=== PATIENT | female | born 1940 | race Caucasian/White ===

== ENCOUNTER 2019-01-02 13:27 | Emergency (ER) | payer MEDICARE, OTHER, SELFPAY ==
[2019-01-02 13:29] VITALS: BP 146/77; PULSE 86; RESP 16; TEMP 36.3; O2SAT 96; BMI 21.5
--- NOTE | 2019-01-02 13:48 | CT_ITS ---
STUDY: CT ABDOMEN AND PELVIS WITHOUT CONTRAST REASON FOR EXAM: Female, 78 years old. Abdominal pain. Bloody diarrhea. Patient has a history of colon cancer and ulcerative colitis. RADIATION DOSAGE (If Supplied By Facility): CTDIvol = ( 6.07 ) mGy, DLP = ( 311.92 ) mGycm TECHNIQUE: Transaxial images were obtained from the dome of the diaphragm to the symphysis pubis without oral contrast, and without intravenous contrast. Sagittal and coronal images were reconstructed. Individualized dose optimization techniques were used for this CT. COMPARISON: None. FINDINGS: Mild degree of increased linear markings at the lung bases suggestive of underlying atelectasis and/or possible linear scarring. The visualized portions of the heart are within normal limits. Normal liver. The patient is status post cholecystectomy. There are multiple benign calcified granulomata of the spleen. Normal pancreas. Normal bilateral adrenal glands. Normal right kidney. There is a 5.8 mm calculus in the lower pole calyx of the left kidney. Normal visualized stomach. Normal small intestine. There is diffuse circumferential wall thickening of the transverse colon extending from the region of the hepatic flexure to the splenic flexure suggestive of colitis. The patient is status post right hemicolectomy. The appendix is visualized and appears normal. Normal abdominal aorta. Normal inferior vena cava. Normal retroperitoneum. Normal urinary bladder. Normal abdominal wall. There are diffuse degenerative changes of the visualized lumbar spine. CT/Abdomen/Pelvis without Cont IMPRESSION: Status post cholecystectomy and right hemicolectomy. Findings suggestive of colitis involving the transverse colon. 5.8 mm nonobstructive calculus in the lower pole calyx of the left kidney. Electronically Signed: Ja Bailey, at 14:40 EDT , Service support ,
--- NOTE | 2019-01-02 13:56 | ED.DCSUM_ITS ---
- ER Visit Summary Date of Service: 01/02/19 Chief Complaint: Abdominal pain History of Present Illness: The patient is a 78 F who presents with abdominal pain that began yesterday. Patient states she noted some blood in her stools today. Patient describes her pain is cramping. Patient states her pain is diffuse. Patient admits to nausea but denies any vomiting. Patient states nothing makes her pain better or worse. Patient states she has noted some maroon stools. Patient denies any urinary complaints. Patient states she does have a history of ulcerative colitis. Physical Examination: Vital signs are stable. Patient is afebrile. Patient is in no acute distress. Oral mucosa is pink and moist. Neck is supple. Trachea is midline. Heart was regular rate and rhythm. Lungs are clear and equal bilateral. Abdomen is soft. Bowel sounds are normal. There is diffuse tenderness. There is no rebound or guarding noted. Cranial nerves II through XII are intact. There are no focal motor or sensory deficits noted. Test Results: CBC and conference of metabolic profile were within normal limits. Urinalysis showed leukocyte esterase of [address] but was [address] normal[address] scan of the abdomen and pelvis shows colitis of the transverse colon the hepatic flexure to the splenic flexure. Emergency Department Course and Treatment: Patient was given IV fluids and Zofran. Patient was given a prescription for prednisone. Patient states she does not need any antiemetics at this time. Patient was instructed to follow-up with primary care physician in 5-7 days. Patient was instructed on signs and symptoms which should prompt return to the emergency department. Patient and family understood and were agreeable with the plan. All questions were answered. Disposition: Discharge home Impression: Colitis, history of ulcerative colitis This note was generated with [employer] dictation software. It may contain incorrect words, spelling, and punctuation that were not noted in review of the chart prior to signing ED Disposition - Plan for ED Patient: Disposition: Home or Assisted Living Diagnosis: Colitis Instructions: ED Colitis Ulcerative Prescriptions: Prednisone [Deltasone] 60 mg PO DAILY #15 tab Referrals: [facility] Doctor,Out of [NON-STAFF] - 5-7 Days
[2019-01-02 14:02] LABS: Bacteria 0 SEEN /hpf (None Seen); Mucous, Urine 0 SEEN /hpf (<or=2+)
[2019-01-02 14:05] LABS: Absolute Lymphocyte Count 1.96 X10^3/ul (0.83-4.51); Basophil# 0.07 X10^3/uL; Basophil% 0.8 % (0-1); Eosinophil# 0.07 X10^3/uL; Eosinophils% 0.8 % (0-5); Hematocrit 47.3 % (37-47); Hemoglobin 14.9 g/dl (12.0-15.0); Lymphocyte # 1.96 X10^3/ul (4.0); Lymphocyte % 22.2 % (19-41); Mean Corp Hgb Conc 31.5 g/gl (32-36); Mean Corpuscular Hgb 29.3 pg (27.0-32.0); Mean Corpuscular Volume 93.1 fL (81-99); Mean Platelet Vol. 11.6 fl (6.2-12.0); Monocyte# 0.74 X10^3/uL; Monocyte% 8.4 % (0-10); Neutrophil # 5.96 X10^3/uL (2.7-7.7); Neutrophil % 67.5 % (47-70); Platelet Count 203 K/mm3 (150-450); RBC Distribution Width CV 13.9 % (11.6-14.6); RBC Distribution Width SD 46.2 fl (35.1-43.9); Red Blood Count 5.08 M/mm3 (4.2-5.4); White Blood Count 8.8 K/mm3 (4.4-11.0)
[2019-01-02 14:08] LABS: POSITIVE COUNT NO; POSITIVE DIFFERENTIAL NO; POSITIVE MORPHOLOGY NO
[2019-01-02 14:17] LABS: Color, Urine Yellow (Yellow); Glucose, Dipstick Normal (Normal); Ketone-Dipstick Negative (Negative); Leukocyte Esterase-Dipstick 100 /ul (Negative); Nitrite-Dipstick Negative (Negative); Occult Blood-Urine 10 /ul (Negative); Protein-Dipstick Negative (Negative); Urine Bilirubin Dipstick Negative (Negative); Urine Clarity Clear (Clear); Urine Urobilinogen Normal (Normal); Urine pH 6.5 (5.0 - 8.0)
[2019-01-02 14:19] LABS: Squamous Epithelial Cells - UA 0-5 SEEN /hpf (5-10)
[2019-01-02 14:20] LABS: ALB/GLOB Ratio 0.9 RATIO (0.9-2.4); AST(SGOT) 18 U/L (15-37); Alanine Aminotransfer ALT/SGPT 17 U/L (13-56); Albumin, Serum 3.6 g/dL (3.2-5.0); Alkaline Phosphatase 110 U/L (45-117); Anion Gap 3 (5-15); BUN 10 mg/dL (7-18); Calcium,Total 8.5 mg/dL (8.5-10.1); Chloride 107 mmol/L (98-107); Creatinine, Serum 0.91 mg/dL (0.55-1.02); EST Glomerular Filtration Rate 64 mL/min (>60); Est Glom Filt Rate - Afr Amer 77 mL/min (>60); Estimated Creatinine Clearance 44.71 ml/min; Globulin 3.8 g/dL (2.2-4.2); Glucose 87 mg/dL (74-106); Lipase 161 U/L (73-393); Potassium 3.9 mmol/L (3.5-5.1); Protein, Total 7.4 g/dL (6.4-8.2); Red Blood Cells-Urine 0-5 SEEN /hpf (0-5); Sodium Level 141 mmol/L (136-145); White Blood Cells 0-5 SEEN /hpf (0-5)
[2019-01-02 14:21] LABS: Prothrombin Time (Protime)PT. 12.6 SECONDS (11.7-14.9)
[2019-01-02 14:22] LABS: Partial Thromboplast Time 25.6 Seconds (24.1-36.2)
[2019-01-02 15:17] VITALS: PULSE 62; RESP 14; O2SAT 96
== END 2019-01-02 15:18 | disposition home or self-care (01) ==
PROVIDERS: Emergency Provider Emergency Medicine
DX: K51.90 Ulcerative colitis, unspecified, without complications (principal)
CPT/HCPCS: 74176; 80053; 81001; 83690; 85025; 85610; 85730; 99283; J7030

== ENCOUNTER 2019-01-09 17:22 | Emergency (ER) | payer MEDICARE, OTHER, SELFPAY ==
[2019-01-09 17:24] VITALS: BP 146/85; PULSE 92; RESP 16; TEMP 36.7; O2SAT 94; BMI 21.4
--- NOTE | 2019-01-09 17:57 | ED.DCSUM_ITS ---
- ER Visit Summary Date of Service: 01/09/19 Chief Complaint: Rectal bleeding History of Present Illness: The patient is a 78 F history of ulcerative colitis and prior GI bleeds. Also prior colon CA with prior appendectomy, cholecystectomy and hemicolectomy. Patient was in the ER 1-2 weeks ago was diagnosed with colitis and discharged to home. She is on no blood thinners. Is having left lower quadrant pain which she has had and had a CAT scan for a week or so ago. And is now having rectal bleeding with small clots. No hematemesis. No melena. Prior history of bleeding with her ulcerative colitis. She denies being on any type of blood thinner. Physical Examination: Older female no acute distress. Vital signs are stable and afebrile. HEENT exam unremarkable. Lungs clear to auscultation bilaterally. Heart regular rhythm rate in 90s. No murmur. Chest nontender. A bdomen soft. Nondistended. Normal bowel sounds. No peritoneal signs. She does have mild left lower quadrant tenderness. No hernias or masses. No signs of obstruction. Patient is moving all 4 extremities. No edema. Neurologically she is awake and alert with no focal motor deficits. Test Results: CBC shows a white count of 18 it is elevated but she just recently came off oral steroids for her colitis. Hemoglobin of 14 which is her baseline. Potassium 3.2 normal creatinine and gap. PT/INR normal with INR 1. I did review her prior CAT scan results from 01/02/2019. Emergency Department Course and Treatment: Patient with reported colitis with a history of ulcerative colitis. Also now with lower GI bleed. Repeat exam at 1940 patient is doing well. I went over her test results with her. Family and her comfortable being discharged home continue her current therapy. They understand if the bleeding gets worse or she develops black stool she needs to return. Treatment Plan: Follow-up as an outpatient your primary care physician. Continue current medications. Disposition: Discharge Impression: Lower GI bleed History of ulcerative colitis This note was generated with [employer] dictation software. It may contain incorrect words, spelling, and punctuation that were not noted in review of the chart prior to signing ED Disposition - Plan for ED Patient: Referrals: Care Physician,No Primary [Primary Care Provider] -
[2019-01-09 18:15] LABS: Absolute Lymphocyte Count 2.52 X10^3/ul (0.83-4.51); Absolute Neutrophil Count 14.3 X10^3/uL (2.0-7.7); Basophil# 0.05 X10^3/uL; Basophil% 0.3 % (0-1); Eosinophil# 0.15 X10^3/uL; Eosinophils% 0.8 % (0-5); Hematocrit 45.3 % (37-47); Hemoglobin 14.8 g/dl (12.0-15.0); Lymphocyte # 2.52 X10^3/ul (4.0); Lymphocyte % 13.5 % (19-41); Mean Corp Hgb Conc 32.7 g/gl (32-36); Mean Corpuscular Hgb 29.6 pg (27.0-32.0); Mean Corpuscular Volume 90.6 fL (81-99); Mean Platelet Vol. 11.5 fl (6.2-12.0); Monocyte# 1.63 X10^3/uL; Monocyte% 8.7 % (0-10); Neutrophil # 14.26 X10^3/uL (2.7-7.7); Neutrophil % 76.1 % (47-70); Platelet Count 232 K/mm3 (150-450); RBC Distribution Width CV 13.9 % (11.6-14.6); RBC Distribution Width SD 45.6 fl (35.1-43.9); White Blood Count 18.7 K/mm3 (4.4-11.0)
[2019-01-09 18:17] LABS: Differential Indicated SCAN CRITERIA MET; POSITIVE COUNT NO; POSITIVE DIFFERENTIAL YES; POSITIVE MORPHOLOGY NO
[2019-01-09 18:22] LABS: Prothrombin Time (Protime)PT. 12.8 SECONDS (11.7-14.9)
[2019-01-09 18:30] LABS: Anion Gap 7 (5-15); BUN 13 mg/dL (7-18); BUN/Creat Ratio 13.9 RATIO (10-20); Calcium,Total 8.4 mg/dL (8.5-10.1); Chloride 106 mmol/L (98-107); Creatinine, Serum 0.93 mg/dL (0.55-1.02); EST Glomerular Filtration Rate 62 mL/min (>60); Est Glom Filt Rate - Afr Amer 75 mL/min (>60); Estimated Creatinine Clearance 43.75 ml/min; Glucose 104 mg/dL (74-106); Potassium 3.2 mmol/L (3.5-5.1); Sodium Level 143 mmol/L (136-145)
[2019-01-09 18:45] LABS: Differential Comment SCANNED
[2019-01-09 19:38] VITALS: BP 139/72; PULSE 80; RESP 14; O2SAT 94
--- NOTE | 2019-01-09 19:47 | ED.DEP ---
ED Disposition - Plan for ED Patient: Disposition: Home or Assisted Living Instructions: ED Hematochezia Stable Referrals: Care Physician,No Primary [Primary Care Provider] - 3-5 Days if not improving Salvatore Hugo MD [STAFF PHYSICIAN] - As Needed Additional Instructions: Follow-up your primary care physician. Return to the emergency department if much heavier bleeding or black stool.
== END 2019-01-09 19:52 | disposition home or self-care (01) ==
PROVIDERS: Emergency Provider Emergency Medicine
DX: K92.2 Gastrointestinal hemorrhage, unspecified (principal); K51.90 Ulcerative colitis, unspecified, without complications; Z79.899 Other long term (current) drug therapy; Z85.038 Personal history of other malignant neoplasm of large intestine; Z87.442 Personal history of urinary calculi; Z90.49 Acquired absence of other specified parts of digestive tract
CPT/HCPCS: 80048; 85025; 85610; 86850; 86900; 99283; A4216

== ENCOUNTER 2019-01-15 15:31 | Emergency (ER) | payer MEDICARE, OTHER, SELFPAY ==
[2019-01-15 15:34] VITALS: BP 111/61; PULSE 77; PULSE 80; RESP 14; RESP 17; TEMP 37.1; O2SAT 96; O2SAT 97; BMI 22.2
--- NOTE | 2019-01-15 15:47 | CT_ITS ---
STUDY: CT ABDOMEN AND PELVIS WITH CONTRAST REASON FOR EXAM: Female, 78 years old. Nausea and vomiting RADIATION DOSAGE (If Supplied By Facility): CTDIvol = ( 12.21 ) mGy, DLP = ( 509.35 ) mGycm TECHNIQUE: Transaxial images were obtained from the dome of the diaphragm to the symphysis pubis without oral contrast. 100 IV/Oral Isovue 300 was administered. Sagittal and coronal images were reconstructed. Individualized dose optimization techniques were used for this CT. COMPARISON: 01/02/2019 FINDINGS: There are chronic interstitial fibrotic changes of the lung bases. The visualized portions of the heart are within normal limits. Normal liver. There are surgical clips in the gallbladder fossa consistent with a prior cholecystectomy. There are multiple benign calcified granulomata of the spleen. Normal pancreas. Normal bilateral adrenal glands. Normal right kidney. Normal left kidney. Stable nonobstructing stone in the lower pole the left kidney. Normal visualized stomach. Normal small intestine. There are multiple colonic diverticula consistent with diverticulosis. There is non-visualization of the appendix. There is diffuse atherosclerotic calcification of the abdominal aorta, without a demonstrated aneurysm. Normal inferior vena cava. Normal retroperitoneum. Normal urinary bladder. Uterus is still present, the endometrium cannot be accurately evaluated with CT. There are dilated vessels around the periphery of the uterus suggesting pelvic congestion. No suspicious cystic mass or free fluid. Normal abdominal wall. There are diffuse degenerative changes of the visualized lumbar spine, and pelvis CT/Abdomen/Pelvis WITH Contrast IMPRESSION: No suspicious solid organ abnormality, previous cholecystectomy. Stable left nephrolithiasis Chronic diverticulosis Uterus is still present, endometrium cannot be accurately evaluated with CT. Dilated pelvic vessels noted around the periphery of the uterus. Degenerative bony changes Electronically Signed: Mando López MD at 18:13 EDT , Service support ,
[2019-01-15] MEDS: 0.9% Normal Saline 1,000 ML 125 ML IV (16:14)
[2019-01-15] MEDS: Morphine 4 MG/ML Syringe IV (16:14)
[2019-01-15] MEDS: Ondansetron 4 MG/2 ML Vial IV (16:14)
[2019-01-15 16:23] LABS: Bacteria 0 SEEN /hpf (None Seen); Mucous, Urine 0 SEEN /hpf (<or=2+); Red Blood Cells-Urine 0 SEEN /hpf (0-5); Squamous Epithelial Cells - UA 0 SEEN /hpf (5-10); White Blood Cells 0 SEEN /hpf (0-5)
[2019-01-15 16:26] LABS: Absolute Neutrophil Count 14.4 X10^3/uL (2.0-7.7); Basophil# 0.07 X10^3/uL; Basophil% 0.4 % (0-1); Eosinophil# 0.18 X10^3/uL; Hematocrit 40.8 % (37-47); Hemoglobin 13.2 g/dl (12.0-15.0); Lymphocyte % 11.2 % (19-41); Mean Corp Hgb Conc 32.4 g/gl (32-36); Mean Corpuscular Hgb 29.1 pg (27.0-32.0); Mean Corpuscular Volume 89.9 fL (81-99); Mean Platelet Vol. 10.9 fl (6.2-12.0); Monocyte# 1.12 X10^3/uL; Monocyte% 6.3 % (0-10); Neutrophil # 14.43 X10^3/uL (2.7-7.7); Neutrophil % 80.8 % (47-70); POSITIVE COUNT NO; POSITIVE DIFFERENTIAL NO; POSITIVE MORPHOLOGY NO; Platelet Count 241 K/mm3 (150-450); RBC Distribution Width CV 13.9 % (11.6-14.6); RBC Distribution Width SD 44.8 fl (35.1-43.9); Red Blood Count 4.54 M/mm3 (4.2-5.4); White Blood Count 17.9 K/mm3 (4.4-11.0)
[2019-01-15 16:27] LABS: Anion Gap 4 (5-15); BUN 7 mg/dL (7-18); BUN/Creat Ratio 9.2 RATIO (10-20); Calcium,Total 8.3 mg/dL (8.5-10.1); Chloride 106 mmol/L (98-107); Creatinine, Serum 0.76 mg/dL (0.55-1.02); EST Glomerular Filtration Rate 78 mL/min (>60); Est Glom Filt Rate - Afr Amer 95 mL/min (>60); Estimated Creatinine Clearance 40.68 ml/min; Glucose 92 mg/dL (74-106); Lipase 116 U/L (73-393); Potassium 3.7 mmol/L (3.5-5.1); Sodium Level 140 mmol/L (136-145)
[2019-01-15 17:15] LABS: Color, Urine Yellow (Yellow); Glucose, Dipstick Normal (Normal); Ketone-Dipstick 5 mg/dl (Negative); Leukocyte Esterase-Dipstick Negative /ul (Negative); Nitrite-Dipstick Negative (Negative); Occult Blood-Urine 50 /ul (Negative); Protein-Dipstick Negative (Negative); Specific Gravity, Urine 1.005 (1.002-1.030); Urine Bilirubin Dipstick Negative (Negative); Urine Clarity Clear (Clear); Urine Urobilinogen Normal (Normal)
[2019-01-15 17:52] VITALS: BP 151/76; PULSE 77; RESP 18; O2SAT 96
[2019-01-15 18:24] VITALS: BP 127/52; PULSE 77; RESP 18; O2SAT 96
--- NOTE | 2019-01-15 19:37 | ED.VISSUMM ---
- ER Visit Summary Date of Service: 01/15/19 Chief Complaint: [Abdominal pain] History of Present Illness: The patient is a 78 F [presents to the emergency department complaint of abdominal pain that started 2 weeks ago. Patient rates her pain as a 9 out of 10 and describes it as sharp stabbing into the left side of her abdomen. Patient states the pain is been relatively continuous. Patient also complains of blood in her stool that is been bright red and having about 6-7 episodes of loose to watery bloody stool. Patient has history of ulcerative colitis and she thinks she is having a flareup. This is her third visit to the emergency department in the last 2 weeks for the same complaint. Patient denies any fever. She denies any vomiting. On her initial visit she had a CT scan of the abdomen pelvis that showed colitis of the left side of the colon. Patient was started on steroids for a week which she finished about a week ago. Patient does not feel like the steroids helped her. Patient sees a trawl net maker in the [facility] by the name of Dr. Beard and she has not followed up with him. Patient denies urinary symptoms.] Physical Examination: [HEENT-PERRLA, EOMI. Cranial nerves II through XII grossly intact. TMs clear. Mucous membranes moist. No adenopathy. Cardiovascular-regular rate and rhythm without murmur or ectopy Lungs-clear to auscultation, chest wall stable without crepitus or subcu emphysema Abdomen-normoactive bowel sounds, soft. Patient has tenderness to palpation over the left lower quadrant with guarding. There is no rebound, rigidity, or perineal signs. Extremities-intact ?4, normal range of motion, normal pulses, atraumatic] Test Results: [CBC with differential obtained showed an elevated white count of 17.9, hemoglobin 13, hematocrit 41, platelets 241. Chemistries unremarkable. Urinalysis was unremarkable. Lactate was 1.0. CT scan of the abdomen and pelvis with IV and p.o. contrast showed diverticulosis and congestion of pelvic vessels otherwise there is no evidence of abscess or perforation or evidence of colitis on the study.] Emergency Department Course and Treatment: [Patient initially was medicated with morphine and Zofran she had good pain relief with that. I did discuss case with surgeon on-call Dr. Matthews who evaluated patient and recommended she follow-up with her trawl net maker. I discussed admitting her for pain control here versus transfer to another facility where she could have GI evaluation given that this is her third visit to the emergency department. Patient would prefer to be transferred to her trawl net maker in [facility]. [facility] was contacted and I discussed case with who was the hospitalist on-call and accepted transfer patient to their facility.] Treatment Plan: [Transfer] Disposition: [Transfer] Impression: [Abdominal pain Lower GI bleed Ulcerative colitis] This note was generated with [employer] dictation software. It may contain incorrect words, spelling, and punctuation that were not noted in review of the chart prior to signing ED Disposition - Plan for ED Patient: Referrals: Care Physician,No Primary [Primary Care Provider] -
--- NOTE | 2019-01-15 19:42 | ED.DCSUM_ITS ---
- ER Visit Summary Date of Service: 01/15/19 Chief Complaint: [Abdominal pain] History of Present Illness: The patient is a 78 F [presents to the emergency department complaint of abdominal pain that started 2 weeks ago. Patient rates her pain as a 9 out of 10 and describes it as sharp stabbing into the left side of her abdomen. Patient states the pain is been relatively continuous. Patient also complains of blood in her stool that is been bright red and having about 6-7 episodes of loose to watery bloody stool. Patient has history of ulcerative colitis and she thinks she is having a flareup. This is her third visit to the emergency department in the last 2 weeks for the same complaint. Patient denies any fever. She denies any vomiting. On her initial visit she had a CT scan of the abdomen pelvis that showed colitis of the left side of the colon. Patient was started on steroids for a week which she finished about a week ago. Patient does not feel like the steroids helped her. Patient sees a podiatric physician in the [facility] by the name of Dr. Beard and she has not followed up with him. Patient denies urinary symptoms.] Physical Examination: [HEENT-PERRLA, EOMI. Cranial nerves II through XII grossly intact. TMs clear. Mucous membranes moist. No adenopathy. Cardiovascular-regular rate and rhythm without murmur or ectopy Lungs-clear to auscultation, chest wall stable without crepitus or subcu emphysema Abdomen-normoactive bowel sounds, soft. Patient has tenderness to palpation over the left lower quadrant with guarding. There is no rebound, rigidity, or perineal signs. Extremities-intact ?4, normal range of motion, normal pulses, atraumatic] Test Results: [CBC with differential obtained showed an elevated white count of 17.9, hemoglobin 13, hematocrit 41, platelets 241. Chemistries unremarkable. Urinalysis was unremarkable. Lactate was 1.0. CT scan of the abdomen and pelvis with IV and p.o. contrast showed diverticulosis and congestion of pelvic vessels otherwise there is no evidence of abscess or perforation or evidence of colitis on the study.] Emergency Department Course and Treatment: [Patient initially was medicated with morphine and Zofran she had good pain relief with that. I did discuss case with surgeon on-call Dr. Matthews who evaluated patient and recommended she follow-up with her podiatric physician. I discussed admitting her for pain control here versus transfer to another facility where she could have GI evaluation given that this is her third visit to the emergency department. Patient would prefer to be transferred to her podiatric physician in [facility]. [facility] was contacted and I discussed case with who was the hospitalist on-call and accepted transfer patient to their facility.] Treatment Plan: [Transfer] Disposition: [Transfer] Impression: [Abdominal pain Lower GI bleed Ulcerative colitis] This note was generated with [employer] dictation software. It may contain incorrect words, spelling, and punctuation that were not noted in review of the chart prior to signing ED Disposition - Plan for ED Patient: Referrals: Care Physician,No Primary [Primary Care Provider] -
[2019-01-15 20:22] VITALS: BP 128/61; PULSE 76; RESP 16; O2SAT 97
[2019-01-15 22:05] VITALS: BP 129/72; PULSE 84; RESP 14; O2SAT 96
== END 2019-01-15 22:07 | disposition short-term general hospital (02) ==
PROVIDERS: Emergency Provider Emergency Medicine
DX: K51.90 Ulcerative colitis, unspecified, without complications (principal); K57.90 Diverticulosis of intestine, part unspecified, without perforation or abscess without bleeding
CPT/HCPCS: 74177; 80048; 81001; 83605; 83690; 85025; 86850; 86900; 96361; 96374; 96375; 99285; Q9967; A4216; J2405

== ENCOUNTER 2021-06-12 09:11 | Emergency (ER) | payer MEDICARE, OTHER, SELFPAY ==
[2021-06-12 09:13] VITALS: BP 119/64; PULSE 73; RESP 14; TEMP 36.9; O2SAT 98; BMI 19.1
--- NOTE | 2021-06-12 09:39 | CT_ITS ---
STUDY: CT ABDOMEN AND PELVIS WITH CONTRAST REASON FOR EXAM: Female, 81 years old. abdominal pain, blood in stool RADIATION DOSAGE (If Supplied By Facility): CTDIvol = ( 6.75 ) mGy, DLP = ( 321.5 ) mGycm TECHNIQUE: Transaxial images were obtained from the dome of the diaphragm to the symphysis pubis without oral contrast. IV 100mL Isovue-370 was administered. Sagittal and coronal images were reconstructed. Individualized dose optimization techniques were used for this CT. COMPARISON: 01/15/2019 FINDINGS: Some bibasilar linear scarring. The visualized portions of the heart are within normal limits. Normal liver. Normal gallbladder and extrahepatic biliary system. Normal spleen. Normal pancreas. Normal bilateral adrenal glands. Normal right kidney. Normal left kidney. Normal visualized stomach. Normal small intestine. Suture line at the rectosigmoid junction. There is non-visualization of the appendix. Normal abdominal aorta. Normal inferior vena cava. Normal retroperitoneum. Normal urinary bladder. Normal abdominal wall. Normal osseous structures. CT/Abdomen/Pelvis W IV Cont ONLY IMPRESSION: Normal enhanced CT of the abdomen and pelvis. Electronically Signed: Tone David MD at 12:09 EDT Tel , Service support ,
--- NOTE | 2021-06-12 09:42 | EDS_ITS ---
HPI HPI - GI History of Present Illness Chief Complaint: GI Bleed Detail of Chief Complaint: Abdominal pain and rectal bleeding that started 2 days ago Informant: patient Narrative Narrative: Patient presents to the emergency department complaint of abdominal pain, diarrhea, and blood in her stools. Patient states that her symptoms started 2 days ago. Patient is here visiting her son. She has history of irritable bowel syndrome and history of diverticulitis. Patient states her last colonoscopy was about 2 years ago and she had some polyps. Patient states that this morning she passed some larger clots and had bright red blood in her watery stool. Patient states she oftentimes has watery stools and oftentimes will have blood in her stool. She denies any fevers. Patient has had her Covid vaccine. She denies any cough. She denies body aches. She denies recent antibiotic usage. Patient denies recent travel. [facility] Medical History (Updated 06/12/21 @ 13:[address] Mirella Gomez DO) IBS (irritable bowel syndrome) Home Medications mesalamine 2.4 g PO DAILY 01/02/19 [History Last Taken Unknown] dicyclomine 20 mg PO BID PRN #10 tab 06/12/21 [Rx Last Taken Unknown] Allergy/AdvReac Type Severity Reaction Status Date / Time amoxicillin [From Augmentin] AdvReac Vomiting Verified 06/12/21 09:17 clavulanic acid AdvReac Vomiting Verified 06/12/21 09:17 [From Augmentin] fexofenadine [From Rose] AdvReac Other Verified 06/12/21 09:17 hydrocodone AdvReac Other Verified 06/12/21 09:17 Sulfa (Sulfonamide AdvReac Rash Verified 06/12/21 09:17 Antibiotics) Social History Smoking Status: Never smoker ROS ROS ED Constitutional Constitutional ED: Reports systems reviewed and no addt'l complaints, except as documented; Denies body ache(s), change in weight or chills Eyes Eyes: Denies acute decrease in peripheral vision, change in vision, double vision or loss of vision ENT ENT ED: Reports none; Denies ear pain, lip swelling, loss taste/smell, neck pain, otalgia or sore throat Cardiovascular Cardiovascular: Reports none; Denies abdominal pain, chest pain with activity, leg edema, lightheadedness, palpitations, rapid heart rate or syncope Respiratory/Chest Respiratory/Chest: Reports none; Denies change in mental status, dry cough, dyspnea, hemoptysis, shortness of breath at rest or shortness of breath with exertion Gastrointestinal Gastrointestinal: Reports none, diarrhea, nausea and other Details: Bright red blood in stool with clots ; Denies abdominal pain, change in stool character, hematemesis, hematochezia, melena, rectal bleeding or vomiting Genitourinary Genitourinary ED: Reports none; Denies abdominal discomfort, anuria, dysuria, genital pain or polyuria Musculoskeletal Musculoskeletal: Reports none; Denies arthralgias, back pain, difficulty walking, extremity pain, muscle weakness or myalgias Integumentary Reports none; Denies abscess or rash Neurologic Neurologic: Reports none; Denies abnormal gait, confusion, focal weakness, frequent falls, headache(s), loss of vision, numbness, paresthesias, radicular pain, vertigo or weakness Psychiatric Psychiatric: Reports systems reviewed and no addt'l complaints, except as documented and none; Denies behavioral changes, confusion, difficulty concentrating, hallucinations, suicidal ideation, tactile hallucinations or visual hallucinations Endocrine Endocrinology: Denies none, cold intolerance, excessive sweating, fatigue or heat intolerance Hematologic/Lymphatic Hematologic/Lymphatic: Reports none; Denies anemia, easy bleeding or easy bruising Allergic/Immunologic Allergic/Immunologic ED: Denies as per HPI, none, lip swelling, mouth swelling, throat swelling, tongue swelling or hives EXAM Physical Exam Const Vital Signs: 06/12/21 09:13 06/12/21 10:25 06/12/21 11:48 Temperature 98.4 F 97.3 F L Temperature Source Temporal Temporal Pulse Rate 73 64 Respiratory Rate 14 12 Blood Pressure 119/64 132/56 H Blood Pressure Mean 82 81 Pulse Ox 98 95 100 Oxygen Delivery Method Room Air Nasal Cannula Nasal Cannula Oxygen Flow Rate (L/min) 2 2 06/12/21 13:06 06/12/21 13:18 Temperature Temperature Source Pulse Rate 68 Respiratory Rate 22 H Blood Pressure 108/54 L Blood Pressure Mean 72 Pulse Ox 100 98 Oxygen Delivery Method Nasal Cannula Room Air Oxygen Flow Rate (L/min) 2 Positive well nourished and well developed General Appearance ED: well developed and NAD HEENT Reports TM's clear and moist mucous membranes normocephalic and atraumatic; Negative for trauma or tenderness Tympanic Membrane ED: Yes TM's clear Eyes PERRL and EOMs intact bilaterally General Eye ED: Negative for pale conjunctiva or scleral icterus Neck no lymphadenopathy, supple and no JVD General: Negative for tenderness Chest Wall inspection of chest normal and palpation of chest normal Chest: Negative for tenderness Resp normal respiratory effort and clear to auscultation bilaterally Effort and Inspection: Negative for respiratory distress or pain with movement Auscultation: Negative for rhonchi, wheezes or diminished lung sounds Cardio regular rate, regular rhythm, S1 normal heart sound, S2 normal heart sound and no murmurs Peripheral Pulses: pulses 2+ throughout GI normal to inspection, nondistended, normoactive bowel sounds, soft to palpation, non-distended and no masses GI Narrative: Patient has diffuse tenderness palpation but seems to localize more to the left lower quadrant. She got some mild guarding. There is no rebound, rigidity, or peritoneal signs. Back/Spine no CVA tenderness and no thoracic nor lumbar tenderness Extremity normal to inspection General Extremety ED: Negative for edema General Extremity: Negative for edema Neuro oriented x3, CN's II-XII intact bilaterally, no sensory deficits noted and gait normal Sensorium / Orientation: awake, alert, oriented to person, oriented to place and oriented to time Motor Exam: strength 5/5 throughout and strength abnormal Psych mental status grossly normal Skin no rashes or lesions noted and no wounds MDM MDM MDM Narrative Medical decision making narrative: Patient's work-up relatively unremarkable in the department. Etiology of her diarrhea is unclear although may be related to IBS. On digital rectal exam here the stool was brown and there was no gross blood present. There were no hemorrhoids. CT scan of her abdomen pelvis was unremarkable. At this point I feel he can be safely discharged to home with instructions to follow-up with her marketing operations specialist or family doctor within next 3 to 5 days. Patient to return if persistent heavy bleeding or passing clots. Worsening pain or fever or condition should worsen in any way. Lab Data Attestation: I reviewed the patient's lab results. Labs: Laboratory Results - last 24 hr 06/12/21 06/12/21 06/12/21 10:03 10:03 10:03 WBC 13.9 H RBC 4.68 Hgb 13.5 Hct 41.2 MCV 88.0 MCH 28.8 MCHC 32.8 RDW Std Deviation 42.6 RDW Coeff of Rhonda 13.2 Plt Count 277 MPV 10.5 Immature Gran % (Auto) 0.600 Neut % (Auto) 77.5 H Lymph % (Auto) 14.0 L [place] % (Auto) 6.7 Eos % (Auto) 0.6 Baso % (Auto) 0.6 Absolute Neuts (auto) 10.7 H Absolute Lymphs (auto) 1.94 Nucleated RBC % 0 Sodium 137 Potassium 3.7 Chloride 105 Carbon Dioxide 27.0 Anion Gap 5 BUN 8 Creatinine 0.82 Estim Creat Clear Calc 43.80 Est GFR (MDRD) Af Amer 86 Est GFR (MDRD) Non-Af 71 BUN/Creatinine Ratio 9.7 L Glucose 87 Lactic Acid Calcium 8.5 Urine Color Urine Clarity Urine pH Ur Specific [place] Urine Protein Urine Glucose (UA) Urine Ketones Urine Occult Blood Urine Nitrite Urine Bilirubin Urine Urobilinogen Ur Leukocyte Esterase Urine RBC Urine WBC Ur Squamous Epith Cells Urine Bacteria Urine Mucus Blood Type O POSITIVE Antibody Screen NEGATIVE 06/12/21 06/12/21 10:03 11:40 WBC RBC Hgb Hct MCV MCH MCHC RDW Std Deviation RDW Coeff of Rhonda Plt Count MPV Immature Gran % (Auto) Neut % (Auto) Lymph % (Auto) [place] % (Auto) Eos % (Auto) Baso % (Auto) Absolute Neuts (auto) Absolute Lymphs (auto) Nucleated RBC % Sodium Potassium Chloride Carbon Dioxide Anion Gap BUN Creatinine Estim Creat Clear Calc Est GFR (MDRD) Af Amer Est GFR (MDRD) Non-Af BUN/Creatinine Ratio Glucose Lactic Acid 1.1 Calcium Urine Color Yellow Urine Clarity Sl. Cloudy Urine pH 7.0 Ur Specific [place] 1.010 Urine Protein 30 H Urine Glucose (UA) Normal Urine Ketones 150 A* Urine Occult Blood 250 H Urine Nitrite Negative Urine Bilirubin Negative Urine Urobilinogen Normal Ur Leukocyte Esterase 25 H Urine RBC 25-50 SEEN Urine WBC 0-5 SEEN Ur Squamous Epith Cells 0-5 SEEN Urine Bacteria RARE Urine Mucus 0 SEEN Blood Type Antibody Screen Radiography Diagnostic Testing: Radiology Impression Abdomen/Pelvis CT 06/12/21 09:39 IMPRESSION: Normal enhanced CT of the abdomen and pelvis. Electronically Signed: Tone David MD at 12:09 EDT Tel , Service support , Discharge Plan Triage Chief Complaint: GI Bleed Other Complaint: Nausea/Vomiting/Diarrhea ED Provider: Mirella Gomez Dx/Rx/DC Orders Clinical Impression: Diarrhea, GI bleed Instructions: ED Diarrhea, Unknown Cause, ED Lower GI Bleeding (Stable) Prescriptions: New dicyclomine 20 mg tablet 20 mg PO BID PRN (Reason: Cramping) Qty: 10 RF: 0 No Action mesalamine 1.2 GM tablet 2.4 g PO DAILY RF: 0 Primary Care Provider: Care Physician,No Primary Referrals: Care Physician,No Primary [Primary Care Provider] - Activity Restrictions/Additional Instructions: Follow-up with your primary care physician or marketing operations specialist within the next 3 to 5 days. Disposition Disposition: Home, Self Care
[2021-06-12] MEDS: 0.9% Normal Saline 1,000 ML 125 ML IV (10:19)
[2021-06-12 10:25] VITALS: O2SAT 75; O2SAT 95
[2021-06-12 10:25] LABS: Absolute Lymphocyte Count 1.94 X10^3/uL (0.83-4.51); Absolute Neutrophil Count 10.7 X10^3/uL (2.0-7.7); Basophil# 0.08 X10^3/uL; Basophil% 0.6 % (0-1); Eosinophil# 0.09 X10^3/uL; Eosinophils% 0.6 % (0-5); Hematocrit 41.2 % (37-47); Hemoglobin 13.5 g/dL (12.0-15.0); Lymphocyte # 1.94 X10^3/ul (0.83-4.51); Mean Corp Hgb Conc 32.8 g/dL (32-36); Mean Corpuscular Hgb 28.8 pg (27.0-32.0); Mean Platelet Vol. 10.5 fl (6.2-12.0); Monocyte# 0.93 X10^3/uL; Monocyte% 6.7 % (0-10); NRBC Flagged by Analyzer 0 % (0-5); Neutrophil # 10.72 X10^3/uL (2.7-7.7); Neutrophil % 77.5 % (47-70); Platelet Count 277 K/mm3 (150-450); RBC Distribution Width CV 13.2 % (11.6-14.6); RBC Distribution Width SD 42.6 fl (35.1-43.9); Red Blood Count 4.68 M/mm3 (4.2-5.4); White Blood Count 13.9 K/mm3 (4.4-11.0)
[2021-06-12 10:41] LABS: Anion Gap 5 (5-15); BUN 8 mg/dL (7-18); BUN/Creat Ratio 9.7 RATIO (10-20); Calcium,Total 8.5 mg/dL (8.5-10.1); Chloride 105 mmol/L (98-107); Creatinine, Serum 0.82 mg/dL (0.55-1.02); EST Glomerular Filtration Rate 71 mL/min (>60); Est Glom Filt Rate - Afr Amer 86 mL/min (>60); Glucose 87 mg/dL (74-106); Potassium 3.7 mmol/L (3.5-5.1); Sodium Level 137 mmol/L (136-145)
[2021-06-12 10:48] LABS: Lactic Acid 1.1 mmol/L (0.4-1.9)
[2021-06-12 11:48] VITALS: BP 132/56; PULSE 64; RESP 12; TEMP 36.3; O2SAT 100
[2021-06-12 11:50] LABS: Mucous, Urine 0 SEEN /hpf (<or=2+)
[2021-06-12 11:51] LABS: Color, Urine Yellow (Yellow); Glucose, Dipstick Normal (Normal); Leukocyte Esterase-Dipstick 25 /ul (Negative); Nitrite-Dipstick Negative (Negative); Occult Blood-Urine 250 /ul (Negative); Protein-Dipstick 30 mg/dl (Negative); Urine Bilirubin Dipstick Negative (Negative); Urine Clarity Sl. Cloudy (Clear); Urine Urobilinogen Normal (Normal)
[2021-06-12 11:56] LABS: Ketone-Dipstick 150 mg/dl (Negative)
[2021-06-12 12:03] LABS: Bacteria RARE /hpf (None Seen); Red Blood Cells-Urine 25-50 SEEN /hpf (0-5); Squamous Epithelial Cells - UA 0-5 SEEN /hpf (5-10); White Blood Cells 0-5 SEEN /hpf (0-5)
[2021-06-12 13:06] VITALS: BP 108/54; PULSE 68; RESP 22; O2SAT 100
[2021-06-12 13:18] VITALS: O2SAT 98
[2021-06-12 14:13] VITALS: BP 111/60; PULSE 87; RESP 12; O2SAT 97
== END 2021-06-12 14:13 | disposition home or self-care (01) ==
PROVIDERS: Emergency Provider Emergency Medicine
DX: K92.2 Gastrointestinal hemorrhage, unspecified (principal); R19.7 Diarrhea, unspecified; K58.9 Irritable bowel syndrome, unspecified; Z87.19 Personal history of other diseases of the digestive system
CPT/HCPCS: 74177; 80048; 81001; 83605; 85025; 86850; 86900; 86901; 96360; 96361; 99285; J7030; Q9967; A4216

== ENCOUNTER 2021-08-10 14:11 | Observation (INO) | payer MEDICARE, OTHER, SELFPAY ==
[2021-08-10] VITALS (8 sets, daily range): BP systolic 110–125; BP diastolic 47–90; PULSE 67–104; RESP 14–20; TEMP 36.2–36.9; O2SAT 95–99; BMI 20.5
--- NOTE | 2021-08-10 15:26 | RAD_ITS ---
STUDY: X-RAY CHEST REASON FOR EXAM: Female, 81 years old. syncope/mediastinal eval TECHNIQUE: Single AP portable view of the chest. COMPARISON: None. FINDINGS: The lungs are clear and expanded. There is no demonstrated pleural abnormality. Normal size heart. Normal mediastinum and stephanie. Normal visualized pulmonary arteries. Normal visualized aortic arch and descending thoracic aorta. Normal visualized thoracic spine. Normal visualized ribs, clavicles, and shoulders. There is no demonstrated abnormality of the visualized soft tissue structures of the upper abdomen. RAD/Chest 1 View (Portable) IMPRESSION: Normal x-ray examination of the chest. Electronically Signed: Freda Dotson MD at 16:28 EDT Tel , Service support ,
--- NOTE | 2021-08-10 15:26 | CT_ITS ---
EXAM: CT ABDOMEN AND PELVIS WITHOUT INTRAVENOUS CONTRAST CLINICAL INDICATION: LUQ pain, syncope TECHNIQUE: Helically acquired images were obtained of the abdomen and pelvis without intravenous contrast. This CT exam was performed using one or more of the following dose reduction techniques: automated exposure control, adjustment of the mA and/or kV according to patient size, and/or use of iterative reconstruction technique. This report was created using [employer] report generation technology. COMPARISON: 06/12/2021. FINDINGS: LOWER THORAX: Unremarkable. Lung bases are clear. No cardiomegaly. No significant pericardial effusion. ABDOMEN: LIVER: Unremarkable. Homogeneous. GALLBLADDER AND BILE DUCTS: Unremarkable. No calcified gallstones. No gallbladder distention or wall edema. No intra- or extrahepatic biliary ductal dilation. PANCREAS: Unremarkable. No focal cystic mass. SPLEEN: Multiple splenic granulomata. The spleen is otherwise unremarkable. ADRENALS: Unremarkable. No nodules. KIDNEYS AND URETERS: Unremarkable. Normal renal size and position. No hydronephrosis. STOMACH AND BOWEL: Unremarkable. No stomach or bowel distention. No focal inflammatory change. Prior rectal anastomosis. PELVIS: APPENDIX: No evidence of acute appendicitis. BLADDER: Unremarkable. REPRODUCTIVE: Unremarkable as visualized. No mass. ABDOMEN and PELVIS: INTRAPERITONEAL SPACE: Unremarkable. No ascites or other fluid collection. No free air. BONES/JOINTS: Unremarkable. No suspicious lytic or blastic abnormality. SOFT TISSUES: Unremarkable. No discrete abdominal or pelvic wall hernia. VASCULATURE: Unremarkable. Abdominal aorta is normal in caliber. LYMPH NODES: Shotty mesenteric adenopathy. CT/Abdomen/Pelvis without Cont IMPRESSION: 1. No acute findings. 2. Old granulomatous disease. 3. Shotty adenopathy. Electronically Signed: Freda Dotson MD at 16:50 EDT Tel , Service support ,
--- NOTE | 2021-08-10 15:27 | EKG12_ITS ---
Test Reason : SYNCOPE Blood Pressure : / mmHG Vent. Rate : 064 BPM Atrial Rate : 064 BPM P-R Int : 142 ms QRS Dur : 062 ms QT Int : 428 ms P-R-T Axes : 048 055 106 degrees QTc Int : 441 ms Normal sinus rhythm Low voltage QRS (Limb Leads) Septal infarct , age undetermined Abnormal ECG Confirmed by LUCIANA MCCONNELL, KELLEN ([id number]), makeup editor GAYATRI OROZCO ([id number]) on 08/12/2021 8:27:01 AM Referred By: SHANNON Confirmed By:KELLEN CHOWDHURY MD
--- NOTE | 2021-08-10 15:30 | EX.ED.DYSGE1 ---
HPI History of Present Illness Chief Complaint: Syncope Informant: patient Onset/Context/Timing Onset: Hours (2) Context: Gradual Onset Timing: Intermittent (once) and Lasts (brief) Quality: lightheaded --> syncope Current Severity: Gone Maximum Severity: Severe Worsened by: nothing in particular Relieved by: time Associated Symptoms Associated Symptoms: malaise now and LUQ abd pain Narrative Narrative: Patient was in her home, she states she was not sure exactly what she was doing at the time, maybe folding laundry, nothing very exertional, she started feeling lightheaded, she went to sit down on the couch as it continuously progressed and she passed out, woke up lying on the couch. No fall or injury. She now feels malaised and has left upper quadrant abdominal pain which she gets not infrequently due to irritable bowel syndrome for which she is on medication. She has no other medical problems. Family states she has had vagal reactions in the past, unknown if they have had obvious triggers or not. Patient denies have any abdominal pain or GI symptoms prior to passing out. [facility] Medical History History of colon cancer IBS (irritable bowel syndrome) Home Medications mesalamine 2.4 g PO DAILY 01/02/19 [History Last Taken 08/09/21] Allergy/AdvReac Type Severity Reaction Status Date / Time amoxicillin [From Augmentin] AdvReac Vomiting Verified 08/10/21 15:14 clavulanic acid AdvReac Vomiting Verified 08/10/21 15:14 [From Augmentin] fexofenadine [From Rose] AdvReac Other Verified 08/10/21 15:14 hydrocodone AdvReac Other Verified 08/10/21 15:14 Sulfa (Sulfonamide AdvReac Rash Verified 08/10/21 15:14 Antibiotics) Surgical History (Updated 08/10/21 @ 15:16 by Maritza Charles) H/O colectomy Social History Smoking Status: Never smoker ROS ROS ED Constitutional Constitutional ED: Reports as per HPI and malaise; Denies chills or fever(s) Eyes Eyes: Denies change in vision or diplopia ENT ENT ED: Denies rhinorrhea or sore throat Cardiovascular Cardiovascular: Denies chest pain or palpitations Respiratory/Chest Respiratory/Chest: Denies cough or dyspnea Gastrointestinal Gastrointestinal: Reports abdominal pain; Denies diarrhea, nausea or vomiting Genitourinary Genitourinary ED: Denies dysuria or hematuria Musculoskeletal Musculoskeletal: Denies back pain or neck pain Integumentary Denies abscess or rash Neurologic Neurologic: Denies headache(s), paresthesias or weakness Psychiatric Psychiatric: Denies anxiety or suicidal thoughts EXAM Physical Exam Const Vital Signs: 08/10/21 14:13 08/10/21 15:15 08/10/21 17:06 Temperature 97.1 F L Temperature Source Temporal Pulse Rate 68 71 Respiratory Rate 18 14 Respiratory Effort Normal Respiratory Pattern Normal Blood Pressure 120/47 L 125/58 H Blood Pressure Mean 71 80 Pulse Ox 99 95 Oxygen Delivery Method Room Air Room Air Positive well nourished and well developed General Appearance ED: well developed and NAD HEENT Reports moist mucous membranes normocephalic and atraumatic Eyes PERRL and EOMs intact bilaterally Neck full ROM and supple Resp normal respiratory effort and clear to auscultation bilaterally Cardio regular rate, regular rhythm and no murmurs GI non-distended GI Narrative: Tenderness epigastrium and into left upper quadrant, and left mid abdomen. No other areas of tenderness. No pulsatile mass palpable. Good pulses in the feet. No guarding or rebound. Auscultation: normoactive bowel sounds Palpation: soft Back/Spine no CVA tenderness General Back: other FROM Extremity normal to inspection General Extremety ED: Negative for edema, pulses abnormal or tenderness General Extremity: Negative for edema or pulses abnormal Neuro oriented x3, CN's II-XII intact bilaterally and no sensory deficits noted Sensorium / Orientation: awake and alert Motor Exam: strength 5/5 throughout Skin no rashes or lesions noted and no wounds MDM MDM MDM Narrative Medical decision making narrative: Work-up shows a leukocytosis with no objective signs of infection, and her D-dimer is significantly elevated, which was performed to screen for pulmonary embolus as cause for her unexplained syncope. CT of the abdomen/pelvis was obtained given her abdominal pain, there is no evidence of AAA or any other acute abnormality, and CT angiography the chest is negative for pulmonary embolus. Given her lack of thoracic symptoms, I think this is likely accurate. Her EKG and troponin are normal/nonacute, and she had no telemetry events. Plan will be for admission to observation. Lab Data Attestation: I reviewed the patient's lab results. Labs: Laboratory Results - last 24 hr 08/10/21 08/10/21 08/10/21 15:00 15:38 15:38 WBC 18.1 H RBC 4.43 Hgb 12.4 Hct 40.0 MCV 90.3 MCH 28.0 MCHC 31.0 L RDW Std Deviation 44.8 H RDW Coeff of Rhonda 13.5 Plt Count 324 MPV 9.9 Immature Gran % (Auto) 0.400 Neut % (Auto) 82.5 H Lymph % (Auto) 10.0 L [place] % (Auto) 6.0 Eos % (Auto) 0.5 Baso % (Auto) 0.6 Absolute Neuts (auto) 14.9 H Absolute Lymphs (auto) 1.81 Nucleated RBC % 0 D-Dimer Quant (PE/DVT) 2.77 H* Sodium Potassium Chloride Carbon Dioxide Anion Gap BUN Creatinine Estim Creat Clear Calc Est GFR (MDRD) Af Amer Est GFR (MDRD) Non-Af BUN/Creatinine Ratio Glucose Calcium Total Bilirubin AST ALT Alkaline Phosphatase Troponin I High Sens Total Protein Albumin Globulin Albumin/Globulin Ratio Urine Color Yellow Urine Clarity Clear Urine pH 7.0 Ur Specific [place] 1.010 Urine Protein 30 H Urine Glucose (UA) Normal Urine Ketones Negative Urine Occult Blood 25 H Urine Nitrite Negative Urine Bilirubin Negative Urine Urobilinogen Normal Ur Leukocyte Esterase 100 H Urine RBC 0 SEEN Urine WBC 0-5 SEEN Ur Squamous Epith Cells 0 SEEN Urine Bacteria 0 SEEN Urine Mucus 0 SEEN 08/10/21 15:38 WBC RBC Hgb Hct MCV MCH MCHC RDW Std Deviation RDW Coeff of Rhonda Plt Count MPV Immature Gran % (Auto) Neut % (Auto) Lymph % (Auto) [place] % (Auto) Eos % (Auto) Baso % (Auto) Absolute Neuts (auto) Absolute Lymphs (auto) Nucleated RBC % D-Dimer Quant (PE/DVT) Sodium 141 Potassium 4.1 Chloride 110 H Carbon Dioxide 27.0 Anion Gap 4 L BUN 7 Creatinine 0.77 Estim Creat Clear Calc 38.56 Est GFR (MDRD) Af Amer 93 Est GFR (MDRD) Non-Af 77 BUN/Creatinine Ratio 9.1 L Glucose 95 Calcium 8.0 L Total Bilirubin 0.40 AST 12 L ALT 9 L Alkaline Phosphatase 103 Troponin I High Sens 7 Total Protein 6.5 Albumin 2.5 L Globulin 4.0 Albumin/Globulin Ratio 0.6 L Urine Color Urine Clarity Urine pH Ur Specific [place] Urine Protein Urine Glucose (UA) Urine Ketones Urine Occult Blood Urine Nitrite Urine Bilirubin Urine Urobilinogen Ur Leukocyte Esterase Urine RBC Urine WBC Ur Squamous Epith Cells Urine Bacteria Urine Mucus Radiography Diagnostic Testing: Clinical Impression(s) from Imaging Studies Abdomen/Pelvis CT 08/10/21 15:26 IMPRESSION: 1. No acute findings. 2. Old granulomatous disease. 3. Shotty adenopathy. Electronically Signed: Freda Dotson MD at 16:50 EDT Tel , Service support , Chest X-Ray 08/10/21 15:26 IMPRESSION: Normal x-ray examination of the chest. Electronically Signed: Freda Dotson MD at 16:28 EDT Tel , Service support , Chest CTA 08/10/21 16:13 IMPRESSION: Mild fibroatelectatic changes, otherwise negative CTA of the chest. Electronically Signed: Freda Dotson MD at 17:06 EDT Tel , Service support , Rhythm Strip Rhythm Strip: Sinus Rhythm Rate: 76 Ectopy: None EKG Initial EKG: Attestation: I personally reviewed and interpreted this EKG as follows: Interpretation: Sinus Rhythm and No Acute Injury Pattern Comments: Anterior septal Q waves with some flattened T waves and without acute ischemic abnormalities. Low voltage relatively. No electrical alternans. Normal axis. Normal intervals. Prior: No Prior Discharge Plan Triage Chief Complaint: Syncope ED Provider: Reynold Win Dx/Rx/DC Orders Clinical Impression: Syncope, Leukocytosis Prescriptions: No Action mesalamine 1.2 GM tablet 2.4 g PO DAILY RF: 0 Primary Care Provider: Care Physician,No Primary Referrals: Care Physician,No Primary [Primary Care Provider] - Disposition Disposition: Acute Care Hospital
[2021-08-10 15:56] LABS: Absolute Lymphocyte Count 1.81 X10^3/uL (0.83-4.51); Absolute Neutrophil Count 14.9 X10^3/uL (2.0-7.7); Basophil% 0.6 % (0-1); Eosinophil# 0.09 X10^3/uL; Eosinophils% 0.5 % (0-5); Hemoglobin 12.4 g/dL (12.0-15.0); Lymphocyte # 1.81 X10^3/ul (0.83-4.51); Mean Corpuscular Volume 90.3 fL (81-99); Mean Platelet Vol. 9.9 fl (6.2-12.0); Monocyte# 1.09 X10^3/uL; NRBC Flagged by Analyzer 0 % (0-5); Neutrophil # 14.89 X10^3/uL (2.7-7.7); Neutrophil % 82.5 % (47-70); Platelet Count 324 K/mm3 (150-450); RBC Distribution Width CV 13.5 % (11.6-14.6); RBC Distribution Width SD 44.8 fl (35.1-43.9); Red Blood Count 4.43 M/mm3 (4.2-5.4); White Blood Count 18.1 K/mm3 (4.4-11.0)
[2021-08-10 16:09] LABS: ALB/GLOB Ratio 0.6 RATIO (0.9-2.4); AST(SGOT) 12 U/L (15-37); Alanine Aminotransfer ALT/SGPT 9 U/L (13-56); Albumin, Serum 2.5 g/dL (3.2-5.0); Alkaline Phosphatase 103 U/L (45-117); Anion Gap 4 (5-15); BUN 7 mg/dL (7-18); BUN/Creat Ratio 9.1 RATIO (10-20); Chloride 110 mmol/L (98-107); Creatinine, Serum 0.77 mg/dL (0.55-1.02); EST Glomerular Filtration Rate 77 mL/min (>60); Est Glom Filt Rate - Afr Amer 93 mL/min (>60); Estimated Creatinine Clearance 38.56 ml/min; Glucose 95 mg/dL (74-106); Potassium 4.1 mmol/L (3.5-5.1); Protein, Total 6.5 g/dL (6.4-8.2); Sodium Level 141 mmol/L (136-145); Troponin-I HS 7 pg/mL (3.0-54.0)
[2021-08-10 16:11] LABS: D-Dimer Quantitative (DVT/PE) 2.77 FEU/ug/m (0.27-0.49)
--- NOTE | 2021-08-10 16:13 | CT_ITS ---
EXAM: CT ANGIOGRAPHY CHEST WITHOUT AND WITH INTRAVENOUS CONTRAST CLINICAL INDICATION: syncope, abnormal d-dimer TECHNIQUE: Helically acquired angiography images were obtained of the chest without and with intravenous contrast. This CT exam was performed using one or more of the following dose reduction techniques: automated exposure control, adjustment of the mA and/or kV according to patient size, and/or use of iterative reconstruction technique. This report was created using [employer] report generation technology. MIP reconstructed images were created and reviewed. CONTRAST: IV 75mL [id number] COMPARISON: None. FINDINGS: PULMONARY ARTERIES: Unremarkable. Normal in caliber. No evidence of pulmonary embolism. AORTA: Unremarkable. Normal in caliber. No evidence of dissection. GREAT VESSELS OF AORTIC ARCH: Unremarkable. Normal in caliber. No evidence of dissection. LUNGS AND PLEURAL SPACES: Mild fibroatelectatic changes in the lung bases. No mass. No pleural effusion or thickening. No pneumothorax. HEART: Unremarkable. Heart size is normal. No pericardial effusion. No signs of right heart strain, ratio of right ventricle to left ventricle measures less than 1. MEDIASTINUM: Unremarkable. No mediastinal or hilar adenopathy. Esophagus is unremarkable. No hiatal hernia. THYROID: Unremarkable. No thyroid lesions. BONES/JOINTS: Unremarkable. No suspicious lytic or blastic abnormality. CT/CTA Chest W/WO Contrast IMPRESSION: Mild fibroatelectatic changes, otherwise negative CTA of the chest. Electronically Signed: Freda Dotson MD at 17:06 EDT Tel , Service support ,
[2021-08-10 16:27] LABS: Bacteria 0 SEEN /hpf (None Seen); Mucous, Urine 0 SEEN /hpf (<or=2+); Red Blood Cells-Urine 0 SEEN /hpf (0-5); Squamous Epithelial Cells - UA 0 SEEN /hpf (5-10)
[2021-08-10 16:33] LABS: Color, Urine Yellow (Yellow); Glucose, Dipstick Normal (Normal); Ketone-Dipstick Negative (Negative); Leukocyte Esterase-Dipstick 100 /ul (Negative); Nitrite-Dipstick Negative (Negative); Occult Blood-Urine 25 /ul (Negative); Protein-Dipstick 30 mg/dl (Negative); Urine Bilirubin Dipstick Negative (Negative); Urine Clarity Clear (Clear); Urine Urobilinogen Normal (Normal)
[2021-08-10] MEDS: Ondansetron 4 MG/2 ML Vial IV (16:39)
[2021-08-10 16:42] LABS: White Blood Cells 0-5 SEEN /hpf (0-5)
--- NOTE | 2021-08-10 17:47 | HP.PCM.HOS_ITS ---
HPI - General General Date of Admission: 08/10/21 Date of Service: 08/10/21 Chief Complaint: Syncopal event. HPI Narrative The patient is an 81 y/o F w/ PMHx: Hx Colonc CA, IBS on mesalamine who presents to the [facility] ED on 08/10/21 with history of syncopal event with associated lightheadedness, working in her house with sudden onset of her symptoms prompting her to attempt to sit down however it continued and she woke up lying on the couch with unclear timeline of loss of consciousness however reported a brief with onset of fatigue, malaise as well as left upper quadrant discomfort which does occasionally occur and associated with her IBS prompting eventual ED evaluation. Patient states she is had onset of abdominal discomfort primarily similar region left upper quadrant intermittently with abdominal cramping, distention, occasional diarrhea with blood mixed with stool with nausea with occasional emesis lasting sometimes 24 hours to days ever since she had her partial colectomy years prior with reportedly normal colonoscopies over the last several years. 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 She has never had any formal allergy testing but does report difficulties with certain foods. Work-up in the ED included T 97.1, heart rate 60, BP 120/47, respiratory rate 18, 95 to 99% on room air, CBC with WBC 18.1, hemoglobin 12.4, platelet 324 with left shift, D-dimer 2.77, CMP with chloride 110, AST/ALT 12/9, otherwise unremarkable hepatic profile, troponin 7, chest x-ray with no acute cardiopulmonary findings, CTPA with mild fibro-atelectatic changes otherwise negative CTA of the chest, CT abdomen pelvis with no acute findings with evidence of granulomatous disease and adenopathy, s hotty mesenteric, UA unremarkable. [facility] Medical History (Updated 08/10/21 @ 20:[address] Monique Lora MD) History of colon cancer IBS (irritable bowel syndrome) Home Medications mesalamine 2.4 g PO DAILY 01/02/19 [History Last Taken 08/09/21] Allergy/AdvReac Type Severity Reaction Status Date / Time amoxicillin [From Augmentin] AdvReac Vomiting Verified 08/10/21 15:14 clavulanic acid AdvReac Vomiting Verified 08/10/21 15:14 [From Augmentin] fexofenadine [From Rose] AdvReac Other Verified 08/10/21 15:14 hydrocodone AdvReac Other Verified 08/10/21 15:14 Sulfa (Sulfonamide AdvReac Rash Verified 08/10/21 15:14 Antibiotics) Family History (Updated 08/10/21 @ 20:[address] Monique Lora MD) Mother Heart disease other (Father killed when she was a baby in MVA, no medication history.) Surgical History (Updated 08/10/21 @ 20:[address] Monique Lora MD) S/P cholecystectomy S/P partial colectomy Social History (Updated 08/10/21 @ 20:[address] Monique Lora MD) household members: family housing: house Smoking Status: Never smoker alcohol intake: never substance use type: does not use ROS ROS Narrative Admission Review of Systems: CONSTITUTIONAL: No weight loss, fever, chills, + weakness or fatigue. HEENT: Eyes: No visual loss, blurred vision, double vision or yellow sclerae. Ears, Nose, Throat: No hearing loss, sneezing, congestion, runny nose or sore throat. SKIN: No rash or itching, lesions, wounds. CARDIOVASCULAR: + Syncopal event. No chest pain, chest pressure or chest discomfort, palpitations, edema, orthopnea, syncopal events. RESPIRATORY: No shortness of breath, cough or sputum, wheezing, hemoptysis. GASTROINTESTINAL: + anorexia, intermittent diarrhea mixed with BRB, abdominal bloating and cramping, no melena. GENITOURINARY: No dysuria, frequency, urgency or retention. NEUROLOGICAL: No headache, dizziness, syncope, paralysis, ataxia, numbness or tingling in the extremities, focal weakness, change in bowel or bladder control, seizure. MUSCULOSKELETAL: + muscle, back pain, joint pain or stiffness. HEMATOLOGIC: No anemia, bleeding or bruising. LYMPHATICS: No enlarged nodes. No history of splenectomy. PSYCHIATRIC: No history of depression or anxiety. ENDOCRINOLOGIC: No reports of sweating, cold or heat intolerance. No polyuria or polydipsia. ALLERGIES: No history of asthma, hives, eczema or rhinitis. Vital Signs Vital Signs Vital Signs: 08/10/21 14:13 08/10/21 15:15 08/10/21 17:06 Temperature 97.1 F L Temperature Source Temporal Pulse Rate 68 71 Respiratory Rate 18 14 Respiratory Effort Normal Respiratory Pattern Normal Blood Pressure 120/47 L 125/58 H Blood Pressure Mean 71 80 Pulse Ox 99 95 Oxygen Delivery Method Room Air Room Air Weight Weight: 120 lb Body Mass Index (BMI) 20.5 Physical Exam Narrative Physical Examination: General: Awake, alert, oriented x 3 and cooperative, seated upright in the ED bed in no apparent distress, notes pain currently improved, total of 10 currently. Skin: Normal color, normal turgor, no icterus, no cyanosis. HEENT: AT/NC, EOMI, PERRLA, mildly dry MM, no carotid bruits or JVD noted. Lungs: Mildly diminished, greater bases, appropriate effort, no rales, ronchi or wheezing. Heart: Regular rate and rhythm; no gallop, rub audible. Abdomen: Soft, notable left upper quadrant discomfort with palpation, distention moderate, hyperactive bowel sounds, no obvious HSM. Extremities: No cyanosis, clubbing, or edema. Neurological: Patient awake, alert, oriented as noted, cognitive function intact; pupils equally reactive to light and accommodation, cranial nerves II- XII grossly normal, moving all 4 extremities, no focal deficits, strength moderately global decrease secondary to acute presentation. Psychiatric: Affect appears fatigued, mildly uncomfortable with exam, no acute evidence of depressive or anxiety feelings. Results Lab / Micro Data Result Diagrams: 08/10/21 15:38 08/10/21 15:38 Labs: Laboratory Results - last 24 hr 08/10/21 15:00: Urine Color Yellow, Urine Clarity Clear, Urine pH 7.0, Ur Specific [place] 1.010, Urine Protein 30 H, Urine Glucose (UA) Normal, Urine Ketones Negative, Urine Occult Blood 25 H, Urine Nitrite Negative, Urine Bilirubin Negative, Urine Urobilinogen Normal, Ur Leukocyte Esterase 100 H, Urine RBC 0 SEEN, Urine WBC 0-5 SEEN, Ur Squamous Epith Cells 0 SEEN, Urine Bacteria 0 SEEN, Urine Mucus 0 SEEN 08/10/21 15:38: WBC 18.1 H, RBC 4.43, Hgb 12.4, Hct 40.0, MCV 90.3, MCH 28.0, MCHC 31.0 L, RDW Std Deviation 44.8 H, RDW Coeff of Rhonda 13.5, Plt Count 324, MPV 9.9, Immature Gran % (Auto) 0.400, Neut % (Auto) 82.5 H, Lymph % (Auto) 10.0 L, [place] % (Auto) 6.0, Eos % (Auto) 0.5, Baso % (Auto) 0.6, Absolute Neuts (auto) 14.9 H, Absolute Lymphs (auto) 1.81, Nucleated RBC % 0 08/10/21 15:38: D-Dimer Quant (PE/DVT) 2.77 H* 08/10/21 15:38: Sodium 141, Potassium 4.1, Chloride 110 H, Carbon Dioxide 27.0, Anion Gap 4 L, BUN 7, Creatinine 0.77, Estim Creat Clear Calc 38.56, Est GFR (MDRD) Af Amer 93, Est GFR (MDRD) Non-Af 77, BUN/Creatinine Ratio 9.1 L, Glucose 95, Calcium 8.0 L, Total Bilirubin 0.40, AST 12 L, ALT 9 L, Alkaline Phosphatase 103, Troponin I High Sens 7, Total Protein 6.5, Albumin 2.5 L, Globulin 4.0, Albumin/Globulin Ratio 0.6 L Rhythm Strip Rhythm Strip: Sinus Rhythm Rate: 76 Ectopy: None Radiology Impression Abdomen/Pelvis CT 08/10/21 15:26 IMPRESSION: 1. No acute findings. 2. Old granulomatous disease. 3. Shotty adenopathy. Electronically Signed: Freda Dotson MD at 16:50 EDT Tel , Service support , Chest X-Ray 08/10/21 15:26 IMPRESSION: Normal x-ray examination of the chest. Electronically Signed: Freda Dotson MD at 16:28 EDT Tel , Service support , Chest CTA 08/10/21 16:13 IMPRESSION: Mild fibroatelectatic changes, otherwise negative CTA of the chest. Electronically Signed: Freda Dotson MD at 17:06 EDT Tel , Service support , Assessment & Plan Assessment/Plan (1) Syncope: QUALIFIERS: Syncope type: unspecified Qualified Code(s): R55 - Syncope and collapse PLAN: The patient is an 81 y/o F w/ PMHx: Hx Colonc CA, IBS on mesalamine who presents to the [facility] ED on 08/10/21 with history of syncopal event with associated lightheadedness, working in her house with sudden onset of her symptoms prompting her to attempt to sit down however it continued and she woke up lying on the couch with unclear timeline of loss of consciousness however reported a brief with onset of fatigue, malaise as well as left upper quadrant discomfort which does occasionally occur with prior remote diagnosis IBS prompting eventual ED evaluation. 1. Syncopal Event: Unclear etiology, possibly associated with #2, specifically pain, work-up in the ED EKG in ED w/ sinus rhythm without evidence of acute ischemia with anterior q waves, CXR w/ no acute cardiopulmonary findings, initial trop normal. Will admit to PCU to be cautious given history, place on a monitored bed to assure no acute myocardial infarction with serial cardiac enzymes and EKGs, maintain on fall precautions, obtain admission orthostatic vital signs with repeat in a.m. if notable, alter hydration as needed pending these results, obtain echo, PT/OT consultation to ascertain stability and discharge needs. 2. Abdominal discomfort, left upper quadrant, acute on chronic with history of prior colon cancer and questionable IBS: We will hold mesalamine regimen as from discussions patient is not appropriately on this medication and has been long- term, will request Refugio rivera, involve gastroenterology as this has been a serial ongoing event with episodes lasting 24 hours to days, left upper quadrant with diarrhea with blood mixed in the stool with abdominal cramping and distention. Unclear etiology for leukocytosis with left shift, CT abdomen pelvis not marked appearing. Will obtain stool culture, c-diff if diarrhea recurrent. 3. Leukocytosis: Unclear etiology, significant WC elevation 18.1 with notable left shift, chest x-ray, CT abdomen pelvis as well as CTPA with no obvious findings, UA unremarkable, #1, #2 in #3. Procalcitonin, CRP, ESR requested. Will obtain stool culture, c-diff if diarrhea recurrent. 4. DVT prophylaxis: SCDs, Lovenox cautiously given history of BRB with diarrhea. 5. CODE status: Patient HAN is her granddaughter as well as her sons and living will is currently in place. Discussed CODE status at length including difference between FULL code, DNR-CCA and DNR-CC status. Following discussions about the differences in these status, requested Full Code status. Advanced Care Planning Face to Face Time: 16 minutes. Charges/Coding Visit Charges OBSV E&M: 33406 Initial observation care L3 Procedures Hospitalists Procedures: 26733 Advncd Care Plan 30 Min
--- NOTE | 2021-08-10 18:40 | PCS.PANDOC ---
PANDEMIC DOCUMENTATION INITIATED: Date: 05/25/2021 Time: 190
[2021-08-10 19:42] LABS: Magnesium 2.2 mg/dL (1.6-2.6); Phosphorus 2.8 mg/dL (2.5-4.9)
--- NOTE | 2021-08-10 19:55 | ECHOD_ITS ---
Reason For Study: syncope/near syncope Procedure This was a 2D Doppler, Color Flow transthoracic echocardiogram. The exam was of adequate technical quality. Exam performed in department. Left Ventricle Normal LV size. Left ventricular systolic function is normal. The estimated ejection fraction is 70 %. Diastolic function is indeterminate. No regional wall motion abnormalities noted. Right Ventricle Normal RV size. Normal systolic function. Atria Normal left atrium. Normal right atrium. No doppler evidence for ASD. Mitral Valve There is no mitral annular calcification. Normal mitral valve. Trivial mitral valve insufficiency. Tricuspid Valve Normal tricuspid valve. Trivial tricuspid valve insufficiency. Right ventricular systolic pressure estimated to be 22 mmHg. Aortic Valve The aortic valve is not well visualized. Pulmonic Valve The pulmonic valve is not well visualized. Great Vessels Normal sized aortic root. Pericardium/Pleural No pericardial effusion. MMode/2D Measurements & Calculations LVIDd: 3.6 cm IVSd: 1.1 cm Ao root diam: 3.1 cm LVIDs: 2.0 cm LVPWd: 1.1 cm RVDd: 2.8 cm FS: 46.1 % LAV(MOD-bp): 57.3 ml LA A4 area: 18.4 cm2 LA dimension(2D): 2.7 cm LAV(MOD-bp) Indexed: 36.4 ml/m2 LAV(MOD-sp2): 53.5 ml LAV(MOD-sp4): 54.2 ml RA A4 area: 13.6 cm2 Time Measurements MV dec time: 0.29 sec Doppler Measurements & Calculations MV E max reji: 82.8 cm/sec Lat Peak E' Reji: 6.3 cm/sec Med Peak E' Reji: 6.8 cm/sec MV A max reji: 99.3 cm/sec E/E' lat: 13.1 E/E' med: 12.2 MV E/A: 0.83 Ao V2 max: 118.9 cm/sec LV V1 max: 98.4 cm/sec PA V2 max: 93.5 cm/sec Ao max P.7 mmHg LV V1 max P.9 mmHg TR max reji: 217.4 cm/sec TR max P.9 mmHg ECHO/Echo Complete Interpretation Summary Left ventricular systolic function is normal. The estimated ejection fraction is 70 %. Trivial mitral valve insufficiency. Trivial tricuspid valve insufficiency. Right ventricular systolic pressure estimated to be 22 mmHg. Diastolic function is indeterminate. Ordering Physician: Monique Lora Referring Physician: LEONCIO PCP Performed By: Liliya Dexter RDCS, RVT
[2021-08-10 20:25] LABS: Procalcitonin 0.06 ng/mL (0.00-0.09)
[2021-08-10 20:30] LABS: Erythrocyte Sedimentation Rate 34 mm/hr (0-30)
[2021-08-10] MEDS: 0.9% Normal Saline 1,000 ML 100 ML IV (20:49)
[2021-08-10] MEDS: Pantoprazole Sodium 20 MG Tablet PO (21:39)
[2021-08-10 23:11] LABS: Troponin-I HS 6 pg/mL (3.0-54.0)
[2021-08-10 23:11] LABS: Troponin-I HS 7 pg/mL (3.0-54.0)
[2021-08-11] VITALS (11 sets, daily range): BP systolic 98–139; BP diastolic 50–69; PULSE 61–76; RESP 14–16; TEMP 35.3–36.7; O2SAT 95–100
[2021-08-11 02:43] LABS: Absolute Lymphocyte Count 2.14 X10^3/uL (0.83-4.51); Absolute Neutrophil Count 8.4 X10^3/uL (2.0-7.7); Basophil# 0.08 X10^3/uL; Basophil% 0.7 % (0-1); Eosinophil# 0.17 X10^3/uL; Eosinophils% 1.4 % (0-5); Hematocrit 36.8 % (37-47); Hemoglobin 11.5 g/dL (12.0-15.0); Lymphocyte # 2.14 X10^3/ul (0.83-4.51); Lymphocyte % 18.1 % (19-41); Mean Corp Hgb Conc 31.3 g/dL (32-36); Mean Corpuscular Hgb 28.1 pg (27.0-32.0); Mean Platelet Vol. 10.4 fl (6.2-12.0); Monocyte# 0.98 X10^3/uL; Monocyte% 8.3 % (0-10); NRBC Flagged by Analyzer 0 % (0-5); Neutrophil # 8.39 X10^3/uL (2.7-7.7); Neutrophil % 71.2 % (47-70); Platelet Count 305 K/mm3 (150-450); RBC Distribution Width CV 13.7 % (11.6-14.6); RBC Distribution Width SD 45.1 fl (35.1-43.9); Red Blood Count 4.09 M/mm3 (4.2-5.4); White Blood Count 11.8 K/mm3 (4.4-11.0)
[2021-08-11 03:04] LABS: ALB/GLOB Ratio 0.6 RATIO (0.9-2.4); AST(SGOT) 10 U/L (15-37); Alanine Aminotransfer ALT/SGPT 8 U/L (13-56); Albumin, Serum 2.1 g/dL (3.2-5.0); Alkaline Phosphatase 88 U/L (45-117); Anion Gap 3 (5-15); BUN 5 mg/dL (7-18); BUN/Creat Ratio 7.3 RATIO (10-20); Calcium,Total 7.7 mg/dL (8.5-10.1); Chloride 111 mmol/L (98-107); Creatinine, Serum 0.68 mg/dL (0.55-1.02); EST Glomerular Filtration Rate 88 mL/min (>60); Est Glom Filt Rate - Afr Amer 107 mL/min (>60); Estimated Creatinine Clearance 38.56 ml/min; Globulin 3.5 g/dL (2.2-4.2); Glucose 92 mg/dL (74-106); Potassium 3.4 mmol/L (3.5-5.1); Protein, Total 5.6 g/dL (6.4-8.2); Sodium Level 141 mmol/L (136-145); Troponin-I HS 7 pg/mL (3.0-54.0)
--- NOTE | 2021-08-11 05:55 | EKG12_ITS ---
Test Reason : AM EKG Blood Pressure : / mmHG Vent. Rate : 063 BPM Atrial Rate : 063 BPM P-R Int : 140 ms QRS Dur : 068 ms QT Int : 426 ms P-R-T Axes : 060 060 097 degrees QTc Int : 435 ms Normal sinus rhythm Low voltage QRS Septal infarct , age undetermined Abnormal ECG Confirmed by LUCIANA MCCONNELL, KELLEN ([id number]), bologna maker GAYATRI OROZCO ([id number]) on 08/12/2021 8:52:27 AM Referred By: GUY Confirmed By:KELLEN CHOWDHURY MD
[2021-08-11] MEDS: 0.9% Normal Saline 1,000 ML 100 ML IV ×2 (06:47→19:49)
[2021-08-11] MEDS: Mesalamine 1.2 GM Tablet 2.4 GM PO (09:38)
[2021-08-11] MEDS: Pantoprazole Sodium 20 MG Tablet PO ×2 (09:38→19:56)
[2021-08-11] MEDS: Enoxaparin 30 MG/0.3 ML Syringe SC (09:38)
--- NOTE | 2021-08-11 12:03 | PCM.DC ---
Discharge Instructions Diet Discharge Diet: No restrictions Activity Discharge Activity: Return to Normal Activity Weight Bearing Status: Weight bearing as tolerated Dressing / Incision Call your doctor if you observe: Fever of 101 or Higher, Numbness or Tingling, Shortness of breath, Dizziness, Chest pain, Increased palpitations (irregular heartbeat) and Calf discomfort Follow Up Care Please Follow Up With: Primary care provider When: Within the next two weeks. Test Results: Test results from this visit will be discussed in further detail at your follow-up appointment, if applicable. Discharge Plan Admission Admit Date/Time: 08/10/21 18:40 Attending Provider: Chip Fulton Primary Care Provider: Care Physician,Leanne Primary Discharge Orders/Prescriptions Prescriptions: No Action mesalamine 1.2 GM tablet 2.4 g PO DAILY RF: 0 Referrals / Follow Up: Care Physician,No Primary [Primary Care Provider] - Disposition Disposition (needs filled in before D/C Order can be placed): Home, Self Care
--- NOTE | 2021-08-11 15:10 | DS.PCM_ITS ---
Providers Date of Admission: 08/10/21 Primary Care Physician: Leanne Primary Care Phys Consultations 08/11/21 11:07 Consult: Gastroenterology Routine Consulting Provider: Manolo Gastroenter[facility] Reason for Consult: LUQ pain + Bloody diarrhea EMERGENT Consult: No MD Notified: Yes Date Notified: 08/11/21 Time Notified: 11:07 Method of Notification: Provider Initiated Comments:: Dr. Lora consulted Dr. Draper on admission. Reason For Visit: SYNCOPE ACUTE ON CHRONIC ABD PAIN Diagnosis Discharge Diagnosis (1) Syncope: Status: Acute Code(s): R55 - Syncope and collapse Qualifiers: Syncope type: unspecified Qualified Code(s): R55 - Syncope and collapse Medications at Discharge Home Medications mesalamine 2.4 g PO DAILY 01/02/19 Hospital Course Summary of Care Provided Minutes Spent on Discharge: 35 Hospital Course: Disposition: Patient to be discharged home with outpatient GI follow up. 1) syncope Unclear etiology, possibly related to patient's abdominal discomfort. Echocardiogram on 08/11 demonstrated normal LV systolic function, an EF of 70%, and RVSP of 22 mmHg and indeterminate diastolic dysfunction. EKG and chest x-ray obtained on admission without any acute findings. CT of the chest did not demonstrate any evidence of PE. Recommend follow-up with primary care provider within the next 2 weeks. 2) left upper quadrant abdominal pain Patient with prior history of colon cancer and irritable bowel syndrome. Patien t on mesalamine for IBS, gastroenterology consulted and patient is to follow up as an outpatient. CT of the abdomen pelvis did not demonstrate any acute findings and only showed chronic granulomatous disease. C. difficile and enteric stool panel negative. 3) leukocytosis Unclear etiology, down from admission currently 11,000. Imaging without any acute infectious findings.C. difficile and enteric stool panel negative. Patient seen by Jordan Garcia PA-C, under the supervision of Dr. Fulton. Physical Exam Const alert, oriented x3 and no apparent distress HEENT normocephalic, head/scalp atraumatic, hearing grossly normal bilaterally and moist oral mucous membranes Eyes PERRL, EOMs intact bilaterally and conjunctivae normal Neck no lymphadenopathy and supple Resp normal respiratory effort, no retractions, no use of accessory muscles and clear to auscultation bilaterally Cardio regular rate, regular rhythm, no murmurs and no JVD GI normal to inspection, nondistended, normoactive bowel sounds Palpation: tender LUQ and guarding LUQ Extremity normal to inspection, full ROM and no clubbing, cyanosis or edema Skin no rashes or lesions noted, no wounds and skin turgor normal Neuro CN's II-XII intact bilaterally Psych affect normal Weight / BMI Weight Weight: 109 lb 9.116 oz Body Mass Index (BMI) 20.5 ABG / Lab / Microbiology Data Result Diagrams: 08/11/21 02:15 08/12/21 07:35 Laboratory: Laboratory Results - last 24 hr 08/10/21 15:00: Urine Color Yellow, Urine Clarity Clear, Urine pH 7.0, Ur Specific [place] 1.010, Urine Protein 30 H, Urine Glucose (UA) Normal, Urine Ketones Negative, Urine Occult Blood 25 H, Urine Nitrite Negative, Urine Bilirubin Negative, Urine Urobilinogen Normal, Ur Leukocyte Esterase 100 H, Urine RBC 0 SEEN, Urine WBC 0-5 SEEN, Ur Squamous Epith Cells 0 SEEN, Urine B acteria 0 SEEN, Urine Mucus 0 SEEN 08/10/21 15:38: WBC 18.1 H, RBC 4.43, Hgb 12.4, Hct 40.0, MCV 90.3, MCH 28.0, MCHC 31.0 L, RDW Std Deviation 44.8 H, RDW Coeff of Rhonda 13.5, Plt Count 324, MPV 9.9, Immature Gran % (Auto) 0.400, Neut % (Auto) 82.5 H, Lymph % (Auto) 10.0 L, [place] % (Auto) 6.0, Eos % (Auto) 0.5, Baso % (Auto) 0.6, Absolute Neuts (auto) 14.9 H, Absolute Lymphs (auto) 1.81, Nucleated RBC % 0 08/10/21 15:38: D-Dimer Quant (PE/DVT) 2.77 H* 08/10/21 15:38: Sodium 141, Potassium 4.1, Chloride 110 H, Carbon Dioxide 27.0, Anion Gap 4 L, BUN 7, Creatinine 0.77, Estim Creat Clear Calc 38.56, Est GFR (MDRD) Af Amer 93, Est GFR (MDRD) Non-Af 77, BUN/Creatinine Ratio 9.1 L, Glucose 95, Calcium 8.0 L, Total Bilirubin 0.40, AST 12 L, ALT 9 L, Alkaline Phosphatase 103, Troponin I High Sens 7, Total Protein 6.5, Albumin 2.5 L, Globulin 4.0, Albumin/Globulin Ratio 0.6 L 08/10/21 15:38: Phosphorus 2.8, Magnesium 2.2 08/10/21 15:38: ESR 34 H 08/10/21 15:38: C-React Prot Ext Range 12.10 H 08/10/21 19:30: Troponin I High Sens 6 08/10/21 19:43: Procalcitonin 0.06 08/10/21 22:47: Troponin I High Sens 7 08/11/21 02:15: WBC 11.8 H, RBC 4.09 L, Hgb 11.5 L, Hct 36.8 L, MCV 90.0, MCH 28.1, MCHC 31.3 L, RDW Std Deviation 45.1 H, RDW Coeff of Rhonda 13.7, Plt Count 305, MPV 10.4, Immature Gran % (Auto) 0.300, Neut % (Auto) 71.2 H, Lymph % (Auto) 18.1 L, [place] % (Auto) 8.3, Eos % (Auto) 1.4, Baso % (Auto) 0.7, Absolute Neuts (auto) 8.4 H, Absolute Lymphs (auto) 2.14, Nucleated RBC % 0 08/11/21 02:15: Sodium 141, Potassium 3.4 L, Chloride 111 H, Carbon Dioxide 27.0, Anion Gap 3 L, BUN 5 L, Creatinine 0.68, Estim Creat Clear Calc 38.56, Est GFR (MDRD) Af Amer 107, Est GFR (MDRD) Non-Af 88, BUN/Creatinine Ratio 7.3 L, Glucose 92, Calcium 7.7 L, Total Bilirubin 0.30, AST 10 L, ALT 8 L, Alkaline Phosphatase 88, Troponin I High Sens 7, Total Protein 5.6 L, Albumin 2.1 L, Globulin 3.5, Albumin/Globulin Ratio 0.6 L Microbiology: Microbiology 08/11/21 01:20 Stool Enteric Bacteriology - Final 08/11/21 01:20 Stool C. difficile DNA Amplification - Final Radiography Diagnostic Testing: Radiology Impression Abdomen/Pelvis CT 08/10/21 15:26 IMPRESSION: 1. No acute findings. 2. Old granulomatous disease. 3. Shotty adenopathy. Electronically Signed: Freda Dotson MD at 16:50 EDT Tel , Service support , Chest X-Ray 08/10/21 15:26 IMPRESSION: Normal x-ray examination of the chest. Electronically Signed: Freda Dotson MD at 16:28 EDT Tel , Service support , Chest CTA 08/10/21 16:13 IMPRESSION: Mild fibroatelectatic changes, otherwise negative CTA of the chest. Electronically Signed: Freda Dotson MD at 17:06 EDT Tel , Service support , Echocardiogram 08/10/21 19:55 Interpretation Summary Left ventricular systolic function is normal. The estimated ejection fraction is 70 %. Trivial mitral valve insufficiency. Trivial tricuspid valve insufficiency. Right ventricular systolic pressure estimated to be 22 mmHg. Diastolic function is indeterminate. Ordering Physician: Monique Lora Referring Physician: LEANNE PCP Performed By: Liliya Dexter, CRISTI, RVT D/C Instructions Discharge Diet: No restrictions Weight Bearing Status: Weight bearing as tolerated Call your doctor if you observe: Fever of 101 or Higher, Numbness or Tingling, Shortness of breath, Dizziness, Chest pain, Increased palpitations (irregular heartbeat) and Calf discomfort Please Follow Up With: Primary care provider When: Within the next two weeks. Meaningful Use Info Meaningful Use Diagnoses (Choose all that apply): None applicable Discharge Plan Admission Admit Date/Time: 08/10/21 18:40 Attending Provider: Chip Fulton Primary Care Provider: Care Physician,No Primary Discharge Orders/Prescriptions Prescriptions: No Action mesalamine 1.2 GM tablet 2.4 g PO DAILY RF: 0 Referrals / Follow Up: Care Physician,No Primary [Primary Care Provider] - Disposition Disposition (needs filled in before D/C Order can be placed): Home, Self Care
--- NOTE | 2021-08-11 15:37 | CHAPLAIN ---
Type of Pastoral Visit _x__ Initial Visit ___ Follow-up Visit ___ On-call Visit ___ General Patient Visit ___ Spiritual Assessment ___ Family Conference ___ Bereavement ___ Rapid Response ___ Code Blue ___ Other (describe below) Pastoral Care Referral From _x__ Patient _x__ Family ___ Nurse ___ Physician ___ Insole Channeler ___ Manager Government ___ Other (describe below) Sacrament/Intervention _x__ Active listening ___ Anointing ___ Evangelical ___ Bereavement ___ Communion ___ Berna exploration ___ ___ Life review _x__ Prayer ___ Reconciliation ___ Sacrament of Sick _x__ Supportive presence ___ Wedding ___ Other (describe below) Pastoral Comments upon entering room the patient states with some emotion I am not too happy at the moment and proceeds to say that she doesn't know what is going on and they are going to discharge me and I don't know anything; sat with patient and listened to her concerns; pt hasn't eaten, hasn't been able to talk to family, and hasn't seen the doctor that was supposed to be consulted; went to unit desk and inquired of charge nurse who stated that DR is still expected to come but after his office hours and that patient is not ready for discharge; returned to room to update patient on her status; offered to say a prayer with patient and she welcomed the same; pt was thankful for the assistance
--- NOTE | 2021-08-11 15:47 | CASEMGMT ---
Pt states plan is for home at discharge and declines need for further therapy stating that her son lives with her. Pt is still awaiting c/s by Dr. Draper. Diana OCASIO CM
--- NOTE | 2021-08-11 19:27 | CON.PCM.GI_ITS ---
HPI Consult Data Date of Consult: 08/11/21 HPI Narrative HPI Narrative: JOANN MERRITT, is a 81 F who presents The patient is presented to the ED with abdominal pain back in 2019. Patient states she noted some blood in her stools. Patient describes her pain is cram ping. Patient states her pain is diffuse. Patient admits to nausea but denies any vomiting. Patient states nothing makes her pain better or worse. Patient states she has noted some maroon stools. Patient denies any urinary complaints. Patient states she does have a history of ulcerative colitis. She was given the steroids and and eventually steroids were stopped and mesalamine was started. She has been on mesalamine for multiple years. She did get a colonoscopy back in 2019. However I do not have the records from that colonoscopy. She also has a history of a large cancerous polyp that was removed from the right side of the colon. I do not know if she got a total right hemicolectomy with ileal septectomy or if it just was total right colectomy with primary anastomosis. She did not have a temporary ileostomy or colostomy. She did not receive chemotherapy or radiation. As per her granddaughter she has had multiple episodes of diverticulitis and has been treated antibiotic therapy. Currently at this time she is very weak, but not lethargic. [facility] Medical History (Updated 08/10/21 @ 20:[address] Monique Lora MD) History of colon cancer IBS (irritable bowel syndrome) Home Medications mesalamine 2.4 g PO DAILY 01/02/19 [History Last Taken 08/09/21] Allergy/AdvReac Type Severity Reaction Status Date / Time amoxicillin [From Augmentin] AdvReac Vomiting Verified 08/10/21 15:14 clavulanic acid AdvReac Vomiting Verified 08/10/21 15:14 [From Augmentin] fexofenadine [From Rose] AdvReac Other Verified 08/10/21 15:14 hydrocodone AdvReac Other Verified 08/10/21 15:14 Sulfa (Sulfonamide AdvReac Rash Verified 08/10/21 15:14 Antibiotics) Family History (Updated 08/10/21 @ 20:[address] Monique Lora MD) Mother Heart disease Family History other Surgical History (Updated 08/10/21 @ 20:[address] Monique Lora MD) S/P cholecystectomy S/P partial colectomy Social History (Updated 08/10/21 @ 20:[address] Monique Lora MD) household members: family housing: house Smoking Status: Never smoker alcohol intake: never substance use type: does not use ROS Review of Systems ROS Unobtainable: other Constitutional Constitutional: Denies fatigue, fever(s), poor appetite, weight gain or weight loss ENT HEENT: Denies mouth lesions Cardiovascular Cardiovascular: Denies abdominal bloating, abdominal edema or abdominal pain Respiratory/Chest Respiratory/Chest: Denies change in mental status, change in phlegm color, chest congestion or chest tightness Gastrointestinal Gastrointestinal: Denies belching, bloating, change in bowel habits, change in stool character, chewing difficulty, coffee ground emesis, constipation, cramping, diarrhea, dyspepsia, dysphagia, early satiety, excessive flatus, fecal incontinence, heartburn, hematemesis, hematochezia, hemorrhoids, loose stools, melena, nausea, odynophagia, rectal bleeding, tenesmus, vomiting or weight changes Genitourinary Genitourinary: Denies abdominal discomfort, burning urination or itching Musculoskeletal Musculoskeletal: Reports as per HPI; Denies muscle weakness or myalgias Integumentary Integumentary: Denies jaundice Neurologic Neurologic: Denies lack of coordination or weakness Psychiatric Psychiatric: Denies confusion, depression, memory loss, mood swings, paranoia or suicidal ideation Endocrine Endocrinology: Denies systems reviewed and no addt'l complaints, except as documented Hematologic/Lymphatic Hematologic/Lymphatic: Denies anemia, easy bleeding, easy bruising or lymphaden opathy Allergic/Immunologic Allergic/Immunologic: Denies systems reviewed and no addt'l complaints, except as documented Physical Exam Const alert General Appearance: cooperative Orientation / Consciousness: oriented to person HEENT hearing grossly normal bilaterally Head and Scalp: normal to inspection Face and Sinus: face symmetric Nose: external nose normal Mouth: oral and palatal mucosa normal Eyes conjunctivae normal General Eye: normal appearance of both eyes Neck full ROM General: normal visual inspection Lymph Lymphatic: no lymphadenopathy noted Chest inspection of chest normal and palpation of chest normal Chest: symmetrical chest wall rise Resp normal respiratory effort Effort and Inspection: able to speak in complete sentences Cardio regular rate GI non-distended Percussion: normal to percussion Rectal Exam: deferred Neuro Speech: speech normal Gait (Neuro): normal gait Lab / Micro Data Result Diagrams: 08/11/21 02:15 08/11/21 02:15 Labs: Laboratory Results - last 24 hr 08/10/21 15:38: Phosphorus 2.8, Magnesium 2.2 08/10/21 15:38: ESR 34 H 08/10/21 15:38: C-React Prot Ext Range 12.10 H 08/10/21 19:30: Troponin I High Sens 6 08/10/21 19:43: Procalcitonin 0.06 08/10/21 22:47: Troponin I High Sens 7 08/11/21 02:15: WBC 11.8 H, RBC 4.09 L, Hgb 11.5 L, Hct 36.8 L, MCV 90.0, MCH 28.1, MCHC 31.3 L, RDW Std Deviation 45.1 H, RDW Coeff of Rhonda 13.7, Plt Count 305, MPV 10.4, Immature Gran % (Auto) 0.300, Neut % (Auto) 71.2 H, Lymph % (Auto) 18.1 L, [place] % (Auto) 8.3, Eos % (Auto) 1.4, Baso % (Auto) 0.7, Absolute Neuts (auto) 8.4 H, Absolute Lymphs (auto) 2.14, Nucleated RBC % 0 08/11/21 02:15: Sodium 141, Potassium 3.4 L, Chloride 111 H, Carbon Dioxide 27.0, Anion Gap 3 L, BUN 5 L, Creatinine 0.68, Estim Creat Clear Calc 38.56, Est GFR (MDRD) Af Amer 107, Est GFR (MDRD) Non-Af 88, BUN/Creatinine Ratio 7.3 L, Glucose 92, Calcium 7.7 L, Total Bilirubin 0.30, AST 10 L, ALT 8 L, Alkaline Phosphatase 88, Troponin I High Sens 7, Total Protein 5.6 L, Albumin 2.1 L, Globulin 3.5, Albumin/Globulin Ratio 0.6 L Micro: Microbiology 08/11/21 01:20 Stool Enteric Bacteriology - Final 08/11/21 01:20 Stool C. difficile DNA Amplification - Final Rhythm Strip Rhythm Strip: Sinus Rhythm Rate: 76 Ectopy: None Radiology Impression Echocardiogram 08/10/21 19:55 Interpretation Summary Left ventricular systolic function is normal. The estimated ejection fraction is 70 %. Trivial mitral valve insufficiency. Trivial tricuspid valve insufficiency. Right ventricular systolic pressure estimated to be 22 mmHg. Diastolic function is indeterminate. Ordering Physician: Monique Lora Referring Physician: LEONCIO PCP Performed By: Liliya Dexter, CRISTI, RVT Assessment & Plan Assessment/Plan (1) Diarrhea: PLAN: Should have endoscopic evaluation to define her anatomy and also to get biopsies to see if she has any eosinophilic disease, inflammatory bowel disease, ischemic disease. She also needs work-up for bacterial overgrowth, microscopic colitis or lymphocytic colitis. I will order an ESR, CRP, LDH, SANJAY comprehensive, stool studies for Giardia, ova parasites, fecal Walt protectant. She will also require an upper endoscopy for biopsies of the small bowel. I will also order tissue transglutaminase for celiac disease. Thank you very much for allowing me to visit a negative patient. Charges/Coding Visit Charges Inpatient E&M: 27068 Init Hosp L2
--- NOTE | 2021-08-11 19:47 | PCM.PN.HOSP ---
Documented by User: Jordan OQUENDO 08/11/21 19:50 Subjective Subjective Patient is a 89-year-old female currently resting in bed, alert and orient x3. Patient reports that her abdominal pain is more or less the same from admission, but denies development of any new symptoms overnight. Does not appear in acute distress. Objective Data Objective Data Vital Signs: Vital Signs Temp Pulse Resp BP Pulse Ox 98.0 F 62 16 139/60 H 99 08/11/21 15:35 08/11/21 15:35 08/11/21 15:35 08/11/21 15:35 08/11/21 15:35 Oxygen Delivery Method Room Air Weight: 109 lb 9.116 oz Body Mass Index (BMI) 20.5 Intake & Output: Intake and Output for Last 24 Hours 08/09/21 08/10/21 08/11/21 23:59 23:59 23:59 Intake Total 500 / 500 2476.67 / 2476.67 Balance 500 / 500 2476.67 / 2476.67 Lab / Micro Data Result Diagrams: 08/11/21 02:15 08/12/21 07:35 Labs: Laboratory Results - last 24 hr 08/10/21 15:38: ESR 34 H 08/10/21 15:38: C-React Prot Ext Range 12.10 H 08/10/21 19:30: Troponin I High Sens 6 08/10/21 19:43: Procalcitonin 0.06 08/10/21 22:47: Troponin I High Sens 7 08/11/21 02:15: WBC 11.8 H, RBC 4.09 L, Hgb 11.5 L, Hct 36.8 L, MCV 90.0, MCH 28.1, MCHC 31.3 L, RDW Std Deviation 45.1 H, RDW Coeff of Rhonda 13.7, Plt Count 305, MPV 10.4, Immature Gran % (Auto) 0.300, Neut % (Auto) 71.2 H, Lymph % (Auto) 18.1 L, [place] % (Auto) 8.3, Eos % (Auto) 1.4, Baso % (Auto) 0.7, Absolute Neuts (auto) 8.4 H, Absolute Lymphs (auto) 2.14, Nucleated RBC % 0 08/11/21 02:15: Sodium 141, Potassium 3.4 L, Chloride 111 H, Carbon Dioxide 27.0, Anion Gap 3 L, BUN 5 L, Creatinine 0.68, Estim Creat Clear Calc 38.56, Est GFR (MDRD) Af Amer 107, Est GFR (MDRD) Non-Af 88, BUN/Creatinine Ratio 7.3 L, Glucose 92, Calcium 7.7 L, Total Bilirubin 0.30, AST 10 L, ALT 8 L, Alkaline Phosphatase 88, Troponin I High Sens 7, Total Protein 5.6 L, Albumin 2.1 L, Globulin 3.5, Albumin/Globulin Ratio 0.6 L Micro: Microbiology 08/11/21 01:20 Stool Enteric Bacteriology - Final 08/11/21 01:20 Stool C. difficile DNA Amplification - Final Radiography Diagnostic Testing: Radiology Impression Echocardiogram 08/10/21 19:55 Interpretation Summary Left ventricular systolic function is normal. The estimated ejection fraction is 70 %. Trivial mitral valve insufficiency. Trivial tricuspid valve insufficiency. Right ventricular systolic pressure estimated to be 22 mmHg. Diastolic function is indeterminate. Ordering Physician: Monique Lora Referring Physician: LEONCIO PCP Performed By: Liliya Dexter, CRISTI, RVT Rhythm Strip Rhythm Strip: Sinus Rhythm Rate: 76 Ectopy: None Physical Exam Const alert, oriented x3 and no apparent distress HEENT head/scalp atraumatic and moist oral mucous membranes Head and Scalp: normocephalic Eyes PERRL, EOMs intact bilaterally and conjunctivae normal Neck no lymphadenopathy, supple and no JVD Resp normal respiratory effort, no retractions, no use of accessory muscles and clear to auscultation bilaterally Cardio regular rate, regular rhythm, no murmurs and no JVD GI normal to inspection, nondistended, normoactive bowel sounds and soft to palpation Palpation: tender and guarding Extremity normal to inspection, full ROM and no clubbing, cyanosis or edema Skin no rashes or lesions noted, no wounds, skin turgor normal and no jaundice Neuro CN's II-XII intact bilaterally Psych affect normal Assessment & Plan Assessment/Plan (1) Syncope: QUALIFIERS: Syncope type: unspecified Qualified Code(s): R55 - Syncope and collapse (2) Diarrhea: (3) Leukocytosis: PLAN: Day 1 Discharge planning: Patient to discharge home when medically ready. 1) syncope Unclear etiology, possibly related to patient's abdominal discomfort. Echocardiogram on 08/11 demonstrated normal LV systolic function, an EF of 70%, and RVSP of 22 mmHg and indeterminate diastolic dysfunction. EKG and chest x-ray obtained on admission without any acute findings. CT of the chest did not demonstrate any evidence of PE. Recommend follow-up with primary care provider within the next 2 weeks. 2) left upper quadrant abdominal pain Patient with prior history of colon cancer and irritable bowel syndrome. Patient on mesalamine for IBS, gastroenterology consulted. Work-up to be initiated by by GI inpatient. CT of the abdomen pelvis did not demonstrate any acute findings and only showed chronic granulomatous disease. C. difficile and enteric stool panel negative. Stool lactoferrin ordered. 3) leukocytosis Unclear etiology, down from admission currently 11,000. Imaging without any acute infectious findings.C. difficile and enteric stool panel negative. DVT prophylaxis - Lovenox Patient seen by Jordan Garcia PA-C, under the supervision of Dr. Fulton. Documented by User: Dr. Chip Fulton MD 08/12/21 17:52 Subjective Subjective Patient has history of chronic diarrhea. Medical records from [facility] reviewed. 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 At 1 point she was also on biologic for ulcerative colitis but later on discontinued. Objective Data Lab / Micro Data Result Diagrams: 08/11/21 02:15 08/12/21 07:35 Physical Exam Narrative General: Alert, Oriented x3, Cooperative, frail looking. HEENT: Atraumatic, PERRLA, EOMI, Normocephalic Oral: No Gingival or Mucosal Lesions/ Ulcerations Neck: Supple, No JVD, Negative Carotid Bruits Lungs: Air entry diminished in bilateral lung bases. No crepitation/rhonchi Cardiovascular: Regular rate, Regular Rhythm, Normal S1, Normal S2, No murmurs Abdomen: Bowel Sounds Present, Soft, mild tenderness in lower quadrant. Nondistended. : No renal angle tenderness. No suprapubic tenderness. Extremities: No edema, Capillary Refill Less than 3 Seconds Skin: No rashes, No breakdown Musculoskeletal: No Tenderness to Palpation of Joints or Extremities Neurological: Cranial nerves II-XII grossly intact, DTR 2+/4 and Symmetrical, Neuro grossly intact Psych/Mental Status: Normal Affect, Appropriate. Assessment & Plan Assessment/Plan (1) Syncope: QUALIFIERS: Syncope type: unspecified Qualified Code(s): R55 - Syncope and collapse (2) Diarrhea: PLAN: This patient was seen in conjunction with JERE Nguyen. I have independently interviewed and examined the patient and reviewed pertinent history, examination findings, laboratory and plan of management. I have reviewed the note and agree with the documented findings with the few additional points. In brief, patient is admitted for syncope most likely due to diarrhea and dehydration. Patient has chronic diarrhea most probably secondary to ulcerative colitis as shown by Medical records from [facility]. 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 Patient was seen by GI and recommended outpatient upper endoscopy. She also needs work-up for bacterial overgrowth, microscopic colitis or lymphocytic colitis. He ordered ESR, CRP LDH SANJAY comprehensive panel and stool studies for Giardia ova parasite and tissue transplantation. On review of patient medical reimbursement manager record,she was also on biologic for ulcerative colitis but later on discontinued. I have discussed my assessment with JERE Nguyen and orders have been reviewed. Charges/Coding Visit Charges Inpatient E&M: 15490 Subs Hosp L2
[2021-08-11] MEDS: 0.9% Saline Lock 10 ML Syringe IV (19:56)
[2021-08-11 20:56] LABS: Erythrocyte Sedimentation Rate 24 mm/hr (0-30)
[2021-08-11 21:05] LABS: LDH 112 U/L (84-246)
[2021-08-12 03:00] VITALS: PULSE 67
[2021-08-12 03:25] VITALS: BP 118/67; PULSE 62; RESP 12; TEMP 36.7; O2SAT 98
[2021-08-12] MEDS: 0.9% Normal Saline 1,000 ML 100 ML IV (04:46)
[2021-08-12 06:59] VITALS: PULSE 91
[2021-08-12 07:53] VITALS: O2SAT 98
[2021-08-12 08:21] LABS: Anion Gap 5 (5-15); BUN 4 mg/dL (7-18); BUN/Creat Ratio 5.9 RATIO (10-20); Chloride 108 mmol/L (98-107); Creatinine, Serum 0.68 mg/dL (0.55-1.02); EST Glomerular Filtration Rate 89 mL/min (>60); Est Glom Filt Rate - Afr Amer 107 mL/min (>60); Glucose 75 mg/dL (74-106); Potassium 3.4 mmol/L (3.5-5.1); Sodium Level 138 mmol/L (136-145)
[2021-08-12 09:25] VITALS: BP 132/61; PULSE 62; RESP 16; TEMP 36.6; O2SAT 99
[2021-08-12 09:29] LABS: Phosphorus 3.1 mg/dL (2.5-4.9)
[2021-08-12] MEDS: Enoxaparin 30 MG/0.3 ML Syringe SC (09:45)
[2021-08-12] MEDS: Potassium Chloride Oral Tablet 20 MEQ 40 MEQ PO (09:46)
[2021-08-12] MEDS: Pantoprazole Sodium 20 MG Tablet PO (09:46)
[2021-08-12] MEDS: Mesalamine 1.2 GM Tablet 2.4 GM PO (09:46)
--- NOTE | 2021-08-12 10:21 | CASEMGMT ---
RNCM CRAWFORD Note: This marketing writer went to patient bedside, introduced self and role. CRAWFORD form explained and reviewed with patient for current treatment on this hospital stay. Informed her insurance plan determines coverage for outpatient stay and continual review is conducted to determine any changes in condition that may warrant inpatient stay. Patient acknowledges and states understanding. Denies any issues, concerns or questions with CRAWFORD form. Form signed by patient. Patient provided a copy and original placed in patient hard chart. Jessica Lee RNCM
--- NOTE | 2021-08-12 11:02 | DCINST_ITS ---
Discharge Instructions Diet Discharge Diet: No restrictions Activity Weight Bearing Status: Weight bearing as tolerated Dressing / Incision Call your doctor if you observe: Fever of 101 or Higher, Numbness or Tingling, Shortness of breath, Dizziness, Chest pain, Increased palpitations (irregular heartbeat) and Calf discomfort Follow Up Care Please Follow Up With: Primary care provider Test Results: Test results from this visit will be discussed in further detail at your follow-up appointment, if applicable. Discharge Plan Admission Admit Date/Time: 08/10/21 18:40 Primary Reason for Your Visit: Abdominal discomfort Attending Provider: Chip Fulton Primary Care Provider: Care Physician,No Primary Discharge Orders/Prescriptions Prescriptions: New Ortikos 9 mg capsule, extended release 9 mg PO DAILY Qty: 30 RF: 0 Continued mesalamine 1.2 GM tablet 2.4 g PO DAILY RF: 0 Referrals / Follow Up: Jared Draper DO [STAFF PHYSICIAN] - Within 2 Weeks (Schedule appt with Dr. Draper for labs and EGD/Colonscopy follow up. ) Varinder Phoenix [employer], [employer] [Nurse Practitioner] - Within 2 Weeks (Establish primary care. ) Disposition Disposition (needs filled in before D/C Order can be placed): Home, Self Care
--- NOTE | 2021-08-12 11:11 | CASEMGMT ---
This RN CM to room to discuss d/c plan and pt states no concerns with going home at discharge. Pt declines OP/HHC at this time and states son lives with her. Pt voices no further questions/concerns/needs. [place] RN CM
[2021-08-12] MEDS: Ondansetron 4 MG/2 ML Vial IV (12:54)
[2021-08-12] MEDS: 0.9% Saline Lock 10 ML Syringe IV (12:54)
[2021-08-12 13:35] VITALS: BP 131/59; PULSE 61; RESP 16; TEMP 36.7; O2SAT 99
--- NOTE | 2021-08-12 13:58 | PCM.DC.SUM ---
Documented by User: Jordan OQUENDO 08/12/21 14:05 Providers Date of Admission: 08/10/21 Primary Care Physician: Leanne Primary Care Phys Consultations 08/11/21 11:07 Consult: Gastroenterology Routine Consulting Provider: Manolo Gastroenterology Reason for Consult: LUQ pain + Bloody diarrhea EMERGENT Consult: No MD Notified: Yes Date Notified: 08/11/21 Time Notified: 11:07 Method of Notification: Provider Initiated Comments:: Dr. Lora consulted Dr. Draper on admission. Reason For Visit: SYNCOPE ACUTE ON CHRONIC ABD PAIN Diagnosis Discharge Diagnosis (1) Syncope: Status: Acute Code(s): R55 - Syncope and collapse Qualifiers: Syncope type: unspecified Qualified Code(s): R55 - Syncope and collapse Medications at Discharge Home Medications mesalamine 2.4 g PO DAILY 01/02/19 budesonide [Ortikos] 9 mg PO DAILY #30 cap 08/12/21 Hospital Course Summary of Care Provided Minutes Spent on Discharge: 35 Hospital Course: Disposition: Patient to discharge home. 1) syncope Unclear etiology, possibly related to patient's abdominal discomfort. Echocardiogram on 08/11 demonstrated normal LV systolic function, an EF of 70%, and RVSP of 22 mmHg and indeterminate diastolic dysfunction. EKG and chest x-ray obtained on admission without any acute findings. CT of the chest did not demonstrate any evidence of PE. Recommend follow-up with primary care provider within the next 2 weeks. 2) ischemic colitis Patient did meet with Dr. Draper and current plan is for patient to obtain an endoscopy as an outpatient, work-up for bacterial overgrowth and colitis completed while in hospital and patient is to follow-up with Dr. Draper. Tissue turns glutaminase was also obtained to assess for celiac disease. C. difficile and enteric stool panel negative. CT of the abdomen and pelvis did not demonstrate any acute findings. Patient is to follow-up with Dr. Draper within the next 2 weeks, budesonide 9 mg once daily given on discharge. 3) leukocytosis Unclear etiology, down from admission currently 11,000. Imaging without any acute infectious findings.C. difficile and enteric stool panel negative. Patient seen by Jordan Garcia PA-C, under the supervision of Dr. Fulton. Physical Exam Narrative Patient is an 81-year-old comfortably resting in bed, alert and orient x3. Patient reports that her abdominal pain is stable and has not gotten any worse for admission. Denies development of any new symptoms overnight. Does not appear in acute distress. Const alert, oriented x3 and no apparent distress HEENT normocephalic, head/scalp atraumatic and hearing grossly normal bilaterally Eyes PERRL, EOMs intact bilaterally and conjunctivae normal Neck no lymphadenopathy, supple and no JVD Resp normal respiratory effort, no retractions, no use of accessory muscles and clear to auscultation bilaterally Cardio regular rate, regular rhythm, no murmurs and no JVD GI normal to inspection, nondistended, normoactive bowel sounds and soft to palpation Palpation: tender LUQ Extremity normal to inspection, full ROM and no clubbing, cyanosis or edema Skin no rashes or lesions noted, no wounds and skin turgor normal Neuro CN's II-XII intact bilaterally Psych affect normal Weight / BMI Weight Weight: 111 lb 1.808 oz Body Mass Index (BMI) 20.5 ABG / Lab / Microbiology Data Result Diagrams: 08/11/21 02:15 08/12/21 07:35 Laboratory: Laboratory Results - last 24 hr 08/11/21 02:15: ESR 24 08/11/21 02:15: Lactate Dehydrogenase 112, C-React Prot Ext Range 14.10 H 08/11/21 19:43: Miscellaneous Test Cancelled 08/12/21 07:35: Sodium 138, Potassium 3.4 L, Chloride 108 H, Carbon Dioxide 25.0, Anion Gap 5, BUN 4 L, Creatinine 0.68, Estim Creat Clear Calc 35.70, Est GFR (MDRD) Af Amer 107, Est GFR (MDRD) Non-Af 89, BUN/Creatinine Ratio 5.9 L, Glucose 75, Calcium 8.0 L 08/12/21 07:35: Phosphorus 3.1, Magnesium 2.0 Microbiology: Microbiology 08/11/21 21:54 Stool Stool Lactoferrin - Final 08/11/21 01:20 Stool Enteric Bacteriology - Final 08/11/21 01:20 Stool C. difficile DNA Amplification - Final D/C Instructions Discharge Diet: No restrictions Weight Bearing Status: Weight bearing as tolerated Call your doctor if you observe: Fever of 101 or Higher, Numbness or Tingling, Shortness of breath, Dizziness, Chest pain, Increased palpitations (irregular heartbeat) and Calf discomfort Please Follow Up With: Primary care provider Meaningful Use Info Meaningful Use Diagnoses (Choose all that apply): None applicable Discharge Plan Admission Admit Date/Time: 08/10/21 18:40 Primary Reason for Your Visit: Abdominal discomfort Attending Provider: Chip Fulton Primary Care Provider: Care Physician,Leanne Primary Discharge Orders/Prescriptions Prescriptions: New Ortikos 9 mg capsule, extended release 9 mg PO DAILY Qty: 30 RF: 0 Continued mesalamine 1.2 GM tablet 2.4 g PO DAILY RF: 0 Referrals / Follow Up: Jared Draper DO [STAFF PHYSICIAN] - Within 2 Weeks (Schedule appt with Dr. Draper for labs and EGD/Colonscopy follow up. ) Varinder Phoenix NP, STUDENT ACCOUNTS MANAGER-C [Nurse Practitioner] - Within 2 Weeks (Establish primary care. ) Disposition Disposition (needs filled in before D/C Order can be placed): Home, Self Care Documented by User: Dr. Chip Fulton MD 08/12/21 17:55 Providers Date of Admission: 08/10/21 Reason For Visit: SYNCOPE ACUTE ON CHRONIC ABD PAIN Medications at Discharge Home Medications mesalamine 2.4 g PO DAILY 01/02/19 budesonide [Ortikos] 9 mg PO DAILY #30 cap 08/12/21 Hospital Course Summary of Care Provided Hospital Course: This patient was seen in conjunction with JERE Nguyen. I have independently interviewed and examined the patient and reviewed pertinent history, examination findings, laboratory and plan of management. I have reviewed the note and agree with the documented findings with the few additional points. In brief, patient is admitted for syncope most likely due to diarrhea and dehydration. Patient has chronic diarrhea most probably secondary to ulcerative colitis as shown by Medical records from [facility]. 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 Patient was seen by GI and recommended outpatient upper endoscopy. She also needs work-up for bacterial overgrowth, microscopic colitis or lymphocytic colitis. ESR normal. LDH 112. CRP elevated at 14.1. Procalcitonin normal. Other labs and stool for Giardia antigen, H. pylori are pending. SANJAY panel are pending. He also ordered tissue transglutaminase to rule out celiac disease. On review of patient [facility]ug[facility]son medical record,she was also on biologic for ulcerative colitis but later on discontinued. Other comorbidities as mentioned above Discharge medication reconciliation done. Discharge follow-up instructions completed. Discharge process discussed with the patient and all questions were answered to patient's satisfaction. Total time spent, exact 35 minutes on discharge meds reconciliation, examination, coordination of care with nurses and ancillary staff, review of imaging and blood test and discussion with the patient on follow-up instructions I have discussed my assessment with JERE Nguyen and orders have been reviewed. Physical Exam Narrative General: Alert, Oriented x3, Cooperative, frail looking. BMI 19.1 kg/m? HEENT: Atraumatic, PERRLA, EOMI, Normocephalic Oral: No Gingival or Mucosal Lesions/ Ulcerations Neck: Supple, No JVD, Negative Carotid Bruits Lungs: Air entry diminished in bilateral lung bases. No crepitation/rhonchi Cardiovascular: Regular rate, Regular Rhythm, Normal S1, Normal S2, No murmurs Abdomen: Bowel Sounds Present, Soft, nontender, nondistended. : No renal angle tenderness. No suprapubic tenderness. Extremities: No edema, Capillary Refill Less than 3 Seconds Skin: No rashes, No breakdown Musculoskeletal: No Tenderness to Palpation of Joints or Extremities Neurological: Cranial nerves II-XII grossly intact, DTR 2+/4 and Symmetrical, Neuro grossly intact Psych/Mental Status: Normal Affect, Appropriate. ABG / Lab / Microbiology Data Result Diagrams: 08/11/21 02:15 08/12/21 07:35 Discharge Plan Admission Admit Date/Time: 08/10/21 18:40 Primary Reason for Your Visit: Abdominal discomfort Attending Provider: Chip Fulton Primary Care Provider: Care Physician,Leanne Primary Discharge Orders/Prescriptions Prescriptions: New Ortikos 9 mg capsule, extended release 9 mg PO DAILY Qty: 30 RF: 0 Continued mesalamine 1.2 GM tablet 2.4 g PO DAILY RF: 0 Referrals / Follow Up: Jared Draper DO [STAFF PHYSICIAN] - Within 2 Weeks (Schedule appt with Dr. Draper for labs and EGD/Colonscopy follow up. ) Varinder Phoenix STUDENT ACCOUNTS MANAGER, STUDENT ACCOUNTS MANAGER-C [Nurse Practitioner] - Within 2 Weeks (Establish primary care. ) Disposition Disposition (needs filled in before D/C Order can be placed): Home, Self Care Charges/Coding Visit Charges Inpatient E&M: 44718 Disch Hosp
[2021-08-13 12:08] LABS: Anti-Centromere B Ab <0.2 AI (0.0-0.9); Anti-Chromatin 0.5 AI (0.0-0.9); Anti-Jo <0.2 AI (0.0-0.9); Anti-Scleroderma-70 AB <0.2 AI (0.0-0.9); RNP Ab 0.2 AI (0.0-0.9); SJOGREN'S Anti-SS-A test < 0.2 AI (0.0-0.9); SJOGREN'S Anti-SS-B test < 0.2 AI (0.0-0.9); Smith Ab <0.2 AI (0.0-0.9)
[2021-08-13 15:22] LABS: Anti-dsDNA Ab <1 IU/mL (0-9)
[2021-08-19 10:09] LABS: H. PYLORI STOOL AG Negative (Negative)
[2021-08-19 13:53] LABS: Giardia Lamblia, Stool EIA Negative (Negative)
== END 2021-08-12 11:09 | disposition home or self-care (01) ==
LOC: ED 17:57 → PCU 18:06
PROVIDERS: Internal Medicine Gastroenterology; Admitting Provider Family Medicine; Emergency Provider Emergency Medicine; Visit Provider Internal Medicine
DX: R55 Syncope and collapse (principal); Z23 Encounter for immunization; D72.829 Elevated white blood cell count, unspecified; K51.911 Ulcerative colitis, unspecified with rectal bleeding; K55.9 Vascular disorder of intestine, unspecified; Z85.038 Personal history of other malignant neoplasm of large intestine; Z79.899 Other long term (current) drug therapy; R79.82 Elevated C-reactive protein (CRP); R19.7 Diarrhea, unspecified
CPT/HCPCS: 36415; 71045; 71275; 74176; 80048; 80053; 81001; 83615; 83630; 83735; 84100; 84145; 84484; 85025; 85379; 85652; 86140; 86225; 86235; 87177; 87209; 87329; 87493; 87506; 93005; 93306; 96361; 96372; 96374; 96376; 97162; 97166; 97535; 99218; 99251; 99285; G0008; J7030; Q9967; 90686; A4216; G0378; G0463; J2405

== ENCOUNTER → 2021-08-19 11:12 | Outpatient (CLI) | payer MEDICARE, OTHER, SELFPAY ==
[2021-08-19 12:19] LABS: Absolute Lymphocyte Count 2.72 X10^3/uL (0.83-4.51); Absolute Neutrophil Count 7.7 X10^3/uL (2.0-7.7); Basophil# 0.08 X10^3/uL; Basophil% 0.7 % (0-1); Eosinophil# 0.06 X10^3/uL; Eosinophils% 0.5 % (0-5); Hematocrit 42.6 % (37-47); Hemoglobin 13.3 g/dL (12.0-15.0); Lymphocyte # 2.72 X10^3/ul (0.83-4.51); Lymphocyte % 24.1 % (19-41); Mean Corp Hgb Conc 31.2 g/dL (32-36); Mean Corpuscular Hgb 28.2 pg (27.0-32.0); Mean Corpuscular Volume 90.3 fL (81-99); Mean Platelet Vol. 10.7 fl (6.2-12.0); Monocyte# 0.69 X10^3/uL; Monocyte% 6.1 % (0-10); NRBC Flagged by Analyzer 0 % (0-5); Neutrophil # 7.65 X10^3/uL (2.7-7.7); Neutrophil % 67.8 % (47-70); Platelet Count 351 K/mm3 (150-450); RBC Distribution Width CV 13.9 % (11.6-14.6); RBC Distribution Width SD 45.9 fl (35.1-43.9); Red Blood Count 4.72 M/mm3 (4.2-5.4); White Blood Count 11.3 K/mm3 (4.4-11.0)
[2021-08-19 12:55] LABS: ALB/GLOB Ratio 0.6 RATIO (0.9-2.4); AST(SGOT) 9 U/L (15-37); Alanine Aminotransfer ALT/SGPT 13 U/L (13-56); Albumin, Serum 2.8 g/dL (3.2-5.0); Alkaline Phosphatase 100 U/L (45-117); Anion Gap 3 (5-15); BUN 9 mg/dL (7-18); BUN/Creat Ratio 12.1 RATIO (10-20); Chloride 104 mmol/L (98-107); Creatinine, Serum 0.74 mg/dL (0.55-1.02); EST Glomerular Filtration Rate 80 mL/min (>60); Est Glom Filt Rate - Afr Amer 97 mL/min (>60); Globulin 4.6 g/dL (2.2-4.2); Glucose 91 mg/dL (74-106); Potassium 4.4 mmol/L (3.5-5.1); Protein, Total 7.4 g/dL (6.4-8.2); Sodium Level 139 mmol/L (136-145)
== END ==
PROVIDERS: PCP Nurse Practitioner Family; Referring Provider Nurse Practitioner Family; Visit Provider Nurse Practitioner Family
DX: D72.829 Elevated white blood cell count, unspecified (principal); R19.7 Diarrhea, unspecified
CPT/HCPCS: 36415; 80053; 85025

== ENCOUNTER → 2021-08-25 12:03 | Outpatient (CLI) | payer MEDICARE, OTHER, SELFPAY ==
[2021-08-25 12:36] LABS: Platelet Count 312 K/mm3 (150-450); RET-HE 34.1 pg (30-35)
[2021-08-25 13:15] LABS: Ferritin 30 ng/mL (8-252); Iron 51 ug/dL (50-170); Iron Binding Capacity,Total 360 ug/dL (250-450); LDH 160 U/L (84-246); PERCENT IRON SATURATION 14.2 % (15.0-55.0)
== END ==
PROVIDERS: PCP Nurse Practitioner Family; Visit Provider Internal Medicine Gastroenterology
DX: K92.2 Gastrointestinal hemorrhage, unspecified (principal); R19.7 Diarrhea, unspecified
CPT/HCPCS: 36415; 82728; 83540; 83550; 83615; 85045

== ENCOUNTER 2021-11-23 10:58 | Inpatient (IN) | payer MEDICARE, OTHER, SELFPAY ==
[2021-11-23] VITALS (11 sets, daily range): BP systolic 110–149; BP diastolic 51–74; PULSE 68–98; RESP 15–20; TEMP 36.3–36.8; O2SAT 95–99; BMI 19.1; BMI 18.0
--- NOTE | 2021-11-23 11:42 | EKG12_ITS ---
Test Reason : SYNCOPE Blood Pressure : / mmHG Vent. Rate : 074 BPM Atrial Rate : 074 BPM P-R Int : 126 ms QRS Dur : 060 ms QT Int : 392 ms P-R-T Axes : 083 068 083 degrees QTc Int : 435 ms Sinus rhythm with Premature atrial complexes Low voltage QRS (Limb Leads) Septal SD, age undetermined, cannot be excluded Confirmed by LUCIANA MCCONNELL, KELLEN ([id number]), order editor GAYATRI OROZCO ([id number]) on 11/25/2021 11:32:50 AM Referred By: SUELLEN/USMAN Confirmed By:KELLEN CHOWDHURY MD
--- NOTE | 2021-11-23 11:43 | EX.ED.DYSGE1 ---
HPI History of Present Illness Chief Complaint: Syncope Detail of Chief Complaint: Chronic lower GI bleed Informant: patient Onset/Context/Timing Onset: Days Context: Gradual Onset Timing: Continuous Current Severity: Mild Maximum Severity: Mild Narrative Narrative: 81-year-old female history of colon CA,, irritable bowel and partial colectomy. She is a history of GI bleeds before in the past. She is currently on no medications and no blood thinners. States that she has had rectal bleeding the last 3 to 4 days. Today was sitting on her couch felt lightheaded. Texted a neighbor and when the neighbor came to her house she was passed out on the floor. She denies any injuries. She denies any head pain or neck pain. States her last hospitalization was in June. She denies any nausea or vomiting or fever. Prior similar symptoms: Yes Recent Illness/Hospitalization: No PFSH PFSH Medical History Arthritis Cataract Frequent headaches History of colon cancer IBS (irritable bowel syndrome) Seasonal allergies Syncope Syncope and collapse Home Medications NK 11/23/21 [History Last Taken Unknown] Allergy/AdvReac Type Severity Reaction Status Date / Time amoxicillin [From Augmentin] AdvReac Vomiting Verified 11/23/21 11:04 clavulanic acid AdvReac Vomiting Verified 11/23/21 11:04 [From Augmentin] fexofenadine [From Rose] AdvReac Other Verified 11/23/21 11:04 hydrocodone AdvReac Other Verified 11/23/21 11:04 Sulfa (Sulfonamide AdvReac Rash Verified 11/23/21 11:04 Antibiotics) Family History Mother No problems noted. Grandmother Arthritis Grandfather Arthritis Other Heart disease Surgical History H/O breast biopsy S/P cholecystectomy S/P partial colectomy Surgical history of tubal ligation Social History household members: family housing: house Smoking Status: Never smoker alcohol intake: never substance use type: does not use what type of physical activity do you participate in: walking frequency: daily ROS ROS ED ROS Narrative Denies recent illness. Review of Systems ROS Unobtainable: Denies due to encephalopathy Constitutional Constitutional ED: Denies fever(s) Eyes Eyes: Denies change in vision ENT ENT ED: Denies ear pain Cardiovascular Cardiovascular: Denies chest pain Respiratory/Chest Respiratory/Chest: Denies dyspnea Gastrointestinal Gastrointestinal: Reports melena; Denies abdominal pain, constipation, diarrhea, nausea or vomiting Genitourinary Genitourinary ED: Denies dysuria Musculoskeletal Musculoskeletal: Denies myalgias Integumentary Denies rash Neurologic Neurologic: Denies headache(s) Psychiatric Psychiatric: Denies depression Endocrine Endocrinology: Denies polyuria Allergic/Immunologic Allergic/Immunologic ED: Denies urticaria EXAM Physical Exam Narrative Exam Narrative: 81-year-old female no acute distress vital signs stable afebrile. Pulse ox 99% on room air no hypoxia. H EENT exam unremarkable. Neck nontender. Lungs clear to auscultation bilaterally. Heart regular rhythm no murmur. Abdomen soft nondistended normal bowel sounds no peritoneal signs. Moving all 4 extremities. Calves nontender no edema. Neurologically she is awake and alert with no focal motor deficits. Const Vital Signs: 11/23/21 10:59 11/23/21 14:20 Temperature 97.3 F L Temperature Source Temporal Pulse Rate 68 80 Respiratory Rate 16 16 Blood Pressure 133/64 H 138/62 H Blood Pressure Mean 87 87 Pulse Ox 99 99 Oxygen Delivery Method Room Air Room Air Positive well nourished and well developed; Negative for obese, cachectic, contractures or unkempt General Appearance ED: well developed and NAD; Negative for unkempt, cachectic, contractures, cyanotic or diaphoretic Nutritional Appearance: Negative for cachectic or obese HEENT Reports moist mucous membranes Negative for trauma or tenderness Eyes PERRL and EOMs intact bilaterally General Eye ED: Negative for scleral icterus Neck no lymphadenopathy, supple and no JVD General: Negative for tenderness Chest Wall inspection of chest normal and palpation of chest normal Resp normal respiratory effort and clear to auscultation bilaterally Effort and Inspection: Negative for pain with movement Auscultation: Negative for rales, rhonchi, wheezes or diminished lung sounds Cardio regular rate, regular rhythm, S1 normal heart sound, S2 normal heart sound and no murmurs GI normal to inspection, nondistended, normoactive bowel sounds, non-tender, non-distended and no masses Auscultation: normoactive bowel sounds Palpation: soft; Negative for tender, guarding or rebound tenderness present Back/Spine no CVA tenderness General Back: Negative for CVA tenderness Cervical Spine: Negative for cervical spine tenderness Thoracic Spine / Upper Back: Negative for thoracic spinal tenderness or paraspinal muscle tenderness Lumbar Spine / Lower Back: Negative for lumbar spinal tenderness Extremity normal to inspection General Extremety ED: Negative for edema or tenderness General Extremity: Negative for edema Neuro oriented x3 Sensorium / Orientation: alert; Negative for lethargic or stuporous Motor Exam: strength 5/5 throughout Psych mental status grossly normal Appearance: Negative for unkempt Attitude: No agitated Mood & Affect: Negative for depressed or tearful Skin no rashes or lesions noted and no wounds General Skin Exam: Negative for jaundice MDM MDM MDM Narrative Medical decision making narrative: Elderly female with history of chronic GI bleed with a syncopal episode today at home. Exam benign. Vital signs are stable she is afebrile. Screening labs will be obtained along with EKG. Orthostatic vital signs. She will be typed and screened. Repeat exam patient is doing well. I went over her lab results with her and her I believe granddaughter who is a physician machine operator assistant here in the hospital. Due to her elevated white count and chest x-ray and urinalysis. Urinalysis will be done by straight cath he has a good sample. Exam otherwise is benign. She has had bowel movements here basely small amount of bright red blood tinged stool. There is no melena. Repeat exam patient is doing well at 3:44 PM. Patient's granddaughter works here as a physician machine operator assistant to the hospitalist. Patient not feeling well, she is 81 years old, she had a syncopal event at home and has a 20,000 white count without a source. I will send blood cultures. I will speak to the hospitalist about admission. I do not think she needs IV antibiotics at this time. Lab Data Attestation: I reviewed the patient's lab results. Lab results narrative: CBC shows a white count of 20,600. H&H of 13.3 and 41. Platelets of 440. Electrolytes show potassium of 3.4 gap is 6 normal BUN and creatinine. Normal glucose of 95. Chest x-ray unremarkable. Urinalysis negative except for blood. No signs of infection. No nitrates. No white cells. Positive ketones. Labs: Laboratory Results - last 24 hr 11/23/21 11/23/21 11/23/21 12:01 12:01 12:01 WBC 20.6 H RBC 4.77 Hgb 13.3 Hct 41.9 MCV 87.8 MCH 27.9 MCHC 31.7 L RDW Std Deviation 43.2 RDW Coeff of Rhonda 13.3 Plt Count 440 MPV 8.9 Immature Gran % (Auto) 0.700 Neut % (Auto) 79.0 H Lymph % (Auto) 12.3 L Alpine % (Auto) 6.8 Eos % (Auto) 0.8 Baso % (Auto) 0.4 Absolute Neuts (auto) 16.3 H Absolute Lymphs (auto) 2.53 Nucleated RBC % 0 Sodium 137 Potassium 3.4 L Chloride 104 Carbon Dioxide 27.0 Anion Gap 6 BUN 8 Creatinine 0.84 Estim Creat Clear Calc 42.67 Est GFR (MDRD) Af Amer 84 Est GFR (MDRD) Non-Af 69 BUN/Creatinine Ratio 9.5 L Glucose 95 Calcium 8.5 Urine Color Urine Clarity Urine pH Ur Specific Melcroft Urine Protein Urine Glucose (UA) Urine Ketones Urine Occult Blood Urine Nitrite Urine Bilirubin Urine Urobilinogen Ur Leukocyte Esterase Urine RBC Urine WBC Ur Squamous Epith Cells Urine Bacteria Urine Mucus Blood Type O POSITIVE Antibody Screen NEGATIVE 11/23/21 15:15 WBC RBC Hgb Hct MCV MCH MCHC RDW Std Deviation RDW Coeff of Rhonda Plt Count MPV Immature Gran % (Auto) Neut % (Auto) Lymph % (Auto) Alpine % (Auto) Eos % (Auto) Baso % (Auto) Absolute Neuts (auto) Absolute Lymphs (auto) Nucleated RBC % Sodium Potassium Chloride Carbon Dioxide Anion Gap BUN Creatinine Estim Creat Clear Calc Est GFR (MDRD) Af Amer Est GFR (MDRD) Non-Af BUN/Creatinine Ratio Glucose Calcium Urine Color Yellow Urine Clarity Clear Urine pH 6.0 Ur Specific Melcroft 1.020 Urine Protein Negative Urine Glucose (UA) Normal Urine Ketones 150 A* Urine Occult Blood 150 H Urine Nitrite Negative Urine Bilirubin Negative Urine Urobilinogen Normal Ur Leukocyte Esterase Negative Urine RBC 0-5 SEEN Urine WBC 0 SEEN Ur Squamous Epith Cells 0 SEEN Urine Bacteria 0 SEEN Urine Mucus 0 SEEN Blood Type Antibody Screen Radiography Chest X-Ray - ED: 1 View, Read by ED Physician, Read by Radiologist, Heart, Lungs, Mediastinum, Bony Structures, No Acute Disease and Chronic Changes Diagnostic Testing: Clinical Impression(s) from Imaging Studies Chest X-Ray 11/23/21 14:05 IMPRESSION: Hyperinflation. The lungs are clear. Electronically Signed: Ja Bailey MD at 14:18 EST , Chest x-ray, portable, single view interpreted myself and radiologist shows no acute abnormality. No infiltrate. Normal cardiac silhouette. Rhythm Strip Rhythm Strip: Sinus Rhythm Rate: 74 Ectopy: PAC(s) EKG Initial EKG: Attestation: I personally reviewed and interpreted this EKG as follows: Interpretation: Sinus Rhythm and No Acute Injury Pattern Comments: Normal sinus rhythm at a rate of 74 with PACs. No acute signs of ID nor ischemia. Prior EKG tracings: not available for review Discharge Plan Triage Chief Complaint: Syncope Other Complaint: GI Bleed ED Provider: Dio Webb Dx/Rx/DC Orders Clinical Impression: Syncope, Leukocytosis, Chronic gastrointestinal bleeding Prescriptions: No Action NK RF: 0 Primary Care Provider: Varinder Phoenix NP Referrals: Varinder Phoenix NP, FENCE SETTER-C [Primary Care Provider] - Disposition Disposition: Acute Care [facility]
[2021-11-23 12:15] LABS: Absolute Lymphocyte Count 2.53 X10^3/uL (0.83-4.51); Absolute Neutrophil Count 16.3 X10^3/uL (2.0-7.7); Basophil# 0.08 X10^3/uL; Basophil% 0.4 % (0-1); Eosinophil# 0.16 X10^3/uL; Eosinophils% 0.8 % (0-5); Hematocrit 41.9 % (37-47); Hemoglobin 13.3 g/dL (12.0-15.0); Lymphocyte # 2.53 X10^3/ul (0.83-4.51); Lymphocyte % 12.3 % (19-41); Mean Corp Hgb Conc 31.7 g/dL (32-36); Mean Corpuscular Hgb 27.9 pg (27.0-32.0); Mean Corpuscular Volume 87.8 fL (81-99); Mean Platelet Vol. 8.9 fl (6.2-12.0); Monocyte# 1.39 X10^3/uL; Monocyte% 6.8 % (0-10); NRBC Flagged by Analyzer 0 % (0-5); Neutrophil # 16.28 X10^3/uL (2.7-7.7); Platelet Count 440 K/mm3 (150-450); RBC Distribution Width CV 13.3 % (11.6-14.6); RBC Distribution Width SD 43.2 fl (35.1-43.9); Red Blood Count 4.77 M/mm3 (4.2-5.4); White Blood Count 20.6 K/mm3 (4.4-11.0)
[2021-11-23 12:34] LABS: Anion Gap 6 (5-15); BUN 8 mg/dL (7-18); BUN/Creat Ratio 9.5 RATIO (10-20); Calcium,Total 8.5 mg/dL (8.5-10.1); Chloride 104 mmol/L (98-107); Creatinine, Serum 0.84 mg/dL (0.55-1.02); EST Glomerular Filtration Rate 69 mL/min (>60); Est Glom Filt Rate - Afr Amer 84 mL/min (>60); Estimated Creatinine Clearance 42.67 ml/min; Glucose 95 mg/dL (74-106); Potassium 3.4 mmol/L (3.5-5.1); Sodium Level 137 mmol/L (136-145)
--- NOTE | 2021-11-23 14:05 | RAD_ITS ---
STUDY: X-RAY CHEST REASON FOR EXAM: Female, 81 years old. Leukocytosis TECHNIQUE: Single AP portable view of the chest. COMPARISON: Comparison is made with prior study dated 08/10/2021. FINDINGS: EKG electrodes are seen. Hyperinflation. Calcified granulomas. There is no demonstrated pleural abnormality. Normal size heart. Calcified right hilar lymph nodes. Normal visualized pulmonary arteries. Normal visualized aortic arch and descending thoracic aorta. Normal visualized thoracic spine. Normal visualized ribs, clavicles, and shoulders. There is no demonstrated abnormality of the visualized soft tissue structures of the upper abdomen. RAD/Chest 1 View (Portable) IMPRESSION: Hyperinflation. The lungs are clear. Electronically Signed: Ja Bailey MD at 14:18 EST ,
[2021-11-23 15:23] LABS: Bacteria 0 SEEN /hpf (None Seen); Mucous, Urine 0 SEEN /hpf (<or=2+); Squamous Epithelial Cells - UA 0 SEEN /hpf (5-10); White Blood Cells 0 SEEN /hpf (0-5)
[2021-11-23 15:26] LABS: Color, Urine Yellow (Yellow); Glucose, Dipstick Normal (Normal); Leukocyte Esterase-Dipstick Negative /ul (Negative); Nitrite-Dipstick Negative (Negative); Occult Blood-Urine 150 /ul (Negative); Protein-Dipstick Negative (Negative); Urine Bilirubin Dipstick Negative (Negative); Urine Clarity Clear (Clear); Urine Urobilinogen Normal (Normal)
[2021-11-23 15:27] LABS: Ketone-Dipstick 150 mg/dl (Negative)
[2021-11-23 15:34] LABS: Red Blood Cells-Urine 0-5 SEEN /hpf (0-5)
--- NOTE | 2021-11-23 17:03 | PCM.HP.STD ---
HPI - General General Date of Admission: 11/23/21 Date of Service: 11/23/21 Chief Complaint: HPI Narrative JOANN MERRITT, is a 81 F with history of colon cancer, partial colectomy came to ER for generalized weakness and syncope. Patient has history of rectal bleed in the past but was in remission and recently started having rectal bleed for last 3 to 4 days. She further said sometimes it is brown, sometimes right/dark black, sometimes mixed with the stool or separate red in the toilet bowl. Stool consistency has been liquid for last 4 days. She also has history of left-sided abdominal discomfort about 2-3/10 intensity has been going on for last 4 days with intermittent crampings with GERD severe 9?10 intensity which becomes generalized. Abdominal cramping happens after when she eats and then she gets bowel movement. She also history of irritable bowel syndrome. She has been seeing Dr. Draper who had scheduled her for outpatient EGD/colonoscopy but not been done yet. She denies nausea vomiting or fever. Today in the morning, she has not been feeling well and felt dizzy and lightheaded and then slid down on the floor and passed out, unwitnessed. Neighbors came to her house after the patient asked them. She denies any major injury. Most probably she passed out for about a minute. Denies any headache neck pain or leg pain. She is ambulatory and does not uses any walking support assistance. She also feels she has lost weight but objectively her weight remains same 111 pound since August 2021. She had partial colectomy many years ago and had cholecystectomy. In ED, vitals reviewed. Blood pressure, heart rate and respiratory rate normal. Twelve-lead EKG individually reviewed shows sinus rhythm at 75 bpm. 8 EKG also sinus rhythm with PACs at 74 bpm. QTc 435 ms. Chest x-ray image reviewed does not show acute cardiopulmonary abnormality. About 3 years ago she had colonoscopy done in [facility] where biopsy showed crypt abscess/cryptitis but Dr. Draper thinks she does not have ulcerative colitis. [facility] Medical History Arthritis Cataract Frequent headaches History of colon cancer IBS (irritable bowel syndrome) Seasonal allergies Syncope Syncope and collapse Home Medications acetaminophen 500 mg PO BID PRN 11/23/21 [History Last Taken 11/22/21] Allergy/AdvReac Type Severity Reaction Status Date / Time amoxicillin [From Augmentin] AdvReac Vomiting Verified 11/23/21 11:04 clavulanic acid AdvReac Vomiting Verified 11/23/21 11:04 [From Augmentin] fexofenadine [From Rose] AdvReac Other Verified 11/23/21 11:04 hydrocodone AdvReac Other Verified 11/23/21 11:04 Sulfa (Sulfonamide AdvReac Rash Verified 11/23/21 11:04 Antibiotics) Family History Mother No problems noted. Grandmother Arthritis Grandfather Arthritis Other Heart disease Surgical History H/O breast biopsy S/P cholecystectomy S/P partial colectomy Surgical history of tubal ligation Social History household members: family housing: house Smoking Status: Never smoker alcohol intake: never substance use type: does not use what type of physical activity do you participate in: walking frequency: daily ROS ROS Narrative Constitutional: Reports fatigue and weakness. Denies thirsty HEENT: Reports systems reviewed and no addt'l complaints, except as documented Respiratory/Chest: Denies chest pain, shortness of breath at rest or with exertion Gastrointestinal: As mentioned in HPI Genitourinary: Denies burning urination or new urinary tract symptoms Musculoskeletal: Denies joint pain and limited range of motion. Does not use walking assistive device. Neurologic: Denies seizure-like activity. No focal weakness. skin: No ulcer. No rash Endocrinology: Reports systems reviewed and no addt'l complaints, except as documented Hematologic/Lymphatic: Reports systems reviewed and no addt'l complaints, except as documented Rest 14 ROS are negative except as mentioned in HPI Vital Signs Vital Signs Vital Signs: 11/23/21 10:59 11/23/21 14:20 11/23/21 16:19 Temperature 97.3 F L Temperature Source Temporal Pulse Rate 68 80 76 Respiratory Rate 16 16 15 Blood Pressure 133/64 H 138/62 H Blood Pressure Mean 87 87 Pulse Ox 99 99 98 Oxygen Delivery Method Room Air Room Air Room Air Weight Weight: 111 lb 8.862 oz Body Mass Index (BMI) 19.1 Physical Exam Narrative General: Alert, Oriented x3, Cooperative HEENT: Atraumatic, PERRLA, EOMI, Normocephalic Oral: Oral mucosa dry. No Gingival or Mucosal Lesions/ Ulcerations Neck: Supple, No JVD, Negative Carotid Bruits Lungs: Air entry diminished in bilateral lung bases. No crepitation/rhonchi Cardiovascular: Sinus rhythm, Normal S1, Normal S2, systolic murmur over LLSB. Abdomen: Mild tenderness over left lower quadrant. No palpable mass. Bowel Sounds Present, Soft, Non-Distended. Lower abdominal surgical scar. : No renal angle tenderness. No suprapubic tenderness. Extremities: No edema, Capillary Refill Less than 3 Seconds Skin: No rashes, No breakdown Musculoskeletal: No Tenderness to Palpation of Joints or Extremities Neurological: Cranial nerves II-XII grossly intact, DTR 2+/4 and Symmetrical, Neuro grossly intact Psych/Mental Status: Normal Affect, Appropriate. Results Lab / Micro Data Result Diagrams: 11/23/21 12:01 11/23/21 12:01 Labs: Laboratory Results - last 24 hr 11/23/21 12:01: WBC 20.6 H, RBC 4.77, Hgb 13.3, Hct 41.9, MCV 87.8, MCH 27.9, MCHC 31.7 L, RDW Std Deviation 43.2, RDW Coeff of Rhonda 13.3, Plt Count 440, MPV 8.9, Immature Gran % (Auto) 0.700, Neut % (Auto) 79.0 H, Lymph % (Auto) 12.3 L, [place] % (Auto) 6.8, Eos % (Auto) 0.8, Baso % (Auto) 0.4, Absolute Neuts (auto) 16.3 H, Absolute Lymphs (auto) 2.53, Nucleated RBC % 0 11/23/21 12:01: Sodium 137, Potassium 3.4 L, Chloride 104, Carbon Dioxide 27.0, Anion Gap 6, BUN 8, Creatinine 0.84, Estim Creat Clear Calc 42.67, Est GFR (MDRD) Af Amer 84, Est GFR (MDRD) Non-Af 69, BUN/Creatinine Ratio 9.5 L, Glucose 95, Calcium 8.5 11/23/21 12:01: Blood Type O POSITIVE, Antibody Screen NEGATIVE 11/23/21 15:15: Urine Color Yellow, Urine Clarity Clear, Urine pH 6.0, Ur Specific [place] 1.020, Urine Protein Negative, Urine Glucose (UA) Normal, Urine Ketones 150 A*, Urine Occult Blood 150 H, Urine Nitrite Negative, Urine Bilirubin Negative, Urine Urobilinogen Normal, Ur Leukocyte Esterase Negative, Urine RBC 0-5 SEEN, Urine WBC 0 SEEN, Ur Squamous Epith Cells 0 SEEN, Urine Bacteria 0 SEEN, Urine Mucus 0 SEEN Rhythm Strip Rhythm Strip: Sinus Rhythm Rate: 74 Ectopy: PAC(s) Radiology Impression Chest X-Ray 11/23/21 14:05 IMPRESSION: Hyperinflation. The lungs are clear. Electronically Signed: Ja Bailey MD at 14:18 EST , Assessment & Plan Assessment/Plan (1) Syncope: (2) Leukocytosis: PLAN: 1. Syncope, exact etiology unclear but possible due to GI bleed: Patient is being admitted in PCU. Orthostatic blood pressure. Patient does not have any prior cardiac or pulmonary disease. Never smoker. H&H 13.3/42%. Platelet count 440,000. Consult GI Dr. Draper for possible EGD/colonoscopy. Protonix 40 mg IV daily. Chest x-ray and EKG reviewed and within acceptable limit. 2D echo is ordered because she had syncope #2020. 2. Subacute on chronic lower GI bleed with history of colon cancer, IBS: We will check H&H in the night. CBC tomorrow a.m. During previous hospitalization in August 2021 for syncope most likely due to diarrhea and dehydration, she was negative for C. difficile and enteric bacteriology panel. 3. Leukocytosis:Patient also has leukocytosis, 20.6 thousand, ANC high, ANC normal. Exact etiology unclear. Patient does not have any focus of infection. Denies cough, pneumonialike symptoms or burning micturition/UTI. During previous hospitalization she also had leukocytosis about 18,000 in August 2021 when she had similar 19,000 in January 2019. 4. VTE prophylaxis: Pharmacological prophylaxis contraindicated. Bilateral SCDs. Living will/advanced directive/end of life care: Patient does have living will or advanced directive. Her granddaughter, Ms. Raman, [employer] is POA for health. After discussion of benefits/risks procedures involved with full code, DNR CC arrest and DNR CC, the patient opted for full code. Patient does want artificial life support including intubation, tube feed, ventilator and/chest compression, central venous catheter, vasopressor and DC shock if needed Total time spent in [id number] encounter in discussion of advanced directive 16 minutes. Charges/Coding Visit Charges OBSV E&M: 39341 Initial observation care L3 Procedures Hospitalists Procedures: 71037 Advncd Care Plan 30 Min
[2021-11-23] MEDS: Potassium Chloride Oral Tablet 20 MEQ 40 MEQ PO (17:36)
--- NOTE | 2021-11-23 17:59 | ECHOD_ITS ---
Reason For Study: SYNCOPE Procedure This was a 2D Doppler, Color Flow transthoracic echocardiogram. Technically difficult- pt is ill (nauseous) and is in upright/supine position for echo. The study was technically difficult. Exam performed portable in patient room. Left Ventricle Normal LV size. Left ventricular systolic function is hyperdynamic. The estimated ejection fraction is 75 %. Diastolic function is indeterminate. No regional wall motion abnormalities noted. Right Ventricle Normal RV size. Normal systolic function. Atria Normal left atrium. Normal right atrium. No doppler evidence for ASD. Mitral Valve There is no mitral annular calcification. Normal mitral valve. Trivial mitral valve insufficiency. Tricuspid Valve Normal tricuspid valve. Mild tricuspid valve insufficiency. Right ventricular systolic pressure estimated to be 32 mmHg. Aortic Valve Trisinus/trileaflet aortic valve. Normal aortic valve. Pulmonic Valve The pulmonic valve is not well visualized. Great Vessels Normal sized aortic root. Pericardium/Pleural No pericardial effusion. MMode/2D Measurements & Calculations LVIDd: 3.7 cm IVSd: 0.91 cm Ao root diam: 2.9 cm LVIDs: 2.2 cm LVPWd: 0.83 cm FS: 39.2 % LAV(MOD-bp): 26.1 ml LA A4 area: 13.2 cm2 LA dimension(2D): 2.3 cm LAV(MOD-bp) Indexed: 17.2 ml/m2 LAV(MOD-sp2): 22.7 ml LAV(MOD-sp4): 26.1 ml RA A4 area: 10.5 cm2 Doppler Measurements & Calculations MV E max reji: 92.3 cm/sec Lat Peak E' Reji: 6.9 cm/sec Med Peak E' Reji: 6.4 cm/sec MV A max reji: 118.7 cm/sec E/E' lat: 13.4 E/E' med: 14.4 MV E/A: 0.78 Ao V2 max: 133.9 cm/sec LV V1 max: 112.4 cm/sec PA V2 max: 115.4 cm/sec Ao max P.2 mmHg LV V1 max P.1 mmHg TR max reji: 269.5 cm/sec TR max P.0 mmHg ECHO/Echo Complete Interpretation Summary The study was technically difficult. Left ventricular systolic function is hyperdynamic. The estimated ejection fraction is 75 %. Trivial mitral valve insufficiency. Mild tricuspid valve insufficiency. Right ventricular systolic pressure estimated to be 32 mmHg. Diastolic function is indeterminate. Comment: Late peaking spectral Doppler pattern in the mid LV approaching 2 m/s (peak gradient of 16 mmHg) appearing compatible with a hyperdynamic state. Ordering Physician: Chip Fulton Referring Physician: MARISEL WOODS Performed By: Lady Del Cid, RDCS, RVT
[2021-11-23] MEDS: Lactated Ringers 1,000 ML 75 ML IV (18:22)
[2021-11-23] MEDS: 0.9% Saline Lock 10 ML Syringe IV (18:22)
[2021-11-23] MEDS: Acetaminophen 325 MG Tablet 650 MG PO ×2 (18:26→21:55)
--- NOTE | 2021-11-23 19:05 | CT_ITS ---
INDICATION: ulcerative colitis EXAMINATION: CT ABDOMEN AND PELVIS WITH CONTRAST - CT Abdomen And Pelvis W/ Contrast Injection TECHNIQUE: Helically acquired images were obtained of the abdomen and pelvis following IV contrast. A radiation dose optimization technique was used for this scan. IV Contrast dosage and agent: 100 mL of [id number]. Oral contrast: None. COMPARISON: CT chest 08/10/2021 FINDINGS: LOWER CHEST: Thin linear opacities right left lung bases consistent with scarring or atelectasis. No cardiomegaly or pericardial effusion. LIVER: Homogeneous. No focal mass. GALLBLADDER AND BILIARY TREE: Somewhat collapsed gallbladder. No stones. No gallbladder distension or wall edema. No intra- or extrahepatic biliary ductal dilation. PANCREAS: No focal cystic or solid mass. SPLEEN: Multiple small punctate calcifications from prior granulomatous infection ADRENAL GLANDS: No nodules. KIDNEYS, URETERS and BLADDER: Normal renal size and position. No mass. No hydronephrosis. Bladder is unremarkable. PERITONEUM: No ascites or free air. No other fluid collection. Surgical clips seen in the midline upper pelvis at the level of L5-S1. BOWEL: Moderate diffuse mural hyperenhancement seen throughout the majority of the colon. Portions of the distal descending colon most notably involved. The cecum ascending and transverse colon all show mild wall thickening and mural stratification. There is prominent pericolonic vasculature and mild prominence of the venous drainage of the colon. No stricture. The descending colon has a somewhat featureless appearance. No appreciable polypoid lesions. A few small diverticuli are seen in the sigmoid colon. There appears to be some anastomotic sutures in the sigmoid colon. LYMPH NODES: No enlarged mesenteric or retroperitoneal lymph nodes. VESSELS: Aorta is non-dilated. REPRODUCTIVE ORGANS: Within normal limits for age. ABDOMINAL WALL: No discrete abdominal or pelvic wall hernia. BONES: No lytic or blastic abnormality. No sacroiliitis. Moderate degenerative endplate changes lumbar spine, most notably at L4-5. CT/Abdomen/Pelvis W IV Cont ONLY IMPRESSION: Multiple findings consistent with ulcerative colitis. There is mucosal hyperenhancement with mural stratification, especially in the ascending and transverse colon, which has been associated with increased frequency of needing additional medical or surgical therapy. Electronically Signed: Arthur Hernandez DO at 20:36 EST ,
[2021-11-23 19:28] LABS: Troponin-I HS 7 pg/mL (3.0-54.0)
[2021-11-23 19:33] LABS: Erythrocyte Sedimentation Rate 51 mm/hr (0-30)
--- NOTE | 2021-11-23 19:48 | CON.PCM.GI_ITS ---
HPI Consult Data Date of Consult: 11/23/21 HPI Narrative HPI Narrative: JOANN MERRITT, is a 81 F with a past medical history of also colitis on mesalamine-based medicines. She presented with blood in her stools and diarrhea. Patient describes her pain is cramping. Patient states her pain is diffuse. Patient admits to nausea but denies any vomiting. Patient states nothing makes her pain better or worse. Patient states she has noted some maroon stools. Patient denies any urinary complaints. Patient states she does have a history of ulcerative colitis. She was given the steroids and and eventually steroids were stopped and mesalamine was started. She has been on mesalamine for multiple years. I do not know if she got a total right hemicolectomy with ileal septectomy or if it just was total right colectomy with primary anastomosis. She did not have a temporary ileostomy or colostomy. She did not receive chemotherapy or radiation. As per her granddaughter she has had multiple episodes of diverticulitis and has been treated antibiotic therapy. Currently at this time she is very weak, but not lethargic. [facility] Medical History Arthritis Cataract Frequent headaches History of colon cancer IBS (irritable bowel syndrome) Seasonal allergies Syncope Syncope and collapse Home Medications acetaminophen 500 mg PO BID PRN 11/23/21 [History Last Taken 11/22/21] Allergy/AdvReac Type Severity Reaction Status Date / Time Sulfa (Sulfonamide Allergy Rash Verified 11/23/21 18:06 Antibiotics) amoxicillin [From Augmentin] AdvReac Vomiting Verified 11/23/21 11:04 clavulanic acid AdvReac Vomiting Verified 11/23/21 11:04 [From Augmentin] fexofenadine [From Rose] AdvReac Other Verified 11/23/21 11:04 hydrocodone AdvReac out of it Verified 11/23/21 18:06 Family History Mother No problems noted. Grandmother Arthritis Grandfather Arthritis Other Heart disease Surgical History H/O breast biopsy S/P cholecystectomy S/P partial colectomy Surgical history of tubal ligation Social History household members: family housing: house Smoking Status: Never smoker alcohol intake: never substance use type: does not use what type of physical activity do you participate in: walking frequency: daily ROS Gastrointestinal Gastrointestinal: Reports diarrhea and hematochezia Physical Exam Const alert General Appearance: cooperative Orientation / Consciousness: oriented to person HEENT hearing grossly normal bilaterally Head and Scalp: normal to inspection Face and Sinus: face symmetric Nose: external nose normal Mouth: oral and palatal mucosa normal Eyes conjunctivae normal General Eye: normal appearance of both eyes Neck full ROM General: normal visual inspection Lymph Lymphatic: no lymphadenopathy noted Chest inspection of chest normal and palpation of chest normal Chest: symmetrical chest wall rise Resp normal respiratory effort Effort and Inspection: able to speak in complete sentences Cardio regular rate GI non-distended Percussion: normal to percussion Rectal Exam: deferred Neuro Speech: speech normal Gait (Neuro): normal gait Lab / Micro Data Result Diagrams: 11/23/21 12:01 11/23/21 12:01 Labs: Laboratory Results - last 24 hr 11/23/21 12:01: WBC 20.6 H, RBC 4.77, Hgb 13.3, Hct 41.9, MCV 87.8, MCH 27.9, MCHC 31.7 L, RDW Std Deviation 43.2, RDW Coeff of Rhonda 13.3, Plt Count 440, MPV 8.9, Immature Gran % (Auto) 0.700, Neut % (Auto) 79.0 H, Lymph % (Auto) 12.3 L, [place] % (Auto) 6.8, Eos % (Auto) 0.8, Baso % (Auto) 0.4, Absolute Neuts (auto) 16.3 H, Absolute Lymphs (auto) 2.53, Nucleated RBC % 0 11/23/21 12:01: Sodium 137, Potassium 3.4 L, Chloride 104, Carbon Dioxide 27.0, Anion Gap 6, BUN 8, Creatinine 0.84, Estim Creat Clear Calc 42.67, Est GFR (MDRD) Af Amer 84, Est GFR (MDRD) Non-Af 69, BUN/Creatinine Ratio 9.5 L, Glucose 95, Calcium 8.5 11/23/21 12:01: Blood Type O POSITIVE, Antibody Screen NEGATIVE 11/23/21 12:01: Magnesium Cancelled 11/23/21 12:01: ESR 51 H 11/23/21 15:15: Urine Color Yellow, Urine Clarity Clear, Urine pH 6.0, Ur Specific [place] 1.020, Urine Protein Negative, Urine Glucose (UA) Normal, Urine Ketones 150 A*, Urine Occult Blood 150 H, Urine Nitrite Negative, Urine Bilirubin Negative, Urine Urobilinogen Normal, Ur Leukocyte Esterase Negative, Urine RBC 0-5 SEEN, Urine WBC 0 SEEN, Ur Squamous Epith Cells 0 SEEN, Urine Bacteria 0 SEEN, Urine Mucus 0 SEEN 11/23/21 18:38: Troponin I High Sens 7 Rhythm Strip Rhythm Strip: Sinus Rhythm Rate: 74 Ectopy: PAC(s) Radiology Impression Chest X-Ray 11/23/21 14:05 IMPRESSION: Hyperinflation. The lungs are clear. Electronically Signed: Ja Bailey MD at 14:18 EST , Assessment & Plan Assessment/Plan (1) GI bleed: PLAN: The differential diagnosis for allergic bleeding her would be exacerbation of also colitis, ischemic colitis, infectious colitis with conc omitant flare of IBD. She will get a CT scan abdomen pelvis to evaluate her colon to see if she has any signs of pancolitis. She is status post right hemicolectomy. CT scan will also help to see if there are any signs of peritonitis prior to her needing a colonoscopy. (2) Diarrhea: PLAN: I will check stool studies on her to make sure that there is no sign infection prior to her going on steroid therapy. (3) Leukocytosis: PLAN: The differential diagnosis would be infectious colitis, inflammatory bowel disease. She does have a chronically elevated white blood cell count. This white blood cell count appears to be similar to her previous elevation in white blood cell count that did not reveal any infection. Check ESR, CRP, LDH, lactate. Charges/Coding Visit Charges Inpatient E&M: 96570 Init Hosp L3
[2021-11-23 21:25] LABS: Lactic Acid 0.8 mmol/L (0.4-1.9)
[2021-11-23 21:29] LABS: Troponin-I HS 7 pg/mL (3.0-54.0)
[2021-11-24] VITALS (10 sets, daily range): BP systolic 115–126; BP diastolic 49–62; PULSE 67–87; RESP 16–18; TEMP 36.3–36.9; O2SAT 95–100
[2021-11-24 00:43] LABS: Troponin-I HS 6 pg/mL (3.0-54.0)
[2021-11-24] MEDS: Acetaminophen 325 MG Tablet 650 MG PO (04:17)
[2021-11-24 06:20] LABS: Absolute Lymphocyte Count 1.59 X10^3/uL (0.83-4.51); Absolute Neutrophil Count 11.8 X10^3/uL (2.0-7.7); Basophil# 0.08 X10^3/uL; Basophil% 0.5 % (0-1); Eosinophil# 0.22 X10^3/uL; Eosinophils% 1.5 % (0-5); Hemoglobin 11.7 g/dL (12.0-15.0); Lymphocyte # 1.59 X10^3/ul (0.83-4.51); Lymphocyte % 10.7 % (19-41); Mean Corp Hgb Conc 32.5 g/dL (32-36); Mean Corpuscular Hgb 28.3 pg (27.0-32.0); Mean Platelet Vol. 8.8 fl (6.2-12.0); Monocyte# 1.07 X10^3/uL; Monocyte% 7.2 % (0-10); NRBC Flagged by Analyzer 0 % (0-5); Neutrophil # 11.83 X10^3/uL (2.7-7.7); Neutrophil % 79.4 % (47-70); Platelet Count 370 K/mm3 (150-450); RBC Distribution Width CV 13.4 % (11.6-14.6); RBC Distribution Width SD 42.6 fl (35.1-43.9); Red Blood Count 4.14 M/mm3 (4.2-5.4); White Blood Count 14.9 K/mm3 (4.4-11.0)
[2021-11-24 07:17] LABS: Anion Gap 6 (5-15); BUN 6 mg/dL (7-18); BUN/Creat Ratio 10.7 RATIO (10-20); Calcium,Total 7.9 mg/dL (8.5-10.1); Chloride 106 mmol/L (98-107); Creatinine, Serum 0.56 mg/dL (0.55-1.02); EST Glomerular Filtration Rate 111 mL/min (>60); Est Glom Filt Rate - Afr Amer 134 mL/min (>60); Estimated Creatinine Clearance 33.72 ml/min; Glucose 83 mg/dL (74-106); Potassium 3.8 mmol/L (3.5-5.1); Sodium Level 136 mmol/L (136-145); Thyroid Stim Hormone (TSH) 0.93 uIU/mL (0.358-3.74)
[2021-11-24] MEDS: MethylPREDNISolone 125 MG/2 ML Vial 80 MG IV ×3 (10:12→22:34)
[2021-11-24] MEDS: 0.9% Saline Lock 10 ML Syringe IV ×3 (10:13→22:34)
--- NOTE | 2021-11-24 10:40 | CASEMGMT ---
RN JANINE Face to Face with patient for initial transition planning/care coordination assessment. RN CM introduced self and role at [facility]. Patient lying in bed, alert and oriented. Patient willing to participate in assessment and is able to answer all questions appropriately. Care providers, pharmacy, and demographics verified. Patient wishes to discharge home, denies need for home health at this time. Patient states she has no further needs or concerns at this time. CM to follow for discharge planning needs that may arise. PCP: Varinder Phoenix NP Specialists: Friend, GI Preferred Pharmacy: [facility]; [facility] retail at discharge. Insurance: [facility], [facility] Prescription Benefit: yes Living Will/HPOA: yes, granddaughter Ariana BAEZA LNOK: son, granddaughter Living Arrangements: Patient lives with son in a 2 story home with bed and bath on first floor. 2 steps and grab bars to enter the home. Patient states she is independent at home. Transportation: son, granddaughter DME/HHC: Patient states she has raised toilet and cane at home. Patient denies previous HHC or SNF. Disposition Plan: Patient to discharge home with family support and follow-up plans in place. Maryuri DUONG, RN, CM
[2021-11-24 11:31] LABS: Magnesium 2.4 mg/dL (1.6-2.6)
--- NOTE | 2021-11-24 14:27 | CHAPLAIN ---
Type of Pastoral Visit _x__ Initial Visit ___ Follow-up Visit ___ On-call Visit ___ General Patient Visit ___ Spiritual Assessment ___ Family Conference ___ Bereavement ___ Rapid Response ___ Code Blue ___ Other (describe below) Pastoral Care Referral From _x__ Patient _x__ Family ___ Nurse ___ Physician ___ Film Processor ___ Plant Operations Manager ___ Other (describe below) Sacrament/Intervention _x__ Active listening ___ Anointing ___ Yarsani ___ Bereavement ___ Communion ___ Berna exploration ___ ___ Life review _x__ Prayer ___ Reconciliation ___ Sacrament of Sick _x__ Supportive presence ___ Wedding ___ Other (describe below) Pastoral Comments patient resting in bed but alert and 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
--- NOTE | 2021-11-24 16:12 | PN.HOSP_ITS ---
Subjective Subjective Patient states she is extremely fatigued from having so much loose stool. She states its been about the same. Her hemoglobin remained stable at this time. She is unclear how long she has had ulcerative colitis. She is evidently been putting off her repeat colonoscopy. I did discuss with her the findings of the CAT scan including significant ulcerative colitis flare and the fact that we are starting her on IV steroids. She voiced understanding. I also discussed her case with her granddaughter. Objective Data Objective Data Vital Signs: Vital Signs Temp Pulse Resp BP Pulse Ox 98.4 F 76 16 115/49 L 100 11/24/21 10:10 11/24/21 15:00 11/24/21 10:10 11/24/21 10:10 11/24/21 10:10 Oxygen Delivery Method Room Air Weight: 47.6 kg Body Mass Index (BMI) 18.0 Intake & Output: Intake and Output for Last 24 Hours 11/22/21 11/23/21 11/24/21 23:59 23:59 23:59 Intake Total 1223.75 / 1223.75 Balance 1223.75 / 1223.75 Medical Nutrition Assessment Dietitian: Malnutrition Criteria Met Start: 11/24/21 13:28 Freq: Status: Active Protocol: Document 11/24/21 13:28 (Rec: 11/24/21 13:28 [id number]) Nutrition Malnutrition Evidence of Malnutrition Exists Yes Malnutrition (moderate): Chronic Evidenced By Suboptimal Energy Intake ( Moderate),Weight Loss (Severe) ,Physical Changes (Moderate) Clinical Problem Chronic Disease or Condition Related Malnutrition Etiology acute on chronic moderate malnutrition r/t chronic inadequate energy intake exacerbated by recent GI dysfunction Signs/Symptoms as evidenced by reported unintentional wt loss of 6.2#/ 5.5% <1 month per pt; NFPA suggesting mild muscle wasting /fat loss in upper extremities , temporal, and orbital region ; BMI 18.0; estimated PO intake meeting <75% of estimated energy needs >3 months; reported limited PO intake x3 days [employer]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 Continue to offer ensure w/ medpass for additional calories/protein if consumed. Daily wts. Lab / Micro Data Result Diagrams: 11/24/21 06:00 11/24/21 06:00 Labs: Laboratory Results - last 24 hr 11/23/21 12:01: Magnesium Cancelled 11/23/21 12:01: Magnesium Cancelled 11/23/21 12:01: ESR 51 H 11/23/21 12:01: Magnesium 2.4 11/23/21 18:38: Troponin I High Sens 7 11/23/21 20:58: Troponin I High Sens 7, C-React Prot Ext Range 82.60 H 11/23/21 20:58: Lactic Acid 0.8 11/23/21 23:59: Troponin I High Sens 6 11/24/21 06:00: WBC 14.9 H, RBC 4.14 L, Hgb 11.7 L, Hct 36.0 L, MCV 87.0, MCH 28.3, MCHC 32.5, RDW Std Deviation 42.6, RDW Coeff of Rhonda 13.4, Plt Count 370, MPV 8.8, Immature Gran % (Auto) 0.700, Neut % (Auto) 79.4 H, Lymph % (Auto) 10.7 L, [place] % (Auto) 7.2, Eos % (Auto) 1.5, Baso % (Auto) 0.5, Absolute Neuts (auto) 11.8 H, Absolute Lymphs (auto) 1.59, Nucleated RBC % 0 11/24/21 06:00: Sodium 136, Potassium 3.8, Chloride 106, Carbon Dioxide 24.0, Anion Gap 6, BUN 6 L, Creatinine 0.56, Estim Creat Clear Calc 33.72, Est GFR (MDRD) Af Amer 134, Est GFR (MDRD) Non-Af 111, BUN/Creatinine Ratio 10.7, Glucose 83, Calcium 7.9 L, TSH 0.93 Micro: Microbiology 11/23/21 20:45 Stool C. difficile DNA Amplification - Final 11/23/21 20:45 Stool Enteric Bacteriology - Final 11/23/21 20:45 Interface Orders Stool Lactoferrin - Final Radiography Diagnostic Testing: Radiology Impression Abdomen/Pelvis CT 11/23/21 19:05 IMPRESSION: Multiple findings consistent with ulcerative colitis. There is mucosal hyperenhancement with mural stratification, especially in the ascending and transverse colon, which has been associated with increased frequency of needing additional medical or surgical therapy. Electronically Signed: Arthur Hernandez DO at 20:36 EST , Rhythm Strip Rhythm Strip: Sinus Rhythm Rate: 74 Ectopy: PAC(s) Physical Exam Const alert, oriented x3 and no apparent distress Constitutional Narrative: Very pleasant elderly white female sitting up in bed, appears nontoxic but fatigued, no acute distress Exam Limitations: no limitations Nutritional Appearance: thin HEENT head/scalp atraumatic and moist oral mucous membranes HEENT Narrative: Dentition is poor, Mallampati is 1-2, no thrush Head and Scalp: normocephalic Resp normal respiratory effort, no retractions, no use of accessory muscles and clear to auscultation bilaterally Auscultation: Negative for crackles, rales, rhonchi or wheezes Cardio regular rate, regular rhythm, S1 normal heart sound, S2 normal heart sound, no murmurs, no rub, no gallops, no clicks and no JVD GI soft to palpation and non-distended Auscultation: hyperactive bowel sounds Palpation: tender Extremity no clubbing, cyanosis or edema Peripheral Pulses: Yes pulses 2+ throughout Neuro oriented x3, moves all extremities and no focal motor deficits Sensorium / Orientation: awake and alert Speech: speech normal Psych affect normal Assessment & Plan Assessment/Plan (1) Exacerbation of ulcerative colitis: (2) Diarrhea: (3) GI bleed: (4) Syncope: PLAN: Acute exacerbation of ulcerative colitis -C. difficile and enteric panel are negative -Stool lactoferrin is positive -Ova parasites are pending -Blood cultures are pending -CT of her abdomen pelvis showed multiple findings consistent with ulcerative colitis including mucosal enhancement with mural stratification most specifically in the ascending and transverse colon -Discussed the CT findings with gastroenterology and IV steroids were initiated -Solu-Medrol 80 mg every 8 hours -She is status post right hemicolectomy for colon cancer -She will eventually need a colonoscopy but I suspect gastroenterology will wait until her acute flare has resolved -Patient is on mesalamine-based treatments at baseline Diarrhea -Suspect related to above -Continue IV fluids as ordered -Should improve with steroids Syncope -Likely related to volume depletion -Echo pending -Continue to monitor on telemetry -No current telemetry events at this time GI bleeding -Suspect related to UC flare -Hemoglobin has remained stable with no need for transfusion -Should improve with steroid treatment Leukocytosis -Suspect reactive -CT does not show any signs of infection at this time including abscesses as a result from her UC -Continue to monitor although I suspect her white count will increase given her steroid use At risk for malnutrition -We will start supplements when okay for p.o. diet to be initiated -Patient's BMI is low at 18 at this time DVT prophylaxis -Bilateral SCDs -If hemoglobin remains stable could consider chemoprophylaxis tomorrow CODE STATUS -Full code as verified on admission Charges/Coding Visit Charges Inpatient E&M: 45714 Subs Hosp L2
[2021-11-24] MEDS: Ensure Clear 120 ML Liquid PO (17:36)
--- NOTE | 2021-11-24 19:46 | PN_ITS ---
Subjective Subjective She is doing a little bit better today. She has had 2 more formed stools today without any blood. She is having less nausea, less cramping. Objective Data Objective Data Vital Signs: Vital Signs Temp Pulse Resp BP Pulse Ox 97.3 F L 74 16 115/60 96 11/24/21 16:16 11/24/21 16:16 11/24/21 16:16 11/24/21 16:16 11/24/21 16:16 Oxygen Delivery Method Room Air Weight: 104 lb 15.04 oz Body Mass Index (BMI) 18.0 Intake & Output: Intake and Output for Last 24 Hours 11/22/21 11/23/21 11/24/21 23:59 23:59 23:59 Intake Total 1643.75 / 1643.75 Balance 1643.75 / 1643.75 Medical Nutrition Assessment Dietitian: Malnutrition Criteria Met Start: 11/24/21 13:28 Freq: Status: Active Protocol: Document 11/24/21 13:28 (Rec: 11/24/21 13:28 [id number]) Nutrition Malnutrition Evidence of Malnutrition Exists Yes Malnutrition (moderate): Chronic Evidenced By Suboptimal Energy Intake ( Moderate),Weight Loss (Severe) ,Physical Changes (Moderate) Clinical Problem Chronic Disease or Condition Related Malnutrition Etiology acute on chronic moderate malnutrition r/t chronic inadequate energy intake exacerbated by recent GI dysfunction Signs/Symptoms as evidenced by reported unintentional wt loss of 6.2#/ 5.5% <1 month per pt; NFPA suggesting mild muscle wasting /fat loss in upper extremities , temporal, and orbital region ; BMI 18.0; estimated PO intake meeting <75% of estimated energy needs >3 months; reported limited PO intake x3 days 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 Continue to offer ensure w/ medpass for additional calories/protein if consumed. Daily wts. Lab / Micro Data Result Diagrams: 11/24/21 06:00 11/24/21 06:00 Labs: Laboratory Results - last 24 hr 11/23/21 12:01: Magnesium Cancelled 11/23/21 12:01: Magnesium 2.4 11/23/21 20:58: Troponin I High Sens 7, C-React Prot Ext Range 82.60 H 11/23/21 20:58: Lactic Acid 0.8 11/23/21 23:59: Troponin I High Sens 6 11/24/21 06:00: WBC 14.9 H, RBC 4.14 L, Hgb 11.7 L, Hct 36.0 L, MCV 87.0, MCH 28.3, MCHC 32.5, RDW Std Deviation 42.6, RDW Coeff of Rhonda 13.4, Plt Count 370, MPV 8.8, Immature Gran % (Auto) 0.700, Neut % (Auto) 79.4 H, Lymph % (Auto) 10.7 L, [place] % (Auto) 7.2, Eos % (Auto) 1.5, Baso % (Auto) 0.5, Absolute Neuts (auto) 11.8 H, Absolute Lymphs (auto) 1.59, Nucleated RBC % 0 11/24/21 06:00: Sodium 136, Potassium 3.8, Chloride 106, Carbon Dioxide 24.0, Anion Gap 6, BUN 6 L, Creatinine 0.56, Estim Creat Clear Calc 33.72, Est GFR (MDRD) Af Amer 134, Est GFR (MDRD) Non-Af 111, BUN/Creatinine Ratio 10.7, Glucose 83, Calcium 7.9 L, TSH 0.93 Micro: Microbiology 11/23/21 20:45 Stool C. difficile DNA Amplification - Final 11/23/21 20:45 Stool Enteric Bacteriology - Final 11/23/21 20:45 Interface Orders Stool Lactoferrin - Final Radiography Diagnostic Testing: Radiology Impression Echocardiogram 11/23/21 17:59 Interpretation Summary The study was technically difficult. Left ventricular systolic function is hyperdynamic. The estimated ejection fraction is 75 %. Trivial mitral valve insufficiency. Mild tricuspid valve insufficiency. Right ventricular systolic pressure estimated to be 32 mmHg. Diastolic function is indeterminate. Comment: Late peaking spectral Doppler pattern in the mid LV approaching 2 m/s (peak gradient of 16 mmHg) appearing compatible with a hyperdynamic state. Ordering Physician: Chip Fulton Referring Physician: MARISEL WOODS Performed By: Lady Del Cid, CRISTI, RVT Abdomen/Pelvis CT 11/23/21 19:05 IMPRESSION: Multiple findings consistent with ulcerative colitis. There is mucosal hyperenhancement with mural stratification, especially in the ascending and transverse colon, which has been associated with increased frequency of needing additional medical or surgical therapy. Electronically Signed: Arthur Hernandez DO at 20:36 EST , Rhythm Strip Rhythm Strip: Sinus Rhythm Rate: 74 Ectopy: PAC(s) Physical Exam Const alert General Appearance: cooperative Orientation / Consciousness: oriented to person HEENT hearing grossly normal bilaterally Head and Scalp: normal to inspection Face and Sinus: face symmetric Nose: external nose normal Mouth: oral and palatal mucosa normal Eyes conjunctivae normal General Eye: normal appearance of both eyes Neck full ROM General: normal visual inspection Lymph Lymphatic: no lymphadenopathy noted Chest inspection of chest normal and palpation of chest normal Chest: symmetrical chest wall rise Resp normal respiratory effort Effort and Inspection: able to speak in complete sentences Cardio regular rate GI non-distended Percussion: normal to percussion Rectal Exam: deferred Neuro Speech: speech normal Gait (Neuro): normal gait Assessment & Plan Assessment/Plan (1) Exacerbation of ulcerative colitis: PLAN: Continue steroids. Repeat ESR, CRP and lactate. Recommend to check a PPD, hepatitis profile in anticipation for anti-TNF therapy. She would likely need a colonoscopy prior to her leaving the hospital. Charges/Coding Visit Charges Inpatient E&M: 09445 Subs Hosp L2
[2021-11-25] VITALS (13 sets, daily range): BP systolic 109–126; BP diastolic 56–69; PULSE 56–90; RESP 16; TEMP 36.3–36.6; O2SAT 93–100
[2021-11-25] MEDS: 0.9% Saline Lock 10 ML Syringe IV ×3 (04:37→22:26)
[2021-11-25] MEDS: Ondansetron 4 MG/2 ML Vial IV ×2 (04:37→13:36)
[2021-11-25] MEDS: MethylPREDNISolone 125 MG/2 ML Vial 80 MG IV ×3 (06:03→22:26)
[2021-11-25 06:23] LABS: Absolute Lymphocyte Count 1.17 X10^3/uL (0.83-4.51); Absolute Neutrophil Count 11.6 X10^3/uL (2.0-7.7); Basophil# 0.03 X10^3/uL; Basophil% 0.2 % (0-1); Hematocrit 37.4 % (37-47); Hemoglobin 12.3 g/dL (12.0-15.0); Lymphocyte # 1.17 X10^3/ul (0.83-4.51); Lymphocyte % 8.9 % (19-41); Mean Corp Hgb Conc 32.9 g/dL (32-36); Mean Corpuscular Hgb 28.1 pg (27.0-32.0); Mean Corpuscular Volume 85.6 fL (81-99); Mean Platelet Vol. 9.2 fl (6.2-12.0); Monocyte# 0.17 X10^3/uL; Monocyte% 1.3 % (0-10); NRBC Flagged by Analyzer 0 % (0-5); Neutrophil # 11.63 X10^3/uL (2.7-7.7); Neutrophil % 88.5 % (47-70); Platelet Count 415 K/mm3 (150-450); RBC Distribution Width CV 13.2 % (11.6-14.6); RBC Distribution Width SD 41.5 fl (35.1-43.9); Red Blood Count 4.37 M/mm3 (4.2-5.4); White Blood Count 13.1 K/mm3 (4.4-11.0)
[2021-11-25 06:47] LABS: Anion Gap 7 (5-15); BUN 8 mg/dL (7-18); BUN/Creat Ratio 13.1 RATIO (10-20); Calcium,Total 8.3 mg/dL (8.5-10.1); Chloride 107 mmol/L (98-107); Creatinine, Serum 0.61 mg/dL (0.55-1.02); EST Glomerular Filtration Rate 100 mL/min (>60); Est Glom Filt Rate - Afr Amer 121 mL/min (>60); Estimated Creatinine Clearance 35.52 ml/min; Glucose 140 mg/dL (74-106); Potassium 4.2 mmol/L (3.5-5.1); Sodium Level 140 mmol/L (136-145)
[2021-11-25] MEDS: Ensure Clear 120 ML Liquid PO ×4 (09:56→20:05)
--- NOTE | 2021-11-25 13:37 | PCM.PN.HOSP ---
Subjective Subjective Patient states that she feels like her bowel movements may have slowed down some since initiation of her steroids. Still having some diffuse abdominal tenderness with the most specific point being the left lower quadrant. No new complaints. Objective Data Objective Data Vital Signs: Vital Signs Temp Pulse Resp BP Pulse Ox 97.8 F 90 16 112/56 L 93 11/25/21 11:43 11/25/21 11:43 11/25/21 11:43 11/25/21 11:43 11/25/21 11:43 Oxygen Delivery Method Room Air Weight: 50.15 kg Body Mass Index (BMI) 18.0 Intake & Output: Intake and Output for Last 24 Hours 11/23/21 11/24/21 11/25/21 23:59 23:59 23:59 Intake Total 1643.75 / 1643.75 240 / 240 Balance 1643.75 / 1643.75 240 / 240 Medical Nutrition Assessment Dietitian: Malnutrition Criteria Met Start: 11/24/21 13:28 Freq: Status: Active Protocol: Document 11/24/21 13:28 (Rec: 11/24/21 13:28 [id number]) Nutrition Malnutrition Evidence of Malnutrition Exists Yes Malnutrition (moderate): Chronic Evidenced By Suboptimal Energy Intake ( Moderate),Weight Loss (Severe) ,Physical Changes (Moderate) Clinical Problem Chronic Disease or Condition Related Malnutrition Etiology acute on chronic moderate malnutrition r/t chronic inadequate energy intake exacerbated by recent GI dysfunction Signs/Symptoms as evidenced by reported unintentional wt loss of 6.2#/ 5.5% <1 month per pt; NFPA suggesting mild muscle wasting /fat loss in upper extremities , temporal, and orbital region ; BMI 18.0; estimated PO intake meeting <75% of estimated energy needs >3 months; 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 Continue to offer ensure w/ medpass for additional calories/protein if consumed. Daily wts. Lab / Micro Data Result Diagrams: 11/25/21 05:30 11/25/21 05:30 Labs: Laboratory Results - last 24 hr 11/25/21 05:30: WBC 13.1 H, RBC 4.37, Hgb 12.3, Hct 37.4, MCV 85.6, MCH 28.1, MCHC 32.9, RDW Std Deviation 41.5, RDW Coeff of Rhonda 13.2, Plt Count 415, MPV 9.2, Immature Gran % (Auto) 1.100 H, Neut % (Auto) 88.5 H, Lymph % (Auto) 8.9 L, [place] % (Auto) 1.3, Eos % (Auto) 0.0, Baso % (Auto) 0.2, Absolute Neuts (auto) 11.6 H, Absolute Lymphs (auto) 1.17, Nucleated RBC % 0 11/25/21 05:30: Sodium 140, Potassium 4.2, Chloride 107, Carbon Dioxide 26.0, Anion Gap 7, BUN 8, Creatinine 0.61, Estim Creat Clear Calc 35.52, Est GFR (MDRD) Af Amer 121, Est GFR (MDRD) Non-Af 100, BUN/Creatinine Ratio 13.1, Glucose 140 H, Calcium 8.3 L Micro: Microbiology 11/23/21 20:45 Stool C. difficile DNA Amplification - Final 11/23/21 20:45 Stool Enteric Bacteriology - Final 11/23/21 20:45 Interface Orders Stool Lactoferrin - Final Radiography Diagnostic Testing: Radiology Impression Echocardiogram 11/23/21 17:59 Interpretation Summary The study was technically difficult. Left ventricular systolic function is hyperdynamic. The estimated ejection fraction is 75 %. Trivial mitral valve insufficiency. Mild tricuspid valve insufficiency. Right ventricular systolic pressure estimated to be 32 mmHg. Diastolic function is indeterminate. Comment: Late peaking spectral Doppler pattern in the mid LV approaching 2 m/s (peak gradient of 16 mmHg) appearing compatible with a hyperdynamic state. Ordering Physician: Chip Fulton Referring Physician: MARISEL WOODS Performed By: Lady Del Cid, MAGALYCS, RVT Rhythm Strip Rhythm Strip: Sinus Rhythm Rate: 74 Ectopy: PAC(s) Physical Exam Const alert, oriented x3 and no apparent distress Constitutional Narrative: Very pleasant elderly white female sitting up in bed, appears nontoxic, no acute distress, appears less fatigued than yesterday Exam Limitations: no limitations Nutritional Appearance: thin HEENT head/scalp atraumatic and moist oral mucous membranes Head and Scalp: normocephalic Resp normal respiratory effort, no retractions, no use of accessory muscles and clear to auscultation bilaterally Auscultation: Negative for crackles, rales, rhonchi or wheezes Cardio regular rate, regular rhythm, S1 normal heart sound, S2 normal heart sound, no murmurs, no rub, no gallops, no clicks and no JVD GI soft to palpation and non-distended Auscultation: hyperactive bowel sounds Palpation: tender Extremity no clubbing, cyanosis or edema Neuro oriented x3, moves all extremities and no focal motor deficits Sensorium / Orientation: awake and alert Speech: speech normal Psych affect normal Charges/Coding Visit Charges Inpatient E&M: 44767 Subs Hosp L2
--- NOTE | 2021-11-25 13:49 | PCM.PN.HOSP ---
Subjective Subjective Patient states she is feeling better. Her bouts of diarrhea have lessened. She continues to have abdominal pain more on the left than the right. No other complaints. Objective Data Objective Data Vital Signs: Vital Signs Temp Pulse Resp BP Pulse Ox 97.8 F 90 16 112/56 L 93 11/25/21 11:43 11/25/21 11:43 11/25/21 11:43 11/25/21 11:43 11/25/21 11:43 Oxygen Delivery Method Room Air Weight: 50.15 kg Body Mass Index (BMI) 18.0 Intake & Output: Intake and Output for Last 24 Hours 11/23/21 11/24/21 11/25/21 23:59 23:59 23:59 Intake Total 1643.75 / 1643.75 240 / 240 Balance 1643.75 / 1643.75 240 / 240 Medical Nutrition Assessment Dietitian: Malnutrition Criteria Met Start: 11/24/21 13:28 Freq: Status: Active Protocol: Document 11/24/21 13:28 (Rec: 11/24/21 13:28 [id number]) Nutrition Malnutrition Evidence of Malnutrition Exists Yes Malnutrition (moderate): Chronic Evidenced By Suboptimal Energy Intake ( Moderate),Weight Loss (Severe) ,Physical Changes (Moderate) Clinical Problem Chronic Disease or Condition Related Malnutrition Etiology acute on chronic moderate malnutrition r/t chronic inadequate energy intake exacerbated by recent GI dysfunction Signs/Symptoms as evidenced by reported unintentional wt loss of 6.2#/ 5.5% <1 month per pt; NFPA suggesting mild muscle wasting /fat loss in upper extremities , temporal, and orbital region ; BMI 18.0; estimated PO intake meeting <75% of estimated energy needs >3 months; reported limited PO intake x3 days 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 Continue to offer ensure w/ medpass for additional calories/protein if consumed. Daily wts. Lab / Micro Data Result Diagrams: 11/25/21 05:30 11/25/21 05:30 Labs: Laboratory Results - last 24 hr 11/25/21 05:30: WBC 13.1 H, RBC 4.37, Hgb 12.3, Hct 37.4, MCV 85.6, MCH 28.1, MCHC 32.9, RDW Std Deviation 41.5, RDW Coeff of Rhonda 13.2, Plt Count 415, MPV 9.2, Immature Gran % (Auto) 1.100 H, Neut % (Auto) 88.5 H, Lymph % (Auto) 8.9 L, [place] % (Auto) 1.3, Eos % (Auto) 0.0, Baso % (Auto) 0.2, Absolute Neuts (auto) 11.6 H, Absolute Lymphs (auto) 1.17, Nucleated RBC % 0 11/25/21 05:30: Sodium 140, Potassium 4.2, Chloride 107, Carbon Dioxide 26.0, Anion Gap 7, BUN 8, Creatinine 0.61, Estim Creat Clear Calc 35.52, Est GFR (MDRD) Af Amer 121, Est GFR (MDRD) Non-Af 100, BUN/Creatinine Ratio 13.1, Glucose 140 H, Calcium 8.3 L Micro: Microbiology 11/23/21 20:45 Stool C. difficile DNA Amplification - Final 11/23/21 20:45 Stool Enteric Bacteriology - Final 11/23/21 20:45 Interface Orders Stool Lactoferrin - Final Radiography Diagnostic Testing: Radiology Impression Echocardiogram 11/23/21 17:59 Interpretation Summary The study was technically difficult. Left ventricular systolic function is hyperdynamic. The estimated ejection fraction is 75 %. Trivial mitral valve insufficiency. Mild tricuspid valve insufficiency. Right ventricular systolic pressure estimated to be 32 mmHg. Diastolic function is indeterminate. Comment: Late peaking spectral Doppler pattern in the mid LV approaching 2 m/s (peak gradient of 16 mmHg) appearing compatible with a hyperdynamic state. Ordering Physician: Chip Fulton Referring Physician: MARISEL WOODS Performed By: Lady Del Cid, RDCS, RVT Rhythm Strip Rhythm Strip: Sinus Rhythm Rate: 74 Ectopy: PAC(s) Physical Exam Const alert, oriented x3, no apparent distress and average body habitus Constitutional Narrative: Elderly white female sitting up in bed, appears comfortable nontoxic, watching television Exam Limitations: no limitations Nutritional Appearance: thin HEENT head/scalp atraumatic and moist oral mucous membranes Head and Scalp: normocephalic Resp normal respiratory effort, no retractions, no use of accessory muscles and clear to auscultation bilaterally Auscultation: Negative for crackles, rales, rhonchi or wheezes Cardio regular rate, regular rhythm, S1 normal heart sound, S2 normal heart sound, no rub, no gallops, no clicks and no JVD; Negative for no murmurs Cardio Narrative: 2 out of 6 systolic murmur GI normal to inspection, nondistended, normoactive bowel sounds, soft to palpation and non-distended GI Narrative: Diffusely tender with most specific point tenderness at left lower quadrant Palpation: tender Extremity no clubbing, cyanosis or edema Peripheral Pulses: Yes pulses 2+ throughout Neuro oriented x3, moves all extremities and no focal motor deficits Sensorium / Orientation: awake and alert Speech: speech normal Charges/Coding Visit Charges Inpatient E&M: 22739 Subs Hosp L2 Assessment & Plan Assessment & Plan (1) Exacerbation of ulcerative colitis: (2) Diarrhea: (3) GI bleed: Plan: Acute exacerbation of ulcerative colitis -C. difficile and enteric panel are negative -Stool lactoferrin is positive -Ova parasites are pending -Blood cultures are pending -CT of her abdomen pelvis showed multiple findings consistent with ulcerative colitis including mucosal enhancement with mural stratification most specifically in the ascending and transverse colon -Continue IV steroids -Solu-Medrol 80 mg every 8 hours -She is status post right hemicolectomy for colon cancer -Work-up in progress by gastroenterology for the initiation of anti-TNF agents -We will need colonoscopy prior to discharge Diarrhea -Suspect related to inflammatory bowel disease -Improving -Continue IV fluids as ordered -Should improve with steroids -Stool studies are negative so far Syncope -Likely related to volume depletion -Echo shows an EF of 75% with a right ventricular systolic pressure of 32 mmHg -Continue to monitor on telemetry -No current telemetry events at this time GI bleeding -Suspect related to UC flare -Hemoglobin is normalized -Should improve with steroid treatment Leukocytosis -Suspect reactive -Slowly improving -CT does not show any signs of infection at this time including abscesses as a result from her UC -Continue to monitor although I suspect her white count will increase given her steroid use At risk for malnutrition -Start Ensure clear -Patient's BMI is low at 18 at this time DVT prophylaxis -Bilateral SCDs -Start Lovenox CODE STATUS -Full code as verified on admission
--- NOTE | 2021-11-25 19:36 | PCM.PROGNOTE ---
Subjective Subjective Patient is having less diarrhea. She still misses some cramping on the left greater than the right. She is not having any urgency or bleeding per rectum. Objective Data Objective Data Vital Signs: Vital Signs Temp Pulse Resp BP Pulse Ox 97.9 F 66 16 126/69 H 98 11/25/21 17:15 11/25/21 19:06 11/25/21 17:15 11/25/21 17:15 11/25/21 17:15 Oxygen Delivery Method Room Air Weight: 110 lb 9 oz Body Mass Index (BMI) 18.0 Intake & Output: Intake and Output for Last 24 Hours 11/23/21 11/24/21 11/25/21 23:59 23:59 23:59 Intake Total 1643.75 / 1643.75 240 / 240 Balance 1643.75 / 1643.75 240 / 240 Medical Nutrition Assessment Dietitian: Malnutrition Criteria Met Start: 11/24/21 13:28 Freq: Status: Active Protocol: Document 11/24/21 13:28 (Rec: 11/24/21 13:28 [id number]) Nutrition Malnutrition Evidence of Malnutrition Exists Yes Malnutrition (moderate): Chronic Evidenced By Suboptimal Energy Intake ( Moderate),Weight Loss (Severe) ,Physical Changes (Moderate) Clinical Problem Chronic Disease or Condition Related Malnutrition Etiology acute on chronic moderate malnutrition r/t chronic inadequate energy intake exacerbated by recent GI dysfunction Signs/Symptoms as evidenced by reported unintentional wt loss of 6.2#/ 5.5% <1 month per pt; NFPA suggesting mild muscle wasting /fat loss in upper extremities , temporal, and orbital region ; BMI 18.0; estimated PO intake meeting <75% of estimated energy needs >3 months; reported 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 Continue to offer ensure w/ medpass for additional calories/protein if consumed. Daily wts. Lab / Micro Data Result Diagrams: 11/25/21 05:30 11/25/21 05:30 Labs: Laboratory Results - last 24 hr 11/25/21 05:30: WBC 13.1 H, RBC 4.37, Hgb 12.3, Hct 37.4, MCV 85.6, MCH 28.1, MCHC 32.9, RDW Std Deviation 41.5, RDW Coeff of Rhonda 13.2, Plt Count 415, MPV 9.2, Immature Gran % (Auto) 1.100 H, Neut % (Auto) 88.5 H, Lymph % (Auto) 8.9 L, [place] % (Auto) 1.3, Eos % (Auto) 0.0, Baso % (Auto) 0.2, Absolute Neuts (auto) 11.6 H, Absolute Lymphs (auto) 1.17, Nucleated RBC % 0 11/25/21 05:30: Sodium 140, Potassium 4.2, Chloride 107, Carbon Dioxide 26.0, Anion Gap 7, BUN 8, Creatinine 0.61, Estim Creat Clear Calc 35.52, Est GFR (MDRD) Af Amer 121, Est GFR (MDRD) Non-Af 100, BUN/Creatinine Ratio 13.1, Glucose 140 H, Calcium 8.3 L Micro: Microbiology 11/23/21 20:45 Stool C. difficile DNA Amplification - Final 11/23/21 20:45 Stool Enteric Bacteriology - Final 11/23/21 20:45 Interface Orders Stool Lactoferrin - Final Rhythm Strip Rhythm Strip: Sinus Rhythm Rate: 74 Ectopy: PAC(s) Physical Exam Const alert General Appearance: cooperative Orientation / Consciousness: oriented to person HEENT hearing grossly normal bilaterally Head and Scalp: normal to inspection Face and Sinus: face symmetric Nose: external nose normal Mouth: oral and palatal mucosa normal Eyes conjunctivae normal General Eye: normal appearance of both eyes Neck full ROM General: normal visual inspection Lymph Lymphatic: no lymphadenopathy noted Chest inspection of chest normal and palpation of chest normal Chest: symmetrical chest wall rise Resp normal respiratory effort Effort and Inspection: able to speak in complete sentences Cardio regular rate GI non-distended Percussion: normal to percussion Rectal Exam: deferred Neuro Speech: speech normal Gait (Neuro): normal gait Assessment & Plan Assessment/Plan (1) Exacerbation of ulcerative colitis: PLAN: Continue IV fluids and steroid therapy. Patient will need a colonoscopy prior to leaving the hospital. Anticipate colonoscopy for Tuesday. Repeat ESR CRP and continue antibiotics. Charges/Coding Visit Charges Inpatient E&M: 65267 Subs Hosp L2
[2021-11-25] MEDS: 0.9% Normal Saline 1,000 ML 75 ML IV (23:02)
[2021-11-26] VITALS (8 sets, daily range): BP systolic 106–134; BP diastolic 55–66; PULSE 53–90; RESP 16; TEMP 36.4–36.8; O2SAT 95–98
[2021-11-26] MEDS: Ondansetron 4 MG/2 ML Vial IV ×2 (01:22→16:03)
[2021-11-26] MEDS: 0.9% Saline Lock 10 ML Syringe IV (01:22)
[2021-11-26 05:30] LABS: Absolute Lymphocyte Count 1.07 X10^3/uL (0.83-4.51); Basophil# 0.02 X10^3/uL; Basophil% 0.1 % (0-1); Hematocrit 33.6 % (37-47); Hemoglobin 11.3 g/dL (12.0-15.0); Lymphocyte # 1.07 X10^3/ul (0.83-4.51); Lymphocyte % 5.7 % (19-41); Mean Corp Hgb Conc 33.6 g/dL (32-36); Mean Corpuscular Hgb 28.8 pg (27.0-32.0); Mean Corpuscular Volume 85.5 fL (81-99); Mean Platelet Vol. 9.2 fl (6.2-12.0); Monocyte% 2.1 % (0-10); NRBC Flagged by Analyzer 0 % (0-5); Neutrophil # 16.98 X10^3/uL (2.7-7.7); Neutrophil % 91.1 % (47-70); Platelet Count 388 K/mm3 (150-450); RBC Distribution Width CV 13.3 % (11.6-14.6); RBC Distribution Width SD 41.9 fl (35.1-43.9); Red Blood Count 3.93 M/mm3 (4.2-5.4); White Blood Count 18.7 K/mm3 (4.4-11.0)
[2021-11-26 06:00] LABS: Anion Gap 3 (5-15); BUN 10 mg/dL (7-18); BUN/Creat Ratio 16.2 RATIO (10-20); Calcium,Total 7.8 mg/dL (8.5-10.1); Chloride 109 mmol/L (98-107); Creatinine, Serum 0.62 mg/dL (0.55-1.02); EST Glomerular Filtration Rate 99 mL/min (>60); Est Glom Filt Rate - Afr Amer 119 mL/min (>60); Estimated Creatinine Clearance 35.52 ml/min; Glucose 140 mg/dL (74-106); Potassium 4.2 mmol/L (3.5-5.1); Sodium Level 139 mmol/L (136-145)
[2021-11-26] MEDS: MethylPREDNISolone 125 MG/2 ML Vial 80 MG IV ×3 (06:00→22:29)
[2021-11-26] MEDS: Dicyclomine 10 MG Capsule PO ×3 (06:00→16:09)
[2021-11-26] MEDS: Ensure Clear 120 ML Liquid PO ×2 (07:59→13:43)
[2021-11-26] MEDS: Enoxaparin 30 MG/0.3 ML Syringe SC (10:10)
[2021-11-26 11:25] LABS: Erythrocyte Sedimentation Rate 35 mm/hr (0-30)
[2021-11-26 11:31] LABS: LDH 169 U/L (84-246)
[2021-11-26 12:09] LABS: Lactic Acid 1.3 mmol/L (0.4-1.9)
[2021-11-26 12:11] LABS: Procalcitonin 0.14 ng/mL (0.00-0.09)
[2021-11-26] MEDS: 0.9% Normal Saline 1,000 ML 75 ML IV ×2 (12:37→23:46)
--- NOTE | 2021-11-26 13:56 | NURSING ---
STUDENT CHARTING BY Avelino RODRIGUEZ REVIEWED BY THIS RN.
--- NOTE | 2021-11-26 15:29 | PN.HOSP_ITS ---
Subjective Subjective Still with Pain but stools better. Pain is cramping in nature and about the same. Only 1-2 bowel movements last 24 hours. Objective Data Objective Data Vital Signs: Vital Signs Temp Pulse Resp BP Pulse Ox 97.9 F 70 16 113/59 L 98 11/26/21 13:15 11/26/21 14:42 11/26/21 13:15 11/26/21 13:15 11/26/21 13:15 Oxygen Delivery Method Room Air Weight: 50.3 kg Body Mass Index (BMI) 18.0 Intake & Output: Intake and Output for Last 24 Hours 11/24/21 11/25/21 11/26/21 23:59 23:59 23:59 Intake Total 1643.75 / 1643.75 240 / 240 1480 / 1480 Balance 1643.75 / 1643.75 240 / 240 1480 / 1480 Medical Nutrition Assessment Dietitian: Malnutrition Criteria Met Start: 11/24/21 13:28 Freq: Status: Active Protocol: Document 11/24/21 13:28 (Rec: 11/24/21 13:28 [id number]) Nutrition Malnutrition Evidence of Malnutrition Exists Yes Malnutrition (moderate): Chronic Evidenced By Suboptimal Energy Intake ( Moderate),Weight Loss (Severe) ,Physical Changes (Moderate) Clinical Problem Chronic Disease or Condition Related Malnutrition Etiology acute on chronic moderate malnutrition r/t chronic inadequate energy intake exacerbated by recent GI dysfunction Signs/Symptoms as evidenced by reported unintentional wt loss of 6.2#/ 5.5% <1 month per pt; NFPA suggesting mild muscle wasting /fat loss in upper extremities , temporal, and orbital region ; BMI 18.0; estimated PO intake meeting <75% of estimated energy needs >3 months; 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 Continue to offer ensure w/ medpass for additional calories/protein if consumed. Daily wts. Lab / Micro Data Result Diagrams: 11/26/21 05:16 11/26/21 05:16 Labs: Laboratory Results - last 24 hr 11/26/21 05:16: WBC 18.7 H, RBC 3.93 L, Hgb 11.3 L, Hct 33.6 L, MCV 85.5, MCH 28.8, MCHC 33.6, RDW Std Deviation 41.9, RDW Coeff of Rhonda 13.3, Plt Count 388, MPV 9.2, Immature Gran % (Auto) 1.000 H, Neut % (Auto) 91.1 H, Lymph % (Auto) 5.7 L, [place] % (Auto) 2.1, Eos % (Auto) 0.0, Baso % (Auto) 0.1, Absolute Neuts (auto) 17.0 H, Absolute Lymphs (auto) 1.07, Nucleated RBC % 0 11/26/21 05:16: Sodium 139, Potassium 4.2, Chloride 109 H, Carbon Dioxide 27.0, Anion Gap 3 L, BUN 10, Creatinine 0.62, Estim Creat Clear Calc 35.52, Est GFR (MDRD) Af Amer 119, Est GFR (MDRD) Non-Af 99, BUN/Creatinine Ratio 16.2, Glucose 140 H, Calcium 7.8 L 11/26/21 05:16: ESR 35 H 11/26/21 05:16: Lactate Dehydrogenase 169, C-React Prot Ext Range 38.60 H 11/26/21 11:30: Procalcitonin 0.14 H 11/26/21 11:30: Lactic Acid 1.3 Micro: Microbiology 11/23/21 18:39 Blood Culture (Wb) - Left Wrist Blood Culture - Preliminary No growth in 48 hours. 11/23/21 18:32 Blood Culture (Wb) - Anticubital Left Blood Culture - Preliminary No growth in 48 hours. 11/23/21 20:45 Stool C. difficile DNA Amplification - Final 11/23/21 20:45 Stool Enteric Bacteriology - Final 11/23/21 20:45 Interface Orders Stool Lactoferrin - Final Rhythm Strip Rhythm Strip: Sinus Rhythm Rate: 74 Ectopy: PAC(s) Physical Exam Const alert, oriented x3, no apparent distress and average body habitus Constitutional Narrative: Elderly white female sitting up in bed, appears comfortable nontoxic, watching television Exam Limitations: no limitations Nutritional Appearance: thin HEENT head/scalp atraumatic and moist oral mucous membranes Head and Scalp: normocephalic Resp normal respiratory effort, no retractions, no use of accessory muscles and clear to auscultation bilaterally Auscultation: Negative for crackles, rales, rhonchi or wheezes Cardio regular rate, regular rhythm, S1 normal heart sound, S2 normal heart sound, no rub, no gallops, no clicks and no JVD; Negative for no murmurs Cardio Narrative: 2 out of 6 systolic murmur GI normal to inspection, nondistended, normoactive bowel sounds, soft to palpation and non-distended GI Narrative: Diffusely tender with most specific point tenderness at left lower quadrant Palpation: tender Extremity no clubbing, cyanosis or edema Neuro oriented x3, moves all extremities and no focal motor deficits Sensorium / Orientation: awake and alert Speech: speech normal Assessment & Plan Assessment/Plan (1) Exacerbation of ulcerative colitis: (2) Diarrhea: (3) GI bleed: PLAN: Acute exacerbation of ulcerative colitis -C. difficile and enteric panel are negative -Stool lactoferrin is positive -Ova parasites are pending -Blood cultures negative -CT of her abdomen pelvis showed multiple findings consistent with ulcerative colitis including mucosal enhancement with mural stratification most specifically in the ascending and transverse colon -Discussed the CT findings with gastroenterology and IV steroids were initiated -Solu-Medrol 80 mg every 8 hours -Start Abx per GI notes today--> Cipro/Flagyl -She is status post right hemicolectomy for colon cancer -Colonoscopy tomorrow Diarrhea -Suspect related to above -Improving -Continue IV fluids as ordered -Should improve with steroids Syncope -Likely related to volume depletion -Echo unremarkable -Continue to monitor on telemetry -No current telemetry events at this time GI bleeding -Suspect related to UC flare -Hemoglobin has remained stable with no need for transfusion -Should improve with steroid treatment Leukocytosis -Suspect reactive and from steroids -CT does not show any signs of infection at this time including abscesses as a result from her UC -Continue to monitor although I suspect her white count will increase given her steroid use At risk for malnutrition -Ensure Clear ordered -Patient's BMI is low at 18 at this time DVT prophylaxis -Bilateral SCDs -Lovenox CODE STATUS -Full code as verified on admission Charges/Coding Visit Charges Inpatient E&M: 33064 Subs Hosp L2
[2021-11-26] MEDS: Electrolyte Solution/Peg's 4000 ML PO (16:03)
--- NOTE | 2021-11-26 17:51 | PN_ITS ---
Subjective Subjective He is having more formed stools. She has not seen any blood in her stool. Her abdominal cramping is getting slightly better. Objective Data Objective Data Vital Signs: Vital Signs Temp Pulse Resp BP Pulse Ox 97.9 F 70 16 113/59 L 98 11/26/21 13:15 11/26/21 14:42 11/26/21 13:15 11/26/21 13:15 11/26/21 13:15 Oxygen Delivery Method Room Air Weight: 110 lb 14.28 oz Body Mass Index (BMI) 18.0 Intake & Output: Intake and Output for Last 24 Hours 11/24/21 11/25/21 11/26/21 23:59 23:59 23:59 Intake Total 1643.75 / 1643.75 240 / 240 1480 / 1480 Balance 1643.75 / 1643.75 240 / 240 1480 / 1480 Medical Nutrition Assessment Dietitian: Malnutrition Criteria Met Start: 11/24/21 13:28 Freq: Status: Active Protocol: Document 11/24/21 13:28 (Rec: 11/24/21 13:28 [id number]) Nutrition Malnutrition Evidence of Malnutrition Exists Yes Malnutrition (moderate): Chronic Evidenced By Suboptimal Energy Intake ( Moderate),Weight Loss (Severe) ,Physical Changes (Moderate) Clinical Problem Chronic Disease or Condition Related Malnutrition Etiology acute on chronic moderate malnutrition r/t chronic inadequate energy intake exacerbated by recent GI dysfunction Signs/Symptoms as evidenced by reported unintentional wt loss of 6.2#/ 5.5% <1 month per pt; NFPA suggesting mild muscle wasting /fat loss in upper extremities , temporal, and orbital region ; BMI 18.0; estimated PO intake meeting <75% of estimated energy needs >3 months; 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 Continue to offer ensure w/ medpass for additional calories/protein if consumed. Daily wts. Lab / Micro Data Result Diagrams: 11/26/21 05:16 11/26/21 05:16 Labs: Laboratory Results - last 24 hr 11/26/21 05:16: WBC 18.7 H, RBC 3.93 L, Hgb 11.3 L, Hct 33.6 L, MCV 85.5, MCH 28.8, MCHC 33.6, RDW Std Deviation 41.9, RDW Coeff of Rhonda 13.3, Plt Count 388, MPV 9.2, Immature Gran % (Auto) 1.000 H, Neut % (Auto) 91.1 H, Lymph % (Auto) 5.7 L, [place] % (Auto) 2.1, Eos % (Auto) 0.0, Baso % (Auto) 0.1, Absolute Neuts (auto) 17.0 H, Absolute Lymphs (auto) 1.07, Nucleated RBC % 0 11/26/21 05:16: Sodium 139, Potassium 4.2, Chloride 109 H, Carbon Dioxide 27.0, Anion Gap 3 L, BUN 10, Creatinine 0.62, Estim Creat Clear Calc 35.52, Est GFR (MDRD) Af Amer 119, Est GFR (MDRD) Non-Af 99, BUN/Creatinine Ratio 16.2, Glucose 140 H, Calcium 7.8 L 11/26/21 05:16: ESR 35 H 11/26/21 05:16: Lactate Dehydrogenase 169, C-React Prot Ext Range 38.60 H 11/26/21 11:30: Procalcitonin 0.14 H 11/26/21 11:30: Lactic Acid 1.3 Micro: Microbiology 11/23/21 18:39 Blood Culture (Wb) - Left Wrist Blood Culture - Preliminary No growth in 48 hours. 11/23/21 18:32 Blood Culture (Wb) - Anticubital Left Blood Culture - Preliminary No growth in 48 hours. 11/23/21 20:45 Stool C. difficile DNA Amplification - Final 11/23/21 20:45 Stool Enteric Bacteriology - Final 11/23/21 20:45 Interface Orders Stool Lactoferrin - Final Rhythm Strip Rhythm Strip: Sinus Rhythm Rate: 74 Ectopy: PAC(s) Physical Exam Const alert General Appearance: cooperative Orientation / Consciousness: oriented to person HEENT hearing grossly normal bilaterally Head and Scalp: normal to inspection Face and Sinus: face symmetric Nose: external nose normal Mouth: oral and palatal mucosa normal Eyes conjunctivae normal General Eye: normal appearance of both eyes Neck full ROM General: normal visual inspection Lymph Lymphatic: no lymphadenopathy noted Chest inspection of chest normal and palpation of chest normal Chest: symmetrical chest wall rise Resp normal respiratory effort Effort and Inspection: able to speak in complete sentences Cardio regular rate GI non-distended Percussion: normal to percussion Rectal Exam: deferred Neuro Speech: speech normal Gait (Neuro): normal gait Assessment & Plan Assessment/Plan (1) Exacerbation of ulcerative colitis: PLAN: She has not had any signs of bleeding and her diarrhea stools have improved. However her white blood cell count went up. She will need colonoscopy to evaluate the colon for infectious as well as inflammatory bowel disease. Charges/Coding Visit Charges Inpatient E&M: 51188 Subs Hosp L2
[2021-11-26] MEDS: Bisacodyl 5 MG Tablet 20 MG PO (18:41)
[2021-11-26] MEDS: Ciprofloxacin 400 MG/200 ML BAG 200 MG IV (22:28)
[2021-11-26] MEDS: metroNIDAZOLE 500 MG/100 ML BAG 100 MG IV (23:44)
[2021-11-27] VITALS (16 sets, daily range): BP systolic 101–119; BP diastolic 49–67; PULSE 47–102; RESP 14–16; TEMP 36.2–36.7; O2SAT 95–100; BMI 19.0
[2021-11-27] MEDS: MethylPREDNISolone 125 MG/2 ML Vial 80 MG IV ×3 (05:44→21:09)
[2021-11-27] MEDS: metroNIDAZOLE 500 MG/100 ML BAG 100 MG IV ×2 (05:44→14:00)
[2021-11-27 05:46] LABS: Absolute Lymphocyte Count 0.89 X10^3/uL (0.83-4.51); Absolute Neutrophil Count 11.3 X10^3/uL (2.0-7.7); Basophil# 0.02 X10^3/uL; Basophil% 0.2 % (0-1); Hematocrit 31.4 % (37-47); Hemoglobin 10.3 g/dL (12.0-15.0); Lymphocyte # 0.89 X10^3/ul (0.83-4.51); Mean Corp Hgb Conc 32.8 g/dL (32-36); Mean Corpuscular Hgb 28.1 pg (27.0-32.0); Mean Corpuscular Volume 85.6 fL (81-99); Mean Platelet Vol. 9.2 fl (6.2-12.0); Monocyte# 0.36 X10^3/uL; Monocyte% 2.8 % (0-10); NRBC Flagged by Analyzer 0 % (0-5); Neutrophil # 11.34 X10^3/uL (2.7-7.7); Platelet Count 339 K/mm3 (150-450); RBC Distribution Width CV 13.4 % (11.6-14.6); RBC Distribution Width SD 42.4 fl (35.1-43.9); Red Blood Count 3.67 M/mm3 (4.2-5.4); White Blood Count 12.7 K/mm3 (4.4-11.0)
[2021-11-27 06:08] LABS: Anion Gap 4 (5-15); BUN 11 mg/dL (7-18); BUN/Creat Ratio 18.7 RATIO (10-20); Calcium,Total 7.8 mg/dL (8.5-10.1); Chloride 111 mmol/L (98-107); Creatinine, Serum 0.59 mg/dL (0.55-1.02); EST Glomerular Filtration Rate 105 mL/min (>60); Est Glom Filt Rate - Afr Amer 127 mL/min (>60); Estimated Creatinine Clearance 35.63 ml/min; Glucose 119 mg/dL (74-106); Potassium 3.3 mmol/L (3.5-5.1); Sodium Level 142 mmol/L (136-145)
[2021-11-27] MEDS: 0.9% Normal Saline 1,000 ML 15 ML IV (07:07)
[2021-11-27] MEDS: Potassium Chloride 10mEq/100mL 10 MEQ/100 ML IV.SOLN. 100 MEQ IV BOLUS ×4 (08:12→14:00)
[2021-11-27] MEDS: Dicyclomine 10 MG Capsule PO ×2 (08:16→16:41)
[2021-11-27] MEDS: Ciprofloxacin 400 MG/200 ML BAG 200 MG IV (09:26)
[2021-11-27] MEDS: Lactated Ringers 1,000 ML 15 ML IV (11:10)
--- NOTE | 2021-11-27 11:45 | COLBX_PTH ---
PATIENT: JOANN MERRITT LOC: [facility] U#:[id number] AGE/SX: 81/F ROOM: [facility] RE11/24/[address]: Dr. Cynthia Coon DO : 1940 BED: 1 DIS: 11/29/2021 SPEC #: [id number] RECD: 11/27/21 13:00 STATUS: CINTHYA LITTLE #: [id number] NICOLETTE: 11/27/21 11:[address]: Jared Draper DEPT: SURGICAL PATHOLOGY RECD BY: Sherly Paredes ENTERED: 11/27/21 13:52 SP TYPE: COLON BX NOHEMY DR: DO Dr. Chip Colmenares MD Mark Yoder, CABLE COVERER-C Tissues: A - Ileum, NOS B - COLON BIOPSY Procedures: Surgery Specimen Level IV HEADER OPERATION: Colonoscopy (MAC) PRE-OP DIAGNOSIS: Exacerbation of ulcerative colitis TISSUE SUBMITTED: A ? Terminal ileum biopsy, B ? Random colonic biopsy MICROSCOPIC DIAGNOSIS A. Terminal ileum, biopsy: Fragments of small intestinal mucosa, no pathologic diagnosis. B. Colon, random biopsy: Diffuse chronic active colitis. See microscopic description and comment. COMMENT B. These findings are consistent with inflammatory bowel disease (ulcerative colitis). Correlation with clinical, endoscopic findings and appropriate follow up are necessary. MICROSCOPIC DESCRIPTION Slides are reviewed. B. The specimen shows fragments of colonic mucosa with focal ulceration, acute and chronic inflammatory cell infiltrates in the lamina propria, cryptitis, crypt abscesses and glandular distortion. Granulomas are not seen. No evidence of dysplasia. GROSS DESCRIPTION A - Received in fixative is one container labeled with the patient's name and designated terminal ileum biopsy. The specimen consists of two irregular fragments of light vo soft tissue that in aggregate measure 0.8 x 0.4 x 0.1 cm. The specimen is totally submitted in one cassette. B - Received in fixative is one container labeled with the patient's name and designated random colonic biopsy. The specimen consists of multiple irregular fragments of light vo soft tissue that in aggregate measure 1.3 x 0.5 x 0.1 cm. The specimen is totally submitted in one cassette. / ALINA:jaleel 11/27/2021 TC:2 CPT: 13441 x2
--- NOTE | 2021-11-27 11:58 | PCM.PN.HOSP ---
Subjective Subjective Patient states she had a miserable night as she was going to the bathroom quite often secondary to her bowel prep. She still has having some left lower quadrant pain however she states she feels this may be chronic for her. Objective Data Objective Data Vital Signs: Vital Signs Temp Pulse Resp BP Pulse Ox 98.1 F 102 H 16 110/54 L 100 11/27/21 08:15 11/27/21 08:15 11/27/21 08:15 11/27/21 08:15 11/27/21 08:15 Oxygen Delivery Method Room Air Weight: 50.3 kg Body Mass Index (BMI) 19.0 Intake & Output: Intake and Output for Last 24 Hours 11/25/21 11/26/21 11/27/21 23:59 23:59 23:59 Intake Total 240 / 240 3516.25 / 6516.25 4342.75 / 4342.75 Output Total 2 / 2 Balance 240 / 240 3514.25 / 6514.25 4342.75 / 4342.75 Medical Nutrition Assessment Dietitian: Malnutrition Criteria Met Start: 11/24/21 13:28 Freq: Status: Active Protocol: Document 11/24/21 13:28 AG (Rec: 11/24/21 13:28 [id number]) Nutrition Malnutrition Evidence of Malnutrition Exists Yes Malnutrition (moderate): Chronic Evidenced By Suboptimal Energy Intake ( Moderate),Weight Loss (Severe) ,Physical Changes (Moderate) Clinical Problem Chronic Disease or Condition Related Malnutrition Etiology acute on chronic moderate malnutrition r/t chronic inadequate energy intake exacerbated by recent GI dysfunction Signs/Symptoms as evidenced by reported unintentional wt loss of 6.2#/ 5.5% <1 month per pt; NFPA suggesting mild muscle wasting /fat loss in upper extremities , temporal, and orbital region ; BMI 18.0; estimated PO intake meeting <75% of estimated energy needs >3 months; 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 Continue to offer ensure w/ medpass for additional calories/protein if consumed. Daily wts. Lab / Micro Data Result Diagrams: 11/27/21 05:26 11/27/21 05:26 Labs: Laboratory Results - last 24 hr 11/26/21 11:30: Procalcitonin 0.14 H 11/26/21 11:30: Lactic Acid 1.3 02/18/22 05:26: WBC 12.7 H, RBC 3.67 L, Hgb 10.3 L, Hct 31.4 L, MCV 85.6, MCH 28.1, MCHC 32.8, RDW Std Deviation 42.4, RDW Coeff of Rhonda 13.4, Plt Count 339, MPV 9.2, Immature Gran % (Auto) 1.000 H, Neut % (Auto) 89.0 H, Lymph % (Auto) 7.0 L, [place] % (Auto) 2.8, Eos % (Auto) 0.0, Baso % (Auto) 0.2, Absolute Neuts (auto) 11.3 H, Absolute Lymphs (auto) 0.89, Nucleated RBC % 0 11/27/21 05:26: Sodium 142, Potassium 3.3 L, Chloride 111 H, Carbon Dioxide 27.0, Anion Gap 4 L, BUN 11, Creatinine 0.59, Estim Creat Clear Calc 35.63, Est GFR (MDRD) Af Amer 127, Est GFR (MDRD) Non-Af 105, BUN/Creatinine Ratio 18.7, Glucose 119 H, Calcium 7.8 L Micro: Microbiology 11/26/21 09:55 Nasal Secretion SARS-CoV-2 Antigen (Rapid) - Final 11/23/21 18:39 Blood Culture (Wb) - Left Wrist Blood Culture - Preliminary No growth in 48 hours. 11/23/21 18:32 Blood Culture (Wb) - Anticubital Left Blood Culture - Preliminary No growth in 48 hours. 11/23/21 20:45 Stool C. difficile DNA Amplification - Final 11/23/21 20:45 Stool Enteric Bacteriology - Final 11/23/21 20:45 Interface Orders Stool Lactoferrin - Final Rhythm Strip Rhythm Strip: Sinus Rhythm Rate: 74 Ectopy: PAC(s) Physical Exam Const alert, oriented x3, no apparent distress and average body habitus Constitutional Narrative: Elderly white female sitting up in bed, appears comfortable nontoxic, watching television, granddaughter at bedside Exam Limitations: no limitations Nutritional Appearance: thin HEENT head/scalp atraumatic and moist oral mucous membranes Head and Scalp: normocephalic Resp normal respiratory effort, no retractions, no use of accessory muscles and clear to auscultation bilaterally Auscultation: Negative for crackles, rales, rhonchi or wheezes Cardio regular rate, regular rhythm, S1 normal heart sound, S2 normal heart sound, no rub, no gallops, no clicks and no JVD; Negative for no murmurs Cardio Narrative: 2 out of 6 systolic murmur GI normal to inspection, nondistended, normoactive bowel sounds, soft to palpation and non-distended GI Narrative: Diffusely tender with most specific point tenderness at left lower quadrant Palpation: tender Extremity no clubbing, cyanosis or edema Peripheral Pulses: Yes pulses 2+ throughout Neuro oriented x3, moves all extremities and no focal motor deficits Sensorium / Orientation: awake and alert Speech: speech normal Assessment & Plan Assessment/Plan (1) Exacerbation of ulcerative colitis: (2) Diarrhea: (3) GI bleed: PLAN: Acute exacerbation of ulcerative colitis -C. difficile and enteric panel are negative -Stool lactoferrin is positive -Ova parasites are pending -Blood cultures negative -CT of her abdomen pelvis showed multiple findings consistent with ulcerative colitis including mucosal enhancement with mural stratification most specifically in the ascending and transverse colon -Solu-Medrol 80 mg every 8 hours -Continue Cipro/Flagyl -She is status post right hemicolectomy for colon cancer -Colonoscopy t today Diarrhea -Suspect related to above -Improving -Continue IV fluids as ordered--> will discontinue once able to start p.o. diet after colonoscopy -Should improve with steroids Syncope -Likely related to volume depletion -Echo unremarkable -Continue to monitor on telemetry -No current telemetry events at this time GI bleeding -Suspect related to UC flare -Hemoglobin has remained stable with no need for transfusion -Should improve with steroid treatment Leukocytosis -Suspect reactive and from steroids -Now trending down -CT does not show any signs of infection at this time including abscesses as a result from her UC -Continue to monitor although I suspect her white count will increase given her steroid use At risk for malnutrition -Ensure Clear ordered--> will advance to regular Ensure when she is able to take a p.o. diet -Patient's BMI is low at 18 at this time DVT prophylaxis -Bilateral SCDs -Lovenox CODE STATUS -Full code as verified on admission Charges/Coding Visit Charges Inpatient E&M: 31691 Subs Hosp L2
--- NOTE | 2021-11-27 12:15 | OP.COLON_ITS ---
Patient Name: Shira Veras Procedure Date: 11/27/2021 11:31 AM Date of : 1940 Age: 81 Procedure: Colonoscopy Indications: Clinically significant diarrhea of unexplained origin Providers: Jared Draper DO Medicines: See the Anesthesia note for documentation of the administered medications Patient Profile: This is an 81 year old female. Refer to note in patient chart for documentation of history and physical. Last Colonoscopy: 5 years ago. Complications: No immediate complications. Procedure: Pre-Anesthesia Assessment: - Prior to the procedure, a History and Physical was performed, and patient medications and allergies were reviewed. The patient is competent. The risks and benefits of the procedure and the sedation options and risks were discussed with the patient. All questions were answered and informed consent was obtained. Patient identification and proposed procedure were verified by the physician in the pre-procedure area. Mental Status Examination: alert and oriented. Airway Examination: normal oropharyngeal airway and neck mobility. Respiratory Examination: clear to auscultation. Prophylactic Antibiotics: The patient does not require prophylactic antibiotics. Prior Anticoagulants: The patient has taken no previous anticoagulant or antiplatelet agents. ASA Grade Assessment: II - A patient with mild systemic disease. After reviewing the risks and benefits, the patient was deemed in satisfactory condition to undergo the procedure. The anesthesia plan was to use moderate sedation / analgesia (conscious sedation). Immediately prior to administration of medications, the patient was re-assessed for adequacy to receive sedatives. The heart rate, respiratory rate, oxygen saturations, blood pressure, adequacy of pulmonary ventilation, and response to care were monitored throughout the procedure. The physical status of the patient was re-assessed after the procedure. After I obtained informed consent, the scope was passed under direct vision. Throughout the procedure, the patient's blood pressure, pulse, and oxygen saturations were monitored continuously. The Colonoscope was introduced through the anus and advanced to the terminal ileum. The terminal ileum, ileocecal valve, appendiceal orifice, and rectum were photographed. Moderate Sedation: Moderate (conscious) sedation was administered by the endoscopy nurse and supervised by the endoscopist. The patient's oxygen saturation, heart rate, blood pressure and response to care were monitored. Total physician intraservice time was 15 minutes. Moderate (conscious) sedation was administered by the endoscopy nurse and supervised by the endoscopist. The patient's oxygen saturation, heart rate, blood pressure and response to care were monitored. Total physician intraservice time was 15 minutes. Scope In: 11:43:27 AM Scope Withdrawal Time 0 hours 11 minutes 27 seconds Scope Out: 12:04:20 PM Total Procedure Duration Time 0 hours 20 minutes 53 seconds Findings: The perianal and digital rectal examinations were normal. Inflammation was found in a continuous and circumferential pattern from the anus to the terminal ileum. This was graded as Hunter Score 3 (severe, with spontaneous bleeding, ulcerations). Biopsies were taken with a cold forceps for histology. Verification of patient identification for the specimen was done. Estimated blood loss was minimal. An area of the distal ileum and terminal ileum was congested. Biopsies were taken with a cold forceps for histology. Verification of patient identification for the specimen was done. Estimated blood loss was minimal. 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 Biopsied. - Congested mucosa in the distal ileum and in the terminal ileum. Biopsied. Recommendation: - Return patient to [facility] for ongoing care. - Advance diet as tolerated. - Vancocin (vancomycin) 125 mg PO QID for 4 weeks. - No recommendation at this time regarding repeat colonoscopy due to age. - Continue present medications. Procedure Code(s): --- Professional --- 11679, Colonoscopy, flexible; with biopsy, single or multiple 20554, 59, Moderate sedation services provided by the same physician or other qualified health nurse wound care performing the diagnostic or therapeutic service that the sedation supports, requiring the presence of an independent trained observer to assist in the monitoring of the patient's level of consciousness and physiological status; initial 15 minutes of intraservice time, patient age 5 years or older 28505, 59, Moderate sedation services provided by the same physician or other qualified health nurse wound care performing the diagnostic or therapeutic service that the sedation supports, requiring the presence of an independent trained observer to assist in the monitoring of the patient's level of consciousness and physiological status; initial 15 minutes of intraservice time, patient age 5 years or older CPT copyright 2017 [employer]. All rights reserved. The codes documented in this report are preliminary and upon development associate review may be revised to meet current compliance requirements. Jared Draper DO 11/27/2021 12:14:36 PM This report has been signed electronically. Number of Addenda: 1 Note Initiated On: 11/27/2021 11:31 AM Addendum Number: 1 Addendum Date: 06/28/2022 6:42:39 AM MAC was used for sedation during this procedure. Jared Draper DO 06/28/2022 6:42:43 AM This report has been signed electronically.
--- NOTE | 2021-11-27 12:16 | OP.CCLET_ITS ---
06/28/2022 Varinder Phoenix NP [address] [place] [address] Re : Colonoscopy procedure for Shira Veras Dear Mr. Phoenix This procedure was performed on Saturday, November 27, 2021. My impressions and recommendations are as follows: Impressions : - Severe (Hunter Score 3) pancolitis ulcerative colitis. Biopsied. - Congested mucosa in the distal ileum and in the terminal ileum. Biopsied. Recommendations : - Return patient to hospital [facility] for ongoing care. - Advance diet as tolerated. - Vancocin (vancomycin) 125 mg PO QID for 4 weeks. - No recommendation at this time regarding repeat colonoscopy due to age. - Continue present medications. My findings are described in the full procedure note, which is enclosed. If I can be of further assistance, please feel free to contact me at . Sincerely, Jared Draper, 11/27/2021 12:14:36 PM This report has been signed electronically.
[2021-11-27] MEDS: Ensure Clear 120 ML Liquid PO ×3 (14:01→21:08)
[2021-11-27] MEDS: 0.9% Saline Lock 10 ML Syringe IV (14:06)
[2021-11-27] MEDS: 0.9% Normal Saline 1,000 ML 75 ML IV (17:57)
[2021-11-27] MEDS: Vancomycin 125 MG/5 ML Susp PO.SYRINGE PO ×2 (18:55→23:03)
[2021-11-28] VITALS (9 sets, daily range): BP systolic 113–153; BP diastolic 58–67; PULSE 41–60; RESP 16–18; TEMP 36.3–36.8; O2SAT 96–100
[2021-11-28] MEDS: Dicyclomine 10 MG Capsule PO ×3 (06:40→16:36)
[2021-11-28] MEDS: 0.9% Normal Saline 1,000 ML 75 ML IV ×2 (06:40→17:02)
[2021-11-28] MEDS: Vancomycin 125 MG/5 ML Susp PO.SYRINGE PO ×4 (06:40→23:28)
[2021-11-28] MEDS: MethylPREDNISolone 125 MG/2 ML Vial 80 MG IV ×3 (06:40→22:28)
[2021-11-28 06:41] LABS: Absolute Lymphocyte Count 0.78 X10^3/uL (0.83-4.51); Absolute Neutrophil Count 6.9 X10^3/uL (2.0-7.7); Basophil# 0.02 X10^3/uL; Basophil% 0.2 % (0-1); Hematocrit 32.7 % (37-47); Hemoglobin 10.6 g/dL (12.0-15.0); Lymphocyte # 0.78 X10^3/ul (0.83-4.51); Lymphocyte % 9.7 % (19-41); Mean Corp Hgb Conc 32.4 g/dL (32-36); Mean Corpuscular Hgb 28.6 pg (27.0-32.0); Mean Corpuscular Volume 88.1 fL (81-99); Mean Platelet Vol. 9.7 fl (6.2-12.0); Monocyte# 0.23 X10^3/uL; Monocyte% 2.8 % (0-10); NRBC Flagged by Analyzer 0 % (0-5); Neutrophil # 6.93 X10^3/uL (2.7-7.7); Neutrophil % 85.8 % (47-70); Platelet Count 320 K/mm3 (150-450); RBC Distribution Width CV 13.9 % (11.6-14.6); RBC Distribution Width SD 44.3 fl (35.1-43.9); Red Blood Count 3.71 M/mm3 (4.2-5.4); White Blood Count 8.1 K/mm3 (4.4-11.0)
[2021-11-28 07:10] LABS: Anion Gap 3 (5-15); BUN 11 mg/dL (7-18); BUN/Creat Ratio 14.2 RATIO (10-20); Calcium,Total 7.6 mg/dL (8.5-10.1); Chloride 110 mmol/L (98-107); Creatinine, Serum 0.78 mg/dL (0.55-1.02); EST Glomerular Filtration Rate 76 mL/min (>60); Est Glom Filt Rate - Afr Amer 92 mL/min (>60); Estimated Creatinine Clearance 38.75 ml/min; Glucose 124 mg/dL (74-106); Potassium 4.3 mmol/L (3.5-5.1); Sodium Level 140 mmol/L (136-145)
[2021-11-28 07:53] LABS: Magnesium 2.2 mg/dL (1.6-2.6)
[2021-11-28] MEDS: azaTHIOprine 50 MG Tablet 100 MG PO (08:38)
[2021-11-28] MEDS: Enoxaparin 30 MG/0.3 ML Syringe SC (08:41)
--- NOTE | 2021-11-28 15:05 | PCM.PN.HOSP ---
Subjective Subjective 1 loose bowel movement this morning. Patient tolerated oatmeal and toast without any difficulty this morning. Had a short run of wide-complex tachycardia and had asymptomatic bradycardia at night however pulse is now 60 no further cardiac arrhythmias. Patient remains on telemetry. Objective Data Objective Data Vital Signs: Vital Signs Temp Pulse Resp BP Pulse Ox 98.2 F 60 16 132/58 H 97 11/28/21 14:45 11/28/21 14:45 11/28/21 14:45 11/28/21 14:45 11/28/21 14:45 Oxygen Delivery Method Room Air Weight: 57.7 kg Body Mass Index (BMI) 19.0 Intake & Output: Intake and Output for Last 24 Hours 11/26/21 11/27/21 11/28/21 23:59 23:59 23:59 Intake Total 3516.25 / 6516.25 6975.25 / 6975.25 1021.25 / 1021.25 Output Total 2 / 2 Balance 3514.25 / 6514.25 6975.25 / 6975.25 1021.25 / 1021.25 Medical Nutrition Assessment Dietitian: Malnutrition Criteria Met Start: 11/24/21 13:28 Freq: Status: Active Protocol: Document 11/27/21 13:14 JAROD (Rec: 11/27/21 13:14 JAROD [id number]) Nutrition Malnutrition Evidence of Malnutrition Exists Yes Malnutrition (moderate): Chronic Evidenced By Suboptimal Energy Intake ( Moderate),Weight Loss (Severe) ,Physical Changes (Moderate) Clinical Problem Chronic Disease or Condition Related Malnutrition Etiology acute on chronic moderate malnutrition r/t chronic inadequate energy intake exacerbated by recent GI dysfunction Signs/Symptoms as evidenced by reported unintentional wt loss of 18.1% wt loss of UBW; NFPA suggesting mild muscle wasting /fat loss in upper extremities , temporal, and orbital region ; BMI 19.0; estimated PO intake meeting <75% of estimated energy needs >3 months; reported limited PO intake x6 days [employer]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 Continue to offer ensure w/ medpass for additional calories/protein if consumed. Daily wts. Lab / Micro Data Result Diagrams: 11/28/21 05:50 11/28/21 05:50 Labs: Laboratory Results - last 24 hr 11/28/21 05:50: WBC 8.1, RBC 3.71 L, Hgb 10.6 L, Hct 32.7 L, MCV 88.1, MCH 28.6, MCHC 32.4, RDW Std Deviation 44.3 H, RDW Coeff of Rhonda 13.9, Plt Count 320, MPV 9.7, Immature Gran % (Auto) 1.500 H, Neut % (Auto) 85.8 H, Lymph % (Auto) 9.7 L, [place] % (Auto) 2.8, Eos % (Auto) 0.0, Baso % (Auto) 0.2, Absolute Neuts (auto) 6.9, Absolute Lymphs (auto) 0.78 L, Nucleated RBC % 0 11/28/21 05:50: Sodium 140, Potassium 4.3, Chloride 110 H, Carbon Dioxide 27.0, Anion Gap 3 L, BUN 11, Creatinine 0.78, Estim Creat Clear Calc 38.75, Est GFR (MDRD) Af Amer 92, Est GFR (MDRD) Non-Af 76, BUN/Creatinine Ratio 14.2, Glucose 124 H, Calcium 7.6 L 11/28/21 05:50: Magnesium 2.2 Micro: Microbiology 11/27/21 11:53 Stool Enteric Bacteriology - Final 11/27/21 11:54 Stool C. difficile DNA Amplification - Final 11/26/21 09:55 Nasal Secretion SARS-CoV-2 Antigen (Rapid) - Final 11/23/21 18:39 Blood Culture (Wb) - Left Wrist Blood Culture - Preliminary No growth in 48 hours. 11/23/21 18:32 Blood Culture (Wb) - Anticubital Left Blood Culture - Preliminary No growth in 48 hours. 11/23/21 20:45 Stool C. difficile DNA Amplification - Final 11/23/21 20:45 Stool Enteric Bacteriology - Final 11/23/21 20:45 Interface Orders Stool Lactoferrin - Final Rhythm Strip Rhythm Strip: Sinus Rhythm Rate: 74 Ectopy: PAC(s) Physical Exam Const alert, oriented x3, no apparent distress and average body habitus Constitutional Narrative: Elderly white female sitting up in bed, appears comfortable nontoxic, watching television Exam Limitations: no limitations Nutritional Appearance: thin HEENT head/scalp atraumatic and moist oral mucous membranes HEENT Narrative: Mallampati is 2, dentition is poor, no thrush Head and Scalp: normocephalic Resp normal respiratory effort, no retractions, no use of accessory muscles and clear to auscultation bilaterally Auscultation: Negative for crackles, rales, rhonchi or wheezes Cardio regular rate, regular rhythm, S1 normal heart sound, S2 normal heart sound, no rub, no gallops, no clicks and no JVD; Negative for no murmurs Cardio Narrative: 2 out of 6 systolic murmur GI normal to inspection, nondistended, normoactive bowel sounds, soft to palpation and non-distended GI Narrative: Diffusely tender with most specific point tenderness at left lower quadrant Palpation: tender Extremity no clubbing, cyanosis or edema Peripheral Pulses: Yes pulses 2+ throughout Neuro oriented x3, moves all extremities and no focal motor deficits Sensorium / Orientation: awake and alert Speech: speech normal Psych affect normal Assessment & Plan Assessment/Plan (1) Exacerbation of ulcerative colitis: (2) Diarrhea: (3) GI bleed: PLAN: Acute exacerbation of ulcerative colitis -C. difficile and enteric panel are negative -Stool lactoferrin is positive -Ova parasites are pending -Blood cultures negative -CT of her abdomen pelvis showed multiple findings consistent with ulcerative colitis including mucosal enhancement with mural stratification most specifically in the ascending and transverse colon -Continue Solu-Medrol 80 mg every 8 hours--> with plan to discharge on prednisone 40 mg daily -Cipro and Flagyl were discontinued -She is status post right hemicolectomy for colon cancer -Colonoscopy done 11/27/2021 and showed severe pancolitis that appeared consistent with ulcerative colitis and congested mucosa at the distal ileum into the terminal ileum-biopsies obtained -I talk to Dr. Draper--> would like to do 4 weeks of vancomycin as patient does have a history of C. difficile and he states the colon appeared very consistent with C. difficile despite her having a negative C. difficile PCR/toxin -Imuran was initiated Wide-complex tachycardia -Patient had short run -Mag and potassium level have been evaluated and are within normal limits with mag at 2.2 and potassium at 4.3 -Patient had an echocardiogram that was unremarkable -We will continue to monitor on telemetry Diarrhea -Suspect related to above -Improving -IV fluids have been discontinued -Should improve with steroids Syncope -Likely related to volume depletion -Echo unremarkable -Continue to monitor on telemetry -No current telemetry events at this time GI bleeding -Suspect related to UC flare -Hemoglobin has remained stable with no need for transfusion -Should improve with steroid treatment Leukocytosis -Resolved At risk for malnutrition -Continue Ensure -Patient's BMI is low at 18 at this time DVT prophylaxis -Bilateral SCDs -Lovenox CODE STATUS -Full code as verified on admission Charges/Coding Visit Charges Inpatient E&M: 28826 Subs Hosp L2
--- NOTE | 2021-11-28 21:32 | PCM.PROGNOTE ---
Subjective Subjective He had 2 diarrheal stools today with fecal incontinence. She is very upset that she thought that she was turning the corner but her diarrhea came back. She did not have any bloody stools. Objective Data Objective Data Vital Signs: Vital Signs Temp Pulse Resp BP Pulse Ox 98.2 F 47 L 16 123/65 H 97 11/28/21 16:32 11/28/21 18:59 11/28/21 16:32 11/28/21 16:32 11/28/21 16:32 Oxygen Delivery Method Room Air Weight: 127 lb 3.307 oz Body Mass Index (BMI) 19.0 Intake & Output: Intake and Output for Last 24 Hours 11/26/21 11/27/21 11/28/21 23:59 23:59 23:59 Intake Total 3516.25 / 6516.25 6975.25 / 6975.25 2158.75 / 2158.75 Output Total 2 / 2 Balance 3514.25 / 6514.25 6975.25 / 6975.25 2158.75 / 2158.75 Medical Nutrition Assessment Dietitian: Malnutrition Criteria Met Start: 11/24/21 13:28 Freq: Status: Active Protocol: Document 11/27/21 13:14 JAROD (Rec: 11/27/21 13:14 JAROD [id number]) Nutrition Malnutrition Evidence of Malnutrition Exists Yes Malnutrition (moderate): Chronic Evidenced By Suboptimal Energy Intake ( Moderate),Weight Loss (Severe) ,Physical Changes (Moderate) Clinical Problem Chronic Disease or Condition Related Malnutrition Etiology acute on chronic moderate malnutrition r/t chronic inadequate energy intake exacerbated by recent GI dysfunction Signs/Symptoms as evidenced by reported unintentional wt loss of 18.1% wt loss of UBW; NFPA suggesting mild muscle wasting /fat loss in upper extremities , temporal, and orbital region ; BMI 19.0; estimated PO intake meeting <75% of estimated energy needs >3 months; 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 Continue to offer ensure w/ medpass for additional calories/protein if consumed. Daily wts. Lab / Micro Data Result Diagrams: 11/28/21 05:50 11/28/21 05:50 Labs: Laboratory Results - last 24 hr 11/28/21 05:50: WBC 8.1, RBC 3.71 L, Hgb 10.6 L, Hct 32.7 L, MCV 88.1, MCH 28.6, MCHC 32.4, RDW Std Deviation 44.3 H, RDW Coeff of Rhonda 13.9, Plt Count 320, MPV 9.7, Immature Gran % (Auto) 1.500 H, Neut % (Auto) 85.8 H, Lymph % (Auto) 9.7 L, [place] % (Auto) 2.8, Eos % (Auto) 0.0, Baso % (Auto) 0.2, Absolute Neuts (auto) 6.9, Absolute Lymphs (auto) 0.78 L, Nucleated RBC % 0 11/28/21 05:50: Sodium 140, Potassium 4.3, Chloride 110 H, Carbon Dioxide 27.0, Anion Gap 3 L, BUN 11, Creatinine 0.78, Estim Creat Clear Calc 38.75, Est GFR (MDRD) Af Amer 92, Est GFR (MDRD) Non-Af 76, BUN/Creatinine Ratio 14.2, Glucose 124 H, Calcium 7.6 L 11/28/21 05:50: Magnesium 2.2 Micro: Microbiology 11/27/21 11:53 Stool Enteric Bacteriology - Final 11/27/21 11:54 Stool C. difficile DNA Amplification - Final 11/26/21 09:55 Nasal Secretion SARS-CoV-2 Antigen (Rapid) - Final 11/23/21 18:39 Blood Culture (Wb) - Left Wrist Blood Culture - Preliminary No growth in 48 hours. 11/23/21 18:32 Blood Culture (Wb) - Anticubital Left Blood Culture - Preliminary No growth in 48 hours. 11/23/21 20:45 Stool C. difficile DNA Amplification - Final 11/23/21 20:45 Stool Enteric Bacteriology - Final 11/23/21 20:45 Interface Orders Stool Lactoferrin - Final Rhythm Strip Rhythm Strip: Sinus Rhythm Rate: 74 Ectopy: PAC(s) Physical Exam Const alert General Appearance: cooperative Orientation / Consciousness: oriented to person HEENT hearing grossly normal bilaterally Head and Scalp: normal to inspection Face and Sinus: face symmetric Nose: external nose normal Mouth: oral and palatal mucosa normal Eyes conjunctivae normal General Eye: normal appearance of both eyes Neck full ROM General: normal visual inspection Lymph Lymphatic: no lymphadenopathy noted Chest inspection of chest normal and palpation of chest normal Chest: symmetrical chest wall rise Resp normal respiratory effort Effort and Inspection: able to speak in complete sentences Cardio regular rate GI non-distended Percussion: normal to percussion Rectal Exam: deferred Neuro Speech: speech normal Gait (Neuro): normal gait Assessment & Plan Assessment/Plan (1) Exacerbation of ulcerative colitis: PLAN: I had a long talk with her and explained that her lack of drug coverage affects the medicines that we can give her. Right now she is on steroids what can be given to her as an outpatient and we started her on Imuran instead of Remicade, Stelara or Humira which would be indicated at this time. She is also on prophylaxis for C. difficile due to her age and severe pancolitis. I will start her on colestipol and Lomotil and hopefully this will help her diarrhea. If she is stable and she can be DC'd home. Hopefully these medicines are too expensive for her as an outpatient with good Rx until we can get her drug coverage. Charges/Coding Visit Charges Inpatient E&M: 67044 Subs Hosp L2
[2021-11-28] MEDS: Diphenoxylate/Atrop 1 Tablet PO (22:27)
[2021-11-28] MEDS: MELATONIN 3 MG TABLET PO (23:29)
[2021-11-29] VITALS (7 sets, daily range): BP systolic 109–128; BP diastolic 58–72; PULSE 39–134; RESP 12–16; TEMP 36.6–36.8; O2SAT 95–97
[2021-11-29] MEDS: 0.9% Normal Saline 1,000 ML 75 ML IV (05:45)
[2021-11-29] MEDS: MethylPREDNISolone 125 MG/2 ML Vial 80 MG IV (06:34)
[2021-11-29] MEDS: Diphenoxylate/Atrop 1 Tablet PO (06:35)
[2021-11-29] MEDS: Dicyclomine 10 MG Capsule PO ×2 (06:35→11:17)
[2021-11-29] MEDS: Vancomycin 125 MG/5 ML Susp PO.SYRINGE PO ×2 (06:36→11:17)
[2021-11-29] MEDS: Enoxaparin 30 MG/0.3 ML Syringe SC (08:51)
[2021-11-29] MEDS: azaTHIOprine 50 MG Tablet 100 MG PO (08:51)
[2021-11-29] MEDS: Ensure Clear 120 ML Liquid PO (08:51)
--- NOTE | 2021-11-29 11:50 | DS.PCM_ITS ---
Providers Date of Admission: 11/24/21 Primary Care Physician: IDALMIS Hollis Consultations 11/23/21 17:59 Consult: Gastroenterology Routine Consulting Provider: Manolo Hamilton Reason for Consult: lower GI Bleed EMERGENT Consult: No MD Notified: Yes Date Notified: 11/23/21 Time Notified: 17:02 Method of Notification: Text Reason For Visit: SYNCOPE, GI BLEED Diagnosis Discharge Diagnosis (1) Exacerbation of ulcerative colitis: Status: Acute Code(s): K51.90 - Ulcerative colitis, unspecified, without complications (2) Severe malnutrition: Status: Acute Code(s): E43 - Unspecified severe protein-calorie malnutrition Medications at Discharge Home Medications azathioprine 100 mg PO DAILY #30 tab 11/28/21 prednisone 40 mg PO DAILY #60 tab 11/28/21 colestipol [Colestid] 2 g PO DAILY #30 tab 11/29/21 Hospital Course Operations None Procedures Colonoscopy Summary of Care Provided Minutes Spent on Discharge: 41 Hospital Course: Mrs. Veras is an 81-year-old white female who presented to the emergency department at [facility] with generalized weakness and syncope. The patient had a known history of colon cancer status post a hemicolectomy and has had issues with persistent diarrhea. She has had to cancel to colonoscopies. Upon presentation she reported persistent diarrhea and denied any jonel hematochezia but did indicate her stools were dark at times. She reported on admission that her stool had been consistently liquid for 4 days prior to presentation. She also complained of persistent left-sided lower abdominal cramping that has been a chronic issue for her at home as well. She came to the emergency department on the day of admission because she was feeling unwell and dizzy with lightheadedness. She evidently then slid down to the floor and passed out. This was unwitnessed. Neighbors came to the house after the patient called and asked them to do so. It is unclear for the length of the event and patient denies any other associated symptoms. She was admitted to the PCU for continued telemetry monitoring and gastroenterology was consulted for her bowels. An echocardiogram was performed and showed an EF of 75% with trivial mitral valve insufficiency, mild cuspid valve insufficiency, and right ventricular systolic pressure of 32 mmHg consistent with mild pulmonary hypertension. A CT of her abdomen and pelvis done on admission showed multiple findings consistent with ulcerative colitis including mucosal hyperenhancement with mural stratification especially noted in the ascending and transverse colon. Stool studies were obtained to rule out infectious etiologies and these were negative. She was then placed on steroids 80 mg D at the direction of gastroenterology as it was felt that this was most likely related to ulcerative colitis. She underwent a colonoscopy on 11/27/2021 at which time she was noted to have severe pancolitis and congested mucosa at the distal ileum and terminal ileum. Biopsies were taken during the scope and she was then returned to the medical coughlin. Given the appearance of her colon despite a negative initial C. difficile gastroenterology wanted vancomycin oral reinitiated until samples from the colonoscopy could be resulted and the patient was started on Imuran as well as medications to decrease her frequency of diarrhea including colestipol and Imotil. Unfortunately the patient does not have prescription coverage and therefore TNF inhibitors are too costly for her at this time. With the initiati on of the Imuran and her steroids the frequency of her stools did decrease significantly however she was still having loose stools most noted to occur after eating. She was frustrated by this but understood the limitations with regards to medication therapy and her insurance coverage. During her h ospitalization she was also noted to have bradycardia at night while sleeping however she was asymptomatic with this. She had few episodes of SVT that were asymptomatic. With her syncopal episode and admission there is question whether or not these are problematic and occurring with the presyncopal and syncopal episodes. Her TSH was normal. With a normal echo and no other significant findings we felt that she was stable to be discharged home however we did recommend an event monitor be pursued and this will be scheduled early next week. She was recommended to follow-up with her PCP within the next week and with Dr. Draper from gastroenterology within the next 2 weeks. Discharge diagnoses: Acute exacerbation of ulcerative colitis Chronic diarrhea SVT Syncope GI bleed Leukocytosis Severe malnutrition Physical Exam Const alert, oriented x3, no apparent distress, average body habitus and no limita tions Constitutional Narrative: Thin elderly white female sitting up in bed watching television, appears nontoxic and in no distress at this time however appears fr ustrated. General Appearance: cooperative, comfortable, well kempt and well developed Orientation / Consciousness: awake Exam Limitations: no limitations Nutritional Appearance: thin HEENT normocephalic, head/scalp atraumatic, hearing grossly normal bilaterally and m oist oral mucous membranes HEENT Narrative: Mallampati is 2, no thrush, dentition is fair Eyes PERRL, EOMs intact bilaterally and conjunctivae normal Eyes Narrative: No scleral icterus Neck no lymphadenopathy, supple and no JVD Neck Narrative: Trachea midline, no thyroid enlargement Resp normal respiratory effort, no retractions, no use of accessory muscles and clear to auscultation bilaterally Auscultation: Negative for crackles, rales, rhonchi or wheezes Cardio regular rate, regular rhythm, S1 normal heart sound, S2 normal heart sound, no rub, no gallops, no clicks and no JVD; Negative for no murmurs GI normal to inspection, nondistended, normoactive bowel sounds, soft to palpation and non-distended Palpation: tender Extremity no clubbing, cyanosis or edema Extremity Narrative: 2+ pedal pulses Skin no rashes or lesions noted, no wounds, skin turgor normal and no jaundice Neuro oriented x3, CN's II-XII intact bilaterally, moves all extremities, no focal motor deficits and no sensory deficits noted Neuro Narrative: Mild generalized weakness but no focal deficits Sensorium / Orientation: awake and alert Speech: speech normal Psych Psych Narrative: Appears frustrated and affect is flat Medical Records Data Medical Nutrition Assessment Dietitian: Malnutrition Criteria Met Start: 11/24/21 13:28 Freq: Status: Active Protocol: Document 11/27/21 13:14 [facility] (Rec: 11/27/21 13:14 [facility] [id number]) Nutrition Malnutrition Evidence of Malnutrition Exists Yes Malnutrition (moderate): Chronic Evidenced By Suboptimal Energy Intake ( Moderate),Weight Loss (Severe) ,Physical Changes (Moderate) Clinical Problem Chronic Disease or Condition Related Malnutrition Etiology acute on chronic moderate malnutrition r/t chronic inadequate energy intake exacerbated by recent GI dysfunction Signs/Symptoms as evidenced by reported unintentional wt loss of 18.1% wt loss of UBW; NFPA suggesting mild muscle wasting /fat loss in upper extremities , temporal, and orbital region ; BMI 19.0; estimated PO intake meeting <75% of estimated energy needs >3 months; reported limited PO 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 Continue to offer ensure w/ medpass for additional calories/protein if consumed. Daily wts. Weight / BMI Weight Weight: 56.6 kg Body Mass Index (BMI) 19.0 ABG / Lab / Microbiology Data Result Diagrams: 11/28/21 05:50 11/28/21 05:50 Microbiology: Microbiology 11/23/21 18:39 Blood Culture (Wb) - Left Wrist Blood Culture - Final No growth in 5 days. 11/23/21 18:32 Blood Culture (Wb) - Anticubital Left Blood Culture - Final No growth in 5 days. 11/27/21 11:53 Stool Enteric Bacteriology - Final 11/27/21 11:54 Stool C. difficile DNA Amplification - Final 11/26/21 09:55 Nasal Secretion SARS-CoV-2 Antigen (Rapid) - Final 11/23/21 20:45 Stool C. difficile DNA Amplification - Final 11/23/21 20:45 Stool Enteric Bacteriology - Final 11/23/21 20:45 Interface Orders Stool Lactoferrin - Final D/C Instructions Discharge Diet: No restrictions Discharge Activity: Return to Normal Activity Meaningful Use Info Meaningful Use Diagnoses (Choose all that apply): None applicable Discharge Plan Admission Admit Date/Time: 11/24/21 10:26 Primary Reason for Your Visit: Diarrhea and syncope Attending Provider: Cynthia Coon Primary Care Provider: Varinder Phoenix NP Discharge Orders/Prescriptions Prescriptions: New azathioprine 50 mg Tablet 100 mg PO DAILY Qty: 30 RF: 0 prednisone 20 mg tablet 40 mg PO DAILY Qty: 60 RF: 0 colestipol [Colestid] 1 gram Tablet 2 g PO DAILY Qty: 30 RF: 0 Discontinued acetaminophen 500 mg Tablet 500 mg PO BID PRN (Reason: ARTHRITIS) RF: 0 Other Ambulatory Orders: 30-Day Event Recorder (Routine) Location: None Selected Ordered By: Dr. Cynthia Coon Referrals / Follow Up: Jared Draper DO [STAFF PHYSICIAN] - Within 2 Weeks Varinder Phoenix NP, [facility] [Primary Care Provider] - In 1 Week Disposition Disposition (needs filled in before D/C Order can be placed): Home, Self Care Charges/Coding Visit Charges Inpatient E&M: [id number] Disch Hosp
[2021-11-29 12:00] LABS: Erythrocyte Sedimentation Rate 10 mm/hr (0-30)
[2021-11-29 12:09] LABS: ALB/GLOB Ratio 0.6 RATIO (0.9-2.4); AST(SGOT) 10 U/L (15-37); Alanine Aminotransfer ALT/SGPT 13 U/L (13-56); Alkaline Phosphatase 62 U/L (45-117); Anion Gap 6 (5-15); BUN 12 mg/dL (7-18); BUN/Creat Ratio 14.3 RATIO (10-20); Calcium,Total 7.5 mg/dL (8.5-10.1); Chloride 112 mmol/L (98-107); Creatinine, Serum 0.84 mg/dL (0.55-1.02); EST Glomerular Filtration Rate 69 mL/min (>60); Est Glom Filt Rate - Afr Amer 84 mL/min (>60); Estimated Creatinine Clearance 46.13 ml/min; Globulin 3.2 g/dL (2.2-4.2); Glucose 157 mg/dL (74-106); Potassium 3.5 mmol/L (3.5-5.1); Protein, Total 5.2 g/dL (6.4-8.2); Sodium Level 142 mmol/L (136-145)
[2021-11-29 12:10] LABS: Amylase 83 U/L (25-115); CRP 7.01 mg/L (0.0-3.0); Lipase 118 U/L (73-393)
== END 2021-11-29 14:54 | disposition home or self-care (01) | DRG 385 ==
LOC: ED 15:50 → PCU 17:17
PROVIDERS: Internal Medicine; Internal Medicine Gastroenterology; Admitting Provider Internal Medicine; Emergency Provider Emergency Medicine; PCP Nurse Practitioner Family; Visit Provider Internal Medicine
PROC: 0DJD8ZZ Inspection of Lower Intestinal Tract, Via Natural or Artificial Opening Endoscopic (ICD-10-PCS; CPT 45378; principal; 2021-11-27 11:40)
DX: K51.00 Ulcerative (chronic) pancolitis without complications (principal); E43 Unspecified severe protein-calorie malnutrition; I47.2 Ventricular tachycardia; Z68.1 Body mass index [BMI] 19.9 or less, adult; F17.210 Nicotine dependence, cigarettes, uncomplicated; R55 Syncope and collapse; Z66 Do not resuscitate; Z90.49 Acquired absence of other specified parts of digestive tract; I49.1 Atrial premature depolarization; Z85.038 Personal history of other malignant neoplasm of large intestine; Z79.899 Other long term (current) drug therapy
CPT/HCPCS: 36415; 71045; 74177; 80048; 80053; 81001; 82150; 83605; 83615; 83630; 83690; 83735; 84145; 84443; 84484; 85025; 85652; 86140; 86850; 86900; 86901; 87040; 87177; 87209; 87426; 87493; 87506; 88305; 93005; 93306; 97110; 97162; 97166; 97530; 97535; 97802; 99251; 99285; J7030; J7040; J7120; P9612; Q9967; A4216; G0463; J0744; J2405

== ENCOUNTER 2022-02-03 18:34 | Inpatient (IN) | payer MEDICARE, OTHER, SELFPAY ==
[2022-02-03 18:35] VITALS: BP 137/70; PULSE 96; RESP 16; TEMP 36.5; O2SAT 96; BMI 20.5
--- NOTE | 2022-02-03 19:17 | CT_ITS ---
INDICATION: abd pain EXAMINATION: CT ABDOMEN AND PELVIS WITH CONTRAST - CT Abdomen And Pelvis W/ Contrast Injection TECHNIQUE: Helically acquired images were obtained of the abdomen and pelvis following IV contrast. A radiation dose optimization technique was used for this scan. IV Contrast dosage and agent: 100 cc Isovue-300 Oral contrast: None. COMPARISON: 11/23/2021 FINDINGS: LOWER CHEST: Bibasilar dependent and/or fibrotic changes. No cardiomegaly or pericardial effusion. LIVER: Homogeneous. No focal mass. GALLBLADDER AND BILIARY TREE: No calcified gallstones. Gallbladder contracted. No intra- or extrahepatic biliary ductal dilation. PANCREAS: No focal cystic or solid mass. SPLEEN: Normal size without focal cystic or solid mass. ADRENAL GLANDS: No nodules. KIDNEYS AND URETERS: Normal renal size and position. No hydronephrosis. PERITONEUM: No ascites or free air. BOWEL: No evidence of acute appendicitis. No stomach or bowel distension. Diffuse bowel wall thickening and enhancement with mild pericolonic fat stranding, findings extend from the ascending colon through the transverse, descending and rectosigmoid colon similar to prior study. LYMPH NODES: No enlarged mesenteric or retroperitoneal lymph nodes. VESSELS: Aorta is non-dilated. URINARY BLADDER: Unremarkable. REPRODUCTIVE ORGANS: No pelvic masses. ABDOMINAL WALL: No discrete abdominal or pelvic wall hernia. BONES: No lytic or blastic abnormality. CT/Abdomen/Pelvis W IV Cont ONLY IMPRESSION: Findings consistent with diffuse colitis. Appearance is similar to the prior study. Electronically Signed: Enrique Faustin MD at 21:32 EDT ,
--- NOTE | 2022-02-03 19:19 | EDS_ITS ---
HPI History of Present Illness Chief Complaint: Abn Labs Informant: patient and family Onset/Context/Timing Onset: Today and Days Current Severity: Mild Maximum Severity: Mild Narrative Narrative: 81-year-old female history of ulcerative colitis. Sees cheese specialist Dr. Draper. She is also history of GI bleed colon cancer partial colectomy. She has had an appendectomy, hysterectomy and cholecystectomy. Saw her GI doctor today in the office. They did labs her white count came back at 25,000 and I sent her to ER to be evaluated. States she has had subjective fever and chills. No dysuria. Mild diarrhea. Mild cough. Nonproductive. No shortness of breath. Prior similar symptoms: Yes Recent Illness/Hospitalization: No PFSH PFSH Medical History Arthritis Cataract Chronic gastrointestinal bleeding Diarrhea Frequent headaches History of colon cancer IBS (irritable bowel syndrome) Non-smoker Seasonal allergies Syncope Syncope Syncope and collapse Home Medications azathioprine 100 mg PO DAILY #30 tab 11/28/21 [Rx Last Taken Unknown] prednisone 40 mg PO DAILY #60 tab 11/28/21 [Rx Last Taken Unknown] colestipol [Colestid] 2 g PO DAILY #30 tab 11/29/21 [Rx Last Taken Unknown] colestipol 1 gram tablet 1 g PO BID #60 tab 02/03/22 [Rx Last Taken Unknown] dicyclomine 20 mg tablet 20 mg PO TID PRN #30 tab 02/03/22 [Rx Last Taken Unknown] prednisone 50 mg tablet 50 mg PO DAILY #30 tab 02/03/22 [Rx Last Taken Unknown] Allergy/AdvReac Type Severity Reaction Status Date / Time Sulfa (Sulfonamide Allergy Rash Verified 02/03/22 18:35 Antibiotics) amoxicillin [From Augmentin] AdvReac Vomiting Verified 02/03/22 18:35 clavulanic acid AdvReac Vomiting Verified 02/03/22 18:35 [From Augmentin] fexofenadine [From Rose] AdvReac Other Verified 02/03/22 18:35 hydrocodone AdvReac out of it Verified 02/03/22 18:35 Family History Mother No problems noted. Grandmother Arthritis Grandfather Arthritis Other Heart disease Surgical History H/O breast biopsy S/P cholecystectomy S/P partial colectomy Surgical history of tubal ligation Social History household members: family housing: house Smoking Status: Never smoker alcohol intake: never substance use type: does not use what type of physical activity do you participate in: walking frequency: daily ROS ROS ED ROS Narrative Abdominal discomfort. Fever and chills subjectively. Diarrhea. Review of Systems ROS Unobtainable: Denies due to encephalopathy Constitutional Constitutional ED: Reports chills, fever(s) and subjective; Denies sweats Eyes Eyes: Denies change in vision ENT ENT ED: Denies ear pain, rhinorrhea or sore throat Cardiovascular Cardiovascular: Denies chest pain or palpitations Respiratory/Chest Respiratory/Chest: Reports cough; Denies dyspnea or sputum Gastrointestinal Gastrointestinal: Reports abdominal pain, diarrhea and nausea; Denies vomiting Genitourinary Genitourinary ED: Denies dysuria or hematuria Musculoskeletal Musculoskeletal: Denies myalgias Integumentary Denies rash Neurologic Neurologic: Denies headache(s) Psychiatric Psychiatric: Denies depression Endocrine Endocrinology: Denies polyuria Allergic/Immunologic Allergic/Immunologic ED: Denies urticaria EXAM Physical Exam Narrative Exam Narrative: 81-year-old female no acute distress vital signs stable afebrile. Does not look septic or toxic. H EENT exam unremarkable. Neck nontender. Lungs clear to auscultation. Heart regular rhythm no murmur. Rate about 90. Abdomen soft nondistended normal bowel sounds no peritoneal signs. Moving all 4 extremities. Nontender no edema. Back nontender. Neurologically she is awake alert. Const Vital Signs: 02/03/22 18:35 02/03/22 20:11 02/03/22 21:15 Temperature 97.7 F L 100.3 F H 100.3 F H Temperature Source Temporal Oral Oral Pulse Rate 96 80 98 Respiratory Rate 16 15 29 H Respiratory Effort Normal Respiratory Pattern Normal Blood Pressure 137/70 H 143/61 H 146/66 H Blood Pressure Mean 92 88 92 Pulse Ox 96 95 99 Oxygen Delivery Method Room Air Room Air Room Air Positive well nourished and well developed; Negative for obese, cachectic, contractures or unkempt General Appearance ED: well developed and NAD; Negative for unkempt, cachectic, contractures, cyanotic, diaphoretic or pallor Nutritional Appearance: Negative for cachectic or obese HEENT Reports moist mucous membranes HEENT Narrative: Per patient request I did look in her left ear and she has a cerumen impaction. States she is recently decreased hearing. Negative for trauma or tenderness Eyes PERRL and EOMs intact bilaterally Neck no lymphadenopathy, supple and no JVD General: Negative for tenderness Chest Wall inspection of chest normal and palpation of chest normal Resp normal respiratory effort and clear to auscultation bilaterally Effort and Inspection: Negative for pain with movement Auscultation: Negative for rales, rhonchi or wheezes Cardio regular rate, S1 normal heart sound, S2 normal heart sound and no murmurs GI normal to inspection, nondistended, normoactive bowel sounds, non-tender, non- distended and no masses Auscultation: normoactive bowel sounds Palpation: soft; Negative for tender, guarding or rebound tenderness present Back/Spine no CVA tenderness General Back: Negative for CVA tenderness Cervical Spine: Negative for cervical spine tenderness Thoracic Spine / Upper Back: Negative for thoracic spinal tenderness Extremity normal to inspection General Extremety ED: Negative for edema or tenderness General Extremity: Negative for edema Neuro oriented x3 Sensorium / Orientation: alert; Negative for lethargic or stuporous Motor Exam: strength 5/5 throughout Psych mental status grossly normal Appearance: Negative for unkempt Mood & Affect: Negative for depressed or tearful Skin no rashes or lesions noted and no wounds General Skin Exam: Negative for jaundice or pallor MDM MDM MDM Narrative Medical decision making narrative: 81-year-old with ulcerative colitis. Recently has not been on steroids but was given a dose today. Blood work from the GI doctor's office shows elevated white count. She has had subjective fever and chills. She will be worked up from an infectious etiology. Repeat exam patient is doing well at 10:05 PM. Exam no significant change. I gave her water and she was able to drink easily. Due to her leukocytosis, her ulcerative colitis flare and age she will be admitted. I spoke to the family in the room, her daughter is a nurse practitioner in the hospital and the hospitalist. We will start her on IV Cipro, Flagyl and Solu-Medrol. Lab Data Attestation: I reviewed the patient's lab results. Lab results narrative: CBC shows elevated white count of 21.6 it was 25 earlier today. H&H of 13 and 39. Platelets 347. 81% neutrophils. No bands. Electrolytes show a gap of 8 normal BUN and creatinine. Glucose of 101. Lactic acid is normal 1.1. Urinalysis unremarkable. No white cells or red cells on the microscopic. No nitrates or bacteria. Labs: Laboratory Results - last 24 hr 02/03/22 02/03/22 02/03/22 19:50 19:50 19:50 WBC 21.6 H RBC 4.56 Hgb 13.0 Hct 39.8 MCV 87.3 MCH 28.5 MCHC 32.7 RDW Std Deviation 46.5 H RDW Coeff of Rhonda 14.4 Plt Count 347 MPV 9.9 Immature Gran % (Auto) 0.800 Neut % (Auto) 81.3 H Lymph % (Auto) 9.6 L [place] % (Auto) 6.7 Eos % (Auto) 1.1 Baso % (Auto) 0.5 Absolute Neuts (auto) 17.6 H Absolute Lymphs (auto) 2.07 Nucleated RBC % 0 Sodium 138 Potassium 3.5 Chloride 103 Carbon Dioxide 27.0 Anion Gap 8 BUN 8 Creatinine 0.74 Estim Creat Clear Calc 38.56 Est GFR (MDRD) Af Amer 97 Est GFR (MDRD) Non-Af 80 BUN/Creatinine Ratio 10.8 Glucose 101 Lactic Acid 1.1 Calcium 8.4 L Urine Color Urine Clarity Urine pH Ur Specific [place] Urine Protein Urine Glucose (UA) Urine Ketones Urine Occult Blood Urine Nitrite Urine Bilirubin Urine Urobilinogen Ur Leukocyte Esterase Urine RBC Urine WBC Ur Squamous Epith Cells Urine Bacteria Urine Mucus 02/03/22 21:20 WBC RBC Hgb Hct MCV MCH MCHC RDW Std Deviation RDW Coeff of Rhonda Plt Count MPV Immature Gran % (Auto) Neut % (Auto) Lymph % (Auto) [place] % (Auto) Eos % (Auto) Baso % (Auto) Absolute Neuts (auto) Absolute Lymphs (auto) Nucleated RBC % Sodium Potassium Chloride Carbon Dioxide Anion Gap BUN Creatinine Estim Creat Clear Calc Est GFR (MDRD) Af Amer Est GFR (MDRD) Non-Af BUN/Creatinine Ratio Glucose Lactic Acid Calcium Urine Color Yellow Urine Clarity Clear Urine pH 6.5 Ur Specific [place] 1.010 Urine Protein 15 H Urine Glucose (UA) Normal Urine Ketones 50 H Urine Occult Blood 150 H Urine Nitrite Negative Urine Bilirubin Negative Urine Urobilinogen Normal Ur Leukocyte Esterase 500 H Urine RBC 0-5 SEEN Urine WBC 0-5 SEEN Ur Squamous Epith Cells 0 SEEN Urine Bacteria 0 SEEN Urine Mucus 0 SEEN Radiography Chest X-Ray - ED: 1 View, Read by ED Physician, Heart, Lungs, Mediastinum, Bony Structures, No Acute Disease and Chronic Changes Diagnostic Testing: Clinical Impression(s) from Imaging Studies Abdomen/Pelvis CT 02/03/22 19:17 IMPRESSION: Findings consistent with diffuse colitis. Appearance is similar to the prior study. Electronically Signed: Enrique Faustin MD at 21:32 EDT , Chest X-Ray 02/03/22 19:32 IMPRESSION: No acute cardiopulmonary process. Electronically Signed: Ganesh Lockwood MD at 19:53 EDT , Chest x-ray, portable, single view interpreted by myself and radiologist shows no acute abnormality. Normal cardiac silhouette. No infiltrate. Discharge Plan Dx/Rx/DC Orders Clinical Impression: Ulcerative colitis, Leukocytosis Disposition Disposition: Acute Care [facility]
--- NOTE | 2022-02-03 19:32 | RAD_ITS ---
STUDY: X-RAY CHEST REASON FOR EXAM: Female, 81 years old. cough TECHNIQUE: 1 view COMPARISON: 11/23/2021 FINDINGS: Cardiomediastinal silhouette is unremarkable. Costophrenic angles are sharp. Lungs are clear. The trachea is midline. There is no pneumothorax. The bones are grossly intact. RAD/Chest 1 View (Portable) IMPRESSION: No acute cardiopulmonary process. Electronically Signed: Ganesh Lockwood MD at 19:53 EDT ,
[2022-02-03] MEDS: Ondansetron 4 MG/2 ML Vial IV (20:05)
[2022-02-03] MEDS: 0.9% Normal Saline 1,000 ML 1000 ML IV (20:05)
[2022-02-03 20:11] VITALS: BP 143/61; PULSE 80; RESP 15; TEMP 37.9; O2SAT 95
[2022-02-03 20:57] LABS: Absolute Lymphocyte Count 2.07 X10^3/uL (0.83-4.51); Absolute Neutrophil Count 17.6 X10^3/uL (2.0-7.7); Basophil% 0.5 % (0-1); Eosinophil# 0.24 X10^3/uL; Eosinophils% 1.1 % (0-5); Hematocrit 39.8 % (37-47); Lymphocyte # 2.07 X10^3/ul (0.83-4.51); Lymphocyte % 9.6 % (19-41); Mean Corp Hgb Conc 32.7 g/dL (32-36); Mean Corpuscular Hgb 28.5 pg (27.0-32.0); Mean Corpuscular Volume 87.3 fL (81-99); Mean Platelet Vol. 9.9 fl (6.2-12.0); Monocyte# 1.45 X10^3/uL; Monocyte% 6.7 % (0-10); NRBC Flagged by Analyzer 0 % (0-5); Neutrophil # 17.56 X10^3/uL (2.7-7.7); Neutrophil % 81.3 % (47-70); Platelet Count 347 K/mm3 (150-450); RBC Distribution Width CV 14.4 % (11.6-14.6); RBC Distribution Width SD 46.5 fl (35.1-43.9); Red Blood Count 4.56 M/mm3 (4.2-5.4); White Blood Count 21.6 K/mm3 (4.4-11.0)
[2022-02-03 21:12] LABS: Anion Gap 8 (5-15); BUN 8 mg/dL (7-18); BUN/Creat Ratio 10.8 RATIO (10-20); Calcium,Total 8.4 mg/dL (8.5-10.1); Chloride 103 mmol/L (98-107); Creatinine, Serum 0.74 mg/dL (0.55-1.02); EST Glomerular Filtration Rate 80 mL/min (>60); Est Glom Filt Rate - Afr Amer 97 mL/min (>60); Estimated Creatinine Clearance 38.56 ml/min; Glucose 101 mg/dL (74-106); Potassium 3.5 mmol/L (3.5-5.1); Sodium Level 138 mmol/L (136-145)
[2022-02-03 21:15] VITALS: BP 146/66; PULSE 98; RESP 29; TEMP 37.9; O2SAT 99
[2022-02-03 21:18] LABS: Lactic Acid 1.1 mmol/L (0.4-1.9)
[2022-02-03 21:29] LABS: Bacteria 0 SEEN /hpf (None Seen); Mucous, Urine 0 SEEN /hpf (<or=2+); Squamous Epithelial Cells - UA 0 SEEN /hpf (5-10)
[2022-02-03 21:30] LABS: Color, Urine Yellow (Yellow); Glucose, Dipstick Normal (Normal); Ketone-Dipstick 50 mg/dl (Negative); Leukocyte Esterase-Dipstick 500 /ul (Negative); Nitrite-Dipstick Negative (Negative); Occult Blood-Urine 150 /ul (Negative); Protein-Dipstick 15 mg/dl (Negative); Urine Bilirubin Dipstick Negative (Negative); Urine Clarity Clear (Clear); Urine Urobilinogen Normal (Normal); Urine pH 6.5 (5.0 - 8.0)
[2022-02-03 21:41] LABS: Red Blood Cells-Urine 0-5 SEEN /hpf (0-5); White Blood Cells 0-5 SEEN /hpf (0-5)
[2022-02-03 22:14] VITALS: BP 139/60; PULSE 84; RESP 17; TEMP 37.7; O2SAT 96
--- NOTE | 2022-02-03 22:18 | PCM.HP.STD ---
HPI - General General Date of Admission: 02/03/22 HPI Narrative JOANN MERRITT, is a 81 F with a significant history of ulcerative colitis; colon cancer status post colectomy; cholecystectomy; appendectomy and hysterectomy who presents to the emergency department with 1 week history of persistent but intermittent diarrhea. Associated for symptom is crampy abdominal pain; tenesmus;; and subjective fever. Further she has nausea without vomiting She went to see her crepe sole wire brusher and because of abnormal labs she was instructed come to emergency department. Her abnormal labs with elevated CRP and leukocytosis. [facility]LY [facility] Medical History Arthritis Cataract Chronic gastrointestinal bleeding Diarrhea Frequent headaches History of colon cancer IBS (irritable bowel syndrome) Non-smoker Seasonal allergies Syncope Syncope Syncope and collapse Home Medications azathioprine 100 mg PO DAILY #30 tab 11/28/21 [Rx Last Taken Unknown] prednisone 40 mg PO DAILY #60 tab 11/28/21 [Rx Last Taken Unknown] colestipol [Colestid] 2 g PO DAILY #30 tab 11/29/21 [Rx Last Taken Unknown] colestipol 1 gram tablet 1 g PO BID #60 tab 02/03/22 [Rx Last Taken Unknown] dicyclomine 20 mg tablet 20 mg PO TID PRN #30 tab 02/03/22 [Rx Last Taken Unknown] prednisone 50 mg tablet 50 mg PO DAILY #30 tab 02/03/22 [Rx Last Taken Unknown] Allergy/AdvReac Type Severity Reaction Status Date / Time Sulfa (Sulfonamide Allergy Rash Verified 02/03/22 18:35 Antibiotics) amoxicillin [From Augmentin] AdvReac Vomiting Verified 02/03/22 18:35 clavulanic acid AdvReac Vomiting Verified 02/03/22 18:35 [From Augmentin] fexofenadine [From Rose] AdvReac Other Verified 02/03/22 18:35 hydrocodone AdvReac out of it Verified 02/03/22 18:35 Family History Mother No problems noted. Grandmother Arthritis Grandfather Arthritis Other Heart disease Surgical History H/O breast biopsy S/P cholecystectomy S/P partial colectomy Surgical history of tubal ligation Social History household members: family housing: house Smoking Status: Never smoker alcohol intake: never substance use type: does not use what type of physical activity do you participate in: walking frequency: daily ROS ROS Narrative Constitutional: Reports objective fever and anorexia. Denies chills and change in weight Eyes: Denies blurry vision, change in eye color, change in vision, discharge from eye(s), double vision, erythema, eye pain, loss of vision or other HEENT: Denies abnormal hearing, dysphagia, ear pain, epistaxis, headache(s), hearing loss, nasal congestion, nasal discharge, post nasal drip, sinus pressure, sore throat or other Cardiovascular: Denies chest pain or palpitations. Denies dyspnea on exertion, orthopnea and paroxysmal nocturnal dyspnea Respiratory/Chest: Denies cough, excessive phlegm production, shortness of breath with exertion and wheezing Gastrointestinal: Has abdominal pain. Has diarrhea and nausea. Denies coffee ground emesis, constipation, dyspepsia, hematemesis, hematochezia, melena, vomiting or other Genitourinary: Denies burning urination, difficulty urinating, dysuria, hematuria, nocturia, urinary frequency, urinary hesitancy, urinary incontinence, urinary urgency or other Musculoskeletal: Denies arthralgias, back pain, joint pain, joint stiffness, joint swelling, myalgias, neck pain or other Neurologic: Denies abnormal gait, abnormal speech, confusion, disequilibrium, dizziness, focal weakness, numbness, paresthesias, seizure-like activity, seizures, syncope, tingling, tremor(s) or other Psychiatric: Denies anxiety, depression, homicidal ideation, suicidal ideation or other Endocrinology: Denies change in body appearance, cold intolerance, excessive sweating, heat intolerance, polydipsia, polyuria or other Hematologic/Lymphatic: Denies anemia, easy bleeding, easy bruising, lymphadenopathy or other Integumentary: Denies rashes Allergic/Immunologic: Denies rhinitis, hives, eczema, or other Vital Signs Vital Signs Vital Signs: 02/03/22 18:35 02/03/22 20:11 02/03/22 21:15 Temperature 97.7 F L 100.3 F H 100.3 F H Temperature Source Temporal Oral Oral Pulse Rate 96 80 98 Respiratory Rate 16 15 29 H Respiratory Effort Normal Respiratory Pattern Normal Blood Pressure 137/70 H 143/61 H 146/66 H Blood Pressure Mean 92 88 92 Pulse Ox 96 95 99 Oxygen Delivery Method Room Air Room Air Room Air 02/03/22 22:14 Temperature 99.8 F H Temperature Source Oral Pulse Rate 84 Respiratory Rate 17 Respiratory Effort Respiratory Pattern Blood Pressure 139/60 H Blood Pressure Mean 86 Pulse Ox 96 Oxygen Delivery Method Room Air Weight Weight: 54.431 kg Body Mass Index (BMI) 20.5 Physical Exam Narrative Physical exam: General: Well-nourished, well-developed. Head: Normocephalic, atraumatic, no tenderness Eyes: Vision is grossly intact. EOMI ENT, no trauma, dry mucous membranes, no rhinorrhea Neck: Nontender, full range of motion, no spinal tenderness, deformities, step-off CVS: Regular rate and rhythm. S1-S2 present. No murmur, gallop or rub. Respiratory : clear to auscultation bilaterally, chest wall nontender, no wheezing Abdomen: Soft, nontender, nondistended, hyperactive bowel sounds, no masses : Deferred Back: Nontender, no CVA tenderness, no midline spinal tenderness, deformities, step-offs Extremities: Nontender full range of motion, no trauma Skin: Normal color, no trauma, abrasions Neuro: Alert, oriented, cranial nerves II through XII grossly intact. Psychiatry: Normal mood. Normal affect. Not depressed. Not anxious. Results Lab / Micro Data Result Diagrams: 02/03/22 19:50 02/03/22 19:50 Labs: Laboratory Results - last 24 hr 02/03/22 19:50: WBC 21.6 H, RBC 4.56, Hgb 13.0, Hct 39.8, MCV 87.3, MCH 28.5, MCHC 32.7, RDW Std Deviation 46.5 H, RDW Coeff of Rhonda 14.4, Plt Count 347, MPV 9.9, Immature Gran % (Auto) 0.800, Neut % (Auto) 81.3 H, Lymph % (Auto) 9.6 L, [place] % (Auto) 6.7, Eos % (Auto) 1.1, Baso % (Auto) 0.5, Absolute Neuts (auto) 17.6 H, Absolute Lymphs (auto) 2.07, Nucleated RBC % 0 02/03/22 19:50: Sodium 138, Potassium 3.5, Chloride 103, Carbon Dioxide 27.0, Anion Gap 8, BUN 8, Creatinine 0.74, Estim Creat Clear Calc 38.56, Est GFR (MDRD) Af Amer 97, Est GFR (MDRD) Non-Af 80, BUN/Creatinine Ratio 10.8, Glucose 101, Calcium 8.4 L 02/03/22 19:50: Lactic Acid 1.1 02/03/22 21:20: Urine Color Yellow, Urine Clarity Clear, Urine pH 6.5, Ur Specific [place] 1.010, Urine Protein 15 H, Urine Glucose (UA) Normal, Urine Ketones 50 H, Urine Occult Blood 150 H, Urine Nitrite Negative, Urine Bilirubin Negative, Urine Urobilinogen Normal, Ur Leukocyte Esterase 500 H, Urine RBC 0-5 SEEN, Urine WBC 0-5 SEEN, Ur Squamous Epith Cells 0 SEEN, Urine Bacteria 0 SEEN, Urine Mucus 0 SEEN Radiology Impression Abdomen/Pelvis CT 02/03/22 19:17 IMPRESSION: Findings consistent with diffuse colitis. Appearance is similar to the prior study. Electronically Signed: Enrique Faustin MD at 21:32 EDT , Chest X-Ray 02/03/22 19:32 IMPRESSION: No acute cardiopulmonary process. 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 At the time of evaluation heart rate was less than 90. Review of labs show the patient had leukocytosis with white count of 21.6 on presentation and 25.3 at [facility]Is office at the same day of presentation. Also patient with bandemia of 1.2% at [facility]Is office. Denies being on steroids at home. Has CRP on a similar presentation was 159. Review of record showed a CRP on 11/29/2021 was 7.01. Patient does not have 2 or more SIRS criteria. qSOFA is 0 Sepsis ruled out. Abdomen and pelvis CT was visualized and independently interpreted and I agree with radiologist impression/interpretation above. Discussed with ED doctor and patient will be started on metronidazole IV, ciprofloxacin IV and Solu-Medrol IV at the emergency department and continued inpatient. Will check fecal calprotectin; enteropathogenic panel and C. difficile. Gentle IV hydration and electrolyte replacement with sodium chloride and 20 mEq of potassium IV at a rate of 75 mL/h. Shared decision with patient to start on regular diet. IV Zofran as needed for nausea/vomiting. Trend CBC and CMP. GI consult. Abnormal urinalysis Patient with no urinary symptoms. Urinalysis positive for leukocyte Esterase; urine occult blood; urine ketones and mild urine protein. Urine WBC is normal. No urine bacteria. Patient on antibiotics for a flare of ulcerative colitis. Recommend longitudinal follow-up. DVT prophylaxis Subcutaneous Lovenox ordered. Charges/Coding Visit Charges Inpatient E&M: 22873 Init Hosp L3
[2022-02-03] MEDS: Ciprofloxacin 400 MG/200 ML BAG 200 MG IV (22:26)
[2022-02-03] MEDS: MethylPREDNISolone 125 MG/2 ML Vial IV (22:27)
[2022-02-03 23:19] VITALS: BMI 18.3
[2022-02-03 23:39] VITALS: BP 113/51; PULSE 77; RESP 18; TEMP 37.7; O2SAT 95
[2022-02-03] MEDS: KCL 20MEQ in 0.9% NS 20 MEQ/1,000 ML IV.SOLN. 75 MEQ IV (23:57)
[2022-02-03] MEDS: 0.9% Saline Lock 10 ML Syringe IV (23:58)
[2022-02-04] MEDS: metroNIDAZOLE 500 MG/100 ML BAG 100 MG IV ×4 (00:25→21:56)
[2022-02-04 05:58] VITALS: BP 87/47; PULSE 51; RESP 18; TEMP 36.3; O2SAT 99
[2022-02-04 06:11] LABS: Absolute Lymphocyte Count 1.11 X10^3/uL (0.83-4.51); Basophil# 0.06 X10^3/uL; Basophil% 0.3 % (0-1); Eosinophil# 0.01 X10^3/uL; Hematocrit 39.2 % (37-47); Hemoglobin 12.3 g/dL (12.0-15.0); Lymphocyte # 1.11 X10^3/ul (0.83-4.51); Lymphocyte % 5.4 % (19-41); Mean Corp Hgb Conc 31.4 g/dL (32-36); Mean Corpuscular Hgb 28.6 pg (27.0-32.0); Mean Corpuscular Volume 91.2 fL (81-99); Mean Platelet Vol. 10.3 fl (6.2-12.0); Monocyte# 0.17 X10^3/uL; Monocyte% 0.8 % (0-10); NRBC Flagged by Analyzer 0 % (0-5); Neutrophil # 18.96 X10^3/uL (2.7-7.7); Neutrophil % 92.5 % (47-70); Platelet Count 314 K/mm3 (150-450); RBC Distribution Width CV 14.5 % (11.6-14.6); RBC Distribution Width SD 48.7 fl (35.1-43.9); White Blood Count 20.5 K/mm3 (4.4-11.0)
[2022-02-04 06:53] LABS: ALB/GLOB Ratio 0.6 RATIO (0.9-2.4); AST(SGOT) 10 U/L (15-37); Alanine Aminotransfer ALT/SGPT 9 U/L (13-56); Albumin, Serum 2.3 g/dL (3.2-5.0); Alkaline Phosphatase 94 U/L (45-117); Anion Gap 4 (5-15); BUN 7 mg/dL (7-18); BUN/Creat Ratio 8.9 RATIO (10-20); Calcium,Total 7.9 mg/dL (8.5-10.1); Chloride 108 mmol/L (98-107); Creatinine, Serum 0.78 mg/dL (0.55-1.02); EST Glomerular Filtration Rate 75 mL/min (>60); Est Glom Filt Rate - Afr Amer 91 mL/min (>60); Estimated Creatinine Clearance 34.64 ml/min; Globulin 3.9 g/dL (2.2-4.2); Glucose 137 mg/dL (74-106); Protein, Total 6.2 g/dL (6.4-8.2); Sodium Level 138 mmol/L (136-145)
--- NOTE | 2022-02-04 07:02 | PN.HOSP_ITS ---
Subjective Subjective Feeling slightly better. Still having diarrhea. Similar but more severe in the past. Objective Data Objective Data Vital Signs: Vital Signs Temp Pulse Resp BP Pulse Ox 36.3 C L 51 L 18 87/47 L 99 02/04/22 05:58 02/04/22 05:58 02/04/22 05:58 02/04/22 05:58 02/04/22 05:58 Oxygen Delivery Method Room Air Weight: 48.9 kg Body Mass Index (BMI) 18.3 Intake & Output: Intake and Output for Last 24 Hours 02/02/22 02/03/22 02/04/22 23:59 23:59 23:59 Intake Total 1200 / 1200 200 / 200 Balance 1200 / 1200 200 / 200 Lab / Micro Data Result Diagrams: 02/04/22 05:30 02/04/22 05:30 Labs: Laboratory Results - last 24 hr 02/03/22 19:50: WBC 21.6 H, RBC 4.56, Hgb 13.0, Hct 39.8, MCV 87.3, MCH 28.5, MCHC 32.7, RDW Std Deviation 46.5 H, RDW Coeff of Rhonda 14.4, Plt Count 347, MPV 9.9, Immature Gran % (Auto) 0.800, Neut % (Auto) 81.3 H, Lymph % (Auto) 9.6 L, [place] % (Auto) 6.7, Eos % (Auto) 1.1, Baso % (Auto) 0.5, Absolute Neuts (auto) 17.6 H, Absolute Lymphs (auto) 2.07, Nucleated RBC % 0 02/03/22 19:50: Sodium 138, Potassium 3.5, Chloride 103, Carbon Dioxide 27.0, Anion Gap 8, BUN 8, Creatinine 0.74, Estim Creat Clear Calc 38.56, Est GFR (MDRD) Af Amer 97, Est GFR (MDRD) Non-Af 80, BUN/Creatinine Ratio 10.8, Glucose 101, Calcium 8.4 L 02/03/22 19:50: Lactic Acid 1.1 02/03/22 21:20: Urine Color Yellow, Urine Clarity Clear, Urine pH 6.5, Ur Specific [place] 1.010, Urine Protein 15 H, Urine Glucose (UA) Normal, Urine Ketones 50 H, Urine Occult Blood 150 H, Urine Nitrite Negative, Urine Bilirubin Negative, Urine Urobilinogen Normal, Ur Leukocyte Esterase 500 H, Urine RBC 0-5 SEEN, Urine WBC 0-5 SEEN, Ur Squamous Epith Cells 0 SEEN, Urine Bacteria 0 SEEN, Urine Mucus 0 SEEN 02/04/22 05:30: WBC 20.5 H, RBC 4.30, Hgb 12.3, Hct 39.2, MCV 91.2, MCH 28.6, MCHC 31.4 L, RDW Std Deviation 48.7 H, RDW Coeff of Rhonda 14.5, Plt Count 314, MPV 10.3, Immature Gran % (Auto) 1.000 H, Neut % (Auto) 92.5 H, Lymph % (Auto) 5.4 L , [place] % (Auto) 0.8, Eos % (Auto) 0.0, Baso % (Auto) 0.3, Absolute Neuts (auto) 19.0 H, Absolute Lymphs (auto) 1.11, Nucleated RBC % 0 02/04/22 05:30: Sodium 138, Potassium 4.0, Chloride 108 H, Carbon Dioxide 26.0, Anion Gap 4 L, BUN 7, Creatinine 0.78, Estim Creat Clear Calc 34.64, Est GFR (MDRD) Af Amer 91, Est GFR (MDRD) Non-Af 75, BUN/Creatinine Ratio 8.9 L, Glucose 137 H, Calcium 7.9 L, Total Bilirubin 0.40, AST 10 L, ALT 9 L, Alkaline Phosphatase 94, Total Protein 6.2 L, Albumin 2.3 L, Globulin 3.9, Albumin/Globulin Ratio 0.6 L Radiography Diagnostic Testing: Radiology Impression Abdomen/Pelvis CT 02/03/22 19:17 IMPRESSION: Findings consistent with diffuse colitis. Appearance is similar to the prior study. Electronically Signed: Enrique Faustin MD at 21:32 EDT , Chest X-Ray 02/03/22 19:32 IMPRESSION: No acute cardiopulmonary process. Electronically Signed: Ganesh Lockwood MD at 19:53 EDT , Physical Exam HEENT head/scalp atraumatic Head and Scalp: normocephalic Resp normal respiratory effort, no retractions, no use of accessory muscles and clear to auscultation bilaterally Cardio regular rate, regular rhythm, S1 normal heart sound and S2 normal heart sound GI non-distended GI Narrative: diffusely tender. Psych affect normal Assessment & Plan Assessment/Plan (1) Ulcerative colitis: QUALIFIERS: Digestive disease complication type: without complication Ulcerative colitis location: ulcerative pancolitis Qualified Code(s): K51.00 - Ulcerative (chronic) pancolitis without complications PLAN: 1. Acute colitis * ongoing, but subjectively slightly better * etiology UC flare v infectious v ischemic * started on cipro, metronidazole and IV methylprednisolone * GI on consult * infectious work up pending: C. diff, enteric pathogen * Consider GS consult depending on course 2. abnormal Urinalysis * 0-5 WBCs and no bacteria. * no evidence of UTI * no additional work up/treatment unless pt becomes symptomatic 3. VTE prophylaxis: LMWH 4. Malnutrition: * dietary consult Charges/Coding Visit Charges Inpatient E&M: 73542 Subs Hosp L2
[2022-02-04 08:00] VITALS: BP 104/45; PULSE 62; RESP 16; TEMP 36.3; O2SAT 98
[2022-02-04] MEDS: Ciprofloxacin 400 MG/200 ML BAG 200 MG IV ×2 (09:29→21:56)
[2022-02-04 09:43] VITALS: O2SAT 97
[2022-02-04] MEDS: Enoxaparin 40 MG/0.4 ML Syringe SC (09:52)
--- NOTE | 2022-02-04 10:19 | CASEMGMT ---
Social Work Note Per multiple spindle router operator questions, pt has completed HCPOA and LW and provided copies to [facility]. SW reviewed chart, no documents found. SW in to speak with pt. SW introduced self and role at [facility]. Pt confirms that she has completed HCPOA and LW and her granddaughter Ariana Jessica has all of the information. SW informed pt that documents are not on file at [facility], asked if she could ask her family to bring in copies. Pt states she will let her family know. Maryuri Robin GAME MODERATOR, CEMENT FINISHER
--- NOTE | 2022-02-04 10:35 | CASEMGMT ---
AMARJIT MEHTA Face to Face with patient for initial transition planning/care coordination assessment. RN CM introduced self and role at [facility]. Patient lying in bed, alert and oriented. Patient willing to participate in assessment and is able to answer all questions appropriately. Care providers, pharmacy, and demographics verified. Patient wishes to discharge home, denies need for home health at this time. Patient states she has no further needs or concerns at this time. CM to follow for discharge planning needs that may arise. PCP: Lizett CLASSIFICATION ANALYST Specialists: Friend, KEESHA Preferred Pharmacy: [facility] Insurance: [facility], [facility] Prescription Benefit: none Living Will/HPOA: yes, granddaughter Ariana Jessica HPOA LNOK: son, granddaughter Living Arrangements: Patient lives with son in a 2 story home with bed and bath on first floor. 3 steps to enter the home. Patient states she is independent at home. Transportation: son or granddaughter DME/HHC: Patient has shower chair, raised toilet, cane, rollator. Patient has been to the [facility] previously. No prior [facility] Disposition Plan: Patient to discharge home with family support and follow-up plans in place. Maryuri DUONG, RN, CM
[2022-02-04 11:05] VITALS: BP 100/53; PULSE 62; TEMP 36.8
[2022-02-04] MEDS: Ondansetron 4 MG/2 ML Vial IV (11:14)
[2022-02-04] MEDS: 0.9% Saline Lock 10 ML Syringe IV ×2 (11:14→15:37)
--- NOTE | 2022-02-04 11:20 | NURSING ---
Met with pt and introduced myself. This nurse has reviewed all of [facility] Ham's charting thus far on this pt.
--- NOTE | 2022-02-04 14:59 | CHAPLAIN ---
Type of Pastoral Visit _x__ Initial Visit ___ Follow-up Visit ___ On-call Visit ___ General Patient Visit ___ Spiritual Assessment ___ Family Conference ___ Bereavement ___ Rapid Response ___ Code Blue ___ Other (describe below) Pastoral Care Referral From _x__ Patient ___ Family ___ Nurse ___ Physician ___ General Office Assistant ___ Automobile Sales Consultant ___ Other (describe below) Sacrament/Intervention _x__ Active listening ___ Anointing ___ Hindu ___ Bereavement ___ Communion _x__ Berna exploration ___ _x__ Life review _x__ Prayer ___ Reconciliation ___ Sacrament of Sick _x__ Supportive presence ___ Wedding ___ Other (describe below) Pastoral Comments have met and talked with this patient in several previous admissions; pt presents with low affect and words filled with sadness; pt speaks of not being able to do for myself anymore and whatever is going to happen will be fine with me and it's in the man upstairs hands and can't be changed so I just have a let it happen and like they always say, 'He will never give you more than you can handle, but sometimes I wonder; these things heard and responded to with further questions, acknowledgement of feelings, ways to find some meaning and hope through the situation; pt also brings up some past emotional issues that affect her thinking and outlook on life; offer of support and spiritual meaning given; prayer is welcomed
[2022-02-04] MEDS: Ensure Clear 120 ML Liquid PO ×3 (15:36→21:57)
[2022-02-04] MEDS: KCL 20MEQ in 0.9% NS 20 MEQ/1,000 ML IV.SOLN. 75 MEQ IV (17:51)
[2022-02-04 18:23] VITALS: BP 113/54; PULSE 72; RESP 16; TEMP 36.8; O2SAT 97
--- NOTE | 2022-02-04 19:29 | CON.PCM_ITS ---
Assessment & Plan Assessment/Plan (1) Ulcerative colitis: QUALIFIERS: Ulcerative colitis location: ulcerative pancolitis Digestive disease complication type: without complication Qualified Code(s): K51.00 - Ulcerative (chronic) pancolitis without complications PLAN: She is okay to stay on the Imuran and IV steroids. She can have the antibiotics stopped at this time. You do get microperforations with inflammation of the bowels with inflammatory bowel disease. However you should not get this with ulcerative colitis. Recommend recheck ESR, CRP. I will start her on Lomotil 2 tabs p.o. twice daily. Her blood cultures pending. She should also have stool testing for C. difficile and enteric pathogens. HPI Consult Data Date of Consult: 02/04/22 HPI Narrative HPI Narrative: JOANN MERRITT, is a 81 F who presents to the ED after being seen in office yesterday with worsening diarrhea and abdominal pain. She had outpatient labs that had shown increased white blood cell count and severely elevated CRP. She has a history of ulcerative colitis. She is on Imuran as an outpatient but is not take anything else. We had difficulty getting her an anti-TNF medication due to the fact that she did not have any health insurance. We are in the process of possibly getting Stelara for her but she developed worsening diarrhea, cramping, abdominal pain and fatigue. She was admitted to the hospital for ulcerative colitis flare along with severe dehydration, leukocytosis and abdominal pain. She still continues to have a lot of diarrhea. She has had about 6 episodes today. [facility] Medical History Arthritis Cataract Chronic gastrointestinal bleeding Diarrhea Frequent headaches History of colon cancer IBS (irritable bowel syndrome) Non-smoker Seasonal allergies Syncope Syncope Syncope and collapse Home Medications azathioprine 100 mg PO DAILY 02/03/22 [History Last Taken Unknown] colestipol 1 g PO BID 02/03/22 [History Last Taken Unknown] colestipol [Colestid] 2 g PO DAILY 02/03/22 [History Last Taken Unknown] dicyclomine 20 mg tablet 20 mg PO TID PRN #30 tab 02/03/22 [Rx Last Taken Unknown] Allergy/AdvReac Type Severity Reaction Status Date / Time Sulfa (Sulfonamide Allergy Rash Verified 02/03/22 18:35 Antibiotics) amoxicillin [From Augmentin] AdvReac Vomiting Verified 02/03/22 18:35 clavulanic acid AdvReac Vomiting Verified 02/03/22 18:35 [From Augmentin] fexofenadine [From Rose] AdvReac Other Verified 02/03/22 18:35 hydrocodone AdvReac out of it Verified 02/03/22 18:35 Family History Mother No problems noted. Grandmother Arthritis Grandfather Arthritis Other Heart disease Surgical History (Updated 02/03/22 @ 23:37 by Neela Washington) H/O breast biopsy History of appendectomy History of cholecystectomy S/P cholecystectomy S/P partial colectomy Surgical history of tubal ligation Social History household members: family housing: house Smoking Status: Never smoker alcohol intake: never substance use type: does not use what type of physical activity do you participate in: walking frequency: daily Physical Exam Const alert General Appearance: cooperative Orientation / Consciousness: oriented to person HEENT hearing grossly normal bilaterally Head and Scalp: normal to inspection Face and Sinus: face symmetric Nose: external nose normal Mouth: oral and palatal mucosa normal Eyes conjunctivae normal General Eye: normal appearance of both eyes Neck full ROM General: normal visual inspection Lymph Lymphatic: no lymphadenopathy noted Chest inspection of chest normal and palpation of chest normal Chest: symmetrical chest wall rise Resp normal respiratory effort Effort and Inspection: able to speak in complete sentences Cardio regular rate GI non-distended Percussion: normal to percussion Rectal Exam: deferred Neuro Speech: speech normal Gait (Neuro): normal gait Medical Records Data Medical Nutrition Assessment Dietitian: Malnutrition Criteria Met Start: 02/04/22 12:10 Freq: Status: Active Protocol: Document 02/04/22 12:10 AG (Rec: 02/04/22 12:10 [id number]) Nutrition Malnutrition Evidence of Malnutrition Exists Yes Malnutrition (moderate): Acute Illness/Injury Evidenced By Suboptimal Energy Intake ( Moderate),Weight Loss (Severe) ,Physical Changes (Mild) Clinical Problem Acute Disease or Injury Related Malnutrition Etiology moderate, acute malnutrition related to inadequate energy intake with GI dysfunction Signs/Symptoms as evidenced by estimated PO intake meeting <50% of estimated energy needs >5 days ; mild muscle wasting and fat loss in orbital, temporal area ; visible clavicles, acromion process, scapula per physical exam; unintentional wt loss of ~17#/13.6% x 2 months; BMI 18 .4 Status Active Problem Recommendation Dietitian Recommendations/Changes Continue regular diet- will add fiber restriction given GI symptoms. Will offer 120mL ensure clear 4x/day w/ medpass for additional calories/ protein if consumed. Lab / Micro Data Result Diagrams: 02/04/22 05:30 02/04/22 05:30 Labs: Laboratory Results - last 24 hr 02/03/22 19:50: WBC 21.6 H, RBC 4.56, Hgb 13.0, Hct 39.8, MCV 87.3, MCH 28.5, MCHC 32.7, RDW Std Deviation 46.5 H, RDW Coeff of Rhonda 14.4, Plt Count 347, MPV 9.9, Immature Gran % (Auto) 0.800, Neut % (Auto) 81.3 H, Lymph % (Auto) 9.6 L, [place] % (Auto) 6.7, Eos % (Auto) 1.1, Baso % (Auto) 0.5, Absolute Neuts (auto) 17.6 H, Absolute Lymphs (auto) 2.07, Nucleated RBC % 0 02/03/22 19:50: Sodium 138, Potassium 3.5, Chloride 103, Carbon Dioxide 27.0, Anion Gap 8, BUN 8, Creatinine 0.74, Estim Creat Clear Calc 38.56, Est GFR (MDRD) Af Amer 97, Est GFR (MDRD) Non-Af 80, BUN/Creatinine Ratio 10.8, Glucose 101, Calcium 8.4 L 02/03/22 19:50: Lactic Acid 1.1 02/03/22 21:20: Urine Color Yellow, Urine Clarity Clear, Urine pH 6.5, Ur Spec ific [place] 1.010, Urine Protein 15 H, Urine Glucose (UA) Normal, Urine Ketones 50 H, Urine Occult Blood 150 H, Urine Nitrite Negative, Urine Bilirubin Negative, Urine Urobilinogen Normal, Ur Leukocyte Esterase 500 H, Urine RBC 0-5 SEEN, Urine WBC 0-5 SEEN, Ur Squamous Epith Cells 0 SEEN, Urine Bacteria 0 SEEN, Urine Mucus 0 SEEN 02/04/22 05:30: WBC 20.5 H, RBC 4.30, Hgb 12.3, Hct 39.2, MCV 91.2, MCH 28.6, MCHC 31.4 L, RDW Std Deviation 48.7 H, RDW Coeff of Rhonda 14.5, Plt Count 314, MPV 10.3, Immature Gran % (Auto) 1.000 H, Neut % (Auto) 92.5 H, Lymph % (Auto) 5.4 L , [place] % (Auto) 0.8, Eos % (Auto) 0.0, Baso % (Auto) 0.3, Absolute Neuts (auto) 19.0 H, Absolute Lymphs (auto) 1.11, Nucleated RBC % 0 02/04/22 05:30: Sodium 138, Potassium 4.0, Chloride 108 H, Carbon Dioxide 26.0, Anion Gap 4 L, BUN 7, Creatinine 0.78, Estim Creat Clear Calc 34.64, Est GFR (MDRD) Af Amer 91, Est GFR (MDRD) Non-Af 75, BUN/Creatinine Ratio 8.9 L, Glucose 137 H, Calcium 7.9 L, Total Bilirubin 0.40, AST 10 L, ALT 9 L, Alkaline Phosphatase 94, Total Protein 6.2 L, Albumin 2.3 L, Globulin 3.9, Albumin/Globulin Ratio 0.6 L Radiology Impression Abdomen/Pelvis CT 02/03/22 19:17 IMPRESSION: Findings consistent with diffuse colitis. Appearance is similar to the prior study. Electronically Signed: Enrique Faustin MD at 21:32 EDT , Chest X-Ray 02/03/22 19:32 IMPRESSION: No acute cardiopulmonary process. Electronically Signed: Ganesh Lockwood MD at 19:53 EDT , Charges/Coding Visit Charges Inpatient E&M: 39224 Init Hosp L2
[2022-02-04 20:26] VITALS: BP 106/65; PULSE 70; RESP 16; TEMP 36.6; O2SAT 97
[2022-02-05 02:26] VITALS: BP 108/51; PULSE 58; RESP 16; TEMP 36.6; O2SAT 97
[2022-02-05] MEDS: Ondansetron 4 MG/2 ML Vial IV (05:58)
[2022-02-05] MEDS: KCL 20MEQ in 0.9% NS 20 MEQ/1,000 ML IV.SOLN. 75 MEQ IV ×2 (05:58→20:51)
[2022-02-05] MEDS: metroNIDAZOLE 500 MG/100 ML BAG 100 MG IV ×3 (05:59→20:57)
[2022-02-05 06:16] LABS: Absolute Lymphocyte Count 1.34 X10^3/uL (0.83-4.51); Absolute Neutrophil Count 24.4 X10^3/uL (2.0-7.7); Basophil# 0.06 X10^3/uL; Basophil% 0.2 % (0-1); Hematocrit 33.6 % (37-47); Hemoglobin 10.7 g/dL (12.0-15.0); Lymphocyte # 1.34 X10^3/ul (0.83-4.51); Mean Corp Hgb Conc 31.8 g/dL (32-36); Mean Corpuscular Hgb 28.4 pg (27.0-32.0); Mean Corpuscular Volume 89.1 fL (81-99); Mean Platelet Vol. 10.9 fl (6.2-12.0); Monocyte# 0.64 X10^3/uL; Monocyte% 2.4 % (0-10); NRBC Flagged by Analyzer 0 % (0-5); Neutrophil # 24.35 X10^3/uL (2.7-7.7); Neutrophil % 91.2 % (47-70); POSITIVE DIFFERENTIAL YES; Platelet Count 290 K/mm3 (150-450); RBC Distribution Width CV 14.6 % (11.6-14.6); RBC Distribution Width SD 47.1 fl (35.1-43.9); Red Blood Count 3.77 M/mm3 (4.2-5.4); White Blood Count 26.7 K/mm3 (4.4-11.0)
[2022-02-05 06:18] LABS: Differential Indicated SCAN CRITERIA MET
[2022-02-05 06:38] LABS: Differential Comment SCANNED
[2022-02-05 06:56] LABS: Anion Gap 5 (5-15); BUN 7 mg/dL (7-18); BUN/Creat Ratio 10.6 RATIO (10-20); Calcium,Total 8.4 mg/dL (8.5-10.1); Chloride 115 mmol/L (98-107); Creatinine, Serum 0.66 mg/dL (0.55-1.02); EST Glomerular Filtration Rate 91 mL/min (>60); Est Glom Filt Rate - Afr Amer 110 mL/min (>60); Estimated Creatinine Clearance 34.64 ml/min; Glucose 144 mg/dL (74-106); Potassium 4.4 mmol/L (3.5-5.1); Sodium Level 142 mmol/L (136-145)
--- NOTE | 2022-02-05 06:58 | PN.HOSP_ITS ---
Subjective Subjective Not feeling much better. Still with abdominal cramping. Objective Data Objective Data Vital Signs: Vital Signs Temp Pulse Resp BP Pulse Ox 36.6 C 58 L 16 108/51 L 97 02/05/22 02:26 02/05/22 02:26 02/05/22 02:26 02/05/22 02:26 02/05/22 02:26 Oxygen Delivery Method Room Air Weight: 48.9 kg Body Mass Index (BMI) 18.3 Intake & Output: Intake and Output for Last 24 Hours 02/03/22 02/04/22 02/05/22 23:59 23:59 23:59 Intake Total 1200 / 1200 2400 / 2400 1658.75 / 1658.75 Output Total 100 / 100 Balance 1200 / 1200 2300 / 2300 1658.75 / 1658.75 Medical Nutrition Assessment Dietitian: Malnutrition Criteria Met Start: 02/04/22 12:10 Freq: Status: Active Protocol: Document 02/04/22 12:10 AG (Rec: 02/04/22 12:10 [id number]) Nutrition Malnutrition Evidence of Malnutrition Exists Yes Malnutrition (moderate): Acute Illness/Injury Evidenced By Suboptimal Energy Intake ( Moderate),Weight Loss (Severe) ,Physical Changes (Mild) Clinical Problem Acute Disease or Injury Related Malnutrition Etiology moderate, acute malnutrition related to inadequate energy intake with GI dysfunction Signs/Symptoms as evidenced by estimated PO intake meeting <50% of estimated energy needs >5 days ; mild muscle wasting and fat loss in orbital, temporal area ; visible clavicles, acromion process, scapula per physical exam; unintentional wt loss of ~17#/13.6% x 2 months; BMI 18 .4 Status Active Problem Recommendation Dietitian Recommendations/Changes Continue regular diet- will add fiber restriction given GI symptoms. Will offer 120mL ensure clear 4x/day w/ medpass for additional calories/ protein if consumed. Lab / Micro Data Result Diagrams: 02/05/22 05:30 02/05/22 05:30 Labs: Laboratory Results - last 24 hr 02/05/22 05:30: WBC 26.7 H, RBC 3.77 L, Hgb 10.7 L, Hct 33.6 L, MCV 89.1, MCH 28.4, MCHC 31.8 L, RDW Std Deviation 47.1 H, RDW Coeff of Rhonda 14.6, Plt Count 290, MPV 10.9, Immature Gran % (Auto) 1.200 H, Neut % (Auto) 91.2 H, Lymph % (Auto) 5.0 L, [place] % (Auto) 2.4, Eos % (Auto) 0.0, Baso % (Auto) 0.2, Absolute Neuts (auto) 24.4 H, Absolute Lymphs (auto) 1.34, Nucleated RBC % 0, Differential Comment SCANNED 02/05/22 05:30: Sodium 142, Potassium 4.4, Chloride 115 H, Carbon Dioxide 22.0, Anion Gap 5, BUN 7, Creatinine 0.66, Estim Creat Clear Calc 34.64, Est GFR (MDRD) Af Amer 110, Est GFR (MDRD) Non-Af 91, BUN/Creatinine Ratio 10.6, Glucose 144 H, Calcium 8.4 L Physical Exam Narrative Physical exam: General: Well-nourished, well-developed. Head: Normocephalic, atraumatic, no tenderness Eyes: Vision is grossly intact. EOMI ENT, no trauma, dry mucous membranes, no rhinorrhea Neck: Nontender, full range of motion, no spinal tenderness, deformities, step- off CVS: Regular rate and rhythm. S1-S2 present. No murmur, gallop or rub. Respiratory : clear to auscultation bilaterally, chest wall nontender, no wheezing Abdomen: Soft, nontender, nondistended, hyperactive bowel sounds, no masses : Deferred Back: Nontender, no CVA tenderness, no midline spinal tenderness, deformities, step-offs Extremities: Nontender full range of motion, no trauma Skin: Normal color, no trauma, abrasions Neuro: Alert, oriented, cranial nerves II through XII grossly intact. Psychiatry: Normal mood. Normal affect. Not depressed. Not anxious. HEENT head/scalp atraumatic Resp normal respiratory effort, no retractions, no use of accessory muscles and clear to auscultation bilaterally Cardio regular rate, regular rhythm, S1 normal heart sound and S2 normal heart sound GI non-distended GI Narrative: diffusely tender. 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 difficile colitis: PLAN: 1. Acute C. difficile colitis * Started on vancomycin by Dr. Draper. Continue with IV metronidazole for now. * Dr. Draper is going to order a KUB to rule out any toxic megacolon * This likely explains patient's pronounced leukocytosis 2. acute ulcerative colitis flare * ruled out * Given that patient has positive C. difficile PCR Dr. Draper has discontinued the methylprednisolone. He is okay with continuing the 3. +Blood culture * unclear if true infection. Unfortunately, only 1 BCx was performed * Repeat BCx and start IV vancomycin 4. abnormal Urinalysis * 0-5 WBCs and no bacteria. * no evidence of UTI * no additional work up/treatment unless pt becomes symptomatic 5. VTE prophylaxis: LMWH 6. Malnutrition: * dietary consult Charges/Coding Visit Charges Inpatient E&M: 62406 Subs Hosp L2
[2022-02-05 07:00] VITALS: O2SAT 96
[2022-02-05 07:53] VITALS: BP 102/59; PULSE 61; RESP 16; TEMP 36.8; O2SAT 95
[2022-02-05] MEDS: Enoxaparin 40 MG/0.4 ML Syringe SC (09:53)
[2022-02-05] MEDS: Ensure Clear 120 ML Liquid PO ×4 (09:53→20:51)
[2022-02-05] MEDS: azaTHIOprine 50 MG Tablet 100 MG PO (09:53)
--- NOTE | 2022-02-05 12:46 | RAD_ITS ---
STUDY: X-RAY - ABDOMEN/PELVIS REASON FOR EXAM: Female, 81 years old. cdiff TECHNIQUE: Single AP view of the abdomen / pelvis. COMPARISON: None. FINDINGS: Mild increased markings at the left lung base. Mildly distended colon. Small bowel pattern is unremarkable. The visualized liver, spleen and kidneys are grossly normal in size and morphology. Normal soft tissue structures. There are diffuse degenerative changes of the visualized lumbar spine. RAD/Abdomen Single View (Portable) IMPRESSION: Mildly distended colon. Electronically Signed: Ja Bailey MD at 14:11 EDT ,
[2022-02-05 14:00] VITALS: BP 119/61; PULSE 70; RESP 18; TEMP 36.4; O2SAT 99
--- NOTE | 2022-02-05 14:46 | PCM.RX.CS ---
Consult Pharmacy has been consulted to manage selected antiobiotic: Vancomycin Type of Consult: New start Labs: Sodium 142 mmol/L (136-145) 02/05/22 05:30 Potassium 4.4 mmol/L (3.5-5.1) 02/05/22 05:30 Chloride 115 mmol/L (98-107) H 02/05/22 05:30 Carbon Dioxide 22.0 mmol/L (21.0-32.0) 02/05/22 05:30 Anion Gap 5 (5-15) 02/05/22 05:30 BUN 7 mg/dL (7-18) 02/05/22 05:30 Creatinine 0.66 mg/dL (0.55-1.02) 02/05/22 05:30 Est GFR (MDRD) Af Amer 110 mL/min (>60) 02/05/22 05:30 Est GFR (MDRD) Non-Af 91 mL/min (>60) 02/05/22 05:30 BUN/Creatinine Ratio 10.6 RATIO (10-20) 02/05/22 05:30 Glucose 144 mg/dL (74-106) H 02/05/22 05:30 Microbiology: Microbiology 02/03/22 19:50 Blood Culture (Wb) - No Site/Description Given Bacteria Detection (PCR) - Final 02/03/22 19:50 Blood Culture (Wb) - No Site/Description Given Blood Culture - Preliminary 02/04/22 20:26 Stool C. difficile GDH Antigen & Toxins - Final 02/04/22 20:26 Stool C. difficile DNA Amplification - Final 02/04/22 20:26 Stool Enteric Bacteriology - Final Weight used for dosin.9 kg Estimated Creatinine Clearance: 43ML/MIN Goal Trough: 15-20 mcg/mL Pharmacy Plan for Drug Dosing: Give initial loading dose of 1250mg IV x1, then continue with 1000mg IV q24h per [facility] dosing protocol. Will check a vanc trough level before the 3rd dose. Pharmacy Service will continue to monitor and adjust dosing as required. Follow-Up Labs: Trough Vancomycin Labs to be done on [date and time ordered]: 02/07/22 13:30
[2022-02-05 17:02] LABS: Absolute Neutrophil Count 24.8 X10^3/uL (2.0-7.7); Basophil# 0.08 X10^3/uL; Basophil% 0.3 % (0-1); Hemoglobin 11.4 g/dL (12.0-15.0); Mean Corp Hgb Conc 30.8 g/dL (32-36); Mean Corpuscular Hgb 28.6 pg (27.0-32.0); Mean Platelet Vol. 10.6 fl (6.2-12.0); Monocyte# 1.41 X10^3/uL; NRBC Flagged by Analyzer 0 % (0-5); Neutrophil # 24.79 X10^3/uL (2.7-7.7); Neutrophil % 87.8 % (47-70); POSITIVE DIFFERENTIAL YES; Platelet Count 343 K/mm3 (150-450); RBC Distribution Width CV 14.6 % (11.6-14.6); RBC Distribution Width SD 50.5 fl (35.1-43.9); Red Blood Count 3.98 M/mm3 (4.2-5.4); White Blood Count 28.2 K/mm3 (4.4-11.0)
[2022-02-05 17:04] LABS: AST(SGOT) 6 U/L (15-37); Alanine Aminotransfer ALT/SGPT < 6 U/L (13-56); Albumin, Serum 2.2 g/dL (3.2-5.0); Alkaline Phosphatase 89 U/L (45-117); Bilirubin, Direct 0.08 mg/dL (0.00-0.30); Globulin 3.6 g/dL (2.2-4.2); LDH 183 U/L (84-246); Protein, Total 5.8 g/dL (6.4-8.2)
[2022-02-05] MEDS: Vancomycin HCl 250 MG Capsule 500 MG PO (17:20)
[2022-02-05 17:29] LABS: Lactic Acid 1.8 mmol/L (0.4-1.9)
--- NOTE | 2022-02-05 18:24 | PCM.PROGNOTE ---
Subjective Subjective Severe C. difficile colitis. Her blood cultures are positive for gram-positive cocci. She is still in a lot of pain and still having a lot of diarrhea. She is tolerating liquid diet Objective Data Objective Data Vital Signs: Vital Signs Temp Pulse Resp BP Pulse Ox 97.6 F L 70 18 119/61 99 02/05/22 14:00 02/05/22 14:00 02/05/22 14:00 02/05/22 14:00 02/05/22 14:00 Oxygen Delivery Method Room Air Weight: 107 lb 12.897 oz Body Mass Index (BMI) 18.3 Intake & Output: Intake and Output for Last 24 Hours 02/03/22 02/04/22 02/05/22 23:59 23:59 23:59 Intake Total 1200 / 1200 2400 / 2400 2133.75 / 2133.75 Output Total 100 / 100 Balance 1200 / 1200 2300 / 2300 2133.75 / 2133.75 Medical Nutrition Assessment Dietitian: Malnutrition Criteria Met Start: 02/04/22 12:10 Freq: Status: Active Protocol: Document 02/04/22 12:10 AG (Rec: 02/04/22 12:10 [id number]) Nutrition Malnutrition Evidence of Malnutrition Exists Yes Malnutrition (moderate): Acute Illness/Injury Evidenced By Suboptimal Energy Intake ( Moderate),Weight Loss (Severe) ,Physical Changes (Mild) Clinical Problem Acute Disease or Injury Related Malnutrition Etiology moderate, acute malnutrition related to inadequate energy intake with GI dysfunction Signs/Symptoms as evidenced by estimated PO intake meeting <50% of estimated energy needs >5 days ; mild muscle wasting and fat loss in orbital, temporal area ; visible clavicles, acromion process, scapula per physical exam; unintentional wt loss of ~17#/13.6% x 2 months; BMI 18 .4 Status Active Problem Recommendation Dietitian Recommendations/Changes Continue regular diet- will add fiber restriction given GI symptoms. Will offer 120mL ensure clear 4x/day w/ medpass for additional calories/ protein if consumed. Lab / Micro Data Result Diagrams: 02/05/22 05:30 02/05/22 05:30 Labs: Laboratory Results - last 24 hr 02/05/22 05:30: WBC 26.7 H, RBC 3.77 L, Hgb 10.7 L, Hct 33.6 L, MCV 89.1, MCH 28.4, MCHC 31.8 L, RDW Std Deviation 47.1 H, RDW Coeff of Rhonda 14.6, Plt Count 290, MPV 10.9, Immature Gran % (Auto) 1.200 H, Neut % (Auto) 91.2 H, Lymph % (Auto) 5.0 L, [place] % (Auto) 2.4, Eos % (Auto) 0.0, Baso % (Auto) 0.2, Absolute Neuts (auto) 24.4 H, Absolute Lymphs (auto) 1.34, Nucleated RBC % 0, Differential Comment SCANNED 02/05/22 05:30: Sodium 142, Potassium 4.4, Chloride 115 H, Carbon Dioxide 22.0, Anion Gap 5, BUN 7, Creatinine 0.66, Estim Creat Clear Calc 34.64, Est GFR (MDRD) Af Amer 110, Est GFR (MDRD) Non-Af 91, BUN/Creatinine Ratio 10.6, Glucose 144 H, Calcium 8.4 L 02/05/22 05:30: Total Bilirubin 0.20, Direct Bilirubin 0.08, AST 6 L, ALT < 6 L, Alkaline Phosphatase 89, Lactate Dehydrogenase 183, C-React Prot Ext Range 102.00 H, Total Protein 5.8 L, Albumin 2.2 L, Globulin 3.6 02/05/22 16:43: Lactic Acid 1.8 Micro: Microbiology 02/03/22 19:50 Blood Culture (Wb) - No Site/Description Given Bacteria Detection (PCR) - Final 02/03/22 19:50 Blood Culture (Wb) - No Site/Description Given Blood Culture - Preliminary 02/04/22 20:26 Stool C. difficile GDH Antigen & Toxins - Final 02/04/22 20:26 Stool C. difficile DNA Amplification - Final 02/04/22 20:26 Stool Enteric Bacteriology - Final Radiography Diagnostic Testing: Radiology Impression KUB X-Ray 02/05/22 12:46 IMPRESSION: Mildly distended colon. Electronically Signed: Ja Bailey MD at 14:11 EDT , Physical Exam Const alert General Appearance: cooperative Orientation / Consciousness: oriented to person HEENT hearing grossly normal bilaterally Head and Scalp: normal to inspection Face and Sinus: face symmetric Nose: external nose normal Mouth: oral and palatal mucosa normal Eyes conjunctivae normal General Eye: normal appearance of both eyes Neck full ROM General: normal visual inspection Lymph Lymphatic: no lymphadenopathy noted Chest inspection of chest normal and palpation of chest normal Chest: symmetrical chest wall rise Resp normal respiratory effort Effort and Inspection: able to speak in complete sentences Cardio regular rate GI non-distended Percussion: normal to percussion Rectal Exam: deferred Neuro Speech: speech normal Gait (Neuro): normal gait Assessment & Plan Assessment/Plan (1) C. difficile colitis: PLAN: Severe pancolitis secondary to C. difficile colitis in the setting of immunosuppression with Imuran and severe ulcerative colitis. She is having increasing white blood cell count what I suspect is from C. difficile. She is antigen positive but not toxin positive for C. difficile. Due to the fact that she has severe pancolitis I will start her on vancomycin 500 mg p.o. 4 times daily and continue Flagyl 500 mg IV every 8 hours. I had a long talk with her granddaughter explaining how sick she is due to her age underlying disease and current infection. Her KUB did show some mild colonic dilatation. If it continues to dilate then she will need a NG tube. 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 I am not sure that this is working very well since her CT scan looks the same as it did 2 months ago when she was initially started on Imuran. Charges/Coding Visit Charges Inpatient E&M: 65690 Subs Hosp L2
[2022-02-05 19:07] LABS: Differential Indicated SCAN CRITERIA MET
[2022-02-05 19:17] LABS: Differential Comment SCANNED
[2022-02-05 20:54] VITALS: BP 113/56; PULSE 55; RESP 16; TEMP 36.6; O2SAT 97
[2022-02-05 21:20] VITALS: PULSE 55
[2022-02-06] MEDS: Vancomycin HCl 250 MG Capsule 500 MG PO ×4 (00:24→17:53)
[2022-02-06 02:54] VITALS: BP 110/54; PULSE 51; RESP 16; TEMP 36.6; O2SAT 99
[2022-02-06 03:00] VITALS: PULSE 54
[2022-02-06] MEDS: metroNIDAZOLE 500 MG/100 ML BAG 100 MG IV ×3 (05:26→22:14)
[2022-02-06 06:11] LABS: Absolute Lymphocyte Count 2.29 X10^3/uL (0.83-4.51); Absolute Neutrophil Count 15.7 X10^3/uL (2.0-7.7); Basophil# 0.04 X10^3/uL; Basophil% 0.2 % (0-1); Eosinophil# 0.01 X10^3/uL; Eosinophils% 0.1 % (0-5); Hematocrit 35.1 % (37-47); Hemoglobin 10.8 g/dL (12.0-15.0); Lymphocyte # 2.29 X10^3/ul (0.83-4.51); Lymphocyte % 11.7 % (19-41); Mean Corp Hgb Conc 30.8 g/dL (32-36); Mean Corpuscular Hgb 28.3 pg (27.0-32.0); Mean Corpuscular Volume 92.1 fL (81-99); Mean Platelet Vol. 10.5 fl (6.2-12.0); Monocyte# 1.29 X10^3/uL; Monocyte% 6.6 % (0-10); NRBC Flagged by Analyzer 0 % (0-5); Neutrophil # 15.69 X10^3/uL (2.7-7.7); Neutrophil % 79.7 % (47-70); Platelet Count 311 K/mm3 (150-450); RBC Distribution Width CV 14.8 % (11.6-14.6); RBC Distribution Width SD 50.3 fl (35.1-43.9); Red Blood Count 3.81 M/mm3 (4.2-5.4); White Blood Count 19.7 K/mm3 (4.4-11.0)
[2022-02-06 06:49] LABS: Anion Gap 5 (5-15); BUN 11 mg/dL (7-18); BUN/Creat Ratio 13.6 RATIO (10-20); Calcium,Total 8.2 mg/dL (8.5-10.1); Chloride 116 mmol/L (98-107); Creatinine, Serum 0.81 mg/dL (0.55-1.02); EST Glomerular Filtration Rate 73 mL/min (>60); Est Glom Filt Rate - Afr Amer 88 mL/min (>60); Estimated Creatinine Clearance 42.76 ml/min; Glucose 90 mg/dL (74-106); Potassium 4.4 mmol/L (3.5-5.1); Sodium Level 144 mmol/L (136-145)
--- NOTE | 2022-02-06 07:32 | PN.HOSP_ITS ---
Subjective Subjective Still weak, but slightly better. Still with loose stools and frequency. Objective Data Objective Data Vital Signs: Vital Signs Temp Pulse Resp BP Pulse Ox 36.6 C 54 L 16 110/54 L 99 02/06/22 02:54 02/06/22 03:00 02/06/22 02:54 02/06/22 02:54 02/06/22 02:54 Oxygen Delivery Method Room Air Weight: 48.9 kg Body Mass Index (BMI) 18.3 Intake & Output: Intake and Output for Last 24 Hours 02/04/22 02/05/22 02/06/22 23:59 23:59 23:59 Intake Total 2400 / 2400 3433.75 / 3433.75 500 / 500 Output Total 100 / 100 Balance 2300 / 2300 3433.75 / 3433.75 500 / 500 Medical Nutrition Assessment Dietitian: Malnutrition Criteria Met Start: 02/04/22 12:10 Freq: Status: Active Protocol: Document 02/04/22 12:10 AG (Rec: 02/04/22 12:10 [id number]) Nutrition Malnutrition Evidence of Malnutrition Exists Yes Malnutrition (moderate): Acute Illness/Injury Evidenced By Suboptimal Energy Intake ( Moderate),Weight Loss (Severe) ,Physical Changes (Mild) Clinical Problem Acute Disease or Injury Related Malnutrition Etiology moderate, acute malnutrition related to inadequate energy intake with GI dysfunction Signs/Symptoms as evidenced by estimated PO intake meeting <50% of estimated energy needs >5 days ; mild muscle wasting and fat loss in orbital, temporal area ; visible clavicles, acromion process, scapula per physical exam; unintentional wt loss of ~17#/13.6% x 2 months; BMI 18 .4 Status Active Problem Recommendation Dietitian Recommendations/Changes Continue regular diet- will add fiber restriction given GI symptoms. Will offer 120mL ensure clear 4x/day w/ medpass for additional calories/ protein if consumed. Lab / Micro Data Result Diagrams: 02/06/22 05:40 02/06/22 05:40 Labs: Laboratory Results - last 24 hr 02/05/22 05:30: Total Bilirubin 0.20, Direct Bilirubin 0.08, AST 6 L, ALT < 6 L, Alkaline Phosphatase 89, Lactate Dehydrogenase 183, C-React Prot Ext Range 102.00 H, Total Protein 5.8 L, Albumin 2.2 L, Globulin 3.6 02/05/22 16:43: WBC 28.2 H, RBC 3.98 L, Hgb 11.4 L, Hct 37.0, MCV 93.0, MCH 28.6, MCHC 30.8 L, RDW Std Deviation 50.5 H, RDW Coeff of Rhonda 14.6, Plt Count 343, MPV 10.6, Immature Gran % (Auto) 1.900 H, Neut % (Auto) 87.8 H, Lymph % (Auto) 5.0 L, [place] % (Auto) 5.0, Eos % (Auto) 0.0, Baso % (Auto) 0.3, Absolute Neuts (auto) 24.8 H, Absolute Lymphs (auto) 1.40, Nucleated RBC % 0, Differential Comment SCANNED 02/05/22 16:43: Lactic Acid 1.8 02/06/22 05:40: WBC 19.7 H, RBC 3.81 L, Hgb 10.8 L, Hct 35.1 L, MCV 92.1, MCH 28.3, MCHC 30.8 L, RDW Std Deviation 50.3 H, RDW Coeff of Rhonda 14.8 H, Plt Count 311, MPV 10.5, Immature Gran % (Auto) 1.700 H, Neut % (Auto) 79.7 H, Lymph % (Auto) 11.7 L, [place] % (Auto) 6.6, Eos % (Auto) 0.1, Baso % (Auto) 0.2, Absolute Neuts (auto) 15.7 H, Absolute Lymphs (auto) 2.29, Nucleated RBC % 0 02/06/22 05:40: Sodium 144, Potassium 4.4, Chloride 116 H, Carbon Dioxide 23.0, Anion Gap 5, BUN 11, Creatinine 0.81, Estim Creat Clear Calc 42.76, Est GFR (MDRD) Af Amer 88, Est GFR (MDRD) Non-Af 73, BUN/Creatinine Ratio 13.6, Glucose 90, Calcium 8.2 L Micro: Microbiology 02/03/22 19:50 Blood Culture (Wb) - No Site/Description Given Bacteria Detection (PCR) - Final 02/03/22 19:50 Blood Culture (Wb) - No Site/Description Given Blood Culture - Preliminary Presumptive Micrococcus spp. 02/04/22 20:26 Stool C. difficile GDH Antigen & Toxins - Final 02/04/22 20:26 Stool C. difficile DNA Amplification - Final 02/04/22 20:26 Stool Enteric Bacteriology - Final Radiography Diagnostic Testing: Radiology Impression KUB X-Ray 02/05/22 12:46 IMPRESSION: Mildly distended colon. Electronically Signed: Ja Bailey MD at 14:11 EDT , Physical Exam Const alert and no apparent distress Resp normal respiratory effort, no retractions, no use of accessory muscles and clear to auscultation bilaterally Cardio regular rate, regular rhythm, S1 normal heart sound and S2 normal heart sound GI normal to inspection, nondistended, normoactive bowel sounds, soft to palpation and non-distended Palpation: tender Extremity normal to inspection and full ROM Assessment & Plan Assessment/Plan (1) Ulcerative colitis: QUALIFIERS: Digestive disease complication type: without complication Ulcerative colitis location: ulcerative pancolitis Qualified Code(s): K51.00 - Ulcerative (chronic) pancolitis without complications (2) C. difficile colitis: PLAN: 1. Acute C. difficile colitis * Started on vancomycin by Dr. Draper. Continue with IV metronidazole for now. * KUB showed mildly distended colon. * This likely explains patient's pronounced leukocytosis 2. acute ulcerative colitis flare * ruled out * Given that patient has positive C. difficile PCR Dr. Draper has discontinued the methylprednisolone. He is okay with continuing the azathioprine 3. +Blood culture * unclear if true infection. Unfortunately, only 1 BCx was performed, thus far showing presumptive micrococcus * Repeat BCx and start IV vancomycin 4. abnormal Urinalysis * 0-5 WBCs and no bacteria. * no evidence of UTI * no additional work up/treatment unless pt becomes symptomatic 5. VTE prophylaxis: LMWH 6. Malnutrition: * dietary consult * supplements DW Dr. Draper Charges/Coding Visit Charges Inpatient E&M: 26610 Subs Hosp L2
[2022-02-06] MEDS: azaTHIOprine 50 MG Tablet 100 MG PO (08:40)
[2022-02-06] MEDS: Enoxaparin 40 MG/0.4 ML Syringe SC (08:40)
[2022-02-06 08:47] VITALS: BP 113/52; PULSE 54; RESP 16; TEMP 36.3; O2SAT 98
[2022-02-06 09:00] VITALS: PULSE 54
[2022-02-06] MEDS: KCL 20MEQ in 0.9% NS 20 MEQ/1,000 ML IV.SOLN. 75 MEQ IV (12:36)
[2022-02-06] MEDS: Ensure Clear 120 ML Liquid PO ×2 (14:36→22:14)
[2022-02-06] MEDS: Vancomycin IV 1,000 MG/200 ML BAG 200 MG IV (15:21)
[2022-02-06 15:26] VITALS: BP 119/63; PULSE 66; RESP 16; TEMP 36.7; O2SAT 98
--- NOTE | 2022-02-06 15:54 | PCM.PROGNOTE ---
Subjective Subjective Patient is looking a lot better today. She had 3 episodes of loose stools yesterday with some urgency today. Her weight is seems to be stable. She does not have much of an appetite Objective Data Objective Data Vital Signs: Vital Signs Temp Pulse Resp BP Pulse Ox 98.0 F 66 16 119/63 98 02/06/22 15:26 02/06/22 15:26 02/06/22 15:26 02/06/22 15:26 02/06/22 15:26 Oxygen Delivery Method Room Air Weight: 107 lb 12.897 oz Body Mass Index (BMI) 18.3 Intake & Output: Intake and Output for Last 24 Hours 02/04/22 02/05/22 02/06/22 23:59 23:59 23:59 Intake Total 2400 / 2400 3433.75 / 3433.75 1800 / 1800 Output Total 100 / 100 Balance 2300 / 2300 3433.75 / 3433.75 1800 / 1800 Medical Nutrition Assessment Dietitian: Malnutrition Criteria Met Start: 02/04/22 12:10 Freq: Status: Active Protocol: Document 02/04/22 12:10 AG (Rec: 02/04/22 12:10 [id number]) Nutrition Malnutrition Evidence of Malnutrition Exists Yes Malnutrition (moderate): Acute Illness/Injury Evidenced By Suboptimal Energy Intake ( Moderate),Weight Loss (Severe) ,Physical Changes (Mild) Clinical Problem Acute Disease or Injury Related Malnutrition Etiology moderate, acute malnutrition related to inadequate energy intake with GI dysfunction Signs/Symptoms as evidenced by estimated PO intake meeting <50% of estimated energy needs >5 days ; mild muscle wasting and fat loss in orbital, temporal area ; visible clavicles, acromion process, scapula per physical exam; unintentional wt loss of ~17#/13.6% x 2 months; BMI 18 .4 Status Active Problem Recommendation Dietitian Recommendations/Changes Continue regular diet- will add fiber restriction given GI symptoms. Will offer 120mL ensure clear 4x/day w/ medpass for additional calories/ protein if consumed. Lab / Micro Data Result Diagrams: 02/06/22 05:40 02/06/22 05:40 Labs: Laboratory Results - last 24 hr 02/05/22 05:30: Total Bilirubin 0.20, Direct Bilirubin 0.08, AST 6 L, ALT < 6 L, Alkaline Phosphatase 89, Lactate Dehydrogenase 183, C-React Prot Ext Range 102.00 H, Total Protein 5.8 L, Albumin 2.2 L, Globulin 3.6 02/05/22 16:43: WBC 28.2 H, RBC 3.98 L, Hgb 11.4 L, Hct 37.0, MCV 93.0, MCH 28.6, MCHC 30.8 L, RDW Std Deviation 50.5 H, RDW Coeff of Rhonda 14.6, Plt Count 343, MPV 10.6, Immature Gran % (Auto) 1.900 H, Neut % (Auto) 87.8 H, Lymph % (Auto) 5.0 L, [place] % (Auto) 5.0, Eos % (Auto) 0.0, Baso % (Auto) 0.3, Absolute Neuts (auto) 24.8 H, Absolute Lymphs (auto) 1.40, Nucleated RBC % 0, Differential Comment SCANNED 02/05/22 16:43: Lactic Acid 1.8 02/06/22 05:40: WBC 19.7 H, RBC 3.81 L, Hgb 10.8 L, Hct 35.1 L, MCV 92.1, MCH 28.3, MCHC 30.8 L, RDW Std Deviation 50.3 H, RDW Coeff of Rhonda 14.8 H, Plt Count 311, MPV 10.5, Immature Gran % (Auto) 1.700 H, Neut % (Auto) 79.7 H, Lymph % (Auto) 11.7 L, [place] % (Auto) 6.6, Eos % (Auto) 0.1, Baso % (Auto) 0.2, Absolute Neuts (auto) 15.7 H, Absolute Lymphs (auto) 2.29, Nucleated RBC % 0 02/06/22 05:40: Sodium 144, Potassium 4.4, Chloride 116 H, Carbon Dioxide 23.0, Anion Gap 5, BUN 11, Creatinine 0.81, Estim Creat Clear Calc 42.76, Est GFR (MDRD) Af Amer 88, Est GFR (MDRD) Non-Af 73, BUN/Creatinine Ratio 13.6, Glucose 90, Calcium 8.2 L Micro: Microbiology 02/03/22 19:50 Blood Culture (Wb) - No Site/Description Given Bacteria Detection (PCR) - Final 02/03/22 19:50 Blood Culture (Wb) - No Site/Description Given Blood Culture - Preliminary Presumptive Micrococcus spp. 02/04/22 20:26 Stool C. difficile GDH Antigen & Toxins - Final 02/04/22 20:26 Stool C. difficile DNA Amplification - Final 02/04/22 20:26 Stool Enteric Bacteriology - Final Physical Exam Const alert General Appearance: cooperative Orientation / Consciousness: oriented to person HEENT hearing grossly normal bilaterally Head and Scalp: normal to inspection Face and Sinus: face symmetric Nose: external nose normal Mouth: oral and palatal mucosa normal Eyes conjunctivae normal General Eye: normal appearance of both eyes Neck full ROM General: normal visual inspection Lymph Lymphatic: no lymphadenopathy noted Chest inspection of chest normal and palpation of chest normal Chest: symmetrical chest wall rise Resp normal respiratory effort Effort and Inspection: able to speak in complete sentences Cardio regular rate GI non-distended Percussion: normal to percussion Rectal Exam: deferred Neuro Speech: speech normal Gait (Neuro): normal gait Assessment & Plan Assessment/Plan (1) C. difficile colitis: PLAN: Severe C. difficile pancolitis. She is on vancomycin 500 mg p.o. every 6 hours plus metronidazole 500 mg every 8 hours. White blood cell count is decreasing along with inflammatory markers. KUB did show dilation of the colon. I will add dicyclomine and Questran for the cramping and diarrhea she is experiencing. (2) Ulcerative colitis: QUALIFIERS: Ulcerative colitis location: ulcerative pancolitis Digestive disease complication type: without complication Qualified Code(s): K51.00 - Ulcerative (chronic) pancolitis without complications PLAN: Patient is a 5 3. She did get some steroids initially but is not on steroids at this time. I had a long talk with the patient regarding the plan that she was okay with the plan and is satisfied that she is getting the help she needs. Charges/Coding Visit Charges Inpatient E&M: 90214 Subs Hosp L2
[2022-02-06] MEDS: Dicyclomine 10 MG Capsule PO (17:53)
[2022-02-06 22:15] VITALS: BP 108/43; PULSE 64; RESP 18; TEMP 36.7; O2SAT 97
[2022-02-07] VITALS (7 sets, daily range): BP systolic 116–133; BP diastolic 53–59; PULSE 59–65; RESP 16–20; TEMP 36.6–36.9; O2SAT 93–98
[2022-02-07] MEDS: Vancomycin HCl 250 MG Capsule 500 MG PO ×4 (00:23→18:35)
[2022-02-07] MEDS: metroNIDAZOLE 500 MG/100 ML BAG 100 MG IV ×3 (05:35→21:52)
[2022-02-07] MEDS: Dicyclomine 10 MG Capsule PO ×3 (05:48→17:08)
[2022-02-07 06:59] LABS: Absolute Lymphocyte Count 1.86 X10^3/uL (0.83-4.51); Absolute Neutrophil Count 10.3 X10^3/uL (2.0-7.7); Basophil# 0.05 X10^3/uL; Basophil% 0.4 % (0-1); Eosinophil# 0.08 X10^3/uL; Eosinophils% 0.6 % (0-5); Hematocrit 34.5 % (37-47); Hemoglobin 10.8 g/dL (12.0-15.0); Lymphocyte # 1.86 X10^3/ul (0.83-4.51); Lymphocyte % 13.9 % (19-41); Mean Corp Hgb Conc 31.3 g/dL (32-36); Mean Corpuscular Hgb 28.9 pg (27.0-32.0); Mean Corpuscular Volume 92.2 fL (81-99); Mean Platelet Vol. 10.7 fl (6.2-12.0); Monocyte# 0.87 X10^3/uL; Monocyte% 6.5 % (0-10); NRBC Flagged by Analyzer 0 % (0-5); Neutrophil # 10.28 X10^3/uL (2.7-7.7); Neutrophil % 77.1 % (47-70); Platelet Count 295 K/mm3 (150-450); RBC Distribution Width CV 14.9 % (11.6-14.6); RBC Distribution Width SD 50.2 fl (35.1-43.9); Red Blood Count 3.74 M/mm3 (4.2-5.4); White Blood Count 13.3 K/mm3 (4.4-11.0)
[2022-02-07] MEDS: KCL 20MEQ in 0.9% NS 20 MEQ/1,000 ML IV.SOLN. 75 MEQ IV ×2 (07:12→21:51)
[2022-02-07] MEDS: Cholestyramine/Sucrose 4 GM/PACKET PO (07:15)
[2022-02-07 07:22] LABS: Anion Gap 3 (5-15); BUN 6 mg/dL (7-18); BUN/Creat Ratio 7.8 RATIO (10-20); Calcium,Total 7.7 mg/dL (8.5-10.1); Chloride 116 mmol/L (98-107); Creatinine, Serum 0.77 mg/dL (0.55-1.02); EST Glomerular Filtration Rate 77 mL/min (>60); Est Glom Filt Rate - Afr Amer 93 mL/min (>60); Estimated Creatinine Clearance 34.64 ml/min; Glucose 80 mg/dL (74-106); Sodium Level 143 mmol/L (136-145)
--- NOTE | 2022-02-07 08:55 | PN.HOSP_ITS ---
Subjective Subjective Still with diarrhea and abdominal pain. Not happy about the lack of appetite, but is eating. Objective Data Objective Data Vital Signs: Vital Signs Temp Pulse Resp BP Pulse Ox 36.6 C 65 16 116/59 L 97 02/07/22 04:30 02/07/22 04:30 02/07/22 04:30 02/07/22 04:30 02/07/22 04:30 Oxygen Delivery Method Room Air Weight: 48.9 kg Body Mass Index (BMI) 18.3 Intake & Output: Intake and Output for Last 24 Hours 02/05/22 02/06/22 02/07/22 23:59 23:59 23:59 Intake Total 3433.75 / 3433.75 2560 / 2560 1000 / 1000 Balance 3433.75 / 3433.75 2560 / 2560 1000 / 1000 Medical Nutrition Assessment Dietitian: Malnutrition Criteria Met Start: 02/04/22 12:10 Freq: Status: Active Protocol: Document 02/04/22 12:10 AG (Rec: 02/04/22 12:10 [id number]) Nutrition Malnutrition Evidence of Malnutrition Exists Yes Malnutrition (moderate): Acute Illness/Injury Evidenced By Suboptimal Energy Intake ( Moderate),Weight Loss (Severe) ,Physical Changes (Mild) Clinical Problem Acute Disease or Injury Related Malnutrition Etiology moderate, acute malnutrition related to inadequate energy intake with GI dysfunction Signs/Symptoms as evidenced by estimated PO intake meeting <50% of estimated energy needs >5 days ; mild muscle wasting and fat loss in orbital, temporal area ; visible clavicles, acromion process, scapula per physical exam; unintentional wt loss of ~17#/13.6% x 2 months; BMI 18 .4 Status Active Problem Recommendation Dietitian Recommendations/Changes Continue regular diet- will add fiber restriction given GI symptoms. Will offer 120mL ensure clear 4x/day w/ medpass for additional calories/ protein if consumed. Lab / Micro Data Result Diagrams: 02/07/22 05:40 02/07/22 05:40 Labs: Laboratory Results - last 24 hr 02/07/22 05:40: WBC 13.3 H, RBC 3.74 L, Hgb 10.8 L, Hct 34.5 L, MCV 92.2, MCH 28.9, MCHC 31.3 L, RDW Std Deviation 50.2 H, RDW Coeff of Rhonda 14.9 H, Plt Count 295, MPV 10.7, Immature Gran % (Auto) 1.500 H, Neut % (Auto) 77.1 H, Lymph % (Auto) 13.9 L, [place] % (Auto) 6.5, Eos % (Auto) 0.6, Baso % (Auto) 0.4, Absolute Neuts (auto) 10.3 H, Absolute Lymphs (auto) 1.86, Nucleated RBC % 0 02/07/22 05:40: Sodium 143, Potassium 4.0, Chloride 116 H, Carbon Dioxide 24.0, Anion Gap 3 L, BUN 6 L, Creatinine 0.77, Estim Creat Clear Calc 34.64, Est GFR (MDRD) Af Amer 93, Est GFR (MDRD) Non-Af 77, BUN/Creatinine Ratio 7.8 L, Glucose 80, Calcium 7.7 L Micro: Microbiology 02/05/22 13:30 Blood Culture (Wb) - Right Hand Blood Culture - Preliminary No growth in 48 hours. 02/05/22 13:25 Blood Culture (Wb) - Anticubital Right Blood Culture - Preliminary No growth in 48 hours. 02/03/22 19:50 Blood Culture (Wb) - No Site/Description Given Bacteria Detection (PCR) - Final 02/03/22 19:50 Blood Culture (Wb) - No Site/Description Given Blood Culture - Preliminary Presumptive Micrococcus spp. 02/04/22 20:26 Stool C. difficile GDH Antigen & Toxins - Final 02/04/22 20:26 Stool C. difficile DNA Amplification - Final 02/04/22 20:26 Stool Enteric Bacteriology - Final Physical Exam Const alert and no apparent distress Resp normal respiratory effort, no retractions, no use of accessory muscles and clear to auscultation bilaterally Cardio regular rate, regular rhythm, S1 normal heart sound and S2 normal heart sound GI normal to inspection, nondistended, normoactive bowel sounds, soft to palpation and non-distended GI Narrative: minimal LUQ tenderness. Extremity normal to inspection Neuro Sensorium / Orientation: awake and alert Assessment & Plan Assessment/Plan (1) Ulcerative colitis: QUALIFIERS: Digestive disease complication type: without complication Ulcerative colitis location: ulcerative pancolitis Qualified C ode(s): K51.00 - Ulcerative (chronic) pancolitis without complications (2) C. difficile colitis: PLAN: 1. Acute C. difficile colitis * Continue PO vanc and IV metronidazole for now. Upon discharge, continue with PO vancomycin. * Upon discharge would treat with vancomycin 125mg Q6h through 02/13/2022 * KUB showed mildly distended colon. No clinical evidence of toxic megacolon. * This likely explains patient's pronounced leukocytosis, which responding appropriately 2. acute ulcerative colitis flare * ruled out * Given that patient has positive C. difficile PCR Dr. Draper has discontinued the methylprednisolone. He is okay with continuing the azathioprine. 3. +Blood culture * bacteremia ruled out. * Bcx on 02/03 was contaminant, but could not determine based on that alone as only one blood culture was performed. * Repeat BCx on the were negative at 48h, so will discontinue IV vancomycin. 4. abnormal Urinalysis * 0-5 WBCs and no bacteria. * no evidence of UTI * no additional work up/treatment unless pt becomes symptomatic 5. VTE prophylaxis: LMWH 6. Malnutrition: * dietary consult * supplements Disposition: pending. Pt will need authorization for oral vancomycin as she does not have medication coverage. Plan for home with or without [facility]. Charges/Coding Visit Charges Inpatient E&M: 73431 Subs Hosp L2
[2022-02-07] MEDS: azaTHIOprine 50 MG Tablet 100 MG PO (11:31)
[2022-02-07] MEDS: Enoxaparin 40 MG/0.4 ML Syringe SC (11:31)
[2022-02-07 14:14] LABS: Vancomycin, Trough Level 9.9 ug/mL (5.0-15.0)
[2022-02-07] MEDS: Ensure Clear 120 ML Liquid PO ×2 (14:54→21:51)
[2022-02-08] MEDS: Vancomycin HCl 250 MG Capsule 500 MG PO ×5 (00:26→23:20)
[2022-02-08 02:20] VITALS: BP 127/57; PULSE 65; RESP 14; TEMP 36.8; O2SAT 97
[2022-02-08] MEDS: Ondansetron 4 MG/2 ML Vial IV ×2 (05:49→18:31)
[2022-02-08] MEDS: metroNIDAZOLE 500 MG/100 ML BAG 100 MG IV ×3 (05:50→21:03)
[2022-02-08 06:23] LABS: Absolute Lymphocyte Count 2.12 X10^3/uL (0.83-4.51); Absolute Neutrophil Count 15.2 X10^3/uL (2.0-7.7); Basophil# 0.06 X10^3/uL; Basophil% 0.3 % (0-1); Eosinophils% 1.6 % (0-5); Hematocrit 33.9 % (37-47); Hemoglobin 10.6 g/dL (12.0-15.0); Lymphocyte # 2.12 X10^3/ul (0.83-4.51); Lymphocyte % 11.2 % (19-41); Mean Corp Hgb Conc 31.3 g/dL (32-36); Mean Corpuscular Hgb 28.3 pg (27.0-32.0); Mean Corpuscular Volume 90.6 fL (81-99); Monocyte# 0.93 X10^3/uL; Monocyte% 4.9 % (0-10); NRBC Flagged by Analyzer 0 % (0-5); Neutrophil # 15.21 X10^3/uL (2.7-7.7); Neutrophil % 80.4 % (47-70); Platelet Count 299 K/mm3 (150-450); RBC Distribution Width CV 14.6 % (11.6-14.6); RBC Distribution Width SD 49.1 fl (35.1-43.9); Red Blood Count 3.74 M/mm3 (4.2-5.4); White Blood Count 18.9 K/mm3 (4.4-11.0)
[2022-02-08] MEDS: Dicyclomine 10 MG Capsule PO ×3 (06:40→17:02)
[2022-02-08 06:55] LABS: Anion Gap 7 (5-15); BUN 3 mg/dL (7-18); BUN/Creat Ratio 4.6 RATIO (10-20); Calcium,Total 7.3 mg/dL (8.5-10.1); Chloride 112 mmol/L (98-107); Creatinine, Serum 0.65 mg/dL (0.55-1.02); EST Glomerular Filtration Rate 93 mL/min (>60); Est Glom Filt Rate - Afr Amer 112 mL/min (>60); Estimated Creatinine Clearance 34.64 ml/min; Glucose 82 mg/dL (74-106); Potassium 3.6 mmol/L (3.5-5.1); Sodium Level 142 mmol/L (136-145)
--- NOTE | 2022-02-08 09:22 | PCM.PN.HOSP ---
Subjective Subjective Patient is an 81-year-old lady with significant past medical history including colon cancer status post colectomy, history of ulcerative colitis who presented with a week history of persistent diarrhea with crampy abdominal pain. Patient was admitted to regular nursing floor for subsequent management. Patient stool assay came back positive for C. difficile. CT of the abdomen obtained on admission findings consistent with diffuse colitis. Objective Data Objective Data Vital Signs: Vital Signs Temp Pulse Resp BP Pulse Ox 98.3 F 65 14 127/57 H 97 02/08/22 02:20 02/08/22 02:20 02/08/22 02:20 02/08/22 02:20 02/08/22 02:20 Oxygen Delivery Method Room Air Weight: 48.9 kg Body Mass Index (BMI) 18.3 Intake & Output: Intake and Output for Last 24 Hours 02/06/22 02/07/22 02/08/22 23:59 23:59 23:59 Intake Total 2560 / 2560 3102.5 / 3102.5 Balance 2560 / 2560 3102.5 / 3102.5 Medical Nutrition Assessment Dietitian: Malnutrition Criteria Met Start: 02/04/22 12:10 Freq: Status: Active Protocol: Document 02/04/22 12:10 AG (Rec: 02/04/22 12:10 [id number]) Nutrition Malnutrition Evidence of Malnutrition Exists Yes Malnutrition (moderate): Acute Illness/Injury Evidenced By Suboptimal Energy Intake ( Moderate),Weight Loss (Severe) ,Physical Changes (Mild) Clinical Problem Acute Disease or Injury Related Malnutrition Etiology moderate, acute malnutrition related to inadequate energy intake with GI dysfunction Signs/Symptoms as evidenced by estimated PO intake meeting <50% of estimated energy needs >5 days ; mild muscle wasting and fat loss in orbital, temporal area ; visible clavicles, acromion process, scapula per physical exam; unintentional wt loss of ~17#/13.6% x 2 months; BMI 18 .4 Status Active Problem Recommendation Dietitian Recommendations/Changes Continue regular diet- will add fiber restriction given GI symptoms. Will offer 120mL ensure clear 4x/day w/ medpass for additional calories/ protein if consumed. Lab / Micro Data Result Diagrams: 02/08/22 05:09 02/08/22 05:09 Labs: Laboratory Results - last 24 hr 02/07/22 13:30: Vancomycin Trough 9.9 02/08/22 05:09: WBC 18.9 H, RBC 3.74 L, Hgb 10.6 L, Hct 33.9 L, MCV 90.6, MCH 28.3, MCHC 31.3 L, RDW Std Deviation 49.1 H, RDW Coeff of Rhonda 14.6, Plt Count 299, MPV 11.0, Immature Gran % (Auto) 1.600 H, Neut % (Auto) 80.4 H, Lymph % (Auto) 11.2 L, [place] % (Auto) 4.9, Eos % (Auto) 1.6, Baso % (Auto) 0.3, Absolute Neuts (auto) 15.2 H, Absolute Lymphs (auto) 2.12, Nucleated RBC % 0 02/08/22 05:09: Sodium 142, Potassium 3.6, Chloride 112 H, Carbon Dioxide 23.0, Anion Gap 7, BUN 3 L, Creatinine 0.65, Estim Creat Clear Calc 34.64, Est GFR (MDRD) Af Amer 112, Est GFR (MDRD) Non-Af 93, BUN/Creatinine Ratio 4.6 L, Glucose 82, Calcium 7.3 L Micro: Microbiology 02/05/22 13:30 Blood Culture (Wb) - Right Hand Blood Culture - Preliminary No growth in 48 hours. 02/05/22 13:25 Blood Culture (Wb) - Anticubital Right Blood Culture - Preliminary No growth in 48 hours. 02/03/22 19:50 Blood Culture (Wb) - No Site/Description Given Bacteria Detection (PCR) - Final 02/03/22 19:50 Blood Culture (Wb) - No Site/Description Given Blood Culture - Preliminary Presumptive Micrococcus spp. 02/04/22 20:26 Stool C. difficile GDH Antigen & Toxins - Final 02/04/22 20:26 Stool C. difficile DNA Amplification - Final 02/04/22 20:26 Stool Enteric Bacteriology - Final Physical Exam Narrative GENERAL: cooperative HEENT: Atraumatic; EYES; Anicteric, Normal Conjunctiva NECK; supple, normal thyroid, RESPIRATORY: Diminished to auscultation CARDIOVASCULAR: Regular S1 S2, GI: soft, normoactive bowel sounds, : No Renal angle tenderness; EXTREMITIES: No edema, no clubbing, MUSCULOSKELETAL: no muscle wasting NEURO: Awake; no lateralizing signs. SKIN: No Rash PSYCH; Flat affect Assessment & Plan Assessment/Plan (1) Ulcerative colitis: QUALIFIERS: Ulcerative colitis location: ulcerative pancolitis Digestive disease complication type: without complication Qualified Code(s): K51.00 - Ulcerative (chronic) pancolitis without complications (2) C. difficile colitis: PLAN: Patient is an 81-year-old lady with significant past medical history including colon cancer status post colectomy, history of ulcerative colitis who presented with a week history of persistent diarrhea with crampy abdominal pain. Patient was admitted to regular nursing floor for subsequent management. Patient stool assay came back positive for C. difficile. CT of the abdomen obtained on admission findings consistent with diffuse colitis. 1. Acute C. difficile colitis ? Patient is being managed with p.o. vancomycin and IV metronidazole given the extensive nature of her colitis. Patient still has persistent leukocytosis and has diarrhea. Plan is to continue with current therapy 2. History of ulcerative colitis ? Acute flareup was ruled out on admission 3. History of colon cancer ? Status post colectomy patient currently in remission 4. Moderate protein calorie malnutrition ? Evidenced by severe weight loss suboptimal energy intake and this is as a result of acute illness. Patient has been seen by dietitian and Ensure clear 4 times a day with meals recommended 5. Transient bacteremia with presumptive micrococcus species ? Thought to be contaminant 6. DVT prophylaxis ? Enoxaparin Charges/Coding Visit Charges Inpatient E&M: 03835 Subs Hosp L2
--- NOTE | 2022-02-08 09:42 | CASEMGMT ---
TC to [facility] pharmacy to check cost of vanc as pt was previously prescribed. Cost is approx $300 per Lc. RN CM in to pt room. Pt sitting up in bed. Discussed with patient options for therapy and if she felt it would be beneficial to her. Pt states she is not the professional. Discussed that we will see how she feels after she works with therapy today to make a decision. Pt states she does not feel ready to dc home but cannot give specific reasons why. Discussed HHC for further support in the home. Pt will think about this. 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 Discussed cost of vanc with patient. She states this is affordable to her. Updated hospitalist.
[2022-02-08 09:50] VITALS: BP 122/68; PULSE 60; RESP 16; TEMP 36.4; O2SAT 97
[2022-02-08] MEDS: Ensure Clear 120 ML Liquid PO ×3 (10:27→21:04)
[2022-02-08] MEDS: azaTHIOprine 50 MG Tablet 100 MG PO (10:27)
[2022-02-08] MEDS: Enoxaparin 40 MG/0.4 ML Syringe SC (10:27)
[2022-02-08] MEDS: KCL 20MEQ in 0.9% NS 20 MEQ/1,000 ML IV.SOLN. 75 MEQ IV (14:12)
[2022-02-08 14:17] VITALS: BP 127/62; PULSE 60; RESP 16; TEMP 36.9; O2SAT 99
[2022-02-08] MEDS: 0.9% Saline Lock 10 ML Syringe IV (18:31)
[2022-02-08 21:02] VITALS: BP 127/65; PULSE 79; RESP 16; TEMP 37.2; O2SAT 97
[2022-02-09 02:43] VITALS: BP 141/65; PULSE 68; RESP 18; TEMP 36.6; O2SAT 98
[2022-02-09] MEDS: Vancomycin HCl 250 MG Capsule 500 MG PO ×4 (05:11→23:41)
[2022-02-09] MEDS: Dicyclomine 10 MG Capsule PO ×3 (05:11→18:36)
[2022-02-09] MEDS: KCL 20MEQ in 0.9% NS 20 MEQ/1,000 ML IV.SOLN. 75 MEQ IV ×2 (05:13→20:41)
[2022-02-09] MEDS: Cholestyramine/Sucrose 4 GM/PACKET PO (05:13)
[2022-02-09] MEDS: metroNIDAZOLE 500 MG/100 ML BAG 100 MG IV ×3 (05:13→20:45)
[2022-02-09 06:26] LABS: Absolute Lymphocyte Count 1.99 X10^3/uL (0.83-4.51); Absolute Neutrophil Count 16.2 X10^3/uL (2.0-7.7); Basophil# 0.09 X10^3/uL; Basophil% 0.4 % (0-1); Eosinophil# 0.45 X10^3/uL; Eosinophils% 2.2 % (0-5); Hematocrit 34.1 % (37-47); Hemoglobin 10.7 g/dL (12.0-15.0); Lymphocyte # 1.99 X10^3/ul (0.83-4.51); Lymphocyte % 9.9 % (19-41); Mean Corp Hgb Conc 31.4 g/dL (32-36); Mean Corpuscular Hgb 28.5 pg (27.0-32.0); Mean Corpuscular Volume 90.9 fL (81-99); Mean Platelet Vol. 10.3 fl (6.2-12.0); Monocyte# 1.05 X10^3/uL; Monocyte% 5.2 % (0-10); NRBC Flagged by Analyzer 0 % (0-5); Neutrophil # 16.21 X10^3/uL (2.7-7.7); Neutrophil % 80.9 % (47-70); Platelet Count 310 K/mm3 (150-450); RBC Distribution Width CV 14.8 % (11.6-14.6); RBC Distribution Width SD 49.1 fl (35.1-43.9); Red Blood Count 3.75 M/mm3 (4.2-5.4); White Blood Count 20.1 K/mm3 (4.4-11.0)
[2022-02-09 06:54] LABS: Anion Gap 5 (5-15); BUN 2 mg/dL (7-18); BUN/Creat Ratio 3.2 RATIO (10-20); Calcium,Total 7.4 mg/dL (8.5-10.1); Chloride 109 mmol/L (98-107); Creatinine, Serum 0.63 mg/dL (0.55-1.02); EST Glomerular Filtration Rate 96 mL/min (>60); Est Glom Filt Rate - Afr Amer 116 mL/min (>60); Estimated Creatinine Clearance 34.64 ml/min; Glucose 94 mg/dL (74-106); Potassium 3.4 mmol/L (3.5-5.1); Sodium Level 140 mmol/L (136-145)
--- NOTE | 2022-02-09 07:17 | PN.HOSP_ITS ---
Subjective Subjective Patient seen still complains of watery diarrhea. WBC count still remains elevated Objective Data Objective Data Vital Signs: Vital Signs Temp Pulse Resp BP Pulse Ox 97.9 F 68 18 141/65 H 98 02/09/22 02:43 02/09/22 02:43 02/09/22 02:43 02/09/22 02:43 02/09/22 02:43 Oxygen Delivery Method Room Air Weight: 48.9 kg Body Mass Index (BMI) 18.3 Intake & Output: Intake and Output for Last 24 Hours 02/07/22 02/08/22 02/09/22 23:59 23:59 23:59 Intake Total 3102.5 / 3102.5 2512.5 / 2512.5 592.5 / 592.5 Balance 3102.5 / 3102.5 2512.5 / 2512.5 592.5 / 592.5 Medical Nutrition Assessment Dietitian: Malnutrition Criteria Met Start: 02/04/22 12:10 Freq: Status: Active Protocol: Document 02/08/22 14:41 JAROD (Rec: 02/08/22 14:41 JAROD [id number]) Nutrition Malnutrition Evidence of Malnutrition Exists Yes Malnutrition (moderate): Acute Illness/Injury Evidenced By Suboptimal Energy Intake ( Moderate),Weight Loss (Severe) ,Physical Changes (Mild) Clinical Problem Acute Disease or Injury Related Malnutrition Etiology moderate, acute malnutrition related to inadequate energy intake with GI dysfunction Signs/Symptoms as evidenced by estimated PO intake meeting <50% of estimated energy needs >5 days ; mild muscle wasting and fat loss in orbital, temporal area ; visible clavicles, acromion process, scapula per physical exam; unintentional wt loss of ~17#/13.6% x 2 months; BMI 18 .4 Status Active Problem Recommendation Dietitian Recommendations/Changes Continue regular diet- with fiber restriction given GI symptoms. Continue to offer 120mL ensure clear 4x/day w/ medpass for additional calories/protein if consumed. Lab / Micro Data Result Diagrams: 02/09/22 05:40 02/09/22 05:40 Labs: Laboratory Results - last 24 hr 02/09/22 05:40: WBC 20.1 H, RBC 3.75 L, Hgb 10.7 L, Hct 34.1 L, MCV 90.9, MCH 28.5, MCHC 31.4 L, RDW Std Deviation 49.1 H, RDW Coeff of Rhonda 14.8 H, Plt Count 310, MPV 10.3, Immature Gran % (Auto) 1.400 H, Neut % (Auto) 80.9 H, Lymph % (Auto) 9.9 L, [place] % (Auto) 5.2, Eos % (Auto) 2.2, Baso % (Auto) 0.4, Absolute Neuts (auto) 16.2 H, Absolute Lymphs (auto) 1.99, Nucleated RBC % 0 02/09/22 05:40: Sodium 140, Potassium 3.4 L, Chloride 109 H, Carbon Dioxide 26.0, Anion Gap 5, BUN 2 L, Creatinine 0.63, Estim Creat Clear Calc 34.64, Est GFR (MDRD) Af Amer 116, Est GFR (MDRD) Non-Af 96, BUN/Creatinine Ratio 3.2 L, Glucose 94, Calcium 7.4 L Micro: Microbiology 02/05/22 13:30 Blood Culture (Wb) - Right Hand Blood Culture - Preliminary No growth in 48 hours. 02/05/22 13:25 Blood Culture (Wb) - Anticubital Right Blood Culture - Preliminary No growth in 48 hours. 02/03/22 19:50 Blood Culture (Wb) - No Site/Description Given Bacteria Detection (PCR) - Final 02/03/22 19:50 Blood Culture (Wb) - No Site/Description Given Blood Culture - Preliminary Presumptive Micrococcus spp. 02/04/22 20:26 Stool C. difficile GDH Antigen & Toxins - Final 02/04/22 20:26 Stool C. difficile DNA Amplification - Final 02/04/22 20:26 Stool Enteric Bacteriology - Final Physical Exam Narrative GENERAL: cooperative HEENT: Atraumatic; EYES; Anicteric, Normal Conjunctiva NECK; supple, normal thyroid, RESPIRATORY: Diminished to auscultation CARDIOVASCULAR: Regular S1 S2, GI: soft, normoactive bowel sounds, : No Renal angle tenderness; EXTREMITIES: No edema, no clubbing, MUSCULOSKELETAL: no muscle wasting NEURO: Awake; no lateralizing signs. SKIN: No Rash PSYCH; Flat affect Assessment & Plan Assessment/Plan (1) Ulcerative colitis: QUALIFIERS: Digestive disease complication type: without complication Ulcerative colitis location: ulcerative pancolitis Qualified Code(s): K51.00 - Ulcerative (chronic) pancolitis without complications (2) C. difficile colitis: PLAN: Patient is an 81-year-old lady with significant past medical history including colon cancer status post colectomy, history of ulcerative colitis who presented with a week history of persistent diarrhea with crampy abdominal pain. Patient was admitted to regular nursing floor for subsequent management. Patient stool assay came back positive for C. difficile. CT of the abdomen obtained on admission findings consistent with diffuse colitis. 1. Acute C. difficile colitis ? Patient is being managed with p.o. vancomycin and IV metronidazole given the extensive nature of her colitis. Patient still has persistent leukocytosis and has diarrhea. Plan is to continue with current therapy 02/09/2022 Patient seen still complains of watery diarrhea. WBC count still remains elevated 2. History of ulcerative colitis ? Acute flareup was ruled out on admission 3. History of colon cancer ? Status post colectomy patient currently in remission 4. Moderate protein calorie malnutrition ? Evidenced by severe weight loss suboptimal energy intake and this is as a result of acute illness. Patient has been seen by dietitian and Ensure clear 4 times a day with meals recommended 5. Transient bacteremia with presumptive micrococcus species ? Thought to be contaminant 6. DVT prophylaxis ? Enoxaparin 7. Hypokalemia ? Corrected per protocol Charges/Coding Visit Charges Inpatient E&M: 98441 Subs Hosp L2
[2022-02-09 09:36] VITALS: BP 128/53; PULSE 62; RESP 16; TEMP 36.6; O2SAT 97
[2022-02-09] MEDS: azaTHIOprine 50 MG Tablet 100 MG PO (09:41)
[2022-02-09] MEDS: Enoxaparin 40 MG/0.4 ML Syringe SC (09:41)
[2022-02-09] MEDS: Ensure Clear 120 ML Liquid PO ×2 (09:41→13:53)
[2022-02-09] MEDS: Potassium Chloride Oral Tablet 20 MEQ PO (11:25)
--- NOTE | 2022-02-09 11:49 | CASEMGMT ---
AMARJIT CM in to pt room, pt sitting up in bed eating lunch with family at bedside. Pt states she has reviewed the list provided and she chooses [facility] for HHC. TC to [facility], spoke with Becky, pt accepted. Pt updated.
[2022-02-09 17:06] VITALS: BP 126/60; PULSE 65; RESP 16; TEMP 36.4; O2SAT 99
[2022-02-09] MEDS: Ondansetron 4 MG/2 ML Vial IV (17:12)
[2022-02-09] MEDS: 0.9% Saline Lock 10 ML Syringe IV (17:12)
[2022-02-09 20:39] VITALS: BP 125/56; PULSE 61; RESP 16; TEMP 37.1; O2SAT 98
[2022-02-10 02:00] VITALS: BP 128/70; PULSE 68; RESP 16; TEMP 37.2; O2SAT 99
[2022-02-10 05:45] LABS: Absolute Lymphocyte Count 1.77 X10^3/uL (0.83-4.51); Basophil# 0.06 X10^3/uL; Basophil% 0.4 % (0-1); Eosinophils% 3.2 % (0-5); Hematocrit 33.1 % (37-47); Hemoglobin 10.2 g/dL (12.0-15.0); Lymphocyte # 1.77 X10^3/ul (0.83-4.51); Lymphocyte % 11.4 % (19-41); Mean Corp Hgb Conc 30.8 g/dL (32-36); Mean Corpuscular Hgb 28.2 pg (27.0-32.0); Mean Corpuscular Volume 91.4 fL (81-99); Mean Platelet Vol. 10.1 fl (6.2-12.0); Monocyte# 0.93 X10^3/uL; NRBC Flagged by Analyzer 0 % (0-5); Neutrophil # 12.03 X10^3/uL (2.7-7.7); Neutrophil % 77.8 % (47-70); Platelet Count 300 K/mm3 (150-450); RBC Distribution Width SD 49.9 fl (35.1-43.9); Red Blood Count 3.62 M/mm3 (4.2-5.4); White Blood Count 15.5 K/mm3 (4.4-11.0)
[2022-02-10] MEDS: Ondansetron 4 MG/2 ML Vial IV (06:08)
[2022-02-10] MEDS: 0.9% Saline Lock 10 ML Syringe IV (06:08)
[2022-02-10] MEDS: Vancomycin HCl 250 MG Capsule 500 MG PO ×4 (06:09→23:19)
[2022-02-10] MEDS: metroNIDAZOLE 500 MG/100 ML BAG 100 MG IV ×3 (06:09→21:03)
[2022-02-10] MEDS: Dicyclomine 10 MG Capsule PO ×3 (06:10→15:52)
[2022-02-10 06:21] LABS: Anion Gap 3 (5-15); BUN 3 mg/dL (7-18); BUN/Creat Ratio 4.9 RATIO (10-20); Calcium,Total 7.6 mg/dL (8.5-10.1); Chloride 110 mmol/L (98-107); Creatinine, Serum 0.61 mg/dL (0.55-1.02); EST Glomerular Filtration Rate 100 mL/min (>60); Est Glom Filt Rate - Afr Amer 121 mL/min (>60); Estimated Creatinine Clearance 34.64 ml/min; Glucose 89 mg/dL (74-106); Magnesium 1.7 mg/dL (1.6-2.6); Potassium 3.8 mmol/L (3.5-5.1); Sodium Level 141 mmol/L (136-145)
--- NOTE | 2022-02-10 07:22 | PN.HOSP_ITS ---
Subjective Subjective Seen still continues to experience loose bowel movement. She had apparently refused cholestyramine ordered to help with profuse diarrhea. Did encourage patient to take the cholestyramine. WBC count still remains elevated Objective Data Objective Data Vital Signs: Vital Signs Temp Pulse Resp BP Pulse Ox 98.9 F 68 16 128/70 H 99 02/10/22 02:00 02/10/22 02:00 02/10/22 02:00 02/10/22 02:00 02/10/22 02:00 Oxygen Delivery Method Room Air Weight: 48.9 kg Body Mass Index (BMI) 18.3 Intake & Output: Intake and Output for Last 24 Hours 02/08/22 02/09/22 02/10/22 23:59 23:59 23:59 Intake Total 2512.5 / 2512.5 2890.0 / 2890.0 635 / 635 Balance 2512.5 / 2512.5 2890.0 / 2890.0 635 / 635 Medical Nutrition Assessment Dietitian: Malnutrition Criteria Met Start: 02/04/22 12:10 Freq: Status: Active Protocol: Document 02/08/22 14:41 JAROD (Rec: 02/08/22 14:41 SLA [id number]) Nutrition Malnutrition Evidence of Malnutrition Exists Yes Malnutrition (moderate): Acute Illness/Injury Evidenced By Suboptimal Energy Intake ( Moderate),Weight Loss (Severe) ,Physical Changes (Mild) Clinical Problem Acute Disease or Injury Related Malnutrition Etiology moderate, acute malnutrition related to inadequate energy intake with GI dysfunction Signs/Symptoms as evidenced by estimated PO intake meeting <50% of estimated energy needs >5 days ; mild muscle wasting and fat loss in orbital, temporal area ; visible clavicles, acromion process, scapula per physical exam; unintentional wt loss of ~17#/13.6% x 2 months; BMI 18 .4 Status Active Problem Recommendation Dietitian Recommendations/Changes Continue regular diet- with fiber restriction given GI symptoms. Continue to offer 120mL ensure clear 4x/day w/ medpass for additional calories/protein if consumed. Lab / Micro Data Result Diagrams: 02/10/22 05:25 02/10/22 05:25 Labs: Laboratory Results - last 24 hr 02/10/22 05:25: WBC 15.5 H, RBC 3.62 L, Hgb 10.2 L, Hct 33.1 L, MCV 91.4, MCH 28.2, MCHC 30.8 L, RDW Std Deviation 49.9 H, RDW Coeff of Rhonda 15.0 H, Plt Count 300, MPV 10.1, Immature Gran % (Auto) 1.200 H, Neut % (Auto) 77.8 H, Lymph % (Auto) 11.4 L, [place] % (Auto) 6.0, Eos % (Auto) 3.2, Baso % (Auto) 0.4, Absolute Neuts (auto) 12.0 H, Absolute Lymphs (auto) 1.77, Nucleated RBC % 0 02/10/22 05:25: Sodium 141, Potassium 3.8, Chloride 110 H, Carbon Dioxide 28.0, Anion Gap 3 L, BUN 3 L, Creatinine 0.61, Estim Creat Clear Calc 34.64, Est GFR (MDRD) Af Amer 121, Est GFR (MDRD) Non-Af 100, BUN/Creatinine Ratio 4.9 L, Glucose 89, Calcium 7.6 L, Magnesium 1.7 Micro: Microbiology 02/03/22 19:50 Blood Culture (Wb) - No Site/Description Given Bacteria Detection (PCR) - Final 02/03/22 19:50 Blood Culture (Wb) - No Site/Description Given Blood Culture - Final Presumptive Micrococcus spp. 02/05/22 13:30 Blood Culture (Wb) - Right Hand Blood Culture - Preliminary No growth in 48 hours. 02/05/22 13:25 Blood Culture (Wb) - Anticubital Right Blood Culture - Preliminary No growth in 48 hours. 02/04/22 20:26 Stool C. difficile GDH Antigen & Toxins - Final 02/04/22 20:26 Stool C. difficile DNA Amplification - Final 02/04/22 20:26 Stool Enteric Bacteriology - Final Physical Exam Narrative GENERAL: cooperative HEENT: Atraumatic; EYES; Anicteric, Normal Conjunctiva NECK; supple, normal thyroid, RESPIRATORY: Diminished to auscultation CARDIOVASCULAR: Regular S1 S2, GI: soft, normoactive bowel sounds, : No Renal angle tenderness; EXTREMITIES: No edema, no clubbing, MUSCULOSKELETAL: no muscle wasting NEURO: Awake; no lateralizing signs. SKIN: No Rash PSYCH; Flat affect Assessment & Plan Assessment/Plan (1) Ulcerative colitis: QUALIFIERS: Digestive disease complication type: without complication Ulcerative colitis location: ulcerative pancolitis Qualified Code(s): K51.00 - Ulcerative (chronic) pancolitis without complications (2) C. difficile colitis: PLAN: Patient is an 81-year-old lady with significant past medical history including colon cancer status post colectomy, history of ulcerative colitis who presented with a week history of persistent diarrhea with crampy abdominal pain. Patient was admitted to regular nursing floor for subsequent management. Patient stool assay came back positive for C. difficile. CT of the abdomen obtained on admission findings consistent with diffuse colitis. 1. Acute C. difficile colitis ? Patient is being managed with p.o. vancomycin and IV metronidazole given the extensive nature of her colitis. Patient still has persistent leukocytosis and has diarrhea. Plan is to continue with current therapy 02/09/2022 Patient seen still complains of watery diarrhea. WBC count still remains elevated 02/10/2022een still continues to experience loose bowel movement. She had apparently refused cholestyramine ordered to help with profuse diarrhea. Did encourage patient to take the cholestyramine. WBC count still remains elevated 2. History of ulcerative colitis ? Acute flareup was ruled out on admission 3. History of colon cancer ? Status post colectomy patient currently in remission 4. Moderate protein calorie malnutrition ? Evidenced by severe weight loss suboptimal energy intake and this is as a result of acute illness. Patient has been seen by dietitian and Ensure clear 4 times a day with meals recommended 5. Transient bacteremia with presumptive micrococcus species ? Thought to be contaminant 6. DVT prophylaxis ? Enoxaparin 7. Hypokalemia ? Corrected per protocol Charges/Coding Visit Charges Inpatient E&M: 80486 Subs Hosp L2
[2022-02-10 07:47] VITALS: O2SAT 94
[2022-02-10 07:51] VITALS: BP 124/60; PULSE 64; RESP 18; TEMP 37; O2SAT 96
[2022-02-10] MEDS: Ensure Clear 120 ML Liquid PO ×3 (10:35→21:03)
[2022-02-10] MEDS: KCL 20MEQ in 0.9% NS 20 MEQ/1,000 ML IV.SOLN. 75 MEQ IV (10:36)
[2022-02-10] MEDS: Enoxaparin 40 MG/0.4 ML Syringe SC (10:36)
[2022-02-10] MEDS: azaTHIOprine 50 MG Tablet 100 MG PO (10:36)
[2022-02-10 14:29] VITALS: BP 128/55; PULSE 61; RESP 18; TEMP 36.6; O2SAT 99
[2022-02-10 17:03] LABS: Calprotectin, Stool 2837 ug/g (0-120)
[2022-02-10 21:02] VITALS: BP 128/59; PULSE 64; RESP 18; TEMP 36.8; O2SAT 98
[2022-02-11] MEDS: KCL 20MEQ in 0.9% NS 20 MEQ/1,000 ML IV.SOLN. 75 MEQ IV ×2 (02:47→16:25)
[2022-02-11 02:48] VITALS: BP 132/63; PULSE 65; RESP 18; TEMP 36.7; O2SAT 98
[2022-02-11 06:17] LABS: Absolute Neutrophil Count 9.1 X10^3/uL (2.0-7.7); Basophil# 0.06 X10^3/uL; Basophil% 0.5 % (0-1); Eosinophil# 0.47 X10^3/uL; Eosinophils% 3.7 % (0-5); Hematocrit 32.9 % (37-47); Hemoglobin 10.3 g/dL (12.0-15.0); Lymphocyte % 15.1 % (19-41); Mean Corp Hgb Conc 31.3 g/dL (32-36); Mean Corpuscular Hgb 28.3 pg (27.0-32.0); Mean Corpuscular Volume 90.4 fL (81-99); Mean Platelet Vol. 10.2 fl (6.2-12.0); Monocyte# 0.92 X10^3/uL; Monocyte% 7.3 % (0-10); NRBC Flagged by Analyzer 0 % (0-5); Neutrophil # 9.11 X10^3/uL (2.7-7.7); Neutrophil % 72.5 % (47-70); Platelet Count 310 K/mm3 (150-450); RBC Distribution Width CV 15.2 % (11.6-14.6); Red Blood Count 3.64 M/mm3 (4.2-5.4); White Blood Count 12.6 K/mm3 (4.4-11.0)
[2022-02-11] MEDS: metroNIDAZOLE 500 MG/100 ML BAG 100 MG IV ×3 (06:21→21:32)
[2022-02-11] MEDS: Vancomycin HCl 250 MG Capsule 500 MG PO ×3 (06:21→17:41)
[2022-02-11] MEDS: Dicyclomine 10 MG Capsule PO ×3 (06:21→16:29)
[2022-02-11 06:40] LABS: Anion Gap 4 (5-15); BUN 3 mg/dL (7-18); BUN/Creat Ratio 4.8 RATIO (10-20); Chloride 112 mmol/L (98-107); Creatinine, Serum 0.63 mg/dL (0.55-1.02); EST Glomerular Filtration Rate 96 mL/min (>60); Est Glom Filt Rate - Afr Amer 117 mL/min (>60); Estimated Creatinine Clearance 34.64 ml/min; Glucose 93 mg/dL (74-106); Potassium 3.9 mmol/L (3.5-5.1); Sodium Level 142 mmol/L (136-145)
--- NOTE | 2022-02-11 07:43 | PCM.PN.HOSP ---
Subjective Subjective Patient seen continues to experience a lot of diarrhea. Patient complains of feeling weak. WBC count is however trending down. Objective Data Objective Data Vital Signs: Vital Signs Temp Pulse Resp BP Pulse Ox 98.1 F 65 18 132/63 H 98 02/11/22 02:48 02/11/22 02:48 02/11/22 02:48 02/11/22 02:48 02/11/22 02:48 Oxygen Delivery Method Room Air Weight: 48.9 kg Body Mass Index (BMI) 18.3 Intake & Output: Intake and Output for Last 24 Hours 02/09/22 02/10/22 02/11/22 23:59 23:59 23:59 Intake Total 2890.0 / 2890.0 3073.75 / 3373.75 600 / 600 Balance 2890.0 / 2890.0 3073.75 / 3373.75 600 / 600 Medical Nutrition Assessment Dietitian: Malnutrition Criteria Met Start: 02/04/22 12:10 Freq: Status: Active Protocol: Document 02/08/22 14:41 JAROD (Rec: 02/08/22 14:41 JAROD [id number]) Nutrition Malnutrition Evidence of Malnutrition Exists Yes Malnutrition (moderate): Acute Illness/Injury Evidenced By Suboptimal Energy Intake ( Moderate),Weight Loss (Severe) ,Physical Changes (Mild) Clinical Problem Acute Disease or Injury Related Malnutrition Etiology moderate, acute malnutrition related to inadequate energy intake with GI dysfunction Signs/Symptoms as evidenced by estimated PO intake meeting <50% of estimated energy needs >5 days ; mild muscle wasting and fat loss in orbital, temporal area ; visible clavicles, acromion process, scapula per physical exam; unintentional wt loss of ~17#/13.6% x 2 months; BMI 18 .4 Status Active Problem Recommendation Dietitian Recommendations/Changes Continue regular diet- with fiber restriction given GI symptoms. Continue to offer 120mL ensure clear 4x/day w/ medpass for additional calories/protein if consumed. Lab / Micro Data Result Diagrams: 02/11/22 05:25 02/11/22 05:25 Labs: Laboratory Results - last 24 hr 02/04/22 20:26: Stool Calprotectin 2837 H 02/11/22 05:25: WBC 12.6 H, RBC 3.64 L, Hgb 10.3 L, Hct 32.9 L, MCV 90.4, MCH 28.3, MCHC 31.3 L, RDW Std Deviation 50.0 H, RDW Coeff of Rhonda 15.2 H, Plt Count 310, MPV 10.2, Immature Gran % (Auto) 0.900, Neut % (Auto) 72.5 H, Lymph % (Auto) 15.1 L, [place] % (Auto) 7.3, Eos % (Auto) 3.7, Baso % (Auto) 0.5, Absolute Neuts (auto) 9.1 H, Absolute Lymphs (auto) 1.90, Nucleated RBC % 0 02/11/22 05:25: Sodium 142, Potassium 3.9, Chloride 112 H, Carbon Dioxide 26.0, Anion Gap 4 L, BUN 3 L, Creatinine 0.63, Estim Creat Clear Calc 34.64, Est GFR (MDRD) Af Amer 117, Est GFR (MDRD) Non-Af 96, BUN/Creatinine Ratio 4.8 L, Glucose 93, Calcium 8.0 L Micro: Microbiology 02/05/22 13:25 Blood Culture (Wb) - Anticubital Right Blood Culture - Final No growth in 5 days. 02/05/22 13:30 Blood Culture (Wb) - Right Hand Blood Culture - Final No growth in 5 days. 02/03/22 19:50 Blood Culture (Wb) - No Site/Description Given Bacteria Detection (PCR) - Final 02/03/22 19:50 Blood Culture (Wb) - No Site/Description Given Blood Culture - Final Presumptive Micrococcus spp. 02/04/22 20:26 Stool C. difficile GDH Antigen & Toxins - Final 02/04/22 20:26 Stool C. difficile DNA Amplification - Final 02/04/22 20:26 Stool Enteric Bacteriology - Final Physical Exam Narrative GENERAL: cooperative HEENT: Atraumatic; EYES; Anicteric, Normal Conjunctiva NECK; supple, normal thyroid, RESPIRATORY: Diminished to auscultation CARDIOVASCULAR: Regular S1 S2, GI: soft, normoactive bowel sounds, : No Renal angle tenderness; EXTREMITIES: No edema, no clubbing, MUSCULOSKELETAL: no muscle wasting NEURO: Awake; no lateralizing signs. SKIN: No Rash PSYCH; Flat affect Assessment & Plan Assessment/Plan (1) Ulcerative colitis: QUALIFIERS: Digestive disease complication type: without complication Ulcerative colitis location: ulcerative pancolitis Qualified Code(s): K51.00 - Ulcerative (chronic) pancolitis without complications (2) C. difficile colitis: PLAN: Patient is an 81-year-old lady with significant past medical history including colon cancer status post colectomy, history of ulcerative colitis who presented with a week history of persistent diarrhea with crampy abdominal pain. Patient was admitted to regular nursing floor for subsequent management. Patient stool assay came back positive for C. difficile. CT of the abdomen obtained on admission findings consistent with diffuse colitis. 1. Acute C. difficile colitis ? Patient is being managed with p.o. vancomycin and IV metronidazole given the extensive nature of her colitis. Patient still has persistent leukocytosis and has diarrhea. Plan is to continue with current therapy 02/09/2022 Patient seen still complains of watery diarrhea. WBC count still remains elevated 02/10/2022een still continues to experience loose bowel movement. She had apparently refused cholestyramine ordered to help with profuse diarrhea. Did encourage patient to take the cholestyramine. WBC count still remains elevated -02/11/2022; Patient seen continues to experience a lot of diarrhea. Patient complains of feeling weak. WBC count is however trending do 2. History of ulcerative colitis ? Acute flareup was ruled out on admission 3. History of colon cancer ? Status post colectomy patient currently in remission 4. Moderate protein calorie malnutrition ? Evidenced by severe weight loss suboptimal energy intake and this is as a result of acute illness. Patient has been seen by dietitian and Ensure clear 4 times a day with meals recommended 5. Transient bacteremia with presumptive micrococcus species ? Thought to be contaminant 6. DVT prophylaxis ? Enoxaparin 7. Hypokalemia ? Corrected per protocol Charges/Coding Visit Charges Inpatient E&M: 13174 Subs Hosp L2
[2022-02-11 09:22] VITALS: BP 123/64; PULSE 60; RESP 18; TEMP 36.9; O2SAT 97
[2022-02-11] MEDS: Potassium Chloride Oral Tablet 20 MEQ PO (09:26)
[2022-02-11] MEDS: Ensure Clear 120 ML Liquid PO ×4 (09:26→21:33)
[2022-02-11] MEDS: Enoxaparin 40 MG/0.4 ML Syringe SC (09:26)
[2022-02-11] MEDS: azaTHIOprine 50 MG Tablet 100 MG PO (09:26)
[2022-02-11 09:27] LABS: CMV Acute Antibody IgM < 30.0 AU/mL (0.0-29.9)
[2022-02-11 14:15] VITALS: BP 132/58; PULSE 60; RESP 18; TEMP 36.7; O2SAT 99
--- NOTE | 2022-02-11 17:52 | PCM.PROGNOTE ---
Subjective Subjective She is doing a lot better. She says she has a normal bowel movement then she has a soft or liquid bowel movement. She says that she can live with this if this is how was going to be. Objective Data Objective Data Vital Signs: Vital Signs Temp Pulse Resp BP Pulse Ox 98.1 F 60 18 132/58 H 99 02/11/22 14:15 02/11/22 14:15 02/11/22 14:15 02/11/22 14:15 02/11/22 14:15 Oxygen Delivery Method Room Air Weight: 107 lb 12.897 oz Body Mass Index (BMI) 18.3 Intake & Output: Intake and Output for Last 24 Hours 02/09/22 02/10/22 02/11/22 23:59 23:59 23:59 Intake Total 2890.0 / 2890.0 3073.75 / 3373.75 1820 / 1820 Balance 2890.0 / 2890.0 3073.75 / 3373.75 1820 / 1820 Medical Nutrition Assessment Dietitian: Malnutrition Criteria Met Start: 02/04/22 12:10 Freq: Status: Active Protocol: Document 02/08/22 14:41 JAROD (Rec: 02/08/22 14:41 [facility] [id number]) Nutrition Malnutrition Evidence of Malnutrition Exists Yes Malnutrition (moderate): Acute Illness/Injury Evidenced By Suboptimal Energy Intake ( Moderate),Weight Loss (Severe) ,Physical Changes (Mild) Clinical Problem Acute Disease or Injury Related Malnutrition Etiology moderate, acute malnutrition related to inadequate energy intake with GI dysfunction Signs/Symptoms as evidenced by estimated PO intake meeting <50% of estimated energy needs >5 days ; mild muscle wasting and fat loss in orbital, temporal area ; visible clavicles, acromion process, scapula per physical exam; unintentional wt loss of ~17#/13.6% x 2 months; BMI 18 .4 Status Active Problem Recommendation Dietitian Recommendations/Changes Continue regular diet- with fiber restriction given GI symptoms. Continue to offer 120mL ensure clear 4x/day w/ medpass for additional calories/protein if consumed. Lab / Micro Data Result Diagrams: 02/11/22 05:25 02/11/22 05:25 Labs: Laboratory Results - last 24 hr 02/07/22 13:30: CMV IgM Ab < 30.0 02/11/22 05:25: WBC 12.6 H, RBC 3.64 L, Hgb 10.3 L, Hct 32.9 L, MCV 90.4, MCH 28.3, MCHC 31.3 L, RDW Std Deviation 50.0 H, RDW Coeff of Rhonda 15.2 H, Plt Count 310, MPV 10.2, Immature Gran % (Auto) 0.900, Neut % (Auto) 72.5 H, Lymph % (Auto) 15.1 L, [place] % (Auto) 7.3, Eos % (Auto) 3.7, Baso % (Auto) 0.5, Absolute Neuts (auto) 9.1 H, Absolute Lymphs (auto) 1.90, Nucleated RBC % 0 02/11/22 05:25: Sodium 142, Potassium 3.9, Chloride 112 H, Carbon Dioxide 26.0, Anion Gap 4 L, BUN 3 L, Creatinine 0.63, Estim Creat Clear Calc 34.64, Est GFR (MDRD) Af Amer 117, Est GFR (MDRD) Non-Af 96, BUN/Creatinine Ratio 4.8 L, Glucose 93, Calcium 8.0 L Micro: Microbiology 02/05/22 13:25 Blood Culture (Wb) - Anticubital Right Blood Culture - Final No growth in 5 days. 02/05/22 13:30 Blood Culture (Wb) - Right Hand Blood Culture - Final No growth in 5 days. 02/03/22 19:50 Blood Culture (Wb) - No Site/Description Given Bacteria Detection (PCR) - Final 02/03/22 19:50 Blood Culture (Wb) - No Site/Description Given Blood Culture - Final Presumptive Micrococcus spp. 02/04/22 20:26 Stool C. difficile GDH Antigen & Toxins - Final 02/04/22 20:26 Stool C. difficile DNA Amplification - Final 02/04/22 20:26 Stool Enteric Bacteriology - Final Physical Exam Const alert General Appearance: cooperative Orientation / Consciousness: oriented to person HEENT hearing grossly normal bilaterally Head and Scalp: normal to inspection Face and Sinus: face symmetric Nose: external nose normal Mouth: oral and palatal mucosa normal Eyes conjunctivae normal General Eye: normal appearance of both eyes Neck full ROM General: normal visual inspection Lymph Lymphatic: no lymphadenopathy noted Chest inspection of chest normal and palpation of chest normal Chest: symmetrical chest wall rise Resp normal respiratory effort Effort and Inspection: able to speak in complete sentences Cardio regular rate GI non-distended Percussion: normal to percussion Rectal Exam: deferred Neuro Speech: speech normal Gait (Neuro): normal gait Assessment & Plan Assessment/Plan (1) C. difficile colitis: PLAN: C. difficile colitis. She is doing very well and a white blood cell count is decreasing. I would recommend that she go home on on vancomycin to complete a 14-day course. (2) Ulcerative colitis: QUALIFIERS: Ulcerative colitis location: ulcerative pancolitis Digestive disease complication type: without complication Qualified Code(s): K51.00 - Ulcerative (chronic) pancolitis without complications PLAN: Manfred was approved for her. I stopped her azathioprine. She can get the [place] as an outpatient. Recommend to send her home on prednisone 40 mg a day.
[2022-02-11 20:15] VITALS: BP 126/55; PULSE 69; RESP 16; TEMP 37; O2SAT 98
[2022-02-12] MEDS: Vancomycin HCl 250 MG Capsule 500 MG PO ×4 (00:13→17:23)
[2022-02-12 02:15] VITALS: BP 108/57; PULSE 69; RESP 16; TEMP 36.8; O2SAT 98
[2022-02-12] MEDS: Ondansetron 4 MG/2 ML Vial IV (04:28)
[2022-02-12 06:04] LABS: Absolute Neutrophil Count 10.8 X10^3/uL (2.0-7.7); Basophil# 0.06 X10^3/uL; Basophil% 0.4 % (0-1); Eosinophil# 0.43 X10^3/uL; Hematocrit 34.8 % (37-47); Hemoglobin 11.1 g/dL (12.0-15.0); Lymphocyte % 15.1 % (19-41); Mean Corp Hgb Conc 31.9 g/dL (32-36); Mean Corpuscular Hgb 28.8 pg (27.0-32.0); Mean Corpuscular Volume 90.4 fL (81-99); Mean Platelet Vol. 10.2 fl (6.2-12.0); Monocyte# 0.95 X10^3/uL; Monocyte% 6.5 % (0-10); NRBC Flagged by Analyzer 0 % (0-5); Neutrophil # 10.81 X10^3/uL (2.7-7.7); Neutrophil % 74.2 % (47-70); Platelet Count 359 K/mm3 (150-450); RBC Distribution Width CV 15.5 % (11.6-14.6); Red Blood Count 3.85 M/mm3 (4.2-5.4); White Blood Count 14.6 K/mm3 (4.4-11.0)
[2022-02-12 06:33] LABS: Anion Gap 5 (5-15); BUN 2 mg/dL (7-18); Calcium,Total 7.9 mg/dL (8.5-10.1); Chloride 110 mmol/L (98-107); Creatinine, Serum 0.66 mg/dL (0.55-1.02); EST Glomerular Filtration Rate 92 mL/min (>60); Est Glom Filt Rate - Afr Amer 111 mL/min (>60); Estimated Creatinine Clearance 34.64 ml/min; Glucose 94 mg/dL (74-106); Potassium 3.8 mmol/L (3.5-5.1); Sodium Level 142 mmol/L (136-145)
[2022-02-12] MEDS: metroNIDAZOLE 500 MG/100 ML BAG 100 MG IV ×3 (06:35→21:19)
[2022-02-12] MEDS: Dicyclomine 10 MG Capsule PO ×3 (06:36→17:24)
--- NOTE | 2022-02-12 07:26 | PCM.PN.HOSP ---
Subjective Subjective Patient seen continues to experience significant diarrhea Objective Data Objective Data Vital Signs: Vital Signs Temp Pulse Resp BP Pulse Ox 98.3 F 69 16 108/57 L 98 02/12/22 02:15 02/12/22 02:15 02/12/22 02:15 02/12/22 02:15 02/12/22 02:15 Oxygen Delivery Method Room Air Weight: 48.9 kg Body Mass Index (BMI) 18.3 Intake & Output: Intake and Output for Last 24 Hours 02/10/22 02/11/22 02/12/22 23:59 23:59 23:59 Intake Total 3073.75 / 3373.75 1919 Balance 3073.75 / 3373.75 1919 Medical Nutrition Assessment Dietitian: Malnutrition Criteria Met Start: 02/04/22 12:10 Freq: Status: Active Protocol: Document 02/08/22 14:41 SLA (Rec: 02/08/22 14:41 SLA [id number]) Nutrition Malnutrition Evidence of Malnutrition Exists Yes Malnutrition (moderate): Acute Illness/Injury Evidenced By Suboptimal Energy Intake ( Moderate),Weight Loss (Severe) ,Physical Changes (Mild) Clinical Problem Acute Disease or Injury Related Malnutrition Etiology moderate, acute malnutrition related to inadequate energy intake with GI dysfunction Signs/Symptoms as evidenced by estimated PO intake meeting <50% of estimated energy needs >5 days ; mild muscle wasting and fat loss in orbital, temporal area ; visible clavicles, acromion process, scapula per physical exam; unintentional wt loss of ~17#/13.6% x 2 months; BMI 18 .4 Status Active Problem Recommendation Dietitian Recommendations/Changes Continue regular diet- with fiber restriction given GI symptoms. Continue to offer 120mL ensure clear 4x/day w/ medpass for additional calories/protein if consumed. Lab / Micro Data Result Diagrams: 02/12/22 05:40 02/12/22 05:40 Labs: Laboratory Results - last 24 hr 02/07/22 13:30: CMV IgM Ab < 30.0 02/12/22 05:40: WBC 14.6 H, RBC 3.85 L, Hgb 11.1 L, Hct 34.8 L, MCV 90.4, MCH 28.8, MCHC 31.9 L, RDW Std Deviation 50.0 H, RDW Coeff of Rhonda 15.5 H, Plt Count 359, MPV 10.2, Immature Gran % (Auto) 0.800, Neut % (Auto) 74.2 H, Lymph % (Auto) 15.1 L, [place] % (Auto) 6.5, Eos % (Auto) 3.0, Baso % (Auto) 0.4, Absolute Neuts (auto) 10.8 H, Absolute Lymphs (auto) 2.20, Nucleated RBC % 0 02/12/22 05:40: Sodium 142, Potassium 3.8, Chloride 110 H, Carbon Dioxide 27.0, Anion Gap 5, BUN 2 L, Creatinine 0.66, Estim Creat Clear Calc 34.64, Est GFR (MDRD) Af Amer 111, Est GFR (MDRD) Non-Af 92, BUN/Creatinine Ratio 3.0 L, Glucose 94, Calcium 7.9 L Micro: Microbiology 02/05/22 13:25 Blood Culture (Wb) - Anticubital Right Blood Culture - Final No growth in 5 days. 02/05/22 13:30 Blood Culture (Wb) - Right Hand Blood Culture - Final No growth in 5 days. 02/03/22 19:50 Blood Culture (Wb) - No Site/Description Given Bacteria Detection (PCR) - Final 02/03/22 19:50 Blood Culture (Wb) - No Site/Description Given Blood Culture - Final Presumptive Micrococcus spp. 02/04/22 20:26 Stool C. difficile GDH Antigen & Toxins - Final 02/04/22 20:26 Stool C. difficile DNA Amplification - Final 02/04/22 20:26 Stool Enteric Bacteriology - Final Physical Exam Narrative GENERAL: cooperative HEENT: Atraumatic; EYES; Anicteric, Normal Conjunctiva NECK; supple, normal thyroid, RESPIRATORY: Diminished to auscultation CARDIOVASCULAR: Regular S1 S2, GI: soft, normoactive bowel sounds, : No Renal angle tenderness; EXTREMITIES: No edema, no clubbing, MUSCULOSKELETAL: no muscle wasting NEURO: Awake; no lateralizing signs. SKIN: No Rash PSYCH; Flat affect Assessment & Plan Assessment/Plan (1) Ulcerative colitis: QUALIFIERS: Digestive disease complication type: without complication Ulcerative colitis location: ulcerative pancolitis Qualified Code(s): K51.00 - Ulcerative (chronic) pancolitis without complications (2) C. difficile colitis: PLAN: Patient is an 81-year-old lady with significant past medical history including colon cancer status post colectomy, history of ulcerative colitis who presented with a week history of persistent diarrhea with crampy abdominal pain. Patient was admitted to regular nursing floor for subsequent management. Patient stool assay came back positive for C. difficile. CT of the abdomen obtained on admission findings consistent with diffuse colitis. 1. Acute C. difficile colitis ? Patient is being managed with p.o. vancomycin and IV metronidazole given the extensive nature of her colitis. Patient still has persistent leukocytosis and has diarrhea. Plan is to continue with current therapy 02/09/2022 Patient seen still complains of watery diarrhea. WBC count still remains elevated 02/10/2022een still continues to experience loose bowel movement. She had apparently refused cholestyramine ordered to help with profuse diarrhea. Did encourage patient to take the cholestyramine. WBC count still remains elevated -02/11/2022; Patient seen continues to experience a lot of diarrhea. Patient complains of feeling weak. WBC count is however trending do 02/12/2022atient seen continues to experience significant diarrhea. Patient remains on vancomycin in addition to fiber and cholestyramine 2. History of ulcerative colitis ? Acute flareup was ruled out on admission 3. History of colon cancer ? Status post colectomy patient currently in remission 4. Moderate protein calorie malnutrition ? Evidenced by severe weight loss suboptimal energy intake and this is as a result of acute illness. Patient has been seen by dietitian and Ensure clear 4 times a day with meals recommended 5. Transient bacteremia with presumptive micrococcus species ? Thought to be contaminant 6. DVT prophylaxis ? Enoxaparin 7. Hypokalemia ? Corrected per protocol Charges/Coding Visit Charges Inpatient E&M: 32438 Subs Hosp L2
--- NOTE | 2022-02-12 07:30 | PCM.PROGNOTE ---
Subjective Subjective Patient states she cannot get warm. She was feeling a lot better yesterday and today she says that she is not feeling very well. She complains of fatigue and weakness. Her appetite is poor. She denies any abdominal pain and is having semiformed stools. She does complain of some nausea. She denies any chest pain or shortness of breath. She says she feels like she can pass out at times. She denies any dysuria. Objective Data Objective Data Vital Signs: Vital Signs Temp Pulse Resp BP Pulse Ox 98.3 F 69 16 108/57 L 98 02/12/22 02:15 02/12/22 02:15 02/12/22 02:15 02/12/22 02:15 02/12/22 02:15 Oxygen Delivery Method Room Air Weight: 107 lb 12.897 oz Body Mass Index (BMI) 18.3 Intake & Output: Intake and Output for Last 24 Hours 02/10/22 02/11/22 02/12/22 23:59 23:59 23:59 Intake Total 3073.75 / 3373.75 1919 Balance 3073.75 / 3373.75 1919 Medical Nutrition Assessment Dietitian: Malnutrition Criteria Met Start: 02/04/22 12:10 Freq: Status: Active Protocol: Document 02/08/22 14:41 JAROD (Rec: 02/08/22 14:41 JAROD [id number]) Nutrition Malnutrition Evidence of Malnutrition Exists Yes Malnutrition (moderate): Acute Illness/Injury Evidenced By Suboptimal Energy Intake ( Moderate),Weight Loss (Severe) ,Physical Changes (Mild) Clinical Problem Acute Disease or Injury Related Malnutrition Etiology moderate, acute malnutrition related to inadequate energy intake with GI dysfunction Signs/Symptoms as evidenced by estimated PO intake meeting <50% of estimated energy needs >5 days ; mild muscle wasting and fat loss in orbital, temporal area ; visible clavicles, acromion process, scapula per physical exam; unintentional wt loss of ~17#/13.6% x 2 months; BMI 18 .4 Status Active Problem Recommendation Dietitian Recommendations/Changes Continue regular diet- with fiber restriction given GI symptoms. Continue to offer 120mL ensure clear 4x/day w/ medpass for additional calories/protein if consumed. Lab / Micro Data Result Diagrams: 02/12/22 05:40 02/12/22 05:40 Labs: Laboratory Results - last 24 hr 02/07/22 13:30: CMV IgM Ab < 30.0 02/12/22 05:40: WBC 14.6 H, RBC 3.85 L, Hgb 11.1 L, Hct 34.8 L, MCV 90.4, MCH 28.8, MCHC 31.9 L, RDW Std Deviation 50.0 H, RDW Coeff of Rhonda 15.5 H, Plt Count 359, MPV 10.2, Immature Gran % (Auto) 0.800, Neut % (Auto) 74.2 H, Lymph % (Auto) 15.1 L, [place] % (Auto) 6.5, Eos % (Auto) 3.0, Baso % (Auto) 0.4, Absolute Neuts (auto) 10.8 H, Absolute Lymphs (auto) 2.20, Nucleated RBC % 0 02/12/22 05:40: Sodium 142, Potassium 3.8, Chloride 110 H, Carbon Dioxide 27.0, Anion Gap 5, BUN 2 L, Creatinine 0.66, Estim Creat Clear Calc 34.64, Est GFR (MDRD) Af Amer 111, Est GFR (MDRD) Non-Af 92, BUN/Creatinine Ratio 3.0 L, Glucose 94, Calcium 7.9 L Micro: Microbiology 02/05/22 13:25 Blood Culture (Wb) - Anticubital Right Blood Culture - Final No growth in 5 days. 02/05/22 13:30 Blood Culture (Wb) - Right Hand Blood Culture - Final No growth in 5 days. 02/03/22 19:50 Blood Culture (Wb) - No Site/Description Given Bacteria Detection (PCR) - Final 02/03/22 19:50 Blood Culture (Wb) - No Site/Description Given Blood Culture - Final Presumptive Micrococcus spp. 02/04/22 20:26 Stool C. difficile GDH Antigen & Toxins - Final 02/04/22 20:26 Stool C. difficile DNA Amplification - Final 02/04/22 20:26 Stool Enteric Bacteriology - Final Physical Exam Const alert General Appearance: cooperative Orientation / Consciousness: oriented to person HEENT hearing grossly normal bilaterally Head and Scalp: normal to inspection Face and Sinus: face symmetric Nose: external nose normal Mouth: oral and palatal mucosa normal Eyes conjunctivae normal General Eye: normal appearance of both eyes Neck full ROM General: normal visual inspection Lymph Lymphatic: no lymphadenopathy noted Chest inspection of chest normal and palpation of chest normal Chest: symmetrical chest wall rise Resp normal respiratory effort Effort and Inspection: able to speak in complete sentences Cardio regular rate GI non-distended Percussion: normal to percussion Rectal Exam: deferred Neuro Speech: speech normal Gait (Neuro): normal gait Assessment & Plan Assessment/Plan (1) C. difficile colitis: PLAN: At this time she has not shown any signs of active C. difficile colitis. She is not having multiple stools. She denies any tenesmus or lower GI bleeding. She is having semiformed stools. Fiber has been administered along with cholestyramine. Continue current medication regimen with vancomycin and I will stop metronidazole. Her temperature at the bedside was 98.3. (2) Ulcerative colitis: QUALIFIERS: Ulcerative colitis location: ulcerative pancolitis Digestive disease complication type: without complication Qualified Code(s): K51.00 - Ulcerative (chronic) pancolitis without complications PLAN: I will check a random cortisol, ESR, CRP, LDH. I may give her steroids since she has not been on them since admission as it could be a reason why she is experiencing problems with hot and cold at this time due to mild adrenal insufficiency. I will also check a urinalysis. Charges/Coding Visit Charges Inpatient E&M: 79841 Subs Hosp L2
[2022-02-12] MEDS: KCL 20MEQ in 0.9% NS 20 MEQ/1,000 ML IV.SOLN. 75 MEQ IV (07:50)
[2022-02-12 07:59] VITALS: BP 124/53; PULSE 62; RESP 18; TEMP 37; O2SAT 98
[2022-02-12 08:15] LABS: CPK Total, Creatine Kinase 19 U/L (26-192); LDH 170 U/L (84-246)
[2022-02-12 08:23] LABS: Erythrocyte Sedimentation Rate 56 mm/hr (0-30)
--- NOTE | 2022-02-12 09:00 | RAD_ITS ---
STUDY: X-RAY CHEST REASON FOR EXAM: Female, 81 years old. Subjective fevers TECHNIQUE: Single AP portable view of the chest. COMPARISON: Comparison is made with prior examination dated 02/03/2022. FINDINGS: There now is evidence of increased markings at the left lung base suggestive of small left lobe infiltrate with blunting of the left costophrenic angle. Normal size heart. Normal mediastinum and stephanie. Normal visualized pulmonary arteries. There is atherosclerotic calcification of the aortic arch with tortuosity. There are diffuse degenerative changes of the visualized thoracic spine. Normal visualized ribs, clavicles, and shoulders. There is no demonstrated abnormality of the visualized soft tissue structures of the upper abdomen. RAD/Chest 1 View (Portable) IMPRESSION: Increased markings are seen at the left lung base suggestive of left basilar infiltrate with blunting of left costophrenic angle. Electronically Signed: Ja Bailey MD at 12:54 EDT ,
[2022-02-12] MEDS: Ensure Clear 120 ML Liquid PO ×4 (09:05→21:19)
[2022-02-12] MEDS: Enoxaparin 40 MG/0.4 ML Syringe SC (09:06)
--- NOTE | 2022-02-12 10:28 | CASEMGMT ---
Addendum entered by Binta Lopez 02/12/22 14:23: [facility] follow the [facility] until after pt appt on 02/17/22. Original Note: Updated HHC that pt may be here through . Will plan for SOC on Tuesday and add SN. HHC able to accommodate this.
[2022-02-12 11:55] LABS: Bacteria 0 SEEN /hpf (None Seen); Mucous, Urine 0 SEEN /hpf (<or=2+); Red Blood Cells-Urine 0 SEEN /hpf (0-5); Squamous Epithelial Cells - UA 0 SEEN /hpf (5-10); White Blood Cells 0 SEEN /hpf (0-5)
[2022-02-12 12:31] LABS: Color, Urine Straw (Yellow); Glucose, Dipstick Normal (Normal); Ketone-Dipstick Negative (Negative); Leukocyte Esterase-Dipstick Negative /ul (Negative); Nitrite-Dipstick Negative (Negative); Occult Blood-Urine Negative /ul (Negative); Protein-Dipstick Negative (Negative); Urine Bilirubin Dipstick Negative (Negative); Urine Clarity Clear (Clear); Urine Urobilinogen Normal (Normal)
[2022-02-12 13:54] VITALS: O2SAT 98
[2022-02-12 14:55] VITALS: BP 122/49; PULSE 90; RESP 18; TEMP 37.1; O2SAT 97
[2022-02-12] MEDS: 0.9% Saline Lock 10 ML Syringe IV (18:34)
[2022-02-12] MEDS: MethylPREDNISolone 125 MG/2 ML Vial 60 MG IV (18:34)
[2022-02-12 21:10] VITALS: BP 118/50; PULSE 76; RESP 16; TEMP 37.1; O2SAT 95
[2022-02-13] MEDS: Vancomycin HCl 250 MG Capsule 500 MG PO ×2 (00:15→06:36)
[2022-02-13] MEDS: KCL 20MEQ in 0.9% NS 20 MEQ/1,000 ML IV.SOLN. 75 MEQ IV (00:54)
[2022-02-13 02:30] VITALS: BP 128/68; PULSE 57; RESP 14; TEMP 36.6; O2SAT 97
[2022-02-13] MEDS: MethylPREDNISolone 125 MG/2 ML Vial 60 MG IV (06:29)
[2022-02-13] MEDS: metroNIDAZOLE 500 MG/100 ML BAG 100 MG IV (06:35)
[2022-02-13] MEDS: 0.9% Saline Lock 10 ML Syringe IV ×2 (06:35→11:28)
[2022-02-13] MEDS: Dicyclomine 10 MG Capsule PO ×2 (06:36→11:27)
[2022-02-13 07:08] VITALS: O2SAT 95
--- NOTE | 2022-02-13 09:10 | PCM.DC.SUM ---
Providers Date of Admission: 02/03/22 Primary Care Physician: IDALMIS Hollis Consultations 02/03/22 23:24 Consult: Gastroenterology Routine Consulting Provider: Jared Draper Reason for Consult: Flare of ulcerative colitis EMERGENT Consult: No MD Notified: Yes Date Notified: 02/04/22 Time Notified: 06:37 Method of Notification: Text Reason For Visit: ACUTE EXACERBATION OF ULCERATIVE Diagnosis Discharge Diagnosis (1) Ulcerative colitis: Status: Acute Code(s): K51.90 - Ulcerative colitis, unspecified, without complications Qualifiers: Digestive disease complication type: without complication Ulcerative colitis location: ulcerative pancolitis Qualified Code(s): K51.00 - Ulcerative (chronic) pancolitis without complications (2) C. difficile colitis: Status: Acute Code(s): A04.72 - Enterocolitis due to Clostridium difficile, not specified as recurrent Medications at Discharge Home Medications dicyclomine 20 mg tablet 20 mg PO TID PRN #30 tab 02/03/22 calcium polycarbophil [Fiber (calcium polycarbophil)] 1,250 mg PO TID 14 Days #84 tab 02/13/22 cholestyramine (with sugar) 4 g PO DAILY@0700 14 Days #14 ea 02/13/22 dicyclomine 10 mg PO TIDAC 10 Days #30 cap 02/13/22 diphenoxylate-atropine 2 tab PO BID PRN #20 tab 02/13/22 potassium chloride [Klor-Con M20] 20 meq PO BIDCM 30 Days #60 tab 02/13/22 vancomycin 125 mg PO UD 20 Days #60 cap 02/13/22 Hospital Course Summary of Care Provided Minutes Spent on Discharge: 35 Hospital Course: Patient is an 81-year-old lady with significant past medical history including colon cancer status post colectomy, history of ulcerative colitis who presented with a week history of persistent diarrhea with crampy abdominal pain. Patient was admitted to regular nursing floor for subsequent management. Patient stool assay came back positive for C. difficile. CT of the abdomen obtained on admission findings consistent with diffuse colitis. 1. Acute C. difficile colitis ? Patient is being managed with p.o. vancomycin and IV metronidazole given the extensive nature of her colitis. Patient still has persistent leukocytosis and has diarrhea. Plan is to continue with current therapy 02/09/2022 Patient seen still complains of watery diarrhea. WBC count still remains elevated 02/10/2022een still continues to experience loose bowel movement. She had apparently refused cholestyramine ordered to help with profuse diarrhea. Did encourage patient to take the cholestyramine. WBC count still remains elevated -02/11/2022; Patient seen continues to experience a lot of diarrhea. Patient complains of feeling weak. WBC count is however trending do 02/12/2022atient seen continues to experience significant diarrhea. Patient remains on vancomycin in addition to fiber and cholestyramine 2. History of ulcerative colitis ? Acute flareup was ruled out on admission -Was on azathioprine as outpatient this is being discontinued with plans for patient to start Stelara to be initiated by GI as outpatient 3. History of colon cancer ? Status post colectomy patient currently in remission 4. Moderate protein calorie malnutrition ? Evidenced by severe weight loss suboptimal energy intake and this is as a result of acute illness. Patient has been seen by dietitian and Ensure clear 4 times a day with meals recommended 5. Transient bacteremia with presumptive micrococcus species ? Thought to be contaminant 6. DVT prophylaxis ? Enoxaparin 7. Hypokalemia ? Corrected per protocol Physical Exam Narrative GENERAL: cooperative HEENT: Atraumatic; EYES; Anicteric, Normal Conjunctiva NECK; supple, normal thyroid, RESPIRATORY: Diminished to auscultation CARDIOVASCULAR: Regular S1 S2, GI: soft, normoactive bowel sounds, : No Renal angle tenderness; EXTREMITIES: No edema, no clubbing, MUSCULOSKELETAL: no muscle wasting NEURO: Awake; no lateralizing signs. SKIN: No Rash PSYCH; Flat affect Medical Records Data Medical Nutrition Assessment Dietitian: Malnutrition Criteria Met Start: 02/04/22 12:10 Freq: Status: Active Protocol: Document 02/08/22 14:41 [facility] (Rec: 02/08/22 14:41 [facility] [id number]) Nutrition Malnutrition Evidence of Malnutrition Exists Yes Malnutrition (moderate): Acute Illness/Injury Evidenced By Suboptimal Energy Intake ( Moderate),Weight Loss (Severe) ,Physical Changes (Mild) Clinical Problem Acute Disease or Injury Related Malnutrition Etiology moderate, acute malnutrition related to inadequate energy intake with GI dysfunction Signs/Symptoms as evidenced by estimated PO intake meeting <50% of estimated energy needs >5 days ; mild muscle wasting and fat loss in orbital, temporal area ; visible clavicles, acromion process, scapula per physical exam; unintentional wt loss of ~17#/13.6% x 2 months; BMI 18 .4 Status Active Problem Recommendation Dietitian Recommendations/Changes Continue regular diet- with fiber restriction given GI symptoms. Continue to offer 120mL ensure clear 4x/day w/ medpass for additional calories/protein if consumed. Weight / BMI Weight Weight: 48.9 kg Body Mass Index (BMI) 18.3 ABG / Lab / Microbiology Data Result Diagrams: 02/12/22 05:40 02/12/22 05:40 Laboratory: Laboratory Results - last 24 hr 02/12/22 08:42: Cortisol 16.60 02/12/22 11:45: Urine Color Straw, Urine Clarity Clear, Urine pH 7.0, Ur Specific [place] 1.010, Urine Protein Negative, Urine Glucose (UA) Normal, Urine Ketones Negative, Urine Occult Blood Negative, Urine Nitrite Negative, Urine Bilirubin Negative, Urine Urobilinogen Normal, Ur Leukocyte Esterase Negative, Urine RBC 0 SEEN, Urine WBC 0 SEEN, Ur Squamous Epith Cells 0 SEEN, Urine Bacteria 0 SEEN, Urine Mucus 0 SEEN Microbiology: Microbiology 02/12/22 07:40 Nasal Secretion SARS-CoV-2 Antigen (Rapid) - Final 02/05/22 13:25 Blood Culture (Wb) - Anticubital Right Blood Culture - Final No growth in 5 days. 02/05/22 13:30 Blood Culture (Wb) - Right Hand Blood Culture - Final No growth in 5 days. 02/03/22 19:50 Blood Culture (Wb) - No Site/Description Given Bacteria Detection (PCR) - Final 02/03/22 19:50 Blood Culture (Wb) - No Site/Description Given Blood Culture - Final Presumptive Micrococcus spp. 02/04/22 20:26 Stool C. difficile GDH Antigen & Toxins - Final 02/04/22 20:26 Stool C. difficile DNA Amplification - Final 02/04/22 20:26 Stool Enteric Bacteriology - Final Radiography Diagnostic Testing: Radiology Impression Chest X-Ray 02/12/22 09:00 IMPRESSION: Increased markings are seen at the left lung base suggestive of left basilar infiltrate with blunting of left costophrenic angle. Electronically Signed: Ja Bailey MD at 12:54 EDT , D/C Instructions Discharge Diet: No restrictions Discharge Activity: Return to Normal Activity Call your doctor if you observe: Fever of 101 or Higher, Shortness of breath, Fainting spells and Chest pain Meaningful Use Info Meaningful Use Diagnoses (Choose all that apply): None applicable Discharge Plan Admission Admit Date/Time: 02/03/22 22:08 Attending Provider: Clifton Evans Primary Care Provider: Varinder Phoenix NP Consulting Providers: Jared Draper Discharge Orders/Prescriptions Prescriptions: New potassium chloride [Klor-Con M20] 20 mEq Tablet,Er Particles/Crystals 20 meq PO BIDCM 30 Days Qty: 60 RF: 0 calcium polycarbophil [Fiber (calcium polycarbophil)] 625 mg Tablet 1,250 mg PO TID 14 Days Qty: 84 RF: 0 cholestyramine (with sugar) 4 gram Powder In Packet 4 g PO DAILY@0700 14 Days Qty: 14 RF: 0 vancomycin 125 mg capsule 125 mg PO UD 20 Days Qty: 60 RF: 0 diphenoxylate-atropine 2.5-0.025 mg Tablet 2 tab PO BID PRN Qty: 20 RF: 0 dicyclomine 10 mg Capsule 10 mg PO TIDAC 10 Days Qty: 30 RF: 0 Continued dicyclomine 20 mg tablet 20 mg PO TID PRN (Reason: cramps) Qty: 30 RF: 1 Discontinued azathioprine 50 mg tablet 100 mg PO DAILY RF: 0 colestipol 1 gram tablet 1 g PO BID RF: 0 colestipol [Colestid] 1 gram tablet 2 g PO DAILY RF: 0 Referrals / Follow Up: Jared Draper DO [STAFF PHYSICIAN] - Within 1 Week Varinder Phoenix NP, JULI[facility] [Primary Care Provider] - Within 1 Week Disposition Disposition (needs filled in before D/C Order can be placed): Home Health Service
--- NOTE | 2022-02-13 09:16 | PN_ITS ---
Subjective Subjective Patient states that she feels about the same. She says that she wants to see her granddaughter. She still experiencing hot and cold issues. Objective Data Objective Data Vital Signs: Vital Signs Temp Pulse Resp BP Pulse Ox 97.9 F 57 L 14 128/68 H 95 02/13/22 02:30 02/13/22 02:30 02/13/22 02:30 02/13/22 02:30 02/13/22 07:08 Oxygen Delivery Method Room Air Weight: 107 lb 12.897 oz Body Mass Index (BMI) 18.3 Intake & Output: Intake and Output for Last 24 Hours 02/11/22 02/12/22 02/13/22 23:59 23:59 23:59 Intake Total 1919 Balance 1919 Medical Nutrition Assessment Dietitian: Malnutrition Criteria Met Start: 02/04/22 12:10 Freq: Status: Active Protocol: Document 02/08/22 14:41 [facility] (Rec: 02/08/22 14:41 [facility] [id number]) Nutrition Malnutrition Evidence of Malnutrition Exists Yes Malnutrition (moderate): Acute Illness/Injury Evidenced By Suboptimal Energy Intake ( Moderate),Weight Loss (Severe) ,Physical Changes (Mild) Clinical Problem Acute Disease or Injury Related Malnutrition Etiology moderate, acute malnutrition related to inadequate energy intake with GI dysfunction Signs/Symptoms as evidenced by estimated PO intake meeting <50% of estimated energy needs >5 days ; mild muscle wasting and fat loss in orbital, temporal area ; visible clavicles, acromion process, scapula per physical exam; unintentional wt loss of ~17#/13.6% x 2 months; BMI 18 .4 Status Active Problem Recommendation Dietitian Recommendations/Changes Continue regular diet- with fiber restriction given GI symptoms. Continue to offer 120mL ensure clear 4x/day w/ medpass for additional calories/protein if consumed. Lab / Micro Data Result Diagrams: 02/12/22 05:40 02/12/22 05:40 Labs: Laboratory Results - last 24 hr 02/12/22 08:42: Cortisol 16.60 02/12/22 11:45: Urine Color Straw, Urine Clarity Clear, Urine pH 7.0, Ur Specific [place] 1.010, Urine Protein Negative, Urine Glucose (UA) Normal, Urine Ketones Negative, Urine Occult Blood Negative, Urine Nitrite Negative, Urine Bilirubin Negative, Urine Urobilinogen Normal, Ur Leukocyte Esterase Negative, Urine RBC 0 SEEN, Urine WBC 0 SEEN, Ur Squamous Epith Cells 0 SEEN, Urine Bacteria 0 SEEN, Urine Mucus 0 SEEN Micro: Microbiology 02/12/22 07:40 Nasal Secretion SARS-CoV-2 Antigen (Rapid) - Final 02/05/22 13:25 Blood Culture (Wb) - Anticubital Right Blood Culture - Final No growth in 5 days. 02/05/22 13:30 Blood Culture (Wb) - Right Hand Blood Culture - Final No growth in 5 days. 02/03/22 19:50 Blood Culture (Wb) - No Site/Description Given Bacteria Detection (PCR) - Final 02/03/22 19:50 Blood Culture (Wb) - No Site/Description Given Blood Culture - Final Presumptive Micrococcus spp. 02/04/22 20:26 Stool C. difficile GDH Antigen & Toxins - Final 02/04/22 20:26 Stool C. difficile DNA Amplification - Final 02/04/22 20:26 Stool Enteric Bacteriology - Final Radiography Diagnostic Testing: Radiology Impression Chest X-Ray 02/12/22 09:00 IMPRESSION: Increased markings are seen at the left lung base suggestive of left basilar infiltrate with blunting of left costophrenic angle. Electronically Signed: Ja Bailey MD at 12:54 EDT , Physical Exam Const alert General Appearance: cooperative Orientation / Consciousness: oriented to person HEENT hearing grossly normal bilaterally Head and Scalp: normal to inspection Face and Sinus: face symmetric Nose: external nose normal Mouth: oral and palatal mucosa normal Eyes conjunctivae normal General Eye: normal appearance of both eyes Neck full ROM General: normal visual inspection Lymph Lymphatic: no lymphadenopathy noted Chest inspection of chest normal and palpation of chest normal Chest: symmetrical chest wall rise Resp normal respiratory effort Effort and Inspection: able to speak in complete sentences Cardio regular rate GI non-distended Percussion: normal to percussion Rectal Exam: deferred Neuro Speech: speech normal Gait (Neuro): normal gait Assessment & Plan Assessment/Plan (1) C. difficile colitis: PLAN: She is still on vancomycin therapy. Her white blood cell count is going up and down. I checked her inflammatory markers and they were elevated. Her CRP and ESR are elevated possibly secondary to see this colitis versus ulcerative colitis. She is having diarrhea which is more consistent with C. difficile colitis rather than lower GI bleeding which would be more consistent with ulcerative colitis. Her immature white blood cells are decreasing which is a good sign. 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 difficile colitis. Recommend to continue vancomycin therapy. (2) Ulcerative colitis: QUALIFIERS: Ulcerative colitis location: ulcerative pancolitis Digestive disease complication type: without complication Qualified Code(s): K51.00 - Ulcerative (chronic) pancolitis without complications PLAN: I stopped her azathioprine and started on steroids yesterday because she was experiencing hot and cold symptoms without fevers. I checked her cortisol and it was within normal limits so she is not having any signs of adrenal insufficiency. There are studies that show that she can give steroids in the setting of C. difficile for patients that have inflammatory bowel disease and cannot undergo significant immunosuppression such as anti-TNF medicines. I will have to discuss with the patient and the family regarding the safety of giving it an anti-TNF medicine such as Stelara in the hospital. I would like approval by infectious disease prior to giving her immunosuppression because it is likely that the azathioprine is not completely washed out of her system. Charges/Coding Visit Charges Inpatient E&M: 08812 Subs Hosp L3
[2022-02-13 09:18] VITALS: BP 126/57; PULSE 66; RESP 16; TEMP 36.9; O2SAT 97
[2022-02-13] MEDS: Enoxaparin 40 MG/0.4 ML Syringe SC (09:24)
[2022-02-13] MEDS: Ensure Clear 120 ML Liquid PO (09:24)
--- NOTE | 2022-02-13 10:15 | PCM.PN.HOSP ---
Subjective Subjective Patient seen. Finally admitted to not having any loose bowel movement the day prior. Patient was started on systemic steroids by GI Dr. Draper with plans to start patient on Stelara in the hospital pending approval from infectious disease Objective Data Objective Data Vital Signs: Vital Signs Temp Pulse Resp BP Pulse Ox 98.4 F 66 16 126/57 H 97 02/13/22 09:18 02/13/22 09:18 02/13/22 09:18 02/13/22 09:18 02/13/22 09:18 Oxygen Delivery Method Room Air Weight: 48.9 kg Body Mass Index (BMI) 18.3 Intake & Output: Intake and Output for Last 24 Hours 02/11/22 02/12/22 02/13/22 23:59 23:59 23:59 Intake Total 1919 Balance 1919 Medical Nutrition Assessment Dietitian: Malnutrition Criteria Met Start: 02/04/22 12:10 Freq: Status: Active Protocol: Document 02/08/22 14:41 [facility] (Rec: 02/08/22 14:41 [facility] [id number]) Nutrition Malnutrition Evidence of Malnutrition Exists Yes Malnutrition (moderate): Acute Illness/Injury Evidenced By Suboptimal Energy Intake ( Moderate),Weight Loss (Severe) ,Physical Changes (Mild) Clinical Problem Acute Disease or Injury Related Malnutrition Etiology moderate, acute malnutrition related to inadequate energy intake with GI dysfunction Signs/Symptoms as evidenced by estimated PO intake meeting <50% of estimated energy needs >5 days ; mild muscle wasting and fat loss in orbital, temporal area ; visible clavicles, acromion process, scapula per physical exam; unintentional wt loss of ~17#/13.6% x 2 months; BMI 18 .4 Status Active Problem Recommendation Dietitian Recommendations/Changes Continue regular diet- with fiber restriction given GI symptoms. Continue to offer 120mL ensure clear 4x/day w/ medpass for additional calories/protein if consumed. Lab / Micro Data Result Diagrams: 02/12/22 05:40 02/12/22 05:40 Labs: Laboratory Results - last 24 hr 02/12/22 11:45: Urine Color Straw, Urine Clarity Clear, Urine pH 7.0, Ur Specific [place] 1.010, Urine Protein Negative, Urine Glucose (UA) Normal, Urine Ketones Negative, Urine Occult Blood Negative, Urine Nitrite Negative, Urine Bilirubin Negative, Urine Urobilinogen Normal, Ur Leukocyte Esterase Negative, Urine RBC 0 SEEN, Urine WBC 0 SEEN, Ur Squamous Epith Cells 0 SEEN, Urine Bacteria 0 SEEN, Urine Mucus 0 SEEN Micro: Microbiology 02/12/22 07:40 Nasal Secretion SARS-CoV-2 Antigen (Rapid) - Final 02/05/22 13:25 Blood Culture (Wb) - Anticubital Right Blood Culture - Final No growth in 5 days. 02/05/22 13:30 Blood Culture (Wb) - Right Hand Blood Culture - Final No growth in 5 days. 02/03/22 19:50 Blood Culture (Wb) - No Site/Description Given Bacteria Detection (PCR) - Final 02/03/22 19:50 Blood Culture (Wb) - No Site/Description Given Blood Culture - Final Presumptive Micrococcus spp. 02/04/22 20:26 Stool C. difficile GDH Antigen & Toxins - Final 02/04/22 20:26 Stool C. difficile DNA Amplification - Final 02/04/22 20:26 Stool Enteric Bacteriology - Final Radiography Diagnostic Testing: Radiology Impression Chest X-Ray 02/12/22 09:00 IMPRESSION: Increased markings are seen at the left lung base suggestive of left basilar infiltrate with blunting of left costophrenic angle. Electronically Signed: Ja Bailey MD at 12:54 EDT , Physical Exam Narrative GENERAL: cooperative HEENT: Atraumatic; EYES; Anicteric, Normal Conjunctiva NECK; supple, normal thyroid, RESPIRATORY: Diminished to auscultation CARDIOVASCULAR: Regular S1 S2, GI: soft, normoactive bowel sounds, : No Renal angle tenderness; EXTREMITIES: No edema, no clubbing, MUSCULOSKELETAL: no muscle wasting NEURO: Awake; no lateralizing signs. SKIN: No Rash PSYCH; Flat affect Assessment & Plan Assessment/Plan (1) Ulcerative colitis: QUALIFIERS: Ulcerative colitis location: ulcerative pancolitis Digestive disease complication type: without complication Qualified Code(s): K51.00 - Ulcerative (chronic) pancolitis without complications (2) C. difficile colitis: PLAN: Patient is an 81-year-old lady with significant past medical history including colon cancer status post colectomy, history of ulcerative colitis who presented with a week history of persistent diarrhea with crampy abdominal pain. Patient was admitted to regular nursing floor for subsequent management. Patient stool assay came back positive for C. difficile. CT of the abdomen obtained on admission findings consistent with diffuse colitis. 1. Acute C. difficile colitis ? Patient is being managed with p.o. vancomycin and IV metronidazole given the extensive nature of her colitis. Patient still has persistent leukocytosis and has diarrhea. Plan is to continue with current therapy 02/09/2022 Patient seen still complains of watery diarrhea. WBC count still remains elevated 02/10/2022een still continues to experience loose bowel movement. She had apparently refused cholestyramine ordered to help with profuse diarrhea. Did encourage patient to take the cholestyramine. WBC count still remains elevated -02/11/2022; Patient seen continues to experience a lot of diarrhea. Patient complains of feeling weak. WBC count is however trending do 02/12/2022atient seen continues to experience significant diarrhea. Patient remains on vancomycin in addition to fiber and cholestyramine -02/13/2022; patient was started on systemic steroids by GI DrGigi Draper with plans to start patient on Stelara in the hospital pending approval from infectious disease 2. History of ulcerative colitis ? Acute flareup was ruled out on admission 3. History of colon cancer ? Status post colectomy patient currently in remission 4. Moderate protein calorie malnutrition ? Evidenced by severe weight loss suboptimal energy intake and this is as a result of acute illness. Patient has been seen by dietitian and Ensure clear 4 times a day with meals recommended 5. Transient bacteremia with presumptive micrococcus species ? Thought to be contaminant 6. DVT prophylaxis ? Enoxaparin 7. Hypokalemia ? Corrected per protocol
--- NOTE | 2022-02-13 10:55 | PCM.DC.SUM ---
Providers Date of Admission: 02/03/22 Primary Care Physician: IDALMIS Hollis Consultations 02/03/22 23:24 Consult: Gastroenterology Routine Consulting Provider: Jared Draper Reason for Consult: Flare of ulcerative colitis EMERGENT Consult: No MD Notified: Yes Date Notified: 02/04/22 Time Notified: 06:37 Method of Notification: Text Reason For Visit: ACUTE EXACERBATION OF ULCERATIVE Diagnosis Discharge Diagnosis (1) Ulcerative colitis: Status: Acute Code(s): K51.90 - Ulcerative colitis, unspecified, without complications Qualifiers: Ulcerative colitis location: ulcerative pancolitis Digestive disease complication type: without complication Qualified Code(s): K51.00 - Ulcerative (chronic) pancolitis without complications (2) C. difficile colitis: Status: Acute Code(s): A04.72 - Enterocolitis due to Clostridium difficile, not specified as recurrent Medications at Discharge Home Medications dicyclomine 20 mg tablet 20 mg PO TID PRN #30 tab 02/03/22 calcium polycarbophil [Fiber (calcium polycarbophil)] 1,250 mg PO TID 14 Days #84 tab 02/13/22 cholestyramine (with sugar) 4 g PO DAILY@0700 14 Days #14 ea 02/13/22 dicyclomine 10 mg PO TIDAC 10 Days #30 cap 02/13/22 diphenoxylate-atropine 2 tab PO BID PRN #20 tab 02/13/22 potassium chloride [Klor-Con M20] 20 meq PO BIDCM 30 Days #60 tab 02/13/22 prednisone 40 mg PO DAILY #14 tab 02/13/22 vancomycin 125 mg PO UD 20 Days #60 cap 02/13/22 Hospital Course Operations None Procedures None Summary of Care Provided Minutes Spent on Discharge: 40 Hospital Course: Patient is an 81-year-old lady with significant past medical history including colon cancer status post colectomy, history of ulcerative colitis who presented with a week history of persistent diarrhea with crampy abdominal pain. Patient was admitted to regular nursing floor for subsequent management. Patient stool assay came back positive for C. difficile. CT of the abdomen obtained on admission findings consistent with diffuse colitis. 1. Acute C. difficile colitis ? Patient is being managed with p.o. vancomycin and IV metronidazole given the extensive nature of her colitis. Patient still has persistent leukocytosis and has diarrhea. Plan is to continue with current therapy 02/09/2022 Patient seen still complains of watery diarrhea. WBC count still remains elevated 02/10/2022een still continues to experience loose bowel movement. She had apparently refused cholestyramine ordered to help with profuse diarrhea. Did encourage patient to take the cholestyramine. WBC count still remains elevated -02/11/2022; Patient seen continues to experience a lot of diarrhea. Patient complains of feeling weak. WBC count is however trending do 02/12/2022atient seen continues to experience significant diarrhea. Patient remains on vancomycin in addition to fiber and cholestyramine -02/13/2022; patient was started on systemic steroids by GI DrGigi Draper 2. History of ulcerative colitis ? Acute flareup was ruled out on admission -Patient was not azathioprine discontinued started on steroid prescription written for prednisone on discharge. Plan is for patient to be considered for Stelara as outpatient 3. History of colon cancer ? Status post colectomy patient currently in remission 4. Moderate protein calorie malnutrition ? Evidenced by severe weight loss suboptimal energy intake and this is as a result of acute illness. Patient has been seen by dietitian and Ensure clear 4 times a day with meals recommended 5. Transient bacteremia with presumptive micrococcus species ? Thought to be contaminant 6. DVT prophylaxis ? Enoxaparin 7. Hypokalemia ? Corrected per protocol Physical Exam Narrative GENERAL: cooperative HEENT: Atraumatic; EYES; Anicteric, Normal Conjunctiva NECK; supple, normal thyroid, RESPIRATORY: Diminished to auscultation CARDIOVASCULAR: Regular S1 S2, GI: soft, normoactive bowel sounds, : No Renal angle tenderness; EXTREMITIES: No edema, no clubbing, MUSCULOSKELETAL: no muscle wasting NEURO: Awake; no lateralizing signs. SKIN: No Rash PSYCH; Flat affect Medical Records Data Medical Nutrition Assessment Dietitian: Malnutrition Criteria Met Start: 02/04/22 12:10 Freq: Status: Active Protocol: Document 02/08/22 14:41 JAROD (Rec: 02/08/22 14:41 JAROD [id number]) Nutrition Malnutrition Evidence of Malnutrition Exists Yes Malnutrition (moderate): Acute Illness/Injury Evidenced By Suboptimal Energy Intake ( Moderate),Weight Loss (Severe) ,Physical Changes (Mild) Clinical Problem Acute Disease or Injury Related Malnutrition Etiology moderate, acute malnutrition related to inadequate energy intake with GI dysfunction Signs/Symptoms as evidenced by estimated PO intake meeting <50% of estimated energy needs >5 days ; mild muscle wasting and fat loss in orbital, temporal area ; visible clavicles, acromion process, scapula per physical exam; unintentional wt loss of ~17#/13.6% x 2 months; BMI 18 .4 Status Active Problem Recommendation Dietitian Recommendations/Changes Continue regular diet- with fiber restriction given GI symptoms. Continue to offer 120mL ensure clear 4x/day w/ medpass for additional calories/protein if consumed. Weight / BMI Weight Weight: 48.9 kg Body Mass Index (BMI) 18.3 ABG / Lab / Microbiology Data Result Diagrams: 02/12/22 05:40 02/12/22 05:40 Laboratory: Laboratory Results - last 24 hr 02/12/22 11:45: Urine Color Straw, Urine Clarity Clear, Urine pH 7.0, Ur Specific Murray 1.010, Urine Protein Negative, Urine Glucose (UA) Normal, Urine Ketones Negative, Urine Occult Blood Negative, Urine Nitrite Negative, Urine Bilirubin Negative, Urine Urobilinogen Normal, Ur Leukocyte Esterase Negative, Urine RBC 0 SEEN, Urine WBC 0 SEEN, Ur Squamous Epith Cells 0 SEEN, Urine Bacteria 0 SEEN, Urine Mucus 0 SEEN Microbiology: Microbiology 02/12/22 07:40 Nasal Secretion SARS-CoV-2 Antigen (Rapid) - Final 02/05/22 13:25 Blood Culture (Wb) - Anticubital Right Blood Culture - Final No growth in 5 days. 02/05/22 13:30 Blood Culture (Wb) - Right Hand Blood Culture - Final No growth in 5 days. 02/03/22 19:50 Blood Culture (Wb) - No Site/Description Given Bacteria Detection (PCR) - Final 02/03/22 19:50 Blood Culture (Wb) - No Site/Description Given Blood Culture - Final Presumptive Micrococcus spp. 02/04/22 20:26 Stool C. difficile GDH Antigen & Toxins - Final 02/04/22 20:26 Stool C. difficile DNA Amplification - Final 02/04/22 20:26 Stool Enteric Bacteriology - Final Radiography Diagnostic Testing: Radiology Impression Chest X-Ray 02/12/22 09:00 IMPRESSION: Increased markings are seen at the left lung base suggestive of left basilar infiltrate with blunting of left costophrenic angle. Electronically Signed: Ja Bailey MD at 12:54 EDT , D/C Instructions Discharge Diet: No restrictions Discharge Activity: Return to Normal Activity Call your doctor if you observe: Fever of 101 or Higher, Shortness of breath, Fainting spells and Chest pain Meaningful Use Info Meaningful Use Diagnoses (Choose all that apply): None applicable Discharge Plan Admission Admit Date/Time: 02/03/22 22:08 Attending Provider: Clifton Evans Primary Care Provider: Varinder Phoenix NP Consulting Providers: Jared Draper Discharge Orders/Prescriptions Prescriptions: New potassium chloride [Klor-Con M20] 20 mEq Tablet,Er Particles/Crystals 20 meq PO BIDCM 30 Days Qty: 60 RF: 0 calcium polycarbophil [Fiber (calcium polycarbophil)] 625 mg Tablet 1,250 mg PO TID 14 Days Qty: 84 RF: 0 cholestyramine (with sugar) 4 gram Powder In Packet 4 g PO DAILY@0700 14 Days Qty: 14 RF: 0 vancomycin 125 mg capsule 125 mg PO UD 20 Days Qty: 60 RF: 0 diphenoxylate-atropine 2.5-0.025 mg Tablet 2 tab PO BID PRN Qty: 20 RF: 0 dicyclomine 10 mg Capsule 10 mg PO TIDAC 10 Days Qty: 30 RF: 0 prednisone 20 mg tablet 40 mg PO DAILY Qty: 14 RF: 0 Continued dicyclomine 20 mg tablet 20 mg PO TID PRN (Reason: cramps) Qty: 30 RF: 1 Discontinued azathioprine 50 mg tablet 100 mg PO DAILY RF: 0 colestipol 1 gram tablet 1 g PO BID RF: 0 colestipol [Colestid] 1 gram tablet 2 g PO DAILY RF: 0 Referrals / Follow Up: Jared Draper DO [STAFF PHYSICIAN] - Within 1 Week Varinder Phoenix NP, JULIEN-C [Primary Care Provider] - Within 1 Week Disposition Disposition (needs filled in before D/C Order can be placed): Home Health Service Charges/Coding Visit Charges Inpatient E&M: 41741 Disch Hosp
[2022-02-13 11:48] VITALS: BP 131/60; PULSE 70; RESP 16; TEMP 36.7; O2SAT 97
--- NOTE | 2022-02-15 10:46 | CASEMGMT ---
Received notification from Esme at [facility] that the [employer] has agreed to follow pt for HHC at al. Pt has appt on 02/17/22 at 1pm and she will need keep this appt for him to cont to follow.
== END 2022-02-13 11:48 | disposition home health service (06) | DRG 372 ==
LOC: ED 22:09 → MS3 22:42
PROVIDERS: Internal Medicine Gastroenterology; Admitting Provider Hospitalist; Emergency Provider Emergency Medicine; PCP Nurse Practitioner Family; Visit Provider Internal Medicine
DX: A04.72 Enterocolitis due to Clostridium difficile, not specified as recurrent (principal); K51.00 Ulcerative (chronic) pancolitis without complications; E44.0 Moderate protein-calorie malnutrition; Z68.1 Body mass index [BMI] 19.9 or less, adult; E87.6 Hypokalemia; H61.22 Impacted cerumen, left ear; E86.0 Dehydration; Z85.038 Personal history of other malignant neoplasm of large intestine; Z90.49 Acquired absence of other specified parts of digestive tract; Z87.19 Personal history of other diseases of the digestive system; R82.90 Unspecified abnormal findings in urine
CPT/HCPCS: 36415; 71045; 74018; 74177; 80048; 80053; 80076; 80202; 81001; 82533; 82550; 83540; 83605; 83615; 83690; 83735; 83993; 85025; 85652; 86140; 86645; 87040; 87149; 87426; 87493; 87506; 97110; 97116; 97161; 97165; 97530; 97535; 97802; 99284; J7030; J7050; Q9967; A4216; J0744; J2405

== ENCOUNTER → 2022-02-03 | Outpatient (CLI) | payer MEDICARE, OTHER, SELFPAY ==
[2022-02-03 12:34] LABS: Erythrocyte Sedimentation Rate 17 mm/hr (0-30)
[2022-02-03 12:37] LABS: Absolute Neutrophil Count 20.4 X10^3/uL (2.0-7.7); Basophil# 0.14 X10^3/uL; Basophil% 0.6 % (0-1); Eosinophil# 0.22 X10^3/uL; Eosinophils% 0.9 % (0-5); Hematocrit 41.6 % (37-47); Hemoglobin 13.1 g/dL (12.0-15.0); Lymphocyte % 10.7 % (19-41); Mean Corp Hgb Conc 31.5 g/dL (32-36); Mean Corpuscular Hgb 28.4 pg (27.0-32.0); Mean Platelet Vol. 10.6 fl (6.2-12.0); Monocyte# 1.54 X10^3/uL; Monocyte% 6.1 % (0-10); NRBC Flagged by Analyzer 0 % (0-5); Neutrophil # 20.35 X10^3/uL (2.7-7.7); Neutrophil % 80.5 % (47-70); POSITIVE DIFFERENTIAL YES; Platelet Count 391 K/mm3 (150-450); RBC Distribution Width CV 14.6 % (11.6-14.6); RBC Distribution Width SD 48.4 fl (35.1-43.9); Red Blood Count 4.62 M/mm3 (4.2-5.4); White Blood Count 25.3 K/mm3 (4.4-11.0)
[2022-02-03 12:38] LABS: Differential Indicated SCAN CRITERIA MET
[2022-02-03 12:59] LABS: ALB/GLOB Ratio 0.6 RATIO (0.9-2.4); AST(SGOT) 11 U/L (15-37); Alanine Aminotransfer ALT/SGPT 11 U/L (13-56); Albumin, Serum 2.9 g/dL (3.2-5.0); Alkaline Phosphatase 130 U/L (45-117); Anion Gap 7 (5-15); BUN 9 mg/dL (7-18); Calcium,Total 8.8 mg/dL (8.5-10.1); Chloride 101 mmol/L (98-107); Creatinine, Serum 0.82 mg/dL (0.55-1.02); EST Glomerular Filtration Rate 71 mL/min (>60); Est Glom Filt Rate - Afr Amer 86 mL/min (>60); Globulin 4.5 g/dL (2.2-4.2); Glucose 96 mg/dL (74-106); Iron 18 ug/dL (50-170); Lipase 97 U/L (73-393); Potassium 3.4 mmol/L (3.5-5.1); Protein, Total 7.4 g/dL (6.4-8.2); Sodium Level 137 mmol/L (136-145)
[2022-02-10 12:44] LABS: Pathologist Review Reviewed
== END | disposition home or self-care (01) ==
LOC: LAB 11:31
PROVIDERS: PCP Nurse Practitioner Family; Visit Provider Internal Medicine Gastroenterology
DX: R55 Syncope and collapse (principal); K51.90 Ulcerative colitis, unspecified, without complications; K92.2 Gastrointestinal hemorrhage, unspecified
CPT/HCPCS: 36415; 80053; 83540; 83690; 85025; 85652; 86140

== ENCOUNTER → 2022-02-17 | Outpatient (CLI) | payer MEDICARE, OTHER, SELFPAY ==
[2022-02-17 15:16] LABS: Absolute Lymphocyte Count 0.68 X10^3/uL (0.83-4.51); Absolute Neutrophil Count 14.9 X10^3/uL (2.0-7.7); Basophil# 0.02 X10^3/uL; Basophil% 0.1 % (0-1); Hematocrit 41.2 % (37-47); Hemoglobin 12.9 g/dL (12.0-15.0); Lymphocyte # 0.68 X10^3/ul (0.83-4.51); Lymphocyte % 4.3 % (19-41); Mean Corp Hgb Conc 31.3 g/dL (32-36); Mean Corpuscular Hgb 28.8 pg (27.0-32.0); Mean Platelet Vol. 10.7 fl (6.2-12.0); Monocyte# 0.08 X10^3/uL; Monocyte% 0.5 % (0-10); NRBC Flagged by Analyzer 0 % (0-5); Neutrophil # 14.94 X10^3/uL (2.7-7.7); Platelet Count 506 K/mm3 (150-450); RBC Distribution Width CV 16.6 % (11.6-14.6); RBC Distribution Width SD 54.7 fl (35.1-43.9); Red Blood Count 4.48 M/mm3 (4.2-5.4); White Blood Count 15.9 K/mm3 (4.4-11.0)
[2022-02-17 15:46] LABS: ALB/GLOB Ratio 0.8 RATIO (0.9-2.4); AST(SGOT) 18 U/L (15-37); Alanine Aminotransfer ALT/SGPT 16 U/L (13-56); Alkaline Phosphatase 68 U/L (45-117); Anion Gap 5 (5-15); BUN 14 mg/dL (7-18); BUN/Creat Ratio 18.4 RATIO (10-20); Calcium,Total 9.2 mg/dL (8.5-10.1); Chloride 102 mmol/L (98-107); Creatinine, Serum 0.76 mg/dL (0.55-1.02); EST Glomerular Filtration Rate 77 mL/min (>60); Est Glom Filt Rate - Afr Amer 94 mL/min (>60); Glucose 117 mg/dL (74-106); Magnesium 2.4 mg/dL (1.6-2.6); Potassium 5.2 mmol/L (3.5-5.1); Sodium Level 137 mmol/L (136-145)
== END | disposition home or self-care (01) ==
LOC: BIMLAB 13:41
PROVIDERS: PCP Nurse Practitioner Family; Referring Provider Nurse Practitioner Family; Visit Provider Nurse Practitioner Family
DX: R55 Syncope and collapse (principal); E43 Unspecified severe protein-calorie malnutrition; A04.72 Enterocolitis due to Clostridium difficile, not specified as recurrent; E87.6 Hypokalemia
CPT/HCPCS: 36415; 80053; 83735; 84443; 85025

== ENCOUNTER 2022-03-14 23:25 | Inpatient (IN) | payer MEDICARE, OTHER, SELFPAY ==
[2022-03-14 23:26] VITALS: BP 120/54; PULSE 99; RESP 20; TEMP 37.5; O2SAT 93; BMI 19.8
--- NOTE | 2022-03-14 23:44 | ED.VIS.GI ---
HPI HPI - GI History of Present Illness Chief Complaint: Abd Pain Informant: patient and family Abdominal Pain/Flank Pain Onset: Days Context: Gradual Onset Timing: Continuous Quality: Aching Location: LLQ Worsened by: Nothing Relieved by: Nothing Nausea/Vomiting/Emesis GI Symptom: Positive for Nausea; Negative for Vomiting Diarrhea/Melena/Hematochezia GI Symptom: Positive for Diarrhea; Negative for Melena and Hematochezia Stool Quality: Positive for Watery Associated Symptoms Associated Symptoms: Negative for Dysuria, Frequency and Hematuria Narrative Narrative: Patient presents with abdominal pain that has been getting worse over the last couple days. Patient is in the process of weaning off antibiotics for her ulcerative colitis. Patient states this feels similar to prior flareup of her ulcerative colitis. Patient states nothing makes her pain better and nothing makes it worse. Patient states her pain is mainly in the left lower quadrant. Patient admits to nausea but denies any vomiting. Patient admits to diarrhea but denies any melena or hematochezia. Patient denies any urinary complaints. [facility] Medical History (Updated 03/15/22 @ 01:[address] Monique Lora MD) Arthritis C. difficile colitis Cataract History of colon cancer Polycythemia Seasonal allergies Severe malnutrition Ulcerative colitis Home Medications vancomycin 125 mg PO QODAY 03/14/22 [History Last Taken Unknown] Allergy/AdvReac Type Severity Reaction Status Date / Time Sulfa (Sulfonamide Allergy Rash Verified 02/17/22 13:04 Antibiotics) amoxicillin [From Augmentin] AdvReac Vomiting Verified 02/17/22 13:04 clavulanic acid AdvReac Vomiting Verified 02/17/22 13:04 [From Augmentin] fexofenadine [From Rose] AdvReac Other Verified 02/17/22 13:04 hydrocodone AdvReac out of it Verified 02/17/22 13:04 Family History Mother No problems noted. Grandmother Arthritis Grandfather Arthritis Other Heart disease Surgical History H/O breast biopsy History of appendectomy History of cholecystectomy S/P cholecystectomy S/P partial colectomy Surgical history of tubal ligation Social History household members: family housing: house Smoking Status: Never smoker alcohol intake: never substance use type: does not use what type of physical activity do you participate in: walking frequency: daily ROS ROS ED Constitutional Constitutional ED: Denies chills or fever(s) Eyes Eyes: Denies blurry vision or change in vision ENT ENT ED: Reports rhinorrhea; Denies sore throat Cardiovascular Cardiovascular: Denies chest pain or palpitations Respiratory/Chest Respiratory/Chest: Denies cough or dyspnea Gastrointestinal Gastrointestinal: Reports abdominal pain, diarrhea and nausea; Denies vomiting Genitourinary Genitourinary ED: Denies dysuria or hematuria Musculoskeletal Musculoskeletal: Denies back pain or neck pain Integumentary Denies abscess or rash Neurologic Neurologic: Reports headache(s); Denies weakness Allergic/Immunologic Allergic/Immunologic ED: Denies mouth swelling or urticaria EXAM Physical Exam Const Vital Signs: 03/14/22 23:26 Temperature 99.5 F H Temperature Source Oral Pulse Rate 99 Respiratory Rate 20 H Blood Pressure 120/54 L Blood Pressure Mean 76 Pulse Ox 93 Oxygen Delivery Method Room Air Positive well nourished and well developed General Appearance ED: well developed HEENT Reports moist mucous membranes Neck supple and no JVD Resp normal respiratory effort and clear to auscultation bilaterally Cardio regular rate, regular rhythm and no murmurs GI normal to inspection, nondistended, normoactive bowel sounds and non-distended Palpation: soft and tender LLQ, RLQ and LUQ; Negative for guarding or rebound tenderness present Extremity normal to inspection General Extremety ED: Negative for edema or tenderness General Extremity: Negative for edema Neuro oriented x3, CN's II-XII intact bilaterally and no sensory deficits noted Sensorium / Orientation: alert Motor Exam: strength 5/5 throughout Psych mental status grossly normal Skin no rashes or lesions noted MDM MDM MDM Narrative Medical decision making narrative: Patient was given IV fluids, morphine, and Zofran. CBC shows a leukocytosis of 33.5. There are 2.5% immature granulocytes and 86.4% neutrophils. Comprehensive metabolic profile shows a potassium of 3.1. The remainder was essentially within normal limits. Urinalysis does not show any evidence of urinary tract infection. Patient was given a dose of oral potassium. Patient is feeling better on reevaluation. Because of the leukocytosis, CT scan of the abdomen pelvis was obtained. Blood cultures were obtained. Case was discussed with the hospitalist. She will be admit the patient to her service. Patient and family understood and were agreeable with the plan. All questions were answered. Lab Data Attestation: I reviewed the patient's lab results. Labs: Laboratory Results - last 24 hr 03/14/22 03/14/22 03/14/22 23:20 23:50 23:50 WBC 33.5 H* RBC 4.70 Hgb 13.2 Hct 40.6 MCV 86.4 MCH 28.1 MCHC 32.5 RDW Std Deviation 46.6 H RDW Coeff of Rhonda 14.6 Plt Count 375 MPV 10.6 Immature Gran % (Auto) 2.500 H Neut % (Auto) 86.4 H Lymph % (Auto) 4.9 L Fountain % (Auto) 5.7 Eos % (Auto) 0.1 Baso % (Auto) 0.4 Absolute Neuts (auto) 29.0 H Absolute Lymphs (auto) 1.64 Nucleated RBC % 0 Diff Path Review May foll ESR Sodium 136 Potassium 3.1 L Chloride 99 Carbon Dioxide 30.0 Anion Gap 7 BUN 10 Creatinine 0.85 Estim Creat Clear Calc 40.83 Est GFR (MDRD) Af Amer 83 Est GFR (MDRD) Non-Af 68 BUN/Creatinine Ratio 11.8 Glucose 117 H Calcium 8.4 L Phosphorus 2.2 L Magnesium 2.0 Total Bilirubin 0.40 AST 11 L ALT 8 L Alkaline Phosphatase 120 H C-React Prot Ext Range 294.00 H Total Protein 6.9 Albumin 2.4 L Globulin 4.5 H Albumin/Globulin Ratio 0.5 L Lipase 125 Urine Color Urine Clarity Urine pH Ur Specific Stickney Urine Protein Urine Glucose (UA) Urine Ketones Urine Occult Blood Urine Nitrite Urine Bilirubin Urine Urobilinogen Ur Leukocyte Esterase Urine RBC Urine WBC Ur Squamous Epith Cells Urine Bacteria Urine Mucus 03/14/22 03/15/22 23:50 00:02 WBC RBC Hgb Hct MCV MCH MCHC RDW Std Deviation RDW Coeff of Rhonda Plt Count MPV Immature Gran % (Auto) Neut % (Auto) Lymph % (Auto) Fountain % (Auto) Eos % (Auto) Baso % (Auto) Absolute Neuts (auto) Absolute Lymphs (auto) Nucleated RBC % Diff Path Review ESR 38 H Sodium Potassium Chloride Carbon Dioxide Anion Gap BUN Creatinine Estim Creat Clear Calc Est GFR (MDRD) Af Amer Est GFR (MDRD) Non-Af BUN/Creatinine Ratio Glucose Calcium Phosphorus Magnesium Total Bilirubin AST ALT Alkaline Phosphatase C-React Prot Ext Range Total Protein Albumin Globulin Albumin/Globulin Ratio Lipase Urine Color Yellow Urine Clarity Clear Urine pH 6.0 Ur Specific Stickney 1.020 Urine Protein 100 H Urine Glucose (UA) Normal Urine Ketones 150 A* Urine Occult Blood 250 H Urine Nitrite Negative Urine Bilirubin 1 H Urine Urobilinogen Normal Ur Leukocyte Esterase 100 H Urine RBC 0-5 SEEN Urine WBC 0-5 SEEN Ur Squamous Epith Cells 0-5 SEEN Urine Bacteria 1+ Urine Mucus 1+ Discharge Plan Dx/Rx/DC Orders Clinical Impression: Abdominal pain, acute, left lower quadrant, Ulcerative colitis Disposition Disposition: Acute Care Hospital [facility] Discharge Date/Time: 03/15/22 01:45
[2022-03-15 00:11] LABS: Color, Urine Yellow (Yellow); Glucose, Dipstick Normal (Normal); Leukocyte Esterase-Dipstick 100 /ul (Negative); Nitrite-Dipstick Negative (Negative); Occult Blood-Urine 250 /ul (Negative); Protein-Dipstick 100 mg/dl (Negative); Urine Clarity Clear (Clear); Urine Urobilinogen Normal (Normal)
[2022-03-15 00:14] LABS: ALB/GLOB Ratio 0.5 RATIO (0.9-2.4); AST(SGOT) 11 U/L (15-37); Alanine Aminotransfer ALT/SGPT 8 U/L (13-56); Albumin, Serum 2.4 g/dL (3.2-5.0); Alkaline Phosphatase 120 U/L (45-117); Anion Gap 7 (5-15); BUN 10 mg/dL (7-18); BUN/Creat Ratio 11.8 RATIO (10-20); Calcium,Total 8.4 mg/dL (8.5-10.1); Chloride 99 mmol/L (98-107); Creatinine, Serum 0.85 mg/dL (0.55-1.02); EST Glomerular Filtration Rate 68 mL/min (>60); Est Glom Filt Rate - Afr Amer 83 mL/min (>60); Estimated Creatinine Clearance 40.83 ml/min; Globulin 4.5 g/dL (2.2-4.2); Glucose 117 mg/dL (74-106); Lipase 125 U/L (73-393); Potassium 3.1 mmol/L (3.5-5.1); Protein, Total 6.9 g/dL (6.4-8.2); Sodium Level 136 mmol/L (136-145)
[2022-03-15 00:16] LABS: Absolute Lymphocyte Count 1.64 X10^3/uL (0.83-4.51); Basophil# 0.12 X10^3/uL; Basophil% 0.4 % (0-1); Eosinophil# 0.03 X10^3/uL; Eosinophils% 0.1 % (0-5); Hematocrit 40.6 % (37-47); Hemoglobin 13.2 g/dL (12.0-15.0); Lymphocyte # 1.64 X10^3/ul (0.83-4.51); Lymphocyte % 4.9 % (19-41); Mean Corp Hgb Conc 32.5 g/dL (32-36); Mean Corpuscular Hgb 28.1 pg (27.0-32.0); Mean Corpuscular Volume 86.4 fL (81-99); Mean Platelet Vol. 10.6 fl (6.2-12.0); Monocyte# 1.91 X10^3/uL; Monocyte% 5.7 % (0-10); NRBC Flagged by Analyzer 0 % (0-5); Neutrophil # 28.98 X10^3/uL (2.7-7.7); Neutrophil % 86.4 % (47-70); POSITIVE COUNT YES; POSITIVE DIFFERENTIAL YES; Platelet Count 375 K/mm3 (150-450); RBC Distribution Width CV 14.6 % (11.6-14.6); RBC Distribution Width SD 46.6 fl (35.1-43.9); White Blood Count 33.5 K/mm3 (4.4-11.0)
[2022-03-15] MEDS: 0.9% Normal Saline 1,000 ML 1000 ML IV (00:18)
[2022-03-15] MEDS: Morphine 2 MG/ML Syringe IV (00:19)
[2022-03-15] MEDS: Ondansetron 4 MG/2 ML Vial IV (00:19)
[2022-03-15 00:27] LABS: Differential Indicated SCAN CRITERIA MET
[2022-03-15 00:34] LABS: Ketone-Dipstick 150 mg/dl (Negative); Urine Bilirubin Dipstick 1 mg/dL (Negative)
[2022-03-15 00:44] LABS: Bacteria 1+ /hpf (None Seen); Mucous, Urine 1+ /hpf (<or=2+); Red Blood Cells-Urine 0-5 SEEN /hpf (0-5); Squamous Epithelial Cells - UA 0-5 SEEN /hpf (5-10); White Blood Cells 0-5 SEEN /hpf (0-5)
[2022-03-15] MEDS: Potassium Chloride Oral Tablet 20 MEQ 40 MEQ PO (00:46)
--- NOTE | 2022-03-15 00:50 | CT_ITS ---
STUDY: CT ABDOMEN AND PELVIS WITH CONTRAST REASON FOR EXAM: Female, 81 years old. Abdominal pain RADIATION DOSAGE (If Supplied By Facility): CTDIvol = ( 11.12 ) mGy, DLP = ( 283.17 ) mGycm TECHNIQUE: Transaxial images were obtained from the dome of the diaphragm to the symphysis pubis without oral contrast. Oral and amp; IV Gastrografin and amp; 75mL Isovue-370 was administered. Sagittal and coronal images were reconstructed. Individualized dose optimization techniques were used for this CT. COMPARISON: 02/03/2022 FINDINGS: The visualized lung bases are unremarkable. The visualized portions of the heart are within normal limits. Normal liver. There are surgical clips in the gallbladder fossa consistent with a prior cholecystectomy. Normal spleen. Normal pancreas. Normal bilateral adrenal glands. Normal right kidney. Normal left kidney. There is a small hiatal hernia. Normal small intestine. Diffuse and circumferential wall thickening and edema of the entire colon compatible with acute colitis. Appendix is not clearly visualized. Postsurgical change of the rectosigmoid colon. Normal abdominal aorta. Normal inferior vena cava. Normal retroperitoneum. Normal urinary bladder. There is atrophy of the uterus. Normal abdominal wall. Normal osseous structures. CT/Abdomen/Pelvis WITH Contrast IMPRESSION: Diffuse circumferential wall thickening and edema of the entire colon compatible with colitis. No significant change from prior. Patient has a known history of ulcerative colitis. No evidence of bowel obstruction. Postsurgical change of the distal rectosigmoid colon. No evidence of free air or abscess. Electronically Signed: Ryan Maria DO at 4:07 EDT ,
--- NOTE | 2022-03-15 01:10 | HP.PCM.HOS_ITS ---
HPI - General General Date of Admission: 03/15/22 Date of Service: 03/15/22 Chief Complaint: Worsening diarrhea, abdominal pain. 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, on dicyclomine, clestipol, recent admission 02/03/22-02/13/22 discharged following UC flare and c-difficile enterocolitis discharged on prednisone 40 mg QD x 14 days and tapering course vancomcyin (4x/day x 1 wk->2x/day x 1 wk- >1x/day x 1 wk->QOD x 4 weeks planned, currently on presentation on week 2 of this regimen) with recurrent LLQ abdominal cramping pain and severe progressively worsening watery diarrhea starting 3 days prior to current presentation noted to smell extremely foul with low grade temperature noted upon ED presentation with poor oral intake, nausea without family reported emesis prompting re-evaluation in the ED. patient prior to ED presentation was completely incontinent of feces secondary to previous nature of the diarrhea. She currently rates her pain 4-5/10 however more severe with palpation in the ED and is noted to be worst in BL UQ moreso than her noted LLQ. She denies any leonarda viating or aggravating factors/interventions. Unable to start Stelara until c- diff infection resolved. Had planned GI follow-up on 03/16/[address] Draper. Work-up in the ED included T99.5, heart rate 99, BP 120/54, respiratory rate 20, 93% on room air, CMP with potassium 3.1, BUN/creat 10/0.5, glucose 117, calcium 8.4, total bilirubin 0.40, AST/ALT 11/8, alk phos 120, lipase 125, T with WBC 33.5 with most recent prior 02/17/2022 WBC 15.9 with history of being on steroid taper however this was only administered for 14 days, hemoglobin 13.2, platelets 375 with significant left shift. In the ED patient administered potassium 40 mill equivalent p.o. x1, Zofran, morphine and normal saline bolus. [facility] Medical History (Updated 03/15/22 @ 01:[address] Monique Lora MD) Arthritis C. difficile colitis Cataract History of colon cancer Polycythemia Seasonal allergies Severe malnutrition Ulcerative colitis Home Medications vancomycin 125 mg PO QODAY 03/14/22 [History Last Taken Unknown] Allergy/AdvReac Type Severity Reaction Status Date / Time Sulfa (Sulfonamide Allergy Rash Verified 02/17/22 13:04 Antibiotics) amoxicillin [From Augmentin] AdvReac Vomiting Verified 02/17/22 13:04 clavulanic acid AdvReac Vomiting Verified 02/17/22 13:04 [From Augmentin] fexofenadine [From Rose] AdvReac Other Verified 02/17/22 13:04 hydrocodone AdvReac out of it Verified 02/17/22 13:04 Family History Mother No problems noted. Grandmother Arthritis Grandfather Arthritis Other Heart disease Surgical History H/O breast biopsy History of appendectomy History of cholecystectomy S/P cholecystectomy S/P partial colectomy Surgical history of tubal ligation Social History household members: family housing: house Smoking Status: Never smoker alcohol intake: never substance use type: does not use what type of physical activity do you participate in: walking frequency: daily ROS ROS Narrative Admission Review of Systems: CONSTITUTIONAL: No weight loss, + low grade T in the ED, complaining of chills, weakness or fatigue. HEENT: Eyes: No visual loss, blurred vision, double vision or yellow sclerae. Ears, Nose, Throat: No hearing loss, sneezing, congestion, runny nose or sore throat. SKIN: No rash or itching, lesions, wounds. CARDIOVASCULAR: No chest pain, chest pressure or chest discomfort, palpitations, edema, orthopnea, syncopal events. RESPIRATORY: No shortness of breath, cough or sputum, wheezing, hemoptysis. GASTROINTESTINAL: + anorexia with nausea without vomiting, diarrhea, abdominal pain, No melena, BRBPR. GENITOURINARY: No dysuria, frequency, urgency or retention. NEUROLOGICAL: + Confusion. No headache, dizziness, syncope, paralysis, ataxia, numbness or tingling in the extremities, focal weakness, change in bowel or bladder control, seizure. MUSCULOSKELETAL: + muscle, back pain, joint pain or stiffness. HEMATOLOGIC: No anemia, bleeding or bruising. LYMPHATICS: No enlarged nodes. No history of splenectomy. PSYCHIATRIC: + Suspect depression onset. ENDOCRINOLOGIC: No reports of sweating, cold or heat intolerance. No polyuria or polydipsia. ALLERGIES: No history of asthma, hives, eczema or rhinitis. Vital Signs Vital Signs Vital Signs: 03/14/22 23:26 Temperature 99.5 F H Temperature Source Oral Pulse Rate 99 Respiratory Rate 20 H Blood Pressure 120/54 L Blood Pressure Mean 76 Pulse Ox 93 Oxygen Delivery Method Room Air Weight Weight: 108 lb 0.424 oz Body Mass Index (BMI) 19.8 Physical Exam Narrative Physical Examination: General: Awake, alert, oriented to self, place and recent events but per discussion with granddaughter patient has been confused, remains calm and is cooperative as well as stoic, seated upright in the ED bed, fatigued, ill- appearing, appears significantly uncomfortable. Skin: Normal color, normal turgor, no icterus, no cyanosis except occasional staged ecchymoses. HEENT: AT/NC, EOMI, PERRLA, dry MM, no carotid bruits or JVD noted. Lungs: Diminished, greater bases, moderate effort, mildly increased respiratory rate, no rales, ronchi or wheezing. Heart: Mildly tachycardic with regular rhythm; no gallop, rub audible. Abdomen: Soft, thin cachectic habitus, significant abdominal pain, worse in the bilateral upper quadrants with voluntary guarding, moderately distended, mildly hyperactive bowel sounds in the right upper quadrant and mildly hypoactive bowel sounds in the other fay, difficult assess HSM secondary to pain with palpation. Extremities: No cyanosis, clubbing, or edema. Evidence of muscle wasting. Neurological: Patient awake, alert, oriented as noted, cognitive function appears intact but daughter states that patient has been witnessed to be having intermittent hallucinations, talking individuals were not there which happened similarly when patient has had elevated WBC prior with infection; pupils equally reactive to light and accommodation, cranial nerves II-XII grossly normal, moving all 4 extremities, no focal deficits, strength severely global decreased secondary to acute presentation Psychiatric: Affect appears fatigued, ill-appearing, appears in significant pain no acute evidence of depressive or anxiety feelings. Results Lab / Micro Data Result Diagrams: 03/14/22 23:50 03/14/22 23:50 Labs: Laboratory Results - last 24 hr 03/14/22 23:50: WBC 33.5 H*, RBC 4.70, Hgb 13.2, Hct 40.6, MCV 86.4, MCH 28.1, MCHC 32.5, RDW Std Deviation 46.6 H, RDW Coeff of Rhonda 14.6, Plt Count 375, MPV 10.6, Immature Gran % (Auto) 2.500 H, Neut % (Auto) 86.4 H, Lymph % (Auto) 4.9 L , [place] % (Auto) 5.7, Eos % (Auto) 0.1, Baso % (Auto) 0.4, Absolute Neuts (auto) 29.0 H, Absolute Lymphs (auto) 1.64, Nucleated RBC % 0, Diff Path Review February03/14/22 23:50: Sodium 136, Potassium 3.1 L, Chloride 99, Carbon Dioxide 30.0, Anion Gap 7, BUN 10, Creatinine 0.85, Estim Creat Clear Calc 40.83, Est GFR (MDRD) Af Amer 83, Est GFR (MDRD) Non-Af 68, BUN/Creatinine Ratio 11.8, Glucose 117 H, Calcium 8.4 L, Total Bilirubin 0.40, AST 11 L, ALT 8 L, Alkaline Phosphatase 120 H, Total Protein 6.9, Albumin 2.4 L, Globulin 4.5 H, Albumin/Globulin Ratio 0.5 L, Lipase 125 03/15/22 00:02: Urine Color Yellow, Urine Clarity Clear, Urine pH 6.0, Ur Specific [place] 1.020, Urine Protein 100 H, Urine Glucose (UA) Normal, Urine Ketones 150 A*, Urine Occult Blood 250 H, Urine Nitrite Negative, Urine Bilirubin 1 H, Urine Urobilinogen Normal, Ur Leukocyte Esterase 100 H, Urine RBC 0-5 SEEN, Urine WBC 0-5 SEEN, Ur Squamous Epith Cells 0-5 SEEN, Urine Bacteria 1+, Urine Mucus 1+ Assessment & Plan Assessment/Plan (1) Acute abdominal pain: PLAN: The patient is an 81 y/o F w/ PMHx: 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, on dicyclomine, clestipol, recent admission 02/03/22-02/13/22 discharged following UC flare and c-difficile enterocolitis discharged on prednisone 40 mg QD x 14 days and tapering course vancomcyin (4x/day x 1 wk- >2x/day x 1 wk->1x/day x 1 wk->QOD x 4 weeks planned, currently on presentation on week 2 of this regimen) with recurrent LLQ abdominal cramping pain and severe progressively worsening watery diarrhea starting 3 days prior to current presentation noted to smell extremely foul with low grade temperature noted upon ED presentation with poor oral intake, nausea without family reported emesis prompting re-evaluation in the ED. #1. Acute Encephalopathy secondary to Acute Suspected Recurrent on Recent Acute C. difficile enterocolitis and acute concurrent ulcerative colitis flare with Acute Abdominal pain with rising leukocytosis, worsening diarrhea and low grade T following de-escalation of vancomycin dosing: CT A/P w/ as been ordered and is pending upon admission. Will admit to medical surgical floor, maintain on aggressive hydration, monitor I&Os, maintain NPO status w/ bowel rest until nausea and pain have been improved and also CT pending as noted, until CT scan resulted will transition to oral vancomcyin 500 mg q 6 hour dosing coupled with IV Flagyl 500 mg q 8 hours, will request stool lactoferrin/calprotectin, enteric pathogen's, O+P to be cautious although less likely, will have anti-emetics/pain regimen PRN, will obtain CRP and ESR, lactic acid, blood Cx x 2 being obtained in the ED now, will consult infectious disease as well as gastroenterology consultation, hold on steroid addition pending their evaluation, per review of most recent gastroenterology evaluation they had noted that there are some studies were patient's may be administered steroids in the setting of C. difficile for those with concurrent IBD who cannot undergo immunosuppression such as anti-TNF medications. Last presentation GI noted preference to have infectious disease involved for clearance for administration of immunosuppression as they have been concerned at that time about azathioprine still in her system. Continue dicyclomine and colestipol regimen. Need to discuss with GI but could patient potentially be a candidate for Bezlotoxumab in fusion if appropriate if recurrence c-diff. #2. Hypokalemia: Admission K+ 3.1, magnesium level has also been requested with supplementation if necessary, supplementation given, repeat level in AM. #3. Severe Protein Calorie Malnutrition: Evidenced by reduction in patient BMI, inability to tolerate any oral intake with persistent nausea and GI losses, nutrition consulted. #4. History of colon cancer: Status post right prior hemicolectomy, considered in remission, most recent colonoscopy was on 11/27/2021 with severe pancolitis ulcerative colitis which was biopsied with congested mucosa in the distal ileum and the terminal ileum which was also biopsied. #5. Suspect onset depression: Patient has been through a significant decline in her health with frequent bouts of abdominal pain that of been intractable as well as several admissions. Do think the patient would benefit from close c ontinued observation as suspect some onset of depression present. #6. DVT prophylaxis: SCDs, Lovenox chemoprophylaxis in AM if CT scan findings do not preclude usage. #7. CODE status: Patient HCPOA is her granddaughter is present and her 2 sons and living will is currently in place. Discussed CODE status at length including difference between FULL code, DNR-CCA and DNR-CC status. Following discussions about the differences in these status, requested transition to DNR-CCA, on intubation status. Alfred discussions with family and patient were undertaken and if in fact patient continues to have serial bouts of UC flares or enterocolitis she notes consideration for potential transition to DNRCC. Charges/Coding Visit Charges Inpatient E&M: 32272 Init Hosp L3
[2022-03-15 01:41] LABS: Erythrocyte Sedimentation Rate 38 mm/hr (0-30)
[2022-03-15 01:42] VITALS: BP 130/70; PULSE 86; RESP 18; TEMP 36.9; O2SAT 93
[2022-03-15 01:54] VITALS: BMI 19.1
[2022-03-15 02:01] LABS: Phosphorus 2.2 mg/dL (2.5-4.9)
[2022-03-15 02:06] VITALS: BP 115/48; PULSE 86; RESP 18; TEMP 37.6; O2SAT 97
[2022-03-15 03:04] LABS: Lactic Acid 0.7 mmol/L (0.4-1.9)
[2022-03-15] MEDS: 0.9% Saline Lock 10 ML Syringe IV ×2 (03:11→03:47)
[2022-03-15] MEDS: Vancomycin HCl 250 MG Capsule 500 MG PO ×2 (03:12→06:36)
[2022-03-15] MEDS: metroNIDAZOLE 500 MG/100 ML BAG 100 MG IV ×3 (03:12→20:57)
--- NOTE | 2022-03-15 03:20 | NURSING ---
spoke with Jordan from pharmacy regarding pts vanc and Flagyl schedule, both were just given 0312 and flagyl is q8 and vanc q6 due again at 0600. Jordan states to not give flagyl at 0600 and resume 1400 schedule, ok to give vanc at 0600.
[2022-03-15] MEDS: 0.9% Normal Saline 1,000 ML 125 ML IV ×3 (04:35→20:57)
[2022-03-15 06:30] LABS: Absolute Neutrophil Count 29.6 X10^3/uL (2.0-7.7); Basophil# 0.13 X10^3/uL; Basophil% 0.4 % (0-1); Eosinophil# 0.08 X10^3/uL; Eosinophils% 0.2 % (0-5); Hematocrit 37.1 % (37-47); Hemoglobin 11.6 g/dL (12.0-15.0); Lymphocyte % 5.8 % (19-41); Mean Corp Hgb Conc 31.3 g/dL (32-36); Mean Corpuscular Hgb 28.1 pg (27.0-32.0); Mean Corpuscular Volume 89.8 fL (81-99); Mean Platelet Vol. 10.1 fl (6.2-12.0); Monocyte# 2.13 X10^3/uL; Monocyte% 6.2 % (0-10); NRBC Flagged by Analyzer 0 % (0-5); Neutrophil # 29.62 X10^3/uL (2.7-7.7); Neutrophil % 85.5 % (47-70); POSITIVE COUNT YES; POSITIVE DIFFERENTIAL YES; Platelet Count 323 K/mm3 (150-450); RBC Distribution Width CV 14.6 % (11.6-14.6); RBC Distribution Width SD 47.8 fl (35.1-43.9); Red Blood Count 4.13 M/mm3 (4.2-5.4); White Blood Count 34.6 K/mm3 (4.4-11.0)
[2022-03-15 07:00] LABS: ALB/GLOB Ratio 0.5 RATIO (0.9-2.4); AST(SGOT) 8 U/L (15-37); Alanine Aminotransfer ALT/SGPT 8 U/L (13-56); Albumin, Serum 1.9 g/dL (3.2-5.0); Alkaline Phosphatase 132 U/L (45-117); Anion Gap 9 (5-15); BUN 8 mg/dL (7-18); BUN/Creat Ratio 13.5 RATIO (10-20); Calcium,Total 7.7 mg/dL (8.5-10.1); Chloride 102 mmol/L (98-107); Creatinine, Serum 0.59 mg/dL (0.55-1.02); EST Glomerular Filtration Rate 104 mL/min (>60); Est Glom Filt Rate - Afr Amer 125 mL/min (>60); Globulin 3.8 g/dL (2.2-4.2); Glucose 96 mg/dL (74-106); Potassium 3.4 mmol/L (3.5-5.1); Protein, Total 5.7 g/dL (6.4-8.2); Sodium Level 135 mmol/L (136-145)
[2022-03-15 07:12] LABS: Differential Indicated SCAN CRITERIA MET
[2022-03-15 09:41] VITALS: BP 120/46; PULSE 88; RESP 18; TEMP 37.2; O2SAT 98
[2022-03-15] MEDS: Enoxaparin 30 MG/0.3 ML Syringe SC (09:47)
[2022-03-15] MEDS: Vancomycin 125 MG/5 ML Susp PO.SYRINGE 500 MG PO ×2 (11:41→17:14)
--- NOTE | 2022-03-15 12:51 | CHAPLAIN ---
Type of Pastoral Visit _x__ Initial Visit ___ Follow-up Visit ___ On-call Visit ___ General Patient Visit ___ Spiritual Assessment ___ Family Conference ___ Bereavement ___ Rapid Response ___ Code Blue ___ Other (describe below) Pastoral Care Referral From _x__ Patient ___ Family ___ Nurse ___ Physician ___ Drywall Hanger ___ Clinical Field Specialist ___ Other (describe below) Sacrament/Intervention _x__ Active listening ___ Anointing ___ Church ___ Bereavement ___ Communion ___ Berna exploration ___ ___ Life review _x__ Prayer ___ Reconciliation ___ Sacrament of Sick _x__ Supportive presence ___ Wedding ___ Other (describe below) Pastoral Comments patient has been seen numerous times in past admissions; pt once again presents with very low affect and appearance of despair; pt sighs often, states I just don't know about fci through nearly every sentence, does not look up during conversation, and repeats how she doesn't understand how she could be like this; pt says I guess it will be whatever it will be; pt is reminded of support, berna, and importance of rest; pt accepts prayer and presence
[2022-03-15 12:55] VITALS: O2SAT 96
--- NOTE | 2022-03-15 12:55 | PN.HOSP_ITS ---
Subjective Subjective Patient states her diarrhea started 2 to 3 days ago and has been worsening. She was recently treated for C. difficile and states that its been very watery and very smelly. She denies any worsening abdominal pain than her baseline. She has just been off for treatment dose vancomycin and placed on suppression dose vancomycin. Objective Data Objective Data Vital Signs: Vital Signs Temp Pulse Resp BP Pulse Ox 98.9 F 88 18 120/46 L 98 03/15/22 09:41 03/15/22 09:41 03/15/22 09:41 03/15/22 09:41 03/15/22 09:41 Oxygen Delivery Method Room Air Weight: 47.3 kg Body Mass Index (BMI) 19.1 Intake & Output: Intake and Output for Last 24 Hours 03/13/22 03/14/22 03/15/22 23:59 23:59 23:59 Intake Total 2250.75 / 2250.75 Output Total 100 / 100 Balance 2150.75 / 2150.75 Medical Nutrition Assessment Dietitian: Malnutrition Criteria Met Start: 03/15/22 11:21 Freq: Status: Active Protocol: Document 03/15/22 11:22 JAROD (Rec: 03/15/22 11:22 [facility] [id number]) Nutrition Malnutrition Evidence of Malnutrition Exists Yes Malnutrition (severe): Chronic Evidenced By Suboptimal Energy Intake ( Moderate),Weight Loss (Severe) ,Physical Changes (Moderate) Clinical Problem Chronic Disease or Condition Related Malnutrition Etiology related to altered GI function and issues with ulcerative colitis making it difficult to consume adequate nutrition to meet est nutritional needs Signs/Symptoms as evidenced by decreased po intake, wt loss of 13.2% x 7 months and fat/muscle loss of BUE, face (temporal, orbital, buccal) and clavicle, acromion process Status Active Problem Recommendation Dietitian Recommendations/Changes As medically able, rec MILLIE to Transitional w/ goal of Regular Low Fiber Rec 120 ml ensure enlive 4x/ day w/ medpass when po diet resumes. Lab / Micro Data Result Diagrams: 03/15/22 06:00 03/15/22 06:00 Labs: Laboratory Results - last 24 hr 03/14/22 23:20: Phosphorus 2.2 L, Magnesium 2.0, C-React Prot Ext Range 294.00 H 03/14/22 23:50: WBC 33.5 H*, RBC 4.70, Hgb 13.2, Hct 40.6, MCV 86.4, MCH 28.1, MCHC 32.5, RDW Std Deviation 46.6 H, RDW Coeff of Rhonda 14.6, Plt Count 375, MPV 10.6, Immature Gran % (Auto) 2.500 H, Neut % (Auto) 86.4 H, Lymph % (Auto) 4.9 L , [place] % (Auto) 5.7, Eos % (Auto) 0.1, Baso % (Auto) 0.4, Absolute Neuts (auto) 29.0 H, Absolute Lymphs (auto) 1.64, Nucleated RBC % 0, Diff Path Review February03/14/22 23:50: Sodium 136, Potassium 3.1 L, Chloride 99, Carbon Dioxide 30.0, Anion Gap 7, BUN 10, Creatinine 0.85, Estim Creat Clear Calc 40.83, Est GFR (MDRD) Af Amer 83, Est GFR (MDRD) Non-Af 68, BUN/Creatinine Ratio 11.8, Glucose 117 H, Calcium 8.4 L, Total Bilirubin 0.40, AST 11 L, ALT 8 L, Alkaline Phosphatase 120 H, Total Protein 6.9, Albumin 2.4 L, Globulin 4.5 H, Albumin/Globulin Ratio 0.5 L, Lipase 125 03/14/22 23:50: ESR 38 H 03/15/22 00:02: Urine Color Yellow, Urine Clarity Clear, Urine pH 6.0, Ur Specific [place] 1.020, Urine Protein 100 H, Urine Glucose (UA) Normal, Urine Ketones 150 A*, Urine Occult Blood 250 H, Urine Nitrite Negative, Urine Bilirubin 1 H, Urine Urobilinogen Normal, Ur Leukocyte Esterase 100 H, Urine RBC 0-5 SEEN, Urine WBC 0-5 SEEN, Ur Squamous Epith Cells 0-5 SEEN, Urine Bacteria 1+, Urine Mucus 1+ 03/15/22 02:25: Lactic Acid 0.7 03/15/22 06:00: WBC 34.6 H*, RBC 4.13 L, Hgb 11.6 L, Hct 37.1, MCV 89.8, MCH 2 8.1, MCHC 31.3 L, RDW Std Deviation 47.8 H, RDW Coeff of Rhonda 14.6, Plt Count 323, MPV 10.1, Immature Gran % (Auto) 1.900 H, Neut % (Auto) 85.5 H, Lymph % (Auto) 5.8 L, [place] % (Auto) 6.2, Eos % (Auto) 0.2, Baso % (Auto) 0.4, Absolute Neuts (auto) 29.6 H, Absolute Lymphs (auto) 2.00, Nucleated RBC % 0, Diff Path Review February03/15/22 06:00: Sodium 135 L, Potassium 3.4 L, Chloride 102, Carbon Dioxide 24.0, Anion Gap 9, BUN 8, Creatinine 0.59, Estim Creat Clear Calc 33.50, Est GFR (MDRD) Af Amer 125, Est GFR (MDRD) Non-Af 104, BUN/Creatinine Ratio 13.5, Glucose 96, Calcium 7.7 L, Total Bilirubin 0.40, AST 8 L, ALT 8 L, Alkaline Phosphatase 132 H, Total Protein 5.7 L, Albumin 1.9 L, Globulin 3.8, Albumin/Globulin Ratio 0.5 L Radiography Diagnostic Testing: Radiology Impression Abdomen/Pelvis CT 03/15/22 00:50 IMPRESSION: Diffuse circumferential wall thickening and edema of the entire colon compatible with colitis. No significant change from prior. Patient has a known history of ulcerative colitis. No evidence of bowel obstruction. Postsurgical change of the distal rectosigmoid colon. No evidence of free air or abscess. Electronically Signed: Ryan Maria DO at 4:07 EDT Reading Location ID and State: [facility] / [place] Tel , Service support , Physical Exam Const alert, oriented x3 and no apparent distress Constitutional Narrative: Thin elderly white female lying in bed, appears tired but nontoxic, very pleasant and appropriately interactive Exam Limitations: no limitations Nutritional Appearance: thin HEENT head/scalp atraumatic and moist oral mucous membranes Head and Scalp: normocephalic Resp normal respiratory effort, no retractions, no use of accessory muscles and clear to auscultation bilaterally Auscultation: Negative for crackles, rales, rhonchi or wheezes Cardio regular rate, regular rhythm, S1 normal heart sound, S2 normal heart sound, no murmurs, no rub, no gallops, no clicks and no JVD GI normal to inspection, nondistended, normoactive bowel sounds, soft to palpation and non-distended; Negative for hepatosplenomegaly GI Narrative: Diffuse nonspecific tenderness Palpation: tender Extremity no clubbing, cyanosis or edema Peripheral Pulses: Yes pulses 2+ throughout Neuro oriented x3, CN's II-XII intact bilaterally, moves all extremities and no focal motor deficits Neuro Narrative: Generalized weakness Sensorium / Orientation: awake and alert Speech: speech normal Psych affect normal Assessment & Plan Assessment/Plan (1) Acute abdominal pain: (2) Ulcerative colitis: (3) Leukocytosis: (4) Chronic anemia: (5) Hypokalemia: (6) Hypophosphatemia: (7) Severe malnutrition: PLAN: Acute abdominal pain and diarrhea -Patient with recent C. difficile infection -CT of the abdomen pelvis shows no marked change from previous CTs -C. difficile studies pending however this could be just an exacerbation of her ulcerative colitis -Continue vancomycin orally and add IV Flagyl -To remain n.p.o. for now -Care and pain medication -GI consultation-discussed case this morning with Dr. Draper Leukocytosis -May be reactive secondary to inflammation however infectious work-up in progress -Antibiotics as above -Repeat CBC in a.m. Hypokalemia Patient was given both potassium and K-Phos boluses -Repeat potassium in a.m. -Recheck a.m. magnesium level Hypophosphatemia -K-Phos replacement -Repeat Phos level in a.m Chronic normocytic anemia -Counts are stable -Repeat CBC in a.m Severe malnutrition -We will start oral supplementation once p.o is allowed -Dietitian consultation -Would recommend initiation of multivitamin at discharge History of ulcerative colitis -Patient without insurance coverage for medications -Has been on azathioprine previously but this has since been discontinued -Continue dicyclomine and colestipol regimen -? initiation of inpatient Stelara -Dr. Draper from gastroenterology has been consulted History of colon cancer -Status post right hemicolectomy -Considered in remission -Patient with recent colonoscopy 11/27/2021 which showed severe pancolitis/UC -No current issues DVT prophylaxis -SCDs -Start Lovenox CODE STATUS -DNR CCA no intubation
--- NOTE | 2022-03-15 13:38 | PCM.CONS.GEN ---
Assessment & Plan Assessment/Plan (1) C. difficile colitis: PLAN: Diarrhea returned a few days after completing long po vanc taper. On flagyl and po vanc again. CT shows diffuse colitis. Will follow, thank you HPI Consult Data Date of Consult: 03/15/22 HPI Narrative HPI Narrative: JOANN MERRITT, is a 81 F who presented with profuse diarrhea. Has h/o ulcerative colitis. Admitted here in January/February for cdiff colitis, discharged on long po vanc taper. Taper completed a few days ago. She is not sure if she had cdiff prior to that episode. Now admitted, started on po vanc/iv flagyl. Feeling very tired. No fever, abd generally sore, no blood in stool. Full ROS performed and neg except as noted above. [facility] Medical History (Updated 03/15/22 @ 13:[address] Tulio Champagne MD) Arthritis C. difficile colitis Cataract History of colon cancer Seasonal allergies Severe malnutrition Ulcerative colitis Home Medications vancomycin 125 mg PO QODAY 03/14/22 [History Last Taken Unknown] Allergy/AdvReac Type Severity Reaction Status Date / Time Sulfa (Sulfonamide Allergy Rash Verified 02/17/22 13:04 Antibiotics) amoxicillin [From Augmentin] AdvReac Vomiting Verified 02/17/22 13:04 clavulanic acid AdvReac Vomiting Verified 02/17/22 13:04 [From Augmentin] fexofenadine [From Rose] AdvReac Other Verified 02/17/22 13:04 hydrocodone AdvReac out of it Verified 02/17/22 13:04 Family History Mother No problems noted. Grandmother Arthritis Grandfather Arthritis Other Heart disease Surgical History H/O breast biopsy History of appendectomy History of cholecystectomy S/P cholecystectomy S/P partial colectomy Surgical history of tubal ligation Social History household members: family housing: house Smoking Status: Never smoker alcohol intake: never substance use type: does not use what type of physical activity do you participate in: walking frequency: daily Physical Exam Const alert and no apparent distress General Appearance: cooperative Exam Limitations: no limitations HEENT normocephalic and head/scalp atraumatic Eyes PERRL and EOMs intact bilaterally Neck supple and No nodes Resp normal air movement and clear to auscultation bilaterally Cardio regular rate and regular rhythm GI soft to palpation Palpation: tender Extremity no clubbing, cyanosis or edema Skin no rashes or lesions noted Neuro CN's II-XII intact bilaterally Medical Records Data Medical Nutrition Assessment Dietitian: Malnutrition Criteria Met Start: 03/15/22 11:21 Freq: Status: Active Protocol: Document 03/15/22 11:22 [facility] (Rec: 03/15/22 11:22 [facility] [id number]) Nutrition Malnutrition Evidence of Malnutrition Exists Yes Malnutrition (severe): Chronic Evidenced By Suboptimal Energy Intake ( Moderate),Weight Loss (Severe) ,Physical Changes (Moderate) Clinical Problem Chronic Disease or Condition Related Malnutrition Etiology related to altered GI function and issues with ulcerative colitis making it difficult to consume adequate nutrition to meet est nutritional needs Signs/Symptoms as evidenced by decreased po intake, wt loss of 13.2% x 7 months and fat/muscle loss of BUE, face (temporal, orbital, buccal) and clavicle, acromion process Status Active Problem Recommendation Dietitian Recommendations/Changes As medically able, rec MILLIE to Transitional w/ goal of Regular Low Fiber Rec 120 ml ensure enlive 4x/ day w/ medpass when po diet resumes. Lab / Micro Data Result Diagrams: 03/15/22 06:00 03/15/22 06:00 Labs: Laboratory Results - last 24 hr 03/14/22 23:20: Phosphorus 2.2 L, Magnesium 2.0, C-React Prot Ext Range 294.00 H 03/14/22 23:50: WBC 33.5 H*, RBC 4.70, Hgb 13.2, Hct 40.6, MCV 86.4, MCH 28.1, MCHC 32.5, RDW Std Deviation 46.6 H, RDW Coeff of Rhonda 14.6, Plt Count 375, MPV 10.6, Immature Gran % (Auto) 2.500 H, Neut % (Auto) 86.4 H, Lymph % (Auto) 4.9 L, [place] % (Auto) 5.7, Eos % (Auto) 0.1, Baso % (Auto) 0.4, Absolute Neuts (auto) 29.0 H, Absolute Lymphs (auto) 1.64, Nucleated RBC % 0, Diff Path Review February [facility] 03/14/22 23:50: Sodium 136, Potassium 3.1 L, Chloride 99, Carbon Dioxide 30.0, Anion Gap 7, BUN 10, Creatinine 0.85, Estim Creat Clear Calc 40.83, Est GFR (MDRD) Af Amer 83, Est GFR (MDRD) Non-Af 68, BUN/Creatinine Ratio 11.8, Glucose 117 H, Calcium 8.4 L, Total Bilirubin 0.40, AST 11 L, ALT 8 L, Alkaline Phosphatase 120 H, Total Protein 6.9, Albumin 2.4 L, Globulin 4.5 H, Albumin/Globulin Ratio 0.5 L, Lipase 125 03/14/22 23:50: ESR 38 H 03/15/22 00:02: Urine Color Yellow, Urine Clarity Clear, Urine pH 6.0, Ur Specific [place] 1.020, Urine Protein 100 H, Urine Glucose (UA) Normal, Urine Ketones 150 A*, Urine Occult Blood 250 H, Urine Nitrite Negative, Urine Bilirubin 1 H, Urine Urobilinogen Normal, Ur Leukocyte Esterase 100 H, Urine RBC 0-5 SEEN, Urine WBC 0-5 SEEN, Ur Squamous Epith Cells 0-5 SEEN, Urine Bacteria 1+, Urine Mucus 1+ 03/15/22 02:25: Lactic Acid 0.7 03/15/22 06:00: WBC 34.6 H*, RBC 4.13 L, Hgb 11.6 L, Hct 37.1, MCV 89.8, MCH 28.1, MCHC 31.3 L, RDW Std Deviation 47.8 H, RDW Coeff of Rhonda 14.6, Plt Count 323, MPV 10.1, Immature Gran % (Auto) 1.900 H, Neut % (Auto) 85.5 H, Lymph % (Auto) 5.8 L, [place] % (Auto) 6.2, Eos % (Auto) 0.2, Baso % (Auto) 0.4, Absolute Neuts (auto) 29.6 H, Absolute Lymphs (auto) 2.00, Nucleated RBC % 0, Diff Path Review February [facility] 03/15/22 06:00: Sodium 135 L, Potassium 3.4 L, Chloride 102, Carbon Dioxide 24.0, Anion Gap 9, BUN 8, Creatinine 0.59, Estim Creat Clear Calc 33.50, Est GFR (MDRD) Af Amer 125, Est GFR (MDRD) Non-Af 104, BUN/Creatinine Ratio 13.5, Glucose 96, Calcium 7.7 L, Total Bilirubin 0.40, AST 8 L, ALT 8 L, Alkaline Phosphatase 132 H, Total Protein 5.7 L, Albumin 1.9 L, Globulin 3.8, Albumin/Globulin Ratio 0.5 L Radiology Impression Abdomen/Pelvis CT 03/15/22 00:50 IMPRESSION: Diffuse circumferential wall thickening and edema of the entire colon compatible with colitis. No significant change from prior. Patient has a known history of ulcerative colitis. No evidence of bowel obstruction. Postsurgical change of the distal rectosigmoid colon. No evidence of free air or abscess. Electronically Signed: Ryan Maria DO at 4:07 EDT ,
[2022-03-15 17:11] VITALS: BP 101/47; PULSE 75; RESP 16; TEMP 37.4; O2SAT 99
[2022-03-15 22:00] VITALS: BP 110/48; PULSE 79; RESP 16; TEMP 36.8; O2SAT 97
--- NOTE | 2022-03-15 23:00 | CON.PCM_ITS ---
Assessment & Plan Assessment/Plan (1) C. difficile colitis: PLAN: She is on vancomycin therapy. Her subsequent C. difficile PCR quantitative is negative. With her significant leukocytosis it is very difficult to keep her on vancomycin therapy. I recommend to continue vancomycin as she will need to be started on steroid therapy. (2) Severe malnutrition: PLAN: This is likely secondary to chronic ulcerative colitis. Her albumin is 1.7. I think she would benefit from short-term TPN therapy and Remicade therapy in the future if okay with infectious disease. (3) Leukocytosis: PLAN: Leukocytosis possibly secondary to leukemoid reaction. However in the setting of recent C. difficile infection. Hypoalbuminemia, and severe ul cerative colitis it is difficult to determine. (4) Ulcerative colitis: PLAN: I will start methylprednisolone therapy to transition her to Remicade. HPI Consult Data Date of Consult: 03/16/22 HPI Narrative HPI Narrative: JOANN MERRITT, is a 81 F who presents with worsening profuse diarrhea. 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 She came recently when she developed some worsening abdominal pain followed by diarrhea. She came into the ED for evaluation and was discovered to be afebrile. Biochemical analysis had shown severe elevation in her white blood cell count with left shift. She was started back on vancomycin. She has been off of steroids and Vanco for the last 2 weeks. She has been feeling fine up until about 2 days ago when she started having some crampy abdominal pain and looser stools. Joann initially presented to [facility] ED 08.10.21 for an episode of weakness and syncope. I was consulted 08.11.21 for management of diarrhea. She has a history of ulcerative colitis with a historical use of steroids and maintained on mesalamine at presentation. She was discharged 08.12.21 after conservative therapy with Steroids. Presented to [facility] ED 11.23.21 with feelings of lightheadedness and syncope. I consulted same day for management of GIB, diarrhea, leukocytosis. Colonoscopy performed 11.27.21 and subsequently diagnosed with exacerbation of previously diagnosed UC. She was treated with vancomycin, colestipol and Imuran. She was discharged 11.29.21. CT abd/pel 11.23.21 finding a somewhat collapsed gallbladder; multiple splenic punctate calcifications from prior granulomatous infection; moderate diffuse mural hyperenhancement throughout majority of colon with descending colon most notably involved; cecum, ascending and transverse colon showed mild wall thickening and mural stratification. Colonoscopy 11.27.21 severe pancolitis UC (Hunter Score 3); congested mucosa in distal ileum and terminal ileum. Biopsy results consistent with UC without dysplasia. Treated with vancomycin, Imuran, colestipol. Stool studies for enteric pathogens and C.Difficile taken during that hospital admission. C. difficile positive and started on treatment. 12.08.21: Ulcerative colitis ? hopeful to start Stelara in the future as an outpatient. 01.27.22 She reported that she is feeling like her stomach is cramping intermittently followed by episodes of urgent watery and bloody diarrhea in small amounts. This is happening of varying during each day of the week. Does not have issues with this during the night. Denies identification of triggers. Has attempted eliminating things for a couple of days with no change. Denies anxiety or depressive symptoms, thought she is distraught regarding her current symptoms. She continues to take azathioprine 100mg and colestipol 2g QD with no effect. She has not been taking prednisone. 01.28.22 admitted to the hospital and was identified as having C. difficile colitis. She was given a 6-week taper of vancomycin 125 mg 4 times a day [address] way down to 125 mg once a day. 03.15.22 she presented back to the ED with abdominal pain that has been getting worse over the last couple days. Patient is in the process of weaning off antibiotics for her ulcerative colitis. Patient states this feels similar to prior flareup of her ulcerative colitis. Patient states nothing makes her pain better and nothing makes it worse. Patient states her pain is mainly in the left lower quadrant. Patient admits to nausea but denies any vomiting. Patient admits to diarrhea but denies any melena or hematochezia. Patient denies any urinary complaints. CT scan of abdomen pelvis - diffuse circumferential wall thickening and edema of the entire colon compatible with colitis. No significant change from prior. Patient has a known history of ulcerative colitis. No evidence of bowel obstruction. Postsurgical change of the distal rectosigmoid colon. No evidence of free air or abscess. [facility] Medical History (Updated 03/15/22 @ 13:[address] Tulio Champagne MD) Arthritis C. difficile colitis Cataract History of colon cancer Seasonal allergies Severe malnutrition Ulcerative colitis Home Medications vancomycin 125 mg PO QODAY 03/14/22 [History Last Taken Unknown] Allergy/AdvReac Type Severity Reaction Status Date / Time Sulfa (Sulfonamide Allergy Rash Verified 02/17/22 13:04 Antibiotics) amoxicillin [From Augmentin] AdvReac Vomiting Verified 02/17/22 13:04 clavulanic acid AdvReac Vomiting Verified 02/17/22 13:04 [From Augmentin] fexofenadine [From Rose] AdvReac Other Verified 02/17/22 13:04 hydrocodone AdvReac out of it Verified 02/17/22 13:04 Family History Mother No problems noted. Grandmother Arthritis Grandfather Arthritis Other Heart disease Surgical History H/O breast biopsy History of appendectomy History of cholecystectomy S/P cholecystectomy S/P partial colectomy Surgical history of tubal ligation Social History household members: family housing: house Smoking Status: Never smoker alcohol intake: never substance use type: does not use what type of physical activity do you participate in: walking frequency: daily ROS Review of Systems ROS Unobtainable: other Constitutional Constitutional: Denies fatigue, fever(s), poor appetite, weight gain or weight loss ENT HEENT: Denies mouth lesions Cardiovascular Cardiovascular: Denies abdominal bloating, abdominal edema or abdominal pain Respiratory/Chest Respiratory/Chest: Denies change in mental status, change in phlegm color, chest congestion or chest tightness Gastrointestinal Gastrointestinal: Denies belching, bloating, change in bowel habits, change in stool character, chewing difficulty, coffee ground emesis, constipation, cramping, diarrhea, dyspepsia, dysphagia, early satiety, excessive flatus, fecal incontinence, heartburn, hematemesis, hematochezia, hemorrhoids, loose stools, melena, nausea, odynophagia, rectal bleeding, tenesmus, vomiting or weight changes Genitourinary Genitourinary: Denies abdominal discomfort, burning urination or itching Musculoskeletal Musculoskeletal: Reports as per HPI; Denies muscle weakness or myalgias Integumentary Integumentary: Denies jaundice Neurologic Neurologic: Denies lack of coordination or weakness Psychiatric Psychiatric: Denies confusion, depression, memory loss, mood swings, paranoia or suicidal ideation Endocrine Endocrinology: Denies systems reviewed and no addt'l complaints, except as documented Hematologic/Lymphatic Hematologic/Lymphatic: Denies anemia, easy bleeding, easy bruising or lymphadenopathy Allergic/Immunologic Allergic/Immunologic: Denies systems reviewed and no addt'l complaints, except as documented Physical Exam Const alert General Appearance: cooperative Orientation / Consciousness: oriented to person HEENT hearing grossly normal bilaterally Head and Scalp: normal to inspection Face and Sinus: face symmetric Nose: external nose normal Mouth: oral and palatal mucosa normal Eyes conjunctivae normal General Eye: normal appearance of both eyes Neck full ROM General: normal visual inspection Lymph Lymphatic: no lymphadenopathy noted Chest inspection of chest normal and palpation of chest normal Chest: symmetrical chest wall rise Resp normal respiratory effort Effort and Inspection: able to speak in complete sentences Cardio regular rate GI non-distended Percussion: normal to percussion Rectal Exam: deferred Neuro Speech: speech normal Gait (Neuro): normal gait Medical Records Data Medical Nutrition Assessment Dietitian: Malnutrition Criteria Met Start: 03/15/22 11:21 Freq: Status: Active Protocol: Document 03/15/22 11:22 JAROD (Rec: 03/15/22 11:22 [facility] [id number]) Nutrition Malnutrition Evidence of Malnutrition Exists Yes Malnutrition (severe): Chronic Evidenced By Suboptimal Energy Intake ( Moderate),Weight Loss (Severe) ,Physical Changes (Moderate) Clinical Problem Chronic Disease or Condition Related Malnutrition Etiology related to altered GI function and issues with ulcerative colitis making it difficult to consume adequate nutrition to meet est nutritional needs Signs/Symptoms as evidenced by decreased po intake, wt loss of 13.2% x 7 months and fat/muscle loss of BUE, face (temporal, orbital, buccal) and clavicle, acromion process Status Active Problem Recommendation Dietitian Recommendations/Changes As medically able, rec MILLIE to Transitional w/ goal of Regular Low Fiber Rec 120 ml ensure enlive 4x/ day w/ medpass when po diet resumes. Lab / Micro Data Result Diagrams: 03/16/22 06:15 03/16/22 06:15 Labs: Laboratory Results - last 24 hr 03/16/22 06:15: WBC 34.1 H*, RBC 3.68 L, Hgb 10.4 L, Hct 32.7 L, MCV 88.9, MCH 28.3, MCHC 31.8 L, RDW Std Deviation 47.8 H, RDW Coeff of Rhonda 14.8 H, Plt Count 340, MPV 9.9, Immature Gran % (Auto) 2.100 H, Neut % (Auto) 86.9 H, Lymph % (Auto) 5.2 L, [place] % (Auto) 5.0, Eos % (Auto) 0.4, Baso % (Auto) 0.4, Absolute Neuts (auto) 29.7 H, Absolute Lymphs (auto) 1.78, Nucleated RBC % 0, Differential Comment SCANNED, Diff Path Review February03/16/22 06:15: Sodium 141, Potassium 2.9 L, Chloride 109 H, Carbon Dioxide 18.0 L, Anion Gap 14, BUN 7, Creatinine 0.54 L, Estim Creat Clear Calc 35.49, Est GFR (MDRD) Af Amer 138, Est GFR (MDRD) Non-Af 114, BUN/Creatinine Ratio 12.8, Glucose 62 L, Calcium 7.7 L, Total Bilirubin 0.30, AST 7 L, ALT < 6 L, Alkaline Phosphatase 92, Total Protein 5.3 L, Albumin 1.7 L, Globulin 3.6, Albumin/Globulin Ratio 0.5 L Micro: Microbiology 03/15/22 14:27 Stool C. difficile DNA Amplification - Final 03/15/22 14:27 Stool Stool Lactoferrin - Final 03/15/22 14:27 Stool Enteric Bacteriology - Final Charges/Coding Visit Charges Inpatient E&M: 28663 Init Hosp L3
[2022-03-16 00:30] VITALS: O2SAT 97
[2022-03-16] MEDS: Vancomycin 125 MG/5 ML Susp PO.SYRINGE 500 MG PO ×2 (00:34→05:54)
[2022-03-16 04:00] VITALS: BP 117/47; PULSE 78; RESP 16; TEMP 36.3; O2SAT 97
[2022-03-16] MEDS: metroNIDAZOLE 500 MG/100 ML BAG 100 MG IV (05:52)
[2022-03-16 06:32] LABS: Absolute Lymphocyte Count 1.78 X10^3/uL (0.83-4.51); Absolute Neutrophil Count 29.7 X10^3/uL (2.0-7.7); Basophil# 0.12 X10^3/uL; Basophil% 0.4 % (0-1); Eosinophil# 0.13 X10^3/uL; Eosinophils% 0.4 % (0-5); Hematocrit 32.7 % (37-47); Hemoglobin 10.4 g/dL (12.0-15.0); Lymphocyte # 1.78 X10^3/ul (0.83-4.51); Lymphocyte % 5.2 % (19-41); Mean Corp Hgb Conc 31.8 g/dL (32-36); Mean Corpuscular Hgb 28.3 pg (27.0-32.0); Mean Corpuscular Volume 88.9 fL (81-99); Mean Platelet Vol. 9.9 fl (6.2-12.0); NRBC Flagged by Analyzer 0 % (0-5); Neutrophil # 29.66 X10^3/uL (2.7-7.7); Neutrophil % 86.9 % (47-70); POSITIVE COUNT YES; POSITIVE DIFFERENTIAL YES; Platelet Count 340 K/mm3 (150-450); RBC Distribution Width CV 14.8 % (11.6-14.6); RBC Distribution Width SD 47.8 fl (35.1-43.9); Red Blood Count 3.68 M/mm3 (4.2-5.4)
[2022-03-16 06:47] LABS: Differential Indicated SCAN CRITERIA MET; White Blood Count 34.1 K/mm3 (4.4-11.0)
[2022-03-16 07:01] LABS: Differential Comment SCANNED
[2022-03-16 07:11] LABS: ALB/GLOB Ratio 0.5 RATIO (0.9-2.4); AST(SGOT) 7 U/L (15-37); Alanine Aminotransfer ALT/SGPT < 6 U/L (13-56); Albumin, Serum 1.7 g/dL (3.2-5.0); Alkaline Phosphatase 92 U/L (45-117); Anion Gap 14 (5-15); BUN 7 mg/dL (7-18); BUN/Creat Ratio 12.8 RATIO (10-20); Calcium,Total 7.7 mg/dL (8.5-10.1); Chloride 109 mmol/L (98-107); Creatinine, Serum 0.54 mg/dL (0.55-1.02); EST Glomerular Filtration Rate 114 mL/min (>60); Est Glom Filt Rate - Afr Amer 138 mL/min (>60); Estimated Creatinine Clearance 35.49 ml/min; Globulin 3.6 g/dL (2.2-4.2); Glucose 62 mg/dL (74-106); Potassium 2.9 mmol/L (3.5-5.1); Protein, Total 5.3 g/dL (6.4-8.2); Sodium Level 141 mmol/L (136-145)
[2022-03-16 07:30] VITALS: O2SAT 95
[2022-03-16] MEDS: Potassium Chloride 10mEq/100mL 10 MEQ/100 ML IV.SOLN. 80 MEQ IV BOLUS ×4 (08:29→12:57)
[2022-03-16] MEDS: Dextrose 5%-Lactated Ringers 1,000 ML 75 ML IV (08:30)
[2022-03-16 08:35] VITALS: BP 115/52; PULSE 79; RESP 17; TEMP 37; O2SAT 96
[2022-03-16] MEDS: Enoxaparin 40 MG/0.4 ML Syringe SC (09:47)
--- NOTE | 2022-03-16 10:11 | PCM.PN.ID ---
Physical Exam Narrative Still with diarrhea, abd soreness. No fever. Const alert and no apparent distress General Appearance: cooperative Resp normal air movement and clear to auscultation bilaterally Cardio regular rate and regular rhythm GI soft to palpation, non-tender and non-distended Skin no rashes or lesions noted ID ID: Route of nutrition/ use of supplements: [] Nutritional Intake: [] IV Site: [] Ellsworth Catheter: [] Assessment & Plan Assessment/Plan (1) C. difficile colitis: PLAN: Diarrhea returned a few days after completing long po vanc taper. CT shows diffuse colitis. H/o ulcerative colitis. GI has seen, on iv steroids. Will stop flagyl, cont po vanc at 125mg 4x/day. Will follow
[2022-03-16] MEDS: 0.9% Saline Lock 10 ML Syringe IV ×2 (11:32→18:36)
[2022-03-16] MEDS: Vancomycin 125 MG/5 ML Susp PO.SYRINGE PO ×2 (11:32→18:44)
--- NOTE | 2022-03-16 13:00 | CASEMGMT ---
Social Work Note JUAN updated that pt's granddaughter Chris would like to speak to this worker about TCU. JUAN placed a call to Allyson with TCU, TCU would have a bed available and they do take TPN. Allyson states she would just need to review TPN. JUAN in to speak with pt and pt's granddaughter Chris. Chris asking if pt would qualify and if pt could go to TCU. SW informed Chris that TCU does have a bed available and they do take TPN. JUAN spoke with how it may be a problem with pt's infusion. Chris states pt would be discharged before the next date of her infusion. Chris was provided a list of SNF providers including quality and resource use data and consistent with the patient?s preferred geographic region, medical needs, and insurance network. Chris and pt agreeable to TCU. Plan: TCU [facility] RESERVE OFFICER, [employer]
[2022-03-16 13:09] LABS: Pathologist Review Reviewed
[2022-03-16 13:10] LABS: Pathologist Review Reviewed
[2022-03-16 13:13] LABS: Pathologist Review Reviewed
[2022-03-16 13:18] LABS: Anion Gap 12 (5-15); BUN 6 mg/dL (7-18); BUN/Creat Ratio 11.3 RATIO (10-20); Calcium,Total 7.8 mg/dL (8.5-10.1); Chloride 109 mmol/L (98-107); Creatinine, Serum 0.53 mg/dL (0.55-1.02); EST Glomerular Filtration Rate 117 mL/min (>60); Est Glom Filt Rate - Afr Amer 142 mL/min (>60); Estimated Creatinine Clearance 35.49 ml/min; Glucose 88 mg/dL (74-106); Potassium 3.5 mmol/L (3.5-5.1); Sodium Level 139 mmol/L (136-145)
--- NOTE | 2022-03-16 14:04 | PN.HOSP_ITS ---
Subjective Subjective Stooling is better. Steroids started overnight. Patient still with diffuse abdominal pain which appears to be chronic for her. She states she really feels poorly but close to her baseline. P.o. intake has not been allowed yet. C. difficile was negative. Objective Data Objective Data Vital Signs: Vital Signs Temp Pulse Resp BP Pulse Ox 98.6 F 79 17 115/52 L 96 03/16/22 08:35 03/16/22 08:35 03/16/22 08:35 03/16/22 08:35 03/16/22 08:35 Oxygen Delivery Method Room Air Weight: 52.889 kg Body Mass Index (BMI) 19.1 Intake & Output: Intake and Output for Last 24 Hours 03/14/22 03/15/22 03/16/22 23:59 23:59 23:59 Intake Total 3450.75 / 3450.75 1650 / 1650 Output Total 500 / 500 0 / 0 Balance 2950.75 / 2950.75 1650 / 1650 Medical Nutrition Assessment Dietitian: Malnutrition Criteria Met Start: 03/15/22 11:21 Freq: Status: Active Protocol: Document 03/16/22 12:06 (Rec: 03/16/22 12:06 [id number]) Nutrition Malnutrition Evidence of Malnutrition Exists Yes Malnutrition (severe): Chronic Evidenced By Suboptimal Energy Intake ( Severe),Weight Loss (Severe), Physical Changes (Moderate) Clinical Problem Chronic Disease or Condition Related Malnutrition Etiology severe, chronic malnutrition r /t inadequate energy intake d/ t GI dysfunction Signs/Symptoms as evidenced by unintentional wt loss of 7.131kg/13% x 7 months; estimated PO intake meeting <75% of estimated energy needs >3 months; moderate muscle wasting/fat loss per physical exam Status Active Problem Recommendation Dietitian Recommendations/Changes 1) For Day #1 TPN: 1L 8%AA/14% dextrose Clinimix E w/ electrolytes, MVI, trace minerals, folic acid at 42mL/ hour to provide 798 calories, 80 g protein. No insulin or famotidine per provider order. 2) Close monitoring of wts, labs. 3) NPO- will d/c Ensure Enlive at this time. Lab / Micro Data Result Diagrams: 03/16/22 06:15 03/16/22 12:55 Labs: Laboratory Results - last 24 hr 03/14/22 23:50: Diff Path Review Reviewed 03/15/22 06:00: Diff Path Review Reviewed 03/16/22 06:15: WBC 34.1 H*, RBC 3.68 L, Hgb 10.4 L, Hct 32.7 L, MCV 88.9, MCH 28.3, MCHC 31.8 L, RDW Std Deviation 47.8 H, RDW Coeff of Rhonda 14.8 H, Plt Count 340, MPV 9.9, Immature Gran % (Auto) 2.100 H, Neut % (Auto) 86.9 H, Lymph % (Auto) 5.2 L, [place] % (Auto) 5.0, Eos % (Auto) 0.4, Baso % (Auto) 0.4, Absolute Neuts (auto) 29.7 H, Absolute Lymphs (auto) 1.78, Nucleated RBC % 0, Diffe rential Comment SCANNED, Diff Path Review Reviewed 03/16/22 06:15: Sodium 141, Potassium 2.9 L, Chloride 109 H, Carbon Dioxide 18.0 L, Anion Gap 14, BUN 7, Creatinine 0.54 L, Estim Creat Clear Calc 35.49, Est GFR (MDRD) Af Amer 138, Est GFR (MDRD) Non-Af 114, BUN/Creatinine Ratio 12.8, Glucose 62 L, Calcium 7.7 L, Total Bilirubin 0.30, AST 7 L, ALT < 6 L, Alkaline Phosphatase 92, Total Protein 5.3 L, Albumin 1.7 L, Globulin 3.6, Al bumin/Globulin Ratio 0.5 L 03/16/22 12:55: Sodium 139, Potassium 3.5, Chloride 109 H, Carbon Dioxide 18.0 L , Anion Gap 12, BUN 6 L, Creatinine 0.53 L, Estim Creat Clear Calc 35.49, Est GFR (MDRD) Af Amer 142, Est GFR (MDRD) Non-Af 117, BUN/Creatinine Ratio 11.3, Glucose 88, Calcium 7.8 L Micro: Microbiology 03/15/22 14:27 Stool C. difficile DNA Amplification - Final 03/15/22 14:27 Stool Stool Lactoferrin - Final 03/15/22 14:27 Stool Enteric Bacteriology - Final Physical Exam Const alert, oriented x3 and no apparent distress Constitutional Narrative: Thin, elderly white female lying in bed, appears tired but nontoxic, very pleasant and appropriately interactive Exam Limitations: no limitations Nutritional Appearance: thin HEENT head/scalp atraumatic and moist oral mucous membranes Head and Scalp: normocephalic Resp normal respiratory effort, no retractions, no use of accessory muscles and clear to auscultation bilaterally Auscultation: Negative for crackles, rales, rhonchi or wheezes Cardio regular rate, regular rhythm, S1 normal heart sound, S2 normal heart sound, no murmurs, no rub, no gallops, no clicks and no JVD GI normal to inspection, nondistended, normoactive bowel sounds, soft to palpation and non-distended; Negative for hepatosplenomegaly GI Narrative: Diffuse nonspecific tenderness Palpation: tender Extremity no clubbing, cyanosis or edema Peripheral Pulses: Yes pulses 2+ throughout Neuro oriented x3, moves all extremities and no focal motor deficits Neuro Narrative: Generalized weakness Sensorium / Orientation: awake and alert Speech: speech normal Assessment & Plan Assessment/Plan (1) Acute abdominal pain: (2) Ulcerative colitis: (3) Leukocytosis: (4) Chronic anemia: (5) Hypokalemia: (6) Hypophosphatemia: (7) Severe malnutrition: PLAN: Acute abdominal pain and diarrhea -Patient with recent C. difficile infection -C. difficile PCR is negative -CT of the abdomen pelvis shows no marked change from previous CTs -C. difficile studies pending however this could be just an exacerbation of her ulcerative colitis -Continue p.o. vancomycin and Flagyl was discontinued by infectious disease -Continue n.p.o. status -Anticipate this is most likely related to an acute Crohn's flare Leukocytosis -May be reactive secondary to inflammation however infectious [facility] -Slight trend down -Blood cultures remain pending -Antibiotics as above -Check CL[place]ON smear -Repeat CBC in a.m. -Consider hematology input if remains elevated -Appreciate ID input Hypokalemia -Repeat potassium bolus -Recheck in a.m. Hypophosphatemia -K-Phos replacement -Repeat Phos level in a.m Hypoglycemia -Blood sugar was 62 this morning -We will change IV fluids to D5 LR with a decrease rate to 75 cc/h -Blood sugars will be assessed every 6 hours initially with TPN -We will discontinue blood sugar protocol if blood sugars are stable for 48 hours on TPN Chronic normocytic anemia -Counts are down some but patient has received significant IV fluids -Repeat CBC in a.m Severe malnutrition -PICC placement -TPN to initiate today--> would continue TPN for at least 7 days to boost nutritional status even if p.o. intake is able to be initiated -Dietitian following -Add supplements once p.o. intake has been improved Debility -With severe malnourishment and overall medical status patient's strength has declined -Continue PT/OT -Recommendation for placement at discharge -Patient will be discharged to TCU when she is medically stable History of ulcerative colitis -Patient without insurance coverage for medications -Gregoria with Dr. Draper and Remicade will be able to be initiated here and then outpatient follow-up at the infusion center -Has been on azathioprine previously but this has since been discontinued -Continue dicyclomine and colestipol regimen -IV steroids were started last evening and patient will need 48 hours of IV steroids prior to Remicade initiation -Dr. Draper is following History of colon cancer -Status post right hemicolectomy -Considered in remission -Patient with recent colonoscopy 11/27/2021 which showed severe pancolitis/UC -No current issues DVT prophylaxis -SCDs -Continue CODE STATUS -DNR CCA no intubation Charges/Coding Visit Charges Inpatient E&M: 86891 Subs Hosp L2
[2022-03-16 14:34] VITALS: BP 117/61; PULSE 67; RESP 17; TEMP 37; O2SAT 95
--- NOTE | 2022-03-16 14:36 | CASEMGMT ---
AMARJIT MEHTA chart: Patient was admitted 02/03/22-02/13/22 for acute exacerbation of ulcerative colitis and c-diff. See RN CM assessment from 02/04/22. Patient was discharged to home with [facility] and PO Vancomycin. Patient followed up with PCP on 02/17/22. Patient is scheduled to see Dr. Draper GI on 03/17/22 and 04/21/22. Patient returned 03/15/22 for abdominal pain, recent c-diff, enterocolitis, and UC flare. Stool came back negative for C-diff. Patient to receive IV steroids and TPN. Updated by that patient wishes to discharge to TCU when medically ready. Dr. Draper consulted. CM to continue to follow this patient and plan for a safe discharge.
--- NOTE | 2022-03-16 16:31 | PN_ITS ---
Subjective Subjective She seems a little depressed today. She has not been eating much except for ice chips. Her nausea is better. She is only had a couple episodes of crampy abdominal pain. She has had 2 bowel movements today. Objective Data Objective Data Vital Signs: Vital Signs Temp Pulse Resp BP Pulse Ox 98.6 F 67 17 117/61 95 03/16/22 14:34 03/16/22 14:34 03/16/22 14:34 03/16/22 14:34 03/16/22 14:34 Oxygen Delivery Method Room Air Weight: 116 lb 9.6 oz Body Mass Index (BMI) 19.1 Intake & Output: Intake and Output for Last 24 Hours 03/14/22 03/15/22 03/16/22 23:59 23:59 23:59 Intake Total 3450.75 / 3450.75 1750 / 1750 Output Total 500 / 500 0 / 0 Balance 2950.75 / 2950.75 1750 / 1750 Medical Nutrition Assessment Dietitian: Malnutrition Criteria Met Start: 03/15/22 11:21 Freq: Status: Active Protocol: Document 03/16/22 12:06 (Rec: 03/16/22 12:06 [id number]) Nutrition Malnutrition Evidence of Malnutrition Exists Yes Malnutrition (severe): Chronic Evidenced By Suboptimal Energy Intake ( Severe),Weight Loss (Severe), Physical Changes (Moderate) Clinical Problem Chronic Disease or Condition Related Malnutrition Etiology severe, chronic malnutrition r /t inadequate energy intake d/ t GI dysfunction Signs/Symptoms as evidenced by unintentional wt loss of 7.131kg/13% x 7 months; estimated PO intake meeting <75% of estimated energy needs >3 months; moderate muscle wasting/fat loss per physical exam Status Active Problem Recommendation Dietitian Recommendations/Changes 1) For Day #1 TPN: 1L 8%AA/14% dextrose Clinimix E w/ electrolytes, MVI, trace minerals, folic acid at 42mL/ hour to provide 798 calories, 80 g protein. No insulin or famotidine per provider order. 2) Close monitoring of wts, labs. 3) NPO- will d/c Ensure Enlive at this time. Lab / Micro Data Result Diagrams: 03/16/22 06:15 03/16/22 12:55 Labs: Laboratory Results - last 24 hr 03/14/22 23:50: Diff Path Review Reviewed 03/15/22 06:00: Diff Path Review Reviewed 03/16/22 06:15: WBC 34.1 H*, RBC 3.68 L, Hgb 10.4 L, Hct 32.7 L, MCV 88.9, MCH 28.3, MCHC 31.8 L, RDW Std Deviation 47.8 H, RDW Coeff of Rhonda 14.8 H, Plt Count 340, MPV 9.9, Immature Gran % (Auto) 2.100 H, Neut % (Auto) 86.9 H, Lymph % (Auto) 5.2 L, [place] % (Auto) 5.0, Eos % (Auto) 0.4, Baso % (Auto) 0.4, Absolute Neuts (auto) 29.7 H, Absolute Lymphs (auto) 1.78, Nucleated RBC % 0, Differential Comment SCANNED, Diff Path Review Reviewed 03/16/22 06:15: Sodium 141, Potassium 2.9 L, Chloride 109 H, Carbon Dioxide 18.0 L, Anion Gap 14, BUN 7, Creatinine 0.54 L, Estim Creat Clear Calc 35.49, Est GFR (MDRD) Af Amer 138, Est GFR (MDRD) Non-Af 114, BUN/Creatinine Ratio 12.8, Glucose 62 L, Calcium 7.7 L, Total Bilirubin 0.30, AST 7 L, ALT < 6 L, Alkaline Phosphatase 92, Total Protein 5.3 L, Albumin 1.7 L, Globulin 3.6, Albumin/Globulin Ratio 0.5 L 03/16/22 12:55: Sodium 139, Potassium 3.5, Chloride 109 H, Carbon Dioxide 18.0 L , Anion Gap 12, BUN 6 L, Creatinine 0.53 L, Estim Creat Clear Calc 35.49, Est GFR (MDRD) Af Amer 142, Est GFR (MDRD) Non-Af 117, BUN/Creatinine Ratio 11.3, Glucose 88, Calcium 7.8 L Micro: Microbiology 03/15/22 14:27 Stool C. difficile DNA Amplification - Final 03/15/22 14:27 Stool Stool Lactoferrin - Final 03/15/22 14:27 Stool Enteric Bacteriology - Final Physical Exam Const alert General Appearance: cooperative Orientation / Consciousness: oriented to person HEENT hearing grossly normal bilaterally Head and Scalp: normal to inspection Face and Sinus: face symmetric Nose: external nose normal Mouth: oral and palatal mucosa normal Eyes conjunctivae normal General Eye: normal appearance of both eyes Neck full ROM General: normal visual inspection Lymph Lymphatic: no lymphadenopathy noted Chest inspection of chest normal and palpation of chest normal Chest: symmetrical chest wall rise Resp normal respiratory effort Effort and Inspection: able to speak in complete sentences Cardio regular rate GI non-distended Percussion: normal to percussion Rectal Exam: deferred Neuro Speech: speech normal Gait (Neuro): normal gait Assessment & Plan Assessment/Plan (1) C. difficile colitis: PLAN: Her latest C. difficile PCR RNA quant was negative. I think she is to continue vancomycin while she is getting steroid therapy due to severe malnutrition as prophylaxis for recurrent C. difficile colitis. (2) Severe malnutrition: PLAN: I agree with TPN for the short-term so she can increase in her nutrition. Her prognosis depends on improving her nutrition as well as inflammatory spine secondary to also colitis throughout her entire colon. (3) Ulcerative colitis: PLAN: Continue methylprednisolone therapy 40 mg IV every 6 hours. The plan is to transition to Remicade therapy. Charges/Coding Visit Charges Inpatient E&M: 15085 Subs Hosp L3
[2022-03-16] MEDS: TPN - Clinimix E 8%-14% Soln 2,000 ML with Multivitamins 10 ML, Trace Elements 1 ML, Fo... 42 ML IV (18:36)
[2022-03-16 20:15] VITALS: BP 109/57; PULSE 72; RESP 16; TEMP 36.9; O2SAT 95
[2022-03-17] MEDS: 0.9% Saline Lock 10 ML Syringe IV ×6 (00:41→23:29)
[2022-03-17] MEDS: Vancomycin 125 MG/5 ML Susp PO.SYRINGE PO ×5 (00:41→23:17)
[2022-03-17 01:51] LABS: Bedside Glucose 347 mg/dL (74-106)
[2022-03-17 02:15] VITALS: BP 116/63; PULSE 56; RESP 16; TEMP 36.4; O2SAT 96
[2022-03-17] MEDS: Insulin Lispro 100 UNIT/ML INSULN.PEN SC ×4 (05:47→23:18)
[2022-03-17 06:40] LABS: Bedside Glucose 350 mg/dL (74-106)
[2022-03-17 06:43] LABS: Absolute Lymphocyte Count 0.96 X10^3/uL (0.83-4.51); Absolute Neutrophil Count 16.7 X10^3/uL (2.0-7.7); Basophil# 0.05 X10^3/uL; Basophil% 0.3 % (0-1); Hematocrit 34.6 % (37-47); Hemoglobin 10.7 g/dL (12.0-15.0); Lymphocyte # 0.96 X10^3/ul (0.83-4.51); Lymphocyte % 5.2 % (19-41); Mean Corp Hgb Conc 30.9 g/dL (32-36); Mean Corpuscular Hgb 27.6 pg (27.0-32.0); Mean Corpuscular Volume 89.4 fL (81-99); Mean Platelet Vol. 10.2 fl (6.2-12.0); Monocyte% 1.6 % (0-10); NRBC Flagged by Analyzer 0 % (0-5); Neutrophil # 16.74 X10^3/uL (2.7-7.7); Platelet Count 346 K/mm3 (150-450); RBC Distribution Width CV 14.7 % (11.6-14.6); RBC Distribution Width SD 48.2 fl (35.1-43.9); Red Blood Count 3.87 M/mm3 (4.2-5.4); White Blood Count 18.4 K/mm3 (4.4-11.0)
[2022-03-17 07:11] LABS: ALB/GLOB Ratio 0.4 RATIO (0.9-2.4); AST(SGOT) 4 U/L (15-37); Alanine Aminotransfer ALT/SGPT < 6 U/L (13-56); Albumin, Serum 1.6 g/dL (3.2-5.0); Alkaline Phosphatase 94 U/L (45-117); Anion Gap 7 (5-15); BUN 12 mg/dL (7-18); BUN/Creat Ratio 16.4 RATIO (10-20); Calcium,Total 7.9 mg/dL (8.5-10.1); Chloride 110 mmol/L (98-107); Creatinine, Serum 0.73 mg/dL (0.55-1.02); EST Glomerular Filtration Rate 81 mL/min (>60); Est Glom Filt Rate - Afr Amer 98 mL/min (>60); Estimated Creatinine Clearance 35.49 ml/min; Globulin 3.7 g/dL (2.2-4.2); Glucose 350 mg/dL (74-106); Magnesium 2.3 mg/dL (1.6-2.6); Phosphorus 1.2 mg/dL (2.5-4.9); Potassium 3.7 mmol/L (3.5-5.1); Protein, Total 5.3 g/dL (6.4-8.2); Sodium Level 138 mmol/L (136-145); Triglycerides 50 mg/dL
[2022-03-17 08:15] VITALS: BP 119/68; PULSE 55; RESP 18; TEMP 36.4; O2SAT 95
[2022-03-17 09:02] VITALS: O2SAT 95
[2022-03-17] MEDS: Enoxaparin 40 MG/0.4 ML Syringe SC (09:27)
[2022-03-17] MEDS: Insulin Glargine-YFGN 100 UNIT/ML Pen 10 UNIT SC (11:53)
--- NOTE | 2022-03-17 11:57 | PN_ITS ---
Subjective Subjective She is doing a little better today. She still is having abdominal pain. She did have 1 small her stool overnight. She denies any bleeding per rectum Objective Data Objective Data Vital Signs: Vital Signs Temp Pulse Resp BP Pulse Ox 97.6 F L 55 L 18 119/68 95 03/17/22 08:15 03/17/22 08:15 03/17/22 08:15 03/17/22 08:15 03/17/22 09:02 Oxygen Delivery Method Room Air Weight: 116 lb 6.465 oz Body Mass Index (BMI) 19.1 Intake & Output: Intake and Output for Last 24 Hours 03/15/22 03/16/22 03/17/22 23:59 23:59 23:59 Intake Total 3450.75 / 3450.75 2440 / 2440 1000 / 1000 Output Total 500 / 500 0 / 0 Balance 2950.75 / 2950.75 2440 / 2440 1000 / 1000 Medical Nutrition Assessment Dietitian: Malnutrition Criteria Met Start: 03/15/22 11:21 Freq: Status: Active Protocol: Document 03/16/22 12:06 (Rec: 03/16/22 12:06 [id number]) Nutrition Malnutrition Evidence of Malnutrition Exists Yes Malnutrition (severe): Chronic Evidenced By Suboptimal Energy Intake ( Severe),Weight Loss (Severe), Physical Changes (Moderate) Clinical Problem Chronic Disease or Condition Related Malnutrition Etiology severe, chronic malnutrition r /t inadequate energy intake d/ t GI dysfunction Signs/Symptoms as evidenced by unintentional wt loss of 7.131kg/13% x 7 months; estimated PO intake meeting <75% of estimated energy needs >3 months; moderate muscle wasting/fat loss per physical exam Status Active Problem Recommendation Dietitian Recommendations/Changes 1) For Day #1 TPN: 1L 8%AA/14% dextrose Clinimix E w/ electrolytes, MVI, trace minerals, folic acid at 42mL/ hour to provide 798 calories, 80 g protein. No insulin or famotidine per provider order. 2) Close monitoring of wts, labs. 3) NPO- will d/c Ensure Enlive at this time. Lab / Micro Data Result Diagrams: 03/17/22 06:20 03/17/22 06:20 Labs: Laboratory Results - last 24 hr 03/14/22 23:50: Diff Path Review Reviewed 03/15/22 06:00: Diff Path Review Reviewed 03/16/22 06:15: Diff Path Review Reviewed 03/16/22 12:55: Sodium 139, Potassium 3.5, Chloride 109 H, Carbon Dioxide 18.0 L , Anion Gap 12, BUN 6 L, Creatinine 0.53 L, Estim Creat Clear Calc 35.49, Est GFR (MDRD) Af Amer 142, Est GFR (MDRD) Non-Af 117, BUN/Creatinine Ratio 11.3, Glucose 88, Calcium 7.8 L 03/17/22 01:44: POC Glucose 347 H 03/17/22 05:39: POC Glucose 350 H 03/17/22 06:20: WBC 18.4 H, RBC 3.87 L, Hgb 10.7 L, Hct 34.6 L, MCV 89.4, MCH 27.6, MCHC 30.9 L, RDW Std Deviation 48.2 H, RDW Coeff of Rhonda 14.7 H, Plt Count 346, MPV 10.2, Immature Gran % (Auto) 1.900 H, Neut % (Auto) 91.0 H, Lymph % (Auto) 5.2 L, [place] % (Auto) 1.6, Eos % (Auto) 0.0, Baso % (Auto) 0.3, Absolute Neuts (auto) 16.7 H, Absolute Lymphs (auto) 0.96, Nucleated RBC % 0 03/17/22 06:20: Sodium 138, Potassium 3.7, Chloride 110 H, Carbon Dioxide 21.0, Anion Gap 7, BUN 12, Creatinine 0.73, Estim Creat Clear Calc 35.49, Est GFR (MDRD) Af Amer 98, Est GFR (MDRD) Non-Af 81, BUN/Creatinine Ratio 16.4, Glucose 350 H, Calcium 7.9 L, Phosphorus 1.2 L, Magnesium 2.3, Total Bilirubin 0.10 L, AST 4 L, ALT < 6 L, Alkaline Phosphatase 94, Total Protein 5.3 L, Albumin 1.6 L, Globulin 3.7, Albumin/Globulin Ratio 0.4 L, Triglycerides 50 Micro: Microbiology 03/15/22 01:00 Blood Culture (Wb) - Anticubital Left Blood Culture - Preliminary No growth in 48 hours. 03/15/22 01:05 Blood Culture (Wb) - Anticubital Right Blood Culture - Preliminary No growth in 48 hours. 03/15/22 14:27 Stool C. difficile DNA Amplification - Final 03/15/22 14:27 Stool Stool Lactoferrin - Final 03/15/22 14:27 Stool Enteric Bacteriology - Final Physical Exam Const alert General Appearance: cooperative Orientation / Consciousness: oriented to person HEENT hearing grossly normal bilaterally Head and Scalp: normal to inspection Face and Sinus: face symmetric Nose: external nose normal Mouth: oral and palatal mucosa normal Eyes conjunctivae normal General Eye: normal appearance of both eyes Neck full ROM General: normal visual inspection Lymph Lymphatic: no lymphadenopathy noted Chest inspection of chest normal and palpation of chest normal Chest: symmetrical chest wall rise Resp normal respiratory effort Effort and Inspection: able to speak in complete sentences Cardio regular rate GI non-distended Percussion: normal to percussion Rectal Exam: deferred Neuro Speech: speech normal Gait (Neuro): normal gait Assessment & Plan Assessment/Plan (1) C. difficile colitis: PLAN: History of C. difficile colitis x2 with diarrhea on presentation that was C. difficile negative. I still will continue antibiotic therapy while she is on steroid therapy. (2) Severe malnutrition: PLAN: Severe protein calorie malnutrition. Still recommended TPN and findings of possible. She did try some Ensure yesterday but was able to keep down most. (3) Ulcerative colitis: PLAN: . Severe paul ulcerative colitis as seen by imaging and not improving. She is on steroid therapy which we will continue and transition to anti-TNF medicine.
--- NOTE | 2022-03-17 13:23 | CASEMGMT ---
Social Work Telephone call to TCU, [facility]. [facility] confirms to be holding bed for patient. This social sciences research scientist updated [facility] that per Dr. Coon (hospitalist) patient will not be medically cleared until end of the week, maybe Tuesday. [facility] to continue to hold bed for patient and will confirm TPN needs. [facility] denies concerns with being able to manage TPN. PLAN: TCU, when medically ready. Socia Work to continue to follow. Iggy Rocha MSW, BIS[facility]
--- NOTE | 2022-03-17 13:56 | PN.HOSP_ITS ---
Subjective Subjective Patient states she is feeling better overall. At the time of my evaluation is not having any abdominal pain. Able to take a little bit of p.o. intake. Objective Data Objective Data Vital Signs: Vital Signs Temp Pulse Resp BP Pulse Ox 97.6 F L 55 L 18 119/68 95 03/17/22 08:15 03/17/22 08:15 03/17/22 08:15 03/17/22 08:15 03/17/22 09:02 Oxygen Delivery Method Room Air Weight: 52.8 kg Body Mass Index (BMI) 19.1 Intake & Output: Intake and Output for Last 24 Hours 03/15/22 03/16/22 03/17/22 23:59 23:59 23:59 Intake Total 3450.75 / 3450.75 2440 / 2440 1000 / 1000 Output Total 500 / 500 0 / 0 Balance 2950.75 / 2950.75 2440 / 2440 1000 / 1000 Medical Nutrition Assessment Dietitian: Malnutrition Criteria Met Start: 03/15/22 11:21 Freq: Status: Active Protocol: Document 03/17/22 12:31 (Rec: 03/17/22 12:31 [id number]) Nutrition Malnutrition Evidence of Malnutrition Exists Yes Malnutrition (severe): Chronic Evidenced By Suboptimal Energy Intake ( Severe),Weight Loss (Severe), Physical Changes (Moderate) Clinical Problem Chronic Disease or Condition Related Malnutrition Etiology severe, chronic malnutrition r /t inadequate energy intake d/ t GI dysfunction Signs/Symptoms as evidenced by unintentional wt loss of 7.131kg/13% x 7 months; estimated PO intake meeting <75% of estimated energy needs >3 months; moderate muscle wasting/fat loss per physical exam Status Active Problem Recommendation Dietitian Recommendations/Changes 1) For Day #2 TPN recommend 1L 8%AA/14% dextrose Clinimix E w/ electrolytes, MVI, trace minerals, folic acid at 42mL/ hour to provide 798 calories, 80 g protein. 2) Close monitoring of wts, labs. 3) Regular diet as tolerated- will not add fiber restriction at this time as pt is consuming very little PO; ensure enlive 120mL 4x/day w/ medpass and ensure smoothie/ milkshake w/ meals. Lab / Micro Data Result Diagrams: 03/17/22 06:20 03/17/22 06:20 Labs: Laboratory Results - last 24 hr 03/17/22 01:44: POC Glucose 347 H 03/17/22 05:39: POC Glucose 350 H 03/17/22 06:20: WBC 18.4 H, RBC 3.87 L, Hgb 10.7 L, Hct 34.6 L, MCV 89.4, MCH 27.6, MCHC 30.9 L, RDW Std Deviation 48.2 H, RDW Coeff of Rhonda 14.7 H, Plt Count 346, MPV 10.2, Immature Gran % (Auto) 1.900 H, Neut % (Auto) 91.0 H, Lymph % (Auto) 5.2 L, [place] % (Auto) 1.6, Eos % (Auto) 0.0, Baso % (Auto) 0.3, Absolute Neuts (auto) 16.7 H, Absolute Lymphs (auto) 0.96, Nucleated RBC % 0 03/17/22 06:20: Sodium 138, Potassium 3.7, Chloride 110 H, Carbon Dioxide 21.0, Anion Gap 7, BUN 12, Creatinine 0.73, Estim Creat Clear Calc 35.49, Est GFR (MDRD) Af Amer 98, Est GFR (MDRD) Non-Af 81, BUN/Creatinine Ratio 16.4, Glucose 350 H, Calcium 7.9 L, Phosphorus 1.2 L, Magnesium 2.3, Total Bilirubin 0.10 L, AST 4 L, ALT < 6 L, Alkaline Phosphatase 94, Total Protein 5.3 L, Albumin 1.6 L, Globulin 3.7, Albumin/Globulin Ratio 0.4 L, Triglycerides 50 Micro: Microbiology 03/15/22 01:00 Blood Culture (Wb) - Anticubital Left Blood Culture - Preliminary No growth in 48 hours. 03/15/22 01:05 Blood Culture (Wb) - Anticubital Right Blood Culture - Preliminary No growth in 48 hours. 03/15/22 14:27 Stool C. difficile DNA Amplification - Final 03/15/22 14:27 Stool Stool Lactoferrin - Final 03/15/22 14:27 Stool Enteric Bacteriology - Final Physical Exam Const alert, oriented x3 and no apparent distress Constitutional Narrative: Thin, elderly white female lying in bed, appears tired but nontoxic, very pleasant and appropriately interactive, nursing is at the bedside, patient was watching television Exam Limitations: no limitations Nutritional Appearance: thin HEENT head/scalp atraumatic and moist oral mucous membranes Head and Scalp: normocephalic Resp normal respiratory effort, no retractions, no use of accessory muscles and clear to auscultation bilaterally Auscultation: Negative for crackles, rales, rhonchi or wheezes Cardio regular rate, regular rhythm, S1 normal heart sound, S2 normal heart sound, no murmurs, no rub, no gallops, no clicks and no JVD GI normal to inspection, nondistended, normoactive bowel sounds, soft to palpation and non-distended; Negative for hepatosplenomegaly GI Narrative: Diffuse nonspecific tenderness Palpation: tender Extremity no clubbing, cyanosis or edema Peripheral Pulses: Yes pulses 2+ throughout Neuro oriented x3, moves all extremities and no focal motor deficits Neuro Narrative: Generalized weakness Sensorium / Orientation: awake and alert Speech: speech normal Assessment & Plan Assessment/Plan (1) Acute abdominal pain: (2) Ulcerative colitis: (3) Leukocytosis: (4) Chronic anemia: (5) Hypokalemia: (6) Hypophosphatemia: (7) Severe malnutrition: PLAN: Acute abdominal pain and diarrhea -Patient with recent C. difficile infection -C. difficile PCR is negative -CT of the abdomen pelvis shows no marked change from previous CTs -C. difficile studies pending however this could be just an exacerbation of her ulcerative colitis -Continue p.o. vancomycin -Okay for p.o. diet with supplements per GI -Anticipate this is most likely related to an acute Crohn's flare Leukocytosis -Jorgito smear was unhelpful and showed neutrophilic leukocytosis -Trending down since initiation of steroids -Suspect this is reactive related to acute inflammation secondary to her severe paul ulcerative colitis Hypokalemia -Resolved -Continue to monitor especially with TPN Hypophosphatemia -Repeat phosphorus bolus given again today -May have some mild refeeding -Repeat Phos in a.m. Hyperglycemia -Likely related to the initiation of TPN in conjunction with steroid use -Sliding scale added every 6 hours -Change blood sugar checks to every 6 -Start Lantus 10 units Chronic normocytic anemia -Counts are down some but patient has received significant IV fluids -Repeat CBC in a.m Severe malnutrition -Right upper extremity PICC in place -Continue TPN--> would continue TPN for at least 7 days to boost nutritional status even if p.o. intake is able to be initiated -Dietitian following -Patient on p.o. diet with supplements however absorption of this time is questionable given severe colonic inflammation Debility -With severe malnourishment and overall medical status patient's strength has declined -Continue PT/OT -Recommendation for placement at discharge -Patient will be discharged to TCU when she is medically stable History of ulcerative colitis -Patient without insurance coverage for medications -Discussed with Dr. Draper and Remicade will be able to be initiated here and then outpatient follow-up at the infusion center -Has been on azathioprine previously but this has since been discontinued -Continue dicyclomine and colestipol regimen -Patient will have had IV steroids x48 hours this evening and anticipate initiation of Remicade tomorrow -Dr. Draper is following History of colon cancer -Status post right hemicolectomy -Considered in remission -Patient with recent colonoscopy 11/27/2021 which showed severe pancolitis/UC -No current issues DVT prophylaxis -SCDs -Continue CODE STATUS -DNR CCA no intubation Charges/Coding Visit Charges Inpatient E&M: 00746 Subs Hosp L2
[2022-03-17 14:30] VITALS: BP 121/61; PULSE 56; RESP 18; TEMP 36.6; O2SAT 95
[2022-03-17 14:46] LABS: Bedside Glucose 238 mg/dL (74-106)
--- NOTE | 2022-03-17 15:49 | PCM.PN.ID ---
Physical Exam Narrative Feeling better, no diarrhea today Const alert General Appearance: cooperative Resp normal air movement and clear to auscultation bilaterally Cardio regular rate and regular rhythm GI soft to palpation, non-tender and non-distended Skin no rashes or lesions noted ID ID: Route of nutrition/ use of supplements: [] Nutritional Intake: [] IV Site: [] [place] Catheter: [] Assessment & Plan Assessment/Plan (1) C. difficile colitis: PLAN: Diarrhea returned a few days after completing long po vanc taper. CT shows diffuse colitis. H/o ulcerative colitis. GI has seen, on iv steroids. Cont po vanc at 125mg 4x/day. Will follow
[2022-03-17 17:51] LABS: Bedside Glucose 305 mg/dL (74-106)
[2022-03-17] MEDS: TPN - Clinimix E 8%-14% Soln 2,000 ML with Multivitamins 10 ML, Trace Elements 1 ML, Fo... 42 ML IV (17:52)
[2022-03-17 20:20] VITALS: BP 136/67; PULSE 59; RESP 14; TEMP 36.3; O2SAT 98
[2022-03-17 23:51] LABS: Bedside Glucose 279 mg/dL (74-106)
[2022-03-18 02:30] VITALS: BP 105/61; PULSE 49; RESP 14; TEMP 36.1; O2SAT 99
[2022-03-18 05:44] LABS: Absolute Lymphocyte Count 1.25 X10^3/uL (0.83-4.51); Absolute Neutrophil Count 27.8 X10^3/uL (2.0-7.7); Basophil# 0.08 X10^3/uL; Basophil% 0.3 % (0-1); Hematocrit 33.9 % (37-47); Hemoglobin 10.7 g/dL (12.0-15.0); Lymphocyte # 1.25 X10^3/ul (0.83-4.51); Lymphocyte % 4.1 % (19-41); Mean Corp Hgb Conc 31.6 g/dL (32-36); Mean Corpuscular Hgb 27.8 pg (27.0-32.0); Mean Corpuscular Volume 88.1 fL (81-99); Monocyte# 0.55 X10^3/uL; Monocyte% 1.8 % (0-10); NRBC Flagged by Analyzer 0 % (0-5); Neutrophil # 27.75 X10^3/uL (2.7-7.7); Neutrophil % 90.4 % (47-70); POSITIVE COUNT YES; POSITIVE DIFFERENTIAL YES; Platelet Count 336 K/mm3 (150-450); RBC Distribution Width CV 14.6 % (11.6-14.6); RBC Distribution Width SD 46.8 fl (35.1-43.9); Red Blood Count 3.85 M/mm3 (4.2-5.4)
[2022-03-18 05:57] LABS: Differential Indicated SCAN CRITERIA MET; White Blood Count 30.7 K/mm3 (4.4-11.0)
[2022-03-18 06:26] LABS: Differential Comment SCANNED
[2022-03-18] MEDS: Vancomycin 125 MG/5 ML Susp PO.SYRINGE PO ×2 (06:26→12:59)
[2022-03-18] MEDS: 0.9% Saline Lock 10 ML Syringe IV ×5 (06:26→16:21)
[2022-03-18] MEDS: Insulin Lispro 100 UNIT/ML INSULN.PEN SC ×2 (06:26→12:58)
[2022-03-18 06:36] LABS: ALB/GLOB Ratio 0.4 RATIO (0.9-2.4); AST(SGOT) 5 U/L (15-37); Alanine Aminotransfer ALT/SGPT < 6 U/L (13-56); Albumin, Serum 1.6 g/dL (3.2-5.0); Alkaline Phosphatase 91 U/L (45-117); Anion Gap 3 (5-15); BUN 21 mg/dL (7-18); BUN/Creat Ratio 32.8 RATIO (10-20); Calcium,Total 8.1 mg/dL (8.5-10.1); Chloride 114 mmol/L (98-107); Creatinine, Serum 0.64 mg/dL (0.55-1.02); EST Glomerular Filtration Rate 95 mL/min (>60); Est Glom Filt Rate - Afr Amer 115 mL/min (>60); Estimated Creatinine Clearance 35.49 ml/min; Globulin 3.6 g/dL (2.2-4.2); Glucose 202 mg/dL (74-106); Magnesium 2.1 mg/dL (1.6-2.6); Phosphorus 2.1 mg/dL (2.5-4.9); Potassium 4.6 mmol/L (3.5-5.1); Protein, Total 5.2 g/dL (6.4-8.2); Sodium Level 141 mmol/L (136-145)
[2022-03-18 07:05] LABS: Bedside Glucose 196 mg/dL (74-106)
[2022-03-18 08:45] VITALS: BP 123/56; PULSE 66; RESP 18; TEMP 36.7; O2SAT 95
[2022-03-18] MEDS: Enoxaparin 40 MG/0.4 ML Syringe SC (09:45)
[2022-03-18] MEDS: Insulin Glargine-YFGN 100 UNIT/ML Pen 20 UNIT SC (09:51)
--- NOTE | 2022-03-18 11:46 | CASEMGMT ---
Social Work Per Dr. Coon, patient is medically cleared for today. This social media coordinator updated patient and patient granddaughter, Ariana. Telephone call to Allyson DUNCAN. Allyson updated that patient is cleared for discharge today. PLAN: skilled. Iggy DUNCAN, FRANKLIN-S
--- NOTE | 2022-03-18 12:26 | PCM.TXEXTCAR ---
Diet 03/16/22 16:34 Diet: Regular - General Type of Dietary Supplement:: Ensure Enlive Is pt able to select menu?: Yes Diet Comments: 4oz frozen ariela ES w/ lunch&dinner; 4oz frozen apple ES clear w/break Routine Orders/Code Status Routine Lab Work: CBC (03/22/2022), BMP (Daily while on TPN) and - (Magnesium and phosphorus levels daily while on TPN) Code Status: DNRCC-A (No intubation) Therapies Physical Therapy: Eval and Treat Occupational Therapy: Eval and Treat Problem/Diagnosis (1) C. difficile colitis: Status: Acute Allergies/Procedures Done in Hospital Allergies Sulfa (Sulfonamide Antibiotics) Allergy (Verified 02/17/22 13:04) Rash amoxicillin [From Augmentin] Adverse Reaction (Verified 02/17/22 13:04) Vomiting clavulanic acid [From Augmentin] Adverse Reaction (Verified 02/17/22 13:04) Vomiting fexofenadine [From Rose] Adverse Reaction (Verified 02/17/22 13:04) Other hydrocodone Adverse Reaction (Verified 02/17/22 13:04) out of it Procedures: PICC line placement Type of Care/Length of Stay Estimated LOS: Convalescent Care Less Than 30 days Type of Care Needed: Skilled Rehab Potential: Good Prognosis: Good Additional Orders/Day of Discharge Additional Orders: Dr. Draper from gastroenterology will need consulted Day of Discharge: 03/18/22 Dietary and Speech Recommendations Dietitian Recommendations/Changes: 1) TPN day #3 ordered: 1L 8%AA/14% dextrose Clinimix E w/ electrolytes, MVI, trace minerals, folic acid at 42mL/hour to provide 798 calories, 80 g protein. 2) Close monitoring of weights and labs. 3) Regular diet as tolerated with 120ml frozen chocolate ensure enlive BID with lunch/dinner and 120 ml frozen apple ensure clear with breakfast; will add fiber restriction as intake improves at meals. 4) Will continue 120 ml ensure enlive 4 times per day w/ medpass as ordered. 5) Will adjust ONS and diet as needed given intake at meals. Discharge Plan Admission Admit Date/Time: 03/15/22 01:15 Attending Provider: Cynthia Coon Primary Care Provider: Varinder Phoenix NP Consulting Providers: Tulio Champagne ; Monique Lora Discharge Orders/Prescriptions Prescriptions: No Action vancomycin 125 mg capsule 125 mg PO QODAY RF: 0 Referrals / Follow Up: Varinder Phoenix NP, [employer]EC[employer]IVE-C [Primary Care Provider] -
--- NOTE | 2022-03-18 12:27 | DS.PCM_ITS ---
Providers Date of Admission: 03/15/22 Date of Discharge: 03/18/22 Primary Care Physician: IDALMIS Hollis Consultations 03/15/22 01:54 Consult: Gastroenterology Routine Consulting Provider: Man[facility] Reason for Consult: Severe abdominal pain, recurrent diarrhea EMERGENT Consult: No Notified: Yes Date Notified: 03/15/22 Time Notified: 06:30 Method of Notification: Text 03/15/22 07:00 Consult: Infectious Disease Routine Consulting Provider: Tulio Champagne Reason for Consult: Recent d/c C-diff colitis, UC flare, return following decrease vanc EMERGENT Consult: No Notified: Yes Date Notified: 03/15/22 Time Notified: 08:00 Method of Notification: Text Reason For Visit: ACUTE ABDOMINAL PAIN, RECENT C-DIFF ENTEROCOLITIS Diagnosis Discharge Diagnosis (1) Severe malnutrition: Status: Acute Code(s): E43 - Unspecified severe protein-calorie malnutrition (2) Hypophosphatemia: Status: Acute Code(s): E83.39 - Other disorders of phosphorus metabolism (3) Leukocytosis: Status: Acute Code(s): D72.829 - Elevated white blood cell count, unspecified (4) Ulcerative colitis: Status: Acute Code(s): K51.90 - Ulcerative colitis, unspecified, without complications (5) Acute abdominal pain: Status: Acute Code(s): R10.9 - Unspecified abdominal pain Medications at Discharge Home Medications enoxaparin 40 mg SUBCUT DAILY #0 ml 03/18/22 food supplemt, lactose-reduced [Ensure Enlive] 120 ml PO 4X/DAY #0 ml 03/18/22 insulin glargine-yfgn 10 unit SUBCUT DAILY #0 ml 03/18/22 insulin lispro [Humalog KwikPen Insulin] See Protocol SUBCUT Q6 #0 ml 03/18/22 methylprednisolone sod suc(PF) [Solu-Medrol (PF)] 60 mg IV BID #0 ea 03/18/22 vancomycin [Firvanq] 125 mg PO Q6 #0 ml 03/18/22 Hospital Course Operations None Procedures PICC line placement and - (CT of the abdomen pelvis) Summary of Care Provided Minutes Spent on Discharge: 38 Hospital Course: Mrs. Veras is an 81-year-old white female who presented to the emergency department [facility] on 03/15/2022 with worsening diarrhea and abdominal pain. The patient has a known history of severe ulcerative colitis and has been unable to get on biologic therapy as of recently because of lack of medication coverage and her Medicare plan. She also had a recent admission from 02/03/2022 through 02/13/2022 and was diagnosed with C. difficile colitis at that time and discharged on prednisone 40 mg daily as well as a tapering dose of vancomycin with 4 weeks planned. Her first vancomycin taper was initiated approximately 3 to 4 days prior to presentation. She unfortunately was suffering from a recurrent lower bilateral abdominal pain as well as severe progressively worsening watery diarrhea that started approximately 3 days before presentation. She reported a low-grade temperature and poor oral intake with nausea. There was some confusion reported by family on admission. She rated her pain at 4 out of 5 in the emergency department but noted it was worse at times.Work-up in the ED included T99.5, heart rate 99, BP 120/54, respiratory rate 20, 93% on room air, CMP with potassium 3.1, BUN/creat 10/0.5, glucose 117, calcium 8.4, total bilirubin 0.40, AST/ALT 11/8, alk phos 120, lipase 125, T with WBC 33.5 with most recent prior 02/17/2022 WBC 15.9 with history of being on steroid taper however this was only administered for 14 days, hemoglobin 13.2, platelets 375 with significant left shift. In the ED patient administered p otassium 40 mill equivalent p.o. x1, Zofran, morphine and normal saline bolus. She was admitted to the medical floor and started on vancomycin oral and Flagyl as there were concerns that she potentially could be developing recurrent C. difficile colitis. Fortunately, her C. difficile PCR was negative. She was evaluated by gastroenterology and infectious disease. Infectious disease discontinued the Flagyl but wants her to maintain her vancomycin given her immunocompromise state with her steroids and recent C. difficile infection. She had not yet completed her taper prior to presentation. Gastroenterology started her on Solu-Medrol 40 mg every 6 hours and her diarrhea did improve. Her white count initially improved down to 18 but approximately 2 days after the steroids were initiated at high doses it trended back up to greater than 30,000. CT was done on admission and showed chronic stable disease but no new signs of pathology or abscess. Her p.o. intake was extremely poor and had been poor prior to admission with very depleted nutritional status and she was therefore started on TPN after PICC line was placed in her right upper extremity on 03/16/2022. She has been on TPN since that point time. She showed initial signs of slight refeeding with hypophosphatemia but this is trending up. Initial plan was to start her first dose of Remicade while she was in the hospital as she will be able to get this set as an outpatient infusion and have it be covered under Medicare part a and B but unfortunately inpatient Remicade is cost prohibitive and she will have to start this as an outpatient. She was seen by physical and Occupational Therapy and deemed appropriate for continued therapy at a skilled facility. She [facility] at [facility] care unit given the fact she need ongoing rehab and continue TPN. She will remain on Solu-Medrol 60 mg every 12 as well as the oral vancomycin and gastroenterology will need consulted over at the transitional care unit to help drive her therapy for her ulcerative colitis and help arrange outpatient Remicade infusion after discharge. The plan was discussed with both her and her granddaughter who is very involved in her care. She will need to follow-up with Dr. Draper as an outpatient as directed by him after discharge from the transitional care unit and I recommend follow-up with her primary care physician within the next month. With regards to her leukocytosis we do suspect this is reactive related to her chronic UC and a peripheral smear was obtained and revealed neutrophilic leukocytosis with a normocytic anemia given her ongoing steroid use and inflammatory process further work-up was deferred at this time however if it remains persistent after improved control of her UC and decrease steroid use she may need an evaluation by hematology oncology and this was discussed with her granddaughter as well. She was discharged to the TCU in stable condition on 03/18/2022. Discharge diagnoses: Acute on chronic abdominal pain Diarrhea-improved Leukocytosis Hypokalemia-resolved Hypophosphatemia Hyperglycemia in a nondiabetic Chronic normocytic anemia Severe malnutrition Debility History of ulcerative colitis History of colon cancer status post right hemicolectomy Physical Exam Const alert, oriented x3 and no apparent distress Constitutional Narrative: Thin, elderly white female lying in bed, appears tired but nontoxic, very pleasant and appropriately interactive, nursing is at the bedside, patient was watching television and eating breakfast General Appearance: cooperative and comfortable Exam Limitations: no limitations Nutritional Appearance: thin HEENT normocephalic, head/scalp atraumatic, hearing grossly normal bilaterally and moist oral mucous membranes HEENT Narrative: Mallampati 2, no thrush Eyes PERRL, EOMs intact bilaterally and conjunctivae normal Eyes Narrative: No scleral icterus Neck no lymphadenopathy, supple and no JVD Neck Narrative: Trachea midline, no thyroid enlargement Resp normal respiratory effort, no retractions, no use of accessory muscles and clear to auscultation bilaterally Auscultation: Negative for crackles, rales, rhonchi or wheezes Cardio regular rate, regular rhythm, S1 normal heart sound, S2 normal heart sound, no murmurs, no rub, no gallops, no clicks and no JVD GI normal to inspection, nondistended, normoactive bowel sounds, soft to palpation and non-distended; Negative for hepatosplenomegaly GI Narrative: Diffuse tenderness greater in the lower abdominal quadrants Palpation: tender Extremity no clubbing, cyanosis or edema Extremity Narrative: PICC right upper extremity-clean and dry with intact dressing Skin no rashes or lesions noted, no wounds, skin turgor normal and no jaundice Neuro oriented x3, moves all extremities and no focal motor deficits Neuro Narrative: Generalized weakness Sensorium / Orientation: awake and alert Speech: speech normal Psych affect normal Medical Records Data Medical Nutrition Assessment Dietitian: Malnutrition Criteria Met Start: 03/15/22 11:21 Freq: Status: Active Protocol: Document 03/18/22 10:08 RMA (Rec: 03/18/22 10:09 RMA [id number]) Nutrition Malnutrition Evidence of Malnutrition Exists Yes Malnutrition (severe): Chronic Evidenced By Suboptimal Energy Intake ( Severe),Weight Loss (Severe), Physical Changes (Moderate) Clinical Problem Chronic Disease or Condition Related Malnutrition Etiology severe, chronic malnutrition r /t inadequate energy intake d/ t GI dysfunction Signs/Symptoms as evidenced by unintentional wt loss of 7.131kg/13% x 7 months; estimated PO intake meeting <75% of estimated energy needs >3 months; moderate muscle wasting/fat loss per physical exam Status Active Problem Recommendation Dietitian Recommendations/Changes 1) TPN day #3 ordered: 1L 8%AA /14% dextrose Clinimix E w/ electrolytes, MVI, trace minerals, folic acid at 42mL/ hour to provide 798 calories, 80 g protein. 2) Close monitoring of weights and labs. 3) Regular diet as tolerated with 120ml frozen chocolate ensure enlive BID with lunch/ dinner and 120 ml frozen apple ensure clear with breakfast; will add fiber restriction as intake improves at meals. 4) Will continue 120 ml ensure enlive 4 times per day w/ medpass as ordered. 5) Will adjust ONS and diet as needed given intake at meals. Weight / BMI Weight Weight: 53.9 kg Body Mass Index (BMI) 19.1 ABG / Lab / Microbiology Data Result Diagrams: 03/18/22 05:29 03/18/22 05:29 Laboratory: Laboratory Results - last 24 hr 03/17/22 11:49: POC Glucose 238 H 03/17/22 17:43: POC Glucose 305 H 03/17/22 23:14: POC Glucose 279 H 03/18/22 05:29: WBC 30.7 H*, RBC 3.85 L, Hgb 10.7 L, Hct 33.9 L, MCV 88.1, MCH 27.8, MCHC 31.6 L, RDW Std Deviation 46.8 H, RDW Coeff of Rhonda 14.6, Plt Count 336, MPV 10.0, Immature Gran % (Auto) 3.400 H, Neut % (Auto) 90.4 H, Lymph % (Auto) 4.1 L, [place] % (Auto) 1.8, Eos % (Auto) 0.0, Baso % (Auto) 0.3, Absolute Neuts (auto) 27.8 H, Absolute Lymphs (auto) 1.25, Nucleated RBC % 0, Differential Comment SCANNED, Diff Path Review February foll 03/18/22 05:29: Sodium 141, Potassium 4.6, Chloride 114 H, Carbon Dioxide 24.0, Anion Gap 3 L, BUN 21 H, Creatinine 0.64, Estim Creat Clear Calc 35.49, Est GFR (MDRD) Af Amer 115, Est GFR (MDRD) Non-Af 95, BUN/Creatinine Ratio 32.8 H, Glucose 202 H, Calcium 8.1 L, Phosphorus 2.1 L, Magnesium 2.1, Total Bilirubin 0.20, AST 5 L, ALT < 6 L, Alkaline Phosphatase 91, Total Protein 5.2 L, Albumin 1.6 L, Globulin 3.6, Albumin/Globulin Ratio 0.4 L 03/18/22 06:24: POC Glucose 196 H Microbiology: Microbiology 03/15/22 01:00 Blood Culture (Wb) - Anticubital Left Blood Culture - Preliminary No growth in 48 hours. 03/15/22 01:05 Blood Culture (Wb) - Anticubital Right Blood Culture - Preliminary No growth in 48 hours. 03/15/22 14:27 Stool C. difficile DNA Amplification - Final 03/15/22 14:27 Stool Stool Lactoferrin - Final 03/15/22 14:27 Stool Enteric Bacteriology - Final Meaningful Use Info Meaningful Use Diagnoses (Choose all that apply): None applicable Discharge Plan Admission Admit Date/Time: 03/15/22 01:15 Primary Reason for Your Visit: Abdominal pain/diarrhea Attending Provider: Cynthia Coon Primary Care Provider: Varinder Phoenix NP Consulting Providers: Tulio Champagne ; Monique Lora Discharge Orders/Prescriptions Prescriptions: New enoxaparin 40 mg/0.4 mL Syringe 40 mg subcut DAILY Qty: 0 RF: 0 insulin lispro [Humalog KwikPen Insulin] 100 unit/mL Insulin Pen See Protocol unit subcut Q6 Qty: 0 RF: 0 Ensure Enlive 0.08 gram-1.5 kcal/mL Liquid 120 ml PO 4X/DAY Qty: 0 RF: 0 insulin glargine-yfgn 100 unit/mL (3 mL) Insulin Pen 10 unit subcut DAILY Qty: 0 RF: 0 Solu-Medrol (PF) 40 mg/mL Recon Soln 60 mg IV BID Qty: 0 RF: 0 Firvanq 25 mg/mL Recon Soln 125 mg PO Q6 Qty: 0 RF: 0 Discontinued vancomycin 125 mg capsule 125 mg PO QODAY RF: 0 Referrals / Follow Up: Jared Draper DO [STAFF PHYSICIAN] - See Referral Note (As directed by Dr. Draper) Varinder Phoenix NP, [employer]ENDANT-[employer] [Primary Care Provider] - Within 1 Month Disposition Disposition (needs filled in before D/C Order can be placed): [facility] Facility Charges/Coding Visit Charges Inpatient E&M: 41038 SNF Disch >30 Min
[2022-03-18 12:36] LABS: Pathologist Review Reviewed
[2022-03-18 12:55] LABS: Bedside Glucose 198 mg/dL (74-106)
[2022-03-18 15:00] VITALS: BP 144/67; PULSE 54; RESP 18; TEMP 36.5; O2SAT 95
--- NOTE | 2022-03-18 17:40 | PCM.PROGNOTE ---
Subjective Subjective She has been eating a lot more with her granddaughter at the bedside. Abdominal pain is also improved. She is not having any diarrhea. Objective Data Objective Data Vital Signs: Vital Signs Temp Pulse Resp BP Pulse Ox 97.7 F L 54 L 18 144/67 H 95 03/18/22 15:00 03/18/22 15:00 03/18/22 15:00 03/18/22 15:00 03/18/22 15:00 Oxygen Delivery Method Room Air Weight: 118 lb 13.266 oz Body Mass Index (BMI) 19.1 Intake & Output: Intake and Output for Last 24 Hours 03/16/22 03/17/22 03/18/22 23:59 23:59 23:59 Intake Total 2440 / 2440 2715.1333 / 2815.1333 723.5 / 723.5 Output Total 0 / 0 Balance 2440 / 2440 2715.1333 / 2815.1333 723.5 / 723.5 Lab / Micro Data Result Diagrams: 03/18/22 05:29 03/18/22 05:29 Labs: Laboratory Results - last 24 hr 03/17/22 17:43: POC Glucose 305 H 03/17/22 23:14: POC Glucose 279 H 03/18/22 05:29: WBC 30.7 H*, RBC 3.85 L, Hgb 10.7 L, Hct 33.9 L, MCV 88.1, MCH 27.8, MCHC 31.6 L, RDW Std Deviation 46.8 H, RDW Coeff of Rhonda 14.6, Plt Count 336, MPV 10.0, Immature Gran % (Auto) 3.400 H, Neut % (Auto) 90.4 H, Lymph % (Auto) 4.1 L, Nuckolls % (Auto) 1.8, Eos % (Auto) 0.0, Baso % (Auto) 0.3, Absolute Neuts (auto) 27.8 H, Absolute Lymphs (auto) 1.25, Nucleated RBC % 0, Differential Comment SCANNED, Diff Path Review Reviewed 03/18/22 05:29: Sodium 141, Potassium 4.6, Chloride 114 H, Carbon Dioxide 24.0, Anion Gap 3 L, BUN 21 H, Creatinine 0.64, Estim Creat Clear Calc 35.49, Est GFR (MDRD) Af Amer 115, Est GFR (MDRD) Non-Af 95, BUN/Creatinine Ratio 32.8 H, Glucose 202 H, Calcium 8.1 L, Phosphorus 2.1 L, Magnesium 2.1, Total Bilirubin 0.20, AST 5 L, ALT < 6 L, Alkaline Phosphatase 91, Total Protein 5.2 L, Albumin 1.6 L, Globulin 3.6, Albumin/Globulin Ratio 0.4 L 03/18/22 06:24: POC Glucose 196 H 03/18/22 12:44: POC Glucose 198 H Micro: Microbiology 03/18/22 12:38 Nasal Secretion SARS-CoV-2 Antigen (Rapid) - Final 03/15/22 01:00 Blood Culture (Wb) - Anticubital Left Blood Culture - Preliminary No growth in 48 hours. 03/15/22 01:05 Blood Culture (Wb) - Anticubital Right Blood Culture - Preliminary No growth in 48 hours. 03/15/22 14:27 Stool C. difficile DNA Amplification - Final 03/15/22 14:27 Stool Stool Lactoferrin - Final 03/15/22 14:27 Stool Enteric Bacteriology - Final Physical Exam Const alert General Appearance: cooperative Orientation / Consciousness: oriented to person HEENT hearing grossly normal bilaterally Head and Scalp: normal to inspection Face and Sinus: face symmetric Nose: external nose normal Mouth: oral and palatal mucosa normal Eyes conjunctivae normal General Eye: normal appearance of both eyes Neck full ROM General: normal visual inspection Lymph Lymphatic: no lymphadenopathy noted Chest inspection of chest normal and palpation of chest normal Chest: symmetrical chest wall rise Resp normal respiratory effort Effort and Inspection: able to speak in complete sentences Cardio regular rate GI non-distended Percussion: normal to percussion Rectal Exam: deferred Neuro Speech: speech normal Gait (Neuro): normal gait Assessment & Plan Assessment/Plan (1) C. difficile colitis: PLAN: Patient will remain on vancomycin therapy as long as possible while she is on steroid therapy as she gets transition to Stelara (2) Severe malnutrition: PLAN: . maintain nutritional support.via tpn (3) Ulcerative colitis: PLAN: Continue steroids and we will initiate Stelara as an outpatient Charges/Coding Visit Charges Inpatient E&M: 09542 Subs Hosp L2
[2022-03-22 18:07] LABS: Calprotectin, Stool 271 ug/g (0-120)
== END 2022-03-18 16:46 | disposition skilled nursing facility (03) | DRG 385 ==
LOC: ED 03-15 00:57 → MS3 03-15 01:56
PROVIDERS: Admitting Provider Family Medicine; Emergency Provider Emergency Medicine; PCP Nurse Practitioner Family; Visit Provider Internal Medicine
DX: K51.90 Ulcerative colitis, unspecified, without complications (principal); E43 Unspecified severe protein-calorie malnutrition; Z68.1 Body mass index [BMI] 19.9 or less, adult; E83.39 Other disorders of phosphorus metabolism; E87.6 Hypokalemia; D64.9 Anemia, unspecified; Z85.038 Personal history of other malignant neoplasm of large intestine; Z87.19 Personal history of other diseases of the digestive system; Z90.49 Acquired absence of other specified parts of digestive tract; F32.A Depression, unspecified; R53.81 Other malaise; G89.29 Other chronic pain; R73.9 Hyperglycemia, unspecified; Z66 Do not resuscitate
CPT/HCPCS: 36415; 36569; 74177; 80048; 80053; 81001; 82962; 83605; 83630; 83690; 83735; 83993; 84100; 84478; 85025; 85652; 86140; 87040; 87177; 87209; 87426; 87493; 87506; 97110; 97162; 97166; 97530; 97535; 97802; 97803; 99251; 99285; J7030; J7040; J7050; Q9967; A4216; G0463; J2405

== ENCOUNTER 2022-03-18 16:54 | Inpatient (IN) | payer MEDICARE, OTHER, SELFPAY ==
[2022-03-18 18:03] VITALS: BMI 24.7
[2022-03-18 18:07] VITALS: BP 140/73; PULSE 55; RESP 16; TEMP 36.2; O2SAT 94
[2022-03-18] MEDS: TPN - Clinimix E 8%-14% Soln 2,000 ML with Multivitamins 10 ML, Trace Elements 1 ML, Fo... 42 ML IV (19:19)
[2022-03-18] MEDS: Vancomycin 125 MG/5 ML Susp PO.SYRINGE PO (19:24)
[2022-03-18] MEDS: Insulin Lispro 100 UNIT/ML INSULN.PEN SC (19:36)
[2022-03-18 19:45] LABS: Bedside Glucose 162 mg/dL (74-106)
[2022-03-18 20:00] VITALS: PULSE 52; RESP 16; O2SAT 96
--- NOTE | 2022-03-18 21:49 | HP.PCM_ITS ---
HPI - General General Date of Admission: 03/18/22 HPI Narrative 03/14/2022 JOANN MERRITT, is a 81 Female who presents to [facility] Emergency Department with abdominal pain. Worse x 2 days, weaning off Vancomycin for recurrent c. diff colitis. Feels like UC flare, pain left lower quadrant, nausea, diarrhea. Morphine, Zofran IV fluids given. WBC 33.5, K 3.1, Urinalysis negative, Blood cultures sent. 03/15/2022 CT abdomen/pelvis showed colitis. 03/15/2022 Admit to Hospital. Vancomycin/Flagyl for UC/C. diff colitis. Replace potassium. Consult Dr. Draper. 03/15/2022 Dr. Champagne agreed with Vancomycin/Flagyl for C. diff colitis. 03/16/2022 NPO, C. Diff negative. Dr. Champagne recommended stopping Flagyl. PICC placement, TPN for nutrition. PT/OT for debility. 03/17/2022 Feeling better, no abdominal pain. Continue oral Vancomycin for recurrent C. Diff. PO diet okay for UC flare. Replace phosphorous. Continue TPN. 03/18/2022 Steroids for UC flare, then Stelara as outpatient. 03/18/2022 Admit to TCU with debility, here for rehabilitation, strengthening, TPN, prior to discharge home with family. [facility] Medical History (Updated 03/18/22 @ 21:[address] Elier Ruelas MD) Arthritis C. difficile colitis Cataract History of colon cancer History of colon cancer Seasonal allergies Severe malnutrition Ulcerative colitis Home Medications enoxaparin 40 mg SUBCUT DAILY 03/18/22 [History Last Taken Unknown] food supplemt, lactose-reduced [Ensure Enlive] 120 ml PO 4X/DAY 03/18/22 [History Last Taken Unknown] insulin glargine-yfgn 10 unit SUBCUT DAILY 03/18/22 [History Last Taken Unknown] insulin lispro [Humalog KwikPen Insulin] See Protocol SUBCUT Q6 03/18/22 [History Last Taken Unknown] methylprednisolone sod suc(PF) [Solu-Medrol (PF)] 60 mg IV BID 03/18/22 [History Last Taken Unknown] vancomycin [Firvanq] 125 mg PO Q6 #0 ml 03/18/22 [Rx Last Taken Unknown] Allergy/AdvReac Type Severity Reaction Status Date / Time Sulfa (Sulfonamide Allergy Rash Verified 02/17/22 13:04 Antibiotics) amoxicillin [From Augmentin] AdvReac Vomiting Verified 02/17/22 13:04 clavulanic acid AdvReac Vomiting Verified 02/17/22 13:04 [From Augmentin] fexofenadine [From Rose] AdvReac Other Verified 02/17/22 13:04 hydrocodone AdvReac out of it Verified 02/17/22 13:04 Family History Mother No problems noted. Grandmother Arthritis Grandfather Arthritis Other Heart disease Surgical History H/O breast biopsy History of appendectomy History of cholecystectomy S/P cholecystectomy S/P partial colectomy Surgical history of tubal ligation Social History household members: family housing: house Smoking Status: Never smoker alcohol intake: never substance use type: does not use what type of physical activity do you participate in: walking frequency: daily ROS Constitutional Constitutional: Denies chills, fever(s) or weight gain ENT HEENT: Denies headache(s), nasal congestion or nasal discharge Cardiovascular Cardiovascular: Denies chest pain or palpitations Respiratory/Chest Respiratory/Chest: Denies cough, excessive phlegm production or shortness of breath with exertion Gastrointestinal Gastrointestinal: Denies abdominal pain, nausea or vomiting Genitourinary Genitourinary: Denies dysuria Musculoskeletal Musculoskeletal: Denies joint pain or joint swelling Integumentary Integumentary: Denies rash or wounds Neurologic Neurologic: Denies focal weakness, numbness or tingling Psychiatric Psychiatric: Denies anxiety, auditory hallucinations, depression, homicidal ideation or suicidal ideation Vital Signs Vital Signs Vital Signs: 03/18/22 18:07 Temperature 97.1 F L Temperature Source Temporal Pulse Rate 55 L Respiratory Rate 16 Blood Pressure 140/73 H Blood Pressure Mean 95 Blood Pressure Source Monitor Blood Pressure Position Sitting Blood Pressure Location Left Arm Pulse Ox 94 Oxygen Delivery Method Room Air Weight Weight: 63.503 kg Body Mass Index (BMI) 24.7 Physical Exam Const alert General Appearance: cooperative HEENT normocephalic Eyes PERRL and EOMs intact bilaterally Neck supple, no JVD and no carotid bruits Resp normal respiratory effort, normal air movement and clear to auscultation bilate rally Cardio regular rate and regular rhythm GI normal to inspection, nondistended, normoactive bowel sounds, non-tender and non-distended Extremity normal capillary refill Extremity Narrative: Right upper extremity PICC line. General Extremity: Negative for edema Skin no rashes or lesions noted General Skin Exam: no breakdown Psych affect normal Appearance: appropriate Results Lab / Micro Data Result Diagrams: 03/19/22 06:55 03/19/22 06:55 Labs: Laboratory Results - last 24 hr 03/18/22 19:35: POC Glucose 162 H Assessment & Plan Assessment/Plan (1) Debility: (2) Acute abdominal pain: (3) Ulcerative colitis: (4) C. difficile colitis: (5) Severe malnutrition: (6) Hypokalemia: (7) Hypophosphatemia: (8) Chronic anemia: (9) Leukocytosis: (10) Encephalopathy: (11) Osteoarthritis: (12) Cataract: PLAN: 81 year old female with below past medical history hospitalized for abdominal pain secondary to ulcerative colitis, complicated by recurrent clostridium difficile, encephalopathy, electrolyte abnormalities, malnutrition, admitted to TCU with debility, here for rehabilitation, strengthening, TPN, prior to discharge home with family. * Debility - PT/OT. * Pain - Tylenol 1000mg q6h prn pain (1-10). * Bowel - Monitor, high risk of diarrhea. * Adult immunization - Administer pneumonia vaccine, covid19 vaccine, flu vaccine as appropriate. * DVT prophylaxis - Lovenox 40mg sc daily. * Nutrition - Ensure Enlive 120ml 4x/day, TPN. * Steroid induced hyperglycemia - Glargine 10 units daily, monitor blood sugar. * Ulcerative colitis - Solu-medrol 60mg iv bid, consult Dr. Draper. * Recurrent clostridium difficile - Vancomycin 125mg q6h.
[2022-03-19 00:06] LABS: Bedside Glucose 164 mg/dL (74-106)
[2022-03-19] MEDS: Vancomycin 125 MG/5 ML Susp PO.SYRINGE PO ×4 (00:28→17:48)
[2022-03-19 06:25] LABS: Bedside Glucose 138 mg/dL (74-106)
[2022-03-19] MEDS: Insulin Glargine-YFGN 100 UNIT/ML Pen 10 UNIT SC (06:53)
[2022-03-19 07:01] LABS: Hematocrit 33.5 % (37-47); Hemoglobin 10.6 g/dL (12.0-15.0); Mean Corp Hgb Conc 31.6 g/dL (32-36); Mean Corpuscular Hgb 27.8 pg (27.0-32.0); Mean Corpuscular Volume 87.9 fL (81-99); Mean Platelet Vol. 10.1 fl (6.2-12.0); POSITIVE COUNT YES; POSITIVE DIFFERENTIAL YES; POSITIVE MORPHOLOGY YES; Platelet Count 291 K/mm3 (150-450); RBC Distribution Width CV 14.8 % (11.6-14.6); RBC Distribution Width SD 47.6 fl (35.1-43.9); Red Blood Count 3.81 M/mm3 (4.2-5.4); White Blood Count 25.2 K/mm3 (4.4-11.0)
[2022-03-19] MEDS: Enoxaparin 40 MG/0.4 ML Syringe SC (07:02)
[2022-03-19 07:12] LABS: Differential Indicated MANUAL DIFF
[2022-03-19 07:18] LABS: Lymphocyte 5 % (19-41); Metamyelocyte 3 % (0-1); Neutrophil-Band 10 % (0-5); Neutrophil-Segmented 82 % (47-70); Total Cells Counted 100 (MANUAL DIFF)
[2022-03-19 07:20] LABS: Absolute Neutrophil Count 23.9 X10^3/uL (2.0-7.7); Neutrophil # 23.89 X10^3/uL (2.7-7.7)
[2022-03-19 07:21] LABS: Absolute Lymphocyte Count 1.26 X10^3/uL (0.83-4.51); Lymphocyte # 1.26 X10^3/ul (0.83-4.51); Platelet Estimate ADEQUATE (ADEQ); Red Cell Morphology NORM C+C NORMAL (NORM C&C)
[2022-03-19 07:32] LABS: Anion Gap 5 (5-15); BUN 27 mg/dL (7-18); BUN/Creat Ratio 44.1 RATIO (10-20); Calcium,Total 7.8 mg/dL (8.5-10.1); Chloride 113 mmol/L (98-107); Creatinine, Serum 0.61 mg/dL (0.55-1.02); EST Glomerular Filtration Rate 100 mL/min (>60); Est Glom Filt Rate - Afr Amer 121 mL/min (>60); Estimated Creatinine Clearance 37.12 ml/min; Glucose 141 mg/dL (74-106); Potassium 4.5 mmol/L (3.5-5.1); Sodium Level 140 mmol/L (136-145)
[2022-03-19] MEDS: Tuberculin,Purif.prot.deriv. 50 TU/ML Vial 0.1 ML ID (09:18)
[2022-03-19 11:25] LABS: Bedside Glucose 122 mg/dL (74-106)
[2022-03-19 12:40] LABS: Pathologist Review Reviewed
--- NOTE | 2022-03-19 15:01 | PHA.CONS_ITS ---
TCU RX Drug Regimen Review Subjective: 81 YOF admitted to TCU on 03/18 for TPN nutrition, strengthening, and rehabilitation prior to discharge back home with family. Objective: Allergies Sulfa (Sulfonamide Antibiotics) Allergy (Verified 02/17/22 13:04) Rash amoxicillin [From Augmentin] Adverse Reaction (Verified 02/17/22 13:04) Vomiting clavulanic acid [From Augmentin] Adverse Reaction (Verified 02/17/22 13:04) Vomiting fexofenadine [From Rose] Adverse Reaction (Verified 02/17/22 13:04) Other hydrocodone Adverse Reaction (Verified 02/17/22 13:04) out of it Current Medications Generic Name Dose Route Start Last Admin Trade Name Freq PRN Reason Stop Dose Admin Acetaminophen 1,000 mg 03/18/22 22:01 Acetaminophen 500 Mg Tablet PO Q6H PRN PRN Pain Score 1-10 Enoxaparin Sodium 40 mg 03/19/22 06:00 03/19/22 07:02 Enoxaparin 40 Mg/0.4 Ml Syringe SC 40 mg DAILY ROBERTO Administration Heparin Sodium (Beef Lung) 50 units 03/18/22 18:45 Heparin Pf Lock 10 Units/Ml 50 Units/5 Ml Syringe IV UD PRN PICC Line Heparin Flush Multivitamins 10 ml/ Trace 2,011.2 mls @ 42 mls/hr 03/18/22 18:00 03/18/22 19:19 Elements 1 ml/ Folic Acid 1 mg IV 03/19/22 15:59 42 mls/hr / Total Parenteral Nutrition .Q24H ROBERTO Administration Multivitamins 10 ml/ Trace 2,011.2 mls @ 42 mls/hr 03/19/22 16:00 Elements 1 ml/ Folic Acid 1 mg IV 03/20/22 15:47 / Total Parenteral Nutrition .Q24H ROBERTO Insulin Glargine 10 unit 03/19/22 06:00 03/19/22 06:53 Insulin Glargine-Yfgn 100 Unit/Ml Pen SC 10 unit DAILY ROBERTO Administration Methylprednisolone 60 mg 03/18/22 18:00 03/19/22 07:01 Methylprednisolone 40 Mg/Ml Vial IV 60 mg BID ROBERTO Administration Sodium Chloride 10 - 40 ml 03/18/22 18:45 0.9% Saline Lock 10 Ml Syringe IV UD PRN Open End PICC Flush Sodium Chloride 10 - 40 ml 03/18/22 18:45 0.9 % Nacl (Sterile) Posiflush 10 Ml IV UD PRN Port access or dressing change Tuberculin PPD 0.1 ml 03/26/22 10:00 Tuberculin,Purif.Prot.Deriv. 50 Tu/Ml Vial ID 03/26/22 10:01 X1 ONE Vancomycin HCl 125 mg 03/18/22 18:00 03/19/22 11:21 Vancomycin 125 Mg/5 Ml Susp Po.Syringe PO 125 mg Q6 ROBERTO Administration Problem List (Last Updated 03/18/22 @ 21:[address] Elier Ruelas MD) Cataract (Acute) Osteoarthritis (Acute) Encephalopathy (Acute) Debility (Acute) C. difficile colitis (Acute) Severe malnutrition (Acute) Hypophosphatemia (Acute) Hypokalemia (Acute) Chronic anemia (Chronic) Leukocytosis (Acute) Acute abdominal pain (Acute) Ulcerative colitis (Acute) Vital Signs Temp Pulse Resp BP Pulse Ox 97.1 F L 52 L 16 140/73 H 96 03/18/22 18:07 03/18/22 20:00 03/18/22 20:00 03/18/22 18:07 03/18/22 20:00 Oxygen Delivery Method Room Air Weight: 63.503 kg Body Mass Index (BMI) 24.7 Sodium 140 mmol/L (136-145) 03/19/22 06:55 Potassium 4.5 mmol/L (3.5-5.1) 03/19/22 06:55 Chloride 113 mmol/L (98-107) H 03/19/22 06:55 Carbon Dioxide 22.0 mmol/L (21.0-32.0) 03/19/22 06:55 Anion Gap 5 (5-15) 03/19/22 06:55 BUN 27 mg/dL (7-18) H 03/19/22 06:55 Creatinine 0.61 mg/dL (0.55-1.02) 03/19/22 06:55 Est GFR (MDRD) Af Amer 121 mL/min (>60) 03/19/22 06:55 Est GFR (MDRD) Non-Af 100 mL/min (>60) 03/19/22 06:55 BUN/Creatinine Ratio 44.1 RATIO (10-20) H 03/19/22 06:55 Glucose 141 mg/dL (74-106) H 03/19/22 06:55 Assessment/Plan: 1. Nutrition: TPN Clinimix-E 8/14% 1L IV Daily. Patient being followed closely by clinical dieticians for TPN recommendations, weaning. Of note; patient currently has a PO diet ordered and per nursing/chain repairer/ H&P patient's oral diet is improving. Please continue to monitor for continual improvement in PO intake, electrolytes, I/O, and for weaning of TPN. 2. Ulcerative Colitis: Solu-Medrol 60mg IV BID. Please continue to monitor BG (last 141 on 03/19), S/S insomnia, delirium, N/V, improvement in UC symptoms. Per H/P, GI consulted and is following patient. Per inpatient hospital stay GI consult, pt will be started on Stelara as an outpatient once discharged. 3. Recurrent C.diff Colitis:Vancomycin 125mg PO Q6h. Please continue to monitor patient for improvement in colitis symptoms, pain, diarrhea. No stop date is on order at this time, consider adding a stop date for the appropriate duration of therapy. 4. Steroid Induced Hyperglycemia: Insulin Glargine 10 unit SC Daily. Please continue to monitor BG levels (last 140mg/dL on 03/19/22), S/S hypoglycemia. Please closely monitor once solu-medrol is stopped, as insulin may need to be stopped as well, thank you. 5. DVT Prophylaxis: Lovenox 40mg SC Daily. Please continue to monitor for S/S bleeding/bruising, CrCl (last 37 mL/min on 03/19). 6. Pain: Tylenol 1000mg PO Q6h PRN Pain 1-10. Please continue to monitor for increased/decreased S/S pain, PRN medication usage. - The patient has utilized 0 doses of Tylenol at this time. 7. Bowel: The patient is not currently on a bowel regimen, but is at high risk of diarrhea d/t recurrent C.diff colitis. Please continue to monitor bowel movements to assess if patient will need medications ordered, thank you. Assessment/Plan for indications treated with psychotropic medications: -The patient is not currently on any psychotropic medications at this time. Medical chart and medication regimen reviewed. The following medication irregu larities or issues were identified: 1. Vancomycin 125mg PO Q6h: No stop date entered on order at this time. Please consider adding a stop date for the appropriate duration of therapy as cl inically indicated, thank you. 2. Solu-Medrol: This is a Beer[employer] Criteria medication and can cause an increased risk of delirium in elderly patients. Patient appears to be tolerating medication at this time, and the benefit of use currently outweighs the risk. Continue to monitor for any acute changes in mental status while patient is on therapy, thank you. Date of Note:: 03/19/22
[2022-03-19 15:52] VITALS: BP 141/63; PULSE 52; RESP 18; TEMP 36.3; O2SAT 98
[2022-03-19] MEDS: TPN - Clinimix E 8%-14% Soln 2,000 ML with Multivitamins 10 ML, Trace Elements 1 ML, Fo... 42 ML IV (16:06)
--- NOTE | 2022-03-19 16:11 | NURSING ---
Dr. Ruelas updated on Blood Clot Right Subclavian per Dr. Suraj Pulido to use PICC line. Pt started on Eliquis.
--- NOTE | 2022-03-19 17:29 | CON.PCM_ITS ---
Assessment & Plan Assessment/Plan (1) C. difficile colitis: PLAN: Patient will remain on vancomycin therapy for the next month. She is immunosuppressed and severely malnourished. Also she will need to stay on vancomycin because she is on steroids and will be transition to Stelara therapy for severe ulcerative colitis. (2) Severe malnutrition: PLAN: Malnutrition with an albumin of 1.7, prealbumin of 2, thrombocytopenia, hyper ferritin anemia. All of her nutrition are down secondary to severe diarrhea associated ulcerative colitis and C. difficile. Recommend TPN. (3) Ulcerative colitis: PLAN: She will remain methylprednisolone 60 mg every 12 hours. I will recheck her ESR and CRP (4) Leukocytosis: PLAN: I believe that she is experiencing reactive leukocytosis as blood cultures have been negative, stool cultures are negative for any infection. Continue to monitor her white blood count. HPI Consult Data Date of Consult: 03/19/22 HPI Narrative HPI Narrative: JOANN MERRITT, is a 81 F who presents as a transfer from the hospital with a recent diagnosis of ulcerative colitis flare and recent history of recurrent C. difficile colitis. She is also complicated by severe protein calorie malnutrition due to diarrhea, recurrent infection and uncontrolled ulcerative colitis. 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 She came recently when she developed some worsening abdominal pain followed by diarrhea. She came into the ED for evaluation and was discovered to be afebrile. Biochemical analysis had shown severe elevation in her white blood cell count with left shift. She was started back on vancomycin. She has been off of steroids and Vanco for the last 2 weeks. She has been feeling fine up until about 2 days ago when she started having some crampy abdominal pain and looser stools. Joann initially presented to [facility] ED 08.10.21 for an episode of weakness and sy ncope. I was consulted 08.11.21 for management of diarrhea. She has a history of ulcerative colitis with a historical use of steroids and maintained on mesalamine at presentation. She was discharged 08.12.21 after conservative therapy with Steroids. Presented to [facility] ED 11.23.21 with feelings of lightheadedness and syncope. I consulted same day for management of GIB, diarrhea, leukocytosis. Colonoscopy performed 11.27.21 and subsequently diagnosed with exacerbation of previously diagnosed UC. She was treated with vancomycin, colestipol and Imuran. She was discharged 11.29.21. CT abd/pel 11.23.21 finding a somewhat collapsed gallbladder; multiple splenic punctate calcifications from prior granulomatous infection; moderate diffuse mural hyperenhancement throughout majority of colon with descending colon most notably involved; cecum, ascending and transverse colon showed mild wall thickening and mural stratification. Colonoscopy 11.27.21 severe pancolitis UC (Hunter Score 3); congested mucosa in distal ileum and terminal ileum. Biopsy results consistent with UC without dysplasia. Treated with vancomycin, Imuran, colestipol. Stool studies for enteric pathogens and C.Difficile taken during that hospital admission. C. difficile positive and started on treatment. 12.08.21: Ulcerative colitis ? hopeful to start Stelara in the future as an outpatient. 01.27.22 She reported that she is feeling like her stomach is cramping intermittently followed by episodes of urgent watery and bloody diarrhea in small amounts. This is happening of varying during each day of the week. Does not have issues with this during the night. Denies identification of triggers. Has attempted eliminating things for a couple of days with no change. Denies anxiety or depressive symptoms, thought she is distraught regarding her current symptoms. She continues to take azathioprine 100mg and colestipol 2g QD with no effect. She has not been taking prednisone. 01.28.22 admitted to the hospital and was identified as having C. difficile colitis. She was given a 6-week taper of vancomycin 125 mg 4 times a day [address] way down to 125 mg once a day. 03.15.22 she presented back to the ED with abdominal pain that has been getting worse over the last couple days. Patient is in the process of weaning off antibiotics for her ulcerative colitis. Patient states this feels similar to prior flareup of her ulcerative colitis. Patient states nothing makes her pain better and nothing makes it worse. Patient states her pain is mainly in the left lower quadrant. Patient admits to nausea but denies any vomiting. Patient admits to diarrhea but denies any melena or hematochezia. Patient denies any urinary complaints. CT scan of abdomen pelvis - diffuse circumferential wall thickening and edema of the entire colon compatible with colitis. No significant change from prior. Patient has a known history of ulcerative colitis. No evidence of bowel obstruction. Postsurgical change of the distal rectosigmoid colon. No evidence of free air or abscess. [facility] Medical History (Updated 03/18/22 @ 21:[address] Elier Ruelas MD) Arthritis C. difficile colitis Cataract History of colon cancer History of colon cancer Seasonal allergies Severe malnutrition Ulcerative colitis Home Medications enoxaparin 40 mg SUBCUT DAILY 03/18/22 [History Last Taken Unknown] food supplemt, lactose-reduced [Ensure Enlive] 120 ml PO 4X/DAY 03/18/22 [History Last Taken Unknown] insulin glargine-yfgn 10 unit SUBCUT DAILY 03/18/22 [History Last Taken Unknown] insulin lispro [Humalog KwikPen Insulin] See Protocol SUBCUT Q6 03/18/22 [H istory Last Taken Unknown] methylprednisolone sod suc(PF) [Solu-Medrol (PF)] 60 mg IV BID 03/18/22 [History Last Taken Unknown] vancomycin [Firvanq] 125 mg PO Q6 #0 ml 03/18/22 [Rx Last Taken Unknown] ustekinumab 90 mg/mL subcutaneous syringe 90 mg SUBCUT Q8W 360 Days #1 ml 03/19/22 [Rx Last Taken Unknown] Allergy/AdvReac Type Severity Reaction Status Date / Time Sulfa (Sulfonamide Allergy Rash Verified 02/17/22 13:04 Antibiotics) amoxicillin [From Augmentin] AdvReac Vomiting Verified 02/17/22 13:04 clavulanic acid AdvReac Vomiting Verified 02/17/22 13:04 [From Augmentin] fexofenadine [From Rose] AdvReac Other Verified 02/17/22 13:04 hydrocodone AdvReac out of it Verified 02/17/22 13:04 Family History Mother No problems noted. Grandmother Arthritis Grandfather Arthritis Other Heart disease Surgical History H/O breast biopsy History of appendectomy History of cholecystectomy S/P cholecystectomy S/P partial colectomy Surgical history of tubal ligation Social History household members: family housing: house Smoking Status: Never smoker alcohol intake: never substance use type: does not use what type of physical activity do you participate in: walking frequency: daily ROS Review of Systems ROS Unobtainable: other Constitutional Constitutional: Denies fatigue, fever(s), poor appetite, weight gain or weight loss ENT HEENT: Denies mouth lesions Cardiovascular Cardiovascular: Denies abdominal bloating, abdominal edema or abdominal pain Respiratory/Chest Respiratory/Chest: Denies change in mental status, change in phlegm color, chest congestion or chest tightness Gastrointestinal Gastrointestinal: Denies belching, bloating, change in bowel habits, change in stool character, chewing difficulty, coffee ground emesis, constipation, cramping, diarrhea, dyspepsia, dysphagia, early satiety, excessive flatus, fecal incontinence, heartburn, hematemesis, hematochezia, hemorrhoids, loose stools, melena, nausea, odynophagia, rectal bleeding, tenesmus, vomiting or weight changes Genitourinary Genitourinary: Denies abdominal discomfort, burning urination or itching Musculoskeletal Musculoskeletal: Reports as per HPI; Denies muscle weakness or myalgias Integumentary Integumentary: Denies jaundice Neurologic Neurologic: Denies lack of coordination or weakness Psychiatric Psychiatric: Denies confusion, depression, memory loss, mood swings, paranoia or suicidal ideation Endocrine Endocrinology: Denies systems reviewed and no addt'l complaints, except as documented Hematologic/Lymphatic Hematologic/Lymphatic: Denies anemia, easy bleeding, easy bruising or lymphadenopathy Allergic/Immunologic Allergic/Immunologic: Denies systems reviewed and no addt'l complaints, except as documented Physical Exam Const alert General Appearance: cooperative Orientation / Consciousness: oriented to person HEENT hearing grossly normal bilaterally Head and Scalp: normal to inspection Face and Sinus: face symmetric Nose: external nose normal Mouth: oral and palatal mucosa normal Eyes conjunctivae normal General Eye: normal appearance of both eyes Neck full ROM General: normal visual inspection Lymph Lymphatic: no lymphadenopathy noted Chest inspection of chest normal and palpation of chest normal Chest: symmetrical chest wall rise Resp normal respiratory effort Effort and Inspection: able to speak in complete sentences Cardio regular rate GI non-distended Percussion: normal to percussion Rectal Exam: deferred Neuro Speech: speech normal Gait (Neuro): normal gait Medical Records Data Medical Nutrition Assessment Dietitian: Malnutrition Criteria Met Start: 03/19/22 13:11 Freq: Status: Active Protocol: Document 03/19/22 13:17 JAROD (Rec: 03/19/22 13:17 [facility] [id number]) Nutrition Malnutrition Evidence of Malnutrition Exists Yes Malnutrition (severe): Chronic Evidenced By Suboptimal Energy Intake ( Moderate),Weight Loss ( Moderate),Physical Changes ( Moderate) Clinical Problem Chronic Disease or Condition Related Malnutrition Etiology severe, chronic malnutrition r /t inadequate energy intake d/ t GI dysfunction Signs/Symptoms as evidenced by 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 2) Close monitoring of weights and labs. Question accuracy of TCU adm vs. acute care hospital bed wt. 3) Regular diet as tolerated with 120ml frozen chocolate ensure enlive BID with lunch/ dinner and 120 ml frozen apple ensure clear with breakfast; will add fiber restriction as intake improves at meals. 4) Will discontinue 120 ml ensure enlive 4 times per day w/ medpass as ordered - give only at meals - encourage res to eat snacks between meals. 5) Will adjust ONS and diet as needed given intake at meals. Lab / Micro Data Result Diagrams: 03/19/22 06:55 03/19/22 06:55 Labs: Laboratory Results - last 24 hr 03/18/22 19:35: POC Glucose 162 H 03/18/22 23:59: POC Glucose 164 H 03/19/22 06:22: POC Glucose 138 H 03/19/22 06:55: Sodium 140, Potassium 4.5, Chloride 113 H, Carbon Dioxide 22.0, Anion Gap 5, BUN 27 H, Creatinine 0.61, Estim Creat Clear Calc 37.12, Est GFR (MDRD) Af Amer 121, Est GFR (MDRD) Non-Af 100, BUN/Creatinine Ratio 44.1 H, Glucose 141 H, Calcium 7.8 L 03/19/22 06:55: WBC 25.2 H, RBC 3.81 L, Hgb 10.6 L, Hct 33.5 L, MCV 87.9, MCH 27.8, MCHC 31.6 L, RDW Std Deviation 47.6 H, RDW Coeff of Rhonda 14.8 H, Plt Count 291, MPV 10.1, Neut % (Auto) Not Reportable, Absolute Neuts (auto) 23.9 H, Abs olute Lymphs (auto) 1.26, Total Counted 100, Neutrophils % (Manual) 82 H, Band Neutrophils % 10 H, Lymphocytes % (Manual) 5 L, Metamyelocytes % 3 H, Diff Path Review Reviewed, Platelet Estimate ADEQUATE, RBC Morphology NORM C+C 03/19/22 11:21: POC Glucose 122 H Charges/Coding Visit Charges Inpatient E&M: 16334 Init Hosp L3
[2022-03-19] MEDS: APIXABAN 5 MG TABLET 10 MG PO (17:47)
[2022-03-19 18:22] LABS: Erythrocyte Sedimentation Rate 32 mm/hr (0-30)
[2022-03-19] MEDS: 0.9% Saline Lock 10 ML Syringe IV (18:48)
[2022-03-19 20:28] VITALS: PULSE 49; RESP 16; O2SAT 96
[2022-03-20] MEDS: Vancomycin 125 MG/5 ML Susp PO.SYRINGE PO ×4 (00:19→16:51)
[2022-03-20] MEDS: APIXABAN 5 MG TABLET 10 MG PO ×2 (07:03→16:50)
[2022-03-20] MEDS: Insulin Glargine-YFGN 100 UNIT/ML Pen 10 UNIT SC (07:05)
[2022-03-20 08:27] VITALS: PULSE 48
[2022-03-20 10:22] LABS: Magnesium 2.3 mg/dL (1.6-2.6); Phosphorus 2.8 mg/dL (2.5-4.9)
[2022-03-20 15:19] VITALS: BP 126/59; PULSE 54; RESP 16; TEMP 36.4; O2SAT 95
--- NOTE | 2022-03-20 16:46 | NURSING ---
DR BRICEÑO NOTIFIED PT HR=48 THIS AM, RECHECK THIS AFTERNOON= 54. PT REPORTS FEELING DRAINED TODAY AFTER BEING UP SEVERAL TIMES LAST PM D/T NIGHT SWEATS. NNO, CONTINUE TO MONITOR.
[2022-03-20] MEDS: TPN - Clinimix E 8%-14% Soln 2,000 ML with Multivitamins 10 ML, Trace Elements 1 ML, Fo... 42 ML IV (16:50)
[2022-03-21] MEDS: Vancomycin 125 MG/5 ML Susp PO.SYRINGE PO ×5 (00:26→23:41)
[2022-03-21 00:51] LABS: Bedside Glucose 153 mg/dL (74-106)
[2022-03-21] MEDS: APIXABAN 5 MG TABLET 10 MG PO ×2 (05:46→17:02)
[2022-03-21 06:31] LABS: Bedside Glucose 125 mg/dL (74-106)
[2022-03-21 06:54] LABS: Anion Gap 4 (5-15); BUN 31 mg/dL (7-18); BUN/Creat Ratio 43.4 RATIO (10-20); Calcium,Total 7.7 mg/dL (8.5-10.1); Chloride 110 mmol/L (98-107); Creatinine, Serum 0.72 mg/dL (0.55-1.02); EST Glomerular Filtration Rate 83 mL/min (>60); Est Glom Filt Rate - Afr Amer 101 mL/min (>60); Estimated Creatinine Clearance 37.12 ml/min; Glucose 138 mg/dL (74-106); Magnesium 2.3 mg/dL (1.6-2.6); Phosphorus 3.2 mg/dL (2.5-4.9); Potassium 4.5 mmol/L (3.5-5.1); Sodium Level 139 mmol/L (136-145)
[2022-03-21] MEDS: Insulin Glargine-YFGN 100 UNIT/ML Pen 10 UNIT SC (08:09)
[2022-03-21 15:03] VITALS: BP 140/62; PULSE 54; RESP 18; TEMP 36.4; O2SAT 96
[2022-03-21] MEDS: TPN - Clinimix E 8%-14% Soln 2,000 ML with Multivitamins 10 ML, Trace Elements 1 ML, Fo... 42 ML IV (16:58)
[2022-03-21 23:51] LABS: Bedside Glucose 166 mg/dL (74-106)
[2022-03-22] MEDS: APIXABAN 5 MG TABLET 10 MG PO ×2 (05:25→17:52)
[2022-03-22] MEDS: Vancomycin 125 MG/5 ML Susp PO.SYRINGE PO ×3 (05:25→17:52)
[2022-03-22 06:26] LABS: Anion Gap 6 (5-15); BUN 34 mg/dL (7-18); BUN/Creat Ratio 49.2 RATIO (10-20); Calcium,Total 7.5 mg/dL (8.5-10.1); Chloride 110 mmol/L (98-107); Creatinine, Serum 0.69 mg/dL (0.55-1.02); EST Glomerular Filtration Rate 87 mL/min (>60); Est Glom Filt Rate - Afr Amer 105 mL/min (>60); Estimated Creatinine Clearance 37.12 ml/min; Glucose 137 mg/dL (74-106); Magnesium 2.4 mg/dL (1.6-2.6); Potassium 4.4 mmol/L (3.5-5.1); Sodium Level 139 mmol/L (136-145)
[2022-03-22 06:30] LABS: Bedside Glucose 142 mg/dL (74-106)
[2022-03-22] MEDS: Insulin Glargine-YFGN 100 UNIT/ML Pen 10 UNIT SC (07:47)
[2022-03-22 11:45] LABS: Bedside Glucose 128 mg/dL (74-106)
[2022-03-22 13:43] VITALS: BP 127/62; PULSE 63; RESP 16; TEMP 36.2; O2SAT 98
[2022-03-22] MEDS: 0.9% Saline Lock 10 ML Syringe IV ×2 (15:48→18:13)
[2022-03-22] MEDS: TPN - Clinimix E 8%-14% Soln 2,000 ML with Multivitamins 10 ML, Trace Elements 1 ML, Fo... 42 ML IV (15:48)
--- NOTE | 2022-03-22 16:26 | CASEMGMT ---
Social Work See attached assessment for complete details. Met with patient in room. Introduced self and social service director role. Patient agreeable to speak with this social service director. MOLST form completed. Patient wishes to be a Full Code. Medical team aware. Patient plans to discharge to home with son and [id number] at time of discharge. Iggy Rocha MSW, FRANKLIN-S
[2022-03-22 18:25] LABS: Bedside Glucose 176 mg/dL (74-106)
[2022-03-23] MEDS: Vancomycin 125 MG/5 ML Susp PO.SYRINGE PO ×5 (00:17→23:54)
[2022-03-23] MEDS: Menthol/Lanolin/Calamine/Znox 113 GM Tube 1 APPLIC TOPICAL ×3 (00:17→17:41)
[2022-03-23 01:41] LABS: Bedside Glucose 131 mg/dL (74-106)
[2022-03-23] MEDS: APIXABAN 5 MG TABLET 10 MG PO ×2 (05:27→17:37)
[2022-03-23] MEDS: 0.9% Saline Lock 10 ML Syringe IV ×3 (05:29→17:38)
[2022-03-23 06:01] LABS: Anion Gap 3 (5-15); BUN 35 mg/dL (7-18); BUN/Creat Ratio 49.2 RATIO (10-20); Calcium,Total 7.6 mg/dL (8.5-10.1); Chloride 109 mmol/L (98-107); Creatinine, Serum 0.71 mg/dL (0.55-1.02); EST Glomerular Filtration Rate 84 mL/min (>60); Est Glom Filt Rate - Afr Amer 101 mL/min (>60); Estimated Creatinine Clearance 37.12 ml/min; Glucose 132 mg/dL (74-106); Magnesium 2.6 mg/dL (1.6-2.6); Phosphorus 2.9 mg/dL (2.5-4.9); Potassium 4.5 mmol/L (3.5-5.1); Sodium Level 139 mmol/L (136-145)
[2022-03-23 06:46] LABS: Bedside Glucose 119 mg/dL (74-106)
[2022-03-23] MEDS: Insulin Glargine-YFGN 100 UNIT/ML Pen 10 UNIT SC (06:48)
--- NOTE | 2022-03-23 12:36 | NS ---
Calorie count ordered for 03/23, 03/24, and 03/25. Please record percentage of each food and supplements consumed on Res menus and leave menus in room for dietitian to collect. Please note any snacks consumed. Call dietitian w/ questions at [phone]. Vicente Hurt MS, RDN, LD
[2022-03-23 13:26] LABS: Bedside Glucose 166 mg/dL (74-106)
[2022-03-23 14:52] VITALS: BP 137/68; PULSE 64; RESP 15; TEMP 36.4; O2SAT 95
--- NOTE | 2022-03-23 16:02 | CHAPLAIN ---
Type of Pastoral Visit _x__ Initial Visit ___ Follow-up Visit ___ On-call Visit ___ General Patient Visit ___ Spiritual Assessment ___ Family Conference ___ Bereavement ___ Rapid Response ___ Code Blue ___ Other (describe below) Pastoral Care Referral From _x__ Patient ___ Family ___ Nurse ___ Physician ___ General Science Teacher ___ Log Turner ___ Other (describe below) Sacrament/Intervention _x__ Active listening ___ Anointing ___ Restorationism ___ Bereavement ___ Communion ___ Berna exploration ___ ___ Life review _x__ Prayer ___ Reconciliation ___ Sacrament of Sick _x__ Supportive presence ___ Wedding ___ Other (describe below) Pastoral Comments patient has been seen in previous admissions and most recently when in [facility]; pt is sitting in chair and more engaged in conversation than in the past; 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
[2022-03-24 01:20] LABS: Bedside Glucose 102 mg/dL (74-106)
[2022-03-24] MEDS: Menthol/Lanolin/Calamine/Znox 113 GM Tube 1 APPLIC TOPICAL ×2 (06:04→17:52)
[2022-03-24] MEDS: APIXABAN 5 MG TABLET 10 MG PO ×2 (06:05→17:52)
[2022-03-24] MEDS: Vancomycin 125 MG/5 ML Susp PO.SYRINGE PO ×3 (06:15→17:52)
[2022-03-24 06:25] LABS: Bedside Glucose 87 mg/dL (74-106)
[2022-03-24 06:25] LABS: Anion Gap 6 (5-15); BUN 30 mg/dL (7-18); BUN/Creat Ratio 42.7 RATIO (10-20); Calcium,Total 7.5 mg/dL (8.5-10.1); Chloride 109 mmol/L (98-107); EST Glomerular Filtration Rate 85 mL/min (>60); Est Glom Filt Rate - Afr Amer 103 mL/min (>60); Estimated Creatinine Clearance 37.12 ml/min; Glucose 96 mg/dL (74-106); Magnesium 2.3 mg/dL (1.6-2.6); Phosphorus 3.4 mg/dL (2.5-4.9); Potassium 4.7 mmol/L (3.5-5.1); Sodium Level 140 mmol/L (136-145)
[2022-03-24] MEDS: Insulin Glargine-YFGN 100 UNIT/ML Pen 10 UNIT SC (09:02)
--- NOTE | 2022-03-24 10:39 | NURSING ---
pt c/o itching and redness noted to right inner FA. Will notify Dr. Ruelas
--- NOTE | 2022-03-24 11:02 | NURSING ---
Discussed code status with pt, explained the differences. pt A&Ox3 and stated she has discussed this with her grand-daughter Chris and said they are in agreement. pt stated she wants to be an DNRCCA with No intubation.
--- NOTE | 2022-03-24 13:25 | CASEMGMT ---
Social Work IDT met with patient and gddtr via conference call for care plan meeting. Discussed patient's progress in PT/OT/ST/SN. Explained Medicare benefit. Encouraged to contact secondary insurance to ensure copay coverage. The goal is for pt to return home with son and DIL with almost 24/7 care assistance. Pt was independent prior not using an AD, and has 2 steps to enter. SW to continue to follow for discharge planning. Fadumo Adamson, SUPERVISOR BLAST FURNACE LOSS PREVENTION RESEARCH ENGINEER
[2022-03-24 15:43] VITALS: BP 130/69; PULSE 71; RESP 18; TEMP 36.4; O2SAT 98
[2022-03-25] MEDS: Vancomycin 125 MG/5 ML Susp PO.SYRINGE PO ×4 (00:13→17:13)
[2022-03-25] MEDS: Menthol/Lanolin/Calamine/Znox 113 GM Tube 1 APPLIC TOPICAL ×2 (05:12→17:10)
[2022-03-25] MEDS: APIXABAN 5 MG TABLET 10 MG PO ×2 (05:12→17:08)
[2022-03-25 06:20] LABS: Bedside Glucose 93 mg/dL (74-106)
[2022-03-25 06:37] LABS: Anion Gap 7 (5-15); BUN 24 mg/dL (7-18); Calcium,Total 7.6 mg/dL (8.5-10.1); Chloride 107 mmol/L (98-107); EST Glomerular Filtration Rate 102 mL/min (>60); Est Glom Filt Rate - Afr Amer 123 mL/min (>60); Estimated Creatinine Clearance 37.12 ml/min; Glucose 97 mg/dL (74-106); Magnesium 2.4 mg/dL (1.6-2.6); Phosphorus 3.3 mg/dL (2.5-4.9); Potassium 4.5 mmol/L (3.5-5.1); Sodium Level 140 mmol/L (136-145)
[2022-03-25] MEDS: Insulin Glargine-YFGN 100 UNIT/ML Pen 10 UNIT SC (07:25)
[2022-03-25] MEDS: 0.9% Saline Lock 10 ML Syringe IV ×2 (11:31→17:08)
--- NOTE | 2022-03-25 11:39 | CASEMGMT ---
Social Work BIMS and PHQ-9 completed for MDS assessment. Fadumo Adamson, SEMICONDUCTOR LAB TECHNICIAN CALCIMINER
[2022-03-25 14:04] VITALS: BP 124/68; PULSE 70; RESP 18; TEMP 36.2; O2SAT 98
--- NOTE | 2022-03-25 14:55 | NURSING ---
notified Chris, pts granddaughter (next to kin), of positive staff member of [employer].
[2022-03-26] MEDS: Vancomycin 125 MG/5 ML Susp PO.SYRINGE PO ×4 (00:05→17:47)
[2022-03-26] MEDS: Menthol/Lanolin/Calamine/Znox 113 GM Tube 1 APPLIC TOPICAL ×2 (05:55→17:48)
[2022-03-26] MEDS: APIXABAN 5 MG TABLET 10 MG PO ×2 (06:04→17:47)
[2022-03-26] MEDS: Insulin Glargine-YFGN 100 UNIT/ML Pen 10 UNIT SC (06:04)
[2022-03-26 06:10] LABS: Hematocrit 35.6 % (37-47); Hemoglobin 11.5 g/dL (12.0-15.0); Mean Corp Hgb Conc 32.3 g/dL (32-36); Mean Corpuscular Hgb 27.8 pg (27.0-32.0); Mean Platelet Vol. 11.2 fl (6.2-12.0); POSITIVE COUNT YES; POSITIVE MORPHOLOGY YES; Platelet Count 236 K/mm3 (150-450); RBC Distribution Width SD 48.7 fl (35.1-43.9); Red Blood Count 4.14 M/mm3 (4.2-5.4); White Blood Count 20.1 K/mm3 (4.4-11.0)
[2022-03-26 06:16] LABS: Bedside Glucose 100 mg/dL (74-106)
[2022-03-26 06:20] LABS: Differential Indicated MANUAL DIFF
[2022-03-26 06:39] LABS: Anion Gap 6 (5-15); BUN 26 mg/dL (7-18); BUN/Creat Ratio 37.2 RATIO (10-20); Calcium,Total 7.6 mg/dL (8.5-10.1); Chloride 107 mmol/L (98-107); EST Glomerular Filtration Rate 86 mL/min (>60); Est Glom Filt Rate - Afr Amer 104 mL/min (>60); Estimated Creatinine Clearance 37.12 ml/min; Glucose 99 mg/dL (74-106); Magnesium 2.4 mg/dL (1.6-2.6); Phosphorus 3.8 mg/dL (2.5-4.9); Potassium 4.5 mmol/L (3.5-5.1); Sodium Level 140 mmol/L (136-145)
[2022-03-26 06:41] LABS: Platelet Estimate ADEQUATE (ADEQ)
[2022-03-26 06:42] LABS: Anisocytosis 1+
[2022-03-26 06:44] LABS: Absolute Lymphocyte Count 1.41 X10^3/uL (0.83-4.51); Absolute Neutrophil Count 17.5 X10^3/uL (2.0-7.7)
[2022-03-26 06:47] LABS: Lymphocyte 7 % (19-41); Monocyte 2 % (0-10); Myelocyte 4 % (0-0); Neutrophil-Segmented 87 % (47-70); Total Cells Counted 100 (MANUAL DIFF)
[2022-03-26] MEDS: Tuberculin,Purif.prot.deriv. 50 TU/ML Vial 0.1 ML ID (10:02)
[2022-03-26] MEDS: 0.9% Saline Lock 10 ML Syringe IV (10:37)
[2022-03-26 10:38] VITALS: PULSE 75; RESP 18; O2SAT 95
[2022-03-26 13:54] LABS: Pathologist Review Reviewed
[2022-03-26 15:20] VITALS: BP 133/61; PULSE 75; RESP 18; TEMP 36.8; O2SAT 95
[2022-03-27] MEDS: Vancomycin 125 MG/5 ML Susp PO.SYRINGE PO ×4 (00:51→17:11)
[2022-03-27] MEDS: Menthol/Lanolin/Calamine/Znox 113 GM Tube 1 APPLIC TOPICAL ×2 (06:18→17:11)
[2022-03-27] MEDS: APIXABAN 5 MG TABLET PO ×2 (06:18→17:12)
[2022-03-27] MEDS: Insulin Glargine-YFGN 100 UNIT/ML Pen 10 UNIT SC (06:19)
[2022-03-27] MEDS: Acetaminophen 500 MG Tablet 1000 MG PO (06:22)
[2022-03-27] MEDS: 0.9% Saline Lock 10 ML Syringe IV ×2 (06:25→17:11)
[2022-03-27 06:56] LABS: Bedside Glucose 120 mg/dL (74-106)
[2022-03-27 08:05] LABS: Anion Gap 8 (5-15); BUN 24 mg/dL (7-18); BUN/Creat Ratio 36.3 RATIO (10-20); Calcium,Total 7.6 mg/dL (8.5-10.1); Chloride 105 mmol/L (98-107); Creatinine, Serum 0.66 mg/dL (0.55-1.02); EST Glomerular Filtration Rate 91 mL/min (>60); Est Glom Filt Rate - Afr Amer 110 mL/min (>60); Estimated Creatinine Clearance 37.12 ml/min; Glucose 112 mg/dL (74-106); Magnesium 2.2 mg/dL (1.6-2.6); Phosphorus 3.1 mg/dL (2.5-4.9); Potassium 4.4 mmol/L (3.5-5.1); Sodium Level 138 mmol/L (136-145)
[2022-03-27 14:37] VITALS: BP 128/59; PULSE 71; RESP 18; TEMP 36.9; O2SAT 97
[2022-03-28] MEDS: Vancomycin 125 MG/5 ML Susp PO.SYRINGE PO ×5 (00:34→23:53)
--- NOTE | 2022-03-28 04:15 | NURSING ---
Weight not obtained this am. Readings have been stable. Off TPN. Plan to ask for order to change frequency and will report to oncoming nurse.
[2022-03-28] MEDS: APIXABAN 5 MG TABLET PO ×2 (05:03→17:40)
[2022-03-28] MEDS: Menthol/Lanolin/Calamine/Znox 113 GM Tube 1 APPLIC TOPICAL ×2 (05:21→17:41)
[2022-03-28 06:25] LABS: Bedside Glucose 109 mg/dL (74-106)
[2022-03-28 07:39] LABS: Anion Gap 8 (5-15); BUN 21 mg/dL (7-18); Calcium,Total 7.5 mg/dL (8.5-10.1); Chloride 105 mmol/L (98-107); Creatinine, Serum 0.66 mg/dL (0.55-1.02); EST Glomerular Filtration Rate 92 mL/min (>60); Est Glom Filt Rate - Afr Amer 111 mL/min (>60); Glucose 107 mg/dL (74-106); Magnesium 2.5 mg/dL (1.6-2.6); Potassium 4.5 mmol/L (3.5-5.1); Sodium Level 139 mmol/L (136-145)
[2022-03-28] MEDS: Insulin Glargine-YFGN 100 UNIT/ML Pen 10 UNIT SC (09:06)
[2022-03-28 15:27] VITALS: BP 145/68; PULSE 80; RESP 16; TEMP 36.5; O2SAT 95
[2022-03-28 16:35] LABS: Bedside Glucose 151 mg/dL (74-106)
[2022-03-28] MEDS: 0.9% Saline Lock 10 ML Syringe IV (17:47)
[2022-03-29] MEDS: Menthol/Lanolin/Calamine/Znox 113 GM Tube 1 APPLIC TOPICAL ×2 (05:30→18:48)
[2022-03-29] MEDS: APIXABAN 5 MG TABLET PO ×2 (05:37→18:48)
[2022-03-29] MEDS: Vancomycin 125 MG/5 ML Susp PO.SYRINGE PO ×3 (05:38→18:47)
[2022-03-29 06:18] LABS: Anion Gap 7 (5-15); BUN 21 mg/dL (7-18); Calcium,Total 7.7 mg/dL (8.5-10.1); Chloride 105 mmol/L (98-107); Creatinine, Serum 0.66 mg/dL (0.55-1.02); EST Glomerular Filtration Rate 92 mL/min (>60); Est Glom Filt Rate - Afr Amer 111 mL/min (>60); Glucose 111 mg/dL (74-106); Magnesium 2.5 mg/dL (1.6-2.6); Phosphorus 2.8 mg/dL (2.5-4.9); Potassium 4.4 mmol/L (3.5-5.1); Sodium Level 140 mmol/L (136-145)
[2022-03-29 06:21] LABS: Bedside Glucose 141 mg/dL (74-106)
[2022-03-29] MEDS: Insulin Glargine-YFGN 100 UNIT/ML Pen 10 UNIT SC (07:31)
[2022-03-29 08:58] VITALS: PULSE 60; RESP 16; O2SAT 95
[2022-03-29 15:40] VITALS: BP 151/65; PULSE 60; RESP 16; TEMP 36.4; O2SAT 95
--- NOTE | 2022-03-29 16:40 | NURSING ---
This nurse called Dr. Draper's office to see how long patient will continue on solu-medrol. This nurse was told solu-medrol will continue until patient is started on Stelara. This nurse was told patient could be switched to prednisone. Patient is complaining of night sweats and feeling bad at times and would be ok with the prednisone if her doctor switched her over to it.
[2022-03-30] MEDS: Vancomycin 125 MG/5 ML Susp PO.SYRINGE PO ×4 (03:40→17:50)
[2022-03-30] MEDS: 0.9% Saline Lock 10 ML Syringe IV ×3 (06:34→18:04)
[2022-03-30] MEDS: Insulin Glargine-YFGN 100 UNIT/ML Pen 10 UNIT SC (06:34)
[2022-03-30] MEDS: APIXABAN 5 MG TABLET PO ×2 (06:35→17:50)
[2022-03-30] MEDS: Menthol/Lanolin/Calamine/Znox 113 GM Tube 1 APPLIC TOPICAL ×2 (06:36→17:50)
[2022-03-30 06:45] LABS: Bedside Glucose 117 mg/dL (74-106)
[2022-03-30 13:32] VITALS: BP 151/61; PULSE 76; RESP 16; TEMP 36.3; O2SAT 97
--- NOTE | 2022-03-30 14:54 | CASEMGMT ---
Social Work Spoke with pt's gddtr to follow up on DC plans. Gddtr reports pt would like additional time for strengthening prior to DC. Explained current therapy levels and understanding pt may improve with the recommendation medication once she discharges. Gddtr expressed understanding and wants pt to feel comfortable to DC. SW offered to discuss setting DC date for next week if pt/gddtr does not elective earlier. Gddtr agreeable. SW to continue to follow. Fadumo Adamson, AIRPORT CLERK GOLD NIB GRINDER
[2022-03-30] MEDS: Alteplase 2 MG/2 ML Vial IV (21:13)
--- NOTE | 2022-03-30 21:22 | NURSING ---
Addendum entered by Dipak López 03/31/22 03:34: Correction: 5mL blood aspirated, then flushed with NS 10mL. Addendum entered by Dipak López 03/31/22 03:28: Purple lumen checked for blood return at 22:00. Cathflo effective. Blood return noted, 2mL pulled, lumen flushed with NS 10mL, curos cap applied. Will continue to monitor. Original Note: Cathflo administered in purple lumen at this time. Will check for blood return in approximately 30 minutes.
[2022-03-30 22:00] VITALS: PULSE 69; RESP 16; O2SAT 94
[2022-03-31] MEDS: Vancomycin 125 MG/5 ML Susp PO.SYRINGE PO ×4 (00:25→17:18)
[2022-03-31 06:25] LABS: Bedside Glucose 115 mg/dL (74-106)
[2022-03-31] MEDS: APIXABAN 5 MG TABLET PO ×2 (06:51→17:18)
[2022-03-31] MEDS: Insulin Glargine-YFGN 100 UNIT/ML Pen 10 UNIT SC (06:52)
[2022-03-31] MEDS: Menthol/Lanolin/Calamine/Znox 113 GM Tube 1 APPLIC TOPICAL ×2 (07:08→17:20)
[2022-03-31] MEDS: 0.9% Saline Lock 10 ML Syringe IV (11:44)
--- NOTE | 2022-03-31 12:50 | NURSING ---
Nutritional Chemist Note: Interview and Section F of MDS complete.
--- NOTE | 2022-03-31 15:34 | NURSING ---
notifed Arian Jessica, patients granddaughter, of positive staff member for covid.
--- NOTE | 2022-03-31 15:40 | MDS.RN ---
Information for the mds was obtained from review of the clinical record, interview of resident, staff, and direct observation of resident's care.
[2022-03-31 15:41] VITALS: BP 137/63; PULSE 88; RESP 16; TEMP 36; O2SAT 97
[2022-04-01] MEDS: Vancomycin 125 MG/5 ML Susp PO.SYRINGE PO ×4 (00:10→18:04)
[2022-04-01] MEDS: APIXABAN 5 MG TABLET PO ×2 (06:07→18:03)
[2022-04-01] MEDS: Insulin Glargine-YFGN 100 UNIT/ML Pen 10 UNIT SC (06:08)
[2022-04-01] MEDS: Menthol/Lanolin/Calamine/Znox 113 GM Tube 1 APPLIC TOPICAL ×2 (06:10→16:45)
[2022-04-01 06:21] LABS: Bedside Glucose 96 mg/dL (74-106)
[2022-04-01] MEDS: predniSONE 20 MG Tablet 60 MG PO (08:28)
--- NOTE | 2022-04-01 12:42 | CHAPLAIN ---
Type of Pastoral Visit ___ Initial Visit _x__ Follow-up Visit ___ On-call Visit ___ General Patient Visit ___ Spiritual Assessment ___ Family Conference ___ Bereavement ___ Rapid Response ___ Code Blue ___ Other (describe below) Pastoral Care Referral From _x__ Patient ___ Family ___ Nurse ___ Physician ___ Custodial Laborer ___ Perfume Maker ___ Other (describe below) Sacrament/Intervention _x__ Active listening ___ Anointing ___ Taoism ___ Bereavement ___ Communion ___ Berna exploration ___ ___ Life review ___ Prayer ___ Reconciliation ___ Sacrament of Sick ___ Supportive presence ___ Wedding ___ Other (describe below) Pastoral Comments patient welcomes visit; pt again sighs and repeats I don't know during conversation; pt adds well just one day at a time and it's what it is; pt says she doesn't need anything; pt says she is expecting to go home next week and I guess we'll see;
[2022-04-01 15:10] VITALS: BP 133/59; PULSE 81; RESP 15; TEMP 36; O2SAT 96
--- NOTE | 2022-04-01 15:56 | CASEMGMT ---
Social Work Met with pt to discuss setting DC date, reiterating pt is adlib and may feel better once medication is given after DC. Pt requested to speak with gddtr about DC date. Contacted gddtr - she is agreeable to DC 04/07. [facility] and [facility]. Referral made to [facility] PT/OT/ST/SN and [employer]. Family to transport. Plan: DC home 04/07, [facility] PT/OT/ST/SN, [facility] Fadumo Adamson, WAGON PERSON WIND POWER PROJECT MANAGER
--- NOTE | 2022-04-01 20:18 | PCM.DC.SUM ---
Providers Date of Admission: 03/18/22 Primary Care Physician: IDALMIS Hollis Consultations 03/18/22 17:22 Consult: Gastroenterology Routine Consulting Provider: Jared Draper Reason for Consult: Currently on TPN EMERGENT Consult: No MD Notified: Yes Date Notified: 03/18/22 Time Notified: 17:22 Method of Notification: Answering Service Reason For Visit: ACUTE ABDOMINAL PAIN, U.C.FLARE UP, RECENT C DIFF Diagnosis Discharge Diagnosis (1) C. difficile colitis: Code(s): A04.72 - Enterocolitis due to Clostridium difficile, not specified as recurrent (2) Severe malnutrition: Status: Acute Code(s): E43 - Unspecified severe protein-calorie malnutrition (3) Ulcerative colitis: Code(s): K51.90 - Ulcerative colitis, unspecified, without complications (4) Leukocytosis: Status: Acute Code(s): D72.829 - Elevated white blood cell count, unspecified Plan 81 year old female with below past medical history hospitalized for abdominal pain secondary to ulcerative colitis, complicated by recurrent clostridium difficile, encephalopathy, electrolyte abnormalities, malnutrition, admitted to TCU with debility, here for rehabilitation, strengthening, TPN, prior to discharge home with family. Debility - PT/OT. Pain - Tylenol 1000mg q6h prn pain (1-10). Bowel - Monitor, high risk of diarrhea. Adult immunization - Administer pneumonia vaccine, covid19 vaccine, flu vaccine as appropriate. DVT prophylaxis - Lovenox 40mg sc daily. Nutrition - Ensure Enlive 120ml 4x/day, TPN. Steroid induced hyperglycemia - Glargine 10 units daily, monitor blood sugar. Ulcerative colitis - Solu-medrol 60mg iv bid, consult Dr. Draper. Recurrent clostridium difficile - Vancomycin 125mg q6h. Medications at Discharge Home Medications apixaban 5 mg tablet (Eliquis) 5 mg PO BID 30 days #60 tabs 04/01/22 insulin glargine-yfgn 100 unit/mL (3 mL) subcutaneous pen 10 unit (0.1 mL) subcut DAILY Blood sugar 30 days #3 mL 04/01/22 prednisone 20 mg tablet 60 mg PO BREAKFAST 30 days #90 tabs 04/01/22 vancomycin 25 mg/mL oral solution (Firvanq) 125 mg (5 mL) PO Q6 30 days #600 mL 04/01/22 Hospital Course Operations None Procedures None Summary of Care Provided Minutes Spent on Discharge: 35 Hospital Course: ?81 year old female with below past medical history hospitalized for abdominal pain secondary to ulcerative colitis, complicated by recurrent clostridium difficile, encephalopathy, electrolyte abnormalities, malnutrition, admitted to TCU with debility, here for rehabilitation, strengthening, TPN, prior to discharge home with family. 03/19/2022 Doppler positive acute DVT right upper extremity, recommended Eliquis 5mg bid thru 06/19/2022. Discharge home with family 04/07/2022, [facility] PT/OT/ST/SN, Front wheeled walker. Physical Exam Const alert General Appearance: cooperative HEENT normocephalic Eyes PERRL and EOMs intact bilaterally Neck supple, no JVD and no carotid bruits Resp normal respiratory effort, normal air movement and clear to auscultation bilaterally Cardio regular rate and regular rhythm GI normal to inspection, nondistended, normoactive bowel sounds, non-tender and non-distended Extremity normal capillary refill General Extremity: Negative for edema Skin no rashes or lesions noted General Skin Exam: no breakdown Psych affect normal Appearance: appropriate Medical Records Data Medical Nutrition Assessment Dietitian: Malnutrition Criteria Met Start: 03/19/22 13:11 Freq: Status: Active Protocol: Document 03/31/22 16:57 JAROD (Rec: 03/31/22 16:57 [facility] [id number]) Nutrition Malnutrition Evidence of Malnutrition Exists Yes Malnutrition (severe): Chronic Evidenced By Suboptimal Energy Intake ( Moderate),Weight Loss ( Moderate),Physical Changes ( Moderate) Clinical Problem Chronic Disease or Condition Related Malnutrition Etiology severe, chronic malnutrition r /t inadequate energy intake d/ t GI dysfunction Signs/Symptoms as evidenced by hx of recent unintentional wt loss of 7. 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 2) Oral Nutrition Supplements (frozen): 4oz chocolate Ensure Enlive w/ breakfast; 4oz apple Ensure Clear AM snack; 4oz strawberry Ensure Enlive w / lunch; 4oz apple Ensure Clear PM snack; 4oz strawberry Ensure Enlive w/ dinner; 4oz mixed cline Ensure Clear HS snack. 3) Continue daily wts. Weight / BMI Weight Weight: 55.934 kg Body Mass Index (BMI) 24.7 ABG / Lab / Microbiology Data Result Diagrams: 03/26/22 05:45 03/29/22 05:32 Laboratory: Laboratory Results - last 24 hr 04/01/22 06:06: POC Glucose 96 Microbiology: Microbiology 03/29/22 10:50 Nasal Secretion SARS-CoV-2 Antigen (Rapid) - Final 03/25/22 20:42 Nasal Secretion SARS-CoV-2 Antigen (Rapid) - Final D/C Instructions Discharge Diet: No restrictions Discharge Activity: Return to Normal Activity, May Shower and Use Walker Weight Bearing Status: Weight bearing as tolerated Call your doctor if you observe: Fever of 101 or Higher, Inability to urinate, Inability to have a bowel movement, Shortness of breath, Dizziness, Fainting spells, Swelling in the ankles, Chest pain and Uncontrolled pain Additional Instructions: Discharge home with family 04/07/2022, [facility] PT/OT/ST/SN, Front wheeled walker. Please Follow Up With: Jared Draper DO When: 2 weeks. Meaningful Use Info Meaningful Use Diagnoses (Choose all that apply): None applicable Discharge Plan Admission Admit Date/Time: 03/18/22 16:54 Primary Reason for Your Visit: Debility. Attending Provider: Elier Ruelas Chi Primary Care Provider: Varinder Phoenix NP Consulting Providers: Jared Draper Instructions Additional Instructions / Restrictions: Discharge home with family 04/07/2022, [facility] PT/OT/ST/SN, Front wheeled walker. Discharge Orders/Prescriptions Prescriptions: New prednisone 20 mg Tablet 60 mg PO BREAKFAST 30 Days Qty: 90 0RF Eliquis 5 mg Tablet 5 mg PO BID 30 Days Qty: 60 0RF Firvanq 25 mg/mL Recon Soln 125 mg PO Q6 30 Days Qty: 600 0RF Continued insulin glargine-yfgn 100 unit/mL (3 mL) insulin pen 10 unit subcut DAILY 30 Days Qty: 3 0RF Discontinued Firvanq 25 mg/mL Recon Soln 125 mg PO Q6 Qty: 0 0RF enoxaparin 40 mg/0.4 mL syringe 40 mg subcut DAILY insulin lispro [Humalog KwikPen Insulin] 100 unit/mL insulin pen See Protocol subcut Q6 Protocol: 4. Sliding Scale Insulin High-Med Dosing Condition: 150-199 mg/dl = 2 units Condition: 200-259 mg/dl = 4 units Condition: 260-324 mg/dl = 6 units Condition: 325-374 mg/dl = 8 units Condition: 375-409 mg/dl = 10 units Condition: 410-449 mg/dl = 11 units Condition: Greater than 449 call physician Protocol Text: - Use for Total Daily Dose of Insulin 56-80 units - Patient who are insulin resistant or septic HIGH MEDIUM DOSING ALGORITHM Solu-Medrol (PF) 40 mg/mL recon soln 60 mg IV BID Ensure Enlive 0.08 gram-1.5 kcal/mL liquid 120 ml PO 4X/DAY Stelara 90 mg/mL syringe 90 mg subcut Q8W 360 Days Qty: 1 6RF Rx Instructions: Inject one syringe SQ every 8 weeks starting 8 weeks after induction infusion. Referrals / Follow Up: Varinder Phoenix GANG DRILL OPERATOR, GANG DRILL OPERATOR-C [Primary Care Provider] - Disposition Disposition (needs filled in before D/C Order can be placed): Home Health Service
[2022-04-01 22:44] VITALS: PULSE 83; O2SAT 97
[2022-04-02] MEDS: Vancomycin 125 MG/5 ML Susp PO.SYRINGE PO ×5 (05:30→23:05)
[2022-04-02] MEDS: APIXABAN 5 MG TABLET PO ×2 (05:30→17:09)
[2022-04-02] MEDS: Menthol/Lanolin/Calamine/Znox 113 GM Tube 1 APPLIC TOPICAL ×2 (05:30→17:10)
[2022-04-02 05:51] LABS: Absolute Lymphocyte Count 1.05 X10^3/uL (0.83-4.51); Absolute Neutrophil Count 15.5 X10^3/uL (2.0-7.7); Basophil# 0.02 X10^3/uL; Basophil% 0.1 % (0-1); Eosinophil# 0.03 X10^3/uL; Eosinophils% 0.2 % (0-5); Hemoglobin 11.2 g/dL (12.0-15.0); Lymphocyte # 1.05 X10^3/ul (0.83-4.51); Lymphocyte % 5.8 % (19-41); Mean Corpuscular Hgb 27.9 pg (27.0-32.0); Mean Corpuscular Volume 87.1 fL (81-99); Mean Platelet Vol. 10.9 fl (6.2-12.0); Monocyte# 1.14 X10^3/uL; Monocyte% 6.3 % (0-10); NRBC Flagged by Analyzer 0 % (0-5); Neutrophil # 15.54 X10^3/uL (2.7-7.7); Neutrophil % 86.3 % (47-70); Platelet Count 203 K/mm3 (150-450); RBC Distribution Width CV 17.4 % (11.6-14.6); RBC Distribution Width SD 54.2 fl (35.1-43.9); Red Blood Count 4.02 M/mm3 (4.2-5.4)
[2022-04-02 06:20] LABS: Bedside Glucose 90 mg/dL (74-106)
[2022-04-02 06:21] LABS: Anion Gap 6 (5-15); BUN 20 mg/dL (7-18); BUN/Creat Ratio 30.9 RATIO (10-20); Calcium,Total 7.6 mg/dL (8.5-10.1); Chloride 105 mmol/L (98-107); Creatinine, Serum 0.65 mg/dL (0.55-1.02); EST Glomerular Filtration Rate 94 mL/min (>60); Est Glom Filt Rate - Afr Amer 113 mL/min (>60); Glucose 92 mg/dL (74-106); Potassium 4.2 mmol/L (3.5-5.1); Sodium Level 141 mmol/L (136-145)
[2022-04-02] MEDS: predniSONE 20 MG Tablet 60 MG PO (08:01)
[2022-04-02] MEDS: 0.9% Saline Lock 10 ML Syringe IV (08:55)
[2022-04-02 13:45] VITALS: BP 134/65; PULSE 91; RESP 20; TEMP 36.5; O2SAT 96
[2022-04-03] MEDS: APIXABAN 5 MG TABLET PO ×2 (05:34→19:04)
[2022-04-03] MEDS: Vancomycin 125 MG/5 ML Susp PO.SYRINGE PO ×3 (05:34→19:03)
[2022-04-03] MEDS: Menthol/Lanolin/Calamine/Znox 113 GM Tube 1 APPLIC TOPICAL ×2 (05:35→19:04)
[2022-04-03 06:16] LABS: Bedside Glucose 87 mg/dL (74-106)
[2022-04-03] MEDS: predniSONE 20 MG Tablet 60 MG PO (08:02)
[2022-04-03 14:23] VITALS: BP 114/68; PULSE 68; RESP 16; TEMP 36.8; O2SAT 97
[2022-04-04] MEDS: Vancomycin 125 MG/5 ML Susp PO.SYRINGE PO ×5 (00:03→23:23)
[2022-04-04 06:16] LABS: Bedside Glucose 99 mg/dL (74-106)
[2022-04-04] MEDS: APIXABAN 5 MG TABLET PO ×2 (06:50→16:40)
[2022-04-04] MEDS: Insulin Glargine-YFGN 100 UNIT/ML Pen 10 UNIT SC (06:51)
[2022-04-04] MEDS: Menthol/Lanolin/Calamine/Znox 113 GM Tube 1 APPLIC TOPICAL ×2 (06:52→16:39)
[2022-04-04] MEDS: predniSONE 20 MG Tablet 60 MG PO (08:53)
[2022-04-04 12:35] VITALS: PULSE 83; RESP 16; O2SAT 97
[2022-04-04 16:00] VITALS: BP 148/66; PULSE 83; RESP 16; TEMP 36.6; O2SAT 97
[2022-04-05 06:21] LABS: Bedside Glucose 82 mg/dL (74-106)
[2022-04-05] MEDS: Vancomycin 125 MG/5 ML Susp PO.SYRINGE PO ×3 (06:54→17:15)
[2022-04-05] MEDS: APIXABAN 5 MG TABLET PO ×2 (06:55→17:15)
--- NOTE | 2022-04-05 08:29 | NURSING ---
Spoke w/ Dr. Ruelas this am re: low blood sugars. FBS 82 today. Fasting sugars have been less than 100 daily since pt was transitioned to oral Prednisone from IV Solumedrol. Pt does not take insulin at home. Verbal order received to dmitriy Nair.
[2022-04-05] MEDS: predniSONE 20 MG Tablet 60 MG PO (08:39)
[2022-04-05 15:52] VITALS: BP 143/71; PULSE 94; RESP 20; TEMP 36.2; O2SAT 96
[2022-04-05] MEDS: Menthol/Lanolin/Calamine/Znox 113 GM Tube 1 APPLIC TOPICAL (17:15)
[2022-04-05 20:48] VITALS: PULSE 94; RESP 16; O2SAT 97
[2022-04-06] MEDS: Vancomycin 125 MG/5 ML Susp PO.SYRINGE PO ×4 (00:40→17:11)
[2022-04-06 06:30] LABS: Bedside Glucose 74 mg/dL (74-106)
[2022-04-06] MEDS: APIXABAN 5 MG TABLET PO ×2 (06:39→17:11)
[2022-04-06] MEDS: predniSONE 20 MG Tablet 60 MG PO (09:32)
--- NOTE | 2022-04-06 10:09 | CASEMGMT ---
Social Work BIMS and PHQ-9 completed for MDS assessment. Fadumo Adamson, CROP ADJUSTER EMERGENCY DEPARTMENT RN
[2022-04-06 13:39] VITALS: BP 121/60; PULSE 89; RESP 15; TEMP 36.7; O2SAT 96
[2022-04-06 19:45] VITALS: PULSE 94; RESP 15; O2SAT 94
[2022-04-07] MEDS: Vancomycin 125 MG/5 ML Susp PO.SYRINGE PO ×3 (01:46→11:15)
[2022-04-07] MEDS: APIXABAN 5 MG TABLET PO (06:39)
[2022-04-07 06:45] LABS: Bedside Glucose 81 mg/dL (74-106)
[2022-04-07] MEDS: predniSONE 20 MG Tablet 60 MG PO (09:02)
[2022-04-07 09:04] VITALS: BP 158/71; PULSE 98; RESP 16; TEMP 36.3; O2SAT 98
[2022-04-07 09:26] VITALS: RESP 16
== END 2022-04-07 11:45 | disposition home health service (06) | DRG 371 ==
PROVIDERS: Internal Medicine Gastroenterology; Admitting Provider Family Medicine Geriatric Medicine; PCP Nurse Practitioner Family; Visit Provider Family Medicine Geriatric Medicine
DX: A04.71 Enterocolitis due to Clostridium difficile, recurrent (principal); E43 Unspecified severe protein-calorie malnutrition; I82.621 Acute embolism and thrombosis of deep veins of right upper extremity; K51.90 Ulcerative colitis, unspecified, without complications; Z68.1 Body mass index [BMI] 19.9 or less, adult; Z79.4 Long term (current) use of insulin; D64.9 Anemia, unspecified; M19.90 Unspecified osteoarthritis, unspecified site; Z79.01 Long term (current) use of anticoagulants; T38.0X5A Adverse effect of glucocorticoids and synthetic analogues, initial encounter; H26.9 Unspecified cataract; Z79.899 Other long term (current) drug therapy; R73.9 Hyperglycemia, unspecified; Z23 Encounter for immunization
CPT/HCPCS: 0013A; 36415; 80048; 82962; 83735; 84100; 85025; 85652; 86140; 87426; 87811; 91301; 92507; 92522; 97110; 97116; 97162; 97166; 97530; 97535; 97802; 97803; J2997; A4216

== ENCOUNTER → 2022-03-19 | Outpatient (CLI) | payer MEDICARE, OTHER, SELFPAY ==
--- NOTE | 2022-03-19 15:33 | VDUE_ITS ---
Reason For Study: Swelling Right Proximal Left Proximal Right jugular vein is spontaneous, widely Left subclavian vein is spontaneous, widely patent, phasic, with no intraluminal patent, phasic, with no intraluminal echogenicity noted. echogenicity noted. Rt Subclavian V and Rt Axillary V are dilated and non compressible consistent with acute DVT Rt BasilicV is dilated and non compressible consistent with acute SVT PICC line noted. Right Lower Arm Right radial vein is compressible. Right ulnar vein is compressible. Right Arm Right brachial vein is compressible. Right cephalic vein is compressible. Patient Safety Prelim given to Patients RN. VL/Venous Duplex US, Unilateral Interpretation Summary Acute deep vein thrombosis is noted in the right subclavian vein and axillary v ein. The remainder of the right upper extremity deep venous system appears patent. Acute superficial thrombophlebitis is noted in the right basilic vein. The right cephalic vein appears patent and com pressible. A PICC catheter is visualized in the right subclavian vein and axillary vein. Ordering Physician: Elier Ruelas Referring Physician: Varinder Phoenix Performed By: Yani Farah, CRISTI, RVT ?
== END | disposition home or self-care (01) ==
LOC: CVS 15:30
PROVIDERS: PCP Nurse Practitioner Family; Referring Provider Family Medicine Geriatric Medicine; Visit Provider Family Medicine Geriatric Medicine
DX: M79.89 Other specified soft tissue disorders (principal)
CPT/HCPCS: 93971

== ENCOUNTER → 2022-03-25 | Outpatient (CLI) | payer MEDICARE, OTHER, SELFPAY ==
--- NOTE | 2022-03-25 09:10 | VDUE_ITS ---
Reason For Study: Swelling Right Proximal Left Proximal Right jugular vein is spontaneous, widely Left subclavian vein is spontaneous, widely patent, phasic, with no intraluminal patent, phasic, with no intraluminal echogenicity noted. echogenicity noted. Subclavian and Axillary veins are partially noncompressible with minimal flow noted. Basilic vein is noncompressible consistent with acute SVT. Compared to 03/19/2022. PICC line noted. Right Lower Arm Right radial vein is compressible. Right ulnar vein is compressible. Right Arm Right axillary vein is spontaneous, patent, phasic, competent, compressible and demonstrates augmentation. Right brachial vein is compressible. Right cephalic vein is compressible. VL/Venous Duplex US, Unilateral Interpretation Summary Acute deep vein thrombosis is noted in the right subclavian vein and axillary v ein. The remainder of the right upper extremity deep venous system appears patent. Acute superficial thrombophlebitis is noted in the right basilic vein. The right cephalic vein appears patent and com pressible. A PICC catheter is visualized in the right subclavian vein and axillary vein. Slight i mprovement is noted in the acute deep vein thrombosis since a prior study on 03/19/2022. Ordering Physician: Elier Ruelas Referring Physician: Varinder Phoenix Performed By: Maryuri Spencer RVT ?
== END | disposition home or self-care (01) ==
LOC: CVS 09:09
PROVIDERS: PCP Nurse Practitioner Family; Referring Provider Family Medicine Geriatric Medicine; Visit Provider Family Medicine Geriatric Medicine
DX: I82.B11 Acute embolism and thrombosis of right subclavian vein (principal); R60.9 Edema, unspecified
CPT/HCPCS: 93971

== ENCOUNTER → 2022-04-16 | Outpatient (CLI) | payer MEDICARE, OTHER, SELFPAY ==
[2022-04-16 12:53] VITALS: BP 147/67; PULSE 107; RESP 16; TEMP 36.4; O2SAT 96; BMI 21.9
[2022-04-16] MEDS: 0.9% NaCl IVPB Med Flush (250 mL) 15 ML IV (13:30)
[2022-04-16] MEDS: 0.9% NaCl Peripheral Flush Adult/Peds IV (13:32)
[2022-04-16 14:38] VITALS: BP 129/66; PULSE 90; RESP 14; TEMP 35.8; O2SAT 97
== END | disposition home or self-care (01) ==
LOC: MEDOUTP 12:44
PROVIDERS: PCP Nurse Practitioner Family; Referring Provider Nurse Practitioner Adult Health; Visit Provider Nurse Practitioner Adult Health
DX: K51.90 Ulcerative colitis, unspecified, without complications (principal)
CPT/HCPCS: 96365; J7050; A4216; J3358

== ENCOUNTER → 2022-04-21 | Outpatient (CLI) | payer MEDICARE, OTHER, SELFPAY ==
[2022-04-21 13:24] LABS: Erythrocyte Sedimentation Rate 16 mm/hr (0-30)
[2022-04-21 13:25] LABS: Absolute Lymphocyte Count 2.88 X10^3/uL (0.83-4.51); Absolute Neutrophil Count 5.6 X10^3/uL (2.0-7.7); Basophil# 0.05 X10^3/uL; Basophil% 0.5 % (0-1); Eosinophil# 0.04 X10^3/uL; Eosinophils% 0.4 % (0-5); Hematocrit 39.7 % (37-47); Hemoglobin 12.4 g/dL (12.0-15.0); Lymphocyte # 2.88 X10^3/ul (0.83-4.51); Lymphocyte % 28.9 % (19-41); Mean Corp Hgb Conc 31.2 g/dL (32-36); Mean Corpuscular Hgb 28.5 pg (27.0-32.0); Mean Corpuscular Volume 91.3 fL (81-99); Mean Platelet Vol. 10.1 fl (6.2-12.0); Monocyte# 0.93 X10^3/uL; Monocyte% 9.3 % (0-10); NRBC Flagged by Analyzer 0 % (0-5); Neutrophil # 5.61 X10^3/uL (2.7-7.7); Neutrophil % 56.2 % (47-70); Platelet Count 648 K/mm3 (150-450); RBC Distribution Width CV 17.9 % (11.6-14.6); RBC Distribution Width SD 59.7 fl (35.1-43.9); Red Blood Count 4.35 M/mm3 (4.2-5.4)
[2022-04-21 13:37] LABS: ALB/GLOB Ratio 0.9 RATIO (0.9-2.4); AST(SGOT) 44 U/L (15-37); Alanine Aminotransfer ALT/SGPT 73 U/L (13-56); Albumin, Serum 3.1 g/dL (3.2-5.0); Alkaline Phosphatase 77 U/L (45-117); Anion Gap 4 (5-15); BUN 18 mg/dL (7-18); BUN/Creat Ratio 22.6 RATIO (10-20); CRP 4.45 mg/L (0.0-3.0); Chloride 108 mmol/L (98-107); EST Glomerular Filtration Rate 74 mL/min (>60); Est Glom Filt Rate - Afr Amer 89 mL/min (>60); Globulin 3.6 g/dL (2.2-4.2); Glucose 78 mg/dL (74-106); Potassium 3.9 mmol/L (3.5-5.1); Protein, Total 6.7 g/dL (6.4-8.2); Sodium Level 143 mmol/L (136-145)
== END | disposition home or self-care (01) ==
LOC: LAB 11:09
PROVIDERS: PCP Nurse Practitioner Family; Visit Provider Internal Medicine Gastroenterology
DX: R53.81 Other malaise (principal); K51.90 Ulcerative colitis, unspecified, without complications
CPT/HCPCS: 36415; 80053; 85025; 85652; 86140

== ENCOUNTER → 2022-10-15 | Outpatient (CLI) | payer MEDICARE, OTHER, SELFPAY ==
[2022-10-15 14:27] LABS: Erythrocyte Sedimentation Rate 13 mm/hr (0-30)
[2022-10-15 14:51] LABS: CRP < 2.90 mg/L (0.0-3.0)
== END | disposition home or self-care (01) ==
PROVIDERS: PCP Nurse Practitioner Family; Referring Provider Internal Medicine Gastroenterology; Visit Provider Internal Medicine Gastroenterology
DX: K51.90 Ulcerative colitis, unspecified, without complications (principal)
CPT/HCPCS: 36415; 85652; 86140

== ENCOUNTER 2022-11-20 08:47 | Emergency (ER) | payer MEDICARE, OTHER, SELFPAY ==
[2022-11-20 08:48] VITALS: BP 145/74; PULSE 62; RESP 18; TEMP 36.7; O2SAT 98; BMI 21.1
[2022-11-20] MEDS: HYDROmorphone 1 MG/ML Syringe 0.5 MG IV (10:15)
[2022-11-20] MEDS: Ondansetron 4 MG/2 ML Vial IV (10:15)
--- NOTE | 2022-11-20 10:25 | RAD_ITS ---
EXAM: XR Spine Lumbar 2 or 3 Views INDICATION: Female, 82 years old. Posttraumatic low back pain TECHNIQUE: AP and lateral views COMPARISON: None FINDINGS: Mild straightening of the normal lumbar lordosis. No focal listhesis. Mild levoscoliosis centered at L3. No vertebral body fracture. Moderate degenerative change of the intervertebral disc spaces from L1 through L5. [id number] degenerative changes of facet joints from L3 through S1. Transverse and spinous processes are intact. No paraspinal soft tissue densities. Mild degenerative change at bilateral sacroiliac joints. RAD/Lumbar Spine 2 or 3 Views IMPRESSION: 1. No acute abnormality of the lumbar spine. 2. Mild to moderate multilevel degenerative disc and facet disease throughout the lumbar spine. Electronically Signed: Aric Bustamante MD at 11:00 EST ,
[2022-11-20 10:28] LABS: Absolute Lymphocyte Count 2.03 X10^3/uL (0.83-4.51); Basophil% 1.1 % (0-1); Eosinophil# 0.05 X10^3/uL; Eosinophils% 0.6 % (0-5); Hemoglobin 14.8 g/dL (12.0-15.0); Lymphocyte # 2.03 X10^3/ul (0.83-4.51); Lymphocyte % 22.9 % (19-41); Mean Corp Hgb Conc 32.2 g/dL (32-36); Mean Corpuscular Hgb 28.2 pg (27.0-32.0); Mean Corpuscular Volume 87.8 fL (81-99); Mean Platelet Vol. 12.1 fl (6.2-12.0); Monocyte# 0.66 X10^3/uL; Monocyte% 7.4 % (0-10); NRBC Flagged by Analyzer 0 % (0-5); Neutrophil # 6.02 X10^3/uL (2.7-7.7); Neutrophil % 67.8 % (47-70); Platelet Count 190 K/mm3 (150-450); RBC Distribution Width CV 14.5 % (11.6-14.6); RBC Distribution Width SD 46.6 fl (35.1-43.9); Red Blood Count 5.24 M/mm3 (4.2-5.4); White Blood Count 8.9 K/mm3 (4.4-11.0)
[2022-11-20 10:39] LABS: Erythrocyte Sedimentation Rate 25 mm/hr (0-30)
[2022-11-20 10:58] LABS: ALB/GLOB Ratio 1.1 RATIO (0.9-2.4); AST(SGOT) 13 U/L (15-37); Alanine Aminotransfer ALT/SGPT 16 U/L (13-56); Albumin, Serum 3.6 g/dL (3.2-5.0); Alkaline Phosphatase 90 U/L (45-117); Anion Gap 7 (5-15); BUN 13 mg/dL (7-18); BUN/Creat Ratio 15.9 RATIO (10-20); Chloride 107 mmol/L (98-107); Creatinine, Serum 0.82 mg/dL (0.55-1.02); EST Glomerular Filtration Rate 71 mL/min (>60); Est Glom Filt Rate - Afr Amer 86 mL/min (>60); Estimated Creatinine Clearance 46.46 ml/min; Globulin 3.2 g/dL (2.2-4.2); Glucose 98 mg/dL (74-106); Potassium 4.3 mmol/L (3.5-5.1); Protein, Total 6.8 g/dL (6.4-8.2); Sodium Level 141 mmol/L (136-145)
[2022-11-20 12:34] VITALS: BP 123/57; PULSE 50; RESP 16; O2SAT 94
--- NOTE | 2022-11-20 13:22 | ED.VIS.BACK ---
HPI History of Present Illness Chief Complaint: Lower Extremity Injury Detail of Chief Complaint: Low back pain and right lower extremity pain Informant: patient and spouse/S.O. Onset/Context/Timing Onset: Weeks Context: Gradual Onset Injury: - (No history of trauma) Timing: Continuous and Waxes and wanes Quality: Dull and Aching Location: Lumbar and Right Leg Current Severity: Mild Maximum Severity: Moderate Worsened by: improves with Movement, Ambulation, Bending and Lifting Relieved by: Remaining Still Associated Symptoms Associated Symptoms: Radiation to Right Leg (The pain involves the entire right lower extremity and not along a dermatomal pattern.) and - (Denies saddle anesthesia or paresthesia. Denies foot drop. Denies buckling of her knees going up steps.); Negative for Numbness, Tingling, Radiation to Left Leg, Fever, Abdominal Pain, Dysuria, Unable to Ambulate, Unable to Transfer, Urinary Retention, Urinary Incontinence, Constipation or Fecal Incontinence Narrative Narrative: Patient is an 82-year-old woman who presents with back pain predominant in the right side right lower extremity pain. She has no bowel bladder dysfunction. She has no saddle paresthesias or anesthesia. She denies foot drop. Denies buckling when he is going up and down steps. She denies symptoms of claudication. She denies fever, chills night sweats. Denies weight gain or weight loss. She is on prednisone. She also is insulin-dependent diabetic. She is on Bactroban. She denies bruising easily. She denies trauma. She denies history of herniated disc. Denies history of back surgery. Prior similar symptoms: No Recent Illness/Hospitalization: No [facility] Medical History Arthritis C. difficile colitis Cataract Chronic anemia History of colon cancer History of colon cancer Seasonal allergies Severe malnutrition Ulcerative colitis Ulcerative colitis Home Medications apixaban 5 mg tablet (Eliquis) 5 mg PO BID 30 days #60 tabs 04/01/22 [Rx Last Taken Unknown] insulin glargine-yfgn 100 unit/mL (3 mL) subcutaneous pen 10 unit (0.1 mL) subcut DAILY Blood sugar 30 days #3 mL 04/01/22 [Rx Last Taken Unknown] prednisone 20 mg tablet 60 mg PO BREAKFAST 30 days #90 tabs 04/01/22 [Rx Last Taken Unknown] ustekinumab 90 mg/mL subcutaneous syringe (Stelara) 90 mg subcut Q8W #1 mL 04/29/22 [Rx Last Taken Unknown] hydrocodone-acetaminophen 5-325mg 5mg-325mg 1 tab PO Q6H PRN PRN Pain 5 days #20 TABLETS 11/20/22 [Rx Last Taken Unknown] Allergy/AdvReac Type Severity Reaction Status Date / Time Sulfa (Sulfonamide Allergy Rash Verified 11/20/22 08:48 Antibiotics) amoxicillin [From Augmentin] AdvReac Vomiting Verified 11/20/22 08:48 clavulanic acid AdvReac Vomiting Verified 11/20/22 08:48 [From Augmentin] fexofenadine [From Rose] AdvReac Other Verified 11/20/22 08:48 hydrocodone AdvReac out of it Verified 11/20/22 08:48 Family History Mother No problems noted. Grandmother Arthritis Grandfather Arthritis Other Heart disease Surgical History H/O breast biopsy History of appendectomy History of cholecystectomy S/P cholecystectomy S/P partial colectomy Surgical history of tubal ligation Social History household members: family housing: house Smoking Status: Never smoker alcohol intake: never substance use type: does not use what type of physical activity do you participate in: walking frequency: daily ROS ROS ED Constitutional Constitutional ED: Denies chills, fever(s), subjective, sweats or weight loss Eyes Eyes: Denies blurry vision or change in vision ENT ENT ED: Denies rhinorrhea or sore throat Cardiovascular Cardiovascular: Denies chest pain or palpitations Respiratory/Chest Respiratory/Chest: Denies dyspnea or dyspnea on exertion Gastrointestinal Gastrointestinal: Denies abdominal pain, constipation, melena, nausea or vomiting Genitourinary Genitourinary ED: Denies dysuria, hematuria or urinary frequency Musculoskeletal Musculoskeletal: Reports back pain and other Details: Further detail HPI narrative ; Denies arthralgias, myalgias or neck pain Integumentary Denies Abrasions or rash Neurologic Neurologic: Denies paresthesias or weakness Psychiatric Psychiatric: Denies anxiety or depression Endocrine Endocrinology: Denies cold intolerance or heat intolerance Hematologic/Lymphatic Hematologic/Lymphatic: Denies easy bleeding or easy bruising EXAM Physical Exam Const Vital Signs: 11/20/22 08:48 11/20/22 12:34 Temperature 98.1 F Temperature Source Oral Pulse Rate 62 50 L Respiratory Rate 18 16 Blood Pressure 145/74 H 123/57 H Blood Pressure Mean 97 79 Pulse Ox 98 94 Oxygen Delivery Method Room Air Room Air Positive well nourished and well developed; Negative for obese, cachectic, contractures or unkempt General Appearance ED: well developed and NAD; Negative for unkempt, cachectic, contractures or pallor Nutritional Appearance: Negative for cachectic or obese HEENT Reports moist mucous membranes HEENT Narrative: Atraumatic normocephalic. Ears normal. Nares patent. Uvula midline. No abnormality posterior pharynx. Eyes PERRL and EOMs intact bilaterally General Eye ED: Negative for pale conjunctiva or scleral icterus Neck no lymphadenopathy, supple and no JVD Resp normal respiratory effort and clear to auscultation bilaterally Cardio regular rhythm, S1 normal heart sound, S2 normal heart sound and no murmurs Rhythm: abnormal rhythm irregularly irregular GI normal to inspection, nondistended, normoactive bowel sounds, soft to palpation, non-tender, non-distended and no masses GI Narrative: No palpable pulsatile mass. No early. Back/Spine normal to inspection; Negative for no thoracic nor lumbar tenderness Back/Spine Narrative: There is pain ovation over the spinous processes lumbar vertebrae and sacrum. There is no pain the patient over the right or left iliac wing or pubic symphysis. There is no pain ovation over the right or left ischial tuberosity. Negative bowstring sign. EHL is intact bilaterally. 5/5 strength with plantar and dorsiflexion of her foot. 5/5 strength hip flexors. DP pulses palpable bilateral. There is normal sensation in the buttocks area. General Back: Negative for CVA tenderness Cervical Spine: Negative for cervical spine tenderness Thoracic Spine / Upper Back: Negative for paraspinal muscle tenderness Lumbar Spine / Lower Back: ROM limited and straight leg raise negative bilaterally Extremity normal to inspection and no clubbing, cyanosis or edema General Extremety ED: Negative for edema General Extremity: Negative for edema Neuro oriented x3 and no sensory deficits noted Sensorium / Orientation: alert Motor Exam: strength 5/5 throughout Deep Tendon Reflexes: Rt Patellar (L4): 2+, Lt Patellar (L4): 2+, Rt Ankle (S1): 2+ and Lt Ankle (S1): 2+ Deep Tendon Reflexes Back: Rt Patellar (L4): 2+, Lt Patellar (L4): 2+, Rt Ankle (S1): 2+ and Lt Ankle (S1): 2+ Plantar Reflex: Downgoing: bilateral (Negative clonus) Psych Appearance: Negative for unkempt Skin no rashes or lesions noted and no wounds General Skin Exam: Negative for jaundice or pallor MDM MDM MDM Narrative Medical decision making narrative: Patient is 82 years of age there is no history of trauma and pain has been present for some time x-ray was obtained to assess for any bony abnormality that would suggest discitis, osteomyelitis, blastic or lytic lesions. Also to evaluate the CBC was obtained to assess white count, H&H and platelet count. Competence metabolic panel was obtained to assess calcium, alkaline phosphatase. Sed rate was obtained as well. If greater than 100 need to evaluate for infectious or cancer. Lab Data Attestation: I reviewed the patient's lab results. Lab results narrative: CBC is normal. Comprehensive metabolic panel is normal. ESR is low. Labs: Laboratory Results - last 24 hr 11/20/22 11/20/22 10:15 10:15 WBC 8.9 RBC 5.24 Hgb 14.8 Hct 46.0 MCV 87.8 MCH 28.2 MCHC 32.2 RDW Std Deviation 46.6 H RDW Coeff of Rhonda 14.5 Plt Count 190 MPV 12.1 H Immature Gran % (Auto) 0.200 Neut % (Auto) 67.8 Lymph % (Auto) 22.9 Karnes % (Auto) 7.4 Eos % (Auto) 0.6 Baso % (Auto) 1.1 H Absolute Neuts (auto) 6.0 Absolute Lymphs (auto) 2.03 Nucleated RBC % 0 ESR 25 Sodium 141 Potassium 4.3 Chloride 107 Carbon Dioxide 27.0 Anion Gap 7 BUN 13 Creatinine 0.82 Estim Creat Clear Calc 46.46 Est GFR (MDRD) Af Amer 86 Est GFR (MDRD) Non-Af 71 BUN/Creatinine Ratio 15.9 Glucose 98 Calcium 9.0 Total Bilirubin 0.60 AST 13 L ALT 16 Alkaline Phosphatase 90 Total Protein 6.8 Albumin 3.6 Globulin 3.2 Albumin/Globulin Ratio 1.1 Radiography X-Ray: LS SPine (2 view x-ray reveals degenerative changes L1-S1. There is mild atherosclerotic disease of the aorta. The aorta is not dilated. There is no evidence of subluxation or dislocation. There is no spondylolisthesis or spondylosis. This was independently read and interpreted by me.) and Read by ED Physician Diagnostic Testing: Clinical Impression(s) from Imaging Studies Lumbar Spine X-Ray 11/20/22 10:25 IMPRESSION: 1. No acute abnormality of the lumbar spine. 2. Mild to moderate multilevel degenerative disc and facet disease throughout the lumbar spine. Electronically Signed: Aric Bustamante MD at 11:00 EST , Treatment and Re-Evaluation Narrative: Patient was reassessed at 1330. Her pain is improved. She feels a little woozy from the medicine she received. Discharge Plan Triage Chief Complaint: Lower Extremity Injury ED Provider: Iglesia Batista Dx/Rx/DC Orders Clinical Impression: DDD (degenerative disc disease), lumbar, History of ulcerative colitis Instructions: ED Degenerative Disk Disease Prescriptions: New hydrocodone-acetaminophen [hydrocodone-acetaminophen] 5-325 mg tablet 1 tab PO Q6H PRN PRN (Reason: Pain) 5 Days Qty: 20 0RF No Action prednisone 20 mg Tablet 60 mg PO BREAKFAST 30 Days Qty: 90 0RF Eliquis 5 mg Tablet 5 mg PO BID 30 Days Qty: 60 0RF insulin glargine-yfgn 100 unit/mL (3 mL) insulin pen 10 unit subcut DAILY 30 Days Qty: 3 0RF Stelara 90 mg/mL syringe 90 mg subcut Q8W Qty: 1 6RF Primary Care Provider: Varinder Phoenix NP Referrals: Varinder Phoenix NP, CARD READER-C [Primary Care Provider] - 3-5 Days Activity Restrictions/Additional Instructions: Since the tablet is scored you may break it in half. Disposition Disposition: Home, Self Care
[2022-11-20 13:48] VITALS: BP 160/54; PULSE 50; RESP 18; O2SAT 99
== END 2022-11-20 14:02 | disposition home or self-care (01) ==
PROVIDERS: Emergency Provider Emergency Medicine; PCP Nurse Practitioner Family; Visit Provider Emergency Medicine
DX: M51.36 Other intervertebral disc degeneration, lumbar region (principal); K51.90 Ulcerative colitis, unspecified, without complications; E11.9 Type 2 diabetes mellitus without complications; Z79.4 Long term (current) use of insulin; M19.90 Unspecified osteoarthritis, unspecified site; Z79.899 Other long term (current) drug therapy; Z79.01 Long term (current) use of anticoagulants
CPT/HCPCS: 72100; 80053; 85025; 85652; 96374; 96375; 99285; A4216; J2405

== ENCOUNTER → 2022-12-02 | Outpatient (CLI) | payer MEDICARE, OTHER, SELFPAY ==
--- NOTE | 2022-12-02 13:56 | RAD_ITS ---
STUDY: X-RAY - RIGHT TIBIA AND FIBULA REASON FOR EXAM: Female, 82 years old. Right knee pain. TECHNIQUE: 2 view(s) of the tibia and fibula were obtained. COMPARISON: None. FINDINGS: Osteopenia. Mild tricompartmental arthrosis. Normal visualized tibia. Normal visualized fibula. Normal soft tissues. RAD/Tibia & Fibula 2 Views IMPRESSION: Osteopenia with tricompartmental arthrosis of the knee. No other abnormality. Electronically Signed: Cm Galeana, at 15:26 EST ,
--- NOTE | 2022-12-02 14:02 | RAD_ITS ---
STUDY: X-RAY - RIGHT KNEE REASON FOR EXAM: Female, 82 years old. Anterior distal knee pain for one week. TECHNIQUE: 3 view(s) of the knee. COMPARISON: Right tibia-fibula, December 02, 2022 FINDINGS: Normal visualized distal femur. Normal visualized proximal tibia and fibula. Normal proximal tibiofibular articulation. There is no acute fracture, dislocation or destructive osseous pathology. There is mild degenerative arthrosis of the medial femorotibial compartment. There is mild degenerative arthrosis of the lateral femorotibial compartment. There is mild degenerative arthrosis of the patellofemoral articulation. There is no demonstrated joint effusion. The soft tissue structures are unremarkable. RAD/Knee 3 Views IMPRESSION: Mild arthrosis of the knee without acute abnormality. Findings are similar to that seen on the tibia-fibula study. Electronically Signed: Librado Nolen DO at 16:49 EST ,
== END | disposition home or self-care (01) ==
LOC: RAD 13:56
PROVIDERS: PCP Nurse Practitioner Family; Referring Provider Nurse Practitioner Family; Visit Provider Nurse Practitioner Family
DX: M25.561 Pain in right knee (principal); M79.604 Pain in right leg
CPT/HCPCS: 73562; 73590

== ENCOUNTER 2023-09-09 11:02 | Observation (INO) | payer MEDICARE, OTHER, SELFPAY ==
[2023-09-09] VITALS (10 sets, daily range): BP systolic 105–151; BP diastolic 52–67; PULSE 59–98; RESP 13–18; TEMP 36.3–37.4; O2SAT 95–100; BMI 20.7; BMI 20.6
--- NOTE | 2023-09-09 11:14 | EKG12_ITS ---
Test Reason : SYNCOPE Blood Pressure : / mmHG Vent. Rate : 064 BPM Atrial Rate : 064 BPM P-R Int : 130 ms QRS Dur : 068 ms QT Int : 408 ms P-R-T Axes : 069 071 085 degrees QTc Int : 420 ms Normal sinus rhythm Normal ECG Confirmed by ALLEN MCCONNELL, EVITA ([id number]), state editor ZAHIRA OBREGON ([id number]) on 09/12/2023 10:14:41 AM Referred By: Confirmed By:EVITA VILLA MD
--- NOTE | 2023-09-09 11:14 | RAD_ITS ---
STUDY: X-RAY CHEST REASON FOR EXAM: Female, 83 years old. Chest pain TECHNIQUE: Single AP portable view of the chest. COMPARISON: Comparison is made with prior study of February 12, 2022. FINDINGS: EKG electrodes are seen. Hyperinflation. The lungs are clear. There is no demonstrated pleural abnormality. Normal size heart. Normal mediastinum and stephanie. Normal visualized pulmonary arteries. Normal visualized aortic arch and descending thoracic aorta. There are degenerative changes of the visualized thoracic spine. Normal visualized ribs, clavicles, and shoulders. There is no demonstrated abnormality of the visualized soft tissue structures of the upper abdomen. RAD/Chest 1 View (Portable) IMPRESSION: Hyperinflation. The lungs are clear. Electronically Signed: Ja Bailey MD at 12:01 EST ,
--- NOTE | 2023-09-09 11:15 | EX.ED.DYSGE1 ---
HPI History of Present Illness Chief Complaint: Syncope Informant: patient Onset/Context/Timing Onset: Today Context: Sudden Onset Current Severity: Mild Maximum Severity: Moderate Narrative Narrative: 83-year-old female states she does not have any significant past medical history. No cardiac history. She felt fine today. She has had no recent illness. She got up from going the bathroom was walking back to her bedroom and had a syncopal event. She does not remember any symptoms prior to the event. This has happened before without diagnosis. Her son was in the home he heard her scream and go down and found her unconscious. She started coming to. Squad brought the patient in. Prior similar symptoms: Yes Recent Illness/Hospitalization: No PFSH PFSH Medical History Arthritis C. difficile colitis Cataract Chronic anemia History of colon cancer History of colon cancer Osteoarthritis Right anterior knee pain Seasonal allergies Severe malnutrition Ulcerative colitis Ulcerative colitis Home Medications meloxicam 7.5 mg tablet 7.5 mg PO DAILY PRN pain #30 tabs 12/02/22 [Rx Last Taken Unknown] ustekinumab 90 mg/mL subcutaneous syringe (Stelara) 90 mg subcut Q8W 12 months #1 mL 06/08/23 [Rx Last Taken Unknown] Allergy/AdvReac Type Severity Reaction Status Date / Time Sulfa (Sulfonamide Allergy Rash Verified 09/09/23 11:04 Antibiotics) amoxicillin [From Augmentin] AdvReac Vomiting Verified 09/09/23 11:04 clavulanic acid AdvReac Vomiting Verified 09/09/23 11:04 [From Augmentin] fexofenadine [From Rose] AdvReac Other Verified 09/09/23 11:04 hydrocodone AdvReac out of it Verified 09/09/23 11:04 Family History Mother No problems noted. Grandmother Arthritis Grandfather Arthritis Other Heart disease Surgical History H/O breast biopsy History of appendectomy History of cholecystectomy S/P cholecystectomy S/P partial colectomy Surgical history of tubal ligation Social History household members: family housing: house Smoking Status: Never smoker alcohol intake: never substance use type: does not use what type of physical activity do you participate in: walking frequency: daily ROS ROS ED ROS Narrative Patient denies recent illness. Review of Systems ROS Unobtainable: Denies due to encephalopathy Constitutional Constitutional ED: Denies chills or fever(s) Eyes Eyes: Denies blurry vision ENT ENT ED: Denies ear pain Cardiovascular Cardiovascular: Denies chest pain or palpitations Respiratory/Chest Respiratory/Chest: Denies cough or dyspnea Gastrointestinal Gastrointestinal: Denies abdominal pain Genitourinary Genitourinary ED: Denies dysuria or hematuria Musculoskeletal Musculoskeletal: Denies arthralgias or back pain Integumentary Denies abscess or Abrasions Neurologic Neurologic: Denies headache(s) Psychiatric Psychiatric: Denies anxiety or depression Endocrine Endocrinology: Denies cold intolerance Hematologic/Lymphatic Hematologic/Lymphatic: Reports none Allergic/Immunologic Allergic/Immunologic ED: Denies mouth swelling, tongue swelling or urticaria EXAM Physical Exam Narrative Exam Narrative: 83-year-old female no acute distress. Lying in bed. C-collar in place. Placed by squad. Vital signs are stable and afebrile. Her pulse ox is 99% on room air no hypoxia. H EENT exam pupils round reactive light. No signs of trauma to her face or scalp. Nontender. No hematoma. C-spine and neck completely nontender. She has no cervical spine tenderness. No tracheal tenderness she is moving her head from [id number] and flexion extension are intact. I took the c-collar off. Back and spine are nontender. No signs of trauma to her back. Lungs are clear. Heart regular rhythm and rate about 70 no murmur. Chest wall and ribs nontender. Abdomen soft nontender. Pelvic girdle intact. Moving all 4 extremities. Tender. No deformity. Normal range of motion. She has a very mild abrasion to her right elbow. Does not need to be repaired. No bony deformity. Full flexion extension. She has normal drapery operator strength. Normal dorsi plantarflexion. Neurologically she is awake and alert. She remembers before and after the event. She knows she is in the hospital. She is acting appropriately. She has no focal motor deficits. Const Vital Signs: 09/09/23 11:04 09/09/23 11:11 09/09/23 12:40 Temperature 97.4 F L 98.3 F Temperature Source Temporal Oral Pulse Rate 73 59 L Respiratory Rate 14 18 Respiratory Effort Normal Non-Labored Respiratory Pattern Normal Blood Pressure 105/64 105/67 Blood Pressure Mean 77 79 Pulse Ox 99 100 Oxygen Delivery Method Room Air Room Air 09/09/23 13:18 09/09/23 13:19 Temperature 97.3 F L Temperature Source Temporal Pulse Rate 72 72 Respiratory Rate 13 13 Respiratory Effort Respiratory Pattern Blood Pressure 138/52 H 138/52 H Blood Pressure Mean 80 80 Pulse Ox 96 96 Oxygen Delivery Method Room Air Room Air Positive well nourished and well developed; Negative for obese, cachectic, contractures or unkempt General Appearance ED: well developed and NAD; Negative for unkempt, cachectic, contractures, cyanotic, diaphoretic or pallor Nutritional Appearance: Negative for cachectic or obese HEENT Negative for trauma or tenderness Eyes PERRL and EOMs intact bilaterally General Eye ED: Negative for pale conjunctiva or scleral icterus Neck no lymphadenopathy, supple and no JVD General: Negative for tenderness Lymph Lymphatic: Negative for other Chest Wall inspection of chest normal and palpation of chest normal Chest: Negative for other Resp normal respiratory effort and clear to auscultation bilaterally Effort and Inspection: Negative for retractions Auscultation: Negative for rales, rhonchi or wheezes Cardio regular rate, regular rhythm, S1 normal heart sound, S2 normal heart sound and no murmurs Rate: Negative for bradycardia or tachycardic GI normal to inspection, nondistended, normoactive bowel sounds, non-tender, non-distended and no masses Inspection: Negative for abdominal distention Auscultation: normoactive bowel sounds Palpation: soft; Negative for tender or guarding Bladder / Kidney Exam: No other Back/Spine no CVA tenderness General Back: Negative for CVA tenderness Cervical Spine: Negative for cervical spine tenderness Thoracic Spine / Upper Back: Negative for thoracic spinal tenderness Lumbar Spine / Lower Back: Negative for lumbar spinal tenderness Extremity normal to inspection General Extremety ED: Negative for edema, tenderness or other findings General Extremity: Negative for edema or other findings Neuro oriented x3 and CN's II-XII intact bilaterally Sensorium / Orientation: alert; Negative for orientation impaired, lethargic or stuporous Motor Exam: strength 5/5 throughout Psych mental status grossly normal Appearance: Negative for unkempt Attitude: No agitated Mood & Affect: Negative for depressed, anxious or tearful Skin no rashes or lesions noted, no wounds and skin turgor normal General Skin Exam: elasticity normal; Negative for jaundice or pallor Lesions: No lesion noted Rashes: No rashes noted Trauma: Negative for abrasion Wounds: Negative for wounds noted MDM MDM MDM Narrative Medical decision making narrative: 83-year-old female with syncopal event. Exam is benign. Vital signs are stable. She undergo a cardiac workup. Repeat exam at 1:45 PM unchanged. Spoke to the patient and her son at bedside. I think she is too weak to go home. They would like her admitted. I will speak to the hospitalist. History & Record Review Discussion w/independent historian: Patient Additional record(s) reviewed:: Prior inpatient record, Prior outpatient record, Prior ED visit, Prior labs and No prior records Lab Data Attestation: I reviewed the patient's lab results. Lab results narrative: CBC unremarkable. White count of 9. H&H 15 and 48. Platelets 153. Chemistries show a gap of 6 normal BUN of 15 creatinine of 1. Glucose 102. Troponin 9. Rapid flu negative. Rapid COVID-positive. Labs: Laboratory Results - last 24 hr 09/09/23 11:30 WBC 9.7 RBC 5.24 Hgb 15.1 H Hct 48.6 H MCV 92.7 MCH 28.8 MCHC 31.1 L RDW Std Deviation 45.9 H RDW Coeff of Rhonda 13.4 Plt Count 153 MPV 12.6 H Immature Gran % (Auto) 0.400 Neut % (Auto) 73.5 H Lymph % (Auto) 16.3 L [place] % (Auto) 9.0 Eos % (Auto) 0.0 Baso % (Auto) 0.8 Absolute Neuts (auto) 7.1 Absolute Lymphs (auto) 1.59 Nucleated RBC % 0 Sodium 140 Potassium 4.3 Chloride 107 Carbon Dioxide 27.0 Anion Gap 6 BUN 15 Creatinine 1.04 H Estim Creat Clear Calc 36.01 Est GFR (MDRD) Af Amer 65 Est GFR (MDRD) Non-Af 54 L BUN/Creatinine Ratio 14.4 Glucose 102 Calcium 8.6 Troponin I High Sens 9 Radiography Chest X-Ray - ED: 1 View, Read by ED Physician, Read by Radiologist, Heart, Lungs, Mediastinum, Bony Structures, No Acute Disease and Chronic Changes Diagnostic Testing: Clinical Impression(s) from Imaging Studies Chest X-Ray 09/09/23 11:14 IMPRESSION: Hyperinflation. The lungs are clear. Electronically Signed: Ja Bailey MD at 12:01 EST , Elbow X-Ray 09/09/23 12:15 IMPRESSION: Normal x-ray examination of the elbow. Electronically Signed: Ja Bailey MD at 12:27 EST , Right elbow x-ray, 3 views, interpreted by myself and radiologist shows no acute abnormality. No fracture or dislocation. Chest x-ray portable single view interpreted by myself and the radiologist shows no acute abnormality. Rhythm Strip Rhythm Strip: Sinus Rhythm Rate: 64 Ectopy: None EKG Initial EKG: Attestation: I personally reviewed and interpreted this EKG as follows: Interpretation: Sinus Rhythm and No Acute Injury Pattern Comments: Normal sinus rhythm rate 64 no acute signs of HI or ischemia. Prior EKG tracings: available for review Prior: Unchanged Discharge Plan Triage Chief Complaint: Syncope ED Provider: Dio Webb Dx/Rx/DC Orders Clinical Impression: COVID, Transient hypotension, Syncope Prescriptions: No Action meloxicam 7.5 mg tablet 7.5 mg PO DAILY PRN (Reason: pain) Qty: 30 2RF Stelara 90 mg/mL syringe 90 mg subcut Q8W 360 Days Qty: 1 6RF Rx Instructions: Inject one syringe SQ every 8 weeks starting 8 weeks after induction infusion. Primary Care Provider: Varinder Phoenix NP Referrals: Varinder Phoenix NP, [facility] [Primary Care Provider] -
[2023-09-09] MEDS: 0.9% Normal Saline (1000mL) 1,000 ML 999 ML IV (11:38)
[2023-09-09 11:50] LABS: Absolute Lymphocyte Count 1.59 X10^3/uL (0.83-4.51); Absolute Neutrophil Count 7.1 X10^3/uL (2.0-7.7); Basophil# 0.08 X10^3/uL; Basophil% 0.8 % (0-1); Hematocrit 48.6 % (37-47); Hemoglobin 15.1 g/dL (12.0-15.0); Lymphocyte # 1.59 X10^3/ul (0.83-4.51); Lymphocyte % 16.3 % (19-41); Mean Corp Hgb Conc 31.1 g/dL (32-36); Mean Corpuscular Hgb 28.8 pg (27.0-32.0); Mean Corpuscular Volume 92.7 fL (81-99); Mean Platelet Vol. 12.6 fl (6.2-12.0); Monocyte# 0.88 X10^3/uL; NRBC Flagged by Analyzer 0 % (0-5); Neutrophil # 7.14 X10^3/uL (2.7-7.7); Neutrophil % 73.5 % (47-70); Platelet Count 153 K/mm3 (150-450); RBC Distribution Width CV 13.4 % (11.6-14.6); RBC Distribution Width SD 45.9 fl (35.1-43.9); Red Blood Count 5.24 M/mm3 (4.2-5.4); White Blood Count 9.7 K/mm3 (4.4-11.0)
[2023-09-09 12:09] LABS: Anion Gap 6 (5-15); BUN 15 mg/dL (7-18); BUN/Creat Ratio 14.4 RATIO (10-20); Calcium,Total 8.6 mg/dL (8.5-10.1); Chloride 107 mmol/L (98-107); Creatinine, Serum 1.04 mg/dL (0.55-1.02); EST Glomerular Filtration Rate 54 mL/min (>60); Est Glom Filt Rate - Afr Amer 65 mL/min (>60); Estimated Creatinine Clearance 36.01 ml/min; Glucose 102 mg/dL (74-106); Potassium 4.3 mmol/L (3.5-5.1); Sodium Level 140 mmol/L (136-145); Troponin-I HS 9 pg/mL (3.0-54.0)
--- NOTE | 2023-09-09 12:15 | RAD_ITS ---
STUDY: X-RAY - RIGHT ELBOW REASON FOR EXAM: Female, 83 years old. Elbow pain and abrasion following a fall. TECHNIQUE: 3 view(s) of the elbow. COMPARISON: None. FINDINGS: Normal visualized humerus, radius and ulna. Normal radiocapitellar and ulnotrochlear articulations. The soft tissue structures are unremarkable. RAD/Elbow min 3 Views IMPRESSION: Normal x-ray examination of the elbow. Electronically Signed: Ja Bailey MD at 12:27 EST ,
--- NOTE | 2023-09-09 13:46 | HP.PCM.HOS_ITS ---
HPI - General General Date of Service: 09/09/23 Chief Complaint: Syncopal episode HPI Narrative JOANN MERRITT, is a 83 F who presented to [facility] ED on 09/09/2023 via EMS after an episode of syncope at home. Patient seen at bedside in the ED, son present. Patient was laying comfortably in bed, conversing normally, no acute distress. Patient was wrapped up in several blankets and did report feeling cold at this time. She denies any recent fevers or chills. Denies any chest pain, shortness of breath, cough or sputum production. Does state that she has recently been around several people who were diagnosed with COVID. Patient lives at home with her son. States that she was upstairs and had just used the bathroom, when she got up to walk back to her bedroom and felt significant lightheadedness and dizziness. Patient does not remember falling down. Son states that he heard her scream and found her lying on the floor unresponsive. He states she came to fairly quickly, but he instructed her to remain on the floor until EMS arrived in case of injuries. Patient reports mild right elbow pain with a small scrape from hitting the dresser in the room, otherwise denies any significant pain or discomfort. Patient states she has had presyncopal symptoms fairly frequently in the past. She discussed them with her PCP back at her appointment in February 2023; on review, appears orthostatic vitals were negative but they were most concerned for orthostatic hypotension and encouraged her to take measures to prevent presyncopal symptoms such as getting up slowly, wearing compression stockings, etc. States she has had presyncopal symptoms a few times in the last few weeks, no episodes of syncope like this. Patient has some degree of debility due to her bilateral knee osteoarthritis, but otherwise does most things around the house for herself. She and her son wanted to stay the night in the hospital and work with therapy tomorrow to ensure that she is strong enough to go home. No other acute concerns at this time. [facility] Medical History Arthritis C. difficile colitis Cataract Chronic anemia History of colon cancer History of colon cancer Osteoarthritis Right anterior knee pain Seasonal allergies Severe malnutrition Ulcerative colitis Ulcerative colitis Home Medications meloxicam 7.5 mg tablet 7.5 mg PO DAILY PRN pain #30 tabs 12/02/22 [Rx Last Taken Unknown] ustekinumab 90 mg/mL subcutaneous syringe (Stelara) 90 mg subcut Q8W 12 months #1 mL 06/08/23 [Rx Last Taken Unknown] Allergy/AdvReac Type Severity Reaction Status Date / Time Sulfa (Sulfonamide Allergy Rash Verified 09/09/23 11:04 Antibiotics) amoxicillin [From Augmentin] AdvReac Vomiting Verified 09/09/23 11:04 clavulanic acid AdvReac Vomiting Verified 09/09/23 11:04 [From Augmentin] fexofenadine [From Rose] AdvReac Other Verified 09/09/23 11:04 hydrocodone AdvReac out of it Verified 09/09/23 11:04 Family History Mother No problems noted. Grandmother Arthritis Grandfather Arthritis Other Heart disease Surgical History H/O breast biopsy History of appendectomy History of cholecystectomy S/P cholecystectomy S/P partial colectomy Surgical history of tubal ligation Social History household members: family housing: house Smoking Status: Never smoker alcohol intake: never substance use type: does not use what type of physical activity do you participate in: walking frequency: daily ROS Constitutional Constitutional: Denies change in weight, chills, fatigue, fever(s) or weakness Eyes Eyes: Denies change in vision Cardiovascular Cardiovascular: Reports lightheadedness and syncope; Denies chest pain, dyspnea on exertion, edema, orthopnea or rapid heart rate Respiratory/Chest Respiratory/Chest: Denies cough, productive cough, shortness of breath at rest or wheezing Gastrointestinal Gastrointestinal: Denies abdominal pain, constipation, diarrhea, hematemesis, nausea or vomiting Genitourinary Genitourinary: Denies dysuria Musculoskeletal Musculoskeletal: Reports joint pain; Denies arthralgias or back pain Neurologic Neurologic: Denies confusion, dizziness, focal weakness, headache(s), numbness or paresthesias Vital Signs Vital Signs Vital Signs: 09/09/23 11:04 09/09/23 11:11 09/09/23 12:40 Temperature 97.4 F L 98.3 F Temperature Source Temporal Oral Pulse Rate 73 59 L Respiratory Rate 14 18 Respiratory Effort Normal Non-Labored Respiratory Pattern Normal Blood Pressure 105/64 105/67 Blood Pressure Mean 77 79 Pulse Ox 99 100 Oxygen Delivery Method Room Air Room Air 09/09/23 13:18 09/09/23 13:19 Temperature 97.3 F L Temperature Source Temporal Pulse Rate 72 72 Respiratory Rate 13 13 Respiratory Effort Respiratory Pattern Blood Pressure 138/52 H 138/52 H Blood Pressure Mean 80 80 Pulse Ox 96 96 Oxygen Delivery Method Room Air Room Air Weight Weight: 54.8 kg Body Mass Index (BMI) 20.7 Physical Exam Const alert, oriented x3 and no apparent distress Constitutional Narrative: Elderly female, somewhat thin and frail appearing, laying comfortably in bed, conversing normally, no acute distress. General Appearance: cooperative and comfortable HEENT normocephalic, head/scalp atraumatic, hearing grossly normal bilaterally, nasal mucous membranes and turbinates normal and moist oral mucous membranes Eyes PERRL, EOMs intact bilaterally and conjunctivae normal Neck full ROM, no lymphadenopathy and supple Lymph Lymphatic: no lymphadenopathy noted Chest inspection of chest normal Resp normal respiratory effort, normal air movement, no use of accessory muscles and clear to auscultation bilaterally Resp Narrative: Satting in mid to high 90s on room air, no increased work of breathing noted. Cardio regular rate, regular rhythm, no murmurs and peripheral pulses 2+ throughout GI normal to inspection, nondistended, normoactive bowel sounds, soft to palpation, non-tender and non-distended Back/Spine normal ROM Extremity normal to inspection, full ROM and no pedal edema Skin no rashes or lesions noted Neuro moves all extremities and no focal motor deficits Speech: speech normal Psych mental status grossly normal Results Lab / Micro Data 09/09/23 11:30 09/09/23 11:30 Labs: Laboratory Results - last 24 hr 09/09/23 11:30: WBC 9.7, RBC 5.24, Hgb 15.1 H, Hct 48.6 H, MCV 92.7, MCH 28.8, MCHC 31.1 L, RDW Std Deviation 45.9 H, RDW Coeff of Rhonda 13.4, Plt Count 153, MPV 12.6 H, Immature Gran % (Auto) 0.400, Neut % (Auto) 73.5 H, Lymph % (Auto) 16.3 L, [place] % (Auto) 9.0, Eos % (Auto) 0.0, Baso % (Auto) 0.8, Absolute Neuts (auto) 7.1, Absolute Lymphs (auto) 1.59, Nucleated RBC % 0, Sodium 140, Potassium 4.3, Chloride 107, Carbon Dioxide 27.0, Anion Gap 6, BUN 15, Creatinine 1.04 H, Estim Creat Clear Calc 36.01, Est GFR (MDRD) Af Amer 65, Est GFR (MDRD) Non-Af 54 L, BUN/Creatinine Ratio 14.4, Glucose 102, Calcium 8.6, Troponin I High Sens 9 Micro: Microbiology 09/09/23 11:47 Nasal Secretion SARS-CoV-2 & FLU Antigen (Rapid) - Final SARS-CoV-2 (COVID 19) Rhythm Strip Rhythm Strip: Sinus Rhythm Rate: 64 Ectopy: None Imagaing Radiology Impression Chest X-Ray 09/09/23 11:14 IMPRESSION: Hyperinflation. The lungs are clear. Electronically Signed: Ja Bailey MD at 12:01 EST , Elbow X-Ray 09/09/23 12:15 IMPRESSION: Normal x-ray examination of the elbow. Electronically Signed: Ja Bailey MD at 12:27 EST , Assessment & Plan Assessment/Plan (1) Syncope: (2) COVID: (3) Debility: PLAN: Plan Patient is an 83-year-old female who presented [facility] ED on 09/09/2023 via EMS after an episode of syncope at home. 1. Syncopal episode Had syncopal event after getting up from using the bathroom and walking back to her bedroom. Unclear etiology at this point. On chart review, patient reported fairly frequent presyncopal symptoms at her PCP appointment in 02/2023. Seemed to be present with position changes. Orthostatic vitals were negative in the office. Patient does note somewhat frequent presyncopal symptoms, no episodes of syncope with falling like this. No notable cardiac history; last echo in 11/2021 showed normal to hyperdynamic EF, no other significant changes. Not on any antihypertensive medications. Has incidental COVID infection as noted bel ow, no other infectious symptoms present, does not appear infectious. Could potentially be some degree of autonomic dysfunction. ? Admit under observation status to PCU. Will repeat echo at this time. Orthostatic vitals pending. Patient notably did receive 1 L of IV fluids in the ED, blood pressure has remained stable. PT/OT consulted as below. 2. COVID-19 infection COVID-positive in the ED on 09/09. Patient reports several known COVID contacts recently. Patient is asymptomatic. Satting in mid to high 90s on room air, no increased work of breathing noted. Has received vaccinations and boosters, most recent booster about 1 year ago. ? Will initiate isolation precautions. Given the patient is asymptomatic and on room air, no need for steroids or other COVID-specific treatments. Symptomatic treatment as needed. 3. Debility Patient lives at home with her son. Has bilateral knee osteoarthritis leading to some degree of difficulty, but otherwise does most things around the house for self. However, she and her son wanted her to have therapy evaluations done here to ensure she would be safe going home. ? PT/OT/case management consulted. Chronic medical conditions: ? Ulcerative colitis: Patient reports fairly firm bowel movements recently, no blood in bowel movements. Has been well-controlled since starting Stelara injections. Continue Stelara after discharge. ? Knee osteoarthritis: Continue Mobic daily as needed. DVT prophylaxis: Lovenox CODE STATUS: DNR CCA, DNI Expected disposition: Home with home health care, 1 to 2 days Total clinical time spent by myself addressing the patient's medical issues, reviewing all the data, and collaborating with patient's care team: 55 minutes. Charges/Coding Visit Charges Inpatient E&M: 67406 Init Hosp L2
--- NOTE | 2023-09-09 16:35 | ECHOD_ITS ---
Reason For Study: Syncope Procedure This was a limited 2D transthoracic echocardiogram. The exam was abbreviated due to the COVID 19 protocol. Left Ventricle Normal LV size. Left ventricular systolic function is normal. The estimated ejection fraction is 75 %. No regional wall motion abnormalities noted. Right Ventricle Normal RV size. Normal systolic function. Great Vessels Normal aortic root. The pulmonary artery is normal size. Normal inferior vena cava. Pericardium/Pleural No pericardial effusion. MMode/2D Measurements & Calculations LVIDd: 3.8 cm IVSd: 1.0 cm LVAd ap4: 13.6 cm2 LVIDs: 2.4 cm LVPWd: 1.1 cm LVLd ap4: 6.4 cm FS: 37.7 % EDV(MOD-sp4): 24.0 ml EDV(sp4-el): 24.7 ml LVAs ap4: 5.8 cm2 LVLs ap4: 5.1 cm ESV(MOD-sp4): 5.9 ml ESV(sp4-el): 5.7 ml EF(MOD-sp4): 75.4 % EF(sp4-el): 77.1 % SV(MOD-sp4): 18.1 ml SV(sp4-el): 19.1 ml ECHO/Echo Complete Interpretation Summary Normal LV size. Left ventricular systolic function is normal. The estimated ejection fraction is 75 %. Ordering Physician: Uzair Davila Referring Physician: Varinder Phoenix Performed By: Yani Farah, CRISTI, RVT
[2023-09-10] VITALS (9 sets, daily range): BP systolic 115–140; BP diastolic 61–69; PULSE 63–79; RESP 14–16; TEMP 36.8–37; O2SAT 94–97
[2023-09-10 06:30] LABS: Hematocrit 43.8 % (37-47); Hemoglobin 13.6 g/dL (12.0-15.0); Mean Corp Hgb Conc 31.1 g/dL (32-36); Mean Corpuscular Hgb 29.1 pg (27.0-32.0); Mean Corpuscular Volume 93.6 fL (81-99); Mean Platelet Vol. 12.4 fl (6.2-12.0); Platelet Count 128 K/mm3 (150-450); RBC Distribution Width CV 13.6 % (11.6-14.6); RBC Distribution Width SD 46.5 fl (35.1-43.9); Red Blood Count 4.68 M/mm3 (4.2-5.4); White Blood Count 7.2 K/mm3 (4.4-11.0)
[2023-09-10 08:34] LABS: Anion Gap 5 (5-15); BUN 12 mg/dL (7-18); Calcium,Total 7.8 mg/dL (8.5-10.1); Chloride 110 mmol/L (98-107); Creatinine, Serum 0.75 mg/dL (0.55-1.02); EST Glomerular Filtration Rate 78 mL/min (>60); Est Glom Filt Rate - Afr Amer 95 mL/min (>60); Estimated Creatinine Clearance 38.54 ml/min; Glucose 89 mg/dL (74-106); Potassium 3.6 mmol/L (3.5-5.1); Sodium Level 138 mmol/L (136-145)
[2023-09-10] MEDS: Enoxaparin 40 MG/0.4 ML Syringe SC (11:28)
--- NOTE | 2023-09-10 11:50 | CASEMGMT ---
Addendum entered by Anisha Ferreira 09/10/23 14:22: 11:50 AM: Addendum: Pt did tell this RN JANINE she feels she will be safe to discharge home, stating she will not be home alone and will help, but then she told AMARJIT MEHTA that she is feeling crappy today and states does not feel well enough to discharge home today. Original Note: RN JANINE assessment: AMARJIT MEHTA spoke with patient for initial transition planning/care coordination assessment. AMRAJIT MEHTA introduced self and role at [facility]. Patient willing to participate in assessment and is able to answer all questions appropriately. Care providers, pharmacy, and demographics verified. Patient wishes to discharge home and would like [facility]. She declines wanting list of other [facility] agencies at this time, stating she has had [facility] in the past and really liked them and would like them again. Patient made aware a referral can be made to [facility] today, but it cannot be officially set up on the weekend. She was made aware CM or composing room supervisor will f/u with her on Tuesday re: referral. She voices understanding. Patient states she has no further needs or concerns at this time. CM to follow for discharge planning needs that may arise. PCP: Varinder Phoenix, NEONAT[employer] SURGEON is listed but pt states he is no longer at the same practice. Pt states she will be seeing someone else in the office at [facility], though, she is just not sure who. Specialists: KEESHA Draper Pharmacy: [facility] Insurance: [facility], [facility] Prescription Benefit: none HPOA: yes, granddaughter Ariana Jessica ARYAN LNOK: granddaughter/HCPOA, Ariana. SonPhil Living Arrangements: Patient lives with son and DIL in a 2 story home with bed and bath on first floor. 2-4 steps and grab bars to enter the home. Patient states she is independent at home. Transportation: son, granddaughter DME: has a RTS, cane, and walker available @ home. No home O2 and pt states, And I don't need it either. SNF/HHC: Pt has been to [facility] in the past and has had [facility] in the past. As stated above, pt would like [facility]. Order placed for HHC: SN and PT/OT. Call placed to [facility] and left re: referral. Plan: Patient to discharge home with family support and follow-up plans in place. CM or composing room supervisor to f/u with pt on Tuesday re: [facility] referral. Donnie THOMASN RN CM
--- NOTE | 2023-09-10 15:02 | CASEMGMT ---
AMARJIT MEHTA NOTE: AMARJIT MEHTA to room. CRAWFORD form explained re: Observation status for treatment of syncope, COVID, debility.? Explained hospitalization will be paid per?her insurance policy for Outpatient billing?and condition will continue to be evaluated for Inpt necessity. Also let pt know that [facility] sends paper in the billing packet with their phone number if questions arise. Pt verbalizes understanding and does not have further questions. ?Form signed, original given to pt, and copy placed in pt's chart. Donnie DUONG RN CM
--- NOTE | 2023-09-10 15:46 | PCM.PN.HOSP ---
Reason for Visit Reason for Visit: Diagnoses Other malaise (09/09/23) Syncope and collapse (09/09/23) COVID-19 (09/09/23) Subjective Subjective Patient feeling generally achy and just unwell, has no other physical complaints or concerns Objective Data Objective Data Vital Signs: Vital Signs Temp Pulse Resp BP Pulse Ox O2 Del Method 98.3 F 74 16 115/68 95 Room Air 09/10/23 14:40 09/10/23 14:40 09/10/23 14:40 09/10/23 14:40 09/10/23 14:40 09/10/23 14:40 Oxygen Delivery Method Room Air Weight: 56.291 kg Body Mass Index (BMI) 20.6 Intake & Output: Intake and Output for Last 24 Hours 09/08/23 09/09/23 09/10/23 23:59 23:59 23:59 Intake Total 1120 / 1250 280 / 280 Balance 1120 / 1250 280 / 280 Lab / Micro Data 09/10/23 06:04 09/10/23 06:04 Labs: Laboratory Results - last 24 hr 09/10/23 06:04: WBC 7.2, RBC 4.68, Hgb 13.6, Hct 43.8, MCV 93.6, MCH 29.1, MCHC 31.1 L, RDW Std Deviation 46.5 H, RDW Coeff of Rhonda 13.6, Plt Count 128 L, MPV 12.4 H, Sodium 138, Potassium 3.6, Chloride 110 H, Carbon Dioxide 23.0, Anion Gap 5, BUN 12, Creatinine 0.75, Estim Creat Clear Calc 38.54, Est GFR (MDRD) Af Amer 95, Est GFR (MDRD) Non-Af 78, BUN/Creatinine Ratio 16.0, Glucose 89, Calcium 7.8 L Micro: Microbiology 09/09/23 11:47 Nasal Secretion SARS-CoV-2 & FLU Antigen (Rapid) - Final SARS-CoV-2 (COVID 19) Radiography Diagnostic Testing: Radiology Impression Echocardiogram 09/09/23 16:35 Interpretation Summary Normal LV size. Left ventricular systolic function is normal. The estimated ejection fraction is 75 %. Ordering Physician: Uzair Davila Referring Physician: Varinder Phoenix Performed By: Yani Farah, CRISTI, RVT Rhythm Strip Rhythm Strip: Sinus Rhythm Rate: 64 Ectopy: None Physical Exam Narrative General: Alert, oriented, no apparent distress HEENT: Atraumatic, normocephalic Eyes: Anicteric, normal conjunctiva, extraocular movements grossly intact Neck: Supple Respiratory: Clear to auscultation bilaterally, normal respiratory effort Cardiovascular: Regular rate GI: Soft, nontender, nondistended Extremities: No edema Musculoskeletal: Moving all extremities Neuro: No overt focal neurological deficits Skin: No rashes appreciated Psych: Cooperative Assessment & Plan Assessment/Plan (1) Syncope: (2) COVID: (3) Debility: PLAN: Plan Patient is an 83-year-old female who presented [facility] ED on 09/09/2023 via EMS after an episode of syncope at home. 1. Syncopal episode Had syncopal event after getting up from using the bathroom and walking back to her bedroom. Unclear etiology at this point. On chart review, patient reported fairly frequent presyncopal symptoms at her PCP appointment in 02/2023. Seemed to be present with position changes. Orthostatic vitals were negative in the office. Patient does note somewhat frequent presyncopal symptoms, no episodes of syncope with falling like this. No notable cardiac history; last echo in 11/2021 showed normal to hyperdynamic EF, no other significant changes. Not on any antihypertensive medications. Has incidental COVID infection as noted below, no other infectious symptoms present, does not appear infectious. Could potentially be some degree of autonomic dysfunction. ? Admit under observation status to PCU. Will repeat echo at this time. Orthostatic vitals pending. Patient notably did receive 1 L of IV fluids in the ED, blood pressure has remained stable. PT/OT consulted as below. -09/10: Suspect this was dehydration, patient today just feeling achy and unwell, echo unremarkable, continue supportive care, worked with physical therapy and still feels weak, patient wants to go home however. If still weak and unable to go home tomorrow we will need to pursue placement, if improves further with supportive care can consider home 2. COVID-19 infection COVID-positive in the ED on 09/09. Patient reports several known COVID contacts recently. Patient is asymptomatic. Satting in mid to high 90s on room air, no increased work of breathing noted. Has received vaccinations and boosters, most recent booster about 1 year ago. ? Will initiate isolation precautions. Given the patient is asymptomatic and on room air, no need for steroids or other COVID-specific treatments. Symptomatic treatment as needed. -09/10: Continue isolation, patient with no respiratory complaints or hypoxia 3. Debility Patient lives at home with her son. Has bilateral knee osteoarthritis leading to some degree of difficulty, but otherwise does most things around the house for self. However, she and her son wanted her to have therapy evaluations done here to ensure she would be safe going home. ? PT/OT/case management consulted. -09/10: Continue supportive care and working with PT/OT, suspect this is largely due to her viral illness Chronic medical conditions: ? Ulcerative colitis: Patient reports fairly firm bowel movements recently, no blood in bowel movements. Has been well-controlled since starting Stelara injections. Continue Stelara after discharge. ? Knee osteoarthritis: Continue Mobic daily as needed. DVT prophylaxis: Lovenox CODE STATUS: DNR CCA, DNI Expected disposition: Home with home health care, 1 to 2 days Total clinical time spent by myself addressing the patient's medical issues, reviewing all the data, and collaborating with patient's care team: 35 minutes. Charges/Coding Visit Charges Inpatient E&M: 42008 Subs Hosp L2
[2023-09-11 04:00] VITALS: BP 125/69; PULSE 72; RESP 15; TEMP 36.6; O2SAT 96
[2023-09-11 04:30] VITALS: BP 125/69; PULSE 72; RESP 15; TEMP 36.6; O2SAT 96
[2023-09-11 07:18] VITALS: O2SAT 96
[2023-09-11 07:19] LABS: Absolute Lymphocyte Count 1.49 X10^3/uL (0.83-4.51); Absolute Neutrophil Count 2.7 X10^3/uL (2.0-7.7); Basophil# 0.03 X10^3/uL; Basophil% 0.6 % (0-1); Eosinophil# 0.02 X10^3/uL; Eosinophils% 0.4 % (0-5); Hematocrit 45.6 % (37-47); Hemoglobin 14.3 g/dL (12.0-15.0); Lymphocyte # 1.49 X10^3/ul (0.83-4.51); Lymphocyte % 30.5 % (19-41); Mean Corp Hgb Conc 31.4 g/dL (32-36); Mean Corpuscular Volume 92.5 fL (81-99); Mean Platelet Vol. 12.3 fl (6.2-12.0); Monocyte# 0.68 X10^3/uL; Monocyte% 13.9 % (0-10); NRBC Flagged by Analyzer 0 % (0-5); Neutrophil # 2.65 X10^3/uL (2.7-7.7); Neutrophil % 54.4 % (47-70); Platelet Count 138 K/mm3 (150-450); RBC Distribution Width CV 13.3 % (11.6-14.6); RBC Distribution Width SD 45.6 fl (35.1-43.9); Red Blood Count 4.93 M/mm3 (4.2-5.4); White Blood Count 4.9 K/mm3 (4.4-11.0)
[2023-09-11 08:07] LABS: Anion Gap 5 (5-15); BUN 13 mg/dL (7-18); BUN/Creat Ratio 16.4 RATIO (10-20); Calcium,Total 8.2 mg/dL (8.5-10.1); Chloride 110 mmol/L (98-107); Creatinine, Serum 0.79 mg/dL (0.55-1.02); EST Glomerular Filtration Rate 74 mL/min (>60); Est Glom Filt Rate - Afr Amer 89 mL/min (>60); Estimated Creatinine Clearance 38.54 ml/min; Glucose 93 mg/dL (74-106); Magnesium 2.3 mg/dL (1.6-2.6); Potassium 3.6 mmol/L (3.5-5.1); Sodium Level 140 mmol/L (136-145)
[2023-09-11 10:34] VITALS: BP 124/68; PULSE 56; RESP 16; TEMP 36.8; O2SAT 95
[2023-09-11] MEDS: 0.9% Saline Lock 10 ML Syringe IV (10:35)
[2023-09-11] MEDS: Enoxaparin 40 MG/0.4 ML Syringe SC (10:36)
--- NOTE | 2023-09-11 13:24 | PCM.DC ---
Discharge Instructions Diet Discharge Diet: No restrictions Activity Discharge Activity: Use Walker Follow Up Care Test Results: Test results from this visit will be discussed in further detail at your follow-up appointment, if applicable. Discharge Plan Admission Admit Date/Time: 09/09/23 13:56 Primary Reason for Your Visit: Passing out episode Attending Provider: Sandy Paige Primary Care Provider: Varinder Phoenix NP Consulting Providers: Uzair Davila Instructions Patient Instructions: ED Fall Prevention Additional Instructions / Restrictions: It is reasonable to resume your Stelara at least 2 weeks after your positive COVID test and when you are no longer symptomatic. Discharge Orders/Prescriptions Prescriptions: Continued meloxicam 7.5 mg tablet 7.5 mg PO DAILY PRN (Reason: pain) Qty: 30 2RF Held Stelara 90 mg/mL syringe 90 mg subcut Q8W 360 Days Qty: 1 6RF Hold Instructions: Resume on 09/23/23. It is reasonable to resume your Stelara at least 2 weeks after your positive COVID test and when you are no longer symptomatic. Rx Instructions: Inject one syringe SQ every 8 weeks starting 8 weeks after induction infusion. Referrals / Follow Up: Varinder Phoenix NP, [employer] [Primary Care Provider] - Within 1 Week Disposition Disposition (needs filled in before D/C Order can be placed): Home, Self Care
--- NOTE | 2023-09-11 13:30 | DS.PCM_ITS ---
Providers Date of Admission: 09/09/23 Date of Discharge: 09/11/23 Primary Care Physician: IDALMIS Hollis Reason For Visit: SYNCOPE, COVID INFECTION, DEBILITY Diagnosis Discharge Diagnosis (1) Syncope: Status: Acute Code(s): R55 - Syncope and collapse (2) COVID: Status: Acute Code(s): U07.1 - COVID-19 (3) Debility: Status: Acute Code(s): R53.81 - Other malaise Plan #Syncopal episode #COVID-19 infection #Debility #Ulcerative colitis #Knee osteoarthritis Medications at Discharge Home Medications meloxicam 7.5 mg tablet 7.5 mg PO DAILY PRN pain #30 tabs 12/02/22 ustekinumab 90 mg/mL subcutaneous syringe (Stelara) 90 mg subcut Q8W 12 months #1 mL 06/08/23 Hospital Course Summary of Care Provided Minutes Spent on Discharge: 32 Hospital Course: 83-year-old female history of UC and knee osteoarthritis presented to [facility] 09/09/23 with episode of syncope at home. Patient had used the bathroom and got up to walk and felt lightheaded and dizzy and then son found her on the floor. She woke up quickly and only complained of right elbow pain. She has had presyncopal episodes multiple times in the past and discussed them with her PCP back in February 2023. She was on orthostatic precautions even though her orthostats at the time were technically negative. In the ED she was found to have COVID and was just generally weak and debilitated and was admitted for further work-up and management. Patient had no events on telemetry suggestive of cardiac etiology of syncopal episode and echo without any significant valvular pathology and EF 75%. Patient did not require any treatment for COVID and was not hypoxic and was vitally stable and labs fairly unremarkable. She felt generally unwell but wanted to return home and did not think she needed a skilled facility. Discussed supportive measures with patient and that there is nothing presently we can do in the hospital to expedite her recovery, discussed risks and benefits with the patient, patient's son who she lives with, and patient's granddaughter her medical power of commercial litigation attorney and all were in agreement for patient to go home with family and to use walker with supportive care at home. Discharge instructions as follows:It is reasonable to resume your Stelara at least 2 weeks after your positive COVID test and when you are no longer symptomatic. Physical Exam Narrative General: Alert, oriented, no apparent distress HEENT: Atraumatic, normocephalic Eyes: Anicteric, normal conjunctiva, extraocular movements grossly intact Neck: Supple Respiratory: Clear to auscultation bilaterally, normal respiratory effort Cardiovascular: Regular rate GI: Soft, nontender, nondistended Extremities: No edema Musculoskeletal: Moving all extremities Neuro: No overt focal neurological deficits Skin: No rashes appreciated Psych: Cooperative Weight / BMI Weight Weight: 56.291 kg Body Mass Index (BMI) 20.6 ABG / Lab / Microbiology Data 09/11/23 06:58 09/11/23 06:58 Laboratory: Laboratory Results - last 24 hr 09/11/23 06:58: WBC 4.9, RBC 4.93, Hgb 14.3, Hct 45.6, MCV 92.5, MCH 29.0, MCHC 31.4 L, RDW Std Deviation 45.6 H, RDW Coeff of Rhonda 13.3, Plt Count 138 L, MPV 12.3 H, Immature Gran % (Auto) 0.200, Neut % (Auto) 54.4, Lymph % (Auto) 30.5, Rankin % (Auto) 13.9 H, Eos % (Auto) 0.4, Baso % (Auto) 0.6, Absolute Neuts (auto) 2.7, Absolute Lymphs (auto) 1.49, Nucleated RBC % 0, Sodium 140, Potassium 3.6, Chloride 110 H, Carbon Dioxide 25.0, Anion Gap 5, BUN 13, Creatinine 0.79, Estim Creat Clear Calc 38.54, Est GFR (MDRD) Af Amer 89, Est GFR (MDRD) Non-Af 74, BUN/Creatinine Ratio 16.4, Glucose 93, Calcium 8.2 L, Magnesium 2.3 Microbiology: Microbiology 09/09/23 11:47 Nasal Secretion SARS-CoV-2 & FLU Antigen (Rapid) - Final SARS-CoV-2 (COVID 19) Radiography Diagnostic Testing: Radiology Impression Echocardiogram 09/09/23 16:35 Interpretation Summary Normal LV size. Left ventricular systolic function is normal. The estimated ejection fraction is 75 %. Ordering Physician: Uzair Davila Referring Physician: Varinder Phoenix Performed By: Yani Farah, CRISTI, RVT D/C Instructions Discharge Diet: No restrictions Meaningful Use Info Meaningful Use Diagnoses (Choose all that apply): None applicable Discharge Plan Admission Admit Date/Time: 09/09/23 13:56 Primary Reason for Your Visit: Passing out episode Attending Provider: Sandy Paige Primary Care Provider: Varinder Phoenix [employer]TER Consulting Providers: Uzair Davila Instructions Patient Instructions: ED Fall Prevention Additional Instructions / Restrictions: It is reasonable to resume your Stelara at least 2 weeks after your positive COVID test and when you are no longer symptomatic. Discharge Orders/Prescriptions Prescriptions: Continued meloxicam 7.5 mg tablet 7.5 mg PO DAILY PRN (Reason: pain) Qty: 30 2RF Held Stelara 90 mg/mL syringe 90 mg subcut Q8W 360 Days Qty: 1 6RF Hold Instructions: Resume on 09/23/23. It is reasonable to resume your Stelara at least 2 weeks after your positive COVID test and when you are no longer symptomatic. Rx Instructions: Inject one syringe SQ every 8 weeks starting 8 weeks after induction infusion. Referrals / Follow Up: Varinder Phoenix NP, [facility] [Primary Care Provider] - Within 1 Week Disposition Disposition (needs filled in before D/C Order can be placed): Home, Self Care Charges/Coding Visit Charges Inpatient E&M: 23667 Disch Hosp >30min
--- NOTE | 2023-09-15 10:26 | CASEMGMT ---
Discharge Planning [facility] not able to accept patient d/t patients new PCP, Dr. Tomlinson, unable to follow patient prior to her appt towards the end of November. Call placed to patient and suggestion made that she should see if she's able to get in any sooner and offered my number to call me with new date. Patient stated that she will not call for a sooner appt and will make do. RN CM updated. Aida Velazquez, Discharge Planning Asst.
== END 2023-09-11 13:30 | disposition home or self-care (01) ==
LOC: ED 13:57 → PCU 16:04
PROVIDERS: Admitting Provider Hospitalist; Emergency Provider Emergency Medicine; PCP Nurse Practitioner Family; Visit Provider Internal Medicine
DX: R55 Syncope and collapse (principal); I42.1 Obstructive hypertrophic cardiomyopathy; E11.9 Type 2 diabetes mellitus without complications; U07.1 COVID-19; R03.1 Nonspecific low blood-pressure reading; M25.521 Pain in right elbow; R53.81 Other malaise; J45.909 Unspecified asthma, uncomplicated; Z79.899 Other long term (current) drug therapy; K21.9 Gastro-esophageal reflux disease without esophagitis; R94.31 Abnormal electrocardiogram [ECG] [EKG]; E87.1 Hypo-osmolality and hyponatremia
CPT/HCPCS: 36415; 71045; 73080; 80048; 83735; 84484; 85025; 85027; 87428; 93005; 93306; 94668; 96360; 96372; 97116; 97162; 97165; 97530; 97802; 99221; 99252; 99285; A4216; G0378; G0463

== ENCOUNTER → 2024-05-24 | Outpatient (CLI) | payer MEDICARE, OTHER, SELFPAY ==
[2024-05-24 16:45] LABS: Absolute Lymphocyte Count 2.34 X10^3/uL (0.83-4.51); Absolute Neutrophil Count 5.7 X10^3/uL (2.0-7.7); Basophil# 0.13 X10^3/uL; Basophil% 1.4 % (0-1); Eosinophil# 0.13 X10^3/uL; Eosinophils% 1.4 % (0-5); Hematocrit 50.2 % (37-47); Hemoglobin 15.8 g/dL (12.0-15.0); Lymphocyte # 2.34 X10^3/ul (0.83-4.51); Lymphocyte % 25.7 % (19-41); Mean Corp Hgb Conc 31.5 g/dL (32-36); Mean Corpuscular Hgb 29.6 pg (27.0-32.0); Mean Platelet Vol. 12.5 fl (6.2-12.0); Monocyte# 0.79 X10^3/uL; Monocyte% 8.7 % (0-10); NRBC Flagged by Analyzer 0 % (0-5); Neutrophil % 62.5 % (47-70); POSITIVE MORPHOLOGY YES; Platelet Count 195 K/mm3 (150-450); RBC Distribution Width CV 13.2 % (11.6-14.6); RBC Distribution Width SD 45.4 fl (35.1-43.9); Red Blood Count 5.34 M/mm3 (4.2-5.4); White Blood Count 9.1 K/mm3 (4.4-11.0)
[2024-05-24 16:46] LABS: Differential Indicated SCAN CRITERIA MET
[2024-05-24 16:47] LABS: Erythrocyte Sedimentation Rate 10 mm/hr (0-30)
[2024-05-24 17:29] LABS: Differential Comment SCANNED; Platelet Estimate ADEQUATE (ADEQ); Platelet Morphology LARGE; Red Cell Morphology NORM C+C NORMAL (NORM C&C)
[2024-05-24 17:37] LABS: ALB/GLOB Ratio 1.1 RATIO (0.9-2.4); AST(SGOT) 17 U/L (15-37); Alanine Aminotransfer ALT/SGPT 17 U/L (13-56); Albumin, Serum 3.8 g/dL (3.2-5.0); Alkaline Phosphatase 99 U/L (45-117); Anion Gap 4 (5-15); BUN 18 mg/dL (7-18); BUN/Creat Ratio 18.1 RATIO (10-20); CRP < 2.90 mg/L (0.0-3.0); Calcium,Total 9.4 mg/dL (8.5-10.1); Chloride 107 mmol/L (98-107); EST Glomerular Filtration Rate 57 mL/min (>60); Est Glom Filt Rate - Afr Amer 69 mL/min (>60); Globulin 3.6 g/dL (2.2-4.2); Glucose 109 mg/dL (74-106); Potassium 4.2 mmol/L (3.5-5.1); Protein, Total 7.4 g/dL (6.4-8.2); Sodium Level 141 mmol/L (136-145)
== END | disposition home or self-care (01) ==
PROVIDERS: PCP Nurse Practitioner Family; Referring Provider Internal Medicine Gastroenterology; Visit Provider Internal Medicine Gastroenterology
DX: K51.00 Ulcerative (chronic) pancolitis without complications (principal); K51.90 Ulcerative colitis, unspecified, without complications
CPT/HCPCS: 80053; 85025; 85652; 86140

== ENCOUNTER 2024-09-29 10:14 | Emergency (ER) | payer MEDICARE, OTHER, SELFPAY ==
[2024-09-29 10:15] VITALS: BP 147/68; PULSE 55; RESP 16; TEMP 36.8; O2SAT 100; BMI 20.4
--- NOTE | 2024-09-29 10:21 | EKG12_ITS ---
Test Reason : GENERAL Blood Pressure : */* mmHG Vent. Rate : 58 BPM Atrial Rate : 58 BPM P-R Int : 116 ms QRS Dur : 58 ms QT Int : 442 ms P-R-T Axes : 13 56 112 degrees QTcB Int : 433 ms Sinus bradycardia Low voltage QRS Septal infarct , age undetermined ST & T wave abnormality, consider lateral ischemia Abnormal ECG Confirmed by ALLEN MCCONNELL, EVITA ([id number]), editor index GAYATRI OROZCO ([id number]) on 10/01/2024 7:03:07 AM Referred By: Confirmed By: EVITA VILLA MD
--- NOTE | 2024-09-29 10:21 | EX.ED.DYSGE1 ---
HPI History of Present Illness Chief Complaint: Weakness Narrative Narrative: 84-year-old female past medical history of ulcerative colitis, intermittent diarrhea, presents via EMS with generalized weakness that she has had since this morning. She states that she felt well yesterday, and was able to do the dishes. However, she felt generalized weakness this morning, and she states that her son looked at her and said that she was pale and wanted her to be evaluated in the emergency department. She denies any recent fevers or chills, no cough, no shortness of breath or chest pain associated with this. No problems with urination. Over the last few days she has had 2 or 3 episodes of watery diarrhea. No exacerbating or alleviating factors. [facility] Medical History Osteoarthritis Right anterior knee pain History of colon cancer Chronic anemia Ulcerative colitis C. difficile colitis Ulcerative colitis Severe malnutrition Cataract Arthritis Seasonal allergies History of colon cancer Home Medications ?Medication ?Instructions ?Recorded ?Last Taken ?Type meloxicam 7.5 mg tablet 7.5 mg PO DAILY PRN pain #30 tabs 12/02/22 Unknown Rx ustekinumab 90 mg/mL subcutaneous 90 mg subcut Q8W 12 months #1 mL 06/26/24 Unknown Rx syringe (Stelara) Allergy/AdvReac Type Severity Reaction Status Date / Time Sulfa (Sulfonamide Allergy Rash Verified 11/17/23 14:47 Antibiotics) amoxicillin (From Augmentin) AdvReac Vomiting Verified 11/17/23 14:47 clavulanic acid (From AdvReac Vomiting Verified 11/17/23 14:47 Augmentin) fexofenadine (From Rose) AdvReac Other Verified 11/17/23 14:47 hydrocodone AdvReac out of it Verified 11/17/23 14:47 Family History Mother No problems noted. Grandmother Arthritis Grandfather Arthritis Other Heart disease Surgical History History of appendectomy History of cholecystectomy H/O breast biopsy Surgical history of tubal ligation S/P partial colectomy S/P cholecystectomy Social History household members: family housing: house Smoking Status: Never smoker alcohol intake: never substance use type: does not use what type of physical activity do you participate in: walking frequency: daily ROS ROS ED ROS Narrative Constitutional: No fever, no chills. Generalized weakness. HEENT: No sore throat. No neck pain. No loss of vision. No rhinorrhea. Cardiovascular: No chest pain. No palpitations. No pedal edema. Respiratory: No cough, no shortness of breath. Abdominal: No abdominal pain. No nausea. No vomiting. Positive diarrhea. Genitourinary: No dysuria. No hematuria. Musculoskeletal: No myalgias. No arthralgias. Neurologic: No headaches. No dizziness. No lightheadedness. Skin: No rash. No change in color. Psychiatric: No depression. No anxiety. EXAM Physical Exam Narrative Exam Narrative: Afebrile. Vital signs noted. Nontoxic-appearing. Awake, alert, oriented, and cooperative. Cardiovascular examination reveals a mild bradycardia in the 50s. Lungs are clear to auscultation bilaterally, no respiratory distress. Abdomen is soft and nontender without rebound or guarding. Positive bowel sounds. No pedal edema. Neurological examination is nonfocal and nonlateralizing. Const Vital Signs: 09/29/24 10:15 09/29/24 10:15 Temperature 98.3 F Temperature Source Oral Pulse Rate 55 L Respiratory Rate 16 Respiratory Effort Normal Respiratory Pattern Normal Blood Pressure 147/68 H Blood Pressure Mean 94 Pulse Ox 100 Oxygen Delivery Method Room Air MDM MDM MDM Narrative Medical decision making narrative: I reviewed her prior records. She has history of lightheadedness and was recently diagnosed with COVID 20 days ago. She does have history of ulcerative colitis. Differential diagnosis includes but not limited to dehydration from her diarrhea from ulcerative colitis versus other electrolyte abnormality. I have low suspicion for anemia based on her physical examination. She is not having chest pain or shortness of breath associated with this. She may have a generalized malaise and fatigue. Pulse ox 100% on room air so I doubt pneumonia/COVID-pneumonia. CBC, EKG, CMP, UA, and chest x-ray will be obtained as a generalized workup. EKG obtained interpreted by myself independently as normal sinus rhythm/sinus bradycardia at 58 bpm without ectopy or acute ST changes. No STEMI. I reviewed her laboratory work and she has normal white count of 8.9, hemoglobin slightly hemoconcentrated at 15.9 with hematocrit 49.5, platelet count 258. Sodium normal at 140 with potassium normal 3.9. Glucose 96. BUN of 9 and creatinine normal 1.0, no dehydration. Urinalysis is negative for infection with 0-5 WBCs. I do not feel antibiotics are indicated. Chest x-ray interpreted by myself independently shows no evidence of pneumonia or pneumothorax. I reviewed the radiology report which confirms my independent interpretation. Repeat examination shows her lying comfortably in bed. She has a sensation of feeling cold. I had a lengthy discussion with the patient and her son with whom she lives. I discussed with them the possibility of assigning her to observation for PT OT eval and retirement facility placement, but patient declines. Her son even called his brother, and together they decided that it would be best for her to be discharged and follow-up with her primary care provider. They did not want to pursue retirement facility placement at this time. I feel she can be discharged safely home with follow-up. Return instructions were reviewed. Disposition is discharged home in stable condition. History & Record Review Discussion w/independent historian: Patient and Family Additional record(s) reviewed:: Prior ED visit Lab Data Attestation: I reviewed the patient's lab results. Labs: Laboratory Results - last 24 hr 09/29/24 10:34 WBC 8.9 RBC 5.43 H Hgb 15.9 H Hct 49.5 H MCV 91.2 MCH 29.3 MCHC 32.1 RDW Std Deviation 45.1 H RDW Coeff of Rhonda 13.4 Plt Count 258 MPV 11.2 Immature Gran % (Auto) 0.400 Neut % (Auto) 64.9 Lymph % (Auto) 19.9 Benzie % (Auto) 9.1 Eos % (Auto) 4.4 Baso % (Auto) 1.3 H Absolute Neuts (auto) 5.8 Absolute Lymphs (auto) 1.77 Nucleated RBC % 0 Sodium 140 Potassium 3.9 Chloride 106 Carbon Dioxide 29.0 Anion Gap 5 BUN 9 Creatinine 1.01 Estim Creat Clear Calc 37.11 Est GFR (MDRD) Af Amer 67 Est GFR (MDRD) Non-Af 56 L BUN/Creatinine Ratio 8.9 L Glucose 96 Calcium 9.2 Total Bilirubin 0.50 AST 12 L ALT 15 Alkaline Phosphatase 114 Total Protein 7.8 Albumin 3.5 Globulin 4.3 H Albumin/Globulin Ratio 0.8 L Urine Color Yellow Urine Clarity Clear Urine pH 6.5 Ur Specific [place] 1.015 Urine Protein Negative Urine Glucose (UA) Normal Urine Ketones Negative Urine Occult Blood 25 H Urine Nitrite Negative Urine Bilirubin Negative Urine Urobilinogen Normal Ur Leukocyte Esterase Negative Urine RBC 0-5 SEEN Urine WBC 0-5 SEEN Ur Squamous Epith Cells 0-5 SEEN Urine Bacteria 1+ Urine Mucus 0 SEEN Radiography Diagnostic Testing: Clinical Impression(s) from Imaging Studies Chest X-Ray 09/29/24 10:43 IMPRESSION: No acute cardiopulmonary abnormality. No interval change. Electronically Signed: Anibal Mccoy MD at 11:41 EST , Discharge Plan Triage Chief Complaint: Weakness ED Provider: Gabriel Martin Dx/Rx/DC Orders Clinical Impression: Generalized weakness, Cold feeling Instructions: ED Weakness (Uncertain Cause) Prescriptions: No Action meloxicam 7.5 mg tablet 7.5 mg PO DAILY PRN (Reason: pain) Qty: 30 2RF Stelara 90 mg/mL syringe 90 mg subcut Q8W 360 Days Qty: 1 6RF Rx Instructions: Inject one syringe SQ every 8 weeks starting 8 weeks after induction infusion. Primary Care Provider: Varinder Phoenix Referrals: Varinder Phoenix, [employer] [Primary Care Provider] - 3-5 Days Activity Restrictions/Additional Instructions: Follow-up with your primary care provider. Return with new or worsening symptoms. Print Language: Wolof Disposition Disposition: Home, Self Care
[2024-09-29 10:41] LABS: Mucous, Urine 0 SEEN /hpf (<or=2+)
--- NOTE | 2024-09-29 10:43 | RAD_ITS ---
EXAM: XR CHEST, 1 VIEW CLINICAL INDICATION: Coronary artery disease TECHNIQUE: Frontal view of the chest. COMPARISON: XR Chest dated 09/09/2023 FINDINGS: LUNGS AND PLEURAL SPACES: Minor linear densities within the lower lungs consistent with atelectasis/scarring. Lungs are otherwise clear. No pleural effusion or pneumothorax. HEART: Normal heart size. MEDIASTINUM: No mediastinal or hilar mass. BONES/JOINTS: No acute abnormality. RAD/Chest 1 View (Portable) IMPRESSION: No acute cardiopulmonary abnormality. No interval change. Electronically Signed: Anibal Mccoy MD at 11:41 EST ,
[2024-09-29 10:47] LABS: Absolute Lymphocyte Count 1.77 X10^3/uL (0.83-4.51); Absolute Neutrophil Count 5.8 X10^3/uL (2.0-7.7); Basophil# 0.12 X10^3/uL; Basophil% 1.3 % (0-1); Eosinophil# 0.39 X10^3/uL; Eosinophils% 4.4 % (0-5); Hematocrit 49.5 % (37-47); Hemoglobin 15.9 g/dL (12.0-15.0); Lymphocyte # 1.77 X10^3/ul (0.83-4.51); Lymphocyte % 19.9 % (19-41); Mean Corp Hgb Conc 32.1 g/dL (32-36); Mean Corpuscular Hgb 29.3 pg (27.0-32.0); Mean Corpuscular Volume 91.2 fL (81-99); Mean Platelet Vol. 11.2 fl (6.2-12.0); Monocyte# 0.81 X10^3/uL; Monocyte% 9.1 % (0-10); NRBC Flagged by Analyzer 0 % (0-5); Neutrophil # 5.78 X10^3/uL (2.7-7.7); Neutrophil % 64.9 % (47-70); Platelet Count 258 K/mm3 (150-450); RBC Distribution Width CV 13.4 % (11.6-14.6); RBC Distribution Width SD 45.1 fl (35.1-43.9); Red Blood Count 5.43 M/mm3 (4.2-5.4); White Blood Count 8.9 K/mm3 (4.4-11.0)
[2024-09-29 10:51] LABS: Color, Urine Yellow (Yellow); Glucose, Dipstick Normal (Normal); Ketone-Dipstick Negative (Negative); Leukocyte Esterase-Dipstick Negative /ul (Negative); Nitrite-Dipstick Negative (Negative); Occult Blood-Urine 25 /ul (Negative); Protein-Dipstick Negative (Negative); Specific Gravity, Urine 1.015 (1.002-1.030); Urine Bilirubin Dipstick Negative (Negative); Urine Clarity Clear (Clear); Urine Urobilinogen Normal (Normal); Urine pH 6.5 (5.0 - 8.0)
[2024-09-29 10:57] LABS: Bacteria 1+ /hpf (None Seen); Red Blood Cells-Urine 0-5 SEEN /hpf (0-5); Squamous Epithelial Cells - UA 0-5 SEEN /hpf (5-10)
[2024-09-29 10:58] LABS: White Blood Cells 0-5 SEEN /hpf (0-5)
[2024-09-29 11:00] LABS: ALB/GLOB Ratio 0.8 RATIO (0.9-2.4); AST(SGOT) 12 U/L (15-37); Alanine Aminotransfer ALT/SGPT 15 U/L (13-56); Albumin, Serum 3.5 g/dL (3.2-5.0); Alkaline Phosphatase 114 U/L (45-117); Anion Gap 5 (5-15); BUN 9 mg/dL (7-18); BUN/Creat Ratio 8.9 RATIO (10-20); Calcium,Total 9.2 mg/dL (8.5-10.1); Chloride 106 mmol/L (98-107); Creatinine, Serum 1.01 mg/dL (0.55-1.02); EST Glomerular Filtration Rate 56 mL/min (>60); Est Glom Filt Rate - Afr Amer 67 mL/min (>60); Estimated Creatinine Clearance 37.11 ml/min; Globulin 4.3 g/dL (2.2-4.2); Glucose 96 mg/dL (74-106); Potassium 3.9 mmol/L (3.5-5.1); Protein, Total 7.8 g/dL (6.4-8.2); Sodium Level 140 mmol/L (136-145)
[2024-09-29 12:15] VITALS: BP 144/63; PULSE 63; RESP 18; O2SAT 96
[2024-09-29 12:50] VITALS: BP 142/64; PULSE 78; RESP 16; TEMP 37; O2SAT 99
== END 2024-09-29 12:50 | disposition home or self-care (01) ==
PROVIDERS: Emergency Provider Emergency Medicine; PCP Nurse Practitioner Family; Visit Provider Emergency Medicine
DX: R53.1 Weakness (principal); Z85.038 Personal history of other malignant neoplasm of large intestine; Z90.49 Acquired absence of other specified parts of digestive tract; Z98.51 Tubal ligation status
CPT/HCPCS: 71045; 80053; 81001; 85025; 93005; 99285; A4216

== ENCOUNTER 2025-02-17 10:39 | Observation (INO) | payer MEDICARE, OTHER, SELFPAY ==
[2025-02-17] VITALS (11 sets, daily range): BP systolic 121–165; BP diastolic 57–78; PULSE 57–73; RESP 14–18; TEMP 36.4–36.8; O2SAT 95–99; BMI 19.3; BMI 18.8
--- NOTE | 2025-02-17 10:45 | EKG12_ITS ---
Test Reason : WEAKNESS Blood Pressure : */* mmHG Vent. Rate : 55 BPM Atrial Rate : 55 BPM P-R Int : 126 ms QRS Dur : 72 ms QT Int : 460 ms P-R-T Axes : 66 73 94 degrees QTcB Int : 440 ms Sinus bradycardia Otherwise normal ECG Confirmed by Arthur Armendariz ([id number]), news copy editor GAYATRI OROZCO ([id number]) on 02/18/2025 9:18:07 AM Referred By: Sandy Paige Confirmed By: Arthur Armendariz
--- NOTE | 2025-02-17 10:45 | CT_ITS ---
PROCEDURE: BRAIN/HEAD WITHOUT CONTRAST 02/17/2025 REASON FOR EXAM: ALTERED MENTAL STATUS TECHNIQUE: Contiguous axial scans of 3.75 mm slice thicknesses with sagittal and coronal reconstruction images. One or more dose reduction techniques were utilized (e.g., automated exposure control, adjustment of mA and/or kv according to patient size, use of iterative reconstruction technique). RADIATION DOSE SUMMARY: DLP: 779.24 mGycm COMPARISON: NO RELEVANT PRIOR. FINDINGS: Cerebrum: No intraparenchymal hemorrhage. No abnormal areas of encephalomalacia. No mass effect or midline shift. Keane-white matter differentiation is normal. Ventricles and cisterns: Appropriate size for patient's age. Extra-axial fluid: Unremarkable. Posterior fossa: Unremarkable cerebellum. No abnormalities involving the brainstem. Paranasal sinuses: Normal. Vasculature: Unremarkable. Mastoid air cells: unremarkable. Calvarium: Unremarkable. Soft tissues: Unremarkable. . CT/Brain/Head without Contrast IMPRESSION: NO ACUTE FINDINGS. Reading Location: [facility]
--- NOTE | 2025-02-17 10:46 | RAD_ITS ---
PROCEDURE: CHEST PA AND LATERAL 02/17/2025 REASON FOR EXAM: WEAKNESS TECHNIQUE: Frontal and lateral views of the chest. COMPARISON: 09/29/24 FINDINGS: No focal consolidations. No pleural effusion or pneumothorax. Cardiac silhouette is unremarkable. No acute fractures RAD/Chest PA and Lateral IMPRESSION: No focal consolidations Reading Location: [facility]
--- NOTE | 2025-02-17 10:47 | EX.ED.DYSGE1 ---
HPI History of Present Illness Chief Complaint: Weakness Informant: patient and EMS Narrative Narrative: 84-year-old female brought by EMS as for an altered mental status. Patient states she feels fine. She states earlier she had gotten up from bed, she remembers sitting on the couch and at 1 point feeling heavy all over and a little foggy, her son states that she was not responding to him, and called 911. She does not remember that, but states she feels fine right now. No history of seizures. She is not a diabetic. Lives with her son. Denies any recent illness or falls or injury. She denies any lateralizing neurologic symptoms of any kind. She denies any changes in her vision right now or any pain or symptoms. [facility] Medical History Osteoarthritis Right anterior knee pain History of colon cancer Chronic anemia Ulcerative colitis C. difficile colitis Ulcerative colitis Severe malnutrition Cataract Arthritis Seasonal allergies History of colon cancer Home Medications ?Medication ?Instructions ?Recorded ?Last Taken ?Type ustekinumab 90 mg/mL subcutaneous 90 mg subcut Q8W 12 months #1 mL 06/26/24 02/04/25 Rx syringe (Stelara) acetaminophen 500 mg capsule 1,000 mg PO Q6H PRN fever or pain 02/17/25 02/15/25 History Allergy/AdvReac Type Severity Reaction Status Date / Time Sulfa (Sulfonamide Allergy Rash Verified 02/17/25 10:40 Antibiotics) amoxicillin (From Augmentin) AdvReac Vomiting Verified 02/17/25 10:40 clavulanic acid (From AdvReac Vomiting Verified 02/17/25 10:40 Augmentin) fexofenadine (From Rose) AdvReac Other Verified 02/17/25 10:40 hydrocodone AdvReac out of it Verified 02/17/25 10:40 Family History Mother No problems noted. Grandmother Arthritis Grandfather Arthritis Other Heart disease Surgical History History of appendectomy History of cholecystectomy H/O breast biopsy Surgical history of tubal ligation S/P partial colectomy S/P cholecystectomy Social History household members: family housing: house Smoking Status: Never smoker alcohol intake: never substance use type: does not use what type of physical activity do you participate in: walking frequency: daily ROS ROS ED Constitutional Constitutional ED: Reports as per HPI and weakness; Denies chills or fever(s) Eyes Eyes: Denies change in vision or diplopia ENT ENT ED: Denies rhinorrhea or sore throat Cardiovascular Cardiovascular: Denies chest pain or palpitations Respiratory/Chest Respiratory/Chest: Denies cough or dyspnea Gastrointestinal Gastrointestinal: Denies abdominal pain, diarrhea, nausea or vomiting Genitourinary Genitourinary ED: Denies dysuria or hematuria Musculoskeletal Musculoskeletal: Denies back pain or neck pain Integumentary Denies abscess or rash Neurologic Neurologic: Denies headache(s), paresthesias or weakness Psychiatric Psychiatric: Denies anxiety or suicidal thoughts EXAM Physical Exam Const Vital Signs: 02/17/25 10:40 02/17/25 11:16 02/17/25 12:33 Temperature 97.6 F L Temperature Source Oral Pulse Rate 60 57 L Respiratory Rate 18 16 Respiratory Effort Normal Respiratory Pattern Normal Blood Pressure 165/58 H 163/65 H Blood Pressure Mean 93 97 Pulse Ox 99 95 Oxygen Delivery Method Room Air Room Air 02/17/25 12:33 02/17/25 13:03 02/17/25 13:29 Temperature Temperature Source Pulse Rate 57 L 65 68 Respiratory Rate 16 18 18 Respiratory Effort Respiratory Pattern Blood Pressure 163/65 H 161/72 H 141/57 H Blood Pressure Mean 97 101 85 Pulse Ox 95 97 98 Oxygen Delivery Method Room Air Room Air Room Air Positive well nourished and well developed General Appearance ED: well developed and NAD HEENT Reports moist mucous membranes normocephalic and atraumatic Eyes PERRL and EOMs intact bilaterally Neck full ROM, no lymphadenopathy and supple Resp normal respiratory effort and clear to auscultation bilaterally Cardio regular rate, regular rhythm and no murmurs Rate: Negative for tachycardic GI non-tender and non-distended Auscultation: normoactive bowel sounds Palpation: soft Back/Spine no CVA tenderness General Back: other FROM Extremity normal to inspection General Extremety ED: Negative for edema, pulses abnormal or tenderness General Extremity: Negative for edema or pulses abnormal Neuro oriented x3, CN's II-XII intact bilaterally and no sensory deficits noted Neuro Narrative: Normal speech in response to questions and object identification. NIHSS 0. Sensorium / Orientation: awake and alert Motor Exam: strength 5/5 throughout Psych mental status grossly normal Skin no rashes or lesions noted and no wounds MDM MDM MDM Narrative Medical decision making narrative: Patient with nonspecific symptoms, feels fine now, therefore workup for primary STONEHAND, infectious, metabolic, cardiopulmonary etiologies was entertained. Workup is essentially normal including 2 view chest x-ray on my interpretation and CT of the head on my interpretation. I went back to check on the patient we been watching her vital signs and she has been a little hypertensive but not enough to cause the symptoms. Sons are there, and I discussed with them. They state that when the patient got up this morning she went from her bathroom to the living room and look like she was wobbly and off balance, holding onto things on her way out. He asked if she was okay and needed to go see the hospital and she said no. She sat down and put her head in her hands, and at one point look like she was falling over and the son thought she was passing out. He was yelling at her and she was not responding as well as he expected so he called 911. By the time EMS arrived she was feeling better. She has a hard time describing what was happening. Son states this has happened before and is usually occurs in the morning right after getting out of bed but it was not to the severity. Given this information my concerns that the patient was having episodes of vertigo when she gets out of bed. Triggering with position changes is consistent with BPPV. However given her age, I went to do [id number] and [id number] which EMS did just prior to dropping her off and was normal. She did okay but was very slow and told me that she was weak on the left side and had a hard time lifting her left leg. So I repeated NIH, she drifts and hits the bed with her left lower extremity, she states she feels heavy in the left arm as well but she does not drift or have weakness there, she does not have hemineglect or facial droop. Therefore her repeat NIHSS is 2, she states she started feeling this way after I first examined her but before having her noncontrast CT performed but did not tell anybody. Given this I recommend calling the stroke team and further evaluating and admitting her to the hospital, family understanding of this. Therefore we immediately called for stroke neurology telemedicine consultation and while waiting for this she was emergently taken over to CT for CT angiography of the head and neck. Getting these images did not delay neurology consultation, which came on short time afterwards. While reexamining the patient with the neurologist, she still felt heavy on her left arm and leg but she had no drift of either 1 and no facial droop, aphasia, or hemineglect for an NIHSS of 0. Given this, her deficits currently are improved and nondisabling and the stroke neurologist I are both in agreement that TNK is not indicated. Discussed all this with family throughout, they are in agreement with all this decision making. I reviewed the CTA, I see no LVO on my interpretation, radiology eventually in agreement and she is stable for admission for further observation and care here at this hospital. Lab Data Attestation: I reviewed the patient's lab results. Labs: Laboratory Results - last 24 hr 02/17/25 02/17/25 02/17/25 10:55 11:00 13:06 WBC 9.1 RBC 5.43 H Hgb 15.9 H Hct 48.6 H MCV 89.5 MCH 29.3 MCHC 32.7 RDW Std Deviation 44.0 H RDW Coeff of Rhonda 13.5 Plt Count 165 MPV 11.9 Immature Gran % (Auto) 0.300 Neut % (Auto) 64.2 Lymph % (Auto) 28.2 [place] % (Auto) 5.3 Eos % (Auto) 0.7 Baso % (Auto) 1.3 H Absolute Neuts (auto) 5.8 Absolute Lymphs (auto) 2.56 Nucleated RBC % 0 Reactive Lymphocytes 3+ Sodium 141 Potassium 4.3 Chloride 106 Carbon Dioxide 24.6 Anion Gap 11 BUN 13 Creatinine 0.94 Estim Creat Clear Calc 37.65 L Est GFR (MDRD) Non-Af 60 BUN/Creatinine Ratio 14.3 Glucose 91 Calcium 9.0 Total Bilirubin 0.61 AST 19 ALT 9 Alkaline Phosphatase 92 Troponin T High Sens < 6 Troponin T Hi Sens 2 Hr < 6 Total Protein 6.7 Albumin 4.0 Globulin 2.8 Albumin/Globulin Ratio 1.4 Urine Color Yellow Urine Clarity Clear Urine pH 8.0 Ur Specific [place] 1.010 Urine Protein Negative Urine Glucose (UA) Normal Urine Ketones Negative Urine Occult Blood 10 H Urine Nitrite Negative Urine Bilirubin Negative Urine Urobilinogen Normal Ur Leukocyte Esterase Negative Urine RBC 0 SEEN Urine WBC 0 SEEN Ur Squamous Epith Cells 0-5 SEEN Urine Bacteria 0 SEEN Urine Mucus 0 SEEN Radiography Diagnostic Testing: Clinical Impression(s) from Imaging Studies Brain CT 02/17/25 10:45 IMPRESSION: NO ACUTE FINDINGS. [facility] Chest X-Ray 02/17/25 10:46 IMPRESSION: No focal consolidations Reading Location: [facility] Head/Neck CTA 02/17/25 12:32 IMPRESSION: No large vessel occlusion or high grade stenosis within the intracranial or neck arterial vasculature. Reading Location: [facility] Rhythm Strip Rhythm Strip: Sinus Rhythm Rate: 60 Ectopy: None EKG Initial EKG: Attestation: I personally reviewed and interpreted this EKG as follows: Interpretation: Sinus Rhythm and No Acute Injury Pattern Comments: Nml axis & intervals; nml EKG Prior EKG tracings: available for review Prior: Unchanged Management Discussion w/another healthcare provider: Hospitalist and Tax Record Clerk (stroke neuro [facility]) Critical Care Time Critical Care Time: Yes Critical care time (excluding procedures): 30-74 minutes (35 min), Including time spent:, Discussing w/Patient &/or Family/Line And Frame Poler, Discussing w/Consultants, Arranging Admission or Transfer and Performing Direct Patient Care at Bedside Discharge Plan Dx/Rx/DC Orders Clinical Impression: Acute left hemiparesis, Dysequilibrium Disposition Disposition: Acute Care [facility]
[2025-02-17 10:57] LABS: Bacteria 0 SEEN /hpf (None Seen); Mucous, Urine 0 SEEN /hpf (<or=2+); Red Blood Cells-Urine 0 SEEN /hpf (0-5); White Blood Cells 0 SEEN /hpf (0-5)
[2025-02-17 11:01] LABS: Color, Urine Yellow (Yellow); Glucose, Dipstick Normal (Normal); Ketone-Dipstick Negative (Negative); Leukocyte Esterase-Dipstick Negative /ul (Negative); Nitrite-Dipstick Negative (Negative); Occult Blood-Urine 10 /ul (Negative); Protein-Dipstick Negative (Negative); Urine Bilirubin Dipstick Negative (Negative); Urine Clarity Clear (Clear); Urine Urobilinogen Normal (Normal)
[2025-02-17 11:08] LABS: Absolute Lymphocyte Count 2.56 X10^3/uL (0.83-4.51); Absolute Neutrophil Count 5.8 X10^3/uL (2.0-7.7); Basophil# 0.12 X10^3/uL; Basophil% 1.3 % (0-1); Eosinophil# 0.06 X10^3/uL; Eosinophils% 0.7 % (0-5); Hematocrit 48.6 % (37-47); Hemoglobin 15.9 g/dL (12.0-15.0); Lymphocyte # 2.56 X10^3/ul (0.83-4.51); Lymphocyte % 28.2 % (19-41); Mean Corp Hgb Conc 32.7 g/dL (32-36); Mean Corpuscular Hgb 29.3 pg (27.0-32.0); Mean Corpuscular Volume 89.5 fL (81-99); Mean Platelet Vol. 11.9 fl (6.2-12.0); Monocyte# 0.48 X10^3/uL; Monocyte% 5.3 % (0-10); NRBC Flagged by Analyzer 0 % (0-5); Neutrophil # 5.82 X10^3/uL (2.7-7.7); Neutrophil % 64.2 % (47-70); POSITIVE MORPHOLOGY YES; Platelet Count 165 K/mm3 (150-450); RBC Distribution Width CV 13.5 % (11.6-14.6); Red Blood Count 5.43 M/mm3 (4.2-5.4); White Blood Count 9.1 K/mm3 (4.4-11.0)
[2025-02-17 11:09] LABS: Squamous Epithelial Cells - UA 0-5 SEEN /hpf (5-10)
[2025-02-17 11:26] LABS: ALB/GLOB Ratio 1.4 RATIO (0.9-2.4); AST(SGOT) 19 U/L (<=31); Alanine Aminotransfer ALT/SGPT 9 U/L (<=34); Alkaline Phosphatase 92 U/L (35-104); Anion Gap 11 (5-15); BUN 13 mg/dL (4-19); BUN/Creat Ratio 14.3 RATIO (10-20); Carbon Dioxide 24.6 mmol/L (21.0-32.0); Chloride 106 mmol/L (98-108); Creatinine, Serum 0.94 mg/dL (0.70-1.20); EST Glomerular Filtration Rate 60 (>60); Estimated Creatinine Clearance 37.65 ml/min (50-250); Globulin 2.8 g/dL (2.2-4.2); Glucose 91 mg/dL (70-99); Potassium 4.3 mmol/L (3.3-5.1); Protein, Total 6.7 g/dL (5.9-8.4); Sodium Level 141 mmol/L (133-145); Total Bilirubin 0.61 mg/dL (0.00-1.30)
--- NOTE | 2025-02-17 11:26 | ED.RN ---
[facility] calls back in regarding pt. they states she had made some comments about wanting to be . denied any si comments when asked at time of traige. to this nurse. informed pt. primary nurse
[2025-02-17 11:39] LABS: Troponin T High Sensitivity < 6 ng/L (<=14)
[2025-02-17 11:42] LABS: Differential Indicated SCAN CRITERIA MET
[2025-02-17 11:43] LABS: Reactive Lymphocyte 3+
--- NOTE | 2025-02-17 12:32 | CT_ITS ---
PROCEDURE: STROKE CTA HEAD AND NECK W/CON 02/17/2025 REASON FOR EXAM: LEFT HEMIPARESIS TECHNIQUE: CTA imaging of the head and neck from the aortic arch to the skull vertex with out contrast and with intravenous contrast. Multiplanar and multisequence images were obtained. CONTRAST: 100ml of isovue 370 One or more dose reduction techniques were used (e.g., Automated exposure control, adjustment of the mA and/or kV according to patient size, use of iterative reconstruction technique). RADIATION DOSE SUMMARY: DLP: 598 mGycm COMPARISON: none FINDINGS: The aortic arch demonstrates a type I configuration. The ostia of the great vessels are patent. There is conventional branching. The right CCA is patent. There is minimal stenosis of the right carotid bifurcation due to plaque. The cervical right ICA is patent. The right MCA and right KIMBERLY appear patent. There is no large vessel occlusion. The left CCA is patent. There is no significant stenoses at the left carotid bifurcation by NASCET criteria. The cervical left ICA is patent. The left MCA and left KIMBERLY appear patent. There is no large vessel occlusion. The right vertebral artery arises from the right subclavian artery. The left vertebral artery arises from the left subclavian artery. Both vertebral arteries are patent. Both vertebral arteries join to form the patent basilar artery. Both posterior cerebral arteries arise from the tip of the basilar. Both proximal CASING GRADER segments are patent. There is no large vessel occlusion. There is no enhancing intracranial mass. Shotty cervical lymph nodes are identified. The thyroid gland is heterogeneous with 6mm nodule within the right thyroid gland; smaller scattered hypodensities are noted bilaterally. The lung apices demonstrate no pneumothorax. No destructive osseous abnormalities identified. Right lens surgery. CT/STROKE CTA Head AND Neck W/Con IMPRESSION: No large vessel occlusion or high grade stenosis within the intracranial or nec k arterial vasculature. Reading Location: [facility]
[2025-02-17 13:35] LABS: Troponin T High Sens 2 HR < 6 ng/L (<=14)
--- NOTE | 2025-02-17 14:37 | HP.PCM.HOS_ITS ---
HPI - General General Date of Admission: 02/17/25 Date of Service: 02/17/25 Chief Complaint: Wobbly, left lower extremity heaviness HPI Narrative JOANN MERRITT, is an 84y/o F w/ hx of who presented to [facility] ED 02/17/25 d/t weakness and AMS. Pt woke up earlier and got out of bed, she remembers sitting on the couch and at some point felt heavy all over and a little foggy. Son reported she was not responding so he called 911. Patient reports feeling completely fine now. Son reported that when patient got up this morning she went from her bathroom to the living room and looked like she was wobbly and off balance and was holding onto things, he asked if she needed to go to the hospital and she said no but when she sat down she put her head in her hands and looked like she was falling over. Son was yelling at her and she was not responding so he called 911. By the time EMS arrived she felt better. Reportedly this has happened before and usually occurs in the morning right after she gets out of bed but this is the worst that it has happened. Between patient getting to the ED and evaluation she developed left lower extremity weakness and felt her left arm was heavy, her repeat NIH was 2 so there was a stroke on the ED. TNK was not indicated, workup thus far unremarkable with negative CTA and negative CT brain. Vitals in the ED with temp 97.6, heart rate of 60 and blood pressure 165/58, pulse ox 99% on room air. Teleneurology recommended admission for stroke rule out. Hospitalist contacted for admission. Patient evaluated at bedside with sons present, patient irritable and seems to get irritated with questioning. Summarized the history as above and she and family bedside report that that is accurate. Patient notes that she did develop the left lower extremity and arm heaviness since she has been here, when asked if it is improved she said she has been moving so she does not know, possibly seems that the weakness has been improving, still feels some left lower extremity heaviness but not as much overt weakness. Does report headaches, and/or she has a headache right now though just because she has not had her coffee or food and that headaches are not uncommon for her during the summer. ROS otherwise negative at this time [facility] Medical History Osteoarthritis Right anterior knee pain History of colon cancer Chronic anemia Ulcerative colitis C. difficile colitis Ulcerative colitis Severe malnutrition Cataract Arthritis Seasonal allergies History of colon cancer Home Medications ?Medication ?Instructions ?Recorded ?Last Taken ?Type ustekinumab 90 mg/mL subcutaneous 90 mg subcut Q8W 12 months #1 mL 06/26/24 02/04/25 Rx syringe (Stelara) acetaminophen 500 mg capsule 1,000 mg PO Q6H PRN fever or pain 02/17/25 02/15/25 History Allergy/AdvReac Type Severity Reaction Status Date / Time Sulfa (Sulfonamide Allergy Rash Verified 02/17/25 10:40 Antibiotics) amoxicillin (From Augmentin) AdvReac Vomiting Verified 02/17/25 10:40 clavulanic acid (From AdvReac Vomiting Verified 02/17/25 10:40 Augmentin) fexofenadine (From Rose) AdvReac Other Verified 02/17/25 10:40 hydrocodone AdvReac out of it Verified 02/17/25 10:40 Family History Mother No problems noted. Grandmother Arthritis Grandfather Arthritis Other Heart disease Surgical History History of appendectomy History of cholecystectomy H/O breast biopsy Surgical history of tubal ligation S/P partial colectomy S/P cholecystectomy Social History household members: family housing: house Smoking Status: Never smoker alcohol intake: never substance use type: does not use what type of physical activity do you participate in: walking frequency: daily ROS ROS Narrative General: Denies fever/chills HENT: Does get intermittent headaches, has headache right now, denies stuffy nose, denies sore throat EYES: Denies changes in vision Resp: Denies cough, denies shortness of breath Cardiac: Denies chest pain GI: Denies abdominal pain, denies changes in bowel, denies nausea/vomiting : Denies changes in urination Extremity: Denies swelling MSK: Some left lower extremity left upper extremity heaviness Neuro: Denies any numbness/tingling Heme: Denies any bleeding or bruising Skin: Denies rashes Psychiatric: Patient irritated Vital Signs Vital Signs Vital Signs: 02/17/25 10:40 02/17/25 11:16 02/17/25 12:33 Temperature 97.6 F L Temperature Source Oral Pulse Rate 60 57 L Respiratory Rate 18 16 Respiratory Effort Normal Respiratory Pattern Normal Blood Pressure 165/58 H 163/65 H Blood Pressure Mean 93 97 Pulse Ox 99 95 Oxygen Delivery Method Room Air Room Air 02/17/25 12:33 02/17/25 13:03 02/17/25 13:29 Temperature Temperature Source Pulse Rate 57 L 65 68 Respiratory Rate 16 18 18 Respiratory Effort Respiratory Pattern Blood Pressure 163/65 H 161/72 H 141/57 H Blood Pressure Mean 97 101 85 Pulse Ox 95 97 98 Oxygen Delivery Method Room Air Room Air Room Air Weight Weight: 52.6 kg Body Mass Index (BMI) 19.3 Physical Exam Narrative General: Alert, oriented, no apparent distress HEENT: Atraumatic, normocephalic Eyes: Anicteric, normal conjunctiva, extraocular movements intact, pupils equal Neck: Supple Respiratory: Clear to auscultation bilaterally, normal respiratory effort Cardiovascular: Regular rate and rhythm GI: Soft, nontender, nondistended Extremities: No edema Musculoskeletal: Strength 5 - out of 5 in right upper extremity, 5 - out of 5 left upper extremity, 5 - out of 5 right lower extremity, 5 - out of 5 left lower extremity Neuro: No overt focal neurological deficits, cranial nerves II through XII intact, [id number] without significant difficulty bilaterally, denies any sensory complaints Skin: No rashes appreciated Psych: Cooperative Results Lab / Micro Data 02/17/25 11:00 02/17/25 11:00 Labs: Laboratory Results - last 24 hr 02/17/25 10:55: Urine Color Yellow, Urine Clarity Clear, Urine pH 8.0, Ur Specific Maxie 1.010, Urine Protein Negative, Urine Glucose (UA) Normal, Urine Ketones Negative, Urine Occult Blood 10 H, Urine Nitrite Negative, Urine Bilirubin Negative, Urine Urobilinogen Normal, Ur Leukocyte Esterase Negative, Urine RBC 0 SEEN, Urine WBC 0 SEEN, Ur Squamous Epith Cells 0-5 SEEN, Urine Bacteria 0 SEEN, Urine Mucus 0 SEEN 02/17/25 11:00: WBC 9.1, RBC 5.43 H, Hgb 15.9 H, Hct 48.6 H, MCV 89.5, MCH 29.3, MCHC 32.7, RDW Std Deviation 44.0 H, RDW Coeff of Rhonda 13.5, Plt Count 165, MPV 11.9, Immature Gran % (Auto) 0.300, Neut % (Auto) 64.2, Lymph % (Auto) 28.2, [place] % (Auto) 5.3, Eos % (Auto) 0.7, Baso % (Auto) 1.3 H, Absolute Neuts (auto) 5.8, Absolute Lymphs (auto) 2.56, Nucleated RBC % 0, Reactive Lymphocytes 3+, Sodium 141, Potassium 4.3, Chloride 106, Carbon Dioxide 24.6, Anion Gap 11, BUN 13, Creatinine 0.94, Estim Creat Clear Calc 37.65 L, Est GFR (MDRD) Non-Af 60, BUN/Creatinine Ratio 14.3, Glucose 91, Calcium 9.0, Total Bilirubin 0.61, AST 19, ALT 9, Alkaline Phosphatase 92, Troponin T High Sens < 6, Total Protein 6.7, Albumin 4.0, Globulin 2.8, Albumin/Globulin Ratio 1.4 02/17/25 13:06: Troponin T Hi Sens 2 Hr < 6 Rhythm Strip Rhythm Strip: Sinus Rhythm Rate: 60 Ectopy: None Imaging Radiology Impression Brain CT 02/17/25 10:45 IMPRESSION: NO ACUTE FINDINGS. [facility] Chest X-Ray 02/17/25 10:46 IMPRESSION: No focal consolidations Reading Location: [facility] Head/Neck CTA 02/17/25 12:32 IMPRESSION: No large vessel occlusion or high grade stenosis within the intracranial or neck arterial vasculature. Reading Location: [facility] Assessment & Plan Assessment/Plan (1) Neurologic abnormality: (2) Thyroid nodule: PLAN: Plan # Left leg and left upper extremity heaviness -Admit to tele -CT head w/ no acute process -CTA head and neck with no LVO -MRI ordered -NIH q4hr -asa, statin -Echo ordered -PT/OT/Speech eval -Teleneuro consult ordered -Hold BP medications to allow for permissive hypertension for 24 hours unless SBP greater than 220 or DBP greater than 120 or until stroke is ruled out # Thyroid nodule - 6 mm nodule within the right thyroid gland - Will check TSH, free T4, free T3 - May need outpatient thyroid ultrasound # History of UC -On Stelara on an outpatient basis #DVT ppx: SCDs Sandy Paige MD Charges/Coding Visit Charges Inpatient E&M: 07572 Init Hosp L2
--- NOTE | 2025-02-17 14:40 | CASEMGMT ---
Care Management Face to Face with patient for initial transition planning/care coordination assessment in the ED.? This fiction writer introduced self and role at [facility]. Patient alert and oriented. Patient willing to participate in assessment and is able to answer all questions appropriately.? Care providers, pharmacy, and demographics verified. Patient?s sons Phil and Christian were present and assisted with assessment when needed as patient stated she was having some trouble remembering certain things. Admitting Diagnosis: Acute Left Hemiparesis Other diagnosis history: Including but not limited to: Osteoarthritis, History of Colon Cancer, Chronic Anemia, Ulcerative Colitis, C. Difficile Colitis, Severe Malnutrition, Cataract, Arthritis and Seasonal Allergies. PCP: Dr. Varinder Phoenix. Patient stated she does not receive routine/preventative care and only goes to the doctor when sick. Electric Locomotive Firer/Fireman provided verbal education about the benefits or preventative and routine care. Specialists: Gastro: Dr. Draper Preferred Pharmacy: [facility] in [place]. Insurance: Medicare Part A and B. Prescription Benefit: No and patient stated it is not needed as she only has a shot she has to take and denied any other prescription medications. Living Will/HPOA: Yes. Patient?s granddaughter Ariana Jessica [phone]. tray service worker verified that this in in patient?s electronic health records. LNOK: Patient is .? Patient has two sons, Phil and Christian. Living Arrangements: Patient currently lives with her son Phil and his in a two-story home.? Patient?s bedroom and bathroom are on the first floor. There are 2 steps leading in/out of the home (no railing) that patient stated she is able to easily navigate without difficulty. Patient denied any environmental barriers. Transportation: Patient?s son Phil provides most transportation and patient?s son Christian also assists when needed. Patient denied and transportation barriers. DME: Shower chair, HHS, standard cane and a standard walker. HHC: Denied any history of. SNF/Rehab: Patient has previously been at [facility], 2018; no one could remember why. Community Resources: None at this time and none needed. Behavioral Health History: Patient denied any history of mental health. Patient goals: Patient wishes to discharge home, and denies need for home health care at this time. Patient denies any further needs or concerns at this time. Disposition Plan: admission to acute; RN CM/SW to follow for discharge planning needs that may arise. Lizbeth Demarco, ELECTRONIC ENGRAVER, MANUFACTURING JOB [employer]ITLES
--- NOTE | 2025-02-17 14:46 | ECHOD_ITS ---
Reason For Study Reason For Study: Tia/Stroke Procedure This was a 2D Doppler, Color Flow transthoracic echocardiogram. Exam performed portable in patient room. Left Ventricle Normal left ventricle. Left ventricular systolic function is normal. The left ventricular ejection fraction is 70 %. Stage 1 diastolic dysfunction. No regional wall motion abnormalities noted. Right Ventricle Normal RV size. Normal systolic function. Tricuspid Valve Normal tricuspid valve. Mild (1+) tricuspid valve insufficiency. Pulmonary artery systolic pressure is 28 mmHg. Aortic Valve Trisinus/trileaflet aortic valve. Pulmonic Valve Normal pulmonic valve. Great Vessels Normal aortic root. The pulmonary artery is normal size. Pericardium/Pleural No pericardial effusion. MMode/2D Measurements & Calculations LVIDd: 3.3 cm IVSd: 1.1 cm Ao root diam: 3.2 cm LVIDs: 1.5 cm LVPWd: 0.95 cm RVDd: 2.5 cm FS: 55.5 % LAV(MOD-bp): 17.7 ml SV(MOD-sp4): 17.3 ml LVAd ap4: 13.8 cm2 LAV(MOD-bp) Indexed: 11.3 ml/m2 LVLd ap4: 6.4 cm SI(MOD-sp4): 11.0 ml/m2 LAV(MOD-sp2): 12.2 ml EDV(MOD-sp4): 25.1 ml LAV(MOD-sp4): 17.2 ml EDV(sp4-el): 25.5 ml LVAs ap4: 6.6 cm2 LVLs ap4: 5.0 cm ESV(MOD-sp4): 7.7 ml ESV(sp4-el): 7.3 ml EF(MOD-sp4): 69.1 % EF(sp4-el): 71.3 % SV(sp4-el): 18.2 ml LA dimension(2D): 2.5 cm LA A4 area: 9.9 cm2 RA A4 area: 8.4 cm2 Time Measurements MV dec time: 0.42 sec Doppler Measurements & Calculations MV E max reji: 55.0 cm/sec Lat Peak E' Reji: 6.8 cm/sec Med Peak E' Reji: 6.5 cm/sec MV A max reji: 86.4 cm/sec E/E' lat: 8.1 E/E' med: 8.5 MV E/A: 0.64 Ao V2 max: 110.4 cm/sec LV V1 max: 81.5 cm/sec MV dec slope: 131.2 cm/sec2 Ao max P.9 mmHg LV V1 max P.7 mmHg Ao V2 mean: 81.8 cm/sec Ao mean P.8 mmHg Ao V2 VTI: 24.1 cm TR max reji: 246.8 cm/sec TR max P.4 mmHg ECHO/Echo Complete Interpretation Summary Normal left ventricle. Left ventricular systolic function is normal. The left ventricular ejection fraction is 70 %. Stage 1 diastolic dysfunction. Ordering Physician: Sandy Paige Referring Physician: Varinder Phoenix Performed By: Yani Farah, CRISTI, RVT
[2025-02-17] MEDS: Aspirin 81 MG TAB.CHEW PO (15:55)
[2025-02-17 16:20] LABS: Troponin T High Sens 4 HR < 6 ng/L (<=14)
[2025-02-17] MEDS: Atorvastatin Calcium 40 MG Tablet PO (21:30)
[2025-02-18] VITALS (11 sets, daily range): BP systolic 116–148; BP diastolic 63–74; PULSE 59–73; RESP 12–18; TEMP 36.1–36.8; O2SAT 96–98; BMI 18.8
[2025-02-18] MEDS: Ondansetron 4 MG/2 ML Vial IV (04:58)
[2025-02-18] MEDS: 0.9% Saline Lock 10 ML Syringe IV (04:59)
[2025-02-18 05:53] LABS: Absolute Neutrophil Count 4.6 X10^3/uL (2.0-7.7); Basophil# 0.14 X10^3/uL; Basophil% 1.6 % (0-1); Eosinophil# 0.15 X10^3/uL; Eosinophils% 1.7 % (0-5); Hematocrit 45.4 % (37-47); Hemoglobin 14.9 g/dL (12.0-15.0); Lymphocyte % 35.7 % (19-41); Mean Corp Hgb Conc 32.8 g/dL (32-36); Mean Corpuscular Hgb 29.4 pg (27.0-32.0); Mean Corpuscular Volume 89.5 fL (81-99); Mean Platelet Vol. 12.2 fl (6.2-12.0); Monocyte# 0.67 X10^3/uL; Monocyte% 7.7 % (0-10); NRBC Flagged by Analyzer 0 % (0-5); Neutrophil # 4.62 X10^3/uL (2.7-7.7); Neutrophil % 53.2 % (47-70); Platelet Count 173 K/mm3 (150-450); RBC Distribution Width CV 13.5 % (11.6-14.6); RBC Distribution Width SD 44.3 fl (35.1-43.9); Red Blood Count 5.07 M/mm3 (4.2-5.4); White Blood Count 8.7 K/mm3 (4.4-11.0)
[2025-02-18 06:24] LABS: Anion Gap 11 (5-15); BUN 12 mg/dL (4-19); BUN/Creat Ratio 14.1 RATIO (10-20); Calcium,Total 8.9 mg/dL (7.6-11.0); Carbon Dioxide 23.3 mmol/L (21.0-32.0); Chloride 106 mmol/L (98-108); Creatinine, Serum 0.87 mg/dL (0.70-1.20); EST Glomerular Filtration Rate 66 (>60); Estimated Creatinine Clearance 38.64 ml/min (50-250); Free T3 3.3 pg/mL (2.18-3.98); Glucose 93 mg/dL (70-99); Sodium Level 140 mmol/L (133-145)
[2025-02-18 06:49] LABS: Cholesterol 182 mg/dL (<=200); High Density Lipoprotein 62 mg/dL; Low Density Lipoprotein Calc. 108 mg/dL; Triglycerides 61 mg/dL; Very Low Density Lipoprotein 12 mg/dL (5-40); cholesterol:hdl ratio screen 2.94
--- NOTE | 2025-02-18 08:00 | MRI_ITS ---
PROCEDURE: BRAIN WITHOUT CONTRAST 02/18/2025 REASON FOR EXAM: TIA/CVA R/O, LEFT LOWER EXTREMITY HEAVINESS/WEAKNE TECHNIQUE: Noncontrast brain MRI. Multiplanar and multisequence images were obtained. FINDINGS: BRAIN/PARENCHYMA: No evidence of acute infarction or acute intracranial hemorrhage. There are subcortical and periventricular white matter FLAIR hyperintensities, likely related to chronic microvascular ischemic disease. EXTRA-AXIAL SPACES: No abnormal extra-axial fluid collections. Patent basal cisterns and foramen magnum. MIDLINE SHIFT: None. VENTRICLES: No hydrocephalus. SCALP SOFT TISSUES & CALVARIUM: No significant abnormality. VISUALIZED SINUSES & MASTOIDS: No air-fluid levels in the paranasal sinuses. The mastoid air cells are clear. ARTERIAL FLOW VOIDS: Preserved major arterial flow voids indicating gross patency. MRI/Brain without Contrast IMPRESSION: No acute intracranial abnormality; no acute infarct, intracranial hemorrhage or extra-axial collection. Chronic microvascular ischemia and involutional changes. Reading Location: [facility]
[2025-02-18] MEDS: Aspirin 81 MG TAB.CHEW PO (08:42)
--- NOTE | 2025-02-18 11:10 | PN.HOSP_ITS ---
Reason for Visit Reason for Visit: Diagnoses Nontoxic single thyroid nodule (02/17/25) Other symptoms and signs involving the nervous system (02/17/25) Objective Data Objective Data Vital Signs: Vital Signs Temp Pulse Resp BP Pulse Ox O2 Del Method 97.8 F 60 14 131/74 H 96 Room Air 02/18/25 07:32 02/18/25 07:32 02/18/25 07:32 02/18/25 07:32 02/18/25 08:20 02/18/25 08:20 Oxygen Delivery Method Room Air Weight: 110 lb 2.005 oz Body Mass Index (BMI) 18.8 Intake & Output: Intake and Output for Last 24 Hours 02/16/25 02/17/25 02/18/25 23:59 23:59 23:59 Intake Total 480 / 480 Balance 480 / 480 Lab / Micro Data 02/18/25 05:27 02/18/25 05:27 Labs: Laboratory Results - last 24 hr 02/17/25 11:00: WBC 9.1, RBC 5.43 H, Hgb 15.9 H, Hct 48.6 H, MCV 89.5, MCH 29.3, MCHC 32.7, RDW Std Deviation 44.0 H, RDW Coeff of Rhonda 13.5, Plt Count 165, MPV 11.9, Immature Gran % (Auto) 0.300, Neut % (Auto) 64.2, Lymph % (Auto) 28.2, [place] % (Auto) 5.3, Eos % (Auto) 0.7, Baso % (Auto) 1.3 H, Absolute Neuts (auto) 5.8, Absolute Lymphs (auto) 2.56, Nucleated RBC % 0, Reactive Lymphocytes 3+, Sodium 141, Potassium 4.3, Chloride 106, Carbon Dioxide 24.6, Anion Gap 11, BUN 13, Creatinine 0.94, Estim Creat Clear Calc 37.65 L, Est GFR (MDRD) Non-Af 60, BUN/Creatinine Ratio 14.3, Glucose 91, Calcium 9.0, Total Bilirubin 0.61, AST 19, ALT 9, Alkaline Phosphatase 92, Troponin T High Sens < 6, Total Protein 6.7, Albumin 4.0, Globulin 2.8, Albumin/Globulin Ratio 1.4 02/17/25 13:06: Troponin T Hi Sens 2 Hr < 6 02/17/25 15:40: Troponin T Hi Sens 4Hr < 6 02/18/25 05:27: WBC 8.7, RBC 5.07, Hgb 14.9, Hct 45.4, MCV 89.5, MCH 29.4, MCHC 32.8, RDW Std Deviation 44.3 H, RDW Coeff of Rhonda 13.5, Plt Count 173, MPV 12.2 H , Immature Gran % (Auto) 0.100, Neut % (Auto) 53.2, Lymph % (Auto) 35.7, [place] % (Auto) 7.7, Eos % (Auto) 1.7, Baso % (Auto) 1.6 H, Absolute Neuts (auto) 4.6, Absolute Lymphs (auto) 3.10, Nucleated RBC % 0, Sodium 140, Potassium 4.0, Chloride 106, Carbon Dioxide 23.3, Anion Gap 11, BUN 12, Creatinine 0.87, Estim Creat Clear Calc 38.64 L, Est GFR (MDRD) Non-Af 66, BUN/Creatinine Ratio 14.1, Glucose 93, Calcium 8.9, Triglycerides 61, Cholesterol 182, LDL Cholesterol, Calc 108, VLDL Cholesterol 12, HDL Cholesterol 62, Cholesterol/HDL Ratio 2.94, TSH 1.640, Free T4 1.10, Free T3 pg/dL 3.3 Radiography Diagnostic Testing: Radiology Impression Brain CT 02/17/25 10:45 IMPRESSION: NO ACUTE FINDINGS. [facility] Chest X-Ray 02/17/25 10:46 IMPRESSION: No focal consolidations Reading Location: [facility] Head/Neck CTA 02/17/25 12:32 IMPRESSION: No large vessel occlusion or high grade stenosis within the intracranial or neck arterial vasculature. Reading Location: [facility] Rhythm Strip Rhythm Strip: Sinus Rhythm Rate: 60 Ectopy: None Physical Exam Narrative Seen and examined. Patient complained that her son noticed that she was looking strange, person herself felt heavy generalized and a little foggy. Her son reported that she was not responding therefore he called 911. Denies acute onset of confusion, disorientation, change in behavior or language dysarthria. She felt left-sided weakness. Physical exam General: Alert, Oriented x3, Cooperative HEENT: Atraumatic, PERRLA, EOMI, Normocephalic. Oral: No Gingival or Mucosal Lesions/ Ulcerations Neck: Supple, No JVD, Negative Carotid Bruits Chest wall/Lungs: Air entry diminished in bilateral lung bases. No crepitation/rhonchi Cardiovascular: Regular rate and rhythm, Normal S1,S2, soft systolic murmur Abdomen: Bowel Sounds Present, Soft, Non Tender, Non-Distended : No dysuria. No renal angle tenderness. No suprapubic tenderness. Extremities: No edema, Capillary Refill Less than 3 Seconds Skin: No rashes, No breakdown Musculoskeletal: LLE mildly weak at knee and hip joints, 4+/5. Rest all 3 extremities 5/5 at major joints. No Tenderness to Palpation of Joints or Extremities Neurological: Cranial nerves II-XII grossly intact, DTR 2+/4. NIH stroke scale 0. GCS 15 for Psych/Mental Status: Normal Affect, Appropriate. Assessment & Plan Assessment/Plan (1) Neurologic abnormality: (2) Thyroid nodule: PLAN: Plan 84-year-old female was admitted with mild confusion/decreased responsiveness along with left-sided weakness/numbness # Left leg and left upper extremity heaviness/numbness: Patient is being admitted in PCU. On exam, mild left lower extremity weakness. NIH stroke scale 0. PT, OT, speech therapy/swallow evaluation and management, nursing NIH stroke scale, BP and glucose monitoring and control as per stroke protocol. Lipid profile, TSH: Normal limit. A1c pending. MRI brain and 2D echo with bubble contrast study ordered -CT head w/ no acute process -CTA head and neck with no LVO -Teleneuro consult ordered -Hold BP medications to allow for permissive hypertension for 24 hours unless SBP greater than 220 or DBP greater than 120 or until stroke is ruled out # Thyroid nodule - 6 mm nodule within the right thyroid gland - TSH free T4 and free T3 all normal. - May need outpatient thyroid ultrasound # History of UC -On Stelara on an outpatient basis #DVT ppx: SCDs NIHSS NIHSS Nursing Documentation NIHSS Nursing Documentation: NIHSS: Ischemic Stroke/TIA Start: 02/17/25 15:10 Text: For PCU Patients: NIH and Neuro Check every 4 Status: Active hours, PRN and with change in RN caregiver. Freq: [id number] Protocol: Activity Type Activity Date Activity User E-sign Co-sign Detail Recorded Client Recorded Date Recorded By Document 02/18/25 07:23 DS [id number] 02/18/25 07:25 DS 02/18/25 07:23 NIH Stroke Scale [NIHSS] A score of 0 is normal or asymptomatic . Total possible score is 42. Inpatient: RN or Physician to activate a stroke alert for onset of new stroke symptoms or with NIHSS increase >/= 3 points. Following change in neurological status, NIHSS will be performed per physician order or more frequently PRN. -1a. Level of Consciousness 0 - Alert; keenly responsive -1b. LOC Questions 0 - Answers BOTH questions correctly -1c. LOC Commands 0 - Performs BOTH tasks correctly -2. Best Gaze 0 - Normal -3. Visual 0 - No visual loss -4. Facial Palsy 0 - Normal symmetrical movements -5a. Left Arm 0 - No drift; arm holds 90 ( or 45) degrees for full 10 seconds -5b. Right Arm 0 - No drift; arm holds 90 ( or 45) degrees for full 10 seconds -6a. Left Leg 0 - No drift; leg holds 30- degree position for full 5 seconds -6b. Right Leg 0 - No drift; leg holds 30- degree position for full 5 seconds -7. Limb Ataxia 0 - Absent -8. Sensory 0 - Normal; no sensory loss -9. Best Language 0 - No aphasia; normal -10. Dysarthria 0 - Normal -11. Extinction and Inattention 0 - No abnormality -Total 0 Query Text:A score of 0 is normal or asymptomatic. Total possible score is 42 . ED: Notify Physician for NIHSS increase by > / = 3 points. Inpatient: RN or Physician to activate a stroke alert for NIHSS increase of > / = 3 points. Coma Scale [Assess] -Eye Opening Spontaneous -Motor Obeys Commands -Verbal Oriented [Total] -Coma Scale Total 15
[2025-02-18 13:59] LABS: Hemoglobin A1c 5.5 % (<=5.6)
--- NOTE | 2025-02-18 14:10 | NEURO.CONS ---
Assessment and Plan: Neuro Assessment/Plan JOANN MERRITT is a 84 F with a past medical history of UC, being evaluated by Teleneurology for transient confusion and L leg weakness, largely resolved. Imaging is benign, the clinical history is suggestive of TIA at this time Diagnosis: TIA Plan: - Anti-platelet medication: Plavix 300mg now, then [id number] + Plavix 75mg daily for 21 days, then Aspirin 81 mg daily only thereafter - Occupational/ Physical therapy consults - SBP goal normotensive< 140/80 - DVT prophylaxis with SCDs and heparin SQ - Vascular risk factor modification. The following are the recommended guidelines: LDL Goal < 70 agree with lipitor 40mg as LDL 108, A1C 5.5 Smoking Cessation Diabetes Management half-way blood pressure control should achieve <130/80 mmHg. BP management should aim to achieve skilled nursing contorl in a reasonable amount of time, taking into consideration the individual patient's requirements and characteristics. Weight Management: Goal for BMI is 18.5 -24.9 kg/m2 Alcohol: No more than 2 drinks/day for men or 1 drink/day for non- women - Promote lifestyle modification: weight control, physical activity, moderation of alcohol intake, moderate sodium intake. Followup with PCP in 1-2 weeks, and in Neurology clinic in 6-12 weeks I personally attended this patient and spent a total time of 45minutes evaluating this patient including clinical assessment, review of chart, medical history imaging, and determining appropriate treatment and workup. HPI Consult Data Date of Consult: 02/18/25 HPI Narrative HPI Narrative: JOANN MERRITT, is an 84y/o F w/ hx of UC who presented to [facility] ED 02/17/25 d/t weakness and AMS. Pt woke up earlier and got out of bed, she remembers sitting on the couch and at some point felt heavy all over and a little foggy. Son reported she was not responding so he called 911. Patient reports feeling completely fine now. Son reported that when patient got up this morning she went from her bathroom to the living room and looked like she was wobbly and off balance and was holding onto things, he asked if she needed to go to the hospital and she said no but when she sat down she put her head in her hands and looked like she was falling over. Son was yelling at her and she was not responding so he called 911. By the time EMS arrived she felt better. Reportedly this has happened before and usually occurs in the morning right after she gets out of bed but this is the worst that it has happened. Between patient getting to the ED and evaluation she developed left lower extremity weakness and felt her left arm was heavy, her repeat NIH was 2 so there was a stroke on the ED. TNK was not indicated, workup thus far unremarkable with negative CTA and negative CT brain. Vitals in the ED with temp 97.6, heart rate of 60 and blood pressure 165/58, pulse ox 99% on room air. Teleneurology recommended admission for stroke rule out. Hospitalist contacted for admission. Patient evaluated at bedside with sons present, patient irritable and seems to get irritated with questioning. Summarized the history as above and she and family bedside report that that is accurate. Patient notes that she did develop the left lower extremity and arm heaviness since she has been here, when asked if it is improved she said she has been moving so she does not know, possibly seems that the weakness has been improving, still feels some left lower extremity heaviness but not as much overt weakness. Does report headaches, and/or she has a headache right now though just because she has not had her coffee or food and that headaches are not uncommon for her during the summer. ROS otherwise negative at this time Neurologic History Pt felt heavy all over and foggy. This has happened in the past - she will get lightheaded if she gets up really quickly. Pt was trying to get up from the couch when this occurred. Pt denies losing consciousness. Patient also had L leg weakness. There was also numbness of the L leg.Pt feelsl veronica her head is swollen but no pain. Currently the L leg is slowly getting back to normal. Son saw the event, she was leaned down with head in her hand. After she came to and got a litle better, son did not notice facial droop or slurred speech. No other symptoms, nothing else like this ever happened. -? General: Laying comfortably in bed; in no acute distress. -? HENT: Normal oropharynx and mucosa. Normal external appearance of ears and nose. Exophthalmos. -? Neck: Supple, no pain or tenderness -? CV:? No peripheral edema. -? Pulmonary:? Normal respiratory effort. -? Ext: No cyanosis, edema, or deformity -? Skin: No rash. Normal palpation of skin.? -? Musculoskeletal: full range of motion; no joint tenderness. Normal digits and nails by inspection. No clubbing. -? NEURO: -? Mental Status: The patient was alert and oriented to time, place, and person. Normal recent/remote memory, concentration, and general fund of knowledge. -? Language: speech is clear.? Naming, repetition, fluency, and comprehension intact. -? Cranial Nerves: PERRL 3mm/brisk. EOMI, visual fay full, no facial asymmetry, facial sensation intact, hearing intact, tongue midline, no evidence of atrophy or fibrillations. -? Motor: normal bulk, tone, and strength throughout. No pronator drift or satelliting. Upper and lower extremities equal bilaterally. -? Detailed strength exam as performed by the nurse/KIRILL and witnessed by the physician: R L SA 5 5 EE EF WE WF Mobility Specialist 5 5 HF 5 4 KE KF 5 5 DF 5 5 PF -? Tone: is normal and bulk is normal -? Sensation- Intact to light touch bilaterally -? Coordination: No dysmetria on [id number], finger follow finger or [id number]. -? Gait- deferred [facility] Medical History Osteoarthritis Right anterior knee pain History of colon cancer Chronic anemia Ulcerative colitis C. difficile colitis Ulcerative colitis Severe malnutrition Cataract Arthritis Seasonal allergies History of colon cancer Home Medications ?Medication ?Instructions ?Recorded ?Last Taken ?Type ustekinumab 90 mg/mL subcutaneous 90 mg subcut Q8W 12 months #1 mL 06/26/24 02/04/25 Rx syringe (Stelara) acetaminophen 500 mg capsule 1,000 mg PO Q6H PRN fever or pain 02/17/25 02/15/25 History Allergy/AdvReac Type Severity Reaction Status Date / Time Sulfa (Sulfonamide Allergy Rash Verified 02/17/25 10:40 Antibiotics) amoxicillin (From Augmentin) AdvReac Vomiting Verified 02/17/25 10:40 clavulanic acid (From AdvReac Vomiting Verified 02/17/25 10:40 Augmentin) fexofenadine (From Rose) AdvReac Other Verified 02/17/25 10:40 hydrocodone AdvReac out of it Verified 02/17/25 10:40 Family History Mother No problems noted. Grandmother Arthritis Grandfather Arthritis Other Heart disease Surgical History History of appendectomy History of cholecystectomy H/O breast biopsy Surgical history of tubal ligation S/P partial colectomy S/P cholecystectomy Social History household members: family housing: house Smoking Status: Never smoker alcohol intake: never substance use type: does not use what type of physical activity do you participate in: walking frequency: daily Vital Signs Vital Signs Vital Signs: 02/17/25 14:30 02/17/25 14:56 02/17/25 15:22 Temperature 98.0 F 97.6 F L Temperature Source Oral Pulse Rate 63 63 73 Respiratory Rate 16 16 16 Respiratory Effort Respiratory Depth Respiratory Pattern Blood Pressure 138/59 H 149/64 H 133/78 H Blood Pressure Mean 85 92 96 Blood Pressure Source Monitor Blood Pressure Position Sitting Blood Pressure Location Right Arm Pulse Ox 97 97 98 Oxygen Delivery Method Room Air Room Air 02/17/25 18:30 02/17/25 21:41 02/17/25 21:41 Temperature 97.8 F 98.3 F Temperature Source Oral Oral Pulse Rate 69 63 Respiratory Rate 16 14 Respiratory Effort Normal Non-Labored Respiratory Depth Normal Respiratory Pattern Normal Blood Pressure 142/71 H 121/72 H Blood Pressure Mean 94 88 Blood Pressure Source Monitor Monitor Blood Pressure Position Semi-Fowlers Semi-Fowlers Blood Pressure Location Right Arm Left Arm Pulse Ox 98 98 Oxygen Delivery Method Room Air Room Air 02/17/25 21:55 02/18/25 02:00 02/18/25 03:00 Temperature 98.3 F 97.2 F L Temperature Source Oral Temporal Pulse Rate 63 59 L Respiratory Rate 14 13 Respiratory Effort Normal Non-Labored Respiratory Depth Normal Respiratory Pattern Normal Blood Pressure 121/72 H 116/69 Blood Pressure Mean 88 84 Blood Pressure Source Monitor Monitor Blood Pressure Position Semi-Fowlers Semi-Fowlers Blood Pressure Location Left Arm Right Arm Pulse Ox 98 96 Oxygen Delivery Method Room Air Room Air Room Air 02/18/25 05:04 02/18/25 06:00 02/18/25 07:32 Temperature 97 F L 97.8 F Temperature Source Temporal Oral Pulse Rate 64 60 Respiratory Rate 12 14 Respiratory Effort Respiratory Depth Respiratory Pattern Blood Pressure 129/63 H 131/74 H Blood Pressure Mean 85 93 Blood Pressure Source Monitor Monitor Blood Pressure Position Semi-Fowlers Semi-Fowlers Blood Pressure Location Right Arm Right Arm Pulse Ox 96 96 97 Oxygen Delivery Method Room Air Room Air Room Air 02/18/25 07:35 02/18/25 08:20 02/18/25 11:30 Temperature 98 F Temperature Source Oral Pulse Rate 70 Respiratory Rate 16 Respiratory Effort Normal Non-Labored Respiratory Depth Normal Respiratory Pattern Normal Blood Pressure 123/69 H Blood Pressure Mean 87 Blood Pressure Source Monitor Blood Pressure Position Semi-Fowlers Blood Pressure Location Right Arm Pulse Ox 96 97 Oxygen Delivery Method Room Air Room Air Room Air 02/18/25 12:20 Temperature Temperature Source Pulse Rate Respiratory Rate Respiratory Effort Respiratory Depth Respiratory Pattern Blood Pressure Blood Pressure Mean Blood Pressure Source Blood Pressure Position Blood Pressure Location Pulse Ox 97 Oxygen Delivery Method Weight Weight: 49.952 kg Body Mass Index (BMI) 18.8 EEG Results Procedure Details EEG Procedure Details: JOANN MERRITT is a 84 year old F with a past medical history of , who presents for evaluation of Electroencephalogram on DATE at TIME Lab / Micro Data 02/18/25 05:27 02/18/25 05:27 Labs: Laboratory Results - last 24 hr 02/17/25 15:40: Troponin T Hi Sens 4Hr < 6 02/18/25 05:27: WBC 8.7, RBC 5.07, Hgb 14.9, Hct 45.4, MCV 89.5, MCH 29.4, MCHC 32.8, RDW Std Deviation 44.3 H, RDW Coeff of Rhonda 13.5, Plt Count 173, MPV 12.2 H, Immature Gran % (Auto) 0.100, Neut % (Auto) 53.2, Lymph % (Auto) 35.7, [place] % (Auto) 7.7, Eos % (Auto) 1.7, Baso % (Auto) 1.6 H, Absolute Neuts (auto) 4.6, Absolute Lymphs (auto) 3.10, Nucleated RBC % 0, Sodium 140, Potassium 4.0, Chloride 106, Carbon Dioxide 23.3, Anion Gap 11, BUN 12, Creatinine 0.87, Estim Creat Clear Calc 38.64 L, Est GFR (MDRD) Non-Af 66, BUN/Creatinine Ratio 14.1, Glucose 93, Hemoglobin A1c 5.5, Calcium 8.9, Triglycerides 61, Cholesterol 182, LDL Cholesterol, Calc 108, VLDL Cholesterol 12, HDL Cholesterol 62, Cholesterol/HDL Ratio 2.94, TSH 1.640, Free T4 1.10, Free T3 pg/dL 3.3 Rhythm Strip Rhythm Strip: Sinus Rhythm Rate: 60 Ectopy: None Imaging Radiology Impression Head/Neck CTA 02/17/25 12:32 IMPRESSION: No large vessel occlusion or high grade stenosis within the intracranial or neck arterial vasculature. Reading Location: [facility] Active Medications Active Medications Active Medications: Current Medications Generic Name Dose Route Start Last Admin Trade Name Freq PRN Reason Stop Dose Admin Acetaminophen 650 mg 02/17/25 15:10 Acetaminophen 325 Mg Tablet PO Q6H PRN PRN Pain 1-10 Or Fever >100.7 Albuterol Sulfate 2.5 mg 02/17/25 15:10 Albuterol 2.5 Mg/3 Ml Vial.Neb. INHALATION Q2H PRN PRN SOB &/OR WHEEZING Aspirin 81 mg 02/18/25 08:00 02/18/25 08:42 Aspirin 81 Mg Tab.Chew PO 81 mg BREAKFAST ROBERTO Administration Atorvastatin Calcium 40 mg 02/17/25 22:00 02/17/25 21:30 Atorvastatin Calcium 40 Mg Tablet PO 40 mg QHS ROBERTO Administration Hydralazine HCl 5 mg 02/17/25 15:10 Hydralazine 20 Mg/Ml Vial IV 02/18/25 15:10 Q30M PRN maintain BP parameters with HR <60 Sodium Chloride 250 mls @ 15 mls/hr 02/17/25 15:28 IV .[id number] PRN Saline Flush Sodium Chloride 250 mls @ 15 mls/hr 02/17/25 15:28 IV .[id number] PRN Additional IVPB Infusion Labetalol HCl 10 - 20 mg 02/17/25 15:10 Labetalol 20mg/4ml Syringe IV 02/18/25 15:10 Q10M PRN PRN maintain BP parameters with HR >/=60 Melatonin 3 mg 02/17/25 15:10 Melatonin 3 Mg Tablet PO QHS PRN PRN INSOMNIA Ondansetron HCl 4 mg 02/17/25 15:10 02/18/25 04:58 Ondansetron 4 Mg/2 Ml Vial IV 4 mg Q8H PRN PRN Administration NAUSEA/VOMITING Senna/Docusate Sodium 2 tablet 02/17/25 15:10 Senna/Docusate Sodium 1 Tablet PO BID PRN PRN Constipation Sodium Chloride 10 - 40 ml 02/17/25 15:28 02/18/25 04:59 0.9% Saline Lock 10 Ml Syringe IV 10 ml UD PRN Administration SALINE FLUSH NIHSS NIHSS Nursing Documentation NIHSS Nursing Documentation: NIHSS: Ischemic Stroke/TIA Start: 02/17/25 15:10 Text: For PCU Patients: NIH and Neuro Check every 4 Status: Active hours, PRN and with change in RN caregiver. Freq: [id number] Protocol: Activity Type Activity Date Activity User E-sign Co-sign Detail Recorded Client Recorded Date Recorded By Document 02/18/25 11:30 DS [id number] 02/18/25 12:03 DS 02/18/25 11:30 NIH Stroke Scale [NIHSS] A score of 0 is normal or asymptomatic . Total possible score is 42. Inpatient: RN or Physician to activate a stroke alert for onset of new stroke symptoms or with NIHSS increase >/= 3 points. Following change in neurological status, NIHSS will be performed per physician order or more frequently PRN. -1a. Level of Consciousness 0 - Alert; keenly responsive -1b. LOC Questions 0 - Answers BOTH questions correctly -1c. LOC Commands 0 - Performs BOTH tasks correctly -2. Best Gaze 0 - Normal -3. Visual 0 - No visual loss -4. Facial Palsy 0 - Normal symmetrical movements -5a. Left Arm 0 - No drift; arm holds 90 ( or 45) degrees for full 10 seconds -5b. Right Arm 0 - No drift; arm holds 90 ( or 45) degrees for full 10 seconds -6a. Left Leg 0 - No drift; leg holds 30- degree position for full 5 seconds -6b. Right Leg 0 - No drift; leg holds 30- degree position for full 5 seconds -7. Limb Ataxia 0 - Absent -8. Sensory 0 - Normal; no sensory loss -9. Best Language 0 - No aphasia; normal -10. Dysarthria 0 - Normal -11. Extinction and Inattention 0 - No abnormality -Total 0 Query Text:A score of 0 is normal or asymptomatic. Total possible score is 42 . ED: Notify Physician for NIHSS increase by > / = 3 points. Inpatient: RN or Physician to activate a stroke alert for NIHSS increase of > / = 3 points. Coma Scale [Assess] -Eye Opening Spontaneous -Motor Obeys Commands -Verbal Oriented [Total] -Coma Scale Total 15 NIHSS 1a. Level of Consciousness: 0 - Alert; keenly responsive 1b. LOC Questions: 0 - Answers BOTH questions correctly 1c. LOC Commands: 0 - Performs BOTH tasks correctly 2. Best Gaze: 0 - Normal 3. Visual: 0 - No visual loss 4. Facial Palsy: 0 - Normal symmetrical movements 5a. Left Arm: 0 - No drift; arm holds 90 (or 45) degrees for full 10 seconds 5b. Right Arm: 0 - No drift; arm holds 90 (or 45) degrees for full 10 seconds 6a. Left Le - No drift; leg holds 30-degree position for full 5 seconds 6b. Right Le - No drift; leg holds 30-degree position for full 5 seconds 7. Limb Ataxia: 0 - Absent 8. Sensory: 0 - Normal; no sensory loss 9. Best Language: 0 - No aphasia; normal 10. Dysarthria: 0 - Normal 11. Extinction and Inattention: 0 - No abnormality Total: 0
--- NOTE | 2025-02-18 16:22 | CASEMGMT ---
AMARJIT CM in to discuss CRAWFORD form with patient. RN CM explained CRAWFORD form, patient voiced understanding. Pt signed form and filed in chart. Pt provided with a copy of signed CRAWFORD form. Patient had no further questions or concerns at this time.
--- NOTE | 2025-02-18 16:24 | CHAPLAIN ---
Type of Pastoral Visit _x__ Initial Visit ___ Follow-up Visit ___ On-call Visit ___ General Patient Visit ___ Spiritual Assessment ___ Family Conference ___ Bereavement ___ Rapid Response ___ Code Blue ___ Other (describe below) Pastoral Care Referral From _x__ Patient ___ Family ___ Nurse ___ Physician ___ Square Shear Operator ___ Motorcycle Sales Associate ___ Other (describe below) Sacrament/Intervention _x__ Active listening ___ Anointing ___ Scientologist ___ Bereavement ___ Communion ___ Berna exploration ___ _x__ Life review _x__ Prayer ___ Reconciliation ___ Sacrament of Sick _x__ Supportive presence ___ Wedding ___ Other (describe below) Pastoral Comments patient has been seen before and other family members have been seen by this safety manager too; son of pt is in the room; pt talks about her 'feeling funny and hard to explain symptoms'; pt is here for tests but isn't convinced that anything will be found out; pt is not optimistic about her life but says I will just go on anyway; pt accepts presence and prayer
[2025-02-18] MEDS: Clopidogrel Bisulfate 300 MG Tablet PO (16:33)
[2025-02-19 00:04] VITALS: BP 126/69; PULSE 77; RESP 16; TEMP 36.4; O2SAT 95
[2025-02-19 03:00] VITALS: PULSE 64
[2025-02-19 04:07] VITALS: BP 125/65; PULSE 54; RESP 16; TEMP 36; O2SAT 99
[2025-02-19] MEDS: Aspirin 81 MG TAB.CHEW PO (08:07)
--- NOTE | 2025-02-19 08:53 | DCINST_ITS ---
Discharge Instructions Diet Discharge Diet: 2000 mg Sodium Diet DC O2, CPAP, BIPAP needs Home O2 Discharge instructions: No Dressing / Incision Discharge Activity: Return to Normal Activity Weight Bearing Status: Weight bearing as tolerated Dressing / Incision Call your doctor if you observe: Fever of 101 or Higher, Coldness, Increased Pain, Numbness or Tingling, Change in Color, Inability to urinate, Inability to have a bowel movement, Shortness of breath, Dizziness, Fainting spells, Swelling in the ankles, Chest pain, Prolonged hiccupping, Increased palpitations (irregular heartbeat) and Calf discomfort Follow Up Care When: IN 2 WEEKS Test Results: Test results from this visit will be discussed in further detail at your follow- up appointment, if applicable. Discharge Plan Admission Admit Date/Time: 02/17/25 14:37 Primary Reason for Your Visit: Possible TIA Attending Provider: Chip Fulton Primary Care Provider: Varinder Phoenix Consulting Providers: Sandy Paige Discharge Orders/Prescriptions Prescriptions: New atorvastatin 40 mg Tablet 40 mg PO QHS 30 Days Qty: 30 2RF clopidogrel 75 mg Tablet 75 mg PO DAILY 21 Days Qty: 21 0RF aspirin 81 mg Tablet,Chewable 81 mg PO BREAKFAST 30 Days Qty: 30 3RF Continued acetaminophen 500 mg capsule 1,000 mg PO Q6H PRN (Reason: fever or pain) Stelara 90 mg/mL syringe 90 mg subcut Q8W 360 Days Qty: 1 6RF Rx Instructions: Inject one syringe SQ every 8 weeks starting 8 weeks after induction infusion. Other Ambulatory Orders: 30 Day Event Recorder Preventi (Urgent) Timeframe: 1 Day Facility: [facility] - Location: Cardiovascular Services Ordered By: Dr. Chip Fulton Referrals / Follow Up: Dinh Dubose MD [Non-Staff -Ordering Privileges] - Within 1 Month (For clinical suspicion of TIA) Varinder Phoenix, [facility] [Primary Care Provider] - Disposition Disposition (needs filled in before D/C Order can be placed): Home, Self Care
[2025-02-19 08:54] VITALS: O2SAT 95
[2025-02-19] MEDS: Clopidogrel Bisulfate 75 MG Tablet PO (10:28)
[2025-02-19 10:29] VITALS: BP 129/65; PULSE 62; RESP 18; TEMP 36.6; O2SAT 96
[2025-02-19 11:13] VITALS: BMI 18.8
--- NOTE | 2025-02-19 12:10 | DS.PCM_ITS ---
Providers Date of Admission: 02/17/25 Date of Discharge: 02/19/25 Primary Care Physician: IDALMIS Hollis Consultations 02/17/25 15:10 Consult: Tele-Neurology Routine Consulting Provider: [facility] Reason for Consult: Acute Ischemic Stroke/TIA EMERGENT Consult: No MD Notified: Yes Date Notified: 02/17/25 Time Notified: 16:34 Method of Notification: Answering Service Nursing Unit Staff Notify [facility] of Tele-Neurology Consult: Yes Reason For Visit: CVA/TIA R/O Diagnosis Discharge Diagnosis (1) Neurologic abnormality: Status: Acute Code(s): R29.818 - Other symptoms and signs involving the nervous system (2) Thyroid nodule: Status: Acute Code(s): E04.1 - Nontoxic single thyroid nodule Plan 84-year-old female was admitted with mild confusion/decreased responsiveness along with left-sided weakness/numbness. Patient complained that her son noticed that she was looking strange, person herself felt heavy generalized and a little foggy. Her son reported that she was not responding therefore he called 911. Denies acute onset of confusion, disorientation, change in behavior or language dysarthria. She felt left-sided weakness. # Left leg and left upper extremity heaviness/numbness, most likely TIA, resolved.: Patient is being admitted in PCU. On exam, mild left lower extremity weakness. NIH stroke scale 0. PT, OT, speech therapy/swallow evaluation and management, nursing NIH stroke scale, BP and glucose monitoring and control as per stroke protocol. Lipid profile, TSH: Normal limit. A1c pending. MRI brain and 2D echo with bubble contrast study ordered -CT head w/ no acute process -CTA head and neck with no LVO -Teleneuro consult ordered -Hold BP medications to allow for permissive hypertension for 24 hours unless SBP greater than 220 or DBP greater than 120 or until stroke is ruled out 02/19: Patient is doing well. Left lower leg weakness resolved. Patient was evaluated by neurologist, Dr. Cullen and she thinks patient had TIA. Was given aspirin 81 and Plavix 70 mg and then continue aspirin 81 mg lifelong and Plavix 75 mg daily for 3 weeks. 30-day event monitor. On high intensity statin. Patient is being discharged. Blood pressure and heart rate in normal range. A1c 5.5%. # Thyroid nodule - 6 mm nodule within the right thyroid gland - TSH free T4 and free T3 all normal. - May need outpatient thyroid ultrasound # History of UC -On Stelara on an outpatient basis #DVT ppx: SCDs Discharge medication reconciliation done. Discharge follow-up instructions completed. Discharge process discussed with the patient and all questions were answered to patient's satisfaction. Follow with PCP in 1 to 2 weeks Total time spent, exact 35 minutes on discharge meds reconciliation, examination, coordination of care with nurses and ancillary staff, review of imaging and blood test and discussion with the patient on follow-up instructions. Medications at Discharge Home Medications ustekinumab 90 mg/mL subcutaneous syringe (Stelara) 90 mg subcut Q8W 12 months #1 mL 06/26/24 acetaminophen 500 mg capsule 1,000 mg PO Q6H PRN fever or pain 02/17/25 aspirin 81 mg chewable tablet 81 mg PO BREAKFAST 30 days #30 tabs 02/19/25 atorvastatin 40 mg tablet 40 mg PO QHS 30 days #30 tabs 02/19/25 clopidogrel 75 mg tablet 75 mg PO DAILY 21 days #21 tabs 02/19/25 Physical Exam Narrative Seen and examined. Patient is doing well. No acute complaint. Wants to go home. Physical exam General: Alert, Oriented x3, Cooperative HEENT: Atraumatic, PERRLA, EOMI, Normocephalic. Oral: No Gingival or Mucosal Lesions/ Ulcerations Neck: Supple, No JVD, Negative Carotid Bruits Chest wall/Lungs: Air entry diminished in bilateral lung bases. No crepitation/rhonchi Cardiovascular: Regular rate and rhythm, Normal S1,S2, soft systolic murmur Abdomen: Bowel Sounds Present, Soft, Non Tender, Non-Distended : No dysuria. No renal angle tenderness. No suprapubic tenderness. Extremities: No edema, Capillary Refill Less than 3 Seconds Skin: No rashes, No breakdown Musculoskeletal: LLE mildly weak at knee and hip joints, 4+/5. Rest all 3 extremities 5/5 at major joints. No Tenderness to Palpation of Joints or Extremities Neurological: Cranial nerves II-XII grossly intact, DTR 2+/4. NIH stroke scale 0. GCS 15 for Psych/Mental Status: Normal Affect, Appropriate. Weight / BMI Weight Weight: 110 lb 2.005 oz Body Mass Index (BMI) 18.8 ABG / Lab / Microbiology Data 02/18/25 05:27 02/18/25 05:27 Laboratory: Laboratory Results - last 24 hr 02/18/25 05:27: Hemoglobin A1c 5.5 Radiography Diagnostic Testing: Radiology Impression Echocardiogram 02/17/25 14:46 Interpretation Summary Normal left ventricle. Left ventricular systolic function is normal. The left ventricular ejection fraction is 70 %. Stage 1 diastolic dysfunction. Ordering Physician: Sandy Paige Referring Physician: Varinder Phoenix Performed By: Yani Farah, CRISTI, RVT Brain MRI 02/18/25 08:00 IMPRESSION: No acute intracranial abnormality; no acute infarct, intracranial hemorrhage or extra-axial collection. Chronic microvascular ischemia and involutional changes. Reading Location: [facility] Instructions Discharge Diet: 2000 mg Sodium Diet Weight Bearing Status: Weight bearing as tolerated Call your doctor if you observe: Fever of 101 or Higher, Coldness, Increased Pain, Numbness or Tingling, Change in Color, Inability to urinate, Inability to have a bowel movement, Shortness of breath, Dizziness, Fainting spells, Swelling in the ankles, Chest pain, Prolonged hiccupping, Increased palpitations (irregular heartbeat) and Calf discomfort DC O2, CPAP, BIPAP Needs Home O2 Discharge instructions: No When: IN 2 WEEKS Meaningful Use Info Meaningful Use Meaningful Use Diagnoses (Choose all that apply): None applicable Ischemic Stroke Statin Dosing Therapy Reference: STATIN DOSE THERAPY REFERENCE: * Patients > 75 years receive moderate or high dose statin therapy. * Patients 75 years or YOUNGER should receive HIGH intensity statin dose unless contraindicated. You will be required to document reason for non-treatment if statin daily dose does not meet guidelines. HIGH DOSE STATIN THERAPY DAILY Atorvastatin > than or = to 40 mg Rosuvastatin > than or = to 20 mg Amlodipine + Atorvastatin > than or = to 2.5/40 mg Ezetimibe + Simvastatin 10/80 mg Simvastatin 80mg Discharge Plan Admission Admit Date/Time: 02/17/25 14:37 Primary Reason for Your Visit: Possible TIA Attending Provider: Chip Fulton Primary Care Provider: Varinder Phoenix Consulting Providers: Sandy Paige Discharge Orders/Prescriptions Prescriptions: New atorvastatin 40 mg Tablet 40 mg PO QHS 30 Days Qty: 30 2RF clopidogrel 75 mg Tablet 75 mg PO DAILY 21 Days Qty: 21 0RF aspirin 81 mg Tablet,Chewable 81 mg PO BREAKFAST 30 Days Qty: 30 3RF Continued acetaminophen 500 mg capsule 1,000 mg PO Q6H PRN (Reason: fever or pain) Stelara 90 mg/mL syringe 90 mg subcut Q8W 360 Days Qty: 1 6RF Rx Instructions: Inject one syringe SQ every 8 weeks starting 8 weeks after induction infusion. Other Ambulatory Orders: 30 Day Event Recorder Preventi (Urgent) Timeframe: 1 Day Facility: [facility] - Location: Cardiovascular Services Ordered By: Dr. Chip Fulton Referrals / Follow Up: Dinh Dubose MD [Non-Staff -Ordering Privileges] - Within 1 Month (For clinical suspicion of TIA) Varinder Phoenix, S[employer] PRO[employer] ENGINEER-C [Primary Care Provider] - Disposition Disposition (needs filled in before D/C Order can be placed): Home, Self Care Charges/Coding Visit Charges Inpatient E&M: 90368 Disch Hosp >30min
--- NOTE | 2025-02-19 12:49 | CASEMGMT ---
Patient has order for discharge. RN CM in to discuss needs at discharge, son at discharge. Patient denies needs or help at discharge. Patient and son had no further questions or concerns.
--- NOTE | 2025-02-19 15:40 | PHA.DC_ITS ---
Pharmacy MD Med Reconciliation Pharmacy Service has performed discharge medication reconciliation for this patient. Medication education papers prepared, patient discharged before I was able to certified genetic counselor. Medications reviewed. The patient's discharge medication list was reviewed for discrepancies and discrepancies were resolved. Medications at Discharge Home Medications ustekinumab 90 mg/mL subcutaneous syringe (Stelara) 90 mg subcut Q8W 12 months #1 mL 06/26/24 acetaminophen 500 mg capsule 1,000 mg PO Q6H PRN fever or pain 02/17/25 aspirin 81 mg chewable tablet 81 mg PO BREAKFAST 30 days #30 tabs 02/19/25 atorvastatin 40 mg tablet 40 mg PO QHS 30 days #30 tabs 02/19/25 clopidogrel 75 mg tablet 75 mg PO DAILY 21 days #21 tabs 02/19/25
== END 2025-02-19 12:07 | disposition home or self-care (01) ==
LOC: ED 14:21 → PCU 15:18
PROVIDERS: Admitting Provider Internal Medicine; Emergency Provider Emergency Medicine; PCP Nurse Practitioner Family; Referring Provider Internal Medicine; Visit Provider Internal Medicine
DX: R29.898 Other symptoms and signs involving the musculoskeletal system (principal); K51.90 Ulcerative colitis, unspecified, without complications; R29.818 Other symptoms and signs involving the nervous system; E04.1 Nontoxic single thyroid nodule; R41.82 Altered mental status, unspecified; R42 Dizziness and giddiness; Z79.899 Other long term (current) drug therapy
CPT/HCPCS: 36415; 70450; 70496; 70498; 70551; 71046; 80048; 80053; 80061; 81001; 83036; 84439; 84443; 84481; 84484; 85025; 93005; 93306; 94762; 96374; 97162; 97166; 97535; 97802; 99221; 99285; Q9967; A4216; G0378; J2405

== ENCOUNTER → 2025-08-07 | Outpatient (CLI) | payer MEDICARE, OTHER, SELFPAY ==
[2025-08-07 16:38] LABS: AST(SGOT) 22 U/L (<=31); Alanine Aminotransfer ALT/SGPT 10 U/L (<=34); Albumin, Serum 4.4 g/dL (3.4-4.8); Alkaline Phosphatase 83 U/L (35-104); Anion Gap 11 (5-15); BUN 13 mg/dL (4-19); BUN/Creat Ratio 14.0 RATIO (10-20); CRP < 3.00 mg/L (0.0-3.0); Calcium,Total 9.6 mg/dL (7.6-11.0); Carbon Dioxide 26.7 mmol/L (21.0-32.0); Chloride 106 mmol/L (98-108); Globulin 2.9 g/dL (2.2-4.2); Glucose 100 mg/dL (70-99); Potassium 4.4 mmol/L (3.3-5.1)
[2025-08-07 16:57] LABS: Hematocrit 50.4 % (37-47); Hemoglobin 16.1 g/dL (12.0-15.0); Immature Granulocytes Count 0.030 X10^3/uL (0.0-0.0); Mean Corp Hgb Conc 31.9 g/dL (32-36); Mean Corpuscular Volume 92.8 fL (81-99); Mean Platelet Vol. 12.7 fl (6.2-12.0); NRBC Flagged by Analyzer 0 % (0-5); Platelet Count 191 K/mm3 (150-450); RBC Distribution Width CV 13.2 % (11.6-14.6); RBC Distribution Width SD 44.3 fl (35.1-43.9); Red Blood Count 5.43 M/mm3 (4.2-5.4); White Blood Count 8.5 K/mm3 (4.4-11.0)
== END | disposition home or self-care (01) ==
PROVIDERS: PCP Nurse Practitioner Family; Referring Provider Internal Medicine Gastroenterology; Visit Provider Internal Medicine Gastroenterology
DX: K51.00 Ulcerative (chronic) pancolitis without complications (principal); D64.9 Anemia, unspecified
CPT/HCPCS: 80053; 85025; 85652; 86140

== ENCOUNTER 2025-08-09 09:41 | Inpatient (IN) | payer MEDICARE, OTHER, SELFPAY ==
[2025-08-09] VITALS (16 sets, daily range): BP systolic 105–149; BP diastolic 49–117; PULSE 50–90; RESP 12–18; TEMP 36.4–37.1; O2SAT 95–100; BMI 20.5
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
[2025-08-09 10:37] LABS: Hematocrit 47.6 % (37-47); Hemoglobin 15.5 g/dL (12.0-15.0); Immature Granulocytes Count 0.030 X10^3/uL (0.0-0.0); Mean Corp Hgb Conc 32.6 g/dL (32-36); Mean Corpuscular Volume 92.4 fL (81-99); Mean Platelet Vol. 12.5 fl (6.2-12.0); NRBC Flagged by Analyzer 0 % (0-5); Platelet Count 176 K/mm3 (150-450); RBC Distribution Width CV 13.1 % (11.6-14.6); RBC Distribution Width SD 44.6 fl (35.1-43.9); Red Blood Count 5.15 M/mm3 (4.2-5.4); White Blood Count 7.6 K/mm3 (4.4-11.0)
[2025-08-09] MEDS: 0.9% Normal Saline (1000mL) 1,000 ML 1000 ML IV (10:39)
[2025-08-09 10:46] LABS: Mucous, Urine 0 SEEN /hpf (<or=2+); Red Blood Cells-Urine 0 SEEN /hpf (0-5); Squamous Epithelial Cells - UA 0 SEEN /hpf (5-10)
[2025-08-09 10:50] LABS: Color, Urine Yellow (Yellow); Glucose, Dipstick Normal (Normal); Ketone-Dipstick Negative (Negative); Leukocyte Esterase-Dipstick Negative /ul (Negative); Nitrite-Dipstick Negative (Negative); Occult Blood-Urine 10 /ul (Negative); Protein-Dipstick 15 mg/dl (Negative); Specific Gravity, Urine 1.010 (1.002-1.030); Urine Bilirubin Dipstick Negative (Negative)
[2025-08-09 10:53] LABS: Prothrombin Time (Protime)PT. 13.1 SECONDS (11.7-14.9)
[2025-08-09 10:55] LABS: BUN 13 mg/dL (4-19); BUN/Creat Ratio 13.9 RATIO (10-20); Estimated Creatinine Clearance 39.52 ml/min (50-250); Glucose 92 mg/dL (70-99); Troponin T High Sensitivity < 6 ng/L (<=14)
[2025-08-09 10:56] LABS: AST(SGOT) 17 U/L (<=31); Alanine Aminotransfer ALT/SGPT 9 U/L (<=34); Albumin, Serum 4.1 g/dL (3.4-4.8); Alkaline Phosphatase 73 U/L (35-104); Anion Gap 10 (5-15); Calcium,Total 8.3 mg/dL (7.6-11.0); Carbon Dioxide 25.6 mmol/L (21.0-32.0); Chloride 107 mmol/L (98-108); Globulin 2.4 g/dL (2.2-4.2); Lipase 79 U/L (13-75); Potassium 4.4 mmol/L (3.3-5.1); Pro- Brain NATRIURETIC PEPTIDE 178 pg/mL (<=1800)
--- NOTE | 2025-08-09 11:05 | CT_ITS ---
PROCEDURE: CT/Brain/Head without Contrast
--- NOTE | 2025-08-09 11:10 | RAD_ITS ---
PROCEDURE: RAD/Chest 1 View (Portable)
[2025-08-09] MEDS: hydrOXYzine PAM 25 MG Capsule PO (12:27)
--- NOTE | 2025-08-09 13:43 | MRI_ITS ---
PROCEDURE: MRI/Brain without Contrast
--- NOTE | 2025-08-09 13:43 | PCM.HP.STD ---
HPI - General General Date of Service: 08/09/25 Chief Complaint: hallucinations. HPI Narrative JOANN MERRITT, is a 85 F who presents with hallucinations this is a 81 female with a past medical history presents from home with hallucinations. The hallucinations are the patient, who is 85 years old, seeing her father in the room. Symptoms persisted for a while so that led to the family the bring patient to the emergency room. And patient underwent a workup with a head CT, urinalysis, chest x-ray, COVID/influenza/RSV which were all negative. The plan was for the patient to go home but then she started hallucinating again seeing her father. The family was concerned and the hospital service was contacted. Patient has had hallucinations in the past but they have been rather nonspecific as another individual, not necessarily her father, being present in her room. Usually symptoms were very limited and many times associated with a urinary tract infection. Patient right now complains of a headache her vision being blurry. She does have chronic left lower extremity weakness that was felt to be due to a TIA. Also while patient was in the room she started having rigors where she was shaking the whole bed. Patient was since wrapped in blankets and is finally feeling warm. [ ] [facility] Medical History Osteoarthritis Right anterior knee pain History of colon cancer Chronic anemia Ulcerative colitis C. difficile colitis Ulcerative colitis Severe malnutrition Cataract Arthritis Seasonal allergies History of colon cancer Home Medications ?Medication ?Instructions ?Recorded ?Last Taken ?Type ustekinumab 90 mg/mL subcutaneous 90 mg subcut Q8W 12 months #1 mL 06/26/24 02/04/25 Rx syringe (Stelara) acetaminophen 500 mg capsule 1,000 mg PO Q6H PRN fever or pain 02/17/25 02/15/25 History aspirin 81 mg chewable tablet 81 mg PO BREAKFAST 30 days #30 tabs 02/19/25 Unknown Rx hydroxyzine pamoate 25 mg capsule 50 mg (2 x 25 mg) PO TID PRN PRN 08/09/25 Unknown Rx Anxiety #8 CAPSULES Allergy/AdvReac Type Severity Reaction Status Date / Time Sulfa (Sulfonamide Allergy Rash Verified 02/17/25 10:40 Antibiotics) amoxicillin (From Augmentin) AdvReac Vomiting Verified 02/17/25 10:40 clavulanic acid (From AdvReac Vomiting Verified 02/17/25 10:40 Augmentin) fexofenadine (From Rose) AdvReac Other Verified 02/17/25 10:40 hydrocodone AdvReac out of it Verified 02/17/25 10:40 Family History Mother No problems noted. Grandmother Arthritis Grandfather Arthritis Other Heart disease Surgical History History of appendectomy History of cholecystectomy H/O breast biopsy Surgical history of tubal ligation S/P partial colectomy S/P cholecystectomy Social History household members: family housing: house Smoking Status: Never smoker alcohol intake: never substance use type: does not use what type of physical activity do you participate in: walking frequency: daily ROS ROS Narrative All review of systems were negative except as mentioned above in the history of present illness and the other review of systems. Vital Signs Vital Signs Vital Signs: 08/09/25 09:42 08/09/25 09:46 08/09/25 10:42 Temperature 37.1 C 37.1 C Temperature Source Oral Oral Pulse Rate 51 L 50 L 90 Respiratory Rate 18 18 18 Blood Pressure 146/55 H 146/65 H 132/117 H Blood Pressure Mean 85 92 122 Pulse Ox 100 100 100 Oxygen Delivery Method Room Air Room Air Room Air 08/09/25 10:46 08/09/25 11:00 08/09/25 11:00 Temperature 37.0 C 36.6 C Temperature Source Oral Oral Pulse Rate 58 L 60 Respiratory Rate 18 18 Blood Pressure 132/117 H 142/58 H 142/58 H Blood Pressure Mean 122 86 86 Pulse Ox 100 100 Oxygen Delivery Method Room Air Room Air 08/09/25 11:55 08/09/25 11:56 08/09/25 13:00 Temperature 36.6 C Temperature Source Oral Pulse Rate 58 L 58 L 58 L Respiratory Rate 18 16 14 Blood Pressure 149/57 H 149/57 H 119/103 H Blood Pressure Mean 87 87 108 Pulse Ox 98 98 100 Oxygen Delivery Method Room Air Room Air 08/09/25 13:00 Temperature 36.6 C Temperature Source Oral Pulse Rate 58 L Respiratory Rate 12 Blood Pressure 119/103 H Blood Pressure Mean 108 Pulse Ox 100 Oxygen Delivery Method Room Air Weight Weight: 54.4 kg Body Mass Index (BMI) 20.5 Physical Exam Narrative - Physical Exam General: Alert, Oriented x3, Cooperative, bundled in blankets. HEENT: Atraumatic, PERRLA, EOMI, Normocephalic. Poor dentition. Oral: Moist Mucosa, No Gingival or Mucosal Lesions/ Ulcerations Neck: Supple, No JVD Lungs: Clear to auscultation, Normal air movement Cardiovascular: Regular rate, Normal S1, Normal S2, No murmurs Abdomen: Bowel Sounds Present, Soft, Non Tender, Non-Distended, No Hepato-splenomegaly Extremities: No clubbing, No cyanosis, No edema, Capillary Refill Less than 3 Seconds Skin: No rashes, No breakdown Musculoskeletal: No Tenderness to Palpation of Joints or Extremities Neurological: Cranial nerves II through XII grossly intact, muscle strength 5-5 in upper extremities bilaterally 5-5 in the right lower extremity and 4 out of 5 in the left lower extremity. Sensations grossly intact. Psych/Mental Status: Normal Affect, Appropriate Results Lab / Micro Data Attestation: I reviewed the patient's lab results. Lab results narrative: Chest x-ray personally reviewed and showed no acute infiltrate. Head CT personally reviewed, no bleeding. No prominent atrophy. 08/09/25 09:43 08/09/25 09:43 Labs: Laboratory Results - last 24 hr 08/09/25 09:43: WBC 7.6, RBC 5.15, Hgb 15.5 H, Hct 47.6 H, MCV 92.4, MCH 30.1, MCHC 32.6, RDW Std Deviation 44.6 H, RDW Coeff of Rhonda 13.1, Plt Count 176, MPV 12.5 H, Immature Gran % (Auto) 0.400, Neut % (Auto) 60.7, Lymph % (Auto) 28.9, Mower % (Auto) 7.1, Eos % (Auto) 1.2, Baso % (Auto) 1.7 H, Absolute Neuts (auto) 4.6, Absolute Lymphs (auto) 2.19, Nucleated RBC % 0, PT 13.1, INR 1.0, Sodium 143, Potassium 4.4, Chloride 107, Carbon Dioxide 25.6, Anion Gap 10, BUN 13, Creatinine 0.91, Estim Creat Clear Calc 39.52 L, Est GFR (MDRD) Non-Af 62, BUN/Creatinine Ratio 13.9, Glucose 92, Lactic Acid 2.7 H*, Calcium 8.3, Total Bilirubin 0.44, AST 17, ALT 9, Alkaline Phosphatase 73, Troponin T High Sens < 6, NT pro BNP II 178, Total Protein 6.5, Albumin 4.1, Globulin 2.4, Albumin/Globulin Ratio 1.7, Lipase 79 H 08/09/25 10:40: Urine Color Yellow, Urine Clarity Clear, Urine pH 7.0, Ur Specific [place] 1.010, Urine Protein 15 H, Urine Glucose (UA) Normal, Urine Ketones Negative, Urine Occult Blood 10 H, Urine Nitrite Negative, Urine Bilirubin Negative, Urine Urobilinogen Normal, Ur Leukocyte Esterase Negative, Urine RBC 0 SEEN, Urine WBC 0 SEEN, Ur Squamous Epith Cells 0 SEEN, Urine Bacteria 0 SEEN, Urine Mucus 0 SEEN 08/09/25 10:49: POC Glucose 79 Micro: Microbiology 08/09/25 10:37 Mucosa - Nose SARS-CoV-2, Influenza & RSV (PCR) - Final Imaging Radiology Impression Brain CT 08/09/25 11:05 IMPRESSION: CHRONIC CHANGES. NO ACUTE FINDINGS. Reading Location: [id number] Chest X-Ray 08/09/25 11:10 IMPRESSION: Hyperinflation. The lungs are clear. Reading Location: [id number] Assessment & Plan Assessment/Plan (1) Hallucination, visual: PLAN: Etiology unclear. And concerned about more of an infectious process but nothing thus far presenting itself. Concerned with infection because patient has presented with hallucinations with prior infections but also she was having rigors and her lactic acid was elevated. Will check a respiratory panel. In addition, we will check an MRI and make sure is not a stroke coinciding with this. Additionally an echocardiogram. (2) Lactic acidosis: PLAN: Unclear significance. Monitor for now. Clinically not septic at this time. PLAN: Plan VTE prophylaxis: Low risk given observation status. CODE STATUS: Addressed with the patient and family. Patient is to be full code. Case discussed with the patient's family at bedside. Charges/Coding Visit Charges Inpatient E&M: 13167 Init Hosp L2
[2025-08-09 14:30] LABS: Reflex Lactate? Y
--- NOTE | 2025-08-09 15:06 | CASEMGMT ---
Care Management Face to Face with patient for initial transition planning/care coordination assessment in the ED.? 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 Patient alert and oriented. Patient willing to participate in assessment and is able to answer all questions appropriately.? Care providers, pharmacy, and demographics verified. Admitting Diagnosis: ?Alt LOC Other diagnosis history: ?Arthritis, anemia, osteoarthritis PCP: ?[facility] Specialists: Friend Preferred Pharmacy: [facility] Insurance: ?Medicare Prescription Benefit: ?yes Living Will/HPOA: ?both completed and on file LNOK: ?Son Living Arrangements: ?Patient lives with son on first floor.? Is independent with ADLs.? Family supports IADLs.? Transportation: ?Son and DIL DME: cane, walker, blood pressure cuff, shower bench HHC: None SNF/Rehab: [facility] Resources: None Behavioral Health History: ?None Patient goals: Patient wishes to discharge home, denies need for home health care at this time. Patient denies any further needs or concerns at this time. Disposition Plan: admission to acute; RN CM/SW to follow for discharge planning needs that may arise. Lurdes Galvez, HORSE BUYER, END TRIMMER
--- NOTE | 2025-08-09 15:46 | ECHOL_ITS ---
Reason For Study ECHO/Echo, Limited Study
[2025-08-10] VITALS (7 sets, daily range): BP systolic 103–132; BP diastolic 58–71; PULSE 51–59; RESP 16; TEMP 36.4–36.9; O2SAT 95–98
[2025-08-10 07:53] LABS: Cholesterol 167 mg/dL (<=200); Low Density Lipoprotein Calc. 95 mg/dL; Triglycerides 97 mg/dL; Very Low Density Lipoprotein 19 mg/dL (5-40); cholesterol:hdl ratio screen 3.10
--- NOTE | 2025-08-10 10:51 | PCM.PN.HOSP ---
Subjective Subjective Currently no active hallucinations, MRI was unremarkable. Will obtain an EEG. Doing well otherwise Objective Data Objective Data Vital Signs: Vital Signs Temp Pulse Resp BP Pulse Ox O2 Del Method 97.8 F 59 L 16 126/64 H 98 Room Air 08/10/25 09:11 08/10/25 09:11 08/10/25 09:11 08/10/25 09:11 08/10/25 09:11 08/10/25 09:11 Oxygen Delivery Method Room Air Weight: 116 lb 9.6 oz Body Mass Index (BMI) 20.0 Intake & Output: Intake and Output for Last 24 Hours 08/09/25 08/10/25 08/11/25 03:59 03:59 02:59 Intake Total 1240 / 1240 Balance 1240 / 1240 Lab / Micro Data 08/09/25 09:43 08/09/25 09:43 Labs: Laboratory Results - last 24 hr 08/09/25 09:43: PT 13.1, INR 1.0, Sodium 143, Potassium 4.4, Chloride 107, Carbon Dioxide 25.6, Anion Gap 10, BUN 13, Creatinine 0.91, Estim Creat Clear Calc 39.52 L, Est GFR (MDRD) Non-Af 62, BUN/Creatinine Ratio 13.9, Glucose 92, Lactic Acid 2.7 H*, Calcium 8.3, Total Bilirubin 0.44, AST 17, ALT 9, Alkaline Phosphatase 73, Troponin T High Sens < 6, NT pro BNP II 178, Total Protein 6.5, Albumin 4.1, Globulin 2.4, Albumin/Globulin Ratio 1.7, Lipase 79 H 08/09/25 10:40: Urine Color Yellow, Urine Clarity Clear, Urine pH 7.0, Ur Specific [place] 1.010, Urine Protein 15 H, Urine Glucose (UA) Normal, Urine Ketones Negative, Urine Occult Blood 10 H, Urine Nitrite Negative, Urine Bilirubin Negative, Urine Urobilinogen Normal, Ur Leukocyte Esterase Negative, Urine RBC 0 SEEN, Urine WBC 0 SEEN, Ur Squamous Epith Cells 0 SEEN, Urine Bacteria 0 SEEN, Urine Mucus 0 SEEN 08/09/25 10:49: POC Glucose 79 08/09/25 14:30: Lactic Acid 1.1 08/10/25 05:24: POC Glucose 79 08/10/25 06:11: Triglycerides 97, Cholesterol 167, LDL Cholesterol, Calc 95, VLDL Cholesterol 19, HDL Cholesterol 54, Cholesterol/HDL Ratio 3.10 Micro: Microbiology 08/09/25 17:48 Mucosa - Nasopharyngeal Respiratory Panel (PCR) - Final 08/09/25 10:37 Mucosa - Nose SARS-CoV-2, Influenza & RSV (PCR) - Final Radiography Diagnostic Testing: Radiology Impression Brain CT 08/09/25 11:05 IMPRESSION: CHRONIC CHANGES. NO ACUTE FINDINGS. Reading Location: [id number] Chest X-Ray 08/09/25 11:10 IMPRESSION: Hyperinflation. The lungs are clear. Reading Location: [id number] Brain MRI 08/09/25 13:43 IMPRESSION: 1. No evidence of acute ischemia. Mild changes of chronic microvascular ischemia and volume loss. Reading Location: [facility] Physical Exam Narrative General: Alert, Oriented x3, Cooperative, No apparent distress HEENT: Atraumatic, PERRLA, EOMI, Normocephalic Oral: Moist Mucosa Neck: Supple, No JVD Lungs: Diminished, Normal air movement, No rhonchi, No wheeze, No rales Cardiovascular: Regular rate, Regular Rhythm, Normal S1, Normal S2, No murmurs Abdomen: Soft, Non Tender, Non-Distended, No Hepato-splenomegaly Extremities: No edema, Capillary Refill Less than 3 Seconds Skin: No rashes, No breakdown Musculoskeletal: No Tenderness to Palpation of Joints or Extremities Neurological: No focal neurological deficits, moves all extremities Psych/Mental Status: Normal Affect, Appropriate Assessment & Plan Assessment/Plan (1) Hallucination, visual: (2) Lactic acidosis: PLAN: Plan 1. Hallucinations ? Unclear as to the etiology, she denies any drug use or new prescriptions ? MRI was unremarkable for stroke or any obvious neurological lesions ? Will obtain an EEG, focal seizures can cause hallucinations though this is unlikely ? No obvious signs of infection at this time we will continue to monitor ? Echo is pending 2. Ulcerative colitis ? She is fairly well-controlled on her biologic medication ? Can resume on discharge 3. Anxiety ? Stable ? Continue with her home medications DVT: Ambulation Charges/Coding Visit Charges Inpatient E&M: 27327 Subs Hosp L2 NIHSS NIHSS Nursing Documentation NIHSS Nursing Documentation: NIHSS: Ischemic Stroke/TIA Start: 08/09/25 15:46 Text: For PCU Patients: NIH and Neuro Check every 4 Status: Complete hours, PRN and with change in RN caregiver. Freq: [id number] Protocol: Activity Type Activity Date Activity User E-sign Co-sign Detail Recorded Client Recorded Date Recorded By Document 08/10/25 05:51 [facility] [id number] 08/10/25 05:56 [facility] 08/10/25 05:51 NIH Stroke Scale [NIHSS] A score of 0 is normal or asymptomatic . Total possible score is 42. Inpatient: RN or Physician to activate a stroke alert for onset of new stroke symptoms or with NIHSS increase >/= 3 points. Following change in neurological status, NIHSS will be performed per physician order or more frequently PRN. -1a. Level of Consciousness 0 - Alert; keenly responsive -1b. LOC Questions 0 - Answers BOTH questions correctly -1c. LOC Commands 0 - Performs BOTH tasks correctly -2. Best Gaze 0 - Normal -3. Visual 0 - No visual loss -4. Facial Palsy 0 - Normal symmetrical movements -5a. Left Arm 0 - No drift; arm holds 90 ( or 45) degrees for full 10 seconds -5b. Right Arm 0 - No drift; arm holds 90 ( or 45) degrees for full 10 seconds -6a. Left Leg 0 - No drift; leg holds 30- degree position for full 5 seconds -6b. Right Leg 0 - No drift; leg holds 30- degree position for full 5 seconds -7. Limb Ataxia 0 - Absent -8. Sensory 0 - Normal; no sensory loss -9. Best Language 0 - No aphasia; normal -10. Dysarthria 0 - Normal -11. Extinction and Inattention 0 - No abnormality -Total 0 Query Text:A score of 0 is normal or asymptomatic. Total possible score is 42 . ED: Notify Physician for NIHSS increase by > / = 3 points. Inpatient: RN or Physician to activate a stroke alert for NIHSS increase of > / = 3 points.
--- NOTE | 2025-08-10 15:09 | CASEMGMT ---
AMARJIT MEHTA NOTE: AMARJIT MEHTA to room. Pt sitting up in recliner chair. 2 sons @ bedside. Introduced self and role. Pt agreeable to sons being present during conversation w/AMARJIT MEHTA. [facility] form explained re: Observation status for treatment of hallucinations.? Explained hospitalization will be paid per?her insurance policy for Outpatient billing?and condition will continue to be evaluated for Inpt necessity. Also let pt know that [facility] sends paper in the billing packet with their phone number if questions arise. Discussed Pharmacy section of [employer] form and self administered medication guideline.? Pt verbalizes understanding and does not have further questions. ?Form signed, copy made and given to pt. PT/OT evals reviewed. Pt ambulated 5-6 ft w/SBA and had some lightheadedness. Additional therapy recommended. AMARJIT MEHTA discussed therapy and discharge planning. Pt wishes to discharge home w/son and denies wanting any OP therapy. She states she felt steady on her feet prior to lightheadedness and does not anticipate any issues w/ambulation once that resolves. She is indep w/ADL's @ baseline and is not homebound & aware of [facility]'s criteria of homebound for HHC. She states does not feel she will need or want that either. Made aware if she changes her mind once returning home to discuss this w/her PCP. She voices understanding. Pt voices no concerns w/discharging home once lightheadedness resolves. One of her sons will take her home. Sons deny having any questions or concerns as well. Plan: Home Donnie DUONG RN, CM ?
[2025-08-11 02:50] VITALS: BP 128/64; PULSE 56; RESP 16; TEMP 36.6; O2SAT 98
[2025-08-11 04:33] LABS: Hematocrit 42.1 % (37-47); Hemoglobin 13.8 g/dL (12.0-15.0); Immature Granulocytes Count 0.020 X10^3/uL (0.0-0.0); Mean Corp Hgb Conc 32.8 g/dL (32-36); Mean Corpuscular Volume 91.3 fL (81-99); Mean Platelet Vol. 12.4 fl (6.2-12.0); NRBC Flagged by Analyzer 0 % (0-5); Platelet Count 156 K/mm3 (150-450); RBC Distribution Width CV 13.2 % (11.6-14.6); RBC Distribution Width SD 43.9 fl (35.1-43.9); Red Blood Count 4.61 M/mm3 (4.2-5.4); White Blood Count 7.6 K/mm3 (4.4-11.0)
[2025-08-11 04:55] LABS: AST(SGOT) 15 U/L (<=31); Alanine Aminotransfer ALT/SGPT 6 U/L (<=34); Albumin, Serum 3.5 g/dL (3.4-4.8); Alkaline Phosphatase 65 U/L (35-104); Anion Gap 9 (5-15); BUN 16 mg/dL (4-19); BUN/Creat Ratio 18.8 RATIO (10-20); Calcium,Total 8.5 mg/dL (7.6-11.0); Carbon Dioxide 24.8 mmol/L (21.0-32.0); Chloride 108 mmol/L (98-108); Estimated Creatinine Clearance 41.14 ml/min (50-250); Globulin 2.2 g/dL (2.2-4.2); Glucose 99 mg/dL (70-99); Potassium 4.1 mmol/L (3.3-5.1)
--- NOTE | 2025-08-11 07:03 | CON.PCM.NE_ITS ---
Assessment and Plan: Neuro
--- NOTE | 2025-08-11 07:03 | NEURO.CONS ---
Assessment and Plan: Neuro Assessment/Plan JOANN MERRITT is a 85 F with a past medical history of UC, TIA, being evaluated by Teleneurology for transient hallucination and headache. Imaging largely benign but the L temporal lobe slightly more bright - unclear significance. Exam with functional overlay and pain in the R aspect of the neck consistent with cervicogenic pain. Recommend treating headache but unlikely that complex migraine would cause this well formed of a hallucination (usually it is scotomas or shapes, lights, colors etc). Given her immunocompromised state from UC treatment, would obtain LP to further evaluate. Plan - migraine cocktail: toradol 30mg IV, compazine 10 PO, benadryl 25mg PO - lidocaine patch to back of the neck - consider LP to eval for infections/inflammatory etiology and obtain the following labs: cell count, protein glucose, meningitis/encephalitis panel, culture, HSV, VZV, cytology I personally attended this patient and spent a total time of 45minutes evaluating this patient including clinical assessment, review of chart, medical history imaging, and determining appropriate treatment and workup. HPI Consult Data Date of Consult: 08/12/25 HPI Narrative HPI Narrative: JOANN MERRITT, is a 85 F who presents with hallucinations this is a 81 female with a past medical history presents from home with hallucinations. The hallucinations are the patient, who is 85 years old, seeing her father in the room. Symptoms persisted for a while so that led to the family the bring patient to the emergency room. And patient underwent a workup with a head CT, urinalysis, chest x-ray, COVID/influenza/RSV which were all negative. The plan was for the patient to go home but then she started hallucinating again seeing her father. The family was concerned and the hospital service was contacted. Patient has had hallucinations in the past but they have been rather nonspecific as another individual, not necessarily her father, being present in her room. Usually symptoms were very limited and many times associated with a urinary tract infection. Patient right now complains of a headache her vision being blurry. She does have chronic left lower extremity weakness that was felt to be due to a TIA. Also while patient was in the room she started having rigors where she was shaking the whole bed. Patient was since wrapped in blankets and is finally feeling warm. [ ] Neurologic history Endorses a MATTHEWS currently that started a couple hrs ago, normally does not have them. She also feels really warm. The headaches she is having at home have been more frequently - they have been more frequent, denies that it feel different. Along the top and forehead of her head, throbbing, sensitive to the light. No nausea. No vertigo but has lightheadedness Been on Stellara for a while (over a year), no diarrhea recently. Came to the hospital because of bad headaches and seeing things that were not there. She is aware of seeing her father on the side of her bed. No hallucinations since coming to the hospital. Never knew her father (he when she was 2 weeks old) so just imagined that it was his dad. Denies any fevers at home, no rashes Lives with daughter and son. STates she is under a lot of stress, and moved in with family a year ago. During the exam, she suddenly states the L leg is weak and has not been prior to this. Exam -? General: Laying comfortably in bed; in no acute distress. -? HENT: Normal oropharynx and mucosa. Normal external appearance of ears and nose. Exophthalmos. -? Neck: Supple, no pain or tenderness -? CV:? No peripheral edema. -? Pulmonary:? Normal respiratory effort. -? Ext: No cyanosis, edema, or deformity -? Skin: No rash. Normal palpation of skin.? -? Musculoskeletal: full range of motion; no joint tenderness. Normal digits and nails by inspection. No clubbing. -? NEURO: -? Mental Status: The patient was alert and oriented toplace, and person, poorly to time (did not know month or day). Normal recent/remote memory, concentration, and general fund of knowledge. -? Language: speech is clear.? Naming, repetition, fluency, and comprehension intact. -? Cranial Nerves: PERRL 3 mm/brisk. EOMI, visual fay full, no facial asymmetry, facial sensation intact, hearing intact, tongue midline Tender to palpation on the R cervical region -? Motor: normal bulk, tone, and strength throughout. No pronator drift or satelliting. UE antigravity b/l, LE will fall to the bed but on raising the L leg for her, the nurse notes she is pushing down on her hand R L SA 4 4 EE EF WE WF Patient Care Provider 5 5 HF KE KF DF PF -? Tone: is normal and bulk is normal -? Sensation- Intact to light touch bilaterally -? Coordination: No dysmetria on [id number], deferred on HTS as patient cannot seem to use. -? Gait- deferred [facility] Medical History Osteoarthritis Right anterior knee pain History of colon cancer Chronic anemia Ulcerative colitis C. difficile colitis Ulcerative colitis Severe malnutrition Cataract Arthritis Seasonal allergies History of colon cancer Home Medications ?Medication ?Instructions ?Recorded ?Last Taken ?Type ustekinumab 90 mg/mL subcutaneous 90 mg subcut Q8W 12 months #1 mL 06/26/24 02/04/25 Rx syringe (Stelara) acetaminophen 500 mg capsule 1,000 mg PO Q6H PRN fever or pain 02/17/25 02/15/25 History aspirin 81 mg chewable tablet 81 mg PO BREAKFAST 30 days #30 tabs 02/19/25 Unknown Rx hydroxyzine pamoate 25 mg capsule 50 mg (2 x 25 mg) PO TID PRN PRN 08/09/25 Unknown Rx Anxiety #8 CAPSULES Allergy/AdvReac Type Severity Reaction Status Date / Time Sulfa (Sulfonamide Allergy Rash Verified 02/17/25 10:40 Antibiotics) amoxicillin (From Augmentin) AdvReac Vomiting Verified 02/17/25 10:40 clavulanic acid (From AdvReac Vomiting Verified 02/17/25 10:40 Augmentin) fexofenadine (From Rose) AdvReac Other Verified 02/17/25 10:40 hydrocodone AdvReac out of it Verified 02/17/25 10:40 Family History Mother No problems noted. Grandmother Arthritis Grandfather Arthritis Other Heart disease Surgical History History of appendectomy History of cholecystectomy H/O breast biopsy Surgical history of tubal ligation S/P partial colectomy S/P cholecystectomy Social History household members: family housing: house Smoking Status: Never smoker alcohol intake: never substance use type: does not use what type of physical activity do you participate in: walking frequency: daily Vital Signs Vital Signs Vital Signs: 08/10/25 09:11 08/10/25 14:41 08/10/25 20:45 Temperature 97.8 F 97.7 F L Temperature Source Oral Oral Pulse Rate 59 L 57 L Respiratory Rate 16 16 Respiratory Effort Non-Labored Respiratory Depth Normal Respiratory Pattern Normal Blood Pressure 126/64 H 126/60 H Blood Pressure Mean 84 82 Blood Pressure Source Monitor Monitor Blood Pressure Position Semi-Fowlers Sitting Blood Pressure Location Right Arm Right Arm Pulse Ox 98 98 Oxygen Delivery Method Room Air Room Air Room Air 08/10/25 20:50 08/11/25 02:50 08/11/25 02:50 Temperature 97.9 F 97.9 F Temperature Source Oral Oral Pulse Rate 56 L 56 L Respiratory Rate 16 16 Respiratory Effort Non-Labored Respiratory Depth Normal Respiratory Pattern Normal Blood Pressure 132/64 H 128/64 H Blood Pressure Mean 86 85 Blood Pressure Source Monitor Monitor Blood Pressure Position Semi-Fowlers Semi-Fowlers Blood Pressure Location Right Arm Right Arm Pulse Ox 97 98 Oxygen Delivery Method Room Air Room Air Room Air Weight Weight: 52.889 kg Body Mass Index (BMI) 20.0 EEG Results Procedure Details EEG Procedure Details: JOANN MERRITT is a 85 year old F with a past medical history of , who presents for evaluation of Electroencephalogram on DATE at TIME Lab / Micro Data 08/11/25 03:12 08/11/25 03:12 Labs: Laboratory Results - last 24 hr 08/11/25 03:12: WBC 7.6, RBC 4.61, Hgb 13.8, Hct 42.1, MCV 91.3, MCH 29.9, MCHC 32.8, RDW Std Deviation 43.9, RDW Coeff of Rhonda 13.2, Plt Count 156, MPV 12.4 H, Immature Gran % (Auto) 0.300, Neut % (Auto) 56.1, Lymph % (Auto) 31.1, [place] % (Auto) 8.1, Eos % (Auto) 3.0, Baso % (Auto) 1.4 H, Absolute Neuts (auto) 4.3, Absolute Lymphs (auto) 2.37, Nucleated RBC % 0, Sodium 142, Potassium 4.1, Chloride 108, Carbon Dioxide 24.8, Anion Gap 9, BUN 16, Creatinine 0.85, Estim Creat Clear Calc 41.14 L, Est GFR (MDRD) Non-Af 68, BUN/Creatinine Ratio 18.8, Glucose 99, Calcium 8.5, Total Bilirubin 0.51, AST 15, ALT 6, Alkaline Phosphatase 65, Total Protein 5.7 L, Albumin 3.5, Globulin 2.2, Albumin/Globulin Ratio 1.6 Micro: Microbiology 08/09/25 10:40 Urine, Clean Catch Urine Culture - Preliminary Mixed Gram Positive Organisms Imaging Radiology Impression Echocardiogram 08/09/25 15:46 Interpretation Summary The left ventricular ejection fraction is 65 %. Normal LV size. Pulmonary artery systolic pressure is 30 mmHg. Limited views were obtained. Ordering Physician: Toi Shen Referring Physician: Varinder Guadarrama Performed By: Yani Farah, CRISTI, RVT Active Medications Active Medications Active Medications: Current Medications Generic Name Dose Route Start Last Admin Trade Name Freq PRN Reason Stop Dose Admin Acetaminophen 1,000 mg 08/09/25 15:46 Acetaminophen 500 Mg Tablet PO Q6H PRN fever or pain Aspirin 81 mg 08/10/25 08:00 08/10/25 09:17 Aspirin 81 Mg Tab.Chew PO 81 mg BREAKFAST ROBERTO Administration Ibuprofen 600 mg 08/09/25 15:46 Ibuprofen 600 Mg Tablet PO Q6H PRN PRN Pain Score 1-10 Sodium Chloride 10 - 40 ml 08/09/25 15:49 0.9% Saline Lock 10 Ml Syringe IV UD PRN SALINE FLUSH NIHSS NIHSS Nursing Documentation NIHSS Nursing Documentation: NIHSS: Ischemic Stroke/TIA Start: 08/09/25 15:46 Text: For PCU Patients: NIH and Neuro Check every 4 Status: Complete hours, PRN and with change in RN caregiver. Freq: [id number] Protocol: Activity Type Activity Date Activity User E-sign Co-sign Detail Recorded Client Recorded Date Recorded By Document 08/10/25 05:51 [facility] [id number] 08/10/25 05:56 [facility] 08/10/25 05:51 NIH Stroke Scale [NIHSS] A score of 0 is normal or asymptomatic . Total possible score is 42. Inpatient: RN or Physician to activate a stroke alert for onset of new stroke symptoms or with NIHSS increase >/= 3 points. Following change in neurological status, NIHSS will be performed per physician order or more frequently PRN. -1a. Level of Consciousness 0 - Alert; keenly responsive -1b. LOC Questions 0 - Answers BOTH questions correctly -1c. LOC Commands 0 - Performs BOTH tasks correctly -2. Best Gaze 0 - Normal -3. Visual 0 - No visual loss -4. Facial Palsy 0 - Normal symmetrical movements -5a. Left Arm 0 - No drift; arm holds 90 ( or 45) degrees for full 10 seconds -5b. Right Arm 0 - No drift; arm holds 90 ( or 45) degrees for full 10 seconds -6a. Left Leg 0 - No drift; leg holds 30- degree position for full 5 seconds -6b. Right Leg 0 - No drift; leg holds 30- degree position for full 5 seconds -7. Limb Ataxia 0 - Absent -8. Sensory 0 - Normal; no sensory loss -9. Best Language 0 - No aphasia; normal -10. Dysarthria 0 - Normal -11. Extinction and Inattention 0 - No abnormality -Total 0 Query Text:A score of 0 is normal or asymptomatic. Total possible score is 42 . ED: Notify Physician for NIHSS increase by > / = 3 points. Inpatient: RN or Physician to activate a stroke alert for NIHSS increase of > / = 3 points.
[2025-08-11 08:50] VITALS: BP 144/63; PULSE 61; RESP 16; TEMP 37.6; O2SAT 96
[2025-08-11 14:50] VITALS: BP 133/71; PULSE 56; RESP 16; TEMP 36.9; O2SAT 96
--- NOTE | 2025-08-11 15:15 | PCM.PN.HOSP ---
Subjective Subjective Doing well, no issues overnight. She is little bit flat today because she feels like she is a burden, I reassured her that she is not Objective Data Objective Data Vital Signs: Vital Signs Temp Pulse Resp BP Pulse Ox O2 Del Method 99.6 F H 61 16 144/63 H 96 Room Air 08/11/25 08:50 08/11/25 08:50 08/11/25 08:50 08/11/25 08:50 08/11/25 08:50 08/11/25 09:03 Oxygen Delivery Method Room Air Weight: 116 lb 9.6 oz Body Mass Index (BMI) 20.0 Intake & Output: Intake and Output for Last 24 Hours 08/10/25 08/11/25 08/12/25 03:59 02:59 03:59 Intake Total 1240 / 1240 Balance 1240 / 1240 Lab / Micro Data 08/11/25 03:12 08/11/25 03:12 Labs: Laboratory Results - last 24 hr 08/11/25 03:12: WBC 7.6, RBC 4.61, Hgb 13.8, Hct 42.1, MCV 91.3, MCH 29.9, MCHC 32.8, RDW Std Deviation 43.9, RDW Coeff of Rhonda 13.2, Plt Count 156, MPV 12.4 H, Immature Gran % (Auto) 0.300, Neut % (Auto) 56.1, Lymph % (Auto) 31.1, [place] % (Auto) 8.1, Eos % (Auto) 3.0, Baso % (Auto) 1.4 H, Absolute Neuts (auto) 4.3, Absolute Lymphs (auto) 2.37, Nucleated RBC % 0, Sodium 142, Potassium 4.1, Chloride 108, Carbon Dioxide 24.8, Anion Gap 9, BUN 16, Creatinine 0.85, Estim Creat Clear Calc 41.14 L, Est GFR (MDRD) Non-Af 68, BUN/Creatinine Ratio 18.8, Glucose 99, Calcium 8.5, Total Bilirubin 0.51, AST 15, ALT 6, Alkaline Phosphatase 65, Total Protein 5.7 L, Albumin 3.5, Globulin 2.2, Albumin/Globulin Ratio 1.6 Micro: Microbiology 08/09/25 10:40 Urine, Clean Catch Urine Culture - Final Mixed Gram Positive Organisms 08/09/25 17:48 Mucosa - Nasopharyngeal Respiratory Panel (PCR) - Final 08/09/25 10:37 Mucosa - Nose SARS-CoV-2, Influenza & RSV (PCR) - Final Physical Exam Narrative General: Alert, Oriented x3, Cooperative, No apparent distress HEENT: Atraumatic, PERRLA, EOMI, Normocephalic Oral: Moist Mucosa Neck: Supple, No JVD Lungs: Diminished, Normal air movement, No rhonchi, No wheeze, No rales Cardiovascular: Regular rate, Regular Rhythm, Normal S1, Normal S2, No murmurs Abdomen: Soft, Non Tender, Non-Distended, No Hepato-splenomegaly Extremities: No edema, Capillary Refill Less than 3 Seconds Skin: No rashes, No breakdown Musculoskeletal: No Tenderness to Palpation of Joints or Extremities Neurological: No focal neurological deficits, moves all extremities Psych/Mental Status: Flat Assessment & Plan Assessment/Plan (1) Hallucination, visual: (2) Lactic acidosis: PLAN: Plan 1. Hallucinations ? Unclear as to the etiology, she denies any drug use or new prescriptions ? MRI was unremarkable for stroke or any obvious neurological lesions ?Awaiting read of her EEG, neurology is recommending a possible LP ? No obvious signs of infection at this time we will continue to monitor ? Echo was normal with an EF of 65% and a PASP of 30 mmHg 2. Ulcerative colitis ? She is fairly well-controlled on her biologic medication ? Can resume on discharge 3. Anxiety ? Stable ? Continue with her home medications DVT: SCDs Charges/Coding Visit Charges Inpatient E&M: 39557 Subs Hosp L2 NIHSS NIHSS Nursing Documentation NIHSS Nursing Documentation: NIHSS: Ischemic Stroke/TIA Start: 08/09/25 15:46 Text: For PCU Patients: NIH and Neuro Check every 4 Status: Complete hours, PRN and with change in RN caregiver. Freq: [id number] Protocol: Activity Type Activity Date Activity User E-sign Co-sign Detail Recorded Client Recorded Date Recorded By Document 08/10/25 05:51 [facility] [id number] 08/10/25 05:56 [facility] 08/10/25 05:51 NIH Stroke Scale [NIHSS] A score of 0 is normal or asymptomatic . Total possible score is 42. Inpatient: RN or Physician to activate a stroke alert for onset of new stroke symptoms or with NIHSS increase >/= 3 points. Following change in neurological status, NIHSS will be performed per physician order or more frequently PRN. -1a. Level of Consciousness 0 - Alert; keenly responsive -1b. LOC Questions 0 - Answers BOTH questions correctly -1c. LOC Commands 0 - Performs BOTH tasks correctly -2. Best Gaze 0 - Normal -3. Visual 0 - No visual loss -4. Facial Palsy 0 - Normal symmetrical movements -5a. Left Arm 0 - No drift; arm holds 90 ( or 45) degrees for full 10 seconds -5b. Right Arm 0 - No drift; arm holds 90 ( or 45) degrees for full 10 seconds -6a. Left Leg 0 - No drift; leg holds 30- degree position for full 5 seconds -6b. Right Leg 0 - No drift; leg holds 30- degree position for full 5 seconds -7. Limb Ataxia 0 - Absent -8. Sensory 0 - Normal; no sensory loss -9. Best Language 0 - No aphasia; normal -10. Dysarthria 0 - Normal -11. Extinction and Inattention 0 - No abnormality -Total 0 Query Text:A score of 0 is normal or asymptomatic. Total possible score is 42 . ED: Notify Physician for NIHSS increase by > / = 3 points. Inpatient: RN or Physician to activate a stroke alert for NIHSS increase of > / = 3 points.
[2025-08-11 20:50] VITALS: BP 137/68; PULSE 67; RESP 16; TEMP 36.8; O2SAT 96
--- NOTE | 2025-08-12 | CYSPIN_PTH ---
PATIENT: JOANN MERRITT LOC: [facility]#:[id number] AGE/SX: 85/F ROOM: [facility] RE08/10/[address]: Dr. Malcolm Altamirano MD : 1940 BED: 1 DIS: 08/12/2025 SPEC #: [id number] RECD: 08/12/25 13:00 STATUS: CINTHYA REHosea #: [id number] NICOLETTE: 08/12/25 00:[address]: Malcolm Altamirano DEPT: CYTOLOGY RECD BY: Ancelmo Ross ENTERED: 08/12/25 14:17 SP TYPE: CYSPIN FL OTHR DR: MD Dr. Amanda Phipps, MD Ariana Kevin, MD Dr. Toi Shen, DO Edouard Coronel, MS Dr. Juan Ramon Kay, MD Colette Jacob, MD MG CANDELARIA, MD Bozena Chau, MD Dr. Mavis Giles, MD Jose Sharma, MD Zully Riddle, MD Varinder Phoenix, CONCRETE GRINDER OPERATOR-C Tissues: A - Cerebrospinal Fluid Procedures: Pap Stain (control) Special Stain Group II Cytospin Fluid HEADER OPERATION: Not noted PRE-OP DIAGNOSIS: Acidosis, visual hallucinations TISSUE SUBMITTED: A- Cerebrospinal fluid for cytology DIAGNOSIS CYTOLOGY A. Cerebrospinal fluid (cytospin): - No malignant cells identified. CYTOLOGY STUDY Slides are reviewed. CYTOLOGY GROSS A. Received is 3 ml of clear fluid labeled with the patient's name and and designated per the requisition as Cerebrospinal fluid. Submitted for cytology. 08/12/2025 CPT: 12499
[2025-08-12 03:05] VITALS: BP 125/71; PULSE 58; RESP 16; TEMP 36.5; O2SAT 95
[2025-08-12 09:05] VITALS: BP 125/64; PULSE 61; RESP 18; TEMP 36.2; O2SAT 96
--- NOTE | 2025-08-12 09:57 | CASEMGMT ---
Social Work Per imaging pt negative for stroke, therefore PHQ9 not completed. FRANKLIN Navarrete
--- NOTE | 2025-08-12 12:15 | RAD_ITS ---
PROCEDURE: RAD/Dx Lumbar Puncture w/IMG Guide
[2025-08-12 13:11] LABS: Cytology, Body Fluid / CSF SEE PATHOLOGY REPORT
--- NOTE | 2025-08-12 13:38 | DCINST_ITS ---
Discharge Instructions
--- NOTE | 2025-08-12 13:38 | PCM.DC ---
Discharge Instructions DC O2, CPAP, BIPAP needs Home O2 Discharge instructions: No Dressing / Incision Discharge Activity: Return to Normal Activity Dressing / Incision Call your doctor if you observe: Fever of 101 or Higher, Shortness of breath, Dizziness, Fainting spells, Swelling in the ankles, Chest pain and Increased palpitations (irregular heartbeat) Follow Up Care Test Results: Test results from this visit will be discussed in further detail at your follow-up appointment, if applicable. Discharge Plan Admission Admit Date/Time: 08/10/25 21:55 Attending Provider: Malcolm Altamirano Primary Care Provider: Varinder Phoenix Consulting Providers: Toi Shen; Deandra Blancas; Amanda Cullen; Ariana Kevin; Edouard Coronel; Juan Ramon Kay; Colette Jacob; MG CANDELARIA; Bozena Chau; Mavis Giles; Jose Sharma; Zully Riddle Instructions Patient Instructions: Delirium and Dementia, ED Confusion, ED Dehydration (Adult) Additional Instructions / Restrictions: Continue to increase fluids at home, Gatorade, Powerade, water. Continue taking home medications. Call Dr. Phoenix office today for a follow-up appointment on Tuesday or Tuesday. Their office has not seen you since October. I have spoken to Gabbie RIOS who agrees with discharge, will speak to Dr. Phoenix, and agrees with follow-up early next week. Discharge Orders/Prescriptions Prescriptions: New hydroxyzine pamoate 25 mg capsule 50 mg PO TID PRN PRN (Reason: Anxiety) Qty: 8 0RF Continued acetaminophen 500 mg capsule 1,000 mg PO Q6H PRN (Reason: fever or pain) aspirin 81 mg Tablet,Chewable 81 mg PO BREAKFAST 30 Days Qty: 30 3RF Stelara 90 mg/mL syringe 90 mg subcut Q8W 360 Days Qty: 1 6RF Rx Instructions: Inject one syringe SQ every 8 weeks starting 8 weeks after induction infusion. Referrals / Follow Up: Varinder Phoenix, STITCHER OPERATOR-C [Primary Care Provider, Family Practice] - Within 1 Week Disposition Disposition (needs filled in before D/C Order can be placed): Home, Self Care
[2025-08-12 14:00] VITALS: BP 125/64; PULSE 61; RESP 18; TEMP 36.2; O2SAT 96
[2025-08-12 14:06] LABS: Glucose Spinal Fluid 56 mg/dL (40-75); Protein Spinal Fluid 76.4 mg/dL (15.0-45.0)
[2025-08-12 14:13] LABS: Appearance CSF (character) CLEAR (Clear); CSF Color COLORLESS (Colorless); Tested Tube # 4
--- NOTE | 2025-08-12 14:16 | CASEMGMT ---
Patient has order for discharge. RN CM in to discuss needs at discharge. Patient denies needs or help at discharge. Patient had no further questions or concerns.
[2025-08-12 14:20] LABS: RBC Count, Spinal Fluid 0 /mm-3 (None seen); White Count, CSF 3 /mm-3 (0 - 5)
--- NOTE | 2025-08-12 14:24 | CHAPLAIN ---
Type of Pastoral Visit _x__ Initial Visit ___ Follow-up Visit ___ On-call Visit ___ General Patient Visit ___ Spiritual Assessment ___ Family Conference ___ Bereavement ___ Rapid Response ___ Code Blue ___ Other (describe below) Pastoral Care Referral From _x__ Patient ___ Family ___ Nurse ___ Physician ___ Foot Caster ___ Recenterer ___ Other (describe below) Sacrament/Intervention ___ Active listening ___ Anointing ___ Orthodox ___ Bereavement ___ Communion ___ Berna exploration ___ ___ Life review _x__ Prayer ___ Reconciliation ___ Sacrament of Sick _x__ Supportive presence ___ Wedding ___ Other (describe below) Pastoral Comments patient has been seen in previous admissions; pt again presents self with a low affect and pessimistic words; pt only opens her eyes and speaks softly; pt says she just had a procedure and is 'groggy' but I guess a little prayer couldn't hurt when asked about needs, concerns, and methods to help;
[2025-08-12 14:31] LABS: Body Fluid QC Type(s) BF1Q
--- NOTE | 2025-08-12 14:43 | PHA.DC_ITS ---
Pharmacy DC Med Rec Counseling
--- NOTE | 2025-08-12 14:43 | PHA.DC.MC.R ---
Pharmacy [facility] Counseling Pharmacy Service has performed discharge medication reconciliation and counseling for this patient. 1. HYDROXYZINE 50MG PO TID PRN ANXIETY The patient's discharge medication list was reviewed for discrepancies and discrepancies were resolved. The patient was counseled on the following discharge medications and changes in medications for homegoing were reviewed. The Reason for Use, instructions for use, and potential side effects were reviewed for all new medications. The patient's questions regarding all of their medications were answered. The patient was able to verbally demonstrate an understanding of their discharge medications. Medications at Discharge Home Medications ustekinumab 90 mg/mL subcutaneous syringe ([employer]) 90 mg subcut Q8W 12 months #1 mL 06/26/24 acetaminophen 500 mg capsule 1,000 mg PO Q6H PRN fever or pain 02/17/25 aspirin 81 mg chewable tablet 81 mg PO BREAKFAST 30 days #30 tabs 02/19/25 hydroxyzine pamoate 25 mg capsule 50 mg (2 x 25 mg) PO TID PRN PRN Anxiety #8 CAPSULES 08/09/25
--- NOTE | 2025-08-12 15:56 | PCM.DC.SUM ---
Providers Date of Admission: 08/10/25 Primary Care Physician: CYNDI HollisC Reason For Visit: HALLUCINATIONS. Diagnosis Discharge Diagnosis (1) Hallucination, visual: Status: Acute Code(s): R44.1 - Visual hallucinations (2) Lactic acidosis: Status: Acute Code(s): E87.20 - Acidosis, unspecified Medications at Discharge Home Medications ustekinumab 90 mg/mL subcutaneous syringe (Stelara) 90 mg subcut Q8W 12 months #1 mL 06/26/24 acetaminophen 500 mg capsule 1,000 mg PO Q6H PRN fever or pain 02/17/25 aspirin 81 mg chewable tablet 81 mg PO BREAKFAST 30 days #30 tabs 02/19/25 hydroxyzine pamoate 25 mg capsule 50 mg (2 x 25 mg) PO TID PRN PRN Anxiety #8 CAPSULES 08/09/25 Hospital Course Operations None Procedures 2-D Echocardiogram and Electroencephalogram Summary of Care Provided Minutes Spent on Discharge: 36 Hospital Course: Per HPI: JOANN MERRITT, is a 85 F who presents with hallucinations this is a 81 female with a past medical history presents from home with hallucinations. The hallucinations are the patient, who is 85 years old, seeing her father in the room. Symptoms persisted for a while so that led to the family the bring patient to the emergency room. And patient underwent a workup with a head CT, urinalysis, chest x-ray, COVID/influenza/RSV which were all negative. The plan was for the patient to go home but then she started hallucinating again seeing her father. The family was concerned and the hospital service was contacted. Patient has had hallucinations in the past but they have been rather nonspecific as another individual, not necessarily her father, being present in her room. Usually symptoms were very limited and many times associated with a urinary tract infection. Patient right now complains of a headache her vision being blurry. She does have chronic left lower extremity weakness that was felt to be due to a TIA. Also while patient was in the room she started having rigors where she was shaking the whole bed. Patient was since wrapped in blankets and is finally feeling warm. Hospital Course: 1. Hallucination/confusion?85-year-old female with presented to the hospital at the encouragement of her children secondary to hallucinations specifically seeing her father. She states that the hallucinations are significant in detail as she states that she sees him as clearly as she sees me at the foot of her bed. She does not appear to be overly distressed by this she denies any history of mental illness she denies any auditory hallucinations. Initially there was concern for infection however workup has been negative. MRI of her brain was unremarkable for any stroke or or masslike lesions. An EEG was obtained which was unremarkable. And she had an echocardiogram which was normal with an EF of 65% and a PASP of 30 mmHg. I discussed with her the results today, and discussed with her the recommendations by neurology to proceed with a lumbar puncture. We will send this off for studies but she does not want to stay in the hospital any longer than she absolutely has to and is requesting to be discharged today. She denies any hallucinations over the last 24 hours though she did have a little bit of a headache yesterday but nothing new today. I discussed with her the possibility for discharge and she expressed understanding of the risks and benefits of going home and would like to go home today. I discussed with her that her PCP should be able to evaluate the results of the LP in a few days time. She does not have any fevers or neck pain currently to indicate a meningitis or encephalitis on clinical exam. I did discuss the case with her granddaughter who is a local nurse practitioner about the findings of the elevated lymphocytes and protein in her CSF sample and she will be able to follow-up in the [facility] for results and we discussed indications to return to the hospital, not limited to worsening hallucinations, headaches, fevers, neck stiffness. 2. Ulcerative colitis, anxiety her chronic medical conditions which complicate her care. Her home medications were continued where appropriate Physical Exam Narrative General: Alert, Oriented x3, Cooperative, No apparent distress HEENT: Atraumatic, PERRLA, EOMI, Normocephalic Oral: Moist Mucosa Neck: Supple, No JVD, no pain with neck manipulation Lungs: Diminished, Normal air movement, No rhonchi, No wheeze, No rales Cardiovascular: Regular rate, Regular Rhythm, Normal S1, Normal S2, No murmurs Abdomen: Soft, Non Tender, Non-Distended, No Hepato-splenomegaly Extremities: No edema, Capillary Refill Less than 3 Seconds Skin: No rashes, No breakdown Musculoskeletal: No Tenderness to Palpation of Joints or Extremities Neurological: No focal neurological deficits, moves all extremities Psych/Mental Status: Flat Weight / BMI Weight Weight: 116 lb 9.6 oz Body Mass Index (BMI) 20.0 ABG / Lab / Microbiology Data 08/11/25 03:12 08/11/25 03:12 Laboratory: Laboratory Results - last 24 hr 08/12/25 12:36: CSF Appearance CLEAR, CSF Color COLORLESS, CSF WBC 3, CSF RBC 0, CSF Cell Count Tube # 4, CSF Total Cell Counted TNP, CSF Lymphocytes 100 H, CSF Comment Reviewed, CSF Glucose 56, CSF Total Protein 76.4 H Microbiology: Microbiology 08/12/25 12:36 Csf, Spinal Fluid Gram Stain - Final 08/09/25 10:40 Urine, Clean Catch Urine Culture - Final Mixed Gram Positive Organisms 08/09/25 17:48 Mucosa - Nasopharyngeal Respiratory Panel (PCR) - Final 08/09/25 10:37 Mucosa - Nose SARS-CoV-2, Influenza & RSV (PCR) - Final Radiography Diagnostic Testing: Radiology Impression Lumbar Puncture Fluoroscopy 08/12/25 12:15 IMPRESSION: Successful fluoroscopically guided lumbar puncture. Laboratory results pending. Reading Location: [place] [address] D/C Instructions Call your doctor if you observe: Fever of 101 or Higher, Shortness of breath, Dizziness, Fainting spells, Swelling in the ankles, Chest pain and Increased palpitations (irregular heartbeat) DC O2, CPAP, BIPAP Needs Home O2 Discharge instructions: No Meaningful Use Info Meaningful Use Meaningful Use Diagnoses (Choose all that apply): None applicable Discharge Plan Admission Admit Date/Time: 08/10/25 21:55 Attending Provider: Malcolm Altamirano Primary Care Provider: Varinder Phoenix [facility] Consulting Providers: Toi Shen; Deandra Blancas; Amanda Cullen; Ariana Kevin; Edouard Coronel; Juan Ramon Kay; Colette Jacob; MG CANDELARIA; Bozena Chau; Mavis Giles; Jose Sharma; Zully Riddle Instructions Patient Instructions: Delirium and Dementia, ED Confusion, ED Dehydration (Adult) Additional Instructions / Restrictions: Continue to increase fluids at home, Gatorade, Powerade, water. Continue taking home medications. Call Dr. Phoenix office today for a follow-up appointment on Tuesday or Tuesday. Their office has not seen you since October. I have spoken to Gabbie RIOS who agrees with discharge, will speak to Dr. Phoenix, and agrees with follow-up early next week. Discharge Orders/Prescriptions Prescriptions: New hydroxyzine pamoate 25 mg capsule 50 mg PO TID PRN PRN (Reason: Anxiety) Qty: 8 0RF Continued acetaminophen 500 mg capsule 1,000 mg PO Q6H PRN (Reason: fever or pain) aspirin 81 mg Tablet,Chewable 81 mg PO BREAKFAST 30 Days Qty: 30 3RF Stelara 90 mg/mL syringe 90 mg subcut Q8W 360 Days Qty: 1 6RF Rx Instructions: Inject one syringe SQ every 8 weeks starting 8 weeks after induction infusion. Referrals / Follow Up: Dinh Dubose MD [Non-Staff -Ordering Privileges, Neurology] - Within 1 Month Varinder Phoenix [facility] [Primary Care Provider, Family Practice] - 08/19/25 10:15 am Referral Note: Appointment is with JULIEN Cruz Disposition Disposition (needs filled in before D/C Order can be placed): Home, Self Care Charges/Coding Visit Charges Inpatient E&M: 48470 Disch Hosp >30min
== END 2025-08-12 16:48 | disposition home or self-care (01) | DRG 125 ==
LOC: ED 13:26 → PCU 13:52
PROVIDERS: Emergency Provider Emergency Medicine; PCP Nurse Practitioner Family; Visit Provider Family Medicine
DX: R44.1 Visual hallucinations (principal); D84.89 Other immunodeficiencies; E87.21 Acute metabolic acidosis; K51.00 Ulcerative (chronic) pancolitis without complications; D64.9 Anemia, unspecified; F41.9 Anxiety disorder, unspecified; M54.2 Cervicalgia; R41.0 Disorientation, unspecified; Z79.82 Long term (current) use of aspirin; Z79.899 Other long term (current) drug therapy
CPT/HCPCS: 36415; 62328; 70450; 70551; 71045; 80053; 80061; 81001; 82945; 82962; 83605; 83690; 83880; 84157; 84484; 85025; 85610; 85652; 86140; 87070; 87086; 87088; 87205; 87529; 87631; 87633; 88108; 88313; 89050; 89051; 93005; 93308; 94762; 95819; 97116; 97162; 97165; 97530; 97535; 97802; 99285; J2405

== ENCOUNTER → 2025-08-19 | Outpatient (CLI) | payer MEDICARE, OTHER, SELFPAY ==
[2025-08-19 17:19] LABS: Hematocrit 47.1 % (37-47); Hemoglobin 15.3 g/dL (12.0-15.0); Immature Granulocytes Count 0.020 X10^3/uL (0.0-0.0); Mean Corp Hgb Conc 32.5 g/dL (32-36); Mean Corpuscular Volume 92.0 fL (81-99); Mean Platelet Vol. 12.8 fl (6.2-12.0); NRBC Flagged by Analyzer 0 % (0-5); Platelet Count 194 K/mm3 (150-450); RBC Distribution Width CV 13.1 % (11.6-14.6); RBC Distribution Width SD 44.0 fl (35.1-43.9); Red Blood Count 5.12 M/mm3 (4.2-5.4); White Blood Count 8.7 K/mm3 (4.4-11.0)
[2025-08-19 18:00] LABS: AST(SGOT) 19 U/L (<=31); Alanine Aminotransfer ALT/SGPT 8 U/L (<=34); Albumin, Serum 4.1 g/dL (3.4-4.8); Alkaline Phosphatase 75 U/L (35-104); Anion Gap 13 (5-15); BUN 17 mg/dL (4-19); BUN/Creat Ratio 20.4 RATIO (10-20); Calcium,Total 9.4 mg/dL (7.6-11.0); Carbon Dioxide 22.8 mmol/L (21.0-32.0); Chloride 106 mmol/L (98-108); Globulin 2.3 g/dL (2.2-4.2); Glucose 98 mg/dL (70-99); Potassium 3.9 mmol/L (3.3-5.1); Vitamin B12 282 pg/mL (180-914); Vitamin D,25 Hydroxy 11.5 ng/mL (30-100)
== END | disposition home or self-care (01) ==
LOC: VSLAB 14:37
PROVIDERS: PCP Nurse Practitioner Family
DX: R54 Age-related physical debility (principal); R44.1 Visual hallucinations
CPT/HCPCS: 36415; 80053; 82306; 82607; 84443; 85025

== ENCOUNTER 2025-08-21 09:50 | Inpatient (IN) | payer MEDICARE, OTHER, SELFPAY ==
[2025-08-21] VITALS (7 sets, daily range): BP systolic 135–157; BP diastolic 60–83; PULSE 51–64; RESP 10–18; TEMP 36.5–36.6; O2SAT 97–100; BMI 19.8
--- NOTE | 2025-08-21 10:33 | CT_ITS ---
PROCEDURE: BRAIN/HEAD WITHOUT CONTRAST 08/21/2025 REASON FOR EXAM: AMS TECHNIQUE: Procedure Code: CTBR Modality: CT Procedure: BRAIN/HEAD WITHOUT CONTRAST Coronal and Sagittal reconstruction series were provided. One or more dose reduction techniques were used (e.g., Automated exposure control, adjustment of the mA and/or kV according to patient size, use of iterative reconstruction technique. RADIATION DOSE SUMMARY: CTDlvol: 44.99 mGy DLP: 779.24 mGycm COMPARISON: August 09, 2025. FINDINGS: Brain: Within normal limits for age CSF Spaces: Mild generalized cerebral atrophy Sinuses/Mastoids: Clear at visualized levels Bones: Unremarkable CT/Brain/Head without Contrast IMPRESSION: CHRONIC CHANGES. NO ACUTE FINDINGS. Reading Location: [place] [address]
--- NOTE | 2025-08-21 10:34 | EX.ED.DYSGE1 ---
HPI History of Present Illness Chief Complaint: Weakness Narrative Narrative: Patient is a 85-year-old female with past medical history of anemia, ulcerative colitis who presents to the emergency department with a chief complaint of altered mental status and weakness. According to the family at bedside he notes that the patient had a similar episode of this last week was brought here had a full workup and was ultimately sent home. He states that she woke up this morning again and was confused and appeared to be weak. Patient has no other complaints. PFSH PFS Medical History Non-smoker Osteoarthritis Right anterior knee pain History of colon cancer Chronic anemia Ulcerative colitis C. difficile colitis Ulcerative colitis Severe malnutrition Cataract Arthritis Seasonal allergies History of colon cancer Home Medications Medication Instructions Recorded Last Taken Type ustekinumab 90 mg/mL subcutaneous 90 mg subcut Q8W 12 months #1 mL 06/26/24 02/04/25 Rx syringe (Stelara) aspirin 81 mg chewable tablet 81 mg PO BREAKFAST 30 days #30 tabs 02/19/25 Unknown Rx Allergy/AdvReac Type Severity Reaction Status Date / Time Sulfa (Sulfonamide Allergy Rash Verified 08/21/25 09:58 Antibiotics) amoxicillin (From Augmentin) AdvReac Vomiting Verified 08/21/25 09:58 clavulanic acid (From AdvReac Vomiting Verified 08/21/25 09:58 Augmentin) fexofenadine (From Rose) AdvReac Other Verified 08/21/25 09:58 hydrocodone AdvReac "out of it" Verified 08/21/25 09:58 Family History Mother No problems noted. Grandmother Arthritis Grandfather Arthritis Other Heart disease Surgical History History of appendectomy History of cholecystectomy H/O breast biopsy Surgical history of tubal ligation S/P partial colectomy S/P cholecystectomy Social History household members: family housing: house Smoking Status: Never smoker alcohol intake: never substance use type: does not use what type of physical activity do you participate in: walking frequency: daily ROS ROS ED ROS Narrative Constitutional: Denies any fevers, chills, headaches Eyes: Denies double vision blurry vision Cardiovascular: Denies chest pain Respiratory: Denies coughing wheezing shortness of breath Abdomen: Denies abdominal pain nausea vomit diarrhea : Denies urinary symptoms Neurological: Denies any numbness, weakness, tingling Musculoskeletal: Denies back pain Skin: Denies any rashes or lesions EXAM Physical Exam Narrative Exam Narrative: General: Patient is lying in bed rest comfortably do not appear to be in acute distress Head: Atraumatic, normocephalic Eyes: PERRL bilaterally, EOMI bilaterally, no conjunctival injection noted Neck: Soft, supple, trachea midline Cardiovascular: Patient bradycardic with a regular rhythm Respiratory: Clear to auscultation bilaterally Abdomen: No tenderness to palpation, soft, nondistended Extremities: +5/5 strength noted in the bilateral lower extremity Neurological: Patient following commands knew that she was at [facility] year is 25 NIH is 0 GCS 15 Skin: Warm, dry, tact no rashes or lesions noted Const Vital Signs: 08/21/25 09:54 08/21/25 12:00 08/21/25 13:03 Temperature 97.8 F 97.7 F L Temperature Source Oral Pulse Rate 55 L 51 L 56 L Respiratory Rate 18 10 L 13 Blood Pressure 135/60 H 157/83 H 152/61 H Blood Pressure Mean 85 107 91 Pulse Ox 100 98 Oxygen Delivery Method Room Air 08/21/25 14:00 Temperature Temperature Source Pulse Rate 55 L Respiratory Rate 18 Blood Pressure Blood Pressure Mean Pulse Ox 97 Oxygen Delivery Method MDM MDM MDM Narrative Medical decision making narrative: Patient is 85-year-old female who presents to the emergency department with concern for altered mental status and weakness. On the differential diagnose includes but not limited to intracranial mass, electrolyte abnormality, UTI. Once workup is obtained and reviewed she will be reevaluated. Patient CBC reviewed and showed a white blood count is normal at 7, he was 14.5, platelet count was 9173. Patient sodium was noted 143, potassium 4.9, creatinine 0.89. Patient's AST and ALT were normal at 18 and 7 respectively her TSH normal at 0.89, T4 and T3 normal at 1.10 and 2.9 respectively urinalysis reviewed showed no evidence of infection. Patient CT head and brain without contrast reviewed showed chronic changes no acute findings. On reevaluation the patient nurse staff notified me that she is extremely weak and son at bedside is also stating that therefore will discuss case with hospitalist for admission for likely PT OT evaluation placement. Discussed the case with hospitalist who is recommending also consult to social work which was placed. Social work evaluated the patient and does not feel that this is a psychiatric issue. Patient was a two-person assist and almost fell with 2 people helping her. I reach back out to the hospitalist Dr. Fulton who will except patient for admission for PT OT evaluation and placement. Patient was given a dose of vitamin D as family members were concerned about this Lab Data Labs: Laboratory Results - last 24 hr 08/21/25 08/21/25 10:20 10:58 WBC 7.0 RBC 4.85 Hgb 14.5 Hct 44.9 MCV 92.6 MCH 29.9 MCHC 32.3 RDW Std Deviation 44.8 H RDW Coeff of Rhonda 13.1 Plt Count 173 MPV 12.7 H Immature Gran % (Auto) 0.300 Neut % (Auto) 63.7 Lymph % (Auto) 26.6 [place] % (Auto) 7.0 Eos % (Auto) 0.7 Baso % (Auto) 1.7 H Absolute Neuts (auto) 4.4 Absolute Lymphs (auto) 1.86 Nucleated RBC % 0 Sodium 143 Potassium 4.9 Chloride 109 H Carbon Dioxide 26.1 Anion Gap 8 BUN 15 Creatinine 0.89 Estim Creat Clear Calc 39.22 L Est GFR (MDRD) Non-Af 64 BUN/Creatinine Ratio 16.6 Glucose 97 Calcium 9.0 Total Bilirubin 0.50 AST 18 ALT 7 Alkaline Phosphatase 66 Total Protein 6.3 Albumin 3.9 Globulin 2.4 Albumin/Globulin Ratio 1.6 TSH 0.892 Free T4 1.10 Free T3 pg/dL 2.9 Urine Color Yellow Urine Clarity Clear Urine pH 7.0 Ur Specific [place] 1.010 Urine Protein Negative Urine Glucose (UA) Normal Urine Ketones Negative Urine Occult Blood 10 H Urine Nitrite Negative Urine Bilirubin Negative Urine Urobilinogen Normal Ur Leukocyte Esterase Negative Urine RBC 0 SEEN Urine WBC 0-5 SEEN Ur Squamous Epith Cells 0-5 SEEN Urine Bacteria 0 SEEN Urine Mucus 0 SEEN Radiography Diagnostic Testing: Clinical Impression(s) from Imaging Studies Brain CT 08/21/25 10:33 IMPRESSION: CHRONIC CHANGES. NO ACUTE FINDINGS. Reading Location: [facility] Discharge Plan Dx/Rx/DC Orders Clinical Impression: Generalized weakness, Altered mental status Disposition Disposition: [facility] D/C Safety Score for UGIB Assessment [place] Bleeding Score (GBS): Stratifies upper GI bleeding patients who are "low-risk" and candidates for outpatient management. Hemoglobin, BUN, Recent Vital Signs: Hgb 14.5 g/dL (12.0-15.0) 08/21/25 10:20 BUN 15 mg/dL (4-19) 08/21/25 10:20 Pulse Rate 55 Blood Pressure 152/61 Total Risk Score: 2 Score Interpretation: Score of 0: A GBS of 0 is a “Low Risk” GI bleed, and is highly sensitive (99.6% in a 2006 retrospective study) for predicting which patients did not require any “medical intervention”: blood transfusion, endoscopy, or surgery. This was confirmed in a [address] [facility] study where patients with a score of 0 were actually discharged and had no GI bleeding mortality at 6 month followup Score above 0: A GBS greater than zero suggests a “High Risk” GI bleed that is likely to require “medical intervention”: transfusion, endoscopy, or surgery. A higher GBS also correlated with a higher likelihood of needing intervention Scores >/= 6 are associated with >50% risk of needing intervention D/C Safety Score for LGIB Assessment Assessment Tool: Readmission and adverse event risk in patients with acute lower GI bleeding. Age, in years: >/= 70 Hemoglobin and Recent Vital Signs: Hgb 14.5 g/dL (12.0-15.0) 08/21/25 10:20 Pulse Rate 55 08/21/25 14:00 Blood Pressure 152/61 08/21/25 13:03 Probability of safe discharge: 99% Total Risk Score: 2 Score Interpretation: Probability Percentage of safe discharge (absence of rebleeding, blood transfusion, therapeutic intervention, 28 day readmission, or ) Score of 8 or below: Consider discharge, with appropriate precautions. Score of 9 or above: Discharge NOT recommended. Consider admission with further workup and resuscitation as necessary.
[2025-08-21] MEDS: 0.9% Normal Saline (1000mL) 1,000 ML 999 ML IV (10:51)
[2025-08-21 10:55] LABS: Hematocrit 44.9 % (37-47); Hemoglobin 14.5 g/dL (12.0-15.0); Immature Granulocytes Count 0.020 X10^3/uL (0.0-0.0); Mean Corp Hgb Conc 32.3 g/dL (32-36); Mean Corpuscular Volume 92.6 fL (81-99); Mean Platelet Vol. 12.7 fl (6.2-12.0); NRBC Flagged by Analyzer 0 % (0-5); Platelet Count 173 K/mm3 (150-450); RBC Distribution Width CV 13.1 % (11.6-14.6); RBC Distribution Width SD 44.8 fl (35.1-43.9); Red Blood Count 4.85 M/mm3 (4.2-5.4); White Blood Count 7.0 K/mm3 (4.4-11.0)
[2025-08-21 11:02] LABS: Mucous, Urine 0 SEEN /hpf (<or=2+); Red Blood Cells-Urine 0 SEEN /hpf (0-5)
[2025-08-21 11:03] LABS: Color, Urine Yellow (Yellow); Glucose, Dipstick Normal (Normal); Ketone-Dipstick Negative (Negative); Leukocyte Esterase-Dipstick Negative /ul (Negative); Nitrite-Dipstick Negative (Negative); Occult Blood-Urine 10 /ul (Negative); Protein-Dipstick Negative (Negative); Specific Gravity, Urine 1.010 (1.002-1.030); Urine Bilirubin Dipstick Negative (Negative)
[2025-08-21 11:09] LABS: Squamous Epithelial Cells - UA 0-5 SEEN /hpf (5-10)
[2025-08-21 11:27] LABS: Free T3 2.9 pg/mL (2.18-3.98)
[2025-08-21 11:28] LABS: AST(SGOT) 18 U/L (<=31); Alanine Aminotransfer ALT/SGPT 7 U/L (<=34); Albumin, Serum 3.9 g/dL (3.4-4.8); Alkaline Phosphatase 66 U/L (35-104); Anion Gap 8 (5-15); BUN 15 mg/dL (4-19); BUN/Creat Ratio 16.6 RATIO (10-20); Calcium,Total 9.0 mg/dL (7.6-11.0); Carbon Dioxide 26.1 mmol/L (21.0-32.0); Chloride 109 mmol/L (98-108); Estimated Creatinine Clearance 39.22 ml/min (50-250); Globulin 2.4 g/dL (2.2-4.2); Glucose 97 mg/dL (70-99); Potassium 4.9 mmol/L (3.3-5.1)
--- NOTE | 2025-08-21 12:49 | PCM.HOSP.N ---
Hospitalist Note I was called that patient is generalized weak and hallucination. On further history taking from the patient's alert son near the bedside. She is hallucinating, does not have motivation to move or walk. Does not follow command all instructions. I feel like this was similar pattern during last admission as mentioned in discharge summary on 08/12. She has dreams of the father in the room therefore I feel like she has a psychotic symptoms or psychosis which may be part of dementia. She denies any acute symptoms of UTI including LUTS/burning micturition, URI, fever or abdominal pain. Her ulcerative colitis is in remission with Stelara. Discussed with ER physician and advised social services aide and may need psych placement.
[2025-08-21] MEDS: Ergocalciferol 1.25 MG (50, 000 UNIT) Capsule PO (13:24)
--- NOTE | 2025-08-21 13:34 | ED.RN ---
This RN attempted to ambulate pt. Pt states at baseline she ambulates independently, with lately need for use of a cane, most recently unable to ambulate even with use of cane. Pt was able to take 1 step and was unsteady, near fall with x1 assist. Pt assisted back to bed, notified.
--- NOTE | 2025-08-21 13:48 | CM.ED ---
Social Work SW met with patient and patients son, both consenting to visit. Patient states that she had been feeling well after she was discharged from [facility] last week, felt per her normal last night when she went to bed, however when she woke up this morning she did not feel well. Patient states that it is difficult to describe the feeling, but she feels "outside" of herself and weak. Patient states that she did see her father sitting on her bed. When asked how often that happens, patient states it has happened throughout her adult life, that sometimes she can go years and not see him. Patient reports that she does not remember her father as he passed when she was [age], so she is visualizing him from pictures. Patient denies any other concerns, stating her appetite and sleep have been normal, denies any suicidal or homicidal ideations, denies any changes in mood or demeanor, denies any increased anxiety or stressors. Son present in room and agrees with patients statements. Patient was able to correctly identify the day, month and president, did state it was 2023. Patient voices frustration over episodes of weakness, stating she knows she is getting older but wants to maintain her independence. Emotional support provided. Lurdes Galvez, PHARMACY SALES ASSISTANT, POACHER WRINGER OPERATOR
--- NOTE | 2025-08-21 15:54 | PCM.HP.STD ---
HPI - General General Date of Admission: 08/21/25 Date of Service: 08/21/25 Chief Complaint: Could not walk/ambulate. HPI Narrative JOANN MERRITT, is a 85 F came to ED with weakness and hallucination. Initially as per the patient she said she was generalized weakness but later on she said it is mainly her legs. She could not stand up or her legs could not hold her up. She is not able to walk. This happened in the morning after she woke up. Her both legs are equally weak with no lateralization sign of paresthesia, bladder involvement, bowel involvement, back pain or headache. No fever. She did not have any history of chronic back pain. Prior to that patient was admitted about a week ago for hallucination and seeing her father in the room. She also had a headache at that time with blurry vision. MRI brain showed no evidence of acute ischemia. Patient was read by neonatal social worker and found that she does not have acute psychosis although she has intermittent hallucination and sometimes confused. Patient is further admitted. FORMERLY [facility], [facility] Medical History Non-smoker Osteoarthritis Right anterior knee pain History of colon cancer Chronic anemia Ulcerative colitis C. difficile colitis Ulcerative colitis Severe malnutrition Cataract Arthritis Seasonal allergies History of colon cancer Home Medications Medication Instructions Recorded Last Taken Type ustekinumab 90 mg/mL subcutaneous 90 mg subcut Q8W 12 months #1 mL 06/26/24 02/04/25 Rx syringe (Stelara) aspirin 81 mg chewable tablet 81 mg PO BREAKFAST 30 days #30 tabs 02/19/25 Unknown Rx Allergy/AdvReac Type Severity Reaction Status Date / Time Sulfa (Sulfonamide Allergy Rash Verified 08/21/25 09:58 Antibiotics) amoxicillin (From Augmentin) AdvReac Vomiting Verified 08/21/25 09:58 clavulanic acid (From AdvReac Vomiting Verified 08/21/25 09:58 Augmentin) fexofenadine (From Rose) AdvReac Other Verified 08/21/25 09:58 hydrocodone AdvReac "out of it" Verified 08/21/25 09:58 Family History Mother No problems noted. Grandmother Arthritis Grandfather Arthritis Other Heart disease Surgical History History of appendectomy History of cholecystectomy H/O breast biopsy Surgical history of tubal ligation S/P partial colectomy S/P cholecystectomy Social History household members: family housing: house Smoking Status: Never smoker alcohol intake: never substance use type: does not use what type of physical activity do you participate in: walking frequency: daily ROS ROS Narrative Constitutional: Reports acute onset of fatigue and weakness. No fever. No flulike symptoms. HEENT: Reports systems reviewed and no addt'l complaints, except as documented Respiratory/Chest: No acute shortness of breath or respiratory distress or wheezing. CVS: No chest pain/pressure or tightness Gastrointestinal: Denies coffee ground emesis, hematemesis or vomiting. No abdominal pain. Genitourinary: Denies burning urination or new urinary tract symptoms Musculoskeletal: Denies acute joint pain or limited range of motion. No acute injury Spine: No back pain. No history of sciatica pain Neurologic: Denies seizure-like symptoms. skin: No ulcer. No rash Endocrinology: Reports systems reviewed and no addt'l complaints, except as documented Hematologic/Lymphatic: Reports systems reviewed and no addt'l complaints, except as documented Rest 14 ROS are negative except as mentioned in HPI Vital Signs Vital Signs Vital Signs: 08/21/25 09:54 08/21/25 12:00 08/21/25 13:03 Temperature 97.8 F 97.7 F L Temperature Source Oral Pulse Rate 55 L 51 L 56 L Respiratory Rate 18 10 L 13 Blood Pressure 135/60 H 157/83 H 152/61 H Blood Pressure Mean 85 107 91 Pulse Ox 100 98 Oxygen Delivery Method Room Air 08/21/25 14:00 Temperature Temperature Source Pulse Rate 55 L Respiratory Rate 18 Blood Pressure Blood Pressure Mean Pulse Ox 97 Oxygen Delivery Method Weight Weight: 116 lb 6.465 oz Body Mass Index (BMI) 20.0 Physical Exam Narrative General: Alert, Oriented x3, Cooperative. BMI 20.0 kg/m² HEENT: Atraumatic, PERRLA, EOMI, Normocephalic. Oral: No Gingival or Mucosal Lesions/ Ulcerations Neck: Supple, No JVD, Negative Carotid Bruits Chest wall/Lungs: Air entry diminished in bilateral lung bases. No crepitation/rhonchi Cardiovascular: Regular rate and rhythm, Normal S1,S2, systolic murmur. Abdomen: Bowel Sounds Present, Soft, Non Tender, Non-Distended : No dysuria. No renal angle tenderness. No suprapubic tenderness. Extremities: No edema, Capillary Refill Less than 3 Seconds Skin: No rashes, No breakdown Musculoskeletal: Muscle strength 4/5 at bilateral knees and hip joints. Bilateral legs drifting, but does not touch bed. No Tenderness to Palpation of Joints or Extremities Neurological: Cranial nerves II-XII grossly intact, DTR 2/4. No acute focal neurological deficit involving bladder, bowel, speech or dysphagia. No facial droop. Psych/Mental Status: Intermittent hallucination, sometimes confusion. Results Lab / Micro Data 08/21/25 10:20 08/21/25 10:20 Labs: Laboratory Results - last 24 hr 08/21/25 10:20: WBC 7.0, RBC 4.85, Hgb 14.5, Hct 44.9, MCV 92.6, MCH 29.9, MCHC 32.3, RDW Std Deviation 44.8 H, RDW Coeff of Rhonda 13.1, Plt Count 173, MPV 12.7 H, Immature Gran % (Auto) 0.300, Neut % (Auto) 63.7, Lymph % (Auto) 26.6, Mora % (Auto) 7.0, Eos % (Auto) 0.7, Baso % (Auto) 1.7 H, Absolute Neuts (auto) 4.4, Absolute Lymphs (auto) 1.86, Nucleated RBC % 0, Sodium 143, Potassium 4.9, Chloride 109 H, Carbon Dioxide 26.1, Anion Gap 8, BUN 15, Creatinine 0.89, Estim Creat Clear Calc 39.22 L, Est GFR (MDRD) Non-Af 64, BUN/Creatinine Ratio 16.6, Glucose 97, Calcium 9.0, Total Bilirubin 0.50, AST 18, ALT 7, Alkaline Phosphatase 66, Total Protein 6.3, Albumin 3.9, Globulin 2.4, Albumin/Globulin Ratio 1.6, TSH 0.892, Free T4 1.10, Free T3 pg/dL 2.9 08/21/25 10:58: Urine Color Yellow, Urine Clarity Clear, Urine pH 7.0, Ur Specific [place] 1.010, Urine Protein Negative, Urine Glucose (UA) Normal, Urine Ketones Negative, Urine Occult Blood 10 H, Urine Nitrite Negative, Urine Bilirubin Negative, Urine Urobilinogen Normal, Ur Leukocyte Esterase Negative, Urine RBC 0 SEEN, Urine WBC 0-5 SEEN, Ur Squamous Epith Cells 0-5 SEEN, Urine Bacteria 0 SEEN, Urine Mucus 0 SEEN Imaging Radiology Impression Brain CT 08/21/25 10:33 IMPRESSION: CHRONIC CHANGES. NO ACUTE FINDINGS. Reading Location: [facility] Assessment & Plan Assessment/Plan (1) Debility: (2) Osteoarthritis: (3) Generalized weakness: (4) Altered mental status: PLAN: Plan This 85-year-old female is being admitted for evaluation of inability to stand up or walk since morning of the day of admission. 1. Acute debility/impaired ADL due to bilateral lower leg musculoskeletal weakness/paraparesis, probably due to inflammatory or autoimmune with history of bilateral knees and hips degenerative arthritis: Exact etiology unclear but seems more musculoskeletal. She denies history of acute or chronic back pain and does not have a history of spinal disc herniation. On exam, does not seem focal lateralization sign like a stroke and she had MRI on 08/09 which ruled out acute intracranial abnormality or stroke. Patient is being admitted on [facility] floor. Discussed with orthopedic surgeon Dr. Carter. MRI brain and thoracic spine ordered for tomorrow a.m. CT head does not show acute intracranial abnormality. PT OT and CM consultation for SNF placement. 2. 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 During previous admission first week of August she also had hallucinations, sometimes blurry vision and workup for stroke was negative. She does not have fever, focal symptoms of URI, UTI, abdominal pain/acute GI symptoms or suspicion for infection. 3. Chronic ulcerative colitis in remission: She is on his Stelara as an outpatient. Does not have acute diarrhea or GI bleed or abdominal pain. 4. Chronic anemia: Currently H&H is 14.5/45%. CBC normal limit. She has history of colon cancer. 5. DVT prophylaxis moderate risk for enoxaparin 40 mg subcu daily. Living will/advanced directive/end of life care: Patient does have living will or advanced directive. Her both son including 1 son in ED is power of avionic technician for health. After discussion of benefits/risks procedures involved with full code, DNR CC arrest and DNR CC, the patient opted for DNR CC with no intubation Patient doesn't want artificial life support including intubation, tube feed, ventilator and/chest compression, central venous catheter, vasopressor and DC shock if needed Total time spent in [id number] encounter in discussion of advanced directive 17 minutes. Laboratory Results 08/21/25 10:20: WBC 7.0, RBC 4.85, Hgb 14.5, Hct 44.9, MCV 92.6, MCH 29.9, MCHC 32.3, RDW Std Deviation 44.8 H, RDW Coeff of Rhonda 13.1, Plt Count 173, MPV 12.7 H, Immature Gran % (Auto) 0.300, Neut % (Auto) 63.7, Lymph % (Auto) 26.6, Mora % (Auto) 7.0, Eos % (Auto) 0.7, Baso % (Auto) 1.7 H, Absolute Neuts (auto) 4.4, Absolute Lymphs (auto) 1.86, Nucleated RBC % 0, Sodium 143, Potassium 4.9, Chloride 109 H, Carbon Dioxide 26.1, Anion Gap 8, BUN 15, Creatinine 0.89, Estim Creat Clear Calc 39.22 L, Est GFR (MDRD) Non-Af 64, BUN/Creatinine Ratio 16.6, Glucose 97, Calcium 9.0, Total Bilirubin 0.50, AST 18, ALT 7, Alkaline Phosphatase 66, Total Protein 6.3, Albumin 3.9, Globulin 2.4, Albumin/Globulin Ratio 1.6, TSH 0.892, Free T4 1.10, Free T3 pg/dL 2.9 08/21/25 10:58: Urine Color Yellow, Urine Clarity Clear, Urine pH 7.0, Ur Specific [place] 1.010, Urine Protein Negative, Urine Glucose (UA) Normal, Urine Ketones Negative, Urine Occult Blood 10 H, Urine Nitrite Negative, Urine Bilirubin Negative, Urine Urobilinogen Normal, Ur Leukocyte Esterase Negative, Urine RBC 0 SEEN, Urine WBC 0-5 SEEN, Ur Squamous Epith Cells 0-5 SEEN, Urine Bacteria 0 SEEN, Urine Mucus 0 SEEN Charges/Coding Visit Charges Inpatient E&M: 46568 Init Hosp L3 Procedures Hospitalists Procedures: 24631 Advncd Care Plan 30 Min D/C Safety Score for UGIB Assessment Beau-Blatchford Bleeding Score (GBS): Stratifies upper GI bleeding patients who are "low-risk" and candidates for outpatient management. Hemoglobin, BUN, Recent Vital Signs: Hgb 14.5 g/dL (12.0-15.0) 08/21/25 10:20 BUN 15 mg/dL (4-19) 08/21/25 10:20 Pulse Rate 55 Blood Pressure 152/61 Score Interpretation: Score of 0: A GBS of 0 is a “Low Risk” GI bleed, and is highly sensitive (99.6% in a 2007 retrospective study) for predicting which patients did not require any “medical intervention”: blood transfusion, endoscopy, or surgery. This was confirmed in a 2009 [facility] study where patients with a score of 0 were actually discharged and had no GI bleeding mortality at 6 month followup Score above 0: A GBS greater than zero suggests a “High Risk” GI bleed that is likely to require “medical intervention”: transfusion, endoscopy, or surgery. A higher GBS also correlated with a higher likelihood of needing intervention Scores >/= 6 are associated with >50% risk of needing intervention D/C Safety Score for LGIB Assessment Assessment Tool: Readmission and adverse event risk in patients with acute lower GI bleeding. Hemoglobin and Recent Vital Signs: Hgb 14.5 g/dL (12.0-15.0) 08/21/25 10:20 Pulse Rate 55 08/21/25 14:00 Blood Pressure 152/61 08/21/25 13:03 Score Interpretation: Probability Percentage of safe discharge (absence of rebleeding, blood transfusion, therapeutic intervention, 28 day readmission, or ) Score of 8 or below: Consider discharge, with appropriate precautions. Score of 9 or above: Discharge NOT recommended. Consider admission with further workup and resuscitation as necessary.
[2025-08-21 17:14] LABS: Magnesium 2.4 mg/dL (1.5-2.2)
[2025-08-21 17:36] LABS: CPK Total, Creatine Kinase 43 U/L (24-195)
--- OUTSIDE RECORDS SUMMARY | 2025-08-21 19:28 | XMS RPT_ITS | CCD ---
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 Dio Webb Emergency Provider Dr. Chip Fulton Admit Provider 1([facility])[phone] Chip Fulton Attending Provider Dr. Chip Fulton Other Provider 1([facility])[phone] Jared Draper Attending Provider 1([facility])[phone] Dr. Cynthia Coon Referring Provider 1([facility])[phone] Salvatore Blevins Attending Provider Dr. Cynthia Coon Attending Provider Dr. Cynthia Coon Other Provider Dr. Jared Draper Referring Provider 1([facility])[phone] Lizett VICTORIA, MANUFACTURING ACCOUNTANT-C Varinder Referring Provider [phone] Hugh VICTORIA, MANUFACTURING ACCOUNTANT-C Ivis Cintron Attending Provider [phone] Dr. Blair Han Admit Provider Dr. Blair Han Attending Provider Dr. Blair Han Other Provider Dr. Jared Draper Other Provider Dr. Toi Shen Attending Provider Dr. Toi Shen Other Provider Dr. Clifton Evans Attending Provider Unavailable Dr. Clifton Evans Other Provider Unavailable Dr. Clifton Evans Referring Provider Unavailable Lizett VICTORIA, MANUFACTURING ACCOUNTANT-C Varinder Attending Provider Dr. Toi Evans Emergency Provider Dr. Monique Lora Admit Provider Dr. Monique Lora Attending Provider Dr. Monique Lora Other Provider Dr. Tulio Champagne Other Provider Dr. Elier Ruelas Chi Admit Provider Dr. Elier Ruelas Chi Other Provider [place] MANUFACTURING ACCOUNTANT, MANUFACTURING ACCOUNTANT-C Varinder Primary Care Provider Dr. Salvatore Blevins Attending Provider Dr. Jared Draper Attending Provider Dr. Dio Webb Emergency Provider Dr. Cynthia Coon Referring Provider Dr. Cynthia Coon Other Provider Dr. Cynthia Coon Attending Provider [place] MANUFACTURING ACCOUNTANT, MANUFACTURING ACCOUNTANT-C Varinder Primary Care Provider [place] MANUFACTURING ACCOUNTANT, MANUFACTURING ACCOUNTANT-C Varinder Referring Provider [place] MANUFACTURING ACCOUNTANT, MANUFACTURING ACCOUNTANT-C Varinder Primary Care Provider [place] MANUFACTURING ACCOUNTANT, MANUFACTURING ACCOUNTANT-C Varinder Referring Provider Dr. Jared Draper Attending Provider [place] MANUFACTURING ACCOUNTANT, MANUFACTURING ACCOUNTANT-C Varinder Primary Care Provider [place] MANUFACTURING ACCOUNTANT, MANUFACTURING ACCOUNTANT-C Varinder Referring Provider Dr. Jared Draper Attending Provider [place] MANUFACTURING ACCOUNTANT, MANUFACTURING ACCOUNTANT-C Varinder Attending Provider [place] MANUFACTURING ACCOUNTANT, MANUFACTURING ACCOUNTANT-C Varinder Primary Care Provider Dr. Dio Webb Emergency Provider Dr. Uzair Davila Attending Provider Dr. Aba Arce Attending Provider Dr. Uzair Davila Admit Provider Dr. Uzair Davila Other Provider Dr. Sandy Paige Attending Provider Dr. Sandy Paige Other Provider Zo VICTORIA, Tayla Vincent Primary Care Provider [place] MANUFACTURING ACCOUNTANT-C, Varinder Primary Care Provider [place] MANUFACTURING ACCOUNTANT-C, Varinder Referring Provider Dr. Jared Draper DO Attending Provider Audelia MCCONNELL, Dr. Flaherty Emergency Provider Royal MCCONNELL, Dr. Delgado Admit Provider Royal MCCONNELL, Dr. Delgado Attending Provider Royal MCCONNELL, Dr. Delgado Referring Provider Royal MCCONNELL, Dr. Delgado Other Provider Audelia MCCONNELL, Dr. Flaherty Emergency Provider Royal MCCONNELL, Dr. Delgado Admit Provider Royal MCCONNELL, Dr. Delgado Referring Provider Donaldo MCCONNELL, Dr. Saunders Attending Provider Yazmin MCCONNELL, Dr. Troncoso Attending Provider Ramos Chambers MD Other Provider Unavailable Yonny MCCONNELL, Dr. Liriano Other Provider [phone] Tereso MCCONNELL, Iraida Other Provider Unavailable Dr. Noris Valencia DO Other Provider [phone] Amanda Cullen MD Other Provider [phone] Dr. Jamar Calvillo MD Other Provider [phone] Sylvester MCCONNELL, Dr. Fowler Other Provider Stephen MCCONNELL, Dr. Del Valle Other Provider [phone] Dr. Scott Nunez MD Other Provider Rahul MCCONNELL, Dr. Delatorre Other Provider Bozena Chau MD Other Provider Jackie MCCONNELL, Dr. James Other Provider Chan MCCONNELL, Dr. Gamble Other Provider Delia MCCONNELL, Dr. Fritz Other Provider Hannah MCCONNELL, Dr. Tammi Al Other Provider Roel MCCONNELL, Dr. Rasmussen Other Provider Tan MCCONNELL, Dr. Leal Other Provider Amber MCCONNELL, Dr. Angel Other Provider Shaggy MCCONNELL, Dr. Jennings Other Provider Unavailable Al MCCONNELL, Varsha Other Provider Unavailable Donaldo MCCONNELL, Dr. Saunders Other Provider SAHARA AMARAL Attending Unavailable TAYLA RENDON Primary Care Unavailable [place] [facility], Varinder Primary Care Unavailable Beam VSC, Zebulun Attending Unavailable Beam VSC, Zebulun Referring Unavailable [place] [facility], Varinder Primary Care Unavailable Donaldo, Chip Referring Unavailable Donaldo, Chip Attending Unavailable [place] [facility], Varinder Primary Care Unavailable [place] [facility], Varinder Referring Unavailable Jared Draper Attending Unavailable [place] [facility], Varinder Primary Care Unavailable Paige, Sandy Admitting Unavailable Paige, Sandy Referring Unavailable Paige, Sandy Consulting Unavailable Donaldo, Chip Attending Unavailable Donaldo, Chip Consulting Unavailable [place] [facility], Varinedr Primary Care Unavailable Paige, Sandy Referring Unavailable Paige, Sandy Attending Unavailable Paige, Sandy Consulting Unavailable Paige, Sandy Admitting Unavailable [place] [facility], Varinder Primary Care Unavailable Ac, Toi Attending Unavailable [place] [facility], Varinder Primary Care Unavailable Malcolm Altamirano Attending Unavailable Jopperi, Toi Consulting Unavailable Jopperi, Toi Admitting Unavailable Adeli, Amir Consulting Unavailable Subhash, Amanda Consulting Unavailable Juan Carlos Kevin Consulting Unavailable Edouard Coronel Consulting Unavailable Juan Ramon Kay Consulting Unavailable Colette Jacob Consulting Unavailable MG DELGADO Consulting Unavailable Bozena Chau Consulting Unavailable Mavis Giles Consulting Unavailable Jose Sharma Consulting Unavailable Zully Riddle Consulting Unavailable Malcolm Altamirano Consulting Unavailable [place] [facility], Varinder Primary Care Unavailable Jopperi, Toi Consulting Unavailable Jopperi, Tio Admitting Unavailable Malcolm Altamirano Attending Unavailable Adeli, Amir Consulting Unavailable Zha, Amanda Consulting Unavailable Herberth Juan Carlos Consulting Unavailable Anisha Coronele Consulting Unavailable Rahul Juan Ramon Consulting Unavailable Colette Jacob Consulting Unavailable SAL DELGADOBRON Consulting Unavailable Beliana, Bozena Consulting Unavailable Chan, Mavis Consulting Unavailable Jose Sharma Consulting Unavailable Zully Riddle Consulting Unavailable Malcolm Altamirano Consulting Unavailable Ramos Chambers Consulting Unavailable Adeli, Amir Consulting Unavailable Hindujohn paul Iraida Consulting Unavailable Erik Noris Consulting Unavailable Zha, Amanda Consulting Unavailable Jamar Calvillo Consulting Unavailable Janeth Phan Consulting Unavailable Eligio Mitchell Consulting Unavailable Scott Nunez Consulting Unavailable Rahul Juan Ramon Consulting Unavailable Beliana, Bozena Consulting Unavailable Jacob Mejia Consulting Unavailable Chan Mavis Consulting Unavailable Lam Lin Consulting Unavailable Tammi Young Consulting UnavailGrady Lyons Consulting Unavailable Elvis Maddox Consulting Unavailable Stanley Clark Consulting Unavailable Michaela Coon Consulting Unavailable Varsha Melendez Consulting Unavailable [place] [facility], Varinder Primary Care Unavailable Aba Arce Attending Unavailable Aba Arce Attending Unavailable [facility] [place] Primary Care Unavailable [place] [facility], [place] Primary Care Unavailable Arthur Armendariz Attending Unavailable Chip Fulton Referring Unavailable [place] [facility], Varinder Referring Unavailable [place] [facility], [place] Primary Care Unavailable Friend, Jared Attending Unavailable [place] [facility], Varinder Primary Care Unavailable Friend, Jared Attending Unavailable Friend, Jared Referring Unavailable [place] [facility], Varinder Primary Care Unavailable Gabriel Martin Attending Unavailable [place] [facility], Varinder Primary Care Unavailable Malcolm Altamirano Attending Unavailable Perripperi, Toi Consulting Unavailable Jopperi, Toi Admitting Unavailable Adeli, Amir Consulting Unavailable Zha, Amanda Consulting Unavailable Herberth Juan Carlos Consulting Unavailable Berna Edouard Consulting Unavailable Kay, Juan Ramon Consulting Unavailable John Paul Jacobysingh Consulting Unavailable SANDY, HOLLIDAY Consulting Unavailable Beigel, Bozena Consulting Unavailable Chan, Mavis Consulting Unavailable Jose Sharma Consulting Unavailable Zully Riddle Consulting Unavailable Lizett Varinder Oliveira Primary Care Unavailable Sandy Paige Referring Unavailable Sandy Paige Consulting Unavailable Chip Fulton Attending Unavailable Sandy Paige Admitting Unavailable Allergies Allergy Classification Reported Allergen(s) Allergy Type Date of Onset Reaction(s) Facility (14 sources) Amoxicillin Drug Allergy 2 Vomiting [facility] (14 sources) Clavulanate Drug Allergy 2 Vomiting [facility] (14 sources) fexofenadine Drug Allergy 2 Other [facility] (14 sources) HYDROcodone Drug Allergy 2 "out of it" [facility] (20 sources) Sulfonamides (Antibiotic); Translations: [SULFA (SULFONAMIDE ANTIBIOTICS)] Allergy to substance 5 Rash [facility] (1 source) Amoxicillin Drug Allergy 5 [facility] (1 source) Clavulanate Drug Allergy 5 [facility] (1 source) fexofenadine Drug Allergy 5 [facility] (1 source) HYDROcodone Drug Allergy 5 [facility] Repository Medications Current Medications Medication Drug Class(es) Dates Sig (Normalized) Sig (Original) acetaminophen 500 mg oral capsule (16 sources) Start: 02-17-2025 take 2 capsules by mouth every six hours as needed for pain Acetaminophen 500 mg capsule Active 1000 mg PO EVERY 6 HOURS as needed for fever or pain February 17, 2025 12:00am Start: 11-23-2021 End: 11-29-2021 take 1 tablet by mouth twice daily as needed for arthritis Acetaminophen 500 mg Tablet Discontinued 500 mg PO TWICE A DAY as needed for ARTHRITIS November 23, 2021 1:00am November 29, 2021 12:50pm apixaban 5 mg oral tablet (3 sources) Factor Xa Inhibitor Start: 04-01-2022 take 1 tablet by mouth twice daily Apixaban (Eliquis) 5 mg Tablet Active 5 MG PO TWICE A DAY 60 30 March 31, 2022 11:00pm aspirin 81 mg chewable tablet (3 sources) Platelet Aggregation Inhibitor, Nonsteroidal Anti-inflammatory Drug Start: 02-19-2025 take 1 tablet by mouth once daily at breakfast aspirin 81 mg chewable tablet Take 81 mg by mouth daily with breakfast. 02/19/2025 Active atorvastatin 40 mg oral tablet (3 sources) HMG-CoA Reductase Inhibitor Start: 02-19-2025 take 1 tablet by mouth once daily at bedtime atorvastatin (LIPITOR) 40 mg tablet Take 40 mg by mouth daily at bedtime. 02/19/2025 Active atropine sulfate 0.025 mg / diphenoxylate hydrochloride 2.5 mg oral tablet (1 source) Anticholinergic, Cholinergic Muscarinic Antagonist, Antidiarrheal Start: 02-13-2022 take 2 tablets by mouth twice daily as needed Diphenoxylate-Atro pine Active 2 TABLET PO TWICE DAILY NEEDED February 13, 2022 9:20am calcium polycarbophil 625 mg oral tablet (1 source) Start: 02-13-2022 Calcium Polycarbophil (Fiber (Calcium Polycarbophil)) 625 mg Tablet Active 1250 MG PO THREE TIMES A DAY 84 February 13, 2022 9:10am cholestyramine resin 4000 mg powder for oral suspension (1 source) Bile Acid Sequestrant Start: 02-13-2022 take 4 g by mouth once daily Cholestyramine (With Sugar) Active 4 GM PO DAILY@0700 14 February 13, 2022 9:10am dicyclomine hydrochloride 10 mg oral capsule (4 sources) Anticholinergic Start: 02-13-2022 take 10 mg by mouth three times daily before mealtime Dicyclomine Active 10 MG PO THREE TIMES DAILY BEFORE MEALS 30 February 13, 2022 9:20am Start: 02-03-2022 take 20 mg by mouth three times daily Dicyclomine Active 20 MG PO THREE TIMES A DAY February 03, 2022 11:18am Insulin Glargine-Yfgn (20 sources) Start: 04-01-2022 Insulin Glargi ne-Yfgn Active 10 UNIT SC DAILY 3 April 01, 2022 7:26pm Start: 04-01-2022 Insulin Glargi ne-Yfgn Active 10 UNIT SC DAILY 01 06April 01, 2022 8:26pm Start: 03-18-2022 End: 04-01-2022 Insulin Glargine-Yfgn 100 un it/mL (3 mL) insulin pen Discontinued 10 U SC DAILY March 18, 2022 5:05pm April 01, 2022 8:26pm Start: 03-18-2022 End: 04-01-2022 Insulin Glargine-Yfgn Discon tinued 10 UNIT SC DAILY March 18, 2022 4:05pm April 01, 2022 7:26pm Start: 03-18-2022 End: 04-01-2022 Insulin Glargine-Yfgn Discon tinued 10 UNIT SC DAILY March 18, 2022 5:05pm April 01, 2022 8:26pm Start: 03-18-2022 Insulin Glargi ne-Yfgn Active 10 UNIT SC DAILY March 18, 2022 5:05pm Start: 03-18-2022 End: 03-18-2022 Insulin Glargine-Yfgn Discon tinued 10 UNIT SC DAILY 0 March 18, 2022 12:29pm March 18, 2022 5:05pm Start: 03-18-2022 Insulin Glargi ne-Yfgn Active 10 UNIT SC DAILY 0 March 18, 2022 12:29pm Start: 03-18-2022 End: 03-18-2022 Insulin Glargine-Yfgn 100 un it/mL (3 mL) Insulin Pen Discontinued 10 U SC DAILY 0 March 18, 2022 12:00am March 18, 2022 5:05pm Start: 03-18-2022 End: 03-18-2022 Insulin Glargine-Yfgn Discon tinued 10 UNIT SC DAILY 0 March 17, 2022 11:00pm March 18, 2022 4:05pm Start: 03-18-2022 End: 03-18-2022 Insulin Glargine-Yfgn Discon tinued 10 UNIT SC DAILY 0 March 18, 2022 12:00am March 18, 2022 5:05pm 24 hr metoprolol succinate 25 mg extended release oral tablet (4 sources) beta-Adrenergic Fede Start: 02-23-2005 TOPROL XL 25 MG ORAL TB24 0 02/23/2005 Active nitrofurantoin, macrocrystals 25 mg / nitrofurantoin, monohydrate 75 mg oral capsule (2 sources) Nitrofuran Antibacterial Start: 02-19-2024 End: 02-24-2024 take 1 capsule by mouth twice daily nitrofurantoin monohydrate and macrocrystal (MACROBID) 100 mg capsule Indications: Urgency of urination Take 1 capsule by mouth two times a day for 5 days. 10 capsule 0 02/19/2024 02/24/2024 Active microencapsulated potassium chloride 20 meq extended release oral tablet (1 source) Start: 02-13-2022 Potassium Chloride (Klor-Con M20) 20 mEq Tablet,Er Particles/Crystals Active 20 MEQ PO TWICE DAILY WITH MEALS 60 February 13, 2022 9:10am predniSONE 20 mg oral tablet (4 sources) Start: 04-01-2022 take 60 mg by mouth at breakfast Prednisone Active 60 MG PO WITH BREAKFAST 90 March 31, 2022 11:00pm Start: 02-13-2022 take 40 mg by mouth once daily Prednisone Active 40 MG PO DAILY February 13, 2022 10:55am 1 ml ustekinumab 90 mg/ml prefilled syringe (16 sources) Interleukin-12 Antagonist, Interleukin-23 Antagonist Start: 06-08-2023 End: 06-26-2024 Ustekinumab (Stelara) 90 mg/mL syringe Active 90 mg SC every 8 weeks 1 360 June 26, 2024 7:32am Inject one syringe SQ every 8 weeks starting 8 weeks after induction infusion. Start: 04-29-2022 Ustekinumab (S telara) 90 mg/mL syringe Active 90 MG SC every 8 weeks 1 April 28, 2022 11:00pm Start: 03-19-2022 End: 04-01-2022 Ustekinumab (Stelara) 90 mg/ mL syringe Discontinued 90 mg SC every 8 weeks 1 360 March 19, 2022 12:00am April 01, 2022 8:24pm Inject one syringe SQ every 8 weeks starting 8 weeks after induction infusion. Completed/Discontinued Medications Medication Drug Class(es) Dates Sig (Normalized) Sig (Original) acetaminophen 325 mg / HYDROcodone bitartrate 5 mg oral tablet (5 sources) Opioid Agonist Start: 11-20-2022 End: 03-01-2023 Hydrocodone-Acetami nophen 5-325 mg tablet Discontinued 1 {tbl} PO EVERY 6 HOURS NEEDED as needed for Pain 26 02November 20, 2022 March 01, 2023 12:52pm Start: 11-20-2022 End: 03-01-2023 take 1 tablet by mouth every six hours as needed Hydrocodone-Acetaminophen Discontinued 1 TABLET PO EVERY 6 HOURS NEEDED 26 02November 20, 2022 March 01, 2023 11:52am azaTHIOprine 50 mg oral tablet (20 sources) Purine Antimetabolite Start: 11-28-2021 End: 02-13-2022 take 1 tablet by mouth once daily Azathioprine 50 mg tablet Discontinued 100 mg PO DAILY February 03, 2022 11:17pm February 13, 2022 9:21am Start: 11-28-2021 End: 02-13-2022 take 100 mg by mouth once daily Azathioprine Discontinued 100 MG PO DAILY February 03, 2022 10:17pm February 13, 2022 8:21am clopidogrel 75 mg oral tablet (2 sources) [id number] Platelet Inhibitor Start: 02-19-2025 End: 03-12-2025 take 1 tablet by mouth once daily clopidogrel (PLAVIX) 75 mg tablet Take 75 mg by mouth once daily. 02/19/2025 03/12/2025 Discontinued (Apartment Maintenance Supervisor Duplicate Med) colestipol hydrochloride 1000 mg oral tablet (20 sources) Bile Acid Sequestrant Start: 02-03-2022 End: 02-13-2022 Colestipol 1 gram tablet Discontinued 1 g PO TWICE A DAY February 03, 2022 11:17pm February 13, 2022 9:22am Start: 11-29-2021 End: 02-13-2022 Colestipol (Colestid) 1 gram tablet Discontinued 2 g PO DAILY February 03, 2022 11:17pm February 13, 2022 9:22am 0.4 ml enoxaparin sodium 100 mg/ml prefilled syringe (19 sources) Low Molecular Weight Heparin Start: 03-18-2022 End: 04-01-2022 Enoxaparin 40 mg/0.4 mL syringe Discontinued 40 mg SC DAILY March 18, 2022 5:05pm April 01, 2022 8:24pm Food Supplemt, Lactose-Reduced (Ensure Enlive) 0.08 gram-1.5 kcal/mL Liquid (10 sources) Start: 03-18-2022 End: 03-18-2022 take 1 mL by mouth four times daily Food Supplemt, Lactose-Reduced (Ensure Enlive) 0.08 gram-1.5 kcal/mL Liquid Discontinued 120 ML PO 4 TIMES DAILY 0 March 18, 2022 12:28pm March 18, 2022 5:05pm Start: 03-18-2022 take 1 mL by mouth f our times daily Food Supplemt, Lactose-Reduced (Ensure Enlive) 0.08 gram-1.5 kcal/mL Liquid Active 120 ML PO 4 TIMES DAILY 0 March 18, 2022 12:28pm Start: 03-18-2022 End: 03-18-2022 take 1 mL by mouth four times daily Food Supplemt, Lactose-Reduced (Ensure Enlive) 0.08 gram-1.5 kcal/mL Liquid Discontinued 120 mL PO 4 TIMES DAILY 0 March 18, 2022 12:00am March 18, 2022 5:05pm Start: 03-18-2022 End: 03-18-2022 take 1 mL by mouth four times daily Food Supplemt, Lactose-Reduced (Ensure Enlive) 0.08 gram-1.5 kcal/mL Liquid Discontinued 120 ML PO 4 TIMES DAILY 0 March 17, 2022 11:00pm March 18, 2022 4:05pm Start: 03-18-2022 End: 03-18-2022 take 1 mL by mouth four times daily Food Supplemt, Lactose-Reduced (Ensure Enlive) 0.08 gram-1.5 kcal/mL Liquid Discontinued 120 ML PO 4 TIMES DAILY 0 March 18, 2022 12:00am March 18, 2022 5:05pm Food Supplemt, Lactose-Reduced (Ensure Enlive) 0.08 gram-1.5 kcal/mL liquid (9 sources) Start: 03-18-2022 End: 04-01-2022 take 1 mL by mouth four times daily Food Supplemt, Lactose-Reduced (Ensure Enlive) 0.08 gram-1.5 kcal/mL liquid Discontinued 120 mL PO 4 TIMES DAILY March 18, 2022 5:05pm April 01, 2022 8:24pm Start: 03-18-2022 End: 04-01-2022 take 1 mL by mouth four times daily Food Supplemt, Lactose-Reduced (Ensure Enlive) 0.08 gram-1.5 kcal/mL liquid Discontinued 120 ML PO 4 TIMES DAILY March 18, 2022 4:05pm April 01, 2022 7:24pm Start: 03-18-2022 End: 04-01-2022 take 1 mL by mouth four times daily Food Supplemt, Lactose-Reduced (Ensure Enlive) 0.08 gram-1.5 kcal/mL liquid Discontinued 120 ML PO 4 TIMES DAILY March 18, 2022 5:05pm April 01, 2022 8:24pm Start: 03-18-2022 take 1 mL by mouth f our times daily Food Supplemt, Lactose-Reduced (Ensure Enlive) 0.08 gram-1.5 kcal/mL liquid Active 120 ML PO 4 TIMES DAILY March 18, 2022 5:05pm 3 ml insulin lispro 100 unt/ml pen injector (19 sources) Insulin Analog Start: 03-18-2022 End: 04-01-2022 Insulin Lispro (Humalog Kwikpen Insulin) 100 unit/mL insulin pen Discontinued 0 U SC EVERY 6 HOURS March 18, 2022 5:05pm April 01, 2022 8:24pm Please contact the information source for Protocol details. Start: 03-18-2022 End: 04-01-2022 Insulin Lispro (Humalog Kwik pen Insulin) 100 unit/mL insulin pen Discontinued 0 unit SC EVERY 6 HOURS March 18, 2022 4:05pm April 01, 2022 7:24pm meloxicam 7.5 mg oral tablet (5 sources) Nonsteroidal Anti-inflammatory Drug Start: 12-02-2022 End: 02-17-2025 take 1 tablet by mouth once daily as needed for pain Meloxicam 7.5 mg tablet Discontinued 7.5 mg PO DAILY as needed for pain December 02, 2022 1:00am February 17, 2025 11:25am mesalamine 1200 mg delayed release oral tablet (14 sources) Aminosalicylate Start: 01-02-2019 End: 08-19-2021 take 2 tablets by mouth once daily Mesalamine 1.2 GM tablet Discontinued 2.4 g PO DAILY January 02, 2019 12:00am August 19, 2021 11:43am Start: 01-02-2019 End: 08-19-2021 take 2.4 g by mouth once daily Mesalamine Discontinued 2.4 GM PO DAILY January 01, 2019 11:00pm August 19, 2021 10:43am methylPREDNISolone 40 mg injection (19 sources) Corticosteroid Start: 03-18-2022 End: 04-01-2022 Methylprednisolone Sod Suc(Pf) (Solu-Medrol (Pf)) 40 mg/mL recon soln Discontinued 60 mg IV TWICE A DAY March 18, 2022 5:05pm April 01, 2022 8:24pm vancomycin 125 mg oral capsule (20 sources) Glycopeptide Antibacterial Start: 04-06-2022 End: 07-21-2022 take 1 capsule by mouth every six hours Vancomycin 125 mg capsule Discontinued 125 mg PO EVERY 6 HOURS 120 April 07, 2022 12:00am July 21, 2022 9:09am Start: 03-18-2022 End: 04-06-2022 Vancomycin (Firvanq) 25 mg/m L Recon Soln Discontinued 125 mg PO EVERY 6 HOURS 600 April 01, 2022 12:00am April 06, 2022 5:18pm Start: 02-13-2022 End: 03-18-2022 take 1 capsule by mouth four times daily, then take 1 capsule by mouth twice daily, then take 1 capsule by mouth once daily, then take 1 capsule by mouth once daily Vancomycin 125 mg capsule Discontinued 125 mg PO EVERY OTHER DAY March 14, 2022 11:30pm March 18, 2022 12:28pm 125 mg p.o. 4 times daily for 4 days, 125 mg p.o. twice daily for 7 days, 125 mg daily for 7 days, 125 mg q. OD for 5 weeks Problems Active Problems Problem Classification Problem Date Documented Da te Episodic/Chronic Abdominal pain (20 sources) Acute abdominal pain; Translations: [Unspecified abdominal pain] Episodic Blindness and vision defects (2 sources) Visual hallucinations; Translations: [Visual hallucinations] Onset: 5 Episodic Cataract (12 sources) Cataract; Translations: [Unspecified cataract] Chronic Conditions associated with dizziness or vertigo (10 sources) Lightheadedness; Translations: [Dizziness and giddiness] Onset: 5 03-01-2023 Episodic Deficiency and other anemia (2 sources) Chronic anemia; Translations: [Anemia, unspecified] Episodic Deficiency and other anemia (3 sources) Anemia, unspecified; Translations: [Anemia, unspecified] Episodic Diseases of white blood cells (20 sources) Leukocytosis; Translations: [Elevated white blood cell count, unspecified] Chronic Fluid and electrolyte disorders (17 sources) Hypokalemia; Translations: [Hypokalemia] Episodic Gastrointestinal hemorrhage (20 sources) Gastrointestinal hemorrhage; Translations: [Gastrointestinal hemorrhage, unspecified] Episodic Genitourinary symptoms and ill-defined conditions (1 source) Urgent desire to urinate; Translations: [Urgency of urination] 02-19-2024 Episodic Intestinal infection (14 sources) Clostridium difficile colitis; Translations: [Enterocolitis due to Clostridium difficile, not specified as recurrent] Episodic Noninfectious gastroenteritis (14 sources) Colitis; Translations: [Noninfective gastroenteritis and colitis, unspecified] 01-03-2019 Episodic Nutritional deficiencies (20 sources) Nutritional marasmus; Translations: [Unspecified severe protein-calorie malnutrition] Chronic Osteoarthritis (18 sources) Osteoarthritis; Translations: [Unspecified osteoarthritis, unspecified site] Chronic Other circulatory disease (4 sources) Transient hypotension; Translations: [Hypotension, unspecified] 09-09-2023 Episodic Other circulatory disease (2 sources) Hypotension, unspecified; Translations: [Nonspecific low blood pressure reading] 09-09-2023 Episodic Other connective tissue disease (4 sources) Neurological deficit; Translations: [Other symptoms and signs involving the nervous system] 02-17-2025 Episodic Other gastrointestinal disorders (5 sources) H/O: ulcerative colitis; Translations: [Personal history of other diseases of the digestive system] 11-28-2022 Episodic Other hematologic conditions (14 sources) Erythrocytosis; 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] 03-15-2022 Episodic Other nervous system disorders (9 sources) Disorder of brain; Translations: [Encephalopathy, unspecified] 04-02-2022 Chronic Other nervous system disorders (3 sources) Encephalopathy, unspecified; Translations: [Encephalopathy, unspecified] Chronic Other non-traumatic joint disorders (5 sources) Anterior knee pain; Translations: [Pain in right knee] 12-02-2022 Episodic Other non-traumatic joint disorders (1 source) Pain in right knee; Translations: [Pain in joint, lower leg] 12-02-2022 Episodic Other nutritional; endocrine; and metabolic disorders (10 sources) Hypophosphatemia; 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-2022 Chronic Other nutritional; endocrine; and metabolic disorders (7 sources) Other disorders of phosphorus metabolism; 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 Paralysis (4 sources) Left hemiparesis; Translations: [Hemiplegia, unspecified affecting left nondominant side] 02-17-2025 Chronic Regional enteritis and ulcerative colitis (20 sources) Exacerbation of ulcerative colitis; Translations: [Ulcerative colitis, unspecified, without complications] Onset: 5 Chronic Residual codes; unclassified (2 sources) Sensation of being cold; Translations: [Other general symptoms and signs] 10-07-2024 Episodic Spondylosis; intervertebral disc disorders; other back problems (5 sources) Degeneration of lumbar intervertebral disc; Translations: [Other intervertebral disc degeneration, lumbar region] 11-28-2022 Chronic Syncope (20 sources) Syncope and collapse; Translations: [Syncope and collapse] 03-15-2022 Episodic Thyroid disorders (5 sources) Thyroid nodule; Translations: [Nontoxic single thyroid nodule] Onset: 5 02-17-2025 Chronic Transient cerebral ischemia (2 sources) Transient cerebral ischemia; Translations: [Transient cerebral ischemic attack, unspecified] Onset: 5 03-26-2025 Chronic Unclassified (1 source) For clinical suspicion of TIA Unclassified (1 source) Acidosis, unspecified; Translations: [Acidosis, unspecified] Onset: 5 Viral infection (6 sources) Disease caused by 2019-nCoV; Translations: [COVID-19] 09-09-2023 Episodic Past or Other Problems Problem Classification Problem Date Documented Date Episodic/Chronic Malaise and fatigue (17 sources) Asthenia; Translations: [Other malaise] Onset: 10-31-2024 Episodic Other connective tissue disease (1 source) Other symptoms and signs involving the musculoskeletal system; Translations: [Other symptoms and signs involving the musculoskeletal system] Onset: 03-06-2025 Episodic Other connective tissue disease (1 source) Other symptoms and signs involving the nervous system; Translations: [Other symptoms and signs involving the nervous system] Onset: 02-19-2025 Episodic Other ear and sense organ disorders (4 sources) Cholesteatoma of middle ear and mastoid; Translations: [Cholesteatoma of middle ear and mastoid] Onset: 02-23-2005 02-23-2005 Episodic Results Test Name Value Interpretation Reference Range Facility CBC W/Diff, Automatedon -1 0-2025 Absolute Lymph 2.00 X10 3/uL Normal 0.83-4.51 [facility] Comment on above: Performed By: #### L 503.0106, L501.9520, L100.0100, L500.4050, L506.1001 ####[facility] [address] [place], [address] Absolute Neut 5.9 X10 3/uL Normal 2.0-7.7 [facility] Comment on above: Performed By: #### L 503.0106, L501.9520, L100.0100, L500.4050, L506.1001 ####[facility] [address] [place], [address] Basophils/100 WBC (Bld) 1.4 % High 0-1 [facility] Comment on above: Performed By: #### L 503.0106, L501.9520, L100.0100, L500.4050, L506.1001 ####[facility] [address] [place], [address] Eosinophils/100 WBC (Bld) 0.7 % Normal 0-5 [facility] Comment on above: Performed By: #### L 503.0106, L501.9520, L100.0100, L500.4050, L506.1001 ####[facility] [address] [place], [address] Erythrocyte distribution width (RBC) [Ratio] 13.1 % Normal 11.6-14.6 [facility] Comment on above: Performed By: #### L 503.0106, L501.9520, L100.0100, L500.4050, L506.1001 ####[facility] [address] [place], [address] Hematocrit (Bld) [Volume fraction] 47.1 % High 37-47 [facility] Comment on above: Performed By: #### L 503.0106, L501.9520, L100.0100, L500.4050, L506.1001 ####[facility] [address] [place], [address] Hemoglobin (Bld) [Mass/Vol] 15.3 g/dL High 12.0-15.0 [facility] Comment on above: Performed By: #### L 503.0106, L501.9520, L100.0100, L500.4050, L506.1001 ####[facility] [address] [place], [address] IG% 0.200 Normal 0.0-0.9 [facility] Comment on above: Result Comment: IG% - Immature Granulocytes (promyelocytes, myelocytes and metamyelocytes) > 1% indicates that a LEFT SHIFT is Present. Performed By: #### L 503.0106, L501.9520, L100.0100, L500.4050, L506.1001 ####[facility] [address] [place], [address] Lymphocytes/100 WBC (Bld) 23.0 % Normal 19-41 [facility] Comment on above: Performed By: #### L 503.0106, L501.9520, L100.0100, L500.4050, L506.1001 ####[facility] [address] [place], [address] MCH (RBC) [Entitic mass] 29.9 pg Normal 27.0-32.0 [facility] Comment on above: Performed By: #### L 503.0106, L501.9520, L100.0100, L500.4050, L506.1001 ####[facility] [address] [place], [address] MCHC (RBC) [Mass/Vol] 32.5 g/dL Normal 32-36 [facility] Comment on above: Performed By: #### L 503.0106, L501.9520, L100.0100, L500.4050, L506.1001 ####[facility] [address] [place], [address] MCV (RBC) [Entitic vol] 92.0 fL Normal 81-99 [facility] Comment on above: Performed By: #### L 503.0106, L501.9520, L100.0100, L500.4050, L506.1001 ####[facility] [address] [place], [address] Monocytes/100 WBC (Bld) 7.0 % Normal 0-10 [facility] Comment on above: Performed By: #### L 503.0106, L501.9520, L100.0100, L500.4050, L506.1001 ####[facility] [address] [place], [address] Neutrophils/100 WBC (Bld) 67.7 % Normal 47-70 [facility] Comment on above: Performed By: #### L 503.0106, L501.9520, L100.0100, L500.4050, L506.1001 ####[facility] [address] [place], [address] Nucleated RBC (Bld) [#/Vol] 0 10*3/uL Normal 0-5 [facility] Comment on above: Performed By: #### L 503.0106, L501.9520, L100.0100, L500.4050, L506.1001 ####[facility] [address] [place], [address] Platelet mean volume (Bld) [Entitic vol] 12.8 fL High 6.2-12.0 [facility] Comment on above: Performed By: #### L 503.0106, L501.9520, L100.0100, L500.4050, L506.1001 ####[facility] [address] [place], [address] Platelets (Bld) [#/Vol] 194 10*3/uL Normal 150-450 [facility] Comment on above: Performed By: #### L 503.0106, L501.9520, L100.0100, L500.4050, L506.1001 ####[facility] [address] [place], [address] RBC (Bld) [#/Vol] 5.12 10*6/uL Normal 4.2-5.4 [facility] Comment on above: Performed By: #### L 503.0106, L501.9520, L100.0100, L500.4050, L506.1001 ####[facility] [address] [place], [address] RDW SD 44.0 fl High 35.1-43.9 [facility] Comment on above: Performed By: #### L 503.0106, L501.9520, L100.0100, L500.4050, L506.1001 ####[facility] [address] [place], [address] WBC (Bld) [#/Vol] 8.7 10*3/uL Normal 4.4-11.0 [facility] Comment on above: Performed By: #### L 503.0106, L501.9520, L100.0100, L500.4050, L506.1001 ####[facility] [address] [place], [address] Comprehensive Metabolic Prof [facility] 08-19-2025 Albumin [Mass/Vol] 4.1 g/dL Normal 3.4-4.8 [facility] Comment on above: Performed By: #### L 503.0106, L501.9520, L100.0100, L500.4050, L506.1001 ####[facility] [address] [place], [address] Albumin/Globulin [Mass ratio] 1.8 {ratio} Normal 0.9-2.4 [facility] Comment on above: Performed By: #### L 503.0106, L501.9520, L100.0100, L500.4050, L506.1001 ####[facility] [address] [place], [address] ALK PHOS 75 U/L Normal 35-104 [facility] Comment on above: Performed By: #### L 503.0106, L501.9520, L100.0100, L500.4050, L506.1001 ####[facility] [address] [place], [address] ALT [Catalytic activity/Vol] 8 U/L Normal <=34 [facility] Comment on above: Performed By: #### L 503.0106, L501.9520, L100.0100, L500.4050, L506.1001 ####[facility] [address] [place], [address] AST [Catalytic activity/Vol] 19 U/L Normal <=31 [facility] Comment on above: Performed By: #### L 503.0106, L501.9520, L100.0100, L500.4050, L506.1001 ####[facility] [address] [place], [address] Bilirubin [Mass/Vol] 0.41 mg/dL Normal 0.00-1.30 [facility] Comment on above: Performed By: #### L 503.0106, L501.9520, L100.0100, L500.4050, L506.1001 ####[facility] [address] [place], [address] BUN/CRE 20.4 RATIO High 10-20 [facility] Comment on above: Performed By: #### L 503.0106, L501.9520, L100.0100, L500.4050, L506.1001 ####[facility] [address] [place], [address] Calcium [Mass/Vol] 9.4 mg/dL Normal 7.6-11.0 [facility] Comment on above: Performed By: #### L 503.0106, L501.9520, L100.0100, L500.4050, L506.1001 ####[facility] [address] [place], [address] Chloride [Moles/Vol] 106 mmol/L Normal 98-108 [facility] Comment on above: Performed By: #### L 503.0106, L501.9520, L100.0100, L500.4050, L506.1001 ####[facility] [address] [place], [address] CO2 [Moles/Vol] 22.8 mmol/L Normal 21.0-32.0 [facility] Comment on above: Performed By: #### L 503.0106, L501.9520, L100.0100, L500.4050, L506.1001 ####[facility] [address] [place], [address] Creatinine [Mass/Vol] 0.85 mg/dL Normal 0.70-1.20 [facility] Comment on above: Performed By: #### L 503.0106, L501.9520, L100.0100, L500.4050, L506.1001 ####[facility] [address] [place], [address] GAP 13 Normal 5-15 [facility] Comment on above: Performed By: #### L 503.0106, L501.9520, L100.0100, L500.4050, L506.1001 ####[facility] [address] [place], [address] GFR/1.73 sq M.predicted among non-blacks MDRD (S/P/Bld) [Vol rate/Area] 67 mL/min/{1.73_m2} Normal >60 [facility] Comment on above: Result Comment: mL/m in/1.73m2 CKD-EPI Creatinine Equation (2020) Performed By: #### L 503.0106, L501.9520, L100.0100, L500.4050, L506.1001 ####[facility] [address] [place], [address] Globulin (S) [Mass/Vol] 2.3 g/dL Normal 2.2-4.2 [facility] Comment on above: Performed By: #### L 503.0106, L501.9520, L100.0100, L500.4050, L506.1001 ####[facility] [address] [place], [address] Glucose [Mass/Vol] 98 mg/dL Normal 70-99 [facility] Comment on above: Performed By: #### L 503.0106, L501.9520, L100.0100, L500.4050, L506.1001 ####[facility] [address] [place], [address] Potassium [Moles/Vol] 3.9 mmol/L Normal 3.3-5.1 [facility] Comment on above: Performed By: #### L 503.0106, L501.9520, L100.0100, L500.4050, L506.1001 ####[facility] [address] [place], [address] Sodium [Moles/Vol] 142 mmol/L Normal 133-145 [facility] Comment on above: Performed By: #### L 503.0106, L501.9520, L100.0100, L500.4050, L506.1001 ####[facility] [address] [place], [address] T PROT 6.4 g/dL Normal 5.9-8.4 [facility] Comment on above: Performed By: #### L 503.0106, L501.9520, L100.0100, L500.4050, L506.1001 ####[facility] [address] [place], [address] Urea nitrogen [Mass/Vol] 17 mg/dL Normal 4-19 [facility] Comment on above: Performed By: #### L 503.0106, L501.9520, L100.0100, L500.4050, L506.1001 ####[facility] [address] [place], [address] Thyroid Stim Hormone (TSH)on 08-19-2025 TSH 0.957 uIU/mL Normal 0.300-4.200 [facility] Comment on above: Performed By: #### L 400.0001 #### [facility] [address] [place], [address] Vitamin B12on 08-19-2025 Cobalamin (Vitamin B12) [Mass/Vol] 282 pg/mL Normal 180-914 [facility] Comment on above: Performed By: #### L 400.0001 #### [facility] [address] [place], [address] Vitamin D,25 Hydroxyon 08-19 Vitamin D 25-OH 11.5 ng/mL Low 30-100 [facility] Comment on above: Result Comment: Ambika min D Status Deficiency: <20 ng/mL (50nmol/L) Insufficiency: 20-30 ng/mL (50-75 nmol/L) Sufficiency: 30-100 ng/mL (75-250 nmol/L) Toxicity: >100 ng/mL (>250 nmol/L) Performed By: #### L 400.0001 #### [facility] [address] [place], [address] HSV 1/2 by PCRon 08-15-2025 HSV 1 PCR Negative Normal Negative [facility] Comment on above: Performed By: #### L 400.0001 #### [facility] [address] [place], [address] HSV 2 PCR Negative Normal Negative [facility] Comment on above: Result Comment: Perf ormed at: [address] [id number] Beverage Steward: Davina Leonardo MD, Phone: [phone] Performed By: #### L 400.0001 #### [facility] [address] [place], [address] L3410.9992on 08-15-2025 [facility] Misc. COMMENT Normal . [facility] Comment on above: Order Comment: CLEAN CATCH Result Comment: Test Ordered: [id number] Meningitis/Encephalitis by YANETH Escherichia coli K1 Note: BN Not Detected Reference Range: Not Detected Haemophilus influenzae Note: BN Not Detected Reference Range: Not Detected Listeria monocytogenes Note: BN Not Detected Reference Range: Not Detected N meningitidis (encapsulated) Note: BN Not Detected Reference Range: Not Detected Streptococcus agalactiae Note: BN Not Detected Reference Range: Not Detected Streptococcus pneumoniae Note: BN Not Detected Reference Range: Not Detected Cytomegalovirus Note: BN Not Detected Reference Range: Not Detected Enterovirus Note: BN Not Detected Reference Range: Not Detected Herpes simplex virus 1 Note: BN Not Detected Reference Range: Not Detected Herpes simplex virus 2 Note: BN Not Detected Reference Range: Not Detected Human herpesvirus 6 Note: BN Not Detected Reference Range: Not Detected Human parechovirus Note: BN Not Detected Reference Range: Not Detected Varicella zoster virus Note: BN Not Detected Reference Range: Not Detected Cryptococcus neoformans/gattii Note: BN Not Detected Reference Range: Not Detected Performed at: [address] [id number] Beverage Steward: Davina Leonardo MD, Phone: [phone] Performed at: [address] [id number] Beverage Steward: Surya Washington PhD, Phone: [phone] Performed By: #### L 400.0001 #### [facility] [address] [place], [place], [address] Cerebral Spinal Fluid Cultur xiao 08-14-2025 [facility] No growth in 72 hours. Normal [facility] Comment on above: Performed By: #### L 400.0001 #### [facility] [address] [place], [address] L3410.9992on 08-14-2025 [facility] Misc. COMMENT Normal . [facility] Comment on above: Order Comment: [id number] Jurgen 2 mutation EDTA RT WB Result Comment: Test Ordered: [id number] JAK2 V617F, Quantitative Test(s) [id number]-Talxaoshviu: was developed and its performance characteristics determined by [employer]. It has not been cleared or approved by the Food and Drug Administration. JAK2 V617F Mutation Quant Rslt Comment Reference Range: . NEGATIVE The JAK2 V617F mutation is not detected in the provided specimen of this individual. This result does not rule out the presence of the JAK2 mutation at a level below the sensitivity of detection of this assay, or the presence of other mutations within JAK2 not detected by this assay. Background: Comment Reference Range: . The Quantitative Real-Time PCR assay detects V617F mutation (c.1849 G>T) observed in approximately 95% polycythemia vera (PV), 55% essential thrombocythemia (ET) and 55% primary myelofibrosis (PMF). It is also infrequently present (3-5%) in myelodysplastic syndrome, chronic myelomonocytic leukemia, and other atypical chronic myeloid disorders. The results should be interpreted in the context of all clinical and laboratory findings. No therapeutic action should be taken based solely on these results. This assay detects only the JAK2 V617F point mutation. Other mutations that may occur in the JAK2 gene will not be detected. Methodology: Comment PENN Reference Range: . Total genomic DNA was extracted and subjected to TaqMan real-time PCR amplification/detection. Two amplification products per sample were monitored by real-time PCR using primers/probes specific to JAK2 wild type (WT) and JAK2 mutant V617F. The [employer] Absolute Quantitation software will compare the patient specimen values to the standard curves and generate percent values for wild type and mutant type. The numerical values of Sample Mutant Quantity/(Sample Mutant Quantity+ Sample Wild Type Quantity)X100 is reported as a percentage. In vitro studies have indicated that this assay has an analytical sensitivity of 1%. References: Comment PENN Reference Range: . Jimenez EJ, Joshua LM, Mika PJ, et al. Acquired mutation of the tyrosine kinase JAK2 in human myeloproliferative disorders. Lancet. 2005 Dec 26; 365(5316):1397-8648. Scott Oliveira, Iglesia V, Sal Mukherjee SONIA. A unique clonal JAK2 mutation leading to constitutive signaling causes polycythaemia vera. Nature. 2005 Feb 04; 759(6625):6290-9723. Fredy R, Donta F, Marilee , et al. A gain-of- function mutation of JAK2 in myeloproliferative disorders. N Engl J Med. 2005 Feb 04; 35217):1541-3094. Director Review: Comment PENN Reference Range: . Technical Component performed at [facility] Professional Component performed by: Al Roy, PhD, [facility] Director, Molecular Oncology [facility] [id number], [address] [address] Performed at: [facility] [address] [place], [place] [id number] Beverage Steward: Yaya Melendez [facility], Phone: [phone] Performed at: [facility] [address] [id number] Beverage Steward: Surya Washington PhD, Phone: [phone] Performed By: #### L 3410.9992, L500.4050, L501.6710, L101.9900, L100.0100 #### [facility] [address] [place], [address] Spinal Fluid Cell Count+Diff on 08-13-2025 MONO,CSF 6 Low 15 - 45 [facility] Comment on above: Performed By: #### L 400.0001 #### [facility] [address] [facility] [place], [address] Cytology, Body Fluid / CSFon 08-12-2025 CYTOLOGY,BF/CSF SEE PATHOLOGY REPORT Normal [facility] Comment on above: Result Comment: Spec cecilia submitted to Anatomical Pathology Department for testing. Performed By: #### L 501.080 #### [facility] [address] [place], [address] Discharge Instructionon Discharge Instruction [facility] Medical Records Department [address] [place] [address] Instructions for Home/Discharge Instructions 08/12/25 1338 MR#: [id number] Acct: [id number] Name: SHIRA MERRITT Rep #: [id number] : 1940 85 From: Malcolm Altamirano MD PCP: CYNDI HollisC Status:ADM IN Discharge Instructions DC O2, CPAP, BIPAP needs Home O2 Discharge instructions: No Dressing / Incision Discharge Activity: Return to Normal Activity Dressing / Incision Call your doctor if you observe: Fever of 101 or Higher, Shortness of breath, Dizziness, Fainting spells, Swelling in the ankles, Chest pain and Increased palpitations (irregular heartbeat) Follow Up Care Test Results: Test results from this visit will be discussed in further detail at your follow-up appointment, if applicable. Discharge Plan Admission Admit Date/Time: 08/10/25 21:55 Attending Provider: Malcolm Altamirano Primary Care Provider: Varinder Phoenix [facility] Consulting Providers: Toi Shen; Deandra Blancas; Amanda Cullen; Juan Carlos Kevin; Edouard Coronel; Juan Ramon Kay; Colette Jacob; MG DELGADO; Bozena Chau; Mavis Giles; Jose Sharma; Zully Riddle Instructions Patient Instructions: Delirium and Dementia, ED Confusion, ED Dehydration (Adult) Additional Instructions / Restrictions: Continue to increase fluids at home, Gatorade, Powerade, water. Continue taking home medications. Call Dr. Phoenix office today for a follow-up appointment on Tuesday or Tuesday. Their office has not seen you since October. I have spoken to Gabbie RIOS who agrees with discharge, will speak to Dr. Phoenix, and agrees with follow-up early next week. Discharge Orders/Prescriptions Prescriptions: New hydroxyzine pamoate 25 mg capsule 50 mg PO TID PRN PRN (Reason: Anxiety) Qty: 8 0RF Continued acetaminophen 500 mg capsule 1,000 mg PO Q6H PRN (Reason: fever or pain) aspirin 81 mg Tablet,Chewable 81 mg PO BREAKFAST 30 Days Qty: 30 3RF Stelara 90 mg/mL syringe 90 mg subcut Q8W 360 Days Qty: 1 6RF Rx Instructions: Inject one syringe SQ every 8 weeks starting 8 weeks after induction infusion. Referrals / Follow Up: Varinder Phoenix, MANUFACTURING ACCOUNTANT-C [Primary Care Provider, Family Practice] - Within 1 Week Disposition Disposition (needs filled in before D/C Order can be placed): Home, Self Care 08/12/25 1340 Malcolm Altamirano MD CC: Mavis Giles; MANUFACTURING ACCOUNTANT-C Varinder Phoenix; Amanda Cullen MD; Juan Carlos Kevin MD; Dr. Vicente Delgado MD; Dr. Deandra Blancas MD; Dr. Toi Shen DO; Dr. Juan Ramon Kay MD; Colette Jacob MD; Edouard Coronel MD; Bozena Chau DO; Jose Sharma MD; Zully Riddle DO Signed Normal [facility] Dx Lumbar Puncture w/IMG [place] 08-12-2025 Dx Lumbar Puncture w/IMG Guide [facility] Imaging Services [address] [place] [id number] Dx Lumbar Puncture w/IMG Guide MR#: [id number] Acct: [id number] Name: SHIRA MERRITT Rep #: [id number] : 1940 F 85 From: Clifton Obrien PCP: IDALMIS Hollis Status: ADM IN Study: Dx Lumbar Puncture w/IMG Guide Date of Exam: 10/12/24 Exam# [id number] Ordering Dr: Malcolm Altamirano MD PROCEDURE: DX LUMBAR PUNCTURE W/IMG GUIDE N/A REASON FOR EXAM: POSSIBLE ENCEPHALITIS TECHNIQUE: Procedure Code: [id number] Modality: DX Procedure: DX LUMBAR PUNCTURE W/IMG GUIDE COMPARISON: Abdomen and pelvis CT of 03/15/2022. FINDINGS: Procedure: Following informed consent, and using standard sterile technique, a fluoroscopically guided lumbar puncture was performed. 2% lidocaine local anesthesia was followed by placement of a 20 gauge spinal needle into the spinal canal at the L3 level. A total of approximately 15 mL of clear fluid was successfully removed, and sent to the laboratory for evaluation. No complication was encountered, in the patient left the department in good condition without significant complaint. RAD/Dx Lumbar Puncture w/IMG Guide IMPRESSION: Successful fluoroscopically guided lumbar puncture. Laboratory results pending. Reading Location: [place] [address] CC: IDALMIS [place]; Dr. Malcolm Altamirano MD Box Toe Cutter: Signed Normal [facility] Glucose Spinal Fluidon 08-12 GLU SPINAL FLD 56 mg/dL Normal 40-75 [facility] Comment on above: Performed By: #### L 400.0001 #### [facility] [address] [place], [address] Gram Stainon 08-12-2025 GS Centrifuged Specimen ? Culture performed on centrifuged specimen Gram Stain No organisms seen Normal [facility] Comment on above: Performed By: #### L 400.0001 #### [facility] [address] [place], [address] Pap Stain (control)on 2024 Pap Stain (control) - -------- Patient Age/Sex Location Account Attending Physician -------- RENÉSHIRA 85/F PCU [id number] Dr. Malcolm Altamirano MD -------- Specimen: [id number] Received: 08/12/25 Status: CINTHYA Rush Num: [id number] Spec Type: KENRICK Harrington Dr: Dr. Malcolm Altamirano MD HEADER OPERATION: Not noted PRE-OP DIAGNOSIS: Acidosis, visual hallucinations TISSUE SUBMITTED: A- Cerebrospinal fluid for cytology -------- DIAGNOSIS CYTOLOGY A. Cerebrospinal fluid (cytospin): - No malignant cells identified. CYTOLOGY STUDY Slides are reviewed. CYTOLOGY GROSS A. Received is 3 ml of clear fluid labeled with the patient's name and and designated per the requisition as "Cerebrospinal fluid." Submitted for cytology and cell block preparation. 08/12/2025 CPT: 42320 Signed (signature on file) Dr. Nely Dunn MD 08/14/25 1103 -------- Normal [facility] Comment on above: Performed By: #### P PAPS ####[facility] [address] [place], [address] Protein Spinal Fluidon 08-12 PROTEIN CSF 76.4 mg/dL High 15.0-45.0 [facility] Comment on above: Performed By: #### L 400.0001 #### [facility] [address] [place], [address] CBC W/Diff, Automatedon Absolute Lymph 2.37 X10 3/uL Normal 0.83-4.51 [facility] Comment on above: Performed By: #### L 501.080 #### [facility] [address] [place], [address] Absolute Neut 4.3 X10 3/uL Normal 2.0-7.7 [facility] Comment on above: Performed By: #### L 501.080 #### [facility] [address] [place], [address] Basophils/100 WBC (Bld) 1.4 % High 0-1 [facility] Comment on above: Performed By: #### L 501.080 #### [facility] [address] [place], [address] Eosinophils/100 WBC (Bld) 3.0 % Normal 0-5 [facility] Comment on above: Performed By: #### L 501.080 #### [facility] [address] [place], [address] Erythrocyte distribution width (RBC) [Ratio] 13.2 % Normal 11.6-14.6 [facility] Comment on above: Performed By: #### L 501.080 #### [facility] [address] [place], [address] Hematocrit (Bld) [Volume fraction] 42.1 % Normal 37-47 [facility] Comment on above: Performed By: #### L 501.080 #### [facility] [address] [place], [address] Hemoglobin (Bld) [Mass/Vol] 13.8 g/dL Normal 12.0-15.0 [facility] Comment on above: Performed By: #### L 501.080 #### [facility] [address] [place], [address] IG% 0.300 Normal 0.0-0.9 [facility] Comment on above: Result Comment: IG% - Immature Granulocytes (promyelocytes, myelocytes and metamyelocytes) > 1% indicates that a LEFT SHIFT is Present. Performed By: #### L 501.080 #### [facility] [address] [place], [address] Lymphocytes/100 WBC (Bld) 31.1 % Normal 19-41 [facility] Comment on above: Performed By: #### L 501.080 #### [facility] [address] [place], [address] MCH (RBC) [Entitic mass] 29.9 pg Normal 27.0-32.0 [facility] Comment on above: Performed By: #### L 501.080 #### [facility] [address] [place], [address] MCHC (RBC) [Mass/Vol] 32.8 g/dL Normal 32-36 [facility] Comment on above: Performed By: #### L 501.080 #### [facility] [address] [place], [address] MCV (RBC) [Entitic vol] 91.3 fL Normal 81-99 [facility] Comment on above: Performed By: #### L 501.080 #### [facility] [address] [place], [address] Monocytes/100 WBC (Bld) 8.1 % Normal 0-10 [facility] Comment on above: Performed By: #### L 501.080 #### [facility] [address] [place], [address] Neutrophils/100 WBC (Bld) 56.1 % Normal 47-70 [facility] Comment on above: Performed By: #### L 501.080 #### [facility] [address] [place], [address] Nucleated RBC (Bld) [#/Vol] 0 10*3/uL Normal 0-5 [facility] Comment on above: Performed By: #### L 501.080 #### [facility] [address] [place], [address] Platelet mean volume (Bld) [Entitic vol] 12.4 fL High 6.2-12.0 [facility] Comment on above: Performed By: #### L 501.080 #### [facility] [address] [place], [address] Platelets (Bld) [#/Vol] 156 10*3/uL Normal 150-450 [facility] Comment on above: Performed By: #### L 501.080 #### [facility] [address] [place], [address] RBC (Bld) [#/Vol] 4.61 10*6/uL Normal 4.2-5.4 [facility] Comment on above: Performed By: #### L 501.080 #### [facility] [address] [place], [address] RDW SD 43.9 fl Normal 35.1-43.9 [facility] Comment on above: Performed By: #### L 501.080 #### [facility] [address] [place], [address] WBC (Bld) [#/Vol] 7.6 10*3/uL Normal 4.4-11.0 [facility] Comment on above: Performed By: #### L 501.080 #### [facility] [address] [place], [address] Comprehensive Metabolic Prof ilon 08-11-2025 Albumin [Mass/Vol] 3.5 g/dL Normal 3.4-4.8 [facility] Comment on above: Performed By: #### L 501.080 #### [facility] [address] [place], [address] Albumin/Globulin [Mass ratio] 1.6 {ratio} Normal 0.9-2.4 [facility] Comment on above: Performed By: #### L 501.080 #### [facility] [address] [place], [address] ALK PHOS 65 U/L Normal 35-104 [facility] Comment on above: Performed By: #### L 501.080 #### [facility] [address] [place], [address] ALT [Catalytic activity/Vol] 6 U/L Normal <=34 [facility] Comment on above: Performed By: #### L 501.080 #### [facility] [address] [place], [address] AST [Catalytic activity/Vol] 15 U/L Normal <=31 [facility] Comment on above: Performed By: #### L 501.080 #### [facility] [address] [place], [address] Bilirubin [Mass/Vol] 0.51 mg/dL Normal 0.00-1.30 [facility] Comment on above: Performed By: #### L 501.080 #### [facility] [address] [place], [address] BUN/CRE 18.8 RATIO Normal 10-20 [facility] Comment on above: Performed By: #### L 501.080 #### [facility] [address] [place], [address] Calcium [Mass/Vol] 8.5 mg/dL Normal 7.6-11.0 [facility] Comment on above: Performed By: #### L 501.080 #### [facility] [address] [place], [address] Chloride [Moles/Vol] 108 mmol/L Normal 98-108 [facility] Comment on above: Performed By: #### L 501.080 #### [facility] [address] [place], [address] CO2 [Moles/Vol] 24.8 mmol/L Normal 21.0-32.0 [facility] Comment on above: Performed By: #### L 501.080 #### [facility] [address] [place], [address] Creatinine [Mass/Vol] 0.85 mg/dL Normal 0.70-1.20 [facility] Comment on above: Performed By: #### L 501.080 #### [facility] [address] [place], [address] ECRCL 41.14 ml/min Low 50-250 [facility] Comment on above: Performed By: #### L 501.080 #### [facility] [address] [place], [address] GAP 9 Normal 5-15 [facility] Comment on above: Performed By: #### L 501.080 #### [facility] [address] [place], [address] GFR/1.73 sq M.predicted among non-blacks MDRD (S/P/Bld) [Vol rate/Area] 68 mL/min/{1.73_m2} Normal >60 [facility] Comment on above: Result Comment: mL/m in/1.73m2 CKD-EPI Creatinine Equation (2020) Performed By: #### L 501.080 #### [facility] [address] [place], [address] Globulin (S) [Mass/Vol] 2.2 g/dL Normal 2.2-4.2 [facility] Comment on above: Performed By: #### L 501.080 #### [facility] [address] [place], [address] Glucose [Mass/Vol] 99 mg/dL Normal 70-99 [facility] Comment on above: Performed By: #### L 501.080 #### [facility] [address] [place], [address] Potassium [Moles/Vol] 4.1 mmol/L Normal 3.3-5.1 [facility] Comment on above: Performed By: #### L 501.080 #### [facility] [address] [place], [address] Sodium [Moles/Vol] 142 mmol/L Normal 133-145 [facility] Comment on above: Performed By: #### L 501.080 #### [facility] [address] [place], [address] T PROT 5.7 g/dL Low 5.9-8.4 [facility] Comment on above: Performed By: #### L 501.080 #### [facility] [address] [place], [address] Urea nitrogen [Mass/Vol] 16 mg/dL Normal 4-19 [facility] Comment on above: Performed By: #### L 501.080 #### [facility] [address] 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 Imaging largely benign but the L temporal lobe slightly more bright - unclear significance. Exam with functional overlay and pain in the R aspect of the neck consistent with cervicogenic pain. Recommend treating headache but unlikely that complex migraine would cause this well formed of a hallucination (usually it is scotomas or shapes, lights, colors etc). Given her immunocompromised state from UC treatment, would obtain LP to further evaluate. Plan - migraine cocktail: toradol 30mg IV, compazine 10 PO, benadryl 25mg PO - lidocaine patch to back of the neck - consider LP to eval for infections/inflammato ry etiology and obtain the following labs: cell count, protein glucose, meningitis/encephalit is panel, culture, HSV, VZV, cytology I personally attended this patient and spent a total time of 45minutes evaluating this patient including clinical assessment, review of chart, medical history imaging, and determining appropriate treatment and workup. HPI Consult Data Date of Consult: 08/12/25 HPI Narrative HPI Narrative: SHIRA MERRITT, is a 85 F who presents with hallucinations this is a 81 female with a past medical history presents from home with hallucinations. The hallucinations are the patient, who is 85 years old, seeing her father in the room. Symptoms persisted for a while so that led to the family the bring patient to the emergency room. And patient underwent a workup with a head CT, urinalysis, chest x-ray, COVID/influenza/RSV which were all negative. The plan was for the patient to go home but then she started hallucinating again seeing her father. The family was concerned and the hospital service was contacted. Patient has had hallucinations in the past but they have been rather nonspecific as another individual, not necessarily her father, being present in her room. Usually symptoms were very limited and many times associated with a urinary tract infection. Patient right now complains of a headache her vision being blurry. She does have chronic left lower extremity weakness that was felt to be due to a TIA. Also while patient was in the room she started having rigors where she was shaking the whole bed. Patient was since wrapped in blankets and is finally feeling warm. [ ] Neurologic history Endorses a MATTHEWS currently that started a couple hrs ago, normally does not have them. She also feels really warm. The headaches she is having at home have been more frequently - they have been more frequent, denies that it feel different. Along the top and forehead of her head, throbbing, sensitive to the light. No nausea. No vertigo but has lightheadedness Been on Stellara for a while (over a year), no diarrhea recently. Came to the hospital because of bad headaches and seeing things that were not there. She is aware of seeing her father on the side of her bed. No hallucinations since coming to the hospital. Never knew her father (he when she was 2 weeks old) so just imagined that it was his dad. Denies any fevers at home, no rashes Lives with daughter and son. STates she is under a lot of stress, and moved in with family a year ago. During the exam, she suddenly states the L leg is weak and has not been prior to this. Exam -? General: Laying comfortably in bed; in no acute distress. -? HENT: Normal oropharynx and mucosa. Normal external appearance of ears and nose. Exophthalmos. -? Neck: Supple, no pain or tenderness -? CV:??? No peripheral edema. -? Pulmonary:??? Normal respiratory effort. -? Ext: No cyanosis, edema, or deformity -? Skin: No rash. Normal palpation of skin.??? -? Musculoskeletal: full range of motion; no joint tenderness. Normal digits and nails by inspection. No clubbing. -? NEURO: -? Mental Status: The patient was alert and oriented toplace, and person, poorly to time (did not know month or day). Normal recent/remote memory, concentration, and general fund of knowledge. -? Language: speech is clear.??? Naming, repetition, fluency, and comprehension intact. -? Cranial Nerves: PERRL 3 mm/brisk. EOMI, visual fay (more content not included)... Normal [facility] Urine Cultureon 08-11-2025 URC Below infection level. Mixed Gram Positive Organisms [place] Count 1000-10,000 MIXC Mixed contaminants. Submit a new specimen if indicated. Normal [facility] Comment on above: Performed By: #### L 501.080 #### [facility] [address], [address] Bedside Glucoseon 08-10-2025 FINGERSTICK GLU 79 mg/dL Normal 74-106 [facility] Comment on above: Result Comment: WILMAN MULLER OF PATIENT CARE PER NURSING PROTOCOL Performed By: #### L 501.080 #### [facility] [address] [place], [address] Lipid Profileon 08-10-2025 CHOL:HDL 3.10 Normal [facility] Comment on above: Order Comment: Comme nts: NPO at [place] prior to lipid panel Performed By: #### L 500.4100 ####[facility] [address] [place], [address] Cholesterol [Mass/Vol] 167 mg/dL Normal <=200 [facility] Comment on above: Order Comment: Comme nts: NPO at [place] prior to lipid panel Result Comment: Chol esterol level, Desirable <200 mg/dL Borderline high cholesterol 200-239 mg/dL High cholesterol >=240 mg/dL Recommendations of the NCEP Adult Treatment Panel for the following risk-cutoff thresholds for the [place] population. Performed By: #### L 500.4100 ####[facility] [address] [place], [address] Cholesterol in HDL [Mass/Vol] 54 mg/dL Normal [facility] Comment on above: Order Comment: Comme nts: NPO at [place] prior to lipid panel Result Comment: Cat onal Cholesterol Education Program (NCEP) guidelines: <40 mg/dL: Low HDL-cholesterol (major risk factor for CHD) >= 60 mg/dL: High HDL-cholesterol (negative risk factor for CHD) HDL-cholesterol is affected by a number of factors, e.g. smoking, exercise, hormones, sex and age. Performed By: #### L 500.4100 ####[facility] [address] [place], [address] Cholesterol in LDL [Mass/Vol] 95 mg/dL Normal [facility] Comment on above: Order Comment: Comme nts: NPO at [place] prior to lipid panel Result Comment: Bord kvukja=806-699 mg/dL Higher Zpqi=600 mg/dL or greater Li Equation 2020 for LDL-C Performed By: #### L 500.4100 ####[facility] [address] [place], [address] Cholesterol in VLDL [Mass/Vol] 19 mg/dL Normal 5-40 [facility] Comment on above: Order Comment: Comme nts: NPO at [place] prior to lipid panel Performed By: #### L 500.4100 ####[facility] [address] [place], [address] Triglyceride [Mass/Vol] 97 mg/dL Normal [facility] Comment on above: Order Comment: Comme nts: NPO at [place] prior to lipid panel Result Comment: The drugs N-Acetylcysteine and Metamizole may falsely depress this assay. Normal range: <150 mg/dL Borderline High: 150-199 mg/dL High: 200-499 mg/dL Very High: >500 mg/dL Performed By: #### L 500.4100 ####[facility] [address] [place], [address] 12 Lead EKGon 08-09-2025 12 Lead EKG [facility] Cardiovascular Services [address] [place] [address] 12 Lead EKG 08/09/25 1046 MR#: [id number] Acct: [id number] Name: SHIRA MERRITT Rep #: [id number] : 1940 85 From: Arthur Armendariz MD Attending Dr: Dr. Malcolm Altamirano MD Status : ADM IN Ordering Dr: Kiet Menendez DO Date: 08/09/25 Location: [facility] Sex: F C Admitted: 08/10/25 Test Reason : Blood Pressure : */* mmHG Vent. Rate : 50 BPM Atrial Rate : 50 BPM P-R Int : 110 ms QRS Dur : 72 ms QT Int : 460 ms P-R-T Axes : 93 57 93 degrees QTcB Int : 419 ms Sinus bradycardia with short MA Otherwise normal ECG Confirmed by Arthur Armendariz ([id number]), script editor TAYLA OROZCO ([id number]) on 08/12/2025 1:03:12 PM Referred By: Confirmed By: Arthur Armendariz 08/12/25 1303 Date Arthur Armendariz MD CC: MANUFACTURING ACCOUNTANT-C Varinder [place]; Dr. Kiet Menendez DO; Dr. Malcolm Altamiarno MD Signed Normal [facility] Bedside Glucoseon 08-09-2025 FINGERSTICK GLU 79 mg/dL Normal 74-106 [facility] Comment on above: Result Comment: WILMAN GEMENT OF PATIENT CARE PER NURSING PROTOCOL Performed By: #### L 501.080 #### [facility] [address] [place], [place], [address] Brain without Contraston Brain without Contrast [facility] Imaging Services [address] [place], [place] [address] Brain without Contrast MR#: [id number] Acct: [id number] Name: SHIRA MERRITT Rep #: [id number] : 1940 F 85 From: Graeme Valente MD PCP: IDALMIS Hollis Status: ADM COREY Study: Brain without Contrast Date of Exam: 08/09/25 Exam# [id number] Ordering Dr: Toi Shne DO PROCEDURE: BRAIN WITHOUT CONTRAST N/A REASON FOR EXAM: HALLUCINATIONS TECHNIQUE: Procedure Code: MRIBR Modality: MR Procedure: BRAIN WITHOUT CONTRAST Multiplanar and multisequence images were obtained. COMPARISON: Head CT of the same day FINDINGS: Brain: No evidence of hemorrhage. No evidence of acute ischemia. No extra-axial collection, midline shift or mass effect. Mild T2 prolongation in the periventricular white matter. Ventricles: Djmc-og-tzojcdbi volume loss. No hydrocephalus. Major Intracranial Vessels: Flow voids are grossly unremarkable. Most recent CT angiogram February 17, 2025. Sinuses: Clear Mastoids: Clear Right lens implant is present. MRI/Brain without Contrast IMPRESSION: 1. No evidence of acute ischemia. Mild changes of chronic microvascular ischemia and volume loss. Reading Location: [facility] CC: IDALMIS [place]; Dr. Toi Shen DO Box Toe Cutter: Signed Normal [facility] Brain/Head without Contrasto n 08-09-2025 Brain/Head without Contrast [facility] Imaging Services [address] [place], [place] [address] Brain/Head without Contrast MR#: [id number] Acct: [id number] Name: SHIRA MERRITT Rep #: [id number] : 1940 F 85 From: Ja moeller MD PCP: IDALMIS Hollis Status: REG ER Study: Brain/Head without Contrast Date of Exam: 07/12 11/03 Exam# [id number] Ordering Dr: Kiet Menendez DO PROCEDURE: BRAIN/HEAD WITHOUT CONTRAST 08/09/2025 REASON FOR EXAM: CHANGE IN MENTAL STATUS TECHNIQUE: Procedure Code: CTBR Modality: CT Procedure: BRAIN/HEAD WITHOUT CONTRAST Coronal and Sagittal reconstruction series were provided. One or more dose reduction techniques were used (e.g., Automated exposure control, adjustment of the mA and/or kV according to patient size, use of iterative reconstruction technique. RADIATION DOSE SUMMARY: CTDlvol: 44.99 mGy DLP: 745.49 mGycm COMPARISON: Prior study dated February 17, 2025. FINDINGS: Brain: Within normal limits for age CSF Spaces: Mild generalized cerebral atrophy Sinuses/Mastoids: Clear at visualized levels Bones: No bony abnormality. CT/Brain/Head without Contrast IMPRESSION: CHRONIC CHANGES. NO ACUTE FINDINGS. Reading Location: [place] CC: IDALMIS [place]; Dr. Kiet Menendez DO Box Toe Cutter: Signed Normal [facility] CBC W/Diff, Automatedon 07-12 Absolute Lymph 2.19 X10 3/uL Normal 0.83-4.51 [facility] Comment on above: Performed By: #### L 501.080 #### [facility] [address] [place], [address] Absolute Neut 4.6 X10 3/uL Normal 2.0-7.7 [facility] Comment on above: Performed By: #### L 501.080 #### [facility] [address] [place], [address] Basophils/100 WBC (Bld) 1.7 % High 0-1 [facility] Comment on above: Performed By: #### L 501.080 #### [facility] [address] [place], [address] Eosinophils/100 WBC (Bld) 1.2 % Normal 0-5 [facility] Comment on above: Performed By: #### L 501.080 #### [facility] [address] [place], [address] Erythrocyte distribution width (RBC) [Ratio] 13.1 % Normal 11.6-14.6 [facility] Comment on above: Performed By: #### L 501.080 #### [facility] [address] [place], [address] Hematocrit (Bld) [Volume fraction] 47.6 % High 37-47 [facility] Comment on above: Performed By: #### L 501.080 #### [facility] [address] [place], [address] Hemoglobin (Bld) [Mass/Vol] 15.5 g/dL High 12.0-15.0 [facility] Comment on above: Performed By: #### L 501.080 #### [facility] [address] [place], [address] IG% 0.400 Normal 0.0-0.9 [facility] Comment on above: Result Comment: IG% - Immature Granulocytes (promyelocytes, myelocytes and metamyelocytes) > 1% indicates that a LEFT SHIFT is Present. Performed By: #### L 501.080 #### [facility] [address] [place], [address] Lymphocytes/100 WBC (Bld) 28.9 % Normal 19-41 [facility] Comment on above: Performed By: #### L 501.080 #### [facility] [address] [place], [address] MCH (RBC) [Entitic mass] 30.1 pg Normal 27.0-32.0 [facility] Comment on above: Performed By: #### L 501.080 #### [facility] [address] [place], [address] MCHC (RBC) [Mass/Vol] 32.6 g/dL Normal 32-36 [facility] Comment on above: Performed By: #### L 501.080 #### [facility] [address] [place], [address] MCV (RBC) [Entitic vol] 92.4 fL Normal 81-99 [facility] Comment on above: Performed By: #### L 501.080 #### [facility] [address] [place], [address] Monocytes/100 WBC (Bld) 7.1 % Normal 0-10 [facility] Comment on above: Performed By: #### L 501.080 #### [facility] [address] [place], [address] Neutrophils/100 WBC (Bld) 60.7 % Normal 47-70 [facility] Comment on above: Performed By: #### L 501.080 #### [facility] [address] [place], [address] Nucleated RBC (Bld) [#/Vol] 0 10*3/uL Normal 0-5 [facility] Comment on above: Performed By: #### L 501.080 #### [facility] [address] [place], [address] Platelet mean volume (Bld) [Entitic vol] 12.5 fL High 6.2-12.0 [facility] Comment on above: Performed By: #### L 501.080 #### [facility] [address] [place], [address] Platelets (Bld) [#/Vol] 176 10*3/uL Normal 150-450 [facility] Comment on above: Performed By: #### L 501.080 #### [facility] [address] [place], [address] RBC (Bld) [#/Vol] 5.15 10*6/uL Normal 4.2-5.4 [facility] Comment on above: Performed By: #### L 501.080 #### [facility] [address] [place], [address] RDW SD 44.6 fl High 35.1-43.9 [facility] Comment on above: Performed By: #### L 501.080 #### [facility] [address] [place], [address] WBC (Bld) [#/Vol] 7.6 10*3/uL Normal 4.4-11.0 [facility] Comment on above: Performed By: #### L 501.080 #### [facility] [address] [place], [address] Chest 1 View (Portable)on Chest 1 View (Portable) [facility] Imaging Services [address] [place] [address] Chest 1 View (Portable) MR#: [id number] Acct: [id number] Name: SHIRA MERRITT Rep #: [id number] : 1940 F 85 From: Ja moeller MD PCP: Varinder Phoenix, MANUFACTURING ACCOUNTANT-C Status: REG ER Study: Chest 1 View (Portable) Date of Exam: 08/09/25 Exam# [id number] Ordering Dr: Kiet Menendez DO PROCEDURE: CHEST 1 VIEW (PORTABLE) 08/09/2025 REASON FOR EXAM: CHANGE IN MENTAL STATUS TECHNIQUE: Frontal view of the chest. COMPARISON: Prior study dated February 17, 2025. FINDINGS: Hardware: None Heart: The heart size is normal. Lungs: Hyperinflation. The lungs are clear. Bones: The bones are unremarkable. RAD/Chest 1 View (Portable) IMPRESSION: Hyperinflation. The lungs are clear. Reading Location: [id number] CC: IDALMIS Phoenix; Dr. Kiet Menendez DO Box Toe Cutter: Signed Normal [facility] Comprehensive Metabolic Prof ilon 08-09-2025 Albumin [Mass/Vol] 4.1 g/dL Normal 3.4-4.8 [facility] Comment on above: Performed By: #### L 3410.9992, L500.4050, L501.6710, L101.9900, L100.0100 #### [facility] [address] [place], [address] Albumin/Globulin [Mass ratio] 1.7 {ratio} Normal 0.9-2.4 [facility] Comment on above: Performed By: #### L 3410.9992, L500.4050, L501.6710, L101.9900, L100.0100 #### [facility] [address] [place], [address] ALK PHOS 73 U/L Normal 35-104 [facility] Comment on above: Performed By: #### L 3410.9992, L500.4050, L501.6710, L101.9900, L100.0100 #### [facility] [address] [place], [address] ALT [Catalytic activity/Vol] 9 U/L Normal <=34 [facility] Comment on above: Performed By: #### L 3410.9992, L500.4050, L501.6710, L101.9900, L100.0100 #### [facility] [address] [place], [address] AST [Catalytic activity/Vol] 17 U/L Normal <=31 [facility] Comment on above: Performed By: #### L 3410.9992, L500.4050, L501.6710, L101.9900, L100.0100 #### [facility] [address] [place], [address] Bilirubin [Mass/Vol] 0.44 mg/dL Normal 0.00-1.30 [facility] Comment on above: Performed By: #### L 3410.9992, L500.4050, L501.6710, L101.9900, L100.0100 #### [facility] [address] [place], [address] Calcium [Mass/Vol] 8.3 mg/dL Normal 7.6-11.0 [facility] Comment on above: Performed By: #### L 3410.9992, L500.4050, L501.6710, L101.9900, L100.0100 #### [facility] [address] [place], [address] Chloride [Moles/Vol] 107 mmol/L Normal 98-108 [facility] Comment on above: Performed By: #### L 3410.9992, L500.4050, L501.6710, L101.9900, L100.0100 #### [facility] [address] [place], [address] CO2 [Moles/Vol] 25.6 mmol/L Normal 21.0-32.0 [facility] Comment on above: Performed By: #### L 3410.9992, L500.4050, L501.6710, L101.9900, L100.0100 #### [facility] [address] [place], [address] GAP 10 Normal 5-15 [facility] Comment on above: Performed By: #### L 3410.9992, L500.4050, L501.6710, L101.9900, L100.0100 #### [facility] [address] [place], [address] Globulin (S) [Mass/Vol] 2.4 g/dL Normal 2.2-4.2 [facility] Comment on above: Performed By: #### L 3410.9992, L500.4050, L501.6710, L101.9900, L100.0100 #### [facility] [address] [place], [address] Potassium [Moles/Vol] 4.4 mmol/L Normal 3.3-5.1 [facility] Comment on above: Performed By: #### L 3410.9992, L500.4050, L501.6710, L101.9900, L100.0100 #### [facility] [address] [place], [address] Sodium [Moles/Vol] 143 mmol/L Normal 133-145 [facility] Comment on above: Performed By: #### L 3410.9992, L500.4050, L501.6710, L101.9900, L100.0100 #### [facility] [address] [place], [address] BUN/CRE 13.9 RATIO Normal 10-20 [facility] Comment on above: Performed By: #### L 3410.9992, L500.4050, L501.6710, L101.9900, L100.0100 #### [facility] [address] [place], [address] Creatinine [Mass/Vol] 0.91 mg/dL Normal 0.70-1.20 [facility] Comment on above: Performed By: #### L 3410.9992, L500.4050, L501.6710, L101.9900, L100.0100 #### [facility] [address] [place], [address] ECRCL 39.52 ml/min Low 50-250 [facility] Comment on above: Performed By: #### L 3410.9992, L500.4050, L501.6710, L101.9900, L100.0100 #### [facility] [address] [place], [address] GFR/1.73 sq M.predicted among non-blacks MDRD (S/P/Bld) [Vol rate/Area] 62 mL/min/{1.73_m2} Normal >60 [facility] Comment on above: Result Comment: mL/m in/1.73m2 CKD-EPI Creatinine Equation (2020) Performed By: #### L 3410.9992, L500.4050, L501.6710, L101.9900, L100.0100 #### [facility] [address] [place], [address] Glucose [Mass/Vol] 92 mg/dL Normal 70-99 [facility] Comment on above: Performed By: #### L 3410.9992, L500.4050, L501.6710, L101.9900, L100.0100 #### [facility] [address] [place], [address] T PROT 6.5 g/dL Normal 5.9-8.4 [facility] Comment on above: Performed By: #### L 3410.9992, L500.4050, L501.6710, L101.9900, L100.0100 #### [facility] [address] [place], [address] Urea nitrogen [Mass/Vol] 13 mg/dL Normal 4- [facility] Comment on above: Performed By: #### L 3410.9992, L500.4050, L501.6710, L101.9900, L100.0100 #### [facility] [address] [place], [address] Echo, Limited Studyon 2024 Echo, Limited Study [facility] [address] [place] [address] Echo, Limited Study 08/10/25 0957 MR#: [id number] Acct: [id number] Name: SHIRA MERRITT Rep #: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 the past year?: No [facility] Medical History Osteoarthritis Right anterior knee pain History of colon cancer Chronic anemia Ulcerative colitis C. difficile colitis Ulcerative colitis Severe malnutrition Cataract Arthritis Seasonal allergies History of colon cancer Surgical History History of appendectomy History of cholecystectomy H/O breast biopsy Surgical history of tubal ligation S/P partial colectomy S/P cholecystectomy Family History Mother No problems noted. Grandmother Arthritis Grandfather Arthritis Other Heart disease Social History household members: family housing: house Smoking Status: Never smoker alcohol intake: never substance use type: does not use what type of physical activity do you participate in: walking frequency: daily HPI HPI Details: SHIRA MERRITT, is a 85 F who presents to the office today for follow up. *[facility] hospitalization 08.10.21-08.12.21. [facility] ED for weakness and syncope. GI consulted 08.11.21 for management of diarrhea with a history of ulcerative colitis and colon cancer diagnosed in 2011. UC maintained with mesalamine at presentation. Colon cancer s/p right hemicolectomy. [facility] hospitalization 11.23.21-11.29.21 [facility] ED with lightheadedness and syncope. GI consulted same day for management of GIB, diarrhea, leukocytosis. Colonoscopy performed 11.27.21 and subsequently diagnosed with exacerbation of previously diagnosed UC. Treated with vancomycin, colestipol and Imuran.??? CT abd/pel 11.23.21 a somewhat collapsed gallbladder; multiple splenic punctate calcifications from prior granulomatous infection; moderate diffuse mural hyperenhancement throughout majority of colon with descending colon most notably involved; cecum, ascending and transverse colon showed mild wall thickening and mural stratification. Colonoscopy 11.27.21 severe pancolitis UC (Hunter Score 3); congested mucosa in distal ileum and terminal ileum. Biopsy results consistent with UC without dysplasia. Treated with vancomycin, Imuran, colestipol. Stool EP and C.Difficile taken during colonoscopy and WNL. OV 3.10.31 Continue prednisone 40mg, azathioprine 100mg and colestipol 2g. Recommend Stelara start. OV 02.03.22 Prednisone stopped. Continues with azathioprine and colestipol. Abdominal cramping and urgent watery/blood diarrhea have been a difficulty. Restart prednisone. [facility] hospitalization 02.03.22-02.13.22 [facility] ED following GI clinic presentation where WBC noted to be 25,000 with fever and chills and was admitted. GI consulted 02.04.22 and treated UC (steroids with Stelara start as outpatient) and new diagnosis of C.Difficile (vancomycin and IV metronidazole with later use of steroids). ? CT abd/pel 02.03.22 diffuse bowel wall thickening and enhancement with pericolonic fat stranding from ascending colon through RS colon. [facility] hospitalization 03.14.22-04.01.22 [facility] ED presentation 03.14.22 with worsening abdominal pain. Biochemical workup and imaging obtained and she was admitted for care of abdominal pain and acute encephalopathy secondary to recurrent C.difficile enterocolitis and recurrent UC flare and leukocytosis. ? CT abd/pel 03.15.22 small hiatal hernia; diffuse circumferential wall thickening and edema of entire colon, acute colitis; post-surgical changes of RS. OV 7. doing well following discharge. OV 10 intermittent days of loose stools. Doing well with Stelara. OV 1 doing well with use of Stelara. Intermittent loose stools. OV 8.15.24 pt reports that she is feeling well overall and denies GI symptoms of concern at this time. Pt reports regular BM; denies blood in stool. OV 2.25 pt reports that she is feeling well overall and denies GI symptoms of (more content not included)... Normal [facility] CNPNon 04-18-2025 CNPN Telephone (NEURMM) RENÉSHIRA ([id number]) 1940 F Date Time Provider Department 04/18/25 SAHARA AMARAL During your visit today, we recorded the following information about you: Marisel Galaviz MA 04/18/2025 9:16 AM Signed Received discharge summary from [facility] . Placed on Sahara Amaral desk for review Sahara Amaral APRN.[facility] 04/24/2025 3:40 PM Addendum Records reviewed. ED summaries from 2018 and 2021 not relevant. ED note from 02/17/25 with presentation to ED for AMS, feeling heavy and foggy and not responding to her son. Concern that patient was having vertigo episodes as sx could occur in AM when getting OOB. NIHSS completed in the ED with score of 2 due to heaviness in LLE with drift. No drift to LUE. Stroke team called. CT/A were completed in the ED. She was evaluated by neurology and NIHSS was 0. TNK not indicated. CTA head/neck without large vessel occlusion or high grade stenosis. CXR without focal consolidations. EKG SR. MRI brain 02/18/2025 demonstrating no acute intracranial abnormality, no acute infarct, hemorrhage, or extra-axial collection. Chronic microvascular ischemia and involutional changes. Echocardiogram 02/17/2025 demonstrating 70%. No thrombus noted. Per [facility] teleneurology: Patient was admitted for mild confusion/decreased responsiveness along with left-sided weakness and numbness she also reported feeling generalized heaviness and brain fog. Son reported that she was not responding. 02/19: Patient is doing well. Left lower leg weakness resolved. Patient was evaluated by neurologist Dr. Cullen and she thinks patient had TIA. Was given ASA 81 mg and Plavix 75 mg and then continue ASA 81 lifelong and Plavix 75 mg daily for 3 weeks. 30-day event monitor was ordered. Patient is on high intensity statin. A1c 5.5. Ashlie Mota RN 04/24/2025 3:43 PM Signed Call to patient. Informed her of message from provider. She verbalized understanding. Allergies As of Date: 04/18/2025 Noted Allergy Reaction SULFA (SULFONAMIDE ANTIBIOTICS) 02/23/2005 Date Reviewed: 03/26/2025 Reviewed by: Sahara Amaral APRN.[employer] REPRESENTATIVE - Fully Assessed Reason for Visit: Patient Update [1234] Prescriptions as of 04/24/2025 - aspirin 81 mg chewable tablet Take 81 mg by mouth daily with breakfast. - atorvastatin (LIPITOR) 40 mg tablet Take 40 mg by mouth daily at bedtime. - clopidogrel (PLAVIX) 75 mg tablet (Discontinued) Take 75 mg by mouth once daily. 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] 02/23/2005 Encounter Status:Closed by MARISEL GALAVIZ on 04/18/25 Normal [facility] CNOVon 03-26-2025 CNOV Office Visit (NEURMM ) SHIRA MERRITT ([id number]) 1940 F Date Time Provider Department 03/26/25 1:30 PM SAHARA AMARAL NEURSHAHRAM During your visit today, we recorded the following information about you: Pulse Respiration Blood pressure 67/minute 16/minute 163/83 Sahara Amaral APRN.CNP 03/26/2025 3:51 PM Signed [facility] New Patient Evaluation CHIEF COMPLAINT: TIA Shira Merritt is a 84 year old accompanied by her son Camron. Consult was requested by self for an opinion regarding above CC. My final impression and recommendations will be communicated back to the requesting physician by way of the shared medical record or fax. March 25, 2025 HPI: Ms. Merirtt presents today secondary to issues of TIA. [place] like she was on a roller coaster. Had a minor headache. The longer it goes the worse it gets. Has had a couple times in the past. Has come and gone. 4-5 years ago was first episode. Can go months without episode. Then suddenly returns without trigger. Can be reading or watching TV. Doesn't happen with a position change or movement. Usually all present in the same manner. Starts with a mild headache. If she takes an ASA sometimes sx improve. But if not she will then become weak in the knees and then feels like she is on a roller coaster. Feels she could maybe pass out. Usually subside within 24 hours. Never longer. MATTHEWS goes away at the same time. Doesn't always have a headache with sx. Has been at least once per year. States she always attributed this to when the trees start budding; thought allergies. Sometimes headaches with "allergy alerts." Takes ASA for these. No spinning. No double vision. No speech changes. No unilateral weakness. No loss of sensation. MATTHEWS never becomes more severe. Most recent episode was Mothers day weekend. Happened suddenly. Went to the ED. Was admitted. States arms and legs felt heavy at that time; bilateral. After episode was over she felt like something was holding her down. States she had an XR and CT scan. Unsure exactly what testing she had. Was admitted for two days. States she doesnot know if she had an MRI. Maybe had one the next day. States she doesn't think it showed anything to be worried about. She has been taking ASA 81mg for many years. Does not take cholesterol medication. No BP medication. Plavix is listed in chart but she does not take it. When looking at her medication list she has a prescription for atorvastatin. States she just got this from the hospital recently. Does not take BP medication. States it is high today d/t walking and being in the hospital. No migraine hx. Unsure about family migraine hx. Unsure about paternal neuro hx. Per ENT on 02/23/2005: She has had headaches throughout most of her life, as well as some migraine type features, including eye changes and migraine type pain and pressure. 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 We feel as though this has probably been there for some time now and does not appear to be destructive in nature. It certainly does not explain her visual changes and/or general head pressure and pain. We feel this is likely a headache type variant, which we should initially attempt to treat before making a definitive decision about resection of a lyle apex lesion. RECOMMENDATIONS: 1. Referral to Headache Clinic, either here or closer to home for trial of medications to treat her headaches. 2. Again, no sinusitis was noted, therefore would not recommend she be treated with antibiotics for this problem. 3. Followup of her lyle apex lesion after her headache workup. No ear pain, ear hx, hearing loss, tinnitus. Last eye appt was 2 years ago. Alcohol: Denies Tobacco: Denies Drug: Denies No past medical history on file. No past surgical history on file. Current Outpatient Medications on File Prior to Visit Medication Sig TOPROL XL 25 MG ORAL TB24 (Patient not taking: Reported on 02/19/2024) No current facility-administered medications on file prior to visit. Social History Tobacco Use Smoking status: Never Smokeless tobacco: Never ALLERGIES Allergen Reactions Sulfa (Sulfonamide * Review of Systems: Constitutional: denies fever, weight loss, loss of appetite ENT: denies loss of hearing, + vertigo Vision: denies blurring vison, double vision/diplopia Dermatologic: denies rash Cardiopulmonary: denies chest pain, palpitations Respiratory: denies shortness of breath GI: denies recent diarrhea, constipation : denies incontinence Musculoskeletal: denies weakness Back/spine: denies low back or cervical pains (occasionally) Neuro: denies tremors, loss of feeling, dizziness, seizure, blackout, paresthesia, facial paresthesia, facial weakness, difficulty in speech, slurring of words, dysarthria, dysphagia, memory (more content not included)... Normal [facility] Discharge Instructionon 02-07 Discharge Instruction [facility] Medical Records Department [address] [place] [address] Instructions for Home/Discharge Instructions 02/19/25 0853 MR#: [id number] Acct: [id number] Name: SHIRA MERRITT Rep #: [id number] : 1940 84 From: Chip Fulton MD PCP: IDALMIS Hollis Status:ADM COREY Discharge Instructions Diet Discharge Diet: 2000 mg Sodium Diet DC O2, CPAP, BIPAP needs Home O2 Discharge instructions: No Dressing / Incision Discharge Activity: Return to Normal Activity Weight Bearing Status: Weight bearing as tolerated Dressing / Incision Call your doctor if you observe: Fever of 101 or Higher, Coldness, Increased Pain, Numbness or Tingling, Change in Color, Inability to urinate, Inability to have a bowel movement, Shortness of b reath, Dizziness, Fainting spells, Swelling in the ankles, Chest pain, Prolonged hiccupping, Increased palpitations (irregular heartbeat) and Calf discomfort Follow Up Care When: IN 2 WEEKS Test Results: Test results from this visit will be discussed in further detail at your follow-up appointment, if applicable. Discharge Plan Admission Admit Date/Time: 02/17/25 14:37 Primary Reason for Your Visit: Possible TIA Attending Provider: Chip Fulton Primary Care Provider: Varinder Phoenix Consulting Providers: Sandy Paige Discharge Orders/Prescriptions Prescriptions: New atorvastatin 40 mg Tablet 40 mg PO QHS 30 Days Qty: 30 2RF clopidogrel 75 mg Tablet 75 mg PO DAILY 21 Days Qty: 21 0RF aspirin 81 mg Tablet,Chewable 81 mg PO BREAKFAST 30 Days Qty: 30 3RF Continued acetaminophen 500 mg capsule 1,000 mg PO Q6H PRN (Reason: fever or pain) Stelara 90 mg/mL syringe 90 mg subcut Q8W 360 Days Qty: 1 6RF Rx Instructions: Inject one syringe SQ every 8 weeks starting 8 weeks after induction infusion. Other Ambulatory Orders: 30 Day Event Recorder Preventi (Urgent) Timeframe: 1 Day Facility: [facility] - Location: Cardiovascular Services Ordered By: Dr. Chip Fulton Referrals / Follow Up: Dinh Dubose MD [Non-Staff -Ordering Privileges] - Within 1 Month (For clinical suspicion of TIA) Varinder Phoenix, IDALMIS [Primary Care Provider] - Disposition Disposition (needs filled in before D/C Order can be placed): Home, Self Care 02/19/25 1210 Chip Fulton MD CC: IDALMIS Phoenix; Dr. Sandy Paige MD Signed Normal [facility] Absolute lymphocyte countOrd ered By: Sandy Paige on 02-18-2025 Lymphocytes Auto (Unsp spec) [#/Vol] 3.10 10*3/uL 0.83-4.51 [facility] Absolute neutrophil countOrd ered By: Sandy Paige on 02-18-2025 Neutrophils (Bld) [#/Vol] 4.6 10*3/uL 2.0-7.7 [facility] Anion gap in Serum or Plasma Ordered By: Sandy Paige on 02-18-2025 Anion gap [Moles/Vol] 11 mmol/L 02-21 [facility] Automated lymphocyte count a s percentage of total leukocytesOrdered By: Sandy Paige on 02-18-2025 Lymphocytes/100 WBC Auto (Unsp spec) 35.7 % [facility] BUN/creatinine ratioOrdered By: Sandy Paige on 02-18-2025 Urea nitrogen/Creatinine [Mass ratio] 14.1 mg/mg 07-29 [facility] Basic Metabolic Profile (BMP )on 02-18-2025 BUN/CRE 14.1 RATIO Normal 07-29 [facility] Comment on above: Order Comment: Comme nts: NPO at [place] prior to lipid panelBEFORE PATIENT LEFT ED WAS DUR 14;46 ED STATED THAT IT WOULDBE DRAWN PRIOR LAB DUE AT 15:40 Performed By: #### L 3410.9992, L500.4050, L501.6710, L101.9900, L100.0100 #### [facility] [address] [place], [address] Calcium [Mass/Vol] 8.9 mg/dL Normal 7.6-11.0 [facility] Comment on above: Order Comment: Comme nts: NPO at [place] prior to lipid panelBEFORE PATIENT LEFT ED WAS DUR 14;46 ED STATED THAT IT WOULDBE DRAWN PRIOR LAB DUE AT 15:40 Performed By: #### L 3410.9992, L500.4050, L501.6710, L101.9900, L100.0100 #### [facility] [address] [place], [address] Chloride [Moles/Vol] 106 mmol/L Normal 98-108 [facility] Comment on above: Order Comment: Comme nts: NPO at [place] prior to lipid panelBEFORE PATIENT LEFT ED WAS DUR 14;46 ED STATED THAT IT WOULDBE DRAWN PRIOR LAB DUE AT 15:40 Performed By: #### L 3410.9992, L500.4050, L501.6710, L101.9900, L100.0100 #### [facility] [address] [place], [address] CO2 [Moles/Vol] 23.3 mmol/L Normal 21.0-32.0 [facility] Comment on above: Order Comment: Comme nts: NPO at [place] prior to lipid panelBEFORE PATIENT LEFT ED WAS DUR 14;46 ED STATED THAT IT WOULDBE DRAWN PRIOR LAB DUE AT 15:40 Performed By: #### L 3410.9992, L500.4050, L501.6710, L101.9900, L100.0100 #### [facility] [address] [place], [place], [address] Creatinine [Mass/Vol] 0.87 mg/dL Normal 0.70-1.20 [facility] Comment on above: Order Comment: Comme nts: NPO at [place] prior to lipid panelBEFORE PATIENT LEFT ED WAS DUR 14;46 ED STATED THAT IT WOULDBE DRAWN PRIOR LAB DUE AT 15:40 Performed By: #### L 3410.9992, L500.4050, L501.6710, L101.9900, L100.0100 #### [facility] [address] [place], [address] ECRCL 38.64 ml/min Low 50-250 [facility] Comment on above: Order Comment: Comme nts: NPO at [place] prior to lipid panelBEFORE PATIENT LEFT ED WAS DUR 14;46 ED STATED THAT IT WOULDBE DRAWN PRIOR LAB DUE AT 15:40 Performed By: #### L 3410.9992, L500.4050, L501.6710, L101.9900, L100.0100 #### [facility] [address] [place], [address] GAP 11 Normal 5-15 [facility] Comment on above: Order Comment: Comme nts: NPO at [place] prior to lipid panelBEFORE PATIENT LEFT ED WAS DUR 14;46 ED STATED THAT IT WOULDBE DRAWN PRIOR LAB DUE AT 15:40 Performed By: #### L 3410.9992, L500.4050, L501.6710, L101.9900, L100.0100 #### [facility] [address] [place], [address] GFR/1.73 sq M.predicted among non-blacks MDRD (S/P/Bld) [Vol rate/Area] 66 mL/min/{1.73_m2} Normal >60 [facility] Comment on above: Order Comment: Comme nts: NPO at [place] prior to lipid panelBEFORE PATIENT LEFT ED WAS DUR 14;46 ED STATED THAT IT WOULDBE DRAWN PRIOR LAB DUE AT 15:40 Result Comment: mL/m in/1.73m2 CKD-EPI Creatinine Equation (2020) Performed By: #### L 3410.9992, L500.4050, L501.6710, L101.9900, L100.0100 #### [facility] [address] [place], [address] Glucose [Mass/Vol] 93 mg/dL Normal 70-99 [facility] Comment on above: Order Comment: Comme nts: NPO at [place] prior to lipid panelBEFORE PATIENT LEFT ED WAS DUR 14;46 ED STATED THAT IT WOULDBE DRAWN PRIOR LAB DUE AT 15:40 Performed By: #### L 3410.9992, L500.4050, L501.6710, L101.9900, L100.0100 #### [facility] [address] [place], [address] Potassium [Moles/Vol] 4.0 mmol/L Normal 3.3-5.1 [facility] Comment on above: Order Comment: Comme nts: NPO at [place] prior to lipid panelBEFORE PATIENT LEFT ED WAS DUR 14;46 ED STATED THAT IT WOULDBE DRAWN PRIOR LAB DUE AT 15:40 Performed By: #### L 3410.9992, L500.4050, L501.6710, L101.9900, L100.0100 #### [facility] [address] [place], [address] Sodium [Moles/Vol] 140 mmol/L Normal 133-145 [facility] Comment on above: Order Comment: Comme nts: NPO at [place] prior to lipid panelBEFORE PATIENT LEFT ED WAS DUR 14;46 ED STATED THAT IT WOULDBE DRAWN PRIOR LAB DUE AT 15:40 Performed By: #### L 3410.9992, L500.4050, L501.6710, L101.9900, L100.0100 #### [facility] [address] [place], [address] Urea nitrogen [Mass/Vol] 12 mg/dL Normal 4-19 [facility] Comment on above: Order Comment: Comme nts: NPO at [place] prior to lipid panelBEFORE PATIENT LEFT ED WAS DUR 14;46 ED STATED THAT IT WOULDBE DRAWN PRIOR LAB DUE AT 15:40 Performed By: #### L 3410.9992, L500.4050, L501.6710, L101.9900, L100.0100 #### [facility] [address] [place], [address] Basophil percentageOrdered B y: Sandy Paige on 02-18-2025 Basophils/100 WBC (Bld) 1.6 % High 0-1 [facility] Brain without Contraston Brain without Contrast [facility] Imaging Services [address] [place] [address] Brain without Contrast MR#: [id number] Acct: [id number] Name: SHIRA MERRITT Rep #: [id number] : 1940 F 84 From: Thien tan MD PCP: IDALMIS Hollis Status: ADM COREY Study: Brain without Contrast Date of Exam: 02/18/25 Exam# [id number] Ordering Dr: Sandy Paige MD PROCEDURE: BRAIN WITHOUT CONTRAST 02/18/2025 REASON FOR EXAM: TIA/CVA R/O, LEFT LOWER EXTREMITY HEAVINESS/WEAKNE TECHNIQUE: Noncontrast brain MRI. Multiplanar and multisequence images were obtained. FINDINGS: BRAIN/PARENCHYMA: No evidence of acute infarction or acute intracranial hemorrhage. There are subcortical and periventricular white matter FLAIR hyperintensities, likely related to chronic microvascular ischemic disease. EXTRA-AXIAL SPACES: No abnormal extra-axial fluid collections. Patent basal cisterns and foramen magnum. MIDLINE SHIFT: None. VENTRICLES: No hydrocephalus. SCALP SOFT TISSUES CALVARIUM: No significant abnormality. VISUALIZED SINUSES MASTOIDS: No air-fluid levels in the paranasal sinuses. The mastoid air cells are clear. ARTERIAL FLOW VOIDS: Preserved major arterial flow voids indicating gross patency. MRI/Brain without Contrast IMPRESSION: No acute intracranial abnormality; no acute infarct, intracranial hemorrhage or extra-axial collection. Chronic microvascular ischemia and involutional changes. Reading Location: [facility] CC: MANUFACTURING ACCOUNTANT-C Varinder Phoenix; Dr. Sandy Paige MD Box Toe Cutter: Signed Normal [facility] CBC W/Diff, Automatedon 02-07 Absolute Lymph 3.10 X10 3/uL Normal 0.83-4.51 [facility] Comment on above: Performed By: #### L 3410.9992, L500.4050, L501.6710, L101.9900, L100.0100 #### [facility] [address] [place], [address] Absolute Neut 4.6 X10 3/uL Normal 2.0-7.7 [facility] Comment on above: Performed By: #### L 3410.9992, L500.4050, L501.6710, L101.9900, L100.0100 #### [facility] [address] [place], [address] Basophils/100 WBC (Bld) 1.6 % High 0-1 [facility] Comment on above: Performed By: #### L 3410.9992, L500.4050, L501.6710, L101.9900, L100.0100 #### [facility] [address] [place], [address] Eosinophils/100 WBC (Bld) 1.7 % Normal 0-5 [facility] Comment on above: Performed By: #### L 3410.9992, L500.4050, L501.6710, L101.9900, L100.0100 #### [facility] [address] [place], [address] Erythrocyte distribution width (RBC) [Ratio] 13.5 % Normal 11.6-14.6 [facility] Comment on above: Performed By: #### L 3410.9992, L500.4050, L501.6710, L101.9900, L100.0100 #### [facility] [address] [place], [address] Hematocrit (Bld) [Volume fraction] 45.4 % Normal 37-47 [facility] Comment on above: Performed By: #### L 3410.9992, L500.4050, L501.6710, L101.9900, L100.0100 #### [facility] [address] [place], [address] Hemoglobin (Bld) [Mass/Vol] 14.9 g/dL Normal 12.0-15.0 [facility] Comment on above: Performed By: #### L 3410.9992, L500.4050, L501.6710, L101.9900, L100.0100 #### [facility] [address] [place], [address] IG% 0.100 Normal 0.0-0.9 [facility] Comment on above: Result Comment: IG% - Immature Granulocytes (promyelocytes, myelocytes and metamyelocytes) > 1% indicates that a LEFT SHIFT is Present. Performed By: #### L 3410.9992, L500.4050, L501.6710, L101.9900, L100.0100 #### [facility] [address] [place], [address] Lymphocytes/100 WBC (Bld) 35.7 % Normal 19-41 [facility] Comment on above: Performed By: #### L 3410.9992, L500.4050, L501.6710, L101.9900, L100.0100 #### [facility] [address] [place], [address] MCH (RBC) [Entitic mass] 29.4 pg Normal 27.0-32.0 [facility] Comment on above: Performed By: #### L 3410.9992, L500.4050, L501.6710, L101.9900, L100.0100 #### [facility] [address] [place], [address] MCHC (RBC) [Mass/Vol] 32.8 g/dL Normal 32-36 [facility] Comment on above: Performed By: #### L 3410.9992, L500.4050, L501.6710, L101.9900, L100.0100 #### [facility] [address] [place], [address] MCV (RBC) [Entitic vol] 89.5 fL Normal 81-99 [facility] Comment on above: Performed By: #### L 3410.9992, L500.4050, L501.6710, L101.9900, L100.0100 #### [facility] [address] [place], [address] Monocytes/100 WBC (Bld) 7.7 % Normal 0-10 [facility] Comment on above: Performed By: #### L 3410.9992, L500.4050, L501.6710, L101.9900, L100.0100 #### [facility] [address] [place], [address] Neutrophils/100 WBC (Bld) 53.2 % Normal 47-70 [facility] Comment on above: Performed By: #### L 3410.9992, L500.4050, L501.6710, L101.9900, L100.0100 #### [facility] [address] [place], [address] Nucleated RBC (Bld) [#/Vol] 0 10*3/uL Normal 0-5 [facility] Comment on above: Performed By: #### L 3410.9992, L500.4050, L501.6710, L101.9900, L100.0100 #### [facility] [address] [place], [address] Platelet mean volume (Bld) [Entitic vol] 12.2 fL High 6.2-12.0 [facility] Comment on above: Performed By: #### L 3410.9992, L500.4050, L501.6710, L101.9900, L100.0100 #### [facility] [address] [place], [address] Platelets (Bld) [#/Vol] 173 10*3/uL Normal 150-450 [facility] Comment on above: Performed By: #### L 3410.9992, L500.4050, L501.6710, L101.9900, L100.0100 #### [facility] [address] [place], [address] RBC (Bld) [#/Vol] 5.07 10*6/uL Normal 4.2-5.4 [facility] Comment on above: Performed By: #### L 3410.9992, L500.4050, L501.6710, L101.9900, L100.0100 #### [facility] [address] [place], [address] RDW SD 44.3 fl High 35.1-43.9 [facility] Comment on above: Performed By: #### L 3410.9992, L500.4050, L501.6710, L101.9900, L100.0100 #### [facility] [address] [place], [address] WBC (Bld) [#/Vol] 8.7 10*3/uL Normal 4.4-11.0 [facility] Comment on above: Performed By: #### L 3410.9992, L500.4050, L501.6710, L101.9900, L100.0100 #### [facility] [address] [place], [address] Calculated very low density lipoprotein (VLDL) cholesterol measurementOrdered By: Sandy Paige on 02-18-2025 Calculated very low density lipoprotein (VLDL) cholesterol measurement 12 mg/dL 5-40 [facility] Carbon dioxide, total [Moles /volume] in Central venous bloodOrdered By: Sandy Paige on 02-18-2025 CO2 [Moles/Vol] 23.3 mmol/L 21.0-32.0 [facility] Chloride assayOrdered By: Angel Paige on 02-18-2025 Chloride [Moles/Vol] 106 mmol/L 98-108 [facility] Echocardiogram study reportO rdered By: Aba Arce on 02-18-2025 Study report [facility] Services [address] [place] [address] Echo Complete 02/18/25 1044 MR#: [id number] Acct: [id number] Name: SHIRA MERRITT Rep #:[id number] : 1940 84 From: Aba Obrien Attending Dr: Dr. Chip Fulton MD Status: ADM COREY Ordering Dr: Sandy Paige MD Date: Location: [facility] Sex: F C Admitted: 02/17/25 Reason For Study Reason For Study: Tia/Stroke Procedure This was a 2D Doppler, Color Flow transthoracic echocardiogram. Exam performed portable in patient room. Left Ventricle Normal left ventricle. Left ventricular systolic function is normal. The left ventricular ejection fraction is 70 %. Stage 1 diastolic dysfunction. No regional wall motion abnormalities noted. Right Ventricle Normal RV size. Normal systolic function. Tricuspid Valve Normal tricuspid valve. Mild (1+) tricuspid valve insufficiency. Pulmonary artery systolic pressure is 28 mmHg. Aortic Valve Trisinus/trileaflet aortic valve. Pulmonic Valve Normal pulmonic valve. Great Vessels Normal aortic root. The pulmonary artery is normal size. Pericardium/Pleural No pericardial effusion. MMode/2D Measurements & Calculations LVIDd: 3.3 cm IVSd: 1.1 cm Ao root diam: 3.2 cm LVIDs: 1.5 cm LVPWd: 0.95 cm RVDd: 2.5 cm FS: 55.5 % LAV(MOD-bp): 17.7 ml SV(MOD-sp4): 17.3 ml LVAd ap4: 13.8 cm2 LAV(MOD-bp) Indexed: 11.3 ml/m2 LVLd ap4: 6.4 cm SI(MOD-sp4): 11.0 ml/m2 LAV(MOD-sp2): 12.2 ml EDV(MOD-sp4): 25.1 ml LAV(MOD-sp4): 17.2 ml EDV(sp4-el): 25.5 ml LVAs ap4: 6.6 cm2 LVLs ap4: 5.0 cm ESV(MOD-sp4): 7.7 ml ESV(sp4-el): 7.3 ml EF(MOD-sp4): 69.1 % EF(sp4-el): 71.3 % SV(sp4-el): 18.2 ml LA dimension(2D): 2.5 cm LA A4 area: 9.9 cm2 RA A4 area: 8.4 cm2 Time Measurements MV dec time: 0.42 sec Doppler Measurements & Calculations MV E max pérez: 55.0 cm/sec Lat Peak E' Pérez: 6.8 cm/sec Med Peak E' Pérez: 6.5 cm/sec MV A max pérez: 86.4 cm/sec E/E' lat: 8.1 E/E' med: 8.5 MV E/A: 0.64 Ao V2 max: 110.4 cm/sec LV V1 max: 81.5 cm/sec MV dec slope: 131.2 cm/sec2 Ao max P.9 mmHg LV V1 max P.7 mmHg Ao V2 mean: 81.8 cm/sec Ao mean P.8 mmHg Ao V2 VTI: 24.1 cm TR max pérez: 246.8 cm/sec TR max P.4 mmHg ECHO/Echo Complete Interpretation Summary Normal left ventricle. Left ventricular systolic function is normal. The left ventricular ejection fraction is 70 %. Stage 1 diastolic dysfunction. Ordering Physician: Sandy Paige Referring Physician: Varinder Phoenix Performed By: Yani Farah RDCS, RVT 02/18/251750 Date _ Aba Arce MD CC: MANUFACTURING ACCOUNTANT-C Varinder Phoenix; Dr. Sandy Paige MD; Dr. Chip Fulton MD ~ Date Dictated: 02/18/25 1044 Date Transcribed: 02/18/251750 Box Toe Cutter: Signed [facility] Work Phone: Electrocardiogram reportOrde red By: Arthur Armendariz on 02-18-2025 EKG study [facility] Cardiovascular Services [address] [place] [address] 12 Lead EKG 02/17/25 1130 MR#: [id number] Acct: [id number] Name: RENÉSHIRA Rep #:[id number] : 1940 84 From: Arthur chavez MD Attending Dr: Dr. Chip Fulton MD Status: ADM COREY Ordering Dr: Reynold Win MD Date: 02/17/25 Location: [facility] Sex: F C Admitted: 02/17/25 Test Reason : WEAKNESS Blood Pressure : */* mmHG Vent. Rate : 55 BPM Atrial Rate : 55 BPM P-R Int : 126 ms QRS Dur : 72 ms QT Int : 460 ms P-R-T Axes : 66 73 94 degrees QTcB Int : 440 ms Sinus bradycardia Otherwise normal ECG Confirmed by Arthur Armendariz ([id number]), script editor TAYLA OROZCO ([id number]) on 59:18:07 AM Referred By: Sandy Paige Confirmed By: Arthur Armendariz 02/18/25 0918 Date _ Arthur Armendariz MD CC: MANUFACTURING ACCOUNTANT-Roxanne Phoenix; Dr. Reynold Win MD; Dr. Sandy Paige MD; Dr. Shira MD ~ Signed [facility] Other Phone: Eosinophil percentageOrdered By: Sandy Paige on 02-18-2025 Eosinophils/100 WBC (Bld) 1.7 % 0-5 [facility] Erythrocyte distribution wid th ratioOrdered By: Sandy Paige on 02-18-2025 Erythrocyte distribution width (RBC) [Ratio] 13.5 % 11.6-14.6 [facility] Erythrocyte distribution wid th standard deviationOrdered By: Sandy Paige on 02-18-2025 Erythrocyte distribution width (RBC) [Ratio] 44.3 fl High 35.1-43.9 [facility] Free T3on 02-18-2025 Free T3 [Mass/Vol] 3.3 pg/mL Normal 2.18-3.98 [facility] Comment on above: Order Comment: Comme nts: NPO at [place] prior to lipid panelBEFORE PATIENT LEFT ED WAS DUR 14;46 ED STATED THAT IT WOULDBE DRAWN PRIOR LAB DUE AT 15:40 Performed By: #### L 3410.9992, L500.4050, L501.6710, L101.9900, L100.0100 #### [facility] [address] [place], [place], [id number] Free [id number] By: Sandy nguyen on 02-18-2025 Free T3 [Mass/Vol] 3.3 pg/mL 2.18-3.98 [facility] Glomerular filtration rate ( GFR) estimation/1.73 sq m using serum, plasma, or whole bOrdered By: Sandy Paige on 02-18-2025 GFR/1.73 sq M.predicted among non-blacks MDRD (S/P/Bld) [Vol rate/Area] 66 mL/min/{1.73_m2} >60 [facility] Comment on above: mL/min/1.73m2 CKD-EP I Creatinine Equation (2020) Hematocrit Auto (Bld) [Volum e fraction]Ordered By: Sandy Paige on 02-18-2025 Hematocrit (Bld) [Volume fraction] 45.4 % 37-47 [facility] Hemoglobin A1con 02-18-2025 HbA1c (Bld) [Mass fraction] 5.5 % Normal <=5.6 [facility] Comment on above: Result Comment: Norm al < 5.7 % Prediabetic 5.7 - 6.4 % Diabetic >or= 6.5 % Please note range changes. Performed By: #### L 3410.9992, L500.4050, L501.6710, L101.9900, L100.0100 #### [facility] [address] [place], [place], [address] Hemoglobin A1c percentageOrd ered By: Sandy Paige on 02-18-2025 HbA1c (Bld) [Mass fraction] 5.5 % <5.7 [facility] Comment on above: Normal < 5.7 % Predi abetic 5.7 - 6.4 % Diabetic >or= 6.5 % Please note range changes. Hemoglobin measurementOrdere d By: Sandy Paige on 02-18-2025 Hemoglobin (Bld) [Mass/Vol] 14.9 g/dL 12.0-15.0 [facility] Immature granulocytes/100 WB C Auto (Bld)Ordered By: Sandy Paige on 02-18-2025 Immature granulocytes/100 WBC (Bld) 0.100 % 0.0-0.9 [facility] Comment on above: IG% - Immature Granu locytes (promyelocytes, myelocytes and metamyelocytes) > 1% indicates that a LEFT SHIFT is Present. LDL calc ser/plasOrdered By: Sandy Paige on 02-18-2025 Cholesterol in LDL [Mass/Vol] 108 mg/dL [facility] Comment on above: Qvzqmzccyk=265-207 m g/dL & Higher Kycl=451 mg/dL or greater Lipid Profileon 02-18-2025 CHOL:HDL 2.94 Normal [facility] Comment on above: Order Comment: Comme nts: NPO at [place] prior to lipid panelBEFORE PATIENT LEFT ED WAS DUR 14;46 ED STATED THAT IT WOULDBE DRAWN PRIOR LAB DUE AT 15:40 Performed By: #### L 3410.9992, L500.4050, L501.6710, L101.9900, L100.0100 #### [facility] [address] [place], [address] Cholesterol [Mass/Vol] 182 mg/dL Normal <=200 [facility] Comment on above: Order Comment: Comme nts: NPO at [place] prior to lipid panelBEFORE PATIENT LEFT ED WAS DUR 14;46 ED STATED THAT IT WOULDBE DRAWN PRIOR LAB DUE AT 15:40 Result Comment: Chol esterol level, Desirable <200 mg/dL Borderline high cholesterol 200-239 mg/dL High cholesterol >=240 mg/dL Recommendations of the NCEP Adult Treatment Panel for the following risk-cutoff thresholds for the [place] population. Performed By: #### L 3410.9992, L500.4050, L501.6710, L101.9900, L100.0100 #### [facility] [address] [place], [address] Cholesterol in HDL [Mass/Vol] 62 mg/dL Normal [facility] Comment on above: Order Comment: Comme nts: NPO at [place] prior to lipid panelBEFORE PATIENT LEFT ED WAS DUR 14;46 ED STATED THAT IT WOULDBE DRAWN PRIOR LAB DUE AT 15:40 Result Comment: Cat onal Cholesterol Education Program (NCEP) guidelines: <40 mg/dL: Low HDL-cholesterol (major risk factor for CHD) >= 60 mg/dL: High HDL-cholesterol (negative risk factor for CHD) HDL-cholesterol is affected by a number of factors, e.g. smoking, exercise, hormones, sex and age. Performed By: #### L 3410.9992, L500.4050, L501.6710, L101.9900, L100.0100 #### [facility] [address] [place], [address] Cholesterol in LDL [Mass/Vol] 108 mg/dL Normal [facility] Comment on above: Order Comment: Comme nts: NPO at [place] prior to lipid panelBEFORE PATIENT LEFT ED WAS DUR 14;46 ED STATED THAT IT WOULDBE DRAWN PRIOR LAB DUE AT 15:40 Result Comment: Bord nqtncl=975-843 mg/dL Higher Yuwx=337 mg/dL or greater Performed By: #### L 3410.9992, L500.4050, L501.6710, L101.9900, L100.0100 #### [facility] [address] [place], [address] Cholesterol in VLDL [Mass/Vol] 12 mg/dL Normal 5-40 [facility] Comment on above: Order Comment: Comme nts: NPO at [place] prior to lipid panelBEFORE PATIENT LEFT ED WAS DUR 14;46 ED STATED THAT IT WOULDBE DRAWN PRIOR LAB DUE AT 15:40 Performed By: #### L 3410.9992, L500.4050, L501.6710, L101.9900, L100.0100 #### [facility] [address] [place], [address] Triglyceride [Mass/Vol] 61 mg/dL Normal [facility] Comment on above: Order Comment: Comme nts: NPO at [place] prior to lipid panelBEFORE PATIENT LEFT ED WAS DUR 14;46 ED STATED THAT IT WOULDBE DRAWN PRIOR LAB DUE AT 15:40 Result Comment: The drugs N-Acetylcysteine and Metamizole may falsely depress this assay. Normal range: <150 mg/dL Borderline High: 150-199 mg/dL High: 200-499 mg/dL Very High: >500 mg/dL Performed By: #### L 3410.9992, L500.4050, L501.6710, L101.9900, L100.0100 #### [facility] [facility] [address] [place], [address] MCV (mean corpuscular volume ) determinationOrdered By: Sandy Paige on 02-18-2025 MCV (RBC) [Entitic vol] 89.5 fL 81-99 [facility] MR/CON.PCM.NEon 02-18-2025 MR/CON.PCM.NE [facility] Medical Records Department [address] [place] [address] Consultation - Neurology 02/18/25 1410 MR#: [id number] Acct: [id number] Name: SHIRA MERRITT Rep #: [id number] : 1940 84 From: Amanda Cullen MD PCP: IDALMIS Hollis Status:ADM COREY Location: [place] [address] Assessment and Plan: Neuro Assessment/Plan SHIRA MERRITT is a 84 F with a past medical history of UC, being evaluated by Teleneurology for transient confusion and L leg weakness, largely resolved. Imaging is benign, the clinical history is suggestive of TIA at this time Diagnosis: TIA Plan: - Anti-platelet medication: Plavix 300mg now, then [id number] + Plavix 75mg daily for 21 days, then Aspirin 81 mg daily only thereafter - Occupational/ Physical therapy consults - SBP goal normotensive< 140/80 - DVT prophylaxis with SCDs and heparin SQ - Vascular risk factor modification. The following are the recommended guidelines: LDL Goal < 70 agree with lipitor 40mg as LDL 108, A1C 5.5 Smoking Cessation Diabetes Management half-way blood pressure control should achieve <130/80 mmHg. BP management should aim to achieve residential contorl in a reasonable amount of time, taking into consideration the individual patient's requirements and characteristics. Weight Management: Goal for BMI is 18.5 -24.9 kg/m2 Alcohol: No more than 2 drinks/day for men or 1 drink/day for non- women - Promote lifestyle modification: weight control, physical activity, moderation of alcohol intake, moderate sodium intake. Followup with PCP in 1-2 weeks, and in Neurology clinic in 6-12 weeks I personally attended this patient and spent a total time of 45minutes evaluating this patient including clinical assessment, review of chart, medical history imaging, and determining appropriate treatment and workup. HPI Consult Data Date of Consult: 02/18/25 HPI Narrative HPI Narrative: SHIRA MERRITT, is an 84y/o F w/ hx of who presented to [facility] ED 02/17/25 d/t weakness and AMS. Pt woke up earlier and got out of bed, she remembers sitting on the couch and at some point felt heavy all over and a little foggy. Son reported she was not responding so he called 911. Patient reports feeling completely fine now. Son reported that when patient got up this morning she went from her bathroom to the living room and looked like she was wobbly and off balance and was holding onto things, he asked if she needed to go to the hospital and she said no but when she sat down she put her head in her hands and looked like she was falling over. Son was yelling at her and she was not responding so he called 911. By the time EMS arrived she felt better. Reportedly this has happened before and usually occurs in the morning right after she gets out of bed but this is the worst that it has happened. Between patient getting to the ED and evaluation she developed left lower extremity weakness and felt her left arm was heavy, her repeat NIH was 2 so there was a stroke on the ED. TNK was not indicated, workup thus far unremarkable with negative CTA and negative CT brain. Vitals in the ED with temp 97.6, heart rate of 60 and blood pressure 165/58, pulse ox 99% on room air. Teleneurology recommended admission for stroke rule out. Hospitalist contacted for admission. Patient evaluated at bedside with sons present, patient irritable and seems to get irritated with questioning. Summarized the history as above and she and family bedside report that that is accurate. Patient notes that she did develop the left lower extremity and arm heaviness since she has been here, when asked if it is improved she said she has been moving so she does not know, possibly seems that the weakness has been improving, still feels some left lower extremity heaviness but not as much overt weakness. Does report headaches, and/or she has a headache right now though just because she has not had her coffee or food and that headaches are not uncommon for her during the summer. ROS otherwise negative at this time Neurologic History Pt felt heavy all over and foggy. This has happened in the past - she will get lightheaded if she gets up really quickly. Pt was trying to get up from the couch when this occurred. Pt denies losing consciousness. Patient also had L leg weakness. There was also numbness of the L leg.Pt feelsl veronica her head is swollen but no pain. Currently the L leg is slowly getting back to normal. Son saw the event, she was leaned down with head in her hand. After she came to and got a litle better, son did not notice facial droop or slurred speech. No other symptoms, nothing else like this ever happened. -? General: Laying comfortably in bed; in no acute distress. -? HENT: Normal oropharynx and mucosa. Normal external appearance of ears and nose. Exophthal (more content not included)... Normal [facility] Magnetic resonance imaging r eportOrdered By: Thien Ashton on 02-18-2025 Study report [facility] Imaging Services [address] [place] [address] Brain without Contrast MR#: [id number] Acct: [id number] Name: SHIRA MERRITT Rep #: [id number] : 1940 F 84 From: Ashley Ashton MD PCP: IDALMIS Hollis Status: ADM COREY Study:Brain without Contrast Date of Exam: 02/18/25 Exam# [id number] Ordering Dr: Hattie Paige MD PROCEDURE: BRAIN WITHOUT CONTRAST 02/18/2025 REASON FOR EXAM: TIA/CVA R/O, LEFT LOWER EXTREMITY HEAVINESS/WEAKNE TECHNIQUE: Noncontrast brain MRI. Multiplanar and multisequence images were obtained. FINDINGS: BRAIN/PARENCHYMA: No evidence of acute infarction or acute intracranial hemorrhage. There are subcortical and periventricular white matter FLAIR hyperintensities, likely related to chronic microvascular ischemic disease. EXTRA-AXIAL SPACES: No abnormal extra-axial fluid collections. Patent basal cisterns and foramen magnum. MIDLINE SHIFT: None. VENTRICLES: No hydrocephalus. SCALP SOFT TISSUES & CALVARIUM: No significant abnormality. VISUALIZED SINUSES & MASTOIDS: No air-fluid levels in the paranasal sinuses. Themastoid air cells are clear. ARTERIAL FLOW VOIDS: Preserved major arterial flow voids indicating gross patency. MRI/Brain without Contrast IMPRESSION: No acute intracranial abnormality; no acute infarct, intracranial hemorrhage or extra-axial collection. Chronic microvascular ischemia and involutional changes. [facility] CC: IDALMIS Phoenix; Dr. Sandy Paige MD ~ Box Toe Cutter: Signed [facility] Mean corpuscular hemoglobin (MCH) determinationOrdered By: Sandy Paige on 02-18-2025 MCH (RBC) [Entitic mass] 29.4 pg 27.0-32.0 [facility] Mean corpuscular hemoglobin concentration (MCHC) determinationOrdered By: Sandy Paige on 02-18-2025 MCHC (RBC) [Mass/Vol] 32.8 g/dL 32-36 [facility] Mean platelet volume determi nationOrdered By: Sandy Paige on 02-18-2025 Platelet mean volume (Bld) [Entitic vol] 12.2 fL High 6.2-12.0 [facility] Monocyte percentageOrdered B y: Sandy Paige on 02-18-2025 Monocytes/100 WBC (Bld) 7.7 % 0-10 [facility] Neutrophil percentageOrdered By: Sandy Paige on 02-18-2025 Neutrophils/100 WBC (Bld) 53.2 % 47-70 [facility] Nucleated red blood cell per centageOrdered By: Sandy Paige on 02-18-2025 Nucleated RBC/100 WBC (Bld) [Ratio] 0 % 0-5 [facility] Platelet countOrdered By: Angel Paige on 02-18-2025 Platelets (Bld) [#/Vol] 173 10*3/uL 150-450 [facility] Potassium measurement (mass/ volume)Ordered By: Sandy Paige on 02-18-2025 Potassium (Unsp spec) [Mass/Vol] 4.0 mmol/L 3.3-5.1 [facility] RBC Auto (Bld) [#/Vol]Ordere d By: Sandy Paige on 02-18-2025 RBC (Bld) [#/Vol] 5.07 10*6/uL 4.2-5.4 [facility] Screening total cholesterol/ high density lipoprotein (HDL) cholesterol ratioOrdered By: Sandy Paige on 02-18-2025 Cholesterol.total/Yudy sterol in HDL [Mass ratio] 2.94 {ratio} [facility] Serum creatinine measurement (mass/volume)Ordered By: Sandy Paige on 02-18-2025 Creatinine [Mass/Vol] 0.87 mg/dL 0.70-1.20 [facility] Serum glucose measurement (m ass/volume)Ordered By: Sandy Paige on 02-18-2025 Glucose [Mass/Vol] 93 mg/dL 70-99 [facility] Serum or plasma calcium latesha urement (mass/volume)Ordered By: Sandy Paige on 02-18-2025 Calcium [Mass/Vol] 8.9 mg/dL 7.6-11.0 [facility] Serum or plasma cholesterol in HDL measurement (mass/volume)Ordered By: Sandy Paige on 02-18-2025 Cholesterol in HDL [Mass/Vol] 62 mg/dL >40 [facility] Comment on above: National Cholesterol Education Program (NCEP) guidelines:<40 mg/dL: Low HDL-cholesterol (major risk factor for CHD)>= 60 mg/dL: High HDL-cholesterol (negative risk factor for CHD)HDL-cholesterol is affected by a number of factors, e.g. smoking, exercise, hormones, sex and age. Serum or plasma cholesterol measurement (mass/volume)Ordered By: Sandy Paige on 02-18-2025 Cholesterol [Mass/Vol] 182 mg/dL <201 [facility] Comment on above: Cholesterol level, D esirable <200 mg/dLBorderline high cholesterol 200-239 mg/dLHigh cholesterol >=240 mg/dLRecommendations of the NCEP Adult Treatment Panel for the following risk-cutoff thresholds for the [place] population. Serum or plasma urea nitroge n measurement (mass/volume)Ordered By: Sandy Paige on 02-18-2025 Urea nitrogen [Mass/Vol] 12 mg/dL 4-19 [facility] Sodium levelOrdered By: Lily Paige on 02-18-2025 Sodium [Moles/Vol] 140 mmol/L 133-145 [facility] T4 Free Directon 02-18-2025 T4 FREE DIRECT 1.10 ng/dL Normal 0.76-1.46 [facility] Comment on above: Order Comment: Comme nts: NPO at [place] prior to lipid panelBEFORE PATIENT LEFT ED WAS DUR 14;46 ED STATED THAT IT WOULDBE DRAWN PRIOR LAB DUE AT 15:40 Performed By: #### L 3410.9992, L500.4050, L501.6710, L101.9900, L100.0100 #### [facility] [address] [place], [place], [id number] T4 freeOrdered By: Sandy nguyen on 02-18-2025 Free T4 [Mass/Vol] 1.10 ng/dL 0.76-1.46 [facility] TSH DL <= 0.005 mIU/L QnOrde red By: Sandy Paige on 02-18-2025 TSH Qn 1.640 uIU/mL 0.300-4.200 [facility] Thyroid Stim Hormone (TSH)on 02-18-2025 TSH 1.640 uIU/mL Normal 0.300-4.200 [facility] Comment on above: Order Comment: Comme nts: NPO at [place] prior to lipid panelBEFORE PATIENT LEFT ED WAS DUR 14;46 ED STATED THAT IT WOULDBE DRAWN PRIOR LAB DUE AT 15:40 Performed By: #### L 3410.9992, L500.4050, L501.6710, L101.9900, L100.0100 #### [facility] [address] [place], [place], [id number] Triglycerides measurementOrd ered By: Sandy Paige on 02-18-2025 Triglyceride [Mass/Vol] 61 mg/dL <199 [facility] Comment on above: The drugs N-Acetylcy steine and Metamizole may falsely depress this assay. Normal range: <150 mg/dLBorderline High: 150-199 mg/dLHigh: 200-499 mg/dLVery High: >500 mg/dL White blood cell (WBC) count Ordered By: Sandy Paige on 02-18-2025 WBC (Bld) [#/Vol] 8.7 10*3/uL 4.4-11.0 [facility] 12 Lead EKGon 02-17-2025 12 Lead EKG [facility] Cardiovascular Services [address] [place] [address] 12 Lead EKG 02/17/25 1130 MR#: [id number] Acct: [id number] Name: SHIRA MERRITT Rep #: [id number] : 1940 84 From: Arthur Armendariz MD Attending Dr: Dr. Chip Fulton MD Status: ADM COREY Ordering Dr: Reynold Win MD Date: 02/17/25 Location: [facility] Sex: F C Admitted: 02/17/25 Test Reason : WEAKNESS Blood Pressure : */* mmHG Vent. Rate : 55 BPM Atrial Rate : 55 BPM P-R Int : 126 ms QRS Dur : 72 ms QT Int : 460 ms P-R-T Axes : 66 73 94 degrees QTcB Int : 440 ms Sinus bradycardia Otherwise normal ECG Confirmed by Arthur Armendariz ([id number]), script editor TAYLA OROZCO ([id number]) on 02/18/2025 9:18:07 AM Referred By: Sandy Paige Confirmed By: Arthur Armendariz 02/18/25 0918 Date Arthur Armendariz MD CC: IDALMIS Phoenix; Dr. Reynold Win MD; Dr. Sandy Paige MD; Dr. Chip Fulton MD Signed Normal [facility] Absolute lymphocyte countOrd ered By: Reynold Win on 02-17-2025 Lymphocytes Auto (Unsp spec) [#/Vol] 2.56 10*3/uL 0.83-4.51 [facility] Absolute neutrophil countOrd ered By: Reynold Win on 02-17-2025 Neutrophils (Bld) [#/Vol] 5.8 10*3/uL 2.0-7.7 [facility] Anion gap in Serum or Plasma Ordered By: Reynold Win on 02-17-2025 Anion gap [Moles/Vol] 11 mmol/L 5-15 [facility] Automated lymphocyte count a s percentage of total leukocytesOrdered By: Reynold Win on 02-17-2025 Lymphocytes/100 WBC Auto (Unsp spec) 28.2 % 19- [facility] BUN/creatinine ratioOrdered By: Reynold Win on 02-17-2025 Urea nitrogen/Creatinine [Mass ratio] 14.3 mg/mg 10- [facility] Basophil percentageOrdered B y: Reynold Win on 02-17-2025 Basophils/100 WBC (Bld) 1.3 % High 0-1 [facility] Bilirubin Test strip Ql (U)O rdered By: Reynold Win on 02-17-2025 Bilirubin Ql (U) Negative Negative [facility] Bilirubin, totalOrdered By: Reynold Win on 02-17-2025 Bilirubin [Mass/Vol] 0.61 mg/dL Normal 0.00-1.30 [facility] Comment on above: Performed By: #### L 3410.9992, L500.4050, L501.6710, L101.9900, L100.0100 #### [facility] [address] [place], [address] Brain/Head without Contrasto n 02-17-2025 Brain/Head without Contrast [facility] Imaging Services [address] [place] [address] Brain/Head without Contrast MR#: [id number] Acct: [id number] Name: SHIRA MERRITT Rep #: [id number] : 1940 F 84 From: Toi Honeycutt MD PCP: IDALMIS Hollis Status: REG ER Study: Brain/Head without Contrast Date of Exam: 02/07 11/03 Exam# [id number] Ordering Dr: Reynold Win MD PROCEDURE: BRAIN/HEAD WITHOUT CONTRAST 02/17/2025 REASON FOR EXAM: ALTERED MENTAL STATUS TECHNIQUE: Contiguous axial scans of 3.75 mm slice thicknesses with sagittal and coronal reconstruction images. One or more dose reduction techniques were utilized (e.g., automated exposure control, adjustment of mA and/or kv according to patient size, use of iterative reconstruction technique). RADIATION DOSE SUMMARY: DLP: 779.24 mGycm COMPARISON: NO RELEVANT PRIOR. FINDINGS: Cerebrum: No intraparenchymal hemorrhage. No abnormal areas of encephalomalacia. No mass effect or midline shift. Keane-white matter differentiation is normal. Ventricles and cisterns: Appropriate size for patient's age. Extra-axial fluid: Unremarkable. Posterior fossa: Unremarkable cerebellum. No abnormalities involving the brainstem. Paranasal sinuses: Normal. Vasculature: Unremarkable. Mastoid air cells: unremarkable. Calvarium: Unremarkable. Soft tissues: Unremarkable. . CT/Brain/Head without Contrast IMPRESSION: NO ACUTE FINDINGS. Reading Location: [facility] CC: MANUFACTURING ACCOUNTANTRoberto Phoenix; Dr. Reynold Win MD Box Toe Cutter: Signed Normal [facility] CBC W/Diff, Automatedon 02-07 REACTIVE LYMPH 3+ Normal [facility] Comment on above: Performed By: #### L 3410.9992, L500.4050, L501.6710, L101.9900, L100.0100 #### [facility] [address] [place], [address] Carbon dioxide, total [Moles /volume] in Central venous bloodOrdered By: Reynold Win on 02-17-2025 CO2 [Moles/Vol] 24.6 mmol/L Normal 21.0-32.0 [facility] Comment on above: Performed By: #### L 3410.9992, L500.4050, L501.6710, L101.9900, L100.0100 #### [facility] [address] [place], [address] Chest PA and Lateralon 02-17 Chest PA and Lateral [facility] Imaging Services [address] [place], [place] [address] Chest PA and Lateral MR#: [id number] Acct: [id number] Name: SHIRA MERRITT Rep #: [id number] : 1940 F 84 From: Viviane Obrien PCP: CYNDI HollisC Status: REG ER Study: Chest PA and Lateral Date of Exam: 02/17/25 Exam# [id number] Ordering Dr: Reynold Win MD PROCEDURE: CHEST PA AND LATERAL 02/17/2025 REASON FOR EXAM: WEAKNESS TECHNIQUE: Frontal and lateral views of the chest. COMPARISON: 09/29/24 FINDINGS: No focal consolidations. No pleural effusion or pneumothorax. Cardiac silhouette is unremarkable. No acute fractures RAD/Chest PA and Lateral IMPRESSION: No focal consolidations Reading Location: [facility] CC: MANUFACTURING ACCOUNTANT-C Varinder Phoenix; Dr. Reynold Win MD Box Toe Cutter: Signed Normal [facility] Chloride assayOrdered By: Jose Miguel Win on 02-17-2025 Chloride [Moles/Vol] 106 mmol/L Normal 98-108 [facility] Comment on above: Performed By: #### L 3410.9992, L500.4050, L501.6710, L101.9900, L100.0100 #### [facility] [address] [place], [address] Comprehensive Metabolic Prof ilon 02-17-2025 ALK PHOS 92 U/L Normal 35-104 [facility] Comment on above: Performed By: #### L 3410.9992, L500.4050, L501.6710, L101.9900, L100.0100 #### [facility] [address] [place], [address] BUN/CRE 14.3 RATIO Normal 10-20 [facility] Comment on above: Performed By: #### L 3410.9992, L500.4050, L501.6710, L101.9900, L100.0100 #### [facility] [address] [place], [address] ECRCL 37.65 ml/min Low 50-250 [facility] Comment on above: Performed By: #### L 3410.9992, L500.4050, L501.6710, L101.9900, L100.0100 #### [facility] [address] [place], [address] GAP 11 Normal 5-15 [facility] Comment on above: Performed By: #### L 3410.9992, L500.4050, L501.6710, L101.9900, L100.0100 #### [facility] [address] [place], [address] Potassium [Moles/Vol] 4.3 mmol/L Normal 3.3-5.1 [facility] Comment on above: Performed By: #### L 3410.9992, L500.4050, L501.6710, L101.9900, L100.0100 #### [facility] [address] [place], [address] T PROT 6.7 g/dL Normal 5.9-8.4 [facility] Comment on above: Performed By: #### L 3410.9992, L500.4050, L501.6710, L101.9900, L100.0100 #### [facility] [address] [place], [address] Comprehensive Metabolic Prof ilOrdered By: Reynold Win on 02-17-2025 AST [Catalytic activity/Vol] 19 U/L Normal <=31 [facility] Comment on above: Performed By: #### L 3410.9992, L500.4050, L501.6710, L101.9900, L100.0100 #### [facility] [address] [place], [address] Echo Completeon 02-17-2025 Echo Complete [facility] Cardiovascular Services [address] [place] [address] Echo Complete 02/18/25 1044 MR#: [id number] Acct: [id number] Name: SHIRA MERRITT Rep #: [id number] : 1940 84 From: Aba Arce MD Attending Dr: Dr. Chip Fulton MD Status: ADM COREY Ordering Dr: Sandy Paige MD Date: 02/17/25 Location: [facility] Sex: F C Admitted: 02/17/25 Reason For Study Reason For Study: Tia/Stroke Procedure This was a 2D Doppler, Color Flow transthoracic echocardiogram. Exam performed portable in patient room. Left Ventricle Normal left ventricle. Left ventricular systolic function is normal. The left ventricular ejection fraction is 70 %. Stage 1 diastolic dysfunction. No regional wall motion abnormalities noted. Right Ventricle Normal RV size. Normal systolic function. Tricuspid Valve Normal tricuspid valve. Mild (1+) tricuspid valve insufficiency. Pulmonary artery systolic pressure is 28 mmHg. Aortic Valve Trisinus/trileaflet aortic valve. Pulmonic Valve Normal pulmonic valve. Great Vessels Normal aortic root. The pulmonary artery is normal size. Pericardium/Pleural No pericardial effusion. MMode/2D Measurements Calculations LVIDd: 3.3 cm IVSd: 1.1 cm Ao root diam: 3.2 cm LVIDs: 1.5 cm LVPWd: 0.95 cm RVDd: 2.5 cm FS: 55.5 % LAV(MOD-bp): 17.7 ml SV(MOD-sp4): 17.3 ml LVAd ap4: 13.8 cm2 LAV(MOD-bp) Indexed: 11.3 ml/m2 LVLd ap4: 6.4 cm SI(MOD-sp4): 11.0 ml/m2 LAV(MOD-sp2): 12.2 ml EDV(MOD-sp4): 25.1 ml LAV(MOD-sp4): 17.2 ml EDV(sp4-el): 25.5 ml LVAs ap4: 6.6 cm2 LVLs ap4: 5.0 cm ESV(MOD-sp4): 7.7 ml ESV(sp4-el): 7.3 ml EF(MOD-sp4): 69.1 % EF(sp4-el): 71.3 % SV(sp4-el): 18.2 ml LA dimension(2D): 2.5 cm LA A4 area: 9.9 cm2 RA A4 area: 8.4 cm2 Time Measurements MV dec time: 0.42 sec Doppler Measurements Calculations MV E max pérez: 55.0 cm/sec Lat Peak E' Pérez: 6.8 cm/sec Med Peak E' Pérez: 6.5 cm/sec MV A max pérez: 86.4 cm/sec E/E' lat: 8.1 E/E' med: 8.5 MV E/A: 0.64 Ao V2 max: 110.4 cm/sec LV V1 max: 81.5 cm/sec MV dec slope: 131.2 cm/sec2 Ao max P.9 mmHg LV V1 max P.7 mmHg Ao V2 mean: 81.8 cm/sec Ao mean P.8 mmHg Ao V2 VTI: 24.1 cm TR max pérez: 246.8 cm/sec TR max P.4 mmHg ECHO/Echo Complete Interpretation Summary Normal left ventricle. Left ventricular systolic function is normal. The left ventricular ejection fraction is 70 %. Stage 1 diastolic dysfunction. Ordering Physician: Sandy Paige Referring Physician: Vrainder Phoenix Performed By: Yani Farah RDCS, RVT 02/18/25 1751 Date Aba Arce MD CC: MANUFACTURING ACCOUNTANT-C Varinder [place]; Dr. Sandy Paige MD; Dr. Chip Fulton MD Date Dictated: 02/18/25 1044 Date Transcribed: 02/18/25 1751 Box Toe Cutter: Signed Normal [facility] Emergency Department Summary on 02-17-2025 Emergency Department Summary [facility] Medical Records Department [address] [place] [address] Emergency Department Summary 02/17/25 MR#: [id number] Acct: [id number] Name: SHIRA MERRITT Rep #: [id number] : 1940 84 From: Reynold Win MD PCP: IDALMIS Hollis Status:REG ER Location: ED HPI History of Present Illness Chief Complaint: Weakness Informant: patient and EMS Narrative Narrative: 84-year-old female brought by EMS as for an altered mental status. Patient states she feels fine. She states earlier she had gotten up from bed, she remembers sitting on the couch and at 1 point feeling heavy all over and a little foggy, her son states that she was not responding to him, and called 911. She does not remember that, but states she feels fine right now. No history of seizures. She is not a diabetic. Lives with her son. Denies any recent illness or falls or injury. She denies any lateralizing neurologic symptoms of any kind. She denies any changes in her vision right now or any pain or symptoms. [facility] Medical History Osteoarthritis Right anterior knee pain History of colon cancer Chronic anemia Ulcerative colitis C. difficile colitis Ulcerative colitis Severe malnutrition Cataract Arthritis Seasonal allergies History of colon cancer Home Medications ???Medication ???Instructions ???Recorded ???Last Taken ???Type ustekinumab 90 mg/mL subcutaneous 90 mg subcut Q8W 12 months #1 mL 06/26/24 02/04/25 Rx syringe (Stelara) acetaminophen 500 mg capsule 1,000 mg PO Q6H PRN fever or pain 02/17/25 02/15/25 History Allergy/AdvReac Type Severity Reaction Status Date / Time Sulfa (Sulfonamide Allergy Rash Verified 02/17/25 10:40 Antibiotics) amoxicillin (From Augmentin) AdvReac Vomiting Verified 02/17/25 10:40 clavulanic acid (From AdvReac Vomiting Verified 02/17/25 10:40 Augmentin) fexofenadine (From Rose) AdvReac Other Verified 02/17/25 10:40 hydrocodone AdvReac "out of it" Verified 02/17/25 10:40 Family History Mother No problems noted. Grandmother Arthritis Grandfather Arthritis Other Heart disease Surgical History History of appendectomy History of cholecystectomy H/O breast biopsy Surgical history of tubal ligation S/P partial colectomy S/P cholecystectomy Social History household members: family housing: house Smoking Status: Never smoker alcohol intake: never substance use type: does not use what type of physical activity do you participate in: walking frequency: daily ROS ROS ED Constitutional Constitutional ED: Reports as per HPI and weakness; Denies chills or fever(s) Eyes Eyes: Denies change in vision or diplopia ENT ENT ED: Denies rhinorrhea or sore throat Cardiovascular Cardiovascular: Denies chest pain or palpitations Respiratory/Chest Respiratory/Chest: Denies cough or dyspnea Gastrointestinal Gastrointestinal: Denies abdominal pain, diarrhea, nausea or vomiting Genitourinary Genitourinary ED: Denies dysuria or hematuria Musculoskeletal Musculoskeletal: Denies back pain or neck pain Integumentary Denies abscess or rash Neurologic Neurologic: Denies headache(s), paresthesias or weakness Psychiatric Psychiatric: Denies anxiety or suicidal thoughts EXAM Physical Exam Const Vital Signs: 02/17/25 10:40 02/17/25 11:16 02/17/25 12:33 Temperature 97.6 F L Temperature Source Oral Pulse Rate 60 57 L Respiratory Rate 18 16 Respiratory Effort Normal Respiratory Pattern Normal Blood Pressure 165/58 H 163/65 H Blood Pressure Mean 93 97 Pulse Ox 99 95 Oxygen Delivery Method Room Air Room Air 02/17/25 12:33 02/17/25 13:03 02/17/25 13:29 Temperature Temperature Source Pulse Rate 57 L 65 68 Respiratory Rate 16 18 18 Respiratory Effort Respiratory Pattern Blood Pressure 163/65 H 161/72 H 141/57 H Blood Pressure Mean 97 101 85 Pulse Ox 95 97 98 Oxygen Delivery Method Room Air Room Air Room Air Positive well nourished and well developed General Appearance ED: well developed and NAD HEENT Reports moist mucous membranes normocephalic and atraumatic Eyes PERRL and EOMs intact bilaterally Neck full ROM, no lymphadenopathy and supple Resp normal respiratory effort and clear to auscultation bilaterally Cardio regular rate, regular rhythm and no murmurs Rate: Negative for tachycardic GI non-tender and non-distended Auscultation: normoactive bowel sounds Palpation: soft Back/Spine no CVA tenderness General Back: other FROM Extremity normal to inspection Gener (more content not included)... Normal [facility] Eosinophil percentageOrdered By: Reynoldelpidio Win on 02-17-2025 Eosinophils/100 WBC (Bld) 0.7 % 0-5 [facility] Erythrocyte distribution wid th ratioOrdered By: Winnfield Audelia on 02-17-2025 Erythrocyte distribution width (RBC) [Ratio] 13.5 % 11.6-14.6 [facility] Erythrocyte distribution wid th standard deviationOrdered By: [facility] on 02-17-2025 Erythrocyte distribution width (RBC) [Ratio] 44.0 fl High 35.1-43.9 [facility] Glomerular filtration rate ( GFR) estimation/1.73 sq m using serum, plasma, or whole bOrdered By: Reynoldelipdio Win on 02-17-2025 GFR/1.73 sq M.predicted among non-blacks MDRD (S/P/Bld) [Vol rate/Area] 60 mL/min/{1.73_m2} Normal >60 [facility] Comment on above: mL/min/1.73m2 CKD-EP I Creatinine Equation (2020) Result Comment: mL/m in/1.73m2 CKD-EPI Creatinine Equation (2020) Performed By: #### L 3410.9992, L500.4050, L501.6710, L101.9900, L100.0100 #### [facility] [address] [place], [address] H AND P Exam - Hospitaliston 02-17-2025 H&P Exam - Hospitalist [facility] Medical Records Department [address] [place] [address] H P Exam - Hospitalist 02/17/25 1437 MR#: [id number] Acct: [id number] Name: SHIRA MERRITT Rep #: [id number] : 1940 84 From: Sandy Paige MD PCP: Varinder Phoenix, MANUFACTURING ACCOUNTANT-C Status:ADM COREY Location: [place] [address] HPI - General General Date of Admission: 02/17/25 Date of Service: 02/17/25 Chief Complaint: Wobbly, left lower extremity heaviness HPI Narrative SHIRA MERRITT, is an 84y/o F w/ hx of who presented to [facility] ED 02/17/25 d/t weakness and AMS. Pt woke up earlier and got out of bed, she remembers sitting on the couch and at some point felt heavy all over and a little foggy. Son reported she was not responding so he called 911. Patient reports feeling completely fine now. Son reported that when patient got up this morning she went from her bathroom to the living room and looked like she was wobbly and off balance and was holding onto things, he asked if she needed to go to the hospital and she said no but when she sat down she put her head in her hands and looked like she was falling over. Son was yelling at her and she was not responding so he called 911. By the time EMS arrived she felt better. Reportedly this has happened before and usually occurs in the morning right after she gets out of bed but this is the worst that it has happened. Between patient getting to the ED and evaluation she developed left lower extremity weakness and felt her left arm was heavy, her repeat NIH was 2 so there was a stroke on the ED. TNK was not indicated, workup thus far unremarkable with negative CTA and negative CT brain. Vitals in the ED with temp 97.6, heart rate of 60 and blood pressure 165/58, pulse ox 99% on room air. Teleneurology recommended admission for stroke rule out. Hospitalist contacted for admission. Patient evaluated at bedside with sons present, patient irritable and seems to get irritated with questioning. Summarized the history as above and she and family bedside report that that is accurate. Patient notes that she did develop the left lower extremity and arm heaviness since she has been here, when asked if it is improved she said she has been moving so she does not know, possibly seems that the weakness has been improving, still feels some left lower extremity heaviness but not as much overt weakness. Does report headaches, and/or she has a headache right now though just because she has not had her coffee or food and that headaches are not uncommon for her during the summer. ROS otherwise negative at this time [facility] Medical History Osteoarthritis Right anterior knee pain History of colon cancer Chronic anemia Ulcerative colitis C. difficile colitis Ulcerative colitis Severe malnutrition Cataract Arthritis Seasonal allergies History of colon cancer Home Medications ???Medication ???Instructions ???Recorded ???Last Taken ???Type ustekinumab 90 mg/mL subcutaneous 90 mg subcut Q8W 12 months #1 mL 06/26/24 02/04/25 Rx syringe (Stelara) acetaminophen 500 mg capsule 1,000 mg PO Q6H PRN fever or pain 02/17/25 02/15/25 History Allergy/AdvReac Type Severity Reaction Status Date / Time Sulfa (Sulfonamide Allergy Rash Verified 02/17/25 10:40 Antibiotics) amoxicillin (From Augmentin) AdvReac Vomiting Verified 02/17/25 10:40 clavulanic acid (From AdvReac Vomiting Verified 02/17/25 10:40 Augmentin) fexofenadine (From Rose) AdvReac Other Verified 02/17/25 10:40 hydrocodone AdvReac "out of it" Verified 02/17/25 10:40 Family History Mother No problems noted. Grandmother Arthritis Grandfather Arthritis Other Heart disease Surgical History History of appendectomy History of cholecystectomy H/O breast biopsy Surgical history of tubal ligation S/P partial colectomy S/P cholecystectomy Social History household members: family housing: house Smoking Status: Never smoker alcohol intake: never substance use type: does not use what type of physical activity do you participate in: walking frequency: daily ROS ROS Narrative General: Denies fever/chills HENT: Does get intermittent headaches, has headache right now, denies stuffy nose, denies sore throat EYES: Denies changes in vision Resp: Denies cough, denies shortness of breath Cardiac: Denies chest pain GI: Denies abdominal pain, denies changes in bowel, denies nausea/vomiting : Denies changes in urination Extremity: Denies swelling MSK: Some left lower extremity left upper extremity heaviness Neuro: Denies any numbness/tingling Heme: Denies any bleeding or bruising Skin: Denies rashes (more content not included)... Normal [facility] Hematocrit Auto (Bld) [Volum e fraction]Ordered By: Reynold Win on 02-17-2025 Hematocrit (Bld) [Volume fraction] 48.6 % High 37-47 [facility] Hemoglobin measurementOrdere d By: Reynold Win on 02-17-2025 Hemoglobin (Bld) [Mass/Vol] 15.9 g/dL High 12.0-15.0 [facility] Immature granulocytes/100 WB C Auto (Bld)Ordered By: Reynold Win on 02-17-2025 Immature granulocytes/100 WBC (Bld) 0.300 % 0.0-0.9 [facility] Comment on above: IG% - Immature Granu locytes (promyelocytes, myelocytes and metamyelocytes) > 1% indicates that a LEFT SHIFT is Present. Ketones Test strip Ql (U)Ord ered By: Reynold Win on 02-17-2025 Ketones Ql (U) Negative Negative [facility] L499.0042on 02-17-2025 Trop T High Sen < 6 Normal <=14 [facility] Comment on above: Performed By: #### L 3410.9992, L500.4050, L501.6710, L101.9900, L100.0100 #### [facility] [address] [place], [address] L499.0043on 02-17-2025 Trop T High Sen < 6 Normal <=14 [facility] Comment on above: Performed By: #### L 3410.9992, L500.4050, L501.6710, L101.9900, L100.0100 #### [facility] [address] [place], [address] L501.4021on 02-17-2025 Trop T High Sen < 6 Normal <=14 [facility] Comment on above: Performed By: #### L 501.4021 ####[facility] [address] [place], [address] MCV (mean corpuscular volume ) determinationOrdered By: Reynold Win on 02-17-2025 MCV (RBC) [Entitic vol] 89.5 fL 81-99 [facility] Mean corpuscular hemoglobin (MCH) determinationOrdered By: Reynold Win on 02-17-2025 MCH (RBC) [Entitic mass] 29.3 pg 27.0-32.0 [facility] Mean corpuscular hemoglobin concentration (MCHC) determinationOrdered By: Reynold Win on 02-17-2025 MCHC (RBC) [Mass/Vol] 32.7 g/dL 32-36 [facility] Mean platelet volume determi nationOrdered By: Reynold Win on 02-17-2025 Platelet mean volume (Bld) [Entitic vol] 11.9 fL 6.2-12.0 [facility] Microscopic analysis of urin e for red blood cells (RBC)Ordered By: Reynold Win on 02-17-2025 Microscopic analysis of urine for red blood cells (RBC) 0 SEEN /hpf 0-5 [facility] Monocyte percentageOrdered B y: Reynold Win on 02-17-2025 Monocytes/100 WBC (Bld) 5.3 % 0-10 [facility] Mucus LM Ql (Urine sed)Order ed By: Reynold Win on 02-17-2025 Mucus Ql (Urine sed) 0 SEEN /hpf [facility] Neutrophil percentageOrdered By: Reynold Win on 02-17-2025 Neutrophils/100 WBC (Bld) 64.2 % 47-70 [facility] Nitrite Test strip Ql (U)Ord ered By: Reynold Win on 02-17-2025 Nitrite Ql (U) Negative Negative [facility] Nucleated red blood cell per centageOrdered By: Reynold Win on 02-17-2025 Nucleated RBC/100 WBC (Bld) [Ratio] 0 % 0-5 [facility] Platelet countOrdered By: Jose Miguel Win on 02-17-2025 Platelets (Bld) [#/Vol] 165 10*3/uL 150-450 [facility] Potassium measurement (mass/ volume)Ordered By: Reynold Win on 02-17-2025 Potassium (Unsp spec) [Mass/Vol] 4.3 mmol/L 3.3-5.1 [facility] Protein Test strip Ql (U)Ord ered By: Reynold Win on 02-17-2025 Protein Ql (U) Negative Negative [facility] RBC Auto (Bld) [#/Vol]Ordere d By: Reynold Win on 02-17-2025 RBC (Bld) [#/Vol] 5.43 10*6/uL High 4.2-5.4 [facility] STROKE CTA Head AND Neck W/C onon 02-17-2025 STROKE CTA Head AND Neck W/Con [facility] Imaging Services [address] [place] [address] STROKE CTA Head AND Neck W/Con MR#: [id number] Acct: [id number] Name: SHIRA MERRITT Rep #: [id number] : 1940 F 84 From: Viviane Obrien PCP: IDALMIS Hollis Status: REG ER Study: STROKE CTA Head AND Neck W/Con Date of Exam: 0 02/17/25 Exam# [id number] Ordering Dr: Reynold Win MD PROCEDURE: STROKE CTA HEAD AND NECK W/CON 02/17/2025 REASON FOR EXAM: LEFT HEMIPARESIS TECHNIQUE: CTA imaging of the head and neck from the aortic arch to the skull vertex with out contrast and with intravenous contrast. Multiplanar and multisequence images were obtained. CONTRAST: 100ml of isovue 370 One or more dose reduction techniques were used (e.g., Automated exposure control, adjustment of the mA and/or kV according to patient size, use of iterative reconstruction technique). RADIATION DOSE SUMMARY: DLP: 598 mGycm COMPARISON: none FINDINGS: The aortic arch demonstrates a type I configuration. The ostia of the great vessels are patent. There is conventional branching. The right CCA is patent. There is minimal stenosis of the right carotid bifurcation due to plaque. The cervical right ICA is patent. The right MCA and right KIMBERLY appear patent. There is no large vessel occlusion. The left CCA is patent. There is no significant stenoses at the left carotid bifurcation by NASCET criteria. The cervical left ICA is patent. The left MCA and left KIMBERLY appear patent. There is no large vessel occlusion. The right vertebral artery arises from the right subclavian artery. The left vertebral artery arises from the left subclavian artery. Both vertebral arteries are patent. Both vertebral arteries join to form the patent basilar artery. Both posterior cerebral arteries arise from the tip of the basilar. Both proximal TOWEL SEWER segments are patent. There is no large vessel occlusion. There is no enhancing intracranial mass. Shotty cervical lymph nodes are identified. The thyroid gland is heterogeneous with 6mm nodule within the right thyroid gland; smaller scattered hypodensities are noted bilaterally. The lung apices demonstrate no pneumothorax. No destructive osseous abnormalities identified. Right lens surgery. CT/STROKE CTA Head AND Neck W/Con IMPRESSION: No large vessel occlusion or high grade stenosis within the intracranial or neck arterial vasculature. Reading Location: [facility] CC: IDALMIS Phoenix; Dr. Reynold Win MD Box Toe Cutter: Signed Normal [facility] Serum creatinine measurement (mass/volume)Ordered By: Reynold Win on 02-17-2025 Creatinine [Mass/Vol] 0.94 mg/dL Normal 0.70-1.20 [facility] Comment on above: Performed By: #### L 3410.9992, L500.4050, L501.6710, L101.9900, L100.0100 #### [facility] [address] [place], [place], [id number] Serum globulin measurementOr dered By: Reynold Win on 02-17-2025 Globulin (S) [Mass/Vol] 2.8 g/dL Normal 2.2-4.2 [facility] Comment on above: Performed By: #### L 3410.9992, L500.4050, L501.6710, L101.9900, L100.0100 #### [facility] [address] [place], [place], [id number] (003) Serum glucose measurement (m ass/volume)Ordered By: Reynold Win on 02-17-2025 Glucose [Mass/Vol] 91 mg/dL Normal 70-99 [facility] Comment on above: Performed By: #### L 3410.9992, L500.4050, L501.6710, L101.9900, L100.0100 #### [facility] [address] [place], [place], [id number] (707) Serum or plasma alanine mireles otransferase (ALT) measurementOrdered By: Reynold Win on 02-17-2025 ALT [Catalytic activity/Vol] 9 U/L Normal <=34 [facility] Comment on above: Performed By: #### L 3410.9992, L500.4050, L501.6710, L101.9900, L100.0100 #### [facility] [address] [place], [place], [id number] (485) Serum or plasma albumin latesha urement (mass/volume)Ordered By: Reynold Win on 02-17-2025 Albumin [Mass/Vol] 4.0 g/dL Normal 3.4-4.8 [facility] Comment on above: Performed By: #### L 3410.9992, L500.4050, L501.6710, L101.9900, L100.0100 #### [facility] [address] [place], [place], [id number] (158) Serum or plasma albumin/glob ulin mass ratioOrdered By: Reynold Win on 02-17-2025 Albumin/Globulin [Mass ratio] 1.4 {ratio} Normal 0.9-2.4 [facility] Comment on above: Performed By: #### L 3410.9992, L500.4050, L501.6710, L101.9900, L100.0100 #### [facility] [address] [place], [place], [id number] Serum or plasma alkaline aleah sphatase measurementOrdered By: Reynold Win on 02-17-2025 ALP [Catalytic activity/Vol] 92 U/L 35-104 [facility] Serum or plasma calcium latesha urement (mass/volume)Ordered By: Reynold Win on 02-17-2025 Calcium [Mass/Vol] 9.0 mg/dL Normal 7.6-11.0 [facility] Comment on above: Performed By: #### L 3410.9992, L500.4050, L501.6710, L101.9900, L100.0100 #### [facility] [address] [place], [address] Serum or plasma urea nitroge n measurement (mass/volume)Ordered By: Reynold Win on 02-17-2025 Urea nitrogen [Mass/Vol] 13 mg/dL Normal 4-19 [facility] Comment on above: Performed By: #### L 3410.9992, L500.4050, L501.6710, L101.9900, L100.0100 #### [facility] [address] [place], [place], [id number] Sodium levelOrdered By: Carlton Win on 02-17-2025 Sodium [Moles/Vol] 141 mmol/L Normal 133-145 [facility] Comment on above: Performed By: #### L 3410.9992, L500.4050, L501.6710, L101.9900, L100.0100 #### [facility] [address] [place] [place], [address] Squamous epithelial cells de tection in urine sediment by light microscopyOrdered By: Reynold Win on 02-17-2025 Epithelial cells.squamous LM Ql (Urine sed) 0-5 SEEN /hpf 5-10 [facility] Total proteinOrdered By: Elisha Win on 02-17-2025 Protein [Mass/Vol] 6.7 g/dL 5.9-8.4 [facility] Troponin T.cardiac [Mass/vol ume] in Serum or Plasma by High sensitivity methodOrdered By: Reynold Win on 02-17-2025 Troponin T.cardiac High sensitivity method [Mass/Vol] < 6 ng/L <14 [facility] Troponin T.cardiac High sensitivity method [Mass/Vol] < 6 ng/L <14 [facility] Urinalysis, Completeon 02-17 EPI,SQUAMOUS 0-5 SEEN Normal 5-10 [facility] Comment on above: Order Comment: COLLE CTOR TO SPECIFY Performed By: #### L 3410.9992, L500.4050, L501.6710, L101.9900, L100.0100 #### [facility] [address] [place], [address] BACTERIA 0 SEEN Normal None Seen [facility] Comment on above: Order Comment: COLLE CTOR TO SPECIFY Performed By: #### L 3410.9992, L500.4050, L501.6710, L101.9900, L100.0100 #### [facility] [address] [place], [address] Mucus Ql (Urine sed) 0 SEEN Normal [facility] Comment on above: Order Comment: COLLE CTOR TO SPECIFY Performed By: #### L 3410.9992, L500.4050, L501.6710, L101.9900, L100.0100 #### [facility] [address] [place], [address] RBC 0 SEEN Normal 0-5 [facility] Comment on above: Order Comment: COLLE CTOR TO SPECIFY Performed By: #### L 3410.9992, L500.4050, L501.6710, L101.9900, L100.0100 #### [facility] [address] [place], [address] WBC 0 SEEN Normal 0-5 [facility] Comment on above: Order Comment: COLLE CTOR TO SPECIFY Performed By: #### L 3410.9992, L500.4050, L501.6710, L101.9900, L100.0100 #### [facility] [address] [place], [address] Urine clarityOrdered By: Elisha Win on 02-17-2025 Clarity (U) Clear Clear [facility] Urine color determinationOrd ered By: Reynold Win on 02-17-2025 Color (U) Yellow Yellow [facility] Urine glucose detectionOrder ed By: Reynold Win on 02-17-2025 Glucose Ql (U) Normal mg/dl Normal [facility] Urine leukocyte esterase det ection by dipstickOrdered By: Reynold Win on 02-17-2025 Leukocyte esterase Test strip Ql (U) Negative Negative [facility] Urine pHOrdered By: Reynold Win on 02-17-2025 pH (U) 8.0 [pH] 5.0 - 8.0 [facility] Urine sediment bacteria coun t by microscopy (number/high power field)Ordered By: Reynold Win on 02-17-2025 Bacteria LM.HPF (Urine sed) [#/Area] 0 /[HPF] None Seen [facility] Urine specific gravity measu rementOrdered By: Reynold Win on 02-17-2025 Specific gravity (U) [Rel density] 1.010 1.002-1.030 [facility] Urine urobilinogen measureme ntOrdered By: Reynold Win on 02-17-2025 Urobilinogen Ql (U) Normal mg/dl Normal [facility] White blood cell (WBC) count Ordered By: Reynold Win on 02-17-2025 WBC (Bld) [#/Vol] 9.1 10*3/uL 4.4-11.0 [facility] White blood cell countOrdere d By: Reynold Win on 02-17-2025 White blood cell count 0 SEEN /hpf 0-5 [facility] Gastroenterology Visit Repor ton 11-28-2024 Gastroenterology Visit Report [facility] [address] [place] [address] OFFICE VISIT Date of Service: 11/28/24 MR#: [id number] Acct: [id number] Name: SHIRA MERRITT Rep #: [id number] : 1940 Provider: Jared Draper DO Age/Sex: 84/F Location[place] [facility] [place] Status: Signed Intake Vital Signs 09/10/23 12:55 09/29/24 10:15 Height 5 ft 5 in 5 ft 5 in Intake Visit Reasons: 6 M FU Allergies Sulfa (Sulfonamide Antibiotics) Allergy (Verified 11/17/23 14:47) Rash amoxicillin (From Augmentin) Adverse Reaction (Verified 11/17/23 14:47) Vomiting clavulanic acid (From Augmentin) Adverse Reaction (Verified 11/17/23 14:47) Vomiting fexofenadine (From Rose) Adverse Reaction (Verified 11/17/23 14:47) Other hydrocodone Adverse Reaction (Verified 11/17/23 14:47) out of it Medications ???Medication ???Instructions ???Recorded ???Confirmed ???Type meloxicam 7.5 mg tablet 7.5 mg PO DAILY PRN pain #30 tabs 12/02/22 11/28/24 Rx ustekinumab 90 mg/mL subcutaneous 90 mg subcut Q8W 12 months #1 mL 06/26/24 11/28/24 Rx syringe (Stelara) Have you fallen in the past year?: Yes PFSH Medical History Osteoarthritis Right anterior knee pain History of colon cancer Chronic anemia Ulcerative colitis C. difficile colitis Ulcerative colitis Severe malnutrition Cataract Arthritis Seasonal allergies History of colon cancer Surgical History History of appendectomy History of cholecystectomy H/O breast biopsy Surgical history of tubal ligation S/P partial colectomy S/P cholecystectomy Family History Mother No problems noted. Grandmother Arthritis Grandfather Arthritis Other Heart disease Social History household members: family housing: house Smoking Status: Never smoker alcohol intake: never substance use type: does not use what type of physical activity do you participate in: walking frequency: daily HPI HPI Details: SHIRA MERRITT, is a 84 F who presents to the office today for follow up. *[facility] hospitalization 08.10.21-08.12.21. [facility] ED for weakness and syncope. GI consulted 08.11.21 for management of diarrhea with a history of ulcerative colitis and colon cancer diagnosed in 2011. UC maintained with mesalamine at presentation. Colon cancer s/p right hemicolectomy. [facility] hospitalization 11.23.21-11.29.21 [facility] ED with lightheadedness and syncope. GI consulted same day for management of GIB, diarrhea, leukocytosis. Colonoscopy performed 11.27.21 and subsequently diag nosed with exacerbation of previously diagnosed UC. Treated with vancomycin, colestipol and Imuran.??? CT abd/pel 11.23.21 a somewhat collapsed gallbladder; multiple splenic punctate calcifications from prior granulomatous infection; moderate diffuse mural hyperenhancement throughout majority of colon with descending colon most notably involved; cecum, ascending and transverse colon showed mild wall thickening and mural stratification. Colonoscopy 11.27.21 severe pancolitis UC (Hunter Score 3); congested mucosa in distal ileum and terminal ileum. Biopsy results consistent with UC without dysplasia. Treated with vancomycin, Imuran, colestipol. Stool EP and C.Difficile taken during colonoscopy and WNL. OV 3.10.31 Continue prednisone 40mg, azathioprine 100mg and colestipol 2g. Recommend Stelara start. OV 02.03.22 Prednisone stopped. Continues with azathioprine and colestipol. Abdominal cramping and urgent watery/blood diarrhea have been a difficulty. Restart prednisone. [facility] hospitalization 02.03.22-02.13.22 [facility] ED following GI clinic presentation where WBC noted to be 25,000 with fever and chills and was admitted. GI consulted 02.04.22 and treated UC (steroids with Stelara start as outpatient) and new diagnosis of C.Difficile (vancomycin and IV metronidazole with later use of steroids). ? CT abd/pel 4.27.22 diffuse bowel wall thickening and enhancement with pericolonic fat stranding from ascending colon through RS colon. [facility] hospitalization 6.02.28-04.01. [facility] ED presentation .02.28 with worsening abdominal pain. Biochemical workup and imaging obtained and she was admitted for care of abdominal pain and acute encephalopathy secondary to recurrent C.difficile enterocolitis and recurrent UC flare and leukocytosis. ? CT abd/pel .03.31 small hiatal hernia; diffuse circumferential wall thickening and edema of entire colon, acute colitis; post-surgical changes of RS. OV 7..22 doing well following discharge. OV 10.. intermittent days of loose stools. Doing well with Stelara. OV .. doing well (more content not included)... Normal [facility] 12 Lead EKGon 09-29-2024 12 Lead EKG [facility] Cardiovascular Services [address] [place] [address] 12 Lead EKG 09/29/24 1029 MR#: [id number] Acct: [id number] Name: SHIRA MERRITT Rep #: [id number] : 1940 84 From: Aba Arce MD Attending Dr: Status: DEP ER Ordering Dr: Gabriel Martin MD Date: 09/29/24 Location: ED Sex: F C Admitted: Test Reason : GENERAL Blood Pressure : */* mmHG Vent. Rate : 58 BPM Atrial Rate : 58 BPM P-R Int : 116 ms QRS Dur : 58 ms QT Int : 442 ms P-R-T Axes : 13 56 112 degrees QTcB Int : 433 ms Sinus bradycardia Low voltage QRS Septal infarct , age undetermined ST T wave abnormality, consider lateral ischemia Abnormal ECG Confirmed by ABA ARCE MD ([id number]), script editor TAYLA OROZCO ([id number]) on 10/01/2024 7:03:07 AM Referred By: Confirmed By: ABA ARCE MD 10/01/24 0703 Date Aba Arce MD CC: IDALMIS [place]; Dr. Gabriel Martin MD Signed Normal [facility] CBC W/Diff, Automatedon 12-2 Absolute Lymph 1.77 X10 3/uL Normal 0.83-4.51 [facility] Comment on above: Performed By: #### L 100.0100, L500.4050 ####[facility] [address] [place], [address] Absolute Neut 5.8 X10 3/uL Normal 2.0-7.7 [facility] Comment on above: Performed By: #### L 100.0100, L500.4050 ####[facility] [address] [place], [address] Basophils/100 WBC (Bld) 1.3 % High 0-1 [facility] Comment on above: Performed By: #### L 100.0100, L500.4050 ####[facility] [address] [place], [address] Eosinophils/100 WBC (Bld) 4.4 % Normal 0-5 [facility] Comment on above: Performed By: #### L 100.0100, L500.4050 ####[facility] [address] [place], [address] Erythrocyte distribution width (RBC) [Ratio] 13.4 % Normal 11.6-14.6 [facility] Comment on above: Performed By: #### L 100.0100, L500.4050 ####[facility] [address] [place], [address] Hematocrit (Bld) [Volume fraction] 49.5 % High 37-47 [facility] Comment on above: Performed By: #### L 100.0100, L500.4050 ####[facility] [address] [place], [address] Hemoglobin (Bld) [Mass/Vol] 15.9 g/dL High 12.0-15.0 [facility] Comment on above: Performed By: #### L 100.0100, L500.4050 ####[facility] [address] [place], [address] IG% 0.400 Normal 0.0-0.9 [facility] Comment on above: Result Comment: IG% - Immature Granulocytes (promyelocytes, myelocytes and metamyelocytes) > 1% indicates that a LEFT SHIFT is Present. Performed By: #### L 100.0100, L500.4050 ####[facility] [address] [place], [address] Lymphocytes/100 WBC (Bld) 19.9 % Normal 19-41 [facility] Comment on above: Performed By: #### L 100.0100, L500.4050 ####[facility] [address] [place], [address] MCH (RBC) [Entitic mass] 29.3 pg Normal 27.0-32.0 [facility] Comment on above: Performed By: #### L 100.0100, L500.4050 ####[facility] [address] [place], [address] MCHC (RBC) [Mass/Vol] 32.1 g/dL Normal 32-36 [facility] Comment on above: Performed By: #### L 100.0100, L500.4050 ####[facility] [address] [place], [address] MCV (RBC) [Entitic vol] 91.2 fL Normal 81-99 [facility] Comment on above: Performed By: #### L 100.0100, L500.4050 ####[facility] [address] [place], [address] Monocytes/100 WBC (Bld) 9.1 % Normal 0-10 [facility] Comment on above: Performed By: #### L 100.0100, L500.4050 ####[facility] [address] [place], [address] Neutrophils/100 WBC (Bld) 64.9 % Normal 47-70 [facility] Comment on above: Performed By: #### L 100.0100, L500.4050 ####[facility] [address] [place], [address] Nucleated RBC (Bld) [#/Vol] 0 10*3/uL Normal 0-5 [facility] Comment on above: Performed By: #### L 100.0100, L500.4050 ####[facility] [address] [place], [address] Platelet mean volume (Bld) [Entitic vol] 11.2 fL Normal 6.2-12.0 [facility] Comment on above: Performed By: #### L 100.0100, L500.4050 ####[facility] [address] [place], [address] Platelets (Bld) [#/Vol] 258 10*3/uL Normal 150-450 [facility] Comment on above: Performed By: #### L 100.0100, L500.4050 ####[facility] [address] [place], [address] RBC (Bld) [#/Vol] 5.43 10*6/uL High 4.2-5.4 [facility] Comment on above: Performed By: #### L 100.0100, L500.4050 ####[facility] [address] [place], [address] RDW SD 45.1 fl High 35.1-43.9 [facility] Comment on above: Performed By: #### L 100.0100, L500.4050 ####[facility] [address] [place], [address] WBC (Bld) [#/Vol] 8.9 10*3/uL Normal 4.4-11.0 [facility] Comment on above: Performed By: #### L 100.0100, L500.4050 ####[facility] [address] [place], [address] Chest 1 View (Portable)on Chest 1 View (Portable) [facility] Imaging Services [address] [place] [address] Chest 1 View (Portable) MR#: [id number] Acct: [id number] Name: SHIRA MERRITT Rep #: [id number] : 1940 F 84 From: Anibal Mccoy MD PCP: CYNDI HollisC Status: REG ER Study: Chest 1 View (Portable) Date of Exam: 09/29/24 Exam# [id number] Ordering Dr: Gabriel Martin MD [id number] EXAM: XR CHEST, 1 VIEW CLINICAL INDICATION: Coronary artery disease TECHNIQUE: Frontal view of the chest. COMPARISON: XR Chest dated 09/09/2023 FINDINGS: LUNGS AND PLEURAL SPACES: Minor linear densities within the lower lungs consistent with atelectasis/scarring. Lungs are otherwise clear. No pleural effusion or pneumothorax. HEART: Normal heart size. MEDIASTINUM: No mediastinal or hilar mass. BONES/JOINTS: No acute abnormality. RAD/Chest 1 View (Portable) IMPRESSION: No acute cardiopulmonary abnormality. No interval change. Electronically Signed: Anibal Mccoy MD at 11:41 EST , CC: IDALMIS [place]; Dr. Gabriel Martin MD Box Toe Cutter: Signed Normal [facility] Comprehensive Metabolic Prof ilon 09-29-2024 Albumin [Mass/Vol] 3.5 g/dL Normal 3.2-5.0 [facility] Comment on above: Performed By: #### L 100.0100, L500.4050 ####[facility] [address] [place], [address] Albumin/Globulin [Mass ratio] 0.8 {ratio} Low 0.9-2.4 [facility] Comment on above: Performed By: #### L 100.0100, L500.4050 ####[facility] [address] [place], [address] ALK P 114 U/L Normal 45-117 [facility] Comment on above: Performed By: #### L 100.0100, L500.4050 ####[facility] [address] [place], [address] ALT [Catalytic activity/Vol] 15 U/L Normal 13-56 [facility] Comment on above: Performed By: #### L 100.0100, L500.4050 ####[facility] [address] [place], [address] AST [Catalytic activity/Vol] 12 U/L Low 15-37 [facility] Comment on above: Performed By: #### L 100.0100, L500.4050 ####[facility] [address] [place], [address] Bilirubin [Mass/Vol] 0.50 mg/dL Normal 0.20-1.00 [facility] Comment on above: Result Comment: For patients on eltrombopag therapy, use of Dimension Polo TBIL is not recommended. Performed By: #### L 100.0100, L500.4050 ####[facility] [address] [place], [address] BUN/CRE 8.9 RATIO Low 10-20 [facility] Comment on above: Performed By: #### L 100.0100, L500.4050 ####[facility] [address] [place], [address] CA,Total 9.2 mg/dL Normal 8.5-10.1 [facility] Comment on above: Performed By: #### L 100.0100, L500.4050 ####[facility] [address] [place], [address] Chloride [Moles/Vol] 106 mmol/L Normal 98-107 [facility] Comment on above: Performed By: #### L 100.0100, L500.4050 ####[facility] [address] [place], [address] CO2 [Moles/Vol] 29.0 mmol/L Normal 21.0-32.0 [facility] Comment on above: Performed By: #### L 100.0100, L500.4050 ####[facility] [address] [place], [address] Creatinine [Mass/Vol] 1.01 mg/dL Normal 0.55-1.02 [facility] Comment on above: Result Comment: The validity of the calculated GFR GFRAA in patients over 70 years has not been determined. Clinical correlation is essential. Performed By: #### L 100.0100, L500.4050 ####[facility] [address] [place], [address] ECRCL 37.11 ml/min Normal [facility] Comment on above: Performed By: #### L 100.0100, L500.4050 ####[facility] [address] [place], [address] EST GFR - AA 67 mL/min Normal >60 [facility] Comment on above: Result Comment: Afri can Russian GFR Calc Performed By: #### L 100.0100, L500.4050 ####[facility] [address] [place], [address] GAP 5 Normal 5-15 [facility] Comment on above: Performed By: #### L 100.0100, L500.4050 ####[facility] [address] [place], [address] GFR/1.73 sq M.predicted among non-blacks MDRD (S/P/Bld) [Vol rate/Area] 56 mL/min/{1.73_m2} Low >60 [facility] Comment on above: Result Comment: Non- GFR Calc Performed By: #### L 100.0100, L500.4050 ####[facility] [address] [place], [address] Globulin (S) [Mass/Vol] 4.3 g/dL High 2.2-4.2 [facility] Comment on above: Performed By: #### L 100.0100, L500.4050 ####[facility] [address] [place], [address] Glucose [Mass/Vol] 96 mg/dL Normal 74-106 [facility] Comment on above: Performed By: #### L 100.0100, L500.4050 ####[facility] [address] [place], [address] Potassium [Moles/Vol] 3.9 mmol/L Normal 3.5-5.1 [facility] Comment on above: Performed By: #### L 100.0100, L500.4050 ####[facility] [address] [place], [address] Sodium [Moles/Vol] 140 mmol/L Normal 136-145 [facility] Comment on above: Performed By: #### L 100.0100, L500.4050 ####[facility] [address] [place], [address] T PROT 7.8 g/dL Normal 6.4-8.2 [facility] Comment on above: Performed By: #### L 100.0100, L500.4050 ####[facility] [address] [place], [address] Urea nitrogen [Mass/Vol] 9 mg/dL Normal 7-18 [facility] Comment on above: Performed By: #### L 100.0100, L500.4050 ####[facility] [address] [place], [address] Emergency Department Summary on 09-29-2024 Emergency Department Summary [facility] Medical Records Department [address] [place] [address] Emergency Department Summary 09/29/24 MR#: [id number] Acct: [id number] Name: SHIRA MERRITT Rep #: [id number] : 1940 84 From: Gabriel Martin MD PCP: CYNDI HollisC Status:REG ER Location: ED HPI History of Present Illness Chief Complaint: Weakness Narrative Narrative: 84-year-old female past medical history of ulcerative colitis, intermittent diarrhea, presents via EMS with generalized weakness that she has had since this morning. She states that she felt well yesterday, and was able to do the dishes. However, she felt generalized weakness this morning, and she states that her son looked at her and said that she was pale and wanted her to be evaluated in the emergency department. She denies any recent fevers or chills, no cough, no shortness of breath or chest pain associated with this. No problems with urination. Over the last few days she has had 2 or 3 episodes of watery diarrhea. No exacerbating or alleviating factors. [facility] Medical History Osteoarthritis Right anterior knee pain History of colon cancer Chronic anemia Ulcerative colitis C. difficile colitis Ulcerative colitis Severe malnutrition Cataract Arthritis Seasonal allergies History of colon cancer Home Medications ???Medication ???Instructions ???Recorded ???Last Taken ???Type meloxicam 7.5 mg tablet 7.5 mg PO DAILY PRN pain #30 tabs 02/23/23 Unknown Rx ustekinumab 90 mg/mL subcutaneous 90 mg subcut Q8W 12 months #1 mL 06/26/24 Unknown Rx syringe (Stelara) Allergy/AdvReac Type Severity Reaction Status Date / Time Sulfa (Sulfonamide Allergy Rash Verified 11/17/23 14:47 Antibiotics) amoxicillin (From Augmentin) AdvReac Vomiting Verified 11/17/23 14:47 clavulanic acid (From AdvReac Vomiting Verified 11/17/23 14:47 Augmentin) fexofenadine (From Rose) AdvReac Other Verified 11/17/23 14:47 hydrocodone AdvReac "out of it" Verified 11/17/23 14:47 Family History Mother No problems noted. Grandmother Arthritis Grandfather Arthritis Other Heart disease Surgical History History of appendectomy History of cholecystectomy H/O breast biopsy Surgical history of tubal ligation S/P partial colectomy S/P cholecystectomy Social History household members: family housing: house Smoking Status: Never smoker alcohol intake: never substance use type: does not use what type of physical activity do you participate in: walking frequency: daily ROS ROS ED ROS Narrative Constitutional: No fever, no chills. Generalized weakness. HEENT: No sore throat. No neck pain. No loss of vision. No rhinorrhea. Cardiovascular: No chest pain. No palpitations. No pedal edema. Respiratory: No cough, no shortness of breath. Abdominal: No abdominal pain. No nausea. No vomiting. Positive diarrhea. Genitourinary: No dysuria. No hematuria. Musculoskeletal: No myalgias. No arthralgias. Neurologic: No headaches. No dizziness. No lightheadedness. Skin: No rash. No change in color. Psychiatric: No depression. No anxiety. EXAM Physical Exam Narrative Exam Narrative: Afebrile. Vital signs noted. Nontoxic-appearing. Awake, alert, oriented, and cooperative. Cardiovascular examination reveals a mild bradycardia in the 50s. Lungs are clear to auscultation bilaterally, no respiratory distress. Abdomen is soft and nontender without rebound or guarding. Positive bowel sounds. No pedal edema. Neurological examination is nonfocal and nonlateralizing. Const Vital Signs: 09/29/24 10:15 09/29/24 10:15 Temperature 98.3 F Temperature Source Oral Pulse Rate 55 L Respiratory Rate 16 Respiratory Effort Normal Respiratory Pattern Normal Blood Pressure 147/68 H Blood Pressure Mean 94 Pulse Ox 100 Oxygen Delivery Method Room Air MDM MDM MDM Narrative Medical decision making narrative: I reviewed her prior records. She has history of lightheadedness and was recently diagnosed with COVID 20 days ago. She does have history of ulcerative colitis. Differential diagnosis includes but not limited to dehydration from her diarrhea from ulcerative colitis versus other electrolyte abnormality. I have low suspicion for anemia based on her physical examination. She is not having chest pain or shortness of breath associated with this. She may have a generalized malaise and fatigue. Pulse ox 100% on room air so I doubt pneumonia/COVID-pneum onia. CBC, EKG, CMP, UA, and chest x-ray will be obtained as a generalized workup. EKG obtained interpreted by myself independently as n (more content not included)... Normal [facility] Urinalysis, Completeon 09-29 WBC 0-5 SEEN Normal 0-5 [facility] Comment on above: Order Comment: CLEAN CATCH Performed By: #### L 400.0001 #### [facility] [address] [place], [place], [address] BACTERIA 1+ /hpf Normal None Seen [facility] Comment on above: Order Comment: CLEAN CATCH Performed By: #### L 400.0001 #### [facility] [address] [place], [address] EPI,SQUAMOUS 0-5 SEEN Normal 5-10 [facility] Comment on above: Order Comment: CLEAN CATCH Performed By: #### L 400.0001 #### [facility] [address] [facility] [place], [address] RBC 0-5 SEEN Normal 0-5 [facility] Comment on above: Order Comment: CLEAN CATCH Performed By: #### L 400.0001 #### [facility] [address] [place], [place], [address] Mucus Ql (Urine sed) 0 SEEN Normal [facility] Comment on above: Order Comment: CLEAN CATCH Performed By: #### L 400.0001 #### [facility] [address] [place], [address] UA DIP, URINE (POC)on 2023 BILIRUBIN UA (POCT) Negative Negative [facility] CLARITY UA (POCT) Clear [facility] COLOR UA (POCT) Yellow [facility] GLUCOSE UA (POCT) Negative Negative mg/dL [facility] Hemoglobin Ql (U) Small Abnormal Negative [facility] Interpretation and review of laboratory results Abnormal [facility] KETONE UA (POCT) Negative Negative mg/dL [facility] LEUKOCYTES UA (POCT) Small Abnormal Negative [facility] NITRITE UA (POCT) Negative Negative [facility] PH UA (POCT) 6.5 4.5 - 8.0 [facility] Protein Ql (U) Negative Negative mg/dL [facility] SPECIFIC GRAVITY UA (POCT) 1.010 1.005 - 1.030 [facility] UROBILINOGEN UA (POCT) 0.2 Valerie l E.U./dL [facility] Location:[facility], [facility], [place], [address] [facility] POINT OF CARE [facility] Absolute lymphocyte countOrd ered By: Sandy Paige on 09-11-2023 Lymphocytes Auto (Unsp spec) [#/Vol] 1.49 10*3/uL 0.83-4.51 [facility] Basophil percentageOrdered B y: Sandy Paige on 09-11-2023 Basophils/100 WBC (Bld) 0.6 % 0-1 [facility] Chloride [Moles/Vol] 110 mmol/L 98-107 [facility] Eosinophils/100 WBC (Bld) 0.4 % 0-5 [facility] Glucose [Mass/Vol] 93 mg/dL 74-106 [facility] Neutrophils (Bld) [#/Vol] 2.7 10*3/uL 2.0-7.7 [facility] Neutrophils/100 WBC (Bld) 54.4 % 47-70 [facility] Potassium [Moles/Vol] 3.6 mmol/L 3.5-5.1 [facility] Sodium [Moles/Vol] 140 mmol/L 136-145 [facility] WBC (Bld) [#/Vol] 4.9 10*3/uL 4.4-11.0 [facility] Blood erythrocytes count (nu mber/volume)Ordered By: Sandy Paige on 09-11-2023 RBC (Bld) [#/Vol] 4.93 10*6/uL 4.2-5.4 [facility] Blood hemoglobin measurement (mass/volume)Ordered By: Sandy Paige on 09-11-2023 Hemoglobin (Bld) [Mass/Vol] 14.3 g/dL 12.0-15.0 [facility] Blood lymphocytes/100 leukoc ytesOrdered By: Sandy Paige on 09-11-2023 Lymphocytes/100 WBC (Bld) 30.5 % 19-41 [facility] Blood monocytes/100 leukocyt esOrdered By: Sandy Paige on 09-11-2023 Monocytes/100 WBC (Bld) 13.9 % 0-10 [facility] Blood platelet mean volumeOr dered By: Sandy Paige on 09-11-2023 Platelet mean volume (Bld) [Entitic vol] 12.3 fL 6.2-12.0 [facility] Determination of erythrocyte mean corpuscular volume (MCV)Ordered By: Sandy Paige on 09-11-2023 MCV (RBC) [Entitic vol] 92.5 fL 81-99 [facility] Hematocrit Auto (Bld) [Volum e fraction]Ordered By: Sandy Paige on 09-11-2023 Hematocrit (Bld) [Volume fraction] 45.6 % 37-47 [facility] - Chemistry and C hemistry - challengeOrdered By: Sandy Paige on 09-11-2023 CO2 [Moles/Vol] 25.0 mmol/L 21.0-32.0 [facility] Magnesium [Mass/Vol] 2.3 mg/dL 1.6-2.6 [facility] Urea nitrogen/Creatinine [Mass ratio] 16.4 mg/mg 10-20 [facility] - Hematology and Cell countsOrdered By: Sandy Paige on 09-11-2023 Erythrocyte distribution width (RBC) [Entitic vol] 45.6 fL 35.1-43.9 [facility] Erythrocyte distribution width (RBC) [Ratio] 13.3 % 11.6-14.6 [facility] Immature granulocytes/100 WBC (Bld) 0.200 % 0.0-0.9 [facility] Comment on above: IG% - Immature Granu locytes (promyelocytes, myelocytes and metamyelocytes) > 1% indicates that a LEFT SHIFT is Present. MCH (RBC) [Entitic mass] 29.0 pg 27.0-32.0 [facility] Nucleated RBC/100 WBC (Bld) [Ratio] 0 % 0-5 [facility] MCHC Auto (RBC) [Mass/Vol]Or dered By: Sandy Paige on 09-11-2023 MCHC (RBC) [Mass/Vol] 31.4 g/dL 32-36 [facility] No Panel InformationOrdered By: Sandy Paige on 09-11-2023 Estimated Creatinine Clearance Calc 38.54 ml/min [facility] Estimated GFR (MDRD) Amer 89 mL/min >60 [facility] Comment on above: GFR Calc Estimated GFR (MDRD) Non-Af Amer 74 mL/min >60 [facility] Comment on above: Non- GFR Calc Platelets bldOrdered By: Raul Paige on 09-11-2023 Platelets (Bld) [#/Vol] 138 10*3/uL 150-450 [facility] Serum or plasma calcium latesha urement (mass/volume)Ordered By: Sandy Paige on 09-11-2023 Calcium [Mass/Vol] 8.2 mg/dL 8.5-10.1 [facility] Serum or plasma creatinine m easurement (mass/volume)Ordered By: Sandy Paige on 09-11-2023 Creatinine [Mass/Vol] 0.79 mg/dL 0.55-1.02 [facility] Comment on above: The validity of the calculated GFR & GFRAA in patients over 70 years has not been determined. Clinical correlation is essential. Serum or plasma urea nitroge n measurement (mass/volume)Ordered By: Sandy Paige on 09-11-2023 Urea nitrogen [Mass/Vol] 13 mg/dL 7-18 [facility] Thin prep Papanicolaou smear with manual screeningOrdered By: Sandy Paige on 09-11-2023 Thin prep Papanicolaou smear with manual screening 5 5-15 [facility] Absolute lymphocyte countOrd ered By: Dio Webb on 09-09-2023 Lymphocytes Auto (Unsp spec) [#/Vol] 1.59 10*3/uL 0.83-4.51 [facility] Basophil percentageOrdered B y: Dio Webb on 09-09-2023 Basophils/100 WBC (Bld) 0.8 % 0-1 [facility] Chloride [Moles/Vol] 107 mmol/L 98-107 [facility] Eosinophils/100 WBC (Bld) 0.0 % 0-5 [facility] Glucose [Mass/Vol] 102 mg/dL 74-106 [facility] Comment on above: Fasting Glucose resu lt from 100 to 125 mg/dL suggests IMPAIRED HOMEOSTASIS per A.D.A. criteria. Neutrophils (Bld) [#/Vol] 7.1 10*3/uL 2.0-7.7 [facility] Neutrophils/100 WBC (Bld) 73.5 % 47-70 [facility] Potassium [Moles/Vol] 4.3 mmol/L 3.5-5.1 [facility] Sodium [Moles/Vol] 140 mmol/L 136-145 [facility] WBC (Bld) [#/Vol] 9.7 10*3/uL 4.4-11.0 [facility] Blood erythrocytes count (nu mber/volume)Ordered By: Dio Webb on 09-09-2023 RBC (Bld) [#/Vol] 5.24 10*6/uL 4.2-5.4 [facility] Blood hemoglobin measurement (mass/volume)Ordered By: Dio Webb on 09-09-2023 Hemoglobin (Bld) [Mass/Vol] 15.1 g/dL 12.0-15.0 [facility] Blood lymphocytes/100 leukoc ytesOrdered By: Dio Webb on 09-09-2023 Lymphocytes/100 WBC (Bld) 16.3 % 19-41 [facility] Blood monocytes/100 leukocyt esOrdered By: Dio Webb on 09-09-2023 Monocytes/100 WBC (Bld) 9.0 % 0-10 [facility] Blood platelet mean volumeOr dered By: Dio Webb on 09-09-2023 Platelet mean volume (Bld) [Entitic vol] 12.6 fL 6.2-12.0 [facility] Determination of erythrocyte mean corpuscular volume (MCV)Ordered By: Dio Webb on 09-09-2023 MCV (RBC) [Entitic vol] 92.7 fL 81-99 [facility] Hematocrit Auto (Bld) [Volum e fraction]Ordered By: Dio Webb on 09-09-2023 Hematocrit (Bld) [Volume fraction] 48.6 % 37-47 [facility] Influenza virus A and B and SARS-CoV-2 (COVID-19) Ag panel - Upper respiratory specimOrdered By: Dio Webb on 09-09-2023 SARS-CoV-2 & FLU Antigen (Rapid) SARS-CoV-2 (COVID 19) [facility] Laboratory - Chemistry and C hemistry - challengeOrdered By: Dio Webb on 09-09-2023 CO2 [Moles/Vol] 27.0 mmol/L 21.0-32.0 [facility] Urea nitrogen/Creatinine [Mass ratio] 14.4 mg/mg 10-20 [facility] Laboratory - Hematology and Cell countsOrdered By: Dio Webb on 09-09-2023 Erythrocyte distribution width (RBC) [Entitic vol] 45.9 fL 35.1-43.9 [facility] Erythrocyte distribution width (RBC) [Ratio] 13.4 % 11.6-14.6 [facility] Immature granulocytes/100 WBC (Bld) 0.400 % 0.0-0.9 [facility] Comment on above: IG% - Immature Granu locytes (promyelocytes, myelocytes and metamyelocytes) > 1% indicates that a LEFT SHIFT is Present. MCH (RBC) [Entitic mass] 28.8 pg 27.0-32.0 [facility] Nucleated RBC/100 WBC (Bld) [Ratio] 0 % 0-5 [facility] MCHC Auto (RBC) [Mass/Vol]Or dered By: Dio Webb on 09-09-2023 MCHC (RBC) [Mass/Vol] 31.1 g/dL 32-36 [facility] No Panel InformationOrdered By: Dio Webb on 09-09-2023 Estimated Creatinine Clearance Calc 36.01 ml/min [facility] Estimated GFR (MDRD) Amer 65 mL/min >60 [facility] Comment on above: GFR Calc Estimated GFR (MDRD) Non-Af Amer 54 mL/min >60 [facility] Comment on above: Non- GFR Calc Troponin I High Sensitivity 9 pg/mL 3.0-54.0 [facility] Comment on above: Please Note: New Dotty t Units and Gender Specific Reference Ranges. For more information see Policy Stat Procedure [place] High Sensitivity Troponin (TNIH) and attachments. Platelets bldOrdered By: Baljinder Webb on 09-09-2023 Platelets (Bld) [#/Vol] 153 10*3/uL 150-450 [facility] Serum or plasma calcium latesha urement (mass/volume)Ordered By: Dio Webb on 09-09-2023 Calcium [Mass/Vol] 8.6 mg/dL 8.5-10.1 [facility] Serum or plasma creatinine m easurement (mass/volume)Ordered By: Dio Webb on 09-09-2023 Creatinine [Mass/Vol] 1.04 mg/dL 0.55-1.02 [facility] Comment on above: The validity of the calculated GFR & GFRAA in patients over 70 years has not been determined. Clinical correlation is essential. Serum or plasma urea nitroge n measurement (mass/volume)Ordered By: Dio Webb on 09-09-2023 Urea nitrogen [Mass/Vol] 15 mg/dL 7-18 [facility] Thin prep Papanicolaou smear with manual screeningOrdered By: Dio Webb on 09-09-2023 Thin prep Papanicolaou smear with manual screening 6 5-15 [facility] Absolute lymphocyte countOrd ered By: Dr. Batista on 11-20-2022 Lymphocytes Auto (Unsp spec) [#/Vol] 2.03 10*3/uL 0.83-4.51 [facility] Basophil percentageOrdered B y: Dr. Batista on 11-20-2022 Basophils/100 WBC (Bld) 1.1 % 0-1 [facility] Bilirubin [Mass/Vol] 0.60 mg/dL 0.20-1.00 [facility] Comment on above: For patients on eltr ombopag therapy, use of Dimension [place]o TBIL is not recommended. Chloride [Moles/Vol] 107 mmol/L 98-107 [facility] Eosinophils/100 WBC (Bld) 0.6 % 0-5 [facility] Glucose [Mass/Vol] 98 mg/dL 74-106 [facility] Neutrophils (Bld) [#/Vol] 6.0 10*3/uL 2.0-7.7 [facility] Neutrophils/100 WBC (Bld) 67.8 % 47-70 [facility] Potassium [Moles/Vol] 4.3 mmol/L 3.5-5.1 [facility] Protein [Mass/Vol] 6.8 g/dL 6.4-8.2 [facility] Sodium [Moles/Vol] 141 mmol/L 136-145 [facility] WBC (Bld) [#/Vol] 8.9 10*3/uL 4.4-11.0 [facility] Blood erythrocytes count (nu mber/volume)Ordered By: Dr. Batista on 11-20-2022 RBC (Bld) [#/Vol] 5.24 10*6/uL 4.2-5.4 [facility] Blood hemoglobin measurement (mass/volume)Ordered By: Dr. Batista on 11-20-2022 Hemoglobin (Bld) [Mass/Vol] 14.8 g/dL 12.0-15.0 [facility] Blood lymphocytes/100 leukoc ytesOrdered By: Dr. Batista on 11-20-2022 Lymphocytes/100 WBC (Bld) 22.9 % 19-41 [facility] Blood monocytes/100 leukocyt esOrdered By: Dr. Batista on 11-20-2022 Monocytes/100 WBC (Bld) 7.4 % 0-10 [facility] Blood platelet mean volumeOr dered By: Dr. Batista on 11-20-2022 Platelet mean volume (Bld) [Entitic vol] 12.1 fL 6.2-12.0 [facility] Determination of erythrocyte mean corpuscular volume (MCV)Ordered By: Dr. Batista on 11-20-2022 MCV (RBC) [Entitic vol] 87.8 fL 81-99 [facility] Erythrocyte sedimentation ra teOrdered By: Dr. Batista on 11-20-2022 ESR (Bld) [Velocity] 25 mm/h 0-30 [facility] Hematocrit Auto (Bld) [Volum e fraction]Ordered By: Dr. Batista on 11-20-2022 Hematocrit (Bld) [Volume fraction] 46.0 % 37-47 [facility] Laboratory - Chemistry and C hemistry - challengeOrdered By: Dr. Batista on 11-20-2022 ALP [Catalytic activity/Vol] 90 U/L 45-117 [facility] ALT [Catalytic activity/Vol] 16 U/L 13-56 [facility] CO2 [Moles/Vol] 27.0 mmol/L 21.0-32.0 [facility] Globulin (S) [Mass/Vol] 3.2 g/dL 2.2-4.2 [facility] Urea nitrogen/Creatinine [Mass ratio] 15.9 mg/mg 10-20 [facility] Laboratory - Hematology and Cell countsOrdered By: Dr. Batista on 11-20-2022 Erythrocyte distribution width (RBC) [Entitic vol] 46.6 fL 35.1-43.9 [facility] Erythrocyte distribution width (RBC) [Ratio] 14.5 % 11.6-14.6 [facility] Immature granulocytes/100 WBC (Bld) 0.200 % 0.0-0.9 [facility] Comment on above: IG% - Immature Granu locytes (promyelocytes, myelocytes and metamyelocytes) > 1% indicates that a LEFT SHIFT is Present. MCH (RBC) [Entitic mass] 28.2 pg 27.0-32.0 [facility] Nucleated RBC/100 WBC (Bld) [Ratio] 0 % 0-5 [facility] MCHC Auto (RBC) [Mass/Vol]Or dered By: Dr. Batista on 11-20-2022 MCHC (RBC) [Mass/Vol] 32.2 g/dL 32-36 [facility] No Panel InformationOrdered By: Dr. Batista on 11-20-2022 Estimated Creatinine Clearance Calc 46.46 ml/min [facility] Estimated GFR (MDRD) Amer 86 mL/min >60 [facility] Comment on above: GFR Calc Estimated GFR (MDRD) Non-Af Amer 71 mL/min >60 [facility] Comment on above: Non- GFR Calc Platelets bldOrdered By: Dr. Batista on 11-20-2022 Platelets (Bld) [#/Vol] 190 10*3/uL 150-450 [facility] Serum or plasma albumin latesha urement (mass/volume)Ordered By: Dr. Batista on 11-20-2022 Albumin [Mass/Vol] 3.6 g/dL 3.2-5.0 [facility] Serum or plasma albumin/glob ulin mass ratioOrdered By: Dr. Batista on 11-20-2022 Albumin/Globulin [Mass ratio] 1.1 {ratio} 0.9-2.4 [facility] Serum or plasma calcium latesha urement (mass/volume)Ordered By: Dr. Batista on 11-20-2022 Calcium [Mass/Vol] 9.0 mg/dL 8.5-10.1 [facility] Serum or plasma creatinine m easurement (mass/volume)Ordered By: Dr. Batista on 11-20-2022 Creatinine [Mass/Vol] 0.82 mg/dL 0.55-1.02 [facility] Comment on above: The validity of the calculated GFR & GFRAA in patients over 70 years has not been determined. Clinical correlation is essential. Serum or plasma urea nitroge n measurement (mass/volume)Ordered By: Dr. Batista on 11-20-2022 Urea nitrogen [Mass/Vol] 13 mg/dL 7-18 [facility] Thin prep Papanicolaou smear with manual screeningOrdered By: Dr. Batista on 11-20-2022 Thin prep Papanicolaou smear with manual screening 13 U/L 15-37 [facility] Thin prep Papanicolaou smear with manual screening 7 5-15 [facility] Erythrocyte sedimentation ra teOrdered By: Jared Draper on 10-15-2022 ESR (Bld) [Velocity] 13 mm/h 0-30 [facility] No Panel InformationOrdered By: Jared Draper on 10-15-2022 Miscellaneous Test See comment [facility] Comment on above: Scanned image report available in EMR Serum or plasma C reactive p rotein measurement (mass/volume)Ordered By: Jared Draper on 10-15-2022 CRP [Mass/Vol] mg/L 0.0-3.0 [facility] Comment on above: C-Reactive Protein ( CRP) provides useful information for thediagnosis, therapy and monitoring of inflammatory processesand associated diseases. For the evaluation of Relative Riskfor Cardiovascular Disease, a High Sensitivity CRP (HSCRP)should be ordered. Glucose Glucometer (BldC) [M ass/Vol]on 04-07-2022 Glucose [Mass/Vol] 81 mg/dL 74-106 [facility] Work Phone: Comment on above: MANAGEMENT OF PATIEN T CARE PER NURSING PROTOCOL Absolute lymphocyte counton 04-02-2022 Lymphocytes Auto (Unsp spec) [#/Vol] 1.05 10*3/uL 0.83-4.51 [facility] Work Phone: Basophil percentageon 2021 Basophils/100 WBC (Bld) 0.1 % 0-1 [facility] Work Phone: Chloride [Moles/Vol] 105 mmol/L 98-107 [facility] Work Phone: Eosinophils/100 WBC (Bld) 0.2 % 0-5 [facility] Work Phone: Glucose [Mass/Vol] 92 mg/dL 74-106 [facility] Work Phone: Neutrophils (Bld) [#/Vol] 15.5 10*3/uL 2.0-7.7 [facility] Work Phone: Neutrophils/100 WBC (Bld) 86.3 % 47-70 [facility] Work Phone: Potassium [Moles/Vol] 4.2 mmol/L 3.5-5.1 [facility] Work Phone: Sodium [Moles/Vol] 141 mmol/L 136-145 [facility] Work Phone: WBC (Bld) [#/Vol] 18.0 10*3/uL 4.4-11.0 [facility] Work Phone: Blood erythrocytes count (nu mber/volume)on 04-02-2022 RBC (Bld) [#/Vol] 4.02 10*6/uL 4.2-5.4 [facility] Work Phone: Blood hemoglobin measurement (mass/volume)on 04-02-2022 Hemoglobin (Bld) [Mass/Vol] 11.2 g/dL 12.0-15.0 [facility] Work Phone: Blood lymphocytes/100 leukoc yteson 04-02-2022 Lymphocytes/100 WBC (Bld) 5.8 % 19-41 [facility] Work Phone: [phone] Blood monocytes/100 leukocyt eson 04-02-2022 Monocytes/100 WBC (Bld) 6.3 % 0-10 [facility] Work Phone: Blood platelet mean volumeon 04-02-2022 Platelet mean volume (Bld) [Entitic vol] 10.9 fL 6.2-12.0 [facility] Work Phone: Determination of erythrocyte mean corpuscular volume (MCV)on 04-02-2022 MCV (RBC) [Entitic vol] 87.1 fL 81-99 [facility] Work Phone: Hematocrit Auto (Bld) [Volum e fraction]on 04-02-2022 Hematocrit (Bld) [Volume fraction] 35.0 % 37-47 [facility] Work Phone: Laboratory - Chemistry and C hemistry - challengeon 04-02-2022 CO2 [Moles/Vol] 30.0 mmol/L 21.0-32.0 [facility] Work Phone: Urea nitrogen/Creatinine [Mass ratio] 30.9 mg/mg 10-20 [facility] Work Phone: [phone] Laboratory - Hematology and Cell countson 04-02-2022 Erythrocyte distribution width (RBC) [Entitic vol] 54.2 fL 35.1-43.9 [facility] Work Phone: Erythrocyte distribution width (RBC) [Ratio] 17.4 % 11.6-14.6 [facility] Work Phone: [phone] Immature granulocytes/100 WBC (Bld) 1.300 % 0.0-0.9 [facility] Work Phone: [phone] Comment on above: IG% - Immature Granu locytes (promyelocytes, myelocytes and metamyelocytes) > 1% indicates that a LEFT SHIFT is Present. MCH (RBC) [Entitic mass] 27.9 pg 27.0-32.0 [facility] Work Phone: [phone] Nucleated RBC/100 WBC (Bld) [Ratio] 0 % 0-5 [facility] Work Phone: [phone] MCHC Auto (RBC) [Mass/Vol]on 04-02-2022 MCHC (RBC) [Mass/Vol] 32.0 g/dL 32-36 [facility] Work Phone: No Panel Informationon 04-02 Estimated Creatinine Clearance Calc 36.50 ml/min [facility] Work Phone: [phone] Estimated GFR (MDRD) Amer 113 mL/min >60 [facility] Work Phone: [phone] Comment on above: GFR Calc Estimated GFR (MDRD) Non-Af Amer 94 mL/min >60 [facility] Work Phone: [phone] Comment on above: Non- GFR Calc Platelets bldon 04-02-2022 Platelets (Bld) [#/Vol] 203 10*3/uL 150-450 [facility] Work Phone: [phone] Serum or plasma calcium latesha urement (mass/volume)on 04-02-2022 Calcium [Mass/Vol] 7.6 mg/dL 8.5-10.1 [facility] Work Phone: [phone] Serum or plasma creatinine m easurement (mass/volume)on 04-02-2022 Creatinine [Mass/Vol] 0.65 mg/dL 0.55-1.02 [facility] Work Phone: [phone] Comment on above: The validity of the calculated GFR & GFRAA in patients over 70 years has not been determined. Clinical correlation is essential. Serum or plasma urea nitroge n measurement (mass/volume)on 04-02-2022 Urea nitrogen [Mass/Vol] 20 mg/dL 7-18 [facility] Work Phone: Thin prep Papanicolaou smear with manual screeningon 04-02-2022 Thin prep Papanicolaou smear with manual screening 6 5-15 [facility] Work Phone: [phone] Basophil percentageon 2021 Basophil percentage 2.8 mg/dL 2.5-4.9 [facility] Work Phone: Laboratory - Chemistry and C hemistry - challengeon 03-29-2022 Magnesium [Mass/Vol] 2.5 mg/dL 1.6-2.6 [facility] Work Phone: Blood lymphocytes/100 leukoc yteson 03-26-2022 Lymphocytes/100 WBC (Bld) 7 % 19-41 [facility] Work Phone: Blood monocytes/100 leukocyt eson 03-26-2022 Monocytes/100 WBC (Bld) 2 % 0-10 [facility] Work Phone: Blood platelet adequacy dete ction by light microscopyon 03-26-2022 Platelets LM Ql (Bld) ADEQUATE ADEQ [facility] Work Phone: Blood segmented neutrophils/ 100 leukocyteson 03-26-2022 Segmented neutrophils/100 WBC (Bld) 87 % 47-70 [facility] Work Phone: Laboratory - Hematology and Cell countson 03-26-2022 Anisocytosis Ql (Bld) 1+ [facility] Work Phone: Myelocytes/100 WBC (Bld) 4 % 0-0 [facility] Work Phone: Review by pathologiston 03-10 Pathologist review Clayton (Unsp spec) [Interp] Reviewed [facility] Work Phone: [phone] Comment on above: Previous reported re sult: Kerline spivey Edited by: RGOOD on 03/26/22:0408Neutrophilic leukocytosis with left shift. Clinical correlation necessary.Andrzej Denise M.D. 03/26/22 AMENDED REPORT 03/26/22 [id number] PATH REV previously reported as: Kerline spivey Total cell counton 2 Cells counted Molgen (Bld/Tiss) [#] 100 MANUAL DIFF [facility] Work Phone: Basophil percentageon 2021 Basophil percentage 3.0 mg/dL 2.5-4.9 [facility] Work Phone: Chloride [Moles/Vol] 110 mmol/L 98-107 [facility] Work Phone: Glucose [Mass/Vol] 137 mg/dL 74-106 [facility] Work Phone: Comment on above: Fasting Glucose resu lt greater than or equal to 126 mg/dL suggests DIABETES MELLITUS per A.D.A. criteria. Potassium [Moles/Vol] 4.4 mmol/L 3.5-5.1 [facility] Work Phone: Sodium [Moles/Vol] 139 mmol/L 136-145 [facility] Work Phone: Glucose Glucometer (BldC) [M ass/Vol]on 03-22-2022 Glucose [Mass/Vol] 142 mg/dL 74-106 [facility] Work Phone: Comment on above: MANAGEMENT OF PATIEN T CARE PER NURSING PROTOCOL Laboratory - Chemistry and C hemistry - challengeon 03-22-2022 CO2 [Moles/Vol] 23.0 mmol/L 21.0-32.0 [facility] Work Phone: Magnesium [Mass/Vol] 2.4 mg/dL 1.6-2.6 [facility] Work Phone: Urea nitrogen/Creatinine [Mass ratio] 49.2 mg/mg 10-20 [facility] Work Phone: No Panel Informationon 03-22 Estimated Creatinine Clearance Calc 37.12 ml/min [facility] Work Phone: Estimated GFR (MDRD) Amer 105 mL/min >60 [facility] Work Phone: Comment on above: GFR Calc Estimated GFR (MDRD) Non-Af Amer 87 mL/min >60 [facility] Work Phone: Comment on above: Non- GFR Calc Serum or plasma calcium latesha urement (mass/volume)on 03-22-2022 Calcium [Mass/Vol] 7.5 mg/dL 8.5-10.1 [facility] Work Phone: Serum or plasma creatinine m easurement (mass/volume)on 03-22-2022 Creatinine [Mass/Vol] 0.69 mg/dL 0.55-1.02 [facility] Work Phone: Comment on above: The validity of the calculated GFR & GFRAA in patients over 70 years has not been determined. Clinical correlation is essential. Serum or plasma urea nitroge n measurement (mass/volume)on 03-22-2022 Urea nitrogen [Mass/Vol] 34 mg/dL 7-18 [facility] Work Phone: Thin prep Papanicolaou smear with manual screeningon 03-22-2022 Thin prep Papanicolaou smear with manual screening 6 5-15 [facility] Work Phone: Absolute lymphocyte counton 03-19-2022 Lymphocytes Auto (Unsp spec) [#/Vol] 1.26 10*3/uL 0.83-4.51 [facility] Work Phone: Basophil percentageon 2021 Basophil percentage Not Reportable [facility] Work Phone: Neutrophils (Bld) [#/Vol] 23.9 10*3/uL 2.0-7.7 [facility] Work Phone: [phone] WBC (Bld) [#/Vol] 25.2 10*3/uL 4.4-11.0 [facility] Work Phone: [phone] Blood band neutrophil count as percentage of total leukocyteson 03-19-2022 Band form neutrophils/100 WBC (Bld) 10 % 0-5 [facility] Work Phone: Blood erythrocytes count (nu mber/volume)on 03-19-2022 RBC (Bld) [#/Vol] 3.81 10*6/uL 4.2-5.4 [facility] Work Phone: Blood hemoglobin measurement (mass/volume)on 03-19-2022 Hemoglobin (Bld) [Mass/Vol] 10.6 g/dL 12.0-15.0 [facility] Work Phone: Blood lymphocytes/100 leukoc yteson 03-19-2022 Lymphocytes/100 WBC (Bld) 5 % 19-41 [facility] Work Phone: Blood metamyelocytes/100 mily kocyteson 03-19-2022 Metamyelocytes/100 WBC (Bld) 3 % 0-1 [facility] Work Phone: Blood platelet adequacy dete ction by light microscopyon 03-19-2022 Platelets LM Ql (Bld) ADEQUATE ADEQ [facility] Work Phone: Blood platelet mean volumeon 03-19-2022 Platelet mean volume (Bld) [Entitic vol] 10.1 fL 6.2-12.0 [facility] Work Phone: Blood segmented neutrophils/ 100 leukocyteson 03-19-2022 Segmented neutrophils/100 WBC (Bld) 82 % 47-70 [facility] Work Phone: Determination of erythrocyte mean corpuscular volume (MCV)on 03-19-2022 MCV (RBC) [Entitic vol] 87.9 fL 81-99 [facility] Work Phone: Erythrocyte sedimentation ra sy 03-19-2022 ESR (Bld) [Velocity] 32 mm/h 0-30 [facility] Work Phone: Hematocrit Auto (Bld) [Volum e fraction]on 03-19-2022 Hematocrit (Bld) [Volume fraction] 33.5 % 37-47 [facility] Work Phone: Laboratory - Hematology and Cell countson 03-19-2022 Erythrocyte distribution width (RBC) [Entitic vol] 47.6 fL 35.1-43.9 [facility] Work Phone: Erythrocyte distribution width (RBC) [Ratio] 14.8 % 11.6-14.6 [facility] Work Phone: MCH (RBC) [Entitic mass] 27.8 pg 27.0-32.0 [facility] Work Phone: MCHC Auto (RBC) [Mass/Vol]on 03-19-2022 MCHC (RBC) [Mass/Vol] 31.6 g/dL 32-36 [facility] Work Phone: Platelets bldon 03-19-2022 Platelets (Bld) [#/Vol] 291 10*3/uL 150-450 [facility] Work Phone: RBC morphologyon 03-19-2022 RBC morphology finding Nom (Bld) NORM C+C NORMAL NORM C&C [facility] Work Phone: Review by pathologiston 03-10 Pathologist review [place] (Unsp spec) [Interp] Reviewed [facility] Work Phone: Comment on above: Previous reported re sult: Kerline spivey Edited by: RGOOD on 03/19/22:1240Neutrophilic leukocytosis with left shift. Normocytic anemia.Clinical correlation necessary.Andrzej Denise M.D. 03/19/22 AMENDED REPORT 03/19/22 1240 PATH REV previously reported as: Kerline spivey Serum or plasma C reactive p rotein measurement (mass/volume)on 03-19-2022 CRP [Mass/Vol] 46.80 mg/L 0.0-3.0 [facility] Work Phone: Comment on above: C-Reactive Protein ( CRP) provides useful information for thediagnosis, therapy and monitoring of inflammatory processesand associated diseases. For the evaluation of Relative Riskfor Cardiovascular Disease, a High Sensitivity CRP (HSCRP)should be ordered. Total cell counton 2 Cells counted Molgen (Bld/Tiss) [#] 100 MANUAL DIFF [facility] Work Phone: Absolute lymphocyte counton 03-18-2022 Lymphocytes Auto (Unsp spec) [#/Vol] 1.25 10*3/uL 0.83-4.51 [facility] Work Phone: Basophil percentageon 2021 Basophil percentage 2.1 mg/dL 2.5-4.9 [facility]: Basophils/100 WBC (Bld) 0.3 % 0-1 [facility] Work Phone: Bilirubin [Mass/Vol] 0.20 mg/dL 0.20-1.00 [facility] Work Phone: Comment on above: For patients on eltr ombopag therapy, use of Dimension [place] TBIL is not recommended. Chloride [Moles/Vol] 114 mmol/L 98-107 [facility] Work Phone: Eosinophils/100 WBC (Bld) 0.0 % 0-5 [facility] Work Phone: Glucose [Mass/Vol] 202 mg/dL 74-106 [facility] Work Phone: Comment on above: Glucose result great er than or equal to 200 mg/dLsuggests DIABETES MELLITUS per A.D.A. criteria. Neutrophils (Bld) [#/Vol] 27.8 10*3/uL 2.0-7.7 [facility] Work Phone: Neutrophils/100 WBC (Bld) 90.4 % 47-70 [facility] Work Phone: Potassium [Moles/Vol] 4.6 mmol/L 3.5-5.1 [facility] Work Phone: Protein [Mass/Vol] 5.2 g/dL 6.4-8.2 [facility] Work Phone: Sodium [Moles/Vol] 141 mmol/L 136-145 [facility] Work Phone: WBC (Bld) [#/Vol] 30.7 10*3/uL 4.4-11.0 [facility] Work Phone: Comment on above: CRITICAL VALUE VERIF IED. CALLED TO SALOMÓN OIJWIU96/09/22 [id number] cSott Lora.RESULTS READ BACK BY SAME. Blood erythrocytes count (nu mber/volume)on 03-18-2022 RBC (Bld) [#/Vol] 3.85 10*6/uL 4.2-5.4 [facility] Work Phone: Blood hemoglobin measurement (mass/volume)on 03-18-2022 Hemoglobin (Bld) [Mass/Vol] 10.7 g/dL 12.0-15.0 [facility] Work Phone: Blood lymphocytes/100 leukoc yteson 03-18-2022 Lymphocytes/100 WBC (Bld) 4.1 % 19-41 [facility] Work Phone: Blood manual differential co mment interpretation (narrative result)on 03-18-2022 Manual differential comment Clayton (Bld) [Interp] SCANNED [facility] Work Phone: Blood monocytes/100 leukocyt eson 03-18-2022 Monocytes/100 WBC (Bld) 1.8 % 0-10 [facility] Work Phone: Blood platelet mean volumeon 03-18-2022 Platelet mean volume (Bld) [Entitic vol] 10.0 fL 6.2-12.0 [facility] Work Phone: [phone] Determination of erythrocyte mean corpuscular volume (MCV)on 03-18-2022 MCV (RBC) [Entitic vol] 88.1 fL 81-99 [facility] Work Phone: Glucose Glucometer (BldC) [M ass/Vol]on 03-18-2022 Glucose [Mass/Vol] 198 mg/dL 74-106 [facility] Work Phone: Comment on above: MANAGEMENT OF PATIEN T CARE PER NURSING PROTOCOL Hematocrit Auto (Bld) [Volum e fraction]on 03-18-2022 Hematocrit (Bld) [Volume fraction] 33.9 % 37-47 [facility] Work Phone: [phone] Laboratory - Chemistry and C hemistry - challengeon 03-18-2022 ALP [Catalytic activity/Vol] 91 U/L 45-117 [facility] Work Phone: [phone] ALT [Catalytic activity/Vol] U/L 13-56 [facility] Work Phone: [phone] CO2 [Moles/Vol] 24.0 mmol/L 21.0-32.0 [facility] Work Phone: [phone] Globulin (S) [Mass/Vol] 3.6 g/dL 2.2-4.2 [facility] Work Phone: [phone] Magnesium [Mass/Vol] 2.1 mg/dL 1.6-2.6 [facility] Work Phone: [phone] Urea nitrogen/Creatinine [Mass ratio] 32.8 mg/mg 10-20 [facility] Work Phone: [phone] Laboratory - Hematology and Cell countson 03-18-2022 Erythrocyte distribution width (RBC) [Entitic vol] 46.8 fL 35.1-43.9 [facility] Work Phone: [phone] Erythrocyte distribution width (RBC) [Ratio] 14.6 % 11.6-14.6 [facility] Work Phone: [phone] Immature granulocytes/100 WBC (Bld) 3.400 % 0.0-0.9 [facility] Work Phone: [phone] Comment on above: IG% - Immature Granu locytes (promyelocytes, myelocytes and metamyelocytes) > 1% indicates that a LEFT SHIFT is Present. MCH (RBC) [Entitic mass] 27.8 pg 27.0-32.0 [facility] Work Phone: [phone] Nucleated RBC/100 WBC (Bld) [Ratio] 0 % 0-5 [facility] Work Phone: [phone] MCHC Auto (RBC) [Mass/Vol]on 03-18-2022 MCHC (RBC) [Mass/Vol] 31.6 g/dL 32-36 [facility] Work Phone: No Panel Informationon 03-18 Estimated Creatinine Clearance Calc 35.49 ml/min [facility] Work Phone: Estimated GFR (MDRD) Amer 115 mL/min >60 [facility] Work Phone: Comment on above: GFR Calc Estimated GFR (MDRD) Non-Af Amer 95 mL/min >60 [facility] Work Phone: Comment on above: Non- GFR Calc Platelets bldon 03-18-2022 Platelets (Bld) [#/Vol] 336 10*3/uL 150-450 [facility] Work Phone: Review by pathologiston Pathologist review Clayton (Unsp spec) [Interp] Reviewed [facility] Work Phone: Comment on above: Previous reported re sult: Kerline spivey Edited by: RGOOD on 03/18/22:1236Neutrophilic leukocytosis with left shift. Normocytic anemia.Clinical correlation necessary.Andrzej Denise M.D. 03/18/22 AMENDED REPORT 03/18/22 1236 PATH REV previously reported as: Kerline spivey Serum or plasma albumin latesha urement (mass/volume)on 03-18-2022 Albumin [Mass/Vol] 1.6 g/dL 3.2-5.0 [facility] Work Phone: [phone] Serum or plasma albumin/glob ulin mass ratioon 03-18-2022 Albumin/Globulin [Mass ratio] 0.4 {ratio} 0.9-2.4 [facility] Work Phone: [phone] Serum or plasma calcium latesha urement (mass/volume)on 03-18-2022 Calcium [Mass/Vol] 8.1 mg/dL 8.5-10.1 [facility] Work Phone: [phone] Serum or plasma creatinine m easurement (mass/volume)on 03-18-2022 Creatinine [Mass/Vol] 0.64 mg/dL 0.55-1.02 [facility] Work Phone: Comment on above: The validity of the calculated GFR & GFRAA in patients over 70 years has not been determined. Clinical correlation is essential. Serum or plasma urea nitroge n measurement (mass/volume)on 03-18-2022 Urea nitrogen [Mass/Vol] 21 mg/dL 7-18 [facility] Work Phone: [phone] Thin prep Papanicolaou smear with manual screeningon 03-18-2022 Thin prep Papanicolaou smear with manual screening 5 U/L 15-37 [facility] Work Phone: [phone] Thin prep Papanicolaou smear with manual screening 3 5-15 [facility] Work Phone: [phone] Basophil percentageon 2021 Triglyceride [Mass/Vol] 50 mg/dL <199 [facility] Work Phone: Comment on above: The drugs N-Acetylcy steine and Metamizole may falsely depress this assay.Serum Triglycerides Reference Interval Normal <150 mg/dL Borderline high 150 - 199 mg/dL High 200 - 499 mg/dL Very High > or = 500 mg/dL Basophil percentageon 2021 Lactate [Moles/Vol] 0.7 mmol/L 0.4-2.0 [facility] Work Phone: Basophil percentage 0-5 SEEN /hpf 0-5 [facility] Work Phone: [phone] Bilirubin Test strip Ql (U)o n 03-15-2022 Bilirubin Ql (U) 1 mg/dL Negative [facility] Work Phone: Comment on above: COLOR OF URINE MAY A FFECT DIPSTICK RESULTS. Ketones Test strip Ql (U)on 03-15-2022 Ketones Ql (U) 150 mg/dl Negative [facility] Work Phone: Comment on above: CRITICAL VALUE *H Laboratory - Microbiology an d Antimicrobial susceptibilityon 03-15-2022 Bacteria identified Cx Nom (Bld) No growth in 5 days. [facility] Work Phone: [phone] Mucus LM Ql (Urine sed)on Mucus Ql (Urine sed) 1+ /hpf [facility] Work Phone: Nitrite Test strip Ql (U)on 03-15-2022 Nitrite Ql (U) Negative Negative [facility] Work Phone: No Panel Informationon 03-15 Stool Calprotectin 271 ug/g 0-120 [facility] Work Phone: Comment on above: Concentration Interp retation Follow-Up<16 - 50 ug/g Normal None>50 -120 ug/g Borderline Re-evaluate in 4-6 weeks >120 ug/g Abnormal Repeat as clinically indicatedPerformed at: [facility] Lab[address] [id number] Director: Davina Leonardo MD, Phone: [phone] Protein Test strip Ql (U)on 03-15-2022 Protein Ql (U) 100 mg/dl Negative [facility] Work Phone: Squamous epithelial cells de tection in urine sediment by light microscopyon 03-15-2022 Epithelial cells.squamous LM Ql (Urine sed) 0-5 SEEN /hpf 5-10 [facility] Work Phone: Urine blood detectionon RBC Ql (U) 250 /ul Negative [facility] Work Phone: RBC Ql (U) 0-5 SEEN /hpf 0-5 [facility] Work Phone: Urine clarityon 03-15-2022 Clarity (U) Clear Clear [facility] Work Phone: Urine color determinationon 03-15-2022 Color (U) Yellow Yellow [facility] Work Phone: Urine glucose detectionon Glucose Ql (U) Normal mg/dl Normal [facility] Work Phone: Urine leukocyte esterase det ection by dipstickon 03-15-2022 Leukocyte esterase Test strip Ql (U) 100 /ul Negative [facility] Work Phone: Urine pHon 03-15-2022 pH (U) 6.0 [pH] 5.0 - 8.0 [facility] Work Phone: Urine sediment bacteria coun t by microscopy (number/high power field)on 03-15-2022 Bacteria LM.HPF (Urine sed) [#/Area] 1 /[HPF] None Seen [facility] Work Phone: Urine specific gravity measu rementon 03-15-2022 Specific gravity (U) [Rel density] 1.020 1.002-1.030 [facility] Work Phone: Urobilinogen Auto test strip Ql (U)on 03-15-2022 Urobilinogen Ql (U) Normal mg/dl Normal [facility] Work Phone: Absolute lymphocyte counton 03-14-2022 Lymphocytes Auto (Unsp spec) [#/Vol] 1.64 10*3/uL 0.83-4.51 [facility] Work Phone: Basophil percentageon 2021 Basophils/100 WBC (Bld) 0.4 % 0-1 [facility] Work Phone: Bilirubin [Mass/Vol] 0.40 mg/dL 0.20-1.00 [facility] Work Phone: Comment on above: For patients on eltr ombopag therapy, use of Dimension Polo TBIL is not recommended. Chloride [Moles/Vol] 99 mmol/L 98-107 [facility] Work Phone: Eosinophils/100 WBC (Bld) 0.1 % 0-5 [facility] Work Phone: Glucose [Mass/Vol] 117 mg/dL 74-106 [facility] Work Phone: Comment on above: Fasting Glucose resu lt from 100 to 125 mg/dL suggests IMPAIRED HOMEOSTASIS per A.D.A. criteria. Neutrophils (Bld) [#/Vol] 29.0 10*3/uL 2.0-7.7 [facility] Work Phone: Neutrophils/100 WBC (Bld) 86.4 % 47-70 [facility] Work Phone: Potassium [Moles/Vol] 3.1 mmol/L 3.5-5.1 [facility] Work Phone: Protein [Mass/Vol] 6.9 g/dL 6.4-8.[address] [facility] [facility] Work Phone: Sodium [Moles/Vol] 136 mmol/L 136-145 [facility] Work Phone: WBC (Bld) [#/Vol] 33.5 10*3/uL 4.4-11.0 [facility]: Blood erythrocytes count (nu mber/volume)on 03-14-2022 RBC (Bld) [#/Vol] 4.70 10*6/uL 4.2-5.4 [facility] Work Phone: Blood hemoglobin measurement (mass/volume)on 03-14-2022 Hemoglobin (Bld) [Mass/Vol] 13.2 g/dL 12.0-15.0 [facility] Work Phone: Blood lymphocytes/100 leukoc yteson 03-14-2022 Lymphocytes/100 WBC (Bld) 4.9 % 19-41 [facility] Work Phone: Blood monocytes/100 leukocyt eson 03-14-2022 Monocytes/100 WBC (Bld) 5.7 % 0-10 [facility] Work Phone: Blood platelet mean volumeon 03-14-2022 Platelet mean volume (Bld) [Entitic vol] 10.6 fL 6.2-12.0 [facility] Work Phone: Determination of erythrocyte mean corpuscular volume (MCV)on 03-14-2022 MCV (RBC) [Entitic vol] 86.4 fL 81-99 [facility] Work Phone: Erythrocyte sedimentation ra sy 03-14-2022 ESR (Bld) [Velocity] 38 mm/h 0-30 [facility]: [phone] Hematocrit Auto (Bld) [Volum e fraction]on 03-14-2022 Hematocrit (Bld) [Volume fraction] 40.6 % 37-47 [facility] Work Phone: [phone] Laboratory - Chemistry and C hemistry - challengeon 03-14-2022 ALP [Catalytic activity/Vol] 120 U/L 45-117 [facility] Work Phone: [phone] ALT [Catalytic activity/Vol] 8 U/L 13-56 [facility] Work Phone: [phone] CO2 [Moles/Vol] 30.0 mmol/L 21.0-32.0 [facility] Work Phone: [phone] Globulin (S) [Mass/Vol] 4.5 g/dL 2.2-4.2 [facility] Work Phone: [phone] Lipase [Catalytic activity/Vol] 125 U/L 73-393 [facility] Work Phone: [phone] Urea nitrogen/Creatinine [Mass ratio] 11.8 mg/mg 10-20 [facility] Work Phone: [phone] Laboratory - Hematology and Cell countson 03-14-2022 Erythrocyte distribution width (RBC) [Entitic vol] 46.6 fL 35.1-43.9 [facility] Work Phone: [phone] Erythrocyte distribution width (RBC) [Ratio] 14.6 % 11.6-14.6 [facility] Work Phone: [phone] Immature granulocytes/100 WBC (Bld) 2.500 % 0.0-0.9 [facility] Work Phone: [phone] Comment on above: IG% - Immature Granu locytes (promyelocytes, myelocytes and metamyelocytes) > 1% indicates that a LEFT SHIFT is Present. MCH (RBC) [Entitic mass] 28.1 pg 27.0-32.0 [facility] Work Phone: [phone] Nucleated RBC/100 WBC (Bld) [Ratio] 0 % 0-5 [facility] Work Phone: [phone] MCHC Auto (RBC) [Mass/Vol]on 03-14-2022 MCHC (RBC) [Mass/Vol] 32.5 g/dL 32-36 [facility] Work Phone: [phone] Panel Informationon 03-14 Estimated Creatinine Clearance Calc 40.83 ml/min [facility] Work Phone: [phone] Estimated GFR (MDRD) Amer 83 mL/min >60 [facility] Work Phone: [phone] Comment on above: GFR Calc Estimated GFR (MDRD) Non-Af Amer 68 mL/min >60 [facility] Work Phone: [phone] Comment on above: Non- GFR Calc Platelets bldon 03-14-2022 Platelets (Bld) [#/Vol] 375 10*3/uL 150-450 [facility] Work Phone: Review by pathologiston Pathologist review Clayton (Unsp spec) [Interp] Kerline spivey [facility] Work Phone: [phone] Serum or plasma C reactive p rotein measurement (mass/volume)on 03-14-2022 CRP [Mass/Vol] 294.00 mg/L 0.0-3.0 [facility] Work Phone: [phone] Comment on above: C-Reactive Protein ( CRP) provides useful information for thediagnosis, therapy and monitoring of inflammatory processesand associated diseases. For the evaluation of Relative Riskfor Cardiovascular Disease, a High Sensitivity CRP (HSCRP)should be ordered. Serum or plasma albumin latesha urement (mass/volume)on 03-14-2022 Albumin [Mass/Vol] 2.4 g/dL 3.2-5.0 [facility] Work Phone: [phone] Serum or plasma albumin/glob ulin mass ratioon 03-14-2022 Albumin/Globulin [Mass ratio] 0.5 {ratio} 0.9-2.4 [facility] Work Phone: [phone] Serum or plasma calcium latesha urement (mass/volume)on 03-14-2022 Calcium [Mass/Vol] 8.4 mg/dL 8.5-10.1 [facility] Work Phone: Serum or plasma creatinine m easurement (mass/volume)on 03-14-2022 Creatinine [Mass/Vol] 0.85 mg/dL 0.55-1.02 [facility] Work Phone: Comment on above: The validity of the calculated GFR & GFRAA in patients over 70 years has not been determined. Clinical correlation is essential. Serum or plasma urea nitroge n measurement (mass/volume)on 03-14-2022 Urea nitrogen [Mass/Vol] 10 mg/dL 7-18 [facility] Work Phone: Thin prep Papanicolaou smear with manual screeningon 03-14-2022 Thin prep Papanicolaou smear with manual screening 11 U/L 15-37 [facility] Work Phone: Thin prep Papanicolaou smear with manual screening 7 5-15 [facility] Work Phone: [phone] Absolute lymphocyte counton 02-17-2022 Lymphocytes Auto (Unsp spec) [#/Vol] 0.68 10*3/uL 0.83-4.51 [facility] Work Phone: Basophil percentageon 2021 Basophils/100 WBC (Bld) 0.1 % 0-1 [facility] Work Phone: Bilirubin [Mass/Vol] 0.30 mg/dL 0.20-1.00 [facility] Work Phone: Comment on above: For patients on eltr ombopag therapy, use of Dimension Polo TBIL is not recommended. Chloride [Moles/Vol] 102 mmol/L 98-107 [facility] Work Phone: Eosinophils/100 WBC (Bld) 0.0 % 0-5 [facility] Work Phone: [phone] Glucose [Mass/Vol] 117 mg/dL 74-106 [facility] Work Phone: Comment on above: Fasting Glucose resu lt from 100 to 125 mg/dL suggests IMPAIRED HOMEOSTASIS per A.D.A. criteria. Neutrophils (Bld) [#/Vol] 14.9 10*3/uL 2.0-7.7 [facility] Work Phone: [phone] Neutrophils/100 WBC (Bld) 94.0 % 47-70 [facility] Work Phone: [phone] Potassium [Moles/Vol] 5.2 mmol/L 3.5-5.1 [facility] Work Phone: [phone] Protein [Mass/Vol] 7.0 g/dL 6.4-8.2 [facility] Work Phone: [phone] Sodium [Moles/Vol] 137 mmol/L 136-145 [facility] Work Phone: [phone] WBC (Bld) [#/Vol] 15.9 10*3/uL 4.4-11.0 [facility] Work Phone: [phone] Blood erythrocytes count (nu mber/volume)on 02-17-2022 RBC (Bld) [#/Vol] 4.48 10*6/uL 4.2-5.4 [facility] Work Phone: [phone] Blood hemoglobin measurement (mass/volume)on 02-17-2022 Hemoglobin (Bld) [Mass/Vol] 12.9 g/dL 12.0-15.0 [facility] Work Phone: [phone] Blood lymphocytes/100 leukoc yteson 02-17-2022 Lymphocytes/100 WBC (Bld) 4.3 % 19-41 [facility] Work Phone: [phone] Blood monocytes/100 leukocyt eson 02-17-2022 Monocytes/100 WBC (Bld) 0.5 % 0-10 [facility] Work Phone: [phone] Blood platelet mean volumeon 02-17-2022 Platelet mean volume (Bld) [Entitic vol] 10.7 fL 6.2-12.0 [facility] Work Phone: [phone] Determination of erythrocyte mean corpuscular volume (MCV)on 02-17-2022 MCV (RBC) [Entitic vol] 92.0 fL 81-99 [facility] Work Phone: [phone] Hematocrit Auto (Bld) [Volum e fraction]on 02-17-2022 Hematocrit (Bld) [Volume fraction] 41.2 % 37-47 [facility] Work Phone: [phone] Laboratory - Chemistry and C hemistry - challengeon 02-17-2022 ALP [Catalytic activity/Vol] 68 U/L 45-117 [facility] Work Phone: [phone] ALT [Catalytic activity/Vol] 16 U/L 13-56 [facility] Work Phone: [phone] CO2 [Moles/Vol] 30.0 mmol/L 21.0-32.0 [facility] Work Phone: [phone] Globulin (S) [Mass/Vol] 4.0 g/dL 2.2-4.2 [facility] Work Phone: [phone] Magnesium [Mass/Vol] 2.4 mg/dL 1.6-2.6 [facility] Work Phone: [phone] Urea nitrogen/Creatinine [Mass ratio] 18.4 mg/mg 10-20 [facility] Work Phone: [phone] Laboratory - Hematology and Cell countson 02-17-2022 Erythrocyte distribution width (RBC) [Entitic vol] 54.7 fL 35.1-43.9 [facility] Work Phone: [phone] Erythrocyte distribution width (RBC) [Ratio] 16.6 % 11.6-14.6 [facility] Work Phone: [phone] Immature granulocytes/100 WBC (Bld) 1.100 % 0.0-0.9 [facility] Work Phone: [phone] Comment on above: IG% - Immature Granu locytes (promyelocytes, myelocytes and metamyelocytes) > 1% indicates that a LEFT SHIFT is Present. MCH (RBC) [Entitic mass] 28.8 pg 27.0-32.0 [facility] Work Phone: [phone] Nucleated RBC/100 WBC (Bld) [Ratio] 0 % 0-5 [facility] Work Phone: [phone] MCHC Auto (RBC) [Mass/Vol]on 02-17-2022 MCHC (RBC) [Mass/Vol] 31.3 g/dL 32-36 [facility] Work Phone: No Panel Informationon 02-17 Estimated GFR (MDRD) Amer 94 mL/min >60 [facility] Work Phone: Comment on above: GFR Calc Estimated GFR (MDRD) Non-Af Amer 77 mL/min >60 [facility] Work Phone: Comment on above: Non- GFR Calc Thyroid Stimulating Hormone (TSH) 0.80 uIU/mL 0.358-3.74 [facility] Work Phone: Platelets bldon 02-17-2022 Platelets (Bld) [#/Vol] 506 10*3/uL 150-450 [facility] Work Phone: Serum or plasma albumin latesha urement (mass/volume)on 02-17-2022 Albumin [Mass/Vol] 3.0 g/dL 3.2-5.0 [facility] Work Phone: Serum or plasma albumin/glob ulin mass ratioon 02-17-2022 Albumin/Globulin [Mass ratio] 0.8 {ratio} 0.9-2.4 [facility] Work Phone: Serum or plasma calcium latesha urement (mass/volume)on 02-17-2022 Calcium [Mass/Vol] 9.2 mg/dL 8.5-10.1 [facility] Work Phone: [phone] Serum or plasma creatinine m easurement (mass/volume)on 02-17-2022 Creatinine [Mass/Vol] 0.76 mg/dL 0.55-1.02 [facility] Work Phone: Comment on above: The validity of the calculated GFR & GFRAA in patients over 70 years has not been determined. Clinical correlation is essential. Serum or plasma urea nitroge n measurement (mass/volume)on 02-17-2022 Urea nitrogen [Mass/Vol] 14 mg/dL 7-18 [facility] Work Phone: [phone] Thin prep Papanicolaou smear with manual screeningon 02-17-2022 Thin prep Papanicolaou smear with manual screening 18 U/L 15-37 [facility] Work Phone: Thin prep Papanicolaou smear with manual screening 5 5-15 [facility] Work Phone: Absolute lymphocyte counton 02-12-2022 Lymphocytes Auto (Unsp spec) [#/Vol] 2.20 10*3/uL 0.83-4.51 [facility] Work Phone: Basophil percentageon 2021 Basophil percentage 0 SEEN /hpf 0-5 [facility] Work Phone: Basophils/100 WBC (Bld) 0.4 % 0-1 [facility] Work Phone: Chloride [Moles/Vol] 110 mmol/L 98-107 [facility] Work Phone: Eosinophils/100 WBC (Bld) 3.0 % 0-5 [facility] Work Phone: Glucose [Mass/Vol] 94 mg/dL 74-106 [facility] Work Phone: Neutrophils (Bld) [#/Vol] 10.8 10*3/uL 2.0-7.7 [facility] Work Phone: Neutrophils/100 WBC (Bld) 74.2 % 47-70 [facility] Work Phone: Potassium [Moles/Vol] 3.8 mmol/L 3.5-5.1 [facility] Work Phone: Sodium [Moles/Vol] 142 mmol/L 136-145 [facility] Work Phone: WBC (Bld) [#/Vol] 14.6 10*3/uL 4.4-11.0 [facility] Work Phone: Bilirubin Test strip Ql (U)o n 02-12-2022 Bilirubin Ql (U) Negative Negative [facility] Work Phone: Blood erythrocytes count (nu mber/volume)on 02-12-2022 RBC (Bld) [#/Vol] 3.85 10*6/uL 4.2-5.4 [facility] Work Phone: Blood hemoglobin measurement (mass/volume)on 02-12-2022 Hemoglobin (Bld) [Mass/Vol] 11.1 g/dL 12.0-15.0 [facility] Work Phone: Blood lymphocytes/100 leukoc yteson 02-12-2022 Lymphocytes/100 WBC (Bld) 15.1 % 19-41 [facility] Work Phone: [phone] Blood monocytes/100 leukocyt eson 02-12-2022 Monocytes/100 WBC (Bld) 6.5 % 0-10 [facility] Work Phone: Blood platelet mean volumeon 02-12-2022 Platelet mean volume (Bld) [Entitic vol] 10.2 fL 6.2-12.0 [facility] Work Phone: Determination of erythrocyte mean corpuscular volume (MCV)on 02-12-2022 MCV (RBC) [Entitic vol] 90.4 fL 81-99 [facility] Work Phone: Erythrocyte sedimentation ra sy 02-12-2022 ESR (Bld) [Velocity] 56 mm[facility]h 0-[facility]: Hematocrit Auto (Bld) [Volum e fraction]on 02-12-2022 Hematocrit (Bld) [Volume fraction] 34.8 % 37-47 [facility] Work Phone: Ketones Test strip Ql (U)on 02-12-2022 Ketones Ql (U) Negative Negative [facility] Work Phone: Laboratory - Chemistry and C hemistry - challengeon 02-12-2022 CK [Catalytic activity/Vol] 19 U/L 26-192 [facility] Work Phone: CO2 [Moles/Vol] 27.0 mmol/L 21.0-32.0 [facility] Work Phone: Urea nitrogen/Creatinine [Mass ratio] 3.0 mg/mg 10-20 [facility] Work Phone: [phone] Laboratory - Hematology and Cell countson 02-12-2022 Erythrocyte distribution width (RBC) [Entitic vol] 50.0 fL 35.1-43.9 [facility] Work Phone: [phone] Erythrocyte distribution width (RBC) [Ratio] 15.5 % 11.6-14.6 [facility] Work Phone: [phone] Immature granulocytes/100 WBC (Bld) 0.800 % 0.0-0.9 [facility] Work Phone: [phone] Comment on above: IG% - Immature Granu locytes (promyelocytes, myelocytes and metamyelocytes) > 1% indicates that a LEFT SHIFT is Present. MCH (RBC) [Entitic mass] 28.8 pg 27.0-32.0 [facility] Work Phone: [phone] Nucleated RBC/100 WBC (Bld) [Ratio] 0 % 0-5 [facility] Work Phone: [phone] MCHC Auto (RBC) [Mass/Vol]on 02-12-2022 MCHC (RBC) [Mass/Vol] 31.9 g/dL 32-36 [facility] Work Phone: [phone] Mucus LM Ql (Urine sed)on Mucus Ql (Urine sed) 0 SEEN /hpf [facility] Work Phone: [phone] Nitrite Test strip Ql (U)on 02-12-2022 Nitrite Ql (U) Negative Negative [facility] Work Phone: [phone] Panel Informationon 02-12 Estimated Creatinine Clearance Calc 34.64 ml/min [facility] Work Phone: [phone] Estimated GFR (MDRD) Amer 111 mL/min >60 [facility] Work Phone: [phone] Comment on above: GFR Calc Estimated GFR (MDRD) Non-Af Amer 92 mL/min >60 [facility] Work Phone: [phone] Comment on above: Non- GFR Calc Platelets bldon 02-12-2022 Platelets (Bld) [#/Vol] 359 10*3/uL 150-450 [facility] Work Phone: Protein Test strip Ql (U)on 02-12-2022 Protein Ql (U) Negative Negative [facility] Work Phone: Serum or plasma C reactive p rotein measurement (mass/volume)on 02-12-2022 CRP [Mass/Vol] 17.20 mg/L 0.0-3.0 [facility] Work Phone: Comment on above: C-Reactive Protein ( CRP) provides useful information for thediagnosis, therapy and monitoring of inflammatory processesand associated diseases. For the evaluation of Relative Riskfor Cardiovascular Disease, a High Sensitivity CRP (HSCRP)should be ordered. Serum or plasma calcium latesha urement (mass/volume)on 02-12-2022 Calcium [Mass/Vol] 7.9 mg/dL 8.5-10.1 [facility] Work Phone: Serum or plasma cortisol derick surement (mass/volume)on 02-12-2022 Cortisol [Mass/Vol] 16.60 ug/dL 3.44-22.45 [facility] Work Phone: Comment on above: Adult (AM) 5.27 - 22 .45 ug/dL Adult (PM) 3.44 - 16.76 ug/dLPlease note revised CORTISOL reference range effective 2019. Serum or plasma creatinine m easurement (mass/volume)on 02-12-2022 Creatinine [Mass/Vol] 0.66 mg/dL 0.55-1.02 [facility] Work Phone: Comment on above: The validity of the calculated GFR & GFRAA in patients over 70 years has not been determined. Clinical correlation is essential. Serum or plasma urea nitroge n measurement (mass/volume)on 02-12-2022 Urea nitrogen [Mass/Vol] 2 mg/dL 7-18 [facility] Work Phone: Squamous epithelial cells de tection in urine sediment by light microscopyon 02-12-2022 Epithelial cells.squamous LM Ql (Urine sed) 0 SEEN /hpf 5-10 [facility] Work Phone: Thin prep Papanicolaou smear with manual screeningon 02-12-2022 Thin prep Papanicolaou smear with manual screening 5 5-15 [facility] Work Phone: Thin prep Papanicolaou smear with manual screening 170 U/L 84-246 [facility] Work Phone: Urine blood detectionon 05-0 RBC Ql (U) Negative Negative [facility] Work Phone: RBC Ql (U) 0 SEEN /hpf 0-5 [facility] Work Phone: Urine clarityon 02-12-2022 Clarity (U) Clear Clear [facility] Work Phone: Urine color determinationon 02-12-2022 Color (U) Straw Yellow [facility] Work Phone: Urine glucose detectionon Glucose Ql (U) Normal mg/dl Normal [facility] Work Phone: Urine leukocyte esterase det ection by dipstickon 02-12-2022 Leukocyte esterase Test strip Ql (U) Negative Negative [facility] Work Phone: Urine pHon 02-12-2022 pH (U) 7.0 [pH] 5.0 - 8.0 [facility] Work Phone: Urine sediment bacteria coun t by microscopy (number/high power field)on 02-12-2022 Bacteria LM.HPF (Urine sed) [#/Area] 0 /[HPF] None Seen [facility] Work Phone: Urine specific gravity measu rementon 02-12-2022 Specific gravity (U) [Rel density] 1.010 1.002-1.030 [facility] Work Phone: Urobilinogen Auto test strip Ql (U)on 02-12-2022 Urobilinogen Ql (U) Normal mg/dl Normal [facility] Work Phone: Laboratory - Chemistry and C hemistry - challengeon 02-10-2022 Magnesium [Mass/Vol] 1.7 mg/dL 1.6-2.6 [facility] Work Phone: Absolute lymphocyte counton 02-09-2022 Lymphocytes Auto (Unsp spec) [#/Vol] 1.99 10*3/uL 0.83-4.51 [facility] Work Phone: Basophil percentageon 2021 Basophils/100 WBC (Bld) 0.4 % 0-1 [facility] Work Phone: Chloride [Moles/Vol] 109 mmol/L 98-107 [facility] Work Phone: Eosinophils/100 WBC (Bld) 2.2 % 0-5 [facility] Work Phone: Glucose [Mass/Vol] 94 mg/dL 74-106 [facility] Work Phone: Neutrophils (Bld) [#/Vol] 16.2 10*3/uL 2.0-7.7 [facility] Work Phone: Neutrophils/100 WBC (Bld) 80.9 % 47-70 [facility] Work Phone: Potassium [Moles/Vol] 3.4 mmol/L 3.5-5.1 [facility] Work Phone: Sodium [Moles/Vol] 140 mmol/L 136-145 [facility] Work Phone: WBC (Bld) [#/Vol] 20.1 10*3/uL 4.4-11.0 [facility] Work Phone: Blood erythrocytes count (nu mber/volume)on 02-09-2022 RBC (Bld) [#/Vol] 3.75 10*6/uL 4.2-5.4 [facility] Work Phone: Blood hemoglobin measurement (mass/volume)on 02-09-2022 Hemoglobin (Bld) [Mass/Vol] 10.7 g/dL 12.0-15.0 [facility] Work Phone: Blood lymphocytes/100 leukoc yteson 02-09-2022 Lymphocytes/100 WBC (Bld) 9.9 % 19-41 [facility] Work Phone: [phone] Blood monocytes/100 leukocyt eson 02-09-2022 Monocytes/100 WBC (Bld) 5.2 % 0-10 [facility] Work Phone: Blood platelet mean volumeon 02-09-2022 Platelet mean volume (Bld) [Entitic vol] 10.3 fL 6.2-12.0 [facility] Work Phone: [phone] Determination of erythrocyte mean corpuscular volume (MCV)on 02-09-2022 MCV (RBC) [Entitic vol] 90.9 fL 81-99 [facility] Work Phone: [phone] Hematocrit Auto (Bld) [Volum e fraction]on 02-09-2022 Hematocrit (Bld) [Volume fraction] 34.1 % 37-47 [facility] Work Phone: Laboratory - Chemistry and C hemistry - challengeon 02-09-2022 CO2 [Moles/Vol] 26.0 mmol/L 21.0-32.0 [facility] Work Phone: Urea nitrogen/Creatinine [Mass ratio] 3.2 mg/mg 10-20 [facility] Work Phone: [phone] Laboratory - Hematology and Cell countson 02-09-2022 Erythrocyte distribution width (RBC) [Entitic vol] 49.1 fL 35.1-43.9 [facility] Work Phone: [phone] Erythrocyte distribution width (RBC) [Ratio] 14.8 % 11.6-14.6 [facility] Work Phone: [phone] Immature granulocytes/100 WBC (Bld) 1.400 % 0.0-0.9 [facility] Work Phone: [phone] Comment on above: IG% - Immature Granu locytes (promyelocytes, myelocytes and metamyelocytes) > 1% indicates that a LEFT SHIFT is Present. MCH (RBC) [Entitic mass] 28.5 pg 27.0-32.0 [facility] Work Phone: Nucleated RBC/100 WBC (Bld) [Ratio] 0 % 0-5 [facility] Work Phone: MCHC Auto (RBC) [Mass/Vol]on 02-09-2022 MCHC (RBC) [Mass/Vol] 31.4 g/dL 32-36 [facility] Work Phone: No Panel Informationon 02-09 Estimated Creatinine Clearance Calc 34.64 ml/min [facility] Work Phone: Estimated GFR (MDRD) Amer 116 mL/min >60 [facility] Work Phone: Comment on above: GFR Calc Estimated GFR (MDRD) Non-Af Amer 96 mL/min >60 [facility] Work Phone: Comment on above: Non- GFR Calc Platelets bldon 02-09-2022 Platelets (Bld) [#/Vol] 310 10*3/uL 150-450 [facility] Work Phone: Serum or plasma calcium latesha urement (mass/volume)on 02-09-2022 Calcium [Mass/Vol] 7.4 mg/dL 8.5-10.1 [facility] Work Phone: [phone] Serum or plasma creatinine m easurement (mass/volume)on 02-09-2022 Creatinine [Mass/Vol] 0.63 mg/dL 0.55-1.02 [facility] Work Phone: Comment on above: The validity of the calculated GFR & GFRAA in patients over 70 years has not been determined. Clinical correlation is essential. Serum or plasma urea nitroge n measurement (mass/volume)on 02-09-2022 Urea nitrogen [Mass/Vol] 2 mg/dL 7-18 [facility] Work Phone: [phone] Thin prep Papanicolaou smear with manual screeningon 02-09-2022 Thin prep Papanicolaou smear with manual screening 5 5-15 [facility] Work Phone: [phone] Serum or plasma cytomegalovi yasmani (CMV) IgM antibody assay (units/volume)on 02-07-2022 CMV IgM Qn < 30.0 AU/mL 0.0-29.9 [facility] Work Phone: Comment on above: Negative <30.0 Equiv ocal 30.0 - 34.9 Positive >34.9A positive result is generally indicative of acuteinfection, reactivation or persistent IgM production.Performed at: [facility] [id number] Director: Surya Washington PhD, Phone: [phone] Vancomycin troughon 02-08-20 Vancomycin trough [Mass/Vol] 9.9 ug/mL 5.0-15.0 [facility] Work Phone: Comment on above: VANCOMYCIN STANDARED DRUG THERAPY TROUGH LEVEL: 5.0 - 15.0 mg/L VANCOMYCIN HIGH INTENSITY THERAPY TROUGH LEVEL: 15.0 - 20.0 mg/L High Intensity therapy recommended for serious lifethreatening infections include:- Xmhsarbigl-Xbzgnhafuibc-Qbqolngfm (Ventilator/Healtcare Associated)-Sepsis PLEASE CONTACT PHARMACY SERVICES (#[id number]) FOR INTERPRETATIONOF RESULTS. Basophil percentageon 2021 Lactate [Moles/Vol] 1.8 mmol/L 0.4-2.0 [facility] Work Phone: [phone] Bilirubin [Mass/Vol] 0.20 mg/dL 0.20-1.00 [facility] Work Phone: Comment on above: For patients on eltr ombopag therapy, use of Dimension Polo TBIL is not recommended. Protein [Mass/Vol] 5.8 g/dL 6.4-8.2 [facility] Work Phone: Blood manual differential co mment interpretation (narrative result)on 02-05-2022 Manual differential comment Clayton (Bld) [Interp] SCANNED [facility] Work Phone: Comment on above: NEUTROPHILIA NOTED Direct bilirubinon 2 Bilirubin.direct [Mass/Vol] 0.08 mg/dL 0.00-0.30 [facility] Work Phone: [phone] Laboratory - Chemistry and C hemistry - challengeon 02-05-2022 ALP [Catalytic activity/Vol] 89 U/L 45-117 [facility] Work Phone: [phone] ALT [Catalytic activity/Vol] U/L 13-56 [facility] Work Phone: [phone] Globulin (S) [Mass/Vol] 3.6 g/dL 2.2-4.2 [facility] Work Phone: [phone] Laboratory - Microbiology an d Antimicrobial susceptibilityon 02-05-2022 Bacteria identified Cx Nom (Bld) Presumptive Micrococcus spp. [facility] Work Phone: [phone] Bacteria identified Cx Nom (Bld) No growth in 5 days. [facility] Work Phone: [phone] Panel Informationon 02-05 Bacteria Detection (PCR) [facility] Work Phone: [phone] Serum or plasma C reactive p rotein measurement (mass/volume)on 02-05-2022 CRP [Mass/Vol] 102.00 mg/L 0.0-3.0 [facility] Work Phone: [phone] Comment on above: C-Reactive Protein ( CRP) provides useful information for thediagnosis, therapy and monitoring of inflammatory processesand associated diseases. For the evaluation of Relative Riskfor Cardiovascular Disease, a High Sensitivity CRP (HSCRP)should be ordered. Serum or plasma albumin latesha urement (mass/volume)on 02-05-2022 Albumin [Mass/Vol] 2.2 g/dL 3.2-5.0 [facility] Work Phone: [phone] Thin prep Papanicolaou smear with manual screeningon 02-05-2022 Thin prep Papanicolaou smear with manual screening 6 U/L 15-37 [facility] Work Phone: [phone] Thin prep Papanicolaou smear with manual screening 183 U/L 84-246 [facility] Work Phone: [phone] Panel Informationon 02-04 Stool Calprotectin 2837 ug/g 0-120 [facility] Work Phone: [phone] Comment on above: Concentration Interp retation Follow-Up<16 - 50 ug/g Normal None>50 -120 ug/g Borderline Re-evaluate in 4-6 weeks >120 ug/g Abnormal Repeat as clinically indicatedPerformed at: - [facility] [id number] Director: Davina Leonardo MD, Phone: [phone] Serum or plasma albumin/glob ulin mass ratioon 02-04-2022 Albumin/Globulin [Mass ratio] 0.6 {ratio} 0.9-2.4 [facility] Work Phone: Absolute lymphocyte counton 02-03-2022 Lymphocytes Auto (Unsp spec) [#/Vol] 2.07 10*3/uL 0.83-4.51 [facility] Work Phone: Lymphocytes Auto (Unsp spec) [#/Vol] 2.70 10*3/uL 0.83-4.51 [facility] Work Phone: Basophil percentageon 2021 Basophil percentage 0-5 SEEN /hpf [facility] Work Phone: Basophils/100 WBC (Bld) 0.5 % 0-1 [facility] Work Phone: Chloride [Moles/Vol] 103 mmol/L 98-107 [facility]: Eosinophils/100 WBC (Bld) 1.1 % 0-5 [facility] Work Phone: Glucose [Mass/Vol] 101 mg/dL 74-106 [facility] Work Phone: Comment on above: Fasting Glucose resu lt from 100 to 125 mg/dL suggests IMPAIRED HOMEOSTASIS per A.D.A. criteria. Lactate [Moles/Vol] 1.1 mmol/L 0.4-2.0 [facility] Work Phone: Neutrophils (Bld) [#/Vol] 17.6 10*3/uL 2.0-7.7 [facility] Work Phone: Neutrophils/100 WBC (Bld) 81.3 % 47-70 [facility] Work Phone: Potassium [Moles/Vol] 3.5 mmol/L 3.5-5.1 [facility] Work Phone: Sodium [Moles/Vol] 138 mmol/L 136-145 [facility] Work Phone: WBC (Bld) [#/Vol] 21.6 10*3/uL 4.4-11.0 [facility]: Basophils/100 WBC (Bld) 0.6 % 0-1 [facility] Work Phone: Bilirubin [Mass/Vol] 0.40 mg/dL 0.20-1.00 [facility] Work Phone: Comment on above: For patients on eltr ombopag therapy, use of Dimension Polo TBIL is not recommended. Chloride [Moles/Vol] 101 mmol/L 98-107 [facility] Work Phone: Eosinophils/100 WBC (Bld) 0.9 % 0-5 [facility] Work Phone: [phone] Glucose [Mass/Vol] 96 mg/dL 74-106 [facility] Work Phone: [phone] Neutrophils (Bld) [#/Vol] 20.4 10*3/uL 2.0-7.7 [facility] Work Phone: [phone] Neutrophils/100 WBC (Bld) 80.5 % 47-70 [facility] Work Phone: [phone] Potassium [Moles/Vol] 3.4 mmol/L 3.5-5.1 [facility] Work Phone: Protein [Mass/Vol] 7.4 g/dL 6.4-8.2 [facility] Work Phone: Sodium [Moles/Vol] 137 mmol/L 136-145 [facility] Work Phone: WBC (Bld) [#/Vol] 25.3 10*3/uL 4.4-11.0 [facility] Work Phone: [phone] Bilirubin Test strip Ql (U)o n 02-03-2022 Bilirubin Ql (U) Negative Negative [facility] Work Phone: [phone] Blood erythrocytes count (nu mber/volume)on 02-03-2022 RBC (Bld) [#/Vol] 4.56 10*6/uL 4.2-5.4 [facility] Work Phone: [phone] RBC (Bld) [#/Vol] 4.62 10*6/uL 4.2-5.4 [facility] Work Phone: [phone] Blood hemoglobin measurement (mass/volume)on 02-03-2022 Hemoglobin (Bld) [Mass/Vol] 13.0 g/dL 12.0-15.0 [facility] Work Phone: [phone] Hemoglobin (Bld) [Mass/Vol] 13.1 g/dL 12.0-15.0 [facility] Work Phone: [phone] Blood lymphocytes/100 leukoc yteson 02-03-2022 Lymphocytes/100 WBC (Bld) 9.6 % 19-41 [facility] Work Phone: [phone] Lymphocytes/100 WBC (Bld) 10.7 % 19-41 [facility] Work Phone: [phone] Blood monocytes/100 leukocyt eson 02-03-2022 Monocytes/100 WBC (Bld) 6.7 % 0-10 [facility] Work Phone: [phone] Monocytes/100 WBC (Bld) 6.1 % 0-10 [facility] Work Phone: [phone] Blood platelet mean volumeon 02-03-2022 Platelet mean volume (Bld) [Entitic vol] 9.9 fL 6.2-12.0 [facility] Work Phone: [phone] Platelet mean volume (Bld) [Entitic vol] 10.6 fL 6.2-12.0 [facility] Work Phone: [phone] Determination of erythrocyte mean corpuscular volume (MCV)on 04-27-2022 MCV (RBC) [Entitic vol] 87.3 fL 81-99 [facility] Work Phone: MCV (RBC) [Entitic vol] 90.0 fL 81-99 [facility] Work Phone: Erythrocyte sedimentation ra sy 02-03-2022 ESR (Bld) [Velocity] 17 mm/h 0-30 [facility] Work [facility]: Hematocrit Auto (Bld) [Volum e fraction]on 02-03-2022 Hematocrit (Bld) [Volume fraction] 39.8 % 37-47 [facility] Work Phone: [phone] Hematocrit (Bld) [Volume fraction] 41.6 % 37-47 [facility] Work Phone: Iron measurement (mass/mass) on 02-03-2022 Iron (Unsp spec) [Mass/Mass] 18 ug/dL 50-170 [facility] Work Phone: [phone] Ketones Test strip Ql (U)on 02-03-2022 Ketones Ql (U) 50 mg/dl Negative [facility] Work Phone: Laboratory - Chemistry and C hemistry - challengeon 02-03-2022 CO2 [Moles/Vol] 27.0 mmol/L 21.0-32.0 [facility] Work Phone: Urea nitrogen/Creatinine [Mass ratio] 10.8 mg/mg 10-20 [facility] Work Phone: ALP [Catalytic activity/Vol] 130 U/L 45-117 [facility] Work Phone: ALT [Catalytic activity/Vol] 11 U/L 13-56 [facility] Work Phone: CO2 [Moles/Vol] 29.0 mmol/L 21.0-32.0 [facility] Work Phone: Globulin (S) [Mass/Vol] 4.5 g/dL 2.2-4.2 [facility] Work Phone: Lipase [Catalytic activity/Vol] 97 U/L 73-393 [facility] Work Phone: [phone] Urea nitrogen/Creatinine [Mass ratio] 11.0 mg/mg 10-20 [facility] Work Phone: [phone] Laboratory - Hematology and Cell countson 02-03-2022 Erythrocyte distribution width (RBC) [Entitic vol] 46.5 fL 35.1-43.9 [facility] Work Phone: [phone] Erythrocyte distribution width (RBC) [Ratio] 14.4 % 11.6-14.6 [facility] Work Phone: [phone] Immature granulocytes/100 WBC (Bld) 0.800 % 0.0-0.9 [facility] Work Phone: [phone] Comment on above: IG% - Immature Granu locytes (promyelocytes, myelocytes and metamyelocytes) > 1% indicates that a LEFT SHIFT is Present. MCH (RBC) [Entitic mass] 28.5 pg 27.0-32.0 [facility] Work Phone: [phone] Nucleated RBC/100 WBC (Bld) [Ratio] 0 % 0-5 [facility] Work Phone: [phone] Erythrocyte distribution width (RBC) [Entitic vol] 48.4 fL 35.1-43.9 [facility] Work Phone: [phone] Erythrocyte distribution width (RBC) [Ratio] 14.6 % 11.6-14.6 [facility] Work Phone: [phone] Immature granulocytes/100 WBC (Bld) 1.200 % 0.0-0.9 [facility] Work Phone: [phone] Comment on above: IG% - Immature Granu locytes (promyelocytes, myelocytes and metamyelocytes) > 1% indicates that a LEFT SHIFT is Present. MCH (RBC) [Entitic mass] 28.4 pg 27.0-32.0 [facility] Work Phone: Nucleated RBC/100 WBC (Bld) [Ratio] 0 % 0-5 [facility] Work Phone: [phone] MCHC Auto (RBC) [Mass/Vol]on 02-03-2022 MCHC (RBC) [Mass/Vol] 32.7 g/dL - [facility] Work Phone: [phone] MCHC (RBC) [Mass/Vol] 31.5 g/dL -36 [facility] Work Phone: [phone] Mucus LM Ql (Urine sed)on Mucus Ql (Urine sed) 0 SEEN /hpf [facility] Work Phone: Nitrite Test strip Ql (U)on 02-03-2022 Nitrite Ql (U) Negative Negative [facility] Work Phone: No Panel Informationon 02-03 Estimated Creatinine Clearance Calc 38.56 ml/min [facility] Work Phone: [phone] Estimated GFR (MDRD) Amer 97 mL/min >60 [facility] Work Phone: [phone] Estimated GFR (MDRD) Non-Af Amer 80 mL/min >60 [facility] Work Phone: [phone] Estimated GFR (MDRD) Amer 86 mL/min >60 [facility] Work Phone: [phone] Comment on above: GFR Calc Estimated GFR (MDRD) Non-Af Amer 71 mL/min >60 [facility] Work Phone: Comment on above: Non- GFR Calc Platelets bldon 02-03-2022 Platelets (Bld) [#/Vol] 347 10*3/uL 150-450 [facility] Work Phone: [phone] Platelets (Bld) [#/Vol] 391 10*3/uL 150-450 [facility] Work Phone: Protein Test strip Ql (U)on 02-03-2022 Protein Ql (U) 15 mg/dl Negative [facility] Work Phone: Review by pathologiston 04- Pathologist review Clayton (Unsp spec) [Interp] May foll [facility] Work Phone: [phone] Pathologist review Clayton (Unsp spec) [Interp] Reviewed [facility] Work Phone: Comment on above: Previous reported re sult: Kerline spivey Edited by: RGOMANI on 02/10/22:1243Neutrophilic leukocytosis.Clinical correlation necessary.Andrzej Denise M.D. 02/10/22 AMENDED REPORT 02/10/22 1243 PATH REV previously reported as: February foll Serum or plasma C reactive p rotein measurement (mass/volume)on 02-03-2022 CRP [Mass/Vol] 159.00 mg/L 0.0-3.0 [facility] Work Phone: Comment on above: C-Reactive Protein ( CRP) provides useful information for thediagnosis, therapy and monitoring of inflammatory processesand associated diseases. For the evaluation of Relative Riskfor Cardiovascular Disease, a High Sensitivity CRP (HSCRP)should be ordered. Serum or plasma albumin latesha urement (mass/volume)on 02-03-2022 Albumin [Mass/Vol] 2.9 g/dL 3.2-5.0 [facility] Work Phone: [phone] Serum or plasma albumin/glob ulin mass ratioon 02-03-2022 Albumin/Globulin [Mass ratio] 0.6 {ratio} 0.9-2.4 [facility] Work Phone: Serum or plasma calcium latesha urement (mass/volume)on 02-03-2022 Calcium [Mass/Vol] 8.4 mg/dL 8.5-10.1 [facility] Work Phone: [phone] Calcium [Mass/Vol] 8.8 mg/dL 8.5-10.1 [facility] Work Phone: [phone] Serum or plasma creatinine m easurement (mass/volume)on 02-03-2022 Creatinine [Mass/Vol] 0.74 mg/dL 0.55-1.02 [facility] Work Phone: Comment on above: The validity of the calculated GFR & GFRAA in patients over 70 years has not been determined. Clinical correlation is essential. Creatinine [Mass/Vol] 0.82 mg/dL 0.55-1.02 [facility] Work Phone: Comment on above: The validity of the calculated GFR & GFRAA in patients over 70 years has not been determined. Clinical correlation is essential. Serum or plasma urea nitroge n measurement (mass/volume)on 02-03-2022 Urea nitrogen [Mass/Vol] 8 mg/dL 04-26 [facility] Work Phone: [phone] Urea nitrogen [Mass/Vol] 9 mg/dL 04-26 [facility] Work Phone: [phone] Squamous epithelial cells de tection in urine sediment by light microscopyon 02-03-2022 Epithelial cells.squamous LM Ql (Urine sed) 0 SEEN /hpf [facility] Work Phone: [phone] Thin prep Papanicolaou smear with manual screeningon 02-03-2022 Thin prep Papanicolaou smear with manual screening 8 5-15 [facility] Work Phone: [phone] Thin prep Papanicolaou smear with manual screening 11 U/L 15-37 [facility] Work Phone: [phone] Thin prep Papanicolaou smear with manual screening 7 5-15 [facility] Work Phone: Urine blood detectionon 01-09 RBC Ql (U) 150 /ul Negative [facility] Work Phone: [phone] RBC Ql (U) 0-5 SEEN /hpf [facility] Work Phone: [phone] Urine clarityon 02-03-2022 Clarity (U) Clear Clear [facility] Work Phone: Urine color determinationon 02-03-2022 Color (U) Yellow Yellow [facility] Work Phone: [phone] Urine glucose detectionon Glucose Ql (U) Normal mg/dl Normal [facility] Work Phone: [phone] Urine leukocyte esterase det ection by dipstickon 02-03-2022 Leukocyte esterase Test strip Ql (U) 500 /ul Negative [facility] Work Phone: [phone] Urine pHon 02-03-2022 pH (U) 6.5 [pH] [facility] Work Phone: [phone] Urine sediment bacteria coun t by microscopy (number/high power field)on 02-03-2022 Bacteria LM.HPF (Urine sed) [#/Area] 0 /[HPF] None Seen [facility] Work Phone: Urine specific gravity measu rementon 02-03-2022 Specific gravity (U) [Rel density] 1.010 [facility] Work Phone: Urobilinogen Auto test strip Ql (U)on 02-03-2022 Urobilinogen Ql (U) Normal mg/dl Normal [facility] Work Phone: Basophil percentageon 2021 Amylase [Catalytic activity/Vol] 83 U/L 25-115 [facility] Work Phone: Bilirubin [Mass/Vol] 0.20 mg/dL 0.20-1.00 [facility] Work Phone: Comment on above: For patients on eltr ombopag therapy, use of Dimension Polo TBIL is not recommended. Chloride [Moles/Vol] 112 mmol/L 98-107 [facility] Work Phone: Glucose [Mass/Vol] 157 mg/dL 74-106 [facility] Work Phone: Comment on above: Fasting Glucose resu lt greater than or equal to 126 mg/dL suggests DIABETES MELLITUS per A.D.A. criteria. Potassium [Moles/Vol] 3.5 mmol/L 3.5-5.1 [facility] Work Phone: Protein [Mass/Vol] 5.2 g/dL 6.4-8.2 [facility] Work Phone: [phone] Sodium [Moles/Vol] 142 mmol/L 136-145 [facility] Work Phone: Erythrocyte sedimentation ra sy 11-29-2021 ESR (Bld) [Velocity] 10 mm/h 0-30 [facility] Work Phone: Laboratory - Chemistry and C hemistry - challengeon 11-29-2021 ALP [Catalytic activity/Vol] 62 U/L 45-117 [facility] Work Phone: [phone] ALT [Catalytic activity/Vol] 13 U/L 13-56 [facility] Work Phone: [phone] CO2 [Moles/Vol] 24.0 mmol/L 21.0-32.0 [facility] Work Phone: [phone] Globulin (S) [Mass/Vol] 3.2 g/dL 2.2-4.2 [facility] Work Phone: [phone] Lipase [Catalytic activity/Vol] 118 U/L 73-393 [facility] Work Phone: [phone] Urea nitrogen/Creatinine [Mass ratio] 14.3 mg/mg 10-20 [facility] Work Phone: [phone] Panel Informationon 11-29 Estimated Creatinine Clearance Calc 46.13 ml/min [facility] Work Phone: [phone] Estimated GFR (MDRD) Amer 84 mL/min >60 [facility] Work Phone: [phone] Comment on above: GFR Calc Estimated GFR (MDRD) Non-Af Amer 69 mL/min >60 [facility] Work Phone: [phone] Comment on above: Non- GFR Calc Serum or plasma C reactive p rotein measurement (mass/volume)on 11-29-2021 CRP [Mass/Vol] 7.01 mg/L 0.0-3.0 [facility] Work Phone: [phone] Comment on above: C-Reactive Protein ( CRP) provides useful information for thediagnosis, therapy and monitoring of inflammatory processesand associated diseases. For the evaluation of Relative Riskfor Cardiovascular Disease, a High Sensitivity CRP (HSCRP)should be ordered. Serum or plasma albumin latesha urement (mass/volume)on 11-29-2021 Albumin [Mass/Vol] 2.0 g/dL 3.2-5.0 [facility] Work Phone: [phone] Serum or plasma albumin/glob ulin mass ratioon 11-29-2021 Albumin/Globulin [Mass ratio] 0.6 {ratio} 0.9-2.4 [facility] Work Phone: Serum or plasma calcium latesha urement (mass/volume)on 11-29-2021 Calcium [Mass/Vol] 7.5 mg/dL 8.5-10.1 [facility] Work Phone: [phone] Serum or plasma creatinine m easurement (mass/volume)on 11-29-2021 Creatinine [Mass/Vol] 0.84 mg/dL 0.55-1.02 [facility] Work Phone: [phone] Comment on above: The validity of the calculated GFR & GFRAA in patients over 70 years has not been determined. Clinical correlation is essential. Serum or plasma urea nitroge n measurement (mass/volume)on 11-29-2021 Urea nitrogen [Mass/Vol] 12 mg/dL 7-18 [facility] Work Phone: [phone] Thin prep Papanicolaou smear with manual screeningon 11-29-2021 Thin prep Papanicolaou smear with manual screening 10 U/L 15-37 [facility] Work Phone: [phone] Thin prep Papanicolaou smear with manual screening 6 5-15 [facility] Work Phone: [phone] Absolute lymphocyte counton 11-28-2021 Lymphocytes Auto (Unsp spec) [#/Vol] 0.78 10*3/uL 0.83-4.51 [facility] Work Phone: [phone] Basophil percentageon 2021 Basophils/100 WBC (Bld) 0.2 % 0-1 [facility] Work Phone: [phone] Eosinophils/100 WBC (Bld) 0.0 % 0-5 [facility] Work Phone: [phone] Neutrophils (Bld) [#/Vol] 6.9 10*3/uL 2.0-7.7 [facility] Work Phone: [phone] Neutrophils/100 WBC (Bld) 85.8 % 47-70 [facility] Work Phone: [phone] WBC (Bld) [#/Vol] 8.1 10*3/uL 4.4-11.0 [facility] Work Phone: [phone] Blood erythrocytes count (nu mber/volume)on 11-28-2021 RBC (Bld) [#/Vol] 3.71 10*6/uL 4.2-5.4 [facility] Work Phone: Blood hemoglobin measurement (mass/volume)on 11-28-2021 Hemoglobin (Bld) [Mass/Vol] 10.6 g/dL 12.0-15.0 [facility] Work Phone: Blood lymphocytes/100 leukoc yteson 11-28-2021 Lymphocytes/100 WBC (Bld) 9.7 % 19-41 [facility] Work Phone: Blood monocytes/100 leukocyt eson 11-28-2021 Monocytes/100 WBC (Bld) 2.8 % 0-10 [facility] Work Phone: Blood platelet mean volumeon 11-28-2021 Platelet mean volume (Bld) [Entitic vol] 9.7 fL 6.2-12.0 [facility] Work Phone: Determination of erythrocyte mean corpuscular volume (MCV)on 11-28-2021 MCV (RBC) [Entitic vol] 88.1 fL 81-99 [facility] Work Phone: Hematocrit Auto (Bld) [Volum e fraction]on 11-28-2021 Hematocrit (Bld) [Volume fraction] 32.7 % 37-47 [facility] Work Phone: Laboratory - Chemistry and C hemistry - challengeon 11-28-2021 Magnesium [Mass/Vol] 2.2 mg/dL 1.6-2.6 [facility] Work Phone: Laboratory - Hematology and Cell countson 11-28-2021 Erythrocyte distribution width (RBC) [Entitic vol] 44.3 fL 35.1-43.9 [facility] Work Phone: Erythrocyte distribution width (RBC) [Ratio] 13.9 % 11.6-14.6 [facility] Work Phone: Immature granulocytes/100 WBC (Bld) 1.500 % 0.0-0.9 [facility] Work Phone: Comment on above: IG% - Immature Granu locytes (promyelocytes, myelocytes and metamyelocytes) > 1% indicates that a LEFT SHIFT is Present. MCH (RBC) [Entitic mass] 28.6 pg 27.0-32.0 [facility] Work Phone: Nucleated RBC/100 WBC (Bld) [Ratio] 0 % 0-5 [facility] Work Phone: MCHC Auto (RBC) [Mass/Vol]on 11-28-2021 MCHC (RBC) [Mass/Vol] 32.4 g/dL 32-36 [facility] Work Phone: Platelets bldon 11-28-2021 Platelets (Bld) [#/Vol] 320 10*3/uL 150-450 [facility] Work Phone: No Panel Informationon 11-27 Enteric Bacteriology [facility] Work Phone: Basophil percentageon 2021 Lactate [Moles/Vol] 1.3 mmol/L 0.4-2.0 [facility] Work Phone: No Panel Informationon 11-26 SARS-CoV-2 Antigen (Rapid) [facility] Work Phone: Serum procalcitonin measurem enton 11-26-2021 Procalcitonin [Mass/Vol] 0.14 ng/mL 0.00-0.09 [facility] Work Phone: Comment on above: A procalcitonin (PCT ) level above 2.0 ng/mL on the first day of ICU admission is associated with a high risk for progression to severe sepsis and/or septic shock. A PCT level below 0.5 ng/mL on the first day of ICU admission is associated with a low risk for progression to severe and/or septic shock. Note: Concentrations <0.5 ng/mL do not exclude an infection on account of localized infections (without systemic signs) which can be associated with such low concentrations, or a systemic infection in its initial stages (<6 hours). Furthermore, increased procalcitonin can occur without infection. PCT concentrations between 0.5 and 2.0 ng/mL should be interpreted taking into account the patient's history. It is recommended to retest PCT within 6-24 hours if any concentrations <2 ng/mL are obtained. Thin prep Papanicolaou smear with manual screeningon 11-26-2021 Thin prep Papanicolaou smear with manual screening 169 U/L 84-246 [facility] Work Phone: No Panel Informationon 11-24 Thyroid Stimulating Hormone (TSH) 0.93 uIU/mL 0.358-3.74 [facility] Work Phone: Basophil percentageon 2021 Basophil percentage 0 SEEN /hpf [facility] Work Phone: Bilirubin Test strip Ql (U)o n 11-23-2021 Bilirubin Ql (U) Negative Negative [facility] Work Phone: Ketones Test strip Ql (U)on 11-23-2021 Ketones Ql (U) 150 mg/dl Negative [facility] Work Phone: Comment on above: CRITICAL VALUE *H Laboratory - Microbiology an d Antimicrobial susceptibilityon 11-23-2021 Bacteria identified Cx Nom (Bld) No growth in 5 days. [facility] Work Phone: Mucus LM Ql (Urine sed)on Mucus Ql (Urine sed) 0 SEEN /hpf [facility] Work Phone: Nitrite Test strip Ql (U)on 11-23-2021 Nitrite Ql (U) Negative Negative [facility] Work Phone: No Panel Informationon 11-23 Troponin I High Sensitivity 6 pg/mL 3.0-54.0 [facility] Work Phone: Comment on above: Please Note: New Dotty t Units and Gender Specific Reference Ranges. For more information see Policy Stat Procedure [place] High Sensitivity Troponin (TNIH) and attachments. Protein Test strip Ql (U)on 11-23-2021 Protein Ql (U) Negative Negative [facility] Work Phone: Squamous epithelial cells de tection in urine sediment by light microscopyon 11-23-2021 Epithelial cells.squamous LM Ql (Urine sed) 0 SEEN /hpf [facility] Work Phone: Urine blood detectionon 11-10 RBC Ql (U) 150 /ul Negative [facility] Work Phone: RBC Ql (U) 0-5 SEEN /hpf [facility] Work Phone: Urine clarityon 11-23-2021 Clarity (U) Clear Clear [facility] Work Phone: Urine color determinationon 11-23-2021 Color (U) Yellow Yellow [facility] Work Phone: Urine glucose detectionon Glucose Ql (U) Normal mg/dl Normal [facility] Work Phone: Urine leukocyte esterase det ection by dipstickon 11-23-2021 Leukocyte esterase Test strip Ql (U) Negative Negative [facility] Work Phone: Urine pHon 11-23-2021 pH (U) 6.0 [pH] [facility] Work Phone: Urine sediment bacteria coun t by microscopy (number/high power field)on 11-23-2021 Bacteria LM.HPF (Urine sed) [#/Area] 0 /[HPF] None Seen [facility] Work Phone: Urine specific gravity measu rementon 11-23-2021 Specific gravity (U) [Rel density] 1.020 [facility] Work Phone: Urobilinogen Auto test strip Ql (U)on 11-23-2021 Urobilinogen Ql (U) Normal mg/dl Normal [facility] Work Phone: Provider Note - ED v2on 11-10 Provider Note - ED v2 Provider Note - ED v2: Chart Review: ED NOTES ED NOTES: Patient arrived with hives covering her entire upper chest and a small patch on her left wrist. Patient says hives started yesterday. Patient had a hard time sleeping because they were extremely itchy. Asked patient extensive questions about history and possible interactions with new products. Patient denies anything new or changed in her life in the last several months. Patient states she's never had hives like before. Patient not having any difficulty breathing denies shortness of breath pleuritic pain change in bowel or bottom habits. Patient denies fevers. Patient denies any recent trips to the [facility] or any recent bug bites. HISTORY OF PRESENTING ILLNESS SHIRA is a 79 year old Female and was seen by me at 28-Nov-2019 10:26. The historian is the patient. Triage Information: Most recent Vital Sign Value Date PAST MEDICAL HISTORY ATTESTATION: I have reviewed and confirmed nurse's/medic's notes for patient's medications, allergies, medical history, and surgical history PSYCHOSOCIAL SCREENING: NO: concerns for safety at home, feelings of depression, feels like hurting others and feels like hurting self ALLERGIES/INTOLERANCE S: Allergy Allergen: sulfa drugs Type: Drug Category Reaction: Rash Allergen: Vicodin Tuss Type: Drug Reaction: Unknown HEALTH HISTORY: No documented data. OUTPATIENT MEDICATIONS: Home Medications Review Status for Reconciliation: Complete Med Status: Patient Currently Takes Medications Drug Name: Lialda 1.2 g oral delayed release tablet Instructions: 2 tab(s) orally once a day Drug Name: hydrOXYzine hydrochloride 25 mg oral tablet Instructions: 1 tab(s) orally every 6 hours Drug Name: triamcinolone 0.1% topical ointment Instructions: Apply topically to affected area 4 times a day SIGNIFICANT EVENTS: No documented data. REVIEW OF SYSTEMS INTEGUMENTARY: POSITIVE for: hives; All other systems reviewed and are negative PHYSICAL EXAM CONSTITUTIONAL: Well appearing, well nourished, awake, alert, oriented to person, place, time/situation and in no apparent distress. HENMT: Airway patent, ears with clear tympanic membranes bilaterally. Nasal mucosa clear. Mouth with normal mucosa. Throat has no vesicles, no oropharyngeal exudates and uvula is midline. Face with no lymph node enlargement. EYES: Clear bilaterally, pupils equal, round and reactive to light. CARDIOVASCULAR: Normal rate, regular rhythm. RESPIRATORY: Breath sounds clear and equal bilaterally and unlabored. Rales rhonchi or crackles. GASTROINTESTINAL: Abdomen soft, non-distended, no rebound, no guarding. GENITOURINARY: No discharge, no lesions. MUSCULOSKELETAL: Spine appears normal, range of motion is not limited, no muscle or joint tenderness. NEUROLOGICAL: Alert and oriented, no focal deficits, no motor or sensory deficits. SKIN: Skin normal color for race, warm, dry and intact. Patient has papular rash across chest and on left wrist. PSYCHIATRIC: Alert and oriented to person, place, time/situation. normal mood and affect. No apparent risk to self or others. HEME/LYMPH: No cervical adenopathy. RESULTS/VITAL SIGNS VITAL SIGNS: T PRBP SpO2O2(LPM) %FiO2 Method 28-Nov-2019 10:23:[id number]/ [id number] CLINICAL IMPRESSION Diagnosis/Annotation: ED Dx Name:Hives Code:L50.9 Dispostion: discharged Type: home ATTESTATION Comments/Additional Findings: Patient diagnosed with hives. Patient prescribed steroid cream and hydroxyzine for itching. Patient instructed to follow-up with primary care physician in 2-3 days or if symptoms worsen much sooner. Patient also instructed to find an [employer]er[employer] asked if the symptoms come back. Patient did understand this and said she would follow-up. Patient left in stable condition alert and oriented, denied shortness of breath. CRITICAL CARE TIME Is this a critically ill patient: no Electronic Signatures: Astrid Chavez (MANAGER C[employer] STORE REPRESENTATIVE) (Signed 28-Nov-2019 10:54) Authored: Provider Note - ED v2 Last Updated: 28-Nov-2019 10:54 by Astrid Chavez (MANAGER [employer] STORE REPRESENTATIVE) [facility] CT Head or Brain w/o Contras ton 03-15-2019 CT Head or Brain w/o Contrast Exam Date/Time: 03/14/2019 19:40 EDT Reason for Exam: Other (please specify) Report IMPRESSION: NEGATIVE CT SCAN OF THE BRAIN WITHOUT CONTRAST. CLINICAL HISTORY: DIZZINESS COMMENT: CT BRAIN WITHOUT IV CONTRAST COMPARISONS: 01/17/2017 FINDINGS: The calvarium appears intact. The appearance of the brain parenchyma, ventricular system and subarachnoid spaces is within normal limits. There is no intracranial mass, hemorrhage, "mass effect" or midline shift. There is no acute intra-axial or extra-axial findings in the brain. The remainder of the CT scan of the brain appears unremarkable. All CT scans at this facility use dose modulation, iterative reconstruction, and/or weight based dosing when appropriate to reduce radiation dose to as low as reasonably achievable. FINAL REPORT Dictated: 03/15/2019 8:04 am Isiah Green MD Signed (Electronic Signature): 03/15/2019 8:04 am Signed by: Isiah Green MD Transcribed by: KIRILL Technologist: KAELYN Aceves Read 03/14/2019 07:51 pm Roxanne/[facility], Jamison MCCONNELL, Tom Negative Normal [facility] Coding Summary.on 03-15-2019 Coding Summary. CODING DATE: 03/15/2019 FINAL [facility] STATUS: Home (Routine DC) PAYOR: Medicare APC DESCRIPTION 5522 Level 2 Imaging without Contrast 5025 Level 5 Type A ED Visits ADMIT DX: REASON FOR VISIT DX: R42 Dizziness and giddiness FINAL DX: PRINCIPAL: H81.11 Benign paroxysmal vertigo, right ear SECONDARY: PYMT PROC APC STAT DESCRIPTION DOCTOR NAME DATE NOTE: The code number assigned matches the documented diagnosis and / or procedure in the patient's chart. However, the narrative phrase printed from the coding software may appear abbreviated, or result in slightly different terminology. Revised Coded By: Iris Trevizo Revised Date Saved: 03/15/2019 10:56 am Normal [facility] Auto Diffon 03-14-2019 Basophils/100 WBC (Bld) 0.8 % Normal 0.0-2.0 [facility] Comment on above: Order Comment: Order added by Discern Expert. Performed By: #### 1 [id number], 9038350, 52635495, 2288165, 3600230, 7256804, 9670611, 0760582, 2400110 #### [facility] [address] [place] [address] Basophils/Leukocytes Auto (Bld) [Pure # fraction] 0.1 E9/L Normal 0.0-0.2 [facility] Comment on above: Order Comment: Order added by Discern Expert. Performed By: #### 1 [id number], 5930452, 17317326, 3900430, 9364236, 8027977, 1977308, 3750046, 4968362 #### [facility] [address] [place] [address] Eosinophils/100 WBC (Bld) 0.5 % Normal 0.0-8.0 [facility] Comment on above: Order Comment: Order added by Discern Expert. Performed By: #### 1 [id number], 8374752, 71316993, 9704496, 7427009, 7134801, 7776284, 7695932, 7859645 #### [facility] [address] [place] [address] Eosinophils/Leukocytes Auto (Bld) [Pure # fraction] 0.1 E9/L Normal 0.0-0.5 [facility] Comment on above: Order Comment: Order added by Sunday Expert. Performed By: #### 1 [id number], 6546358, 58358680, 8149211, 5003504, 5166994, 8666470, 8789535, 0505063 #### [facility] [address] [place] [address] Lymphocytes/100 WBC (Bld) 12.4 % Low 14.0-50.0 [facility] Comment on above: Order Comment: Order added by Sunday Expert. Performed By: #### 1 [id number], 2620352, 92554987, 4892272, 4383276, 6476115, 9013860, 0908079, 5487073 #### [facility] [address] [place] [address] Lymphocytes/Leukocytes Auto (Bld) [Pure # fraction] 1.3 E9/L Normal 1.0-4.0 [facility] Comment on above: Order Comment: Order added by Sunday Expert. Performed By: #### 1 7475638, 1156293, 77698844, 8999634, 6093404, 3046196, 9427896, 5622034, 5906276 #### [facility] [address] [place] [address] Monocytes/100 WBC (Bld) 6.6 % Normal 4.0-14.0 [facility] Comment on above: Order Comment: Order added by Sunday Expert. Performed By: #### 1 9899663, 8569894, 92728613, 0062939, 8159398, 9540664, 9445882, 0112105, 1568740 #### [facility] [address] [place] [address] Monocytes/Leukocytes Auto (Bld) [Pure # fraction] 0.7 E9/L Normal 0.2-1.0 [facility] Comment on above: Order Comment: Order added by Discern Expert. Performed By: #### 1 4446595, 3684389, 30089009, 4193717, 1522918, 4888460, 0087145, 9326679, 8016356 #### [facility] [address] [place] [address] Neutrophils/100 WBC (Bld) 79.7 % High 36.0-75.0 [facility] Comment on above: Order Comment: Order added by Discern Expert. Performed By: #### 1 6634659, 4737038, 65192880, 2195577, 4807303, 5151098, 3630391, 9202813, 5514923 #### [facility] [address] [place] [address] Neutrophils/Leukocytes Auto (Bld) [Pure # fraction] 8.4 E9/L High 2.0-7.5 [facility] Comment on above: Order Comment: Order added by Discern Expert. Performed By: #### 1 5399699, 5310148, 46727075, 2010807, 2603821, 3228107, 9273461, 5808647, 0501388 #### [facility] [address] [place] [address] BMPon 03-14-2019 Creatinine [Mass/Vol] 0.9 mg/dL Normal 0.5-1.3 [facility] Comment on above: Performed By: #### 1 8069017, 1855382, 91009281, 1932282, 8981303, 8752940, 9935003, 9091952, 6235415 #### [facility] [address] [place] [address] Urea nitrogen [Mass/Vol] 9 mg/dL Normal 5-21 [facility] Comment on above: Performed By: #### 1 1307203, 8109547, 52415951, 7490140, 9605198, 8971614, 6996673, 4362977, 7529670 #### [facility] [address] [place] [address] Urea nitrogen/Creatinine [Mass ratio] 10 No Units Normal 10-20 [facility] Comment on above: Performed By: #### 1 9034770, 4295168, 11256871, 0215681, 1277195, 2354436, 4038880, 7975320, 2724407 #### [facility] [address] [place] [address] Anion gap [Moles/Vol] 12 mmol/L Normal 6-16 [facility] Comment on above: Performed By: #### 1 9573940, 5488263, 72370160, 2420474, 5611327, 9282176, 1108673, 3530036, 4444333 #### [facility] [address] [place] [address] Calcium [Mass/Vol] 8.8 mg/dL Low 8.9-11.1 [facility] Comment on above: Performed By: #### 1 1785044, 8764259, 14748022, 5416725, 9061188, 5897685, 6383743, 9977458, 1421648 #### [facility] [address] [place] [address] Chloride [Moles/Vol] 104 mmol/L Normal 101-111 [facility] Comment on above: Performed By: #### 1 7484022, 9133715, 92737644, 9426866, 2874817, 6781881, 3306820, 6552443, 3192721 #### [facility] [address] [place] [address] CO2 [Moles/Vol] 25 mmol/L Normal 21-31 [facility] Comment on above: Performed By: #### 1 7537155, 5675255, 24335709, 3754299, 3645976, 6345676, 4682336, 9284920, 9675797 #### [facility] [address] [place] [address] Glucose [Mass/Vol] 99 mg/dL Normal 55-199 [facility] Comment on above: Result Comment: If t his glucose result represents a fasting glucose, interpretation should refer to the following reference range: 55-99 mg/dL Performed By: #### 1 7768620, 4505341, 57642276, 8998378, 6459603, 9121693, 2314010, 1842950, 1801910 #### [facility] [address] [place] [address] Potassium [Moles/Vol] 3.9 mmol/L Normal 3.5-5.3 [facility] Comment on above: Performed By: #### 1 1600568, 3360817, 52414004, 6909381, 9436921, 3637976, 1149042, 2799105, 4852395 #### [facility] [address] [place] [address] Sodium [Moles/Vol] 137 mmol/L Normal 135-145 [facility] Comment on above: Performed By: #### 1 6905165, 4539914, 97700810, 9035903, 1782616, 7919150, 7724699, 6323123, 0288883 #### [facility] [address] [place] [address] CBC w/ Auto Diffon 9 Erythrocyte distribution width (RBC) [Ratio] 13.7 % Normal 10.9-14.2 [facility] Comment on above: Performed By: #### 1 3813839, 9467116, 51016628, 7834567, 9882790, 3754591, 4846618, 2647879, 9352261 #### [facility] [address] [place] [address] Hematocrit (Bld) [Volume fraction] 42.1 % Normal 34.0-46.0 [facility] Comment on above: Performed By: #### 1 0783316, 2954727, 81000803, 9911037, 0008836, 8223446, 6955883, 6578678, 7132631 #### [facility] [address] [place] [address] Hemoglobin (Bld) [Mass/Vol] 13.9 g/dL Normal 12.0-16.0 [facility] Comment on above: Performed By: #### 1 1452903, 8097159, 16821448, 8582531, 6567541, 8447811, 1842600, 6102135, 9129844 #### [facility] [address] [place] [address] MCH (RBC) [Entitic mass] 29.7 pg Normal 27.0-34.0 [facility] Comment on above: Performed By: #### 1 8363874, 8119805, 61874651, 5296144, 5560232, 9545691, 0049895, 3460079, 6491381 #### [facility] [address] [place] [address] MCHC (RBC) [Mass/Vol] 33.1 g/dL Low 33.3-35.7 [facility] Comment on above: Performed By: #### 1 2868680, 1458027, 42845014, 1634591, 6718808, 7973372, 3677020, 3851321, 3549064 #### [facility] [address] [place] [address] MCV (RBC) [Entitic vol] 89.8 fL Normal 80.0-100.0 [facility] Comment on above: Performed By: #### 1 7647905, 2275211, 45786183, 2635177, 3927431, 3280965, 6783110, 8319615, 3920114 #### [facility] [address] [place] [address] Platelet mean volume (Bld) [Entitic vol] 9.5 fL Normal 6.4-10.8 [facility] Comment on above: Performed By: #### 1 9004439, 4906010, 31695659, 0433606, 6305690, 4928297, 8286777, 6427178, 5133586 #### [facility] [address] [place] [address] Platelets (Bld) [#/Vol] 185.0 E9/L Normal 150.0-500.0 [facility] Comment on above: Performed By: #### 1 4680762, 7224425, 13573703, 4555677, 8548733, 4947191, 2403199, 7799597, 1204726 #### [facility] [address] [place] [address] RBC (Bld) [#/Vol] 4.7 E12/L Normal 4.3-5.9 [facility] Comment on above: Performed By: #### 1 7661797, 2064108, 96679010, 4712849, 6758823, 0856487, 7669509, 5384860, 0239740 #### [facility] [address] [place] [address] WBC corrected for nucl RBC Auto (Bld) [#/Vol] 10.5 E9/L Normal 4.0-11.0 [facility] Comment on above: Performed By: #### 1 1089228, 6945309, 80104704, 3276019, 3125669, 0706080, 6497095, 7740888, 4918978 #### [facility] [address] [place] [address] ED Clinical Summaryon 2018 ED Clinical Summary [address] [address] ED Clinical Summary Person Information Name: SHIRA MERRITT[place] Age: 78 Years : 1940 12:00 AM Sex: Female Language: Latvian PCP: Tayla RENDON CNP Marital Status: Visit Id: Visit Reason: Dizziness; SQ - N/V Speciality: Acuity: 3 Enc Type: Emergency Med Service: Emergency Arrival: 03/14/2019 6:38 PM Discharge: 03/14/2019 9:40 PM LOS: 000 03:02 Checkin: 03/14/2019 6:38 PM Checkout: 03/14/2019 9:40 PM Dispo Type: Home (Routine DC) EVENTS: Event Name Event Status Request Date/Time Start Date/Time Complete Date/Time Arrive Complete 03/14/2019 6:38 PM 03/14/2019 6:38 PM 03/14/2019 6:38 PM Document Home Meds Request 03/14/2019 6:38 PM Triage Complete 03/14/2019 6:38 PM 03/14/2019 6:46 PM 03/14/2019 6:46 PM Bed Assign Complete 03/14/2019 6:39 PM 03/14/2019 6:39 PM 03/14/2019 6:[address] Exam Complete 03/14/2019 6:39 PM 03/14/2019 7:10 PM 03/14/2019 7:10 PM RN Exam Complete 03/14/2019 6:39 PM 03/14/2019 6:54 PM 03/14/2019 6:54 PM EKG Complete 03/14/2019 6:41 PM 03/14/2019 6:43 PM Registration Complete 03/14/2019 7:10 PM 03/14/2019 7:24 PM 03/14/2019 7:24 PM Pending Labs Request 03/14/2019 7:23 PM Lab Request 03/14/2019 7:23 PM Urine Collect Request 03/14/2019 7:23 PM Meds Admin Complete 03/14/2019 7:23 PM 03/14/2019 7:47 PM Reg Complete Request 03/14/2019 7:24 PM Reg Bed Request Complete 03/14/2019 7:24 PM 03/14/2019 7:24 PM 03/14/2019 7:[address] Complete 03/14/2019 7:24 PM 03/14/2019 7:40 PM 03/14/2019 7:40 PM Pending Labs Complete 03/14/2019 7:56 PM 03/14/2019 7:56 PM 03/14/2019 8:09 PM Lab Complete 03/14/2019 7:56 PM 03/14/2019 7:56 PM 03/14/2019 8:09 PM Pending Labs Complete 03/14/2019 8:01 PM 03/14/2019 8:01 PM 03/14/2019 8:01 PM Lab Complete 03/14/2019 8:01 PM 03/14/2019 8:01 PM 03/14/2019 8:01 PM Meds Admin Request 03/14/2019 9:08 PM Discharge Complete 03/14/2019 9:08 PM 03/14/2019 9:43 PM 03/14/2019 9:43 PM Transfer Complete 03/14/2019 9:43 PM 03/14/2019 9:43 PM 03/14/2019 9:43 PM ADDRESS: [place] [id number] PHYS DOC NOTES: MEDICAL INFORMATION: Prescriptions Given: Prescription Display meclizine (Antivert 25 mg Tab) 25 mg = 1 tab(s), Oral, TID, PRN for dizziness, # 30 tab(s), Refills(s) 0, Pharmacy: [facility] [id number] PATIENT EDUCATION INFORMATION: Instructions: Benign Positional Vertigo Follow up: With: Address: When: Tayla RENDON Within 1 to 2 days DIAGNOSIS: 1:Benign paroxysmal vertigo, right ear Normal [facility] ED Note-Physicianon 03-14-20 ED Note-Physician Basic Information Time Seen: Harinder Pabon MD 03/14/2019 19:10 Chief Complaint reports sudden onset of dizziness approx 1815 while sitting on porch reading book. c/o nausea. 4mg zofran in route. states "i feel like i'm spinning". denies pain History of Present Illness 78-year-old female presents with a complaint of sudden onset of dizziness. Patient states that she was sitting on a porch swing reading when she had a sudden onset of a spinning sensation. She became quite nauseated. She was forced to close her eyes. She states that she did not lose consciousness but her friend was at her side. She states that even though her eyes were closed and she felt dizzy she knows that she was able to communicate with her friend. There was a small emesis at the scene. There was no pain. She had no headache pain chest pain or increased abdominal pain. There was nausea. There is no change in eyesight hearing or speech. There is no focal weakness numbness or tingling in extremities. Patient denies hypertension, diabetes, heart disease, or smoking history. No history of any previous TIA or stroke. She apparently was recently battling a: Infection that has left her with some generalized weakness. She was seen by her family doctor within the past 2 weeks and given a clean bill of health. Review of Systems Additional ROS info: Except as noted in the above Review of Systems and in the History of Present Illness all other systems have been reviewed and are negative or noncontributory.Unles s otherwise stated in this report the patient's positive and negative responses for review of systems for constitutional, eyes, ENT, cardiovascular, respiratory, gastrointestinal, neurological, , musculoskeletal, and integument systems and related systems to the presenting problem are either stated in the history of present illness or were not pertinent or were negative for the symptoms and/or complaints related to the presenting medical problem. In S Physical Exam Vitals & Measurements T: 36.6 ?C (Oral) HR: 73(Monitored) RR: 16 BP: 125/57 SpO2: 94% WT: 57.4 kg This is a mildly overweight 78-year-old female she is alert and oriented she talks with me with her eyes closed. Conjunctiva is normal. Pupils are 4 mm equal and reactive. Extraocular muscles show very slight nystagmus. There is no facial asymmetry. Her oral mucosa is moist. The heart is regular there is thick splitting of the first heart sound. Lungs are clear to auscultation. The abdomen is soft there is some tenderness left lower quadrant she states that is her normal baseline. Patient is able to move all extremities against gravity on command. She moves her lower extremities slowly as if with great effort but once the leg is placed in a flexed position she has good strength against isometric resistance. Hallpike maneuver was performed with the head turned to the right it did precipitated intense since of vertigo. Assessment/Plan 1. Benign paroxysmal vertigo, right ear (H81.11: Vertigo, peripheral) Orders: meclizine, 25 mg = 2 tab(s), Tab, Oral, Once, Stop date 03/14/19 19:22:00 EDT, STAT, Start date 03/14/19 19:22:00 EDT meclizine, 25 mg = 2 tab(s), Tab, Oral, TID PRN Dizziness, STAT, Start date 03/14/19 21:07:00 EDT meclizine, 25 mg = 1 tab(s), Oral, TID, PRN for dizziness, # 30 tab(s), Refills(s) 0, Pharmacy: [facility] [id number] Automated Diff Basic Metabolic Panel CBC w/ Auto Diff CT Head or Brain w/o Contrast eGFR UA With Cult Reflex Medications Administered Given Antivert 12.5 mg Tab, 25 mg, Oral Disposition Plan Patient Discharge Condition Improved Discharge Disposition Home Discharge Prescription List Prescriptions Antivert 25 mg Tab, 25 mg= 1 tab(s), Oral, TID, PRN Follow-up With When Contact Information Tayla RENDON Within 1 to 2 days Additional Instructions: Patient Education Benign Positional Vertigo Problem List/Past Medical History Ongoing Arthritis Bilateral leg weakness Chronic headache Chronic ulcerative colitis Hypokalemia Lumbar disc disease with radiculopathy Ulcerative colitis Historical Acute arthritis Chest pain on exertion Clostridium difficile diarrhea Dehydration Difficulty walking Fracture of unspecified parts of lumbosacral spine and pelvis, sequela 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 Left hip pain Osteoarthritis Procedure/Surgical History Flexible sigmoidoscopy (01/19/2019), Appendectomy, Cholecystectomy, colon resection, colon resection 11/25/2012, Colonoscopy. Medications Inpatient Antivert 12.5 mg Tab, 25 mg= 2 tab(s), Oral, TID, PRN Home Acidophilus Probiotic Blend, 1 cap(s), Oral, Daily Antivert 25 mg Tab, 25 mg= 1 tab(s), Oral, TID, PRN Lialda 1.[address] tab, See Instructions Patanol 0.1% ophthalmic solution, 1 drop(s), Eye-Both, BID Allergies Augmentin (Unknown) Codeine Sulfate (Altered mental status) Darvocet A500 Darvon Tape Valium (Altered mental status) Vicodin (Altered mental status) morphine (Restlessness) sulfamethoxazole tetanus immune globulin (Rash) Social History Alcohol - Denies Alcohol Use, 02/17/2011 Exercise - Occasional exercise, 02/17/2011 Home/Environment Lives with Alone. Living situation: Home/Independent. Alcohol abuse in household: No. Substance abuse in household: No. Smoker in household: No., 01/16/2019 Substance Abuse - Denies Substance Abuse, 02/17/2011 IV drug use: No., 01/16/2019 Tobacco - Denies Tobacco Use, 03/12/2019 Family History Hypertension: Mother. Lab Results WBC: 10.5 E9/L (03/14/19 19:51:00 EDT) RBC: 4.7 E12/L (03/14/19 19:51:00 EDT) Hgb: 13.9 gm/dL (03/14/19 19:51:00 EDT) Hct: 42.1 % (03/14/19 19:51:00 EDT) MCV: 89.8 fL (03/14/19 19:51:00 EDT) MCH: 29.7 pg (03/14/19 19:51:00 EDT) MCHC: 33.1 gm/dL Low (03/14/19 19:51:00 EDT) RDW: 13.7 % (03/14/19 19:51:00 EDT) Platelet: 185 E9/L (03/14/19 19:51:00 EDT) MPV: 9.5 fL (03/14/19 19:51:00 EDT) Neutro Auto: 79.7 % High (03/14/19 19:51:00 EDT) Lymph Auto: 12.4 % Low (03/14/19 19:51:00 EDT) Medina Auto: 6.6 % (03/14/19 19:51:00 EDT) Eos Auto: 0.5 % (03/14/19 19:51:00 EDT) Basophil Auto: 0.8 % (03/14/19 19:51:00 EDT) Neutro Absolute: 8.4 E9/L High (03/14/19 19:51:00 EDT) Lymph Absolute: 1.3 E9/L (03/14/19 19:51:00 EDT) Medina Absolute: 0.7 E9/L (03/14/19 19:51:00 EDT) Eos Absolute: 0.1 E9/L (03/14/19 19:51:00 EDT) Basophil Absolute: 0.1 E9/L (03/14/19 19:51:00 EDT) Glucose Lvl: 99 mg/dL (03/14/19 19:51:00 EDT) BUN: 9 mg/dL (03/14/19 19:51:00 EDT) Creatinine: 0.9 mg/dL (03/14/19 19:51:00 EDT) eGFR: >60 (03/14/19 19:51:00 EDT) eGFR AA: >60 (03/14/19 19:51:00 EDT) BUN/Creat Ratio: 10 (03/14/19 19:51:00 EDT) Sodium Lvl: 137 mmol/L (03/14/19 19:51:00 EDT) Potassium Lvl: 3.9 mmol/L (03/14/19 19:51:00 EDT) Chloride: 104 mmol/L (03/14/19 19:51:00 EDT) CO2: 25 mmol/L (03/14/19 19:51:00 EDT) AGAP: 12 mEq/L (03/14/19 19:51:00 EDT) Calcium Lvl: 8.8 mg/dL Low (03/14/19 19:51:00 EDT) Diagnostic Results CT Head or Brain w/o Contrast 03/14/19 19:51:39 ADD TEXT: Negative Read By: Tom Swift MD 03/14/19 19:51:40 03/14/2019 07:51 pm [facility], Chad Negative EKG Results EC03/14/19: SINUS RHYTHM WITH SHORT MA INTERVAL MINIMAL ST DEPRESSION BORDERLINE ECG Signed By: Harinder Pabon MD 03/14/2019 19:24:06 Normal [facility] Comment on above: Result Comment: Elec tronically Signed By: Harinder Pabon MD\\.br\\Date and Time Signed: 03/14/19 21:09 EDT ED Patient Education Noteon 03-14-2019 ED Patient Education Note Benign Positional Vertigo Vertigo means you feel like you or your surroundings are moving when they are not. Benign positional vertigo is the most common form of vertigo. Benign means that the cause of your condition is not serious. Benign positional vertigo is more common in older adults. CAUSES Benign positional vertigo is the result of an upset in the labyrinth system. This is an area in the middle ear that helps control your balance. This may be caused by a viral infection, head injury, or repetitive motion. However, often no specific cause is found. SYMPTOMS Symptoms of benign positional vertigo occur when you move your head or eyes in different directions. Some of the symptoms may include: ? Loss of balance and falls. ? Vomiting. ? Blurred vision. ? Dizziness. ? Nausea. ? Involuntary eye movements (nystagmus). DIAGNOSIS Benign positional vertigo is usually diagnosed by physical exam. If the specific cause of your benign positional vertigo is unknown, your caregiver may perform imaging tests, such as magnetic resonance imaging (MRI) or computed tomography (CT). TREATMENT Your caregiver may recommend movements or procedures to correct the benign positional vertigo. Medicines such as meclizine, benzodiazepines, and medicines for nausea may be used to treat your symptoms. In rare cases, if your symptoms are caused by certain conditions that affect the inner ear, you may need surgery. HOME CARE INSTRUCTIONS ? Follow your caregiver's instructions. ? Move slowly. Do not make sudden body or head movements. ? Avoid driving. ? Avoid operating heavy machinery. ? Avoid performing any tasks that would be dangerous to you or others during a vertigo episode. ? Drink enough fluids to keep your urine clear or pale yellow. SEEK IMMEDIATE MEDICAL CARE IF: ? You develop problems with walking, weakness, numbness, or using your arms, hands, or legs. ? You have difficulty speaking. ? You develop severe headaches. ? Your nausea or vomiting continues or gets worse. ? You develop visual changes. ? Your family or friends notice any behavioral changes. ? Your condition gets worse. ? You have a fever. ? You develop a stiff neck or sensitivity to light. MAKE SURE YOU: ? Understand these instructions. ? Will watch your condition. ? Will get help right away if you are not doing well or get worse. Document Released: 07/04/2007 Document Revised: 12/18/2012 Document Reviewed: 06/15/2012 ExitCare? Patient Information ?2014 [employer], [facility]. This information is not intended to replace advice given to you by your health care provider. Make sure you discuss any questions you have with your health care provider. Normal [facility] ED Patient Summaryon 019 ED Patient Summary [address] [address] Patient Discharge Instructions Person Information Name: SHIRA MERRITT Age: 78 Years Arrival Date: 03/14/2019 6:38 PM Discharge Diagnosis: 1:Benign paroxysmal vertigo, right ear Primary Care Physician: Tayla RENDON CNP Provider Information Primary Provider: Harinder Pabon MD Advanced Instructor Dramatic Arts:None The exam and treatment you received in the Emergency Department were for an urgent problem and are not intended as complete care. It is important that you follow up with a doctor, nurse practitioner, or physician?s contract administrative assistant for ongoing care. If your symptoms become worse or you do not improve as expected and you are unable to reach your usual health care provider, you should return to the Emergency Department. We are available 24 hours a day. SHIRA MERRITT has been given the following list of patient education materials, prescriptions and follow-up instructions: Follow-up Instructions: With: Address: When: Tayla RENDON Within 1 to 2 days In the event that this physician does not participate in your insurance network, please consult with your insurance company to find a nearby participating provider. Patient Education Materials: Benign Positional Vertigo A MESSAGE TO ALL PATIENTS REGARDING OPIOIDS PRESCRIPTION OPIOIDS: WHAT YOU NEED TO KNOW Prescription opioids can be used to help relieve naivtchz-vj-azuthx pain and are often prescribed following a surgery or injury, or for certain health conditions. These medications can be an important part of the treatment but also come with serious risks. It is important to work with your healthcare provider to make sure you are getting the safest, most effective care. WHAT ARE THE RISKS AND SIDE EFFECTS OF OPIOID USE? Prescription opioids carry serious risks of addiction and overdose, especially with prolonged use. An opioid overdose, often marked by slowed breathing, can cause sudden . The use of prescription opioids can have a number of side effects as well, even when taken as directed: ? Tolerance?meaning you might need to take more of the medication for the same pain relief ? Physical dependence?meaning you have symptoms of withdrawal when a medication is stopped ? Increased sensitivity to pain ? Constipation ? Nausea, vomiting, and dry mouth ? Sleepiness and dizziness ? Confusion ? Depression ? Low levels of testosterone that can result in lower sex drive, energy, and strength ? Itching and sweating RISKS ARE GREATER WITH: ? History of drug misuse, substance use disorder, or overdose ? Mental health conditions (such as depression or anxiety) ? Sleep apnea ? Older age (65 years and older) ? Avoid alcohol while taking prescription opioids. Also, unless specifically advised by your health care provider, medications to avoid include: ? Benzodiazepines (such as Xanax or Valium) ? Muscle relaxants (such as Soma or Flexeril) ? Hypnotics (such as Ambien or Lunesta) ? Other prescription opioids KNOW YOUR OPTIONS Talk to your health care provider about ways to manage your pain that don?t involve prescription opioids. Some of these options may actually work better and have fewer risks and side effects. Options may include: ? Pain relievers such as acetaminophen, ibuprofen, and naproxen ? Some medication that are also used for depression or seizures ? Physical therapy and exercise ? Cognitive behavioral therapy, a psychological, goal-directed approach, in which patients learn how to modify physical, behavioral, and emotional triggers of pain and stress. IF YOU ARE PRESCRIBED OPIOIDS FOR PAIN: ? Never take opioids in greater amounts or more often than prescribed. ? Follow up with your primary health care provider. o Work together to create a plan on how to manage your pain. o Talk about ways to help manage your pain that don?t involve prescription opioids. o Talk about any and all concerns and side effects. ? Help prevent misuse and abuse o Never sell or share prescription opioids. o Never use another person?s prescription opioids. ? Store prescription opioids in a secure place and out of reach of others (this may include visitors, children, friends, and family). ? Safely dispose of unused prescription opioids: Find your community drug take-back program or your pharmacy mail-back program, or flush them down the toilet, following guidance from the Food and Drug Administration (www.fda.gov/Drugs/Re sourcesForYou). ? Visit www.cdc.gov/drugoverd ose to learn about the risks of opioids abuse and overdose. ? If you believe you may be struggling with addiction, tell your health patient care technician and ask for guidance or call [facility] National Helpline at 0-115-849-OWLM. p Source: [place] Department of Health and Human Services/Center for Disease Control & Prevention [facility] Medications Given: Medication Dose Route meclizine 25.00 mg Oral Medication Information: New Medications [facility] [address], [address], [place] [id number], [phone] meclizine (Antivert 25 mg Tab) 1 Tabs By Mouth 3 times a day as needed for dizziness. Refills: 0. Medications to Continue with No Changes Other Medications lactobacillus acidophilus (Acidophilus Probiotic Blend) 1 Capsules By Mouth every day for 30 Days. mesalamine (Lialda 1.[address] tab) 1.2 gram Oral Daily 2 tabs daily. olopatadine ophthalmic (Patanol 0.1% ophthalmic solution) 1 Drops Both eyes 2 times a day. Comment: Pharmacy Information: Thank you for choosing [facility] Patient Education Materials: Benign Positional Vertigo Vertigo means you feel like you or your surroundings are moving when they are not. Benign positional vertigo is the most common form of vertigo. Benign means that the cause of your condition is not serious. Benign positional vertigo is more common in older adults. CAUSES Benign positional vertigo is the result of an upset in the labyrinth system. This is an area in the middle ear that helps control your balance. This may be caused by a viral infection, head injury, or repetitive motion. However, often no specific cause is found. SYMPTOMS Symptoms of benign positional vertigo occur when you move your head or eyes in different directions. Some of the symptoms may include: ? Loss of balance and falls. ? Vomiting. ? Blurred vision. ? Dizziness. ? Nausea. ? Involuntary eye movements (nystagmus). DIAGNOSIS Benign positional vertigo is usually diagnosed by physical exam. If the specific cause of your benign positional vertigo is unknown, your caregiver may perform imaging tests, such as magnetic resonance imaging (MRI) or computed tomography (CT). TREATMENT Your caregiver may recommend movements or procedures to correct the benign positional vertigo. Medicines such as meclizine, benzodiazepines, and medicines for nausea may be used to treat your symptoms. In rare cases, if your symptoms are caused by certain conditions that affect the inner ear, you may need surgery. HOME CARE INSTRUCTIONS ? Follow your caregiver's instructions. ? Move slowly. Do not make sudden body or head movements. ? Avoid driving. ? Avoid operating heavy machinery. ? Avoid performing any tasks that would be dangerous to you or others during a vertigo episode. ? Drink enough fluids to keep your urine clear or pale yellow. SEEK IMMEDIATE MEDICAL CARE IF: ? You develop problems with walking, weakness, numbness, or using your arms, hands, or legs. ? You have difficulty speaking. ? You develop severe headaches. ? Your nausea or vomiting continues or gets worse. ? You develop visual changes. ? Your family or friends notice any behavioral changes. ? Your condition gets worse. ? You have a fever. ? You develop a stiff neck or sensitivity to light. MAKE SURE YOU: ? Understand these instructions. ? Will watch your condition. ? Will get help right away if you are not doing well or get worse. Document Released: 07/04/2007 Document Revised: 12/18/2012 Document Reviewed: 06/15/2012 ExitCare? Patient Information ?2015 [employer]. This information is not intended to replace advice given to you by your health care provider. Make sure you discuss any questions you have with your health care provider. RENÉ Campoverde LOUISE , have received the following patient education materials/instruction s and have verbalized understanding: Patient Education Materials: Benign Positional Vertigo Follow-up Instructions: With: Address: When: Tayla RENDON Within 1 to 2 days Prescriptions: [meclizine (Antivert 25 mg Tab)] Patient Signature Date Clinician/Nurse Signature Date 03/14/19 21:43:41 Normal [facility] eGFRon 03-14-2019 GFR/1.73 sq M predicted among blacks MDRD (S/P/Bld) [Vol rate/Area] mL/min/{1.73_m2} Normal >=59 [facility] Comment on above: Order Comment: Order added by Discern Expert. Result Comment: eGFR is race adjusted. AA=. Performed By: #### 1 [id number] #### [facility] [address] [place] [address] GFR/1.73 sq M predicted among non-blacks MDRD (S/P/Bld) [Vol rate/Area] mL/min/{1.73_m2} Normal >=59 [facility] Comment on above: Order Comment: Order added by Discern Expert. Result Comment: Storage Brine Worker gregoria kidney disease could be indicated at eGFR's of less than 60 mL/min/1.73m2. Kidney failure is indicated at less than 15 mL/min/1.73m2. Performed By: #### 1 [id number] #### [facility] [address] [place] [address] Coding Summary.on 01-25-2019 Coding Summary. CODING DATE: 01/25/2019 FINAL [facility] STATUS: SNF w/ Medicare Cert PAYOR: Medicare Grouper: 372 MS-DRG Major gastrointestinal disorders & peritoneal infections w CC Low Trim 0 High Trim 999 248 APR-DRG MAJOR GASTROINTESTINAL & PERITONEAL INFECTIONS Severity of Illness Moderate Risk of Mortality Moderate ADMIT DX: A04.72 Enterocolitis due to Clostridium difficile, not specified as recurrent REASON FOR VISIT DX: FINAL DX: PRINCIPAL: A04.72 Y Enterocolitis due to Clostridium difficile, not specified as recurrent SECONDARY: K51.90 Y Ulcerative colitis, unspecified, without complications E86.0 Y Dehydration E87.6 Y Hypokalemia K62.89 Y Other specified diseases of anus and rectum K57.30 Y Diverticulosis of large intestine without perforation or abscess without bleeding K64.4 Y Residual hemorrhoidal skin tags M19.90 Y Unspecified osteoarthritis, unspecified site PROCEDURES DOCTOR NAME DATE [id number] Excision of Rectum, Via Natural Michel Shay MD, Deirdre 01/19/2019 or Artificial Opening Endoscopic, Diagnostic NOTE: The code number assigned matches the documented diagnosis and / or procedure in the patient's chart. However, the narrative phrase printed from the coding software may appear abbreviated, or result in slightly different terminology. Coded By: Leda Evans Date Saved: 01/25/2019 01:14 pm Normal [facility] Progress Note-Physicianon Progress Note-Physician Patient: SHIRA MERRITT Age: 78 years Sex: Female : 1940 Associated Diagnoses: None Author: Dewayne Romero MD Preoperative Information Anesthesia history: Patient History: No personal or Family history of problems with anesthesia. Re-eval prior to induction: Inital eval reviewed: No significant interval change. Review of Systems Constitutional: Negative. Cardiovascular: Cardiovascular risk stratafacation reviewed, 1 FOS without difficulty, No chest pain. Respiratory: No SOB. Hematology/Lymphatics : Negative. Gastrointestinal: as per HPI. Musculoskeletal: Negative. Neurologic: Negative. Health Status Allergies: Allergic Reactions (Selected) Severity Not Documented Augmentin- Unknown. Codeine Sulfate- Altered mental status. Darvocet A500- No reactions were documented. Darvon- No reactions were documented. Morphine- Restlessness. Sulfamethoxazole- No reactions were documented. Tape- No reactions were documented. Tetanus immune globulin- Rash. Vicodin- Altered mental status. Nonallergic Reactions (Selected) Severity Not Documented Valium- Altered mental status. Current medications: (Selected) Inpatient Medications Ordered Asacol 500 mg Cap-ER: 1,000 mg = 2 cap(s), Cap-ER, Oral, TID, Routine, Start date 01/16/19 22:00:00 EDT FIRST-Vancomycin 50: 125 mg = 2.5 mL, Susp-Oral, PEG, q6hrFT for 10 day(s), Stop date 01/26/19 7:44:00 EDT, NOW, Start date 01/16/19 7:45:00 EDT MetroNIDAZOLE 500 mg/100 mL IV Bekah: 500 mg = 100 mL, Soln-IV, IV Piggyback, q8hrFT for 14 day(s), Stop date 01/30/19 18:55:00 EDT, NOW, Start date 01/16/19 18:56:00 EDT, 100 mL/hr, Infuse over 1 hour(s) Sodium Chloride 0.9% IV Bekah 1000 mL 1,000 mL: 1,000 mL, IV, 20 mL/hr, Routine, Start date 01/19/19 7:42:00 EDT, 50 hour(s), Total volume (mL): 1,000 Zofran 4 mg/2 mL Injection: 4 mg = 2 mL, Injection, IV Push, q6hr PRN Nausea, Routine, Start date 01/16/19 0:16:00 EDT acetaminophen 325 mg Tab: 650 mg = 2 tab(s), Tab, Oral, q6hr PRN Pain, Routine, Start date 01/16/19 0:16:00 EDT hydrALAZINE 20 mg/mL Inj: 10 mg = 0.5 mL, Injection, IV Push, q6hr PRN Other (see comment), Routine, Start date 01/16/19 0:16:00 EDT morphine 2 mg/mL Inj: 1 mg = 0.5 mL, Injection, IV Push, q4hr PRN Pain for 5 day(s), Stop date 01/21/19 0:15:00 EDT, Routine, Start date 01/16/19 0:16:00 EDT Documented Medications Documented Lialda 1.[address] tab: 2.4 gram, Oral, Daily Lidoderm 5% Patch: 1 patch(es), TransDermal, Daily, Refill(s) 0, PRN for back pain Tylenol Extra Strength 500 mg oral tablet: 500 mg = 1 tab(s), Oral, q4hr, PRN Pain/Fever, Refills(s) 0 loratadine 10 mg oral capsule: 10 mg = 1 cap(s), Oral, Daily, PRN Allergy symptoms, Refills(s) 0, Allergy symptoms Problem list: All Problems At risk for falls / SNOMED CT 437837506 / Possible Problem added when Risk for Falls Careplan was initiated. Clostridium difficile diarrhea / SNOMED CT 2556242971 / Confirmed Problem added secondary to positive C-Diff lab result. Dehydration / SNOMED CT 21968941 / Confirmed Hypokalemia / SNOMED CT 29232565 / Confirmed Resolved: Acute arthritis / SNOMED CT 74896480 Resolved: Chest pain on exertion / SNOMED CT 606392065 Resolved: 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 / ICD-9-CM 556.4 Resolved: Osteoarthritis / ICD-9-CM 715.90 Canceled: None / SNOMED CT 008489666 Histories Past Medical History: Resolved Osteoarthritis (715.90): Resolved. 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 (556.4): Resolved. Acute arthritis (92179132): Resolved. Chest pain on exertion (704532763): Resolved on 01/18/2017 at 76 years. Procedure history: Colonoscopy. colon resection. colon resection 11/25/2012. Cholecystectomy (11231854). Appendectomy (946147167). Social History Social & Psychosocial Habits Alcohol 02/17/2011 Risk Assessment: Denies Alcohol Use Exercise 02/17/2011 Risk Assessment: Occasional exercise Home/Environment 01/16/2019 Lives with: Alone Living situation: Home/Independent Alcohol abuse in household: No Substance abuse in household: No Smoker in household: No Substance Abuse 02/17/2011 Risk Assessment: Denies Substance Abuse 01/16/2019 IV drug use: No Comment: The patient denies any substance abuse, current/past tobacco use, or alcohol use. - 01/16/2019 00:17 - Gopi OCASIO, Maryuri Tan Tobacco 02/17/2011 Risk Assessment: Denies Tobacco Use . Physical Examination Pain assessment: Self-reports no pain. Airway: Mallampati classification: II (soft palate, fauces, uvula visible). Distance: Adequate. Mouth: Adequate opening. Neck: Full range of motion. Respiratory: Respirations are non-labored. Cardiovascular: Regular rhythm. Neurologic: Alert, Oriented. Review / Management Results review: Labs Most Recent Results Hgb L 11.8 (JAN 18) L 11.9 (JAN 17) 12.7 (JAN 16) Hct 34.9 (JAN 18) 36.2 (JAN 17) 38.1 (JAN 16) Cl 0.7 (JAN 17) 0.7 (JAN 16) . Plan [place] [employer]hesi[employer] (ASA) physical status classification: Class III. Anesthetic Preoperative Plan Anesthesia: General. . Anesthetic plan, risks, benefits, and alternatives discussed with the patient and/or family. Patient verbalized understanding. Pt agrees with anesthetic plan and accepts all risks including but not limited to; Bleeding, infection, nerve injury, dental injury, eye injury, headache, low blood pressure, serious problems with the heart and lungs, allergic reactions, and .. Normal [facility] Comment on above: Result Comment: Elec tronically Signed By: Nick MCCONNELL, Dewayne\\.br\\Date and Time Signed: 01/23/19 10:12 EDT Main OR Intraoperative Recor don 01-22-2019 Main OR Intraoperative Record IntraOp Document Type FT Summary Primary Physician: Dedrick Waters MD Finalized Date/Time: 01/22/19 09:25:23 Pt. Name: SHIRA MERRITT.O.B./Sex: 1940 Female Med Rec #: [id number] Physician: Jesus Osorio MD Financial #: [id number] Pt. Type: I Room/Bed: S333/01 Admit/Disch: 01/15/19 23:15:00 - 01/20/19 15:10:00 Institution: Case Times FT Entry 1 Patient Times In Room 01/19/19 12:11:00 Out Room 01/19/19 12:25:00 Procedure Times Start 01/19/19 12:15:00 Stop 01/19/19 12:18:00 Anesthesia Times Start 01/19/19 12:11:00 Stop 01/19/19 12:25:00 Last Modified By: Lizbeth Romero CST 01/19/19 12:26:10 General Comments: 01/22/2019 Chart opened to review and send charges Nayeli Romero CST Case Attendance FT Entry 1 Entry 2 Entry 3 Case Attendee Michel Shay MD, Nick MCCONNELL, Dewayne Mandujano RN, Radha Tse Role Performed Surgeon - Primary Anesthesiologist of Meter Reader Inspector - Primary Record Time In 01/19/19 12:11:00 01/19/19 12:11:00 01/19/19 12:11:00 Time Out 01/19/19 12:25:00 01/19/19 12:25:00 01/19/19 12:25:00 Procedure SIGMOIDOSCOPY(.) SIGMOIDOSCOPY(.) SIGMOIDOSCOPY(.) Comments Last Modified By: Delbert RN, Radha Mandujano RN, Radha Mandujano RN, Radha Casas 01/19/19 12:26:18 01/19/19 12:26:18 01/19/19 12:26:18 Entry 4 Case Attendee Micheline Valladares CST Role Performed Scrub - Primary Time In 01/19/19 12:11:00 Time Out 01/19/19 12:25:00 Procedure SIGMOIDOSCOPY(.) Comments Last Modified By: Radha Mandujano RN 01/19/19 12:26:18 Perioperative Protocols FT Pre-Care Text: Implements protective measures prior to operative or invasive procedure, confirms identity before the operative or invasive procedure, verifies operative procedure, surgical site, and laterality Entry 1 Procedure(s) SIGMOIDOSCOPY(.) Patient Identity Birthday, ID Band Verified (select at Check, Patient least 2): Participation Consents / H and P Anesthesia Consent, Operative Site N/A Verified HandP, Surgery/Procedure Marking Verified Consent Surgical Site No Laterality Verified n/a Verified Procedure Verified Yes Correct Patient Yes Position Verified Availability Equipment, Medication Prep Dry n/a Verified (If Applicable) PreOp Antibiotic No Time Out Michel Shay MD, Given Participants Delbert Tse RN, Kara N, Micheline Valladares CST, Barney MD, Dewayne Time Out Complete 01/19/19 12:14:00 Outcomes Met? Yes Last Modified By: Radha Mandujano RN 01/19/19 12:16:07 Post-Care Text: The patient is free from signs and symptoms of injury caused by extraneous objects Allergy Information FT Pre-Care Text: Verifies allergies Entry 1 Allergies Reviewed? Yes Allergies Reviewed Self/Patient With Outcomes Met? Yes Last Modified By: Radha Mandujano RN 01/19/19 09:16:16 Post-Care Text: The patient received appropriate medication(s) safely administered during the perioperative period Surgical Procedures FT Entry 1 Procedure Description Procedure SIGMOIDOSCOPY Modifiers . Surgeon Description Sigmoidoscopy with rectal biopsy. Primary Procedure Yes Primary Surgeon Michel Shay MD, Dedrick Start 01/19/19 12:15:00 Stop 01/19/19 12:18:00 Anesthesia Type General Surgical Service Gastroenterology Wound Class 2 - Clean-Contaminated Last Modified By: Radha Mandujano RN 01/19/19 12:27:48 General Case Data FT Pre-Care Text: Classifies surgical wound, implements aseptic technique, initiates traffic control Entry 1 Case Information OR ENDO 1 FT Case Level Level 2 Wound Class 2 - Clean-Contaminated Specialty Gastroenterology ASA Class 3 Preop Diagnosis Bloody diarrhea Postop Same As Preop No Postop Diagnosis Severe colitis and Outcomes Met? Yes sigmoid colon diverticulosis Last Modified By: Radha Mandujano RN 01/19/19 12:19:19 Post-Care Text: The patient is free from signs and symptoms of infection Skin Assessment (Pre Procedure) FT Pre-Care Text: Implements protective measures to prevent skin/ tissue injury due to thermal or mechanical sources Evaluates for signs and symptoms of physical injury to skin and tissue Entry 1 Skin Integrity Intact, [place], Warm, and Skin Abnormality No Dry Outcomes Met? Yes Last Modified By: Radha Mandujano RN 01/19/19 09:16:46 Post-Care Text: The patient is free from signs and symptoms of injury caused by extraneous objects Patient Positioning FT Pre-Care Text: Identifies physical alterations that require additional precautions for procedure-specific positioning, verifies presence of prosthetics or corrective devices, positions the patient, evaluates the patient for signs and symptoms of injury as a result of positioning Entry 1 Procedure SIGMOIDOSCOPY(.) Body Position Lateral, right side up Feet Uncrossed? Yes Left Arm Position Resting at Side Right Arm Position Resting at Side Left Leg Position Extended Right Leg Position Extended Positioning Device Pillow Under Head Large Press Points Checked Yes By Radha Mandujano RN, Dewayne Romero MD Outcomes Met? Yes Last Modified By: Radha Mandujano RN 01/19/19 12:16:14 Post-Care Text: The patient is free from signs and symptoms of injury related to positioning Patient Care Devices FT Pre-Care Text: Implements protective measures to prevent skin/ tissue injury due to thermal or mechanical sources Entry 1 Entry 2 Equipment Type ENDOSCOPY VIDEO MONITOR CHARGE SURGERY SYSTEM[F] [F] Equipment Number [id number] Equipment Setting Outcomes Met? Yes Yes Last Modified By: Radha Mandujano RN, RN, Kara N 01/19/19 09:17:15 01/19/19 09:17:15 Post-Care Text: The patient is free from signs and symptoms of injury caused by extraneous objects Transport To OR FT Pre-Care Text: Transports according to individual needs. Evaluates for signs and symptoms of skin and tissue injury as a result of transfer or transport Entry 1 Via Cart By Radha Mandujano RN Safety Precautions Side Rails Up Outcomes Met? Yes Last Modified By: Radha Mandujano RN 01/19/19 09:17:24 Post-Care Text: The patient is free from signs and symptoms of injury related to transfer/transport Departure From OR FT Pre-Care Text: Transports according to individual needs. Evaluates for signs and symptoms of skin and tissue injury as a result of transfer or transport. Entry 1 Via Cart Safety Precautions Side Rails Up PostOp Destination PACU Transported By Radha Mandujano RN Patient Status Stable Skin. Condition Intact, [place], Warm, and Dry Airway Maintenance Oxygen in Use? No Airway Device N/A Outcomes Met? Yes Last Modified By: Radha Mandujano RN 01/19/19 09:18:31 Post-Care Text: The patient is free from signs and symptoms of injury related to transfer/transport General Comments: Report given to PACU,RN/[place],park police Administration FT Pre-Care Text: Verifies allergies, administers prescribed medications and solutions, administers prescribed antibiotic therapy and immunizing agents as ordered, evaluates response to medications Administers prescribed medications and solutions Entry 1 Expiration Date Yes Outcomes Met? Yes Verified Last Modified By: Radha Mandujano RN 01/19/19 09:18:03 Post-Care Text: The patient received appropriate medication(s) safely administered during the perioperative period For [facility] please see scanned medication reconcilliation form for medications used at the field during the procedure. Cultures and Specimens FT Pre-Care Text: Manages specimen handling and disposition Manages culture specimen collection Entry 1 Cultures Ordered No Specimens Ordered Yes Specimen Disposition Designated OR Area Frozen Section Times Outcomes Met? Yes Last Modified By: Radha Mandujano RN 01/19/19 12:25:51 Post-Care Text: The patient is free from signs and symptoms of injury caused by extraneous objects The patient is free from signs and symptoms of infection Case Comments Finalized By: Lizbeth Romero CST Document Signatures Signed By: Radha Mandujano RN 01/19/19 12:27 Radha Mandujano RN 01/19/19 12:26 Lizbeth Romero CST 01/22/19 09:25 Normal [facility] Discharge Note-Nursingon Discharge Note-Nursing Report called to Migel at the [facility]. IV discontinued by this RN. Patient envelope prepared with facesheet, MAR, signed medication list, discharge instructions, MAR and C-Diff positive print out. Envelope sent with transport. Wheelchair van was scheduled but ambulance arrived, transport personnel state the Wheelchair Van doesn't operate on the weekends. Patient aware of out of pocket cost and signed wavier. Departed [facility] around 1510. Normal [facility] Inpatient Clinical Summaryon 01-20-2019 Inpatient Clinical Summary [address] [address] Clinical Summary Person Information: Name: SHIRA MERRITT Age: 78 Years : 1940 12:00 AM Sex: Female PCP: Tayla RENDON CNP Marital Status: Race: White Ethnicity: Non- or Language: Latvian MRN: Visit Id: Visit Reason: ABDOMINAL PAIN, LOWER GI BLEED Speciality: Acuity: Enc Type: Inpatient Med Service: Medical Arrival: 01/15/2019 11:15 PM Discharge: Dispo Type: Address: [address] [place] [id number] Provider Notes: Diagnosis: 1:Abdominal pain; 2:C. difficile diarrhea; 3:Ulcerative colitis; 4:Dehydration; 5:Hypokalemia; 6:Diverticulosis Problems Active Hypokalemia Dehydration Clostridium difficile diarrhea Smoking Status: Never Smoker Functional Status: Sensory Deficits: No hearing deficits, Visual impairment, left eye, Visual impairment, right eye, Wears glasses History of Falls: Mobility Assistance Prior to Admission: Independent ADLs: Minimal assistance Current Level of Assistance for Self-Care/Mobility: Cognitive Status: Allergies sulfamethoxazole Vicodin (Altered mental status) Darvon Darvocet A500 Valium (Altered mental status) Augmentin (Unknown) morphine (Restlessness) Codeine Sulfate (Altered mental status) Tape tetanus immune globulin (Rash) Measurements: Height: 163 cm Weight: 54.9 kg Blood Pressure: 123 mmHg / 61 mmHg BMI: 20.55 kg/m2 Procedures Flexible sigmoidoscopy (01/19/2019) Immunizations No Immunizations Documented This Visit Final Med List: acetaminophen (Tylenol Extra Strength 500 mg oral tablet) 1 Tabs By Mouth every 4 hours as needed Pain/Fever. loratadine (loratadine 10 mg oral capsule) 1 Capsules By Mouth every day as needed Allergy symptoms. mesalamine (Asacol 500 mg Cap-ER) 2 Capsules By Mouth 4 times a day. mesalamine (mesalamine 4 g/60 mL rectal enema) 60 Milliliter By rectum at bedtime. metronidazole (Flagyl 500 mg Tab) 1 Tabs By Mouth every 8 hours for 7 Days. Refills: 0. vancomycin (FIRST-Vancomycin 50 oral suspension) 2.5 Milliliter By Mouth every 6 hours for 10 Days. Refills: 0. Care Team Members: Attending Physician: Jesus Osorio MD Consulting Physician: Michel Shay MD, Dedrick Referring Physician: Follow up: With: Address: When: Tayla RENDON 01/30/2019 10:15 AM Patient Education Information: Dehydration, Elderly; Ulcerative Colitis; Colitis Normal [facility] Inpatient Patient Summaryon 01-20-2019 Inpatient Patient Summary [place] [id number] Patient Discharge Instructions PERSON INFORMATION Name: SHIRA MERRITT Date of : 1940 12:00 AM Current Date: 01/20/19 13:59:01 PHYSICIANS Admitting Physician: Jesus Osorio MD Primary Care Physician: Tayla RENDON CNP PCP Comment: Discharge Diagnosis: 1:Abdominal pain; 2:C. difficile diarrhea; 3:Ulcerative colitis; 4:Dehydration; 5:Hypokalemia; 6:Diverticulosis Condition at Discharge: Stable RENÉSHIRA has been given the following list of follow-up instructions, prescriptions, and patient education materials: PATIENT FOLLOW-UP INFORMATION Diet: Regular Discharge Activity: Discharge Restrictions: No driving Wound Care Instructions: Remove Your Dressing In Days Call Your Doctor For: Return to Work: IF UNABLE TO CONTACT YOUR PHYSICIAN AND YOU FEEL IT IS AN EMERGENCY, GO TO THE NEAREST EMERGENCY ROOM OR CALL 911 Home Treatment: Devices/Equipment: Cane, Walker Special Services: Additional Instructions: Primary Care Physician to provide the following pending test results: Biopsy/pathology Follow up: With: Address: [place]: Tayla RENDON 01/30/2019 10:15 AM In the event that this physician does not participate in your insurance network, please consult with your insurance company to find a nearby participating provider. Comment: RENÉ Campoverde SHIRA, have received the attached patient education materials/instruction s and have verbalized understanding: Patient Signature Date Clinican/Nurse Signature Date HERE ARE THE MEDICATION CHANGES THAT OCCURRED DURING YOUR HOSPITAL STAY New Medications [facility], [address], [place] [id number], [phone] metronidazole (Flagyl 500 mg Tab) 1 Tabs By Mouth every 8 hours for 7 Days. Refills: 0. Last Dose: ____Next Dose: ____ vancomycin (FIRST-Vancomycin 50 oral suspension) 2.5 Milliliter By Mouth every 6 hours for 10 Days. Refills: 0. Last Dose: ____Next Dose: ____ Medications to Continue Taking That Have Changed Other Medications START: mesalamine (Asacol 500 mg Cap-ER) 2 Capsules By Mouth 4 times a day. Last Dose: ____Next Dose: ____ START: mesalamine (mesalamine 4 g/60 mL rectal enema) 60 Milliliter By rectum at bedtime. Last Dose: ____Next Dose: ____ STOP: mesalamine (Lialda 1.[address] tab) 2.4 Gram By Mouth every day. Medications to Continue with No Changes Other Medications acetaminophen (Tylenol Extra Strength 500 mg oral tablet) 1 Tabs By Mouth every 4 hours as needed Pain/Fever. Last Dose: ____Next Dose: ____ loratadine (loratadine 10 mg oral capsule) 1 Capsules By Mouth every day as needed Allergy symptoms. Last Dose: ____Next Dose: ____ No Longer Take the Following Medications lidocaine topical (Lidoderm 5% Patch) 1 Patches Transdermal every day. PRN for back pain. Comment: MEDICATION LIST PROVIDED FOR YOU IS A LIST OF YOUR CURRENT MEDICATIONS. PLEASE CARRY THIS WITH YOU AT ALL TIMES. acetaminophen (Tylenol Extra Strength 500 mg oral tablet) 1 Tabs By Mouth every 4 hours as needed Pain/Fever. loratadine (loratadine 10 mg oral capsule) 1 Capsules By Mouth every day as needed Allergy symptoms. mesalamine (Asacol 500 mg Cap-ER) 2 Capsules By Mouth 4 times a day. mesalamine (mesalamine 4 g/60 mL rectal enema) 60 Milliliter By rectum at bedtime. metronidazole (Flagyl 500 mg Tab) 1 Tabs By Mouth every 8 hours for 7 Days. Refills: 0. vancomycin (FIRST-Vancomycin 50 oral suspension) 2.5 Milliliter By Mouth every 6 hours for 10 Days. Refills: 0. Pharmacy Information: [facility] Comment: PATIENT EDUCATION INFORMATION Instructions: Dehydration Dehydration is when you lose more fluids from the body than you take in. Vital organs such as the kidneys, brain, and heart cannot function without a proper amount of fluids and salt. Any loss of fluids from the body can cause dehydration. Older adults are at a higher risk of dehydration than younger adults. As we age, our bodies are less able to conserve water and do not respond to temperature changes as well. Also, older adults do not become thirsty as easily or quickly. Because of this, older adults often do not realize they need to increase fluids to avoid dehydration. CAUSES ? Vomiting. ? Diarrhea. ? Excessive sweating. ? Excessive urination. ? Fever. ? Certain medicines, such as blood pressure medicines called diuretics. ? Poorly controlled blood sugars. SIGNS AND SYMPTOMS Mild dehydration: ? Thirst. ? Dry lips. ? Slightly dry mouth. Moderate dehydration: ? Very dry mouth. ? Sunken eyes. ? Skin does not bounce back quickly when lightly pinched and released. ? Dark urine and decreased urine production. ? Decreased tear production. ? Headache. Severe dehydration: ? Very dry mouth. ? Extreme thirst. ? Rapid, weak pulse (more than 100 beats per minute at rest). ? Cold hands and feet. ? Not able to sweat in spite of heat. ? Rapid breathing. ? Blue lips. ? Confusion and lethargy. ? Difficulty being awakened. ? Minimal urine production. ? No tears. DIAGNOSIS Your health care provider will diagnose dehydration based on your symptoms and your exam. Blood and urine tests will help confirm the diagnosis. The diagnostic evaluation should also identify the cause of dehydration. TREATMENT Treatment of mild or moderate dehydration can often be done at home by increasing the amount of fluids that you drink. It is best to drink small amounts of fluid more often. Drinking too much at one time can make vomiting worse. Severe dehydration needs to be treated at the hospital. You may be given IV fluids that contain water and electrolytes. HOME CARE INSTRUCTIONS ? Ask your health care provider about specific rehydration instructions. ? Drink enough fluids to keep your urine clear or pale yellow. ? Drink small amounts frequently if you have nausea and vomiting. ? Eat as you normally do. ? Avoid: ? Foods or drinks high in sugar. ? Carbonated drinks. ? Juice. ? Extremely hot or cold fluids. ? Drinks with caffeine. ? Fatty, greasy foods. ? Alcohol. ? Tobacco. ? Overeating. ? Gelatin desserts. ? Wash your hands well to avoid spreading bacteria and viruses. ? Only take reao-adw-fzqolkt or prescription medicines for pain, discomfort, or fever as directed by your health care provider. ? Ask your health care provider if you should continue all prescribed and dwhm-dfd-wojzecy medicines. ? Keep all follow-up appointments with your health care provider. SEEK MEDICAL CARE IF: ? You have abdominal pain, and it increases or stays in one area (localizes). ? You have a rash, stiff neck, or severe headache. ? You are irritable, sleepy, or difficult to awaken. ? You are weak, dizzy, or extremely thirsty. ? You have a fever. SEEK IMMEDIATE MEDICAL CARE IF: ? You are unable to keep fluids down, or you get worse despite treatment. ? You have frequent episodes of vomiting or diarrhea. ? You have blood or green matter (bile) in your vomit. ? You have blood in your stool, or your stool looks black and tarry. ? You have not urinated in 6?8 hours, or you have only urinated a small amount of very dark urine. ? You faint. MAKE SURE YOU: ? Understand these instructions. ? Will watch your condition. ? Will get help right away if you are not doing well or get worse. Document Released: 12/16/2004 Document Revised: 10/01/2014 Document Reviewed: 06/03/2014 ExitCare? Patient Information ?2015 [employer]. This information is not intended to replace advice given to you by your health care provider. Make sure you discuss any questions you have with your health care provider. Ulcerative Colitis Ulcerative colitis is a long lasting swelling and soreness (inflammation) of the colon (large intestine). In patients with ulcerative colitis, sores (ulcers) and inflammation of the inner lining of the colon lead to illness. Ulcerative colitis can also cause problems outside the digestive tract. Ulcerative colitis is closely related to another condition of inflammation of the intestines called Crohn's disease. Together, they are frequently referred to as inflammatory bowel disease (IBD). Ulcerative colitis and Crohn's diseases are conditions that can last years to decades. Men and women are affected equally. They most commonly begin during adolescence and early adulthood. SYMPTOMS Common symptoms of ulcerative colitis include rectal bleeding and diarrhea. There is a wide range of symptoms among patients with this disease depending on how severe the disease is. Some of these symptoms are: ? Abdominal pain or cramping. ? Diarrhea. ? Fever. ? Tiredness (fatigue). ? Weight loss. ? Night sweats. ? Rectal pain. ? Feeling the immediate need to have a bowel movement (rectal urgency). CAUSES Ulcerative colitis is caused by increased activity of the immune system in the intestines. The immune system is the system that protects the body against disease such as harmful bacteria, viruses, fungi, and other foreign invaders. When the immune system overacts, it causes inflammation. The cause of the increased immune system activity is not known. This over activity causes long-lasting inflammation and ulceration. This condition may be passed down from your parents (inherited). Brothers, sisters, children, and parents of patients with IBD are more likely to develop these diseases. It is not contagious. This means you cannot catch it from someone else. DIAGNOSIS Your caregiver may suspect ulcerative colitis based on your symptoms and exam. Blood tests may confirm that there is a problem. You may be asked to submit a stool specimen for examination. X-rays and CT scans may be necessary. Ultimately, the diagnosis is usually made after a flexible tube is inserted via your anus and your colon is examined under sedation (colonoscopy). With this test, the specialist can take a tiny tissue sample from inside the bowel (biopsy). Examination of this biopsy tissue under a microscopy can reveal ulcerative colitis as the cause of your symptoms. TREATMENT ? There is no cure for ulcerative colitis. ? Complications such as massive bleeding from the colon (hemorrhage), development of a hole in the colon (perforation), or the development of precancerous or cancerous changes of the colon may require surgery. ? Medications are often used to decrease inflammation and control the immune system. These include medicines related to aspirin, steroid medications, and newer and stronger medications to slow down the immune system. Some medications may be used as suppositories or enemas. A number of other medications are used or have been studied. Your caregiver will make specific recommendations. HOME CARE INSTRUCTIONS ? There is no cure for ulcerative colitis disease. The best treatment is frequent checkups with your caregiver. Periodic reevaluation is important. ? Symptoms such as diarrhea can be controlled with medications. Avoid foods that have a laxative effect such fresh fruit and vegetables and dairy products. During flare ups, you can rest your bowel by staying away from solid foods. Drink clear liquids frequently during the day. Electrolyte or rehydrating fluids are best. Your caregiver can help you with suggestions. Drink often to prevent dehydration. When diarrhea has cleared, eat smaller meals and more often. Avoid food additives and stimulants such as caffeine (coffee, tea, many sodas, or chocolate). Avoid dairy products. Enzyme supplements may help if you develop intolerance to a sugar in dairy products (lactose). Ask your caregiver or dietitian about specific dietary instructions. ? If you had surgery, be sure you understand your care instructions thoroughly, including proper care of any surgical wounds. ? Take any medications exactly as prescribed. ? Try to maintain a positive attitude. Learn relaxation techniques such as self hypnosis, mental imaging, and muscle relaxation. If possible, avoid stresses that aggravate your condition. Exercise regularly. Follow your diet. Always get plenty of rest. SEEK MEDICAL CARE IF: ? Your symptoms fail to improve after a week or two of new treatment. ? You experience continued weight loss. ? You have ongoing crampy digestion or loose bowels. ? You develop a new skin rash, skin sores, or eye problems. SEEK IMMEDIATE MEDICAL CARE IF: ? You have worsening of your symptoms or develop new symptoms. ? You have an oral temperature above 102? F (38.9? C), not controlled by medicine. ? You develop bloody diarrhea. ? You have severe abdominal pain. Document Released: 07/06/2006 Document Revised: 12/18/2012 Document Reviewed: 06/04/2008 ExitCare? Patient Information ?2015 [employer]. This information is not intended to replace advice given to you by your health care provider. Make sure you discuss any questions you have with your health care provider. Colitis Colitis is inflammation of the colon. Colitis can be a short-term or long-standing (chronic) illness. Crohn's disease and ulcerative colitis are 2 types of colitis which are chronic. They usually require lifelong treatment. CAUSES There are many different causes of colitis, including: ? Viruses. ? Germs (bacteria). ? Medicine reactions. SYMPTOMS ? Diarrhea. ? Intestinal bleeding. ? Pain. ? Fever. ? Throwing up (vomiting). ? Tiredness (fatigue). ? Weight loss. ? Bowel blockage. DIAGNOSIS The diagnosis of colitis is based on examination and stool or blood tests. X-rays, CT scan, and colonoscopy may also be needed. TREATMENT Treatment may include: ? Fluids given through the vein (intravenously). ? Bowel rest (nothing to eat or drink for a period of time). ? Medicine for pain and diarrhea. ? Medicines (antibiotics) that kill germs. ? Cortisone medicines. ? Surgery. HOME CARE INSTRUCTIONS ? Get plenty of rest. ? Drink enough water and fluids to keep your urine clear or pale yellow. ? Eat a well-balanced diet. ? Call your caregiver for follow-up as recommended. SEEK IMMEDIATE MEDICAL CARE IF: ? You develop chills. ? You have an oral temperature above 102? F (38.9? C), not controlled by medicine. ? You have extreme weakness, fainting, or dehydration. ? You have repeated vomiting. ? You develop severe belly (abdominal) pain or are passing bloody or tarry stools. MAKE SURE YOU: ? Understand these instructions. ? Will watch your condition. ? Will get help right away if you are not doing well or get worse. Document Released: 11/03/2005 Document Revised: 12/18/2012 Document Reviewed: 01/29/2011 ExitCare? Patient Information ?2014 [employer]. This information is not intended to replace advice given to you by your health care provider. Make sure you discuss any questions you have with your health care provider. Medication Leaflets: Thank you for choosing [facility] Normal [facility] Interdisciplinary Note - Olu e Manageron 01-20-2019 Interdisciplinary Note - Account Development Associate CRM spoke with pt, white board updated. Pt stating she cannot take care of herself at home right now, is weak, agrees with [facility] and would have someone to take her there at d/c. No questions regarding MCR rights, second copy provided. Normal [facility] Potassiumon 01-20-2019 Potassium [Moles/Vol] 3.7 mmol/L Normal 3.5-5.3 [facility] Comment on above: Performed By: #### 1 [id number], [id number], [id number], 5852640, 2540188, 0947157, 7115202, [id number] #### [facility] [address] [place] [address] Progress Note-Physicianon Progress Note-Physician Assessment/Plan 78-year-old female with past medical history of ulcerative colitis, osteoarthritis presented from outside hospital due to left lower quadrant pain associated with diarrhea. Patient was found to have C. difficile colitis along with ulcerative colitis exacerbation. 1. Abdominal pain Due to C. difficile colitis and urinary culture exacerbation Treatment as per GI recommendation 2. C. difficile diarrhea Resolved leukocytosis On oral vancomycin Continue IV Flagyl Flexible sigmoidoscopy results are noted Increase Asacol to 1 g 4 times a day 3. Ulcerative colitis Increase Asacol to 1 g 4 times a day Flexible sigmoidoscopy results showed severe proctitis starting at 25 cm to dentate line Follow-up biopsy results 4. Dehydration Resolved 5. Hypokalemia Resolved 6. Diverticulosis Follow-up with GI Disposition: Patient interested in going to rehabilitation. We'll have case management to look into placement versus home health once weakness has improved This report was transcribed using voice recognition software. Every effort was made to ensure accuracy, however, inadvertently computerized architectural model maker mistakes may be present. Usama Paul Hospitalist Subjective Had 1 loose stool overnight with small amount of blood. Complains about significant weakness. Concern about going home due to being alone and not having any help. Review of Systems Generalized weakness. Diarrhea with blood Objective Vitals & Measurements T: 36.8 ?C (Oral) TMIN: 36.3 ?C (Temporal Artery) TMAX: 37.3 ?C (Oral) HR: 88(Monitored) RR: 16 BP: 111/60 SpO2: 95% WT: 54.9 kg Intake & Output This visit (24 hour periods starting at 07:00 EDT) 01/20/19 * 01/19/19 01/18/19 Total Summary Intake mL 100 723 1,184.5 Output mL -- 450 -- Fluid Balance 100 273 1,184.5 Intake (9) Oral Intake mL -- 150 850 Sodium Chloride 0.9% mL -- 100 -- Sodium Chloride 0.9%, magnesium sulfate mL -- 52 -- lidocaine mL -- 1.5 -- metronidazole mL 100 200 300 ondansetron mL -- 2 2 potassium chloride mL -- 200 30 propofol mL -- 10 -- vancomycin mL -- 7.5 2.5 Total 100 723 1,184.5 Output (1) Urine Voided mL -- 450 -- Total -- 450 -- Counts (2) Stool Count 1 3 13 Urine Count 1 8 5 * This column has not completed the indicated time period. Physical Exam General: alert, mild distress ENMT: TM's clear, oral mucosa moist, no pharyngeal erythema or exudate Cardiovascular: regular rate and rhythm, normal peripheral perfusion Respiratory: Lungs CTA, respirations non labored Abdomen: Soft, nontender, without rebound or rigidity, positive bowel sounds Extremities: no deformity, no trauma Neurological: oriented x 4, LOC appropriate for age, CN II-XII intact, motor strength equal & normal bilaterally, sensation equal & normal bilaterally, speech normal Lab Results Potassium Lvl: 3.7 mmol/L (01/20/19 06:06:00 EDT) Problem List/Past Medical History Ongoing Clostridium difficile diarrhea Dehydration Hypokalemia Historical Acute arthritis Chest pain on exertion 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 Osteoarthritis Medications Inpatient acetaminophen 325 mg Tab, 650 mg= 2 tab(s), Oral, q6hr, PRN Asacol 500 mg Cap-ER, 1000 mg= 2 cap(s), Oral, QID FIRST-Vancomycin 50, 125 mg= 2.5 mL, Oral, q6hrFT hydrALAZINE 20 mg/mL Inj, 10 mg= 0.5 mL, IV Push, q6hr, PRN mesalamine, 4 gram= 60 mL, Rectal, Bedtime MetroNIDAZOLE 500 mg/100 mL IV Bekah, 500 mg= 100 mL, IV Piggyback, q8hrFT morphine 2 mg/mL Inj, 1 mg= 0.5 mL, IV Push, q4hr, PRN Sodium Chloride 0.9% IV Bekah 1000 mL 1,000 mL, 1000 mL, IV Zofran 4 mg/2 mL Injection, 4 mg= 2 mL, IV Push, q6hr, PRN Home Lialda 1.[address] tab, 2.4 gram, Oral, Daily Lidoderm 5% Patch, 1 patch(es), TransDermal, Daily loratadine 10 mg oral capsule, 10 mg= 1 cap(s), Oral, Daily, PRN Tylenol Extra Strength 500 mg oral tablet, 500 mg= 1 tab(s), Oral, q4hr, PRN, Self Directed Please use this as my discharge summary. Patient will be going to [facility] for rehabilitation. She'll be discharged on oral vancomycin and Flagyl. We'll continue increased dose of Asacol along with rectal enema. Discharge Status: Improved Discharge Instructions Given: To patient Discharge disposition: SNF Prescriptions reviewed with PatientPatient 34 min in discharge time [facility] Comment on above: Result Comment: Elec tronically Signed By: KHUSHI MCCONNELL, Usama Kuhn\\.jose miguel\\Date and Time Signed: 01/20/19 13:06 EDT Interdisciplinary Note - Olu e Manageron 01-19-2019 Interdisciplinary Note - Account Development Associate Rounding at this time with Dr. Hernandez, Becky [facility], Ivis CROW and Mariama OCASIO. Patient is alert and participates in plan of care. No family present. Patient to have scope 01/19 @ 1100. Labs and diagnostics reviewed. Insurance information, PCP and DME verified. Contact information provided and whiteboard updated. Anticipated discharge home with [facility], d/c TBD . Patient denies any further discharge needs/concerns at this time. Normal [facility] Interdisciplinary Note - Nut ritionon 01-19-2019 Interdisciplinary Note - Nutrition Pt reasssessment in progress, unable to meet with pt this day. Pt has significant wt loss of 3.3% (1.8 kg) in 3 days. Pt currently NPO for endoscopy. Acceptance of nutr. supp. unknown. POC pending. Discussed with student, agree with above documentation. Normal [facility] Lyteson 01-19-2019 Anion gap [Moles/Vol] 12 mmol/L Normal 6-16 [facility] Comment on above: Performed By: #### 1 [id number], [id number], [id number], 5223909, 8450473, 9024245, 5059146, 4782815, [id number] #### [facility] [address] [place] [address] Chloride [Moles/Vol] 107 mmol/L Normal 101-111 [facility] Comment on above: Performed By: #### 1 [id number], 8857110, [id number], 3578177, 5697250, 7534483, 8627590, 9554279, 9201811 #### [facility] [address] [place] [address] CO2 [Moles/Vol] 22 mmol/L Normal 21-31 [facility] Comment on above: Performed By: #### 1 [id number], 4153229, 62810998, 1981169, 2446168, 2823064, 8915035, 4347343, 7835611 #### [facility] [address] [place] [address] Potassium [Moles/Vol] 3.4 mmol/L Low 3.5-5.3 [facility] Comment on above: Performed By: #### 1 [id number], [id number], [id number], 9924867, 5405557, 3250851, 0415321, 1710770, 1674832 #### [facility] [address] [place] [address] Sodium [Moles/Vol] 138 mmol/L Normal 135-145 [facility] Comment on above: Performed By: #### 1 [id number], 0561020, 46707775, 7431474, 7846513, 4079778, 3861463, 4422028, 7049828 #### [facility] [address] [place] [address] Magnesiumon 01-19-2019 Magnesium [Mass/Vol] 1.8 mg/dL Normal 1.3-2.4 [facility] Comment on above: Performed By: #### 1 [id number], 8704388, 54151660, 4633350, 7195943, 8794042, 5049172, 4148617, 4220402 #### [facility] [address] [place] [address] Main OR PACU I Recordon 01-08 Main OR PACU I Record PACU Phase I Docum ent Type FT Summary Primary Physician: Dedrick Waters MD Finalized Date/Time: 01/19/19 13:01:30 Pt. Name: SHIRA MERRITT/Sex: 1940 Female Med Rec #: [id number] Physician: Jesus Osorio MD Financial #: [id number] Pt. Type: I Room/Bed: S333/01 Admit/Disch: 01/15/19 23:15:00 - Institution: Case Times PACU I FT Pre-Care Text: Identifies barriers to communication and implements measures to provide psychological support Develops individualized plan of care, and ensures continuity of care Maintains patient's dignity and privacy, and maintains patient confidentiality Identifies and reports philosophical, cultural, and spiritual beliefs and values Identifies individual values and wishes concerning care Implements aseptic technique, and administers prescribed antibiotic therapy and immunizing agents as ordered Evaluates postoperative tissue perfusion Implements thermoregulation measures, and monitors body temperature Evaluates postoperative respiratory status Evaluates postoperative cardiac status Evaluates postoperative neurological status Assesses pain control, collaborated in initiating patient-controlled analgesia and implements alternative methods of pain control Verifies allergies, administers prescribed medications and solutions, evaluates response to medications Entry 1 In PACU I 01/19/19 12:25:00 Discharge from PACU 01/19/19 12:55:00 I Outcomes Met? Yes Last Modified By: Joanna OCASIO BA, Sharon 01/19/19 13:01:14 Post-Care Text: The patient demonstrates knowledge of the expected response to the operative or invasive procedure The patient's care is consistent with the individualized perioperative plan of care The patient's right to privacy is maintained The patient's value system, lifestyle, ethnicity, and culture are considered, respected, and incorporated into the perioperative plan of care The patient participates in decisions affecting his or her perioperative plan of care The patient is free from signs and symptoms of infection The patient has wound/tissue perfusion consistent with or improved from baseline levels established preoperatively The patient is at or returning to normothermia at the conclusion of the immediate postoperative period The patient's respiratory function is consistent with or improved from baseline levels established preoperatively The patient's cardiovascular status is consistent with or improved from baseline levels established preoperatively The patient's cardiovascular status is consistent with or improved from baseline levels established preoperatively The patient demonstrates and/or reports adequate pain control throughout the perioperative period The patient received appropriate medication(s), safely administered during the perioperative period Acuity Level PACU I FT Entry 1 Start Time 01/19/19 12:25:00 Stop Time 01/19/19 12:55:00 Acuity Level Acuity Level I Last Modified By: Joanna OCASIO BA, Sharon 01/19/19 13:01:29 Finalized By: Joanna OCASIO BA, Sharon Document Signatures Signed By: Joanna OCASIO BA, Sharon 01/19/19 13:01 [facility] Main OR Preoperative Recordo n 01-19-2019 Main OR Preoperative Record Holding Area Document Type FT Summary Primary Physician: Dedrick Waters MD Finalized Date/Time: 01/19/19 11:22:45 Pt. Name: SHIRA MERRITT.O.B./Sex: 1940 Female Med Rec #: [id number] Physician: Jesus Osorio MD Financial #: [id number] Pt. Type: I Room/Bed: [place] [address] Admit/Disch: 01/15/19 23:15:00 - Institution: Case Times Holding FT Pre-Care Text: Verifies consent for planned procedure, identifies individual values and wishes concerning care, includes family members in perioperative teaching Secures patient's records' belongings, and valuables, maintains patient's dignity and privacy, and maintains patient confidentiality Entry 1 In Holding 01/19/19 11:14:00 Outcomes Met? Yes Last Modified By: Clementine Mares RN 01/19/19 11:16:59 Post-Care Text: The patient participates in decisions affecting his or her perioperative plan of care The patient's right to privacy is maintained Surgery Checklist FT Entry 1 Patient Birthday, ID Band Procedure History and Physical, Identification: Check, Patient Verification: Surgical Consent, With Participation Patient NPO after Midnight: No Personal Items: Cataract Lens Implant Limitations: bed Complaints of Pain: Yes Pain Comment: 04/18 llq Operative Site n/a Marking: Availability Equipment Verified: Does Patient Smoke No Patient states Yes Comment - Adult INPT postop adult Supervision supervision available Case Cancelled in No Holding Area see comments below for reason Last Modified By: Clementine Mares RN 01/19/19 11:22:39 Finalized By: Clementine Mares RN Document Signatures Signed By: Clementine Mares RN 01/19/19 11:22 Normal [facility] Progress Note-Physicianon Progress Note-Physician Assessment/Plan 1. Abdominal pain - Due to underlying C diff infection and UC exacerbation 2. C. difficile diarrhea - Leukocytosis resolved - Denies recent Abx usage - Oral Vancomycin 125mg po QID. Flagyl IV q8hrs. - No anti-diarrheals - CT A/P at outside hospital negative for colitis - GI consult reviewed. Patient with severe C. difficile. Flex sig as below. 3. Ulcerative colitis - Flex sig today showed severe proctitis. Increased Asacol to 1g po QID. Rowasa enema QHS. 4. Dehydration - Resolved. Off IVF 5. Hypokalemia - Due to underlying GI losses from diarrhea. Replacement ordered. 6. Diverticulosis - Present on colonoscopy. Subjective Still with abdominal pain and bloody diarrhea. Flex sig today revealed proctitis. Review of Systems Constitutional: no fever, no chills, + fatigue Skin: no rash Respiratory: no shortness of breath, no cough, no wheezing Cardiovascular: no chest pain, no palpitations, no edema Gastrointestinal: as above Musculoskeletal: no significant joint or muscle pain Neurologic: no headache, no dizziness Psych: no depression, no anxiety Objective Vitals & Measurements T: 37.3 ?C (Oral) TMIN: 36.3 ?C (Temporal Artery) TMAX: 37.3 ?C (Oral) HR: 78(Monitored) RR: 16 BP: 117/65 SpO2: 98% WT: 52.8 kg Intake & Output This visit (24 hour periods starting at 07:00 EDT) 01/19/19 * 01/18/19 01/17/19 Total Summary Intake mL 463.5 1,184.5 2,705 Output mL 200 -- -- Fluid Balance 263.5 1,184.5 2,705 Intake (10) Oral Intake mL -- 850 1,490 Sodium Chloride 0.9% mL 100 -- -- Sodium Chloride 0.9% intravenous solution 1,000 mL mL -- -- 900 Sodium Chloride 0.9%, magnesium sulfate mL 52 -- -- lidocaine mL 1.5 -- -- metronidazole mL 100 300 300 ondansetron mL -- 2 -- potassium chloride mL 200 30 15 propofol mL 10 -- -- vancomycin mL -- 2.5 -- Total 463.5 1,184.5 2,705 Output (1) Urine Voided mL 200 -- -- Total 200 -- -- Counts (2) Stool Count 2 13 15 Urine Count 1 5 9 * This column has not completed the indicated time period. Physical Exam General: alert, appears tired ENMT: AT/NC, neck supple Skin: no rash Cardiovascular: regular rate and rhythm, S1S2, normal peripheral perfusion Respiratory: Lungs CTA, respirations non labored, equal breath sounds bilaterally, no w/r/r Abd: Soft, diffusely TTP, ND Extremities: no deformity, no trauma, no edema Neurological: oriented, LOC appropriate for age, no focal deficits, speech normal Psych: cooperative, flat affect Lab Results Sodium Lvl: 138 mmol/L (01/19/19 06:39:00 EDT) Potassium Lvl: 3.4 mmol/L Low (01/19/19 06:39:00 EDT) Chloride: 107 mmol/L (01/19/19 06:39:00 EDT) CO2: 22 mmol/L (01/19/19 06:39:00 EDT) AGAP: 12 mEq/L (01/19/19 06:39:00 EDT) Magnesium: 1.8 mg/dL (01/19/19 06:39:00 EDT) Problem List/Past Medical History Ongoing Clostridium difficile diarrhea Dehydration Hypokalemia Historical Acute arthritis Chest pain on exertion 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 Osteoarthritis Medications Inpatient acetaminophen 325 mg Tab, 650 mg= 2 tab(s), Oral, q6hr, PRN Asacol 500 mg Cap-ER, 1000 mg= 2 cap(s), Oral, QID FIRST-Vancomycin 50, 125 mg= 2.5 mL, PEG, q6hrFT hydrALAZINE 20 mg/mL Inj, 10 mg= 0.5 mL, IV Push, q6hr, PRN mesalamine, 4 gram= 60 mL, Rectal, Bedtime MetroNIDAZOLE 500 mg/100 mL IV Bekah, 500 mg= 100 mL, IV Piggyback, q8hrFT morphine 2 mg/mL Inj, 1 mg= 0.5 mL, IV Push, q4hr, PRN Sodium Chloride 0.9% IV Bekah 1000 mL 1,000 mL, 1000 mL, IV Zofran 4 mg/2 mL Injection, 4 mg= 2 mL, IV Push, q6hr, PRN Home Lialda 1.[address] tab, 2.4 gram, Oral, Daily Lidoderm 5% Patch, 1 patch(es), TransDermal, Daily loratadine 10 mg oral capsule, 10 mg= 1 cap(s), Oral, Daily, PRN Tylenol Extra Strength 500 mg oral tablet, 500 mg= 1 tab(s), Oral, q4hr, PRN, Self Directed Normal [facility] Comment on above: Result Comment: Elec tronically Signed By: Mary MCCONNELL, [place]ara\\.br\\Date and Time Signed: 01/19/19 16:37 EDT Hct & Hgbon 01-18-2019 Hematocrit (Bld) [Volume fraction] 34.9 % Normal 34.0-46.0 [facility] Comment on above: Performed By: #### 1 [id number], [id number], [id number], 8559371, 1413444, 1625128, 8619879, 6764398, 5800160 #### [facility] [address] [place] [address] Hemoglobin (Bld) [Mass/Vol] 11.8 g/dL Low 12.0-16.0 [facility] Comment on above: Performed By: #### 1 [id number], 6892914, [id number], 5793069, 2476078, 8067302, 6644304, 7491616, 5495128 #### [facility] [address] [place] [address] Interdisciplinary Note - Olu e Manageron 01-18-2019 Interdisciplinary Note - Account Development Associate Rounding at this time with Dr. Hernandez, Becky [facility], Ivis CROW and Ariadna RN. Patient is alert and participates in plan of care. No family present. Labs and diagnostics reviewed. Insurance information, PCP and DME verified. Contact information provided and whiteboard updated. Dr Hernandez to talk to GI regarding a scope. Anticipated discharge home with [facility], 01/19 or 01/20/2019. Patient denies any further discharge needs/concerns at this time. CRM to follow. Normal [facility] Lyteson 01-18-2019 Anion gap [Moles/Vol] 10 mmol/L Normal 6-16 [facility] Comment on above: Performed By: #### 1 [id number], [id number], [id number], 5747851, 8080995, 3300966, 7973363, 4547227, 2094488 #### [facility] [address] [place] [address] Chloride [Moles/Vol] 110 mmol/L Normal 101-111 [facility] Comment on above: Performed By: #### 1 [id number], 1172881, 74345561, 9794072, 9413300, 4378694, 6048551, 9746950, 3504792 #### [facility] [address] [place] [address] CO2 [Moles/Vol] 22 mmol/L Normal 21-31 [facility] Comment on above: Performed By: #### 1 [id number], 2725666, 26007455, 7925108, 5287939, 8803608, 0785275, 9855493, 6603357 #### [facility] [address] [place] [address] Potassium [Moles/Vol] 3.4 mmol/L Low 3.5-5.3 [facility] Comment on above: Performed By: #### 1 [id number], 5963927, 79262474, 1376807, 2119635, 3894481, 0614283, 4366060, 2139574 #### [facility] [address] [place] [address] Sodium [Moles/Vol] 139 mmol/L Normal 135-145 [facility] Comment on above: Performed By: #### 1 [id number], 3836877, 62235591, 1731944, 5227778, 7283955, 6361900, 4957040, 3693725 #### [facility] [address] [place] [address] Progress Note-Nurseon 2018 Progress Note-Nurse Patient's rings placed in cup in locked medication cabinet per patient request. Granddaughter aware. Normal [facility] Progress Note-Physicianon Progress Note-Physician Assessment/Plan 1. Abdominal pain - Due to underlying C diff infection. 2. C. difficile diarrhea - Leukocytosis resolved - Denies recent Abx usage - Oral Vancomycin 125mg po QID. Flagyl IV q8hrs. - No anti-diarrheals - CT A/P at outside hospital negative for colitis - GI consult reviewed. Patient with severe C. difficile. Plans on perform Flex sig tomorrow to assess UC status. 3. Ulcerative colitis - Mesalamine 1000 mg 3 times a day. See above regarding flexible sigmoidoscopy. - Last flare-up a year ago (01/2018) 4. Dehydration - Resolved. Discontinue IVF. 5. Hypokalemia - Due to underlying GI losses from diarrhea. Replacement ordered. 6. Diverticulosis - Colonoscopy in 2017 showed diffuse diverticulosis Subjective Patient is still very weak. Does not feel she is improving as she would expect. Still with crampy abdominal pain. Still with diarrhea and reports it remains bloody. Review of Systems Constitutional: no fever, no chills, + fatigue Skin: no rash Respiratory: no shortness of breath, no cough, no wheezing Cardiovascular: no chest pain, no palpitations, no edema Gastrointestinal: as above Musculoskeletal: no significant joint or muscle pain Neurologic: no headache, no dizziness Psych: no depression, no anxiety Objective Vitals & Measurements T: 36.9 ?C (Oral) TMIN: 36.6 ?C (Oral) TMAX: 37.2 ?C (Oral) HR: 57(Monitored) RR: 16 BP: 131/75 SpO2: 98% WT: 52.8 kg Intake & Output This visit (24 hour periods starting at 07:00 EDT) 01/18/19 * 01/17/19 01/16/19 Total Summary Intake mL 1,082.5 2,705 1,731 Output mL -- -- 1,050 Fluid Balance 1,082.5 2,705 681 Intake (5) Oral Intake mL 850 1,490 -- Sodium Chloride 0.9% intravenous solution 1,000 mL mL -- 900 1,526 metronidazole mL 200 300 200 potassium chloride mL 30 15 -- vancomycin mL 2.5 -- 5 Total 1,082.5 2,705 1,731 Output (1) Urine Voided mL -- -- 1,050 Total -- -- 1,050 Counts (2) Stool Count 8 15 5 Urine Count -- 9 1 * This column has not completed the indicated time period. Physical Exam General: alert, appears tired ENMT: AT/NC, neck supple Skin: no rash Cardiovascular: regular rate and rhythm, S1S2, normal peripheral perfusion Respiratory: Lungs CTA, respirations non labored, equal breath sounds bilaterally, no w/r/r Abd: Soft, diffusely TTP, no peritoneal signs Extremities: no deformity, no trauma, diffuse edema noted Neurological: oriented, LOC appropriate for age, no focal deficits, speech normal Psych: cooperative, flat affect Lab Results WBC: 8.2 E9/L (01/18/19 06:04:00 EDT) Hgb: 11.8 gm/dL Low (01/18/19 06:04:00 EDT) Hct: 34.9 % (01/18/19 06:04:00 EDT) Sodium Lvl: 139 mmol/L (01/18/19 06:04:00 EDT) Potassium Lvl: 3.4 mmol/L Low (01/18/19 06:04:00 EDT) Chloride: 110 mmol/L (01/18/19 06:04:00 EDT) CO2: 22 mmol/L (01/18/19 06:04:00 EDT) AGAP: 10 mEq/L (01/18/19 06:04:00 EDT) Problem List/Past Medical History Ongoing Clostridium difficile diarrhea Dehydration Hypokalemia Historical Acute arthritis Chest pain on exertion 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 Osteoarthritis Medications Inpatient acetaminophen 325 mg Tab, 650 mg= 2 tab(s), Oral, q6hr, PRN Asacol 500 mg Cap-ER, 1000 mg= 2 cap(s), Oral, TID FIRST-Vancomycin 50, 125 mg= 2.5 mL, PEG, q6hrFT Fleet Enema, 270 mL, Rectal, Once hydrALAZINE 20 mg/mL Inj, 10 mg= 0.5 mL, IV Push, q6hr, PRN MetroNIDAZOLE 500 mg/100 mL IV Bekah, 500 mg= 100 mL, IV Piggyback, q8hrFT morphine 2 mg/mL Inj, 1 mg= 0.5 mL, IV Push, q4hr, PRN Zofran 4 mg/2 mL Injection, 4 mg= 2 mL, IV Push, q6hr, PRN Home Lialda 1.[address] tab, 2.4 gram, Oral, Daily Lidoderm 5% Patch, 1 patch(es), TransDermal, Daily loratadine 10 mg oral capsule, 10 mg= 1 cap(s), Oral, Daily, PRN Tylenol Extra Strength 500 mg oral tablet, 500 mg= 1 tab(s), Oral, q4hr, PRN, Self Directed Normal [facility] Comment on above: Result Comment: Elec tronically Signed By: Mary MCCONNELL, Sahara\\.br\\Date and Time Signed: 01/18/19 19:53 EDT WBCon 01-18-2019 WBC corrected for nucl RBC Auto (Bld) [#/Vol] 8.2 E9/L Normal 4.0-11.0 [facility] Comment on above: Performed By: #### 1 [id number], [id number], 2437488, 7514393, 9511795, 9586391, 7162240, 3015050 #### [facility] [address] [place] [address] XR Abdomen 1 Viewon 01-19-20 19 XR Abdomen 1 View Exam Date/Time: 01/18/2019 16:14 EDT Reason for Exam: Abdominal pain Report IMPRESSION: ILEUS VERSUS POSSIBLE BOWEL OBSTRUCTION. EXAM: XR Abdomen 1 View DATE AND TIME: 01/18/2019 4:03 PM CLINICAL HISTORY: Acute epigastric pain. Abdominal pain COMPARISON: 01/29/2018 FINDINGS: There are some fluid-filled loops primarily of small bowel with air-fluid levels and variable heights. Findings may represent a localized ileus or early partial bowel obstruction. No sign of free air. FINAL REPORT Dictated: 01/18/2019 4:42 pm Maycol Haddad MD Signed (Electronic Signature): 01/18/2019 4:42 pm Signed by: Maycol Haddad MD Transcribed by: KIRILL Technologist: RRSean Normal [facility] BMPon 01-17-2019 Urea nitrogen/Creatinine [Mass ratio] UTC Abnormal 07-29 [facility] Comment on above: Result Comment: Resu lt verified by Discern Rule. Performed result "UTC" (Unable to Calculate) was sent as an Alpha code due the inability to calculate a valid numeric value. Performed By: #### 3 [id number] #### [facility] [address] [place] [address] Anion gap [Moles/Vol] 11 mmol/L Normal 6-16 [facility] Comment on above: Performed By: #### 3 [id number] #### [facility] [address] [place] [address] Calcium [Mass/Vol] 7.8 mg/dL Low 8.9-11.1 [facility] Comment on above: Performed By: #### 3 [id number] #### [facility] [address] [place] [address] Chloride [Moles/Vol] 108 mmol/L Normal 101-111 [facility] Comment on above: Performed By: #### 3 [id number] #### [facility] [address] [place] [address] CO2 [Moles/Vol] 23 mmol/L Normal 21-31 [facility] Comment on above: Performed By: #### 3 [id number] #### [facility] [address] [place] [address] Creatinine [Mass/Vol] 0.7 mg/dL Normal 0.5-1.3 [facility] Comment on above: Performed By: #### 3 [id number] #### [facility] [address] [place] [address] Glucose [Mass/Vol] 96 mg/dL Normal 55-199 [facility] Comment on above: Result Comment: If t his glucose result represents a fasting glucose, interpretation should refer to the following reference range: 55-99 mg/dL Performed By: #### 3 [id number] #### [facility] [address] [place] [address] Potassium [Moles/Vol] 3.3 mmol/L Low 3.5-5.3 [facility] Comment on above: Performed By: #### 3 [id number] #### [facility] [address] [place] [address] Sodium [Moles/Vol] 139 mmol/L Normal 135-145 [facility] Comment on above: Performed By: #### 3 [id number] #### [facility] [address] [place] [address] Urea nitrogen [Mass/Vol] mg/dL Normal 5-21 [facility] Comment on above: Performed By: #### 3 [id number] #### [facility] [address] [place] [address] Hct & Hgbon 04-10-2019 Hematocrit (Bld) [Volume fraction] 36.2 % Normal 34.0-46.0 [facility] Comment on above: Performed By: #### 3 [id number] #### [facility] [address] [place] [address] Hemoglobin (Bld) [Mass/Vol] 11.9 g/dL Low 12.0-16.0 [facility] Comment on above: Performed By: #### 3 [id number] #### [facility] [address] [place] [address] Interdisciplinary Note - Olu e Manageron 01-17-2019 Interdisciplinary Note - Account Development Associate Rounding at this time with Dr. Hernandez, Becky [facility], Ivis CROW and Ariadna OCASIO. Patient is alert and participates in plan of care. No family present. Labs and diagnostics reviewed. Insurance information, PCP and DME verified. Contact information provided and whiteboard updated. CRM discussed therapy recommendation of HH [facility], #2- [facility]. Anticipated discharge home with 01/18 or 01/19/2019. Patient denies any further disharge needs/concerns at this time. CRM to follow. Normal [facility] Progress Note-Physicianon Progress Note-Physician Assessment/Plan 1. Abdominal pain - Due to underlying C diff infection. 2. C. difficile diarrhea - Leukocytosis improving. - Denies recent Abx usage - Oral Vancomycin 125mg po QID - No anti-diarrheals - CT A/P at outside hospital negative for colitis - GI consult reviewed. Patient with severe C. difficile. Continue oral ankle. Add Flagyl IV. If does not improve will consider flexible sigmoidoscopy to assess UC status. 3. Ulcerative colitis - Mesalamine 1000 mg 3 times a day. See above regarding flexible sigmoidoscopy. - Last flare-up a year ago (01/2018) 4. Dehydration - Continue IVF 5. Hypokalemia - Due to underlying GI losses from diarrhea. Replacement ordered. 6. Diverticulosis - Colonoscopy in 2017 showed diffuse diverticulosis Subjective Continues to not feel well. Weak. Still with significant diarrhea coming about every hour. Occasional blood in stool per nursing. Review of Systems Constitutional: no fever, no chills, + fatigue Skin: no rash Respiratory: no shortness of breath, no cough, no wheezing Cardiovascular: no chest pain, no palpitations, no edema Gastrointestinal: as above Musculoskeletal: no significant joint or muscle pain Neurologic: no headache, no dizziness Psych: no depression, no anxiety Objective Vitals & Measurements T: 37 ?C (Oral) TMIN: 36.5 ?C (Oral) TMAX: 37.1 ?C (Oral) HR: 80(Monitored) RR: 16 BP: 114/53 SpO2: 95% WT: 53.2 kg Intake & Output This visit (24 hour periods starting at 07:00 EDT) 01/17/19 * 01/16/19 01/15/19 Total Summary Intake mL 415 1,731 200 Output mL -- 1,050 550 Fluid Balance 415 681 -350 Intake (6) Oral Intake mL 200 -- -- Sodium Chloride 0.9% intravenous solution 1,000 mL mL -- 1,526 -- ciprofloxacin mL -- -- 200 metronidazole mL 200 200 -- potassium chloride mL 15 -- -- vancomycin mL -- 5 -- Total 415 1,731 200 Output (1) Urine Voided mL -- 1,050 550 Total -- 1,050 550 Counts (2) Stool Count 6 5 2 Urine Count 3 1 -- * This column has not completed the indicated time period. Physical Exam General: alert, appears ill ENMT: AT/NC, neck supple Skin: no rash Cardiovascular: regular rate and rhythm, S1S2, normal peripheral perfusion Respiratory: Lungs CTA, respirations non labored, equal breath sounds bilaterally, no w/r/r Abd: Soft, diffusely TTP, no peritoneal signs Extremities: no deformity, no trauma, no edema Neurological: oriented, LOC appropriate for age, no focal deficits, speech normal Psych: cooperative, flat affect Lab Results WBC: 11.5 E9/L High (01/17/19 05:50:00 EDT) Hgb: 11.9 gm/dL Low (01/17/19 05:50:00 EDT) Hct: 36.2 % (01/17/19 05:50:00 EDT) Glucose Lvl: 96 mg/dL (01/17/19 05:50:00 EDT) BUN: <5 (01/17/19 05:50:00 EDT) Creatinine: 0.7 mg/dL (01/17/19 05:50:00 EDT) eGFR: >60 (01/17/19 05:50:00 EDT) eGFR AA: >60 (01/17/19 05:50:00 EDT) BUN/Creat Ratio: Unable to Calculate Abnormal (01/17/19 05:50:00 EDT) Sodium Lvl: 139 mmol/L (01/17/19 05:50:00 EDT) Potassium Lvl: 3.3 mmol/L Low (01/17/19 05:50:00 EDT) Chloride: 108 mmol/L (01/17/19 05:50:00 EDT) CO2: 23 mmol/L (01/17/19 05:50:00 EDT) AGAP: 11 mEq/L (01/17/19 05:50:00 EDT) Calcium Lvl: 7.8 mg/dL Low (01/17/19 05:50:00 EDT) Problem List/Past Medical History Ongoing Clostridium difficile diarrhea Dehydration Hypokalemia Historical Acute arthritis Chest pain on exertion 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 Osteoarthritis Medications Inpatient acetaminophen 325 mg Tab, 650 mg= 2 tab(s), Oral, q6hr, PRN Asacol 500 mg Cap-ER, 1000 mg= 2 cap(s), Oral, TID FIRST-Vancomycin 50, 125 mg= 2.5 mL, PEG, q6hrFT hydrALAZINE 20 mg/mL Inj, 10 mg= 0.5 mL, IV Push, q6hr, PRN MetroNIDAZOLE 500 mg/100 mL IV Bekah, 500 mg= 100 mL, IV Piggyback, q8hrFT morphine 2 mg/mL Inj, 1 mg= 0.5 mL, IV Push, q4hr, PRN NS 1000 mL Soln-IV 1,000 mL, 1000 mL, IV Zofran 4 mg/2 mL Injection, 4 mg= 2 mL, IV Push, q6hr, PRN Home Lialda 1.[address] tab, 2.4 gram, Oral, Daily Lidoderm 5% Patch, 1 patch(es), TransDermal, Daily loratadine 10 mg oral capsule, 10 mg= 1 cap(s), Oral, Daily, PRN Tylenol Extra Strength 500 mg oral tablet, 500 mg= 1 tab(s), Oral, q4hr, PRN, Self Directed Normal [facility] Comment on above: Result Comment: Elec tronically Signed By: Mary MCCONNELL, Sahara\\.jose miguel\\Date and Time Signed: 01/17/19 17:23 EDT WBCon 01-17-2019 WBC corrected for nucl RBC Auto (Bld) [#/Vol] 11.5 E9/L High 4.0-11.0 [facility] Comment on above: Performed By: #### 3 [id number] #### [facility] [address] [place] [address] eGFRon 01-17-2019 GFR/1.73 sq M predicted among blacks MDRD (S/P/Bld) [Vol rate/Area] mL/min/{1.73_m2} Normal >=59 [facility] Comment on above: Order Comment: Order added by Discern Expert. Result Comment: eGFR is race adjusted. AA=. Performed By: #### 3 [id number] #### [facility] [address] [place] [address] GFR/1.73 sq M predicted among non-blacks MDRD (S/P/Bld) [Vol rate/Area] mL/min/{1.73_m2} Normal >=59 [facility] Comment on above: Order Comment: Order added by Discern Expert. Result Comment: Storage Brine Worker gregoria kidney disease could be indicated at eGFR's of less than 60 mL/min/1.73m2. Kidney failure is indicated at less than 15 mL/min/1.73m2. Performed By: #### 3 [id number] #### [facility] [address] [place] [address] Auto Diffon 01-16-2019 Basophils/100 WBC (Bld) 0.7 % Normal 0.0-2.0 [facility] Comment on above: Order Comment: Order Added by Discern Expert. Performed By: #### 3 [id number] #### [facility] [address] [place] [address] Basophils/Leukocytes Auto (Bld) [Pure # fraction] 0.1 E9/L Normal 0.0-0.2 [facility] Comment on above: Order Comment: Order Added by Discern Expert. Performed By: #### 3 [id number] #### [facility] [address] [place] [address] Eosinophils/100 WBC (Bld) 1.0 % Normal 0.0-8.0 [facility] Comment on above: Order Comment: Order Added by Discern Expert. Performed By: #### 3 [id number] #### [facility] [address] [place] [address] Eosinophils/Leukocytes Auto (Bld) [Pure # fraction] 0.2 E9/L Normal 0.0-0.5 [facility] Comment on above: Order Comment: Order Added by Discern Expert. Performed By: #### 3 [id number] #### [facility] [address] [place] [address] Lymphocytes/100 WBC (Bld) 8.2 % Low 14.0-50.0 [facility] Comment on above: Order Comment: Order Added by Discern Expert. Performed By: #### 3 [id number] #### [facility] [address] [place] [address] Lymphocytes/Leukocytes Auto (Bld) [Pure # fraction] 1.3 E9/L Normal 1.0-4.0 [facility] Comment on above: Order Comment: Order Added by Discern Expert. Performed By: #### 3 [id number] #### [facility] [address] [place] [address] Monocytes/100 WBC (Bld) 7.1 % Normal 4.0-14.0 [facility] Comment on above: Order Comment: Order Added by Discern Expert. Performed By: #### 3 [id number] #### [facility] [address] [place] [address] Monocytes/Leukocytes Auto (Bld) [Pure # fraction] 1.2 E9/L High 0.2-1.0 [facility] Comment on above: Order Comment: Order Added by Discern Expert. Performed By: #### 3 [id number] #### [facility] [address] [place] [address] Neutrophils/100 WBC (Bld) 83.0 % High 36.0-75.0 [facility] Comment on above: Order Comment: Order Added by Discern Expert. Performed By: #### 3 [id number] #### [facility] [address] [place] [address] Neutrophils/Leukocytes Auto (Bld) [Pure # fraction] 13.6 E9/L High 2.0-7.5 [facility] Comment on above: Order Comment: Order Added by Discern Expert. Performed By: #### 3 [id number] #### [facility] [address] [place] [address] BMPon 01-16-2019 Anion gap [Moles/Vol] 12 mmol/L Normal 6-16 [facility] Comment on above: Performed By: #### 1 [id number], 9272323, 91401469, 9348301, 4107573, 8713019, 6707961, 2598750, 3923040 #### [facility] [address] [place] [address] Calcium [Mass/Vol] 7.9 mg/dL Low 8.9-11.1 [facility] Comment on above: Performed By: #### 1 1582605, 9287316, 11555003, 2557852, 8002702, 3921273, 0752299, 7041834, 3497056 #### [facility] [address] [place] [address] Chloride [Moles/Vol] 105 mmol/L Normal 101-111 [facility] Comment on above: Performed By: #### 1 3280067, 8290685, 52547779, 0753568, 5038979, 4372732, 5547582, 0158198, 9112765 #### [facility] [address] [place] [address] CO2 [Moles/Vol] 23 mmol/L Normal 21-31 [facility] Comment on above: Performed By: #### 1 3121411, 0238431, 61821410, 7077083, 9984861, 7662400, 3584893, 7869097, 3878732 #### [facility] [address] [place] [address] Creatinine [Mass/Vol] 0.7 mg/dL Normal 0.5-1.3 [facility] Comment on above: Performed By: #### 1 9259803, 3857025, 30495852, 5316963, 4675923, 7774446, 7124137, 7069424, 3208358 #### [facility] [address] [place] [address] Glucose [Mass/Vol] 87 mg/dL Normal 55-199 [facility] Comment on above: Result Comment: If t his glucose result represents a fasting glucose, interpretation should refer to the following reference range: 55-99 mg/dL Performed By: #### 1 7069365, 6980073, 76795033, 7952468, 4085408, 7625276, 1819127, 0052782, 4948595 #### [facility] [address] [place] [address] Potassium [Moles/Vol] 3.6 mmol/L Normal 3.5-5.3 [facility] Comment on above: Performed By: #### 1 9107744, 5501399, 43767622, 9104137, 0152225, 8349491, 2980080, 1582800, 1809483 #### [facility] [address] [place] [address] Sodium [Moles/Vol] 136 mmol/L Normal 135-145 [facility] Comment on above: Performed By: #### 1 2954429, 5916375, 86053158, 9334140, 3424748, 8185228, 8061535, 0464929, 0272508 #### [facility] [address] [place] [address] Urea nitrogen [Mass/Vol] 7 mg/dL Normal 5-21 [facility] Comment on above: Performed By: #### 1 1059609, 9633406, 50567507, 9510872, 3443296, 2489592, 4356365, 1018797, 8368258 #### [facility] [address] [place] [address] Urea nitrogen/Creatinine [Mass ratio] 10 No Units Normal 10-20 [facility] Comment on above: Performed By: #### 1 4039680, 4482012, 06603803, 1343231, 5344037, 9486745, 3851231, 9213375, 0917747 #### [facility] [address] [place] [address] CBC w/ Auto Diffon 9 Erythrocyte distribution width (RBC) [Ratio] 14.0 % Normal 10.9-14.2 [facility] Comment on above: Performed By: #### 1 6331974, 8327918, 87805883, 4279702, 0000569, 5842241, 2394359, 7515186, 0698188 #### [facility] [address] [place] [address] Hematocrit (Bld) [Volume fraction] 38.1 % Normal 34.0-46.0 [facility] Comment on above: Performed By: #### 1 7762561, 9742655, 00429026, 3798482, 2461413, 0076924, 4765103, 5312294, 9373496 #### [facility] [address] [place] [address] Hemoglobin (Bld) [Mass/Vol] 12.7 g/dL Normal 12.0-16.0 [facility] Comment on above: Performed By: #### 1 5174665, 6373631, 01656883, 7728396, 8248795, 3075296, 8587093, 1675880, 4371259 #### [facility] [address] [place] [address] MCH (RBC) [Entitic mass] 29.9 pg Normal 27.0-34.0 [facility] Comment on above: Performed By: #### 1 0893697, 2958674, 91192658, 7787442, 2015523, 3236044, 5395202, 4267216, 3333907 #### [facility] [address] [place] [address] MCHC (RBC) [Mass/Vol] 33.3 g/dL Normal 33.3-35.7 [facility] Comment on above: Performed By: #### 1 9085417, 6127815, 13926687, 8901497, 9613610, 4192997, 6391431, 7501315, 3864276 #### [facility] [address] [place] [address] MCV (RBC) [Entitic vol] 89.9 fL Normal 80.0-100.0 [facility] Comment on above: Performed By: #### 1 4848291, 2322349, 73392293, 4091437, 8014134, 4742836, 0457279, 0515795, 4920455 #### [facility] [address] [place], [place] [address] Platelet mean volume (Bld) [Entitic vol] 9.0 fL Normal 6.4-10.8 [facility] Comment on above: Performed By: #### 1 6208005, 1822724, 77866889, 1781073, 0250589, 2747110, 8154592, 6137917, 6434181 #### [facility] [address] [place] [address] Platelets (Bld) [#/Vol] 236.0 E9/L Normal 150.0-500.0 [facility] Comment on above: Performed By: #### 1 7828176, 4207738, 80460745, 0265275, 1470150, 1486632, 6709685, 7310462, 5451900 #### [facility] [address] [place] [address] RBC (Bld) [#/Vol] 4.2 E12/L Low 4.3-5.9 [facility] Comment on above: Performed By: #### 1 6354163, 8776105, 42216735, 9051517, 1096984, 9945457, 4101219, 8079606, 3287692 #### [facility] [address] [place] [address] WBC corrected for nucl RBC Auto (Bld) [#/Vol] 16.4 E9/L High 4.0-11.0 [facility] Comment on above: Result Comment: Slid e reviewed by DEBBIE. Performed By: #### 1 6836215, 1015125, 44380338, 0812133, 2724591, 8700583, 2065407, 5477009, 3894947 #### [facility] [address] [place] [address] CRPon 01-16-2019 CRP [Mass/Vol] 5.0 mg/dL High <=1.9 [facility] Comment on above: Performed By: #### 1 1981741, 0502683, 72244362, 7912038, 7544098, 8777464, 3027502, 1391318, 8157397 #### [facility] [address] [place] [address] Consultation Noteon 01-17-20 Consultation Note Patient: SHIRA MERRITT Age: 78 years Sex: Female : 1940 Associated Diagnoses: None Author: Dedrick Waters MD Basic Information Admit information: Acute bloody diarrhea . Source of history: Medical record, Patient. History limitation: None. 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 Last flex-sig 01/2018 showed small size external hemorrhoids, colon diverticulosis and severe left-sided colitis. She was transferred from [facility] because of left lower quadrant abdominal pain started 2 weeks ago, cramping/stabbing, w/o radiation, associated with watery bloody diarrhea 8 ? 10 BMs daily, the pain is 7/10 in severity, constant, associated with nausea. No modifyning factors. She had 6 BMs today and her pain is still the same. She was seen 3 times in the emergency room in the past couple weeks, she was given prednisone in the 1st visit for 5 days which did not help. She had negative CT A/P according to the H&P. Her stool test is positive for C diff. She was started on oral vancomycin. Review of Systems As in the HPI otherwise negative or noncontributory Health Status Allergies: Allergic Reactions (All) Severity Not Documented Augmentin- Unknown. Codeine Sulfate- Altered mental status. Darvocet A500- No reactions were documented. Darvon- No reactions were documented. Morphine- Restlessness. Sulfamethoxazole- No reactions were documented. Tape- No reactions were documented. Tetanus immune globulin- Rash. Vicodin- Altered mental status. Nonallergic Reactions (All) Severity Not Documented Valium- Altered mental status., Allergies (10) Active Reaction Augmentin Unknown Codeine Sulfate Altered mental status Darvocet A500 None Documented Darvon None Documented morphine Restlessness sulfamethoxazole None Documented Tape None Documented tetanus immune globulin Rash Valium Altered mental status Vicodin Altered mental status Current medications: (Selected) Inpatient Medications Ordered FIRST-Vancomycin 50: 125 mg = 2.5 mL, Susp-Oral, PEG, q6hrFT for 10 day(s), Stop date 01/26/19 7:44:00 EDT, NOW, Start date 01/16/19 7:45:00 EDT NS 1000 mL Soln-IV 1,000 mL: 1,000 mL, IV, 75 mL/hr, Routine, Start date 01/16/19 0:16:00 EDT, 13.3 hour(s), Total volume (mL): 1,000 Zofran 4 mg/2 mL Injection: 4 mg = 2 mL, Injection, IV Push, q6hr PRN Nausea, Routine, Start date 01/16/19 0:16:00 EDT acetaminophen 325 mg Tab: 650 mg = 2 tab(s), Tab, Oral, q6hr PRN Pain, Routine, Start date 01/16/19 0:16:00 EDT hydrALAZINE 20 mg/mL Inj: 10 mg = 0.5 mL, Injection, IV Push, q6hr PRN Other (see comment), Routine, Start date 01/16/19 0:16:00 EDT morphine 2 mg/mL Inj: 1 mg = 0.5 mL, Injection, IV Push, q4hr PRN Pain for 5 day(s), Stop date 01/21/19 0:15:00 EDT, Routine, Start date 01/16/19 0:16:00 EDT Documented Medications Documented Lialda 1.[address] tab: 2.4 gram, Oral, Daily Lidoderm 5% Patch: 1 patch(es), TransDermal, Daily, Refill(s) 0, PRN for back pain Tylenol Extra Strength 500 mg oral tablet: 500 mg = 1 tab(s), Oral, q4hr, PRN Pain/Fever, Refills(s) 0 loratadine 10 mg oral capsule: 10 mg = 1 cap(s), Oral, Daily, PRN Allergy symptoms, Refills(s) 0, Allergy symptoms Problem list: All Problems At risk for falls / SNOMED CT 790529890 / Possible Problem added when Risk for Falls Careplan was initiated. Clostridium difficile diarrhea / SNOMED CT 7389640867 / Confirmed Problem added secondary to positive C-Diff lab result. Resolved: Acute arthritis / SNOMED CT 92034800 Resolved: Chest pain on exertion / SNOMED CT 255298022 Resolved: 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 / ICD-9-CM 556.4 Resolved: Osteoarthritis / ICD-9-CM 715.90 Canceled: None / SNOMED CT 279505546 Histories Past Medical History: Resolved Osteoarthritis (715.90): Resolved. 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 (556.4): Resolved. Acute arthritis (95051566): Resolved. Chest pain on exertion (453766199): Resolved on 01/18/2017 at 76 years. Family History: Hypertension Mother Procedure history: Colonoscopy. colon resection. colon resection 11/25/2012. Cholecystectomy (48478824). Appendectomy (887714425). Social History Social & Psychosocial Habits Alcohol 02/17/2011 Risk Assessment: Denies Alcohol Use Exercise 02/17/2011 Risk Assessment: Occasional exercise Home/Environment 01/16/2019 Lives with: Alone Living situation: Home/Independent Alcohol abuse in household: No Substance abuse in household: No Smoker in household: No Substance Abuse 02/17/2011 Risk Assessment: Denies Substance Abuse 01/16/2019 IV drug use: No Comment: The patient denies any substance abuse, current/past tobacco use, or alcohol use. - 01/16/2019 00:17 - Maryuri Nguyễn RN Tobacco 02/17/2011 Risk Assessment: Denies Tobacco Use . Physical Examination Vital Signs 01/16/2019 07:00 EDT Temperature Oral 37 DegC Heart Rate Monitored 74 bpm Respiratory Rate 18 br/min Systolic Blood Pressure 114 mmHg Diastolic Blood Pressure 71 mmHg Blood Pressure Location Left arm Mean Arterial Pressure, Cuff 85 mmHg Hourly Rounding Yes (Modified) Promise to Return Yes SpO2 95 % 01/16/2019 06:00 EDT Hourly Rounding Yes Promise to Return Yes 01/16/2019 05:00 EDT Hourly Rounding Yes Promise to Return Yes 01/16/2019 04:46 EDT Temperature Oral 37.6 DegC HI Heart Rate Monitored 75 bpm Respiratory Rate 16 br/min Systolic Blood Pressure 117 mmHg Diastolic Blood Pressure 63 mmHg Blood Pressure Location Left arm Mean Arterial Pressure, Cuff 81 mmHg SpO2 96 % 01/16/2019 04:00 EDT Hourly Rounding Yes Promise to Return Yes 01/16/2019 03:00 EDT Hourly Rounding Yes Promise to Return Yes 01/16/2019 02:30 EDT Hourly Rounding Yes 01/16/2019 02:00 EDT Promise to Return Yes 01/16/2019 01:18 EDT Temperature Oral 37 DegC Apical Heart Rate 84 bpm Respiratory Rate 16 br/min Systolic Blood Pressure 124 mmHg Diastolic Blood Pressure 68 mmHg Blood Pressure Location Left arm Mean Arterial Pressure, Cuff 87 mmHg SpO2 96 % 01/16/2019 00:25 EDT Temperature Oral 37.2 DegC Peripheral Pulse Rate 77 bpm Respiratory Rate 18 br/min Systolic Blood Pressure 117 mmHg Diastolic Blood Pressure 67 mmHg Blood Pressure Location Right arm SpO2 98 % 01/16/2019 00:00 EDT Hourly Rounding Yes Promise to Return Yes Vital Signs (last 24 hrs) Last Charted Temp Oral 37 DegC (JAN 16 07:00) Heart Rate Apical 84 bpm (JAN 16 01:18) Heart Rate Peripheral 77 bpm (JAN 16 00:25) Resp Rate 18 br/min (JAN 16 07:00) SBP 114 mmHg (JAN 16:00) DBP 71 mmHg (JAN 16:00) SpO2 95 % (JAN 16:) Height 163 cm (JAN 16:25) Weight 54.6 kg (JAN 16 06:00) BMI 20.55 kg/m2 (JAN 16 00:25) Measurements from flowsheet : Measurements 01/16/2019 06:00 EDT Weight Measured 54.6 kg 01/16/2019 05:10 EDT Weight Measured 54.7 kg 01/16/2019 00:25 EDT Height/Length Measured 163 cm [place] Body Weight Calculated 55.098 kg BSA Measured 1.57 m2 Body Mass Index Measured 20.55 kg/m2 Weight Measured 54.6 kg 01/15/2019 23:52 EDT Usual Weight 57 kg General: Alert and oriented, No acute distress. Eye: Pupils are equal, round and reactive to light, Extraocular movements are intact. HENT: Normocephalic, Normal hearing. Neck: Supple, Non-tender. Respiratory: Lungs are clear to auscultation, Respirations are non-labored, Symmetrical chest wall expansion, No chest wall tenderness. Cardiovascular: Normal rate, Regular rhythm, No murmur. Gastrointestinal: Soft, Non-tender, Normal bowel sounds, LLQ mild tenderness w/o guarding or rebound . Musculoskeletal Normal range of motion. Normal strength. Integumentary: Warm, [place]. Neurologic: Alert, Oriented, No focal deficits. Cognition and Speech: Oriented, Speech clear and coherent. Psychiatric: Cooperative, Appropriate mood & affect. Review / Management Results review: Lab results 01/16/2019 06:21 EDT WBC 16.4 E9/L HI RBC 4.2 E12/L LOW Hgb 12.7 gm/dL Hct 38.1 % MCV 89.9 fL MCH 29.9 pg MCHC 33.3 gm/dL RDW 14.0 % Platelet 236.0 E9/L MPV 9.0 fL Neutro Auto 83.0 % HI Lymph Auto 8.2 % LOW [place] Auto 7.1 % Eos Auto 1.0 % Basophil Auto 0.7 % Neutro Absolute 13.6 E9/L HI Lymph Absolute 1.3 E9/L [place] Absolute 1.2 E9/L HI Eos Absolute 0.2 E9/L Basophil Absolute 0.1 E9/L Sed Rate Automated 28 mm/hr Glucose Lvl 87 mg/dL BUN 7 mg/dL Creatinine 0.7 mg/dL eGFR >60 mL/min/1.73 m2 eGFR AA >60 mL/min/1.73 m2 BUN/Creat Ratio 10 Sodium Lvl 136 mmol/L Potassium Lvl 3.6 mmol/L Chloride 105 mmol/L CO2 23 mmol/L AGAP 12 mEq/L Calcium Lvl 7.9 mg/dL LOW Alk Phos 78 Int._Unit/L ALT 9 Int._Unit/L AST 11 Int._Unit/L Total Protein 5.8 gm/dL LOW Albumin Lvl 2.9 gm/dL LOW Globulin 2.9 gm/dL A/G Ratio 1.0 LOW Bili Total 1.2 mg/dL HI Bili Direct 0.1 mg/dL Bili Indirect 1.1 mg/dL HI Lipase Lvl 25 unit/L Magnesium 2.1 mg/dL CRP 5.0 mg/dL HI 01/16/2019 01:31 EDT Fecal WBC Lactoferrin Positive . 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 Last flex-sig 01/2018 showed small size external hemorrhoids, colon diverticulosis and severe left-sided colitis. Severe C diff: (elevated WBC and low albumin) w/ acute bloody diarrhea: in setting of UC, hemorrhoids and diverticulosis, stool positive for C diff. Negative abdominal CT per H&P. Left sided UC: continue 5-ASA for now -- IV fluids -- Cpontinue Vancomycin PO -- Add Flagyl 500 mg IV q 8 hours -- Start Meselamine 1000 mg TID -- If she does not improve then will consider Flex-Sig to assess UC status before escalating UC treatment Thank you for the consult, please do not hesitate to call with any questions Normal [facility] Comment on above: Result Comment: Elec tronically Signed By: Michel Shay MD, Dedrick\\.jose miguel\\Date and Time Signed: 01/16/19 20:41 EDT Fecal WBC Lactoferrinon Fecal WBC Lactoferrin Positive Abnormal Negative Fis [facility] Comment on above: Result Comment: The semi-quantitative detection of elevated levels of fecal lactoferrin is a marker for fecal leukocytes and an indication of intestinal inflammation. Performed By: #### 3 [id number] #### [facility] [address] [place] [address] Hep Func Panelon 01-16-2019 Albumin [Mass/Vol] 2.9 g/dL Low 3.3-5.0 [facility] Comment on above: Performed By: #### 1 [id number] [id number], [id number], 3350490, 9383195, 9002362, 7661232, 4819602, 1276389 #### [facility] [address] [place] [address] Albumin [Mass/Vol] 1.0 g/dL Low 1.1-2.2 [facility] Comment on above: Performed By: #### 1 [id number], 2022813, 50603836, 6104731, 1732691, 1839706, 6666511, 1726974, 1773577 #### [facility] [address] [place] [address] ALP [Catalytic activity/Vol] 78 Int._Unit/L Normal 21-98 [facility] Comment on above: Performed By: #### 1 [id number], 3619444, 09924987, 2985948, 3494600, 8778693, 4231196, 0326662, 5813422 #### [facility] [address] [place] [address] ALT No additional P-5'-P [Catalytic activity/Vol] 9 Int._Unit/L Normal 6-46 [facility] Comment on above: Performed By: #### 1 [id number], 4402796, 09816270, 8381000, 4604392, 0410780, 6397211, 8157433, 2442824 #### [facility] [address] [place] [address] AST [Catalytic activity/Vol] 11 Int._Unit/L Normal 5-43 [facility] Comment on above: Performed By: #### 1 [id number], 2032836, 09354920, 3673068, 0386545, 9954229, 1093827, 3031671, 0773666 #### [facility] [address] [place] [address] Bilirubin [Mass/Vol] 1.2 mg/dL High 0.0-1.1 [facility] Comment on above: Performed By: #### 1 [id number], 3714173, 13287888, 5042702, 6617412, 7865222, 7110252, 3257746, 9696854 #### [facility] [address] [place] [address] Bilirubin.direct [Mass/Vol] 0.1 mg/dL Normal 0.1-0.4 [facility] Comment on above: Performed By: #### 1 [id number], 1009814, 11865377, 0299454, 0925703, 9304650, 9724671, 0549092, 3692556 #### [facility] [address] [place] [address] Bilirubin.direct [Mass/Vol] 1.1 mg/dL High 0.1-0.9 [facility] Comment on above: Performed By: #### 1 6223057, 0681619, 51695007, 2728782, 4452736, 2119518, 8212537, 2009761, 3300083 #### [facility] [address] [place] [address] Globulin (S) [Mass/Vol] 2.9 g/dL Normal 1.4-4.0 [facility] Comment on above: Performed By: #### 1 [id number], 2661050, 27916732, 3835229, 1385857, 8042195, 4836976, 7404215, 2864306 #### [facility] [address] [place] [address] Protein [Mass/Vol] 5.8 g/dL Low 6.0-7.8 [facility] Comment on above: Performed By: #### 1 [id number], 9341945, 59553738, 1516969, 2503175, 8190077, 4817132, 0970052, 9080975 #### [facility] [address] [place] [address] History and Physicalon 01-16 History and Physical Chief Complaint The patient was transferred to from [facility] this evening.She reports LLQ abdominal pain which began suddenly about two weeks ago. She also reports frequent watery diarrhea with bright red blood which has persisted for 2 weeks. History of Present Illness 78-year-old female with past medical history of ulcerative colitis presented to ED with left lower abdominal pain. LLL abd pain. Started 2 weeks ago. Sharp pain, 7/10, constant, associated with nausea and diarrhea (8-10 BMs everyday). Blood in stool for 2 weeks (like previosu episode). Pain not getting worse or better. No relaiton to food. pt able to tolerate food. Denied recent travels. Denied recent antibiotics. Feels like previosu UC flare up episodes. Last flare up in 01/2019, went under flex sigmoigosocpy which showed colitis. Pt went to [facility] ED 3x in 2 weeks and was prescribed prednisone on first visit for 5 days which didn't help. WBCs today 17.9. CT abd -ve. Hx of appendectomy and cholecystectomy. Denied fever/chills. Review of Systems Constitutional: no fever, no chills, no sweats Respiratory: no shortness of breath, no cough, no orthopnea, no wheezing Cardiovascular: no chest pain, no palpitations, no dizziness, no edema GI: per HPI Neuro/Behv: no LOC, no tremors, no convulsions, no weakness/paralysis, no sleeping problems MSK: no stiffness Skin: no rash Additional ROS info: Except as noted in the above Review of Systems and in the History of Present Illness all other systems have been reviewed and are negative or noncontributory. Physical Exam Vitals & Measurements T: 37.2 ?C (Oral) HR: 77(Peripheral) RR: 18 BP: 117/67 SpO2: 98% WT: 54.6 kg General: alert, NAD HEENT: eyes show no evidence of icterus Neck: supple with no neck vein distension Cardiovascular: regular rate and rhythm, no S3/S4 Respiratory: Lungs CTABL, respirations non labored Abdomen: soft, hyperactive bowel sounds, no organomegaly, no guarding, no rigidity, LLL tenderness on moderate palpation Psych: mood stable, cooperative Extremities: no peripheral edema, normal peripheral perfusion, no trauma, pulses present and symmetrical Skin: Warm and dry with good turgor Neurological: oriented*3, motor strength equal & normal bilaterally, speech normal Lab Results No qualifying data available. Images No qualifying data available. Assessment/Plan 78-year-old female with past medical history of ulcerative colitis presented to ED with left lower abdominal pain. 1. Abdominal pain - LLL abd pain, 7/10, constant, associated with nausea and diarrhea (8-10 BMs everyday), blood in stool. Symptoms for 2 weeks. not getting worse or better - hx of US. last flare-up a yr ago (01/2018). this feels like UC flare up to the pt. 3 ED visits in 2 weeks, received prednisone for 5 days on first ED visit - hx of cholecystectomy and appendectomy- no recent use of ABbx - nephrolithiasis not high on differential - BMP/LFTs ok at OSH. WBCs 17.9 - CT abd/pelvis at OSH normal w/o colitis, abscess - UC flare up? - ischemic colitis? - infectious etiology? - check esr/crp - check lipase - NPO. NS at 75cc/hr - stool culture, c.diff, fecal WBCs - GI consult - given abd pain, blood in stools, diarrhea -> start cipro and flagyl - pain control with morphine 1mg IV q4h prn - nausea control with zofran 2. Ulcerative colitis - on mesalamine 3. Diverticulosis - colonoscopy in 2017 shwoed diffuse diverticulosis Diet: NPO. NS at 75cc/hr Code: Full code DVT prophylaxis: subQ heparin Dispo: inpt; anticipated hosp stay >2 midnights Orders: acetaminophen, 650 mg = 2 tab(s), Tab, Oral, q6hr PRN Pain, Routine, Start date 01/16/19 0:16:00 EDT heparin, 5,000 unit(s) = 1 mL, Injection, SubCutaneous, BID for 10 day(s), Stop date 01/26/19 8:59:00 EDT, Routine, Start date 01/16/19 9:00:00 EDT hydrALAZINE, 10 mg = 0.5 mL, Injection, IV Push, q6hr PRN Other (see comment), Routine, Start date 01/16/19 0:16:00 EDT morphine, 1 mg = 0.5 mL, Injection, IV Push, q4hr PRN Pain for 5 day(s), Stop date 01/21/19 0:15:00 EDT, Routine, Start date 01/16/19 0:16:00 EDT ondansetron, 4 mg = 2 mL, Injection, IV Push, q6hr PRN Nausea, Routine, Start date 01/16/19 0:16:00 EDT Sodium Chloride 0.9% intravenous solution, Soln-IV, Misc, Once, Stop date 01/16/19 0:36:49 EDT, Physician Stop, 01/16/19 0:36:49 EDT Sodium Chloride 0.9% intravenous solution 1,000 mL, 1,000 mL, IV, 75 mL/hr, Routine, Start date 01/16/19 0:16:00 EDT, 13.3 hour(s), Total volume (mL): 1,000 Ambulate with Assistance Basic Metabolic Panel C-Reactive Protein CBC w/ Auto Diff Clostridium difficile by PCR Consult to Gastroenterology Fecal WBC Lactoferrin Intake and Output Lipase Level Notify Provider Vital Signs Notify Provider Vital Signs Physical Therapy Evaluate Patient, Develop a Plan of Care and Implement Plan Place in Status Precautions Pulse Oximetry Regular Diet Resuscitation Status - Full Sedimentation Rate Automated Stool Culture Vital Signs Weight Problem List/Past Medical History Ongoing No qualifying data Historical Acute arthritis Chest pain on exertion 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 Medications Inpatient acetaminophen 325 mg Tab, 650 mg= 2 tab(s), Oral, q6hr, PRN Cipro 400 mg/200 mL IVPB, 400 mg= 200 mL, IV Piggyback, BID Flagyl 500 mg Tab, 500 mg= 1 tab(s), Oral, q8hr heparin 5000 units/mL Inj, 5000 unit(s)= 1 mL, SubCutaneous, BID hydrALAZINE 20 mg/mL Inj, 10 mg= 0.5 mL, IV Push, q6hr, PRN morphine 2 mg/mL Inj, 1 mg= 0.5 mL, IV Push, q4hr, PRN NS 1000 mL Soln-IV 1,000 mL, 1000 mL, IV Zofran 4 mg/2 mL Injection, 4 mg= 2 mL, IV Push, q6hr, PRN Home Lialda 1.[address] tab, 2.4 gram, Oral, Daily Lidoderm 5% Patch, 1 patch(es), TransDermal, Daily loratadine 10 mg oral capsule, 10 mg= 1 cap(s), Oral, Daily, PRN Tylenol Extra Strength 500 mg oral tablet, 500 mg= 1 tab(s), Oral, q4hr, PRN, Self Directed Allergies Augmentin (Unknown) Codeine Sulfate (Altered mental status) Darvocet A500 Darvon Tape Valium (Altered mental status) Vicodin (Altered mental status) morphine (Restlessness) sulfamethoxazole tetanus immune globulin (Rash) Social History Alcohol - Denies Alcohol Use, 02/17/2011 Exercise - Occasional exercise, 02/17/2011 Home/Environment Lives with Alone. Living situation: Home/Independent. Alcohol abuse in household: No. Substance abuse in household: No. Smoker in household: No., 01/16/2019 Substance Abuse - Denies Substance Abuse, 02/17/2011 IV drug use: No., 01/16/2019 Tobacco - Denies Tobacco Use, 02/17/2011 Family History Hypertension: Mother. [facility] Comment on above: Result Comment: Elec tronically Signed By: Jo MCCONNELL, Jesus Nguyen\\.br\\Date and Time Signed: 01/16/19 00:50 EDT Interdisciplinary Note - Olu e Manageron 01-16-2019 Interdisciplinary Note - Account Development Associate Rounding at this time with Dr. Hernandez, Becky [facility], Ivis CROW and Lynn OCASIO. Patient is alert and participates in plan of care. No family present. Patient c-diff positive. Labs and diagnostics reviewed. Insurance informantion, PCP and DME verified. Medicare Rights Form discussed with and signed by patient; original given to patient. Contact information provided and whiteboard updated. GI to see. Anticipated discharge 01/17 or 01/18/2019. Patient denies any further discharge needs/concerns at this time. CRM to follow. [facility] Interdisciplinary Note - PTo n 01-16-2019 Interdisciplinary Note - PT PT evaluation completed this date. The pt scores a on the AM-PAC, recommending d/c home with home health once medically stable. The pt fatigues quickly with functional mobility. The pt completes all transfers w/ SBA and ambulates 40' w/ standard walker SBA. PT to see daily. [facility] Lipase Levelon 01-16-2019 Lipase [Catalytic activity/Vol] 25 unit/L Normal 13-58 [facility] Comment on above: Performed By: #### 1 [id number], 1632388, [id number], 7687754, 6907062, 8907122, 3613911, 1401688, 7531538 #### [facility] [address] [place] [address] Magnesiumon 01-16-2019 Magnesium [Mass/Vol] 2.1 mg/dL Normal 1.3-2.4 Fish er [facility] Comment on above: Performed By: #### 1 [id number], 6762316, 01330927, 8510393, 9365491, 4874510, 7246467, 8676158, 2622491 #### [facility] [address] [place] [address] Progress Note-Physicianon Progress Note-Physician Assessment/Plan 1. Abdominal pain - Due to underlying C diff infection. 2. C. difficile diarrhea - Denies recent Abx usage - Flagyl changed to oral Vencomycine 125mg po QID - No anti-diarrheals - CT A/P at outside hospital negative for colitis - GI consulted 3. Ulcerative colitis - Last flare-up a year ago (01/2018) - On Mesalamine 4. Dehydration - NS at 75/hr 5. Diverticulosis - Colonoscopy in 2017 showed diffuse diverticulosis No charge as billed earlier in day for H&P by partner Subjective Does not feel well. Very weak. Still with bloody diarrhea. LLQ abdominal cramping. No vomiting. Objective Vitals & Measurements T: 37 ?C (Oral) TMIN: 37 ?C (Oral) TMAX: 37.6 ?C (Oral) HR: 72(Monitored) RR: 16 BP: 115/78 SpO2: 96% WT: 54.6 kg Intake & Output This visit (24 hour periods starting at 07:00 EDT) 01/16/19 * 01/15/19 01/14/19 Total Summary Intake mL -- 200 -- Output mL 250 550 -- Fluid Balance -250 -350 -- Intake (2) Oral Intake mL -- -- -- ciprofloxacin mL -- 200 -- Total -- 200 -- Output (1) Urine Voided mL 250 550 -- Total 250 550 -- Counts (1) Stool Count 2 2 -- * This column has not completed the indicated time period. Physical Exam General: alert, appears ill ENMT: AT/NC, neck supple Skin: no rash Cardiovascular: regular rate and rhythm, S1S2, normal peripheral perfusion Respiratory: Lungs CTA, respirations non labored, equal breath sounds bilaterally, no w/r/r Abd: Soft, TTP in LLQ Extremities: no deformity, no trauma, no edema Neurological: oriented, LOC appropriate for age, no focal deficits, speech normal Psych: cooperative Lab Results WBC: 16.4 E9/L High (01/16/19 06:21:00 EDT) RBC: 4.2 E12/L Low (01/16/19 06:21:00 EDT) Hgb: 12.7 gm/dL (01/16/19 06:21:00 EDT) Hct: 38.1 % (01/16/19 06:21:00 EDT) MCV: 89.9 fL (01/16/19 06:21:00 EDT) MCH: 29.9 pg (01/16/19 06:21:00 EDT) MCHC: 33.3 gm/dL (01/16/19 06:21:00 EDT) RDW: 14 % (01/16/19 06:21:00 EDT) Platelet: 236 E9/L (01/16/19 06:21:00 EDT) MPV: 9 fL (01/16/19 06:21:00 EDT) Neutro Auto: 83 % High (01/16/19 06:21:00 EDT) Lymph Auto: 8.2 % Low (01/16/19 06:21:00 EDT) [place] Auto: 7.1 % (01/16/19 06:21:00 EDT) Eos Auto: 1 % (01/16/19 06:21:00 EDT) Basophil Auto: 0.7 % (01/16/19 06:21:00 EDT) Neutro Absolute: 13.6 E9/L High (01/16/19 06:21:00 EDT) Lymph Absolute: 1.3 E9/L (01/16/19 06:21:00 EDT) [place] Absolute: 1.2 E9/L High (01/16/19 06:21:00 EDT) Eos Absolute: 0.2 E9/L (01/16/19 06:21:00 EDT) Basophil Absolute: 0.1 E9/L (01/16/19 06:21:00 EDT) Sed Rate Automated: 28 mm/hr (01/16/19 06:21:00 EDT) Glucose Lvl: 87 mg/dL (01/16/19 06:21:00 EDT) BUN: 7 mg/dL (01/16/19 06:21:00 EDT) Creatinine: 0.7 mg/dL (01/16/19 06:21:00 EDT) eGFR: >60 (01/16/19 06:21:00 EDT) eGFR AA: >60 (01/16/19 06:21:00 EDT) BUN/Creat Ratio: 10 (01/16/19 06:21:00 EDT) Sodium Lvl: 136 mmol/L (01/16/19 06:21:00 EDT) Potassium Lvl: 3.6 mmol/L (01/16/19 06:21:00 EDT) Chloride: 105 mmol/L (01/16/19 06:21:00 EDT) CO2: 23 mmol/L (01/16/19 06:21:00 EDT) AGAP: 12 mEq/L (01/16/19 06:21:00 EDT) Calcium Lvl: 7.9 mg/dL Low (01/16/19 06:21:00 EDT) Alk Phos: 78 Int._Unit/L (01/16/19 06:21:00 EDT) ALT: 9 Int._Unit/L (01/16/19 06:21:00 EDT) AST: 11 Int._Unit/L (01/16/19 06:21:00 EDT) Total Protein: 5.8 gm/dL Low (01/16/19 06:21:00 EDT) Albumin Lvl: 2.9 gm/dL Low (01/16/19 06:21:00 EDT) Globulin: 2.9 gm/dL (01/16/19 06:21:00 EDT) A/G Ratio: 1 Low (01/16/19 06:21:00 EDT) Bili Total: 1.2 mg/dL High (01/16/19 06:21:00 EDT) Bili Direct: 0.1 mg/dL (01/16/19 06:21:00 EDT) Bili Indirect: 1.1 mg/dL High (01/16/19 06:21:00 EDT) Lipase Lvl: 25 unit/L (01/16/19 06:21:00 EDT) Magnesium: 2.1 mg/dL (01/16/19 06:21:00 EDT) CRP: 5 mg/dL High (01/16/19 06:21:00 EDT) Fecal WBC Lactoferrin: Positive1 Abnormal (01/16/19 01:31:00 EDT) Clostridium difficile by PCR: Positive1 Critical (01/16/19 01:31:00 EDT) Problem List/Past Medical History Ongoing Clostridium difficile diarrhea Dehydration Historical Acute arthritis Chest pain on exertion 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 Osteoarthritis Medications Inpatient acetaminophen 325 mg Tab, 650 mg= 2 tab(s), Oral, q6hr, PRN FIRST-Vancomycin 50, 125 mg= 2.5 mL, PEG, q6hrFT hydrALAZINE 20 mg/mL Inj, 10 mg= 0.5 mL, IV Push, q6hr, PRN morphine 2 mg/mL Inj, 1 mg= 0.5 mL, IV Push, q4hr, PRN NS 1000 mL Soln-IV 1,000 mL, 1000 mL, IV Zofran 4 mg/2 mL Injection, 4 mg= 2 mL, IV Push, q6hr, PRN Home Lialda 1.[address] tab, 2.4 gram, Oral, Daily Lidoderm 5% Patch, 1 patch(es), TransDermal, Daily loratadine 10 mg oral capsule, 10 mg= 1 cap(s), Oral, Daily, PRN Tylenol Extra Strength 500 mg oral tablet, 500 mg= 1 tab(s), Oral, q4hr, PRN, Self Directed Normal [facility] Comment on above: Result Comment: Elec tronically Signed By: Mary MCCONNELL, [facility]\\.br\\Date and Time Signed: 01/16/19 15:41 EDT Sed Rate Automatedon 019 ESR (Bld) [Velocity] 28 mm/h Normal 0-34 [facility] Comment on above: Performed By: #### 1 [id number], [id number] #### [facility] [address] [place] [address] eGFRon 01-16-2019 GFR/1.73 sq M predicted among blacks MDRD (S/P/Bld) [Vol rate/Area] mL/min/{1.73_m2} Normal >=59 [facility] Comment on above: Order Comment: Order added by Discern Expert. Result Comment: eGFR is race adjusted. AA=. Performed By: #### 1 [id number] #### [facility] [address] [place] [address] GFR/1.73 sq M predicted among non-blacks MDRD (S/P/Bld) [Vol rate/Area] mL/min/{1.73_m2} Normal >=59 [facility] Comment on above: Order Comment: Order added by Discern Expert. Result Comment: Storage Brine Worker gregoria kidney disease could be indicated at eGFR's of less than 60 mL/min/1.73m2. Kidney failure is indicated at less than 15 mL/min/1.73m2. Performed By: #### 1 [id number], [id number] #### [facility] [address] [place] [address] Laboratory - Microbiology an d Antimicrobial susceptibility Bacteria identified Cx Nom (Bld) No growth in 5 days. [facility] Work Phone: Vital Signs Date Time Vital Sign Value Performing Clinician Luis Angel huang 03-26-2025 14:15-0400 Diastolic blood pressure 83 mm[Hg] Sahara Amaral MANAGER CASH.IN STORE REPRESENTATIVE Work Phone: [facility] 03-26-2025 14:15-0400 Heart rate 67 /min Sahara Amaral MANAGER CASH.IN STORE REPRESENTATIVE Work Phone: [facility] 03-26-2025 14:15-0400 Systolic blood pressure 163 mm[Hg] Sahara Amaral MANAGER CASH.IN STORE REPRESENTATIVE Work Phone: [facility] 03-26-2025 13:21-0400 Respiratory rate 16 /min Sahara Amaral MANAGER CASH.IN STORE REPRESENTATIVE Work Phone: [facility] 03-26-2025 13:21-0400 SaO2% (BldA) [Mass fraction] 97 % Sahara Amaral MANAGER CASH.IN STORE REPRESENTATIVE Work Phone: [facility] 02-19-2025 11:13-0400 Body mass index (BMI) [Ratio] 18.8 kg/m2 Varinder Phoenix MANUFACTURING ACCOUNTANT-C Work Phone: 9(504)381-262996 [place] [address] 02-19-2025 10:29-0400 Body temperature 97.9 [degF] Varinder Phoenix MANUFACTURING ACCOUNTANT-C Work Phone: 1(575)680-811796 [place] [address] 02-19-2025 10:29-0400 Diastolic blood pressure 65 mm[Hg] Varinder Phoenix MANUFACTURING ACCOUNTANT-C Work Phone: 3(036)573-373096 [place] [address] 02-19-2025 10:29-0400 Heart rate 62 /min Varinder Phoenix MANUFACTURING ACCOUNTANT-C Work Phone: 0(172)610-104896 [place] [address] 02-19-2025 10:29-0400 Respiratory rate 18 /min Varinder Phoenix MANUFACTURING ACCOUNTANT-C Work Phone: 7(486)363-789496 [place] [address] 02-19-2025 10:29-0400 SaO2% (BldA) [Mass fraction] 96 % Varinder Phoenix MANUFACTURING ACCOUNTANT-C Work Phone: 2(922)476-140596 [place] [address] 02-19-2025 10:29-0400 Systolic blood pressure 129 mm[Hg] Varinder Phoenix MANUFACTURING ACCOUNTANT-C Work Phone: 0(817)325-534696 [place] [address] 02-18-2025 09:43-0400 Body height 162.56 cm Varinder Phoenix MANUFACTURING ACCOUNTANT-C Work Phone: 3(772)197-725596 [place] [address] 02-18-2025 09:43-0400 Body weight 49.95 kg Varinder Phoenix MANUFACTURING ACCOUNTANT-C Work Phone: 1(119)826-084396 [place] [address] 02-17-2025 14:56-0400 Body temperature 98 [degF] Varinder Phoenix MANUFACTURING ACCOUNTANT-C Work Phone: [facility] 02-17-2025 14:56-0400 Diastolic blood pressure 64 mm[Hg] Varinder Phoenix MANUFACTURING ACCOUNTANT-C Work Phone: 7(532)416-379529 [place] [address] 02-17-2025 14:56-0400 Heart rate 63 /min Varinder Phoenix MANUFACTURING ACCOUNTANT-C Work Phone: 4(393)462-119396 [place] [address] 02-17-2025 14:56-0400 Respiratory rate 16 /min Varinder Phoenix MANUFACTURING ACCOUNTANT-C Work Phone: 8(587)199-461029 [place] [address] 02-17-2025 14:56-0400 SaO2% (BldA) [Mass fraction] 97 % Varinder Phoenix MANUFACTURING ACCOUNTANT-C Work Phone: 9(011)263-557029 [place] [address] 02-17-2025 14:56-0400 Systolic blood pressure 149 mm[Hg] Varinder Kumarider MANUFACTURING ACCOUNTANT-C Work Phone: 4(960)931-376696 [place] [address] 02-17-2025 10:40-0400 Body height 165.1 cm Varinder Kumarider MANUFACTURING ACCOUNTANT-C Work Phone: 3(608)632-346496 [place] [address] 02-17-2025 10:40-0400 Body mass index (BMI) [Ratio] 19.3 kg/m2 Varinder Kumarider MANUFACTURING ACCOUNTANT-C Work Phone: 5(467)257-831196 [place] [address] 02-17-2025 10:40-0400 Body weight 52.6 kg Varinder Kumarider MANUFACTURING ACCOUNTANT-C Work Phone: 8(882)297-789896 [place] [address] 02-19-2024 11:54-0400 Body temperature 98.2 [degF] Astrid Chavez APRN.IN STORE REPRESENTATIVE Work Phone: [facility] 02-19-2024 11:54-0400 Body weight 54 kg Astrid Chavez APRN.IN STORE REPRESENTATIVE Work Phone: [facility] 02-19-2024 11:54-0400 Diastolic blood pressure 76 mm[Hg] Astrid Chavez APRN.IN STORE REPRESENTATIVE Work Phone: [facility] 02-19-2024 11:54-0400 Heart rate 70 /min Astrid Chavez APRN.IN STORE REPRESENTATIVE Work Phone: [facility] 02-19-2024 11:54-0400 Respiratory rate 18 /min Astrid Chavez APRN.IN STORE REPRESENTATIVE Work Phone: [facility] 02-19-2024 11:54-0400 SaO2% (BldA) [Mass fraction] 97 % Astrid Chavez APRN.IN STORE REPRESENTATIVE Work Phone: [facility] 02-19-2024 11:54-0400 Systolic blood pressure 164 mm[Hg] Astrid Chavez APRN.IN STORE REPRESENTATIVE Work Phone: [facility] 09-11-2023 10:34-0500 Body temperature 98.2 [degF] MANUFACTURING ACCOUNTANT-C Varinder Phoenix MANUFACTURING ACCOUNTANT Work Phone: [facility] 09-11-2023 10:34-0500 Diastolic blood pressure 68 mm[Hg] MANUFACTURING ACCOUNTANT-C Varinder Phoenix MANUFACTURING ACCOUNTANT Work Phone: [facility] 09-11-2023 10:34-0500 Heart rate 56 /min MANUFACTURING ACCOUNTANT-C Varinder Phoenix MANUFACTURING ACCOUNTANT Work Phone: [facility] 09-11-2023 10:34-0500 Respiratory rate 16 /min MANUFACTURING ACCOUNTANT-C Varinder Phoenix MANUFACTURING ACCOUNTANT Work Phone: [facility] 09-11-2023 10:34-0500 SaO2% (BldA) [Mass fraction] 95 % MANUFACTURING ACCOUNTANT-C Varinder Phoenix MANUFACTURING ACCOUNTANT Work Phone: [facility] 09-11-2023 10:34-0500 Systolic blood pressure 124 mm[Hg] MANUFACTURING ACCOUNTANT-C Varinder Phoenix MANUFACTURING ACCOUNTANT Work Phone: [facility] 09-10-2023 12:55-0500 Body height 165.1 cm MANUFACTURING ACCOUNTANT-C Varinder Phoenix MANUFACTURING ACCOUNTANT Work Phone: [facility] 09-10-2023 12:55-0500 Body weight 56.29 kg MANUFACTURING ACCOUNTANT-C Varinder Phoenix MANUFACTURING ACCOUNTANT Work Phone: [facility] 09-09-2023 16:37-0500 Body mass index (BMI) [Ratio] 20.6 kg/m2 MANUFACTURING ACCOUNTANT-C Varinder Phoenix MANUFACTURING ACCOUNTANT Work Phone: [facility] 09-09-2023 15:05-0500 Diastolic blood pressure 63 mm[Hg] MANUFACTURING ACCOUNTANT-C Varinder Phoenix MANUFACTURING ACCOUNTANT Work Phone: [facility] 09-09-2023 15:05-0500 Heart rate 72 /min MANUFACTURING ACCOUNTANT-C Varinder Phoenix MANUFACTURING ACCOUNTANT Work Phone: [facility] 09-09-2023 15:05-0500 Respiratory rate 14 /min MANUFACTURING ACCOUNTANT-C Varinder Phoenix MANUFACTURING ACCOUNTANT Work Phone: [facility] 09-09-2023 15:05-0500 SaO2% (BldA) [Mass fraction] 95 % MANUFACTURING ACCOUNTANT-C Varinder Phoenix MANUFACTURING ACCOUNTANT Work Phone: [facility] 09-09-2023 15:05-0500 Systolic blood pressure 146 mm[Hg] MANUFACTURING ACCOUNTANT-C Varinder Phoenix MANUFACTURING ACCOUNTANT Work Phone: [facility] 09-09-2023 13:56-0500 Body temperature 98.3 [degF] MANUFACTURING ACCOUNTANT-C Varinder Phoenix MANUFACTURING ACCOUNTANT Work Phone: [facility] 09-09-2023 11:04-0500 Body height 162.56 cm MANUFACTURING ACCOUNTANT-C Varinder Phoenix MANUFACTURING ACCOUNTANT Work Phone: [facility] 09-09-2023 11:04-0500 Body mass index (BMI) [Ratio] 20.7 kg/m2 MANUFACTURING ACCOUNTANT-C Varinder Phoenix MANUFACTURING ACCOUNTANT Work Phone: [facility] 09-09-2023 11:04-0500 Body weight 54.8 kg MANUFACTURING ACCOUNTANT-C Varinder Phoenix MANUFACTURING ACCOUNTANT Work Phone: [facility] 12-02-2022 12:53-0500 Diastolic blood pressure 80 mm[Hg] MANUFACTURING ACCOUNTANT-C Varinder Phoenix MANUFACTURING ACCOUNTANT Work Phone: [facility] 12-02-2022 12:53-0500 Systolic blood pressure 146 mm[Hg] MANUFACTURING ACCOUNTANT-C Varinder Phoenix MANUFACTURING ACCOUNTANT Work Phone: [facility] 12-02-2022 12:53-0500 Body height 162.56 cm MANUFACTURING ACCOUNTANT-C Varinder Phoenix MANUFACTURING ACCOUNTANT Work Phone: [facility] 12-02-2022 12:53-0500 Body mass index (BMI) [Ratio] 20.2 kg/m2 MANUFACTURING ACCOUNTANT-C Varinder Phoenix MANUFACTURING ACCOUNTANT Work Phone: [facility] 12-02-2022 12:53-0500 Body temperature 98.6 [degF] MANUFACTURING ACCOUNTANT-C Varinder Phoenix MANUFACTURING ACCOUNTANT Work Phone: [facility] 12-02-2022 12:53-0500 Body weight 53.52 kg MANUFACTURING ACCOUNTANT-C Varinder Phoenix MANUFACTURING ACCOUNTANT Work Phone: [facility] 12-02-2022 12:53-0500 Heart rate 78 /min MANUFACTURING ACCOUNTANT-C Varinder Phoenix MANUFACTURING ACCOUNTANT Work Phone: [facility] 12-02-2022 12:53-0500 Respiratory rate 18 /min MANUFACTURING ACCOUNTANT-C Varinder Phoenix MANUFACTURING ACCOUNTANT Work Phone: [facility] 12-02-2022 12:53-0500 SaO2% (BldA) [Mass fraction] 96 % MANUFACTURING ACCOUNTANT-C Varinder Phoenix MANUFACTURING ACCOUNTANT Work Phone: [facility] 11-20-2022 13:48-0500 Diastolic blood pressure 54 mm[Hg] MANUFACTURING ACCOUNTANT-C Varinder Phoenix MANUFACTURING ACCOUNTANT Work Phone: [facility] 11-20-2022 13:48-0500 Heart rate 50 /min MANUFACTURING ACCOUNTANT-C Varinder Phoenix MANUFACTURING ACCOUNTANT Work Phone: [facility] 11-20-2022 13:48-0500 Respiratory rate 18 /min MANUFACTURING ACCOUNTANT-C Varinder Phoenix MANUFACTURING ACCOUNTANT Work Phone: [facility] 11-20-2022 13:48-0500 SaO2% (BldA) [Mass fraction] 99 % MANUFACTURING ACCOUNTANT-C Varinder Phoenix MANUFACTURING ACCOUNTANT Work Phone: [facility] 11-20-2022 13:48-0500 Systolic blood pressure 160 mm[Hg] MANUFACTURING ACCOUNTANT-C Varinder Phoenix MANUFACTURING ACCOUNTANT Work Phone: [facility] 11-20-2022 08:48-0500 Body mass index (BMI) [Ratio] 21.1 kg/m2 MANUFACTURING ACCOUNTANT-C Varinder Phoenix MANUFACTURING ACCOUNTANT Work Phone: [facility] 11-20-2022 08:48-0500 Body temperature 98.1 [degF] MANUFACTURING ACCOUNTANT-C Varinder Phoenix MANUFACTURING ACCOUNTANT Work Phone: [facility] 11-20-2022 08:48-0500 Body weight 55.9 kg MANUFACTURING ACCOUNTANT-C Varinder Phoenix MANUFACTURING ACCOUNTANT Work Phone: [facility] 04-16-2022 14:38-0400 Body temperature 96.4 [degF] MANUFACTURING ACCOUNTANT-C Varinder Phoenix MANUFACTURING ACCOUNTANT Work Phone: [facility] Work Phone: 04-16-2022 14:38-0400 Diastolic blood pressure 66 mm[Hg] MANUFACTURING ACCOUNTANT-C Varinder Phoenix MANUFACTURING ACCOUNTANT Work Phone: [facility] Work Phone: 04-16-2022 14:38-0400 Heart rate 90 /min MANUFACTURING ACCOUNTANT-C Varinder Phoenix MANUFACTURING ACCOUNTANT Work Phone: [facility] Work Phone: 04-16-2022 14:38-0400 Respiratory rate 14 /min MANUFACTURING ACCOUNTANT-C Varinder Phoenix MANUFACTURING ACCOUNTANT Work Phone: [facility] Work Phone: 04-16-2022 14:38-0400 SaO2% (BldA) [Mass fraction] 97 % MANUFACTURING ACCOUNTANT-C Varinder Phoenix MANUFACTURING ACCOUNTANT Work Phone: [facility] Work Phone: 04-16-2022 14:38-0400 Systolic blood pressure 129 mm[Hg] MANUFACTURING ACCOUNTANT-C Varinder Phoenix MANUFACTURING ACCOUNTANT Work Phone: [facility] Work Phone: 04-16-2022 12:53-0400 Body height 160.02 cm MANUFACTURING ACCOUNTANT-C Varinder Phoenix MANUFACTURING ACCOUNTANT Work Phone: [facility] Work Phone: 04-16-2022 12:53-0400 Body mass index (BMI) [Ratio] 21.9 kg/m2 MANUFACTURING ACCOUNTANT-C Varinder Phoenix MANUFACTURING ACCOUNTANT Work Phone: [facility] Work Phone: 04-16-2022 12:53-0400 Body weight 56.24 kg MANUFACTURING ACCOUNTANT-C Varinder Phoenix MANUFACTURING ACCOUNTANT Work Phone: [facility] Work Phone: 04-07-2022 09:26-0400 Respiratory rate 16 /min MANUFACTURING ACCOUNTANT-C Varinder Phoenix MANUFACTURING ACCOUNTANT Work Phone: [facility] Work Phone: 04-07-2022 09:04-0400 Body temperature 97.3 [degF] MANUFACTURING ACCOUNTANT-C Varinder Phoenix MANUFACTURING ACCOUNTANT Work Phone: [facility] Work Phone: 04-07-2022 09:04-0400 Diastolic blood pressure 71 mm[Hg] MANUFACTURING ACCOUNTANT-C Varinder Phoenix MANUFACTURING ACCOUNTANT Work Phone: [facility] Work Phone: 04-07-2022 09:04-0400 Heart rate 98 /min MANUFACTURING ACCOUNTANT-C Varinder Phoenix MANUFACTURING ACCOUNTANT Work Phone: [facility] Work Phone: 04-07-2022 09:04-0400 SaO2% (BldA) [Mass fraction] 98 % MANUFACTURING ACCOUNTANT-C Varinder Phoenix MANUFACTURING ACCOUNTANT Work Phone: [facility] Work Phone: 04-07-2022 09:04-0400 Systolic blood pressure 158 mm[Hg] MANUFACTURING ACCOUNTANT-C Varinder Phoenix MANUFACTURING ACCOUNTANT Work Phone: [facility] Work Phone: 04-06-2022 10:00-0400 Body weight 50.94 kg MANUFACTURING ACCOUNTANT-C Varinder Phoenix MANUFACTURING ACCOUNTANT Work Phone: [facility] Work Phone: 03-31-2022 16:47-0400 Body height 160.02 cm MANUFACTURING ACCOUNTANT-C Varinder Phoenix MANUFACTURING ACCOUNTANT Work Phone: [facility] Work Phone: 03-21-2022 15:03-0400 Body temperature 97.5 [degF] MANUFACTURING ACCOUNTANT-C Varinder Phoenix MANUFACTURING ACCOUNTANT Work Phone: [facility] Work Phone: 03-21-2022 15:03-0400 Diastolic blood pressure 62 mm[Hg] MANUFACTURING ACCOUNTANT-C Varinder Phoenix MANUFACTURING ACCOUNTANT Work Phone: [facility] Work Phone: 03-21-2022 15:03-0400 Heart rate 54 /min MANUFACTURING ACCOUNTANT-C Varinder Phoenix MANUFACTURING ACCOUNTANT Work Phone: [facility] Work Phone: 03-21-2022 15:03-0400 Respiratory rate 18 /min MANUFACTURING ACCOUNTANT-C Varinder Phoenix MANUFACTURING ACCOUNTANT Work Phone: [facility] Work Phone: 03-21-2022 15:03-0400 SaO2% (BldA) [Mass fraction] 96 % MANUFACTURING ACCOUNTANT-C Varinder Phoenix MANUFACTURING ACCOUNTANT Work Phone: [facility] Work Phone: 03-21-2022 15:03-0400 Systolic blood pressure 140 mm[Hg] MANUFACTURING ACCOUNTANT-C Varinder Phoenix MANUFACTURING ACCOUNTANT Work Phone: [facility] Work Phone: 03-21-2022 10:54-0400 Body height 160.02 cm MANUFACTURING ACCOUNTANT-C Varinder Phoenix MANUFACTURING ACCOUNTANT Work Phone: [facility] Work Phone: 03-21-2022 10:54-0400 Body weight 55.74 kg MANUFACTURING ACCOUNTANT-C Varinder Phoenix MANUFACTURING ACCOUNTANT Work Phone: [facility] Work Phone: 03-18-2022 18:03-0400 Body mass index (BMI) [Ratio] 24.7 kg/m2 MANUFACTURING ACCOUNTANT-C Varinder Phoenix MANUFACTURING ACCOUNTANT Work Phone: [facility] Work Phone: 03-18-2022 15:00-0400 Body temperature 97.7 [degF] MANUFACTURING ACCOUNTANT-C Varinder Phoenix MANUFACTURING ACCOUNTANT Work Phone: [facility] Work Phone: 03-18-2022 15:00-0400 Diastolic blood pressure 67 mm[Hg] MANUFACTURING ACCOUNTANT-C Varinder Phoenix MANUFACTURING ACCOUNTANT Work Phone: [facility] Work Phone: 03-18-2022 15:00-0400 Heart rate 54 /min MANUFACTURING ACCOUNTANT-C Varinder Phoenix MANUFACTURING ACCOUNTANT Work Phone: [facility] Work Phone: 03-18-2022 15:00-0400 Respiratory rate 18 /min MANUFACTURING ACCOUNTANT-C Varinder Phoenix MANUFACTURING ACCOUNTANT Work Phone: [facility] Work Phone: 03-18-2022 15:00-0400 SaO2% (BldA) [Mass fraction] 95 % MANUFACTURING ACCOUNTANT-C Varinder Phoenix MANUFACTURING ACCOUNTANT Work Phone: [facility] Work Phone: 03-18-2022 15:00-0400 Systolic blood pressure 144 mm[Hg] MANUFACTURING ACCOUNTANT-C Varinder Phoenix MANUFACTURING ACCOUNTANT Work Phone: [facility] Work Phone: 03-18-2022 09:45-0400 Body height 157.48 cm MANUFACTURING ACCOUNTANT-C Varinder Phoenix MANUFACTURING ACCOUNTANT Work Phone: [facility] Work Phone: 03-18-2022 09:45-0400 Body weight 53.9 kg MANUFACTURING ACCOUNTANT-C Varinder Phoenix MANUFACTURING ACCOUNTANT Work Phone: [facility] Work Phone: 03-15-2022 01:54-0400 Body mass index (BMI) [Ratio] 19.1 kg/m2 MANUFACTURING ACCOUNTANT-C Varinder Phoenix MANUFACTURING ACCOUNTANT Work Phone: [facility] Work Phone: 03-15-2022 01:42-0400 Body temperature 98.5 [degF] MANUFACTURING ACCOUNTANT-C Varinder Phoenix MANUFACTURING ACCOUNTANT Work Phone: [facility] Work Phone: 03-15-2022 01:42-0400 Diastolic blood pressure 70 mm[Hg] MANUFACTURING ACCOUNTANT-C Varinder Phoenix MANUFACTURING ACCOUNTANT Work Phone: [facility] Work Phone: 03-15-2022 01:42-0400 Heart rate 86 /min MANUFACTURING ACCOUNTANT-C Varinder Phoenix MANUFACTURING ACCOUNTANT Work Phone: [facility] Work Phone: 03-15-2022 01:42-0400 Respiratory rate 18 /min MANUFACTURING ACCOUNTANT-C Varinder Phoenix MANUFACTURING ACCOUNTANT Work Phone: [facility] Work Phone: 03-15-2022 01:42-0400 SaO2% (BldA) [Mass fraction] 93 % MANUFACTURING ACCOUNTANT-C Varinder Phoenix MANUFACTURING ACCOUNTANT Work Phone: [facility] Work Phone: 03-15-2022 01:42-0400 Systolic blood pressure 130 mm[Hg] MANUFACTURING ACCOUNTANT-C Varinder Phoenix MANUFACTURING ACCOUNTANT Work Phone: [facility] Work Phone: 03-14-2022 23:26-0400 Body height 157.48 cm MANUFACTURING ACCOUNTANT-C Varinder Phoenix MANUFACTURING ACCOUNTANT Work Phone: [facility] Work Phone: 03-14-2022 23:26-0400 Body mass index (BMI) [Ratio] 19.8 kg/m2 MANUFACTURING ACCOUNTANT-C Varinder Phoenix MANUFACTURING ACCOUNTANT Work Phone: [facility] Work Phone: 03-14-2022 23:26-0400 Body weight 49 kg MANUFACTURING ACCOUNTANT-C Varinder Phoenix MANUFACTURING ACCOUNTANT Work Phone: [facility] Work Phone: 02-17-2022 12:58-0400 Body mass index (BMI) [Ratio] 19.3 kg/m2 MANUFACTURING ACCOUNTANT-C Varinder Phoenix MANUFACTURING ACCOUNTANT Work Phone: [facility] Work Phone: 02-17-2022 12:58-0400 Body temperature 97.1 [degF] MANUFACTURING ACCOUNTANT-C Varinder Phoenix MANUFACTURING ACCOUNTANT Work Phone: [facility] Work Phone: 02-17-2022 12:58-0400 Body weight 51.02 kg MANUFACTURING ACCOUNTANT-C Varinder Phoenix MANUFACTURING ACCOUNTANT Work Phone: [facility] Work Phone: 02-17-2022 12:58-0400 Diastolic blood pressure 66 mm[Hg] MANUFACTURING ACCOUNTANT-C Varinder Phoenix MANUFACTURING ACCOUNTANT Work Phone: [facility] Work Phone: 02-17-2022 12:58-0400 Heart rate 61 /min MANUFACTURING ACCOUNTANT-C Varinder Phoenix MANUFACTURING ACCOUNTANT Work Phone: [facility] Work Phone: 02-17-2022 12:58-0400 Respiratory rate 18 /min MANUFACTURING ACCOUNTANT-C Varinder Phoenix MANUFACTURING ACCOUNTANT Work Phone: [facility] Work Phone: 02-17-2022 12:58-0400 SaO2% (BldA) [Mass fraction] 97 % MANUFACTURING ACCOUNTANT-C Varinder Phoenix MANUFACTURING ACCOUNTANT Work Phone: [facility] Work Phone: 02-17-2022 12:58-0400 Systolic blood pressure 132 mm[Hg] MANUFACTURING ACCOUNTANT-C Varinder Phoenix MANUFACTURING ACCOUNTANT Work Phone: [facility] Work Phone: 02-17-2022 12:58-0400 Body mass index (BMI) [Ratio] 19.3 kg/m2 MANUFACTURING ACCOUNTANT-C Varinder Phoenix MANUFACTURING ACCOUNTANT Work Phone: [facility] Work Phone: 02-17-2022 12:58-0400 Body temperature 97.1 [degF] MANUFACTURING ACCOUNTANT-C Varinder Phoenix MANUFACTURING ACCOUNTANT Work Phone: [facility] Work Phone: 02-17-2022 12:58-0400 Body weight 51.02 kg MANUFACTURING ACCOUNTANT-C Varinder Phoenix MANUFACTURING ACCOUNTANT Work Phone: [facility] Work Phone: 02-17-2022 12:58-0400 Diastolic blood pressure 66 mm[Hg] MANUFACTURING ACCOUNTANT-C Varinder Phoenix MANUFACTURING ACCOUNTANT Work Phone: [facility] Work Phone: 02-17-2022 12:58-0400 Heart rate 61 /min MANUFACTURING ACCOUNTANT-C Varinder Phoenix MANUFACTURING ACCOUNTANT Work Phone: [facility] Work Phone: 02-17-2022 12:58-0400 Respiratory rate 18 /min MANUFACTURING ACCOUNTANT-C Varinder Phoenix MANUFACTURING ACCOUNTANT Work Phone: [facility] Work Phone: 02-17-2022 12:58-0400 SaO2% (BldA) [Mass fraction] 97 % MANUFACTURING ACCOUNTANT-C Varinder Phoenix MANUFACTURING ACCOUNTANT Work Phone: [facility] Work Phone: 02-17-2022 12:58-0400 Systolic blood pressure 132 mm[Hg] MANUFACTURING ACCOUNTANT-C Varinder Phoenix MANUFACTURING ACCOUNTANT Work Phone: [facility] Work Phone: 02-13-2022 11:48-0400 Body temperature 98 [degF] MANUFACTURING ACCOUNTANT-C Varinder Phoenix MANUFACTURING ACCOUNTANT Work Phone: [facility] Work Phone: 02-13-2022 11:48-0400 Diastolic blood pressure 60 mm[Hg] MANUFACTURING ACCOUNTANT-C Varinder Phoenix MANUFACTURING ACCOUNTANT Work Phone: [facility] Work Phone: 02-13-2022 11:48-0400 Heart rate 70 /min MANUFACTURING ACCOUNTANT-C Varinder Phoenix MANUFACTURING ACCOUNTANT Work Phone: [facility] Work Phone: 02-13-2022 11:48-0400 Respiratory rate 16 /min MANUFACTURING ACCOUNTANT-C Varinder Phoenix MANUFACTURING ACCOUNTANT Work Phone: [facility] Work Phone: 02-13-2022 11:48-0400 SaO2% (BldA) [Mass fraction] 97 % MANUFACTURING ACCOUNTANT-C Varinder Phoenix MANUFACTURING ACCOUNTANT Work Phone: [facility] Work Phone: 02-13-2022 11:48-0400 Systolic blood pressure 131 mm[Hg] MANUFACTURING ACCOUNTANT-C Varinder Phoenix MANUFACTURING ACCOUNTANT Work Phone: [facility] Work Phone: 02-13-2022 09:18-0400 Body temperature 98.4 [degF] MANUFACTURING ACCOUNTANT-C Varinder Phoenix MANUFACTURING ACCOUNTANT Work Phone: [facility] Work Phone: 02-13-2022 09:18-0400 Diastolic blood pressure 57 mm[Hg] MANUFACTURING ACCOUNTANT-C Varinder Phoenix MANUFACTURING ACCOUNTANT Work Phone: [facility] Work Phone: 02-13-2022 09:18-0400 Heart rate 66 /min MANUFACTURING ACCOUNTANT-C Varinder Phoenix MANUFACTURING ACCOUNTANT Work Phone: [facility] Work Phone: 02-13-2022 09:18-0400 Respiratory rate 16 /min MANUFACTURING ACCOUNTANT-C Varinder Phoenix MANUFACTURING ACCOUNTANT Work Phone: [facility] Work Phone: 02-13-2022 09:18-0400 SaO2% (BldA) [Mass fraction] 97 % MANUFACTURING ACCOUNTANT-C Varinder Phoenix MANUFACTURING ACCOUNTANT Work Phone: [facility] Work Phone: 02-13-2022 09:18-0400 Systolic blood pressure 126 mm[Hg] MANUFACTURING ACCOUNTANT-C Varinder Phoenix MANUFACTURING ACCOUNTANT Work Phone: [facility] Work Phone: 02-12-2022 12:53-0400 Body height 162.99 cm MANUFACTURING ACCOUNTANT-C Varinder Phoenix MANUFACTURING ACCOUNTANT Work Phone: [facility] Work Phone: 02-12-2022 12:53-0400 Body weight 48.9 kg MANUFACTURING ACCOUNTANT-C Varinder Phoenix MANUFACTURING ACCOUNTANT Work Phone: [facility] Work Phone: 02-09-2022 20:39-0400 Body temperature 98.7 [degF] MANUFACTURING ACCOUNTANT-C Varinder Phoenix MANUFACTURING ACCOUNTANT Work Phone: [facility] Work Phone: 02-09-2022 20:39-0400 Diastolic blood pressure 56 mm[Hg] MANUFACTURING ACCOUNTANT-C Varinder Phoenix MANUFACTURING ACCOUNTANT Work Phone: [facility] Work Phone: 02-09-2022 20:39-0400 Heart rate 61 /min MANUFACTURING ACCOUNTANT-C Varinder Phoenix MANUFACTURING ACCOUNTANT Work Phone: [facility] Work Phone: 02-09-2022 20:39-0400 Respiratory rate 16 /min MANUFACTURING ACCOUNTANT-C Varinder Phoenix MANUFACTURING ACCOUNTANT Work Phone: [facility] Work Phone: 02-09-2022 20:39-0400 SaO2% (BldA) [Mass fraction] 98 % MANUFACTURING ACCOUNTANT-C Varinder Phoenix MANUFACTURING ACCOUNTANT Work Phone: [facility] Work Phone: 02-09-2022 20:39-0400 Systolic blood pressure 125 mm[Hg] MANUFACTURING ACCOUNTANT-C Varinder Phoenix MANUFACTURING ACCOUNTANT Work Phone: [facility] Work Phone: 02-08-2022 14:28-0400 Body height 162.99 cm MANUFACTURING ACCOUNTANT-C Varnider Phoenix MANUFACTURING ACCOUNTANT Work Phone: [facility] Work Phone: 02-08-2022 14:28-0400 Body weight 48.9 kg MANUFACTURING ACCOUNTANT-C Varinder Phoenix MANUFACTURING ACCOUNTANT Work Phone: [facility] Work Phone: 02-03-2022 23:19-0400 Body mass index (BMI) [Ratio] 18.3 kg/m2 MANUFACTURING ACCOUNTANT-C Varinder Phoenix MANUFACTURING ACCOUNTANT Work Phone: [facility] Work Phone: 02-03-2022 22:14-0400 Body temperature 99.8 [degF] MANUFACTURING ACCOUNTANT-C Varinder Phoenix MANUFACTURING ACCOUNTANT Work Phone: [facility] Work Phone: 02-03-2022 22:14-0400 Diastolic blood pressure 60 mm[Hg] MANUFACTURING ACCOUNTANT-C Varinder Phoenix MANUFACTURING ACCOUNTANT Work Phone: [facility] Work Phone: 02-03-2022 22:14-0400 Heart rate 84 /min MANUFACTURING ACCOUNTANT-C Varinder Phoenix MANUFACTURING ACCOUNTANT Work Phone: [facility] Work Phone: 02-03-2022 22:14-0400 Respiratory rate 17 /min MANUFACTURING ACCOUNTANT-C Varinder Phoenix MANUFACTURING ACCOUNTANT Work Phone: [facility] Work Phone: 02-03-2022 22:14-0400 SaO2% (BldA) [Mass fraction] 96 % MANUFACTURING ACCOUNTANT-C Varinder Phoenix MANUFACTURING ACCOUNTANT Work Phone: [facility] Work Phone: 02-03-2022 22:14-0400 Systolic blood pressure 139 mm[Hg] MANUFACTURING ACCOUNTANT-C Varinder Phoenix MANUFACTURING ACCOUNTANT Work Phone: [facility] Work Phone: 02-03-2022 18:35-0400 Body height 162.56 cm MANUFACTURING ACCOUNTANT-C Varinder Phoenix MANUFACTURING ACCOUNTANT Work Phone: [facility] Work Phone: 02-03-2022 18:35-0400 Body mass index (BMI) [Ratio] 20.5 kg/m2 MANUFACTURING ACCOUNTANT-C Varinder Phoenix MANUFACTURING ACCOUNTANT Work Phone: [facility] Work Phone: 02-03-2022 18:35-0400 Body weight 54.43 kg MANUFACTURING ACCOUNTANT-C Varidner Phoenix MANUFACTURING ACCOUNTANT Work Phone: [facility] Work Phone: 11-29-2021 12:46-0500 Body temperature 97.9 [degF] MANUFACTURING ACCOUNTANT-C Varinder Phoenix MANUFACTURING ACCOUNTANT Work Phone: [facility] Work Phone: 11-29-2021 12:46-0500 Diastolic blood pressure 72 mm[Hg] MANUFACTURING ACCOUNTANT-C Varinder Phoenix MANUFACTURING ACCOUNTANT Work Phone: [facility] Work Phone: 11-29-2021 12:46-0500 Heart rate 65 /min MANUFACTURING ACCOUNTANT-C Varinder Phoenix MANUFACTURING ACCOUNTANT Work Phone: [facility] Work Phone: 11-29-2021 12:46-0500 Respiratory rate 12 /min MANUFACTURING ACCOUNTANT-C Varinder Phoenix MANUFACTURING ACCOUNTANT Work Phone: [facility] Work Phone: 11-29-2021 12:46-0500 SaO2% (BldA) [Mass fraction] 95 % MANUFACTURING ACCOUNTANT-C Varinder Phoenix MANUFACTURING ACCOUNTANT Work Phone: [facility] Work Phone: 11-29-2021 12:46-0500 Systolic blood pressure 128 mm[Hg] MANUFACTURING ACCOUNTANT-C Varinder Phoenix MANUFACTURING ACCOUNTANT Work Phone: [facility] Work Phone: 11-29-2021 05:00-0500 Body weight 56.6 kg MANUFACTURING ACCOUNTANT-C Varinder Phoenix MANUFACTURING ACCOUNTANT Work Phone: [facility] Work Phone: 11-27-2021 05:21-0500 Body mass index (BMI) [Ratio] 19 kg/m2 MANUFACTURING ACCOUNTANT-C Varinder Phoenix MANUFACTURING ACCOUNTANT Work Phone: [facility] Work Phone: Encounters Encounter Date Encounter Type Care Provider Facility Start: 08-19-2025 ambulatory Varinder Phoenix VSC Facility :[facility] Start: 08-10-2025 ambulatory Varinder Phoenix VSC [place] [place]: 08-10-2025 End: 08-12-2025 Evaluation and management of inpatient Varinder Phoenix [facility] Facility:[facility] Start: 08-10-2025 ambulatory Varinder Phoenix [facility] [place] Start: 08-09-2025 ambulatory Varinder Phoenix [facility] Facility :[facility] Start: 08-07-2025 End: 08-07-2025 ambulatory Varinder Phoenix [facility] Facility:[facility] Start: 08-07-2025 End: 08-07-2025 ambulatory Varinder Phoenix [facility] Facility:[facility] [place] Start: 04-18-2025 End: 04-18-2025 Telephone encounter Sahara Amaral APRN.IN STORE REPRESENTATIVE Work Phone: Neurology Comment on above: Patient Update Start: 03-26-2025 End: 03-26-2025 Patient encounter procedure Sahara Amaral APRN.IN STORE REPRESENTATIVE Work Phone: Neurology Comment on above: Dizziness (Primary D x); TIA (transient ischemic attack) Start: 03-26-2025 End: 03-26-2025 ambulatory SAHARA AMARAL Facility:[facility] Start: 03-20-2025 ambulatory Varinder Phoenix [facility] [place] Start: 03-20-2025 ambulatory Varinder Phoenix [facility] Facility :[facility] Start: 02-19-2025 Non-patient / Non-visit Dr. Chip Fulton MD -[facility] Work Phone: Start: 02-18-2025 ambulatory Aba Dongori Facility:[facility] Start: 02-18-2025 Non-patient / Non-visit Dr. Chip Fulton MD -[facility] Work Phone: Start: 02-17-2025 Non-patient / Non-visit Dr. Sandy Paige MD -[facility] Work Phone: Start: 02-17-2025 End: 02-19-2025 Evaluation and management of inpatient Dr. Sandy Paige MD -[facility] Work Phone: Start: 02-17-2025 End: 02-19-2025 observation encounter Varinder Phoenix MANUFACTURING ACCOUNTANT-C Work Phone: [facility] Work Phone: Start: 02-17-2025 End: 02-19-2025 ambulatory Varinder Phoenix [facility] Facility:[facility] [place] Start: 11-28-2024 End: 11-28-2024 Patient encounter procedure Jared Draper DO -[facility] Work Phone: Start: 11-28-2024 End: 11-28-2024 ambulatory Varinder Phoenix [facility] [place] Start: 09-29-2024 End: 09-29-2024 Emergency department patient visit Varinder Phoenix [facility] Facility:[facility] Start: 02-20-2024 Telephone encounter William Maya PA Work Phone: [facility] Comment on above: Results Start: 02-19-2024 End: 02-19-2024 Patient encounter procedure Astrid Scott FISHMAN.IN STORE REPRESENTATIVE Work Phone: [facility] Comment on above: Urgency of urination (Primary Dx) Start: 09-10-2023 Non-patient / Non-visit MANUFACTURING ACCOUNTANT-C Varinder Kumarider MANUFACTURING ACCOUNTANT Work Phone: [facility] Work Phone: Start: 09-10-2023 Non-patient / Non-visit MANUFACTURING ACCOUNTANT-C Varinder Kumarider MANUFACTURING ACCOUNTANT Work Phone: [facility] Start: 09-09-2023 End: 09-11-2023 Evaluation and management of inpatient MANUFACTURING ACCOUNTANT-C Varinder Phoenix MANUFACTURING ACCOUNTANT Work Phone: [facility]-Progressive Care Unit Work Phone: Start: 09-09-2023 End: 09-11-2023 observation encounter MANUFACTURING ACCOUNTANT-C Varinder Phoenix MANUFACTURING ACCOUNTANT Work Phone: [facility] Work Phone: Start: 09-09-2023 Non-patient / Non-visit MANUFACTURING ACCOUNTANT-C Varinder Kumarider MANUFACTURING ACCOUNTANT Work Phone: [facility] Work Phone: Start: 12-02-2022 End: 12-02-2022 ambulatory MANUFACTURING ACCOUNTANT-C Varinder Kumarider MANUFACTURING ACCOUNTANT Work Phone: [facility] Work Phone: Start: 12-02-2022 End: 12-02-2022 Patient encounter procedure MANUFACTURING ACCOUNTANT-C Varinder Kumarider MANUFACTURING ACCOUNTANT Work Phone: [facility]-Radiology, [facility] Start: 12-02-2022 End: 12-02-2022 Patient encounter procedure MANUFACTURING ACCOUNTANT-C Varinder Kumarider MANUFACTURING ACCOUNTANT Work Phone: [facility] Start: 11-20-2022 End: 11-20-2022 Emergency department patient visit MANUFACTURING ACCOUNTANT-C Varinder Kumarider MANUFACTURING ACCOUNTANT Work Phone: [facility]-Emergency Department Start: 10-15-2022 End: 10-15-2022 ambulatory MANUFACTURING ACCOUNTANT-C Varinder Kumarider MANUFACTURING ACCOUNTANT Work Phone: [facility] Work Phone: Start: 10-15-2022 End: 10-15-2022 Patient encounter procedure MANUFACTURING ACCOUNTANT-C Varinder Kumarider MANUFACTURING ACCOUNTANT Work Phone: [facility] Start: 07-21-2022 End: 07-21-2022 Patient encounter procedure MANUFACTURING ACCOUNTANT-C Varinder Kumarider MANUFACTURING ACCOUNTANT Work Phone: [facility] Start: 04-16-2022 End: 04-16-2022 Patient encounter procedure MANUFACTURING ACCOUNTANT-C Varinder Kumarider MANUFACTURING ACCOUNTANT Work Phone: [facility]-Medical Out Start: 03-25-2022 End: 03-25-2022 Patient encounter procedure MANUFACTURING ACCOUNTANT-C Varinder Kumarider MANUFACTURING ACCOUNTANT Work Phone: [facility]-Cardiovascular Services Start: 03-19-2022 Non-patient / Non-visit MANUFACTURING ACCOUNTANT-C Varinder Phoenix MANUFACTURING ACCOUNTANT Work Phone: [facility] Start: 03-19-2022 End: 03-19-2022 Patient encounter procedure MANUFACTURING ACCOUNTANT-C Varinder Phoenix MANUFACTURING ACCOUNTANT Work Phone: [facility]-Cardiovascular Services Start: 03-18-2022 Non-patient / Non-visit MANUFACTURING ACCOUNTANT-C Varinder Kumarider MANUFACTURING ACCOUNTANT Work Phone: [facility] Start: 03-18-2022 End: 04-07-2022 Evaluation and management of inpatient MANUFACTURING ACCOUNTANT-C Varinder Kumarider MANUFACTURING ACCOUNTANT Work Phone: [facility]-Transitional Care Unit Start: 03-18-2022 Non-patient / Non-visit MANUFACTURING ACCOUNTANT-C Varinder Phoenix MANUFACTURING ACCOUNTANT Work Phone: [facility] Start: 03-17-2022 Non-patient / Non-visit MANUFACTURING ACCOUNTANT-C Varinder Phoenix MANUFACTURING ACCOUNTANT Work Phone: [facility] Start: 03-17-2022 Non-patient / Non-visit MANUFACTURING ACCOUNTANT-C Varinder Phoenix MANUFACTURING ACCOUNTANT Work Phone: [facility] Start: 03-16-2022 Non-patient / Non-visit MANUFACTURING ACCOUNTANT-C Varinder Kumarider MANUFACTURING ACCOUNTANT Work Phone: [facility] Start: 03-16-2022 Non-patient / Non-visit MANUFACTURING ACCOUNTANT-C Varinder Kumarider MANUFACTURING ACCOUNTANT Work Phone: [facility] Start: 03-15-2022 Non-patient / Non-visit MANUFACTURING ACCOUNTANT-C Varinder Kumarider MANUFACTURING ACCOUNTANT Work Phone: [facility] Start: 03-15-2022 Non-patient / Non-visit MANUFACTURING ACCOUNTANT-C Varinder Kumarider MANUFACTURING ACCOUNTANT Work Phone: [facility] Start: 03-15-2022 End: 03-18-2022 Evaluation and management of inpatient MANUFACTURING ACCOUNTANT-C Varinder Kumarider MANUFACTURING ACCOUNTANT Work Phone: [facility]-Medical Surgical 3 Start: 02-17-2022 End: 02-17-2022 Patient encounter procedure MANUFACTURING ACCOUNTANT-C Varinder Kumarider MANUFACTURING ACCOUNTANT Work Phone: [facility] Start: 02-16-2022 Non-patient / Non-visit MANUFACTURING ACCOUNTANT-C Varinder Phoenix MANUFACTURING ACCOUNTANT Work Phone: [facility] Start: 02-13-2022 Non-patient / Non-visit MANUFACTURING ACCOUNTANT-C Varinder Phoenix MANUFACTURING ACCOUNTANT Work Phone: [facility] Start: 02-12-2022 Non-patient / Non-visit MANUFACTURING ACCOUNTANT-C Varinder Phoenix MANUFACTURING ACCOUNTANT Work Phone: [facility] Start: 02-11-2022 Non-patient / Non-visit MANUFACTURING ACCOUNTANT-C Varinder Phoenix MANUFACTURING ACCOUNTANT Work Phone: [facility] Start: 02-11-2022 Non-patient / Non-visit MANUFACTURING ACCOUNTANT-C Varinder Phoenix MANUFACTURING ACCOUNTANT Work Phone: [facility] Start: 02-10-2022 Non-patient / Non-visit MANUFACTURING ACCOUNTANT-C Varinder Phoenix MANUFACTURING ACCOUNTANT Work Phone: [facility] Start: 02-09-2022 Non-patient / Non-visit MANUFACTURING ACCOUNTANT-C Varinder Phoenix MANUFACTURING ACCOUNTANT Work Phone: [facility] Start: 02-08-2022 Non-patient / Non-visit MANUFACTURING ACCOUNTANT-C Varinder Phoenix MANUFACTURING ACCOUNTANT Work Phone: [facility] Start: 02-07-2022 Non-patient / Non-visit MANUFACTURING ACCOUNTANT-C Varinder Phoenix MANUFACTURING ACCOUNTANT Work Phone: [facility] Start: 02-06-2022 Non-patient / Non-visit MANUFACTURING ACCOUNTANT-C Varinder Phoenix MANUFACTURING ACCOUNTANT Work Phone: [facility] Start: 02-06-2022 Non-patient / Non-visit MANUFACTURING ACCOUNTANT-C Varinder Phoenix MANUFACTURING ACCOUNTANT Work Phone: [facility] Start: 02-05-2022 Non-patient / Non-visit MANUFACTURING ACCOUNTANT-C Varinder Phoenix MANUFACTURING ACCOUNTANT Work Phone: [facility] Start: 02-05-2022 Non-patient / Non-visit MANUFACTURING ACCOUNTANT-C Varinder Phoenix MANUFACTURING ACCOUNTANT Work Phone: [facility] Start: 02-04-2022 Non-patient / Non-visit MANUFACTURING ACCOUNTANT-C Varinder Phoenix MANUFACTURING ACCOUNTANT Work Phone: [facility] Start: 02-04-2022 Non-patient / Non-visit MANUFACTURING ACCOUNTANT-C Varinder Phoenix MANUFACTURING ACCOUNTANT Work Phone: [facility] Start: 02-03-2022 Non-patient / Non-visit MANUFACTURING ACCOUNTANT-C Varinder Phoenix MANUFACTURING ACCOUNTANT Work Phone: [facility] Start: 02-03-2022 End: 02-13-2022 Evaluation and management of inpatient MANUFACTURING ACCOUNTANT-C Varinder Phoenix MANUFACTURING ACCOUNTANT Work Phone: [facility]-Medical Surgical 3 Start: 02-03-2022 End: 02-03-2022 Patient encounter procedure MANUFACTURING ACCOUNTANT-C Varinder Phoenix MANUFACTURING ACCOUNTANT Work Phone: [facility]-Laboratory Start: 02-03-2022 End: 02-03-2022 Patient encounter procedure MANUFACTURING ACCOUNTANT-C Varinder Phoenix MANUFACTURING ACCOUNTANT Work Phone: [facility] Start: 01-07-2022 Non-patient / Non-visit MANUFACTURING ACCOUNTANT-C Varinder Phoenix MANUFACTURING ACCOUNTANT Work Phone: [facility] Start: 12-08-2021 End: 12-08-2021 Patient encounter procedure MANUFACTURING ACCOUNTANT-C Varinder Phoenix MANUFACTURING ACCOUNTANT Work Phone: [facility] Start: 12-02-2021 Registered Referred MANUFACTURING ACCOUNTANT-C Varinder Phoenix MANUFACTURING ACCOUNTANT Work Phone: [facility]-Cardiovascular Services Start: 11-29-2021 Non-patient / Non-visit MANUFACTURING ACCOUNTANT-C Varinder Phoenix MANUFACTURING ACCOUNTANT Work Phone: [facility] Start: 11-28-2021 Non-patient / Non-visit MANUFACTURING ACCOUNTANT-C Varinder Phoenix MANUFACTURING ACCOUNTANT Work Phone: [facility] Start: 11-28-2021 Non-patient / Non-visit MANUFACTURING ACCOUNTANT-C Varinder Phoenix MANUFACTURING ACCOUNTANT Work Phone: [facility] Start: 11-27-2021 Non-patient / Non-visit MANUFACTURING ACCOUNTANT-C Varinder Kumarider MANUFACTURING ACCOUNTANT Work Phone: [facility] Start: 11-26-2021 Non-patient / Non-visit MANUFACTURING ACCOUNTANT-C Varinder Kumarider MANUFACTURING ACCOUNTANT Work Phone: [facility] Start: 11-26-2021 Non-patient / Non-visit MANUFACTURING ACCOUNTANT-C Varinder Kumarider MANUFACTURING ACCOUNTANT Work Phone: [facility] Start: 11-25-2021 Non-patient / Non-visit MANUFACTURING ACCOUNTANT-C Varinder Kumarider MANUFACTURING ACCOUNTANT Work Phone: [facility] Start: 11-25-2021 Non-patient / Non-visit MANUFACTURING ACCOUNTANT-C Varinder Kumarider MANUFACTURING ACCOUNTANT Work Phone: [facility] Start: 11-24-2021 Non-patient / Non-visit MANUFACTURING ACCOUNTANT-C Varinder Kumarider MANUFACTURING ACCOUNTANT Work Phone: [facility] Start: 11-24-2021 Non-patient / Non-visit MANUFACTURING ACCOUNTANT-C Varinder Kumarider MANUFACTURING ACCOUNTANT Work Phone: [facility] Start: 11-24-2021 End: 11-29-2021 Evaluation and management of inpatient MANUFACTURING ACCOUNTANT-C Varinder Kumarider MANUFACTURING ACCOUNTANT Work Phone: [facility]-Progressive Care Unit Start: 11-24-2021 Non-patient / Non-visit MANUFACTURING ACCOUNTANT-C Varinder Kumarider MANUFACTURING ACCOUNTANT Work Phone: [facility] Start: 11-23-2021 Non-patient / Non-visit MANUFACTURING ACCOUNTANT-C Varinder Kumarider MANUFACTURING ACCOUNTANT Work Phone: [facility] Start: 11-23-2021 Non-patient / Non-visit MANUFACTURING ACCOUNTANT-C Varinder Kumarider MANUFACTURING ACCOUNTANT Work Phone: [facility] Procedures Date Procedure Procedure Detail Performing Clinician Start: 02-18-2025 MRI of brain without contrast Varinder Phoenix MANUFACTURING ACCOUNTANT-C Work Phone: Start: 02-18-2025 Estimated creatinine clearance Varinder Phoenix MANUFACTURING ACCOUNTANT-C Work Phone: Start: 02-17-2025 CT angiography of he ad and neck Varinder Phoenix MANUFACTURING ACCOUNTANT-C Work Phone: Start: 02-17-2025 Estimated creatinine clearance Varinder Phoenix MANUFACTURING ACCOUNTANT-C Work Phone: Start: 02-17-2025 Reactive lymphocyte count Varinder Phoenix MANUFACTURING ACCOUNTANT-C Work Phone: Start: 02-17-2025 Urnls dip stick/tabl et reagent auto microscopy Varinder Phoenix MANUFACTURING ACCOUNTANT-C Work Phone: Start: 02-17-2025 X-ray of chest, PA a nd lateral views Varinder Phoenix MANUFACTURING ACCOUNTANT-C Work Phone: Start: 02-17-2025 CT of head without contrast Varinder Phoenix MANUFACTURING ACCOUNTANT-C Work Phone: Start: 02-19-2024 Urnls dip stick/tabl et rgnt auto w/o microscopy Astrid Chavez APRN.IN STORE REPRESENTATIVE Work Phone: Start: 09-09-2023 SARS-CoV-2 & FLU Ant igen (Rapid) MANUFACTURING ACCOUNTANT-C Varinder Phoenix MANUFACTURING ACCOUNTANT Work Phone: Start: 09-09-2023 Plain x-ray of elbow MANUFACTURING ACCOUNTANT -C Varinder Phoenix MANUFACTURING ACCOUNTANT Work Phone: Start: 09-09-2023 Plain chest X-ray MANUFACTURING ACCOUNTANT-C Varinder Phoenix MANUFACTURING ACCOUNTANT Work Phone: Start: 12-02-2022 Radiologic examinati on of knee MANUFACTURING ACCOUNTANT-C Varinder Phoenix MANUFACTURING ACCOUNTANT Work Phone: Start: 12-02-2022 Plain X-ray of tibia and fibula MANUFACTURING ACCOUNTANT-C Varinder Phoenix MANUFACTURING ACCOUNTANT Work Phone: Start: 11-20-2022 X-ray of lumbar spin e, two or three views MANUFACTURING ACCOUNTANT-C Varinder Phoenix MANUFACTURING ACCOUNTANT Work Phone: Start: 03-18-2022 End: 03-18-2022 Viral antigen assay MANUFACTURING ACCOUNTANT-C Varinder Phoenix MANUFACTURING ACCOUNTANT Work Phone: Start: 03-15-2022 Bacteria identified in Blood by Culture MANUFACTURING ACCOUNTANT-C Varinder Phoenix MANUFACTURING ACCOUNTANT Work Phone: Start: 03-15-2022 End: 03-15-2022 Clostridium difficile detection MANUFACTURING ACCOUNTANT-C Varinder Phoenxi MANUFACTURING ACCOUNTANT Work Phone: Start: 03-15-2022 End: 03-15-2022 Ova OR parasites identification MANUFACTURING ACCOUNTANT-C Varinder Kumarider MANUFACTURING ACCOUNTANT Work Phone: Start: 03-15-2022 Computed tomography of abdomen and pelvis with contrast MANUFACTURING ACCOUNTANT-C Varinder Phoenix MANUFACTURING ACCOUNTANT Work Phone: Start: 02-12-2022 End: 02-12-2022 Viral antigen assay MANUFACTURING ACCOUNTANT-C Varinder Phoenix MANUFACTURING ACCOUNTANT Work Phone: Start: 02-12-2022 Plain chest X-ray MANUFACTURING ACCOUNTANT-C Varinder Phoenix MANUFACTURING ACCOUNTANT Work Phone: Start: 02-05-2022 Bacteria Detection (PCR) MANUFACTURING ACCOUNTANT-C Varinder Phoenix MANUFACTURING ACCOUNTANT Work Phone: Start: 02-05-2022 Bacteria identified in Blood by Culture MANUFACTURING ACCOUNTANT-C Varinder Phoenix MANUFACTURING ACCOUNTANT Work Phone: Start: 02-05-2022 Plain X-ray abdomen MANUFACTURING ACCOUNTANT- C Varinder Phoenix MANUFACTURING ACCOUNTANT Work Phone: Start: 02-04-2022 End: 02-04-2022 Clostridium difficile detection MANUFACTURING ACCOUNTANT-C Varinder Phoenix MANUFACTURING ACCOUNTANT Work Phone: Start: 02-03-2022 Plain chest X-ray MANUFACTURING ACCOUNTANT-C Varinder Kumarider MANUFACTURING ACCOUNTANT Work Phone: Start: 02-03-2022 Computed tomography of abdomen and pelvis with intravenous contrast MANUFACTURING ACCOUNTANT-C Varinder Phoenix MANUFACTURING ACCOUNTANT Work Phone: Start: 11-27-2021 End: 11-27-2021 Clostridium difficile detection MANUFACTURING ACCOUNTANT-C Varinder Kumarider MANUFACTURING ACCOUNTANT Work Phone: Start: 11-27-2021 Enteric Bacteriology MANUFACTURING ACCOUNTANT -C Varinder Phoenix MANUFACTURING ACCOUNTANT Work Phone: Start: 11-27-2021 End: 11-27-2021 Ova OR parasites identification MANUFACTURING ACCOUNTANT-C Varinder Phoenix MANUFACTURING ACCOUNTANT Work Phone: Start: 11-27-2021 Colonoscopy MANUFACTURING ACCOUNTANT-C Varinder Phoenix MANUFACTURING ACCOUNTANT Work Phone: Start: 11-26-2021 SARS-CoV-2 Antigen (Rapid) MANUFACTURING ACCOUNTANT-C Varinder Phoenix MANUFACTURING ACCOUNTANT Work Phone: Start: 11-23-2021 Computed tomography of abdomen and pelvis with intravenous contrast MANUFACTURING ACCOUNTANT-C Varinder Phoenix MANUFACTURING ACCOUNTANT Work Phone: Start: 11-23-2021 Plain chest X-ray MANUFACTURING ACCOUNTANT-C Varinder Phoenix MANUFACTURING ACCOUNTANT Work Phone: Start: 11-23-2021 Bacteria identified in Blood by Culture MANUFACTURING ACCOUNTANT-C Varinder Phoenix MANUFACTURING ACCOUNTANT Work Phone: Start: 11-23-2021 End: 11-23-2021 Lactoferrin measurement MANUFACTURING ACCOUNTANT-C Varinder Phoenix MANUFACTURING ACCOUNTANT Work Phone: Start: 01-19-2019 Stool culture Comment on above: Performed By: #### 1 [id number] #### Huff [facility] [address] [place] [id number] Bacteria identified in Blood by Culture MANUFACTURING ACCOUNTANT-C Varinder Phoenix MANUFACTURING ACCOUNTANT Work Phone: Clostridium difficil e detection MANUFACTURING ACCOUNTANT-C Varinder Phoenix MANUFACTURING ACCOUNTANT Work Phone: [facility] [place] parasites identification MANUFACTURING ACCOUNTANT-C Varinder Phoenix MANUFACTURING ACCOUNTANT Work Phone: Viral antigen assay MANUFACTURING ACCOUNTANT-C Sherice Phoenix MANUFACTURING ACCOUNTANT Work Phone: Plan of Treatment Date Care Activity Detail Author Start: 06-10-2025 Influenza vaccination Influenza Vacc ine (#1) [facility] Start: 02-19-2025 Patient discharge [facility] Start: 02-17-2025 Application of intermittent pneumatic compression device [facility] Start: 02-17-2025 Following clinical p athway protocol [facility] Start: 02-17-2025 Assessment of risk o f venous thromboembolism [facility] Start: 02-17-2025 Cardiac monitoring [facility] Start: 02-17-2025 Catheterization of vein [facility] Start: 02-17-2025 Consultation [facility] Start: 02-17-2025 Elevation of head of bed [facility] Start: 02-17-2025 Exercises [facility] Start: 02-17-2025 Insertion of cathete r into peripheral vein [facility] Start: 02-17-2025 Notification of physician [facility] Start: 02-17-2025 Oxygen therapy [facility] Start: 02-17-2025 Patient referral to dietitian [facility] Start: 02-17-2025 Providing care accor ding to standard [facility] Start: 02-17-2025 Provision of activit y privileges [facility] Start: 02-17-2025 Referral to occupati onal therapist [facility] Start: 02-17-[address] [facility] Start: 02-17-2025 Speech therapy assessment [facility] Start: 02-17-2025 Tobacco use cessatio n education [facility] Start: 02-17-2025 End: 02-17-2025 [facility] Start: 02-17-2025 Vital signs measurements [facility] Start: 02-17-2025 MRI of brain without contrast Brain without Contrast [facility] Start: 02-17-2025 Verification routine [facility] Start: 02-17-[address] [facility] Start: 02-17-2025 Hospital admission, emergency, from emergency room, medical nature [facility] Start: 02-17-2025 [facility] Start: 02-17-2025 [facility] Start: 02-17-2025 Patient referral to dietitian [facility] Start: 10-10-2024 Advance Directive Discussion Advance Directive Discussion [facility] Start: 06-10-2024 Covid-19 Vaccine () Covid-19 Vaccine () [facility] Start: 10-10-2023 Advance Directive Discussion Advance Directive Discussion [facility] Start: 10-10-2023 Behavioral Health Screening Behavioral Health Screening [facility] Start: 09-17-2023 Blood chemistry [facility] Start: 09-16-2023 Blood chemistry [facility] Start: 09-15-2023 Blood chemistry [facility] Start: 09-11-2023 Patient discharge [facility] Start: 09-10-[address] [facility] Start: 09-10-2023 [facility] Start: 09-09-2023 Following clinical p athway protocol [facility] Start: 09-09-2023 Ambulation without limitation [facility] Start: 09-09-2023 Assessment of risk o f venous thromboembolism [facility] Start: 09-09-2023 Insertion of cathete r into peripheral vein [facility] Start: 09-09-2023 Providing care accor ding to standard [facility] Start: 09-09-2023 Referral to occupati onal therapist [facility] Start: 09-09-[address] [facility] Start: 09-09-2023 [facility] Start: 09-09-[address] [facility] Start: 09-09-2023 Verification routine [facility] Start: 09-09-2023 Hospital admission, emergency, from emergency room, medical nature [facility] Start: 09-09-2023 [facility] Start: 09-09-2023 [facility] Start: 09-09-2023 Patient referral to dietitian [facility] Start: 06-10-2023 Covid-19 Vaccine ( season) Covid-19 Vaccine ( season) [facility] Start: 10-15-2022 Procedure [facility] Start: 05-07-2022 Blood chemistry [facility] Work Phone: Start: 04-30-2022 Blood chemistry [facility] Work Phone: Start: 04-23-2022 Blood chemistry [facility] Work Phone: Start: 04-16-2022 Iv infusion therapy/prophylaxis /dx 1st to 1 hr THER/PROPH/DIAG IV INF INIT [facility] Work Phone: Start: 04-16-2022 Blood chemistry [facility] Work Phone: Start: 04-09-2022 Blood chemistry [facility] Work Phone: Start: 04-07-2022 Development of care plan [facility] Work Phone: Start: 04-07-2022 Patient discharge [facility] Work Phone: Start: 04-06-2022 Developing a treatme nt plan [facility] Work Phone: Start: 04-01-[address] [facility] Work Phone: Start: 03-23-2022 Dietary intake assessment [facility] Work Phone: Start: 03-20-2022 Speech therapy management [facility] Work Phone: Start: 03-19-2022 Development of care plan [facility] Work Phone: Start: 03-19-2022 Developing a treatme nt plan [facility] Work Phone: Start: 03-19-2022 Speech therapy assessment [facility] Work Phone: Start: 03-18-2022 Referral to gastroenterology service [facility] Work Phone: Start: 03-18-[address] [facility] Work Phone: Start: 03-18-2022 Measuring intake and output [facility] Work Phone: Start: 03-18-2022 Patient referral to dietitian [facility] Work Phone: Start: 03-18-2022 Referral to occupati onal therapist [facility] Work Phone: Start: 03-18-[address] [facility] Work Phone: Start: 03-18-2022 Vital signs measurements [facility] Work Phone: Start: 03-18-2022 [facility] Work Phone: Start: 03-18-2022 Patient discharge [facility] Work Phone: Start: 03-18-2022 Administration of to belle parenteral nutrition [facility] Work Phone: Start: 03-18-2022 Patient referral to dietitian [facility] Work Phone: Start: 03-17-2022 Administration of to belle parenteral nutrition [facility] Work Phone: Start: 03-17-2022 End: 03-17-2022 [facility] Work Phone: Start: 03-17-2022 Care regimes management [facility] Work Phone: Start: 03-17-2022 Notification of physician [facility] Work Phone: Start: 03-17-2022 [facility] Work Phone: Start: 03-16-2022 Peripherally inserte d central catheter care [facility] Work Phone: Start: 03-16-2022 [facility] Work Phone: Start: 03-16-2022 Administration of to belle parenteral nutrition [facility] Work Phone: Start: 03-16-2022 Patient referral to dietitian [facility] Work Phone: Start: 03-16-2022 Procedure [facility] Work Phone: Start: 03-15-2022 Bacteria identified in Blood by Culture Blood Culture [facility] Work Phone: Start: 03-15-2022 Ova and Parasites Ova and Parasites [facility] Work Phone: Start: 03-15-2022 Consultation [facility] Work Phone: Start: 03-15-2022 Following clinical p athway protocol [facility] Work Phone: Start: 03-15-2022 Application of intermittent pneumatic compression device [facility] Work Phone: Start: 03-15-2022 Aspiration precautions [facility] Work Phone: Start: 03-15-2022 Assessment of risk o f venous thromboembolism [facility] Work Phone: Start: 03-15-[address] [facility] Work Phone: Start: 03-15-2022 Fall prevention [facility] Work Phone: Start: 03-15-2022 Incentive spirometry [facility] Work Phone: Start: 03-15-2022 Insertion of cathete r into peripheral vein [facility] Work Phone: Start: 03-15-2022 Introduction of urin earl catheter [facility] Work Phone: Start: 03-15-2022 Measuring intake and output [facility] Work Phone: Start: 03-15-2022 Oxygen therapy [facility] Work Phone: Start: 03-15-2022 Patient referral to dietitian [facility] Work Phone: Start: 03-15-2022 Providing care accor ding to standard [facility] Work Phone: Start: 03-15-2022 Provision of activit y privileges [facility] Work Phone: Start: 03-15-2022 Referral to gastroenterology service [facility] Work Phone: Start: 03-15-2022 Referral to occupati onal therapist [facility] Work Phone: Start: 03-15-[address] [facility] Work Phone: Start: 03-15-2022 [facility] Work Phone: Start: 03-15-[address] [facility] Work Phone: Start: 03-15-2022 Computed tomography of abdomen and pelvis with contrast Abdomen/Pelvis WITH Contrast [facility] Work Phone: Start: 02-16-2022 Patient referral [facility] Work Phone: Start: 02-13-2022 Patient discharge [facility] Work Phone: Start: 02-09-[address] [facility] Work Phone: Start: 02-06-2022 Referral to occupati onal therapist [facility] Work Phone: Start: 02-06-[address] [facility] Work Phone: Start: 02-05-2022 Bacteria identified in Blood by Culture Blood Culture [facility] Work Phone: Start: 02-05-2022 [facility] Work Phone: Start: 02-03-2022 Following clinical p athway protocol [facility] Work Phone: Start: 02-03-2022 Assessment of risk o f venous thromboembolism [facility] Work Phone: Start: 02-03-[address] [facility] Work Phone: Start: 02-03-2022 Insertion of cathete r into peripheral vein [facility] Work Phone: Start: 02-03-2022 Providing care accor ding to standard [facility] Work Phone: Start: 02-03-2022 Provision of activit y privileges [facility] Work Phone: Start: 02-03-2022 Referral to gastroenterology service [facility] Work Phone: Start: 02-03-2022 [facility] Work Phone: Start: 02-03-[address] [facility] Work Phone: Start: 02-03-2022 Bacteria identified in Blood by Culture Blood Culture [facility] Work Phone: Start: 02-03-2022 Patient referral to dietitian [facility] Work Phone: Start: 2016 RSV Vaccine (1 - 1-d ose 75+ series) RSV Vaccine (1 - 1-dose 75+ series) [facility] Start: 2006 Screening for osteoporosis Bone Dens ity Screening [facility] Start: 03-10-2006 Medicare Annual Well ness Visit Medicare Annual Wellness Visit [facility] Start: 2001 RSV Vaccine (1 - 1-d ose 60+ series) RSV Vaccine (1 - 1-dose 60+ series) [facility] Start: 1991 Shingrix Vaccine (1 of 2) Del Real grix Vaccine (1 of 2) [facility] Start: 1986 Diabetes Screening Diabetes Screenin g [facility] Start: 1960 Urine microalbumin profile DTa P,Tdap,Td Vaccine (1 - Tdap) [facility] Start: 1959 Anxiety Screening Anxiety Screening [facility] Start: 1959 Depression Screening Depression Scre ening [facility] Bacteria identified in Urine by Culture URINE CULTURE Microbiology Routine Urgency of urination Ordered: 02/19/2024 [facility] Work Phone: Comment on above: Ordered: 02/19/2024 Cardiac event recording [facility] Hemoglobin A1c/Hemoglobin.total in Blood [facility] Patient Education [facility] Work Phone: Patient referral [facility] Work Phone: Troponin T.cardiac [Mass/volume] in Serum or Plasma by High sensitivity method [facility] Immunizations Immunization Date Immunization Notes Care Provider Fa rob 08-13-2024 influenza virus vacc ine, unspecified formulation Sahara Amaral MANAGER C[employer] STORE REPRESENTATIVE Work Phone: [facility] 03-23-2022 Covid (Moderna) MANUFACTURING ACCOUNTANT-C Varinder bolivar MANUFACTURING ACCOUNTANT Work Phone: [facility] 08-12-2021 Covid (Moderna) MANUFACTURING ACCOUNTANT-C Varinder Yo osmel MANUFACTURING ACCOUNTANT Work Phone: [facility] 08-11-2021 influenza, injectabl e, quadrivalent, preservative free MANUFACTURING ACCOUNTANT-C Varinder Phoenix MANUFACTURING ACCOUNTANT Work Phone: [facility] 08-11-2021 influenza, seasonal, injectable MANUFACTURING ACCOUNTANT-C Varinder Phoenix MANUFACTURING ACCOUNTANT Work Phone: [facility] 12-17-2020 Covid (Miah & Miah) MANUFACTURING ACCOUNTANT-C Varinder Phoenix MANUFACTURING ACCOUNTANT Work Phone: [facility] 08-14-2020 Influenza, high dose seasonal Varinder Phoenix MANUFACTURING ACCOUNTANT-C Work Phone: [facility] 08-14-2020 influenza, high dose seasonal, preservative-free MANUFACTURING ACCOUNTANT-C Varinder Phoenix MANUFACTURING ACCOUNTANT Work Phone: [facility] 03-17-2018 pneumococcal polysaccharide vaccine, 23 valent MANUFACTURING ACCOUNTANT-C Varinder Phoenix MANUFACTURING ACCOUNTANT Work Phone: [facility] 02-28-2017 pneumococcal conjuga te vaccine, 13 valent MANUFACTURING ACCOUNTANT-C Varinder Phoenix MANUFACTURING ACCOUNTANT Work Phone: [facility] Payers Date Payer Category Payer Self-pay [id number] 2012 Private Health Insurance [facility] [place] [address] [id number] 2012 Unknown [facility] MEDICARE SUPPLEMENT [id number] 2012-Present [phone] [facility] [place] [address] Indemnity [id number] 2012 Unknown [id number] 2006 Medicare [id number] 2006 Medicare [id number] Unknown [id number] Unknown [id number] Unknown [id number]. [id number] Unknown [id number]. 2.462 Unknown [id number]. 2.462 Unknown [id number]. 2.462 Unknown [id number]. 2.462 Unknown [id number]. 2.462 Unknown [id number]. 2.462 Unknown [id number] 2.840.1.486796.3.579. 2.462 Unknown [id number]. 2.462 Unknown [id number] [id number]. 2.462 Unknown [id number]. 2.462 Unknown [id number]. 2.462 Unknown [id number] [id number]. 2.462 Unknown [id number] [id number]. 2.462 Unknown [id number] [id number]. 2.462 Unknown [id number]. 2.462 Unknown [id number]. 2.462 Unknown [id number]. 2.462 Social History Date Type Detail Facility Start: 02-03-2022 End: 09-09-2023 Tobacco smoking status NHIS Unknown if ever smoked [facility] Start: 1940 Sex Assigned At Female [facility] Start: 02-19-2024 End: 02-19-2025 Tobacco smoking status NHIS Never smoked tobacco [facility] Start: 02-19-2024 Tobacco use and exposure Smokeless tobacco non-user [facility] Start: 02-19-2024 End: 03-26-2025 History of Social function [facility] Start: 02-19-2024 End: 03-26-2025 Tobacco use panel [facility] Start: 1940 Sex Assigned At Not on file [facility] Start: 02-19-2025 Tobacco Use Tobacco Use [facility] Adult Depression Screening Assessment 0 [facility] Goals Date Patient Goal Desired Activity /State Functional Status Date Assessment Result Facility 02-19-2025 Functional status Ambulates [facility] Work Phone: 09-11-2023 Functional status Ambulates [facility] Work Phone: 04-07-2022 Functional status Chair [facility] Work Phone: 03-21-2022 Functional status Ambulates [facility] Work Phone: 03-21-2022 Functional status Rolling Walker [facility] Work Phone: 03-18-2022 Functional status Ambulates;Bathroom Priv ilege [facility] Work Phone: 02-13-2022 Functional status Ambulates;Bathroom Priv ilege [facility] Work Phone: 02-09-2022 Functional status Activity Abili ty Standby Assist [facility] Work Phone: 02-09-2022 Functional status Bedrest;Bathroom Privil ege [facility] Work Phone: 11-29-2021 Functional status Ambulates;Todd r;Bathroom Privilege [facility] Work Phone: 11-28-2021 Functional status Tolerates Activity Fair [facility] Work Phone: Mental Status Date Assessment Result Facility 02-19-2025 Cognitive function Voice/Name [facility] Work Phone: 02-17-2025 Cognitive function Voice/Name [facility] Work Phone: 09-11-2023 Cognitive function Voice/Name [facility] Work Phone: 09-09-2023 Cognitive function Level Of Cons ciousness Awake;Alert;Appropriate;Follow s Commands [facility] Work Phone: 04-16-2022 Cognitive function Awake;Alert;A ppropriate;Follow s Commands [facility] Work Phone: 04-07-2022 Cognitive function Voice/Name [facility] Work Phone: 04-01-2022 Cognitive function Appropriate;[facility] Work Phone: 03-21-2022 Cognitive function Voice/Name [facility] Work Phone: 03-18-2022 Cognitive function Appropriate;[facility] Work Phone: 03-17-2022 Cognitive function Voice/Name [facility] Work Phone: 02-13-2022 Cognitive function Voice/Name [facility] Work Phone: 02-09-2022 Cognitive function Voice/Name [facility] Work Phone: 02-03-2022 Cognitive function Level Of Cons ciousness Alert;Appropriate;Follows Commands;Drowsy [facility] Work Phone: 11-29-2021 Cognitive function Voice/Name [facility] Work Phone: Clinical Notes 09-09-2023 to 08-12-2025 Telephone Encounter - Marisel Galaviz MA - 04/18/2025 9:16 AM EDTTelephone Encounter - Marisel Galaviz MA - 04/18/2025 9:16 AM EDTPatient Instructions Note Date & Type Note Facility 08-12-2025 Note [facility] Medical Records Department [address] [place] [address] Discharge Summary 08/12/25 1556 MR#: [id number] Acct: [id number] Name: SHIRA MERRITT Rep #: [id number] : 1940 85 From: Malcolm Altamirano MD PCP: IDALMIS Hollis Status:DIS IN Location: [place] [address] Providers Date of Admission: 08/10/25 Primary Care Physician: IDALMIS Hollis Reason For Visit: HALLUCINATIONS. Diagnosis Discharge Diagnosis (1) Hallucination, visual: Status: Acute Code(s): R44.1 - Visual hallucinations (2) Lactic acidosis: Status: Acute Code(s): E87.20 - Acidosis, unspecified Medications at Discharge Home Medications ustekinumab 90 mg/mL subcutaneous syringe (Stelara) 90 mg subcut Q8W 12 months #1 mL 06/26/24 acetaminophen 500 mg capsule 1,000 mg PO Q6H PRN fever or pain 02/17/25 aspirin 81 mg chewable tablet 81 mg PO BREAKFAST 30 days #30 tabs 02/19/25 hydroxyzine pamoate 25 mg capsule 50 mg (2 x 25 mg) PO TID PRN PRN Anxiety #8 CAPSULES 08/09/25 Hospital Course Operations None Procedures 2-D Echocardiogram and Electroencephalogram Summary of Care Provided Minutes Spent on Discharge: 36 Hospital Course: Per HPI: HSIRA MERRITT, is a 85 F who presents with hallucinations this is a 81 female with a past medical history presents from home with hallucinations. The hallucinations are the patient, who is 85 years old, seeing her father in the room. Symptoms persisted for a while so that led to the family the bring patient to the emergency room. And patient underwent a workup with a head CT, urinalysis, chest x-ray, COVID/influenza/RSV which were all negative. The plan was for the patient to go home but then she started hallucinating again seeing her father. The family was concerned and the hospital service was contacted. Patient has had hallucinations in the past but they have been rather nonspecific as another individual, not necessarily her father, being present in her room. Usually symptoms were very limited and many times associated with a urinary tract infection. Patient right now complains of a headache her vision being blurry. She does have chronic left lower extremity weakness that was felt to be due to a TIA. Also while patient was in the room she started having rigors where she was shaking the whole bed. Patient was since wrapped in blankets and is finally feeling warm. Hospital Course: 1. Hallucination/confusion???85-year- old female with presented to the hospital at the encouragement of her children secondary to hallucinations specifically seeing her father. She states that the hallucinations are significant in detail as she states that she sees him as clearly as she sees me at the foot of her bed. She does not appear to be overly distressed by this she denies any history of mental illness she denies any auditory hallucinations. Initially there was concern for infection however workup has been negative. MRI of her brain was unremarkable for any stroke or or masslike lesions. An EEG was obtained which was unremarkable. And she had an echocardiogram which was normal with an EF of 65% and a PASP of 30 mmHg. I discussed with her the results today, and discussed with her the recommendations by neurology to proceed with a lumbar puncture. We will send this off for studies but she does not want to stay in the hospital any longer than she absolutely has to and is requesting to be discharged today. She denies any hallucinations over the last 24 hours though she did have a little bit of a headache yesterday but nothing new today. I discussed with her the possibility for discharge and she expressed understanding of the risks and benefits of going home and would like to go home today. I discussed with her that her PCP should be able to evaluate the results of the LP in a few days time. She does not have any fevers or neck pain currently to indicate a meningitis or encephalitis on clinical exam. I did discuss the case with her granddaughter who is a local nurse practitioner about the findings of the elevated lymphocytes and protein in her CSF sample and she will be able to follow-up in the [facility] [facility] for results and we discussed indications to return to the hospital, not limited to worsening hallucinations, headaches, fevers, neck stiffness. 2. Ulcerative colitis, anxiety her chronic medical conditions which complicate her care. Her home medications were continued where appropriate Physical Exam Narrative General: Alert, Oriented x3, Cooperative, No apparent distress HEENT: Atraumatic, PERRLA, EOMI, Normocephalic Oral: Moist Mucosa Neck: Supple, No JVD, no pain with neck manipulation Lungs: Diminished, Normal air movement, No rhonchi, No wheeze, No rales Cardiovascular: Regular rate, Regular Rhythm, Normal S1, Normal S2, No murmurs Abdomen: Soft, Non Tender, Non-Distended, (more content not included)... [facility] 04-18-2025 Telephone encounter Note Received discharge summary from [facility] . Placed on Sahara Amaral desk for review [facility] 04-18-2025 Miscellaneous Notes Received discharge summary from [facility] . Placed on Sahara Amaral desk for review documented in this encounter [facility] 03-26-2025 Instructions Sahara Amaral APRN.IN STORE REPRESENTATIVE - 03/26/2025 2:11 PM EDT - Continue taking your aspirin 81 mg tablet once daily for stroke prevention. - Take your atorvastatin (cholesterol medication) once daily to help protect your blood vessels and keep your LDL ( bad ) cholesterol below 70 mg/dL. - Wear the cardiac (heart) monitor for the full prescribed period (14-30 days). Return the device promptly when finished and have the results sent here for review. - Monitor your blood pressure at home and aim for readings below 140/90 mmHg. Share any high readings with your primary care provider and we will review them at your next visit. - A records?release form has been signed so we can obtain your recent TIA workup (CTA of the head/neck, MRI, echocardiogram) from [facility]. - Follow up here in about three months to discuss how you re doing, review any new or recurring symptoms, and go over your test results. If you experience another episode before then, seek care promptly. - Continue your routine annual check-ups and labs with your primary care provider to manage your cholesterol, blood pressure, and overall health. documented in this encounter [facility] 03-26-2025 History of Present illness Narrative [facility] Neurologic Crozier New Patient Evaluation CHIEF COMPLAINT: TIA Shira Merritt is a 84 year old accompanied by her son Camron. Consult was requested by self for an opinion regarding above CC. My final impression and recommendations will be communicated back to the requesting physician by way of the shared medical record or fax. March 25, 2025 HPI: Ms. Merritt presents today secondary to issues of TIA. [place] like she was on a roller coaster. Had a minor headache. The longer it goes the worse it gets. Has had a couple times in the past. Has come and gone. 4-5 years ago was first episode. Can go months without episode. Then suddenly returns without trigger. Can be reading or watching TV. Doesn't happen with a position change or movement. Usually all present in the same manner. Starts with a mild headache. If she takes an ASA sometimes sx improve. But if not she will then become weak in the knees and then feels like she is on a roller coaster. Feels she could maybe pass out. Usually subside within 24 hours. Never longer. MATTHEWS goes away at the same time. Doesn't always have a headache with sx. Has been at least once per year. States she always attributed this to when the trees start budding; thought allergies. Sometimes headaches with "allergy alerts." Takes ASA for these. No spinning. No double vision. No speech changes. No unilateral weakness. No loss of sensation. MATTHEWS never becomes more severe. Most recent episode was Mothers day weekend. Happened suddenly. Went to the ED. Was admitted. States arms and legs felt heavy at that time; bilateral. After episode was over she felt like something was holding her down. States she had an XR and CT scan. Unsure exactly what testing she had. Was admitted for two days. States she doesnot know if she had an MRI. Maybe had one the next day. States she doesn't think it showed anything to be worried about. She has been taking ASA 81mg for many years. Does not take cholesterol medication. No BP medication. Plavix is listed in chart but she does not take it. When looking at her medication list she has a prescription for atorvastatin. States she just got this from the hospital recently. Does not take BP medication. States it is high today d/t walking and being in the hospital. No migraine hx. Unsure about family migraine hx. Unsure about paternal neuro hx. Per ENT on 02/23/2005: She has had headaches throughout most of her life, as well as some migraine type features, including eye changes and migraine type pain and pressure. 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 We feel as though this has probably been there for some time now and does not appear to be destructive in nature. It certainly does not explain her visual changes and/or general head pressure and pain. We feel this is likely a headache type variant, which we should initially attempt to treat before making a definitive decision about resection of a lyle apex lesion. RECOMMENDATIONS: 1. Referral to Headache Clinic, either here or closer to home for trial of medications to treat her headaches. 2. Again, no sinusitis was noted, therefore would not recommend she be treated with antibiotics for this problem. 3. Followup of her lyle apex lesion after her headache workup. No ear pain, ear hx, hearing loss, tinnitus. Last eye appt was 2 years ago. Alcohol: Denies Tobacco: Denies Drug: Denies No past medical history on file. No past surgical history on file. Current Outpatient Medications on File Prior to Visit Medication Sig TOPROL XL 25 MG ORAL TB24 (Patient not taking: Reported on 02/19/2024) No current facility-administered medications on file prior to visit. Social History Tobacco Use Smoking status: Never Smokeless tobacco: Never ALLERGIES Allergen Reactions Sulfa (Sulfonamide * Review of Systems: Constitutional: denies fever, weight loss, loss of appetite ENT: denies loss of hearing, + vertigo Vision: denies blurring vison, double vision/diplopia Dermatologic: denies rash Cardiopulmonary: denies chest pain, palpitations Respiratory: denies shortness of breath GI: denies recent diarrhea, constipation : denies incontinence Musculoskeletal: denies weakness Back/spine: denies low back or cervical pains (occasionally) Neuro: denies tremors, loss of feeling, dizziness, seizure, blackout, paresthesia, facial paresthesia, facial weakness, difficulty in speech, slurring of words, dysarthria, dysphagia, memory loss, headache Physical Exam: 03/26/25 1321 BP: 160/82 BP Site: Left Arm BP Position: Sitting BP Cuff Size: Regular Adult Pulse: 69 Resp: 16 SpO2: 97% Patient is alert and in no distress. Dress is appropriate. Mood is appropriate Breathing appears regular and unstressed Neurologic examination: Cognitively intact. No deficits. No formal MOCA performed. CN: Pupils equal and reactive to light, extraocular movements intact with no nystagmus, face is symmetric with no facial droop, facial sensation intact bilaterally to light touch. V1-3, hearing intact bilaterally, symmetric evaluation of the soft palate, tongue is midline with no deviation, shoulder shrug is symmetric. Motor Examination: Right Upper Extremity: (of 5) Left Upper Extremity: (of 5) Shoulder Abduction: Deltoid (Ax/C5) 5 Shoulder Abduction 5 Elbow Flexion: Biceps (MC/R and C5/6) 5 Elbow Flexion 5 Elbow Extension: Triceps (R/C7) 5 Elbow Extension 5 Wrist Flexion (M/U and C6/7) 5 Wrist Flexion 5 Wrist Extension (R/C6) 5 Wrist Extension 5 Finger Abduction (U/T1) 5 Finger Abduction 5 Grinding Machine Operator Automatic 5 Grinding Machine Operator Automatic 5 Right Lower Extremity: (of 5) Left Lower Extremity: (of 5) Hip Flexion: Iliopsoas (F and L1/2) 5 Hip Flexion 5 Knee Extension: Quadriceps (F and L3/4) 5 Knee Extension 5 Knee Flexion: Hamstrings (S/S1) 5 Knee Flexion 5 Dorsiflexion: Tibialis Anterior (DP and L4/5) 5 Dorsiflexion 5 Plantarflexion: Gastrocnemius/Soleus (T and S1/2) 5 Plantarflexion 5 Reflexes: Right Extremities Left Extremities: Triceps (C7-8R) 2 Triceps 2 Biceps (C5-6MC) 2 Biceps 2 Brachioradialis (C5-6R) 2 Brachioradialis 2 Patellar (L3-4F) 2 Patellar 2 Achilles (S1-2S) 2 Achilles 2 Ankle Clonus: negative bilaterally Valentin's: negative bilaterally Sensory Intact to light touch upper and lower extremities bilaterally Temperature: intact in all extremities Normal toe and finger vibratory sensation Coordination: No dysmetria on finger to nose. No tremors noted. No drift seen. Gait normal in stance and pattern. Tandem without imbalance. Labs/studies: No relevant labs/studies available for review. Assessment/Plan: 1. Dizziness (R42) TIA (transient ischemic attack) (G45.9) Comment: Pt presents today for hospital follow up (recent [facility] admission). She reports a hx of recurrent episodes of dizziness, described as a "roller coaster" sensation, accompanied by mild headaches and a generalized feeling of heaviness throughout extremities. Symptoms have been occurring intermittently for approximately 4-5 years, with episodes roughly once per year lasting less than 24 hours. Recent episode on Mother's Day weekend led to hospitalization at [facility], where CT and MRI were reportedly performed (hospital records not available for review at time of appt today). Per pt report she was diagnosed with TIA. She is currently taking ASA 81 mg daily and was recently started on atorvastatin 40mg during hospitalization. She is wearing a 30 day monitor at time of appt today. It is uncertain if echocardiogram was completed. Given brief duration of sx without trigger would still consider TIA in ddx. However, pt also reports headache at onset of most episodes and could consider headache with vestibular features (as pt is noted to have migrainous features on past chart review) vs peripheral etiology as well. At this time will proceed with plan as follows below: - Continue Aspirin 81 mg daily and atorvastatin 40mg as prescribed for stroke prevention. - Obtain medical records from [facility] to review imaging and test results, including CT, MRI, and any echocardiogram or ultrasound studies. - Complete supervisor bleach plant as ordered by [place] [facility]ology. Would ask that results are sent to the office as well. - Continue to monitor BP with goal <140/90. - Follow up in 3 months to review test results and monitor for recurrence of symptoms. Pt would prefer to follow up in [place] as it is closer to home and discussed that she may schedule with Khadijah Townsend PA-C or Dr. Cheema. No orders found for this visit on 03/26/25. Sahara Amaral APRN.GABRIEL I spent a total of 55 minutes on the date of the service which included preparing to see the patient, [id number] patient care, completing clinical documentation, obtaining and/or reviewing separately obtained history, performing a medically appropriate examination, counseling and educating the patient/family/caregiver, and ordering medications, tests, or procedures. Portions of this note were created with electronic dictation and errors in spelling, syntax, and meaning may have occurred. documented in this encounter [facility] 03-26-2025 Note HNO ID: [id number] Author: SAHARA AMARAL APRN.GABRIEL Service: ? Author Type: Nurse Practitioner Type: Progress Notes Filed: 03/26/2025 15:51 Note Text: [facility] Neurologic Cro[facility] New Patient Evaluation CHIEF COMPLAINT: TIA Shira Merritt is a 84 year old accompanied by her son Camron. Consult was requested by self for an opinion regarding above CC. My final impression and recommendations will be communicated back to the requesting physician by way of the shared medical record or fax. March 25, 2025 HPI: Ms. Merritt presents today secondary to issues of TIA. [place] like she was on a roller coaster. Had a minor headache. The longer it goes the worse it gets. Has had a couple times in the past. Has come and gone. 4-5 years ago was first episode. Can go months without episode. Then suddenly returns without trigger. Can be reading or watching TV. Doesn't happen with a position change or movement. Usually all present in the same manner. Starts with a mild headache. If she takes an ASA sometimes sx improve. But if not she will then become weak in the knees and then feels like she is on a roller coaster. Feels she could maybe pass out. Usually subside within 24 hours. Never longer. MATTHEWS goes away at the same time. Doesn't always have a headache with sx. Has been at least once per year. States she always attributed this to when the trees start budding; thought allergies. Sometimes headaches with "allergy alerts." Takes ASA for these. No spinning. No double vision. No speech changes. No unilateral weakness. No loss of sensation. MATTHEWS never becomes more severe. Most recent episode was Mothers weekend. Happened suddenly. Went to the ED. Was admitted. States arms and legs felt heavy at that time; bilateral. After episode was over she felt like something was holding her down. States she had an XR and CT scan. Unsure exactly what testing she had. Was admitted for two days. States she doesnot know if she had an MRI. Maybe had one the next day. States she doesn't think it showed anything to be worried about. She has been taking ASA 81mg for many years. Does not take cholesterol medication. No BP medication. Plavix is listed in chart but she does not take it. When looking at her medication list she has a prescription for atorvastatin. States she just got this from the hospital recently. Does not take BP medication. States it is high today d/t walking and being in the hospital. No migraine hx. Unsure about family migraine hx. Unsure about paternal neuro hx. Per ENT on 02/23/2005: She has had headaches throughout most of her life, as well as some migraine type features, including eye changes and migraine type pain and pressure. 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 We feel as though this has probably been there for some time now and does not appear to be destructive in nature. It certainly does not explain her visual changes and/or general head pressure and pain. We feel this is likely a headache type variant, which we should initially attempt to treat before making a definitive decision about resection of a lyle apex lesion. RECOMMENDATIONS: 1. Referral to Headache Clinic, either here or closer to home for trial of medications to treat her headaches. 2. Again, no sinusitis was noted, therefore would not recommend she be treated with antibiotics for this problem. 3. Followup of her lyle apex lesion after her headache workup. No ear pain, ear hx, hearing loss, tinnitus. Last eye appt was 2 years ago. Alcohol: Denies Tobacco: Denies Drug: Denies No past medical history on file. No past surgical history on file. Current Outpatient Medications on File Prior to Visit Medication Sig TOPROL XL 25 MG ORAL TB24 (Patient not taking: Reported on 02/19/2024) No current facility-administered medications on file prior to visit. Social History Tobacco Use Smoking status: Never Smokeless tobacco: Never ALLERGIES Allergen Reactions Sulfa (Sulfonamide * Review of Systems: Constitutional: denies fever, weight loss, loss of appetite ENT: denies loss of hearing, + vertigo Vision: denies blurring vison, double vision/diplopia Dermatologic: denies rash Cardiopulmonary: denies chest pain, palpitations Respiratory: denies shortness of breath GI: denies recent diarrhea, constipation : denies incontinence Musculoskeletal: denies weakness Back/spine: denies low back or cervical pains (occasionally) Neuro: denies tremors, loss of feeling, dizziness, seizure, blackout, paresthesia, facial paresthesia, facial weakness, difficulty in speech, slurring of words, dysarthria, dysphagia, memory loss, headache Physical Exam: 03/26/25 1321 BP: 160/82 BP Site: Left Arm BP Position: Sitting BP Cuff Size: Regular Adult Pulse: 69 Resp: 16 SpO2: 97% Patient is alert and in no distress. Dress is appropriate. Mood is appropriate (more content not included)... [facility] 02-19-2025 Discharge summary [facility] 02-19-2025 Note [facility] Medical Records Department [address] [place] [address] Discharge Summary 02/19/25 1210 MR#: [id number] Acct: [id number] Name: SHIRA MERRITT Rep #: [id number] : 1940 84 From: Chip Fulton MD PCP: IDALMIS Hollis Status:ADM COREY Location: [place] [address] Providers Date of Admission: 02/17/25 Date of Discharge: 02/19/25 Primary Care Physician: IDALMIS Hollis Consultations 02/17/25 15:10 Consult: Tele-Neurology Routine Consulting Provider: [facility] Reason for Consult: Acute Ischemic Stroke/TIA EMERGENT Consult: No MD Notified: Yes Date Notified: 02/17/25 Time Notified: 16:34 Method of Notification: Answering Service Nursing Unit Staff Notify [facility] of Tele-Neurology Consult: Yes Reason For Visit: CVA/TIA R/O Diagnosis Discharge Diagnosis (1) Neurologic abnormality: Status: Acute Code(s): R29.818 - Other symptoms and signs involving the nervous system (2) Thyroid nodule: Status: Acute Code(s): E04.1 - Nontoxic single thyroid nodule Plan 84-year-old female was admitted with mild confusion/decreased responsiveness along with left-sided weakness/numbness. Patient complained that her son noticed that she was looking strange, person herself felt heavy generalized and a little foggy. Her son reported that she was not responding therefore he called 911. Denies acute onset of confusion, disorientation, change in behavior or language dysarthria. She felt left-sided weakness. # Left leg and left upper extremity heaviness/numbness, most likely TIA, resolved.: Patient is being admitted in PCU. On exam, mild left lower extremity weakness. NIH stroke scale 0. PT, OT, speech therapy/swallow evaluation and management, nursing NIH stroke scale, BP and glucose monitoring and control as per stroke protocol. Lipid profile, TSH: Normal limit. A1c pending. MRI brain and 2D echo with bubble contrast study ordered -CT head w/ no acute process -CTA head and neck with no LVO -Teleneuro consult ordered -Hold BP medications to allow for permissive hypertension for 24 hours unless SBP greater than 220 or DBP greater than 120 or until stroke is ruled out 02/19: Patient is doing well. Left lower leg weakness resolved. Patient was evaluated by neurologist, Dr. Cullen and she thinks patient had TIA. Was given aspirin 81 and Plavix 70 mg and then continue aspirin 81 mg lifelong and Plavix 75 mg daily for 3 weeks. 30-day event monitor. On high intensity statin. Patient is being discharged. Blood pressure and heart rate in normal range. A1c 5.5%. # Thyroid nodule - 6 mm nodule within the right thyroid gland - TSH free T4 and free T3 all normal. - May need outpatient thyroid ultrasound # History of UC -On Stelara on an outpatient basis #DVT ppx: SCDs Discharge medication reconciliation done. Discharge follow-up instructions completed. Discharge process discussed with the patient and all questions were answered to patient's satisfaction. Follow with PCP in 1 to 2 weeks Total time spent, exact 35 minutes on discharge meds reconciliation, examination, coordination of care with nurses and ancillary staff, review of imaging and blood test and discussion with the patient on follow-up instructions. Medications at Discharge Home Medications ustekinumab 90 mg/mL subcutaneous syringe (Stelara) 90 mg subcut Q8W 12 months #1 mL 06/26/24 acetaminophen 500 mg capsule 1,000 mg PO Q6H PRN fever or pain 02/17/25 aspirin 81 mg chewable tablet 81 mg PO BREAKFAST 30 days #30 tabs 02/19/25 atorvastatin 40 mg tablet 40 mg PO QHS 30 days #30 tabs 02/19/25 clopidogrel 75 mg tablet 75 mg PO DAILY 21 days #21 tabs 02/19/25 Physical Exam Narrative Seen and examined. Patient is doing well. No acute complaint. Wants to go home. Physical exam General: Alert, Oriented x3, Cooperative HEENT: Atraumatic, PERRLA, EOMI, Normocephalic. Oral: No Gingival or Mucosal Lesions/ Ulcerations Neck: Supple, No JVD, Negative Carotid Bruits Chest wall/Lungs: Air entry diminished in bilateral lung bases. No crepitation/rhonchi Cardiovascular: Regular rate and rhythm, Normal S1,S2, soft systolic murmur Abdomen: Bowel Sounds Present, Soft, Non Tender, Non-Distended : No dysuria. No renal angle tenderness. No suprapubic tenderness. Extremities: No edema, Capillary Refill Less than 3 Seconds Skin: No rashes, No breakdown Musculoskeletal: LLE mildly weak at knee and hip joints, 4+/5. Rest all 3 extremities 5/5 at major joints. No Tenderness to Palpation of Joints or Extremities Neurological: Cranial nerves II-XII grossly intact, DTR 2+/4. NIH stroke scale 0. GCS 15 for Psych/Mental Status: Normal Affect, Appropriate. Weight / BMI Weight Weight: 110 lb 2.005 oz Body Mass Index (BMI) 18.8 ABG / Lab / Microbiology Data 02/18/25 05:27 02/18/25 05:27 Laboratory: (more content not included)... [facility] 02-19-2025 Discharge summary [facility] 02-19-2025 Discharge summary Note Date/Time February 19, 2025 12:07pm [facility] Medical Records Department [address] [place] [address] Instructions for Home/Discharge Instructions 02/19/25 0853 MR#: [id number] Acct: [id number] Name: SHIRA MERRITT Rep #:[id number] : 1940 84 From: Chip Obrien PCP: Varinder Phoenix, MANUFACTURING ACCOUNTANT-C Status:ADM COREY Discharge Instructions Diet Discharge Diet: 2000 mg Sodium Diet DC O2, CPAP, BIPAP needs Home O2 Discharge instructions: No Dressing / Incision Discharge Activity: Return to Normal Activity Weight Bearing Status: Weight bearing as tolerated Dressing / Incision Call your doctor if you observe: Fever of 101 or Higher, Coldness, Increased Pain, Numbness or Tingling, Change in Color, Inability to urinate, Inability to have a bowel movement, Shortness of breath, Dizziness, Fainting spells, Swellingin the ankles, Chest pain, Prolonged hiccupping, Increased palpitations (irregular heartbeat) and Calf discomfort Follow Up Care When: IN 2 WEEKS Test Results: Test results from this visit will be discussed in further detail at your follow-up appointment, if applicable. Discharge Plan Admission Admit Date/Time: 02/17/25 14:37 Primary Reason for Your Visit: Possible TIA Attending Provider: Chip Fulton Primary Care Provider: Varinder Phoenix [facility] Consulting Providers: Sandy Paige Discharge Orders/Prescriptions Prescriptions: New atorvastatin 40 mg Tablet 40 mg PO QHS 30 Days Qty: 30 2RF clopidogrel 75 mg Tablet 75 mg PO DAILY 21 Days Qty: 21 0RF aspirin 81 mg Tablet,Chewable 81 mg PO BREAKFAST 30 Days Qty: 30 3RF Continued acetaminophen 500 mg capsule 1,000 mg PO Q6H PRN (Reason: fever or pain) Stelara 90 mg/mL syringe 90 mg subcut Q8W 360 Days Qty: 1 6RF Rx Instructions: Inject one syringe SQ every 8 weeks starting 8 weeks after induction infusion. Other Ambulatory Orders: 30 Day Event Recorder Preventi (Urgent) Timeframe: 1 Day Facility: [facility] - Location: Cardiovascular Services Ordered By: Dr. Chip Fulton Referrals / Follow Up: Dinh Dubose MD [Non-Staff -Ordering Privileges] - Within 1 Month (For clinical suspicion of TIA) Varinder Phoenix NP-Roxanne [Primary Care Provider] - Disposition Disposition (needs filled in before D/C Order can be placed): Home, Self Care 02/19/25 1210<Electronically signed by Chip Fulton MD>Chip Fulton MD CC: MANUFACTURING ACCOUNTANT-C Varinder Phoenix; Dr. Sandy Paige MD ~ Signed [facility] Work Phone: [phone]) 757-268205-12-2025 Consult note Author Amanda Cullen [facility] Note Date/Time February 18, 2025 5:55p m [facility] Medical Records Department [address] [place] [address] Consultation - Neurology 02/18/25 1410 MR#: [id number] Acct: [id number] Name: SHIRA MERRITT Rep #:[id number] : 1940 84 From: Amanda Cullen MD PCP: IDALMIS Hollis Status:ADM COREY Location: [place] [address] Assessment and Plan: Neuro Assessment/Plan SHIRA MERRITT is a 84 F with a past medical history of UC, being evaluated by Teleneurology for transient confusion and L leg weakness, largely resolved. Imaging is benign, the clinical history is suggestive of TIA at this time Diagnosis: TIA Plan: - Anti-platelet medication: Plavix 300mg now, then [id number] + Plavix 75mg daily for 21 days, then Aspirin 81 mg daily only thereafter - Occupational/ Physical therapy consults - SBP goal normotensive< 140/80 - DVT prophylaxis with SCDs and heparin SQ - Vascular risk factor modification. The following are the recommended guidelines: LDL Goal < 70 agree with lipitor 40mg as LDL 108, A1C 5.5 Smoking Cessation Diabetes Management half-way blood pressure control should achieve <130/80 mmHg. BP managementshould aim to achieve residential contorl in a reasonable amount of time, taking into consideration the individual patient's requirements and characteristics. Weight Management: Goal for BMI is 18.5 -24.9 kg/m2 Alcohol: No more than 2 drinks/day for men or 1 drink/day for non- women - Promote lifestyle modification: weight control, physical activity, moderation of alcohol intake, moderate sodium intake. Followup with PCP in 1-2 weeks, and in Neurology clinic in 6-12 weeks I personally attended this patient and spent a total time of 45minutes evaluating this patient including clinical assessment, review of chart, medical history imaging, and determining appropriate treatment and workup. HPI Consult Data Date of Consult: 02/18/25 HPI Narrative HPI Narrative: SHIRA MERRITT, is an 84y/o F w/ hx of who presented to [facility] ED 02/17/25 d/t weakness and AMS. Pt woke up earlier and got out of bed, she remembers sitting on the couch and at some point felt heavy all over and a little foggy. Son reported she was not responding so he called 911. Patient reports feeling completely fine now. Son reported that when patient got up this morning she went from her bathroom to the living room and looked like she was wobbly and offbalance and was holding onto things, he asked if she needed to go to the hospital and she said no but when she sat down she put her head in her hands andlooked like she was falling over. Son was yelling at her and she was not responding so he called 911. By the time EMS arrived she felt better. Reportedly this has happened before and usually occurs in the morning right after she gets out of bed but this is the worst that it has happened. Between patient getting to the ED and evaluation she developed left lower extremity weakness and felt her left arm was heavy, her repeat NIH was 2 so there was a stroke on the ED. TNK was not indicated, workup thus far unremarkable with negative CTA and negative CT brain. Vitals in the ED with temp 97.6, heart rateof 60 and blood pressure 165/58, pulse ox 99% on room air. Teleneurology recommended admission for stroke rule out. Hospitalist contacted for admission. Patient evaluated at bedside with sons present, patient irritable and seems to get irritated with questioning. Summarized the history as above and she and family bedside report that that is accurate. Patient notes that she did developthe left lower extremity and arm heaviness since she has been here, when asked if it is improved she said she has been moving so she does not know, possibly seems that the weakness has been improving, still feels some left lower extremity heaviness but not as much overt weakness. Does report headaches, and/or she has a headache right now though just because she has not had her coffee or food and that headaches are not uncommon for her during the summer. ROS otherwise negative at this time Neurologic History Pt felt heavy all over and foggy. This has happened in the past - she will get lightheaded if she gets up really quickly. Pt was trying to get up from the couch when this occurred. Pt denies losing consciousness. Patient also had L legweakness. There was also numbness of the L leg.Pt feelsl veronica her head is swollenbut no pain. Currently the L leg is slowly getting back to normal. Son saw the event, she was leaned down with head in her hand. After she came to and got a litle better, son did not notice facial droop or slurred speech. No other symptoms, nothing else like this ever happened. -? General: Laying comfortably in bed; in no acute distress. -? HENT: Normal oropharynx and mucosa. Normal external appearance of ears and nose. Exophthalmos. -? Neck: Supple, no pain or tenderness -? CV:? No peripheral edema. -? Pulmonary:? Normal respiratory effort. -? Ext: No cyanosis, edema, or deformity -? Skin: No rash. Normal palpation of skin.? -? Musculoskeletal: full range of motion; no joint tenderness. Normal digits and nails by inspection. No clubbing. -? NEURO: -? Mental Status: The patient was alert and oriented to time, place, andperson. Normal recent/remote memory, concentration, and general fund of knowledge. -? Language: speech is clear.? Naming, repetition, fluency, and comprehension intact. -? Cranial Nerves: PERRL 3mm/brisk. EOMI, visual fay full, no facial asymmetry, facial sensation intact, hearing intact, tongue midline, no evidence of atrophy or fibrillations. -? Motor: normal bulk, tone, and strength throughout. No pronator drift or satelliting. Upper and lower extremities equal bilaterally. -? 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 Tone: is normal and bulk is normal -? Sensation- Intact to light touch bilaterally -? Coordination: No dysmetria on [id number], finger follow finger or [id number]. -? Gait- deferred FOR[facility], [facility] Medical History Osteoarthritis Right anterior knee pain History of colon cancer Chronic anemia Ulcerative colitis C. difficile colitis Ulcerative colitis Severe malnutrition Cataract Arthritis Seasonal allergies History of colon cancer Home Medications ?Medication ?Instructions ?Recorded ?Last Taken ?Type ustekinumab 90 mg/mL subcutaneous 90 mg subcut Q8W 12 months #1 mL 06/26/24 02/04/25 Rx syringe (Stelara) acetaminophen 500 mg capsule 1,000 mg PO Q6H PRN fever or pain 02/17/25 02/15/25 History Allergy/AdvReac Type Severity Reaction Status Date / Time Sulfa (Sulfonamide Allergy Rash Verified 02/17/25 10:40 Antibiotics) amoxicillin (From Augmentin) AdvReac Vomiting Verified 02/17/25 10:40 clavulanic acid (From AdvReac Vomiting Verified 02/17/25 10:40 Augmentin) fexofenadine (From Rose) AdvReac Other Verified 02/17/25 10:40 hydrocodone AdvReac "out of it" Verified 02/17/25 10:40 Family History Mother No problems noted. Grandmother Arthritis Grandfather Arthritis Other Heart disease Surgical History History of appendectomy History of cholecystectomy H/O breast biopsy Surgical history of tubal ligation S/P partial colectomy S/P cholecystectomy Social History household members: family housing: house Smoking Status: Never smoker alcohol intake: never substance use type: does not use what type of physical activity do you participate in: walking frequency: daily Vital Signs Vital Signs Vital Signs: 02/17/25 14:30 02/17/25 14:56 02/17/25 15:22 Temperature 98.0 F 97.6 F L Temperature Source Oral Pulse Rate 63 63 73 Respiratory Rate 16 16 16 Respiratory Effort Respiratory Depth Respiratory Pattern Blood Pressure 138/59 H 149/64 H 133/78 H Blood Pressure Mean 85 92 96 Blood Pressure Source Monitor Blood Pressure Position Sitting Blood Pressure Location Right Arm Pulse Ox 97 97 98 Oxygen Delivery Method Room Air Room Air 02/17/25 18:30 02/17/25 21:41 02/17/25 21:41 Temperature 97.8 F 98.3 F Temperature Source Oral Oral Pulse Rate 69 63 Respiratory Rate 16 14 Respiratory Effort Normal Non-Labored Respiratory Depth Normal Respiratory Pattern Normal Blood Pressure 142/71 H 121/72 H Blood Pressure Mean 94 88 Blood Pressure Source Monitor Monitor Blood Pressure Position Semi-Fowlers Semi-Fowlers Blood Pressure Location Right Arm Left Arm Pulse Ox 98 98 Oxygen Delivery Method Room Air Room Air 02/17/25 21:55 02/18/25 02:00 02/18/25 03:00 Temperature 98.3 F 97.2 F L Temperature Source Oral Temporal Pulse Rate 63 59 L Respiratory Rate 14 13 Respiratory Effort Normal Non-Labored Respiratory Depth Normal Respiratory Pattern Normal Blood Pressure 121/72 H 116/69 Blood Pressure Mean 88 84 Blood Pressure Source Monitor Monitor Blood Pressure Position Semi-Fowlers Semi-Fowlers Blood Pressure Location Left Arm Right Arm Pulse Ox 98 96 Oxygen Delivery Method Room Air Room Air Room Air 02/18/25 05:04 02/18/25 06:00 02/18/25 07:32 Temperature 97 F L 97.8 F Temperature Source Temporal Oral Pulse Rate 64 60 Respiratory Rate 12 14 Respiratory Effort Respiratory Depth Respiratory Pattern Blood Pressure 129/63 H 131/74 H Blood Pressure Mean 85 93 Blood Pressure Source Monitor Monitor Blood Pressure Position Semi-Fowlers Semi-Fowlers Blood Pressure Location Right Arm Right Arm Pulse Ox 96 96 97 Oxygen Delivery Method Room Air Room Air Room Air 02/18/25 07:35 02/18/25 08:20 02/18/25 11:30 Temperature 98 F Temperature Source Oral Pulse Rate 70 Respiratory Rate 16 Respiratory Effort Normal Non-Labored Respiratory Depth Normal Respiratory Pattern Normal Blood Pressure 123/69 H Blood Pressure Mean 87 Blood Pressure Source Monitor Blood Pressure Position Semi-Fowlers Blood Pressure Location Right Arm Pulse Ox 96 97 Oxygen Delivery Method Room Air Room Air Room Air 02/18/25 12:20 Temperature Temperature Source Pulse Rate Respiratory Rate Respiratory Effort Respiratory Depth Respiratory Pattern Blood Pressure Blood Pressure Mean Blood Pressure Source Blood Pressure Position Blood Pressure Location Pulse Ox 97 Oxygen Delivery Method Weight Weight: 49.952 kg Body Mass Index (BMI) 18.8 EEG Results Procedure Details EEG Procedure Details: SHIRA MERRITT is a 84 year old F with a past medical history of , who presentsfor evaluation of Electroencephalogram on DATE at TIME Lab / Micro Data 02/18/25 05:27 02/18/25 05:27 Labs: Laboratory Results - last 24 hr 02/17/25 15:40: Troponin T Hi Sens 4Hr < 6 02/18/25 05:27: WBC 8.7, RBC 5.07, Hgb 14.9, Hct 45.4, MCV 89.5, MCH 29.4, MCHC 32.8, RDW Std Deviation 44.3 H, RDW Coeff of Rhonda 13.5, Plt Count 173, MPV 12.2 H, Immature Gran % (Auto) 0.100, Neut % (Auto) 53.2, Lymph % (Auto) 35.7, Medina % (Auto) 7.7, Eos % (Auto) 1.7, Baso % (Auto) 1.6 H, Absolute Neuts (auto) 4.6, Absolute Lymphs (auto) 3.10, Nucleated RBC % 0, Sodium 140, Potassium 4.0, Chloride 106, Carbon Dioxide 23.3, Anion Gap 11, BUN 12, Creatinine 0.87, Estim Creat Clear Calc 38.64 L, Est GFR (MDRD) Non-Af 66, BUN/Creatinine Ratio 14.1, Glucose 93, Hemoglobin A1c 5.5, Calcium 8.9, Triglycerides 61, Cholesterol 182, LDL Cholesterol, Calc 108, VLDL Cholesterol 12, HDL Cholesterol 62, Cholesterol/HDL Ratio 2.94, TSH 1.640, Free T4 1.10, Free T3 pg/dL 3.3 Rhythm Strip Rhythm Strip: Sinus Rhythm Rate: 60 Ectopy: None Imaging Radiology Impression Head/Neck CTA 02/17/25 12:32 IMPRESSION: No large vessel occlusion or high grade stenosis within the intracranial or neckarterial vasculature. Reading Location: [facility] Active Medications Active Medications Active Medications: Current Medications Generic Name Dose Route Start Last Admin Trade Name Freq PRN Reason Stop Dose Admin Acetaminophen 650 mg 02/17/25 15:10 Acetaminophen 325 Mg Tablet PO Q6H PRN PRN Pain 1-10 Or Fever >100.7 Albuterol Sulfate 2.5 mg 02/17/25 15:10 Albuterol 2.5 Mg/3 Ml Vial.Neb. INHALATION Q2H PRN PRN SOB &/OR WHEEZING Aspirin 81 mg 02/18/25 08:00 02/18/25 08:42 Aspirin 81 Mg Tab.Chew PO 81 mg BREAKFAST ROBERTO Administration Atorvastatin Calcium 40 mg 02/17/25 22:00 02/17/25 21:30 Atorvastatin Calcium 40 Mg Tablet PO 40 mg QHS ROBERTO Administration Hydralazine HCl 5 mg 02/17/25 15:10 Hydralazine 20 Mg/Ml Vial IV 02/18/25 15:10 Q30M PRN maintain BP parameters with HR <60 Sodium Chloride 250 mls @ 15 mls/hr 02/17/25 15:28 IV .[id number] PRN Saline Flush Sodium Chloride 250 mls @ 15 mls/hr 02/17/25 15:28 IV .[id number] PRN Additional IVPB Infusion Labetalol HCl 10 - 20 mg 02/17/25 15:10 Labetalol 20mg/4ml Syringe IV 02/18/25 15:10 Q10M PRN PRN maintain BP parameters with HR >/=60 Melatonin 3 mg 02/17/25 15:10 Melatonin 3 Mg Tablet PO QHS PRN PRN INSOMNIA Ondansetron HCl 4 mg 02/17/25 15:10 02/18/25 04:58 Ondansetron 4 Mg/2 Ml Vial IV 4 mg Q8H PRN PRN Administration NAUSEA/VOMITING Senna/Docusate Sodium 2 tablet 02/17/25 15:10 Senna/Docusate Sodium 1 Tablet PO BID PRN PRN Constipation Sodium Chloride 10 - 40 ml 02/17/25 15:28 02/18/25 04:59 0.9% Saline Lock 10 Ml Syringe IV 10 ml UD PRN Administration SALINE FLUSH NIHSS NIHSS Nursing Documentation NIHSS Nursing Documentation: NIHSS: Ischemic Stroke/TIA Start: 02/17/25 15:10 Text: For PCU Patients: NIH and Neuro Check every 4 Status: Active hours, PRN and with change in RN caregiver. Freq: [id number] Protocol: Activity Type Activity Date Activity User E-sign Co-sign Detail Recorded Client Recorded Date Recorded By Document 02/18/25 11:30 DS [id number] 02/18/25 12:03 DS 02/18/25 11:30 NIH Stroke Scale [NIHSS] A score of 0 is "normal" or asymptomatic . Total possible score is 42. Inpatient: RN or Physician to activate a stroke alert for onset of new stroke symptoms or with NIHSS increase >/= 3 points. Following change in neurological status, NIHSS will be performed per physician order or more frequently PRN. -1a. Level of Consciousness 0 - Alert; keenly responsive -1b. LOC Questions 0 - Answers BOTH questions correctly -1c. LOC Commands 0 - Performs BOTH tasks correctly -2. Best Gaze 0 - Normal -3. Visual 0 - No visual loss -4. Facial Palsy 0 - Normal symmetrical movements -5a. Left Arm 0 - No drift; arm holds 90 ( or 45) degrees for full 10 seconds -5b. Right Arm 0 - No drift; arm holds 90 ( or 45) degrees for full 10 seconds -6a. Left Leg 0 - No drift; leg holds 30- degree position for full 5 seconds -6b. Right Leg 0 - No drift; leg holds 30- degree position for full 5 seconds -7. Limb Ataxia 0 - Absent -8. Sensory 0 - Normal; no sensory loss -9. Best Language 0 - No aphasia; normal -10. Dysarthria 0 - Normal -11. Extinction and Inattention 0 - No abnormality -Total 0 Query Text:A score of 0 is "normal" or asymptomatic. Total possible score is 42 . ED: Notify Physician for NIHSS increase by > / = 3 points. Inpatient: RN or Physician to activate a stroke alert for NIHSS increase of > / = 3 points. Coma Scale [Assess] -Eye Opening Spontaneous -Motor Obeys Commands -Verbal Oriented [Total] -Coma Scale Total 15 NIHSS 1a. Level of Consciousness: 0 - Alert; keenly responsive 1b. LOC Questions: 0 - Answers BOTH questions correctly 1c. LOC Commands: 0 - Performs BOTH tasks correctly 2. Best Gaze: 0 - Normal 3. Visual: 0 - No visual loss 4. Facial Palsy: 0 - Normal symmetrical movements 5a. Left Arm: 0 - No drift; arm holds 90 (or 45) degrees for full 10 seconds 5b. Right Arm: 0 - No drift; arm holds 90 (or 45) degrees for full 10 seconds 6a. Left Le - No drift; leg holds 30-degree position for full 5 seconds 6b. Right Le - No drift; leg holds 30-degree position for full 5 seconds 7. Limb Ataxia: 0 - Absent 8. Sensory: 0 - Normal; no sensory loss 9. Best Language: 0 - No aphasia; normal 10. Dysarthria: 0 - Normal 11. Extinction and Inattention: 0 - No abnormality Total: 0 02/18/25 1755 <Electronically signed by Amanda Cullen MD> Cosigner Signature (if applicable): CC: IDALMIS [place]; Dr. Sandy Paige MD~ Signed [facility] Work Phone: 1(158) 942-905305-12-2025 Progress note Author Chipteofilo Fulton [facility] Note Date/Time February 18, 2025 4:00p m [facility] Medical Records Department [address] [place] [address] Progress Note - Hospitalist 02/18/25 1110 MR#: [id number] Acct: [id number] Name: SHIRA MERRITT Rep #:[id number] : 1940 84 From: Chip Obrien PCP: IDALMIS Hollis Status:ADM COREY Location: [place] [address] Reason for Visit Reason for Visit: Diagnoses Nontoxic single thyroid nodule (02/17/25) Other symptoms and signs involving the nervous system (02/17/25) Objective Data Objective Data Vital Signs: Vital Signs Temp Pulse Resp BP Pulse Ox O2 Del Method 97.8 F 60 14 131/74 H 96 Room Air 02/18/25 07:32 02/18/25 07:32 02/18/25 07:32 02/18/25 07:32 02/18/25 08:20 02/18/25 08:20 Oxygen Delivery Method Room Air Weight: 110 lb 2.005 oz Body Mass Index (BMI) 18.8 Intake & Output: Intake and Output for Last 24 Hours 02/16/25 02/17/25 02/18/25 23:59 23:59 23:59 Intake Total 480 / 480 Balance 480 / 480 Lab / Micro Data 02/18/25 05:27 02/18/25 05:27 Labs: Laboratory Results - last 24 hr 02/17/25 11:00: WBC 9.1, RBC 5.43 H, Hgb 15.9 H, Hct 48.6 H, MCV 89.5, MCH 29.3,MCHC 32.7, RDW Std Deviation 44.0 H, RDW Coeff of Rhonda 13.5, Plt Count 165, MPV 11.9, Immature Gran % (Auto) 0.300, Neut % (Auto) 64.2, Lymph % (Auto) 28.2, Medina % (Auto) 5.3, Eos % (Auto) 0.7, Baso % (Auto) 1.3 H, Absolute Neuts (auto) 5.8, Absolute Lymphs (auto) 2.56, Nucleated RBC % 0, Reactive Lymphocytes 3+, Sodium 141, Potassium 4.3, Chloride 106, Carbon Dioxide 24.6, Anion Gap 11, BUN 13, Creatinine 0.94, Estim Creat Clear Calc 37.65 L, Est GFR (MDRD) Non-Af 60, BUN/Creatinine Ratio 14.3, Glucose 91, Calcium 9.0, Total Bilirubin 0.61, AST 19, ALT 9, Alkaline Phosphatase 92, Troponin T High Sens < 6, Total Protein 6.7,Albumin 4.0, Globulin 2.8, Albumin/Globulin Ratio 1.4 02/17/25 13:06: Troponin T Hi Sens 2 Hr < 6 02/17/25 15:40: Troponin T Hi Sens 4Hr < 6 02/18/25 05:27: WBC 8.7, RBC 5.07, Hgb 14.9, Hct 45.4, MCV 89.5, MCH 29.4, MCHC 32.8, RDW Std Deviation 44.3 H, RDW Coeff of Rhonda 13.5, Plt Count 173, MPV 12.2 H, Immature Gran % (Auto) 0.100, Neut % (Auto) 53.2, Lymph % (Auto) 35.7, Medina % (Auto) 7.7, Eos % (Auto) 1.7, Baso % (Auto) 1.6 H, Absolute Neuts (auto) 4.6, Absolute Lymphs (auto) 3.10, Nucleated RBC % 0, Sodium 140, Potassium 4.0, Chloride 106, Carbon Dioxide 23.3, Anion Gap 11, BUN 12, Creatinine 0.87, Estim Creat Clear Calc 38.64 L, Est GFR (MDRD) Non-Af 66, BUN/Creatinine Ratio 14.1, Glucose 93, Calcium 8.9, Triglycerides 61, Cholesterol 182, LDL Cholesterol, Calc 108, VLDL Cholesterol 12, HDL [id number], Cholesterol/HDL Ratio 2.94, TSH 1.640, Free T4 1.10, Free T3 pg/dL 3.3 Radiography Diagnostic Testing: Radiology Impression Brain CT 02/17/25 10:45 IMPRESSION: NO ACUTE FINDINGS. [facility] Chest X-Ray 02/17/25 10:46 IMPRESSION: No focal consolidations Reading Location: [facility] Head/Neck CTA 02/17/25 12:32 IMPRESSION: No large vessel occlusion or high grade stenosis within the intracranial or neckarterial vasculature. Reading Location: [facility] Rhythm Strip Rhythm Strip: Sinus Rhythm Rate: 60 Ectopy: None Physical Exam Narrative Seen and examined. Patient complained that her son noticed that she was looking strange, person herself felt heavy generalized and a little foggy. Her son reported that she was not responding therefore he called 911. Denies acute onset of confusion, disorientation, change in behavior or language dysarthria. She felt left-sided weakness. Physical exam General: Alert, Oriented x3, Cooperative HEENT: Atraumatic, PERRLA, EOMI, Normocephalic. Oral: No Gingival or Mucosal Lesions/ Ulcerations Neck: Supple, No JVD, Negative Carotid Bruits Chest wall/Lungs: Air entry diminished in bilateral lung bases. No crepitation/rhonchi Cardiovascular: Regular rate and rhythm, Normal S1,S2, soft systolic murmur Abdomen: Bowel Sounds Present, Soft, Non Tender, Non-Distended : No dysuria. No renal angle tenderness. No suprapubic tenderness. Extremities: No edema, Capillary Refill Less than 3 Seconds Skin: No rashes, No breakdown Musculoskeletal: LLE mildly weak at knee and hip joints, 4+/5. Rest all 3 extremities 5/5 at major joints. No Tenderness to Palpation of Joints or Extremities Neurological: Cranial nerves II-XII grossly intact, DTR 2+/4. NIH stroke scale 0. GCS 15 for Psych/Mental Status: Normal Affect, Appropriate. Assessment & Plan Assessment/Plan (1) Neurologic abnormality: (2) Thyroid nodule: PLAN: Plan 84-year-old female was admitted with mild confusion/decreased responsiveness along with left-sided weakness/numbness # Left leg and left upper extremity heaviness/numbness: Patient is being admitted in PCU. On exam, mild left lower extremity weakness. NIH stroke scale0. PT, OT, speech therapy/swallow evaluation and management, nursing NIH stroke scale, BP and glucose monitoring and control as per stroke protocol. Lipid profile, TSH: Normal limit. A1c pending. MRI brain and 2D echo with bubble contrast study ordered -CT head w/ no acute process -CTA head and neck with no LVO -Teleneuro consult ordered -Hold BP medications to allow for permissive hypertension for 24 hours unless SBP greater than 220 or DBP greater than 120 or until stroke is ruled out # Thyroid nodule - 6 mm nodule within the right thyroid gland - TSH free T4 and free T3 all normal. - May need outpatient thyroid ultrasound # History of UC -On Stelara on an outpatient basis #DVT ppx: SCDs NIHSS NIHSS Nursing Documentation NIHSS Nursing Documentation: NIHSS: Ischemic Stroke/TIA Start: 02/17/25 15:10 Text: For PCU Patients: NIH and Neuro Check every 4 Status: Active hours, PRN and with change in RN caregiver. Freq: [id number] Protocol: Activity Type Activity Date Activity User E-sign Co-sign Detail Recorded Client Recorded Date Recorded By Document 02/18/25 07:23 DS [id number] 02/18/25 07:25 DS 02/18/25 07:23 NIH Stroke Scale [NIHSS] A score of 0 is "normal" or asymptomatic . Total possible score is 42. Inpatient: RN or Physician to activate a stroke alert for onset of new stroke symptoms or with NIHSS increase >/= 3 points. Following change in neurological status, NIHSS will be performed per physician order or more frequently PRN. -1a. Level of Consciousness 0 - Alert; keenly responsive -1b. LOC Questions 0 - Answers BOTH questions correctly -1c. LOC Commands 0 - Performs BOTH tasks correctly -2. Best Gaze 0 - Normal -3. Visual 0 - No visual loss -4. Facial Palsy 0 - Normal symmetrical movements -5a. Left Arm 0 - No drift; arm holds 90 ( or 45) degrees for full 10 seconds -5b. Right Arm 0 - No drift; arm holds 90 ( or 45) degrees for full 10 seconds -6a. Left Leg 0 - No drift; leg holds 30- degree position for full 5 seconds -6b. Right Leg 0 - No drift; leg holds 30- degree position for full 5 seconds -7. Limb Ataxia 0 - Absent -8. Sensory 0 - Normal; no sensory loss -9. Best Language 0 - No aphasia; normal -10. Dysarthria 0 - Normal -11. Extinction and Inattention 0 - No abnormality -Total 0 Query Text:A score of 0 is "normal" or asymptomatic. Total possible score is 42 . ED: Notify Physician for NIHSS increase by > / = 3 points. Inpatient: RN or Physician to activate a stroke alert for NIHSS increase of > / = 3 points. Coma Scale [Assess] -Eye Opening Spontaneous -Motor Obeys Commands -Verbal Oriented [Total] -Coma Scale Total 15 02/18/25 1120 <Electronically signed by Chip Fulton MD> Cosigner Signature (if applicable): CC: ~ Signed ADDENDUM by Dr. Chip Fulton MD on 02/18/25 at 1120 Visit Charges Inpatient E&M: 47088 Subs Hosp L2 02/18/25 1120<Electronically signed by Chip Fulton MD> Cosigner Signature (if applicable): cc: ~* Signed ADDENDUM by Dr. Chip Fulton MD on 02/18/25 at 1600 Addendum Neurologist impression is TIA. Recommended Plavix 300 mg 1 dose and 75 mg daily for 21 days. Continue aspirin and Lipitor. 30-day event monitor at discharge 02/18/25 1600<Electronically signed by Chip Fulton MD> Cosigner Signature (if applicable): cc: ~* Signed [facility] Work Phone: 1(235) 937-613505-12-2025 Consult note [facility] Medical Records Department [address] [place] [address] Consultation - Neurology 02/18/25 1410 MR#: [id number] Acct: [id number] Name: SHIRA MERRITT Rep #:[id number] : 1940 84 From: Amanda Cullen MD PCP: IDALMIS Hollis Status:ADM COREY Location: [place] [address] Assessment and Plan: Neuro Assessment/Plan SHIRA MERRITT is a 84 F with a past medical history of UC, being evaluated by Teleneurology for transient confusion and L leg weakness, largely resolved. Imaging is benign, the clinical history is suggestive of TIA at this time Diagnosis: TIA Plan: - Anti-platelet medication: Plavix 300mg now, then [id number] + Plavix 75mg daily for 21 days, then Aspirin 81 mg daily only thereafter - Occupational/ Physical therapy consults - SBP goal normotensive< 140/80 - DVT prophylaxis with SCDs and heparin SQ - Vascular risk factor modification. The following are the recommended guidelines: LDL Goal < 70 agree with lipitor 40mg as LDL 108, A1C 5.5 Smoking Cessation Diabetes Management medical terminologist blood pressure control should achieve <130/80 mmHg. BP managementshould aim to achievelong term contorl in a reasonable amount of time, taking into consideration the individual patient's requirements and characteristics. Weight Management: Goal for BMI is 18.5 -24.9 kg/m2 Alcohol: No more than 2 drinks/day for men or 1 drink/day for non- women - Promote lifestyle modification: weight control, physical activity, moderation of alcohol intake, moderate sodium intake. Followup with PCP in 1-2 weeks, and in Neurology clinic in 6-12 weeks I personally attended this patient and spent a total time of 45minutes evaluating this patient including clinical assessment, review of chart, medical history imaging, and determining appropriate treatment and workup. HPI Consult Data Date of Consult: 02/18/25 HPI Narrative HPI Narrative: SHIRA MERRITT, is an 84y/o F w/ hx of UC who presented to [facility] ED 02/17/25 d/t weakness and AMS. Pt woke up earlier and got out of bed, she remembers sitting on the couch and at some point felt heavy all over and a little foggy. Son reported she was not responding so he called 911. Patient reports feeling completely fine now. Son reported that when patient got up this morning she went from her bathroom to the living room and looked like she was wobbly and offbalance and was holding onto things, heasked if she needed to go to the hospital and she said no but when she sat down she put her head inher hands andlooked like she was falling over. Son was yelling at her and she was not responding sohe called 911. By the time EMS arrived she felt better. Reportedly this has happened before and usually occurs in the morning right after she gets out of bed but this is the worst that it has happened. Between patient getting to the ED and evaluation she developed left lower extremity weakness and felt her left arm was heavy, her repeat NIH was 2 so there was a stroke on the ED. TNK was not indicated, workup thus far unremarkable with negative CTA and negative CT brain. Vitals in the ED with temp 97.6, heart rateof 60 and blood pressure 165/58, pulse ox 99% on room air. Teleneurology recommended admission for stroke rule out. Hospitalist contacted for admission. Patient evaluated at bedsidewith sons present, patient irritable and seems to get irritated with questioning. Summarized the history as above and she and family bedside report that that is accurate. Patient notes that she did developthe left lower extremity and arm heaviness since she has been here, when asked if it is improve d she said she has been moving so she does not know, possibly seems that the weakness has been improving, still feels some left lower extremity heaviness but not as much overt weakness. Does report headaches, and/or she has a headache right now though just because she has not had her coffee or foodand that headaches are not uncommon for her during the summer. ROS otherwise negative at this time Neurologic History Pt felt heavy all over and foggy. This has happened in the past - she will get lightheaded if she gets up really quickly. Pt was trying to get up from the couch when this occurred. Pt denies losing consciousness. Patient also had L legweakness. There was also numbness of the L leg.Pt feelsl veronica herhead is swollenbut no pain. Currently the L leg is slowly getting back to normal. Son saw the event, she was leaned down with head in her hand. After she came to and got a litle better, son did not notice facial droop or slurred speech. No other symptoms, nothing else like this ever happened. -? General: Laying comfortably in bed; in no acute distress. -? HENT: Normal oropharynx and mucosa. Normal external appearance of ears and nose. Exophthalmos. -? Neck: Supple, no pain or tenderness -? CV:? No peripheral edema. -? Pulmonary:? Normal respiratory effort. -? Ext: No cyanosis, edema, or deformity -? Skin: No rash. Normal palpation of skin.? -? Musculoskeletal: full range of motion; no joint tenderness. Normal digits and nails by inspection. No clubbing. -? NEURO: -? Mental Status: The patient was alert and oriented to time, place, andperson. Normal recent/remote memory, concentration, and general fund of knowledge. -? Language: speech is clear.? Naming, repetition, fluency, and comprehension intact. -? Cranial Nerves: PERRL 3mm/brisk. EOMI, visual fay full, no facial asymmetry, facial sensation intact, hearing intact, tongue midline, no evidence of atrophy or fibrillations. -? Motor: normal bulk, tone, and strength throughout. No pronator drift or satelliting. Upper and lower extremities equal bilaterally. -? 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 Tone: is normal and bulk is normal -? Sensation- Intact to light touch bilaterally -? Coordination: No dysmetria on [id number], finger follow finger or [id number]. -? Gait- deferred FOR[facility], [facility] Medical History Osteoarthritis Right anterior knee pain History of colon cancer Chronic anemia Ulcerative colitis C. difficile colitis Ulcerative colitis Severe malnutrition Cataract Arthritis Seasonal allergies History of colon cancer Home Medications ?Medication ?Instructions ?Recorded ?Last Taken ?Type ustekinumab 90 mg/mL subcutaneous 90 mg subcut Q8W 12 months #1 mL 06/26/24 02/04/25 Rx syringe (Stelara) acetaminophen 500 mg capsule 1,000 mg PO Q6H PRN fever or pain 02/17/25 02/15/25 History Allergy/AdvReac Type Severity Reaction Status Date / Time Sulfa (Sulfonamide Allergy Rash Verified 02/17/25 10:40 Antibiotics) amoxicillin (From Augmentin) AdvReac Vomiting Verified 02/17/25 10:40 clavulanic acid (From AdvReac Vomiting Verified 02/17/25 10:40 Augmentin) fexofenadine (From Rose) AdvReac Other Verified 02/17/25 10:40 hydrocodone AdvReac "out of it" Verified 02/17/25 10:40 Family History Mother No problems noted. Grandmother Arthritis Grandfather Arthritis Other Heart disease Surgical History History of appendectomy History of cholecystectomy H/O breast biopsy Surgical history of tubal ligation S/P partial colectomy S/P cholecystectomy Social History household members: family housing: house Smoking Status: Never smoker alcohol intake: never substance use type: does not use what type of physical activity do you participate in: walking frequency: daily Vital Signs Vital Signs Vital Signs: 02/17/25 14:30 02/17/25 14:56 02/17/25 15:22 Temperature 98.0 F 97.6 F L Temperature Source Oral Pulse Rate 63 63 73 Respiratory Rate 16 16 16 Respiratory Effort Respiratory Depth Respiratory Pattern Blood Pressure 138/59 H 149/64 H 133/78 H Blood Pressure Mean 85 92 96 Blood Pressure Source Monitor Blood Pressure Position Sitting Blood Pressure Location Right Arm Pulse Ox 97 97 98 Oxygen Delivery Method Room Air Room Air 02/17/25 18:30 02/17/25 21:41 02/17/25 21:41 Temperature 97.8 F 98.3 F Temperature Source Oral Oral Pulse Rate 69 63 Respiratory Rate 16 14 Respiratory Effort Normal Non-Labored Respiratory Depth Normal Respiratory Pattern Normal Blood Pressure 142/71 H 121/72 H Blood Pressure Mean 94 88 Blood Pressure Source Monitor Monitor Blood Pressure Position Semi-Fowlers Semi-Fowlers Blood Pressure Location Right Arm Left Arm Pulse Ox 98 98 Oxygen Delivery Method Room Air Room Air 02/17/25 21:55 02/18/25 02:00 02/18/25 03:00 Temperature 98.3 F 97.2 F L Temperature Source Oral Temporal Pulse Rate 63 59 L Respiratory Rate 14 13 Respiratory Effort Normal Non-Labored Respiratory Depth Normal Respiratory Pattern Normal Blood Pressure 121/72 H 116/69 Blood Pressure Mean 88 84 Blood Pressure Source Monitor Monitor Blood Pressure Position Semi-Fowlers Semi-Fowlers Blood Pressure Location Left Arm Right Arm Pulse Ox 98 96 Oxygen Delivery Method Room Air Room Air Room Air 02/18/25 05:04 02/18/25 06:00 02/18/25 07:32 Temperature 97 F L 97.8 F Temperature Source Temporal Oral Pulse Rate 64 60 Respiratory Rate 12 14 Respiratory Effort Respiratory Depth Respiratory Pattern Blood Pressure 129/63 H 131/74 H Blood Pressure Mean 85 93 Blood Pressure Source Monitor Monitor Blood Pressure Position Semi-Fowlers Semi-Fowlers Blood Pressure Location Right Arm Right Arm Pulse Ox 96 96 97 Oxygen Delivery Method Room Air Room Air Room Air 02/18/25 07:35 02/18/25 08:20 02/18/25 11:30 Temperature 98 F Temperature Source Oral Pulse Rate 70 Respiratory Rate 16 Respiratory Effort Normal Non-Labored Respiratory Depth Normal Respiratory Pattern Normal Blood Pressure 123/69 H Blood Pressure Mean 87 Blood Pressure Source Monitor Blood Pressure Position Semi-Fowlers Blood Pressure Location Right Arm Pulse Ox 96 97 Oxygen Delivery Method Room Air Room Air Room Air 02/18/25 12:20 Temperature Temperature Source Pulse Rate Respiratory Rate Respiratory Effort Respiratory Depth Respiratory Pattern Blood Pressure Blood Pressure Mean Blood Pressure Source Blood Pressure Position Blood Pressure Location Pulse Ox 97 Oxygen Delivery Method Weight Weight: 49.952 kg Body Mass Index (BMI) 18.8 EEG Results Procedure Details EEG Procedure Details: SHIRA MERRITT is a 84 year old F with a past medical history of , who presentsfor evaluation of Electroencephalogram on DATE at TIME Lab / Micro Data 02/18/25 05:27 02/18/25 05:27 Labs: Laboratory Results - last 24 hr 02/17/25 15:40: Troponin T Hi Sens 4Hr < 6 02/18/25 05:27: WBC 8.7, RBC 5.07, Hgb 14.9, Hct 45.4, MCV 89.5, MCH 29.4, MCHC 32.8, RDW Std Deviation 44.3 H, RDW Coeff of Rhonda 13.5, Plt Count 173, MPV 12.2 H, Immature Gran % (Auto) 0.100, Neut % (Auto) 53.2, Lymph % (Auto) 35.7, Medina % (Auto) 7.7, Eos % (Auto) 1.7, Baso % (Auto) 1.6 H, AbsoluteNeuts (auto) 4.6, Absolute Lymphs (auto) 3.10, Nucleated RBC % 0, Sodium 140, Potassium 4.0, Chloride 106, Carbon Dioxide 23.3, Anion Gap 11, BUN 12, Creatinine 0.87, Estim Creat Clear Calc 38.64 L, Est GFR (MDRD) Non-Af 66, BUN/Creatinine Ratio 14.1, Glucose 93, Hemoglobin A1c 5.5, Calcium 8.9, Triglycerides 61, Cholesterol 182, LDL Cholesterol, Calc 108, VLDL Cholesterol 12, HDL Cholesterol 62, Cholesterol/HDL Ratio 2.94, TSH 1.640, Free T4 1.10, Free T3 pg/dL 3.3 Rhythm Strip Rhythm Strip: Sinus Rhythm Rate: 60 Ectopy: None Imaging Radiology Impression Head/Neck CTA 02/17/25 12:32 IMPRESSION: No large vessel occlusion or high grade stenosis within the intracranial or neckarterial vasculature. Reading Location: [facility] Active Medications Active Medications Active Medications: Current Medications Generic Name Dose Route Start Last Admin Trade Name Freq PRN Reason Stop Dose Admin Acetaminophen 650 mg 02/17/25 15:10 Acetaminophen 325 Mg Tablet PO Q6H PRN PRN Pain 1-10 Or Fever >100.7 Albuterol Sulfate 2.5 mg 02/17/25 15:10 Albuterol 2.5 Mg/3 Ml Vial.Neb. INHALATION Q2H PRN PRN SOB &/OR WHEEZING Aspirin 81 mg 02/18/25 08:00 02/18/25 08:42 Aspirin 81 Mg Tab.Chew PO 81 mg BREAKFAST ROBERTO Administration Atorvastatin Calcium 40 mg 02/17/25 22:00 02/17/25 21:30 Atorvastatin Calcium 40 Mg Tablet PO 40 mg QHS ROBERTO Administration Hydralazine HCl 5 mg 02/17/25 15:10 Hydralazine 20 Mg/Ml Vial IV 02/18/25 15:10 Q30M PRN maintain BP parameters with HR <60 Sodium Chloride 250 mls @ 15 mls/hr 02/17/25 15:28 IV .[id number] PRN Saline Flush Sodium Chloride 250 mls @ 15 mls/hr 02/17/25 15:28 IV .[id number] PRN Additional IVPB Infusion Labetalol HCl 10 - 20 mg 02/17/25 15:10 Labetalol 20mg/4ml Syringe IV 02/18/25 15:10 Q10M PRN PRN maintain BP parameters with HR >/=60 Melatonin 3 mg 02/17/25 15:10 Melatonin 3 Mg Tablet PO QHS PRN PRN INSOMNIA Ondansetron HCl 4 mg 02/17/25 15:10 02/18/25 04:58 Ondansetron 4 Mg/2 Ml Vial IV 4 mg Q8H PRN PRN Administration NAUSEA/VOMITING Senna/Docusate Sodium 2 tablet 02/17/25 15:10 Senna/Docusate Sodium 1 Tablet PO BID PRN PRN Constipation Sodium Chloride 10 - 40 ml 02/17/25 15:28 02/18/25 04:59 0.9% Saline Lock 10 Ml Syringe IV 10 ml UD PRN Administration SALINE FLUSH NIHSS NIHSS Nursing Documentation NIHSS Nursing Documentation: NIHSS: Ischemic Stroke/TIA Start: 02/17/25 15:10 Text: For PCU Patients: NIH and Neuro Check every 4 Status: Active hours, PRN and with change in RN caregiver. Freq: [id number] Protocol: Activity Type Activity Date Activity User E-sign Co-sign Detail Recorded Client Recorded Date Recorded By Document 02/18/25 11:30 DS [id number] 02/18/25 12:03 DS 02/18/25 11:30 NIH Stroke Scale [NIHSS] A score of 0 is "normal" or asymptomatic . Total possible score is 42. Inpatient: RN or Physician to activate a stroke alert for onset of new stroke symptoms or with NIHSS increase >/= 3 points. Following change in neurological status, NIHSS will be performed per physician order or more frequently PRN. -1a. Level of Consciousness 0 - Alert; keenly responsive -1b. LOC Questions 0 - Answers BOTH questions correctly -1c. LOC Commands 0 - Performs BOTH tasks correctly -2. Best Gaze 0 - Normal -3. Visual 0 - No visual loss -4. Facial Palsy 0 - Normal symmetrical movements -5a. Left Arm 0 - No drift; arm holds 90 ( or 45) degrees for full 10 seconds -5b. Right Arm 0 - No drift; arm holds 90 ( or 45) degrees for full 10 seconds -6a. Left Leg 0 - No drift; leg holds 30- degree position for full 5 seconds -6b. Right Leg 0 - No drift; leg holds 30- degree position for full 5 seconds -7. Limb Ataxia 0 - Absent -8. Sensory 0 - Normal; no sensory loss -9. Best Language 0 - No aphasia; normal -10. Dysarthria 0 - Normal -11. Extinction and Inattention 0 - No abnormality -Total 0 Query Text:A score of 0 is "normal" or asymptomatic. Total possible score is 42 . ED: Notify Physician for NIHSS increase by > / = 3 points. Inpatient: RN or Physician to activate a stroke alert for NIHSS increase of > / = 3 points. Coma Scale [Assess] -Eye Opening Spontaneous -Motor Obeys Commands -Verbal Oriented [Total] -Coma Scale Total 15 NIHSS 1a. Level of Consciousness: 0 - Alert; keenly responsive 1b. LOC Questions: 0 - Answers BOTH questions correctly 1c. LOC Commands: 0 - Performs BOTH tasks correctly 2. Best Gaze: 0 - Normal 3. Visual: 0 - No visual loss 4. Facial Palsy: 0 - Normal symmetrical movements 5a. Left Arm: 0 - No drift; arm holds 90 (or 45) degrees for full 10 seconds 5b. Right Arm: 0 - No drift; arm holds 90 (or 45) degrees for full 10 seconds 6a. Left Le - No drift; leg holds 30-degree position for full 5 seconds 6b. Right Le - No drift; leg holds 30-degree position for full 5 seconds 7. Limb Ataxia: 0 - Absent 8. Sensory: 0 - Normal; no sensory loss 9. Best Language: 0 - No aphasia; normal 10. Dysarthria: 0 - Normal 11. Extinction and Inattention: 0 - No abnormality Total: 0 02/18/25 1755 Cosigner Signature (if applicable): CC: IDALMIS Phoenix; Dr. Sandy Paige MD~ Signed [facility]05-12-2025 Progress note [facility] Medical Records Department [address] [place] [address] Progress Note - Hospitalist 02/18/25 1110 MR#: [id number] Acct: [id number] Name: SHIRA MERRITT Rep #:[id number] : 1940 84 From: Chip Obrien PCP: IDALMIS Hollis Status:ADM COREY Location: [place] [address] Reason for Visit Reason for Visit: Diagnoses Nontoxic single thyroid nodule (02/17/25) Other symptoms and signs involving the nervous system (02/17/25) Objective Data Objective Data Vital Signs: Vital Signs Temp Pulse Resp BP Pulse Ox O2 Del Method 97.8 F 60 14 131/74 H 96 Room Air 02/18/25 07:32 02/18/25 07:32 02/18/25 07:32 02/18/25 07:32 02/18/25 08:20 02/18/25 08:20 Oxygen Delivery Method Room Air Weight: 110 lb 2.005 oz Body Mass Index (BMI) 18.8 Intake & Output: Intake and Output for Last 24 Hours 02/16/25 02/17/25 02/18/25 23:59 23:59 23:59 Intake Total 480 / 480 Balance 480 / 480 Lab / Micro Data 02/18/25 05:27 02/18/25 05:27 Labs: Laboratory Results - last 24 hr 02/17/25 11:00: WBC 9.1, RBC 5.43 H, Hgb 15.9 H, Hct 48.6 H, MCV 89.5, MCH 29.3,MCHC 32.7, RDW Std Deviation 44.0 H, RDW Coeff of Rhonda 13.5, Plt Count 165, MPV 11.9, Immature Gran % (Auto) 0.300, Neut% (Auto) 64.2, Lymph % (Auto) 28.2, Medina % (Auto) 5.3, Eos % (Auto) 0.7, Baso % (Auto) 1.3 H, Absolute Neuts (auto) 5.8, Absolute Lymphs (auto) 2.56, Nucleated RBC % 0, Reactive Lymphocytes 3+, Sodium 141, Potassium 4.3, Chloride 106, Carbon Dioxide 24.6, Anion Gap 11, BUN 13, Creatinine 0.94, Estim Creat Clear Calc 37.65 L, Est GFR (MDRD) Non-Af 60, BUN/Creatinine Ratio 14.3, Glucose 91, Calcium9.0, Total Bilirubin 0.61, AST 19, ALT 9, Alkaline Phosphatase 92, Troponin T High Sens < 6, Total Protein 6.7,Albumin 4.0, Globulin 2.8, Albumin/Globulin Ratio 1.4 02/17/25 13:06: Troponin T Hi Sens 2 Hr < 6 02/17/25 15:40: Troponin T Hi Sens 4Hr < 6 02/18/25 05:27: WBC 8.7, RBC 5.07, Hgb 14.9, Hct 45.4, MCV 89.5, MCH 29.4, MCHC 32.8, RDW Std Deviation 44.3 H, RDW Coeff of Rhonda 13.5, Plt Count 173, MPV 12.2 H, Immature Gran % (Auto) 0.100, Neut % (Auto) 53.2, Lymph % (Auto) 35.7, Medina % (Auto) 7.7, Eos % (Auto) 1.7, Baso % (Auto) 1.6 H, AbsoluteNeuts (auto) 4.6, Absolute Lymphs (auto) 3.10, Nucleated RBC % 0, Sodium 140, Potassium 4.0, Chloride 106, Carbon Dioxide 23.3, Anion Gap 11, BUN 12, Creatinine 0.87, Estim Creat Clear Calc 38.64 L, Est GFR (MDRD) Non-Af 66, BUN/Creatinine Ratio 14.1, Glucose 93, Calcium 8.9, Triglycerides 61, Cholesterol 182, LDL Cholesterol, Calc 108, VLDL Cholesterol 12, HDL Ch [id number], Cholesterol/HDL Ratio 2.94, TSH 1.640, Free T4 1.10, Free T3 pg/dL 3.3 Radiography Diagnostic Testing: Radiology Impression Brain CT 02/17/25 10:45 IMPRESSION: NO ACUTE FINDINGS. [facility] Chest X-Ray 02/17/25 10:46 IMPRESSION: No focal consolidations Reading Location: [facility] Head/Neck CTA 02/17/25 12:32 IMPRESSION: No large vessel occlusion or high grade stenosis within the intracranial or neckarterial vasculature. Reading Location: [facility] Rhythm Strip Rhythm Strip: Sinus Rhythm Rate: 60 Ectopy: None Physical Exam Narrative Seen and examined. Patient complained that her son noticed that she was looking strange, person herself felt heavy generalized and a little foggy. Her son reported that she was not responding therefore he called 911. Denies acute onset of confusion, disorientation, change in behavior or language dysarthria. She felt left-sided weakness. Physical exam General: Alert, Oriented x3, Cooperative HEENT: Atraumatic, PERRLA, EOMI, Normocephalic. Oral: No Gingival or Mucosal Lesions/ Ulcerations Neck: Supple, No JVD, Negative Carotid Bruits Chest wall/Lungs: Air entry diminished in bilateral lung bases. No crepitation/rhonchi Cardiovascular: Regular rate and rhythm, Normal S1,S2, soft systolic murmur Abdomen: Bowel Sounds Present, Soft, Non Tender, Non-Distended : No dysuria. No renal angle tenderness. No suprapubic tenderness. Extremities: No edema, Capillary Refill Less than 3 Seconds Skin: No rashes, No breakdown Musculoskeletal: LLE mildly weak at knee and hip joints, 4+/5. Rest all 3 extremities 5/5 at major joints. No Tenderness to Palpation of Joints or Extremities Neurological: Cranial nerves II-XII grossly intact, DTR 2+/4. NIH stroke scale 0. GCS 15 for Psych/Mental Status: Normal Affect, Appropriate. Assessment & Plan Assessment/Plan (1) Neurologic abnormality: (2) Thyroid nodule: PLAN: Plan 84-year-old female was admitted with mild confusion/decreased responsiveness along with left-sided weakness/numbness # Left leg and left upper extremity heaviness/numbness: Patient is being admitted in PCU. On exam, mild left lower extremity weakness. NIH stroke scale0. PT, OT, speech therapy/swallow evaluation andmanagement, nursing NIH stroke scale, BP and glucose monitoring and control as per stroke protocol.Lipid profile, TSH: Normal limit. A1c pending. MRI brain and 2D echo with bubble contrast study ordered -CT head w/ no acute process -CTA head and neck with no LVO -Teleneuro consult ordered -Hold BP medications to allow for permissive hypertension for 24 hours unless SBP greater than 220 or DBP greater than 120 or until stroke is ruled out # Thyroid nodule - 6 mm nodule within the right thyroid gland - TSH free T4 and free T3 all normal. - May need outpatient thyroid ultrasound # History of UC -On Stelara on an outpatient basis #DVT ppx: SCDs NIHSS NIHSS Nursing Documentation NIHSS Nursing Documentation: NIHSS: Ischemic Stroke/TIA Start: 02/17/25 15:10 Text: For PCU Patients: NIH and Neuro Check every 4 Status: Active hours, PRN and with change in RN caregiver. Freq: [id number] Protocol: Activity Type Activity Date Activity User E-sign Co-sign Detail Recorded Client Recorded Date Recorded By Document 02/18/25 07:23 ANN [id number] 02/18/25 07:25 ANN 02/18/25 07:23 NIH Stroke Scale [NIHSS] A score of 0 is "normal" or asymptomatic . Total possible score is 42. Inpatient: RN or Physician to activate a stroke alert for onset of new stroke symptoms or with NIHSS increase >/= 3 points. Following change in neurological status, NIHSS will be performed per physician order or more frequently PRN. -1a. Level of Consciousness 0 - Alert; keenly responsive -1b. LOC Questions 0 - Answers BOTH questions correctly -1c. LOC Commands 0 - Performs BOTH tasks correctly -2. Best Gaze 0 - Normal -3. Visual 0 - No visual loss -4. Facial Palsy 0 - Normal symmetrical movements -5a. Left Arm 0 - No drift; arm holds 90 ( or 45) degrees for full 10 seconds -5b. Right Arm 0 - No drift; arm holds 90 ( or 45) degrees for full 10 seconds -6a. Left Leg 0 - No drift; leg holds 30- degree position for full 5 seconds -6b. Right Leg 0 - No drift; leg holds 30- degree position for full 5 seconds -7. Limb Ataxia 0 - Absent -8. Sensory 0 - Normal; no sensory loss -9. Best Language 0 - No aphasia; normal -10. Dysarthria 0 - Normal -11. Extinction and Inattention 0 - No abnormality -Total 0 Query Text:A score of 0 is "normal" or asymptomatic. Total possible score is 42 . ED: Notify Physician for NIHSS increase by > / = 3 points. Inpatient: RN or Physician to activate a stroke alert for NIHSS increase of > / = 3 points. Coma Scale [Assess] -Eye Opening Spontaneous -Motor Obeys Commands -Verbal Oriented [Total] -Coma Scale Total 15 02/18/25 1120 Cosigner Signature (if applicable): CC: ~ Signed ADDENDUM by Dr. Chip Fulton MD on 02/18/25 at 1120 Visit Charges Inpatient E&M: 90043 Subs Hosp L2 02/18/25 1120 Cosigner Signature (if applicable): cc: ~* Signed ADDENDUM by Dr. Chip Fulton MD on 02/18/25 at 1600 Addendum Neurologist impression is TIA. Recommended Plavix 300 mg 1 dose and 75 mg daily for 21 days. Continue aspirin and Lipitor. 30-day event monitor at discharge 02/18/25 1600 Cosigner Signature (if applicable): cc: ~* Signed [facility]05-11-2025 History and physical note Author Sandy Paige [facility] Note Date/Time February 17, 2025 2:46p m [facility] Medical Records Department [address] [place] [address] H&P Exam - Hospitalist 02/17/25 1437 MR#: [id number] Acct: [id number] Name: SHIRA MERRITT Rep #:[id number] : 1940 84 From: Sandy Paige MD PCP: Varinder Phoenix, MANUFACTURING ACCOUNTANT-C Status:ADM COREY Location: [place] [address] HPI - General General Date of Admission: 02/17/25 Date of Service: 02/17/25 Chief Complaint: Wobbly, left lower extremity heaviness HPI Narrative SHIRA MERRITT, is an 84y/o F w/ hx of UC who presented to [facility] ED 02/17/25 d/t weakness and AMS. Pt woke up earlier and got out of bed, she remembers sitting on the couch and at some point felt heavy all over and a little foggy. Son reported she was not responding so he called 911. Patient reports feeling completely fine now. Son reported that when patient got up this morning she went from her bathroom to the living room and looked like she was wobbly and offbalance and was holding onto things, he asked if she needed to go to the hospital and she said no but when she sat down she put her head in her hands andlooked like she was falling over. Son was yelling at her and she was not responding so he called 911. By the time EMS arrived she felt better. Reportedly this has happened before and usually occurs in the morning right after she gets out of bed but this is the worst that it has happened. Between patient getting to the ED and evaluation she developed left lower extremity weakness and felt her left arm was heavy, her repeat NIH was 2 so there was a stroke on the ED. TNK was not indicated, workup thus far unremarkable with negative CTA and negative CT brain. Vitals in the ED with temp 97.6, heart rateof 60 and blood pressure 165/58, pulse ox 99% on room air. Teleneurology recommended admission for stroke rule out. Hospitalist contacted for admission. Patient evaluated at bedside with sons present, patient irritable and seems to get irritated with questioning. Summarized the history as above and she and family bedside report that that is accurate. Patient notes that she did developthe left lower extremity and arm heaviness since she has been here, when asked if it is improved she said she has been moving so she does not know, possibly seems that the weakness has been improving, still feels some left lower extremity heaviness but not as much overt weakness. Does report headaches, and/or she has a headache right now though just because she has not had her coffee or food and that headaches are not uncommon for her during the summer. ROS otherwise negative at this time FORMERLY [facility], [facility] Medical History Osteoarthritis Right anterior knee pain History of colon cancer Chronic anemia Ulcerative colitis C. difficile colitis Ulcerative colitis Severe malnutrition Cataract Arthritis Seasonal allergies History of colon cancer Home Medications ?Medication ?Instructions ?Recorded ?Last Taken ?Type ustekinumab 90 mg/mL subcutaneous 90 mg subcut Q8W 12 months #1 mL 06/26/24 02/04/25 Rx syringe (Stelara) acetaminophen 500 mg capsule 1,000 mg PO Q6H PRN fever or pain 02/17/25 02/15/25 History Allergy/AdvReac Type Severity Reaction Status Date / Time Sulfa (Sulfonamide Allergy Rash Verified 02/17/25 10:40 Antibiotics) amoxicillin (From Augmentin) AdvReac Vomiting Verified 02/17/25 10:40 clavulanic acid (From AdvReac Vomiting Verified 02/17/25 10:40 Augmentin) fexofenadine (From Rose) AdvReac Other Verified 02/17/25 10:40 hydrocodone AdvReac "out of it" Verified 02/17/25 10:40 Family History Mother No problems noted. Grandmother Arthritis Grandfather Arthritis Other Heart disease Surgical History History of appendectomy History of cholecystectomy H/O breast biopsy Surgical history of tubal ligation S/P partial colectomy S/P cholecystectomy Social History household members: family housing: house Smoking Status: Never smoker alcohol intake: never substance use type: does not use what type of physical activity do you participate in: walking frequency: daily ROS ROS Narrative General: Denies fever/chills HENT: Does get intermittent headaches, has headache right now, denies stuffy nose, denies sore throat EYES: Denies changes in vision Resp: Denies cough, denies shortness of breath Cardiac: Denies chest pain GI: Denies abdominal pain, denies changes in bowel, denies nausea/vomiting : Denies changes in urination Extremity: Denies swelling MSK: Some left lower extremity left upper extremity heaviness Neuro: Denies any numbness/tingling Heme: Denies any bleeding or bruising Skin: Denies rashes Psychiatric: Patient irritated Vital Signs Vital Signs Vital Signs: 02/17/25 10:40 02/17/25 11:16 02/17/25 12:33 Temperature 97.6 F L Temperature Source Oral Pulse Rate 60 57 L Respiratory Rate 18 16 Respiratory Effort Normal Respiratory Pattern Normal Blood Pressure 165/58 H 163/65 H Blood Pressure Mean 93 97 Pulse Ox 99 95 Oxygen Delivery Method Room Air Room Air 02/17/25 12:33 02/17/25 13:03 02/17/25 13:29 Temperature Temperature Source Pulse Rate 57 L 65 68 Respiratory Rate 16 18 18 Respiratory Effort Respiratory Pattern Blood Pressure 163/65 H 161/72 H 141/57 H Blood Pressure Mean 97 101 85 Pulse Ox 95 97 98 Oxygen Delivery Method Room Air Room Air Room Air Weight Weight: 52.6 kg Body Mass Index (BMI) 19.3 Physical Exam Narrative General: Alert, oriented, no apparent distress HEENT: Atraumatic, normocephalic Eyes: Anicteric, normal conjunctiva, extraocular movements intact, pupils equal Neck: Supple Respiratory: Clear to auscultation bilaterally, normal respiratory effort Cardiovascular: Regular rate and rhythm GI: Soft, nontender, nondistended Extremities: No edema Musculoskeletal: Strength 5 - out of 5 in right upper extremity, 5 - out of 5 left upper extremity, 5 - out of 5 right lower extremity, 5 - out of 5 left lower extremity Neuro: No overt focal neurological deficits, cranial nerves II through XII intact, [id number] without significant difficulty bilaterally, denies any sensory complaints Skin: No rashes appreciated Psych: Cooperative Results Lab / Micro Data 02/17/25 11:00 02/17/25 11:00 Labs: Laboratory Results - last 24 hr 02/17/25 10:55: Urine Color Yellow, Urine Clarity Clear, Urine pH 8.0, Ur Specific Valders 1.010, Urine Protein Negative, Urine Glucose (UA) Normal, UrineKetones Negative, Urine Occult Blood 10 H, Urine Nitrite Negative, Urine Bilirubin Negative, Urine Urobilinogen Normal, Ur Leukocyte Esterase Negative, Urine RBC 0 SEEN, Urine WBC 0 SEEN, Ur Squamous Epith Cells 0-5 SEEN, Urine Bacteria 0 SEEN, Urine Mucus 0 SEEN 02/17/25 11:00: WBC 9.1, RBC 5.43 H, Hgb 15.9 H, Hct 48.6 H, MCV 89.5, MCH 29.3,MCHC 32.7, RDW Std Deviation 44.0 H, RDW Coeff of Rhonda 13.5, Plt Count 165, MPV 11.9, Immature Gran % (Auto) 0.300, Neut % (Auto) 64.2, Lymph % (Auto) 28.2, Medina % (Auto) 5.3, Eos % (Auto) 0.7, Baso % (Auto) 1.3 H, Absolute Neuts (auto) 5.8, Absolute Lymphs (auto) 2.56, Nucleated RBC % 0, Reactive Lymphocytes 3+, Sodium 141, Potassium 4.3, Chloride 106, Carbon Dioxide 24.6, Anion Gap 11, BUN 13, Creatinine 0.94, Estim Creat Clear Calc 37.65 L, Est GFR (MDRD) Non-Af 60, BUN/Creatinine Ratio 14.3, Glucose 91, Calcium 9.0, Total Bilirubin 0.61, AST 19, ALT 9, Alkaline Phosphatase 92, Troponin T High Sens < 6, Total Protein 6.7,Albumin 4.0, Globulin 2.8, Albumin/Globulin Ratio 1.4 02/17/25 13:06: Troponin T Hi Sens 2 Hr < 6 Rhythm Strip Rhythm Strip: Sinus Rhythm Rate: 60 Ectopy: None Imaging Radiology Impression Brain CT 02/17/25 10:45 IMPRESSION: NO ACUTE FINDINGS. Reading Location: [facility] Chest X-Ray 02/17/25 10:46 IMPRESSION: No focal consolidations Reading Location: [facility] Head/Neck CTA 02/17/25 12:32 IMPRESSION: No large vessel occlusion or high grade stenosis within the intracranial or neckarterial vasculature. Reading Location: [facility] Assessment & Plan Assessment/Plan (1) Neurologic abnormality: (2) Thyroid nodule: PLAN: Plan # Left leg and left upper extremity heaviness -Admit to tele -CT head w/ no acute process -CTA head and neck with no LVO -MRI ordered -NIH q4hr -asa, statin -Echo ordered -PT/OT/Speech eval -Teleneuro consult ordered -Hold BP medications to allow for permissive hypertension for 24 hours unless SBP greater than 220 or DBP greater than 120 or until stroke is ruled out # Thyroid nodule - 6 mm nodule within the right thyroid gland - Will check TSH, free T4, free T3 - May need outpatient thyroid ultrasound # History of UC -On Stelara on an outpatient basis #DVT ppx: SCDs Sandy Paige MD Charges/Coding Visit Charges Inpatient E&M: 75733 Init Hosp L2 02/17/25 1446 <Electronically signed by Sandy Paige MD> Cosigner Signature (if applicable): CC: MANUFACTURING ACCOUNTANT-C Varinder Phoenix; Dr. Sandy Paige MD~ Signed [facility] Work Phone: [phone]) 732-214905-11-2025 Discharge summary Author Reynold Win [facility] Note Date/Time February 17, 2025 2:20p m [facility] Medical Records Department [address] [place] [address] Emergency Department Summary 02/17/25 MR#: [id number] Acct: [id number] Name: SHIRA MERRITT Rep #:[id number] : 1940 84 From: Reynold Win MD PCP: IDALMIS Hollis Status:REG ER Location: ED HPI History of Present Illness Chief Complaint: Weakness Informant: patient and EMS Narrative Narrative: 84-year-old female brought by EMS as for an altered mental status. Patient states she feels fine. She states earlier she had gotten up from bed, she remembers sitting on the couch and at 1 point feeling heavy all over and a little foggy, her son states that she was not responding to him, and called 911. She does not remember that, but states she feels fine right now. No history ofseizures. She is not a diabetic. Lives with her son. Denies any recent illness or falls or injury. She denies any lateralizing neurologic symptoms of any kind. She denies any changes in her vision right now or any pain or symptoms. [facility] Medical History Osteoarthritis Right anterior knee pain History of colon cancer Chronic anemia Ulcerative colitis C. difficile colitis Ulcerative colitis Severe malnutrition Cataract Arthritis Seasonal allergies History of colon cancer Home Medications ?Medication ?Instructions ?Recorded ?Last Taken ?Type ustekinumab 90 mg/mL subcutaneous 90 mg subcut Q8W 12 months #1 mL 06/26/24 02/04/25 Rx syringe (Stelara) acetaminophen 500 mg capsule 1,000 mg PO Q6H PRN fever or pain 02/17/25 02/15/25 History Allergy/AdvReac Type Severity Reaction Status Date / Time Sulfa (Sulfonamide Allergy Rash Verified 02/17/25 10:40 Antibiotics) amoxicillin (From Augmentin) AdvReac Vomiting Verified 02/17/25 10:40 clavulanic acid (From AdvReac Vomiting Verified 02/17/25 10:40 Augmentin) fexofenadine (From Rose) AdvReac Other Verified 02/17/25 10:40 hydrocodone AdvReac "out of it" Verified 02/17/25 10:40 Family History Mother No problems noted. Grandmother Arthritis Grandfather Arthritis Other Heart disease Surgical History History of appendectomy History of cholecystectomy H/O breast biopsy Surgical history of tubal ligation S/P partial colectomy S/P cholecystectomy Social History household members: family housing: house Smoking Status: Never smoker alcohol intake: never substance use type: does not use what type of physical activity do you participate in: walking frequency: daily ROS ROS ED Constitutional Constitutional ED: Reports as per HPI and weakness; Denies chills or fever(s) Eyes Eyes: Denies change in vision or diplopia ENT ENT ED: Denies rhinorrhea or sore throat Cardiovascular Cardiovascular: Denies chest pain or palpitations Respiratory/Chest Respiratory/Chest: Denies cough or dyspnea Gastrointestinal Gastrointestinal: Denies abdominal pain, diarrhea, nausea or vomiting Genitourinary Genitourinary ED: Denies dysuria or hematuria Musculoskeletal Musculoskeletal: Denies back pain or neck pain Integumentary Denies abscess or rash Neurologic Neurologic: Denies headache(s), paresthesias or weakness Psychiatric Psychiatric: Denies anxiety or suicidal thoughts EXAM Physical Exam Const Vital Signs: 02/17/25 10:40 02/17/25 11:16 02/17/25 12:33 Temperature 97.6 F L Temperature Source Oral Pulse Rate 60 57 L Respiratory Rate 18 16 Respiratory Effort Normal Respiratory Pattern Normal Blood Pressure 165/58 H 163/65 H Blood Pressure Mean 93 97 Pulse Ox 99 95 Oxygen Delivery Method Room Air Room Air 02/17/25 12:33 02/17/25 13:03 02/17/25 13:29 Temperature Temperature Source Pulse Rate 57 L 65 68 Respiratory Rate 16 18 18 Respiratory Effort Respiratory Pattern Blood Pressure 163/65 H 161/72 H 141/57 H Blood Pressure Mean 97 101 85 Pulse Ox 95 97 98 Oxygen Delivery Method Room Air Room Air Room Air Positive well nourished and well developed General Appearance ED: well developed and NAD HEENT Reports moist mucous membranes normocephalic and atraumatic Eyes PERRL and EOMs intact bilaterally Neck full ROM, no lymphadenopathy and supple Resp normal respiratory effort and clear to auscultation bilaterally Cardio regular rate, regular rhythm and no murmurs Rate: Negative for tachycardic GI non-tender and non-distended Auscultation: normoactive bowel sounds Palpation: soft Back/Spine no CVA tenderness General Back: other FROM Extremity normal to inspection General Extremety ED: Negative for edema, pulses abnormal or tenderness General Extremity: Negative for edema or pulses abnormal Neuro oriented x3, CN's II-XII intact bilaterally and no sensory deficits noted Neuro Narrative: Normal speech in response to questions and object identification. NIHSS 0. Sensorium / Orientation: awake and alert Motor Exam: strength 5/5 throughout Psych mental status grossly normal Skin no rashes or lesions noted and no wounds MDM MDM MDM Narrative Medical decision making narrative: Patient with nonspecific symptoms, feels fine now, therefore workup for primary XRAY TECH, infectious, metabolic, cardiopulmonary etiologies was entertained. Workup is essentially normal including 2 view chest x-ray on my interpretation and CT of the head on my interpretation. I went back to check on the patient we been watching her vital signs and she has been a little hypertensive but not enough to cause the symptoms. Sons are there, and I discussed with them. They state that when the patient got up this morning she went from her bathroom to the living room and look like she was wobbly and off balance, holding onto things onher way out. He asked if she was okay and needed to go see the hospital and shesaid no. She sat down and put her head in her hands, and at one point look likeshe was falling over and the son thought she was passing out. He was yelling ather and she was not responding as well as he expected so he called 911. By the time EMS arrived she was feeling better. She has a hard time describing what was happening. Son states this has happened before and is usually occurs in themorning right after getting out of bed but it was not to the severity. Given this information my concerns that the patient was having episodes of vertigo when she gets out of bed. Triggering with position changes is consistent with BPPV. However given her age, I went to do [id number] and [id number] whichEMS did just prior to dropping her off and was normal. She did okay but was very slow and told me that she was weak on the left side and had a hard time lifting her left leg. So I repeated NIH, she drifts and hits the bed with her left lower extremity, she states she feels heavy in the left arm as well but shedoes not drift or have weakness there, she does not have hemineglect or facial droop. Therefore her repeat NIHSS is 2, she states she started feeling this wayafter I first examined her but before having her noncontrast CT performed but did not tell anybody. Given this I recommend calling the stroke team and further evaluating and admitting her to the hospital, family understanding of this. Therefore we immediately called for stroke neurology telemedicine consultation and while waiting for this she was emergently taken over to CT for CT angiography of the head and neck. Getting these images did not delay neurology consultation, which came on short time afterwards. While reexamining the patient with the neurologist, she still felt heavy on her left arm and leg but she had no drift of either 1 and no facial droop, aphasia, or hemineglect for an NIHSS of 0. Given this, her deficits currently are improved and nondisabling and the stroke neurologist I are both in agreement that TNK is not indicated. Discussed all this with family throughout, they are in agreement with all this decision making. I reviewed the CTA, I see no LVO on my interpretation, radiology eventually in agreement and she is stable for admission for further observation and care here at this hospital. Lab Data Attestation: I reviewed the patient's lab results. Labs: Laboratory Results - last 24 hr 02/17/25 02/17/25 02/17/25 10:55 11:00 13:06 WBC 9.1 RBC 5.43 H Hgb 15.9 H Hct 48.6 H MCV 89.5 MCH 29.3 MCHC 32.7 RDW Std Deviation 44.0 H RDW Coeff of Rhonda 13.5 Plt Count 165 MPV 11.9 Immature Gran % (Auto) 0.300 Neut % (Auto) 64.2 Lymph % (Auto) 28.2 Medina % (Auto) 5.3 Eos % (Auto) 0.7 Baso % (Auto) 1.3 H Absolute Neuts (auto) 5.8 Absolute Lymphs (auto) 2.56 Nucleated RBC % 0 Reactive Lymphocytes 3+ Sodium 141 Potassium 4.3 Chloride 106 Carbon Dioxide 24.6 Anion Gap 11 BUN 13 Creatinine 0.94 Estim Creat Clear Calc 37.65 L Est GFR (MDRD) Non-Af 60 BUN/Creatinine Ratio 14.3 Glucose 91 Calcium 9.0 Total Bilirubin 0.61 AST 19 ALT 9 Alkaline Phosphatase 92 Troponin T High Sens < 6 Troponin T Hi Sens 2 Hr < 6 Total Protein 6.7 Albumin 4.0 Globulin 2.8 Albumin/Globulin Ratio 1.4 Urine Color Yellow Urine Clarity Clear Urine pH 8.0 Ur Specific Valders 1.010 Urine Protein Negative Urine Glucose (UA) Normal Urine Ketones Negative Urine Occult Blood 10 H Urine Nitrite Negative Urine Bilirubin Negative Urine Urobilinogen Normal Ur Leukocyte Esterase Negative Urine RBC 0 SEEN Urine WBC 0 SEEN Ur Squamous Epith Cells 0-5 SEEN Urine Bacteria 0 SEEN Urine Mucus 0 SEEN Radiography Diagnostic Testing: Clinical Impression(s) from Imaging Studies Brain CT 02/17/25 10:45 IMPRESSION: NO ACUTE FINDINGS. [facility] 02/17/25 10:46 IMPRESSION: No focal consolidations Reading Location: [facility] Head/Neck CTA 02/17/25 12:32 IMPRESSION: No large vessel occlusion or high grade stenosis within the intracranial or neckarterial vasculature. Reading Location: [facility] Rhythm Strip Rhythm Strip: Sinus Rhythm Rate: 60 Ectopy: None EKG Initial EKG: Attestation: I personally reviewed and interpreted this EKG as follows: Interpretation: Sinus Rhythm and No Acute Injury Pattern Comments: Nml axis & intervals; nml EKG Prior EKG tracings: available for review Prior: Unchanged Management Discussion w/another healthcare provider: Hospitalist and Wire Stripper (stroke neuro [facility]) Critical Care Time Critical Care Time: Yes Critical care time (excluding procedures): 30-74 minutes (35 min), Including time spent:, Discussing w/Patient &/or Family/Woodworking Machine Setter, Discussing w/Consultants, Arranging Admission or Transfer and Performing Direct Patient Care at Bedside Discharge Plan Dx/Rx/DC Orders Clinical Impression: Acute left hemiparesis, Dysequilibrium Disposition Disposition: Acute Care Hospital [facility] What to do if you have Problems For any increased pain, shortness of breath, bleeding, nausea or vomiting, chestpain, or any unexpected problems, contact your Primary Care Provider. Call [facility] ([phone]) or report to the closest Emergency Room. Call 911 if necessary. 02/17/25 1420 <Electronically signed by Reynold Win MD> Cosigner Signature (if applicable): CC: IDALMIS Phoenix ~ Signed [facility] Work Phone: [phone] 932-481305-11-2025 History and physical note [facility] Medical Records Department [address] [place] [address] H&P Exam - Hospitalist 02/17/25 1437 MR#: [id number] Acct: [id number] Name: SHIRA MERRITT Rep #:[id number] : 1940 84 From: Sandy Paige MD PCP: Varinder Phoenix, MANUFACTURING ACCOUNTANT-C Status:ADM COREY Location: [address] HPI - General General Date of Admission: 02/17/25 Date of Service: 02/17/25 Chief Complaint: Wobbly, left lower extremity heaviness HPI Narrative SHIRA MERRITT, is an 84y/o F w/ hx of who presented to [facility] ED 02/17/25 d/t weakness and AMS. Pt woke up earlier and got out of bed, she remembers sitting on the couch and at some point felt heavy all over and a little foggy. Son reported she was not responding so he called 911. Patient reports feeling completely fine now. Son reported that when patient got up this morning she went from her bathroom to the living room and looked like she was wobbly and offbalance and was holding onto things, heasked if she needed to go to the hospital and she said no but when she sat down she put her head inher hands andlooked like she was falling over. Son was yelling at her and she was not responding sohe called 911. By the time EMS arrived she felt better. Reportedly this has happened before and usually occurs in the morning right after she gets out of bed but this is the worst that it has happened. Between patient getting to the ED and evaluation she developed left lower extremity weakness and felt her left arm was heavy, her repeat NIH was 2 so there was a stroke on the ED. TNK was not indicated, workup thus far unremarkable with negative CTA and negative CT brain. Vitals in the ED with temp 97.6, heart rateof 60 and blood pressure 165/58, pulse ox 99% on room air. Teleneurology recommended admission for stroke rule out. Hospitalist contacted for admission. Patient evaluated at bedsidewith sons present, patient irritable and seems to get irritated with questioning. Summarized the history as above and she and family bedside report that that is accurate. Patient notes that she did developthe left lower extremity and arm heaviness since she has been here, when asked if it is improve d she said she has been moving so she does not know, possibly seems that the weakness has been improving, still feels some left lower extremity heaviness but not as much overt weakness. Does report headaches, and/or she has a headache right now though just because she has not had her coffee or foodand that headaches are not uncommon for her during the summer. ROS otherwise negative at this time [facility] Medical History Osteoarthritis Right anterior knee pain History of colon cancer Chronic anemia Ulcerative colitis C. difficile colitis Ulcerative colitis Severe malnutrition Cataract Arthritis Seasonal allergies History of colon cancer Home Medications ?Medication ?Instructions ?Recorded ?Last Taken ?Type ustekinumab 90 mg/mL subcutaneous 90 mg subcut Q8W 12 months #1 mL 06/26/24 02/04/25 Rx syringe (Stelara) acetaminophen 500 mg capsule 1,000 mg PO Q6H PRN fever or pain 02/17/25 02/15/25 History Allergy/AdvReac Type Severity Reaction Status Date / Time Sulfa (Sulfonamide Allergy Rash Verified 02/17/25 10:40 Antibiotics) amoxicillin (From Augmentin) AdvReac Vomiting Verified 02/17/25 10:40 clavulanic acid (From AdvReac Vomiting Verified 02/17/25 10:40 Augmentin) fexofenadine (From Rose) AdvReac Other Verified 02/17/25 10:40 hydrocodone AdvReac "out of it" Verified 02/17/25 10:40 Family History Mother No problems noted. Grandmother Arthritis Grandfather Arthritis Other Heart disease Surgical History History of appendectomy History of cholecystectomy H/O breast biopsy Surgical history of tubal ligation S/P partial colectomy S/P cholecystectomy Social History household members: family housing: house Smoking Status: Never smoker alcohol intake: never substance use type: does not use what type of physical activity do you participate in: walking frequency: daily ROS ROS Narrative General: Denies fever/chills HENT: Does get intermittent headaches, has headache right now, denies stuffy nose, denies sore throat EYES: Denies changes in vision Resp: Denies cough, denies shortness of breath Cardiac: Denies chest pain GI: Denies abdominal pain, denies changes in bowel, denies nausea/vomiting : Denies changes in urination Extremity: Denies swelling MSK: Some left lower extremity left upper extremity heaviness Neuro: Denies any numbness/tingling Heme: Denies any bleeding or bruising Skin: Denies rashes Psychiatric: Patient irritated Vital Signs Vital Signs Vital Signs: 02/17/25 10:40 02/17/25 11:16 02/17/25 12:33 Temperature 97.6 F L Temperature Source Oral Pulse Rate 60 57 L Respiratory Rate 18 16 Respiratory Effort Normal Respiratory Pattern Normal Blood Pressure 165/58 H 163/65 H Blood Pressure Mean 93 97 Pulse Ox 99 95 Oxygen Delivery Method Room Air Room Air 02/17/25 12:33 02/17/25 13:03 02/17/25 13:29 Temperature Temperature Source Pulse Rate 57 L 65 68 Respiratory Rate 16 18 18 Respiratory Effort Respiratory Pattern Blood Pressure 163/65 H 161/72 H 141/57 H Blood Pressure Mean 97 101 85 Pulse Ox 95 97 98 Oxygen Delivery Method Room Air Room Air Room Air Weight Weight: 52.6 kg Body Mass Index (BMI) 19.3 Physical Exam Narrative General: Alert, oriented, no apparent distress HEENT: Atraumatic, normocephalic Eyes: Anicteric, normal conjunctiva, extraocular movements intact, pupils equal Neck: Supple Respiratory: Clear to auscultation bilaterally, normal respiratory effort Cardiovascular: Regular rate and rhythm GI: Soft, nontender, nondistended Extremities: No edema Musculoskeletal: Strength 5 - out of 5 in right upper extremity, 5 - out of 5 left upper extremity,5 - out of 5 right lower extremity, 5 - out of 5 left lower extremity Neuro: No overt focal neurological deficits, cranial nerves II through XII intact, [id number] without significant difficulty bilaterally, denies any sensory complaints Skin: No rashes appreciated Psych: Cooperative Results Lab / Micro Data 02/17/25 11:00 02/17/25 11:00 Labs: Laboratory Results - last 24 hr 02/17/25 10:55: Urine Color Yellow, Urine Clarity Clear, Urine pH 8.0, Ur Specific Valders 1.010, Urine Protein Negative, Urine Glucose (UA) Normal, UrineKetones Negative, Urine Occult Blood 10 H, Urine Nitrite Negative, Urine Bilirubin Negative, Urine Urobilinogen Normal, Ur Leukocyte Esterase Negative, Urine RBC 0 SEEN, Urine WBC 0 SEEN, Ur Squamous Epith Cells 0-5 SEEN, Urine Bacteria 0 SEEN, Urine Mucus 0 SEEN 02/17/25 11:00: WBC 9.1, RBC 5.43 H, Hgb 15.9 H, Hct 48.6 H, MCV 89.5, MCH 29.3,MCHC 32.7, RDW Std Deviation 44.0 H, RDW Coeff of Rhonda 13.5, Plt Count 165, MPV 11.9, Immature Gran % (Auto) 0.300, Neut% (Auto) 64.2, Lymph % (Auto) 28.2, Medina % (Auto) 5.3, Eos % (Auto) 0.7, Baso % (Auto) 1.3 H, Absolute Neuts (auto) 5.8, Absolute Lymphs (auto) 2.56, Nucleated RBC % 0, Reactive Lymphocytes 3+, Sodium 141, Potassium 4.3, Chloride 106, Carbon Dioxide 24.6, Anion Gap 11, BUN 13, Creatinine 0.94, Estim Creat Clear Calc 37.65 L, Est GFR (MDRD) Non-Af 60, BUN/Creatinine Ratio 14.3, Glucose 91, Calcium9.0, Total Bilirubin 0.61, AST 19, ALT 9, Alkaline Phosphatase 92, Troponin T High Sens < 6, Total Protein 6.7,Albumin 4.0, Globulin 2.8, Albumin/Globulin Ratio 1.4 02/17/25 13:06: Troponin T Hi Sens 2 Hr < 6 Rhythm Strip Rhythm Strip: Sinus Rhythm Rate: 60 Ectopy: None Imaging Radiology Impression Brain CT 02/17/25 10:45 IMPRESSION: NO ACUTE FINDINGS. Reading Location: [facility] Chest X-Ray 02/17/25 10:46 IMPRESSION: No focal consolidations Reading Location: [facility] Head/Neck CTA 02/17/25 12:32 IMPRESSION: No large vessel occlusion or high grade stenosis within the intracranial or neckarterial vasculature. Reading Location: [facility] Assessment & Plan Assessment/Plan (1) Neurologic abnormality: (2) Thyroid nodule: PLAN: Plan # Left leg and left upper extremity heaviness -Admit to tele -CT head w/ no acute process -CTA head and neck with no LVO -MRI ordered -NIH q4hr -asa, statin -Echo ordered -PT/OT/Speech eval -Teleneuro consult ordered -Hold BP medications to allow for permissive hypertension for 24 hours unless SBP greater than 220 or DBP greater than 120 or until stroke is ruled out # Thyroid nodule - 6 mm nodule within the right thyroid gland - Will check TSH, free T4, free T3 - May need outpatient thyroid ultrasound # History of UC -On Stelara on an outpatient basis #DVT ppx: SCDs Sandy Paige MD Charges/Coding Visit Charges Inpatient E&M: 35539 Init Hosp L2 02/17/25 1446 Cosigner Signature (if applicable): CC: IDALMIS [place]; Dr. Sandy Paige MD~ Signed [facility]05-11-2025 Discharge summary [facility] Medical Records Department [address] [place] [address] Emergency Department Summary 02/17/25 MR#: [id number] Acct: [id number] Name: SHIRA MERRITT Rep #:[id number] : 1940 84 From: Reynold Win MD PCP: IDALMIS Hollis Status:REG ER Location: ED HPI History of Present Illness Chief Complaint: Weakness Informant: patient and EMS Narrative Narrative: 84-year-old female brought by EMS as for an altered mental status. Patient states she feels fine. She states earlier she had gotten up from bed, she remembers sitting on the couch and at 1 point feeling heavy all over and a little foggy, her son states that she was not responding to him, and [id number]. She does not remember that, but states she feels fine right now. No history ofseizures. She isnot a diabetic. Lives with her son. Denies any recent illness or falls or injury. She denies any lateralizing neurologic symptoms of any kind. She denies any changes in her vision right now or any pain or symptoms. [facility] Medical History Osteoarthritis Right anterior knee pain History of colon cancer Chronic anemia Ulcerative colitis C. difficile colitis Ulcerative colitis Severe malnutrition Cataract Arthritis Seasonal allergies History of colon cancer Home Medications ?Medication ?Instructions ?Recorded ?Last Taken ?Type ustekinumab 90 mg/mL subcutaneous 90 mg subcut Q8W 12 months #1 mL 06/26/24 02/04/25 Rx syringe (Stelara) acetaminophen 500 mg capsule 1,000 mg PO Q6H PRN fever or pain 02/17/25 02/15/25 History Allergy/AdvReac Type Severity Reaction Status Date / Time Sulfa (Sulfonamide Allergy Rash Verified 02/17/25 10:40 Antibiotics) amoxicillin (From Augmentin) AdvReac Vomiting Verified 02/17/25 10:40 clavulanic acid (From AdvReac Vomiting Verified 02/17/25 10:40 Augmentin) fexofenadine (From Rose) AdvReac Other Verified 02/17/25 10:40 hydrocodone AdvReac "out of it" Verified 02/17/25 10:40 Family History Mother No problems noted. Grandmother Arthritis Grandfather Arthritis Other Heart disease Surgical History History of appendectomy History of cholecystectomy H/O breast biopsy Surgical history of tubal ligation S/P partial colectomy S/P cholecystectomy Social History household members: family housing: house Smoking Status: Never smoker alcohol intake: never substance use type: does not use what type of physical activity do you participate in: walking frequency: daily ROS ROS ED Constitutional Constitutional ED: Reports as per HPI and weakness; Denies chills or fever(s) Eyes Eyes: Denies change in vision or diplopia ENT ENT ED: Denies rhinorrhea or sore throat Cardiovascular Cardiovascular: Denies chest pain or palpitations Respiratory/Chest Respiratory/Chest: Denies cough or dyspnea Gastrointestinal Gastrointestinal: Denies abdominal pain, diarrhea, nausea or vomiting Genitourinary Genitourinary ED: Denies dysuria or hematuria Musculoskeletal Musculoskeletal: Denies back pain or neck pain Integumentary Denies abscess or rash Neurologic Neurologic: Denies headache(s), paresthesias or weakness Psychiatric Psychiatric: Denies anxiety or suicidal thoughts EXAM Physical Exam Const Vital Signs: 02/17/25 10:40 02/17/25 11:16 02/17/25 12:33 Temperature 97.6 F L Temperature Source Oral Pulse Rate 60 57 L Respiratory Rate 18 16 Respiratory Effort Normal Respiratory Pattern Normal Blood Pressure 165/58 H 163/65 H Blood Pressure Mean 93 97 Pulse Ox 99 95 Oxygen Delivery Method Room Air Room Air 02/17/25 12:33 02/17/25 13:03 02/17/25 13:29 Temperature Temperature Source Pulse Rate 57 L 65 68 Respiratory Rate 16 18 18 Respiratory Effort Respiratory Pattern Blood Pressure 163/65 H 161/72 H 141/57 H Blood Pressure Mean 97 101 85 Pulse Ox 95 97 98 Oxygen Delivery Method Room Air Room Air Room Air Positive well nourished and well developed General Appearance ED: well developed and NAD HEENT Reports moist mucous membranes normocephalic and atraumatic Eyes PERRL and EOMs intact bilaterally Neck full ROM, no lymphadenopathy and supple Resp normal respiratory effort and clear to auscultation bilaterally Cardio regular rate, regular rhythm and no murmurs Rate: Negative for tachycardic GI non-tender and non-distended Auscultation: normoactive bowel sounds Palpation: soft Back/Spine no CVA tenderness General Back: other FROM Extremity normal to inspection General Extremety ED: Negative for edema, pulses abnormal or tenderness General Extremity: Negative for edema or pulses abnormal Neuro oriented x3, CN's II-XII intact bilaterally and no sensory deficits noted Neuro Narrative: Normal speech in response to questions and object identification. NIHSS 0. Sensorium / Orientation: awake and alert Motor Exam: strength 5/5 throughout Psych mental status grossly normal Skin no rashes or lesions noted and no wounds MDM MDM MDM Narrative Medical decision making narrative: Patient with nonspecific symptoms, feels fine now, therefore workup for primary XRAY TECH, infectious, metabolic, cardiopulmonary etiologies was entertained. Workup is essentially normal including 2 view chest x-ray on my interpretation and CT of the head on my interpretation. I went back to check on thepatient we been watching her vital signs and she has been a little hypertensive but not enough to cause the symptoms. Sons are there, and I discussed with them. They state that when the patient got up this morning she went from her bathroom to the living room and look like she was wobbly and off balance, holding onto things onher way out. He asked if she was okay and needed to go see the hospitaland shesaid no. She sat down and put her head in her hands, and at one point look likeshe was falling over and the son thought she was passing out. He was yelling ather and she was not responding as well as he expected so he called 911. By the time EMS arrived she was feeling better. She has a hardtime describing what was happening. Son states this has happened before and is usually occurs in the morning right after getting out of bed but it was not to the severity. Given this information my concerns that the patient was having episodes of vertigo when she gets out of bed. Triggering with position changes is consistent with BPPV. However given her age, I went to do [id number]-tz-[id number] and [id number] whichEMS did just prior to dropping her off and was normal. She did okay but was very slow and told me that she was weak on the left side and had a hard time lifting her left leg. So I repeatedNIH, she drifts and hits the bed with her left lower extremity, she states she feels heavy in the left arm as well but shedoes not drift or have weakness there, she does not have hemineglect or facial droop. Therefore her repeat NIHSS is 2, she states she started feeling this wayafter I first examined her but before having her noncontrast CT performed but did not tell anybody. Given this I recommend calling the stroke team and further evaluating and admitting her to the hospital, family understa nding of this. Therefore we immediately called for stroke neurology telemedicine consultation and while waiting for this she was emergently taken over to CT for CT angiography of the head and neck. Getting these images did not delay neurology consultation, which came on short time afterwards. Whilereexamining the patient with the neurologist, she still felt heavy on her left arm and leg but she had no drift of either 1 and no facial droop, aphasia, or hemineglect for an NIHSS of 0. Given this,her deficits currently are improved and nondisabling and the stroke neurologist I are both in agreement that TNK is not indicated. Discussed all this with family throughout, they are in agreement with all this decision making. I reviewed the CTA, I see no LVO on my interpretation, radiology eventually in agreement and she is stable for admission for further observation and care here at this hospital. Lab Data Attestation: I reviewed the patient's lab results. Labs: Laboratory Results - last 24 hr 02/17/25 02/17/25 02/17/25 10:55 11:00 13:06 WBC 9.1 RBC 5.43 H Hgb 15.9 H Hct 48.6 H MCV 89.5 MCH 29.3 MCHC 32.7 RDW Std Deviation 44.0 H RDW Coeff of Rhonda 13.5 Plt Count 165 MPV 11.9 Immature Gran % (Auto) 0.300 Neut % (Auto) 64.2 Lymph % (Auto) 28.2 Medina % (Auto) 5.3 Eos % (Auto) 0.7 Baso % (Auto) 1.3 H Absolute Neuts (auto) 5.8 Absolute Lymphs (auto) 2.56 Nucleated RBC % 0 Reactive Lymphocytes 3+ Sodium 141 Potassium 4.3 Chloride 106 Carbon Dioxide 24.6 Anion Gap 11 BUN 13 Creatinine 0.94 Estim Creat Clear Calc 37.65 L Est GFR (MDRD) Non-Af 60 BUN/Creatinine Ratio 14.3 Glucose 91 Calcium 9.0 Total Bilirubin 0.61 AST 19 ALT 9 Alkaline Phosphatase 92 Troponin T High Sens < 6 Troponin T Hi Sens 2 Hr < 6 Total Protein 6.7 Albumin 4.0 Globulin 2.8 Albumin/Globulin Ratio 1.4 Urine Color Yellow Urine Clarity Clear Urine pH 8.0 Ur Specific Valders 1.010 Urine Protein Negative Urine Glucose (UA) Normal Urine Ketones Negative Urine Occult Blood 10 H Urine Nitrite Negative Urine Bilirubin Negative Urine Urobilinogen Normal Ur Leukocyte Esterase Negative Urine RBC 0 SEEN Urine WBC 0 SEEN Ur Squamous Epith Cells 0-5 SEEN Urine Bacteria 0 SEEN Urine Mucus 0 SEEN Radiography Diagnostic Testing: Clinical Impression(s) from Imaging Studies Brain CT 02/17/25 10:45 IMPRESSION: NO ACUTE FINDINGS. Reading Location: [facility] Chest X-Ray 02/17/25 10:46 IMPRESSION: No focal consolidations Reading Location: [facility] Head/Neck CTA 02/17/25 12:32 IMPRESSION: No large vessel occlusion or high grade stenosis within the intracranial or neckarterial vasculature. Reading Location: [facility] Rhythm Strip Rhythm Strip: Sinus Rhythm Rate: 60 Ectopy: None EKG Initial EKG: Attestation: I personally reviewed and interpreted this EKG as follows: Interpretation: Sinus Rhythm and No Acute Injury Pattern Comments: Nml axis & intervals; nml EKG Prior EKG tracings: available for review Prior: Unchanged Management Discussion w/another healthcare provider: Hospitalist and Wire Stripper (stroke neuro [facility]) Critical Care Time Critical Care Time: Yes Critical care time (excluding procedures): 30-74 minutes (35 min), Including time spent:, Discussing w/Patient &/or Family/Woodworking Machine Setter, Discussing w/Consultants, Arranging Admission or Transfer and Performing Direct Patient Care at Bedside Discharge Plan Dx/Rx/DC Orders Clinical Impression: Acute left hemiparesis, Dysequilibrium Disposition Disposition: Acute Care Hospital [facility] What to do if you have Problems For any increased pain, shortness of breath, bleeding, nausea or vomiting, chestpain, or any unexpected problems, contact your Primary Care Provider. Call [facility] ([phone]) or report tothe closest Emergency Room. Call 911 if necessary. 02/17/25 1420 Cosigner Signature (if applicable): CC: IDALMIS [place] ~ Signed [facility]05-11-2025 Radiology Diagnostic study note [facility] Imaging Services [address] [place], [place] [address] STROKE CTA Head AND Neck W/Con MR#: [id number] Acct: [id number] Name: SHIRA MERRITT Rep #: [id number] : 1940 F 84 From: Monisha Velásquez MD PCP: IDALMIS Hollis Status: REG ER Study:STROKE CTA Head AND Neck W/Con Date of Exam: 02/17/25 Exam# [id number] Ordering Dr: Sean Win MD PROCEDURE: STROKE CTA HEAD AND NECK W/CON 02/17/2025 REASON FOR EXAM: LEFT HEMIPARESIS TECHNIQUE: CTA imaging of the head and neck from the aortic arch to the skull vertex with out contrast and with intravenous contrast. Multiplanar and multisequence images were obtained. CONTRAST: 100ml of isovue 370 One or more dose reduction techniques were used (e.g., Automated exposure control, adjustment of the mA and/or kV according to patient size, use of iterative reconstruction technique). RADIATION DOSE SUMMARY: DLP: 598 mGycm COMPARISON: none FINDINGS: The aortic arch demonstrates a type I configuration. The ostia of the great vessels are patent. There is conventional branching. The right CCA is patent. There is minimal stenosis of the right carotid bifurcation due to plaque. The cervical right ICA is patent. The right MCA and right KIMBERLY appear patent. There is no large vessel occlusion. The left CCA is patent. There is no significant stenoses at the left carotid bifurcation by NASCET criteria. The cervical left ICA is patent. The left MCA and left KIMBERLY appear patent. There is no large vessel occlusion. The right vertebral artery arises from the right subclavian artery. The left vertebral artery arises from the left subclavian artery. Both vertebral arteries are patent. Both vertebral arteries join to form the patent basilarartery. Both posterior cerebral arteries arise from the tip of the basilar. Both proximal TOWEL SEWER segmentsare patent. There isno large vessel occlusion. There is no enhancing intracranial mass. Shotty cervical lymph nodes are identified. The thyroid gland is heterogeneous with 6mm nodule within the right thyroid gland; smaller scattered hypodensities are noted bilaterally. The lung apices demonstrate no pneumothorax. No destructive osseous abnormalities identified. Right lens surgery. CT/STROKE CTA Head AND Neck W/Con IMPRESSION: No large vessel occlusion or high grade stenosis within the intracranial or neckarterial vasculature. Reading Location: [facility] CC: IDALMIS [place]; Dr. Reynold Win MD ~ Box Toe Cutter: Signed [facility]05-11-2025 Discharge summary Author Reynold Win [facility] Note Date/Time February 17, 2025 2:20p m [facility] Medical Records Department [address] [place] [address] Emergency Department Summary 02/17/25 MR#: [id number] Acct: [id number] Name: SHIRA MERRITT Rep #:[id number] : 1940 84 From: Reynold Win MD PCP: IDALMIS Hollis Status:REG ER Location: ED HPI History of Present Illness Chief Complaint: Weakness Informant: patient and EMS Narrative Narrative: 84-year-old female brought by EMS as for an altered mental status. Patient states she feels fine. She states earlier she had gotten up from bed, she remembers sitting on the couch and at 1 point feeling heavy all over and a little foggy, her son states that she was not responding to him, and called 911. She does not remember that, but states she feels fine right now. No history ofseizures. She is not a diabetic. Lives with her son. Denies any recent illness or falls or injury. She denies any lateralizing neurologic symptoms of any kind. She denies any changes in her vision right now or any pain or symptoms. [facility] Medical History Osteoarthritis Right anterior knee pain History of colon cancer Chronic anemia Ulcerative colitis C. difficile colitis Ulcerative colitis Severe malnutrition Cataract Arthritis Seasonal allergies History of colon cancer Home Medications ?Medication ?Instructions ?Recorded ?Last Taken ?Type ustekinumab 90 mg/mL subcutaneous 90 mg subcut Q8W 12 months #1 mL 06/26/24 02/04/25 Rx syringe (Stelara) acetaminophen 500 mg capsule 1,000 mg PO Q6H PRN fever or pain 02/17/25 02/15/25 History Allergy/AdvReac Type Severity Reaction Status Date / Time Sulfa (Sulfonamide Allergy Rash Verified 02/17/25 10:40 Antibiotics) amoxicillin (From Augmentin) AdvReac Vomiting Verified 02/17/25 10:40 clavulanic acid (From AdvReac Vomiting Verified 02/17/25 10:40 Augmentin) fexofenadine (From Rose) AdvReac Other Verified 02/17/25 10:40 hydrocodone AdvReac "out of it" Verified 02/17/25 10:40 Family History Mother No problems noted. Grandmother Arthritis Grandfather Arthritis Other Heart disease Surgical History History of appendectomy History of cholecystectomy H/O breast biopsy Surgical history of tubal ligation S/P partial colectomy S/P cholecystectomy Social History household members: family housing: house Smoking Status: Never smoker alcohol intake: never substance use type: does not use what type of physical activity do you participate in: walking frequency: daily ROS ROS ED Constitutional Constitutional ED: Reports as per HPI and weakness; Denies chills or fever(s) Eyes Eyes: Denies change in vision or diplopia ENT ENT ED: Denies rhinorrhea or sore throat Cardiovascular Cardiovascular: Denies chest pain or palpitations Respiratory/Chest Respiratory/Chest: Denies cough or dyspnea Gastrointestinal Gastrointestinal: Denies abdominal pain, diarrhea, nausea or vomiting Genitourinary Genitourinary ED: Denies dysuria or hematuria Musculoskeletal Musculoskeletal: Denies back pain or neck pain Integumentary Denies abscess or rash Neurologic Neurologic: Denies headache(s), paresthesias or weakness Psychiatric Psychiatric: Denies anxiety or suicidal thoughts EXAM Physical Exam Const Vital Signs: 02/17/25 10:40 02/17/25 11:16 02/17/25 12:33 Temperature 97.6 F L Temperature Source Oral Pulse Rate 60 57 L Respiratory Rate 18 16 Respiratory Effort Normal Respiratory Pattern Normal Blood Pressure 165/58 H 163/65 H Blood Pressure Mean 93 97 Pulse Ox 99 95 Oxygen Delivery Method Room Air Room Air 02/17/25 12:33 02/17/25 13:03 02/17/25 13:29 Temperature Temperature Source Pulse Rate 57 L 65 68 Respiratory Rate 16 18 18 Respiratory Effort Respiratory Pattern Blood Pressure 163/65 H 161/72 H 141/57 H Blood Pressure Mean 97 101 85 Pulse Ox 95 97 98 Oxygen Delivery Method Room Air Room Air Room Air Positive well nourished and well developed General Appearance ED: well developed and NAD HEENT Reports moist mucous membranes normocephalic and atraumatic Eyes PERRL and EOMs intact bilaterally Neck full ROM, no lymphadenopathy and supple Resp normal respiratory effort and clear to auscultation bilaterally Cardio regular rate, regular rhythm and no murmurs Rate: Negative for tachycardic GI non-tender and non-distended Auscultation: normoactive bowel sounds Palpation: soft Back/Spine no CVA tenderness General Back: other FROM Extremity normal to inspection General Extremety ED: Negative for edema, pulses abnormal or tenderness General Extremity: Negative for edema or pulses abnormal Neuro oriented x3, CN's II-XII intact bilaterally and no sensory deficits noted Neuro Narrative: Normal speech in response to questions and object identification. NIHSS 0. Sensorium / Orientation: awake and alert Motor Exam: strength 5/5 throughout Psych mental status grossly normal Skin no rashes or lesions noted and no wounds MDM MDM MDM Narrative Medical decision making narrative: Patient with nonspecific symptoms, feels fine now, therefore workup for primary XRAY TECH, infectious, metabolic, cardiopulmonary etiologies was entertained. Workup is essentially normal including 2 view chest x-ray on my interpretation and CT of the head on my interpretation. I went back to check on the patient we been watching her vital signs and she has been a little hypertensive but not enough to cause the symptoms. Sons are there, and I discussed with them. They state that when the patient got up this morning she went from her bathroom to the living room and look like she was wobbly and off balance, holding onto things onher way out. He asked if she was okay and needed to go see the hospital and shesaid no. She sat down and put her head in her hands, and at one point look likeshe was falling over and the son thought she was passing out. He was yelling ather and she was not responding as well as he expected so he called 911. By the time EMS arrived she was feeling better. She has a hard time describing what was happening. Son states this has happened before and is usually occurs in themorning right after getting out of bed but it was not to the severity. Given this information my concerns that the patient was having episodes of vertigo when she gets out of bed. Triggering with position changes is consistent with BPPV. However given her age, I went to do [id number] and [id number] whichEMS did just prior to dropping her off and was normal. She did okay but was very slow and told me that she was weak on the left side and had a hard time lifting her left leg. So I repeated NIH, she drifts and hits the bed with her left lower extremity, she states she feels heavy in the left arm as well but shedoes not drift or have weakness there, she does not have hemineglect or facial droop. Therefore her repeat NIHSS is 2, she states she started feeling this wayafter I first examined her but before having her noncontrast CT performed but did not tell anybody. Given this I recommend calling the stroke team and further evaluating and admitting her to the hospital, family understanding of this. Therefore we immediately called for stroke neurology telemedicine consultation and while waiting for this she was emergently taken over to CT for CT angiography of the head and neck. Getting these images did not delay neurology consultation, which came on short time afterwards. While reexamining the patient with the neurologist, she still felt heavy on her left arm and leg but she had no drift of either 1 and no facial droop, aphasia, or hemineglect for an NIHSS of 0. Given this, her deficits currently are improved and nondisabling and the stroke neurologist I are both in agreement that TNK is not indicated. Discussed all this with family throughout, they are in agreement with all this decision making. I reviewed the CTA, I see no LVO on my interpretation, radiology eventually in agreement and she is stable for admission for further observation and care here at this hospital. Lab Data Attestation: I reviewed the patient's lab results. Labs: Laboratory Results - last 24 hr 02/17/25 02/17/25 02/17/25 10:55 11:00 13:06 WBC 9.1 RBC 5.43 H Hgb 15.9 H Hct 48.6 H MCV 89.5 MCH 29.3 MCHC 32.7 RDW Std Deviation 44.0 H RDW Coeff of Rhonda 13.5 Plt Count 165 MPV 11.9 Immature Gran % (Auto) 0.300 Neut % (Auto) 64.2 Lymph % (Auto) 28.2 Medina % (Auto) 5.3 Eos % (Auto) 0.7 Baso % (Auto) 1.3 H Absolute Neuts (auto) 5.8 Absolute Lymphs (auto) 2.56 Nucleated RBC % 0 Reactive Lymphocytes 3+ Sodium 141 Potassium 4.3 Chloride 106 Carbon Dioxide 24.6 Anion Gap 11 BUN 13 Creatinine 0.94 Estim Creat Clear Calc 37.65 L Est GFR (MDRD) Non-Af 60 BUN/Creatinine Ratio 14.3 Glucose 91 Calcium 9.0 Total Bilirubin 0.61 AST 19 ALT 9 Alkaline Phosphatase 92 Troponin T High Sens < 6 Troponin T Hi Sens 2 Hr < 6 Total Protein 6.7 Albumin 4.0 Globulin 2.8 Albumin/Globulin Ratio 1.4 Urine Color Yellow Urine Clarity Clear Urine pH 8.0 Ur Specific Valders 1.010 Urine Protein Negative Urine Glucose (UA) Normal Urine Ketones Negative Urine Occult Blood 10 H Urine Nitrite Negative Urine Bilirubin Negative Urine Urobilinogen Normal Ur Leukocyte Esterase Negative Urine RBC 0 SEEN Urine WBC 0 SEEN Ur Squamous Epith Cells 0-5 SEEN Urine Bacteria 0 SEEN Urine Mucus 0 SEEN Radiography Diagnostic Testing: Clinical Impression(s) from Imaging Studies Brain CT 02/17/25 10:45 IMPRESSION: NO ACUTE FINDINGS. [facility]-Ray 02/17/25 10:46 IMPRESSION: No focal consolidations Reading Location: [facility] Head/Neck CTA 02/17/25 12:32 IMPRESSION: No large vessel occlusion or high grade stenosis within the intracranial or neckarterial vasculature. Reading Location: [facility] Rhythm Strip Rhythm Strip: Sinus Rhythm Rate: 60 Ectopy: None EKG Initial EKG: Attestation: I personally reviewed and interpreted this EKG as follows: Interpretation: Sinus Rhythm and No Acute Injury Pattern Comments: Nml axis & intervals; nml EKG Prior EKG tracings: available for review Prior: Unchanged Management Discussion w/another healthcare provider: Hospitalist and Wire Stripper (stroke neuro [facility]) Critical Care Time Critical Care Time: Yes Critical care time (excluding procedures): 30-74 minutes (35 min), Including time spent:, Discussing w/Patient &/or Family/Woodworking Machine Setter, Discussing w/Consultants, Arranging Admission or Transfer and Performing Direct Patient Care at Bedside Discharge Plan Dx/Rx/DC Orders Clinical Impression: Acute left hemiparesis, Dysequilibrium Disposition Disposition: Acute Care Hospital [facility] What to do if you have Problems For any increased pain, shortness of breath, bleeding, nausea or vomiting, chestpain, or any unexpected problems, contact your Primary Care Provider. Call [facility] ([phone]) or report to the closest Emergency Room. Call 911 if necessary. 02/17/25 1420 <Electronically signed by Reynlod Win MD> Cosigner Signature (if applicable): CC: IDALMIS Phoenix ~ Signed [facility] Work Phone: 1(410) 232-274305-11-2025 Radiology Diagnostic study note [facility] Imaging Services [address], [place] [id number] Chest PA and Lateral MR#: [id number] Acct: [id number] Name: SHIRA MERRITT Rep #: [id number] : 1940 F 84 From: Monisha Velásquez MD PCP: IDALMIS Hollis Status: REG ER Study:Chest PA and Lateral Date of Exam: 02/17/25 Exam# [id number] Ordering Dr: Sean Win MD PROCEDURE: CHEST PA AND LATERAL 02/17/2025 REASON FOR EXAM: WEAKNESS TECHNIQUE: Frontal and lateral views of the chest. COMPARISON: 09/29/24 FINDINGS: No focal consolidations. No pleural effusion or pneumothorax. Cardiac silhouette is unremarkable. No acute fractures RAD/Chest PA and Lateral IMPRESSION: No focal consolidations Reading Location: [facility] CC: IDALMIS Phoenix; Dr. Reynold Win MD ~ Box Toe Cutter: Signed [facility]05-11-2025 Radiology Diagnostic study note [facility] Imaging Services [address], [place] [id number] Brain/Head without Contrast MR#: [id number] Acct: [id number] Name: SHIRA MERRITT Rep #: [id number] : 1940 F 84 From: Sandy Honeycutt MD PCP: IDALMIS Hollis Status: REG ER Study:Brain/Head without Contrast Date of Exa m: 02/17/25 Exam# [id number] Ordering Dr: Sean Win MD PROCEDURE: BRAIN/HEAD WITHOUT CONTRAST 02/17/2025 REASON FOR EXAM: ALTERED MENTAL STATUS TECHNIQUE: Contiguous axial scans of 3.75 mm slice thicknesses with sagittal and coronal reconstruction images. One or more dose reduction techniques were utilized (e.g., automated exposure control, adjustment of mA and/or kv according to patient size, use of iterative reconstruction technique). RADIATION DOSE SUMMARY: DLP: 779.24 mGycm COMPARISON: NO RELEVANT PRIOR. FINDINGS: Cerebrum: No intraparenchymal hemorrhage. No abnormal areas of encephalomalacia.No mass effect or midline shift. Keane-white matter differentiation is normal. Ventricles and cisterns: Appropriate size for patient's age. Extra-axial fluid: Unremarkable. Posterior fossa: Unremarkable cerebellum. No abnormalities involving the brainstem. Paranasal sinuses: Normal. Vasculature: Unremarkable. Mastoid air cells: unremarkable. Calvarium: Unremarkable. Soft tissues: Unremarkable. . CT/Brain/Head without Contrast IMPRESSION: NO ACUTE FINDINGS. Reading Location: [facility] CC: IDALMIS Phoenix; Dr. Reynold Win MD ~ Box Toe Cutter: Signed [facility]02-19-2025 Evaluation note* Diagnosis Onset Date Resolution Status Admit Date Ulcerative colitis chronic Februa 2024 2:28pm Acute left hemiparesis acute Ma 2024 2:27pm Dysequilibrium acute February 17, 2025 2:27pm Neurologic abnormality acute 2024 2:27pm Thyroid nodule acute February 17, 2025 2:27pm [facility] Work Phone: 1(650) 226-926602-19-2025 Evaluation note* Diagnosis Onset Date Resolution Status Admit Date Ulcerative colitis chronic Februa 2024 2:28pm Acute left hemiparesis acute 2024 2:37pm Dysequilibrium acute February 17, 2025 2:37pm Neurologic abnormality acute Ma y 2024 2:37pm Thyroid nodule acute February 17, 2025 2:37pm [facility] Work Phone: 1(772) 576-134005-14-2024 Telephone encounter Note* Telephone Encounter - Leola Montoya LPN - 02/21/2024 7:45 PM EDT Left message for patient with negative results and recommendations.Leola Montoya LPN [facility]05-14-2024 Miscellaneous Notes* Telephone Encounter - Leola Montoya LPN - 02/21/2024 7:45 PM EDT Left message for patient with negative results and recommendations.Leola Montoya LPN * Telephone Encounter - Leilani Yancey - 02/20/2024 2:01 PM EDT Left message for patient to call back and ask to speak to a triage nurse. Leilani Yancey * Telephone Encounter - William Maya PA - 02/20/2024 1:42 PM EDT Please contact patient and let her know urine culture did not reveal UTI/significant bacterial growth. She may continue antibiotic if it is helping with symptoms. If symptoms are continuing, needs tofollow-up with PCP. documented [facility] Telephone encounter Note * Telephone Encounter - Leilani Yancey - 02/20/2024 2:01 PM EDT Left message for patient to call back and ask to speak to a triage nurse. Leilani Yancey [facility]05-13-2024 Telephone encounter Note* Telephone Encounter - William Maya PA - 02/20/2024 1:42 PM EDT Please contact patient and let her know urine culture did not reveal UTI/significant bacterial growth. She may continue antibiotic if it is helping with symptoms. If symptoms are continuing, needs tofollow-up with PCP. [facility] Work Phone: [phone]) 370-507105-12-2024 History of Present illness Narrative* Astrid Chavez APRN.CNP - 02/19/2024 11:50 AM EDT CC: No chief complaint on file. HPI Shira Merritt is a 83 year old female who presents with complaint of possible UTI. These symptoms have been present for 2 days. Associated symptoms: frequency Denies: fever, chills, sweats, abdominal pain, and flank pain Treatments: nothing The ROS was otherwise negative. PMH, Medications, labs, allergies, and recent past visits with PCP were reviewed and updated as able. PHYSICAL EXAM: There were no vitals taken for this visit. General: Well appearing and alert CV: Regular rate and rhythm without obvious murmur Lungs: clear to auscultation bilaterally Back: straight and symmetric Abdomen: soft, nontender, nondistended No past medical history on file. No past surgical history on file. ALLERGIES Sulfa (Sulfonamide Antibiotics) MEDICATIONS TOPROL XL 25 MG ORAL TB24 No family history on file. ASSESSMENT/PLAN: 1. Urgency of urination - ICD9: 788.63, ICD10: R39.15 - UA DIP, URINE (POC) - URINE CULTURE - NITROFURANTOIN MONOHYDRATE & MACROCRYSTAL 100 MG ORAL CAP Prescription instructions reviewed with patient as applicable. Potential red flag symptoms discussed with the patient. Reviewed appropriate action plan to take if red flag symptoms occur. Patient agreeable to treatment plan. Astrid Chavez APRN.IN STORE REPRESENTATIVE documented in this [facility] Progress note Author Sandy Paige [facility] September 10, 2023 4:04pm Note Date/Time September 10, 2023 3 :46pm [facility] Medical Records Department [address] [place] [address] Progress Note - Hospitalist 09/10/23 1546 MR#: [id number] Acct: [id number] Name: SHIRA MERRITT Rep #:[id number] : 1940 83 From: Sandy Paige MD PCP: Varinder Phoenix MANUFACTURING ACCOUNTANT-C Status:ADM COREY Location: [place] [address] Reason for Visit Reason for Visit: Diagnoses Other malaise (09/09/23) Syncope and collapse (09/09/23) COVID-19 (09/09/23) Subjective Subjective Patient feeling generally achy and just unwell, has no other physical complaintsor concerns Objective Data Objective Data Vital Signs: Vital Signs Temp Pulse Resp BP Pulse Ox O2 Del Method 98.3 F 74 16 115/68 95 Room Air 09/10/23 14:40 09/10/23 14:40 09/10/23 14:40 09/10/23 14:40 09/10/23 14:40 09/10/23 14:40 Oxygen Delivery Method Room Air Weight: 56.291 kg Body Mass Index (BMI) 20.6 Intake & Output: Intake and Output for Last 24 Hours 09/08/23 09/09/23 09/10/23 23:59 23:59 23:59 Intake Total 1120 / 1250 280 / 280 Balance 1120 / 1250 280 / 280 Lab / Micro Data 09/10/23 06:04 09/10/23 06:04 Labs: Laboratory Results - last 24 hr 09/10/23 06:04: WBC 7.2, RBC 4.68, Hgb 13.6, Hct 43.8, MCV 93.6, MCH 29.1, MCHC 31.1 L, RDW Std Deviation 46.5 H, RDW Coeff of Rhonda 13.6, Plt Count 128 L, MPV 12.4 H, Sodium 138, Potassium 3.6, Chloride 110 H, Carbon Dioxide 23.0, Anion Gap 5, BUN 12, Creatinine 0.75, Estim Creat Clear Calc 38.54, Est GFR (MDRD) Af Amer 95, Est GFR (MDRD) Non-Af 78, BUN/Creatinine Ratio 16.0, Glucose 89, Calcium 7.8 L Micro: Microbiology 09/09/23 11:47 Nasal Secretion SARS-CoV-2 & FLU Antigen (Rapid) - Final SARS-CoV-2 (COVID 19) Radiography Diagnostic Testing: Radiology Impression Echocardiogram 09/09/23 16:35 Interpretation Summary Normal LV size. Left ventricular systolic function is normal. The estimated ejection fraction is 75 %. Ordering Physician: Uzair Davila Referring Physician: Varinder Phoenix Performed By: Yani Farah, CRISTI, RVT Rhythm Strip Rhythm Strip: Sinus Rhythm Rate: 64 Ectopy: None Physical Exam Narrative General: Alert, oriented, no apparent distress HEENT: Atraumatic, normocephalic Eyes: Anicteric, normal conjunctiva, extraocular movements grossly intact Neck: Supple Respiratory: Clear to auscultation bilaterally, normal respiratory effort Cardiovascular: Regular rate GI: Soft, nontender, nondistended Extremities: No edema Musculoskeletal: Moving all extremities Neuro: No overt focal neurological deficits Skin: No rashes appreciated Psych: Cooperative Assessment & Plan Assessment/Plan (1) Syncope: (2) COVID: (3) Debility: PLAN: Plan Patient is an 83-year-old female who presented [facility] ED on 09/09/2023 via EMS after an episode of syncope at home. 1. Syncopal episode Had syncopal event after getting up from using the bathroom and walking back to her bedroom. Unclear etiology at this point. On chart review, patient reportedfairly frequent presyncopal symptoms at her PCP appointment in 02/2023. Seemed to be present with position changes. Orthostatic vitals were negative in the office. Patient does note somewhat frequent presyncopal symptoms, no episodes of syncope with falling like this. No notable cardiac history; last echo in 11/2021 showed normal to hyperdynamic EF, no other significant changes. Not on any antihypertensive medications. Has incidental COVID infection as noted below, no other infectious symptoms present, does not appear infectious. Could potentially be some degree of autonomic dysfunction. ? Admit under observation status to PCU. Will repeat echo at this time. Orthostatic vitals pending. Patient notably did receive 1 L of IV fluids in theED, blood pressure has remained stable. PT/OT consulted as below. -09/10: Suspect this was dehydration, patient today just feeling achy and unwell, echo unremarkable, continue supportive care, worked with physical therapy and still feels weak, patient wants to go home however. If still weak and unable to go home tomorrow we will need to pursue placement, if improves further with supportive care can consider home 2. COVID-19 infection COVID-positive in the ED on 09/09. Patient reports several known COVID contacts recently. Patient is asymptomatic. Satting in mid to high 90s on room air, no increased work of breathing noted. Has received vaccinations and boosters, mostrecent booster about 1 year ago. ? Will initiate isolation precautions. Given the patient is asymptomatic and onroom air, no need for steroids or other COVID-specific treatments. Symptomatic treatment as needed. -09/10: Continue isolation, patient with no respiratory complaints or hypoxia 3. Debility Patient lives at home with her son. Has bilateral knee osteoarthritis leading to some degree of difficulty, but otherwise does most things around the house for self. However, she and her son wanted her to have therapy evaluations done here to ensure she would be safe going home. ? PT/OT/case management consulted. -09/10: Continue supportive care and working with PT/OT, suspect this is largelydue to her viral illness Chronic medical conditions: ? Ulcerative colitis: Patient reports fairly firm bowel movements recently, no blood in bowel movements. Has been well-controlled since starting Stelara injections. Continue Stelara after discharge. ? Knee osteoarthritis: Continue Mobic daily as needed. DVT prophylaxis: Lovenox CODE STATUS: DNR CCA, DNI Expected disposition: Home with home health care, 1 to 2 days Total clinical time spent by myself addressing the patient's medical issues, reviewing all the data, and collaborating with patient's care team: 35 minutes. Charges/Coding Visit Charges Inpatient E&M: 51733 Subs Hosp L2 09/10/23 1564 <Electronically signed by Sandy Paige MD> Cosigner Signature (if applicable): CC: ~ Signed [facility] Work Phone: 1(496) 367-456212-01-2023 Discharge summary Author Dio Webb [facility] September 09, 2023 4:37pm Note Date/Time September 09, 2023 1 1:17am [facility] Medical Records Department [address] [place] [address] Emergency Department Summary 09/09/23 MR#: [id number] Acct: [id number] Name: SHIRA MERRITT Rep #:[id number] : 1940 83 From: Dio Webb MD PCP: Varinder Phoenix NP-C Status:ADM COREY Location: [place] [address] HPI History of Present Illness Chief Complaint: Syncope Informant: patient Onset/Context/Timing Onset: Today Context: Sudden Onset Current Severity: Mild Maximum Severity: Moderate Narrative Narrative: 83-year-old female states she does not have any significant past medical history. No cardiac history. She felt fine today. She has had no recent illness. She got up from going the bathroom was walking back to her bedroom and hada syncopal event. She does not remember any symptoms prior to the event. This has happened before without diagnosis. Her son was in the home he heard her scream and go down and found her unconscious. She started coming to. Squad brought the patient in. Prior similar symptoms: Yes Recent Illness/Hospitalization: No PFSH PFSH Medical History Arthritis C. difficile colitis Cataract Chronic anemia History of colon cancer History of colon cancer Osteoarthritis Right anterior knee pain Seasonal allergies Severe malnutrition Ulcerative colitis Ulcerative colitis Home Medications meloxicam 7.5 mg tablet 7.5 mg PO DAILY PRN pain #30 tabs 12/02/22 [Rx Last Taken Unknown] ustekinumab 90 mg/mL subcutaneous syringe (Stelara) 90 mg subcut Q8W 12 months #1 mL 06/08/23 [Rx Last Taken Unknown] Allergy/AdvReac Type Severity Reaction Status Date / Time Sulfa (Sulfonamide Allergy Rash Verified 09/09/23 11:04 Antibiotics) amoxicillin [From Augmentin] AdvReac Vomiting Verified 09/09/23 11:04 clavulanic acid AdvReac Vomiting Verified 09/09/23 11:04 [From Augmentin] fexofenadine [From Rose] AdvReac Other Verified 09/09/23 11:04 hydrocodone AdvReac "out of it" Verified 09/09/23 11:04 Family History Mother No problems noted. Grandmother Arthritis Grandfather Arthritis Other Heart disease Surgical History H/O breast biopsy History of appendectomy History of cholecystectomy S/P cholecystectomy S/P partial colectomy Surgical history of tubal ligation Social History household members: family housing: house Smoking Status: Never smoker alcohol intake: never substance use type: does not use what type of physical activity do you participate in: walking frequency: daily ROS ROS ED ROS Narrative Patient denies recent illness. Review of Systems ROS Unobtainable: Denies due to encephalopathy Constitutional Constitutional ED: Denies chills or fever(s) Eyes Eyes: Denies blurry vision ENT ENT ED: Denies ear pain Cardiovascular Cardiovascular: Denies chest pain or palpitations Respiratory/Chest Respiratory/Chest: Denies cough or dyspnea Gastrointestinal Gastrointestinal: Denies abdominal pain Genitourinary Genitourinary ED: Denies dysuria or hematuria Musculoskeletal Musculoskeletal: Denies arthralgias or back pain Integumentary Denies abscess or Abrasions Neurologic Neurologic: Denies headache(s) Psychiatric Psychiatric: Denies anxiety or depression Endocrine Endocrinology: Denies cold intolerance Hematologic/Lymphatic Hematologic/Lymphatic: Reports none Allergic/Immunologic Allergic/Immunologic ED: Denies mouth swelling, tongue swelling or urticaria EXAM Physical Exam Narrative Exam Narrative: 83-year-old female no acute distress. Lying in bed. C-collar in place. Placedby squad. Vital signs are stable and afebrile. Her pulse ox is 99% on room airno hypoxia. H EENT exam pupils round reactive light. No signs of trauma to herface or scalp. Nontender. No hematoma. C-spine and neck completely nontender. She has no cervical spine tenderness. No tracheal tenderness she is moving herhead from ilwp-me-duge and flexion extension are intact. I took the c-collar off. Back and spine are nontender. No signs of trauma to her back. Lungs are clear. Heart regular rhythm and rate about 70 no murmur. Chest wall and ribs nontender. Abdomen soft nontender. Pelvic girdle intact. Moving all 4 extremities. Tender. No deformity. Normal range of motion. She has a very mild abrasion to her right elbow. Does not need to be repaired. No bony deformity. Full flexion extension. She has normal food service director strength. Normal dorsi plantarflexion. Neurologically she is awake and alert. She remembers before and after the event. She knows she is in the hospital. She is acting appropriately. She has no focal motor deficits. Const Vital Signs: 09/09/23 11:04 09/09/23 11:11 09/09/23 12:40 Temperature 97.4 F L 98.3 F Temperature Source Temporal Oral Pulse Rate 73 59 L Respiratory Rate 14 18 Respiratory Effort Normal Non-Labored Respiratory Pattern Normal Blood Pressure 105/64 105/67 Blood Pressure Mean 77 79 Pulse Ox 99 100 Oxygen Delivery Method Room Air Room Air 09/09/23 13:18 09/09/23 13:19 Temperature 97.3 F L Temperature Source Temporal Pulse Rate 72 72 Respiratory Rate 13 13 Respiratory Effort Respiratory Pattern Blood Pressure 138/52 H 138/52 H Blood Pressure Mean 80 80 Pulse Ox 96 96 Oxygen Delivery Method Room Air Room Air Positive well nourished and well developed; Negative for obese, cachectic, contractures or unkempt General Appearance ED: well developed and NAD; Negative for unkempt, cachectic, contractures, cyanotic, diaphoretic or pallor Nutritional Appearance: Negative for cachectic or obese HEENT Negative for trauma or tenderness Eyes PERRL and EOMs intact bilaterally General Eye ED: Negative for pale conjunctiva or scleral icterus Neck no lymphadenopathy, supple and no JVD General: Negative for tenderness Lymph Lymphatic: Negative for other Chest Wall inspection of chest normal and palpation of chest normal Chest: Negative for other Resp normal respiratory effort and clear to auscultation bilaterally Effort and Inspection: Negative for retractions Auscultation: Negative for rales, rhonchi or wheezes Cardio regular rate, regular rhythm, S1 normal heart sound, S2 normal heart sound and no murmurs Rate: Negative for bradycardia or tachycardic GI normal to inspection, nondistended, normoactive bowel sounds, non-tender, non-distended and no masses Inspection: Negative for abdominal distention Auscultation: normoactive bowel sounds Palpation: soft; Negative for tender or guarding Bladder / Kidney Exam: No other Back/Spine no CVA tenderness General Back: Negative for CVA tenderness Cervical Spine: Negative for cervical spine tenderness Thoracic Spine / Upper Back: Negative for thoracic spinal tenderness Lumbar Spine / Lower Back: Negative for lumbar spinal tenderness Extremity normal to inspection General Extremety ED: Negative for edema, tenderness or other findings General Extremity: Negative for edema or other findings Neuro oriented x3 and CN's II-XII intact bilaterally Sensorium / Orientation: alert; Negative for orientation impaired, lethargic or stuporous Motor Exam: strength 5/5 throughout Psych mental status grossly normal Appearance: Negative for unkempt Attitude: No agitated Mood & Affect: Negative for depressed, anxious or tearful Skin no rashes or lesions noted, no wounds and skin turgor normal General Skin Exam: elasticity normal; Negative for jaundice or pallor Lesions: No lesion noted Rashes: No rashes noted Trauma: Negative for abrasion Wounds: Negative for wounds noted MDM MDM MDM Narrative Medical decision making narrative: 83-year-old female with syncopal event. Exam is benign. Vital signs are stable. She undergo a cardiac workup. Repeat exam at 1:45 PM unchanged. Spoke to the patient and her son at bedside. I think she is too weak to go home. They would like her admitted. I will speakto the hospitalist. History & Record Review Discussion w/independent historian: Patient Additional record(s) reviewed:: Prior inpatient record, Prior outpatient record,Prior ED visit, Prior labs and No prior records Lab Data Attestation: I reviewed the patient's lab results. Lab results narrative: CBC unremarkable. White count of 9. H&H 15 and 48. Platelets 153. Chemistries show a gap of 6 normal BUN of 15 creatinine of 1. Glucose 102. Troponin 9. Rapid flu negative. Rapid COVID-positive. Labs: Laboratory Results - last 24 hr 09/09/23 11:30 WBC 9.7 RBC 5.24 Hgb 15.1 H Hct 48.6 H MCV 92.7 MCH 28.8 MCHC 31.1 L RDW Std Deviation 45.9 H RDW Coeff of Rhonda 13.4 Plt Count 153 MPV 12.6 H Immature Gran % (Auto) 0.400 Neut % (Auto) 73.5 H Lymph % (Auto) 16.3 L Medina % (Auto) 9.0 Eos % (Auto) 0.0 Baso % (Auto) 0.8 Absolute Neuts (auto) 7.1 Absolute Lymphs (auto) 1.59 Nucleated RBC % 0 Sodium 140 Potassium 4.3 Chloride 107 Carbon Dioxide 27.0 Anion Gap 6 BUN 15 Creatinine 1.04 H Estim Creat Clear Calc 36.01 Est GFR (MDRD) Af Amer 65 Est GFR (MDRD) Non-Af 54 L BUN/Creatinine Ratio 14.4 Glucose 102 Calcium 8.6 Troponin I High Sens 9 Radiography Chest X-Ray - ED: 1 View, Read by ED Physician, Read by Radiologist, Heart, Lungs, Mediastinum, Bony Structures, No Acute Disease and Chronic Changes Diagnostic Testing: Clinical Impression(s) from Imaging Studies Chest X-Ray 09/09/23 11:14 IMPRESSION: Hyperinflation. The lungs are clear. Electronically Signed: Ja Bailey MD at 12:01 EST , Elbow X-Ray 09/09/23 12:15 IMPRESSION: Normal x-ray examination of the elbow. Electronically Signed: Ja Bailey MD at 12:27 EST , Right elbow x-ray, 3 views, interpreted by myself and radiologist shows no acuteabnormality. No fracture or dislocation. Chest x-ray portable single view interpreted by myself and the radiologist showsno acute abnormality. Rhythm Strip Rhythm Strip: Sinus Rhythm Rate: 64 Ectopy: None EKG Initial EKG: Attestation: I personally reviewed and interpreted this EKG as follows: Interpretation: Sinus Rhythm and No Acute Injury Pattern Comments: Normal sinus rhythm rate 64 no acute signs of WA or ischemia. Prior EKG tracings: available for review Prior: Unchanged Discharge Plan Triage Chief Complaint: Syncope ED Provider: Dio Webb Dx/Rx/DC Orders Clinical Impression: COVID, Transient hypotension, Syncope Prescriptions: No Action meloxicam 7.5 mg tablet 7.5 mg PO DAILY PRN (Reason: pain) Qty: 30 2RF Stelara 90 mg/mL syringe 90 mg subcut Q8W 360 Days Qty: 1 6RF Rx Instructions: Inject one syringe SQ every 8 weeks starting 8 weeks after induction infusion. Primary Care Provider: Varinder Phoenix NP Referrals: Varinder Phoenix NP, MANUFACTURING ACCOUNTANT-C [Primary Care Provider] - What to do if you have Problems For any increased pain, shortness of breath, bleeding, nausea or vomiting, chestpain, or any unexpected problems, contact your Primary Care Provider. Call [facility] ([phone]) or report to the closest Emergency Room. Call 911 if necessary. 09/09/23 1637 <Electronically signed by Dio Webb MD> Cosigner Signature (if applicable): CC: MANUFACTURING ACCOUNTANT-C Varinder Phoenix ~ Signed [facility] Work Phone: 1(179) 718-202012-01-2023 History and physical note Author Uzair Davila [facility] September 09, 2023 2:50pm Note Date/Time September 09, 2023 1 :56pm [facility] Medical Records Department [address] [place] [id number] H&P Exam - Hospitalist 09/09/23 1346 MR#: [id number] Acct: [id number] Name: SHIRA MERRITT Rep #:[id number] : 1940 83 From: Uzair lacey DO PCP: IDALMIS Hollis Status:REG ER Location: ED HPI - General General Date of Service: 09/09/23 Chief Complaint: Syncopal episode HPI Narrative SHIRA MERRITT, is a 83 F who presented to [facility] ED on 09/09/2023 via EMS after an episode of syncope at home. Patient seen at bedside in the ED, son present. Patient was laying comfortably in bed, conversing normally, no acute distress. Patient was wrapped up in several blankets and didreport feeling cold at this time. She denies any recent fevers or chills. Denies any chest pain, shortness of breath, cough or sputum production. Does state that she has recently been around several people who were diagnosed with COVID. Patient lives at home with her son. States that she was upstairs and had just used the bathroom, when she got up to walk back to her bedroom and feltsignificant lightheadedness and dizziness. Patient does not remember falling down. Son states that he heard her scream and found her lying on the floor unresponsive. He states she came to fairly quickly, but he instructed her to remain on the floor until EMS arrived in case of injuries. Patient reports mildright elbow pain with a small scrape from hitting the dresser in the room, otherwise denies any significant pain or discomfort. Patient states she has hadpresyncopal symptoms fairly frequently in the past. She discussed them with herPCP back at her appointment in February 2023; on review, appears orthostatic vitals were negative but they were most concerned for orthostatic hypotension and encouraged her to take measures to prevent presyncopal symptoms such as getting up slowly, wearing compression stockings, etc. States she has had presyncopal symptoms a few times in the last few weeks, no episodes of syncope like this. Patient has some degree of debility due to her bilateral knee osteoarthritis, but otherwise does most things around the house for herself. She and her son wanted to stay the night in the hospital and work with therapy tomorrow to ensure that she is strong enough to go home. No other acute concerns at this time. FORMERLY [facility], [facility] Medical History Arthritis C. difficile colitis Cataract Chronic anemia History of colon cancer History of colon cancer Osteoarthritis Right anterior knee pain Seasonal allergies Severe malnutrition Ulcerative colitis Ulcerative colitis Home Medications meloxicam 7.5 mg tablet 7.5 mg PO DAILY PRN pain #30 tabs 12/02/22 [Rx Last Taken Unknown] ustekinumab 90 mg/mL subcutaneous syringe (Stelara) 90 mg subcut Q8W 12 months #1 mL 06/08/23 [Rx Last Taken Unknown] Allergy/AdvReac Type Severity Reaction Status Date / Time Sulfa (Sulfonamide Allergy Rash Verified 09/09/23 11:04 Antibiotics) amoxicillin [From Augmentin] AdvReac Vomiting Verified 09/09/23 11:04 clavulanic acid AdvReac Vomiting Verified 09/09/23 11:04 [From Augmentin] fexofenadine [From Rose] AdvReac Other Verified 09/09/23 11:04 hydrocodone AdvReac "out of it" Verified 09/09/23 11:04 Family History Mother No problems noted. Grandmother Arthritis Grandfather Arthritis Other Heart disease Surgical History H/O breast biopsy History of appendectomy History of cholecystectomy S/P cholecystectomy S/P partial colectomy Surgical history of tubal ligation Social History household members: family housing: house Smoking Status: Never smoker alcohol intake: never substance use type: does not use what type of physical activity do you participate in: walking frequency: daily ROS Constitutional Constitutional: Denies change in weight, chills, fatigue, fever(s) or weakness Eyes Eyes: Denies change in vision Cardiovascular Cardiovascular: Reports lightheadedness and syncope; Denies chest pain, dyspnea on exertion, edema, orthopnea or rapid heart rate Respiratory/Chest Respiratory/Chest: Denies cough, productive cough, shortness of breath at rest or wheezing Gastrointestinal Gastrointestinal: Denies abdominal pain, constipation, diarrhea, hematemesis, nausea or vomiting Genitourinary Genitourinary: Denies dysuria Musculoskeletal Musculoskeletal: Reports joint pain; Denies arthralgias or back pain Neurologic Neurologic: Denies confusion, dizziness, focal weakness, headache(s), numbness or paresthesias Vital Signs Vital Signs Vital Signs: 09/09/23 11:04 09/09/23 11:11 09/09/23 12:40 Temperature 97.4 F L 98.3 F Temperature Source Temporal Oral Pulse Rate 73 59 L Respiratory Rate 14 18 Respiratory Effort Normal Non-Labored Respiratory Pattern Normal Blood Pressure 105/64 105/67 Blood Pressure Mean 77 79 Pulse Ox 99 100 Oxygen Delivery Method Room Air Room Air 09/09/23 13:18 09/09/23 13:19 Temperature 97.3 F L Temperature Source Temporal Pulse Rate 72 72 Respiratory Rate 13 13 Respiratory Effort Respiratory Pattern Blood Pressure 138/52 H 138/52 H Blood Pressure Mean 80 80 Pulse Ox 96 96 Oxygen Delivery Method Room Air Room Air Weight Weight: 54.8 kg Body Mass Index (BMI) 20.7 Physical Exam Const alert, oriented x3 and no apparent distress Constitutional Narrative: Elderly female, somewhat thin and frail appearing, laying comfortably in bed, conversing normally, no acute distress. General Appearance: cooperative and comfortable HEENT normocephalic, head/scalp atraumatic, hearing grossly normal bilaterally, nasal mucous membranes and turbinates normal and moist oral mucous membranes Eyes PERRL, EOMs intact bilaterally and conjunctivae normal Neck full ROM, no lymphadenopathy and supple Lymph Lymphatic: no lymphadenopathy noted Chest inspection of chest normal Resp normal respiratory effort, normal air movement, no use of accessory muscles and clear to auscultation bilaterally Resp Narrative: Satting in mid to high 90s on room air, no increased work of breathing noted. Cardio regular rate, regular rhythm, no murmurs and peripheral pulses 2+ throughout GI normal to inspection, nondistended, normoactive bowel sounds, soft to palpation,non-tender and non-distended Back/Spine normal ROM Extremity normal to inspection, full ROM and no pedal edema Skin no rashes or lesions noted Neuro moves all extremities and no focal motor deficits Speech: speech normal Psych mental status grossly normal Results Lab / Micro Data 09/09/23 11:30 09/09/23 11:30 Labs: Laboratory Results - last 24 hr 09/09/23 11:30: WBC 9.7, RBC 5.24, Hgb 15.1 H, Hct 48.6 H, MCV 92.7, MCH 28.8, MCHC 31.1 L, RDW Std Deviation 45.9 H, RDW Coeff of Rhonda 13.4, Plt Count 153, MPV12.6 H, Immature Gran % (Auto) 0.400, Neut % (Auto) 73.5 H, Lymph % (Auto) 16.3 L, Medina % (Auto) 9.0, Eos % (Auto) 0.0, Baso % (Auto) 0.8, Absolute Neuts (auto)7.1, Absolute Lymphs (auto) 1.59, Nucleated RBC % 0, Sodium 140, Potassium 4.3, Chloride 107, Carbon Dioxide 27.0, Anion Gap 6, BUN 15, Creatinine 1.04 H, EstimCreat Clear Calc 36.01, Est GFR (MDRD) Af Amer 65, Est GFR (MDRD) Non-Af 54 L, BUN/Creatinine Ratio 14.4, Glucose 102, Calcium 8.6, Troponin I High Sens 9 Micro: Microbiology 09/09/23 11:47 Nasal Secretion SARS-CoV-2 & FLU Antigen (Rapid) - Final SARS-CoV-2 (COVID 19) Rhythm Strip Rhythm Strip: Sinus Rhythm Rate: 64 Ectopy: None Imagaing Radiology Impression Chest X-Ray 09/09/23 11:14 IMPRESSION: Hyperinflation. The lungs are clear. Electronically Signed: Ja Bailey MD at 12:01 EST , Elbow X-Ray 09/09/23 12:15 IMPRESSION: Normal x-ray examination of the elbow. Electronically Signed: Ja Bailey MD at 12:27 EST , Assessment & Plan Assessment/Plan (1) Syncope: (2) COVID: (3) Debility: PLAN: Plan Patient is an 83-year-old female who presented [facility] ED on 09/09/2023 via EMS after an episode of syncope at home. 1. Syncopal episode Had syncopal event after getting up from using the bathroom and walking back to her bedroom. Unclear etiology at this point. On chart review, patient reportedfairly frequent presyncopal symptoms at her PCP appointment in 02/2023. Seemed to be present with position changes. Orthostatic vitals were negative in the office. Patient does note somewhat frequent presyncopal symptoms, no episodes of syncope with falling like this. No notable cardiac history; last echo in 11/2021 showed normal to hyperdynamic EF, no other significant changes. Not on any antihypertensive medications. Has incidental COVID infection as noted below, no other infectious symptoms present, does not appear infectious. Could potentially be some degree of autonomic dysfunction. ? Admit under observation status to PCU. Will repeat echo at this time. Orthostatic vitals pending. Patient notably did receive 1 L of IV fluids in theED, blood pressure has remained stable. PT/OT consulted as below. 2. COVID-19 infection COVID-positive in the ED on 09/09. Patient reports several known COVID contacts recently. Patient is asymptomatic. Satting in mid to high 90s on room air, no increased work of breathing noted. Has received vaccinations and boosters, mostrecent booster about 1 year ago. ? Will initiate isolation precautions. Given the patient is asymptomatic and onroom air, no need for steroids or other COVID-specific treatments. Symptomatic treatment as needed. 3. Debility Patient lives at home with her son. Has bilateral knee osteoarthritis leading to some degree of difficulty, but otherwise does most things around the house for self. However, she and her son wanted her to have therapy evaluations done here to ensure she would be safe going home. ? PT/OT/case management consulted. Chronic medical conditions: ? Ulcerative colitis: Patient reports fairly firm bowel movements recently, no blood in bowel movements. Has been well-controlled since starting Stelara injections. Continue Stelara after discharge. ? Knee osteoarthritis: Continue Mobic daily as needed. DVT prophylaxis: Lovenox CODE STATUS: DNR CCA, DNI Expected disposition: Home with home health care, 1 to 2 days Total clinical time spent by myself addressing the patient's medical issues, reviewing all the data, and collaborating with patient's care team: 55 minutes. Charges/Coding Visit Charges Inpatient E&M: 63287 Init Hosp L2 09/09/23 1450 <Electronically signed by Uzair Davila DO> Cosigner Signature (if applicable): CC: IDALMIS Phoenix; Dr. Uzair Davila DO~ Signed [facility] Work Phone: 1(673) 386-774812-01-2023 History and physical note Author Uzair Davila [facility] September 09, 2023 2:50pm Note Date/Time September 09, 2023 1 :56pm [facility] Medical Records Department [address] [place] [address] H&P Exam - Hospitalist 09/09/23 1346 MR#: [id number] Acct: [id number] Name: SHIRA MERRITT Rep #:[id number] : 1940 83 From: Uzair lacey DO PCP: IDALMIS Hollis Status:REG ER Location: ED HPI - General General Date of Service: 09/09/23 Chief Complaint: Syncopal episode HPI Narrative SHIRA MERRITT, is a 83 F who presented to [facility] ED on 09/09/2023 via EMS after an episode of syncope at home. Patient seen at bedside in the ED, son present. Patient was laying comfortably in bed, conversing normally, no acute distress. Patient was wrapped up in several blankets and didreport feeling cold at this time. She denies any recent fevers or chills. Denies any chest pain, shortness of breath, cough or sputum production. Does state that she has recently been around several people who were diagnosed with COVID. Patient lives at home with her son. States that she was upstairs and had just used the bathroom, when she got up to walk back to her bedroom and feltsignificant lightheadedness and dizziness. Patient does not remember falling down. Son states that he heard her scream and found her lying on the floor unresponsive. He states she came to fairly quickly, but he instructed her to remain on the floor until EMS arrived in case of injuries. Patient reports mildright elbow pain with a small scrape from hitting the dresser in the room, otherwise denies any significant pain or discomfort. Patient states she has hadpresyncopal symptoms fairly frequently in the past. She discussed them with herPCP back at her appointment in February 2023; on review, appears orthostatic vitals were negative but they were most concerned for orthostatic hypotension and encouraged her to take measures to prevent presyncopal symptoms such as getting up slowly, wearing compression stockings, etc. States she has had presyncopal symptoms a few times in the last few weeks, no episodes of syncope like this. Patient has some degree of debility due to her bilateral knee osteoarthritis, but otherwise does most things around the house for herself. She and her son wanted to stay the night in the hospital and work with therapy tomorrow to ensure that she is strong enough to go home. No other acute concerns at this time. FORMERLY [facility], [facility] Medical History Arthritis C. difficile colitis Cataract Chronic anemia History of colon cancer History of colon cancer Osteoarthritis Right anterior knee pain Seasonal allergies Severe malnutrition Ulcerative colitis Ulcerative colitis Home Medications meloxicam 7.5 mg tablet 7.5 mg PO DAILY PRN pain #30 tabs 12/02/22 [Rx Last Taken Unknown] ustekinumab 90 mg/mL subcutaneous syringe (Stelara) 90 mg subcut Q8W 12 months #1 mL 06/08/23 [Rx Last Taken Unknown] Allergy/AdvReac Type Severity Reaction Status Date / Time Sulfa (Sulfonamide Allergy Rash Verified 09/09/23 11:04 Antibiotics) amoxicillin [From Augmentin] AdvReac Vomiting Verified 09/09/23 11:04 clavulanic acid AdvReac Vomiting Verified 09/09/23 11:04 [From Augmentin] fexofenadine [From Rose] AdvReac Other Verified 09/09/23 11:04 hydrocodone AdvReac "out of it" Verified 09/09/23 11:04 Family History Mother No problems noted. Grandmother Arthritis Grandfather Arthritis Other Heart disease Surgical History H/O breast biopsy History of appendectomy History of cholecystectomy S/P cholecystectomy S/P partial colectomy Surgical history of tubal ligation Social History household members: family housing: house Smoking Status: Never smoker alcohol intake: never substance use type: does not use what type of physical activity do you participate in: walking frequency: daily ROS Constitutional Constitutional: Denies change in weight, chills, fatigue, fever(s) or weakness Eyes Eyes: Denies change in vision Cardiovascular Cardiovascular: Reports lightheadedness and syncope; Denies chest pain, dyspnea on exertion, edema, orthopnea or rapid heart rate Respiratory/Chest Respiratory/Chest: Denies cough, productive cough, shortness of breath at rest or wheezing Gastrointestinal Gastrointestinal: Denies abdominal pain, constipation, diarrhea, hematemesis, nausea or vomiting Genitourinary Genitourinary: Denies dysuria Musculoskeletal Musculoskeletal: Reports joint pain; Denies arthralgias or back pain Neurologic Neurologic: Denies confusion, dizziness, focal weakness, headache(s), numbness or paresthesias Vital Signs Vital Signs Vital Signs: 09/09/23 11:04 09/09/23 11:11 09/09/23 12:40 Temperature 97.4 F L 98.3 F Temperature Source Temporal Oral Pulse Rate 73 59 L Respiratory Rate 14 18 Respiratory Effort Normal Non-Labored Respiratory Pattern Normal Blood Pressure 105/64 105/67 Blood Pressure Mean 77 79 Pulse Ox 99 100 Oxygen Delivery Method Room Air Room Air 09/09/23 13:18 09/09/23 13:19 Temperature 97.3 F L Temperature Source Temporal Pulse Rate 72 72 Respiratory Rate 13 13 Respiratory Effort Respiratory Pattern Blood Pressure 138/52 H 138/52 H Blood Pressure Mean 80 80 Pulse Ox 96 96 Oxygen Delivery Method Room Air Room Air Weight Weight: 54.8 kg Body Mass Index (BMI) 20.7 Physical Exam Const alert, oriented x3 and no apparent distress Constitutional Narrative: Elderly female, somewhat thin and frail appearing, laying comfortably in bed, conversing normally, no acute distress. General Appearance: cooperative and comfortable HEENT normocephalic, head/scalp atraumatic, hearing grossly normal bilaterally, nasal mucous membranes and turbinates normal and moist oral mucous membranes Eyes PERRL, EOMs intact bilaterally and conjunctivae normal Neck full ROM, no lymphadenopathy and supple Lymph Lymphatic: no lymphadenopathy noted Chest inspection of chest normal Resp normal respiratory effort, normal air movement, no use of accessory muscles and clear to auscultation bilaterally Resp Narrative: Satting in mid to high 90s on room air, no increased work of breathing noted. Cardio regular rate, regular rhythm, no murmurs and peripheral pulses 2+ throughout GI normal to inspection, nondistended, normoactive bowel sounds, soft to palpation,non-tender and non-distended Back/Spine normal ROM Extremity normal to inspection, full ROM and no pedal edema Skin no rashes or lesions noted Neuro moves all extremities and no focal motor deficits Speech: speech normal Psych mental status grossly normal Results Lab / Micro Data 09/09/23 11:30 09/09/23 11:30 Labs: Laboratory Results - last 24 hr 09/09/23 11:30: WBC 9.7, RBC 5.24, Hgb 15.1 H, Hct 48.6 H, MCV 92.7, MCH 28.8, MCHC 31.1 L, RDW Std Deviation 45.9 H, RDW Coeff of Rhonda 13.4, Plt Count 153, MPV12.6 H, Immature Gran % (Auto) 0.400, Neut % (Auto) 73.5 H, Lymph % (Auto) 16.3 L, Med[place] % (Auto) 9.0, Eos % (Auto) 0.0, Baso % (Auto) 0.8, Absolute Neuts (auto)7.1, Absolute Lymphs (auto) 1.59, Nucleated RBC % 0, Sodium 140, Potassium 4.3, Chloride 107, Carbon Dioxide 27.0, Anion Gap 6, BUN 15, Creatinine 1.04 H, EstimCreat Clear Calc 36.01, Est GFR (MDRD) Af Amer 65, Est GFR (MDRD) Non-Af 54 L, BUN/Creatinine Ratio 14.4, Glucose 102, Calcium 8.6, Troponin I High Sens 9 Micro: Microbiology 09/09/23 11:47 Nasal Secretion SARS-CoV-2 & FLU Antigen (Rapid) - Final SARS-CoV-2 (COVID 19) Rhythm Strip Rhythm Strip: Sinus Rhythm Rate: 64 Ectopy: None Imagaing Radiology Impression Chest X-Ray 09/09/23 11:14 IMPRESSION: Hyperinflation. The lungs are clear. Electronically Signed: Ja Bailey MD at 12:01 EST , Elbow X-Ray 09/09/23 12:15 IMPRESSION: Normal x-ray examination of the elbow. Electronically Signed: Ja Bailey MD at 12:27 EST , Assessment & Plan Assessment/Plan (1) Syncope: (2) COVID: (3) Debility: PLAN: Plan Patient is an 83-year-old female who presented [facility] ED on 09/09/2023 via EMS after an episode of syncope at home. 1. Syncopal episode Had syncopal event after getting up from using the bathroom and walking back to her bedroom. Unclear etiology at this point. On chart review, patient reportedfairly frequent presyncopal symptoms at her PCP appointment in 02/2023. Seemed to be present with position changes. Orthostatic vitals were negative in the office. Patient does note somewhat frequent presyncopal symptoms, no episodes of syncope with falling like this. No notable cardiac history; last echo in 11/2021 showed normal to hyperdynamic EF, no other significant changes. Not on any antihypertensive medications. Has incidental COVID infection as noted below, no other infectious symptoms present, does not appear infectious. Could potentially be some degree of autonomic dysfunction. ? Admit under observation status to PCU. Will repeat echo at this time. Orthostatic vitals pending. Patient notably did receive 1 L of IV fluids in theED, blood pressure has remained stable. PT/OT consulted as below. 2. COVID-19 infection COVID-positive in the ED on 09/09. Patient reports several known COVID contacts recently. Patient is asymptomatic. Satting in mid to high 90s on room air, no increased work of breathing noted. Has received vaccinations and boosters, mostrecent booster about 1 year ago. ? Will initiate isolation precautions. Given the patient is asymptomatic and onroom air, no need for steroids or other COVID-specific treatments. Symptomatic treatment as needed. 3. Debility Patient lives at home with her son. Has bilateral knee osteoarthritis leading to some degree of difficulty, but otherwise does most things around the house for self. However, she and her son wanted her to have therapy evaluations done here to ensure she would be safe going home. ? PT/OT/case management consulted. Chronic medical conditions: ? Ulcerative colitis: Patient reports fairly firm bowel movements recently, no blood in bowel movements. Has been well-controlled since starting Stelara injections. Continue Stelara after discharge. ? Knee osteoarthritis: Continue Mobic daily as needed. DVT prophylaxis: Lovenox CODE STATUS: DNR CCA, DNI Expected disposition: Home with home health care, 1 to 2 days Total clinical time spent by myself addressing the patient's medical issues, reviewing all the data, and collaborating with patient's care team: 55 minutes. Charges/Coding Visit Charges Inpatient E&M: 36135 Init Hosp L2 09/09/23 1450 <Electronically signed by Uzair Davila DO> Cosigner Signature (if applicable): CC: IDALMIS Phoenix; Dr. Uzair Davila DO~ Signed [facility] Work Phone: Discharge summary Author Sandy Paige [facility] September 11, 2023 1:30pm Note Date/Time September 11, 2023 1 :27pm [facility] Medical Records Department [address] [place] [address] Instructions for Home/Discharge Instructions 09/11/23 1324 MR#: [id number] Acct: [id number] Name: SHIRA MERRITT Rep #:[id number] : 1940 83 From: Sandy Paige MD PCP: IDALMIS Hollis Status:ADM COREY Discharge Instructions Diet Discharge Diet: No restrictions Activity Discharge Activity: Use Walker Follow Up Care Test Results: Test results from this visit will be discussed in further detail at your follow- up appointment, if applicable. Discharge Plan Admission Admit Date/Time: 09/09/23 13:56 Primary Reason for Your Visit: Passing out episode Attending Provider: Sandy Paige Primary Care Provider: Varinder Phoenix NP Consulting Providers: Uzair Davila Instructions Patient Instructions: ED Fall Prevention Additional Instructions / Restrictions: It is reasonable to resume your Stelara at least 2 weeks after your positive COVID test and when you are no longer symptomatic. Discharge Orders/Prescriptions Prescriptions: Continued meloxicam 7.5 mg tablet 7.5 mg PO DAILY PRN (Reason: pain) Qty: 30 2RF Held Stelara 90 mg/mL syringe 90 mg subcut Q8W 360 Days Qty: 1 6RF Hold Instructions: Resume on 09/23/23. It is reasonable to resume your Stelara at least 2 weeks after your positive COVID test and when you are no longer symptomatic. Rx Instructions: Inject one syringe SQ every 8 weeks starting 8 weeks after induction infusion. Referrals / Follow Up: Varinder Phoenix NP, MANUFACTURING ACCOUNTANT-C [Primary Care Provider] - Within 1 Week Disposition Disposition (needs filled in before D/C Order can be placed): Home, Self Care 09/11/23 1330<Electronically signed by Sandy Paige MD>Sandy Paige MD CC: IDALMIS Phoenix; Dr. Uzair Davila, DO ~ Signed [facility] Work Phone: Discharge summary Author Chip Fulton [facility] Note Date/Time February 19, 2025 12:13 pm [facility] Medical Records Department [address] [place] [address] Discharge Summary 02/19/25 1210 MR#: [id number] Acct: [id number] Name: SHIRA MERRITT Rep #:[id number] : 1940 84 From: Chip Obrien PCP: IDALMIS Hollis Status:ADM COREY Location: [place] [address] Providers Date of Admission: 02/17/25 Date of Discharge: 02/19/25 Primary Care Physician: IDALMIS Hollis Consultations 02/17/25 15:10 Consult: Tele-Neurology Routine Consulting Provider: [facility] Reason for Consult: Acute Ischemic Stroke/TIA EMERGENT Consult: No MD Notified: Yes Date Notified: 02/17/25 Time Notified: 16:34 Method of Notification: Answering Service Nursing Unit Staff Notify [facility] of Tele-Neurology Consult: Yes Reason For Visit: CVA/TIA R/O Diagnosis Discharge Diagnosis (1) Neurologic abnormality: Status: Acute Code(s): R29.818 - Other symptoms and signs involving the nervous system (2) Thyroid nodule: Status: Acute Code(s): E04.1 - Nontoxic single thyroid nodule Plan 84-year-old female was admitted with mild confusion/decreased responsiveness along with left-sided weakness/numbness. Patient complained that her son noticedthat she was looking strange, person herself felt heavy generalized and a littlefoggy. Her son reported that she was not responding therefore he called 911. Denies acute onset of confusion, disorientation, change in behavior or language dysarthria. She felt left-sided weakness. # Left leg and left upper extremity heaviness/numbness, most likely TIA, resolved.: Patient is being admitted in PCU. On exam, mild left lower extremityweakness. NIH stroke scale 0. PT, OT, speech therapy/swallow evaluation and management, nursing NIH stroke scale, BP and glucose monitoring and control as per stroke protocol. Lipid profile, TSH: Normal limit. A1c pending. MRI brainand 2D echo with bubble contrast study ordered -CT head w/ no acute process -CTA head and neck with no LVO -Teleneuro consult ordered -Hold BP medications to allow for permissive hypertension for 24 hours unless SBP greater than 220 or DBP greater than 120 or until stroke is ruled out 02/19: Patient is doing well. Left lower leg weakness resolved. Patient was evaluated by neurologist, Dr. Cullen and she thinks patient had TIA. Was given aspirin 81 and Plavix 70 mg and then continue aspirin 81 mg lifelong and Plavix 75 mg daily for 3 weeks. 30-day event monitor. On high intensity statin. Patient is being discharged. Blood pressure and heart rate in normal range. A1c 5.5%. # Thyroid nodule - 6 mm nodule within the right thyroid gland - TSH free T4 and free T3 all normal. - May need outpatient thyroid ultrasound # History of UC -On Stelara on an outpatient basis #DVT ppx: SCDs Discharge medication reconciliation done. Discharge follow-up instructions completed. Discharge process discussed with the patient and all questions wereanswered to patient's satisfaction. Follow with PCP in 1 to 2 weeks Total time spent, exact 35 minutes on discharge meds reconciliation, examination, coordination of care with nurses and ancillary staff, review of imaging and blood test and discussion with the patient on follow-up instructions. Medications at Discharge Home Medications ustekinumab 90 mg/mL subcutaneous syringe (Stelara) 90 mg subcut Q8W 12 months #1 mL 06/26/24 acetaminophen 500 mg capsule 1,000 mg PO Q6H PRN fever or pain 02/17/25 aspirin 81 mg chewable tablet 81 mg PO BREAKFAST 30 days #30 tabs 02/19/25 atorvastatin 40 mg tablet 40 mg PO QHS 30 days #30 tabs 02/19/25 clopidogrel 75 mg tablet 75 mg PO DAILY 21 days #21 tabs 02/19/25 Physical Exam Narrative Seen and examined. Patient is doing well. No acute complaint. Wants to go home. Physical exam General: Alert, Oriented x3, Cooperative HEENT: Atraumatic, PERRLA, EOMI, Normocephalic. Oral: No Gingival or Mucosal Lesions/ Ulcerations Neck: Supple, No JVD, Negative Carotid Bruits Chest wall/Lungs: Air entry diminished in bilateral lung bases. No crepitation/rhonchi Cardiovascular: Regular rate and rhythm, Normal S1,S2, soft systolic murmur Abdomen: Bowel Sounds Present, Soft, Non Tender, Non-Distended : No dysuria. No renal angle tenderness. No suprapubic tenderness. Extremities: No edema, Capillary Refill Less than 3 Seconds Skin: No rashes, No breakdown Musculoskeletal: LLE mildly weak at knee and hip joints, 4+/5. Rest all 3 extremities 5/5 at major joints. No Tenderness to Palpation of Joints or Extremities Neurological: Cranial nerves II-XII grossly intact, DTR 2+/4. NIH stroke scale 0. GCS 15 for Psych/Mental Status: Normal Affect, Appropriate. Weight / BMI Weight Weight: 110 lb 2.005 oz Body Mass Index (BMI) 18.8 ABG / Lab / Microbiology Data 02/18/25 05:27 02/18/25 05:27 Laboratory: Laboratory Results - last 24 hr 02/18/25 05:27: Hemoglobin A1c 5.5 Radiography Diagnostic Testing: Radiology Impression Echocardiogram 02/17/25 14:46 Interpretation Summary Normal left ventricle. Left ventricular systolic function is normal. The left ventricular ejection fraction is 70 %. Stage 1 diastolic dysfunction. Ordering Physician: Sandy Paige Referring Physician: Varinder Phoenix Performed By: Yani Farah, CRISTI, RVT Brain MRI 02/18/25 08:00 IMPRESSION: No acute intracranial abnormality; no acute infarct, intracranial hemorrhage or extra-axial collection. Chronic microvascular ischemia and involutional changes. Reading Location: [facility] Ob[facility] Instructions Discharge Diet: 2000 mg Sodium Diet Weight Bearing Status: Weight bearing as tolerated Call your doctor if you observe: Fever of 101 or Higher, Coldness, Increased Pain, Numbness or Tingling, Change in Color, Inability to urinate, Inability to have a bowel movement, Shortness of breath, Dizziness, Fainting spells, Swellingin the ankles, Chest pain, Prolonged hiccupping, Increased palpitations (irregular heartbeat) and Calf discomfort DC O2, CPAP, BIPAP Needs Home O2 Discharge instructions: No When: IN 2 WEEKS Meaningful Use Info Meaningful Use Meaningful Use Diagnoses (Choose all that apply): None applicable Ischemic Stroke Statin Dosing Therapy Reference: STATIN DOSE THERAPY REFERENCE: * Patients > 75 years receive moderate or high dose statin therapy. * Patients 75 years or YOUNGER should receive HIGH intensity statin dose unless contraindicated. You will be required to document reason for non-treatment if statin daily dose does not meet guidelines. HIGH DOSE STATIN THERAPY DAILY Atorvastatin > than or = to 40 mg Rosuvastatin > than or = to 20 mg Amlodipine + Atorvastatin > than or = to 2.5/40 mg Ezetimibe + Simvastatin 10/80 mg Simvastatin 80mg Discharge Plan Admission Admit Date/Time: 02/17/25 14:37 Primary Reason for Your Visit: Possible TIA Attending Provider: Chip Fulton Primary Care Provider: Varinder Phoenix Consulting Providers: Sandy Paige Discharge Orders/Prescriptions Prescriptions: New atorvastatin 40 mg Tablet 40 mg PO QHS 30 Days Qty: 30 2RF clopidogrel 75 mg Tablet 75 mg PO DAILY 21 Days Qty: 21 0RF aspirin 81 mg Tablet,Chewable 81 mg PO BREAKFAST 30 Days Qty: 30 3RF Continued acetaminophen 500 mg capsule 1,000 mg PO Q6H PRN (Reason: fever or pain) Stelara 90 mg/mL syringe 90 mg subcut Q8W 360 Days Qty: 1 6RF Rx Instructions: Inject one syringe SQ every 8 weeks starting 8 weeks after induction infusion. Other Ambulatory Orders: 30 Day Event Recorder Preventi (Urgent) Timeframe: 1 Day Facility: [facility] - Location: Cardiovascular Services Ordered By: Dr. Chip Fulton Referrals / Follow Up: Dinh Dbuose MD [Non-Staff -Ordering Privileges] - Within 1 Month (For clinical suspicion of TIA) Varinder Phoenix, MANUFACTURING ACCOUNTANT-C [Primary Care Provider] - Disposition Disposition (needs filled in before D/C Order can be placed): Home, Self Care Charges/Coding Visit Charges Inpatient E&M: 92206 Disch Hosp >30min 02/19/25 1213 <Electronically signed by Chip Fulton MD> Cosigner Signature (if applicable): CC: IDALMIS Phoenix; Dr. Chip Fulton MD~ Signed [facility] Work Phone: Evaluation note* Diagnosis Onset Date Resolution Status Severe malnutrition acute Exacerbation of ulcerative colitis resolved GI bleed resolved Leukocytosis resolved Ulcerative colitis acute Ulcerative colitis acute Ulcerative colitis acute [facility] Work Phone: Evaluation note* Diagnosis Onset Date Resolution Status Severe malnutrition acute Exacerbation of ulcerative colitis resolved GI bleed resolved Leukocytosis resolved Ulcerative colitis acute Ulcerative colitis acute C. difficile colitis acute Ulcerative colitis acute [facility] Work Phone: Evaluation note* Diagnosis Onset Date Resolution Status Exacerbation of ulcerative colitis resolved GI bleed resolved Leukocytosis resolved Abdominal pain, acute, left lower quadrant acute Acute abdominal pain acute Ulcerative colitis acute [facility] Work Phone: Evaluation note* Diagnosis Onset Date Resolution Status Exacerbation of ulcerative colitis resolved GI bleed resolved Leukocytosis resolved C. difficile colitis acute C. difficile colitis acute Acute abdominal pain acute C. difficile colitis acute Hypokalemia acute Hypophosphatemia acute Leukocytosis acute Severe malnutrition acute Ulcerative colitis acute Chronic anemia chronic [facility] Work Phone: Evaluation note* Diagnosis Onset Date Resolution Status Exacerbation of ulcerative colitis resolved GI bleed resolved Leukocytosis resolved C. difficile colitis acute C. difficile colitis acute Acute abdominal pain acute C. difficile colitis acute Hypokalemia acute Hypophosphatemia acute Leukocytosis acute Severe malnutrition acute Ulcerative colitis acute Chronic anemia chronic Acute abdominal pain acute C. difficile colitis acute Cataract acute Debility acute Encephalopathy acute Hypokalemia acute Hypophosphatemia acute Leukocytosis acute Osteoarthritis acute Severe malnutrition acute Ulcerative colitis acute Chronic anemia chronic [facility] Work Phone: Evaluation note* Diagnosis Onset Date Resolution Status Acute abdominal pain resolve d Hypokalemia resolved Hypophosphatemia resolved Leukocytosis resolved Severe malnutrition resolved Debility acute Acute abdominal pain resolve d Cataract resolved Encephalopathy resolved Hypokalemia resolved Hypophosphatemia resolved Leukocytosis resolved Osteoarthritis resolved Severe malnutrition resolved [facility] Work Phone: Evaluation note* Diagnosis Onset Date Resolution Status Ulcerative colitis chronic Ulcerative colitis chronic [facility] Work Phone: Evaluation note* Diagnosis Onset Date Resolution Status Ulcerative colitis chronic Osteoarthritis acute Right anterior knee pain acu te [facility] Work Phone: Evaluation note* Diagnosis Onset Date Resolution Status COVID acute Debility acute Syncope acute Transient hypotension acute [facility] Work Phone: Evaluation note* Diagnosis Urgency of urination- [facility] Diagnosis Dizziness- Primary Dizziness and giddiness TIA (transient ischemic attack) Unspecified transient cerebral ischemia [facility] Author Sandy Paige [facility] Note Date/Time February 17, 2025 2:46p m [facility] Medical Records Department [address] [place] [address] H&P Exam - Hospitalist 02/17/25 1437 MR#: [id number] Acct: [id number] Name: SHIRA MERRITT Rep #:[id number] : 1940 84 From: Sandy Paige MD PCP: Varinder Phoenix NP-C Status:ADM COREY Location: [place] [address] HPI - General General Date of Admission: 02/17/25 Date of Service: 02/17/25 Chief Complaint: Wobbly, left lower extremity heaviness HPI Narrative SHIRA MERRITT, is an 84y/o F w/ hx of who presented to [facility] ED 02/17/25 d/t weakness and AMS. Pt woke up earlier and got out of bed, she remembers sitting on the couch and at some point felt heavy all over and a little foggy. Son reported she was not responding so he called 911. Patient reports feeling completely fine now. Son reported that when patient got up this morning she went from her bathroom to the living room and looked like she was wobbly and offbalance and was holding onto things, he asked if she needed to go to the hospital and she said no but when she sat down she put her head in her hands andlooked like she was falling over. Son was yelling at her and she was not responding so he called 911. By the time EMS arrived she felt better. Reportedly this has happened before and usually occurs in the morning right after she gets out of bed but this is the worst that it has happened. Between patient getting to the ED and evaluation she developed left lower extremity weakness and felt her left arm was heavy, her repeat NIH was 2 so there was a stroke on the ED. TNK was not indicated, workup thus far unremarkable with negative CTA and negative CT brain. Vitals in the ED with temp 97.6, heart rateof 60 and blood pressure 165/58, pulse ox 99% on room air. Teleneurology recommended admission for stroke rule out. Hospitalist contacted for admission. Patient evaluated at bedside with sons present, patient irritable and seems to get irritated with questioning. Summarized the history as above and she and family bedside report that that is accurate. Patient notes that she did developthe left lower extremity and arm heaviness since she has been here, when asked if it is improved she said she has been moving so she does not know, possibly seems that the weakness has been improving, still feels some left lower extremity heaviness but not as much overt weakness. Does report headaches, and/or she has a headache right now though just because she has not had her coffee or food and that headaches are not uncommon for her during the summer. ROS otherwise negative at this time [facility] Medical History Osteoarthritis Right anterior knee pain History of colon cancer Chronic anemia Ulcerative colitis C. difficile colitis Ulcerative colitis Severe malnutrition Cataract Arthritis Seasonal allergies History of colon cancer Home Medications ?Medication ?Instructions ?Recorded ?Last Taken ?Type ustekinumab 90 mg/mL subcutaneous 90 mg subcut Q8W 12 months #1 mL 06/26/24 02/04/25 Rx syringe (Stelara) acetaminophen 500 mg capsule 1,000 mg PO Q6H PRN fever or pain 02/17/25 02/15/25 History Allergy/AdvReac Type Severity Reaction Status Date / Time Sulfa (Sulfonamide Allergy Rash Verified 02/17/25 10:40 Antibiotics) amoxicillin (From Augmentin) AdvReac Vomiting Verified 02/17/25 10:40 clavulanic acid (From AdvReac Vomiting Verified 02/17/25 10:40 Augmentin) fexofenadine (From Rose) AdvReac Other Verified 02/17/25 10:40 hydrocodone AdvReac "out of it" Verified 02/17/25 10:40 Family History Mother No problems noted. Grandmother Arthritis Grandfather Arthritis Other Heart disease Surgical History History of appendectomy History of cholecystectomy H/O breast biopsy Surgical history of tubal ligation S/P partial colectomy S/P cholecystectomy Social History household members: family housing: house Smoking Status: Never smoker alcohol intake: never substance use type: does not use what type of physical activity do you participate in: walking frequency: daily ROS ROS Narrative General: Denies fever/chills HENT: Does get intermittent headaches, has headache right now, denies stuffy nose, denies sore throat EYES: Denies changes in vision Resp: Denies cough, denies shortness of breath Cardiac: Denies chest pain GI: Denies abdominal pain, denies changes in bowel, denies nausea/vomiting : Denies changes in urination Extremity: Denies swelling MSK: Some left lower extremity left upper extremity heaviness Neuro: Denies any numbness/tingling Heme: Denies any bleeding or bruising Skin: Denies rashes Psychiatric: Patient irritated Vital Signs Vital Signs Vital Signs: 02/17/25 10:40 02/17/25 11:16 02/17/25 12:33 Temperature 97.6 F L Temperature Source Oral Pulse Rate 60 57 L Respiratory Rate 18 16 Respiratory Effort Normal Respiratory Pattern Normal Blood Pressure 165/58 H 163/65 H Blood Pressure Mean 93 97 Pulse Ox 99 95 Oxygen Delivery Method Room Air Room Air 02/17/25 12:33 02/17/25 13:03 02/17/25 13:29 Temperature Temperature Source Pulse Rate 57 L 65 68 Respiratory Rate 16 18 18 Respiratory Effort Respiratory Pattern Blood Pressure 163/65 H 161/72 H 141/57 H Blood Pressure Mean 97 101 85 Pulse Ox 95 97 98 Oxygen Delivery Method Room Air Room Air Room Air Weight Weight: 52.6 kg Body Mass Index (BMI) 19.3 Physical Exam Narrative General: Alert, oriented, no apparent distress HEENT: Atraumatic, normocephalic Eyes: Anicteric, normal conjunctiva, extraocular movements intact, pupils equal Neck: Supple Respiratory: Clear to auscultation bilaterally, normal respiratory effort Cardiovascular: Regular rate and rhythm GI: Soft, nontender, nondistended Extremities: No edema Musculoskeletal: Strength 5 - out of 5 in right upper extremity, 5 - out of 5 left upper extremity, 5 - out of 5 right lower extremity, 5 - out of 5 left lower extremity Neuro: No overt focal neurological deficits, cranial nerves II through XII intact, [id number] without significant difficulty bilaterally, denies any sensory complaints Skin: No rashes appreciated Psych: Cooperative Results Lab / Micro Data 02/17/25 11:00 02/17/25 11:00 Labs: Laboratory Results - last 24 hr 02/17/25 10:55: Urine Color Yellow, Urine Clarity Clear, Urine pH 8.0, Ur Specific Valders 1.010, Urine Protein Negative, Urine Glucose (UA) Normal, UrineKetones Negative, Urine Occult Blood 10 H, Urine Nitrite Negative, Urine Bilirubin Negative, Urine Urobilinogen Normal, Ur Leukocyte Esterase Negative, Urine RBC 0 SEEN, Urine WBC 0 SEEN, Ur Squamous Epith Cells 0-5 SEEN, Urine Bacteria 0 SEEN, Urine Mucus 0 SEEN 02/17/25 11:00: WBC 9.1, RBC 5.43 H, Hgb 15.9 H, Hct 48.6 H, MCV 89.5, MCH 29.3,MCHC 32.7, RDW Std Deviation 44.0 H, RDW Coeff of Rhonda 13.5, Plt Count 165, MPV 11.9, Immature Gran % (Auto) 0.300, Neut % (Auto) 64.2, Lymph % (Auto) 28.2, Medina % (Auto) 5.3, Eos % (Auto) 0.7, Baso % (Auto) 1.3 H, Absolute Neuts (auto) 5.8, Absolute Lymphs (auto) 2.56, Nucleated RBC % 0, Reactive Lymphocytes 3+, Sodium 141, Potassium 4.3, Chloride 106, Carbon Dioxide 24.6, Anion Gap 11, BUN 13, Creatinine 0.94, Estim Creat Clear Calc 37.65 L, Est GFR (MDRD) Non-Af 60, BUN/Creatinine Ratio 14.3, Glucose 91, Calcium 9.0, Total Bilirubin 0.61, AST 19, ALT 9, Alkaline Phosphatase 92, Troponin T High Sens < 6, Total Protein 6.7,Albumin 4.0, Globulin 2.8, Albumin/Globulin Ratio 1.4 02/17/25 13:06: Troponin T Hi Sens 2 Hr < 6 Rhythm Strip Rhythm Strip: Sinus Rhythm Rate: 60 Ectopy: None Imaging Radiology Impression Brain CT 02/17/25 10:45 IMPRESSION: NO ACUTE FINDINGS. Reading Location: [facility] Chest X-Ray 02/17/25 10:46 IMPRESSION: No focal consolidations Reading Location: [facility] Head/Neck CTA 02/17/25 12:32 IMPRESSION: No large vessel occlusion or high grade stenosis within the intracranial or neckarterial vasculature. Reading Location: [facility] Assessment & Plan Assessment/Plan (1) Neurologic abnormality: (2) Thyroid nodule: PLAN: Plan # Left leg and left upper extremity heaviness -Admit to tele -CT head w/ no acute process -CTA head and neck with no LVO -MRI ordered -NIH q4hr -asa, statin -Echo ordered -PT/OT/Speech eval -Teleneuro consult ordered -Hold BP medications to allow for permissive hypertension for 24 hours unless SBP greater than 220 or DBP greater than 120 or until stroke is ruled out # Thyroid nodule - 6 mm nodule within the right thyroid gland - Will check TSH, free T4, free T3 - May need outpatient thyroid ultrasound # History of UC -On Stelara on an outpatient basis #DVT ppx: SCDs Sandy Paige MD Charges/Coding Visit Charges Inpatient E&M: 52047 Init Hosp L2 02/17/25 1446 <Electronically signed by Sandy Paige MD> Cosigner Signature (if applicable): CC: MANUFACTURING ACCOUNTANT-C Varinder Phoenix; Dr. Sandy Paige MD~ Signed [facility] Work Phone: Reason for referral (narrative)No reason for referral information available[facility]ast [facility] Work Phone: Summary Purpose Family History No Family History Records Found Relationship Condition Age at Onset Recorded Date/T cecilia Not Specified Cardiac disease Unknown grandmother Arthritis Unknown grandfather Arthritis Unknown Advance Directives No Advanced Directives Records Found Advance Directive Response Recorded Date/ Time Name of Medical Power of Envelope Sealer Operator JUAN CARLOS Tan November 23, 2021 7:06pm Living Will Yes February 03, 2022 8:11pm Power of Envelope Sealer Operator Yes February 03 8:11pm Advance Directive Response Recorded Date/ Time Name of Medical Power of Envelope Sealer Operator JUAN CARLOS KNOBL E November 23, 2021 7:06pm Living Will Yes February 03, 2022 11:19pm Power of Envelope Sealer Operator Yes February 03 11:19pm Advance Directive Response Recorded Date/ Time Name of Medical Power of Envelope Sealer Operator JUAN CARLOS KNOBL E November 23, 2021 7:06pm Name of Medical Power of Envelope Sealer Operator Juan Carlos Knobl e February 03, 2022 11:19pm Living Will Yes March 14, 2022 1 1:31pm Power of Envelope Sealer Operator Yes March 14, 2022 11:31pm Advance Directive Response Recorded Date/ Time Name of Medical Power of Envelope Sealer Operator JUAN CARLOS KNOBL E November 23, 2021 7:06pm Name of Medical Power of Envelope Sealer Operator Juan Carlos Knobl e February 03, 2022 11:19pm Living Will Yes March 15, 2022 1 :56am Power of Envelope Sealer Operator Yes March 15, 2022 1:56am Advance Directive Response Recorded Date/ Time Name of Medical Power of Envelope Sealer Operator JUAN CARLOS CARREON November 23, 2021 7:06pm Name of Medical Power of Envelope Sealer Operator Juan Carlos Carreon February 03, 2022 11:19pm Name of Medical Power of Envelope Sealer Operator camron Serrano & christian espino March 15, 2022 1:56am Living Will Yes March 18, 2022 6 :31pm Power of Envelope Sealer Operator Yes March 18, 2022 6:31pm Advance Directive Response Recorded Date/ Time Name of Medical Power of Envelope Sealer Operator Juan Carlos Carreon February 03, 2022 11:19pm Name of Medical Power of Envelope Sealer Operator camron Serrano & christian lecmandione March 15, 2022 1:56am Name of Medical Power of Envelope Sealer Operator Juan Carlos Carreon March 22, 2022 4:23pm Living Will Yes March 22, 2022 4:23pm Power of Envelope Sealer Operator Yes March 22 4:23pm Advance Directive Response Recorded Date/ Time Living Will Yes March 22, 2022 3:23pm Power of Envelope Sealer Operator Yes March 22 3:23pm Advance Directive Response Recorded Date/ Time Name of Medical Power of Envelope Sealer Operator emilee and granddaughter are POAs November 20, 2022 8: 51am Living Will Yes November 20, 023 8:51am Power of Envelope Sealer Operator Yes November 20, 2022 8:51am Advance Directive Response Recorded Date/ Time Name of Medical Power of Envelope Sealer Operator recalled September 09, 2023 11:10am Living Will Yes September 09 11:10am Power of Envelope Sealer Operator Yes September 09, 2023 11:10am Advance Directive Response Recorded Date/ Time Name of Medical Power of Envelope Sealer Operator recalled September 09, 2023 4:37pm Living Will Yes September 09 4:37pm Power of Envelope Sealer Operator Yes September 09, 2023 4:37pm Advance Directive Response Recorded Date/ Time Living Will Yes September 09 5:37pm Do you have a Healthcare Pow er of Envelope Sealer Operator? Yes September 09, 2023 5:37pm Do you have a Healthcare Pow er of Envelope Sealer Operator? Yes February 17, 2025 11:17am Name of Medical Power of Envelope Sealer Operator anshul nicolas and camron espino-son February 17, 2025 11:17am Advance Directive Response Recorded Date/ Time Living Will Yes September 09 5:37pm Do you have a Healthcare Pow er of Envelope Sealer Operator? Yes September 09, 2023 5:37pm Do you have a Healthcare Pow er of Envelope Sealer Operator? Yes February 17, 2025 3:23pm Name of Medical Power of Envelope Sealer Operator Camron & Christian cheng & Juan Carlos Aracely February 17, 2025 3:23pm Procedure Findings Note Patient: SHIRA MERRITT Age: 78 years Sex: Female : 1940 Associated Diagnoses: None Author: Dewayne Romero MD Postoperative Information Post Operative Note: Post Anesthesia Care Unit. Anesthetic utilized: General. Health Status Allergies: Allergic Reactions (All) Severity Not Documented Augmentin- Unknown. Codeine Sulfate- Altered mental status. Darvocet A500- No reactions were documented. Darvon- No reactions were documented. Morphine- Restlessness. Sulfamethoxazole- No reactions were documented. Tape- No reactions were documented. Tetanus immune globulin- Rash. Vicodin- Altered mental status. Nonallergic Reactions (All) Severity Not Documented Valium- Altered mental status. Problem list: All Problems At risk for falls / SNOMED CT 333313037 / Possible Problem added when Risk for Falls Careplan was initiated. Clostridium difficile diarrhea / SNOMED CT 4449064868 / Confirmed Problem added secondary to positive C-Diff lab result. Dehydration / SNOMED (more content not included)... Chief Complaint and Reason for Visit Chief Complaint SYNCOPE, GI BLEED SYNCOPE, GI BLEED SYNCOPE, GI BLEED SYNCOPE, GI BLEED SYNCOPE, GI BLEED SYNCOPE, GI BLEED SYNCOPE, GI BLEED SYNCOPE, GI BLEED SYNCOPE, GI BLEED SYNCOPE, GI BLEED SYNCOPE, GI BLEED SYNCOPE, GI BLEED SYNCOPE, GI BLEED arrhythmia AFTER COLON AFTER COLON FU E ORDER ACUTE EXACERBATION OF ULCERATIVE ACUTE EXACERBATION OF ULCERATIVE Reason for Visit Severe malnutrition Exacerbation of ulcerative colitis GI bleed Leukocytosis Ulcerative colitis Ulcerative colitis Ulcerative colitis Chief Complaint SYNCOPE, GI BLEED SYNCOPE, GI BLEED SYNCOPE, GI BLEED SYNCOPE, GI BLEED SYNCOPE, GI BLEED SYNCOPE, GI BLEED SYNCOPE, GI BLEED SYNCOPE, GI BLEED SYNCOPE, GI BLEED SYNCOPE, GI BLEED SYNCOPE, GI BLEED SYNCOPE, GI BLEED SYNCOPE, GI BLEED arrhythmia AFTER COLON AFTER COLON FU E ORDER ACUTE EXACERBATION OF ULCERATIVE ACUTE EXACERBATION OF ULCERATIVE ACUTE EXACERBATION OF ULCERATIVE ACUTE EXACERBATION OF ULCERATIVE ACUTE EXACERBATION OF ULCERATIVE ACUTE EXACERBATION OF ULCERATIVE ACUTE EXACERBATION OF ULCERATIVE ACUTE EXACERBATION OF ULCERATIVE ACUTE EXACERBATION OF ULCERATIVE ACUTE EXACERBATION OF ULCERATIVE ACUTE EXACERBATION OF ULCERATIVE Reason for Visit Severe malnutrition Exacerbation of ulcerative colitis GI bleed Leukocytosis Ulcerative colitis Ulcerative colitis C. difficile colitis Ulcerative colitis Chief Complaint SYNCOPE, GI BLEED SYNCOPE, GI BLEED SYNCOPE, GI BLEED SYNCOPE, GI BLEED SYNCOPE, GI BLEED SYNCOPE, GI BLEED SYNCOPE, GI BLEED SYNCOPE, GI BLEED SYNCOPE, GI BLEED SYNCOPE, GI BLEED SYNCOPE, GI BLEED SYNCOPE, GI BLEED SYNCOPE, GI BLEED arrhythmia AFTER COLON AFTER COLON FU E ORDER ACUTE EXACERBATION OF ULCERATIVE ACUTE EXACERBATION OF ULCERATIVE ACUTE EXACERBATION OF ULCERATIVE ACUTE EXACERBATION OF ULCERATIVE ACUTE EXACERBATION OF ULCERATIVE ACUTE EXACERBATION OF ULCERATIVE ACUTE EXACERBATION OF ULCERATIVE ACUTE EXACERBATION OF ULCERATIVE ACUTE EXACERBATION OF ULCERATIVE ACUTE EXACERBATION OF ULCERATIVE ACUTE EXACERBATION OF ULCERATIVE ACUTE EXACERBATION OF ULCERATIVE ACUTE EXACERBATION OF ULCERATIVE ACUTE EXACERBATION OF ULCERATIVE ACUTE EXACERBATION OF ULCERATIVE ACUTE EXACERBATION OF ULCERATIVE ACUTE EXACERBATION OF ULCERATIVE ACUTE EXACERBATION OF ULCERATIVE Reason for Visit Severe malnutrition Exacerbation of ulcerative colitis GI bleed Leukocytosis Ulcerative colitis Ulcerative colitis C. difficile colitis Ulcerative colitis Chief Complaint SYNCOPE, GI BLEED SYNCOPE, GI BLEED SYNCOPE, GI BLEED SYNCOPE, GI BLEED SYNCOPE, GI BLEED SYNCOPE, GI BLEED SYNCOPE, GI BLEED SYNCOPE, GI BLEED SYNCOPE, GI BLEED SYNCOPE, GI BLEED SYNCOPE, GI BLEED SYNCOPE, GI BLEED SYNCOPE, GI BLEED arrhythmia AFTER COLON AFTER COLON FU E ORDER ACUTE EXACERBATION OF ULCERATIVE ACUTE EXACERBATION OF ULCERATIVE ACUTE EXACERBATION OF ULCERATIVE ACUTE EXACERBATION OF ULCERATIVE ACUTE EXACERBATION OF ULCERATIVE ACUTE EXACERBATION OF ULCERATIVE ACUTE EXACERBATION OF ULCERATIVE ACUTE EXACERBATION OF ULCERATIVE ACUTE EXACERBATION OF ULCERATIVE ACUTE EXACERBATION OF ULCERATIVE ACUTE EXACERBATION OF ULCERATIVE ACUTE EXACERBATION OF ULCERATIVE ACUTE EXACERBATION OF ULCERATIVE ACUTE EXACERBATION OF ULCERATIVE ACUTE EXACERBATION OF ULCERATIVE ACUTE EXACERBATION OF ULCERATIVE ACUTE EXACERBATION OF ULCERATIVE ACUTE EXACERBATION OF ULCERATIVE 6 M FU ABDOMINAL PAIN Reason for Visit Exacerbation of ulce rative colitis GI bleed Leukocytosis Abdominal pain, acute, left lower quadrant Acute abdominal pain Ulcerative colitis Chief Complaint SYNCOPE, GI BLEED SYNCOPE, GI BLEED SYNCOPE, GI BLEED SYNCOPE, GI BLEED SYNCOPE, GI BLEED SYNCOPE, GI BLEED SYNCOPE, GI BLEED SYNCOPE, GI BLEED SYNCOPE, GI BLEED SYNCOPE, GI BLEED SYNCOPE, GI BLEED SYNCOPE, GI BLEED SYNCOPE, GI BLEED arrhythmia AFTER COLON AFTER COLON FU E ORDER ACUTE EXACERBATION OF ULCERATIVE ACUTE EXACERBATION OF ULCERATIVE ACUTE EXACERBATION OF ULCERATIVE ACUTE EXACERBATION OF ULCERATIVE ACUTE EXACERBATION OF ULCERATIVE ACUTE EXACERBATION OF ULCERATIVE ACUTE EXACERBATION OF ULCERATIVE ACUTE EXACERBATION OF ULCERATIVE ACUTE EXACERBATION OF ULCERATIVE ACUTE EXACERBATION OF ULCERATIVE ACUTE EXACERBATION OF ULCERATIVE ACUTE EXACERBATION OF ULCERATIVE ACUTE EXACERBATION OF ULCERATIVE ACUTE EXACERBATION OF ULCERATIVE ACUTE EXACERBATION OF ULCERATIVE ACUTE EXACERBATION OF ULCERATIVE ACUTE EXACERBATION OF ULCERATIVE ACUTE EXACERBATION OF ULCERATIVE 6 M FU ABDOMINAL PAIN ACUTE ABDOMINAL PAIN, RECENT C-DIFF ENTEROCOLITIS ACUTE ABDOMINAL PAIN, RECENT C-DIFF ENTEROCOLITIS ACUTE ABDOMINAL PAIN, RECENT C-DIFF ENTEROCOLITIS ACUTE ABDOMINAL PAIN, RECENT C-DIFF ENTEROCOLITIS ACUTE ABDOMINAL PAIN, RECENT C-DIFF ENTEROCOLITIS ACUTE ABDOMINAL PAIN, RECENT C-DIFF ENTEROCOLITIS ACUTE ABDOMINAL PAIN, RECENT C-DIFF ENTEROCOLITIS Reason for Visit Exacerbation of ulce rative colitis GI bleed Leukocytosis C. difficile colitis C. difficile colitis Acute abdominal pain C. difficile colitis Hypokalemia Hypophosphatemia Leukocytosis Severe malnutrition Ulcerative colitis Chronic anemia Chief Complaint SYNCOPE, GI BLEED SYNCOPE, GI BLEED SYNCOPE, GI BLEED SYNCOPE, GI BLEED SYNCOPE, GI BLEED SYNCOPE, GI BLEED SYNCOPE, GI BLEED SYNCOPE, GI BLEED SYNCOPE, GI BLEED SYNCOPE, GI BLEED SYNCOPE, GI BLEED SYNCOPE, GI BLEED SYNCOPE, GI BLEED arrhythmia AFTER COLON AFTER COLON FU E ORDER ACUTE EXACERBATION OF ULCERATIVE ACUTE EXACERBATION OF ULCERATIVE ACUTE EXACERBATION OF ULCERATIVE ACUTE EXACERBATION OF ULCERATIVE ACUTE EXACERBATION OF ULCERATIVE ACUTE EXACERBATION OF ULCERATIVE ACUTE EXACERBATION OF ULCERATIVE ACUTE EXACERBATION OF ULCERATIVE ACUTE EXACERBATION OF ULCERATIVE ACUTE EXACERBATION OF ULCERATIVE ACUTE EXACERBATION OF ULCERATIVE ACUTE EXACERBATION OF ULCERATIVE ACUTE EXACERBATION OF ULCERATIVE ACUTE EXACERBATION OF ULCERATIVE ACUTE EXACERBATION OF ULCERATIVE ACUTE EXACERBATION OF ULCERATIVE ACUTE EXACERBATION OF ULCERATIVE ACUTE EXACERBATION OF ULCERATIVE 6 M FU ABDOMINAL PAIN ACUTE ABDOMINAL PAIN, RECENT C-DIFF ENTEROCOLITIS ACUTE ABDOMINAL PAIN, RECENT C-DIFF ENTEROCOLITIS ACUTE ABDOMINAL PAIN, RECENT C-DIFF ENTEROCOLITIS ACUTE ABDOMINAL PAIN, RECENT C-DIFF ENTEROCOLITIS ACUTE ABDOMINAL PAIN, RECENT C-DIFF ENTEROCOLITIS ACUTE ABDOMINAL PAIN, RECENT C-DIFF ENTEROCOLITIS ACUTE ABDOMINAL PAIN, RECENT C-DIFF ENTEROCOLITIS ACUTE ABDOMINAL PAIN, U.C.FLARE UP, RECENT C DIFF ACUTE ABDOMINAL PAIN, RECENT C-DIFF ENTEROCOLITIS swelling ACUTE ABDOMINAL PAIN, U.C.FLARE UP, RECENT C DIFF Reason for Visit Exacerbation of ulce rative colitis GI bleed Leukocytosis C. difficile colitis C. difficile colitis Acute abdominal pain C. difficile colitis Hypokalemia Hypophosphatemia Leukocytosis Severe malnutrition Ulcerative colitis Chronic anemia Acute abdominal pain C. difficile colitis Cataract Debility Encephalopathy Hypokalemia Hypophosphatemia Leukocytosis Osteoarthritis Severe malnutrition Ulcerative colitis Chronic anemia Chief Complaint AFTER COLON AFTER COLON FU E ORDER ACUTE EXACERBATION OF ULCERATIVE ACUTE EXACERBATION OF ULCERATIVE ACUTE EXACERBATION OF ULCERATIVE ACUTE EXACERBATION OF ULCERATIVE ACUTE EXACERBATION OF ULCERATIVE ACUTE EXACERBATION OF ULCERATIVE ACUTE EXACERBATION OF ULCERATIVE ACUTE EXACERBATION OF ULCERATIVE ACUTE EXACERBATION OF ULCERATIVE ACUTE EXACERBATION OF ULCERATIVE ACUTE EXACERBATION OF ULCERATIVE ACUTE EXACERBATION OF ULCERATIVE ACUTE EXACERBATION OF ULCERATIVE ACUTE EXACERBATION OF ULCERATIVE ACUTE EXACERBATION OF ULCERATIVE ACUTE EXACERBATION OF ULCERATIVE ACUTE EXACERBATION OF ULCERATIVE ACUTE EXACERBATION OF ULCERATIVE 6 M FU ABDOMINAL PAIN ACUTE ABDOMINAL PAIN, RECENT C-DIFF ENTEROCOLITIS ACUTE ABDOMINAL PAIN, RECENT C-DIFF ENTEROCOLITIS ACUTE ABDOMINAL PAIN, RECENT C-DIFF ENTEROCOLITIS ACUTE ABDOMINAL PAIN, RECENT C-DIFF ENTEROCOLITIS ACUTE ABDOMINAL PAIN, RECENT C-DIFF ENTEROCOLITIS ACUTE ABDOMINAL PAIN, RECENT C-DIFF ENTEROCOLITIS ACUTE ABDOMINAL PAIN, RECENT C-DIFF ENTEROCOLITIS ACUTE ABDOMINAL PAIN, U.C.FLARE UP, RECENT C DIFF ACUTE ABDOMINAL PAIN, RECENT C-DIFF ENTEROCOLITIS swelling ACUTE ABDOMINAL PAIN, U.C.FLARE UP, RECENT C DIFF RIGHT ARM SWELLING Reason for Visit Acute abdominal pain Hypokalemia Hypophosphatemia Leukocytosis Severe malnutrition Debility Acute abdominal pain Cataract Encephalopathy Hypokalemia Hypophosphatemia Leukocytosis Osteoarthritis Severe malnutrition Chief Complaint AFTER COLON FU E ORDER ACUTE EXACERBATION OF ULCERATIVE ACUTE EXACERBATION OF ULCERATIVE ACUTE EXACERBATION OF ULCERATIVE ACUTE EXACERBATION OF ULCERATIVE ACUTE EXACERBATION OF ULCERATIVE ACUTE EXACERBATION OF ULCERATIVE ACUTE EXACERBATION OF ULCERATIVE ACUTE EXACERBATION OF ULCERATIVE ACUTE EXACERBATION OF ULCERATIVE ACUTE EXACERBATION OF ULCERATIVE ACUTE EXACERBATION OF ULCERATIVE ACUTE EXACERBATION OF ULCERATIVE ACUTE EXACERBATION OF ULCERATIVE ACUTE EXACERBATION OF ULCERATIVE ACUTE EXACERBATION OF ULCERATIVE ACUTE EXACERBATION OF ULCERATIVE ACUTE EXACERBATION OF ULCERATIVE ACUTE EXACERBATION OF ULCERATIVE 6 M FU ABDOMINAL PAIN ACUTE ABDOMINAL PAIN, RECENT C-DIFF ENTEROCOLITIS ACUTE ABDOMINAL PAIN, RECENT C-DIFF ENTEROCOLITIS ACUTE ABDOMINAL PAIN, RECENT C-DIFF ENTEROCOLITIS ACUTE ABDOMINAL PAIN, RECENT C-DIFF ENTEROCOLITIS ACUTE ABDOMINAL PAIN, RECENT C-DIFF ENTEROCOLITIS ACUTE ABDOMINAL PAIN, RECENT C-DIFF ENTEROCOLITIS ACUTE ABDOMINAL PAIN, RECENT C-DIFF ENTEROCOLITIS ACUTE ABDOMINAL PAIN, U.C.FLARE UP, RECENT C DIFF ACUTE ABDOMINAL PAIN, RECENT C-DIFF ENTEROCOLITIS swelling ACUTE ABDOMINAL PAIN, U.C.FLARE UP, RECENT C DIFF RIGHT ARM SWELLING STELARA Reason for Visit Acute abdominal pain Hypokalemia Hypophosphatemia Leukocytosis Severe malnutrition Debility Acute abdominal pain Cataract Encephalopathy Hypokalemia Hypophosphatemia Leukocytosis Osteoarthritis Severe malnutrition Chief Complaint 3 M FU 3 MO FU E ORDERS Reason for Visit Ulcerative colitis Ulcerative colitis Chief Complaint 3 MO FU E ORDERS hip, lower extremity pain [facility] FU EORDERS Reason for Visit Ulcerative colitis Osteoarthritis Right anterior knee pain Chief Complaint syncope SYNCOPE, COVID INFECTION, DEBILITY Reason for Visit COVID Debility Syncope Transient hypotension Chief Complaint syncope SYNCOPE, COVID INFECTION, DEBILITY SYNCOPE, COVID INFECTION, DEBILITY Reason for Visit COVID Debility Syncope Transient hypotension Chief Complaint Admit Date 6 M FU November 28, 2024 2:28pm L HEMIPARESIS February 17, 2025 2:27p m L HEMIPARESIS February 17, 2025 2:37p m Reason for Visit Admit Date Ulcerative colitis November 28, 2024 2:28pm Acute left hemiparesis February 17, 2025 2: 27pm Dysequilibrium February 17, 2025 2:27p m Neurologic abnormality February 17, 2025 2: 27pm Thyroid nodule February 17, 2025 2:27p m Chief Complaint Admit Date 6 M FU November 28, 2024 2:28pm CVA/TIA R/O February 17, 2025 2:37p m CVA/TIA R/O February 18, 2025 11:10 am CVA/TIA R/O February 19, 2025 12:10 pm Reason for Visit Admit Date Ulcerative colitis November 28, 2024 2:28pm Acute left hemiparesis February 17, 2025 2: 37pm Dysequilibrium February 17, 2025 2:37p m Neurologic abnormality February 17, 2025 2: 37pm Thyroid nodule February 17, 2025 2:37p m Additional Source Comments INFORMATION SOURCE (unrecogn ized section and content) DATE CREATED AUTHOR 08/20/2019 [facility] DATE CREATED AUTHOR AUTHOR'S ORGANIZ ATION 12/04/2019 [facility] DATE CREATED AUTHOR AUTHOR'S ORGANIZ ATION 04/28/2025 [facility] DATE CREATED AUTHOR AUTHOR'S ORGANIZ ATION 08/20/2025 [facility] Goals (unrecognized section and content) Goals may be documented in a n alternate sectionGoals may be documented in an alternate sectionGoals may be documented in an alternate sectionGoals may be documented in an alternate sectionGoals may be documented in an alternate sectionGoals may be documented in an alternate sectionGoals may be documented in an alternate sectionGoals may be documented in an alternate sectionGoals may be documented in an alternate sectionGoals may be documented in an alternate section Care Teams (unrecognized sec tion and content) Team Status: Active Member Role Status Dates No Primary Care Physician Family Provider Active Varinder Phoenix MANUFACTURING ACCOUNTANT, MANUFACTURING ACCOUNTANT-C Primary Care Provider Active Team Status: Inactive Member Role Status Dates Varinder Phoenix MANUFACTURING ACCOUNTANT, MANUFACTURING ACCOUNTANT-C Primary Care Provider, Referring P demarco Active Dr. Jared Draper , DO Attending Provider Active Team Status: Inactive Member Role Status Dates Varinder Phoenix NP, MANUFACTURING ACCOUNTANT-C Primary Care Provider Active Dr. Jared Draper DO Attending Provider, Referring Provider Active Team Status: Inactive Member Role Status Dates Varinder Phoenix MANUFACTURING ACCOUNTANT, MANUFACTURING ACCOUNTANT-C Primary Care Provide r, Attending Provider, Referring Provider Active Team Status: Inactive Member Role Status Dates Varinder Phoenix NP, MANUFACTURING ACCOUNTANT-C Primary Care Provider Active Dr. Iglesia Batista MD Attending Provider, Emergency Provi osmel Active Team Status: Active Member Role Status Dates Varinder Lizett MANUFACTURING ACCOUNTANT, MANUFACTURING ACCOUNTANT-C Primary Care Provider Active Dr. Dio Webb MD Emergency Provider Active Dr. Uzair Davila DO Attending Provider Active Team Status: Active Member Role Status Dates Varinder Kumarider MANUFACTURING ACCOUNTANT, MANUFACTURING ACCOUNTANT-C Primary Care Provider Active Dr. Dio Webb MD Emergency Provider Active Dr. Uzair Davila DO Admit Provider, Attending Provider Active Team Status: Active Member Role Status Dates Varinder Kumarider MANUFACTURING ACCOUNTANT, MANUFACTURING ACCOUNTANT-C Primary Care Provider Active Dr. Aba Arce MD Attending Provider Active Team Status: Active Member Role Status Dates Varinder Kumarider MANUFACTURING ACCOUNTANT, MANUFACTURING ACCOUNTANT-C Primary Care Provider Active Dr. Dio Webb MD Emergency Provider Active Dr. Uzair Davila DO Admit Provider, Other Pro vider Active Dr. Sandy Paige MD Attending Provider, Other Provid er Active Team Status: Inactive Member Role Status Dates Varinder Kumarider MANUFACTURING ACCOUNTANT, MANUFACTURING ACCOUNTANT-C Primary Care Provider Active Dr. Dio Webb MD Emergency Provider Active Dr. Uzair Davila DO Admit Provider, Other Pro vider Active Dr. 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 Jared Draper DO Attending Provider Active Start: November 28, 2024 End: November 28, 2024 Team Status: Active Member Role Status Dates Varinder Phoenix VSC, MANUFACTURING ACCOUNTANT-C Primary Care Provider Active Start: February 17, 2025 Dr. Reynold Win MD Emergency Provider Active Start: February 17, 2025 Dr. Sandy Paige MD Admit Provider Active Star t: February 17, 2025 Dr. Sandy Paige MD Attending Provider Active Start: February 17, 2025 Dr. Sandy Paige MD Referring Provider Active Start: February 17, 2025 Team Status: Active Member Role Status Dates Varinder Kumarider VSC, MANUFACTURING ACCOUNTANT-C Primary Care Provider Active Start: February 17, 2025 Dr. Reynold Win MD Emergency Provider Active Start: February 17, 2025 Dr. Sandy Paige MD Admit Provider Active Star t: February 17, 2025 Dr. Sandy Paige MD Attending Provider Active Start: February 17, 2025 Dr. Sandy Paige MD Referring Provider Active Start: February 17, 2025 Dr. Sandy Paige MD Other Provider Active Star t: February 17, 2025 Team Status: Inactive Member Role Status Dates Varinder Kumarider VSC, MANUFACTURING ACCOUNTANT-C Primary Care Provider Active Start: February 17, 2025 End: February 19, 2025 Dr. Reynold Win MD Emergency Provider Active Start: February 17, 2025 End: February 19, 2025 Dr. Sandy Paige MD Admit Provider Active Star t: February 17, 2025 End: February 19, 2025 Dr. Sandy Paige MD Referring Provider Active Start: February 17, 2025 End: February 19, 2025 Dr. Sandy Paige MD Other Provider Active Star t: February 17, 2025 End: February 19, 2025 Dr. Chip Fulton MD Attending Provider Active Start: February 17, 2025 End: February 19, 2025 Team Status: Active Member Role Status Dates Varinder Kumarider VSC, MANUFACTURING ACCOUNTANT-C Primary Care Provider Active Start: February 18, 2025 Dr. Aba Arce MD Attending Provider Active S tart: February 18, 2025 Team Status: Active Member Role Status Dates Varinder Kumarider VSC, MANUFACTURING ACCOUNTANT-C Primary Care Provider Active Start: February 18, 2025 Dr. Reynold Win MD Emergency Provider Active Start: February 18, 2025 Dr. Sandy Paige MD Admit Provider Active Star t: February 18, 2025 Dr. Sandy Paige MD Referring Provider Active Start: February 18, 2025 Dr. Sandy Paige MD Other Provider Active Star t: February 18, 2025 Ramos Chambers MD Other Provider Active Start: Ca clair 2024 Dr. Deandra Blancas MD Other Provider Active Start: February 18, 2025 Iraida Rider MD Other Provider Active Start : February 18, 2025 Dr. Noris Valencia DO Other Provider Active St art: February 18, 2025 Dr. Amanda Cullen MD Other Provider Active Start: February 18, 2025 Dr. Jamar Calvillo MD Other Provider Active Sta rt: February 18, 2025 Dr. Janeth Phan MD Other Provider Active Start : February 18, 2025 Dr. Eligio Mitchell MD Other Provider Active Start: February 18, 2025 Dr. Scott Nunez MD Other Provider Active Start : February 18, 2025 Dr. Juan Ramon Kay MD Other Provider Active Sta rt: February 18, 2025 Bozena Chau MD Other Provider Active Start : February 18, 2025 Dr. Jacob Mejia MD Other Provider Active St art: February 18, 2025 Dr. Mavis Giles MD Other Provider Active Start : February 18, 2025 Dr. Lam Lin MD Other Provider Active Sta rt: February 18, 2025 Dr. Tammi Young MD Other Provider Active Start: February 18, 2025 Dr. Grady Sevilla MD Other Provider Active St art: February 18, 2025 Dr. Elvis Maddox MD Other Provider Active Star t: February 18, 2025 Dr. Stanley Clark MD Other Provider Active St art: February 18, 2025 Dr. Michaela Coon MD Other Provider Active Start: February 18, 2025 Varsha Melendez MD Other Provider Active Start: February 18, 2025 Dr. Chip Fulton MD Attending Provider Active Start: February 18, 2025 Dr. Chip Fulton MD Other Provider Active Sta rt: February 18, 2025 Team Status: Active Member Role Status Dates Varinder Phoenix [facility], MANUFACTURING ACCOUNTANT-C Primary Care Provider Active Start: February 19, 2025 Dr. Reynold Win MD Emergency Provider Active Start: February 19, 2025 Dr. Sandy Paige MD Admit Provider Active Star t: February 19, 2025 Dr. Sandy Paige MD Referring Provider Active Start: February 19, 2025 Dr. Sandy Paige MD Other Provider Active Star t: February 19, 2025 Dr. Chip Fulton MD Attending Provider Active Start: February 19, 2025 Dr. 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 Specialty Start Date End Date Tayla RendonJULIEN PCP - General Family Medicine 04/20/16 Field C[employer] I Farmworker Relationship Specialty Start Date End Date Tayla RendonJULIEN PCP - General Family Medicine 04/20/16 Source Comments (unrecognize d section and content) In the event this informatio n is protected by the Federal Confidentiality of Alcohol and Drug Abuse Patient Records regulations: The Federal rules restrict any use of the information to criminally investigate or prosecute any alcohol or drug abuse patient.[facility] [place] the event this information is protected by the Federal Confidentiality of Alcohol and Drug Abuse Patient Records regulations: The Federal rules restrict any use of the information to criminally investigate or prosecute any alcohol or drug abuse patient.[facility] [place] the event this information is protected by the Federal Confidentiality of Alcohol and Drug Abuse Patient Records regulations: The Federal rules restrict any use of the information to criminally investigate or prosecute any alcohol or drug abuse patient.[facility] [place] the event this information is protected by the Federal Confidentiality of Alcohol and Drug Abuse Patient Records regulations: The Federal rules restrict any use of the information to criminally investigate or prosecute any alcohol or drug abuse patient.[facility] [facility] Reason for Visit (unrecogniz ed section and content) Reason Comments Urinary Problem Reason Comments Results Reason Comments Consult Recent TIA Reason Comments Patient Update FOR RECORDS PERTAINING TO PATIENTS WHO ARE OR HAVE BEEN ENROLLED IN A CHEMICAL DEPENDENCY/SUBSTANCEABUSE PROGRAM, SOME INFORMATION MAY BE OMITTED. This clinical summary was aggregated from multiple sources. Caution should be exercised in using it in the provision of clinical care. This summary normalizes information from multiple sources, and as a consequence, information in this document may materially change the coding, format and clinical context of patient data. In addition, data may be omitted in some cases. CLINICAL DECISIONS SHOULD BE BASED ON THE PRIMARY CLINICAL RECORDS. [employer] provides no warranty or guarantee of the accuracy or completeness of information in this document.
[2025-08-21] MEDS: MELATONIN 3 MG TABLET PO (22:49)
[2025-08-22 03:55] VITALS: BP 110/57; PULSE 50; RESP 16; TEMP 36.4; O2SAT 99
--- NOTE | 2025-08-22 05:55 | MRI_ITS ---
PROCEDURE: SPINE THORACIC (ROUTINE) 08/22/2025 REASON FOR EXAM: B/L LEG WEAKNESS TECHNIQUE: Procedure Code: MRISPT Modality: MR Procedure: SPINE THORACIC (ROUTINE) Multiplanar and multisequence images were obtained. CONTRAST: None COMPARISON: None FINDINGS: T1-2, there is no spinal stenosis or foraminal narrowing T2-3, there is no spinal stenosis or foraminal narrowing T3-4, there is no spinal stenosis or foraminal narrowing T4-5, there is no spinal stenosis or foraminal narrowing T5-6, there is no spinal stenosis or foraminal narrowing T6-7, there is no spinal stenosis or foraminal narrowing T7-8, there is no spinal stenosis or foraminal narrowing T8-9, there is no spinal stenosis or foraminal narrowing T9-10, there is no spinal stenosis or foraminal narrowing T10-11, there is no spinal stenosis or foraminal narrowing T11-12, there is no spinal stenosis or foraminal narrowing T12-L1, there is no spinal stenosis or foraminal narrowing Vertebral body height and alignment are well maintained. There is a 1.9 cm intermediate to low T2, high T1 signal hemangioma at the T9 level. Vertebral body marrow signal is normal. There is mild loss of intervertebral disc signal in the mid thoracic region. There is no significant disc protrusion, spinal stenosis or neural foraminal stenosis identified in the thoracic region. The thoracic cord shows normal signal characteristics. The adjacent soft tissues are unremarkable. No evidence of occult traumatic injury is seen. MRI/Spine Thoracic (Routine) IMPRESSION: There is no spinal stenosis or significant foraminal narrowing in the thoracic region. Reading Location: [facility]
--- NOTE | 2025-08-22 05:55 | MRI_ITS ---
EXAM: BRAIN WITHOUT CONTRAST CLINICAL HISTORY: B/L LEG WEAKNESS COMPARISON: August 21, 2025 CT TECHNIQUE: Multiplanar, multisequence MR images of the brain were obtained without gadolinium contrast material. FINDINGS: No intracranial hemorrhage, mass, mass effect, midline shift or pathologic extra- axial fluid collection. No hydrocephalus. There is abnormal increased T2 and FLAIR signal in the deep white matter with mild bilateral white matter disease. No areas of restricted diffusion to suggest acute ischemia or infarction. No gradient signal blooming artifacts are identified. No cerebellar tonsillar ectopia. No sellar/suprasellar signal abnormalities. The ocular globes and intraorbital soft tissues are symmetrically unremarkable. Paranasal sinuses are essentially clear. MRI/Brain without Contrast IMPRESSION: There is abnormal increased T2 and FLAIR signal in the deep white matter with m ild bilateral white matter disease. There is no acute restricted diffusion [facility]
[2025-08-22 08:17] VITALS: BP 141/70; PULSE 55; RESP 16; TEMP 36.6; O2SAT 98
--- NOTE | 2025-08-22 10:48 | NEURO.CONS ---
Assessment and Plan: Neuro Assessment/Plan JOANN MERRITT is a 85 F with a history of hallucinations, being evaluated by Teleneurology for confusion/hallucination identical to those of 10 days prior. MRI is reassuring. Her hallucinations seem to be clustered around hour of sleep and hypnagogic/hypnopompic hallucinations are generally benign compared to other etiologies, though they can signal early Parkinson's, which I see no other signs of on her exam. They can also signal depression. Her insight into the hallucinations and the content of the hallucinations (emotionally meaningful, fully shaped, non-bizarre, non-command) all suggest this is a parasomnia or a mood disorder. While she could benefit from psychiatric evaluation and from outpatient neurological follow up I would not at this time recommend starting an antipsychotic, which has significant risk for an 85 year old with unclear benefit. Agree with PT and safety assessment. Diagnosis: hypnopompic hallucination Plan: agree with psychiatric consultation amb referral to outpatient neurology I personally attended this patient and spent a total time of 30 minutes evaluating this patient including clinical assessment, review of chart, medical history imaging, and determining appropriate treatment and workup. Grady Sevilla MD Synoptic Meteorologist [facility] Teleneurology HPI Consult Data Date of Consult: 08/22/25 HPI Narrative HPI Narrative: JOANN MERRITT, is a 85 F with ulcerative colitis who presents with weakness and hallucinations. Her presentation is extremely similar to one ten days ago, with identical hallucinations: in both cases her father, who she never met and knows only from pictures. Unprompted, she remarks that she sees and hears things but these are a lot like dreams, and on further closer questioning endorses hallucinations clustering around waking or sleeping and not occuring middle of the day. She asks, unprompted "isn't it normal to dream." She had good insight into the hallucination which was not command or bizarre and is an able and willing historian in general. [facility] Medical History Non-smoker Osteoarthritis Right anterior knee pain History of colon cancer Chronic anemia Ulcerative colitis C. difficile colitis Ulcerative colitis Severe malnutrition Cataract Arthritis Seasonal allergies History of colon cancer Home Medications Medication Instructions Recorded Last Taken Type ustekinumab 90 mg/mL subcutaneous 90 mg subcut Q8W 12 months #1 mL 06/26/24 02/04/25 Rx syringe (Stelara) aspirin 81 mg chewable tablet 81 mg PO BREAKFAST heart health 30 02/19/25 Unknown Rx days #30 tabs Allergy/AdvReac Type Severity Reaction Status Date / Time Sulfa (Sulfonamide Allergy Rash Verified 08/21/25 09:58 Antibiotics) amoxicillin (From Augmentin) AdvReac Vomiting Verified 08/21/25 09:58 clavulanic acid (From AdvReac Vomiting Verified 08/21/25 09:58 Augmentin) fexofenadine (From Rose) AdvReac Other Verified 08/21/25 09:58 hydrocodone AdvReac "out of it" Verified 08/21/25 09:58 Family History Mother No problems noted. Grandmother Arthritis Grandfather Arthritis Other Heart disease Surgical History History of appendectomy History of cholecystectomy H/O breast biopsy Surgical history of tubal ligation S/P partial colectomy S/P cholecystectomy Social History household members: family housing: house Smoking Status: Never smoker alcohol intake: never substance use type: does not use what type of physical activity do you participate in: walking frequency: daily Vital Signs Vital Signs Vital Signs: 08/21/25 12:00 08/21/25 13:03 08/21/25 14:00 Temperature 97.7 F L Temperature Source Pulse Rate 51 L 56 L 55 L Respiratory Rate 10 L 13 18 Respiratory Effort Respiratory Depth Respiratory Pattern Blood Pressure 157/83 H 152/61 H Blood Pressure Mean 107 91 Blood Pressure Source Blood Pressure Position Blood Pressure Location Pulse Ox 100 98 97 Oxygen Delivery Method 08/21/25 16:00 08/21/25 17:30 08/21/25 18:00 Temperature 97.7 F L Temperature Source Oral Pulse Rate 64 58 L Respiratory Rate 17 Respiratory Effort Normal Non-Labored Respiratory Depth Normal Respiratory Pattern Normal Blood Pressure 142/70 H Blood Pressure Mean 94 Blood Pressure Source Monitor Blood Pressure Position Semi-Fowlers Blood Pressure Location Left Arm Pulse Ox 97 97 Oxygen Delivery Method Room Air Room Air 08/21/25 20:44 08/21/25 21:23 08/22/25 03:55 Temperature 98 F 97.5 F L Temperature Source Temporal Oral Pulse Rate 60 50 L Respiratory Rate 16 16 Respiratory Effort Normal Non-Labored Respiratory Depth Normal Respiratory Pattern Normal Blood Pressure 149/66 H 110/57 L Blood Pressure Mean 93 74 Blood Pressure Source Monitor Monitor Blood Pressure Position Semi-Fowlers Semi-Fowlers Blood Pressure Location Left Arm Left Arm Pulse Ox 97 99 Oxygen Delivery Method Room Air Room Air Room Air 08/22/25 08:17 08/22/25 08:24 08/22/25 09:00 Temperature 97.8 F Temperature Source Oral Pulse Rate 55 L Respiratory Rate 16 Respiratory Effort Normal Non-Labored Respiratory Depth Normal Respiratory Pattern Normal Blood Pressure 141/70 H Blood Pressure Mean 93 Blood Pressure Source Monitor Blood Pressure Position Semi-Fowlers Blood Pressure Location Left Arm Pulse Ox 98 Oxygen Delivery Method Room Air Room Air Room Air Weight Weight: 50.6 kg Body Mass Index (BMI) 19.8 EEG Results Procedure Details EEG Procedure Details: JOANN MERRITT is a 85 year old F with a past medical history of , who presents for evaluation of Electroencephalogram on DATE at TIME Physical Exam Neuro Neuro Narrative: AOx4, language unimpaired, able and willing historian. EOMI, face symmetric, facial sensation intact, no dysarthria or hypophonia, rotation intact, strength 5/5 at SA/EE/EF/Blacksmith Helper/HF/DF wiht sensation intact to light touch in distal extremities. HtS intact. No tremor or bradykinesia. Lab / Micro Data 08/21/25 10:20 08/21/25 10:20 Labs: Laboratory Results - last 24 hr 08/21/25 10:20: WBC 7.0, RBC 4.85, Hgb 14.5, Hct 44.9, MCV 92.6, MCH 29.9, MCHC 32.3, RDW Std Deviation 44.8 H, RDW Coeff of Rhonda 13.1, Plt Count 173, MPV 12.7 H, Immature Gran % (Auto) 0.300, Neut % (Auto) 63.7, Lymph % (Auto) 26.6, [place] % (Auto) 7.0, Eos % (Auto) 0.7, Baso % (Auto) 1.7 H, Absolute Neuts (auto) 4.4, Absolute Lymphs (auto) 1.86, Nucleated RBC % 0, Sodium 143, Potassium 4.9, Chloride 109 H, Carbon Dioxide 26.1, Anion Gap 8, BUN 15, Creatinine 0.89, Estim Creat Clear Calc 39.22 L, Est GFR (MDRD) Non-Af 64, BUN/Creatinine Ratio 16.6, Glucose 97, Calcium 9.0, Magnesium 2.4 H, Total Bilirubin 0.50, AST 18, ALT 7, Alkaline Phosphatase 66, Total Creatine Kinase 43, Total Protein 6.3, Albumin 3.9, Globulin 2.4, Albumin/Globulin Ratio 1.6, TSH 0.892, Free T4 1.10, Free T3 pg/dL 2.9 08/21/25 10:58: Urine Color Yellow, Urine Clarity Clear, Urine pH 7.0, Ur Specific [place] 1.010, Urine Protein Negative, Urine Glucose (UA) Normal, Urine Ketones Negative, Urine Occult Blood 10 H, Urine Nitrite Negative, Urine Bilirubin Negative, Urine Urobilinogen Normal, Ur Leukocyte Esterase Negative, Urine RBC 0 SEEN, Urine WBC 0-5 SEEN, Ur Squamous Epith Cells 0-5 SEEN, Urine Bacteria 0 SEEN, Urine Mucus 0 SEEN 08/22/25 04:56: TSH 1.380 Imaging Radiology Impression Brain CT 08/21/25 10:33 IMPRESSION: CHRONIC CHANGES. NO ACUTE FINDINGS. Reading Location: [facility] Brain MRI 08/22/25 05:55 IMPRESSION: There is abnormal increased T2 and FLAIR signal in the deep white matter with mild bilateral white matter disease. There is no acute restricted diffusion Reading Location: [facility] Active Medications Active Medications Active Medications: Current Medications Generic Name Dose Route Start Last Admin Trade Name Freq PRN Reason Stop Dose Admin Acetaminophen 650 mg 08/21/25 17:29 08/21/25 22:50 Acetaminophen 325 Mg Tablet PO 650 mg Q6H PRN PRN Administration Pain 1-10 Or Fever>100.7 Aspirin 81 mg 08/22/25 08:00 08/22/25 09:15 Aspirin 81 Mg Tab.Chew PO 81 mg BREAKFAST ROBERTO Administration Enoxaparin Sodium 40 mg 08/21/25 18:00 08/22/25 09:15 Enoxaparin 40 Mg/0.4 Ml Syringe SC 40 mg DAILY ROBERTO Administration Ergocalciferol 1.25 mg 08/21/25 13:00 08/21/25 13:24 Ergocalciferol 1.25 Mg (50, 000 Unit) Capsule PO 1.25 mg QWEEK ROBERTO Administration Lactated Ringer's 1,000 mls @ 5 mls/hr 08/21/25 17:29 08/21/25 19:08 IV 08/23/25 17:28 Not Given .Q48H ROBERTO Sodium Chloride 250 mls @ 15 mls/hr 08/21/25 17:31 IV .[id number] PRN Saline Flush Sodium Chloride 250 mls @ 15 mls/hr 08/21/25 17:31 IV .[id number] PRN Additional IVPB Infusion Lorazepam 0.5 mg 08/22/25 07:00 Lorazepam 2 Mg/Ml Syringe IV X1 PRN Anxiety with MRI Melatonin 3 mg 08/21/25 22:08 08/21/25 22:49 Melatonin 3 Mg Tablet PO 3 mg QHS PRN PRN Administration SLEEP Nitroglycerin 0.4 mg 08/21/25 17:29 Nitroglycerin (Inpatient Use) 0.4 Mg Tab.Subl SL Q5M PRN CARDIAC/CHEST PAIN Senna/Docusate Sodium 2 tablet 08/21/25 17:29 Senna/Docusate Sodium 1 Tablet PO BID PRN PRN Constipation Sodium Chloride 10 - 40 ml 08/21/25 17:31 0.9% Saline Lock 10 Ml Syringe IV UD PRN SALINE FLUSH
--- NOTE | 2025-08-22 14:11 | CASEMGMT ---
Social Work Per imaging pt negative for stroke, therefore PHQ9 not completed. FRANKLIN Navarrete
--- NOTE | 2025-08-22 14:43 | PN.HOSP_ITS ---
Reason for Visit Chief Complaint: Could not walk/ambulate. Objective Data Objective Data Vital Signs: Vital Signs Temp Pulse Resp BP Pulse Ox O2 Del Method 97.8 F 55 L 16 141/70 H 98 Room Air 08/22/25 08:17 08/22/25 08:17 08/22/25 08:17 08/22/25 08:17 08/22/25 08:17 08/22/25 09:00 Oxygen Delivery Method Room Air Weight: 111 lb 8.862 oz Body Mass Index (BMI) 19.8 Intake & Output: Intake and Output for Last 24 Hours 08/20/25 08/21/25 08/22/25 23:59 23:59 23:59 Intake Total 1000 / 1000 Balance 1000 / 1000 Lab / Micro Data 08/21/25 10:20 08/21/25 10:20 Labs: Laboratory Results - last 24 hr 08/21/25 10:20: Magnesium 2.4 H, Total Creatine Kinase 43 08/22/25 04:56: TSH 1.380 Radiography Diagnostic Testing: Radiology Impression Brain MRI 08/22/25 05:55 IMPRESSION: There is abnormal increased T2 and FLAIR signal in the deep white matter with mild bilateral white matter disease. There is no acute restricted diffusion Reading Location: [facility] Thoracic Spine MRI 08/22/25 05:55 IMPRESSION: There is no spinal stenosis or significant foraminal narrowing in the thoracic region. Reading [facility] Physical Exam Narrative Seen and examined Patient stated that she is able to stand up and walked without automotive service assistant from PT on walker on the hallway under their supervision. Earlier Dr. Carter called me that MRI thoracic spine without acute abnormality. moderate to significant improvement in leg muscle strength Physical exam General: Alert, Oriented x3, Cooperative. BMI 20.0 kg/m² HEENT: Atraumatic, PERRLA, EOMI, Normocephalic. Oral: No Gingival or Mucosal Lesions/ Ulcerations Neck: Supple, No JVD, Negative Carotid Bruits Chest wall/Lungs: Air entry diminished in bilateral lung bases. No crepitation/rhonchi Cardiovascular: Regular rate and rhythm, Normal S1,S2, systolic murmur. Abdomen: Bowel Sounds Present, Soft, Non Tender, Non-Distended : No dysuria. No renal angle tenderness. No suprapubic tenderness. Extremities: No edema, Capillary Refill Less than 3 Seconds Skin: No rashes, No breakdown Musculoskeletal: Muscle strength 4+/5 at bilateral knees and hip joints. Bilateral legs, no drift noticed today. No Tenderness to Palpation of Joints or Extremities Neurological: Cranial nerves II-XII grossly intact, DTR 2/4. No acute focal neurological deficit involving bladder, bowel, speech or dysphagia. No facial droop. Psych/Mental Status: Intermittent hallucination, sometimes confusion. Assessment & Plan Assessment/Plan (1) Debility: (2) Osteoarthritis: (3) Generalized weakness: (4) Altered mental status: PLAN: Plan This 85-year-old female is being admitted for evaluation of inability to stand up or walk since morning of the day of admission. 1. Acute debility/impaired ADL due to bilateral lower leg musculoskeletal weakness/paraparesis, probably due to inflammatory or autoimmune with history of bilateral knees and hips degenerative arthritis: Exact etiology unclear but seems more musculoskeletal. She denies history of acute or chronic back pain and does not have a history of spinal disc herniation. On exam, does not seem focal lateralization sign like a stroke and she had MRI on 08/09 which ruled out acute intracranial abnormality or stroke. Patient is being admitted on [facility] floor. Discussed with orthopedic surgeon Dr. Carter. MRI brain and thoracic spine ordered for tomorrow a.m. CT head does not show acute intracranial abnormality. PT OT and CM consultation for SNF placement. 08/22: MRI brain and MRI thoracic spine reviewed. MRI brain no acute findings similar to the MRI of 07/22 with mild bilateral chronic white matter disease. MRI thoracic spine reported no spinal stenosis or significant foraminal narrowing in the thoracic region. Orthopedic spine surgeon Dr. Dg Agarwal called me to inform that MRI thoracic spine looks normal and patient does not have any back pain or has history of back pain therefore does not need to be seen I canceled the consult. Patient walked in the hallway on walker without assistance under supervision of PT. MRI findings discussed with the patient's son near the bedside. I think yesterday leg weakness might have psychogenic cause. 2. 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 During previous admission first week of August she also had hallucinations, sometimes blurry vision and workup for stroke was negative. She does not have fever, focal symptoms of URI, UTI, abdominal pain/acute GI symptoms or suspicion for infection. 08/22: No acute hallucination. 3. Chronic ulcerative colitis in remission: She is on his Stelara as an outpatient. Does not have acute diarrhea or GI bleed or abdominal pain. 4. Chronic anemia: Currently H&H is 14.5/45%. CBC normal limit. She has history of colon cancer. 5. DVT prophylaxis moderate risk for enoxaparin 40 mg subcu daily. Living will/advanced directive/end of life care: Patient does have living will or advanced directive. Her both son including 1 son in ED is power of [place] attorney for health. After discussion of benefits/risks procedures involved with full code, DNR CC arrest and DNR CC, the patient opted for DNR CC with no intubation Patient doesn't want artificial life support including intubation, tube feed, ventilator and/chest compression, central venous catheter, vasopressor and DC shock if needed Total time spent in [id number]-[id number] encounter in discussion of advanced directive 17 minutes. Laboratory Results 08/21/25 10:20: WBC 7.0, RBC 4.85, Hgb 14.5, Hct 44.9, MCV 92.6, MCH 29.9, MCHC 32.3, RDW Std Deviation 44.8 H, RDW Coeff of Rhonda 13.1, Plt Count 173, MPV 12.7 H , Immature Gran % (Auto) 0.300, Neut % (Auto) 63.7, Lymph % (Auto) 26.6, [place] % (Auto) 7.0, Eos % (Auto) 0.7, Baso % (Auto) 1.7 H, Absolute Neuts (auto) 4.4, Absolute Lymphs (auto) 1.86, Nucleated RBC % 0, Sodium 143, Potassium 4.9, C hloride 109 H, Carbon Dioxide 26.1, Anion Gap 8, BUN 15, Creatinine 0.89, Estim Creat Clear Calc 39.22 L, Est GFR (MDRD) Non-Af 64, BUN/Creatinine Ratio 16.6, Glucose 97, Calcium 9.0, Total Bilirubin 0.50, AST 18, ALT 7, Alkaline Phosphatase 66, Total Protein 6.3, Albumin 3.9, Globulin 2.4, Albumin/Globulin Ratio 1.6, TSH 0.892, Free T4 1.10, Free T3 pg/dL 2.9 08/21/25 10:58: Urine Color Yellow, Urine Clarity Clear, Urine pH 7.0, Ur Specific [place] 1.010, Urine Protein Negative, Urine Glucose (UA) Normal, Urine Ketones Negative, Urine Occult Blood 10 H, Urine Nitrite Negative, Urine Bilirubin Negative, Urine Urobilinogen Normal, Ur Leukocyte Esterase Negative, Urine RBC 0 SEEN, Urine WBC 0-5 SEEN, Ur Squamous Epith Cells 0-5 SEEN, Urine Bacteria 0 SEEN, Urine Mucus 0 SEEN Clinical Impression(s) from Imaging Studies Brain CT 08/21/25 10:33 IMPRESSION: CHRONIC CHANGES. NO ACUTE FINDINGS. Brain MRI 08/22/25 05:55 IMPRESSION: There is abnormal increased T2 and FLAIR signal in the deep white matter with mild bilateral white matter disease. There is no acute restricted diffusion Thoracic Spine MRI 08/22/25 05:55 IMPRESSION: There is no spinal stenosis or significant foraminal narrowing in the thoracic region. Reading Location: [facility] Charges/Coding Visit Charges Inpatient E&M: 04058 Subs Hosp L2
[2025-08-22 15:00] VITALS: BP 124/53; PULSE 75; RESP 16; TEMP 36.6; O2SAT 97
--- NOTE | 2025-08-22 15:33 | CHAPLAIN ---
Type of Pastoral Visit _x__ Initial Visit ___ Follow-up Visit ___ On-call Visit ___ General Patient Visit ___ Spiritual Assessment ___ Family Conference ___ Bereavement ___ Rapid Response ___ Code Blue ___ Other (describe below) Pastoral Care Referral From _x__ Patient _x__ Family ___ Nurse ___ Physician ___ Senior Net Software Engineer ___ Olive Knocker ___ Other (describe below) Sacrament/Intervention _x__ Active listening ___ Anointing ___ Tenriism ___ Bereavement ___ Communion ___ Berna exploration ___ ___ Life review _x__ Prayer ___ Reconciliation ___ Sacrament of Sick _x__ Supportive presence ___ Wedding ___ Other (describe below) Pastoral Comments patient is more talkative with this hydraulic punch press operator today than in the last visit; her son is with her and he is interactive as well as both have been seen before in previous admissions; some updates on life are given; pt is sounding resigned "to whatever happens, and if I find out what this is or not, or if I wake up or don't"; both enter into more casual and generic conversations while denying anything specific that needs to happen; prayer is welcomed
[2025-08-22 20:46] VITALS: BP 119/77; PULSE 60; RESP 16; TEMP 36.6; O2SAT 97
[2025-08-23 03:00] VITALS: BP 120/66; PULSE 66; RESP 16; TEMP 36.6; O2SAT 98
[2025-08-23 04:32] VITALS: BP 116/66; PULSE 59; RESP 18; TEMP 36.6; O2SAT 96
--- NOTE | 2025-08-23 08:17 | PCM.DC ---
Discharge Instructions DC O2, CPAP, BIPAP needs Home O2 Discharge instructions: No Follow Up Care Test Results: Test results from this visit will be discussed in further detail at your follow-up appointment, if applicable. Discharge Plan Admission Admit Date/Time: 08/21/25 15:53 Attending Provider: Chip Fulton Primary Care Provider: Varinder Phoenix Consulting Providers: Ramos Chambers; Deandra Blancas; Iraida Rider; Noris Valencia; Amanda Cullen; Jamar Calvillo; Janeth Phan; Eligio Mitchell; Scott Nunez; Juan Ramon Kay; Jacqueline Oglesby; Bozena Chau; Jacob Mejia; Mavis Giles; Lam Lin; Tammi Young; Grady Sevilla; Elvis Maddox; Stanley Clark; Michaela Coon; Varsha Melendez Discharge Orders/Prescriptions Prescriptions: New meclizine [Travel-Ease (meclizine)] 25 mg Tablet 12.5 mg PO TID PRN PRN (Reason: Dizziness) Qty: 30 0RF Continued aspirin 81 mg Tablet,Chewable 81 mg PO BREAKFAST 30 Days Qty: 30 3RF Stelara 90 mg/mL syringe 90 mg subcut Q8W 360 Days Qty: 1 6RF Rx Instructions: Inject one syringe SQ every 8 weeks starting 8 weeks after induction infusion. Referrals / Follow Up: Robert Beard DO [Med Staff - Purchasing Department Clerk, Psychiatry] - Within 1 Month Referral Note: Hypnagogic/hypnopompic hallucination, possible depression/mood disorder. Varinder Phoenix [facility], TEST BORER HELPER-C [Primary Care Provider, Family Practice] Disposition Disposition (needs filled in before D/C Order can be placed): Home, Self Care
[2025-08-23 09:40] VITALS: BP 124/63; PULSE 61; RESP 16; TEMP 36.6; O2SAT 96
[2025-08-23 10:12] VITALS: O2SAT 96
--- NOTE | 2025-08-23 13:29 | DS.PCM_ITS ---
Providers Date of Admission: 08/21/25 Date of Discharge: 08/23/25 Primary Care Physician: Varinder Phoenix, JULIEN-Roxanne Consultations 08/21/25 16:18 Consult: Tele-Neurology Routine Consulting Provider: [facility] Reason for Consult: B/L sudden onset motor leg weakness EMERGENT Consult: No MD Notified: Yes Date Notified: 08/21/25 Time Notified: 16:18 Method of Notification: Answering Service Nursing Unit Staff Notify [facility] of Tele-Neurology Consult: Yes Reason For Visit: FAILURE TO THRIVE Diagnosis Discharge Diagnosis (1) Debility: Status: Acute Code(s): R53.81 - Other malaise (2) Osteoarthritis: Status: Acute Code(s): M19.90 - Unspecified osteoarthritis, unspecified site (3) Generalized weakness: Status: Acute Code(s): R53.1 - Weakness (4) Altered mental status: Status: Acute Code(s): R41.82 - Altered mental status, unspecified Plan This 85-year-old female is being admitted for evaluation of inability to stand up or walk since morning of the day of admission. 1. Acute debility/impaired ADL due to bilateral lower leg musculoskeletal weakness/paraparesis, probably due to inflammatory or autoimmune with history of bilateral knees and hips degenerative arthritis: Exact etiology unclear but seems more musculoskeletal. She denies history of acute or chronic back pain and does not have a history of spinal disc herniation. On exam, does not seem focal lateralization sign like a stroke and she had MRI on 08/09 which ruled out acute intracranial abnormality or stroke. Patient [facility]. Discussed with orthopedic surgeon Dr. Carter. MRI brain and thoracic spine ordered for tomorrow a.m. CT head does not show acute intracranial abnormality. PT OT and CM consultation for SNF placement. 08/22: MRI brain and MRI thoracic spine reviewed. MRI brain no acute findings similar to the MRI of 07/22 with mild bilateral chronic white matter disease. MRI thoracic spine reported no spinal stenosis or significant foraminal narrowing in the thoracic region. Orthopedic spine surgeon Dr. Dg Agarwal called me to inform that MRI thoracic spine looks normal and patient does not have any back pain or has history of back pain therefore does not need to be seen I canceled the consult. Patient walked in the hallway on walker without assistance under supervision of PT. MRI findings discussed with the patient's son near the bedside. I think yesterday leg weakness might have psychogenic cause. 08/23: Patient was evaluated by neurologist. Impression was possible parasomnia or a mood disorder with hypnagogic/hypnopompic hallucination (full descript, emotionally meaningful, noncommand/nonbizarre; remembers after she wakes up). Suggested psychiatrist evaluation as an outpatient therefore referred to Dr. Beard. Patient does not need antipsychotic medication. Patient also feeling dizzy in the morning and was given Antivert which made her better. 2. 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 During previous admission first week of August she also had hallucinations, sometimes blurry vision and workup for stroke was negative. She does not have fever, focal symptoms of URI, UTI, abdominal pain/acute GI symptoms or suspicion for infection. 08/22: No acute hallucination. 3. Chronic ulcerative colitis in remission: She is on his Stelara as an outpatient. Does not have acute diarrhea or GI bleed or abdominal pain. 4. Chronic anemia: Currently H&H is 14.5/45%. CBC normal limit. She has history of colon cancer. 5. DVT prophylaxis moderate risk for enoxaparin 40 mg subcu daily. Living will/advanced directive/end of life care: Patient does have living will or advanced directive. Her both son including 1 son in ED is power of commercial litigation attorney for health. After discussion of benefits/risks procedures involved with full code, DNR CC arrest and DNR CC, the patient opted for DNR CC with no intubation Patient doesn't want artificial life support including intubation, tube feed, ventilator and/chest compression, central venous catheter, vasopressor and DC shock if needed Laboratory Results 08/21/25 10:20: WBC 7.0, RBC 4.85, Hgb 14.5, Hct 44.9, MCV 92.6, MCH 29.9, MCHC 32.3, RDW Std Deviation 44.8 H, RDW Coeff of Rhonda 13.1, Plt Count 173, MPV 12.7 H , Immature Gran % (Auto) 0.300, Neut % (Auto) 63.7, Lymph % (Auto) 26.6, Wheeler % (Auto) 7.0, Eos % (Auto) 0.7, Baso % (Auto) 1.7 H, Absolute Neuts (auto) 4.4, Absolute Lymphs (auto) 1.86, Nucleated RBC % 0, Sodium 143, Potassium 4.9, C hloride 109 H, Carbon Dioxide 26.1, Anion Gap 8, BUN 15, Creatinine 0.89, Estim Creat Clear Calc 39.22 L, Est GFR (MDRD) Non-Af 64, BUN/Creatinine Ratio 16.6, Glucose 97, Calcium 9.0, Total Bilirubin 0.50, AST 18, ALT 7, Alkaline Phosphatase 66, Total Protein 6.3, Albumin 3.9, Globulin 2.4, Albumin/Globulin Ratio 1.6, TSH 0.892, Free T4 1.10, Free T3 pg/dL 2.9 08/21/25 10:58: Urine Color Yellow, Urine Clarity Clear, Urine pH 7.0, Ur Specific [place] 1.010, Urine Protein Negative, Urine Glucose (UA) Normal, Urine Ketones Negative, Urine Occult Blood 10 H, Urine Nitrite Negative, Urine Bilirubin Negative, Urine Urobilinogen Normal, Ur Leukocyte Esterase Negative, Urine RBC 0 SEEN, Urine WBC 0-5 SEEN, Ur Squamous Epith Cells 0-5 SEEN, Urine Bacteria 0 SEEN, Urine Mucus 0 SEEN Clinical Impression(s) from Imaging Studies Brain CT 08/21/25 10:33 IMPRESSION: CHRONIC CHANGES. NO ACUTE FINDINGS. Brain MRI 08/22/25 05:55 IMPRESSION: There is abnormal increased T2 and FLAIR signal in the deep white matter with mild bilateral white matter disease. There is no acute restricted diffusion Thoracic Spine MRI 08/22/25 05:55 IMPRESSION: There is no spinal stenosis or significant foraminal narrowing in the thoracic region. Reading Location: [facility] Medications at Discharge Home Medications ustekinumab 90 mg/mL subcutaneous syringe (Stelara) 90 mg subcut Q8W 12 months #1 mL 06/26/24 aspirin 81 mg chewable tablet 81 mg PO BREAKFAST [facility] 30 days #30 tabs 02/19/25 meclizine 25 mg tablet (Travel-Ease (meclizine)) 12.5 mg (1/2 x 25 mg) PO TID PRN PRN Dizziness #30 tabs 08/23/25 Physical Exam Narrative Seen and examined Patient walked in the hallway. Her baseline Earlier Dr. Carter called me that MRI thoracic spine without acute abnormality. moderate to significant improvement in leg muscle strength Physical exam General: Alert, Oriented x3, Cooperative. BMI 20.0 kg/m² HEENT: Atraumatic, PERRLA, EOMI, Normocephalic. Oral: No Gingival or Mucosal Lesions/ Ulcerations Neck: Supple, No JVD, Negative Carotid Bruits Chest wall/Lungs: Air entry diminished in bilateral lung bases. No crepitation/rhonchi Cardiovascular: Regular rate and rhythm, Normal S1,S2, systolic murmur. Abdomen: Bowel Sounds Present, Soft, Non Tender, Non-Distended : No dysuria. No renal angle tenderness. No suprapubic tenderness. Extremities: No edema, Capillary Refill Less than 3 Seconds Skin: No rashes, No breakdown Musculoskeletal: Muscle strength 4+/5 at bilateral knees and hip joints. Bilateral legs, no drift noticed today. No Tenderness to Palpation of Joints or Extremities Neurological: Cranial nerves II-XII grossly intact, DTR 2/4. No acute focal neurological deficit involving bladder, bowel, speech or dysphagia. No facial droop. Psych/Mental Status: Intermittent hallucination, sometimes confusion. Weight / BMI Weight Weight: 111 lb 8.862 oz Body Mass Index (BMI) 19.8 ABG / Lab / Microbiology Data 08/21/25 10:20 08/21/25 10:20 D/C Instructions DC O2, CPAP, BIPAP Needs Home O2 Discharge instructions: No Meaningful Use Info Meaningful Use Meaningful Use Diagnoses (Choose all that apply): None applicable Discharge Plan Admission Admit Date/Time: 08/21/25 15:53 Attending Provider: Chip Fulton Primary Care Provider: Varinder Phoenix [facility] Consulting Providers: Ramos Chambers; Deandra Blancas; Iraida Rider; Noris Valencia; Amanda Cullen; Jamar Calvillo; Janeth Phan; Eligio Mitchell; Scott Nunez; Juan Ramon Kay; Jacqueline Oglesby; Bozena Chau; Jacob Mejia; Mavis Giles; Lam Lin; Tammi Young; Grady Sevilla; Elvis Maddox; Stanley Clark; Michaela Coon; Varsha Melendez Discharge Orders/Prescriptions Prescriptions: New meclizine [Travel-Ease (meclizine)] 25 mg Tablet 12.5 mg PO TID PRN PRN (Reason: Dizziness) Qty: 30 0RF Continued aspirin 81 mg Tablet,Chewable 81 mg PO BREAKFAST 30 Days Qty: 30 3RF Stelara 90 mg/mL syringe 90 mg subcut Q8W 360 Days Qty: 1 6RF Rx Instructions: Inject one syringe SQ every 8 weeks starting 8 weeks after induction infusion. Referrals / Follow Up: Robert Beard DO [Med Staff - Correspondence Transcriber, Psychiatry] - Within 1 Month Referral Note: Hypnagogic/hypnopompic hallucination, possible depression/mood disorder. Varinder Phoenix Roxanne, DIRECTOR CLINICAL PHARMACOLOGY-C [Primary Care Provider, Family Practice] Disposition Disposition (needs filled in before D/C Order can be placed): Home, Self Care Charges/Coding Visit Charges Inpatient E&M: 31161 Disch Hosp >30min
--- NOTE | 2025-08-23 14:18 | CASEMGMT ---
Patient has order for discharge. RN CM into discuss needs at discharge. Patient denies needs or help at discharge. Patient asked this RN CM to call granddaughter Ariana. Patient had no further questions. RN CM called Ariana to update regarding discharge. Ariana had no further questions or concerns and states she will pick patient up at 3:30pm. RN CM updated patient and nursing.
--- NOTE | 2025-08-23 14:42 | PHA.DC.MC.R ---
Pharmacy [facility] has performed discharge medication reconciliation and counseling for this patient. The patient's discharge medication list was reviewed for discrepancies and discrepancies were resolved. The patient was counseled on the following discharge medications and changes in medications for homegoing were reviewed. The Reason for Use, instructions for use, and potential side effects were reviewed for all new medications. The patient's questions regarding all of their medications were answered. 1. Meclizine 12.5 mg PO TID PRN dizziness. The patient was able to verbally demonstrate an understanding of their discharge medications. The patient was counselled on new medications by pharmacy laboratory technician Marc. Medications at Discharge Home Medications ustekinumab 90 mg/mL subcutaneous syringe ([employer] Systemslara) 90 mg subcut Q8W 12 months #1 mL 06/26/24 aspirin 81 mg chewable tablet 81 mg PO BREAKFAST [facility] 30 days #30 tabs 02/19/25 meclizine 25 mg tablet (Travel-Ease (meclizine)) 12.5 mg (1/2 x 25 mg) PO TID PRN PRN Dizziness #30 tabs 08/23/25
== END 2025-08-23 15:32 | disposition home or self-care (01) | DRG 884 ==
LOC: ED 15:59 → PCU 16:27
PROVIDERS: Admitting Provider Internal Medicine; Emergency Provider Emergency Medicine; PCP Nurse Practitioner Family; Visit Provider Internal Medicine
DX: F03.92 Unspecified dementia, unspecified severity, with psychotic disturbance (principal); D64.9 Anemia, unspecified; Z66 Do not resuscitate; R44.1 Visual hallucinations; M17.0 Bilateral primary osteoarthritis of knee; M16.0 Bilateral primary osteoarthritis of hip; R29.898 Other symptoms and signs involving the musculoskeletal system; G47.59 Other parasomnia; Z90.49 Acquired absence of other specified parts of digestive tract; Z79.82 Long term (current) use of aspirin; Z79.899 Other long term (current) drug therapy; Z87.19 Personal history of other diseases of the digestive system; Z85.038 Personal history of other malignant neoplasm of large intestine
CPT/HCPCS: 36415; 70450; 70551; 72146; 80053; 81001; 82306; 82550; 82607; 83735; 84439; 84443; 84481; 85025; 94668; 97162; 97165; 97535; 97802; 99285; A4216